=== PATIENT | male | born 1940 | race Caucasian/White ===

== ENCOUNTER → 2017-04-22 | Outpatient (CLI) | payer MEDICARE ==
[~2017-04-22] MED LIST: ACTOS15 MG PO; ALLO300T2 PO; ALLP300T PO; AML5T PO; AMLO10TA82 PO; AMOX-355 PO; AMOX-358 PO; ASP81CT PO; CLPD75T PO; CPM4T PO; CRAN250C PO; EZET1TAB43 PO; EZET1TAB44 PO; GLIM4TAB PO; INDM25C PO; INDO25CA PO; INDO50CA PO; INDOMETHACIN 75 MG PO; INSU100V8; ISM60TCR PO; ISOSORBIDE; LABE300T PO; LSNP20T PO; METF1000 PO; MTF500T PO; MTF500TCR PO; NTR.4SL SL; OMEP20TA2 PO; OMG1KC PO; ONDA4TAB11 PO; PNT40TEC; PNT40TEC PO; RNT150T PO; RSG4T; SAWP1CAP PO; SITA100T PO; SITA1TAB2 PO; VITORIN; [UNRECOGNIZED DRUG - OTHER]; [UNRECOGNIZED DRUG - OTHER]
--- NOTE | 2017-04-22 16:42 | Diagnostic Imaging Report ---
EXAMINATION: Bilateral lower extremity duplex venous ultrasound. TECHNIQUE: DVT protocol. Multiple sonographic images with color Doppler and waveform interrogation were performed of the lower extremity veins, bilaterally, with compression and augmentation maneuvers. INDICATION: Bilateral leg pain. FINDINGS: The lower extremity veins from the common femoral veins to below the knee veins were examined with normal color-flow, compressibility and normal waveform demonstrated. The great saphenous vein bilaterally is patent. IMPRESSION: No evidence of DVT in either lower extremity. Dictated by: Dictated on workstation # [id number]
== END ==
LOC: RAD 15:45
PROVIDERS: ATTEND Family Medicine
DX: M79.661 Pain in right lower leg (principal); M79.662 Pain in left lower leg
CPT/HCPCS: 93970

== ENCOUNTER → 2017-06-24 | Outpatient (CLI) | payer MEDICARE ==
[~2017-06-24] MED LIST changes: +IOHEXOL 350 MG/ML 150 ML (OMNIPAQUE 350) VIAL IV ONE; +NS 100 ML (IVPB) BAG IV ONE
[2017-06-24 10:29] LABS: BLOOD UREA NITROGEN 21 MG/DL (7-18); BUN/CREATININE RATIO 18; CREATININE SERUM 1.14 MG/DL (0.60-1.30); GFR ESTIMATED > 60
--- NOTE | 2017-06-24 11:56 | Diagnostic Imaging Report ---
PROCEDURE: CT angiography of the chest with contrast. TECHNIQUE: Multiple contiguous axial images were obtained through the chest after uneventful bolus administration of intravenous contrast. Reconstructed CTA MIP acquisitions were also performed. INDICATION: Shortness of breath. FINDINGS: There is moderate opacification of the pulmonary arteries. There is breathing motion artifact also involving the lower sections in the lungs. The central pulmonary arteries demonstrate no filling defects to suggest pulmonary embolism. The segmental and subsegmental branches are generally not well evaluated on this exam due to the artifacts explained above. The thoracic aorta is normal in caliber. Post CABG changes are seen. The heart size is normal. No pericardial or pleural effusion. There is no mediastinal mass. No mediastinal or hilar lymphadenopathy is seen. No axillary lymphadenopathy is seen. The lungs demonstrate subsegmental scarring in the superior and basilar segments of the left lower lobe with no significant consolidation, mass or suspicious nodule seen otherwise. These findings are stable from 2011. Sections in the upper abdomen demonstrate diffuse hepatic steatosis and renal cysts seen in the upper pole of the left kidney. The osseous structures demonstrate degenerative change in the thoracic spine and sternotomy changes with nonunion in the upper aspect of the sternum and suggestion of bony bridging and healing of the lower sternum. Sternotomy wires are again seen. IMPRESSION: No central pulmonary embolism. Due to the degree of opacification of the pulmonary arteries and breathing motion artifact, the segmental and subsegmental branches are not well evaluated. Dictated by: Dictated on workstation # [id number]
--- NOTE | 2017-06-25 13:49 | Diagnostic Imaging Report ---
EXAMINATION: Bilateral lower extremity duplex venous ultrasound. TECHNIQUE: DVT protocol. Multiple sonographic images with color Doppler and waveform interrogation were performed of the lower extremity veins, bilaterally, with compression and augmentation maneuvers. INDICATION: Bilateral leg swelling. FINDINGS: The lower extremity veins from the common femoral veins to below the knee veins were examined with normal color-flow, compressibility and normal waveform demonstrated. The great saphenous vein bilaterally is patent. IMPRESSION: No evidence of DVT in either lower extremity. Dictated by: Dictated on workstation # [id number]
== END ==
LOC: RAD 09:57
PROVIDERS: ATTEND Nurse Practitioner Family
DX: M79.89 Other specified soft tissue disorders (principal); J44.9 Chronic obstructive pulmonary disease, unspecified
CPT/HCPCS: 36415; 71275; 82565; 84520; 93970

== ENCOUNTER 2018-04-22 08:02 | Inpatient (IN) | payer MEDICARE ==
[2018-04-22] VITALS (18 sets, daily range): BP systolic 91–171; BP diastolic 80–108
[~2018-04-22] VITALS: Ht 180.3 cm; Wt 107.1 kg
[~2018-04-22 08:02] MED LIST changes: -IOHEXOL 350 MG/ML 150 ML (OMNIPAQUE 350) VIAL IV ONE; -NS 100 ML (IVPB) BAG IV ONE
[2018-04-22] MEDS ORDERED: DEXTROSE 50% 50 ML (IMS) SYR ONE ×2 (08:07→08:59)
--- OUTSIDE RECORDS SUMMARY | 2018-04-22 08:10 | XMS REPORT | Continuity of Care Document ---
Author Author [facility] Organization [facility] Address Unknown Phone Unavailable Allergies Active Description Code Type Severity Reaction Onset Reported/Identified Relationship to Patient Clinical Status Yes carvedilol [id number] Drug Allergy Unknown N/A 02/23/2018 Medications There is no data. 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 07/21/2012 Ot V76.51 SCREEN MAL NEOP-COLON 01/01/2013 PAUL PHAN DO Ot 250.00 DIAB STEVEN WO COMPL, TYPE II OR UNSPEC TY 01/01/2013 PAUL PHAN DO Ot 257.2 TESTICULAR HYPOFUNC NEC 01/01/2013 PAUL PHAN DO Ot 268.9 VITAMIN D DEFICIENCY NOS 01/01/2013 PAUL PHAN DO Ot 272.4 HYPERLIPIDEMIA NEC/NOS 01/01/2013 PAUL PHAN DO Ot 274.9 GOUT NOS 01/01/2013 PAUL PHAN DO Ot 401.9 HYPERTENSION NOS 01/01/2013 PAUL PHAN DO Ot 413.9 ANGINA PECTORIS NEC/NOS 01/01/2013 PAUL PHAN DO Ot 414.00 CORON ATHEROSCLER NOS TYPE VESSEL, NATIV 01/01/2013 PAUL PHAN DO Ot 414.8 CHR ISCHEMIC HRT DIS NEC 01/01/2013 PAUL PHAN DO Ot 433.10 CAROTID ARTERY OCCLUSION W O CEREBRAL IN 01/01/2013 PAUL PHAN DO Ot 530.81 ESOPHAGEAL REFLUX 01/01/2013 PAUL PHAN DO Ot 715.90 OSTEOARTHROS NOS-UNSPEC 01/01/2013 PAUL PHAN DO Ot 729.5 PAIN IN LIMB 01/01/2013 PAUL PHAN DO Ot 786.59 CHEST PAIN NEC 01/01/2013 PAUL PHAN DO, Ot V45.81 AORTOCORONARY BYPASS 01/01/2013 PAUL PHAN DO, Ot V58.67 LONG-TERM (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 OF INSULIN 08/17/2013 HIEU HARKINS DO Ot 715.36 LOC OSTEOARTH NOS-L/LEG 08/17/2013 HIEU HARKINS DO Ot V57.1 PHYSICAL THERAPY NEC 09/20/2013 MILLIE HU, DHRUV Morel Ot 787.01 NAUSEA WITH VOMITING 09/20/2013 MILLIE HU, DHRUV Morel Ot 787.91 DIARRHEA 11/22/2013 PAUL PHAN DO Ot 250.00 DIAB STEVEN WO COMPL, TYPE II OR UNSPEC TY 11/22/2013 PAUL PHAN DO Ot 257.2 TESTICULAR HYPOFUNC NEC 11/22/2013 PAUL PHAN DO Ot 268.9 VITAMIN D DEFICIENCY NOS 11/22/2013 PAUL PHAN DO Ot 272.4 HYPERLIPIDEMIA NEC/NOS 11/22/2013 PAUL PHAN DO Ot 274.9 GOUT NOS 11/22/2013 PAUL PHAN DO Ot 401.9 HYPERTENSION NOS 11/22/2013 PAUL PHAN DO Ot 413.9 ANGINA PECTORIS NEC/NOS 11/22/2013 PAUL PHAN DO Ot 414.00 CORON ATHEROSCLER NOS TYPE VESSEL, NATIV 11/22/2013 PAUL PHAN DO Ot 433.10 CAROTID ARTERY OCCLUSION W O CEREBRAL IN 11/22/2013 PAUL PHAN DO Ot 536.8 STOMACH FUNCTION DIS NEC 11/22/2013 PAUL PHAN DO Ot 715.36 LOC OSTEOARTH NOS-L/LEG 11/22/2013 PAUL PHAN DO Ot 799.02 HYPOXEMIA 11/22/2013 PAUL PHAN DO Ot V45.81 AORTOCORONARY BYPASS 11/22/2013 PAUL PHAN DO Ot V45.82 PERCUTANEOUS TRANSLUM CORON ANGIOPLASTY 11/22/2013 PAUL PHAN DO Ot V58.67 LONG-TERM (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 OF INSULIN 06/13/2014 RODRIGEZ MD, DARIEN Mayes Ot 413.9 06/13/2014 RODRIGEZ MD, DARIEN Mayes Ot V57.89 06/15/2014 DARIEN RODRIGEZ MD Ot 413.9 ANGINA PECTORIS NEC/NOS 06/15/2014 RODRIGEZ MD, DARIEN Mayes Ot V57.89 REHABILITATION PROC NEC 07/25/2014 DORI AGRAWAL TRANSPORTATION ASSISTANT Ot 882.0 OPEN WOUND OF HAND 07/25/2014 DORI AGRAWAL TRANSPORTATION ASSISTANT Ot E000.8 OTHER EXTERNAL CAUSE STATUS 07/25/2014 DORI AGRAWAL TRANSPORTATION ASSISTANT Ot E906.3 ANIMAL BITE NEC 07/25/2014 DORI AGRAWAL TRANSPORTATION ASSISTANT Ot V01.5 RABIES CONTACT 07/25/2014 DORI AGRAWAL TRANSPORTATION ASSISTANT Ot V04.5 VACCIN FOR RABIES 08/12/2014 MARCO CANDELARIO DO Ot 433.30 12/03/2014 MARCO CANDELARIO DO Ot 433.30 05/08/2015 MARCO CANDELARIO DO Ot I73.9 05/12/2015 Ot 428.0 05/12/2015 Ot 440.0 05/12/2015 Ot 443.9 05/12/2015 Ot 440.0 05/12/2015 Ot 414.00 05/12/2015 Ot 530.89 05/12/2015 Ot 793.1 05/12/2015 Ot 729.5 05/12/2015 Ot 782.3 05/12/2015 Ot 564.00 05/12/2015 Ot V72.84 05/12/2015 PAUL PHAN DO Ot 327.23 05/12/2015 PAUL PHAN DO Ot 327.51 05/12/2015 EMILIE DACOSTAPAUL Fabrizio Ot 414.00 05/12/2015 EMILIE DACOSTAPAUL Fabrizio Ot 794.30 05/12/2015 JANEL HU, LUCILLE Dinh Ot 724.02 05/12/2015 ARELYNDER DO, MARCO S Ot 433.30 05/12/2015 ORENDER DO, MARCO S Ot I73.9 05/29/2015 ORENDER DO, MARCO S Ot I73.9 05/29/2015 ORENDER DO, MARCO S Ot I70.203 05/29/2015 ORENDER DO, MARCO S Ot M79.609 06/06/2015 ORENDER DO, MARCO S Ot I73.9 07/27/2015 Ot 428.0 07/27/2015 Ot 440.0 07/27/2015 Ot 443.9 07/27/2015 Ot 440.0 07/27/2015 Ot 414.00 07/27/2015 Ot 530.89 07/27/2015 Ot 793.1 07/27/2015 Ot 729.5 07/27/2015 Ot 782.3 07/27/2015 Ot 564.00 07/27/2015 Ot V72.84 07/27/2015 EMILIE DACOSTA PAUL Fabrizio Ot 327.23 07/27/2015 EMILIE DACOSTA PAUL Fabrizio Ot 327.51 07/27/2015 EMILIE DACOSTAPAUL Fabrizio Ot 414.00 07/27/2015 EMILIE DACOSTA PAUL Fabrizio Ot 794.30 07/27/2015 LUCILLE ISLAS MD Ot 724.02 07/27/2015 ARELYNDER DO, MARCO S Ot 433.30 07/27/2015 ARELYNDER DO, MARCO S Ot I73.9 07/27/2015 ORENDER DO, MARCO S Ot I70.213 08/31/2015 Ot 428.0 08/31/2015 Ot 440.0 08/31/2015 Ot 443.9 08/31/2015 Ot 440.0 08/31/2015 Ot 414.00 08/31/2015 Ot 530.89 08/31/2015 Ot 793.1 08/31/2015 Ot 729.5 08/31/2015 Ot 782.3 08/31/2015 Ot 564.00 08/31/2015 Ot V72.84 08/31/2015 PHAN DOPAUL Ot 327.23 08/31/2015 PHAN DO, PAUL Dinh Ot 327.51 08/31/2015 PHAN DO, PAUL Dinh Ot 414.00 08/31/2015 PHAN DO, PAUL Dinh Ot 794.30 08/31/2015 LUCILLE ISLAS MD Ot 724.02 08/31/2015 ORENDER DO, MARCO S Ot 433.30 08/31/2015 ORENDER DO, MARCO S Ot I73.9 08/31/2015 ORENDER DO, MARCO S Ot I70.213 08/31/2015 ORENDER DO, MARCO S Ot M25.561 08/31/2015 ORENDER DO, MARCO S Ot M25.562 09/01/2015 ORENDER DO, MARCO S Ot M25.561 09/01/2015 ORENDER DO, MARCO S Ot M25.562 09/04/2015 ORENDER DO, MARCO S Ot M25.561 PAIN IN RIGHT KNEE 09/04/2015 ORENDER DO, MARCO S Ot M25.562 PAIN IN LEFT KNEE 09/20/2015 EARNEST LO TRANSPORTATION ASSISTANT Ot J44.9 10/02/2015 EARNEST LO TRANSPORTATION ASSISTANT Ot J44.9 10/25/2015 ORENDER DO, MARCO S Ot I70.213 ATHSCL [place] ARTERIES OF EXTRM W INTRMT 12/29/2015 ARAM VASQUEZ MD Ot Z47.1 AFTERCARE FOLLOWING JOINT REPLACEMENT IRENE 12/29/2015 ARAM VASQUEZ MD Ot Z96.651 PRESENCE OF RIGHT ARTIFICIAL KNEE JOINT 01/11/2016 ARAM VASQUEZ MD Ot Z47.1 AFTERCARE FOLLOWING JOINT REPLACEMENT IRENE 01/11/2016 ARAM VASQUEZ MD Ot Z96.651 PRESENCE OF RIGHT ARTIFICIAL KNEE JOINT 01/23/2016 ARAM VASQUEZ MD Ot Z47.1 AFTERCARE FOLLOWING JOINT REPLACEMENT IRENE 01/23/2016 ARAM VASQUEZ MD Ot Z96.651 PRESENCE OF RIGHT ARTIFICIAL KNEE JOINT 02/11/2016 BRANDEN MEDINA Ot S81.852A OPEN BITE, LEFT LOWER LEG, INITIAL ENCOU 02/11/2016 RON TORRESBRANDEN Ot W54.0XXA BITTEN BY DOG, INITIAL ENCOUNTER 02/11/2016 RON MELISSABRANDEN Ot Y99.8 OTHER EXTERNAL CAUSE STATUS 02/11/2016 RON TORRESBRANDEN Ot Z23 ENCOUNTER FOR IMMUNIZATION 02/13/2016 RON TORRESBRANDEN Ot S81.852A OPEN BITE, LEFT LOWER LEG, INITIAL ENCOU 02/13/2016 RON MELISSABRANDEN Ot W54.0XXA BITTEN BY DOG, INITIAL ENCOUNTER 02/13/2016 RON MELISSABRANDEN Ot Y99.8 OTHER EXTERNAL CAUSE STATUS 02/13/2016 RON MELISSABRANDEN Ot Z23 ENCOUNTER FOR IMMUNIZATION 04/22/2017 MARCO CANDELARIO DO S Ot R22.42 LOCALIZED SWELLING, MASS AND LUMP, LEFT 04/22/2017 Ot 729.5 PAIN IN LIMB 04/22/2017 Ot 782.3 EDEMA 04/22/2017 Ot 564.00 UNSPEC CONSTIPATION 04/22/2017 Ot V72.84 EXAM PRE- OPERATIVE NOS 04/22/2017 PAUL PHAN DO Ot 327.23 OBSTRUCTIVE SLEEP APNEA (ADULT) (PEDIATR 04/22/2017 PAUL PHAN DO Ot 327.51 PERIODIC LIMB MOVEMENT DISORDER 04/22/2017 PAUL PHAN DO Ot 414.00 CORON ATHEROSCLER NOS TYPE VESSEL, NATIV 04/22/2017 PAUL PHAN DO Ot 794.30 ABN CARDIOVASC STUDY NOS 04/22/2017 LUCILLE ISLAS MD Ot 724.02 SPINAL STENOSIS, LUMBAR REG, W/OUT NEURO 04/22/2017 MARCO CANDELARIO DO S Ot 433.30 MULT BILTRAL ARTERY OCCLUSION WO CEREBRA 04/22/2017 MARCO CANDELARIO DO S Ot I73.9 PERIPHERAL VASCULAR DISEASE, UNSPECIFIED 04/22/2017 MARCO CANDELARIO DO S Ot I70.213 ATHSCL [place] ARTERIES OF EXTRM W INTRMT 04/22/2017 EARNEST LO APRN Ot J44.9 CHRONIC OBSTRUCTIVE PULMONARY DISEASE, U 04/22/2017 MARCO CANDELARIO DO S Ot R22.42 LOCALIZED SWELLING, MASS AND LUMP, LEFT 05/14/2017 ORENDER DO, MARCO S Ot M79.661 PAIN IN RIGHT LOWER LEG 05/14/2017 GUILLE CANDELARIO DOLINE S Ot M79.662 PAIN IN LEFT LOWER LEG 05/28/2017 GUILLE CANDELARIO DOLINE S Ot M79.661 PAIN IN RIGHT LOWER LEG 05/28/2017 GUILLE CANDELARIO DOLINE S Ot M79.662 PAIN IN LEFT LOWER LEG 06/24/2017 IVAN AMIN APRN Ot M79.89 OTHER SPECIFIED SOFT TISSUE DISORDERS 06/24/2017 IVAN AMIN APRN Ot M79.89 OTHER SPECIFIED SOFT TISSUE DISORDERS 06/24/2017 Ot 729.5 PAIN IN LIMB 06/24/2017 Ot 782.3 EDEMA 06/24/2017 Ot 564.00 UNSPEC CONSTIPATION 06/24/2017 Ot V72.84 EXAM PRE- OPERATIVE NOS 06/24/2017 PAUL PHAN DO Ot 327.23 OBSTRUCTIVE SLEEP APNEA (ADULT) (PEDIATR 06/24/2017 PAUL PHAN DO Ot 327.51 PERIODIC LIMB MOVEMENT DISORDER 06/24/2017 PAUL PHAN DO Ot 414.00 CORON ATHEROSCLER NOS TYPE VESSEL, NATIV 06/24/2017 PAUL PHAN DO Ot 794.30 ABN CARDIOVASC STUDY NOS 06/24/2017 JANEL HU, LUCILLE Dinh Ot 724.02 SPINAL STENOSIS, LUMBAR REG, W/OUT NEURO 06/24/2017 GUILLE CANDELARIO DOLINE S Ot 433.30 MULT BILTRAL ARTERY OCCLUSION WO CEREBRA 06/24/2017 GUILLE CANDELARIO DOLINE S Ot I73.9 PERIPHERAL VASCULAR DISEASE, UNSPECIFIED 06/24/2017 GUILEL CANDELARIO DOLINE S Ot I70.213 ATHSCL [place] ARTERIES OF EXTRM W INTRMT 06/24/2017 EARNEST LO APRN Ot J44.9 CHRONIC OBSTRUCTIVE PULMONARY DISEASE, U 06/24/2017 GUILLE CANDELARIO DOLINE S Ot M79.661 PAIN IN RIGHT LOWER LEG 06/24/2017 GUILLE CANDELARIO DOLINE S Ot M79.662 PAIN IN LEFT LOWER LEG 06/24/2017 IVAN AMIN APRN Ot M79.89 OTHER SPECIFIED SOFT TISSUE DISORDERS 06/25/2017 BRENNAN, IVAN E TRANSPORTATION ASSISTANT Ot J44.9 CHRONIC OBSTRUCTIVE PULMONARY DISEASE, U 06/25/2017 IVAN AMIN E TRANSPORTATION ASSISTANT Ot M79.89 OTHER SPECIFIED SOFT TISSUE DISORDERS 07/24/2017 IVAN AMIN TRANSPORTATION ASSISTANT Ot J44.9 CHRONIC OBSTRUCTIVE PULMONARY DISEASE, U 07/24/2017 IVAN AMIN E TRANSPORTATION ASSISTANT Ot M79.89 OTHER SPECIFIED SOFT TISSUE DISORDERS 07/30/2017 IVAN AMIN TRANSPORTATION ASSISTANT Ot J44.9 CHRONIC OBSTRUCTIVE PULMONARY DISEASE, U 07/30/2017 IVAN AMIN E TRANSPORTATION ASSISTANT Ot M79.89 OTHER SPECIFIED SOFT TISSUE DISORDERS 02/24/2018 NINAJAYESH Fowler DO Ot E11.9 TYPE 2 DIABETES MELLITUS WITHOUT COMPLIC 02/24/2018 JAYESH WOOD DO Ot I10 ESSENTIAL (PRIMARY) HYPERTENSION 02/24/2018 JAYESH WOOD DO Ot I25.10 ATHSCL HEART DISEASE OF [place] CORONARY 02/24/2018 JAYESH WOOD DO Ot J44.9 CHRONIC OBSTRUCTIVE PULMONARY DISEASE, U 02/24/2018 JAYESH WOOD DO Ot K21.9 GASTRO-ESOPHAGEAL REFLUX DISEASE WITHOUT 02/24/2018 JAYESH WOOD DO Ot M25.512 PAIN IN LEFT SHOULDER 02/24/2018 JAYESH WOOD DO Ot Z79.82 MOLDED PARTS INSPECTOR (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 OF ASPIRIN 02/24/2018 JAYESH WOOD DO Ot Z79.84 MOLDED PARTS INSPECTOR (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 OF ORAL HYPOGLYC 02/24/2018 JAYESH WOOD DO Ot Z85.51 PERSONAL HISTORY OF MALIGNANT NEOPLASM O 02/24/2018 JAYESH WOOD DO Ot Z85.828 PERSONAL HISTORY OF OTHER MALIGNANT NEOP 02/24/2018 JAYESH WOOD DO Ot Z87.891 PERSONAL HISTORY OF NICOTINE DEPENDENCE 02/24/2018 JAYESH WOOD DO Ot Z88.8 ALLERGY STATUS TO OTH DRUG/MEDS/BIOL SUB 02/24/2018 JAYESH WOOD DO Ot Z95.1 PRESENCE OF AORTOCORONARY BYPASS GRAFT 02/25/2018 JAYESH WOOD DO Ot E11.9 TYPE 2 DIABETES MELLITUS WITHOUT COMPLIC 02/25/2018 TATO WOOD DOA Vaishali Ot I10 ESSENTIAL (PRIMARY) HYPERTENSION 02/25/2018 JAYESH WOOD DO Ot I25.10 ATHSCL HEART DISEASE OF [place] CORONARY 02/25/2018 JAYESH WOOD DO Ot J44.9 CHRONIC OBSTRUCTIVE PULMONARY DISEASE, U 02/25/2018 JAYESH WOOD DO Ot K21.9 GASTRO-ESOPHAGEAL REFLUX DISEASE WITHOUT 02/25/2018 JAYESH WOOD DO Ot M25.512 PAIN IN LEFT SHOULDER 02/25/2018 NINA DACOSTA JAYESH Vaishali Ot Z79.82 DETENTION (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 OF ASPIRIN 02/25/2018 NINA DACOSTA JAYESH K Ot Z79.84 DETENTION (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 OF ORAL HYPOGLYC 02/25/2018 NINA DACOSTA JAYESH K Ot Z85.51 PERSONAL HISTORY OF MALIGNANT NEOPLASM O 02/25/2018 NINA DACOSTA JAYESH K Ot Z85.828 PERSONAL HISTORY OF OTHER MALIGNANT NEOP 02/25/2018 NINA DACOSTA JAYESH K Ot Z87.891 PERSONAL HISTORY OF NICOTINE DEPENDENCE 02/25/2018 NINA DACOSTA JAYESH Vaishali Ot Z88.8 ALLERGY STATUS TO OTH DRUG/MEDS/BIOL SUB 02/25/2018 NINA DACOSTA JAYESH Vaishali Ot Z95.1 PRESENCE OF AORTOCORONARY BYPASS GRAFT 03/21/2018 NINA DACOSTA JAYESH Vaishali Ot E11.9 TYPE 2 DIABETES MELLITUS WITHOUT COMPLIC 03/21/2018 NINA DACOSTA JAYESH Vaishali Ot I10 ESSENTIAL (PRIMARY) HYPERTENSION 03/21/2018 NINA DACOSTA JAYESH Tom Ot I25.10 ATHSCL HEART DISEASE OF [place] CORONARY 03/21/2018 JAYESH WOOD DO Ot J44.9 CHRONIC OBSTRUCTIVE PULMONARY DISEASE, U 03/21/2018 JAYESH WOOD DO Ot K21.9 GASTRO-ESOPHAGEAL REFLUX DISEASE WITHOUT 03/21/2018 NINA DACOSTA JAYESH oTm Ot M25.512 PAIN IN LEFT SHOULDER 03/21/2018 NINA DACOSTA JAYESH Vaishali Ot Z79.82 DETENTION (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 OF ASPIRIN 03/21/2018 NINA DACOSTAJAYESH Ot Z79.84 MOLDED PARTS INSPECTOR (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 OF ORAL HYPOGLYC 03/21/2018 NINA DACOSTA JAYESH K Ot Z85.51 PERSONAL HISTORY OF MALIGNANT NEOPLASM O 03/21/2018 NINA TATOA K Ot Z85.828 PERSONAL HISTORY OF OTHER MALIGNANT NEOP 03/21/2018 NINA , JAYESH Tom Ot Z87.891 PERSONAL HISTORY OF NICOTINE DEPENDENCE 03/21/2018 JAYESH WOOD DO Ot Z88.8 ALLERGY STATUS TO OTH DRUG/MEDS/BIOL SUB 03/21/2018 JAYESH WOOD DO Ot Z95.1 PRESENCE OF AORTOCORONARY BYPASS GRAFT Procedures There is no data. Results There is no data. Encounters ACCT No. Visit Date/Time Discharge Status Pt. Type Provider Facility Loc./Unit Complaint [id number] 02/23/2018 23:17:00 02/24/2018 02:38:00 DIS Emergency JAYESH WOOD DO [facility] ER CP [id number] 07/02/2017 14:15:00 07/02/2017 23:59:59 CLS Preadmit IVAN AMIN TRANSPORTATION ASSISTANT [facility] RT J44.9 COPD [id number] 06/24/2017 09:57:00 06/24/2017 23:59:59 CLS Outpatient IVAN AMIN TRANSPORTATION ASSISTANT [facility] RAD J44.9 COPD [id number] 06/24/2017 09:39:00 06/24/2017 23:59:59 CLS Preadmit IVAN AMIN TRANSPORTATION ASSISTANT [facility] RAD M79.89 LEG SWELLING [id number] 04/22/2017 15:45:00 04/22/2017 23:59:59 CLS Outpatient MARCO CANDELARIO DO S [facility] RAD R UPPER THIGH PAIN , L LOWER LEG REDNESS [id number] 02/11/2016 16:55:00 02/11/2016 18:26:00 DIS Emergency BRANDEN MEDINA [facility] ER DOG BITE [id number] 01/15/2016 10:19:00 01/23/2016 15:58:00 DIS Outpatient ARAM VASQUEZ MD [facility] REHAB S/P R TKR [id number] 08/08/2015 08:52:00 09/04/2015 09:38:00 DIS Outpatient MARCO CANDELARIO DO [facility] REHAB BILATERAL KNEE PAIN; INSTABILITY IN R KNEE [id number] 08/31/2015 12:03:00 08/31/2015 23:59:59 CLS Outpatient EARNEST LO TRANSPORTATION ASSISTANT [facility] RAD COUGH,WHEEZING,COPD [id number] 05/12/2015 11:58:00 05/12/2015 23:59:59 CLS Outpatient MARCO CANDELARIO DO S [facility] RAD LEG PAIN WITH DECREASED JOON [id number] 05/04/2015 15:11:00 05/04/2015 23:59:59 CLS Outpatient MARCO CANDELARIO DO S [facility] RAD CLAUDICATION [id number] 08/11/2014 09:59:00 08/11/2014 23:59:59 CLS Outpatient MARCO CANDELARIO DO S [facility] RAD CAROTID ARTERY STENOSIS [id number] 07/25/2014 17:02:00 07/25/2014 18:25:00 DIS Emergency DORI AGRAWAL TRANSPORTATION ASSISTANT [facility] ER ANIMAL BITE RT INDEX FINGER [id number] 06/15/2014 08:32:00 06/15/2014 12:06:00 DIS Outpatient RODRIGEZ MD, DARIEN Mayes [facility] CR STABLE ANGINA [id number] 03/18/2014 09:37:00 03/18/2014 23:59:59 CLS Outpatient LUCILLE ISLAS MD [facility] RAD LUMBAR STENOSIS [id number] 11/21/2013 07:48:00 11/22/2013 12:15:00 DIS Inpatient PAUL PHAN DO [facility] ICU CHEST PAIN [id number] 11/15/2013 06:29:00 11/15/2013 23:59:59 CLS Outpatient PAUL PHAN DO [facility] CARD CAD [id number] 09/20/2013 14:47:00 09/20/2013 17:58:00 DIS Emergency DHRUV PINTO MD [facility] ER VOMITING [id number] 08/11/2013 09:00:00 08/17/2013 14:05:00 DIS Outpatient HIEU HARKINS DO [facility] REHAB DJD R KNEE [id number] 03/11/2013 20:00:00 03/11/2013 23:59:59 CLS Outpatient PAUL PHAN DO [facility] SLEEP TORRIE [id number] 12/31/2012 13:17:00 01/01/2013 12:05:00 DIS Inpatient PAUL PHAN DO [facility] CSD CHEST PAIN [id number] 05/12/2015 11:56:00 Document Registration [id number] 07/21/2012 06:49:00 Document Registration [id number] 07/16/2012 07:20:00 Document Registration [id number] 06/22/2012 16:51:00 Document Registration [id number] 03/11/2012 20:10:00 Document Registration [id number] 02/26/2012 11:53:00 Document Registration [id number] 01/18/2011 08:01:00 Document Registration [id number] 12/31/2010 09:35:00 Document Registration [id number] 12/31/2010 08:53:00 Document Registration [id number] 12/05/2010 08:08:00 Document Registration [id number] 11/21/2010 11:23:00 Document Registration [id number] 10/26/2010 10:55:00 Document Registration [id number] 04/11/2017 12:25:00 04/11/2017 23:59:59 CLS Outpatient PAUL PHAN DO [facility] [id number] 04/06/2018 11:16:43 04/06/2018 23:59:59 CLS Outpatient [id number] 08/13/2014 17:51:14 ACT Document Registration
[2018-04-22] MEDS ORDERED: NS IV 1000 ML 1,000 ML ONE ×2 (08:17→08:29)
[2018-04-22] MEDS ORDERED: NS IV 1000 ML 1,000 ML IV SCH (08:20)
[2018-04-22] MEDS ORDERED: ASPIRIN 81 MG CHEW (CHILDREN'S ASA) ONE (08:25)
[2018-04-22] MEDS ORDERED: HEParin (CATH LAB) 2,000 ML IV ONE (08:29)
[2018-04-22] MEDS ORDERED: HEParin 1000 UNIT/ML (10ML VIAL) FOR BOLUS ONE (08:29)
[2018-04-22] MEDS ORDERED: fentaNYL INJECTION 100 MCG/2 ML AMP ONE (08:29)
[2018-04-22] MEDS ORDERED: NITRO DRIP 25000 MCG/D5W 250 ML IV ONE (08:29)
[2018-04-22] MEDS ORDERED: LIDOCAINE 1% INJ 20 ML 20 ML VIAL ONE (08:29)
[2018-04-22] MEDS ORDERED: MIDAZOLAM 5 MG/5 ML (VERSED) VIAL ONE (08:29)
--- NOTE | 2018-04-22 08:29 | ED General ---
General Stated Complaint: SWEATING;WEAKNESS Source of Information: Patient, Family (son), Spouse Exam Limitations: No Limitations History of Present Illness Date Seen by Provider: Apr 22, 2018 Time Seen by Provider: 08:06 Initial Comments Patient presents to the ER by private conveyance with his and son and chief complaint of weakness sweating and all this came on about 30 minutes ago. He says he had just taken his tradjenta, 38 units and a Martinez bar as he typically does. He also uses glimepiride. He says he usually takes his insulin calls her to noon but today he woke up on time and took it this morning which is unusual for him. He checked his blood sugar is 105 prior to taking the insulin. In the ER it was 43. He is denying any chest pain shortness of breath cough fevers chills runny nose earaches nausea vomiting diarrhea constipation. History of four-vessel CABG in 2001 and 3 stents since then followed by Dr. Ruiz in [place], [place]. Allergies and Home Medications Allergies Coded Allergies: carvedilol (Verified Allergy, Unknown, 02/23/18) Home Medications Amlodipine Besylate 10 Mg Tablet, 10 MG PO HS, (Reported) Amoxicillin/Clavulanate K 1 Each Tablet, 1 TAB PO BID Prescribed by: DORI AGRAWAL on 07/25/141747 Amoxicillin/Potassium Clav 1 Each Tablet, 1 EACH PO BID Prescribed by: BRANDEN VELASQUEZ on 02/11/168 Aspirin 81 Mg Tablet, 81 MG PO HS, (Reported) Clopidogrel 75 Mg Tablet, 75 MG PO DAILY, (Reported) Ezetimibe/Simvastatin 1 Each Tablet, 1 TAB PO QOD @ HS, (Reported) Ezetimibe/Simvastatin 1 Each Tablet, 1 TAB PO QOD @ HS, (Reported) Glimepiride 4 Mg Tablet, 4 MG PO BID, (Reported) Indomethacin 50 Mg Capsule, 50 MG PO HS, (Reported) TAKES 75MG TAB IN THE MORNING AND 50MG CAP IN THE EVENING Isosorbide Mononitrate 60 Mg Tab.sr.24h, 60 MG PO BID, (Reported) Lisinopril 20 Mg Tablet, 20 MG PO BID, (Reported) Metformin Hcl 500 Mg Tablet, 500 MG PO BID, (Reported) Nitroglycerin 0.4 Mg Tab, 0 SL PRN, (Reported) 1 TAB EVERY 5 MINUTES X 3 DOSES NEEDED FOR CHEST PAIN [place] 3 Polyunsat Fatty Acids 1,000 Mg Cap, 1,000 MG PO DAILY, (Reported) Omeprazole 20 Mg Tablet.dr, 20 MG PO DAILY, (Reported) Pantoprazole Sodium 40 Mg Tablet.dr, 40 MG PO DAILY@0700 Prescribed by: PAUL PHAN on 01/01/13 1109 Ranitidine Hcl 150 Mg Tablet, 150 MG PO HS, (Reported) TAKES OMEPRAZOLE IN THE MORNING AND RANITIDINE IN THE EVENING Sawpalmtofrtxt/Zinc Picolinate 1 Each Capsule, 1 CAP PO DAILY, (Reported) Patient Home Medication List Home Medication List Reviewed: Yes Review of Systems Review of Systems Constitutional: No chills; diaphoresis; No fever; malaise, weakness EENTM: No ear discharge, No hearing loss, No ear pain Respiratory: No cough, No dyspnea on exertion Cardiovascular: No chest pain, No edema; Hx of Intervention; No palpitations Gastrointestinal: No abdominal pain, No constipation, No diarrhea Genitourinary: No decreased output, No discharge Musculoskeletal: No back pain, No joint pain Past Ovxmmbe-Tqffuw-Tjdnxd Hx Patient Social History Alcohol Use: Denies Use Recreational Drug Use: No Smoking Status: Former Smoker Type Used: Cigarettes Former Smoker, Quit: Jul 07, 1972 Recent Hopitalizations: No Immunizations Up To Date Tetanus Booster (TDap): Unknown PED Vaccines UTD: No Date of Pneumonia Vaccine: May 07, 2011 Date of Influenza Vaccine: May 07, 2013 Seasonal Allergies Seasonal Allergies: No Past Medical History Surgeries: Yes (SURGERY FOR BLADDER CANCER; CARDIAC CATHS-STENTS X 2 AND CABG) Appendectomy, Bladder Surgery, Cardiac, CABG, Coronary Stent, Gallbladder Respiratory: Yes (O2 AT HS) Sleep Apnea, COPD Currently Using CPAP: No Currently Using BIPAP: No Cardiac: Yes Coronary Artery Disease, Heart Attack, High Cholesterol, Hypertension Neurological: No Reproductive Disorders: No Genitourinary: Yes (BLADDER CANCER) Benign Prostatic Hyperpl Gastrointestinal: Yes (GASTRITIS) Gastroesophageal Reflux, Ulcer Musculoskeletal: Yes (TORN ROTATOR CUFF--NO SURGERY) Arthritis, Gout Endocrine: Yes Diabetes, Insulin dep Cancer: Yes Bladder, Skin Did You Recieve Any Treatments: Yes What Type of Treatment Did You: Surgical Intervention Psychosocial: No Integumentary: Yes (skin cancers) Pruritis Blood Disorders: No Adverse Reaction/Blood Tranf: No Family Medical History Cancer Cataract Chest pain Family history: Cardiovascular disease Family history: Hypertension Visual impairment No Family History of: Abdominal aortic aneurysm Brad's disease Alcoholism Aphasia Cancer of colon Congenital heart disease Congestive heart failure Cystic fibrosis Dementia Dysphagia Family history: Allergy Family history: Alzheimer's disease Family history: Arthritis Family history: Asthma Family history: Breast disease Family history: Coronary thrombosis Family history: Diabetes mellitus Family history: Gastrointestinal disease Family history: Glaucoma Family history: Osteoporosis Family history: Thyroid disorder Headache Hearing loss Heart disease Hereditary disease History of - anemia History of - disorder History of - respiratory disease History of drug abuse Human immunodeficiency virus (HIV) seropositivity Hypercholesterolemia Infertile Kidney disease Malignant neoplasm of lung Myocardial infarction Parkinson's disease Prostate cancer Psychotic disorder Seizure disorder Stroke Tuberculosis No Pertinent Family Hx Physical Exam Vital Signs Capillary Refill : Height, Weight, BMI Height: 5'11.00" Weight: 230lbs. 0.0oz. 104.819977or; 34.55 BMI Method:Stated General Appearance: Anxious, Mild Distress Eyes: Bilateral Eye Normal Inspection, Bilateral Eye PERRL, Bilateral Eye EOMI HEENT: PERRL/EOMI, TMs Normal, Normal ENT Inspection, Pharynx Normal, Moist Mucous Membranes Neck: Full Range of Motion, Normal Inspection, Non Tender, Supple Respiratory: Chest Non Tender, Lungs Clear, Normal Breath Sounds, No Accessory Muscle Use, No Respiratory Distress Cardiovascular: Regular Rate, Rhythm, No Edema, Normal Peripheral Pulses Gastrointestinal: Normal Bowel Sounds, Non Tender, Soft Progress/Results/Core Measures Suspected Sepsis SIRS Temperature: Pulse: Respiratory Rate: Blood Pressure / Mean: Results/Orders Lab Results Laboratory Tests Test 04/22/18 08:09 Range/Units Glucometer 43 *L 70-110 MG/DL My Orders Orders - ZAKIYA HORTON D50w (Emergency) Syringe (Dextrose 50% 5 (04/22/18 08:07) Cbc With Automated Diff (04/22/18 08:16) Comprehensive Metabolic Panel (04/22/18 08:16) Troponin I (04/22/18 08:16) Ua Culture If Indicated (04/22/18 08:16) Chest 1 View, Ap/Pa Only (04/22/18 08:16) Ekg Tracing (04/22/18 08:16) Accucheck Stat ONCE (04/22/18 08:16) D50w (Emergency) Syringe (Dextrose 50% 5 (04/22/18 08:30) Saline Lock/Iv-Start (04/22/18 08:20) Ns Iv 1000 Ml (Sodium Chloride 0.9%) (04/22/18 08:20) Ns Iv 1000 Ml (Sodium Chloride 0.9%) (04/22/18 08:17) Aspirin Chewable Tablet (Baby Aspirin Ch (04/22/18 08:25) Magnesium (04/22/18 08:31) Cardiac Profile 1 (04/22/18 08:31) Myoglobin Serum (04/22/18 08:31) Protime With Inr (04/22/18:) Partial Thromboplastin Time (04/22/18:31) O2 (04/22/18:31) Monitor-Rhythm Ecg Trace Only (04/22/18:31) Lipid Panel (04/23/18 06:00) Aspirin Chewable Tablet (Baby Aspirin Ch (04/22/18 08:45) Saline Lock/Iv-Start (04/22/18 08:31) Ticagrelor Tablet (Brilinta Tablet) (04/22/18 08:31) Heparin Injection (Heparin Injection) (04/22/18 08:45) Lidocaine 1% Inj 20 Ml (Xylocaine 1% Inj (04/22/18 08:29) Fentanyl Injection (Sublimaze Injection (04/22/18 08:29) Midazolam Injection (Versed Injection) (04/22/18 08:29) Heparin (Bolus Per Protocol) (Heparin (B (04/22/18 08:29) Ns Iv 1000 Ml (Sodium Chloride 0.9%) (04/22/18 08:29) Heparin ([facility]) (Heparin ([facility])) (04/22/18 08:29) Nitro Drip 87704 Mcg/D5w (Nitroglycerin (04/22/18 08:29) Saline Lock/Iv-Start (04/22/18 08:42) D5 Ns 1000 Ml Iv Solution (Dextrose 5%/0 (04/22/18 08:42) Vital Signs/I&O Capillary Refill : Progress Note : Time: 08:48 Progress Note Initial suspicion was atypical coronary versus blood sugar. Her blood sugar is obtained showing 43 on arrival so we initiated an IV gave half an amp of D50 and held off giving anything by mouth because of the suspicion of coronary sources. EKG did confirm our suspicion there was a inferior WA. Aspirin, Brilinta and heparin were ordered and given on the way to the catheter lab. Patient's blood pressure is low so liter of fluids was ordered as well as some D5 normal saline ordered 100 cc an hour to maintain blood sugars while he goes to [facility]. ECG Initial ECG Impression Date: Apr 22, 2018 Initial ECG Impression Time: 08:23 Initial ECG Rate: 122 Initial ECG Rhythm: A Fib/Flutter Initial ECG Intervals: QT (513) Initial ECG Impression: Atrial Fibrillation Initial ECG Comparisson: Changed Comment Suspect inferior STEMI with new onset atrial fibrillation. There is ST depression in lateral leads V2 V3 V4 and V5 with some elevation of the ST segment in lead 3, aVR and depression in leads 1 and aVL. Consults Consults : Consulting Physician: Pushpa CHAVARRIA MD Consults Notes Discussed the case and findings suspicious for inferior WA and orders for Brilinta, heparin were given and he will activate the catheter lab. Departure Communication (Admissions) Time/Spoke to Admitting Phy: 08:53 megan took pt to [facility] laboratory diagnostician, Impression Primary Impression: Myocardial infarction acute Qualified Codes: I21.19 - ST elevation (STEMI) myocardial infarction involving other coronary artery of inferior wall Additional Impressions: Atrial fibrillation Qualified Codes: I48.91 - Unspecified atrial fibrillation Hypoglycemia due to type 2 diabetes mellitus Disposition: 01 HOME, SELF-CARE Condition: Stable Admissions Decision to Admit Reason: Admit from ER (General) Decision to Admit/Date: Apr 22, 2018 Time/Decision to Admit Time: 08:53 Departure-Patient Inst. Referrals: PAUL PHAN DO (PCP/Family) Primary Care Physician Copy Copies To 1: PAUL PHAN TITUS J Apr 22, 2018 08:29
[2018-04-22] MEDS ORDERED: DEXTROSE 50% 50 ML (IMS) SYR IV ONE (08:30)
[2018-04-22] MEDS ORDERED: TICAGRELOR 90 MG TABLET (BRILINTA) PO ONE ×2 (08:31→08:43)
[2018-04-22] MEDS ORDERED: D5 NS 1000 ML IV SOLUTION 1,000 ML IV ONE (08:42)
[2018-04-22] MEDS ORDERED: ASPIRIN 81 MG CHEW (CHILDREN'S ASA) PO ONE (08:45)
--- NOTE | 2018-04-22 08:47 | History & Physicial-Cardiolgy ---
HPI-Cardiology Cardiology Consultation: Date of Consultation 04/22/18 Date of Admission Attending Physician Pushpa Ramirez MD Admitting Physician Yuan Andrew DO Consulting Physician Pushpa RAMIREZ MD HPI: Time Seen by a Provider: 08:47 Chief Complaint: Sweating, nausea, chest tightness This is a 77-year-old gentleman who has history of CABG in 2001, PCI with stents in 2002. He follows with Dr. Salinas and cardiology at [facility] in [place]. He does not have previous history of atrial fibrillation. He presented with complains of nausea, sweating, chest tightness. No significant shortness of breath. EKG showed atrial fibrillation with rapid ventricular rate , inferior ST elevation as well as posterior ST elevation. He was emergently taken to the [facility]. Review of Systems-Cardiology Review of Systems Constitutional: As described under HPI; No As described under HPI, No no symptoms reported, No chills, No fever, No lightheadedness; other (sweating) Eyes: No As described under HPI, No no symptoms reported, No blindness, No blurred vision, No contact lenses, No drainage, No decreased acuity, No foreign body sensation, No pain, No vision change Ears/Nose/Throat: No As described under HPI, No no symptoms reported, No chronic hearing loss, No ear discharge, No ear pain, No nasal drainage, No ulcerations Respiratory: No no symptoms reported; As described under HPI; No As described under HPI, No cough, No orthopnea, No shortness of breath, No SOB with excertion Cardiovascular: No no symptoms reported; As described under HPI; No As described under HPI; chest pain; No edema, No irregular heart rate, No lightheadedness, No palpitations Gastrointestinal: No no symptoms reported, No As described under HPI, No abdomen distended, No abdominal pain, No blood streaked bowels, No constipation , No diarrhea, No nausea, No vomiting; nausea/vomiting/diarrhea; No stool coloration changes Genitourinary: No As described under HPI, No burning, No dysuria, No discharge , No frequency, No flank pain, No hematuria, No urgency Skin: No rash, No skin related problems, No ulcerations Psychiatric/Neurological: No anxiety, No depression, No seizure, No focal weakness, No syncope Hematologic: No bleeding abnormalities NXH-Ewuhwe-Syyztn Hx Patient Social History Type Used: Cigarettes Recent Foreign Travel: No Recent Infectious Disease Expo: No Hospitalization with Isolation: Denies Immunizations Up To Date Tetanus Booster (TDap): Unknown Date of Pneumonia Vaccine: May 07, 2011 Date of Influenza Vaccine: May 07, 2013 Past Medical History PMH As described under Assessment. Family Medical History Family History: Cancer Cataract Chest pain Family history: Cardiovascular disease Family history: Hypertension Visual impairment No Family History of: Abdominal aortic aneurysm Brad's disease Alcoholism Aphasia Cancer of colon Congenital heart disease Congestive heart failure Cystic fibrosis Dementia Dysphagia Family history: Allergy Family history: Alzheimer's disease Family history: Arthritis Family history: Asthma Family history: Breast disease Family history: Coronary thrombosis Family history: Diabetes mellitus Family history: Gastrointestinal disease Family history: Glaucoma Family history: Osteoporosis Family history: Thyroid disorder Headache Hearing loss Heart disease Hereditary disease History of - anemia History of - disorder History of - respiratory disease History of drug abuse Human immunodeficiency virus (HIV) seropositivity Hypercholesterolemia Infertile Kidney disease Malignant neoplasm of lung Myocardial infarction Parkinson's disease Prostate cancer Psychotic disorder Seizure disorder Stroke Tuberculosis Allergies and Home Medications Allergies Coded Allergies: carvedilol (Verified Allergy, Unknown, 04/22/18) Home Medications Amlodipine Besylate 10 Mg Tablet, 10 MG PO HS, (Reported) Ascorbate Calcium 500 Mg Tablet, 500 MG PO DAILY, (Reported) Aspirin 81 Mg Tablet.dr, 81 MG PO DAILY, (Reported) Calcium Carb/Mag Ox/Zinc Sulf 1 Each Tablet, 1 TAB PO DAILY, (Reported) Chlordiazepoxide HCl 10 Mg Capsule, 10 MG PO BID PRN for ANXIETY, (Reported) Clopidogrel Bisulfate 75 Mg Tablet, 75 MG PO DAILY, (Reported) Gabapentin 300 Mg Capsule, 300 MG PO HS, (Reported) Ginkgo Biloba Extract 120 Mg Capsule, 120 MG PO DAILY, (Reported) Glimepiride 4 Mg Tablet, 4 MG PO HS, (Reported) Hydrocodone/Acetaminophen 1 Each Tablet, 1 TAB PO Q6H PRN for PAIN-MODERATE, ( Reported) Indomethacin 50 Mg Capsule, 50 MG PO BID, (Reported) Insulin Glargine,Hum.rec.anlog 300 Unit/1 Ml Insuln.pen, 38 UNIT SQ DAILY, ( Reported) Isosorbide Mononitrate 60 Mg Tab, 60 MG PO DAILY, (Reported) Levothyroxine Sodium 50 Mcg Tablet, 50 MCG PO DAILY, (Reported) Lisinopril 20 Mg Tablet, 20 MG PO BID, (Reported) Metformin HCl 500 Mg Tablet, 500 MG PO BID, (Reported) Nitroglycerin 0.4 Mg Tab.subl, 0.4 MG SL UD PRN for CHEST PAIN, (Reported) [place] 3 Polyunsat Fatty Acids 1,000 Mg Cap, 1,000 MG PO DAILY, (Reported) Omeprazole 20 Mg Capsule.dr, 20 MG PO DAILY, (Reported) Potassium Gluconate 99 Mg Tablet, 99 MG PO DAILY, (Reported) Ranitidine HCl 150 Mg Tablet, 150 MG PO HS, (Reported) Simvastatin 20 Mg Tablet, 20 MG PO HS, (Reported) Turmeric Root Extract 538 Mg Capsule, 538 MG PO DAILY, (Reported) [Super Beta Prostate] , 1 TAB PO DAILY, (Reported) Patient Home Medication List Home Medication List Reviewed: Yes Physical Exam-Cardiology Physical Exam Vital Signs/I&O 04/22/18 04/22/18 04/22/18 04/22/18 08:06 08:42 09:09 10:25 Temp 97.9 93.9 Pulse 142 148 118 Resp 22 20 16 B/P (MAP) 92/65 (74) 90/50 (63) 97/80 (86) Pulse Ox 98 98 98 97 O2 Delivery Nasal Cannula Nasal Cannula Nasal Cannula Nasal Cannula O2 Flow Rate 2.00 97.00 2.00 3.00 04/22/18 04/22/18 04/22/18 04/22/18 10:25 10:30 10:30 10:45 Pulse 112 112 98 Resp 16 18 B/P (MAP) 97/80 (86) 97/80 (86) Pulse Ox 97 95 97 O2 Delivery Nasal Cannula Nasal Cannula Nasal Cannula O2 Flow Rate 3.00 3.00 3.00 04/22/18 04/22/18 04/22/18 04/22/18 11:00 11:15 11:30 11:45 Pulse 98 118 105 114 Resp 18 25 16 9 B/P (MAP) 91/83 (86) 151/83 (105) 135/108 (117) Pulse Ox 97 94 98 97 O2 Delivery Nasal Cannula Nasal Cannula Nasal Cannula Nasal Cannula O2 Flow Rate 3.00 3.00 3.00 1.00 04/22/18 04/22/18 04/22/18 04/22/18 12:00 12:00 12:01 13:00 Temp 95.3 Pulse 110 84 Resp 20 B/P (MAP) 134/98 (110) Pulse Ox 98 O2 Delivery Nasal Cannula Nasal Cannula O2 Flow Rate 1.00 3.00 04/22/18 04/22/18 04/22/18 13:00 14:00 15:00 Pulse 116 71 65 Resp 12 24 42 B/P (MAP) 119/103 (108) 115/94 (101) 125/91 (102) Pulse Ox 97 97 O2 Delivery Nasal Cannula Nasal Cannula Nasal Cannula O2 Flow Rate 1.00 1.00 1.00 Capillary Refill : Less Than 3 Seconds Constitutional: No appears stated age; AAO x 3, apparent distress; No PERRL, No well-developed, No well-nourished, No other HEENT: No PERRL, No normal ENT inspection, No TMs normal, No pharynx normal, No scleral icterus (R), No scleral icterus (L), No pale conjunctivae (R), No pale conjunctivae (L), No photophobia, No TM abnormal (R), No TM abnormal (L), No pharyngeal erythema, No tonsillar exudate, No other, No discharge, No EOMI, No hearing is well preserved, No hard of hearing, No oral hygience is good, No ulceration, No xanthelasmas are seen Neck: No non-tender, No full range of motion, No supple, No normal inspection, No carotid bruit, No limited range of motion, No lymphadenopathy (R), No lymphadenopathy (L), No tender lateral, No tender midline, No thyromegaly, No other, No carotid pulses are 2 + bilaterally, No with good upstrokes Respiratory: No accessory muscle use, No respiratory distress, No chest tender , No chest expansion is symmetric; chest is bilaterally symmetric; No lungs clear to percussion; lungs clear to auscultation; No crackles, No rhonchi, No rales, No stridor, No wheezing, No pleural rub, No other Cardiovascular: No regular rate-rhythm; irregularly irregular; No extra beats, No parasternal heave is noted, No JVD, No edema, No bradycardia; tachycardia; No point of maximal impulse, No cardiac thrills are palpable; S1 and S2; No gallop/S3, No gallop/S4, No diastolic murmur, No systolic murmur, No friction rub, No click, No other Gastrointestinal: No tender, No soft, No round, No distended, No pulsatile mass , No organomegaly, No guarding, No rebound, No tenderness, No hernia, No mass, No audible bowel sounds, No abnormal bowel sounds, No abdominal bruits, No spleenomegaly, No other Rectal: deferred Extremities: No normal range of motion, No non-tender, No normal inspection, No pedal edema, No calf tenderness, No normal capillary refill, No pelvis stable , No calf tenderness, No inflammation, No pedal edema, No slow capillary refill , No swelling, No other, No abrasion, No clubbing, No cyanosis, No ecchymosis, No laceration, No no lower extremity edema bilateral, No significant edema, No tenderness, No wound Neurologic/Psychiatric: no motor/sensory deficits, alert, normal mood/affect, oriented x 3 Skin: No normal color, No warm/dry, No cyanosis, No cool, No diaphoresis, No damp, No ecchymosis, No jaundice, No mottled, No pallor, No rash, No tattoos/ piercings, No ulcerations, No rash on exposed areas, No ulcerations on exposed areas, No other Lymphatic: No no adenopathy, No axilla node tender (R), No axilla node tender ( L), No inguinal node tender (R), No inguinal node tender (L), No other Data Review Labs Laboratory Tests 04/22/18 08:09: Glucometer 43*L 04/22/18 08:41: White Blood Count 11.9H, Red Blood Count 4.88, Hemoglobin 14.0, Hematocrit 40, Mean Corpuscular Volume 82, Mean Corpuscular Hemoglobin 29, Mean Corpuscular Hemoglobin Concent 35, Red Cell Distribution Width 15.5H, Platelet Count 204, Mean Platelet Volume 11.0H, Neutrophils (%) (Auto) 71, Lymphocytes (%) (Auto) 14 , Monocytes (%) (Auto) 10, Eosinophils (%) (Auto) 4, Basophils (%) (Auto) 0, Neutrophils # (Auto) 8.5H, Lymphocytes # (Auto) 1.7, Monocytes # (Auto) 1.2H, Eosinophils # (Auto) 0.5H, Basophils # (Auto) 0.0, Prothrombin Time 13.6, INR Comment 1.0, Activated Partial Thromboplast Time 29, Sodium Level 139, Potassium Level 3.0L, Chloride Level 104, Carbon Dioxide Level 20L, Anion Gap 15H, Blood Urea Nitrogen 19H, Creatinine 1.17, Estimat Glomerular Filtration Rate > 60, BUN/Creatinine Ratio 16, Glucose Level 105, Calcium Level 9.3, Corrected Calcium 8.9, Magnesium Level 2.0, Total Bilirubin 0.5, Aspartate Amino Transf (AST/SGOT) 26, Alanine Aminotransferase (ALT/SGPT) 27, Alkaline Phosphatase 50, Myoglobin 205.8H, Troponin I < 0.30, Total Protein 7.2, Albumin 4.5 ECG Impression ECG Initial ECG Impression: Atrial Fibrillation w/RVR, Acute ME A/P-Cardiology Assessment/Admission Diagnosis Atrial fibrillation with rapid ventricular rate, Acute inferior posterior STEMI, Cardiogenic shock requiring inotropes, Diabetes, Hypoglycemia, Hypokalemia Admission Status: Inpatient Order (span 2 midnights) Reason for Inpatient Admission: Acute STEMI, new onset atrial fibrillation Plan Acute inferior posterior STEMI, emergent coronary angiography and possible PCI is recommended. Bolus aspirin, Brilinta, 5000 units of intravenous heparin. Atrial fibrillation with rapid ventricular rate: Give IV heparin. Will require Eliquis later. Hyperglycemia: D50 bolus. Will defer management of diabetes to internal medicine. I have requested a consultation from Dr. Jennings. Hypokalemia: Aggressive potassium supplementation. Will defer to Dr. Jennings. Critically ill patient. Pushpa RAMIREZ MD Apr 22, 2018 08:47
[2018-04-22 08:48] LABS: BASOPHILS % (AUTO) 0 % (0-10); EOSINOPHILS # (AUTO) 0.5 10^3/uL (0.0-0.3); EOSINOPHILS % (AUTO) 4 % (0-10); HEMATOCRIT 40 % (40-54); LYMPHOCYTES # (AUTO) 1.7 X 10^3 (1.0-4.0); LYMPHOCYTES % (AUTO) 14 % (12-44); MEAN CORPUSCULAR HEMOGLOBIN 29 PG (25-34); MEAN CORPUSCULAR HGB CONC 35 G/DL (32-36); MEAN CORPUSCULAR VOLUME 82 FL (80-99); MONOCYTES # (AUTO) 1.2 X 10^3 (0.0-1.0); MONOCYTES % (AUTO) 10 % (0-12); NEUTROPHILS # (AUTO) 8.5 X 10^3 (1.8-7.8); NEUTROPHILS % (AUTO) 71 % (42-75); PLATELET COUNT 204 10^3/uL (130-400); RED BLOOD COUNT 4.88 10^6/uL (4.35-5.85); RED CELL DISTRIBUTION WIDTH 15.5 % (10.0-14.5); WHITE BLOOD COUNT 11.9 10^3/uL (4.3-11.0)
--- OUTSIDE RECORDS SUMMARY | 2018-04-22 08:58 | XMS REPORT | Continuity of Care Document ---
Author Author [facility] Organization [facility] Address Unknown Phone Unavailable Allergies Active Description Code Type Severity Reaction Onset Reported/Identified Relationship to Patient Clinical Status Yes carvedilol [id number] Drug Allergy Unknown N/A 02/23/2018 Medications There [...] V57.89 REHABILITATION PROC NEC 07/25/2014 DORI AGRAWAL PLANTING MACHINE OPERATOR Ot 882.0 OPEN WOUND OF HAND 07/25/2014 DORI AGRAWAL PLANTING MACHINE OPERATOR Ot E000.8 OTHER EXTERNAL CAUSE STATUS 07/25/2014 DORI AGRAWAL PLANTING MACHINE OPERATOR Ot E906.3 ANIMAL BITE NEC 07/25/2014 DORI AGRAWAL PLANTING MACHINE OPERATOR Ot V01.5 RABIES CONTACT 07/25/2014 DORI AGRAWAL PLANTING MACHINE OPERATOR Ot V04.5 VACCIN FOR RABIES 08/12/2014 MARCO [...] PAIN IN LEFT KNEE 09/20/2015 EARNEST LO PLANTING MACHINE OPERATOR Ot J44.9 10/02/2015 EARNEST LO PLANTING MACHINE OPERATOR Ot J44.9 10/25/2015 ORENDER DO, MARCO S Ot I70.213 ATHSCL [place] ARTERIES OF EXTRM W INTRMT 12/29/2015 ARAM [...] Ot V72.84 EXAM PRE- OPERATIVE NOS 04/22/2017 PALU PHAN DO Ot 327.23 OBSTRUCTIVE SLEEP APNEA [...] MARCO CANDELARIO DO S Ot I70.213 ATHSCL [place] ARTERIES OF EXTRM W INTRMT 04/22/2017 EARNEST [...] Ot I73.9 PERIPHERAL VASCULAR DISEASE, UNSPECIFIED 06/24/2017 GUILLE CANDELARIO DOLINE S Ot I70.213 ATHSCL [place] ARTERIES OF EXTRM W INTRMT 06/24/2017 EARNEST LO APRN Ot J44.9 CHRONIC OBSTRUCTIVE PULMONARY DISEASE, U 06/24/2017 GUILLE CANDELARIO DOLINE S Ot M79.661 PAIN IN RIGHT LOWER LEG 06/24/2017 GUILLE CANDELARIO DOLINE S Ot M79.662 PAIN IN LEFT LOWER LEG 06/24/2017 IVAN AMIN APRN Ot M79.89 OTHER SPECIFIED SOFT TISSUE DISORDERS 06/25/2017 BRENNAN, IVAN E PLANTING MACHINE OPERATOR Ot J44.9 CHRONIC OBSTRUCTIVE PULMONARY DISEASE, U 06/25/2017 IVAN AMIN E PLANTING MACHINE OPERATOR Ot M79.89 OTHER SPECIFIED SOFT TISSUE DISORDERS 07/24/2017 IVAN AMIN PLANTING MACHINE OPERATOR Ot J44.9 CHRONIC OBSTRUCTIVE PULMONARY DISEASE, U 07/24/2017 IVAN AMIN E PLANTING MACHINE OPERATOR Ot M79.89 OTHER SPECIFIED SOFT TISSUE DISORDERS 07/30/2017 IVAN AMIN PLANTING MACHINE OPERATOR Ot J44.9 CHRONIC OBSTRUCTIVE PULMONARY DISEASE, U 07/30/2017 IVAN AMIN E PLANTING MACHINE OPERATOR Ot M79.89 OTHER SPECIFIED SOFT TISSUE DISORDERS 02/24/2018 NINAJAYESH Fowler DO Ot E11.9 TYPE 2 DIABETES MELLITUS WITHOUT COMPLIC 02/24/2018 JAYESH WOOD DO Ot I10 ESSENTIAL (PRIMARY) HYPERTENSION 02/24/2018 JAYESH WOOD DO Ot I25.10 ATHSCL HEART DISEASE OF [place] CORONARY 02/24/2018 JAYESH WOOD DO Ot J44.9 CHRONIC OBSTRUCTIVE PULMONARY DISEASE, U 02/24/2018 JAYESH WOOD DO Ot K21.9 GASTRO-ESOPHAGEAL REFLUX DISEASE WITHOUT 02/24/2018 JAYESH WOOD DO Ot M25.512 PAIN IN LEFT SHOULDER 02/24/2018 JAYESH WOOD DO Ot Z79.82 SVP OF DIGITAL (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 OF ASPIRIN 02/24/2018 JAYESH WOOD DO Ot Z79.84 SVP OF DIGITAL (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 OF ORAL HYPOGLYC 02/24/2018 JAYESH [...] DO Ot I25.10 ATHSCL HEART DISEASE OF [place] CORONARY 02/25/2018 JAYESH WOOD DO Ot J44.9 CHRONIC OBSTRUCTIVE PULMONARY DISEASE, U 02/25/2018 JAYESH WOOD DO Ot K21.9 GASTRO-ESOPHAGEAL REFLUX DISEASE WITHOUT 02/25/2018 JAYESH WOOD DO Ot M25.512 PAIN IN LEFT SHOULDER 02/25/2018 NINA DACOSTA JAYESH Vaishali Ot Z79.82 MCC (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 OF ASPIRIN 02/25/2018 NINA DACOSTA JAYESH K Ot Z79.84 MCC (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 OF ORAL HYPOGLYC 02/25/2018 NINA [...] Tom Ot I25.10 ATHSCL HEART DISEASE OF [place] CORONARY 03/21/2018 JAYESH WOOD DO Ot J44.9 CHRONIC OBSTRUCTIVE PULMONARY DISEASE, U 03/21/2018 JAYESH WOOD DO Ot K21.9 GASTRO-ESOPHAGEAL REFLUX DISEASE WITHOUT 03/21/2018 NINA DACOSTA JAYESH Tom Ot M25.512 PAIN IN LEFT SHOULDER 03/21/2018 NINA DACOSTA JAYESH Vaishali Ot Z79.82 MCC (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 OF ASPIRIN 03/21/2018 NINA DACOSTAJAYESH Ot Z79.84 SVP OF DIGITAL (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 OF ORAL HYPOGLYC 03/21/2018 NINA [...] Status Pt. Type Provider Facility Loc./Unit Complaint [id number] 02/23/2018 23:17:00 02/24/2018 02:38:00 DIS Emergency JAYESH WOOD DO [facility] ER CP [id number] 07/02/2017 14:15:00 07/02/2017 23:59:59 CLS Preadmit IVAN AMIN PLANTING MACHINE OPERATOR [facility] RT J44.9 COPD [id number] 06/24/2017 09:57:00 06/24/2017 23:59:59 CLS Outpatient IVAN AMIN PLANTING MACHINE OPERATOR [facility] RAD J44.9 COPD [id number] 06/24/2017 09:39:00 06/24/2017 23:59:59 CLS Preadmit IVAN AMIN PLANTING MACHINE OPERATOR [facility] RAD M79.89 LEG SWELLING [id number] 04/22/2017 15:45:00 04/22/2017 23:59:59 CLS Outpatient MARCO CANDELARIO DO S [facility] RAD R UPPER THIGH PAIN , L LOWER LEG REDNESS [id number] 02/11/2016 16:55:00 02/11/2016 18:26:00 DIS Emergency BRANDEN MEDINA [facility] ER DOG BITE [id number] 01/15/2016 10:19:00 01/23/2016 15:58:00 DIS Outpatient ARAM VASQUEZ MD [facility] REHAB S/P R TKR [id number] 08/08/2015 08:52:00 09/04/2015 09:38:00 DIS Outpatient MARCO CANDELARIO DO [facility] REHAB BILATERAL KNEE PAIN; INSTABILITY IN R KNEE [id number] 08/31/2015 12:03:00 08/31/2015 23:59:59 CLS Outpatient EARNEST LO PLANTING MACHINE OPERATOR [facility] RAD COUGH,WHEEZING,COPD [id number] 05/12/2015 11:58:00 05/12/2015 23:59:59 CLS Outpatient MARCO CANDELARIO DO S [facility] RAD LEG PAIN WITH DECREASED JOON [id number] 05/04/2015 15:11:00 05/04/2015 23:59:59 CLS Outpatient MARCO CANDELARIO DO S [facility] RAD CLAUDICATION [id number] 08/11/2014 09:59:00 08/11/2014 23:59:59 CLS Outpatient MARCO ACNDELARIO DO S [facility] RAD CAROTID ARTERY STENOSIS [id number] 07/25/2014 17:02:00 07/25/2014 18:25:00 DIS Emergency DORI AGRAWAL PLANTING MACHINE OPERATOR [facility] ER ANIMAL BITE RT INDEX FINGER [id number] 06/15/2014 08:32:00 06/15/2014 12:06:00 DIS Outpatient RODRIGEZ MD, DARIEN Mayes [facility] CR STABLE ANGINA [id number] 03/18/2014 09:37:00 03/18/2014 23:59:59 CLS Outpatient LUCLILE ISLAS MD [facility] RAD LUMBAR STENOSIS [id number] 11/21/2013 07:48:00 11/22/2013 12:15:00 DIS Inpatient PAUL PHAN DO [facility] ICU CHEST PAIN [id number] 11/15/2013 06:29:00 11/15/2013 23:59:59 CLS Outpatient PAUL PHAN DO [facility] CARD CAD [id number] 09/20/2013 14:47:00 09/20/2013 17:58:00 DIS Emergency DHRUV PINTO MD [facility] ER VOMITING [id number] 08/11/2013 09:00:00 08/17/2013 14:05:00 DIS Outpatient HIEU HARKINS DO [facility] REHAB DJD R KNEE [id number] 03/11/2013 20:00:00 03/11/2013 23:59:59 CLS Outpatient PAUL PHAN DO [facility] SLEEP TORRIE [id number] 12/31/2012 13:17:00 01/01/2013 12:05:00 DIS Inpatient PAUL PHAN DO [facility] CSD CHEST PAIN [id number] 05/12/2015 11:56:00 Document Registration [id number] 07/21/2012 06:49:00 Document Registration [id number] 07/16/2012 07:20:00 Document Registration [id number] 06/22/2012 16:51:00 Document Registration [id number] 03/11/2012 20:10:00 Document Registration [id number] 02/26/2012 11:53:00 Document Registration [id number] 01/18/2011 08:01:00 Document Registration [id number] 12/31/2010 09:35:00 Document Registration [id number] 12/31/2010 08:53:00 Document Registration [id number] 12/05/2010 08:08:00 Document Registration [id number] 11/21/2010 11:23:00 Document Registration [id number] 10/26/2010 10:55:00 Document Registration [id number] 04/11/2017 12:25:00 04/11/2017 23:59:59 CLS Outpatient PAUL PHAN DO [facility] [id number] 04/06/2018 11:16:43 04/06/2018 23:59:59 CLS Outpatient [id number] 08/13/2014 17:51:14 ACT Document Registration
[2018-04-22 08:59] LABS: PROTHROMBIN TIME PATIENT 13.6 SEC (12.2-14.7)
[2018-04-22] MEDS ORDERED: PHENYLEPHRINE INJ 10 MG/ML (NEO-SYNEPHRINE 1%) ONE (09:09)
[2018-04-22 09:10] LABS: ALANINE AMINOTRANSFERASE 27 U/L (0-55); ALBUMIN 4.5 GM/DL (3.2-4.5); ALKALINE PHOSPHATASE 50 U/L (40-136); BILIRUBIN,TOTAL 0.5 MG/DL (0.1-1.0); BUN/CREATININE RATIO 16; CALCIUM 9.3 MG/DL (8.5-10.1); CARBON DIOXIDE 20 MMOL/L (21-32); CHLORIDE 104 MMOL/L (98-107); CREATININE SERUM 1.17 MG/DL (0.60-1.30); GFR ESTIMATED > 60; GLUCOSE 105 MG/DL (70-105); SODIUM 139 MMOL/L (135-145); TOTAL PROTEIN 7.2 GM/DL (6.4-8.2)
[2018-04-22 09:17] LABS: MYOGLOBIN SERUM 205.8 NG/ML (10.0-92.0)
[2018-04-22] MEDS ORDERED: POTASSIUM CL 10MEQ/50ML IVPB 50 ML IV ONE (09:17)
[2018-04-22] MEDS ORDERED: PHENYLEPHRINE INJ 10 MG/ML (NEO-SYNEPHRINE 1%) IV ONE (09:45)
[2018-04-22] MEDS ORDERED: PHENYLEPHRINE 10 MG/NS 250 ML IV ONE ×2 (10:00)
[2018-04-22] MEDS ORDERED: KCL 20 MEQ TAB (K-DUR) PO NR (11:15)
--- NOTE | 2018-04-22 11:36 | Coronary Angiography Report ---
Coronary Angiography Report DATE OF PROCEDURE: 04/22/18 INDICATION: Acute Inferior-posterior STEMI, Cardiogenic shock. PREOPERATIVE DIAGNOSIS: Acute Inferior-posterior STEMI, Cardiogenic shock. POSTOPERATIVE DIAGNOSIS: Patent 4 grafts with no acute occlusion identified, Cardiogenic shock on inotropes, AF with RVR. HISTORY: His is a 77-year-old gentleman with previous history of CABG and PCI. He presented with nausea, sweating and chest tightness. He was found to be significantly hypoglycemic. EKG showed inferior, posterior ST elevation with atrial fibrillation with rapid ventricular rate. Therefore, the patient was scheduled for emergent coronary angiography. PROCEDURES PERFORMED: 1.Coronary angiography. 2.Left heart catheterization. 3. Aortic arch angiography. 4. Vein graft angiography. 5. RUVALCABA injection. COMPLICATIONS: None. SPECIMENS: None. ESTIMATED BLOOD LOSS: 10 mL ANESTHESIA: Conscious sedation ANTICOAGULATION: IV heparin CONTRAST: 156 ml. FLUOROSCOPY: FLOUROSCOPY DOSE: [id number] mgy. PROCEDURE DETAILS: The patient is a 77 male and was brought to the laboratory associate after informed consent was taken. All the risks and complications were explained in detail; this included the risk of bleeding, vascular damage, stroke , NC and even . The patient was draped and prepped in the usual sterile fashion. Access was gained in the right renal artery with a 6 Uzbek sheath. Right coronary angiography was performed with a JR4 catheter. SVG to the RPDA and to the first diagonal were engaged with a JR4 catheter. RUVALCABA injection was performed with a JR4 catheter. SVG to the OM 2 artery was done with a LCB catheter, aortic arch angiogram and left heart catheterization was performed with a pigtail catheter, left main was engaged with the JL4 catheter. FINDINGS: 1.Left main: Occluded at the ostium. 2.LAD: Severely calcified. D1 is supplied by SVG and mid/distal is supplied by RUVALCABA graft. Mild to moderate diffuse disease in the distal LAD. 3.Left circumflex artery: Severely calcified. OM is supplied by a patent SVG. 4.RCA: Severe diffuse disease. RPDA is supplied by a SVG. 5.Left heart catheterization: Aortic pressure 56/38 mmHg. IV fluid bolus was given and then neosynpherine infusion was started. Aortic pressure improved to 91/61 mmHg. LV pressure 73/6 mmHg. LVEDP 11 mmHg. LVEF 40 percent with inferior hypokinesis. No gradient across the aortic valve. 7. Aortic arch angiogram: No evidence of dissection or aneurysm. Patent proximal segment of the great arteries including brachycephalic artery, common carotid artery, left subclavian artery. Faint filling of the SVG to RPDA and SVG to D1. SVG to OM was not visualized. 8. SVG to RPDA: Mild diffuse disease with no significant stenosis. Mild diffuse disease in the RPDA after the distal anastomotic site. 9. SVG to D1: Patent graft with no significant disease in the D1 artery. It fills the LAD which is occluded both in the proximal and mid section. 10. SVG to OM: Patent graft with no significant distal disease in the OM artery. No significant backfilling of the AV groove artery is noted. 11. RUVALCABA to the mid LAD: Patent with no significant anastomotic disease. Mild to moderate diffuse disease in the distal LAD is noted. 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 Patent RUVALCABA to the LAD, patent saphenous vein grafts to OM, D1, RPDA. Atrial fibrillation with rapid ventricular rate., Cardiogenic shock with systolic blood pressure of 60 mmHg requiring IV fluids and Inotropes - improved systolic BP at the end of the procedure, therefore, IABP not placed. No acute occlusion noted. ST elevation could be secondary to small vessel disease which could not be evaluated with angiography. Was discussed at length with the patient and family. Patient will be admitted to the ICU. Medicine consultation for severe hypoglycemia. Potassium supplementation for severe hypokalemia. Will require Plavix, Eliquis long-term. Liliane Ramirez MD, FACP, FACC, [facility] Interventional Cardiology Pushpa RAMIREZ MD Apr 22, 2018 11:36 am
--- NOTE | 2018-04-22 11:43 | Consultation-Hospitalist ---
KEKE CISSE DO 04/22/18 1143: HPI History of Present Illness: HPI/Chief Complaint CC: STEMI HPI: This is a 77yoWM clinic patient of Dr Andrew and has seen Dr Bettencourt for second opinion for his leg pain recently who presented to the ER with chest pain and arrived in the ER and noted STEMI and was taken to catheterization laboratory technician and underwent intervention with good results. Pt has been having some chest pain on/ off and has a h/o CABG and has seen Dr Chand in the past but cannot drive all the way to the [place] so he has not been seen for a few months for the on/off chest pain. Source: patient, family ( Gretchen) Date Seen 04/22/18 Attending Physician Pushpa Ramirez MD PCP Yuan nAdrew DO Referring Physician Pushpa RAMIREZ MD Date of Admission Home Medications & Allergies Home Medications Reviewed patient Home Medication Reconciliation performed by pharmacy medication reconciliations cardiac catheterization technician and/or nursing. Patients Allergies have been reviewed. Allergies Allergies Coded Allergies carvedilol (Verified Allergy, Unknown, 04/22/18) Past Kkuclnr-Dxjffm-Qbuclp Hx Past Med/Social Hx: Reviewed Nursing Past Med/Soc Hx, Reviewed and Corrections made Patient Social History Marrital Status: Employed/Student: retired Alcohol Use: Occasionally Uses Number of Drinks Today: 0 Recreational Drug Use: No Smoking Status: Former Smoker Former Smoker, Quit: Jul 07, 1972 Type Used: Cigarettes Physical Abuse Screen: No Sexual Abuse: No Recent Foreign Travel: No Contact w/other who traveled: No Recent Hopitalizations: No Recent Infectious Disease Expo: No Immunizations Up To Date Tetanus Booster (TDap): Unknown Pediatric: No Date of Pneumonia Vaccine: May 07, 2011 Date of Influenza Vaccine: Apr 21, 2018 Seasonal Allergies Seasonal Allergies: No Past Medical History Surgeries: Appendectomy, Bladder Surgery, Cardiac, CABG, Coronary Stent, Gallbladder Currently Using CPAP: No Currently Using BIPAP: No Cardiac: Coronary Artery Disease, Heart Attack, High Cholesterol, Hypertension Reproductive: No Genitourinary: Benign Prostatic Hyperpl Gastrointestinal: Gastroesophageal Reflux, Ulcer Musculoskeletal: Arthritis, Gout Endocrine: Diabetes, Insulin dep Are Your Blood Sugars Over 250: No Cancer: Bladder, Skin Did You Recieve Any Treatments: Yes What Type of Treatment Did You: Chemotherapy, Surgical Intervention Skin/Integumentary: Pruritis History of Blood Disorders: No Adverse Reaction to Blood Ordoñez: No Family History Completed stroke 19 FATHER Diabetes mellitus 19 MOTHER SON No Pertinent Family Hx Review of Systems Constitutional: see HPI, diaphoresis EENTM: no symptoms reported Respiratory: dyspnea on exertion Cardiovascular: chest pain, edema, palpitations Gastrointestinal: no symptoms reported Genitourinary: no symptoms reported Musculoskeletal: no symptoms reported Skin: no symptoms reported Psychiatric/Neurological: No Symptoms Reported All Other Systems Reviewed Negative Unless Noted: Yes Physical Exam Physical Exam Vital Signs Vital Signs - First Documented 04/22/18 08:06 Temp 97.9 Pulse 142 Resp 22 B/P (MAP) 92/65 (74) Pulse Ox 98 O2 Delivery Nasal Cannula O2 Flow Rate 2.00 Capillary Refill : Less Than 3 Seconds Height, Weight, BMI Height: 5'11.00" Weight: 244lbs. 8.0oz. 110.158945po; 34.1 BMI Method:Stated General Appearance: No Apparent Distress, WD/WN, Chronically ill, Obese Eyes: Bilateral Eye Normal Inspection, Bilateral Eye PERRL HEENT: PERRL/EOMI, Normal ENT Inspection, Pharynx Normal Neck: Full Range of Motion, Normal Inspection, Non Tender, Supple, Carotid Bruit Respiratory: Chest Non Tender, Lungs Clear, Normal Breath Sounds, No Accessory Muscle Use, No Respiratory Distress Cardiovascular: Regular Rate, Rhythm, No Edema, No Gallop, No JVD, No Murmur, Normal Peripheral Pulses Gastrointestinal: Normal Bowel Sounds, No Organomegaly, No Pulsatile Mass, Non Tender, Soft Back: Normal Inspection, No CVA Tenderness, No Vertebral Tenderness Extremity: Normal Capillary Refill, Normal Inspection, Normal Range of Motion, Non Tender, No Calf Tenderness, No Pedal Edema Neurologic/Psychiatric: Alert, Oriented x3, No Motor/Sensory Deficits, Normal Mood/Affect Skin: Normal Color, Warm/Dry Lymphatic: No Adenopathy Results Results/Procedures Labs Laboratory Tests 04/22/18 08:41 Patient resulted labs reviewed. Assessment/Plan Assessment and Plan Assess & Plan/Chief Complaint Assessment: Acute STEMI s/p intervention AF w/RVR Known CAD w/CABG hx DM HTN HLP Chronic leg pain Obesity Hypoglycemia Hypokalemia Plan: Potassium replacement Home meds Antiplatelet meds Will follow with you Diagnosis/Problems Diagnosis/Problems (1) NSTEMI (non-ST elevated myocardial infarction) Status: Acute Assessment & Plan: NSTEMI by EKG Troponin in ED negative Myoglobin pos PCI by Dr. 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 insulin use: with retirement use Diabetes mellitus complication status: with circulatory complication Diabetes mellitus complication detail: with other circulatory complications Qualified Codes: E11.59 - Type 2 diabetes mellitus with other circulatory complications; Z79.4 - emt intermediate (current) use of insulin (5) Urinary retention Status: Acute Assessment & Plan: Likely BPH Rx Tamsulosin PRN (6) Hx of CABG (7) CAD (coronary artery disease) (8) Obesity Status: Chronic Qualifiers: Obesity type: due to excess calories Obesity classification: adult class 1 (BMI 30 - 34.9) Serious obesity comorbidity presence: with serious comorbidity Body mass index: BMI 34.0-34.9 Qualified Codes: E66.09 - Other obesity due to excess calories; Z68.34 - Body mass index (bmi) 34.0-34.9, adult (9) Hypoxia Status: Chronic Assessment & Plan: Uses O2 at night (10) Hypoglycemia due to type 2 diabetes mellitus Status: Acute Clinical Quality Measures DVT/VTE Risk/Contraindication: Risk Factor Score Per Nursin RFS Level Per Nursing on Admit: 4+=Very High JACQUE QUIROZ MEDICAL STUDENT 04/22/18 1707: HPI History of Present Illness: HPI/Chief Complaint CC: Diaphoresis PCP: Kamran Sheng is a 77 yo WM with a hx DM, CAD, stenting x2, and CABGx4 who presented to the ED after awaking with notable diaphoresis and L arm pain which began just after taking his morning Trajenta. He did not experience any pains in his chest. At the urging of his he sought ED evaluation. In ED, he was found to EKG changes suggestive of inferior wall STEMI. Was subsequently transported to the catheterization laboratory technician for PCI. IM consulted for management of DM and hypokalemia. Dual antiplatelet therapy. Per records denied having a hx of Afib. Prior stents were placed by Dr. Ramires [facility] in [place]. Before that, catheterized by Dr. Schmidt in 2010. Prior CABG performed 13 years ago. Source: patient, family ( Gretchen) Past Bokfjhv-Bsabnm-Qgjyba Hx Patient Social History Alcohol Use: Occasionally Uses Recreational Drug Use: No Type Used: Cigarettes Physical Abuse Screen: No Sexual Abuse: No Recent Foreign Travel: No Contact w/other who traveled: No Recent Hopitalizations: No Recent Infectious Disease Expo: No Immunizations Up To Date Pediatric: No Seasonal Allergies Seasonal Allergies: No Past Medical History Surgeries: Appendectomy, Bladder Surgery, Cardiac, CABG, Coronary Stent, Gallbladder Currently Using CPAP: No Currently Using BIPAP: No Cardiac: Coronary Artery Disease, Heart Attack, High Cholesterol, Hypertension Reproductive: No Genitourinary: Benign Prostatic Hyperpl Gastrointestinal: Gastroesophageal Reflux Musculoskeletal: Arthritis, Gout Endocrine: Diabetes, Insulin dep Are Your Blood Sugars Over 250: No Cancer: Bladder, Skin Did You Recieve Any Treatments: Yes What Type of Treatment Did You: Chemotherapy, Surgical Intervention History of Blood Disorders: No Adverse Reaction to Blood Ordoñez: No Family History Reviewed Nursing Family Hx Completed stroke 19 FATHER Diabetes mellitus 19 MOTHER SON Review of Systems Constitutional: diaphoresis; No fever, No weakness Respiratory: No cough, No short of breath, No wheezing Cardiovascular: No chest pain, No edema, No palpitations Gastrointestinal: No abdominal pain, No constipation, No diarrhea All Other Systems Reviewed Negative Unless Noted: Yes Physical Exam Physical Exam General Appearance: No Apparent Distress, WD/WN Neck: Full Range of Motion, Normal Inspection, Non Tender, Supple, Carotid Bruit Respiratory: Chest Non Tender, Lungs Clear, Normal Breath Sounds, No Accessory Muscle Use, No Respiratory Distress Cardiovascular: No Edema, No Gallop, No Murmur, Normal Peripheral Pulses, Extra Beats Gastrointestinal: Normal Bowel Sounds, No Organomegaly, No Pulsatile Mass, Non Tender, Soft Extremity: Normal Capillary Refill, Normal Inspection, Normal Range of Motion, No Calf Tenderness Neurologic/Psychiatric: Alert, Oriented x3 Skin: Normal Color, Warm/Dry Diagnosis/Problems Diagnosis/Problems (1) NSTEMI (non-ST elevated myocardial infarction) Status: Acute Assessment & Plan: NSTEMI by EKG Troponin in ED negative Myoglobin pos PCI by Dr. 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
[2018-04-22] MEDS ORDERED: PATIENT MAY USE OWN MEDS, ALL PO SCH (11:45)
[2018-04-22] MEDS: NS IV 1000 ML 1,000 ML IV SCH ×2 (12:33→22:29)
[2018-04-22] MEDS: APIXABAN 5 MG (ELIQUIS) TABLET PO SCH ×2 (12:33→21:48)
[2018-04-22] MEDS ORDERED: meTOprolol TARTRATE 25 MG (LOPRESSOR) TABLET PO NR (12:45)
[2018-04-22] MEDS ORDERED: AMIODARONE FOR BOLUS 150 MG in D5W 100 ML IVPB 100 ML IV NR (13:30)
[2018-04-22] MEDS ORDERED: AMIODARONE INJECTION 450 MG in D5W IV SOLUTION (EXCEL) 250 ML IV SCH (13:30)
[2018-04-22] MEDS ORDERED: RANI150T11 PO (15:07)
[2018-04-22] MEDS ORDERED: POTA99TA21 PO (15:07)
[2018-04-22] MEDS ORDERED: INSU300I SQ (15:07)
[2018-04-22] MEDS ORDERED: GLIM4TAB PO (15:07)
[2018-04-22] MEDS ORDERED: GABA-490 PO (15:07)
[2018-04-22] MEDS ORDERED: AMLO10TA6 PO (15:07)
[2018-04-22] MEDS ORDERED: OMEP20CA12 PO (15:07)
[2018-04-22] MEDS ORDERED: TURM538C PO (15:07)
[2018-04-22] MEDS ORDERED: SIMV40TA4 PO (15:07)
[2018-04-22] MEDS ORDERED: LISI-552 PO (15:07)
[2018-04-22] MEDS ORDERED: ASPI-983 PO (15:07)
[2018-04-22] MEDS ORDERED: OMG1KC PO (15:07)
[2018-04-22] MEDS ORDERED: ASCO-262 PO (15:07)
[2018-04-22] MEDS ORDERED: METF-397 PO (15:07)
[2018-04-22] MEDS ORDERED: INDO75CA3 PO (15:07)
[2018-04-22] MEDS ORDERED: SUPER BETA PROSTATE PO (15:07)
[2018-04-22] MEDS ORDERED: CALC-927 PO (15:07)
[2018-04-22] MEDS ORDERED: GINK120C PO (15:07)
[2018-04-22] MEDS ORDERED: CLOP75TA28 PO (15:07)
[2018-04-22] MEDS ORDERED: NITR0.4T42 SL (15:29)
[2018-04-22] MEDS ORDERED: INDO50CA11 PO (15:58)
[2018-04-22] MEDS ORDERED: SIMV20TA3 PO (15:58)
[2018-04-22] MEDS ORDERED: GABA-488 PO (15:58)
[2018-04-22] MEDS ORDERED: CHLO10CA6 PO (15:58)
[2018-04-22] MEDS ORDERED: ISM60TCR PO (15:58)
[2018-04-22] MEDS ORDERED: HYDR-3820 PO (15:58)
[2018-04-22] MEDS ORDERED: LEVO50TA6 PO (15:58)
[2018-04-22] MEDS: inSUlin ASPART (NovoLOG) 1 UNIT/0.01 ML (CHARGE PER UNIT) SC SCH ×2 (16:23→21:49)
[2018-04-22] MEDS ORDERED: CHLORDIAZEPOXIDE HCL 10 MG PO PRN (21:15)
[2018-04-22] MEDS ORDERED: NITROGLYCERIN 0.4 MG SL TABS BTL 25'S SL PRN (21:15)
[2018-04-22] MEDS ORDERED: lisINopril 20 MG (PRINIVIL) TABLET PO ONE (21:15)
[2018-04-22] MEDS ORDERED: lisINopril 20 MG (PRINIVIL) TABLET ONE (21:40)
[2018-04-22] MEDS ORDERED: HYDROcodone/APAP 10 MG/325 MG (LORTAB) TAB PO ONE (21:41)
[2018-04-22] MEDS: HYDROcodone/APAP 10 MG/325 MG (LORTAB) TAB PO PRN (21:49)
[2018-04-22 22:00] LABS: ALANINE AMINOTRANSFERASE 27 U/L (0-55); ALBUMIN 3.9 GM/DL (3.2-4.5); ALKALINE PHOSPHATASE 44 U/L (40-136); BILIRUBIN,TOTAL 0.4 MG/DL (0.1-1.0); BUN/CREATININE RATIO 16; CALCIUM 8.4 MG/DL (8.5-10.1); CARBON DIOXIDE 19 MMOL/L (21-32); CHLORIDE 107 MMOL/L (98-107); CREATININE SERUM 1.01 MG/DL (0.60-1.30); GFR ESTIMATED > 60; GLUCOSE 206 MG/DL (70-105); SODIUM 136 MMOL/L (135-145); TOTAL PROTEIN 6.1 GM/DL (6.4-8.2)
[2018-04-23] VITALS (9 sets, daily range): BP systolic 109–160; BP diastolic 53–96
[2018-04-23 03:11] LABS: HEMOGLOBIN 13.3 G/DL (13.3-17.7); MEAN PLATELET VOLUME 11.1 FL (7.4-10.4); RED BLOOD COUNT 4.79 10^6/uL (4.35-5.85); RED CELL DISTRIBUTION WIDTH 16.3 % (10.0-14.5); WHITE BLOOD COUNT 7.2 10^3/uL (4.3-11.0)
[2018-04-23 03:30] LABS: BUN/CREATININE RATIO 14; CALCIUM 8.7 MG/DL (8.5-10.1); CARBON DIOXIDE 18 MMOL/L (21-32); CHLORIDE 108 MMOL/L (98-107); CHOLESTEROL 141 MG/DL (< 200); CREATININE SERUM 1.01 MG/DL (0.60-1.30); GFR ESTIMATED > 60; GLUCOSE 204 MG/DL (70-105); HDL CHOLESTEROL 50 MG/DL (40-60); MAGNESIUM 1.9 MG/DL (1.8-2.4); SODIUM 138 MMOL/L (135-145); TRIGLYCERIDES 112 MG/DL (<150); VLDL CHOLESTEROL 22 MG/DL (5-40)
[2018-04-23] MEDS ORDERED: MAGNESIUM 1 GM/100 ML IVPB 100 ML IV SCH (06:00)
[2018-04-23] MEDS ORDERED: KCL 20 MEQ TAB (K-DUR) PO SCH (06:00)
[2018-04-23] MEDS ORDERED: POTASSIUM CL 10MEQ/50ML IVPB 50 ML IV SCH (06:00)
[2018-04-23] MEDS: inSUlin ASPART (NovoLOG) 1 UNIT/0.01 ML (CHARGE PER UNIT) SC SCH ×4 (06:35→20:43)
[2018-04-23] MEDS: NS IV 1000 ML 1,000 ML IV SCH (07:46)
[2018-04-23] MEDS: PANTOPRAZOLE 20 MG TABLET (PROTONIX) PO SCH (07:46)
[2018-04-23] MEDS: OMEGA 3 (FISH OIL) 1000 MG CAP PO SCH (08:40)
[2018-04-23] MEDS: LEVOTHYROXINE 50 MCG (LEVOTHROID) TAB PO SCH (08:40)
[2018-04-23] MEDS: lisINopril 20 MG (PRINIVIL) TABLET PO SCH ×2 (08:41→20:21)
[2018-04-23] MEDS: CLOPIDOGREL 75 MG (PLAVIX) TABLET PO SCH (08:41)
[2018-04-23] MEDS: ISOSORBIDE MONONITRATE 60 MG (IMDUR) TAB PO SCH (08:41)
[2018-04-23] MEDS: ASPIRIN E.C. 81 MG (ECOTRIN) TAB PO SCH (08:41)
[2018-04-23] MEDS: APIXABAN 5 MG (ELIQUIS) TABLET PO SCH ×2 (08:42→20:21)
[2018-04-23] MEDS ORDERED: OMEPRAZOLE 20 MG (PriLOSEC) CAP NON-FORMULARY PO SCH (09:00)
[2018-04-23] MEDS ORDERED: CLOPIDOGREL 75 MG (PLAVIX) TABLET PO SCH (09:00)
[2018-04-23] MEDS ORDERED: INSULIN GLARGINE HUM REC ANLOG 38 UNIT SQ SCH (09:00)
[2018-04-23] MEDS ORDERED: lisINopril 20 MG (PRINIVIL) TABLET PO SCH (09:00)
[2018-04-23] MEDS ORDERED: [UNRECOGNIZED DRUG - OTHER] SQ SCH (09:00)
[2018-04-23] MEDS: NON-FORMULARY MEDICATION 1 EA EA (Potassium Gluconate (Potassium) 99 MG) PO SCH (09:24)
--- OUTSIDE RECORDS SUMMARY | 2018-04-23 09:40 | XMS REPORT | Continuity of Care Document ---
Author Author [facility] Organization [facility] Address Unknown Phone Unavailable Allergies Active Description Code Type Severity Reaction Onset Reported/Identified Relationship to Patient Clinical Status Yes carvedilol [id number] Drug Allergy Unknown N/A 02/23/2018 Medications There [...] DO Ot 272.4 HYPERLIPIDEMIA NEC/NOS 11/22/2013 PAUL PHNA DO Ot 274.9 GOUT NOS 11/22/2013 PAUL [...] V57.89 REHABILITATION PROC NEC 07/25/2014 [employer]ORI [employer] Ot 882.0 OPEN WOUND OF HAND 07/25/2014 [employer] Ot E000.8 OTHER EXTERNAL CAUSE STATUS 07/25/2014 [employer] Ot E906.3 ANIMAL BITE NEC 07/25/2014 [employer] Ot V01.5 RABIES CONTACT 07/25/2014 [employer] Ot V04.5 VACCIN FOR RABIES 08/12/2014 MARCO [...] PAIN IN LEFT KNEE 09/20/2015 [employer]ARNEST [employer] Ot J44.9 10/02/2015 [employer] Ot J44.9 10/25/2015 ORENDER DO, MARCO S Ot I70.213 ATHSCL [place] ARTERIES OF EXTRM W INTRMT 12/29/2015 ARAM [...] MARCO CANDELARIO DO S Ot I70.213 ATHSCL [place] ARTERIES OF EXTRM W INTRMT 04/22/2017 EARNEST [...] GUILLE CANDELARIO DOLINE S Ot I70.213 ATHSCL [place] ARTERIES OF EXTRM W INTRMT 06/24/2017 EARNEST LO APRN Ot J44.9 CHRONIC OBSTRUCTIVE PULMONARY DISEASE, U 06/24/2017 GUILLE CANDELARIO DOLINE S Ot M79.661 PAIN IN RIGHT LOWER LEG 06/24/2017 GUILLE CANDELARIO DOLINE S Ot M79.662 PAIN IN LEFT LOWER LEG 06/24/2017 IVAN AMIN APRN Ot M79.89 OTHER SPECIFIED SOFT TISSUE DISORDERS 06/25/2017 BRENNAN, IVAN E [employer] Ot J44.9 CHRONIC OBSTRUCTIVE PULMONARY DISEASE, U 06/25/2017 IVAN AMIN E [employer] Ot M79.89 OTHER SPECIFIED SOFT TISSUE DISORDERS 07/24/2017 IVAN [employer] Ot J44.9 CHRONIC OBSTRUCTIVE PULMONARY DISEASE, U 07/24/2017 IVAN AMIN E [employer] Ot M79.89 OTHER SPECIFIED SOFT TISSUE DISORDERS 07/30/2017 IVAN [employer] Ot J44.9 CHRONIC OBSTRUCTIVE PULMONARY DISEASE, U 07/30/2017 IVAN AMIN E [employer] Ot M79.89 OTHER SPECIFIED SOFT TISSUE DISORDERS 02/24/2018 NINAJAYESH Fowler DO Ot E11.9 TYPE 2 DIABETES MELLITUS WITHOUT COMPLIC 02/24/2018 JAYESH WOOD DO Ot I10 ESSENTIAL (PRIMARY) HYPERTENSION 02/24/2018 JAYESH WOOD DO Ot I25.10 ATHSCL HEART DISEASE OF [place] CORONARY 02/24/2018 JAYESH WOOD DO Ot J44.9 CHRONIC OBSTRUCTIVE PULMONARY DISEASE, U 02/24/2018 JAYESH WOOD DO Ot K21.9 GASTRO-ESOPHAGEAL REFLUX DISEASE WITHOUT 02/24/2018 JAYESH WOOD DO Ot M25.512 PAIN IN LEFT SHOULDER 02/24/2018 JAYESH WOOD DO Ot Z79.82 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 (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 OF ASPIRIN 02/24/2018 JAYESH WOOD DO Ot Z79.84 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 MANAGER (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 OF ORAL HYPOGLYC 02/24/2018 JAYESH [...] DO Ot I25.10 ATHSCL HEART DISEASE OF [place] CORONARY 02/25/2018 JAYESH WOOD DO Ot J44.9 CHRONIC OBSTRUCTIVE PULMONARY DISEASE, U 02/25/2018 JAYESH WOOD DO Ot K21.9 GASTRO-ESOPHAGEAL REFLUX DISEASE WITHOUT 02/25/2018 JAYESH WOOD DO Ot M25.512 PAIN IN LEFT SHOULDER 02/25/2018 NINA DACOSTA JAYESH Vaishali Ot Z79.82 ASSISTED (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 OF ASPIRIN 02/25/2018 NINA DACOSTA JAYESH K Ot Z79.84 ASSISTED (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 OF ORAL HYPOGLYC 02/25/2018 NINA [...] Tom Ot I25.10 ATHSCL HEART DISEASE OF [place] CORONARY 03/21/2018 JAYESH WOOD DO Ot J44.9 CHRONIC OBSTRUCTIVE PULMONARY DISEASE, U 03/21/2018 JAYESH WOOD DO Ot K21.9 GASTRO-ESOPHAGEAL REFLUX DISEASE WITHOUT 03/21/2018 NINA DACOSTA JAYESH Tom Ot M25.512 PAIN IN LEFT SHOULDER 03/21/2018 NINA DACOSTA JAYESH Vaishali Ot Z79.82 ASSISTED (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 OF ASPIRIN 03/21/2018 NINA DACOSTAJAYESH Ot Z79.84 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 MANAGER (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 OF ORAL HYPOGLYC 03/21/2018 NINA [...] Status Pt. Type Provider Facility Loc./Unit Complaint [id number] 02/23/2018 23:17:00 02/24/2018 02:38:00 DIS Emergency JAYESH WOOD DO [facility] ER CP [id number] 07/02/2017 14:15:00 07/02/2017 23:59:59 CLS Preadmit IVAN AMIN [employer] [facility] RT J44.9 COPD [id number] 06/24/2017 09:57:00 06/24/2017 23:59:59 CLS Outpatient IVAN AMIN [employer] [facility] RAD J44.9 COPD [id number] 06/24/2017 09:39:00 06/24/2017 23:59:59 CLS Preadmit IVAN AMIN [employer] [facility] RAD M79.89 LEG SWELLING [id number] 04/22/2017 15:45:00 04/22/2017 23:59:59 CLS Outpatient MARCO CANDELARIO DO S [facility] RAD R UPPER THIGH PAIN , L LOWER LEG REDNESS [id number] 02/11/2016 16:55:00 02/11/2016 18:26:00 DIS Emergency BRANDEN MEDINA [facility] ER DOG BITE [id number] 01/15/2016 10:19:00 01/23/2016 15:58:00 DIS Outpatient ARAM VASQUEZ MD [facility] REHAB S/P R TKR [id number] 08/08/2015 08:52:00 09/04/2015 09:38:00 DIS Outpatient MARCO CANDELARIO DO [facility] REHAB BILATERAL KNEE PAIN; INSTABILITY IN R KNEE [id number] 08/31/2015 12:03:00 08/31/2015 23:59:59 CLS Outpatient [employer]NEST [employer] [facility] RAD COUGH,WHEEZING,COPD [id number] 05/12/2015 11:58:00 05/12/2015 23:59:59 CLS Outpatient MARCO CANDELARIO DO S [facility] RAD LEG PAIN WITH DECREASED JOON [id number] 05/04/2015 15:11:00 05/04/2015 23:59:59 CLS Outpatient MARCO CANDELARIO DO S [facility] RAD CLAUDICATION [id number] 08/11/2014 09:59:00 08/11/2014 23:59:59 CLS Outpatient MARCO CANDELARIO DO S [facility] RAD CAROTID ARTERY STENOSIS [id number] 07/25/2014 17:02:00 07/25/2014 18:25:00 DIS Emergency DORI [employer] [facility] ER ANIMAL BITE RT INDEX FINGER [id number] 06/15/2014 08:32:00 06/15/2014 12:06:00 DIS Outpatient RODRIGEZ MD, DARIEN Mayes [facility] CR STABLE ANGINA [id number] 03/18/2014 09:37:00 03/18/2014 23:59:59 CLS Outpatient LUCILLE ISLAS MD [facility] RAD LUMBAR STENOSIS [id number] 11/21/2013 07:48:00 11/22/2013 12:15:00 DIS Inpatient PAUL PHAN DO [facility] ICU CHEST PAIN [id number] 11/15/2013 06:29:00 11/15/2013 23:59:59 CLS Outpatient PAUL PHAN DO [facility] CARD CAD [id number] 09/20/2013 14:47:00 09/20/2013 17:58:00 DIS Emergency DHRUV PINTO MD [facility] ER VOMITING [id number] 08/11/2013 09:00:00 08/17/2013 14:05:00 DIS Outpatient HIEU HARKINS DO [facility] REHAB DJD R KNEE [id number] 03/11/2013 20:00:00 03/11/2013 23:59:59 CLS Outpatient PAUL PHAN DO [facility] SLEEP TORRIE [id number] 12/31/2012 13:17:00 01/01/2013 12:05:00 DIS Inpatient PAUL PHAN DO [facility] CSD CHEST PAIN [id number] 05/12/2015 11:56:00 Document Registration [id number] 07/21/2012 06:49:00 Document Registration [id number] 07/16/2012 07:20:00 Document Registration [id number] 06/22/2012 16:51:00 Document Registration [id number] 03/11/2012 20:10:00 Document Registration [id number] 02/26/2012 11:53:00 Document Registration [id number] 01/18/2011 08:01:00 Document Registration [id number] 12/31/2010 09:35:00 Document Registration [id number] 12/31/2010 08:53:00 Document Registration [id number] 12/05/2010 08:08:00 Document Registration [id number] 11/21/2010 11:23:00 Document Registration [id number] 10/26/2010 10:55:00 Document Registration [id number] 04/11/2017 12:25:00 04/11/2017 23:59:59 CLS Outpatient PAUL PHAN DO [facility] [id number] 04/06/2018 11:16:43 04/06/2018 23:59:59 CLS Outpatient [id number] 08/13/2014 17:51:14 ACT Document Registration
--- NOTE | 2018-04-23 11:28 | Progress Note-Hospitalist ---
Subjective HPI/CC On Admission Date Seen by Provider: Apr 23, 2018 Time Seen by Provider: 10:00 CC: STEMI HPI: This is a 77yoWM clinic patient of Dr Andrew and has seen Dr Bettencuort for second opinion for his leg pain recently who presented to the ER with chest pain and arrived in the ER and noted STEMI and was taken to labor relations or personnel negotiator and underwent intervention with good results. Pt has been having some chest pain on/ off and has a h/o CABG and has seen Dr Chand in the past but cannot drive all the way to the [employer] so he has not been seen for a few months for the on/off chest pain. Subjective/Events-last exam Hypokalemia resolved Hypoglycemia resolved Patient takes his diabetic medication exactly how he once it and doesn't want me to change anything Overall feeling well Atrial fibrillation controlled Review of Systems General: Fatigue Objective Exam Vital Signs Vital Signs Date Time Temp Pulse Resp B/P (MAP) Pulse Ox O2 Delivery O2 Flow Rate FiO2 04/23/18 08:53 98.6 04/23/18 08:00 Room Air 04/23/18 07:00 64 04/23/18 06:00 15 160/96 (117) 96 1.00 Capillary Refill : Less Than 3 Seconds General Appearance: No Apparent Distress, WD/WN, Chronically ill, Obese Respiratory: Chest Non Tender, Lungs Clear, Normal Breath Sounds, No Accessory Muscle Use, No Respiratory Distress Cardiovascular: No Edema, No Gallop, No JVD, No Murmur, Normal Peripheral Pulses, Irregularly Irregular Neurologic/Psychiatric: Alert, Oriented x3, No Motor/Sensory Deficits, Normal Mood/Affect Results/Procedures Lab Laboratory Tests 04/22/18 21:33 04/23/18 02:57 Patient resulted labs reviewed. Assessment/Plan Assessment and Plan Assess & Plan/Chief Complaint Assessment: Acute STEMI s/p intervention AF w/RVR Known CAD w/CABG hx DM HTN HLP Chronic leg pain Obesity Hypoglycemia Hypokalemia Plan: Potassium replacement was successful Home meds Antiplatelet meds Will follow with you Diagnosis/Problems Diagnosis/Problems (1) NSTEMI (non-ST elevated myocardial infarction) Status: Acute Assessment & Plan: NSTEMI by EKG Troponin in ED negative Myoglobin pos PCI by Dr. Ramirez Dual-antiplatelet therapy (2) Atrial fibrillation Status: Acute Assessment & Plan: Supposedly new onset A-fib Anticoagulation Qualifiers: Atrial fibrillation type: unspecified Qualified Codes: I48.91 - Unspecified atrial fibrillation (3) Hypokalemia Status: Resolved Assessment & Plan: Fluids Potassium supplementation (4) Diabetes mellitus, type 2 Status: Chronic Assessment & Plan: Sliding scale insulin therapy Qualifiers: Diabetes mellitus halfway insulin use: with intermediate manager use Diabetes mellitus complication status: with circulatory complication Diabetes mellitus complication detail: with other circulatory complications Qualified Codes: E11.59 - Type 2 diabetes mellitus with other circulatory complications; Z79.4 - exterminator (current) use of insulin (5) Urinary retention Status: Acute Assessment & Plan: Likely BPH Rx Tamsulosin PRN (6) Hx of CABG (7) CAD (coronary artery disease) (8) Obesity Status: Chronic Qualifiers: Obesity type: due to excess calories Obesity classification: adult class 1 (BMI 30 - 34.9) Serious obesity comorbidity presence: with serious comorbidity Body mass index: BMI 34.0-34.9 Qualified Codes: E66.09 - Other obesity due to excess calories; Z68.34 - Body mass index (bmi) 34.0-34.9, adult (9) Hypoxia Status: Chronic Assessment & Plan: Uses O2 at night (10) Hypoglycemia due to type 2 diabetes mellitus Status: Acute Clinical Quality Measures DVT/VTE Risk/Contraindication: Risk Factor Score Per Nursin RFS Level Per Nursing on Admit: 4+=Very High KKEE CISSE DO Apr 23, 2018 11:28
[2018-04-23] MEDS: HYDROcodone/APAP 10 MG/325 MG (LORTAB) TAB PO PRN (14:09)
--- NOTE | 2018-04-23 15:38 | Cardiology Progress Note ---
Cardiology SOAP Progress Note Subjective: No cardiac symptoms. Objective: I&O/Vital Signs 04/23/18 04/23/18 04/23/18 04/23/18 04:00 04:00 05:00 06:00 Pulse 70 62 71 Resp 10 14 15 B/P (MAP) 140/81 (100) 120/53 (75) 160/96 (117) Pulse Ox 94 95 96 O2 Delivery Room Air Nasal Cannula Nasal Cannula Nasal Cannula O2 Flow Rate 1.00 1.00 1.00 04/23/18 04/23/18 04/23/18 04/23/18 07:00 08:00 08:53 12:45 Temp 98.6 98.6 Pulse 64 67 Resp 18 B/P (MAP) 122/74 (90) Pulse Ox 96 O2 Delivery Room Air Room Air 04/23/18 13:00 Pulse 64 04/23/18 00:00 Intake Total 2100 ml Output Total 1350 ml Balance 750 ml Weight (Pounds): 243 Weight (Ounces): 2.0 Weight (Calculated Kilograms): [id number] Constitutional: No appears stated age; AAO x 3, apparent distress; No PERRL, No well-developed, No well-nourished, No other Respiratory: No accessory muscle use, No respiratory distress, No chest tender , No chest expansion is symmetric; chest is bilaterally symmetric; No lungs clear to percussion; lungs clear to auscultation; No crackles, No rhonchi, No rales, No stridor, No wheezing, No pleural rub, No other Cardiovascular: regular rate-rhythm; No irregularly irregular, No extra beats, No parasternal heave is noted, No JVD, No edema, No bradycardia; tachycardia; No point of maximal impulse, No cardiac thrills are palpable; S1 and S2; No gallop/S3, No gallop/S4, No diastolic murmur, No systolic murmur, No friction rub, No click, No other Gastrointestional: No tender, No soft, No round, No distended, No pulsatile mass, No organomegaly, No guarding, No rebound, No tenderness, No hernia, No mass, No audible bowel sounds, No abnormal bowel sounds, No abdominal bruits, No spleenomegaly, No other Extremities: No normal range of motion, No non-tender, No normal inspection, No pedal edema, No calf tenderness, No normal capillary refill, No pelvis stable , No calf tenderness, No inflammation, No pedal edema, No slow capillary refill , No swelling, No other, No abrasion, No clubbing, No cyanosis, No ecchymosis, No laceration, No no lower extremity edema bilateral, No significant edema, No tenderness, No wound Neurologic/Psychiatric: no motor/sensory deficits, alert, normal mood/affect, oriented x 3 Skin: No normal color, No warm/dry, No cyanosis, No cool, No diaphoresis, No damp, No ecchymosis, No jaundice, No mottled, No pallor, No rash, No tattoos/ piercings, No ulcerations, No rash on exposed areas, No ulcerations on exposed areas, No other Results/Procedures: Labs Laboratory Tests 04/22/18 16:16: Glucometer 213H 04/22/18 21:33: Sodium Level 136, Potassium Level 4.0, Chloride Level 107, Carbon Dioxide Level 19L, Anion Gap 10, Blood Urea Nitrogen 16, Creatinine 1.01, Estimat Glomerular Filtration Rate > 60, BUN/Creatinine Ratio 16, Glucose Level 206H, Calcium Level 8.4L, Corrected Calcium 8.5, Total Bilirubin 0.4, Aspartate Amino Transf ( AST/SGOT) 64H, Alanine Aminotransferase (ALT/SGPT) 27, Alkaline Phosphatase 44, Troponin I 9.07*H, B-Type Natriuretic Peptide 188.6H, Total Protein 6.1L, Albumin 3.9 04/22/18 21:39: Glucometer 183H 04/23/18 01:46: Glucometer 49*L 04/23/18 02:07: Glucometer 76 04/23/18 02:29: Glucometer 132H 04/23/18 02:57: White Blood Count 7.2, Red Blood Count 4.79, Hemoglobin 13.3, Hematocrit 40, Mean Corpuscular Volume 83, Mean Corpuscular Hemoglobin 28, Mean Corpuscular Hemoglobin Concent 34, Red Cell Distribution Width 16.3H, Platelet Count 198, Mean Platelet Volume 11.1H, Sodium Level 138, Potassium Level 4.0, Chloride Level 108H, Carbon Dioxide Level 18L, Anion Gap 12, Blood Urea Nitrogen 14, Creatinine 1.01, Estimat Glomerular Filtration Rate > 60, BUN/Creatinine Ratio 14, Glucose Level 204H, Calcium Level 8.7, Magnesium Level 1.9, Troponin I 8.11* H, Triglycerides Level 112, Cholesterol Level 141, LDL Cholesterol Direct 73, VLDL Cholesterol 22, HDL Cholesterol 50 04/23/18 06:23: Glucometer 144H 04/23/18 11:09: Glucometer 242H Microbiology 04/22/18 MRSA Screen - Final, Complete MRSA not isolated A/P: Assessment/Dx: Atrial fibrillation with rapid ventricular rate, converted to sinus rhythm. Acute inferior posterior STEMI, Cardiogenic shock requiring inotropes, resolved Diabetes, Hypoglycemia, Hypokalemia Plan: Acute inferior posterior STEMI, emergent coronary angiography , severe stebbins disease. Patent grafts. No PCI done. Atrial fibrillation with rapid ventricular rate: Converted to sinus rhythm. On Eliquis. Hyperglycemia: D50 bolus. Will defer management of diabetes to internal medicine. I have requested a consultation from Dr. Jennings. Hypokalemia: Aggressive potassium supplementation. Will defer to Dr. Jennings. Likely home tomorrow. Thank you for your consultation. Please call me if you have any questions. Liliane Ramirez MD, FACP, FACC, FSCAI, FHRS, CCDS Interventional Cardiology Cardiac Electrophysiology Vascular Medicine and Endovascular Interventions Pushpa RAMIREZ MD Apr 23, 2018 3:38 pm
[2018-04-23] MEDS ORDERED: NON-FORMULARY MEDICATION 1 EA EA (Amlodipine Besylate 10 MG) PO SCH (21:00)
[2018-04-23] MEDS ORDERED: amLODIPine 10 MG (NORVASC) TAB PO SCH (21:00)
[2018-04-23] MEDS ORDERED: inSUlin DETERMIR 1 UNIT/0.01 ML (LEVEMIR) CHARGE PER UNIT SQ SCH (21:00)
[2018-04-23] MEDS ORDERED: FAMOTIDINE 20 MG (PEPCID) TABLET PO SCH (21:00)
[2018-04-23] MEDS ORDERED: NON-FORMULARY MEDICATION 1 EA EA (Ranitidine HCl 150 MG) PO SCH (21:00)
[2018-04-23] MEDS ORDERED: GABAPENTIN 300 MG (NEURONTIN) CAP PO SCH (21:00)
[2018-04-23] MEDS ORDERED: SIMvastatin 20 MG (ZOCOR) TAB PO SCH (21:00)
[2018-04-24 00:11] VITALS: BP 125/71
[2018-04-24 04:03] VITALS: BP 121/70
[2018-04-24] MEDS: PANTOPRAZOLE 20 MG TABLET (PROTONIX) PO SCH (06:26)
[2018-04-24] MEDS: inSUlin ASPART (NovoLOG) 1 UNIT/0.01 ML (CHARGE PER UNIT) SC SCH ×2 (07:00→12:32)
[2018-04-24 08:00] VITALS: BP 141/85
[2018-04-24] MEDS: CLOPIDOGREL 75 MG (PLAVIX) TABLET PO SCH (09:09)
[2018-04-24] MEDS: lisINopril 20 MG (PRINIVIL) TABLET PO SCH (09:09)
[2018-04-24] MEDS: OMEGA 3 (FISH OIL) 1000 MG CAP PO SCH (09:09)
[2018-04-24] MEDS: ISOSORBIDE MONONITRATE 60 MG (IMDUR) TAB PO SCH (09:09)
[2018-04-24] MEDS: LEVOTHYROXINE 50 MCG (LEVOTHROID) TAB PO SCH (09:09)
[2018-04-24] MEDS: APIXABAN 5 MG (ELIQUIS) TABLET PO SCH (09:09)
[2018-04-24] MEDS: ASPIRIN E.C. 81 MG (ECOTRIN) TAB PO SCH (09:09)
[2018-04-24] MEDS: NON-FORMULARY MEDICATION 1 EA EA (Potassium Gluconate (Potassium) 99 MG) PO SCH (09:11)
[2018-04-24 12:00] VITALS: BP 128/75
--- NOTE | 2018-04-24 14:00 | Cardiology Discharge Summary ---
Diagnosis/Chief Complaint Date of Admission Apr 23, 2018 at 7:37 am Date of Discharge 04/24/2018 Admission Diagnosis Acute inferior/posterior MD, cardiogenic shock, atrial fibrillation with rapid ventricular rate Final/Discharge Diagnosis Paroxysmal atrial fibrillation, acute MD, CAD. Chief Complaint/HPI Chief Complaint/HPI This is a 77-year-old gentleman who has history of CABG in 2001, PCI with stents in 2002. He follows with Dr. Salinas and cardiology at [facility] in [place]. He does not have previous history of atrial fibrillation. He presented with complains of nausea, sweating, chest tightness. No significant shortness of breath. EKG showed atrial fibrillation with rapid ventricular rate , inferior ST elevation as well as posterior ST elevation. He was emergently taken to the [facility]. Discharge Summary Procedures Coronary angiography showed severe three-vessel elim ira disease. RUVALCABA graft to LAD was patent. Saphenous vein grafts to the OM, diagonal, RPDA were patent. No PCI performed. Continue aggressive medical therapy. Atrial fibrillation with rapid ventricular rate, Patient was significantly hypotensive during the procedure with systolic blood pressure of 60 mmHg. Zen-Synephrine was started. Discharge Physical Examination Normal cardiovascular and respiratory examination. Hospital Course No further chest pain. Stable. Episodes of hypoglycemia were noted. Internal medicine consultation. Pending Labs Discussion & Recommendations Discussion Aspirin will be discontinued. Patient will continue long-term Plavix and Eliquis. Continue rest of the CAD medications. Discharge instructions were discussed at length with the patient and family. Discharge took over 30 minutes to complete. Follow up appt.: Dr. Ramirez in one to 2 weeks. Dicharge Diet: Cardiac Diet Activity as Tolerated: Yes Home Medications Reviewed patient Home Medication Reconciliation performed by pharmacy medication reconciliations fuel technician and/or nursing. Patients Allergies have been reviewed. Discharge Home Medications: Reviewed and agree with Discharge Medication list on patient's Discharge Instruction sheet Condition at discharge Stable. Instructions to patient/family Discharge instructions discussed at length with the patient and family. Clinical Quality Measures DVT/VTE Risk/Contraindication: Risk Factor Score Per Nursin RFS Level Per Nursing on Admit: 4+=Very High Pushpa RAMIREZ MD Apr 24, 2018 14:00
[2018-04-24] MEDS ORDERED: APIX5TAB PO (14:51)
--- NOTE | 2018-04-24 14:52 | Discharge Inst-Post CATH ---
Discharge Inst-CATH Post Cardiac Cath D/C Inst Follow Up/Plan Dr Ramirez in two to three weeks. CARDIAC CATH DISCHARGE INSTRUCTIONS *Hold Metformin for 48 hours post heart cath. ACTIVITY * Go Home directly and rest. * Limit activity of the leg (or wrist if it was used) for 7 days including aerobics, swimming, jogging, bicycling, etc. * Restrict stair-climbing for 7 days if possible, if not, climb up with your non -cath leg, then bring together on the same step. * Avoid lifting, pushing, pulling or excessive movement of the affected extremity for 7 days. * Customary sexual activity may be resumed after 2 days-use caution not to use a position that strains or causes pain to the affected extremity. * No driving for 24 hours. * NO SMOKING. * Avoid straining for bowel movements for 7 days. * Gentle walking on level ground is allowed. * Returning to work will depend on the type of procedure and the results. Your doctor will discuss this with you. CALL YOUR DOCTOR FOR ANY OF THE FOLLOWING: *If bleeding from the puncture site occurs- Apply gentle pressure to site with clean cloth and call your doctor or EMS. * If a knot or lump forms under the skin, increases in size, or causes pain. * If bruising appears to be worsening or moving further down your leg instead of disappearing. * Temperature above 101 F. CARE OF YOUR GROIN INCISION; * Bruising or purple discoloration of the skin near the puncture site is common. * You may shower only, no bathtub bathing for 5 days. Be careful to avoid slipping as your leg may feel stiff. * If a closure device was used on your femoral artery, please see the attached guide regarding care of the device and your leg. * Leave the dressing on, until removed by office staff. CARE OF YOUR WRIST INCISION; * Bruising or purple discoloration of the skin near the puncture site is common. * You may shower. * DO NOT submerge wrist. * Leave dressing on, until removed by office staff.. Pushpa RAMIREZ MD Apr 24, 2018 2:52 pm
[2018-04-24 15:51] VITALS: BP 128/75
== END 2018-04-24 15:40 | disposition home or self-care (01) | DRG 280 ==
LOC: EDUNIT# 08:02 → ER 08:03 → CATH 08:42 → ICU 10:24 → CATH 04-23 07:37 → 4TH 04-23 10:40
PROVIDERS: ADMIT Internal Medicine Interventional Cardiology; ATTEND Internal Medicine Interventional Cardiology
PROC: 4A023N7 Measurement of Cardiac Sampling and Pressure, Left Heart, Percutaneous Approach (ICD-10-PCS; principal; 2018-04-22)
PROC: B2111ZZ Fluoroscopy of Multiple Coronary Arteries using Low Osmolar Contrast (ICD-10-PCS; 2018-04-22)
PROC: B2151ZZ Fluoroscopy of Left Heart using Low Osmolar Contrast (ICD-10-PCS; 2018-04-22)
PROC: B2131ZZ Fluoroscopy of Multiple Coronary Artery Bypass Grafts using Low Osmolar Contrast (ICD-10-PCS; 2018-04-22)
PROC: B3101ZZ Fluoroscopy of Thoracic Aorta using Low Osmolar Contrast (ICD-10-PCS; 2018-04-22)
DX: I21.19 ST elevation (STEMI) myocardial infarction involving other coronary artery of inferior wall (principal); R57.0 Cardiogenic shock; I25.10 Atherosclerotic heart disease of native coronary artery without angina pectoris; I48.91 Unspecified atrial fibrillation; E11.649 Type 2 diabetes mellitus with hypoglycemia without coma; E87.6 Hypokalemia; G47.30 Sleep apnea, unspecified; J44.9 Chronic obstructive pulmonary disease, unspecified; I25.2 Old myocardial infarction; E78.00 Pure hypercholesterolemia, unspecified; I10 Essential (primary) hypertension; N40.0 Benign prostatic hyperplasia without lower urinary tract symptoms; K29.70 Gastritis, unspecified, without bleeding; K21.9 Gastro-esophageal reflux disease without esophagitis; Z95.1 Presence of aortocoronary bypass graft; Z95.5 Presence of coronary angioplasty implant and graft; Z87.891 Personal history of nicotine dependence; Z99.81 Dependence on supplemental oxygen; Z79.4 Long term (current) use of insulin; Z87.11 Personal history of peptic ulcer disease; Z85.51 Personal history of malignant neoplasm of bladder; Z85.828 Personal history of other malignant neoplasm of skin
CPT/HCPCS: 36221; 36415; 80048; 80053; 80061; 82962; 83735; 83874; 83880; 84484; 85025; 85027; 85610; 85730; 87081; 90471; 93005; 93041; 93459; 93567; 96374

== ENCOUNTER → 2018-06-25 | Outpatient (CLI) | payer MEDICARE ==
[~2018-06-25] MED LIST changes: +AMLO10TA6 PO; +APIX5TAB PO; +ASCO-262 PO; +ASPI-983 PO; +CALC-927 PO; +CHLO10CA6 PO; +CLOP75TA28 PO; +GABA-488 PO; +GABA-490 PO; +GINK120C PO; +HYDR-3820 PO; +INDO50CA11 PO; +INDO75CA3 PO; +INSU300I SQ; +LEVO50TA6 PO; +LISI-552 PO; +METF-397 PO; +NITR0.4T42 SL; +OMEP20CA12 PO; +POTA99TA21 PO; +RANI150T11 PO; +SIMV20TA3 PO; +SIMV40TA4 PO; +SUPER BETA PROSTATE PO; +TURM538C PO
== END ==
LOC: RAD 10:05
PROVIDERS: ATTEND Internal Medicine
DX: S46.002A Unspecified injury of muscle(s) and tendon(s) of the rotator cuff of left shoulder, initial encounter (principal); Z53.8 Procedure and treatment not carried out for other reasons

== ENCOUNTER → 2018-07-24 | Outpatient (CLI) | payer MEDICARE | LOC: RAD 11:56 | PROVIDERS: ATTEND Internal Medicine Nephrology | DX: I35.0 Nonrheumatic aortic (valve) stenosis (principal); I25.10 Atherosclerotic heart disease of native coronary artery without angina pectoris; E11.9 Type 2 diabetes mellitus without complications; I51.7 Cardiomegaly; I42.9 Cardiomyopathy, unspecified | CPT/HCPCS: 93306 ==

== ENCOUNTER 2018-08-19 09:24 | Outpatient (RCR) | payer MEDICARE ==
[~2018-08-19 09:24] MED LIST changes: -AMLO10TA6 PO; +AMLO10TA7 PO
== END 2018-08-23 | disposition home or self-care (01) ==
LOC: CR 09:24
PROVIDERS: ATTEND Internal Medicine Interventional Cardiology
DX: I25.2 Old myocardial infarction (principal)
CPT/HCPCS: 93798

== ENCOUNTER 2018-08-24 09:00 | Outpatient (RCR) | payer MEDICARE | END 2018-11-22 | disposition home or self-care (01) | LOC: CR 09:00 | PROVIDERS: ATTEND Internal Medicine Interventional Cardiology | DX: Z09 Encounter for follow-up examination after completed treatment for conditions other than malignant neoplasm (principal); I25.2 Old myocardial infarction | CPT/HCPCS: 93798 ==

== ENCOUNTER → 2018-11-25 | Outpatient (CLI) | payer MEDICARE ==
--- NOTE | 2018-11-25 13:07 | Diagnostic Imaging Report ---
INDICATION: Severe neck pain. TIME OF EXAM: 12:36 p.m. Curvature and alignment is normal. There is multilevel degenerative disc disease, most marked at the C5-C6, C6-C7 and C7-T1 levels, with disc space narrowing and marginal spurring. No fractures are seen. Prevertebral tissues are normal. Odontoid appears intact. IMPRESSION: Cervical spondylosis. No acute bony abnormalities detected. Dictated by: Dictated on workstation # [id number]
== END ==
LOC: RAD 12:14
PROVIDERS: ATTEND Family Medicine
DX: M47.812 Spondylosis without myelopathy or radiculopathy, cervical region (principal)
CPT/HCPCS: 72040

== ENCOUNTER 2018-12-23 09:39 | Emergency (ER) | payer MEDICARE ==
[~2018-12-23] VITALS: Ht 177.8 cm; Wt 106.6 kg
[~2018-12-23 09:39] MED LIST changes: +DEXTROSE 50% 50 ML (IMS) SYR ONE
--- NOTE | 2018-12-23 09:55 | NUR ---
peanut butter, danny crackers, and apple juice given to patient.
--- NOTE | 2018-12-23 10:20 | NUR ---
Tomato soup given to patient at this time.
[2018-12-23 10:54] VITALS: BP 106/61
[2018-12-23] MEDS ORDERED: DEXTROSE 50% 50 ML (IMS) SYR IV ONE (13:45)
--- OUTSIDE RECORDS SUMMARY | 2018-12-23 21:19 | XMS REPORT | Continuity of Care Document ---
Author Organization Unknown Address Unknown Allergies Active Description Code Type Severity Reaction Onset Reported/Identified Relationship to Patient Clinical Status Yes carvedilol [id number] Drug Allergy Unknown N/A 04/22/2018 Medications There is no data. Problems Date [...] W/O URI 07/21/2012 Ot V76.51 SCREEN MAL NEOP- COLON 01/01/2013 PAUL PHAN DO Ot 250.00 DIAB STEVEN WO COMPL, TYPE II OR UNSPEC TY 01/01/2013 PAUL PHAN DO Ot 257.2 TESTICULAR HYPOFUNC NEC 01/01/2013 PAUL PHAN DO Ot 268.9 VITAMIN D DEFICIENCY NOS 01/01/2013 PAUL PHAN DO Ot 272.4 HYPERLIPIDEMIA NEC/NOS 01/01/2013 PAUL PHAN DO Ot 274.9 GOUT NOS 01/01/2013 PAUL PHAN DO Ot 401.9 HYPERTENSION NOS 01/01/2013 PHAN DO, PAUL J Ot 413.9 ANGINA PECTORIS NEC/NOS 01/01/2013 PAUL PHAN DO Ot 414.00 CORON ATHEROSCLER NOS TYPE VESSEL, NATIV 01/01/2013 PAUL PHAN DO Ot 414.8 CHR ISCHEMIC HRT DIS NEC 01/01/2013 PAUL PHAN DO Ot 433.10 CAROTID ARTERY OCCLUSION W O CEREBRAL IN 01/01/2013 PAUL PHAN DO Ot 530.81 ESOPHAGEAL REFLUX 01/01/2013 PUAL PHAN DO Ot 715.90 OSTEOARTHROS NOS-UNSPEC 01/01/2013 PAUL PHAN DO Ot 729.5 PAIN IN LIMB 01/01/2013 PAUL PHAN DO Ot 786.59 CHEST PAIN NEC 01/01/2013 PAUL PHAN DO, Ot V45.81 AORTOCORONARY BYPASS 01/01/2013 PAUL PHAN DO, Ot V58.67 LONG-TERM (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 OF INSULIN 08/17/2013 HIEU HARKINS DO Ot 715.36 LOC OSTEOARTH NOS-L/LEG 08/17/2013 HIEU HARKINS DO, Ot V57.1 PHYSICAL THERAPY NEC 09/20/2013 MILLIE [...] V58.67 LONG-TERM (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 OF INSULIN 06/13/2014 DARIEN RODRIGEZ MD Ot 413.9 06/13/2014 DARIEN RODRIGEZ MD Ot V57.89 06/15/2014 DARIEN RODRIGEZ MD Ot 413.9 ANGINA PECTORIS NEC/NOS 06/15/2014 DARIEN RODRIGEZ MD Ot V57.89 REHABILITATION PROC NEC 07/25/2014 DORI AGRAWAL MATERIAL HAULER Ot 882.0 OPEN WOUND OF HAND 07/25/2014 DORI AGRAWAL MATERIAL HAULER Ot E000.8 OTHER EXTERNAL CAUSE STATUS 07/25/2014 DORI AGRAWAL MATERIAL HAULER Ot E906.3 ANIMAL BITE NEC 07/25/2014 DORI AGRAWAL MATERIAL HAULER Ot V01.5 RABIES CONTACT 07/25/2014 DORI AGRAWAL MATERIAL HAULER Ot V04.5 VACCIN FOR RABIES 08/12/2014 MARCO [...] 05/12/2015 PAUL PHAN DO Ot 327.51 05/12/2015 PAUL PHAN DO Ot 414.00 05/12/2015 EMILIE DACOSTAPAUL Fabrizio Ot 794.30 05/12/2015 JANEL HU, LUCILLE Dinh Ot 724.02 05/12/2015 ARELYNDER DO, MARCO S Ot 433.30 05/12/2015 ORENDER DO, MARCO S Ot I73.9 05/29/2015 ORENDER DO, MARCO S Ot I73.9 05/29/2015 ORENDER DO, MARCO S Ot I70.203 05/29/2015 ARELYNDER DO, MARCO S Ot M79.609 06/06/2015 ARELYNDER DO, MARCO S Ot I73.9 07/27/2015 Ot 428.0 07/27/2015 Ot 440.0 07/27/2015 Ot 443.9 07/27/2015 Ot 440.0 07/27/2015 Ot 414.00 07/27/2015 Ot 530.89 07/27/2015 Ot 793.1 07/27/2015 Ot 729.5 07/27/2015 Ot 782.3 07/27/2015 Ot 564.00 07/27/2015 Ot V72.84 07/27/2015 EMILIE DACOSTA PAUL Fabrizio Ot 327.23 07/27/2015 EMILIE DACOSTA PAUL Fabrizio Ot 327.51 07/27/2015 EMILIE DACOSTA PAUL Fabrizio Ot 414.00 07/27/2015 EMILIE DACOSTA PAUL Fabrizio Ot 794.30 07/27/2015 JANEL HU, LUCILLE Dinh Ot 724.02 07/27/2015 REEDER DO, MARCO S Ot 433.30 07/27/2015 ARELYNDER DO, MARCO S Ot I73.9 07/27/2015 ARELYNDER DO, MARCO S Ot I70.213 08/31/2015 Ot 428.0 08/31/2015 Ot 440.0 08/31/2015 Ot 443.9 08/31/2015 Ot 440.0 08/31/2015 Ot 414.00 08/31/2015 Ot 530.89 08/31/2015 Ot 793.1 08/31/2015 Ot 729.5 08/31/2015 Ot 782.3 08/31/2015 Ot 564.00 08/31/2015 Ot V72.84 08/31/2015 PHAN DO, PAUL Dinh Ot 327.23 08/31/2015 PHAN DO, PAUL Dinh [...] Ot M25.561 [facility] RIGHT KNEE [facility] Ot M25.562 PAIN IN LEFT KNEE 09/20/2015 EARNEST LO MATERIAL HAULER Ot J44.9 10/02/2015 EARNEST LO MATERIAL HAULER Ot J44.9 10/25/[facility] MARCO S Ot I70.213 ATHSCL [place] ARTERIES OF EXTRM W INTRMT 12/29/2015 ARAM [...] BITE, LEFT LOWER LEG, INITIAL ENCOU 02/11/2016 BRANDEN MEDINA Ot W54.0XXA BITTEN BY DOG, INITIAL ENCOUNTER 02/11/2016 RON TORRESBRANDEN Ot Y99.8 OTHER EXTERNAL CAUSE STATUS 02/11/2016 RON TORRES BRANDEN Howard Ot Z23 ENCOUNTER FOR IMMUNIZATION 02/13/2016 RON MELISSABRANDEN Ot S81.852A OPEN BITE, LEFT LOWER LEG, INITIAL ENCOU 02/13/2016 RON TORRESBRANDEN Ot W54.0XXA BITTEN BY DOG, INITIAL ENCOUNTER 02/13/2016 RON TORRESBRANDEN Ot Y99.8 OTHER EXTERNAL CAUSE STATUS 02/13/2016 RON TORRESBRANDEN Ot Z23 ENCOUNTER FOR IMMUNIZATION 04/22/2017 MARCO CANDELARIO DO S Ot R22.42 LOCALIZED SWELLING, MASS AND LUMP, LEFT 04/22/2017 Ot 729.5 PAIN IN LIMB 04/22/2017 Ot 782.3 EDEMA 04/22/2017 Ot 564.00 UNSPEC CONSTIPATION 04/22/2017 Ot V72.84 EXAM PRE-OPERATIVE NOS 04/22/2017 PAUL PHAN DO Ot 327.23 OBSTRUCTIVE SLEEP APNEA (ADULT) (PEDIATR 04/22/2017 PAUL PHAN DO Ot 327.51 PERIODIC LIMB MOVEMENT DISORDER 04/22/2017 PAUL PHAN DO Ot 414.00 CORON ATHEROSCLER NOS TYPE VESSEL, NATIV 04/22/2017 PAUL PHAN DO Ot 794.30 ABN CARDIOVASC STUDY NOS 04/22/2017 JANEL HU, LUCILLE Dinh Ot 724.02 SPINAL STENOSIS, LUMBAR REG, W/OUT NEURO 04/22/2017 MARCO CANDELARIO DO Ot 433.30 MULT BILTRAL ARTERY OCCLUSION WO CEREBRA 04/22/2017 MARCO CANDELARIO DO S Ot I73.9 PERIPHERAL VASCULAR DISEASE, UNSPECIFIED 04/22/2017 MARCO CANDELARIO DO S Ot I70.213 ATHSCL [place] ARTERIES OF EXTRM W INTRMT 04/22/2017 EARNEST LO APRN Ot J44.9 CHRONIC OBSTRUCTIVE PULMONARY DISEASE, U 04/22/2017 GUILLE CANDELARIO DOLINE S Ot R22.42 LOCALIZED SWELLING, MASS AND LUMP, LEFT 05/14/2017 MARCO CANDELARIO DO S Ot M79.661 PAIN IN RIGHT LOWER [...] 564.00 UNSPEC CONSTIPATION 06/24/2017 Ot V72.84 EXAM PRE-OPERATIVE NOS 06/24/2017 PAUL PHAN DO Ot 327.23 [...] GUILLE CANDELARIO DOLINE S Ot I70.213 ATHSCL [place] ARTERIES OF EXTRM W INTRMT 06/24/2017 EARNEST LO APRN Ot J44.9 CHRONIC OBSTRUCTIVE PULMONARY DISEASE, U 06/24/2017 GUILLE CANDELARIO DOLINE S Ot M79.661 PAIN IN RIGHT LOWER LEG 06/24/2017 GUILLE CANDELARIO DOLINE S Ot M79.662 PAIN IN LEFT LOWER LEG 06/24/2017 IVAN AMIN APRN Ot M79.89 OTHER SPECIFIED SOFT TISSUE DISORDERS 06/25/2017 IVAN AMIN APRN Ot J44.9 CHRONIC OBSTRUCTIVE PULMONARY DISEASE, U 06/25/2017 IVAN AMIN E MATERIAL HAULER Ot M79.89 OTHER SPECIFIED SOFT TISSUE DISORDERS 07/24/2017 IVAN AMIN E MATERIAL HAULER Ot J44.9 CHRONIC OBSTRUCTIVE PULMONARY DISEASE, U 07/24/2017 IVAN AMIN E MATERIAL HAULER Ot M79.89 OTHER SPECIFIED SOFT TISSUE DISORDERS 07/30/2017 IVAN AMIN E MATERIAL HAULER Ot J44.9 CHRONIC OBSTRUCTIVE PULMONARY DISEASE, U 07/30/2017 IVAN AMIN E MATERIAL HAULER Ot M79.89 OTHER SPECIFIED SOFT TISSUE DISORDERS 02/24/2018 JAYESH WOOD DO Ot E11.9 TYPE 2 DIABETES MELLITUS WITHOUT COMPLIC 02/24/2018 TATO WOOD DOA Vaishali Ot I10 ESSENTIAL (PRIMARY) HYPERTENSION 02/24/2018 JAYESH WOOD DO Ot I25.10 ATHSCL HEART DISEASE OF [place] CORONARY 02/24/2018 JAYESH WOOD DO Ot J44.9 CHRONIC OBSTRUCTIVE PULMONARY DISEASE, U 02/24/2018 JAYESH WOOD DO Ot K21.9 GASTRO-ESOPHAGEAL REFLUX DISEASE WITHOUT 02/24/2018 JAYESH WOOD DO Ot M25.512 PAIN IN LEFT SHOULDER 02/24/2018 JAYESH WOOD DO Ot Z79.82 FDC (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 OF ASPIRIN 02/24/2018 JAYESH WOOD DO Ot Z79.84 FDC (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 OF ORAL HYPOGLYC 02/24/2018 JAYESH [...] DO Ot I25.10 ATHSCL HEART DISEASE OF [place] CORONARY 02/25/2018 JAYESH WOOD DO K Ot J44.9 CHRONIC OBSTRUCTIVE PULMONARY DISEASE, U 02/25/2018 JAYESH WOOD DO Ot K21.9 GASTRO-ESOPHAGEAL REFLUX DISEASE WITHOUT 02/25/2018 NINA JAYESH Tom Ot M25.512 PAIN IN LEFT SHOULDER 02/25/2018 NINA DACOSTA JAYESH Vaishali Ot Z79.82 FDC (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 OF ASPIRIN 02/25/2018 NINA JAYESH Ot Z79.84 FDC (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 OF ORAL HYPOGLYC 02/25/2018 NINA JAYESH Vaishali Ot Z85.51 PERSONAL HISTORY OF MALIGNANT NEOPLASM O 02/25/2018 NINA JAYESH Vaishali Ot Z85.828 PERSONAL HISTORY OF OTHER MALIGNANT NEOP 02/25/2018 JAYESH WOOD DO Ot Z87.891 PERSONAL HISTORY OF NICOTINE DEPENDENCE 02/25/2018 TATO WOOD DOA Vaishali Ot Z88.8 ALLERGY STATUS TO OTH DRUG/MEDS/BIOL SUB 02/25/2018 NINA JAYESH Vaishali Ot Z95.1 PRESENCE OF AORTOCORONARY BYPASS GRAFT 03/21/2018 NINA JAYESH Vaishali Ot E11.9 TYPE 2 DIABETES MELLITUS WITHOUT COMPLIC 03/21/2018 TATO WOOD DOA Vaishali Ot I10 ESSENTIAL (PRIMARY) HYPERTENSION 03/21/2018 TATO WOOD DOA Vaishali Ot I25.10 ATHSCL HEART DISEASE OF [place] CORONARY 03/21/2018 NINA JAYESH Vaishali Ot J44.9 CHRONIC OBSTRUCTIVE PULMONARY DISEASE, U 03/21/2018 NINA JAYESH Vaishali Ot K21.9 GASTRO-ESOPHAGEAL REFLUX DISEASE WITHOUT 03/21/2018 TTAO WOOD DOA Vaishali Ot M25.512 PAIN IN LEFT SHOULDER 03/21/2018 TATO WOOD DOA Vaishali Ot Z79.82 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 SOLUTION 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 (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 OF 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 03/21/2018 JYAESH WOOD DO Ot Z79.84 FDC (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 OF ORAL HYPOGLYC 03/21/2018 TATO WOOD DOA Vaishali Ot Z85.51 PERSONAL HISTORY OF MALIGNANT NEOPLASM O 03/21/2018 NINA JAYESH Vaishali Ot Z85.828 PERSONAL HISTORY OF OTHER MALIGNANT NEOP 03/21/2018 JAYESH WOOD DO Ot Z87.891 PERSONAL HISTORY OF NICOTINE DEPENDENCE 03/21/2018 JAYESH WOOD DO Vaishali Ot Z88.8 ALLERGY STATUS TO [facility] DRUG/MEDS/BIOL SUB 03/21/2018 JAYESH WOOD DO Ot Z95.1 PRESENCE OF AORTOCORONARY BYPASS GRAFT 04/24/2018 Pushpa CHAVARRIA MD Ot E11.649 TYPE 2 DIABETES MELLITUS WITH HYPOGLYCEM 04/24/2018 Pushpa CHAVARRIA MD Ot E78.00 PURE HYPERCHOLESTEROLEMIA, UNSPECIFIED 04/24/2018 Pushpa CHAVARRIA MD Ot E87.6 HYPOKALEMIA 04/24/2018 Pushpa CHAVARRIA MD Ot G47.30 SLEEP APNEA, UNSPECIFIED 04/24/2018 Pushpa CHAVARRIA MD Ot I10 ESSENTIAL (PRIMARY) HYPERTENSION 04/24/2018 Pushpa CHAVARRIA MD, Ot 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 04/24/2018 Pushpa CHAVARRIA MD Ot I25.10 ATHSCL HEART DISEASE OF [place] CORONARY 04/24/2018 Pushpa CHAVARRIA MD Ot I25.2 OLD MYOCARDIAL INFARCTION 04/24/2018 Pushpa CHAVARRIA MD Ot I48.91 UNSPECIFIED ATRIAL FIBRILLATION 04/24/2018 Pushpa CHAVARRIA MD Ot J44.9 CHRONIC OBSTRUCTIVE PULMONARY DISEASE, U 04/24/2018 Pushpa CHAVARRIA MD Ot K21.9 GASTRO-ESOPHAGEAL REFLUX DISEASE WITHOUT 04/24/2018 Pushpa CHAVARRIA MD Ot K29.70 GASTRITIS, UNSPECIFIED, WITHOUT BLEEDING 04/24/2018 Pushpa CHAVARRIA MD Ot N40.0 BENIGN PROSTATIC HYPERPLASIA WITHOUT LOW 04/24/2018 Pushpa CHAVARRIA MD Ot R57.0 CARDIOGENIC SHOCK 04/24/2018 Pushpa CHAVARRIA MD Ot Z79.4 AMMONIA SOLUTION PREPARER (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 OF INSULIN 04/24/2018 Pushpa CHAVARRIA MD, Ot Z85.51 PERSONAL HISTORY OF MALIGNANT NEOPLASM O 04/24/2018 Pushpa CHAVARRIA MD, Ot Z85.828 PERSONAL HISTORY OF OTHER MALIGNANT NEOP 04/24/2018 Pushpa CHAVARRIA MD, Ot Z87.11 PERSONAL HISTORY OF PEPTIC ULCER DISEASE 04/24/2018 Pushpa CHAVARRIA MD Ot Z87.891 PERSONAL HISTORY OF NICOTINE DEPENDENCE 04/24/2018 DEON HU, Pushpa MAKI Ot Z95.1 PRESENCE OF AORTOCORONARY BYPASS GRAFT 04/24/2018 Pushpa CHAVARRIA MD Ot Z95.5 PRESENCE OF CORONARY ANGIOPLASTY IMPLANT 04/24/2018 Pushpa CHAVARRIA MD Ot Z99.81 DEPENDENCE ON SUPPLEMENTAL OXYGEN 07/03/2018 DEON HU, Pushpa MAKI Ot I25.2 OLD MYOCARDIAL INFARCTION 07/10/2018 Pushpa CHAVARRIA MD, Ot 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 MYOCARDIAL INFARCTION 07/27/2018 MANUEL CHAVARRIA MD Ot E11.9 TYPE 2 DIABETES MELLITUS WITHOUT COMPLIC 07/27/2018 MANUEL CHAVARRIA MD Ot I25.10 ATHSCL HEART DISEASE OF [place] CORONARY 07/27/2018 MANUEL CHAVARRIA MD R Ot I35.0 NONRHEUMATIC AORTIC (VALVE) STENOSIS 07/27/2018 MANUEL CHAVARRIA MD Ot I42.9 CARDIOMYOPATHY, UNSPECIFIED 07/27/2018 MANUEL CHAVARRIA MD Ot I51.7 CARDIOMEGALY 08/17/2018 MANUEL CHAVARRIA MD Ot E11.9 TYPE 2 DIABETES MELLITUS WITHOUT COMPLIC 08/17/2018 MANUEL CHAVARRIA MD Ot I25.10 ATHSCL HEART DISEASE OF [place] CORONARY 08/17/2018 MANUEL CHAVARRIA MD Ot I35.0 NONRHEUMATIC AORTIC (VALVE) STENOSIS 08/17/2018 MANUEL CHAVARRIA MD Ot I42.9 CARDIOMYOPATHY, UNSPECIFIED 08/17/2018 MANUEL CHAVARRIA MD R Ot I51.7 CARDIOMEGALY 08/19/2018 MANUEL CHAVARRIA MD Ot E11.9 TYPE 2 DIABETES MELLITUS WITHOUT COMPLIC 08/19/2018 MANUEL CHAVARRIA MD Ot I25.10 ATHSCL HEART DISEASE OF [place] CORONARY 08/19/2018 MANUEL CHAVARRIA MD Ot I35.0 NONRHEUMATIC AORTIC (VALVE) STENOSIS 08/19/2018 MANUEL CHAVARRIA MD Ot I42.9 CARDIOMYOPATHY, UNSPECIFIED 08/19/2018 DEON HU, MANUEL R Ot I51.7 CARDIOMEGALY 08/23/2018 DEON HU, Pushpa MAKI Ot 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 MYOCARDIAL INFARCTION 08/24/2018 DEON HU, Pushpa MAKI Ot I25.2 OLD MYOCARDIAL INFARCTION 09/09/2018 DEON HU, Pushpa MAKI Ot I25.2 OLD MYOCARDIAL INFARCTION 09/25/2018 DEON HU, Pushpa MAKI Ot 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 OLD MYOCARDIAL INFARCTION 09/25/2018 DEON HU, Pushpa MAKI Ot Z09 ENCNTR FOR F/U EXAM AFT TRTMT FOR COND O 11/22/2018 DEON HU, Psuhpa MAKI Ot I25.2 OLD MYOCARDIAL INFARCTION 11/22/2018 DEON HU, Pushpa MAKI Ot Z09 ENCNTR FOR F/U EXAM AFT TRTMT FOR COND O 11/25/2018 DEON HU, Pushpa MAKI Ot 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 MYOCARDIAL INFARCTION 11/25/2018 DEON HU, Pushpa MAKI Ot Z09 ENCNTR FOR F/U EXAM AFT TRTMT FOR COND O 12/15/2018 MARCO CANDELARIO DO S Ot M47.812 SPONDYLOSIS W/O MYELOPATHY OR RADICULOPA Procedures Code Description Performed By Performed On [id number] MEASURE OF CARDIAC SAMPL PRESSURE, L H 04/22/2018 [id number] FLUOROSCOPY OF MULT COR ART USING L OSM 04/22/2018 [id number] FLUOROSCOPY OF MULT COR A GRAFT USING L 04/22/2018 [id number] FLUOROSCOPY OF LEFT HEART USING LOW OSMO 04/22/2018 [id number] FLUOROSCOPY OF THORACIC AORTA USING LOW 04/22/2018 Results Test Result Range Capillary blood glucose measurement by glucometer (mass/volume) - 04/22/18 08:09 Capillary blood glucose measurement by glucometer (mass/volume) 43 mg/dL 70-110 Complete blood count (CBC) with automated white blood cell (WBC) differential - 04/22/18 08:41 Blood leukocytes automated count (number/volume) 11.9 10*3/uL 4.3-11.0 Blood erythrocytes automated count (number/volume) 4.88 10*6/uL 4.35-5.85 Venous blood hemoglobin measurement (mass/volume) 14.0 g/dL 13.3-17.7 Blood hematocrit (volume fraction) 40 % 40-54 Automated erythrocyte mean corpuscular volume 82 [foz_us] 80-99 Automated erythrocyte mean corpuscular hemoglobin (mass per erythrocyte) 29 pg 25-34 Automated erythrocyte mean corpuscular hemoglobin concentration measurement (mass/volume) 35 g/dL 32-36 Automated erythrocyte distribution width ratio 15.5 % 10.0- 14.5 Automated blood platelet count (count/volume) 204 10*3/uL 130-400 Automated blood platelet mean volume measurement 11.0 [foz_us] 7.4-10.4 Automated blood neutrophils/100 leukocytes 71 % 42-75 Automated blood lymphocytes/100 leukocytes 14 % 12-44 Blood monocytes/100 leukocytes 10 % 0-12 Automated blood eosinophils/100 leukocytes 4 % 0-10 Automated blood basophils/100 leukocytes 0 % 0-10 Blood neutrophils automated count (number/volume) 8.5 10*3 1.8-7.8 Blood lymphocytes automated count (number/volume) 1.7 10*3 1.0-4.0 Blood monocytes automated count (number/volume) 1.2 10*3 0.0- 1.0 Automated eosinophil count 0.5 10*3/uL 0.0-0.3 Automated blood basophil count (count/volume) 0.0 10*3/uL 0.0-0.1 Magnesium - 04/22/18 08:41 Magnesium 2.0 mg/dL 1.8-2.4 PT panel in platelet poor plasma by coagulation assay - 04/22/18 08:41 Prothrombin time (PT) in platelet poor plasma by coagulation assay 13.6 s 12.2-14.7 INR in platelet poor plasma or blood by coagulation assay 1.0 0.8-1.4 Activated partial thromboplastin time (aPTT) in platelet poor plasma bycoagulation assay - 04/22/18 08:41 Activated partial thromboplastin time (aPTT) in platelet poor plasma bycoagulation assay 29 s 24-35 Comprehensive metabolic panel - 04/22/18 08:41 Serum or plasma sodium measurement (moles/volume) 139 mmol/L 135-145 Serum or plasma potassium measurement (moles/volume) 3.0 mmol/L 3.6-5.0 Serum or plasma chloride measurement (moles/volume) 104 mmol/L 98-107 Carbon dioxide 20 mmol/L 21-32 Serum or plasma anion gap determination (moles/volume) 15 mmol/L 5-14 Serum or plasma urea nitrogen measurement (mass/volume) 19 mg/dL 7-18 Serum or plasma creatinine measurement (mass/volume) 1.17 mg/dL 0.60-1.30 Serum or plasma urea nitrogen/creatinine mass ratio 16 NRG Serum or plasma creatinine measurement with calculation of estimated glomerular filtration rate > NRG Serum or plasma glucose measurement (mass/volume) 105 mg/dL 70-105 Serum or plasma calcium measurement (mass/volume) 9.3 mg/dL 8.5-10.1 Serum or plasma total bilirubin measurement (mass/volume) 0.5 mg/dL 0.1-1.0 Serum or plasma alkaline phosphatase measurement (enzymatic activity/volume) 50 U/L 40-136 Serum or plasma aspartate aminotransferase measurement (enzymatic activity/volume) 26 U/L 5-34 Serum or plasma alanine aminotransferase measurement (enzymatic activity/volume) 27 U/L 0-55 Serum or plasma protein measurement (mass/volume) 7.2 g/dL 6.4-8.2 Serum or plasma albumin measurement (mass/volume) 4.5 g/dL 3.2-4.5 CALCIUM CORRECTED 8.9 mg/dL 8.5-10.1 Myoglobin, serum - 04/22/18 08:41 Myoglobin, serum 205.8 ng/mL 10.0-92.0 Serum or plasma troponin i.cardiac measurement (mass/volume) - 04/22/18 08:41 Serum or plasma troponin i.cardiac measurement (mass/volume) < ng/mL <0.30 Methicillin resistant Staphylococcus aureus (MRSA) screening culture - 04/22/18 10:50 Methicillin resistant Staphylococcus aureus (MRSA) screening culture NEG NRG Capillary blood glucose measurement by glucometer (mass/volume) - 04/22/18 16:16 Capillary blood glucose measurement by glucometer (mass/volume) 213 mg/dL 70-110 Comprehensive metabolic panel - 04/22/18 21:33 Serum or plasma sodium measurement (moles/volume) 136 mmol/L 135-145 Serum or plasma potassium measurement (moles/volume) 4.0 mmol/L 3.6-5.0 Serum or plasma chloride measurement (moles/volume) 107 mmol/L 98-107 Carbon dioxide 19 mmol/L 21-32 Serum or plasma anion gap determination (moles/volume) 10 mmol/L 5-14 Serum or plasma urea nitrogen measurement (mass/volume) 16 mg/dL 7-18 Serum or plasma creatinine measurement (mass/volume) 1.01 mg/dL 0.60-1.30 Serum or plasma urea nitrogen/creatinine mass ratio 16 NRG Serum or plasma creatinine measurement with calculation of estimated glomerular filtration rate > NRG Serum or plasma glucose measurement (mass/volume) 206 mg/dL 70-105 Serum or plasma calcium measurement (mass/volume) 8.4 mg/dL 8.5-10.1 Serum or plasma total bilirubin measurement (mass/volume) 0.4 mg/dL 0.1-1.0 Serum or plasma alkaline phosphatase measurement (enzymatic activity/volume) 44 U/L 40-136 Serum or plasma aspartate aminotransferase measurement (enzymatic activity/volume) 64 U/L 5-34 Serum or plasma alanine aminotransferase measurement (enzymatic activity/volume) 27 U/L 0-55 Serum or plasma protein measurement (mass/volume) 6.1 g/dL 6.4-8.2 Serum or plasma albumin measurement (mass/volume) 3.9 g/dL 3.2-4.5 CALCIUM CORRECTED 8.5 mg/dL 8.5-10.1 Serum or plasma lithium measurement (moles/volume) - 04/22/18 21:33 BNP level 188.6 pg/mL <100.0 Serum or plasma troponin i.cardiac measurement (mass/volume) - 04/22/18 21:33 Serum or plasma troponin i.cardiac measurement (mass/volume) 9.07 ng/mL <0.30 Capillary blood glucose measurement by glucometer (mass/volume) - 04/22/18 21:39 Capillary blood glucose measurement by glucometer (mass/volume) 183 mg/dL 70-110 Capillary blood glucose measurement by glucometer (mass/volume) - 04/23/18 01:46 Capillary blood glucose measurement by glucometer (mass/volume) 49 mg/dL 70-110 Capillary blood glucose measurement by glucometer (mass/volume) - 04/23/18 02:07 Capillary blood glucose measurement by glucometer (mass/volume) 76 mg/dL 70-110 Capillary blood glucose measurement by glucometer (mass/volume) - 04/23/18 02:29 Capillary blood glucose measurement by glucometer (mass/volume) 132 mg/dL 70-110 Automated blood complete blood count (hemogram) panel - 04/23/18 02:57 Blood leukocytes automated count (number/volume) 7.2 10*3/uL 4.3-11.0 Blood erythrocytes automated count (number/volume) 4.79 10*6/uL 4.35-5.85 Venous blood hemoglobin measurement (mass/volume) 13.3 g/dL 13.3-17.7 Blood hematocrit (volume fraction) 40 % 40-54 Automated erythrocyte mean corpuscular volume 83 [foz_us] 80-99 Automated erythrocyte mean corpuscular hemoglobin (mass per erythrocyte) 28 pg 25-34 Automated erythrocyte mean corpuscular hemoglobin concentration measurement (mass/volume) 34 g/dL 32-36 Automated erythrocyte distribution width ratio 16.3 % 10.0- 14.5 Automated blood platelet count (count/volume) 198 10*3/uL 130-400 Automated blood platelet mean volume measurement 11.1 [foz_us] 7.4-10.4 Whole blood basic metabolic panel - 04/23/18 02:57 Serum or plasma sodium measurement (moles/volume) 138 mmol/L 135-145 Serum or plasma potassium measurement (moles/volume) 4.0 mmol/L 3.6-5.0 Serum or plasma chloride measurement (moles/volume) 108 mmol/L 98-107 Carbon dioxide 18 mmol/L 21-32 Serum or plasma anion gap determination (moles/volume) 12 mmol/L 5-14 Serum or plasma urea nitrogen measurement (mass/volume) 14 mg/dL 7-18 Serum or plasma creatinine measurement (mass/volume) 1.01 mg/dL 0.60-1.30 Serum or plasma urea nitrogen/creatinine mass ratio 14 NRG Serum or plasma creatinine measurement with calculation of estimated glomerular filtration rate > NRG Serum or plasma glucose measurement (mass/volume) 204 mg/dL 70-105 Serum or plasma calcium measurement (mass/volume) 8.7 mg/dL 8.5-10.1 Magnesium - 04/23/18 02:57 Magnesium 1.9 mg/dL 1.8-2.4 Lipid 1996 panel - 04/23/18 02:57 Serum or plasma triglyceride measurement (mass/volume) 112 mg/dL <150 Serum or plasma cholesterol measurement (mass/volume) 141 mg/dL < 200 Serum or plasma cholesterol in HDL measurement (mass/volume) 50 mg/dL 40-60 Cholesterol in LDL [mass/volume] in serum or plasma by direct assay 73 mg/dL 1-129 Serum or plasma cholesterol in VLDL measurement (mass/volume) 22 mg/dL 5-40 Serum or plasma troponin i.cardiac measurement (mass/volume) - 04/23/18 02:57 Serum or plasma troponin i.cardiac measurement (mass/volume) 8.11 ng/mL <0.30 Capillary blood glucose measurement by glucometer (mass/volume) - 04/23/18 06:23 Capillary blood glucose measurement by glucometer (mass/volume) 144 mg/dL 70-110 Capillary blood glucose measurement by glucometer (mass/volume) - 04/23/18 11:09 Capillary blood glucose measurement by glucometer (mass/volume) 242 mg/dL 70-110 Capillary blood glucose measurement by glucometer (mass/volume) - 04/23/18 16:17 Capillary blood glucose measurement by glucometer (mass/volume) 95 mg/dL 70-110 Capillary blood glucose measurement by glucometer (mass/volume) - 04/23/18 20:37 Capillary blood glucose measurement by glucometer (mass/volume) 131 mg/dL 70-110 Capillary blood glucose measurement by glucometer (mass/volume) - 04/24/18 05:07 Capillary blood glucose measurement by glucometer (mass/volume) 104 mg/dL 70-110 Capillary blood glucose measurement by glucometer (mass/volume) - 04/24/18 10:51 Capillary blood glucose measurement by glucometer (mass/volume) 237 mg/dL 70-110 Encounters ACCT No. Visit Date/Time Discharge Status Pt. Type Provider Facility Loc./Unit Complaint [id number] 11/18/2018 09:25:20 11/18/2018 23:59:59 CLS Outpatient [id number] 11/25/2018 12:14:00 11/25/2018 23:59:59 CLS Outpatient MARCO CANDELARIO DO [facility] RAD CERVICALGIA [id number] 11/23/2018 09:00:00 11/23/2018 23:59:59 CLS Preadmit Pushpa CHAVARRIA MD [facility] CR AMI [id number] 08/24/2018 09:00:00 11/22/2018 00:01:00 DIS Outpatient Pushpa CHAVARRIA MD [facility] CR AMI [id number] 08/19/2018 09:24:00 08/23/2018 00:01:00 DIS Outpatient Pushpa CHAVARRIA MD [facility] CR AMI [id number] 07/24/2018 11:56:00 07/24/2018 23:59:59 CLS Outpatient MANUEL CHAVARRIA MD [facility] RAD CARDIOMYOPATHY, CAD [id number] 06/25/2018 10:05:00 06/25/2018 23:59:59 CLS Outpatient PAUL PHAN DO [facility] RAD ROTATOR CUFF INJURY LT SHOULDER [id number] 06/16/2018 13:24:00 06/16/2018 23:59:59 CLS Preadmit Pushpa CHAVARRIA MD [facility] RAD CAD,DM [id number] 06/16/2018 11:22:00 06/16/2018 23:59:59 CLS Preadmit Pushpa CHAVARRIA MD [facility] RAD CAD,CAROTID STENOSIS [id number] 04/23/2018 07:37:00 04/24/2018 15:40:00 DIS Inpatient Pushpa CHAVARRIA MD [facility] 4TH CHEST PAIN,[place] [id number] 02/23/2018 23:17:00 02/24/2018 02:38:00 DIS Emergency NINA JAYESH DACOSTA Vaishali [facility] ER CP [id number] 07/02/2017 14:15:00 07/02/2017 23:59:59 CLS Preadmit IVAN AMIN APRN [facility] RT J44.9 COPD [id number] 06/24/2017 09:57:00 06/24/2017 23:59:59 CLS Outpatient IVAN AMIN MATERIAL HAULER [facility] RAD J44.9 COPD [id number] 06/24/2017 09:39:00 06/24/2017 23:59:59 CLS Preadmit IVAN AMIN MATERIAL HAULER [facility] RAD M79.89 LEG SWELLING [id number] 04/22/2017 15:45:00 04/22/2017 23:59:59 CLS Outpatient MARCO CANDELARIO DO S [facility] RAD R UPPER THIGH PAIN, L LOWER LEG REDNESS [id number] 02/11/2016 16:55:00 02/11/2016 18:26:00 DIS Emergency BRANDEN MEDINA [facility] ER DOG BITE [id number] 01/15/2016 10:19:00 01/23/2016 15:58:00 DIS Outpatient ARAM VASQUEZ MD [facility] REHAB S/P R TKR [id number] 08/08/2015 08:52:00 09/04/2015 09:38:00 DIS Outpatient MARCO CANDELARIO DO S [facility] REHAB BILATERAL KNEE PAIN; INSTABILITY IN R KNEE [id number] 08/31/2015 12:03:00 08/31/2015 23:59:59 CLS Outpatient TERESITA EARNEST 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 [facility] RAD COUGH,WHEEZING,COPD [id number] 05/12/2015 11:58:00 05/12/2015 23:59:59 CLS Outpatient GUILLE CANDELARIO DOLINE S [facility] RAD LEG PAIN WITH DECREASED JOON [id number] 05/04/2015 15:11:00 05/04/2015 23:59:59 CLS Outpatient KODAK DACOSTA MARCO S [facility] RAD CLAUDICATION [id number] 08/11/2014 09:59:00 08/11/2014 23:59:59 CLS Outpatient OC CANDELARIO DOQUELINE S [facility] RAD CAROTID ARTERY STENOSIS [id number] 07/25/2014 17:02:00 07/25/2014 18:25:00 DIS Emergency DORI AGRAWAL MATERIAL HAULER [facility] ER ANIMAL BITE RT INDEX FINGER [id number] 06/15/2014 08:32:00 06/15/2014 12:06:00 DIS Outpatient ELIA MD, DARIEN Mayes [facility] CR STABLE ANGINA [id number] 03/18/2014 09:37:00 03/18/2014 23:59:59 CLS Outpatient LUCILLE ISLAS MD [facility] RAD LUMBAR STENOSIS [id number] 11/21/2013 07:48:00 11/22/2013 12:15:00 DIS Inpatient PAUL PHAN DO [facility] ICU CHEST PAIN [id number] 11/15/2013 06:29:00 11/15/2013 23:59:59 CLS Outpatient PAUL PHAN DO [facility] CARD CAD [id number] 09/20/2013 14:47:00 09/20/2013 17:58:00 DIS Emergency DHRUV PINTO MD [facility] ER VOMITING [id number] 08/11/2013 09:00:00 08/17/2013 14:05:00 DIS Outpatient HIEU HARKINS DO [facility] REHAB DJD R KNEE [id number] 03/11/2013 20:00:00 03/11/2013 23:59:59 CLS Outpatient PAUL PHAN DO [facility] SLEEP TORRIE [id number] 12/31/2012 13:17:00 01/01/2013 12:05:00 DIS Inpatient PAUL PHAN DO [facility] CSD CHEST PAIN [id number] 05/12/2015 11:56:00 Document Registration [id number] 07/21/2012 06:49:00 Document Registration [id number] 07/16/2012 07:20:00 Document Registration [id number] 06/22/2012 16:51:00 Document Registration [id number] 03/11/2012 20:10:00 Document Registration [id number] 02/26/2012 11:53:00 Document Registration [id number] 01/18/2011 08:01:00 Document Registration [id number] 12/31/2010 09:35:00 Document Registration [id number] 12/31/2010 08:53:00 Document Registration [id number] 12/05/2010 08:08:00 Document Registration [id number] 11/21/2010 11:23:00 Document Registration [id number] 10/26/2010 10:55:00 Document Registration
== END 2018-12-23 10:54 | disposition home or self-care (01) ==
LOC: EDUNIT# 09:39 → ER FS 09:40
DX: E16.2 Hypoglycemia, unspecified (principal)
CPT/HCPCS: 96374

== ENCOUNTER → 2019-01-11 | Outpatient (CLI) | payer MEDICARE ==
[~2019-01-11] MED LIST changes: -DEXTROSE 50% 50 ML (IMS) SYR ONE
--- NOTE | 2019-01-11 19:00 | Diagnostic Imaging Report ---
EXAMINATION: Left hip, 2 views. COMPARISON: None. HISTORY: 78-year-old male, fall one week ago. Persistent left-sided hip pain. FINDINGS: The left hip is not dislocated. There is no identified acute fracture. There is mild joint space loss of the left hip with minimal osteophyte formation. IMPRESSION: 1. No identified acute bony abnormality of the left hip. 2. Mild degenerative changes of the left hip. Dictated by: Dictated on workstation # [id number]
== END ==
LOC: RAD 14:35
PROVIDERS: ATTEND Internal Medicine
DX: S70.02XA Contusion of left hip, initial encounter (principal); M16.12 Unilateral primary osteoarthritis, left hip
CPT/HCPCS: 73502

== ENCOUNTER → 2019-03-19 | Outpatient (CLI) | payer MEDICARE ==
[~2019-03-19] MED LIST changes: -OMEP20CA12 PO; +OMEP20CA13 PO
--- NOTE | 2019-03-19 14:47 | Diagnostic Imaging Report ---
CLINICAL INDICATION: Patient with dizziness and giddiness. COMPARISON: Ultrasound of the carotid arteries dated 08/11/2014. EXAM: Real-time carotid Doppler duplex imaging is performed bilaterally. Peak systolic velocity, ICA/CCA peak systolic ratio, spectral analysis, and vascular morphology are studied. FINDINGS: ARTERY VELOCITY Right Left CCA 0.80 m/s 0.88 m/s ICA 0.76 m/s 0.68 m/s ECA 1.52 m/s 0.92 m/s ICA/CCA 0.96 0.77 VERT.ART Antegrade Antegrade There is bilateral carotid artery atherosclerotic disease with the bilateral ICA bulbs affected the most. There is elevated velocity within the right ECA of 1.52 m/s, but there is no significant grayscale stenosis seen. Previously right ECA was 1.89 m/s. IMPRESSION: 1: Possible 50-69% stenosis of the right ECA, which was noted on the prior study. 2: Otherwise, there is no grayscale or Doppler evidence of significant vascular stenosis. Dictated by: Dictated on workstation # [id number]
== END ==
LOC: RAD 12:06
PROVIDERS: ATTEND Internal Medicine
DX: R42 Dizziness and giddiness (principal)
CPT/HCPCS: 93880

== ENCOUNTER → 2019-05-11 | Outpatient (CLI) | payer MEDICARE ==
--- NOTE | 2019-05-11 14:55 | Diagnostic Imaging Report ---
INDICATION: Pneumonia. FINDINGS: There is cardiomegaly. There has been previous median sternotomy and coronary bypass graft. There is some left basilar atelectasis and/or pneumonitis. There is no pleural effusion or pneumothorax. Mediastinum is unremarkable. IMPRESSION: Left basilar atelectasis and/or pneumonitis. Cardiomegaly. Dictated by: Dictated on workstation # [id number]
== END ==
LOC: RAD 13:52
PROVIDERS: ATTEND Internal Medicine
DX: J18.9 Pneumonia, unspecified organism (principal)
CPT/HCPCS: 71046

== ENCOUNTER → 2019-08-04 | Outpatient (CLI) | payer MEDICARE ==
[~2019-08-04] MED LIST changes: +GLIM4TAB3 PO; -INDO50CA11 PO; +INDO50CA82 PO; +OMEP-280 PO; -OMEP20CA13 PO; +RT-ALBUTEROL SULF 2.5 MG/3 ML PRE-MIX VIAL INH ONE; +SIMV20TA26 PO; -SIMV20TA3 PO; +SIMV40TA25 PO; -SIMV40TA4 PO
[2019-08-04 08:12] LABS: CREATININE SERUM 1.33 MG/DL (0.60-1.30)
--- NOTE | 2019-08-04 09:22 | Diagnostic Imaging Report ---
PROCEDURE: CT chest with contrast only. TECHNIQUE: Multiple contiguous axial images were obtained through the chest after administration of intravenous contrast. Auto Exposure Controls were utilized during the CT exam to meet ALARA standards for radiation dose reduction. INDICATION: Disorders of the lung, pneumonia, cough COMPARISON: 02/24/2018 and 06/24/2017 FINDINGS: Postsurgical changes of a prior CABG. No significant adenopathy within the chest. The heart is mildly enlarged. No pericardial effusion. No aneurysmal dilatation of the thoracic aorta. No pleural effusion. No pneumothorax. Scarring within the posterior aspect of the left lung is again identified and unchanged. A 0.9 cm right lower lobe pulmonary nodule inferiorly is again identified and unchanged from prior imaging. No new pulmonary nodules. The trachea is patent. Diffusely decreased density of the liver. Tiny nonobstructing right renal calculus. Left renal cyst. Additional tiny renal hypodensities are present which is too small to completely characterize. The visualized upper abdomen is otherwise unremarkable. Scattered osseous degenerative changes without acute osseous abnormality. Narrowing of the origin of the celiac artery. IMPRESSION: No acute abnormality within the chest. Persistent left basilar scarring with stable benign right lower lobe pulmonary nodule. Fatty infiltration of the liver. 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 Additional findings as above. Dictated by: Dictated on workstation # [id number]
== END ==
LOC: RT 07:35
PROVIDERS: ATTEND Nurse Practitioner Family
DX: J18.8 Other pneumonia, unspecified organism (principal); J98.4 Other disorders of lung; J30.9 Allergic rhinitis, unspecified; G47.33 Obstructive sleep apnea (adult) (pediatric); R91.1 Solitary pulmonary nodule; K76.0 Fatty (change of) liver, not elsewhere classified; I77.4 Celiac artery compression syndrome; I51.7 Cardiomegaly; N28.1 Cyst of kidney, acquired; M19.90 Unspecified osteoarthritis, unspecified site; Z95.1 Presence of aortocoronary bypass graft
CPT/HCPCS: 36415; 71260; 82565; 84520; 94060; 94726; 94729

== ENCOUNTER 2019-08-21 19:28 | Outpatient (CLI) | payer MEDICARE ==
[~2019-08-21 19:28] MED LIST changes: -RT-ALBUTEROL SULF 2.5 MG/3 ML PRE-MIX VIAL INH ONE
== END 2019-08-22 04:45 | disposition home or self-care (01) ==
LOC: SLEEP 19:28
PROVIDERS: ATTEND Nurse Practitioner Family
DX: G47.33 Obstructive sleep apnea (adult) (pediatric) (principal); G47.36 Sleep related hypoventilation in conditions classified elsewhere; G47.50 Parasomnia, unspecified; G47.10 Hypersomnia, unspecified

== ENCOUNTER → 2019-09-08 | Outpatient (CLI) | payer MEDICARE ==
[~2019-09-08] MED LIST changes: +ACHYD1T PO; -GLIM4TAB3 PO; +GLIM4TAB5 PO; -HYDR-3820 PO; -OMEP-280 PO; +OMEP20CA18 PO
--- NOTE | 2019-09-08 16:14 | Diagnostic Imaging Report ---
INDICATION: Dyspnea, COPD. TECHNIQUE: Two-view chest, 4:10 p.m. CORRELATION STUDY: 05/11/2019. FINDINGS: Post-sternotomy and coronary artery bypass changes. Unchanged cardiac enlargement and prominent mediastinum. Vasculature is overall unchanged. Likely areas of fibrosis about the left mid and lower lung farah. Superimposed infiltrate is considered less likely. Right lung is generally stable and unremarkable. Visualized osseous structures are unremarkable. IMPRESSION: 1. Likely fibrotic-type changes about the left mid and lower lung farah. No definitive consolidating infiltrate to suggest pneumonia. 2. Unchanged severity cardiac enlargement and prominent mediastinum with post-sternotomy changes. Dictated by: Dictated on workstation # [id number]
== END ==
LOC: RAD 15:53
PROVIDERS: ATTEND Internal Medicine
DX: I51.7 Cardiomegaly (principal); J44.9 Chronic obstructive pulmonary disease, unspecified; I25.10 Atherosclerotic heart disease of native coronary artery without angina pectoris; I25.2 Old myocardial infarction
CPT/HCPCS: 71046

== ENCOUNTER → 2019-12-08 | Outpatient (CLI) | payer MEDICARE ==
--- NOTE | 2019-12-08 13:48 | Diagnostic Imaging Report ---
PROCEDURE: CT abdomen and pelvis without contrast. TECHNIQUE: Multiple contiguous axial images were obtained through the abdomen and pelvis without the use of intravenous contrast. Auto Exposure Controls were utilized during the CT exam to meet ALARA standards for radiation dose reduction. INDICATION: Bladder cancer. FINDINGS: Imaging through the lung bases does show some scarring or subsegmental atelectasis in the left lower lobe. No discrete liver mass is detected. Gallbladder appears to be surgically absent. No biliary ductal dilatation is seen. Pancreas and spleen are unremarkable. No adrenal mass is detected. The right kidney is unremarkable. Left kidney does contain a 3.9 cm low-density lesion in the upper pole medially. This low density may represent a cyst. No definite calculi or hydronephrosis is identified. Aorta is calcified but nonaneurysmal. The small and large bowel loops are normal in caliber. There is no obstruction. There is diverticulosis of the sigmoid and descending colon but no evidence of acute diverticulitis. There is no free fluid or fluid collection identified. No central retroperitoneal or mesenteric lymphadenopathy is seen. The bladder is decompressed. Prostate is normal in size and contains calcifications. No definite pelvic lymphadenopathy is identified. Bony structures are nonacute. IMPRESSION: 1. Uncomplicated diverticulosis. 2. No evidence of abdominal or pelvic lymphadenopathy or metastatic disease. No acute feature is detected. Dictated by: Dictated on workstation # [id number]
== END ==
LOC: RAD 11:51
PROVIDERS: ATTEND Family Medicine
DX: C67.9 Malignant neoplasm of bladder, unspecified (principal); K57.30 Diverticulosis of large intestine without perforation or abscess without bleeding; R19.8 Other specified symptoms and signs involving the digestive system and abdomen
CPT/HCPCS: 74176

== ENCOUNTER → 2019-12-13 | Outpatient (CLI) | payer MEDICARE ==
--- NOTE | 2019-12-13 12:44 | Diagnostic Imaging Report ---
PROCEDURE: US Renal Bilateral. TECHNIQUE: Multiple real-time grayscale images were obtained over the kidneys in various projections bilaterally. INDICATION: Left renal cyst noted on recent CT. Correlation is made with CT study from 12/08/2019. Right kidney measures 10.5 x 5.8 x 6.8 cm and left kidney measures 10.4 x 4.9 x 5.9 cm. Cortical thickness and echogenicity is unremarkable. There is a cyst in the left kidney measuring approximately 2.5 x 3.6 x 3.4 cm. No internal vascularity is seen, this likely accounts for the CT abnormality. There are no calculi or hydronephrosis. IMPRESSION: Left renal cysts. No other significant abnormality is seen. Dictated by: Dictated on workstation # [id number]
== END ==
LOC: RAD 11:33
PROVIDERS: ATTEND Family Medicine
DX: N28.1 Cyst of kidney, acquired (principal)
CPT/HCPCS: 76770

== ENCOUNTER 2020-02-02 21:13 | Emergency (ER) | payer MEDICARE ==
[~2020-02-02] VITALS: Ht 170 cm; Wt 115.0 kg
--- OUTSIDE RECORDS SUMMARY | 2020-02-02 21:29 | XMS REPORT | CCD ---
Author Author Sheng Bettencourt D.O. Organization [facility] Address [address] [place] [address] Phone Care Team Providers Care Fishing Guide Name Role Phone PP Unavailable CCM Unavailable Summary Purpose Interface Exchange Insurance Providers Payer name Policy type / Coverage type Covered democrat ID Effective Begin Date Effective End Date WPS MEDICARE PART B [place] Medicare Part B [id number] 2018 Unknown [facility] Medicare Part B [id number] 2018 Un known Family history Mother Diagnosis Age At Onset Diabetes mellitus Type 2 Unknown Hypercholesterolemia Unknown Father Diagnosis Age At Onset No Family Disease Entered N/A Social History Social History Element Codes Description Effective Dates Marital status Unknown 03/11/2013 Number of children Unknown 4 03/11/2013 Employment Unknown Retired 03/11/[address]: 7877989 Former smoker 03/11/[address]: 874838 Currently drinks alc ohol Socially 03/11/2013 Has the patient ever used illegal drugs? Unknown Has nev er used illegal drugs 03/11/2013 Allergies, Adverse Reactions, Alerts Substance Reaction Codes Entered Date Inactivated Date Status * NO KNOWN FOOD ALLERGIES Unknown 03/11/2013 No Inactiv e Date Active _ Unknown 01/12/2020 No Inactive Date Active * NO KNOWN ENVIRONMENTAL ALLERGIES Unknown 03/11/2013 N o Inactive Date Active Problems Condition Codes Effective Dates Condition Status Allergic rhinitis ICD-9: 477.9 ICD-10: J30.9 05/13/2019 Active Diabetes mellitus type 1, controlled, insulin dependen t ICD-9: 250.01 ICD-10: E10.9 01/12/2020 Active Encounter for general adult medical examination withou t abnormal findings ICD-9: V70.0 ICD-10: Z00.00 08/04/2014 Active Esophageal reflux ICD-9: 530.81 ICD-10: K21.9 12/07/2019 Active Obstructive sleep apnea (adult) (pediatric) ICD-9: 327 .23 ICD-10: G47.33 10/12/2019 Active Renal cyst, left ICD-9: 753.10 ICD-10: N28.1 12/08/2019 Active History of bladder cancer ICD-9: V10.51 ICD-10: Z85.51 12/07/2019 Active DM w/o complication type II, uncontrolled ICD-9: 250.0 2 ICD-10: E11.65 08/04/2014 Active Other dyspnea and respiratory abnormality ICD-9: 786.0 9 ICD-10: R06.09 10/12/2019 Active Edema ICD-9: 782.3 ICD-10: R60.9 10/20/2019 Active Hypotension ICD-9: 458.9 ICD-10: I95.9 10/12/2019 Active Chronic kidney disease, stage 1 ICD-9: 585.1 ICD-10: N18.1 04/21/2018 Active Essential (primary) hypertension ICD-9: 401.9 ICD-10: I10 08/04/2014 Active Hyperlipidemia, unspecified ICD-9: 272.4 ICD-10: E78.5 08/04/2014 Active Paroxysmal atrial fibrillation ICD-9: 427.31 ICD-10: I48.0 07/22/2018 Active Upper respiratory infection ICD-9: 465.9 ICD-10: J06.9 06/02/2019 Active Sinusitis ICD-9: 473.9 ICD-10: J32.9 05/13/2019 Active Pneumonia ICD-9: 486 ICD-10: J18.9 04/26/2019 Active Acute sinusitis, unspecified ICD-9: 461.9 ICD-10: J01.90 11/19/2018 Active Cervicalgia ICD-9: 723.1 ICD-10: M54.2 11/19/2018 Active Myalgia, unspecified site ICD-9: 729.1 ICD-10: M79.10 11/19/2018 Active 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, UNCONTROLLED ICD-9: 250.03 ICD-10: E10.9 01/16/2015 Active Low back pain ICD-9: 724.2 ICD-10: M54.5 07/22/2018 Active Benign prostatic hyperplasia with lower urinary tract symptoms ICD-9: 600.21 ICD-10: N40.1 04/21/2018 Active FLU VACCINE ICD-9: V04.81 ICD-10: Z23 04/22/2017 Active Type 2 diabetes mellitus with diabetic neuropathy, uns pecified ICD-9: 250.60 ICD-10: E11.40 07/25/2015 Active Mixed hyperlipidemia ICD-9: 272.2 ICD-10: E78.2 01/06/2018 Active Other fatigue ICD-9: 780.79 ICD-10: R53.83 09/16/2016 Active Actinic keratosis ICD-9: 702.0 ICD-10: L57.0 10/22/2017 Active Localized swelling, mass and lump, left lower limb ICD -9: 782.2 ICD-10: R22.42 04/22/2017 Active OSTEOARTHRISIS MULTI SITES ICD-9: 715.98 ICD-10: M19.90 04/22/2017 Active Pain in left leg ICD-9: 729.5 ICD-10: M79.605 04/22/2017 Active Pain in right thigh ICD-9: 729.5 ICD-10: M79.651 04/22/2017 Active Anemia, unspecified ICD-9: 285.9 ICD-10: D64.9 09/16/2016 Active Angina pectoris, unspecified ICD-9: 413.9 ICD-10: I20.9 10/10/2016 Active Chronic obstructive pulmonary disease, unspecified ICD -9: 496 ICD-10: J44.9 08/30/2015 Active Cough ICD-9: 786.2 ICD-10: R05 08/30/2015 Active Wheezing ICD-9: 786.07 ICD-10: R06.2 08/30/2015 Active Acute bronchitis, unspecified ICD-9: 466.0 ICD-10: J20.9 08/28/2015 Active Other instability, right knee ICD-9: 718.86 ICD-10: M25.361 07/23/2015 Active Unspecified osteoarthritis, unspecified site ICD-9: 71 6.90 ICD-10: M19.90 07/23/2015 Active Pain in leg, unspecified ICD-9: 729.5 ICD-10: M79.606 05/08/2015 Active RENAL INSUFFICIENCY - ACUTE ICD-9: 593.9 01/18/2015 Acti ve ANEMIA NOS ICD-9: 285.9 01/16/2015 Active MALAISE AND FATIGUE ICD-9: 780.79 04/28/2013 Active Skin lesion ICD-9: 709.9 09/29/2014 Active CAD ICD-9: 414.00 08/04/2014 Active 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I, UNCONTROLLED ICD-9: 250.02 2014 Active HYPERLIPIDEMIA NEC/NOS ICD-9: 272.4 08/04/2014 Active HYPERTENSION ICD-9: 401.9 08/04/2014 Active Medical non-compliance ICD-9: V15.81 08/04/2014 Active ROUTINE MEDICAL EXAM ICD-9: V70.0 08/04/2014 Active GASTROENTERITIS ICD-9: 558.9 02/18/2014 Active GERD ICD-9: 530.81 02/18/2014 Active FLU VACCINE ICD-9: V04.81 07/22/2013 Active 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 ICD-9: 250.01 03/12/2013 Activ e Hypertension Unknown 03/11/2013 Active Neuropathy ICD-9: 355.9 03/11/2013 Active RESTLESS LEGS SYNDROME ICD-9: 333.94 03/11/2013 Active Medications Medication Codes Instructions Start Date Stop Date Status Fill Instructions Flomax 0.4 mg capsule RxNorm: 949364 TAKE TWO CAPSULES BY MOUTH EVERY EVENING 01/21/2020 07/18/2020 Active Flonase Allergy Relief 50 mcg/actuation nasal spray,suspensi on RxNorm: 3431355 2 [place] Nasal QPM 01/12/2020 05/11/2020 Active omeprazole 20 mg capsule,delayed release RxNorm: 185716 1 Capsule(s) Oral two times a day 01/12/2020 07/10/2020 Active simvastatin 20 mg tablet RxNorm: 729875 1 Tablet(s) Oral QD 020 04/02/2020 Active Needs updated fasting labs b efore 90 day refill Flomax 0.4 mg capsule RxNorm: 281295 TAKE TWO CAPSULES BY MOUTH EVERY EVENING 11/11/2019 01/20/2020 Inactive glimepiride 2 mg tablet RxNorm: 464818 1 Tablet(s) Oral QD 10/27/19 20 No Stop Date Active gabapentin 400 mg capsule RxNorm: 232888 1 Capsule(s) Oral QPM 10/0604/24/2020 Active potassium chloride ER 20 mEq tablet,extended release RxNorm: 282908 1 Tablet(s) Oral QD to take with lasix 10/20/2019 10/26/2019 Inactive furosemide 40 mg tablet RxNorm: 705634 1 Tablet(s) Oral QAM for swelling 10/20/2019 10/26/2019 Inactive albuterol sulfate HFA 90 mcg/actuation aerosol inhaler RxNor m: 8609936 1-2 Puff(s) Inhalation as needed 10/12/2019 No Stop Date Active Zyrtec 10 mg tablet RxNorm: 5958265 1 Tablet(s) Oral QAM 10/12/2019 No Stop Date Active aspirin 81 mg tablet,delayed release RxNorm: 486659 1 Tablet(s) Oral QD 10/12/2019 No Stop Date Active Symbicort 160 mcg-4.5 mcg/actuation HFA aerosol inhaler RxNo rm: 4730577 2 Puff(s) Inhalation QD 10/12/2019 No Stop Date Active lisinopril 20 mg tablet RxNorm: 687693 1 Tablet(s) Oral QD 10/12/19 20 01/10/2020 Inactive simvastatin 20 mg tablet RxNorm: 639192 1 Tablet(s) Ora l QD Needs updated fasting labs 09/20/2019 01/02/2020 Inactive Needs updated fa sting labs before 90 day refill Flomax 0.4 mg capsule RxNorm: 387557 TAKE TWO CAPSULES BY MOUTH EVERY EVENING 08/03/2019 11/10/2019 Inactive gabapentin 400 mg capsule RxNorm: 845208 TAKE ONE CAPSU LE BY MOUTH EVERY EVENING 08/02/2019 10/26/2019 Inactive simvastatin 20 mg tablet RxNorm: 899484 1 Tablet(s) Ora l QD Needs updated fasting labs 07/21/2019 08/19/2019 Inactive Needs updated fa sting labs before 90 day refill simvastatin 20 mg tablet RxNorm: 793150 1 Tablet(s) Ora l QD Needs updated fasting labs 06/23/2019 07/20/2019 Inactive Needs updated fa sting labs before 90 day refill Flomax 0.4 mg capsule RxNorm: 124347 1 Capsule(s) Oral QD 05/13/2019 10/19/2019 Inactive Flomax 0.4 mg capsule RxNorm: 245904 TAKE TWO CAPSULES BY MOUTH EVERY EVENING 03/19/2019 05/12/2019 Inactive Augmentin 500 mg-125 mg tablet RxNorm: 748310 1 Tablet(s) PO BID 03/03/2019 Inactive baclofen 10 mg tablet RxNorm: 572141 TAKE ONE TABLET BY MOUTH EVERY NIGHT AT BEDTIME FOR PAIN OR SPASMS 01/14/2019 05/12/2019 Inactive Flomax 0.4 mg capsule RxNorm: 753450 TAKE TWO CAPSULES BY MOUTH EVERY EVENING 01/12/2019 03/18/2019 Inactive gabapentin 400 mg capsule RxNorm: 346907 1 Capsule(s) PO QPM 201806/27/2019 Inactive baclofen 10 mg tablet RxNorm: 616281 1 Tablet(s) PO QHS for my n/spasm 12/15/2018 01/13/2019 Inactive simvastatin 20 mg tablet RxNorm: 156689 TAKE ONE TABLET BY MOUT H DAILY 12/11/2018 06/22/2019 Inactive OneTouch Ultra Blue Test Strip RxNorm: Use 1 rigoberto t strip three times daily to check blood sugar (Dx:E11.65) 12/07/2018 No Stop Date Active gabapentin 400 mg capsule RxNorm: 425919 TAKE ONE CAPSU LE BY MOUTH EVERY EVENING 12/04/2018 12/29/2018 Inactive baclofen 10 mg tablet RxNorm: 485735 1 Tablet(s) PO QHS for my n/spasm 11/19/2018 12/15/2018 Inactive Flomax 0.4 mg capsule RxNorm: 983728 2 Capsule(s) PO QPM 09/15/2018 0 12/13/2018 Inactive WOULD LIKE 90DS!!! gabapentin 400 mg capsule RxNorm: 543446 TAKE ONE CAPSU LE BY MOUTH EVERY EVENING 07/21/2018 10/18/2018 Inactive simvastatin 20 mg tablet RxNorm: 255627 1 Tablet(s) PO QD 06/15/2018 12/10/2018 Inactive Flomax 0.4 mg capsule RxNorm: 127837 TAKE TWO CAPSULES BY MOUTH EVERY EVENING 06/02/2018 09/15/2018 Inactive WOULD LIKE 90DS!!! Flomax 0.4 mg capsule RxNorm: 634729 2 Capsule(s) PO QPM 04/21/2018 1 07/20/2017 Inactive simvastatin 20 mg tablet RxNorm: 165844 1 Tablet(s) PO QD Take 1 tablet by mouth daily. Patient due for labwork before further refill. 04/06/20182017 Inactive simvastatin 20 mg tablet RxNorm: 527119 Tablet(s) TAKE ONE TABLET BY MOUTH DAILY 03/25/2018 06/15/2018 Inactive simvastatin 20 mg tablet RxNorm: 040622 Tablet(s) TAKE ONE TABLET BY MOUTH DAILY due for appt 12/29/2017 03/25/2018 Inactive simvastatin 20 mg tablet RxNorm: 600974 TAKE ONE TABLET BY MOUT H DAILY 09/03/2017 12/29/2017 Inactive simvastatin 20 mg tablet RxNorm: 627246 1 Tablet(s) PO QD 10/22/2016 11/18/2018 Inactive isosorbide mononitrate ER 60 mg tablet,extended release 24 h r RxNorm: 268813 1 Tablet(s) PO QD 10/22/2016 04/21/2017 Inactive isosorbide mononitrate ER 60 mg tablet,extended release 24 h r RxNorm: 766189 1 Tablet(s) PO QD 10/10/2016 10/21/2016 Inactive simvastatin 20 mg tablet RxNorm: 495300 1 Tablet(s) PO QD 10/10/2016 10/21/2016 Inactive gabapentin 400 mg capsule RxNorm: 386045 1 Capsule(s) PO QPM 201609/20/2016 Inactive Toujeo SoloStar 300 unit/mL (1.5 mL) subcutaneous insulin pe n RxNorm: 6153342 35 Unit(s) SQ QAM 07/23/2016 07/22/2016 Inactive Toujeo SoloStar 300 unit/mL (1.5 mL) subcutaneous insulin pe n RxNorm: 6664099 40 Unit(s) SQ QAM 09/01/2015 No Stop Date Active Symbicort 160 mcg-4.5 mcg/actuation HFA aerosol inhaler RxNo rm: 9787819 2 Puff(s) INH BID 08/31/2015 09/09/2015 Inactive prednisone 20 mg tablet RxNorm: 358445 1 Tablet(s) PO BID 08/29/2015 09/02/2015 Inactive albuterol sulfate 2.5 mg/3 mL (0.083 %) solution for n ebulization RxNorm: 233057 1 Unit(s) INH Q4H as needed 08/29/2015 10/09/2016 Inactive levothyroxine 75 mcg tablet RxNorm: 671387 1 Tablet(s) PO QD 201507/27/2015 Inactive levothyroxine 75 mcg tablet RxNorm: 707556 1 Tablet(s) PO QD 201511/18/2018 Inactive levothyroxine 75 mcg tablet RxNorm: 888765 1 Tablet(s) PO QD 201507/27/2015 Inactive lisinopril 20 mg-hydrochlorothiazide 25 mg tablet RxNorm: 19 7887 TAKE ONE TABLET BY MOUTH EVERY MORNING. REPLACES PLAIN LISINOPRIL 03/06/2015 04/21/2017 Inactive lisinopril 20 mg-hydrochlorothiazide 25 mg tablet RxNorm: 19 7887 TAKE ONE TABLET BY MOUTH EVERY MORNING. REPLACES PLAIN LISINOPRIL 09/08/2014 03/05/2015 Inactive allopurinol 100 mg tablet RxNorm: 828262 1 Tablet(s) PO BID 015 10/09/2016 Inactive [SAVINGS FOR NON-COVERED YULIA -- BIN:[id number], PCN: [id number], Group: [id number], ID# [id number], Questions: . THIS IS NOT INSURANCE.] levothyroxine 50 mcg tablet RxNorm: 576356 1 Tablet(s) PO QD 201407/26/2015 Inactive [AttnRPh: Saving apply/adjud icate RxGRP:SG20 RxBIN:[id number] RxPCN: ID#:[id number]] Zegerid 40 mg-1.1 gram capsule RxNorm: 558447 1 Capsule(s) PO QD 03/03/2014 Inactive [AttnRPh: Saving apply/adjud icate RxGRP:SG20 RxBIN:[id number] RxPCN: ID#:[id number]] ondansetron 8 mg disintegrating tablet RxNorm: 776752 1 Tablet(s) PO Q8H as needed for nausea 02/18/2014 08/03/2014 Inactive lisinopril 20 mg-hydrochlorothiazide 25 mg tablet RxNorm: 19 7887 1 Tablet(s) PO QAM replaces plain lisinopril 08/23/2013 02/18/2014 Inactive lisinopril 20 mg-hydrochlorothiazide 25 mg tablet RxNorm: 82 3971 1 Tablet(s) PO QAM replaces plain lisinopril 08/05/2013 08/22/2013 Inactive lisinopril 20 mg-hydrochlorothiazide 25 mg tablet RxNorm: 82 3971 1 Tablet(s) PO QAM replaces plain lisinopril 07/29/2013 08/04/2013 Inactive lisinopril 20 mg-hydrochlorothiazide 25 mg tablet RxNorm: 82 3971 1 Tablet(s) PO QAM replaces plain lisinopril 07/26/2013 07/28/2013 Inactive gabapentin 400 mg capsule RxNorm: 962618 1 Capsule(s) PO QPM 201207/28/2013 Inactive gabapentin 400 mg capsule RxNorm: 136116 1 Capsule(s) PO QPM 201206/26/2013 Inactive lisinopril 20 mg-hydrochlorothiazide 25 mg tablet RxNorm: 82 3971 1 Tablet(s) PO QAM replaces plain lisinopril 04/28/2013 07/29/2013 Inactive gabapentin 400 mg capsule RxNorm: 782517 1 Capsule(s) PO QPM 201204/27/2013 Inactive gabapentin 400 mg capsule RxNorm: 192952 1 Capsule(s) PO QPM 201203/10/2013 Inactive gabapentin 400 mg capsule RxNorm: 563847 1 Capsule(s) PO QPM 201203/14/2013 Inactive Lantus Solostar 100 unit/mL (3 mL) Sub-Q Insulin Pen RxNorm: 059299 20 Unit(s) SQ QPM 03/11/2013 03/15/2013 Inactive Toujeo SoloStar 300 unit/mL (1.5 mL) subcutaneous insulin pe n RxNorm: 2503646 35 Unit(s) SQ QAM No Start Date Active isosorbide mononitrate ER 60 mg tablet,extended release 24 h r RxNorm: 417594 1 Tablet(s) PO QD No Start Date Active Eliquis 5 mg tablet RxNorm: 1080134 1 Tablet(s) PO BID No Start Date Active metformin 500 mg tablet RxNorm: 456524 1 Tablet(s) PO BID No Start Da te Active levothyroxine 50 mcg tablet RxNorm: 431023 1 Tablet(s) PO QD No Start Date Active Norvasc 10 mg tablet RxNorm: 899522 1 Tablet(s) PO QHS No Start Date Active Toujeo SoloStar 300 unit/mL (1.5 mL) subcutaneous insulin pe n RxNorm: 2731202 30 Unit(s) SQ QAM No Start Date Active glimepiride 4 mg tablet RxNorm: 488507 1 Tablet(s) PO QHS No Start Date 07/26/2015 Inactive omeprazole 20 mg capsule,delayed release RxNorm: 033229 1 Capsu le(s) PO QD No Start Date 01/11/2020 Inactive allopurinol 100 mg tablet RxNorm: 199339 1 Tablet(s) PO BID No Star t Date 08/10/2014 Inactive Lantus Solostar 100 unit/mL (3 mL) subcutaneous insulin pen RxNorm: 723515 30 Unit(s) SQ QD No Start Date 08/03/2014 Inactive Levemir FlexTouch 100 unit/mL (3 mL) subcutaneous insulin pe n RxNorm: 494396 25 Unit(s) SQ QAM No Start Date 07/23/2015 Inactive Lantus 100 unit/mL Sub-Q RxNorm: 652991 30 Unit(s) SQ QHS No Start Date 05/25/2013 Inactive Lantus Solostar 100 unit/mL (3 mL) Sub-Q Insulin Pen RxNorm: 862630 20 Unit(s) SQ QPM No Start Date 03/10/2013 Inactive OneTouch Ultra Blue Test Strip RxNorm: Use 1 rigoberto t strip three times daily to check blood sugar (Dx:E11.65) No Start Date 12/06/2018 Inactive Levemir FlexTouch 100 unit/mL (3 mL) subcutaneous insulin pe n RxNorm: 993620 30- 35 Unit(s) SQ QAM No Start Date 07/23/2015 Inactive Levemir Flexpen 100 unit/mL (3 mL) solution subcutaneo us insulin pen RxNorm: 247344 20-25 Unit(s) SQ QD No Start Date 07/28/2013 Inactive lisinopril 20 mg tablet RxNorm: 528023 1 Tablet(s) PO QD No Start D ate 10/11/2019 Inactive indomethacin ER 75 mg capsule,extended release RxNorm: 06390 2 1 Capsule(s) PO QAM No Start Date 04/27/2013 Inactive indomethacin ER 75 mg capsule,extended release RxNorm: 48703 2 1 Capsule(s) PO QD No Start Date 01/16/2015 Inactive Chlortab-4 oral RxNorm: 396717 oral No Start Date 10/11/2019 Inac tive Vitamin D3 5,000 unit tablet RxNorm: 947276 1 Tablet(s) PO QD No St art Date 08/03/2014 Inactive Levemir Flexpen 100 unit/mL (3 mL) solution subcutaneo us insulin Pen RxNorm: 860400 20 Unit(s) SQ QHS No Start Date 03/10/2013 Inactive Vytorin 10 mg-40 mg tablet RxNorm: 8144260 1/2 Tablet(s) PO QD No S tart Date 04/20/2018 Inactive oxymetazoline-menthol 0.05 % nasal spray RxNorm: 4400030 [place] N COTY No Start Date 10/11/2019 Inactive Patient states he ta kes every 10 hours Toujeo SoloStar 300 unit/mL (1.5 mL) subcutaneous insulin pe n RxNorm: 2251662 35 Unit(s) SQ QAM No Start Date 07/22/2016 Inactive Lantus Solostar 100 unit/mL (3 mL) subcutaneous insulin pen RxNorm: 609689 20 Unit(s) SQ QD No Start Date 08/03/2014 Inactive aspirin 81 mg tablet RxNorm: 616845 1 Tablet(s) PO QD No Start Date 0 08/03/2014 Inactive metformin 500 mg tablet RxNorm: 719159 1 Tablet(s) PO BID No Start Date 07/28/2013 Inactive glimepiride 4 mg tablet RxNorm: 217409 1 Tablet(s) PO BID No Start Date 01/16/2015 Inactive glimepiride 4 mg tablet RxNorm: 314932 1 Tablet(s) PO QD No Start D ate 08/03/2014 Inactive levothyroxine 25 mcg tablet RxNorm: 162931 1 Tablet(s) PO QD No Sta rt Date 08/10/2014 Inactive doxycycline oral RxNorm: 75273 oral No Start Date 05/12/2019 Inac tive aspirin 81 mg tablet RxNorm: 428996 1 Tablet(s) PO QD No Start Date 0 07/21/2018 Inactive isosorbide mononitrate ER 60 mg tablet,extended release 24 h r RxNorm: 536454 1 Tablet(s) PO BID No Start Date 01/16/2015 Inactive metformin 500 mg tablet RxNorm: 335632 1 Tablet(s) PO BID No Start Date 04/27/2013 Inactive Plavix 75 mg tablet RxNorm: 074761 1 Tablet(s) PO QD No Start Date Inactive glimepiride 4 mg tablet RxNorm: 693735 1 Tablet(s) PO QPM No Start Date 02/21/2019 Inactive Vytorin 10-40 10 mg-40 mg tablet RxNorm: 8213633 1 Tablet(s) PO QHS No Start Date 08/03/2014 Inactive indomethacin 50 mg capsule RxNorm: 201613 1 Capsule(s) PO QHS No St art Date 01/16/2015 Inactive glimepiride 4 mg tablet RxNorm: 124588 1 Tablet(s) PO BID No Start Date 07/28/2013 Inactive Levemir FlexTouch 100 unit/mL (3 mL) subcutaneous insulin pe n RxNorm: 071228 20 Unit(s) SQ QD No Start Date 04/30/2015 Inactive lisinopril 20 mg tablet RxNorm: 065106 1 Tablet(s) PO BID No Start Date 04/27/2013 Inactive Lantus Solostar SubQ RxNorm: Subcutaneous No Start Date 03/15/2013 I nactive Zantac 150 mg tablet RxNorm: 005060 1 Tablet(s) PO QHS No Start Date 10/11/2019 Inactive allopurinol 300 mg tablet RxNorm: 585687 1 Tablet(s) PO QD No Start Date 08/03/2014 Inactive Fish Oil 1,000 mg capsule RxNorm: 1 Capsule(s) PO QD No Start Date 02/21/2019 Inactive indomethacin 50 mg capsule RxNorm: 320074 1 Capsule(s) PO BID No St art Date 04/20/2018 Inactive levothyroxine 50 mcg tablet RxNorm: 621967 1 Tablet(s) PO QD No Sta rt Date 08/10/2014 Inactive glimepiride 4 mg tablet RxNorm: 154771 1 Tablet(s) PO BID No Start Date 03/15/2013 Inactive indomethacin 50 mg capsule RxNorm: 073793 1 Capsule(s) PO QHS No St art Date 04/27/2013 Inactive Medication Administered No Medication Administered data Immunizations Vaccine Codes Date Status Influenza CVX: 135 04/21/2018 Complete Influenza CVX: 135 04/22/2017 Complete Results Observation Observation Code Item Item Code Result Date S ervice Location [facility] 15117 Cholesterol 209 mg/dL 09/17/2016 Unkno wn [facility] 07559 Triglyceride 111 mg/dL 09/17/2016 Unkn own [facility] 13688 HDL CHOLESTEROL 50 mg/dL 09/17/2016 U nknown [facility] 63958 Chol/HDL Ratio 4.18 ratio 09/17/2016 U nknown [facility] 32865 NON-HDL Chol 159 mg/dL 09/17/2016 Unkn own [facility] 52852 LDL Cholesterol 137 mg/dL 09/17/2016 U nknown MEAN GLUC 3622150 Calc Mean Gluc 151 mg/dL 09/17/2016 Unkn own COMPREHENSIVE METABOLIC 92396 AST 23 U/L 2016 Unknown COMPREHENSIVE METABOLIC 81611 ALT 19 U/L 2016 Unknown [facility] MET[facility]OL[facility] 86648 BUN 15 mg/dL 2016 Unknown COMPREHENSIVE METABOLIC 87473 ALBUMIN 4.3 g/dL 2016 Unknown COMPREHENSIVE METABOLIC 80784 CHLORIDE 103 mmol/L 09/17 Unknown COMPREHENSIVE METABOLIC 70595 Bili Total 0.6 mg/dL 09/17 Unknown COMPREHENSIVE METABOLIC 28416 ALK PHOS 60 U/L 2016 Unknown COMPREHENSIVE METABOLIC 44450 SODIUM 140 mmol/L 09/17 Unknown COMPREHENSIVE METABOLIC 45325 CREATININE 1.03 mg/dL 09/04 Unknown COMPREHENSIVE METABOLIC 72580 CALCIUM 9.5 mg/dL 2016 Unknown COMPREHENSIVE METABOLIC 39682 POTASSIUM 3.9 mmol/L 09/17 Unknown COMPREHENSIVE METABOLIC 97327 Total Protein 6.9 g/dL Unknown COMPREHENSIVE METABOLIC 82115 Glucose 94 mg/dL 2016 Unknown COMPREHENSIVE METABOLIC 50497 Bicarbonate 28 mmol/L 09/04 Unknown COMPREHENSIVE METABOLIC 27958 AGAP 9 mmol/L 2016 Unknown GFR CALC 9194749 GFR Afr Amr >60 mL/min 09/17/2016 Unknow n GFR CALC 8653695 GFR Non Afr Amr >60 mL/min 09/17/2016 Un known THYROID STIMULATING HORMONE 93747 TSH 4.260 uIU/mL 09/17/2016 Unknown GLYCOSYLATED HEMOGLOBIN TEST 68283 Hgb A1c 74305-4 6.9 % 0 09/17/2016 Unknown FREE T4 51023 T4 Free 1.02 ng/dL 09/17/2016 Unknown COMPLETE BLOOD COUNT 2349602 WBC 8.6 10e9/L 07/26/19 16 Unknown COMPLETE BLOOD COUNT [id number] RBC 4.86 10e12/L 2015 Unknown COMPLETE BLOOD COUNT [id number] HGB 14.6 g/dL 6 Unknown COMPLETE BLOOD COUNT 0563236 HCT DET 43.1 % 6 Unknown COMPLETE BLOOD COUNT 8660669 MCV 88.7 fL 6 Unknown COMPLETE BLOOD COUNT 0080807 MCH 30.0 pg 6 Unknown COMPLETE BLOOD COUNT 5512907 MCHC 33.9 g/dL 6 Unknown COMPLETE BLOOD COUNT 4517745 PLT 267 10e9/L 07/26/19 16 Unknown COMPLETE BLOOD COUNT [id number] MPV 11.5 fL 6 Unknown COMPLETE BLOOD COUNT 2461048 SAM % 64.8 % 6 Unknown COMPLETE BLOOD COUNT 2906632 LY % 16.8 % 6 Unknown COMPLETE BLOOD COUNT 7532354 MON % 12.5 % 6 Unknown COMPLETE BLOOD COUNT [id number] EOS % 5.6 % 6 Unknown COMPLETE BLOOD COUNT 6062569 BASO % 0.3 % 6 Unknown COMPLETE BLOOD COUNT 2215083 RDW 13.4 % 6 Unknown COMPLETE BLOOD COUNT 7758284 ABS SAM 5.57 10e9/L 016 Unknown COMPLETE BLOOD COUNT 2469152 ABS LYMPH 1.44 10e9/L 016 Unknown COMPLETE BLOOD COUNT [id number] ABS MONO 1.08 10e9/L 016 Unknown COMPLETE BLOOD COUNT [id number] ABS EOS 0.48 10e9/L 016 Unknown COMPLETE BLOOD COUNT [id number] ABS BASO 0.03 10e9/L 016 Unknown COMPLETE BLOOD COUNT [id number] RDW-SD 42.9 fL 6 Unknown PSA EQUIMOLAR MATT 60962 PSA EQ 0.78 NG/ML 6 Unknown THYROID STIMULATING HORMONE 94649 TSH 5.292 uIU/ML 07/26/2015 Unknown GLYCOSYLATED HEMOGLOBIN TEST 40713 A1C [place] 52139-7 7.0 % 0 07/26/2015 Unknown GFR CALC 1632152 GFR AA >60 ML/MIN 07/26/2015 Unknown GFR CALC 2567707 GFR NON-AA >60 ML/MIN 07/26/2015 Unknown [facility] 47289 HDL TEST 64 MG/DL 07/26/2015 Unknown [facility] 33961 TRIG 58 MG/DL 07/26/2015 Unknown [facility] 66329 TEST LDL 49 MG/DL 07/26/2015 Unknown [facility] 35386 CHOL 125 MG/DL 07/26/2015 Unknown [facility] 03551 RCHOL/HDL 1.95 RATIO 07/26/2015 Unknow n [facility] 46465 NON-HDL CH 61 MG/DL 07/26/2015 Unknow n COMPREHENSIVE METABOLIC 07888 AST 25 U/L 2015 Unknown COMPREHENSIVE METABOLIC 15152 ALT 23 IU/L 2015 Unknown COMPREHENSIVE METABOLIC 29242 BUN 18 MG/DL 2015 Unknown COMPREHENSIVE METABOLIC 12350 ALBUMIN 4.6 GM/DL 2015 Unknown COMPREHENSIVE METABOLIC 45451 CHLORIDE 100 MMOL/L 07/26 Unknown COMPREHENSIVE METABOLIC 38667 BILI TOT 0.5 MG/DL 2015 Unknown COMPREHENSIVE METABOLIC 18109 ALK PHOS 49 U/L 2015 Unknown COMPREHENSIVE METABOLIC 56546 SODIUM 137 MMOL/L 07/26 Unknown COMPREHENSIVE METABOLIC 81679 CREATININE 1.06 MG/DL 07/08 Unknown COMPREHENSIVE METABOLIC 11681 CALCIUM 9.5 MG/DL 2015 Unknown COMPREHENSIVE METABOLIC 10583 POTASSIUM 4.5 MMOL/L 07/26 Unknown COMPREHENSIVE METABOLIC 74265 PROT TOT 6.5 GM/DL 2015 Unknown COMPREHENSIVE METABOLIC 41885 Glucose 109 MG/DL 2015 Unknown COMPREHENSIVE METABOLIC 96673 BICARB 29 MMOL/L 2015 Unknown COMPREHENSIVE METABOLIC 24429 ANION GAP 8 MEQ/L 2015 Unknown FREE T4 [id number] FREE T4 1.11 NG/DL 07/26/2015 Unknown CULTURE & SENSITIVITY 34234 PROTEIN UR NEG 015 Unknown CULTURE & SENSITIVITY 51256 HEMGLBN UR TR 015 Unknown CULTURE & SENSITIVITY 97371 GLUCOSE UR NEG 015 Unknown CULTURE & SENSITIVITY 57165 KETONES UR NEG 015 Unknown CULTURE & SENSITIVITY 93047 PH U 6.5 01/25/20 15 Unknown CULTURE & SENSITIVITY 69210 SP GR U 1.013 01/25/20 15 Unknown CULTURE & SENSITIVITY 43106 BILRUBN UR NEG 015 Unknown CULTURE & SENSITIVITY 77146 LEUKO UR NEG 01/25/20 15 Unknown CULTURE & SENSITIVITY 07056 NITRITE UR NEG 015 Unknown MICR CUL? [id number] SP TO JOHANA? NO 01/24/2015 Unknown MICR CUL? [id number] APPEAR UR NORMAL 01/24/2015 Unknown MICR CUL? [id number] RBC/uL 2.2 01/24/2015 Unknown MICR CUL? [id number] WBC/uL 2.8 01/24/2015 Unknown MICR CUL? [id number] SQ EPI/uL 1.0 01/24/2015 Unknown MICR CUL? [id number] HYALCST/uL 0.25 01/24/2015 Unknown MICR CUL? [id number] WBC /HPF 1 01/24/2015 Unknown MICR CUL? [id number] RBC /HPF 0 01/24/2015 Unknown GLYCOSYLATED HEMOGLOBIN TEST 69047 A1C HPLC 04510-0 6.6 % 0 01/17/2015 Unknown COMPLETE BLOOD COUNT [id number] WBC 10.1 10e9/L 015 Unknown COMPLETE BLOOD COUNT [id number] RBC 4.60 10e12/L 2014 Unknown COMPLETE BLOOD COUNT [id number] HGB 14.0 g/dL 5 Unknown COMPLETE BLOOD COUNT [id number] HCT DET 39.9 % 5 Unknown COMPLETE BLOOD COUNT [id number] MCV 86.7 fL 5 Unknown COMPLETE BLOOD COUNT [id number] MCH 30.4 pg 5 Unknown COMPLETE BLOOD COUNT [id number] MCHC 35.1 g/dL 5 Unknown COMPLETE BLOOD COUNT [id number] PLT 252 10e9/L 01/18/20 15 Unknown COMPLETE BLOOD COUNT [id number] MPV 11.4 fL 5 Unknown COMPLETE BLOOD COUNT [id number] SAM % 72.9 % 5 Unknown COMPLETE BLOOD COUNT [id number] LY % 13.6 % 5 Unknown COMPLETE BLOOD COUNT [id number] MON % 10.2 % 5 Unknown COMPLETE BLOOD COUNT [id number] EOS % 3.1 % 5 Unknown COMPLETE BLOOD COUNT [id number] BASO % 0.2 % 5 Unknown COMPLETE BLOOD COUNT [id number] RDW 13.6 % 5 Unknown COMPLETE BLOOD COUNT [id number] ABS SAM 7.36 10e9/L 015 Unknown COMPLETE BLOOD COUNT [id number] ABS LYMPH 1.37 10e9/L 015 Unknown COMPLETE BLOOD COUNT [id number] ABS MONO 1.03 10e9/L 015 Unknown COMPLETE BLOOD COUNT [id number] ABS EOS 0.31 10e9/L 015 Unknown COMPLETE BLOOD COUNT [id number] ABS BASO 0.02 10e9/L 015 Unknown COMPLETE BLOOD COUNT [id number] RDW-SD 42.4 fL 5 Unknown GFR CALC 5253788 GFR AA 51.0L ML/MIN 01/17/2015 Unknow n GFR CALC 0002004 GFR NON-AA 42.0L ML/MIN 01/17/2015 Unkno wn FREE T4 86203 FREE T4 1.30 NG/DL 01/17/2015 Unknown THYROID STIMULATING HORMONE 19481 TSH 4.029 uIU/ML 01/17/2015 Unknown COMPREHENSIVE METABOLIC 73307 AST 28 U/L 2014 Unknown COMPREHENSIVE METABOLIC 81840 ALT 25 IU/L 2014 Unknown COMPREHENSIVE METABOLIC 48903 BUN 21 MG/DL 2014 Unknown COMPREHENSIVE METABOLIC 35195 ALBUMIN 4.7 GM/DL 2014 Unknown COMPREHENSIVE METABOLIC 21448 CHLORIDE 102 MMOL/L 01/17 Unknown COMPREHENSIVE METABOLIC 09552 BILI TOT 0.6 MG/DL 2014 Unknown COMPREHENSIVE METABOLIC 61333 ALK PHOS 44 U/L 2014 Unknown COMPREHENSIVE METABOLIC 58752 SODIUM 137 MMOL/L 01/17 Unknown COMPREHENSIVE METABOLIC 64143 CREATININE 1.62 MG/DL 01/04 Unknown COMPREHENSIVE METABOLIC 00018 CALCIUM 9.7 MG/DL 2014 Unknown COMPREHENSIVE METABOLIC 71488 POTASSIUM 4.5 MMOL/L 01/17 Unknown COMPREHENSIVE METABOLIC 77958 PROT TOT 6.5 GM/DL 2014 Unknown COMPREHENSIVE METABOLIC 18862 Glucose 136 MG/DL 2014 Unknown COMPREHENSIVE METABOLIC 91638 BICARB 24 MMOL/L 2014 Unknown COMPREHENSIVE METABOLIC 37890 ANION GAP 11 MEQ/L 2014 Unknown VITAMIN B 12 17418 VIT B 12 482 PG/ML 01/17/2015 Unknow n URIC ACID 20022 URIC ACID 8.5 MG/DL 08/09/2014 Unknown COMPREHENSIVE METABOLIC 94462 AST 27 U/L 2014 Unknown COMPREHENSIVE METABOLIC 69634 ALT 26 IU/L 2014 Unknown COMPREHENSIVE METABOLIC 78960 BUN 17 MG/DL 2014 Unknown COMPREHENSIVE METABOLIC 01652 ALBUMIN 5.0 GM/DL 2014 Unknown COMPREHENSIVE METABOLIC 09995 CHLORIDE 101 MMOL/L 08/09 Unknown COMPREHENSIVE METABOLIC 12398 BILI TOT 0.7 MG/DL 2014 Unknown COMPREHENSIVE METABOLIC 95872 ALK PHOS 53 U/L 2014 Unknown COMPREHENSIVE METABOLIC 48643 SODIUM 136 MMOL/L 08/09 Unknown COMPREHENSIVE METABOLIC 64904 CREATININE 1.14 MG/DL 09/2014 Unknown COMPREHENSIVE METABOLIC 62171 CALCIUM 9.8 MG/DL 2014 Unknown COMPREHENSIVE METABOLIC 24982 POTASSIUM 4.1 MMOL/L 08/09 Unknown COMPREHENSIVE METABOLIC 43242 PROT TOT 7.5 GM/DL 2014 Unknown COMPREHENSIVE METABOLIC 25392 Glucose 110 MG/DL 2014 Unknown COMPREHENSIVE METABOLIC 72270 BICARB 30 MMOL/L 2014 Unknown COMPREHENSIVE METABOLIC 92123 ANION GAP 5 MEQ/L 2014 Unknown GFR CALC 1506974 GFR AA >60 ML/MIN 08/09/2014 Unknown GFR CALC 6748669 GFR NON-AA >60 ML/MIN 08/09/2014 Unknown FREE T4 31320 FREE T4 1.14 NG/DL 08/09/2014 Unknown GLYCOSYLATED HEMOGLOBIN TEST 36782 A1C HPLC 14532-2 6.8 % 0 08/09/2014 Unknown COMPLETE BLOOD COUNT 4887506 WBC 5.9 10e9/L 08/09/19 15 Unknown COMPLETE BLOOD COUNT 2261024 RBC 5.04 10e12/L 2014 Unknown COMPLETE BLOOD COUNT [id number] HGB 15.2 g/dL 5 Unknown COMPLETE BLOOD COUNT 2468007 HCT DET 44.3 % 5 Unknown COMPLETE BLOOD COUNT [id number] MCV 87.9 fL 5 Unknown COMPLETE BLOOD COUNT 6960406 MCH 30.2 pg 5 Unknown COMPLETE BLOOD COUNT 8648862 MCHC 34.3 g/dL 5 Unknown COMPLETE BLOOD COUNT 9376857 PLT 262 10e9/L 08/09/19 15 Unknown COMPLETE BLOOD COUNT 3323497 MPV 10.9 fL 5 Unknown COMPLETE BLOOD COUNT [id number] SAM % 58.7 % 5 Unknown COMPLETE BLOOD COUNT 9404611 LY % 21.5 % 5 Unknown COMPLETE BLOOD COUNT [id number] MON % 14.0 % 5 Unknown COMPLETE BLOOD COUNT [id number] EOS % 5.3 % 5 Unknown COMPLETE BLOOD COUNT [id number] BASO % 0.5 % 5 Unknown COMPLETE BLOOD COUNT [id number] RDW 13.1 % 5 Unknown COMPLETE BLOOD COUNT [id number] ABS SAM 3.46 10e9/L 015 Unknown COMPLETE BLOOD COUNT [id number] ABS LYMPH 1.27 10e9/L 015 Unknown COMPLETE BLOOD COUNT [id number] ABS MONO 0.83 10e9/L 015 Unknown COMPLETE BLOOD COUNT [id number] ABS EOS 0.31 10e9/L 015 Unknown COMPLETE BLOOD COUNT [id number] ABS BASO 0.03 10e9/L 015 Unknown COMPLETE BLOOD COUNT [id number] RDW-SD 41.2 fL 5 Unknown THYROID STIMULATING HORMONE 55502 TSH 5.395 uIU/ML 08/09/2014 Unknown LIPID GROUP 50671 HDL TEST 52 MG/DL 08/09/2014 Unknown LIPID GROUP 24870 TRIG 113 MG/DL 08/09/2014 Unknown LIPID GROUP 85868 TEST LDL 158 MG/DL 08/09/2014 Unknown LIPID GROUP 10944 CHOL 233 MG/DL 08/09/2014 Unknown LIPID GROUP 93021 RCHOL/HDL 4.48 RATIO 08/09/2014 Unknow n LIPID GROUP 65584 NON-HDL CH 181 MG/DL 08/09/2014 Unknow n COMPLETE BLOOD COUNT [id number] WBC 6.8 10e9/L 09/09/19 14 Unknown COMPLETE BLOOD COUNT [id number] RBC 5.18 10e12/L 2013 Unknown COMPLETE BLOOD COUNT 3820433 HGB 15.2 g/dL 4 Unknown COMPLETE BLOOD COUNT [id number] HCT DET 44.7 % 4 Unknown COMPLETE BLOOD COUNT 1841834 MCV 86.3 fL 4 Unknown COMPLETE BLOOD COUNT [id number] MCH 29.3 pg 4 Unknown COMPLETE BLOOD COUNT 6943031 MCHC 34.0 g/dL 4 Unknown COMPLETE BLOOD COUNT [id number] PLT 236 10e9/L 09/09/19 14 Unknown COMPLETE BLOOD COUNT 7825622 MPV 11.0 fL 4 Unknown COMPLETE BLOOD COUNT 9755577 SAM % 58.2 % 4 Unknown COMPLETE BLOOD COUNT 8790175 LY % 21.9 % 4 Unknown COMPLETE BLOOD COUNT [id number] MON % 12.5 % 4 Unknown COMPLETE BLOOD COUNT [id number] EOS % 7.3 % 4 Unknown COMPLETE BLOOD COUNT [id number] BASO % 0.1 % 4 Unknown COMPLETE BLOOD COUNT 1890416 RDW 13.6 % 4 Unknown COMPLETE BLOOD COUNT [id number] ABS SAM 3.96 10e9/L 014 Unknown COMPLETE BLOOD COUNT [id number] ABS LYMPH 1.49 10e9/L 014 Unknown COMPLETE BLOOD COUNT [id number] ABS MONO 0.85 10e9/L 014 Unknown COMPLETE BLOOD COUNT [id number] ABS EOS 0.50 10e9/L 014 Unknown COMPLETE BLOOD COUNT [id number] ABS BASO 0.01 10e9/L 014 Unknown COMPLETE BLOOD COUNT [id number] RDW-SD 42.3 fL 4 Unknown COMPREHENSIVE METABOLIC 78288 AST 27 U/L 2013 Unknown COMPREHENSIVE METABOLIC 17412 ALT 30 IU/L 2013 Unknown COMPREHENSIVE METABOLIC 92428 BUN 16 MG/DL 2013 Unknown COMPREHENSIVE METABOLIC 79417 ALBUMIN 4.9 GM/DL 2013 Unknown COMPREHENSIVE METABOLIC 46331 CHLORIDE 99 MMOL/L 2013 Unknown COMPREHENSIVE METABOLIC 61177 BILI TOT 0.7 MG/DL 2013 Unknown COMPREHENSIVE METABOLIC 65899 ALK PHOS 53 U/L 2013 Unknown COMPREHENSIVE METABOLIC 54671 SODIUM 137 MMOL/L 09/08 Unknown COMPREHENSIVE METABOLIC 89477 CREATININE 1.01 MG/DL 11/2013 Unknown COMPREHENSIVE METABOLIC 86862 CALCIUM 10.0 MG/DL 09/08 Unknown COMPREHENSIVE METABOLIC 52105 POTASSIUM 4.4 MMOL/L 09/08 Unknown COMPREHENSIVE METABOLIC 37269 PROT TOT 7.1 GM/DL 2013 Unknown COMPREHENSIVE METABOLIC 12998 Glucose 148 MG/DL 2013 Unknown COMPREHENSIVE METABOLIC 94542 BICARB 30 MMOL/L 2013 Unknown COMPREHENSIVE METABOLIC 61505 ANION GAP 8 MEQ/L 2013 Unknown GFR CALC 3782307 GFR AA >60 ML/MIN 09/08/2013 Unknown GFR CALC 9551029 GFR NON-AA >60 ML/MIN 09/08/2013 Unknown FREE T4 03086 FREE T4 1.08 NG/DL 09/08/2013 Unknown GLYCOSYLATED HEMOGLOBIN TEST 67438 A1C HPLC 26965-6 7.3 % 0 09/08/2013 Unknown THYROID STIMULATING HORMONE 18351 TSH 5.454 uIU/ML 09/08/2013 Unknown LIPID GROUP 74157 HDL TEST 59 MG/DL 09/08/2013 Unknown LIPID GROUP 03685 TRIG 92 MG/DL 09/08/2013 Unknown LIPID GROUP 49975 TEST LDL 83 MG/DL 09/08/2013 Unknown LIPID GROUP 82201 CHOL 160 MG/DL 09/08/2013 Unknown LIPID GROUP 88017 RCHOL/HDL 2.71 RATIO 09/08/2013 Unknow n VITAMIN B 12 FOLIC ACID 64393|70293 VIT B 12 467 PG/ML 12/2012 Unknown VITAMIN B 12 FOLIC ACID 28432|26505 FOLIC ACID 12.2 NG/ML Unknown VITAMIN B 12 FOLIC ACID 74382|48459 VIT B 12 467 PG/ML 12/2012 Unknown THYROID STIMULATING HORMONE 48609 TSH 4.557 uIU/ML 03/12/2013 Unknown HEMOGLOBIN A1C (GLYCOSYLATED) 0883901 A1C HPLC 84007-9 7.6 % 03/12/2013 Unknown VITAMIN D TOTAL (25 HYDROXY) 35402 VIT D TOTL 17 NG/ML 03/12/2013 Unknown FREE T4 39560 FREE T4 1.07 NG/DL 03/12/2013 Unknown URIC ACID 92476 URIC ACID 5.2 MG/DL 03/12/2013 Unknown Procedures Procedure Codes Date PPPS, subseq visit CPT-4: G0439 01/12/2020 THER/PROPH/DIAG INJ SC/IM CPT-4: 98476 05/13/2019 TRIAMCINOLONE ACET INJ NOS CPT-4: J3301 05/13/2019 DEXAMETHASONE SODIUM PHOS CPT-4: J1100 05/13/2019 THER/PROPH/DIAG INJ SC/IM CPT-4: 21685 02/22/2019 TRIAMCINOLONE ACET INJ NOS CPT-4: J3301 02/22/2019 FLU VACC PRSV FREE INC ANTIG 65 AND OLDER CPT-4: 31945 04/21/2018 ADMIN INFLUENZA VIRUS VAC CPT-4: G0008 04/21/2018 PRESCRIP TRANSMIT VIA ERX SY CPT-4: G8553 04/21/2018 DESTRUCT PREMALG LESION (Cryosurgery) CPT-4: 96900 FLU VACC PRSV FREE INC ANTIG 65 AND OLDER CPT-4: 62537 04/22/2017 ADMIN INFLUENZA VIRUS VAC CPT-4: G0008 04/22/2017 PRESCRIP TRANSMIT VIA ERX SY CPT-4: G8553 10/10/2016 PRESCRIP TRANSMIT VIA ERX SY CPT-4: G8553 08/29/2015 ROUTINE VENIPUNCTURE CPT-4: 35472 07/26/2015 ASSAY OF FREE THYROXINE CPT-4: 53322 07/26/2015 ASSAY THYROID STIM HORMONE CPT-4: 26579 07/26/2015 COMPREHEN METABOLIC PANEL CPT-4: 06709 07/26/2015 COMPLETE CBC W/AUTO DIFF WBC CPT-4: 23784 07/26/2015 LIPID PANEL CPT-4: 61431 07/26/2015 ASSAY OF PSA TOTAL CPT-4: 92747 07/26/2015 A1C HPLC CPT-4: 94799 07/26/2015 ROUTINE VENIPUNCTURE CPT-4: 59003 01/17/2015 ASSAY OF FREE THYROXINE CPT-4: 13537 01/17/2015 ASSAY THYROID STIM HORMONE CPT-4: 54901 01/17/2015 COMPREHEN METABOLIC PANEL CPT-4: 98691 01/17/2015 COMPLETE CBC W/AUTO DIFF WBC CPT-4: 13054 01/17/2015 A1C HPLC CPT-4: 72343 01/17/2015 VITAMIN B-12 CPT-4: 36616 01/17/2015 PPPS, subseq visit CPT-4: G0439 08/04/2014 PRESCRIP TRANSMIT VIA ERX SY CPT-4: G8553 02/18/2014 FLUZONE, 5ML (Medicare) CPT-4: Q2038 07/22/2013 ADMIN INFLUENZA VIRUS VAC CPT-4: G0008 07/22/2013 PRESCRIP TRANSMIT VIA ERX SY CPT-4: G8553 04/28/2013 ROUTINE VENIPUNCTURE CPT-4: 53247 03/12/2013 VITAMIN D TOTAL (25 HYDROXY) CPT-4: 50023 03/12/2013 VITAMIN B 12 FOLIC ACID CPT-4: 29860|15177 03/12/2013 A1C GLYCOSYLATED HEMOGLOBIN TEST CPT-4: 59509 013 ASSAY OF BLOOD/URIC ACID CPT-4: 20663 03/12/2013 ASSAY OF FREE THYROXINE CPT-4: 53281 03/12/2013 ASSAY THYROID STIM HORMONE CPT-4: 66075 03/12/2013 CUR TOBACCO NON-USER CPT-4: G8457 03/11/2013 PRESCRIP TRANSMIT VIA ERX SY CPT-4: G8553 03/11/2013 Vital Signs Date Vital 01/12/2020 Blood Pressure 1: 126/84 Code: 8480-6 BMI: 37.5 Code: 81606-6 Heart Rate 1: 80 bpm Height: 5'9" Respiratory Rate: 20 bpm SpO2: 96% Tempera ture: 36.8 (C) / 98.3 (F) Weight: 254 lbs 12/07/2019 Blood Pressure 1: 142/78 Code: 8480-6 Heart Rate 1: 84 bpm Respiratory Rate: 20 bpm SpO2: 96% Temperature: 36.3 (C) / 97.3 (F) We ight: 253 lbs 10/27/2019 Blood Pressure 1: 136/82 Code: 8480-6 Heart Rate 1: 84 bpm Respiratory Rate: 20 bpm SpO2: 96% Temperature: 36.8 (C) / 98.2 (F) We ight: 255 lbs 10/20/2019 Blood Pressure 1: 142/80 Code: 8480-6 Heart Rate 1: 92 bpm Respiratory Rate: 20 bpm SpO2: 96% Temperature: 36.8 (C) / 98.2 (F) We ight: 254 lbs 10/12/2019 Blood Pressure 1: 90/60 Code : 8480-6 06/02/2019 Blood Pressure 1: 125/80 Code: 8480-6 Heart Rate 1: 75 bpm Respiratory Rate: 20 bpm SpO2: 96% 05/13/2019 Blood Pressure 1: 110/70 Code: 8480-6 Heart Rate 1: 94 bpm SpO2: 98% Temperature: 36.6 (C) / 97.9 (F) Weight: 232 lbs 04/26/2019 Blood Pressure 1: 110/80 Code: 8480-6 Heart Rate 1: 87 bpm SpO2: 97% Temperature: 36.4 (C) / 97.6 (F) Weight: 236 lbs 02/22/2019 Blood Pressure 1: 132/80 Code: 8480-6 Heart Rate 1: 84 bpm SpO2: 97% Temperature: 35.9 (C) / 96.6 (F) Weight: 236 lbs 11/25/2018 Blood Pressure 1: 126/70 Code: 8480-6 Heart Rate 1: 68 bpm Respiratory Rate: 18 bpm SpO2: 96% Temperature: 36.6 (C) / 97.8 (F) 11/19/2018 Blood Pressure 1: 106/62 Code: 8480-6 Heart Rate 1: 92 bpm Respiratory Rate: 20 bpm SpO2: 96% Temperature: 36.8 (C) / 98.2 (F) We ight: 235 lbs 07/22/2018 Blood Pressure 1: 156/70 Code: 8480-6 BMI: 35.0 Code: 77612-4 Heart Rate 1: 68 bpm Height: 5'10" Respiratory Rate: 20 bpm SpO2: 95% Tempera ture: 36.5 (C) / 97.7 (F) Weight: 244 lbs 04/21/2018 Blood Pressure 1: 124/80 Code: 8480-6 BMI: 34.4 Code: 34404-4 Heart Rate 1: 80 bpm Height: 5'10" Respiratory Rate: 20 bpm SpO2: 96% Tempera ture: 37.0 (C) / 98.6 (F) Weight: 240 lbs 01/06/2018 Blood Pressure 1: 138/82 Code: 8480-6 BMI: 33.9 Code: 57771-7 Heart Rate 1: 96 bpm Height: 5'10" Respiratory Rate: 24 bpm SpO2: 98% Tempera ture: 35.9 (C) / 96.6 (F) Weight: 236 lbs 10/22/2017 Blood Pressure 1: 144/70 Code: 8480-6 BMI: 34.7 Code: 74081-8 Heart Rate 1: 72 bpm Height: 5'10" Respiratory Rate: 20 bpm SpO2: 96% Tempera ture: 36.9 (C) / 98.4 (F) Weight: 242 lbs 04/22/2017 Blood Pressure 1: 146/82 Code: 8480-6 BMI: 32.9 Code: 13301-5 Heart Rate 1: 104 bpm Height: 5'10" Respiratory Rate: 20 bpm SpO2: 95% Tempera ture: 36.9 (C) / 98.5 (F) Weight: 229 lbs 10/10/2016 Blood Pressure 1: 124/64 Code: 8480-6 BMI: 32.9 Code: 15157-0 Heart Rate 1: 64 bpm Height: 5'10" Respiratory Rate: 20 bpm SpO2: 96% Tempera ture: 36.8 (C) / 98.3 (F) Weight: 229 lbs 08/31/2015 Blood Pressure 1: 144/74 Code: 8480-6 Heart Rate 1: 92 bpm Respiratory Rate: 24 bpm SpO2: 95% Temperature: 36.6 (C) / 97.8 (F) We ight: 238 lbs 08/29/2015 Blood Pressure 1: 168/92 Code: 8480-6 Heart Rate 1: 86 bpm Height: Respiratory Rate: 22 bpm SpO2: 97% Temperature: 36.2 (C) / 97.1 (F) We ight: 07/24/2015 Blood Pressure 1: 124/78 Code: 8480-6 Heart Rate 1: 88 bpm Respiratory Rate: 20 bpm Temperature: 36.2 (C) / 97.1 (F) Weight: 236 lbs 05/01/2015 Blood Pressure 1: 146/90 Code: 8480-6 BMI: 34.1 Code: 02521-5 Heart Rate 1: 80 bpm Height: 5'10" Respiratory Rate: 20 bpm Temperature: 36 .8 (C) / 98.2 (F) Weight: 238 lbs 01/17/2015 Blood Pressure 1: 116/60 Code: 8480-6 BMI: 32.7 Code: 15170-8 Heart Rate 1: 84 bpm Height: 5'10" Respiratory Rate: 20 bpm Temperature: 36 .7 (C) / 98.0 (F) Weight: 228 lbs 09/29/2014 Blood Pressure 1: 136/78 Code: 8480-6 BMI: 33.9 Code: 62359-2 Heart Rate 1: 80 bpm Height: 5'10" Respiratory Rate: 20 bpm Temperature: 36 .6 (C) / 97.9 (F) Weight: 236 lbs 08/04/2014 Blood Pressure 1: 132/70 Code: 8480-6 BMI: 32.9 Code: 84214-2 Heart Rate 1: 72 bpm Height: 5'10" Respiratory Rate: 20 bpm Temperature: 36 .7 (C) / 98.0 (F) Weight: 229 lbs 02/18/2014 Blood Pressure 1: 124/82 Code: 8480-6 Heart Rate 1: 82 bpm Respiratory Rate: 18 bpm Temperature: 36.4 (C) / 97.5 (F) Weight: 232 lbs 07/29/2013 Blood Pressure 1: 146/80 Code: 8480-6 BMI: 34.1 Code: 20979-4 Heart Rate 1: 64 bpm Height: 5'10" Respiratory Rate: 20 bpm Temperature: 36 .9 (C) / 98.5 (F) Weight: 238 lbs 05/26/2013 Blood Pressure 1: 142/90 Code: 8480-6 BMI: 34.0 Code: 27235-5 Heart Rate 1: 84 bpm Height: 5'10" Respiratory Rate: 20 bpm Temperature: 36 .7 (C) / 98.0 (F) Weight: 237 lbs 04/28/2013 Blood Pressure 1: 118/78 Code: 8480-6 BMI: 32.9 Code: 25088-8 Heart Rate 1: 74 bpm Height: 5'10" Respiratory Rate: 20 bpm Temperature: 36 .1 (C) / 97.0 (F) Weight: 229 lbs 03/11/2013 Blood Pressure 1: 146/80 Code: 8480-6 BMI: 31.5 Code: 71214-9 Heart Rate 1: 80 bpm Height: 6' Respiratory Rate: 20 bpm Temperature: 36 .8 (C) / 98.2 (F) Weight: 232 lbs Functional Status No Functional Status data Reason For Visit Reason For Visit Effective Dates Notes well man exam (65+ years) 01/12/2020 skin lesion 12/07/2019 Patient would like t o review medications because he wonders if there is something that makes him intolerant to heat follow up 10/27/2019 diabetes mellitus 10/20/2019 follow up 10/12/2019 cough 06/02/2019 sinus congestion 05/13/2019 follow up 04/26/2019 from urgent care sinus congestion 02/22/2019 follow up 11/25/2018 neck pain 11/19/2018 Patient recently gerardo ated by urgent care with zpack and levaquin follow up 07/22/2018 follow up 04/21/2018 follow up 01/06/2018 Patient states has b een more fatigued and breaks out in a sweat with the heat. He used to be able to work in it throughout the day, but now it is impossible to stay out longer than 30 minutes. skin lesion 10/22/2017 follow up 04/22/2017 follow up 10/10/2016 Patient not consiste ntly taking medications and when he does it isn't always same medication. He alternates from Simvastatin, Zetia and Vytorin cough 08/31/2015 Patient still taking prednisone and breathing treatments. Finished azithromycin a few days ago and has take some leftover cephalexin cough 08/29/2015 lab draw 07/26/2015 follow up 07/24/2015 pain, limb 05/01/2015 diabetes mellitus 01/17/2015 skin lesion 09/29/2014 diabetes mellitus 08/04/2014 Off vytorin for last 2-3 months nausea 02/18/2014 follow up 07/29/2013 injection(s) 07/22/2013 Flu Shot follow up 05/26/2013 1mo fwup follow up 04/28/2013 lab draw 03/12/2013 ~generic 03/11/2013 Establishing care Encounters Encounter Performer Location Codes Date ([id number]) OFFICE/OUTPATIENT VISIT EST Diagnosis: Esophageal reflux[ICD10: K21.9] Diagnosis: History of bladder cancer[ICD10: Z85.51] Xiomara NICHOLS CPT-4: 85416 12/07/2019 ([id number]) OFFICE/OUTPATIENT VISIT EST Diagnosis: DM w/o complication type II, uncontrolled[ICD10: E11.65] Diagnosis: Other dyspnea and respiratory abnormality[ICD10: R06.09] Xiomara BETTENCOURT DO [facility] CPT-4: 52155 10/27/2019 ([id number]) OFFICE/OUTPATIENT VISIT EST Diagnosis: Chronic obstructive pulmonary disease, unspecified[ICD10: J44.9] Diagnosis: DM w/o complication type II, uncontrolled[ICD10: E11.65] Diagnosis: Edema[ICD10: R60.9] Xiomara BETTENCOURT DO [facility] CPT-4: 06376 10/20/2019 ([id number]) OFFICE/OUTPATIENT VISIT EST Diagnosis: Other dyspnea and respiratory abnormality[ICD10: R06.09] Diagnosis: Obstructive sleep apnea[ICD10: G47.33] Diagnosis: Hypotension[ICD10: I95.9] Xiomara Bettencourt [facility] CPT -4: 73572 10/12/2019 ([id number]) OFFICE/OUTPATIENT VISIT EST Diagnosis: Upper respiratory infection[ICD10: J06.9] Pennie BETTENCOURT DO [facility] CPT-4: 79463 06/02/2019 ([id number]) OFFICE/OUTPATIENT VISIT EST Diagnosis: Sinusitis[ICD10: J32.9] Diagnosis: Allergic rhinitis[ICD10: J30.9] Pennie BETTENCOURT DO [facility] CPT-4: 31076 05/13/2019 ([id number]) OFFICE/OUTPATIENT VISIT EST Diagnosis: Pneumonia[ICD10: J18.9] Pennie ROSENBAUM [facility] CPT-4: 01261 04/26/2019 ([id number]) OFFICE/OUTPATIENT VISIT EST Diagnosis: Acute sinusitis, unspecified[ICD10: J01.90] Pennie BETTENCOURT DO [facility] CPT-4: 92152 02/22/2019 ([id number]) OFFICE/OUTPATIENT VISIT EST Diagnosis: Cervicalgia[ICD10: M54.2] Xiomara MAGALLON [facility] CPT-4: 40062 11/25/2018 ([id number]) OFFICE/OUTPATIENT VISIT EST Diagnosis: Acute sinusitis, unspecified[ICD10: J01.90] Diagnosis: Myalgia, unspecified site[ICD10: M79.10] Diagnosis: Cervicalgia[ICD10: M54.2] [facility]: 48241 11/19/2018 ([id number]) OFFICE/OUTPATIENT VISIT EST Diagnosis: Low back pain[ICD10: M54.5] Diagnosis: Essential (primary) hypertension[ICD10: I10] Diagnosis: 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, 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] Diagnosis: Paroxysmal atrial fibrillation[ICD10: I48.0] [facility] 00206 07/22/2018 ([id number]) OFFICE/OUTPATIENT VISIT EST Diagnosis: Type 2 diabetes mellitus with diabetic neuropathy, unspecified[ICD10: E11.40] Diagnosis: Hyperlipidemia, unspecified[ICD10: E78.5] Diagnosis: Essential (primary) hypertension[ICD10: I10] Diagnosis: Chronic kidney disease, stage 1[ICD10: N18.1] Diagnosis: Benign prostatic hyperplasia with lower urinary tract symptoms[ICD10: N40.1] Diagnosis: FLU VACCINE[ICD10: Z23] Xiomara Gan [facility] [employer] [facility] CPT-4: 23027 04/21/2018 OFFICE/OUTPATIENT VISIT EST Diagnosis: Type 2 diabetes mellitus with hyperglycemia[ICD10: E11.65] Diagnosis: Essential (primary) hypertension[ICD10: I10] Diagnosis: Mixed hyperlipidemia[ICD10: E78.2] Diagnosis: Other fatigue[ICD10: R53.83] Pennie MCBRIDE [employer] [facility] CPT-4: 15231 01/06/2018 ([id number]) OFFICE/OUTPATIENT VISIT EST Diagnosis: Type 2 diabetes mellitus with diabetic neuropathy, unspecified[ICD10: E11.40] Diagnosis: Essential (primary) hypertension[ICD10: I10] Diagnosis: Pain in right thigh[ICD10: M79.651] Diagnosis: Pain in left leg[ICD10: M79.605] Diagnosis: Localized swelling, mass and lump, left lower limb[ICD10: R22.42] Diagnosis: OSTEOARTHRISIS MULTI SITES[ICD10: M19.90] Diagnosis: FLU VACCINE[ICD10: Z23] Xiomara [facility]BRIDE [facility] CPT-4: 06073 04/22/2017 ([id number]) OFFICE/OUTPATIENT VISIT EST Diagnosis: Essential (primary) hypertension[ICD10: I10] Diagnosis: Type 2 diabetes mellitus with hyperglycemia[ICD10: E11.65] Diagnosis: Angina pectoris, unspecified[ICD10: I20.9] [facility] 44942 10/10/2016 ([id number]) OFFICE/OUTPATIENT VISIT EST Diagnosis: Cough[ICD10: R05] Diagnosis: Wheezing[ICD10: R06.2] Diagnosis: Chronic obstructive pulmonary disease, unspecified[ICD10: J44.9] [facility] 86216 08/31/2015 OFFICE/OUTPATIENT VISIT EST Diagnosis: Acute bronchitis, unspecified[ICD10: J20.9] Diagnosis: Wheezing[ICD10: R06.2] Kelsie [facility] CPT-4: 96103 08/29/2015 ([id number]) OFFICE/OUTPATIENT VISIT EST Diagnosis: Type 2 diabetes mellitus with diabetic neuropathy, unspecified[ICD10: E11.40] Diagnosis: Hyperlipidemia, unspecified[ICD10: E78.5] Diagnosis: Essential (primary) hypertension[ICD10: I10] Diagnosis: Encounter for general adult medical examination without abnormal findings[ICD10: Z00.00] [facility] 63115 07/26/2015 OFFICE/OUTPATIENT VISIT EST Diagnosis: Type 2 diabetes mellitus with hyperglycemia[ICD10: E11.65] Diagnosis: Unspecified osteoarthritis, unspecified site[ICD10: M19.90] Diagnosis: Other instability, right knee[ICD10: M25.361] Kelsie [facility]RT [facility] CPT-4: 11419 07/24/2015 ([id number]) OFFICE/OUTPATIENT VISIT EST Diagnosis: Pain in leg, unspecified[ICD10: M79.606] Diagnosis: Type 2 diabetes mellitus with diabetic neuropathy, unspecified[ICD10: E11.40] Xiomara [facility] CPT-4: 64145 05/01/2015 ([id number]) OFFICE/OUTPATIENT VISIT EST Diagnosis: MALAISE AND FATIGUE[ICD9: 780.79] Diagnosis: 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, 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] Diagnosis: CAD[ICD9: 414.00] Diagnosis: ANEMIA NOS[ICD9: 285.9] Xiomara MCBRIDE ER [facility] CPT-4: 81016 01/17/2015 ([id number]) OFFICE/OUTPATIENT VISIT EST Diagnosis: Skin lesion[ICD9: 709.9] Xiomara HAND [facility] CPT-4: 10385 09/29/2014 OFFICE/OUTPATIENT VISIT EST Diagnosis: GASTROENTERITIS[ICD9: 558.9] Diagnosis: GERD[ICD9: 530.81] Kelsie VanMessi XIOMARA [facility] CPT-4: 05441 02/18/2014 ([id number]) OFFICE/OUTPATIENT VISIT EST Diagnosis: 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I, UNCONTROLLED[ICD9: 250.02] Xiomara [facility]IDEER [facility] CPT-4: 84798 07/29/2013 ([id number]) OFFICE/OUTPATIENT VISIT EST Diagnosis: FLU VACCINE[ICD9: V04.81] Xiomara MCGEE NDER [facility] CPT-4: 83257 07/22/2013 ([id number]) OFFICE/OUTPATIENT VISIT EST Diagnosis: 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I, UNCONTROLLED[ICD9: 250.02] Diagnosis: HYPERTENSION[ICD9: 401.9] Xiomara MCGEE NDER [facility] CPT-4: 76963 05/26/2013 ([id number]) OFFICE/OUTPATIENT VISIT EST Diagnosis: MONONEURITIS[ICD9: 355.9] Diagnosis: RESTLESS LEGS SYNDROME[ICD9: 333.94] Diagnosis: HYPERTENSION[ICD9: 401.9] Diagnosis: CAD[ICD9: 414.00] Diagnosis: Weakness[ICD9: 780.79] Xiomara Dolan [facility] CPT-4: 12396 04/28/2013 (40070) OFFICE/OUTPATIENT VISIT EST Diagnosis: 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[ICD9: 250.01] Diagnosis: MONONEURITIS[ICD9: 355.9] Diagnosis: HYPERLIPIDEMIA NEC/NOS[ICD9: 272.4] Diagnosis: CAD[ICD9: 414.00] Xiomara LARA DelphineEdvin KODAK DACOSTA [employer]! CPT-4: 51470 03/12/2013 OFFICE/OUTPATIENT VISIT NEW Diagnosis: CAD[ICD9: 414.00] Diagnosis: HYPERLIPIDEMIA NEC/NOS[ICD9: 272.4] Diagnosis: HYPERTENSION[ICD9: 401.9] Diagnosis: Neuropathy[ICD9: 355.9] Diagnosis: RESTLESS LEGS SYNDROME[ICD9: 333.94] Xiomara Gan ARELYSHERITA [employer] CPT-4: 57072 03/11/2013 Plan of Care Planned Activity Notes Codes Status Date Visit Diagnosis Plan: Encounter for [facility] adult medical examination without abnormal findings Discussion: Mediterranean diet Combinati on of cardio and weight bearing exercise Lab discussed ICD-9 : V70.0 ICD-10 : Z00.00 01/12/2020 Visit Diagnosis Plan: Esophageal reflux Discussion: DC Zantac Increase omeprazole to 20mg po BID ICD-9 : 530.81 ICD-10 : K21.9 01/12/2020 Visit Diagnosis Plan: Diabetes mellitus type 1, contro lled, insulin dependent Discussion: Lab discussed Accuchecks daily Continue current meds Check CMP and HbA1C in 3mos then fwup Recommend Diabetic Shoes Discussion: Lab discussed Accuchecks daily Continue current meds Check CMP and HbA1C in 3mos then fwup ICD-9 : 250.01 ICD-10 : E10.9 01/12/2020 Visit Diagnosis Plan: Allergic rhinitis Discussion: Ad d flonase q PM routinely Told to start humidifying oxygen for nasal congestion ICD-9 : 477.9 ICD-10 : J30.9 01/12/2020 Visit Diagnosis Plan: Obstructive sleep apnea (adult) (pediatric) Discussion: Not able to tolerate CPAP ICD-9 : 327.23 ICD-10 : G47.33 01/12/2020 Appointment: Xiomara Bettencourt [facility]Ptel[facility] [phone] [facility] [facility] Visit 01/12/2020 Care Plan: US EXAM ABDO BACK WALL COMP renal US L OINC : 10880-7 Pending 12/08/2019 Visit Diagnosis Plan: History of bladder cancer Discus jaswinder: Check CT abdomen/pelvis ICD-9 : V10.51 ICD-10 : Z85.51 12/07/2019 Visit Diagnosis Plan: Esophageal reflux Discussion: Ta kesha omeprazole daily Will try pancreatic enzymes ICD-9 : 530.81 ICD-10 : K21.9 12/07/2019 Appointment: Xiomara Bettencourt WPtel: [address] [place], [place] [id number] ACUTE ILLNESS 12/07/2019 Care Plan: CT PELVIS W/O DYE LOINC : 361 08-9 Pending 12/07/2019 Care Plan: CT ABDOMEN W/O DYE LOINC : 36 103-0 Pending 12/07/2019 Visit Diagnosis Plan: DM w/o complication type II, unc ontrolled Discussion: Keep low dose glimepride at 2mg daily Accuchecks at least BID ICD-9 : 250.02 ICD-10 : E11.65 10/27/2019 Visit Diagnosis Plan: Other dyspnea and respiratory ab normality Discussion: DC lasix and potassium Will start pulmonary rehab once COVID-19 is resolved ICD-9 : 786.09 ICD-10 : R06.09 10/27/2019 Appointment: Xiomara Bettencourt WPtel: [address] [place], [place] [id number] [place] FOLLOW UP 10/27/2019 Patient Education: gabapentin- [employer] Coupon [phone] [email or web address]/samplemd/resources/getResource/61/[email or web address] Completed 10/27/2019 Visit Diagnosis Plan: DM w/o complication type II, unc ontrolled Discussion: Can add back glimepride 2mg po q AM Accuchecks at least BID BS readings in 1 week ICD-9 : 250.02 ICD-10 : E11.65 10/20/2019 Visit Diagnosis Plan: Edema Discussion: Lasix and pota ssium for next week and fwup 1 week to assess dyspnea/edema/weight, etc. ICD-9 : 782.3 ICD-10 : R60.9 10/20/2019 Visit Diagnosis Plan: Chronic obstructive pulmonary di sease, unspecified Discussion: Will obtain most recent CT scan and PFT results Would be a good candidate for pulmonary rehab but will have to wait until after COVID-19 has diet down to start Continue Symbicort at BID dosing with proair prn Increase activity and stamina ICD-9 : 496 ICD-10 : J44.9 10/20/2019 Appointment: Xiomara Bettencourt WPtel: [address] [place], [place] [id number] [place] FOLLOW UP 10/20/2019 Patient Education: furosemide- [employer] Coupon [phone] https://www.Sidestage/Seeqpod/resources/getResource/61/[email or web address]-[email or web address] Completed 10/20/2019 Visit Diagnosis Plan: Hypotension Discussion: Saw Dr. Erickson today and he lowered lisinopril dose--discussed that the lower BP could be causing fatigue and shortness of air ICD-9 : 458.9 ICD-10 : I95.9 10/12/2019 Visit Diagnosis Plan: Other dyspnea and respiratory ab normality Discussion: Increase symbicort 160/4.5 to 2 p BID Use albuterol 2p q4hrs prn as rescue inhaler Will notify us if not helping or worsening ICD-9 : 786.09 ICD-10 : R06.09 10/12/2019 Visit Diagnosis Plan: Obstructive sleep apnea Discussi on: Not able to tolerate CPAP ICD-9 : 327.23 ICD-10 : G47.33 10/12/2019 Appointment: Xiomara Bettencourt WPtel: [address] [place], [place] [id number] [place] TELEMEDICINE 10/12/2019 Appointment: Xiomara Bettencourttel: [address] [place], [place] [phone] [place] RESCHEDULED 09/23/2019 Care Plan: COMPREHEN METABOLIC [place] : 62152-6 Pending 09/20/2019 Care Plan: LIPID PANEL LOINC : 45614-5 Pending 09/20/2019 Care Plan: A1C HPLC LOINC : 67779-4 Pending 09/20/2019 Care Plan: COMPLETE CBC W/AUTO DIFF WBC LOINC : 66901-2 Pending 09/20/2019 Visit Diagnosis Plan: Upper respiratory infection Disc ussion: discussed that most likely viral. push fluids and rest through the week. patient has left over levaquin at home (5 days worth). instructed patient to start taking if he gets worse later this week and to call us next week if no improvement. ICD-9 : 465.9 ICD-10 : J06.9 06/02/2019 Appointment: Pennie Pizarro [address] [place], [place] [address] ACUTE ILLNESS 06/02/2019 Visit Diagnosis Plan: Allergic rhinitis Discussion: re cently on antibiotics so discussed with patient that symptoms most likely r/t viral illness vs allergies. kenalog/dexa 40/2 given in office. instructed to use flonase daily and to reduce the amount of times he uses the rescue nasal spray. instructed to use only once in the middle of the night to avoid dependence of medication. ICD-9 : 477.9 ICD-10 : J30.9 05/13/2019 Appointment: Pennie Pizarro [address] [place], [place] [phone] ACUTE ILLNESS 05/13/2019 Appointment: Xiomara Bettencourt WPtel: [phone] [facility] US CANCELED 04/27/2019 Visit Diagnosis Plan: Pneumonia Discussion: will obtai n records from urgent care. instructed to finish out doxy. no rhonchi or crackles auscultated. symbicort sample given to patient with instructions to use bid. call office later this week with new or worsening symptoms. ICD-9 : 486 ICD-10 : J18.9 04/26/2019 Appointment: Pennie Pizarro [address] [place], [place] [address] FOLLOW UP 04/26/2019 Visit Diagnosis Plan: Acute sinusitis, unspecified Dis cussion: 40 mg kenalog given in office. educated patient that injection may increase blood sugar so to call office with any concerns. augmentin bid for 10 days. instructed to call office after antibiotics complete and if no improvement, will need ct of sinuses. ok to continue with flonase. call with any worsening symptoms too. ICD-9 : 461.9 ICD-10 : J01.90 02/22/2019 Appointment: Pennie Pizarro [address] ACUTE ILLNESS 02/22/2019 Patient Education: prednisone- OptimizeRX Coupon [phone] https://www.Sidestage/samplemd/resources/getResource/61/[email or web address] Completed 02/22/2019 Visit Diagnosis Plan: Cervicalgia Discussion: Check Ce rvical Spine X-ray Will likely need PT ICD-9 : 723.1 ICD-10 : M54.2 11/25/2018 Appointment: Xiomara Bettencourt WPtel: [facility] [address] ACUTE ILLNESS 11/25/2018 Visit Plan: Saline nasal flushes prn. Ty lenol/Motrin prn headache. Notify if persists/symptoms worsening. 11/19/2018 Visit NOS Plan: Plan Notes: Saline nasal flu shes prn. Tyle... 11/19/2018 Visit Diagnosis Plan: Cervicalgia Discussion: May be d ue to levaquin or from strain of neck from coughing ICD-9 : 723.1 ICD-10 : M54.2 11/19/2018 Visit Diagnosis Plan: Acute sinusitis, unspecified Dis cussion: Improved ICD-9 : 461.9 ICD-10 : J01.90 11/19/2018 Visit Diagnosis Plan: Myalgia, unspecified site Discus jaswinder: May be due to levaquin Hold simvastatin Add Vitamin D3 2000u daily Baclofen 10mg po q HS Follow Up: 1 weeks ICD-9 : 729.1 ICD-10 : M79.10 11/19/2018 Appointment: Xiomara Bettencourt WPtel: [phone] ACUTE ILLNESS 11/19/2018 Patient Education: baclofen- [employer] Coupon [phone] [email or web address]://www.Sidestage/samplemd/resources/getResource/61/[email or web address]-[email or web address] Completed 11/19/2018 Visit Diagnosis Plan: Essential (primary) hypertension Discussion: Stable ICD-9 : 401.9 ICD-10 : I10 07/22/2018 Visit Diagnosis Plan: Paroxysmal atrial fibrillation D iscussion: In NSR today Discussed risk of bleeding with both plavix and eliquis Sees cardiology in 3 mos ICD-9 : 427.31 ICD-10 : I48.0 07/22/2018 Visit Diagnosis Plan: Low back pain Discussion: Topica l muscle rub Tylenol prn No NSAIDs ICD-9 : 724.2 ICD-10 : M54.5 07/22/2018 Visit Diagnosis Plan: 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, UNCO NTROLLED Discussion: Check lab and fwup in 3mos ICD-9 : 250.03 ICD-10 : E10.9 07/22/2018 Appointment: Xiomara Bettencourt WPtel: [phone] [facility] US FOLLOW UP 07/22/2018 Visit Diagnosis Plan: Benign prostatic h yperplasia with lower urinary tract symptoms Discussion: Trial of flomax Call in 1 mo [facility] on how doing Follow Up: 4 months ICD-9 : 600.21 ICD-10 : N40.1 04/21/2018 Visit Diagnosis Plan: Hyperlipidemia, unspecified Disc ussion: Stable Lab discussed ICD-9 : 272.4 ICD-10 : E78.5 04/21/2018 Visit Diagnosis Plan: Essential (primary) hypertension Discussion: Stable ICD-9 : 401.9 ICD-10 : I10 04/21/2018 Visit Diagnosis Plan: Type 2 diabetes me llitus with diabetic neuropathy, unspecified Discussion: Stable Lab discussed Accuche cks daily Flu shot given Discussion: Stable Lab discussed Accuchecks daily ICD-9 : 250.60 ICD-10 : E11.40 04/21/2018 Visit Diagnosis Plan: Chronic kidney disease, stage 1 Discussion: DC NSAIDs May use tylenol ICD-9 : 585.1 ICD-10 : N18.1 04/21/2018 Appointment: Xiomara Bettencourt WPtel: [phone] [facility] US FOLLOW UP 04/21/2018 Patient Education: Patient Medication Summary Completed 04/21/2018 Visit Diagnosis Plan: Essential (primary) hypertension Discussion: stable, continue current medications. ICD-9 : 401.9 ICD-10 : I10 01/06/2018 Visit Diagnosis Plan: Mixed hyperlipidemia Discussion: will review recent blood work and order additional if needed. ICD-9 : 272.2 ICD-10 : E78.2 01/06/2018 Visit Diagnosis Plan: Other fatigue Discussion: discus sed with patient that symptoms could be r/t diabetes and glucose not well controlled, will order/review blood work. instructed to increase water intake to cover dehydration. ICD-9 : 780.79 ICD-10 : R53.83 01/06/2018 Visit Diagnosis Plan: Type 2 diabetes mellitus with hy perglycemia Discussion: will call [facility] for recent labs. instructed patient that we will call him later today if additional labs are needed. instructed patient to continue working on diet and exercise. will adjust medications as needed based on recent labs. Follow Up: 3 months Discussion: will call [facility] for recent labs. instructed patient that we will call him later today if additional labs are needed. instructed patient to continue working on diet and exercise. will adjust medications as needed based on recent labs. ICD-9 : 250.02 ICD-10 : E11.65 01/06/2018 Appointment: Pennie Pizarro [address] [place] [address] MEDICATION REVIEW 01/06/2018 Patient Education: Patient Medication Summary Completed 01/06/2018 Appointment: Xiomara Bettencourt WPtel: [address] [place], [place] [phone] [place] NO SHOW 01/05/2018 Appointment: Xiomara Bettencourt WPtel: [address] [place], [place] [id number] US CANCELED 12/31/2017 Visit Diagnosis Plan: Actinic keratosis Discussion: Cr yotherapy as above but will see derm if lesions do not resolve ICD-9 : 702.0 ICD-10 : L57.0 10/22/2017 Appointment: Xiomara Bettencourt WPtel: [address] [place], [place] [phone] ACUTE ILLNESS 10/22/2017 Patient Education: Patient Medication Summary Completed 10/22/2017 Visit Diagnosis Plan: Pain in left leg Discussion: Angie ck stat venous doppler due to redness and warmth and recent left TKR--if negative needs to observe left leg for worsening redness and notify surgeon immediately of change ICD-9 : 729.5 ICD-10 : M79.605 04/22/2017 Visit Diagnosis Plan: Type 2 diabetes me llitus with diabetic neuropathy, unspecified Discussion: Lab discussed Continue curre nt meds Asked to bring in updated med list Accuchecks daily Flu shot given ICD-9 : 250.60 ICD-10 : E11.40 04/22/2017 Visit Diagnosis Plan: Pain in right thigh Discussion: Check stat venous doppler due to recent surgery ICD-9 : 729.5 ICD-10 : M79.651 04/22/2017 Visit Diagnosis Plan: Essential (primary) hypertension Discussion: Slightly elevated today but is anxious about episode had last night ICD-9 : 401.9 ICD-10 : I10 04/22/2017 Visit Diagnosis Plan: OSTEOARTHRISIS MULTI SITES Discu ssion: Once again discussed that taking indomethacin with plavix and aspirin is not recommended and makes him high risk for bleeding ICD-9 : 715.98 ICD-10 : M19.90 04/22/2017 Appointment: Xiomara Bettencourt [facility]Ptel: [phone] [facility] FOLLOW UP 04/22/2017 Patient Education: Patient Medication Summary Completed 04/22/2017 Patient Education: Patient Medication Summary Completed 04/16/2017 Care Plan: COMPREHEN METABOLIC [place]GEI NC : 93974-8 Pending 04/16/2017 Care Plan: LIPID PANEL LOINC : 42389-8 Pending 04/16/2017 Care Plan: CBC Pending 04/16/2017 Care Plan: A1C HPLC LOINC : 20897-5 Pending 04/16/2017 Referral: Inocenc[facility] Goodson [facility]el[facility] Confirmed 10/14/2016 Visit Diagnosis Plan: Angina pectoris, unspecified Dis cussion: Continue imdur and see cardiology To ER if chest pain returns ICD-9 : 413.9 ICD-10 : I20.9 10/10/2016 Visit Diagnosis Plan: Type 2 diabetes mellitus with hy perglycemia Discussion: Continue toujeo Accuchecks BID Follow Up: 4 months ICD-9 : 250.02 ICD-10 : E11.65 10/10/2016 Appointment: Xiomara Bettencourt WPtel: [address] [place], [place] [phone] FOLLOW UP 10/10/2016 Patient Education: Patient Medication Summary Completed 10/10/2016 Patient Education: Patient Medication Summary Completed 09/16/2016 Care Plan: COMPREHEN METABOLIC PANEL SERGEI NC : 26518-1 Pending 09/16/2016 Care Plan: ASSAY THYROID STIM HORMONE Pen ding 09/16/2016 Care Plan: ASSAY OF FREE THYROXINE Pendin g 09/16/2016 Care Plan: LIPID PANEL LOINC : 74598-8 Pending 09/16/2016 Care Plan: CBC Pending 09/16/2016 Care Plan: A1C HPLC LOINC : 94836-2 Pending 09/16/2016 Visit Plan: CXR now to further evaluate symptoms Suspect viral since he has been on 2 rounds of antibiotics If chronic lung disease evident, will consider keeping on symbicort longterm Sample inhaler given today with instructions on use Continue oral prednisone, would like to avoid injection if possible considering his DM status and he is stable right now Continue albuterol PRN Will call with CXR results 08/31/2015 Appointment: Shannan Grimes [address] [place] [address] 08/31 confirmed- SP ACUTE ILLNESS 08/31/2015 Patient Education: Patient Medication Summary Completed 08/31/2015 Visit Plan: Albuterol INH via SVN every 4 hours Prednisone 20 mg PO BID Notify for worsening symptoms 08/29/2015 Appointment: Kelsie Grubbs WPtel: [address] [place], [place] [phone] ACUTE ILLNESS 08/29/2015 Patient Education: Patient Medication Summary Completed 08/29/2015 Appointment: Xiomara Bettencourt WPtel: [address] [place], [place] [phone] [place] LAB 07/26/2015 Patient Education: Patient Medication Summary Completed 07/26/2015 Visit Plan: Return in am for fasting lab s - CBC, CMP, TSH, Free T4, HgbA1C Change Levemir to Toujeo - Continue 35 Units q am - sample given Start physical Therapy for increased quadriceps strengthening and decreased pain in knees, bilaterally. 07/24/2015 Appointment: Kelsie Grubbs [facility]Ptel: [phone] [facility] 07/21 appt confirmed cn FOLLOW UP 07/24/19 Appointment: Kelsie Grubbs WPtel: [phone] [facility] [facility] FOLLOW UP 07/24/2015 Patient Education: Patient Medication Summary Completed 07/24/2015 Patient Education: Patient Medication Summary Completed 05/09/2015 Visit Plan: Retry gabapentin at 300mg q HS Discussed needs testing for PAD--will start with ABIs Discussed spinal stenosis and lumbar deg disc disease as contributing to lower extremity weakness Patient has been running out of insulin due to cost so restarted glimepiride--once again discussed risk of using this medicine with insulin 05/01/2015 Appointment: Xiomara Bettencourt WPtel: [address] [place], [place] [phone] 04/28 confirmed~sl ACUTE ILLNESS 05/01/2015 Patient Education: Patient Medication Summary Completed 05/01/2015 Patient Education: Patient Medication Summary Completed 01/19/2015 Care Plan: URINALYSIS AUTO W/[place] SC[place]GEI [place] : 43653-2 Pending 01/19/2015 Visit Plan: I have went through his medi cations in past and stopped meds but he adjusts his meds on his own and has restarted some Stop Amaryl Once again discussed not using indomethacin routinely due to taking plavix and aspirin daily and senior care use is dangerous Check CBC, CMP, TSH, free T4, B12 and HbA1C Patient has seen Cardiology recently but no cardiac cath done--had chemical stress test 01/17/2015 Appointment: Xiomara Bettencourt WPtel: [phone] [facility] 01/16 vm cn ACUTE ILLNESS 01/17/2015 Patient Education: Patient Medication Summary Completed 01/17/2015 Visit Plan: See Dr. Garvin for removal 09/29/2014 Appointment: Xiomara Bettencourt WPtel: [address] [place] [address] ACUTE ILLNESS 09/29/2014 Referral: Colt Garvin WPtel: [address] Referral Initiated 09/29/2014 Patient Education: Patient Medication Summary Completed 09/29/2014 Visit Plan: Check CBC, CMP, TSH, free T4 , HbA1C, Lipids Accuchecks daily alternating times Patient has been adjusting own meds and has not taken any cholesterol meds for sometime Will check into surgery on right knee at [facility] Check carotid dopplers 08/04/2014 Appointment: Xiomara Bettencourt WPtel: [address] [place] [address] Annual Well Visit 08/04/2014 Patient Education: Patient Medication Summary Completed 08/04/2014 Appointment: Kelsie Grubbs WPtel: [address] [place] [address] ACUTE ILLNESS 02/18/2014 Patient Education: Patient Medication Summary Completed 02/18/2014 Patient Education: [facility] - Saving AutoInj - 18+ - Dynamic Portal ID Completed 02/18/2014 Appointment: Xiomara Bettencourt WPtel: [address] [place], [place] [phone] 09/08/2013 Visit Plan: Check fasting lab in 1mo Con tinue Lantus and accuchecks at least BID 07/29/2013 Appointment: Xiomara Bettencourt WPtel: [address] [place] [address] FOLLOW UP 07/29/2013 Patient Education: Patient Medication Summary Completed 07/29/2013 Appointment: Xiomara Bettencourt WPtel: [address] [place], [place] [phone] [place] INJECTION 07/22/2013 Patient Education: Patient Medication Summary Completed 07/22/2013 Visit Plan: Pt has been self-adjusting m eds Stop metformin and amaryl Use Levemir 25u sc BID and call in 1wk with BS readings 05/26/2013 Appointment: Xiomara Bettencourt WPtel: [address] [place], [place] [phone] FOLLOW UP 05/26/2013 Patient Education: Patient Medication Summary Completed 05/26/2013 Visit Plan: DC Metformin Increase Lantus to 30u sc daily Change lisinopril to lisinopril HCT 20/25mg q AM Continue Gabapentin at current dose 04/28/2013 Appointment: Xiomara Bettencourt WPtel: [address] [place], [place] [phone] FOLLOW UP 04/28/2013 Patient Education: Patient Medication Summary Completed 04/28/2013 Appointment: Xiomara Bettencourt WPtel: [address] [place], [place] [phone] US LAB 03/12/2013 Patient Education: Patient Medication Summary Completed 03/12/2013 Visit Plan: Trial of neurontin 400mg q H S Obtain most recent lab results Change levemir to lantus per pt request Pt goes for sleep study tonite 03/11/2013 Appointment: Xiomara Bettencourt WPtel: [address] [place], [place] [phone] 02/01paperwork mailed 03/10 confirmed with spouse NEW PATIENT 11/2012 Patient Education: Patient Medication Summary Completed 03/11/2013 Instructions Comment . Saline nasal flushes prn. Tylenol/Motr in prn headache. Notify if persists/symptoms worsening. . CXR now to further evaluate symptoms Suspect viral since he has been on 2 rounds of antibiotics If chronic lung disease evident, will consider keeping on symbicort longterm Sample inhaler given today with instructions on use Continue oral prednisone, would like to avoid injection if possible considering his DM status and he is stable right now Continue albuterol PRN Will call with CXR results Has previously completed 10 days of Kefl ex and 5 days of Azithromycin . Albuterol INH via SVN every 4 hours Prednisone 20 mg PO BID Notify for worsening symptoms . Return in am for fasting labs - CBC, C MP, TSH, Free T4, HgbA1C Change Levemir to Toujeo - Continue 35 Units q am - sample given Start physical Therapy for increased quadriceps strengthening and decreased pain in knees, bilaterally. . Retry gabapentin at 300mg q HS Discussed needs testing for PAD--will start with ABIs Discussed spinal stenosis and lumbar deg disc disease as contributing to lower extremity weakness Patient has been running out of insulin due to cost so restarted glimepiride--once again discussed risk of using this medicine with insulin . I have went through his medications in past and stopped meds but he adjusts his meds on his own and has restarted some Stop Amaryl Once again discussed not using indomethacin routinely due to taking plavix and aspirin daily and senior care use is dangerous Check CBC, CMP, TSH, free T4, B12 and HbA1C Patient has seen Cardiology recently but no cardiac cath done--had chemical stress test . See Dr. Garvin for removal . Check CBC, CMP, TSH, free T4, HbA1C, L ipids Accuchecks daily alternating times Patient has been adjusting own meds and has not taken any cholesterol meds for sometime Will check into surgery on right knee at [facility] Check carotid dopplers . Check fasting lab in 1mo Continue Lantus and accuchecks at least BID . Pt has been self-adjusting meds Stop metformin and amaryl Use Levemir 25u sc BID and call in 1wk with BS readings . DC Metformin Increase Lantus to 30u sc daily Change lisinopril to lisinopril HCT 20/25mg q AM Continue Gabapentin at current dose . Trial of neurontin 400mg q HS Obtain most recent lab results Change levemir to lantus per pt request Pt goes for sleep study tonite Medical Equipment No Medical Equipment data Health Concerns Section Health Concerns data not found Goals Section Goals data not found Interventions Section Interventions data not found Health Status Evaluations/Outcomes Section Health Status Evaluations/Outcomes data not found Advance Directives No Advance Directive data
--- OUTSIDE RECORDS SUMMARY | 2020-02-02 21:29 | XMS REPORT | CCD ---
Author Author Sheng Bettencourt D.O. 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 Name Role Phone PP Unavailable CCM Unavailable Summary Purpose Interface Exchange Insurance Providers Payer name Policy type / Coverage type Covered libertarian ID Effective Begin Date Effective End Date WPS MEDICARE PART B [place] Medicare Part B [id number] 2018 Unknown [facility] Medicare Part B [id number] 2018 Un known Family history Mother Diagnosis Age At Onset Diabetes mellitus Type 2 Unknown Hypercholesterolemia Unknown Father Diagnosis Age At Onset No Family Disease Entered N/A Social History Social History Element Codes Description Effective Dates Marital status Unknown 03/11/2013 Number of children Unknown 4 03/11/2013 Employment Unknown Retired 03/11/[address]: 3298388 Former smoker 03/11/[address]: 606254 Currently drinks alc ohol Socially 03/11/2013 Has [...] Start Date Stop Date Status Fill Instructions OneTouch Ultra Blue Test Strip RxNorm: USE ONE STRIP TO TEST THREE TIMES A DAY 01/31/2020 No Stop Date Active Flomax 0.4 mg capsule RxNorm: 875533 TAKE TWO CAPSULES BY MOUTH EVERY EVENING 01/21/2020 07/18/2020 Active Flonase Allergy Relief 50 mcg/actuation nasal spray,suspensi on RxNorm: 9193418 2 [place] Nasal QPM 01/12/2020 05/11/2020 Active omeprazole 20 mg capsule,delayed release RxNorm: 644931 1 Capsule(s) Oral two times a day 01/12/2020 07/10/2020 Active simvastatin 20 mg tablet RxNorm: 499175 1 Tablet(s) Oral QD 020 04/02/2020 Active Needs updated fasting labs b efore 90 day refill Flomax 0.4 mg capsule RxNorm: 580431 TAKE TWO CAPSULES BY MOUTH EVERY EVENING 11/11/2019 01/20/2020 Inactive glimepiride 2 mg tablet RxNorm: 514758 1 Tablet(s) Oral QD 10/27/19 20 No Stop Date Active gabapentin 400 mg capsule RxNorm: 494253 1 Capsule(s) Oral QPM 10/0604/24/2020 Active potassium chloride ER 20 mEq tablet,extended release RxNorm: 868488 1 Tablet(s) Oral QD to take with lasix 10/20/2019 10/26/2019 Inactive furosemide 40 mg tablet RxNorm: 024419 1 Tablet(s) Oral QAM for swelling 10/20/2019 10/26/2019 Inactive albuterol sulfate HFA 90 mcg/actuation aerosol inhaler RxNor m: 9082014 1-2 Puff(s) Inhalation as needed 10/12/2019 No Stop Date Active Zyrtec 10 mg tablet RxNorm: 3908684 1 Tablet(s) Oral QAM 10/12/2019 No Stop Date Active aspirin 81 mg tablet,delayed release RxNorm: 736292 1 Tablet(s) Oral QD 10/12/2019 No Stop Date Active Symbicort 160 mcg-4.5 mcg/actuation HFA aerosol inhaler RxNo rm: 1948176 2 Puff(s) Inhalation QD 10/12/2019 No Stop Date Active lisinopril 20 mg tablet RxNorm: 389140 1 Tablet(s) Oral QD 10/12/19 20 01/10/2020 Inactive simvastatin 20 mg tablet RxNorm: 649416 1 Tablet(s) Ora l QD Needs updated fasting labs 09/20/2019 01/02/2020 Inactive Needs updated fa sting labs before 90 day refill Flomax 0.4 mg capsule RxNorm: 658712 TAKE TWO CAPSULES BY MOUTH EVERY EVENING 08/03/2019 11/10/2019 Inactive gabapentin 400 mg capsule RxNorm: 803738 TAKE ONE CAPSU LE BY MOUTH EVERY EVENING 08/02/2019 10/26/2019 Inactive simvastatin 20 mg tablet RxNorm: 167257 1 Tablet(s) Ora l QD Needs updated fasting labs 07/21/2019 08/19/2019 Inactive Needs updated fa sting labs before 90 day refill simvastatin 20 mg tablet RxNorm: 635285 1 Tablet(s) Ora l QD Needs updated fasting labs 06/23/2019 07/20/2019 Inactive Needs updated fa sting labs before 90 day refill Flomax 0.4 mg capsule RxNorm: 407236 1 Capsule(s) Oral QD 05/13/2019 10/19/2019 Inactive Flomax 0.4 mg capsule RxNorm: 665593 TAKE TWO CAPSULES BY MOUTH EVERY EVENING 03/19/2019 05/12/2019 Inactive Augmentin 500 mg-125 mg tablet RxNorm: 995510 1 Tablet(s) PO BID 03/03/2019 Inactive baclofen 10 mg tablet RxNorm: 049387 TAKE ONE TABLET BY MOUTH EVERY NIGHT AT BEDTIME FOR PAIN OR SPASMS 01/14/2019 05/12/2019 Inactive Flomax 0.4 mg capsule RxNorm: 671596 TAKE TWO CAPSULES BY MOUTH EVERY EVENING 01/12/2019 03/18/2019 Inactive gabapentin 400 mg capsule RxNorm: 755147 1 Capsule(s) PO QPM 201806/27/2019 Inactive baclofen 10 mg tablet RxNorm: 117384 1 Tablet(s) PO QHS for my n/spasm 12/15/2018 01/13/2019 Inactive simvastatin 20 mg tablet RxNorm: 584413 TAKE ONE TABLET BY MOUT H DAILY 12/11/2018 06/22/2019 Inactive OneTouch Ultra Blue Test Strip RxNorm: Use 1 rigoberto t strip three times daily to check blood sugar (Dx:E11.65) 12/07/2018 01/30/2020 Inactive gabapentin 400 mg capsule RxNorm: 884185 TAKE ONE CAPSU LE BY MOUTH EVERY EVENING 12/04/2018 12/29/2018 Inactive baclofen 10 mg tablet RxNorm: 006537 1 Tablet(s) PO QHS for my n/spasm 11/19/2018 12/15/2018 Inactive Flomax 0.4 mg capsule RxNorm: 626015 2 Capsule(s) PO QPM 09/15/2018 0 12/13/2018 Inactive WOULD LIKE 90DS!!! gabapentin 400 mg capsule RxNorm: 281619 TAKE ONE CAPSU LE BY MOUTH EVERY EVENING 07/21/2018 10/18/2018 Inactive simvastatin 20 mg tablet RxNorm: 714863 1 Tablet(s) PO QD 06/15/2018 12/10/2018 Inactive Flomax 0.4 mg capsule RxNorm: 620296 TAKE TWO CAPSULES BY MOUTH EVERY EVENING 06/02/2018 09/15/2018 Inactive WOULD LIKE 90DS!!! Flomax 0.4 mg capsule RxNorm: 800147 2 Capsule(s) PO QPM 04/21/2018 1 07/20/2017 Inactive simvastatin 20 mg tablet RxNorm: 341738 1 Tablet(s) PO QD Take 1 tablet by mouth daily. Patient due for labwork before further refill. 04/06/20182017 Inactive simvastatin 20 mg tablet RxNorm: 960635 Tablet(s) TAKE ONE TABLET BY MOUTH DAILY 03/25/2018 06/15/2018 Inactive simvastatin 20 mg tablet RxNorm: 890645 Tablet(s) TAKE ONE TABLET BY MOUTH DAILY due for appt 12/29/2017 03/25/2018 Inactive simvastatin 20 mg tablet RxNorm: 248942 TAKE ONE TABLET BY MOUT H DAILY 09/03/2017 12/29/2017 Inactive simvastatin 20 mg tablet RxNorm: 807551 1 Tablet(s) PO QD 10/22/2016 11/18/2018 Inactive isosorbide mononitrate ER 60 mg tablet,extended release 24 h r RxNorm: 951629 1 Tablet(s) PO QD 10/22/2016 04/21/2017 Inactive isosorbide mononitrate ER 60 mg tablet,extended release 24 h r RxNorm: 035598 1 Tablet(s) PO QD 10/10/2016 10/21/2016 Inactive simvastatin 20 mg tablet RxNorm: 051430 1 Tablet(s) PO QD 10/10/2016 10/21/2016 Inactive gabapentin 400 mg capsule RxNorm: 806252 1 Capsule(s) PO QPM 201609/20/2016 Inactive Toujeo SoloStar 300 unit/mL (1.5 mL) subcutaneous insulin pe n RxNorm: 1325722 35 Unit(s) SQ QAM 07/23/2016 07/22/2016 Inactive Toujeo SoloStar 300 unit/mL (1.5 mL) subcutaneous insulin pe n RxNorm: 2990063 40 Unit(s) SQ QAM 09/01/2015 No Stop Date Active Symbicort 160 mcg-4.5 mcg/actuation HFA aerosol inhaler RxNo rm: 6188838 2 Puff(s) INH BID 08/31/2015 09/09/2015 Inactive prednisone 20 mg tablet RxNorm: 239286 1 Tablet(s) PO BID 08/29/2015 09/02/2015 Inactive albuterol sulfate 2.5 mg/3 mL (0.083 %) solution for n ebulization RxNorm: 222253 1 Unit(s) INH Q4H as needed 08/29/2015 10/09/2016 Inactive levothyroxine 75 mcg tablet RxNorm: 602513 1 Tablet(s) PO QD 201507/27/2015 Inactive levothyroxine 75 mcg tablet RxNorm: 444206 1 Tablet(s) PO QD 201511/18/2018 Inactive levothyroxine 75 mcg tablet RxNorm: 728919 1 Tablet(s) PO QD 201507/27/2015 Inactive lisinopril 20 mg-hydrochlorothiazide 25 mg tablet RxNorm: 19 7887 TAKE ONE TABLET BY MOUTH EVERY MORNING. REPLACES PLAIN LISINOPRIL 03/06/2015 04/21/2017 Inactive lisinopril 20 mg-hydrochlorothiazide 25 mg tablet RxNorm: 19 7887 TAKE ONE TABLET BY MOUTH EVERY MORNING. REPLACES PLAIN LISINOPRIL 09/08/2014 03/05/2015 Inactive allopurinol 100 mg tablet RxNorm: 231621 1 Tablet(s) PO BID 015 10/09/2016 Inactive [SAVINGS FOR NON-COVERED YULIA -- BIN:[id number], PCN: [id number], Group: XXXXX, ID# [id number], Questions: . THIS IS NOT INSURANCE.] levothyroxine 50 mcg tablet RxNorm: 227022 1 Tablet(s) PO QD 201407/26/2015 Inactive [AttnRPh: Saving apply/adjud icate RxGRP:SG20 RxBIN:[id number] RxPCN: ID#:[id number]] Zegerid 40 mg-1.1 gram capsule RxNorm: 054634 1 Capsule(s) PO QD 03/03/2014 Inactive [AttnRPh: Saving apply/adjud icate RxGRP:SG20 RxBIN:[id number] RxPCN:HT ID#:[id number]] ondansetron 8 mg disintegrating tablet RxNorm: 975903 1 Tablet(s) PO Q8H as needed for [...] 07/28/2013 Inactive gabapentin 400 mg capsule RxNorm: 990855 1 Capsule(s) PO QPM 201207/28/2013 Inactive gabapentin 400 mg capsule RxNorm: 299770 1 Capsule(s) PO QPM 201206/26/2013 Inactive lisinopril 20 mg-hydrochlorothiazide 25 mg tablet RxNorm: 82 3971 1 Tablet(s) PO QAM replaces plain lisinopril 04/28/2013 07/29/2013 Inactive gabapentin 400 mg capsule RxNorm: 521795 1 Capsule(s) PO QPM 201204/27/2013 Inactive gabapentin 400 mg capsule RxNorm: 953315 1 Capsule(s) PO QPM 201203/10/2013 Inactive gabapentin 400 mg capsule RxNorm: 876651 1 Capsule(s) PO QPM 201203/14/2013 Inactive Lantus Solostar 100 unit/mL (3 mL) Sub-Q Insulin Pen RxNorm: 642598 20 Unit(s) SQ QPM 03/11/2013 03/15/2013 Inactive Toujeo SoloStar 300 unit/mL (1.5 mL) subcutaneous insulin pe n RxNorm: 6856312 35 Unit(s) SQ QAM No Start Date Active isosorbide mononitrate ER 60 mg tablet,extended release 24 h r RxNorm: 187071 1 Tablet(s) PO QD No Start Date Active Eliquis 5 mg tablet RxNorm: 0828420 1 Tablet(s) PO BID No Start Date Active metformin 500 mg tablet RxNorm: 264508 1 Tablet(s) PO BID No Start Da te Active levothyroxine 50 mcg tablet RxNorm: 433538 1 Tablet(s) PO QD No Start Date Active Norvasc 10 mg tablet RxNorm: 387476 1 Tablet(s) PO QHS No Start Date Active Toujeo SoloStar 300 unit/mL (1.5 mL) subcutaneous insulin pe n RxNorm: 6187833 30 Unit(s) SQ QAM No Start Date Active glimepiride 4 mg tablet RxNorm: 738929 1 Tablet(s) PO QHS No Start Date 07/26/2015 Inactive omeprazole 20 mg capsule,delayed release RxNorm: 013710 1 Capsu le(s) PO QD No Start Date 01/11/2020 Inactive allopurinol 100 mg tablet RxNorm: 912479 1 Tablet(s) PO BID No Star t Date 08/10/2014 Inactive Lantus Solostar 100 unit/mL (3 mL) subcutaneous insulin pen RxNorm: 813556 30 Unit(s) SQ QD No Start Date 08/03/2014 Inactive Levemir FlexTouch 100 unit/mL (3 mL) subcutaneous insulin pe n RxNorm: 528916 25 Unit(s) SQ QAM No Start Date 07/23/2015 Inactive Lantus 100 unit/mL Sub-Q RxNorm: 548578 30 Unit(s) SQ QHS No Start Date 05/25/2013 Inactive Lantus Solostar 100 unit/mL (3 mL) Sub-Q Insulin Pen RxNorm: 347715 20 Unit(s) SQ QPM No Start Date 03/10/2013 Inactive OneTouch Ultra Blue Test Strip RxNorm: Use 1 rigoberto t strip three times daily to check blood sugar (Dx:E11.65) No Start Date 12/06/2018 Inactive Levemir FlexTouch 100 unit/mL (3 mL) subcutaneous insulin pe n RxNorm: 554893 30- 35 Unit(s) SQ QAM No Start Date 07/23/2015 Inactive Levemir Flexpen 100 unit/mL (3 mL) solution subcutaneo us insulin pen RxNorm: 149632 20-25 Unit(s) SQ QD No Start Date 07/28/2013 Inactive lisinopril 20 mg tablet RxNorm: 710684 1 Tablet(s) PO QD No Start D ate 10/11/2019 Inactive indomethacin ER 75 mg capsule,extended release RxNorm: 25008 2 1 Capsule(s) PO QAM No Start Date 04/27/2013 Inactive indomethacin ER 75 mg capsule,extended release RxNorm: 33398 2 1 Capsule(s) PO QD No Start Date 01/16/2015 Inactive Chlortab-4 oral RxNorm: 026737 oral No Start Date 10/11/2019 Inac tive Vitamin D3 5,000 unit tablet RxNorm: 587229 1 Tablet(s) PO QD No St art Date 08/03/2014 Inactive Levemir Flexpen 100 unit/mL (3 mL) solution subcutaneo us insulin Pen RxNorm: 208059 20 Unit(s) SQ QHS No Start Date 03/10/2013 Inactive Vytorin 10 mg-40 mg tablet RxNorm: 4375126 1/2 Tablet(s) PO QD No S tart Date 04/20/2018 Inactive oxymetazoline-menthol 0.05 % nasal spray RxNorm: 8094929 [place] N COTY No Start Date 10/11/2019 Inactive Patient states he ta kes every 10 hours Toujeo SoloStar 300 unit/mL (1.5 mL) subcutaneous insulin pe n RxNorm: 8359428 35 Unit(s) SQ QAM No Start Date 07/22/2016 Inactive Lantus Solostar 100 unit/mL (3 mL) subcutaneous insulin pen RxNorm: 467287 20 Unit(s) SQ QD No Start Date 08/03/2014 Inactive aspirin 81 mg tablet RxNorm: 960397 1 Tablet(s) PO QD No Start Date 0 08/03/2014 Inactive metformin 500 mg tablet RxNorm: 431552 1 Tablet(s) PO BID No Start Date 07/28/2013 Inactive glimepiride 4 mg tablet RxNorm: 794249 1 Tablet(s) PO BID No Start Date 01/16/2015 Inactive glimepiride 4 mg tablet RxNorm: 622118 1 Tablet(s) PO QD No Start D ate 08/03/2014 Inactive levothyroxine 25 mcg tablet RxNorm: 883547 1 Tablet(s) PO QD No Sta rt Date 08/10/2014 Inactive doxycycline oral RxNorm: 06017 oral No Start Date 05/12/2019 Inac tive aspirin 81 mg tablet RxNorm: 612873 1 Tablet(s) PO QD No Start Date 0 07/21/2018 Inactive isosorbide mononitrate ER 60 mg tablet,extended release 24 h r RxNorm: 369501 1 Tablet(s) PO BID No Start Date 01/16/2015 Inactive metformin 500 mg tablet RxNorm: 307028 1 Tablet(s) PO BID No Start Date 04/27/2013 Inactive Plavix 75 mg tablet RxNorm: 893612 1 Tablet(s) PO QD No Start Date Inactive glimepiride 4 mg tablet RxNorm: 525208 1 Tablet(s) PO QPM No Start Date 02/21/2019 Inactive Vytorin 10-40 10 mg-40 mg tablet RxNorm: 8759444 1 Tablet(s) PO QHS No Start Date 08/03/2014 Inactive indomethacin 50 mg capsule RxNorm: 191041 1 Capsule(s) PO QHS No St art Date 01/16/2015 Inactive glimepiride 4 mg tablet RxNorm: 121550 1 Tablet(s) PO BID No Start Date 07/28/2013 Inactive Levemir FlexTouch 100 unit/mL (3 mL) subcutaneous insulin pe n RxNorm: 527430 20 Unit(s) SQ QD No Start Date 04/30/2015 Inactive lisinopril 20 mg tablet RxNorm: 976605 1 Tablet(s) PO BID No Start Date 04/27/2013 Inactive Lantus Solostar SubQ RxNorm: Subcutaneous No Start Date 03/15/2013 I nactive Zantac 150 mg tablet RxNorm: 869905 1 Tablet(s) PO QHS No Start Date 10/11/2019 Inactive allopurinol 300 mg tablet RxNorm: 905482 1 Tablet(s) PO QD No Start Date 08/03/2014 Inactive Fish Oil 1,000 mg capsule RxNorm: 1 Capsule(s) PO QD No Start Date 02/21/2019 Inactive indomethacin 50 mg capsule RxNorm: 831901 1 Capsule(s) PO BID No St art Date 04/20/2018 Inactive levothyroxine 50 mcg tablet RxNorm: 042089 1 Tablet(s) PO QD No Sta rt Date 08/10/2014 Inactive glimepiride 4 mg tablet RxNorm: 770000 1 Tablet(s) PO BID No Start Date 03/15/2013 Inactive indomethacin 50 mg capsule RxNorm: 629019 1 Capsule(s) PO QHS No St art Date 04/27/2013 Inactive Medication Administered No Medication Administered data Immunizations Vaccine Codes Date Status Influenza CVX: 135 04/21/2018 Complete Influenza CVX: 135 04/22/2017 Complete Results Observation Observation Code Item Item Code Result Date S ervice Location [facility] 42871 Cholesterol 209 mg/dL 09/17/2016 Unkno wn [facility] 36995 Triglyceride 111 mg/dL 09/17/2016 Unkn own [facility] 43322 HDL CHOLESTEROL 50 mg/dL 09/17/2016 U nknown [facility] 08160 Chol/HDL Ratio 4.18 ratio 09/17/2016 U nknown [facility] 83542 NON-HDL Chol 159 mg/dL 09/17/2016 Unkn own [facility] 52530 LDL Cholesterol 137 mg/dL 09/17/2016 U nknown MEAN GLUC 5231685 Calc Mean Gluc 151 mg/dL 09/17/2016 Unkn own COMPREHENSIVE METABOLIC 10222 AST 23 U/L 2016 Unknown COMPREHENSIVE METABOLIC 34069 ALT 19 U/L 2016 Unknown COMPREHENSIVE METABOLIC 81420 BUN 15 mg/dL 2016 Unknown COMPREHENSIVE METABOLIC 49081 ALBUMIN 4.3 g/dL 2016 Unknown COMPREHENSIVE METABOLIC 73040 CHLORIDE 103 mmol/L 09/17 Unknown COMPREHENSIVE METABOLIC 01600 Bili Total 0.6 mg/dL 09/17 Unknown COMPREHENSIVE METABOLIC 14188 ALK PHOS 60 U/L 2016 Unknown COMPREHENSIVE METABOLIC 92400 SODIUM 140 mmol/L 09/17 Unknown COMPREHENSIVE METABOLIC 53972 CREATININE 1.03 mg/dL 09/04 Unknown COMPREHENSIVE METABOLIC 61570 CALCIUM 9.5 mg/dL 2016 Unknown COMPREHENSIVE METABOLIC 45267 POTASSIUM 3.9 mmol/L 09/17 Unknown COMPREHENSIVE METABOLIC 96236 Total Protein 6.9 g/dL Unknown COMPREHENSIVE METABOLIC 06534 Glucose 94 mg/dL 2016 Unknown COMPREHENSIVE METABOLIC 64173 Bicarbonate 28 mmol/L 09/04 Unknown COMPREHENSIVE METABOLIC 54087 AGAP 9 mmol/L 2016 Unknown GFR CALC 7795069 GFR Non Afr Amr >60 mL/min 09/17/2016 Un known GFR CALC 6368346 GFR Afr Amr >60 mL/min 09/17/2016 Unknow n THYROID STIMULATING HORMONE 44914 TSH 4.260 uIU/mL 09/17/2016 Unknown GLYCOSYLATED HEMOGLOBIN TEST 53219 Hgb A1c 58426-1 6.9 % 0 09/17/2016 Unknown FREE T4 62431 T4 Free 1.02 ng/dL 09/17/2016 Unknown COMPLETE BLOOD COUNT 0001328 WBC 8.6 10e9/L 07/26/19 16 Unknown COMPLETE BLOOD COUNT 0510830 RBC 4.86 10e12/L 2015 Unknown COMPLETE BLOOD COUNT 1208020 HGB 14.6 g/dL 6 Unknown COMPLETE BLOOD COUNT 5815665 HCT DET 43.1 % 6 Unknown COMPLETE BLOOD COUNT 0324579 MCV 88.7 fL 6 Unknown COMPLETE BLOOD COUNT 5593694 MCH 30.0 pg 6 Unknown COMPLETE BLOOD COUNT 6574569 MCHC 33.9 g/dL 6 Unknown COMPLETE BLOOD COUNT 2525974 PLT 267 10e9/L 07/26/19 16 Unknown COMPLETE BLOOD COUNT 1839184 MPV 11.5 fL 6 Unknown COMPLETE BLOOD COUNT 5324082 SAM % 64.8 % 6 Unknown COMPLETE BLOOD COUNT 4093908 LY % 16.8 % 6 Unknown COMPLETE BLOOD COUNT [id number] MON % 12.5 % 6 Unknown COMPLETE BLOOD COUNT 0137996 EOS % 5.6 % 6 Unknown COMPLETE BLOOD COUNT 0126193 BASO % 0.3 % 6 Unknown COMPLETE BLOOD COUNT 5077732 RDW 13.4 % 6 Unknown COMPLETE BLOOD COUNT [id number] ABS SAM 5.57 10e9/L 016 Unknown COMPLETE BLOOD COUNT [id number] ABS LYMPH 1.44 10e9/L 016 Unknown COMPLETE BLOOD COUNT [id number] ABS MONO 1.08 10e9/L 016 Unknown COMPLETE BLOOD COUNT [id number] ABS EOS 0.48 10e9/L 016 Unknown COMPLETE BLOOD COUNT 0634001 ABS BASO 0.03 10e9/L 016 Unknown COMPLETE BLOOD COUNT [id number] RDW-SD 42.9 fL 6 Unknown PSA EQUIMOLAR MATT 35250 PSA EQ 0.78 NG/ML 6 Unknown THYROID STIMULATING HORMONE 15128 TSH 5.292 uIU/ML 07/26/2015 Unknown GLYCOSYLATED HEMOGLOBIN TEST 33057 A1C HPLC 36507-4 7.0 % 0 07/26/2015 Unknown GFR CALC 0691196 GFR AA >60 ML/MIN 07/26/2015 Unknown GFR CALC 5550600 GFR NON-AA >60 ML/MIN 07/26/2015 Unknown [facility] 42900 HDL TEST 64 MG/DL 07/26/2015 Unknown [facility] 09628 TRIG 58 MG/DL 07/26/2015 Unknown [facility] 54888 TEST LDL 49 MG/DL 07/26/2015 Unknown [facility] 09710 CHOL 125 MG/DL 07/26/2015 Unknown [facility] 63333 RCHOL/HDL 1.95 RATIO 07/26/2015 Unknow n [facility] 51131 NON-HDL CH 61 MG/DL 07/26/2015 Unknow n COMPREHENSIVE METABOLIC 40293 AST 25 U/L 2015 Unknown COMPREHENSIVE METABOLIC 99198 ALT 23 IU/L 2015 Unknown COMPREHENSIVE METABOLIC 12940 BUN 18 MG/DL 2015 Unknown COMPREHENSIVE METABOLIC 75446 ALBUMIN 4.6 GM/DL 2015 Unknown COMPREHENSIVE METABOLIC 11520 CHLORIDE 100 MMOL/L 07/26 Unknown COMPREHENSIVE METABOLIC 39738 BILI TOT 0.5 MG/DL 2015 Unknown COMPREHENSIVE METABOLIC 75766 ALK PHOS 49 U/L 2015 Unknown COMPREHENSIVE METABOLIC 36909 SODIUM 137 MMOL/L 07/26 Unknown COMPREHENSIVE METABOLIC 48531 CREATININE 1.06 MG/DL 07/08 Unknown COMPREHENSIVE METABOLIC 63562 CALCIUM 9.5 MG/DL 2015 Unknown COMPREHENSIVE METABOLIC 17362 POTASSIUM 4.5 MMOL/L 07/26 Unknown COMPREHENSIVE METABOLIC 97071 PROT TOT 6.5 GM/DL 2015 Unknown COMPREHENSIVE METABOLIC 22214 Glucose 109 MG/DL 2015 Unknown COMPREHENSIVE METABOLIC 04353 BICARB 29 MMOL/L 2015 Unknown COMPREHENSIVE METABOLIC 18721 ANION GAP 8 MEQ/L 2015 Unknown FREE T4 47552 FREE T4 1.11 NG/DL 07/26/2015 Unknown CULTURE & SENSITIVITY 00452 PROTEIN UR NEG 015 Unknown CULTURE & SENSITIVITY 44752 HEMGLBN UR TR 015 Unknown CULTURE & SENSITIVITY 24698 GLUCOSE UR NEG 015 Unknown CULTURE & SENSITIVITY 81624 KETONES UR NEG 015 Unknown CULTURE & SENSITIVITY 49575 PH U 6.5 01/25/20 15 Unknown CULTURE & SENSITIVITY 54714 SP GR U 1.013 01/25/20 15 Unknown CULTURE & SENSITIVITY 80255 BILRUBN UR NEG 015 Unknown CULTURE & SENSITIVITY 59956 LEUKO UR NEG 01/25/20 15 Unknown CULTURE & SENSITIVITY 59875 NITRITE UR NEG 015 Unknown MICR CUL? [id number] SP TO JOHANA? NO 01/24/2015 Unknown MICR CUL? 9616007 APPEAR UR NORMAL 01/24/2015 Unknown MICR CUL? 8560172 RBC/uL 2.2 01/24/2015 Unknown MICR CUL? 0799395 WBC/uL 2.8 01/24/2015 Unknown MICR CUL? 9406228 SQ EPI/uL 1.0 01/24/2015 Unknown MICR CUL? 2185391 HYALCST/uL 0.25 01/24/2015 Unknown MICR CUL? 1691006 WBC /HPF 1 01/24/2015 Unknown MICR CUL? 2621309 RBC /HPF 0 01/24/2015 Unknown GLYCOSYLATED HEMOGLOBIN TEST 64530 A1C HPLC 97369-7 6.6 % 0 01/17/2015 Unknown COMPLETE BLOOD COUNT [id number] WBC 10.1 10e9/L 015 Unknown COMPLETE BLOOD COUNT 5674502 RBC 4.60 10e12/L 2014 Unknown COMPLETE BLOOD COUNT 2528184 HGB 14.0 g/dL 5 Unknown COMPLETE BLOOD COUNT 0826234 HCT DET 39.9 % 5 Unknown COMPLETE BLOOD COUNT 6564819 MCV 86.7 fL 5 Unknown COMPLETE BLOOD COUNT 7889314 MCH 30.4 pg 5 Unknown COMPLETE BLOOD COUNT 6571521 MCHC 35.1 g/dL 5 Unknown COMPLETE BLOOD COUNT 4877277 PLT 252 10e9/L 01/18/20 15 Unknown COMPLETE BLOOD COUNT 4243564 MPV 11.4 fL 5 Unknown COMPLETE BLOOD COUNT 3909055 SAM % 72.9 % 5 Unknown COMPLETE BLOOD COUNT 2866848 LY % 13.6 % 5 Unknown COMPLETE BLOOD COUNT 4126725 MON % 10.2 % 5 Unknown COMPLETE BLOOD COUNT 4458136 EOS % 3.1 % 5 Unknown COMPLETE BLOOD COUNT 7124513 BASO % 0.2 % 5 Unknown COMPLETE BLOOD COUNT 5763775 RDW 13.6 % 5 Unknown COMPLETE BLOOD COUNT 9394469 ABS SAM 7.36 10e9/L 015 Unknown COMPLETE BLOOD COUNT 8129406 ABS LYMPH 1.37 10e9/L 015 Unknown COMPLETE BLOOD COUNT 8583948 ABS MONO 1.03 10e9/L 015 Unknown COMPLETE BLOOD COUNT 2878066 ABS EOS 0.31 10e9/L 015 Unknown COMPLETE BLOOD COUNT 2478874 ABS BASO 0.02 10e9/L 015 Unknown COMPLETE BLOOD COUNT 5654695 RDW-SD 42.4 fL 5 Unknown GFR CALC 9923056 GFR AA 51.0L ML/MIN 01/17/2015 Unknow n GFR CALC 2182586 GFR NON-AA 42.0L ML/MIN 01/17/2015 Unkno wn FREE T4 12743 FREE T4 1.30 NG/DL 01/17/2015 Unknown THYROID STIMULATING HORMONE 54018 TSH 4.029 uIU/ML 01/17/2015 Unknown COMPREHENSIVE METABOLIC 84781 AST 28 U/L 2014 Unknown COMPREHENSIVE METABOLIC 22345 ALT 25 IU/L 2014 Unknown COMPREHENSIVE METABOLIC 67590 BUN 21 MG/DL 2014 Unknown COMPREHENSIVE METABOLIC 01248 ALBUMIN 4.7 GM/DL 2014 Unknown COMPREHENSIVE METABOLIC 07526 CHLORIDE 102 MMOL/L 01/17 Unknown COMPREHENSIVE METABOLIC 68248 BILI TOT 0.6 MG/DL 2014 Unknown COMPREHENSIVE METABOLIC 10879 ALK PHOS 44 U/L 2014 Unknown COMPREHENSIVE METABOLIC 91062 SODIUM 137 MMOL/L 01/17 Unknown COMPREHENSIVE METABOLIC 46020 CREATININE 1.62 MG/DL 01/04 Unknown COMPREHENSIVE METABOLIC 77702 CALCIUM 9.7 MG/DL 2014 Unknown COMPREHENSIVE METABOLIC 70858 POTASSIUM 4.5 MMOL/L 01/17 Unknown COMPREHENSIVE METABOLIC 98315 PROT TOT 6.5 GM/DL 2014 Unknown COMPREHENSIVE METABOLIC 88857 Glucose 136 MG/DL 2014 Unknown COMPREHENSIVE METABOLIC 58404 BICARB 24 MMOL/L 2014 Unknown COMPREHENSIVE METABOLIC 79038 ANION GAP 11 MEQ/L 2014 Unknown VITAMIN B 12 47523 VIT B 12 482 PG/ML 01/17/2015 Unknow n URIC ACID 84627 URIC ACID 8.5 MG/DL 08/09/2014 Unknown COMPREHENSIVE METABOLIC 10673 AST 27 U/L 2014 Unknown COMPREHENSIVE METABOLIC 57396 ALT 26 IU/L 2014 Unknown COMPREHENSIVE METABOLIC 55129 BUN 17 MG/DL 2014 Unknown COMPREHENSIVE METABOLIC 20218 ALBUMIN 5.0 GM/DL 2014 Unknown COMPREHENSIVE METABOLIC 48583 CHLORIDE 101 MMOL/L 08/09 Unknown COMPREHENSIVE METABOLIC 11142 BILI TOT 0.7 MG/DL 2014 Unknown COMPREHENSIVE METABOLIC 62275 ALK PHOS 53 U/L 2014 Unknown COMPREHENSIVE METABOLIC 65019 SODIUM 136 MMOL/L 08/09 Unknown COMPREHENSIVE METABOLIC 95203 CREATININE 1.14 MG/DL 09/2014 Unknown COMPREHENSIVE METABOLIC 65178 CALCIUM 9.8 MG/DL 2014 Unknown COMPREHENSIVE METABOLIC 85703 POTASSIUM 4.1 MMOL/L 08/09 Unknown COMPREHENSIVE METABOLIC 78538 PROT TOT 7.5 GM/DL 2014 Unknown COMPREHENSIVE METABOLIC 25730 Glucose 110 MG/DL 2014 Unknown COMPREHENSIVE METABOLIC 24149 BICARB 30 MMOL/L 2014 Unknown COMPREHENSIVE METABOLIC 38600 ANION GAP 5 MEQ/L 2014 Unknown GFR CALC 1650126 GFR AA >60 ML/MIN 08/09/2014 Unknown GFR CALC 3880385 GFR NON-AA >60 ML/MIN 08/09/2014 Unknown FREE T4 47234 FREE T4 1.14 NG/DL 08/09/2014 Unknown GLYCOSYLATED HEMOGLOBIN TEST 56486 A1C HPLC 13797-4 6.8 % 0 08/09/2014 Unknown COMPLETE BLOOD COUNT 9636076 WBC 5.9 10e9/L 08/09/19 15 Unknown COMPLETE BLOOD COUNT 1463411 RBC 5.04 10e12/L 2014 Unknown COMPLETE BLOOD COUNT 3515725 HGB 15.2 g/dL 5 Unknown COMPLETE BLOOD COUNT 3909934 HCT DET 44.3 % 5 Unknown COMPLETE BLOOD COUNT 8311598 MCV 87.9 fL 5 Unknown COMPLETE BLOOD COUNT 6729376 MCH 30.2 pg 5 Unknown COMPLETE BLOOD COUNT 6493421 MCHC 34.3 g/dL 5 Unknown COMPLETE BLOOD COUNT 8369152 PLT 262 10e9/L 08/09/19 15 Unknown COMPLETE BLOOD COUNT 1985517 MPV 10.9 fL 5 Unknown COMPLETE BLOOD COUNT 0598662 SAM % 58.7 % 5 Unknown COMPLETE BLOOD COUNT 4157497 LY % 21.5 % 5 Unknown COMPLETE BLOOD COUNT 5794502 MON % 14.0 % 5 Unknown COMPLETE BLOOD COUNT [id number] EOS % 5.3 % 5 Unknown COMPLETE BLOOD COUNT [id number] BASO % 0.5 % 5 Unknown COMPLETE BLOOD COUNT [id number] RDW 13.1 % 5 Unknown COMPLETE BLOOD COUNT [id number] ABS SAM 3.46 10e9/L 015 Unknown COMPLETE BLOOD COUNT [id number] ABS LYMPH 1.27 10e9/L 015 Unknown COMPLETE BLOOD COUNT [id number] ABS MONO 0.83 10e9/L 015 Unknown COMPLETE BLOOD COUNT [id number] ABS EOS 0.31 10e9/L 015 Unknown COMPLETE BLOOD COUNT [id number] ABS BASO 0.03 10e9/L 015 Unknown COMPLETE BLOOD COUNT [id number] RDW-SD 41.2 fL 5 Unknown THYROID STIMULATING HORMONE 34754 TSH 5.395 uIU/ML 08/09/2014 Unknown LIPID GROUP 31601 HDL TEST 52 MG/DL 08/09/2014 Unknown LIPID GROUP 13220 TRIG 113 MG/DL 08/09/2014 Unknown LIPID GROUP 47297 TEST LDL 158 MG/DL 08/09/2014 Unknown LIPID GROUP 18789 CHOL 233 MG/DL 08/09/2014 Unknown LIPID GROUP 96729 RCHOL/HDL 4.48 RATIO 08/09/2014 Unknow n LIPID GROUP 32007 NON-HDL CH 181 MG/DL 08/09/2014 Unknow n COMPLETE BLOOD COUNT [id number] WBC 6.8 10e9/L 09/09/19 14 Unknown COMPLETE BLOOD COUNT [id number] RBC 5.18 10e12/L 2013 Unknown COMPLETE BLOOD COUNT [id number] HGB 15.2 g/dL 4 Unknown COMPLETE BLOOD COUNT [id number] HCT DET 44.7 % 4 Unknown COMPLETE BLOOD COUNT [id number] MCV 86.3 fL 4 Unknown COMPLETE BLOOD COUNT [id number] MCH 29.3 pg 4 Unknown COMPLETE BLOOD COUNT [id number] MCHC 34.0 g/dL 4 Unknown COMPLETE BLOOD COUNT [id number] PLT 236 10e9/L 09/09/19 14 Unknown COMPLETE BLOOD COUNT [id number] MPV 11.0 fL 4 Unknown COMPLETE BLOOD COUNT [id number] SAM % 58.2 % 4 Unknown COMPLETE BLOOD COUNT [id number] LY % 21.9 % 4 Unknown COMPLETE BLOOD COUNT [id number] MON % 12.5 % 4 Unknown COMPLETE BLOOD COUNT [id number] EOS % 7.3 % 4 Unknown COMPLETE BLOOD COUNT [id number] BASO % 0.1 % 4 Unknown COMPLETE BLOOD COUNT [id number] RDW 13.6 % 4 Unknown COMPLETE BLOOD COUNT [id number] ABS SAM 3.96 10e9/L 014 Unknown COMPLETE BLOOD COUNT [id number] ABS LYMPH 1.49 10e9/L 014 Unknown COMPLETE BLOOD COUNT [id number] ABS MONO 0.85 10e9/L 014 Unknown COMPLETE BLOOD COUNT [id number] ABS EOS 0.50 10e9/L 014 Unknown COMPLETE BLOOD COUNT [id number] ABS BASO 0.01 10e9/L 014 Unknown COMPLETE BLOOD COUNT [id number] RDW-SD 42.3 fL 4 Unknown COMPREHENSIVE METABOLIC 15748 AST 27 U/L 2013 Unknown COMPREHENSIVE METABOLIC 31871 ALT 30 IU/L 2013 Unknown COMPREHENSIVE METABOLIC 94782 BUN 16 MG/DL 2013 Unknown COMPREHENSIVE METABOLIC 32975 ALBUMIN 4.9 GM/DL 2013 Unknown COMPREHENSIVE METABOLIC 17979 CHLORIDE 99 MMOL/L 2013 Unknown COMPREHENSIVE METABOLIC 12531 BILI TOT 0.7 MG/DL 2013 Unknown COMPREHENSIVE METABOLIC 69992 ALK PHOS 53 U/L 2013 Unknown COMPREHENSIVE METABOLIC 45937 SODIUM 137 MMOL/L 09/08 Unknown COMPREHENSIVE METABOLIC 11041 CREATININE 1.01 MG/DL 11/2013 Unknown COMPREHENSIVE METABOLIC 83950 CALCIUM 10.0 MG/DL 09/08 Unknown COMPREHENSIVE METABOLIC 94572 POTASSIUM 4.4 MMOL/L 09/08 Unknown COMPREHENSIVE METABOLIC 09873 PROT TOT 7.1 GM/DL 2013 Unknown COMPREHENSIVE METABOLIC 89320 Glucose 148 MG/DL 2013 Unknown COMPREHENSIVE METABOLIC 44089 BICARB 30 MMOL/L 2013 Unknown COMPREHENSIVE METABOLIC 46203 ANION GAP 8 MEQ/L 2013 Unknown GFR CALC 4364462 GFR AA >60 ML/MIN 09/08/2013 Unknown GFR CALC 1249590 GFR NON-AA >60 ML/MIN 09/08/2013 Unknown FREE T4 04551 FREE T4 1.08 NG/DL 09/08/2013 Unknown GLYCOSYLATED HEMOGLOBIN TEST 72969 A1C HPLC 98027-2 7.3 % 0 09/08/2013 Unknown THYROID STIMULATING HORMONE 27102 TSH 5.454 uIU/ML 09/08/2013 Unknown LIPID GROUP 80409 HDL TEST 59 MG/DL 09/08/2013 Unknown LIPID GROUP 54514 TRIG 92 MG/DL 09/08/2013 Unknown LIPID GROUP 80669 TEST LDL 83 MG/DL 09/08/2013 Unknown LIPID GROUP 57244 CHOL 160 MG/DL 09/08/2013 Unknown LIPID GROUP 64772 RCHOL/HDL 2.71 RATIO 09/08/2013 Unknow n VITAMIN B 12 FOLIC ACID 47977|42984 VIT B 12 467 PG/ML 12/2012 Unknown VITAMIN B 12 FOLIC ACID 89478|40288 FOLIC ACID 12.2 NG/ML Unknown VITAMIN B 12 FOLIC ACID 46811|95365 VIT B 12 467 PG/ML 12/2012 Unknown THYROID STIMULATING HORMONE 84943 TSH 4.557 uIU/ML 03/12/2013 Unknown HEMOGLOBIN A1C (GLYCOSYLATED) 0733151 A1C HPLC 65445-9 7.6 % 03/12/2013 Unknown VITAMIN D TOTAL (25 HYDROXY) 19552 VIT D TOTL 17 NG/ML 03/12/2013 Unknown FREE T4 90257 FREE T4 1.07 NG/DL 03/12/2013 Unknown URIC ACID 27845 URIC ACID 5.2 MG/DL 03/12/2013 Unknown Procedures Procedure Codes Date PPPS, subseq visit CPT-4: G0439 01/12/2020 THER/PROPH/DIAG INJ SC/IM CPT-4: 50753 05/13/2019 TRIAMCINOLONE ACET INJ NOS CPT-4: J3301 05/13/2019 DEXAMETHASONE SODIUM PHOS CPT-4: J1100 05/13/2019 THER/PROPH/DIAG INJ SC/IM CPT-4: 30898 02/22/2019 TRIAMCINOLONE ACET INJ NOS CPT-4: J3301 02/22/2019 FLU VACC PRSV FREE INC ANTIG 65 AND OLDER CPT-4: 03614 04/21/2018 ADMIN INFLUENZA VIRUS VAC CPT-4: G0008 04/21/2018 PRESCRIP TRANSMIT VIA ERX SY CPT-4: G8553 04/21/2018 DESTRUCT PREMALG LESION (Cryosurgery) CPT-4: 95616 FLU VACC PRSV FREE INC ANTIG 65 AND OLDER CPT-4: 93990 04/22/2017 ADMIN INFLUENZA VIRUS VAC CPT-4: G0008 04/22/2017 PRESCRIP TRANSMIT VIA ERX SY CPT-4: G8553 10/10/2016 PRESCRIP TRANSMIT VIA ERX SY CPT-4: G8553 08/29/2015 ROUTINE VENIPUNCTURE CPT-4: 17328 07/26/2015 ASSAY OF FREE THYROXINE CPT-4: 21682 07/26/2015 ASSAY THYROID STIM HORMONE CPT-4: 80303 07/26/2015 COMPREHEN METABOLIC PANEL CPT-4: 91425 07/26/2015 COMPLETE CBC W/AUTO DIFF WBC CPT-4: 83031 07/26/2015 LIPID PANEL CPT-4: 90044 07/26/2015 ASSAY OF PSA TOTAL CPT-4: 91454 07/26/2015 A1C HPLC CPT-4: 72616 07/26/2015 ROUTINE VENIPUNCTURE CPT-4: 98339 01/17/2015 ASSAY OF FREE THYROXINE CPT-4: 39277 01/17/2015 ASSAY THYROID STIM HORMONE CPT-4: 12512 01/17/2015 COMPREHEN METABOLIC PANEL CPT-4: 27122 01/17/2015 COMPLETE CBC W/AUTO DIFF WBC CPT-4: 47965 01/17/2015 A1C HPLC CPT-4: 64908 01/17/2015 VITAMIN B-12 CPT-4: 80317 01/17/2015 PPPS, subseq visit CPT-4: G0439 08/04/2014 PRESCRIP TRANSMIT VIA ERX SY CPT-4: G8553 02/18/2014 FLUZONE, 5ML (Medicare) CPT-4: Q2038 07/22/2013 ADMIN INFLUENZA VIRUS VAC CPT-4: G0008 07/22/2013 PRESCRIP TRANSMIT VIA ERX SY CPT-4: G8553 04/28/2013 ROUTINE VENIPUNCTURE CPT-4: 70044 03/12/2013 VITAMIN D TOTAL (25 HYDROXY) CPT-4: 90581 03/12/2013 VITAMIN B 12 FOLIC ACID CPT-4: 41202|67439 03/12/2013 A1C GLYCOSYLATED HEMOGLOBIN TEST CPT-4: 33236 013 ASSAY OF BLOOD/URIC ACID CPT-4: 05094 03/12/2013 ASSAY OF FREE THYROXINE CPT-4: 84518 03/12/2013 ASSAY THYROID STIM HORMONE CPT-4: 74902 03/12/2013 CUR TOBACCO NON-USER CPT-4: G8457 03/11/2013 PRESCRIP TRANSMIT VIA ERX SY CPT-4: G8553 03/11/2013 Vital Signs Date Vital 01/12/2020 Blood Pressure 1: 126/84 Code: 8480-6 BMI: 37.5 Code: 10592-7 Heart Rate 1: 80 bpm Height: 5'9" [...] 1: 156/70 Code: 8480-6 BMI: 35.0 Code: 14362-3 Heart Rate 1: 68 bpm Height: 5'10" Respiratory Rate: 20 bpm SpO2: 95% Tempera ture: 36.5 (C) / 97.7 (F) Weight: 244 lbs 04/21/2018 Blood Pressure 1: 124/80 Code: 8480-6 BMI: 34.4 Code: 81106-1 Heart Rate 1: 80 bpm Height: 5'10" Respiratory Rate: 20 bpm SpO2: 96% Tempera ture: 37.0 (C) / 98.6 (F) Weight: 240 lbs 01/06/2018 Blood Pressure 1: 138/82 Code: 8480-6 BMI: 33.9 Code: 50507-3 Heart Rate 1: 96 bpm Height: 5'10" Respiratory Rate: 24 bpm SpO2: 98% Tempera ture: 35.9 (C) / 96.6 (F) Weight: 236 lbs 10/22/2017 Blood Pressure 1: 144/70 Code: 8480-6 BMI: 34.7 Code: 56186-0 Heart Rate 1: 72 bpm Height: 5'10" Respiratory Rate: 20 bpm SpO2: 96% Tempera ture: 36.9 (C) / 98.4 (F) Weight: 242 lbs 04/22/2017 Blood Pressure 1: 146/82 Code: 8480-6 BMI: 32.9 Code: 81786-8 Heart Rate 1: 104 bpm Height: 5'10" Respiratory Rate: 20 bpm SpO2: 95% Tempera ture: 36.9 (C) / 98.5 (F) Weight: 229 lbs 10/10/2016 Blood Pressure 1: 124/64 Code: 8480-6 BMI: 32.9 Code: 31774-1 Heart Rate 1: 64 bpm Height: 5'10" [...] 1: 146/90 Code: 8480-6 BMI: 34.1 Code: 86936-2 Heart Rate 1: 80 bpm Height: 5'10" Respiratory Rate: 20 bpm Temperature: 36 .8 (C) / 98.2 (F) Weight: 238 lbs 01/17/2015 Blood Pressure 1: 116/60 Code: 8480-6 BMI: 32.7 Code: 19113-3 Heart Rate 1: 84 bpm Height: 5'10" Respiratory Rate: 20 bpm Temperature: 36 .7 (C) / 98.0 (F) Weight: 228 lbs 09/29/2014 Blood Pressure 1: 136/78 Code: 8480-6 BMI: 33.9 Code: 39676-2 Heart Rate 1: 80 bpm Height: 5'10" Respiratory Rate: 20 bpm Temperature: 36 .6 (C) / 97.9 (F) Weight: 236 lbs 08/04/2014 Blood Pressure 1: 132/70 Code: 8480-6 BMI: 32.9 Code: 44107-1 Heart Rate 1: 72 bpm Height: 5'10" Respiratory Rate: 20 bpm Temperature: 36 .7 (C) / 98.0 (F) Weight: 229 lbs 02/18/2014 Blood Pressure 1: 124/82 Code: 8480-6 Heart Rate 1: 82 bpm Respiratory Rate: 18 bpm Temperature: 36.4 (C) / 97.5 (F) Weight: 232 lbs 07/29/2013 Blood Pressure 1: 146/80 Code: 8480-6 BMI: 34.1 Code: 85523-7 Heart Rate 1: 64 bpm Height: 5'10" Respiratory Rate: 20 bpm Temperature: 36 .9 (C) / 98.5 (F) Weight: 238 lbs 05/26/2013 Blood Pressure 1: 142/90 Code: 8480-6 BMI: 34.0 Code: 18101-9 Heart Rate 1: 84 bpm Height: 5'10" Respiratory Rate: 20 bpm Temperature: 36 .7 (C) / 98.0 (F) Weight: 237 lbs 04/28/2013 Blood Pressure 1: 118/78 Code: 8480-6 BMI: 32.9 Code: 77993-1 Heart Rate 1: 74 bpm Height: 5'10" Respiratory Rate: 20 bpm Temperature: 36 .1 (C) / 97.0 (F) Weight: 229 lbs 03/11/2013 Blood Pressure 1: 146/80 Code: 8480-6 BMI: 31.5 Code: 46155-0 Heart Rate 1: 80 bpm Height: 6' [...] recently gerardo ated by urgent care with zvarsha and levlexx follow up 07/22/2018 follow up 04/21/2018 follow [...] care Encounters Encounter Performer Location Codes Date () OFFICE/OUTPATIENT VISIT EST Diagnosis: Esophageal reflux[ICD10: K21.9] Diagnosis: History of bladder cancer[ICD10: Z85.51] Xiomara BETTENCOURT DO [facility] CPT-4: 03371 12/07/2019 ([id number]) OFFICE/OUTPATIENT VISIT EST Diagnosis: DM w/o complication type II, uncontrolled[ICD10: E11.65] Diagnosis: Other dyspnea and respiratory abnormality[ICD10: R06.09] Xiomara BETTENCOURT DO [facility] CPT-4: 54395 10/27/2019 ([id number]) OFFICE/OUTPATIENT VISIT EST Diagnosis: Chronic obstructive pulmonary disease, unspecified[ICD10: J44.9] Diagnosis: DM w/o complication type II, uncontrolled[ICD10: E11.65] Diagnosis: Edema[ICD10: R60.9] Xiomara BETTENCOURT DO [facility] CPT-4: 45162 10/20/2019 ([id number]) OFFICE/OUTPATIENT VISIT EST Diagnosis: Other dyspnea and respiratory abnormality[ICD10: R06.09] Diagnosis: Obstructive sleep apnea[ICD10: G47.33] Diagnosis: Hypotension[ICD10: I95.9] Xiomara Bettencourt [facility] CPT -4: 46719 10/12/2019 ([id number]) OFFICE/OUTPATIENT VISIT EST Diagnosis: Upper respiratory infection[ICD10: J06.9] Pennie MCGEENDER [facility] CPT-4: 65784 06/02/2019 ([id number]) OFFICE/OUTPATIENT VISIT EST Diagnosis: Sinusitis[ICD10: J32.9] Diagnosis: Allergic rhinitis[ICD10: J30.9] Pennie MCGEENDER [facility] CPT-4: 25127 05/13/2019 ([id number]) OFFICE/OUTPATIENT VISIT EST Diagnosis: Pneumonia[ICD10: J18.9] Pennie Akers. ARELYND ER [facility] CPT-4: 82964 04/26/2019 ([id number]) OFFICE/OUTPATIENT VISIT EST Diagnosis: Acute sinusitis, unspecified[ICD10: J01.90] Pennie MCGEENDER [facility] CPT-4: 19998 02/22/2019 ([id number]) OFFICE/OUTPATIENT VISIT EST Diagnosis: Cervicalgia[ICD10: M54.2] Xiomara MCGEE [facility] CPT-4: 61831 11/25/2018 ([id number]) OFFICE/OUTPATIENT VISIT EST Diagnosis: Acute sinusitis, unspecified[ICD10: J01.90] Diagnosis: Myalgia, unspecified site[ICD10: M79.10] Diagnosis: Cervicalgia[ICD10: M54.2] Xiomara [facility]ALLON [facility] CPT-4: 50085 11/19/2018 ([id number]) OFFICE/OUTPATIENT VISIT EST Diagnosis: Low back pain[ICD10: M54.5] Diagnosis: Essential (primary) hypertension[ICD10: I10] Diagnosis: 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, 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] Diagnosis: Paroxysmal atrial fibrillation[ICD10: I48.0] [facility] 789[facility] 07/22/2018 ([id number]) OFFICE/OUTPATIENT VISIT EST Diagnosis: Type 2 diabetes mellitus with diabetic neuropathy, unspecified[ICD10: E11.40] Diagnosis: Hyperlipidemia, unspecified[ICD10: E78.5] Diagnosis: Essential (primary) hypertension[ICD10: I10] Diagnosis: Chronic kidney disease, stage 1[ICD10: N18.1] Diagnosis: Benign prostatic hyperplasia with lower urinary tract symptoms[ICD10: N40.1] Diagnosis: FLU VACCINE[ICD10: Z23] Xiomara [facility] CPT-4: 92709 04/21/2018 OFFICE/OUTPATIENT VISIT EST Diagnosis: Type 2 diabetes mellitus with hyperglycemia[ICD10: E11.65] Diagnosis: Essential (primary) hypertension[ICD10: I10] Diagnosis: Mixed hyperlipidemia[ICD10: E78.2] Diagnosis: Other fatigue[ICD10: R53.83] [facility]PT[facility]: 52378 01/06/2018 ([id number]) OFFICE/OUTPATIENT VISIT EST Diagnosis: Type 2 diabetes mellitus with diabetic neuropathy, unspecified[ICD10: E11.40] Diagnosis: Essential (primary) hypertension[ICD10: I10] Diagnosis: Pain in right thigh[ICD10: M79.651] Diagnosis: Pain in left leg[ICD10: M79.605] Diagnosis: Localized swelling, mass and lump, left lower limb[ICD10: R22.42] Diagnosis: OSTEOARTHRISIS MULTI SITES[ICD10: M19.90] Diagnosis: FLU VACCINE[ICD10: Z23] Xiomara ROSENBAUM [employer] [facility] CPT-4: 90833 04/22/2017 ([id number]) OFFICE/OUTPATIENT VISIT EST Diagnosis: Essential (primary) hypertension[ICD10: I10] Diagnosis: Type 2 diabetes mellitus with hyperglycemia[ICD10: E11.65] Diagnosis: Angina pectoris, unspecified[ICD10: I20.9] Xiomara BETTENCOURT [employer] [facility] CPT-4: 80220 10/10/2016 ([id number]) OFFICE/OUTPATIENT VISIT EST Diagnosis: Cough[ICD10: R05] Diagnosis: Wheezing[ICD10: R06.2] Diagnosis: Chronic obstructive pulmonary disease, unspecified[ICD10: J44.9] Shannan MCBRIDE [employer] [facility] CPT-4: 30711 08/31/2015 OFFICE/OUTPATIENT VISIT EST Diagnosis: Acute bronchitis, unspecified[ICD10: J20.9] Diagnosis: Wheezing[ICD10: R06.2] Kelsie STOKES [employer] [facility] CPT-4: 56377 08/29/2015 ([id number]) OFFICE/OUTPATIENT VISIT EST Diagnosis: Type 2 diabetes mellitus with diabetic neuropathy, unspecified[ICD10: E11.40] Diagnosis: Hyperlipidemia, unspecified[ICD10: E78.5] Diagnosis: Essential (primary) hypertension[ICD10: I10] Diagnosis: Encounter for general adult medical examination without abnormal findings[ICD10: Z00.00] Xiomara BETTENCOURT [employer] [facility] CPT-4: 11282 07/26/2015 OFFICE/OUTPATIENT VISIT EST Diagnosis: Type 2 diabetes mellitus with hyperglycemia[ICD10: E11.65] Diagnosis: Unspecified osteoarthritis, unspecified site[ICD10: M19.90] Diagnosis: Other instability, right knee[ICD10: M25.361] Kelsie BETTENCOURT [employer] [facility] CPT-4: 58995 07/24/2015 ([id number]) OFFICE/OUTPATIENT VISIT EST Diagnosis: Pain in leg, unspecified[ICD10: M79.606] Diagnosis: Type 2 diabetes mellitus with diabetic neuropathy, unspecified[ICD10: E11.40] Xiomara BETTENCOURT [facility] CPT-4: 11254 05/01/2015 ([id number]) OFFICE/OUTPATIENT VISIT EST Diagnosis: MALAISE AND FATIGUE[ICD9: 780.79] Diagnosis: 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, 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] Diagnosis: CAD[ICD9: 414.00] Diagnosis: ANEMIA NOS[ICD9: 285.9] Xiomara [facility] CPT-4: 59071 01/17/2015 ([id number]) OFFICE/OUTPATIENT VISIT EST Diagnosis: Skin lesion[ICD9: 709.9] Xiomara [facility]NAO [facility] CPT-4: 89813 09/29/2014 OFFICE/OUTPATIENT VISIT EST Diagnosis: GASTROENTERITIS[ICD9: 558.9] Diagnosis: GERD[ICD9: 530.81] Kelsie VanChloeelaere [facility] CPT-[facility]: 04254 02/18/2014 ([id number]) OFFICE/OUTPATIENT VISIT EST Diagnosis: 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I, UNCONTROLLED[ICD9: 250.02] Xiomara BETTENCOURT [facility] CPT-4: 44153 07/29/2013 ([id number]) OFFICE/OUTPATIENT VISIT EST Diagnosis: FLU VACCINE[ICD9: V04.81] Xiomara MAGALLON [facility] CPT-4: 39403 07/22/2013 ([id number]) OFFICE/OUTPATIENT VISIT EST Diagnosis: 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I, UNCONTROLLED[ICD9: 250.02] Diagnosis: HYPERTENSION[ICD9: 401.9] Xiomara MAGALLON [facility] CPT-4: 34622 05/26/2013 ([id number]) OFFICE/OUTPATIENT VISIT EST Diagnosis: MONONEURITIS[ICD9: 355.9] Diagnosis: RESTLESS LEGS SYNDROME[ICD9: 333.94] Diagnosis: HYPERTENSION[ICD9: 401.9] Diagnosis: CAD[ICD9: 414.00] Diagnosis: Weakness[ICD9: 780.79] Xiomara Bettencourt XIOMARA Elvia STOKES [employer] CPT-4: 39482 04/28/2013 ([id number]) OFFICE/OUTPATIENT VISIT EST Diagnosis: 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[ICD9: 250.01] Diagnosis: MONONEURITIS[ICD9: 355.9] Diagnosis: HYPERLIPIDEMIA NEC/NOS[ICD9: 272.4] Diagnosis: CAD[ICD9: 414.00] Xiomara LARA Elvia BETTENCOURT [employer] CPT-4: 11734 03/12/2013 OFFICE/OUTPATIENT VISIT NEW Diagnosis: CAD[ICD9: 414.00] Diagnosis: HYPERLIPIDEMIA NEC/NOS[ICD9: 272.4] Diagnosis: HYPERTENSION[ICD9: 401.9] Diagnosis: Neuropathy[ICD9: 355.9] Diagnosis: RESTLESS LEGS SYNDROME[ICD9: 333.94] Xiomara RENAEQUE GASPER Elvia BETTENCOURT [employer] CPT-4: 07547 03/11/2013 Plan of Care Planned Activity Notes Codes Status Date Visit Diagnosis Plan: Encounter for [facility] adult medical examination without abnormal findings Discussion: Mediterranean diet Combinati on of cardio and weight bearing exercise Lab discussed ICD-9 : V70.0 ICD-10 : Z00.00 01/12/2020 Visit Diagnosis Plan: Esophageal reflux Discussion: DC Zantac Increase omeprazole to 20mg po BID ICD-9 : 530.81 ICD-10 : K21.9 01/12/2020 Visit Diagnosis Plan: Obstructive sleep apnea (adult) (pediatric) Discussion: Not able to tolerate CPAP ICD-9 : 327.23 ICD-10 : G47.33 01/12/2020 Visit Diagnosis Plan: Diabetes mellitus type 1, contro lled, insulin dependent Discussion: Lab discussed Accuchecks daily Continue current meds Check CMP and HbA1C in 3mos then fwup Recommend Diabetic Shoes Discussion: Lab discussed Accuchecks daily Continue current meds Check CMP and HbA1C in 3mos then fwup ICD-9 : 250.01 ICD-10 : E10.9 01/12/2020 Visit Diagnosis Plan: Allergic rhinitis Discussion: Ad martin toledo q PM routinely Told to start humidifying oxygen for nasal congestion ICD-9 : 477.9 ICD-10 : J30.9 01/12/2020 Appointment: Xiomara Bettencourt WPtel: [address] [place], [place] [phone] [place] Annual Well Visit 01/12/2020 Care Plan: US EXAM ABDO BACK WALL COMP renal US L OINC : 91755-0 Pending 12/08/2019 Visit Diagnosis Plan: History of bladder cancer Discus ajswinder: Check CT abdomen/pelvis ICD-9 : V10.51 ICD-10 : Z85.51 12/07/2019 Visit Diagnosis Plan: Esophageal reflux Discussion: Ranjeet rebolledo omeprazole daily Will try pancreatic enzymes ICD-9 : 530.81 ICD-10 : K21.9 12/07/2019 Appointment: Xiomara Bettencourt WPtel: [address] [place], [place] [phone] ACUTE ILLNESS 12/07/2019 Care Plan: CT PELVIS [...] : R06.09 10/27/2019 Appointment: Xiomara Bettencourt WPtel: [address] [place], [place] [phone] [place] FOLLOW UP 10/27/2019 Patient Education: [email or web address]- [employer] Coupon [phone] [email or web address] [email or web address]/[email or web address] Completed 10/27/2019 Visit Diagnosis Plan: DM w/o [...] : J44.9 10/20/2019 Appointment: Xiomara Bettencourt WPtel: [address] [place], [place] [phone] FOLLOW UP 10/20/2019 Patient Education: [email or web address]- [employer] Coupon [phone] [email or web address]/[email or web address] Completed 10/20/2019 Visit Diagnosis Plan: Obstructive sleep apnea Discussi on: Not able to tolerate CPAP ICD-9 : 327.23 ICD-10 : G47.33 10/12/2019 Visit Diagnosis Plan: Other dyspnea and respiratory ab normality Discussion: Increase symbicort 160/4.5 to 2 p BID Use albuterol 2p q4hrs prn as rescue inhaler Will notify us if not helping or worsening ICD-9 : 786.09 ICD-10 : R06.09 10/12/2019 Visit Diagnosis Plan: Hypotension Discussion: Saw Dr. Erickson today and he lowered lisinopril dose--discussed that the lower BP could be causing fatigue and shortness of air ICD-9 : 458.9 ICD-10 : I95.9 10/12/2019 Appointment: Xiomara Bettencourttel: [address] [place], [place] [phone] TELEMEDICINE 10/12/2019 Appointment: Xiomara Bettencourt WPtel: [address] [place], [place] [phone] [place] RESCHEDULED 09/23/2019 Care Plan: COMPREHEN METABOLIC PANEL SERGEI [place] : 54636-3 Pending 09/20/2019 Care Plan: LIPID PANEL LOINC : 01902-0 Pending 09/20/2019 Care Plan: A1C HPLC LOINC : 75862-3 Pending 09/20/2019 Care Plan: COMPLETE CBC W/AUTO DIFF WBC LOINC : 32796-7 Pending 09/20/2019 Visit Diagnosis Plan: Upper respiratory infection Disc ussion: discussed that most likely viral. push fluids and rest through the week. patient has left over levaquin at home (5 days worth). instructed patient to start taking if he gets worse later this week and to call us next week if no improvement. ICD-9 : 465.9 ICD-10 : J06.9 06/02/2019 Appointment: Pennie Pizarro [address] [place] [address] ACUTE ILLNESS 06/02/2019 Visit Diagnosis Plan: Allergic [...] ICD-10 : J30.9 05/13/2019 Appointment: Pennie Pizarro [address] [place] [address] ACUTE ILLNESS 05/13/2019 Appointment: Xiomara Bettencourt WPtel: [facility] US CANCELED 04/27/2019 Visit Diagnosis Plan: Pneumonia Discussion: will obtai n records from urgent care. instructed to finish out doxy. no rhonchi or crackles auscultated. symbicort sample given to patient with instructions to use bid. call office later this week with new or worsening symptoms. ICD-9 : 486 ICD-10 : J18.9 04/26/2019 Appointment: Pennie Pizarro [address] [place], [place] [phone] FOLLOW UP 04/26/2019 Visit Diagnosis Plan: Acute [...] : J01.90 02/22/2019 Appointment: Pennie Pizarro [address] ACUTE ILLNESS 02/22/2019 Patient Education: [email or web address]- [employer] Coupon [phone] [email or web address]/resources/getResource/[email or web address] Completed 02/22/2019 Visit Diagnosis Plan: Cervicalgia Discussion: Check Ce rvical Spine X-ray Will likely need PT ICD-9 : 723.1 ICD-10 : M54.2 11/25/2018 Appointment: Xiomara Bettencourt WPtel: [address] [place] [address] ACUTE ILLNESS 11/25/2018 Visit Plan: Saline nasal flushes prn. Ty lenol/Motrin prn headache. Notify if persists/symptoms worsening. 11/19/2018 Visit Diagnosis Plan: Cervicalgia Discussion: May [...] ICD-9 : 729.1 ICD-10 : M79.10 11/19/2018 Visit NOS Plan: Plan Notes: Saline nasal flu shes prn. Tyle... 11/19/2018 Appointment: Xiomara Bettencourt WPtel: [facility] [address] ACUTE ILLNESS 11/19/2018 Patient Education: [email or web address]- [employer] Coupon [phone] [email or web address]/[email or web address] Completed 11/19/2018 Visit Diagnosis Plan: Paroxysmal atrial fibrillation D [...] ICD-9 : 250.03 ICD-10 : E10.9 07/22/2018 Visit Diagnosis Plan: Essential (primary) hypertension Discussion: Stable ICD-9 : 401.9 ICD-10 : I10 07/22/2018 Appointment: [facility] Bettencourt [facility] [phone] [phone] [facility] 07/22/2018 Visit Diagnosis Plan: Chronic kidney disease, stage 1 Discussion: DC NSAIDs May use tylenol ICD-9 : 585.1 ICD-10 : N18.1 04/21/2018 Visit Diagnosis Plan: Hyperlipidemia, unspecified Disc [...] ICD-10 : E11.40 04/21/2018 Visit Diagnosis Plan: Benign prostatic h yperplasia with lower urinary tract symptoms Discussion: Trial of flomax Call in 1 mo [facility] on how doing Follow Up: 4 months ICD-9 : 600.21 ICD-10 : N40.1 04/21/2018 Appointment: Xiomara Bettencourt WPtel: [address] [place] [address] [place] FOLLOW UP 04/21/2018 Patient Education: Patient Medication Summary Completed 04/21/2018 Visit Diagnosis Plan: Essential (primary) hypertension Discussion: stable, continue current medications. ICD-9 : 401.9 ICD-10 : I10 01/06/2018 Visit Diagnosis Plan: Other fatigue Discussion: [...] ICD-9 : 250.02 ICD-10 : E11.65 01/06/2018 Visit Diagnosis Plan: Mixed hyperlipidemia Discussion: will review recent blood work and order additional if needed. ICD-9 : 272.2 ICD-10 : E78.2 01/06/2018 Appointment: Pennie Pizarro [address] [place] [address] [place] MEDICATION REVIEW 01/06/2018 Patient Education: Patient Medication Summary Completed 01/06/2018 Appointment: Xiomara Bettencourt WPtel: [address] [place], [place] [phone] [place] NO SHOW 01/05/2018 Appointment: Xiomara Bettencourt WPtel: [address] [place], [place] [phone] [place] CANCELED 12/31/2017 Visit Diagnosis Plan: Actinic keratosis Discussion: Cr yotherapy as above but will see derm if lesions do not resolve ICD-9 : 702.0 ICD-10 : L57.0 10/22/2017 Appointment: Xiomara Bettencourt [facility]Ptel: [phone] [id number] [facility] 10/22/2017 Patient Education: Patient Medication Summary Completed 10/22/2017 Visit Diagnosis Plan: Type 2 diabetes me llitus with diabetic neuropathy, unspecified Discussion: Lab discussed Continue curre nt meds Asked to bring in updated med list Accuchecks daily Flu shot given ICD-9 : 250.60 ICD-10 : E11.40 04/22/2017 Visit Diagnosis Plan: Essential (primary) hypertension Discussion: Slightly elevated today but is anxious about episode had last night ICD-9 : 401.9 ICD-10 : I10 04/22/2017 Visit Diagnosis Plan: OSTEOARTHRISIS MULTI SITES Discu ssion: Once again discussed that taking indomethacin with plavix and aspirin is not recommended and makes him high risk for bleeding ICD-9 : 715.98 ICD-10 : M19.90 04/22/2017 Visit Diagnosis Plan: Pain in right thigh Discussion: Check stat venous doppler due to recent surgery ICD-9 : 729.5 ICD-10 : M79.651 04/22/2017 Visit Diagnosis Plan: Pain in left leg Discussion: Angie ck stat venous doppler due to redness and warmth and recent left TKR--if negative needs to observe left leg for worsening redness and notify surgeon immediately of change ICD-9 : 729.5 ICD-10 : M79.605 04/22/2017 Appointment: Xiomara Bettencourt WPtel: [phone] [id number] FOLLOW UP 04/22/2017 Patient Education: Patient Medication Summary Completed 04/22/2017 Patient Education: Patient Medication Summary Completed 04/16/2017 Care Plan: COMPREHEN METABOLIC PANEL SERGEI NC : 00005-1 Pending 04/16/2017 Care Plan: LIPID PANEL LOINC : 84709-0 Pending 04/16/2017 Care Plan: CBC Pending 04/16/2017 Care Plan: A1C HPLC LOINC : 25240-6 Pending 04/16/2017 Referral: Inocencio Goodson WPtel[facility] [phone] [id number] [facility] Referral Appointment Confirmed 10/14/2016 Visit Diagnosis Plan: Type 2 diabetes mellitus with hy perglycemia Discussion: Continue toujeo Accuchecks BID Follow Up: 4 months ICD-9 : 250.02 ICD-10 : E11.65 10/10/2016 Visit Diagnosis Plan: Angina pectoris, unspecified Dis cussion: Continue imdur and see cardiology To ER if chest pain returns ICD-9 : 413.9 ICD-10 : I20.9 10/10/2016 Appointment: Xiomara Bettencourt WPtel: [address] [place], [place] [phone] FOLLOW UP 10/10/2016 Patient Education: Patient Medication Summary Completed 10/10/2016 Patient Education: Patient Medication Summary Completed 09/16/2016 Care Plan: COMPREHEN METABOLIC PANEL SERGEI NC : 31964-2 Pending 09/16/2016 Care Plan: ASSAY THYROID STIM HORMONE Pen ding 09/16/2016 Care Plan: ASSAY OF FREE THYROXINE Pendin g 09/16/2016 Care Plan: LIPID PANEL LOINC : 85818-8 Pending 09/16/2016 Care Plan: CBC Pending 09/16/2016 Care Plan: A1C HPLC LOINC : 05006-0 Pending 09/16/2016 Visit Plan: CXR now to further evaluate symptoms Suspect viral since he has been on 2 rounds of antibiotics If chronic lung disease evident, 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 given 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 with instructions on use Continue oral prednisone, would like to avoid injection if possible considering his DM status and he is stable right now Continue albuterol PRN Will call with CXR results 08/31/2015 Appointment: Shannan Grimes [address] [place], [place] [phone] 08/31 confirmed- SP ACUTE ILLNESS 08/31/2015 Patient Education: Patient Medication Summary Completed 08/31/2015 Visit Plan: Albuterol INH via SVN every 4 hours Prednisone 20 mg PO BID Notify for worsening symptoms 08/29/2015 Appointment: Kelsie Grubbs WPtel: [address] [place], [place] [phone] ACUTE ILLNESS 08/29/2015 Patient Education: Patient Medication Summary Completed 08/29/2015 Appointment: Xiomara Bettencourt WPtel: [phone] [place], [place] [id number] [place] LAB 07/26/2015 Patient Education: Patient Medication Summary Completed 07/26/2015 Visit Plan: Return in am for fasting lab s - CBC, CMP, TSH, Free T4, HgbA1C Change Levemir to Toujeo - Continue 35 Units q am - sample given Start physical Therapy for increased quadriceps strengthening and decreased pain in knees, bilaterally. 07/24/2015 Appointment: Kelsie Grubbs WPtel: [address] [place], [place] [phone] 07/21 appt confirmed cn FOLLOW UP 07/24/19 Appointment: Kelsie Grubbs WPtel: [address] [place], [place] [phone] FOLLOW UP 07/24/2015 Patient Education: Patient Medication [...] with insulin 05/01/2015 Appointment: Xiomara Bettencourt WPtel: [address] [place], [place] [phone] 04/28 confirmed~sl ACUTE ILLNESS 05/01/2015 Patient Education: Patient Medication Summary Completed 05/01/2015 Patient Education: Patient Medication Summary Completed 01/19/2015 Care Plan: URINALYSIS AUTO W/[place] SCOPE SERGEI [place] : 10829-2 Pending 01/19/2015 Visit Plan: I have went through his medi cations in past and stopped meds but he adjusts his meds on his own and has restarted some Stop Amaryl Once again discussed not using indomethacin routinely due to taking plavix and aspirin daily and fci use is dangerous Check CBC, CMP, TSH, free T4, B12 and HbA1C Patient has seen Cardiology recently but no cardiac cath done--had chemical stress test 01/17/2015 Appointment: Xiomara Bettencourt WPtel: [address] [place] [address] 01/16 [facility] ACUTE ILLNESS 01/17/2015 Patient Education: Patient Medication Summary Completed 01/17/2015 Visit Plan: See Dr. Garvin for removal 09/29/2014 Appointment: Xiomara Bettencourt WPtel: [address] [place] [address] ACUTE ILLNESS 09/29/2014 Referral: Colt Garvin WPtel: [address] [place] [address] Referral Initiated 09/29/2014 Patient Education: Patient Medication Summary Completed 09/29/2014 Visit Plan: Check CBC, CMP, TSH, free T4 , HbA1C, Lipids Accuchecks daily alternating times Patient has been adjusting own meds and has not taken any cholesterol meds for sometime Will check into surgery on right knee at [facility] [place] Check carotid dopplers 08/04/2014 Appointment: Xiomara Bettencourt WPtel: [address] [place] [address] Annual Well Visit 08/04/2014 Patient Education: Patient Medication Summary Completed 08/04/2014 Appointment: Kelsie Grubbs WPtel: [address] [place] [address] ACUTE ILLNESS 02/18/2014 Patient Education: Patient Medication Summary Completed 02/18/2014 Patient Education: [facility] - Saving AutoInj - 18+ - Dynamic Portal ID Completed 02/18/2014 Appointment: Xiomara Bettencourt WPtel: [address] [place] [address] [place] LAB 09/08/2013 Visit Plan: Check fasting lab in 1mo Con tinue Lantus and accuchecks at least BID 07/29/2013 Appointment: Xiomara Bettencourt WPtel: [address] [place] [address] FOLLOW UP 07/29/2013 Patient Education: Patient Medication Summary Completed 07/29/2013 Appointment: Xiomara Bettencourt WPtel: [address] [place], [place] [phone] [place] INJECTION 07/22/2013 Patient Education: Patient Medication Summary Completed 07/22/2013 Visit Plan: Pt has been self-adjusting m eds Stop metformin and amaryl Use Levemir 25u sc BID and call in 1wk with BS readings 05/26/2013 Appointment: Xiomara Bettencourt WPtel: [address] [place], [place] [phone] FOLLOW UP 05/26/2013 Patient Education: Patient Medication Summary Completed 05/26/2013 Visit Plan: DC Metformin Increase Lantus to 30u sc daily Change lisinopril to lisinopril HCT 20/25mg q AM Continue Gabapentin at current dose 04/28/2013 Appointment: Xiomara Bettencourt WPtel: [address] [place], [place] [phone] FOLLOW UP 04/28/2013 Patient Education: Patient Medication Summary Completed 04/28/2013 Appointment: Xiomara Bettencourt WPtel: [address] [place], [place] [phone] LAB 03/12/2013 Patient Education: Patient Medication Summary Completed 03/12/2013 Visit Plan: Trial of neurontin 400mg q H S Obtain most recent lab results Change levemir to lantus per pt request Pt goes for sleep study tonite 03/11/2013 Appointment: Xiomara Bettencourt WPtel: [address] [place], [place] [phone] 02/01paperwork mailed 03/10 confirmed with spouse NEW PATIENT 11/2012 Patient Education: Patient Medication Summary Completed 03/11/2013 Instructions Comment . Saline nasal flushes prn. Tylenol/Motr in prn headache. Notify if persists/symptoms worsening. . 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 Check fasting lab [...]
--- OUTSIDE RECORDS SUMMARY | 2020-02-02 21:30 | XMS REPORT | CCD ---
Author Author Sheng Bettencourt D.O. Organization [facility]ph[facility] Address [address] [place] [address] Phone Care Team Providers Care Associate Doctor Name Role Phone PP Unavailable CCM Unavailable Summary Purpose Interface Exchange Insurance Providers Payer name Policy type / Coverage type Covered republican ID Effective Begin Date Effective End Date WPS MEDICARE PART B [place] Medicare Part B [id number] 2018 Unknown [facility] Medicare Part B [id number] 2018 Un known Family history Mother Diagnosis Age At Onset Diabetes mellitus Type 2 Unknown Hypercholesterolemia Unknown Father Diagnosis Age At Onset No Family Disease Entered N/A Social History Social History Element Codes Description Effective Dates Marital status Unknown 03/11/2013 Number of children Unknown 4 03/11/2013 Employment Unknown Retired 03/11/[address]: 5264744 Former smoker 03/11/[address]: 086748 Currently drinks alc ohol Socially 03/11/2013 Has [...] Start Date Stop Date Status Fill Instructions Flonase Allergy Relief 50 mcg/actuation nasal spray,suspensi on RxNorm: 6159504 2 Ragland Nasal QPM 01/12/2020 05/11/2020 Active omeprazole 20 mg capsule,delayed release RxNorm: 909703 1 Capsule(s) Oral two times a day 01/12/2020 07/10/2020 Active simvastatin 20 mg tablet RxNorm: 989110 1 Tablet(s) Oral QD 020 04/02/2020 Active Needs updated fasting labs b efore 90 day refill Flomax 0.4 mg capsule RxNorm: 246688 TAKE TWO CAPSULES BY MOUTH EVERY EVENING 11/11/2019 No Stop Date Active glimepiride 2 mg tablet RxNorm: 522843 1 Tablet(s) Oral QD 10/27/19 20 No Stop Date Active gabapentin 400 mg capsule RxNorm: 674837 1 Capsule(s) Oral QPM 10/0604/24/2020 Active potassium chloride ER 20 mEq tablet,extended release RxNorm: 123947 1 Tablet(s) Oral QD to take with lasix 10/20/2019 10/26/2019 Inactive furosemide 40 mg tablet RxNorm: 085952 1 Tablet(s) Oral QAM for swelling 10/20/2019 10/26/2019 Inactive albuterol sulfate HFA 90 mcg/actuation aerosol inhaler RxNor m: 5275080 1-2 Puff(s) Inhalation as needed 10/12/2019 No Stop Date Active Zyrtec 10 mg tablet RxNorm: 9274018 1 Tablet(s) Oral QAM 10/12/2019 No Stop Date Active aspirin 81 mg tablet,delayed release RxNorm: 769930 1 Tablet(s) Oral QD 10/12/2019 No Stop Date Active Symbicort 160 mcg-4.5 mcg/actuation HFA aerosol inhaler RxNo rm: 2155026 2 Puff(s) Inhalation QD 10/12/2019 No Stop Date Active lisinopril 20 mg tablet RxNorm: 714880 1 Tablet(s) Oral QD 10/12/19 20 01/10/2020 Inactive simvastatin 20 mg tablet RxNorm: 158431 1 Tablet(s) Ora l QD Needs updated fasting labs 09/20/2019 01/02/2020 Inactive Needs updated fa sting labs before 90 day refill Flomax 0.4 mg capsule RxNorm: 317184 TAKE TWO CAPSULES BY MOUTH EVERY EVENING 08/03/2019 11/10/2019 Inactive gabapentin 400 mg capsule RxNorm: 341392 TAKE ONE CAPSU LE BY MOUTH EVERY EVENING 08/02/2019 10/26/2019 Inactive simvastatin 20 mg tablet RxNorm: 564711 1 Tablet(s) Ora l QD Needs updated fasting labs 07/21/2019 08/19/2019 Inactive Needs updated fa sting labs before 90 day refill simvastatin 20 mg tablet RxNorm: 644410 1 Tablet(s) Ora l QD Needs updated fasting labs 06/23/2019 07/20/2019 Inactive Needs updated fa sting labs before 90 day refill Flomax 0.4 mg capsule RxNorm: 387917 1 Capsule(s) Oral QD 05/13/2019 10/19/2019 Inactive Flomax 0.4 mg capsule RxNorm: 626659 TAKE TWO CAPSULES BY MOUTH EVERY EVENING 03/19/2019 05/12/2019 Inactive Augmentin 500 mg-125 mg tablet RxNorm: 786507 1 Tablet(s) PO BID 03/03/2019 Inactive baclofen 10 mg tablet RxNorm: 711740 TAKE ONE TABLET BY MOUTH EVERY NIGHT AT BEDTIME FOR PAIN OR SPASMS 01/14/2019 05/12/2019 Inactive Flomax 0.4 mg capsule RxNorm: 194688 TAKE TWO CAPSULES BY MOUTH EVERY EVENING 01/12/2019 03/18/2019 Inactive gabapentin 400 mg capsule RxNorm: 270722 1 Capsule(s) PO QPM 201806/27/2019 Inactive baclofen 10 mg tablet RxNorm: 933550 1 Tablet(s) PO QHS for my n/spasm 12/15/2018 01/13/2019 Inactive simvastatin 20 mg tablet RxNorm: 982150 TAKE ONE TABLET BY MOUT H DAILY 12/11/2018 06/22/2019 Inactive OneTouch Ultra Blue Test Strip RxNorm: Use 1 rigoberto t strip three times daily to check blood sugar (Dx:E11.65) 12/07/2018 No Stop Date Active gabapentin 400 mg capsule RxNorm: 965457 TAKE ONE CAPSU LE BY MOUTH EVERY EVENING 12/04/2018 12/29/2018 Inactive baclofen 10 mg tablet RxNorm: 523443 1 Tablet(s) PO QHS for my n/spasm 11/19/2018 12/15/2018 Inactive Flomax 0.4 mg capsule RxNorm: 469303 2 Capsule(s) PO QPM 09/15/2018 0 12/13/2018 Inactive WOULD LIKE 90DS!!! gabapentin 400 mg capsule RxNorm: 540731 TAKE ONE CAPSU LE BY MOUTH EVERY EVENING 07/21/2018 10/18/2018 Inactive simvastatin 20 mg tablet RxNorm: 659412 1 Tablet(s) PO QD 06/15/2018 12/10/2018 Inactive Flomax 0.4 mg capsule RxNorm: 736595 TAKE TWO CAPSULES BY MOUTH EVERY EVENING 06/02/2018 09/15/2018 Inactive WOULD LIKE 90DS!!! Flomax 0.4 mg capsule RxNorm: 618019 2 Capsule(s) PO QPM 04/21/2018 1 07/20/2017 Inactive simvastatin 20 mg tablet RxNorm: 294496 1 Tablet(s) PO QD Take 1 tablet by mouth daily. Patient due for labwork before further refill. 04/06/20182017 Inactive simvastatin 20 mg tablet RxNorm: 620990 Tablet(s) TAKE ONE TABLET BY MOUTH DAILY 03/25/2018 06/15/2018 Inactive simvastatin 20 mg tablet RxNorm: 631082 Tablet(s) TAKE ONE TABLET BY MOUTH DAILY due for appt 12/29/2017 03/25/2018 Inactive simvastatin 20 mg tablet RxNorm: 809211 TAKE ONE TABLET BY MOUT H DAILY 09/03/2017 12/29/2017 Inactive simvastatin 20 mg tablet RxNorm: 928440 1 Tablet(s) PO QD 10/22/2016 11/18/2018 Inactive isosorbide mononitrate ER 60 mg tablet,extended release 24 h r RxNorm: 857850 1 Tablet(s) PO QD 10/22/2016 04/21/2017 Inactive isosorbide mononitrate ER 60 mg tablet,extended release 24 h r RxNorm: 445687 1 Tablet(s) PO QD 10/10/2016 10/21/2016 Inactive simvastatin 20 mg tablet RxNorm: 924961 1 Tablet(s) PO QD 10/10/2016 10/21/2016 Inactive gabapentin 400 mg capsule RxNorm: 934636 1 Capsule(s) PO QPM 201609/20/2016 Inactive Toujeo SoloStar 300 unit/mL (1.5 mL) subcutaneous insulin pe n RxNorm: 8877562 35 Unit(s) SQ QAM 07/23/2016 07/22/2016 Inactive Toujeo SoloStar 300 unit/mL (1.5 mL) subcutaneous insulin pe n RxNorm: 6741735 40 Unit(s) SQ QAM 09/01/2015 No Stop Date Active Symbicort 160 mcg-4.5 mcg/actuation HFA aerosol inhaler RxNo rm: 6142578 2 Puff(s) INH BID 08/31/2015 09/09/2015 Inactive prednisone 20 mg tablet RxNorm: 221314 1 Tablet(s) PO BID 08/29/2015 09/02/2015 Inactive albuterol sulfate 2.5 mg/3 mL (0.083 %) solution for n ebulization RxNorm: 614326 1 Unit(s) INH Q4H as needed 08/29/2015 10/09/2016 Inactive levothyroxine 75 mcg tablet RxNorm: 212159 1 Tablet(s) PO QD 201507/27/2015 Inactive levothyroxine 75 mcg tablet RxNorm: 328072 1 Tablet(s) PO QD 201511/18/2018 Inactive levothyroxine 75 mcg tablet RxNorm: 667018 1 Tablet(s) PO QD 201507/27/2015 Inactive lisinopril 20 mg-hydrochlorothiazide 25 mg tablet RxNorm: 19 7887 TAKE ONE TABLET BY MOUTH EVERY MORNING. REPLACES PLAIN LISINOPRIL 03/06/2015 04/21/2017 Inactive lisinopril 20 mg-hydrochlorothiazide 25 mg tablet RxNorm: 19 7887 TAKE ONE TABLET BY MOUTH EVERY MORNING. REPLACES PLAIN LISINOPRIL 09/08/2014 03/05/2015 Inactive allopurinol 100 mg tablet RxNorm: 218880 1 Tablet(s) PO BID 015 10/09/2016 Inactive [SAVINGS FOR NON-COVERED [facility] -- BIN:[id number], PCN: [id number], Group: [id number], ID# [id number], Questions: . THIS IS NOT INSURANCE.] levothyroxine 50 mcg tablet RxNorm: 439081 1 Tablet(s) PO QD 201407/26/2015 Inactive [AttnRPh: Saving apply/adjud icate RxGRP:SG20 RxBIN:[id number] RxPCN: ID#:[id number]] Zegerid 40 mg-1.1 gram capsule RxNorm: 569510 1 Capsule(s) PO QD 03/03/2014 Inactive [AttnRPh: Saving apply/adjud icate RxGRP:SG20 RxBIN:[id number] RxPCN:HT ID#:[id number]] ondansetron 8 mg disintegrating tablet RxNorm: 662015 1 Tablet(s) PO Q8H as needed for [...] 07/28/2013 Inactive gabapentin 400 mg capsule RxNorm: 120627 1 Capsule(s) PO QPM 201207/28/2013 Inactive gabapentin 400 mg capsule RxNorm: 027320 1 Capsule(s) PO QPM 201206/26/2013 Inactive lisinopril 20 mg-hydrochlorothiazide 25 mg tablet RxNorm: 82 3971 1 Tablet(s) PO QAM replaces plain lisinopril 04/28/2013 07/29/2013 Inactive gabapentin 400 mg capsule RxNorm: 219749 1 Capsule(s) PO QPM 201204/27/2013 Inactive gabapentin 400 mg capsule RxNorm: 367859 1 Capsule(s) PO QPM 201203/10/2013 Inactive gabapentin 400 mg capsule RxNorm: 160034 1 Capsule(s) PO QPM 201203/14/2013 Inactive Lantus Solostar 100 unit/mL (3 mL) Sub-Q Insulin Pen RxNorm: 413717 20 Unit(s) SQ QPM 03/11/2013 03/15/2013 Inactive Toujeo SoloStar 300 unit/mL (1.5 mL) subcutaneous insulin pe n RxNorm: 8910149 35 Unit(s) SQ QAM No Start Date Active isosorbide mononitrate ER 60 mg tablet,extended release 24 h r RxNorm: 891552 1 Tablet(s) PO QD No Start Date Active Eliquis 5 mg tablet RxNorm: 7256688 1 Tablet(s) PO BID No Start Date Active metformin 500 mg tablet RxNorm: 639492 1 Tablet(s) PO BID No Start Da te Active levothyroxine 50 mcg tablet RxNorm: 707723 1 Tablet(s) PO QD No Start Date Active Norvasc 10 mg tablet RxNorm: 926611 1 Tablet(s) PO QHS No Start Date Active Toujeo SoloStar 300 unit/mL (1.5 mL) subcutaneous insulin pe n RxNorm: 7832510 30 Unit(s) SQ QAM No Start Date Active glimepiride 4 mg tablet RxNorm: 502756 1 Tablet(s) PO QHS No Start Date 07/26/2015 Inactive omeprazole 20 mg capsule,delayed release RxNorm: 398952 1 Capsu le(s) PO QD No Start Date 01/11/2020 Inactive allopurinol 100 mg tablet RxNorm: 616119 1 Tablet(s) PO BID No Star t Date 08/10/2014 Inactive Lantus Solostar 100 unit/mL (3 mL) subcutaneous insulin pen RxNorm: 023866 30 Unit(s) SQ QD No Start Date 08/03/2014 Inactive Levemir FlexTouch 100 unit/mL (3 mL) subcutaneous insulin pe n RxNorm: 039520 25 Unit(s) SQ QAM No Start Date 07/23/2015 Inactive Lantus 100 unit/mL Sub-Q RxNorm: 943684 30 Unit(s) SQ QHS No Start Date 05/25/2013 Inactive Lantus Solostar 100 unit/mL (3 mL) Sub-Q Insulin Pen RxNorm: 069530 20 Unit(s) SQ QPM No Start Date 03/10/2013 Inactive OneTouch Ultra Blue Test Strip RxNorm: Use 1 rigoberto t strip three times daily to check blood sugar (Dx:E11.65) No Start Date 12/06/2018 Inactive Levemir FlexTouch 100 unit/mL (3 mL) subcutaneous insulin pe n RxNorm: 232845 30- 35 Unit(s) SQ QAM No Start Date 07/23/2015 Inactive Levemir Flexpen 100 unit/mL (3 mL) solution subcutaneo us insulin pen RxNorm: 291162 20-25 Unit(s) SQ QD No Start Date 07/28/2013 Inactive lisinopril 20 mg tablet RxNorm: 206792 1 Tablet(s) PO QD No Start D ate 10/11/2019 Inactive indomethacin ER 75 mg capsule,extended release RxNorm: 12062 2 1 Capsule(s) PO QAM No Start Date 04/27/2013 Inactive indomethacin ER 75 mg capsule,extended release RxNorm: 92114 2 1 Capsule(s) PO QD No Start Date 01/16/2015 Inactive Chlortab-4 oral RxNorm: 363403 oral No Start Date 10/11/2019 Inac tive Vitamin D3 5,000 unit tablet RxNorm: 419035 1 Tablet(s) PO QD No St art Date 08/03/2014 Inactive Levemir Flexpen 100 unit/mL (3 mL) solution subcutaneo us insulin Pen RxNorm: 953766 20 Unit(s) SQ QHS No Start Date 03/10/2013 Inactive Vytorin 10 mg-40 mg tablet RxNorm: 6897890 1/2 Tablet(s) PO QD No S tart Date 04/20/2018 Inactive oxymetazoline-menthol 0.05 % nasal spray RxNorm: 8739686 Ragland N COTY No Start Date 10/11/2019 Inactive Patient states he ta kes every 10 hours Toujeo SoloStar 300 unit/mL (1.5 mL) subcutaneous insulin pe n RxNorm: 9418659 35 Unit(s) SQ QAM No Start Date 07/22/2016 Inactive Lantus Solostar 100 unit/mL (3 mL) subcutaneous insulin pen RxNorm: 536563 20 Unit(s) SQ QD No Start Date 08/03/2014 Inactive aspirin 81 mg tablet RxNorm: 826228 1 Tablet(s) PO QD No Start Date 0 08/03/2014 Inactive metformin 500 mg tablet RxNorm: 209375 1 Tablet(s) PO BID No Start Date 07/28/2013 Inactive glimepiride 4 mg tablet RxNorm: 050044 1 Tablet(s) PO BID No Start Date 01/16/2015 Inactive glimepiride 4 mg tablet RxNorm: 759849 1 Tablet(s) PO QD No Start D ate 08/03/2014 Inactive levothyroxine 25 mcg tablet RxNorm: 000364 1 Tablet(s) PO QD No Sta rt Date 08/10/2014 Inactive doxycycline oral RxNorm: 68471 oral No Start Date 05/12/2019 Inac tive aspirin 81 mg tablet RxNorm: 943366 1 Tablet(s) PO QD No Start Date 0 07/21/2018 Inactive isosorbide mononitrate ER 60 mg tablet,extended release 24 h r RxNorm: 551779 1 Tablet(s) PO BID No Start Date 01/16/2015 Inactive metformin 500 mg tablet RxNorm: 481358 1 Tablet(s) PO BID No Start Date 04/27/2013 Inactive Plavix 75 mg tablet RxNorm: 294345 1 Tablet(s) PO QD No Start Date Inactive glimepiride 4 mg tablet RxNorm: 935211 1 Tablet(s) PO QPM No Start Date 02/21/2019 Inactive Vytorin 10-40 10 mg-40 mg tablet RxNorm: 7976565 1 Tablet(s) PO QHS No Start Date 08/03/2014 Inactive indomethacin 50 mg capsule RxNorm: 132597 1 Capsule(s) PO QHS No St art Date 01/16/2015 Inactive glimepiride 4 mg tablet RxNorm: 875670 1 Tablet(s) PO BID No Start Date 07/28/2013 Inactive Levemir FlexTouch 100 unit/mL (3 mL) subcutaneous insulin pe n RxNorm: 508833 20 Unit(s) SQ QD No Start Date 04/30/2015 Inactive lisinopril 20 mg tablet RxNorm: 049740 1 Tablet(s) PO BID No Start Date 04/27/2013 Inactive Lantus Solostar SubQ RxNorm: Subcutaneous No Start Date 03/15/2013 I nactive Zantac 150 mg tablet RxNorm: 461212 1 Tablet(s) PO QHS No Start Date 10/11/2019 Inactive allopurinol 300 mg tablet RxNorm: 019204 1 Tablet(s) PO QD No Start Date 08/03/2014 Inactive Fish Oil 1,000 mg capsule RxNorm: 1 Capsule(s) PO QD No Start Date 02/21/2019 Inactive indomethacin 50 mg capsule RxNorm: 155381 1 Capsule(s) PO BID No St art Date 04/20/2018 Inactive levothyroxine 50 mcg tablet RxNorm: 642832 1 Tablet(s) PO QD No Sta rt Date 08/10/2014 Inactive glimepiride 4 mg tablet RxNorm: 697105 1 Tablet(s) PO BID No Start Date 03/15/2013 Inactive indomethacin 50 mg capsule RxNorm: 397711 1 Capsule(s) PO QHS No St art Date 04/27/2013 Inactive Medication Administered No Medication Administered data Immunizations Vaccine Codes Date Status Influenza CVX: 135 04/21/2018 Complete Influenza CVX: 135 04/22/2017 Complete Results Observation Observation Code Item Item Code Result Date S ervice Location [facility] 39443 Cholesterol 209 mg/dL 09/17/2016 Unkno wn [facility] 06722 Triglyceride 111 mg/dL 09/17/2016 Unkn own [facility] 37719 HDL CHOLESTEROL 50 mg/dL 09/17/2016 U nknown [facility] 22343 Chol/HDL Ratio 4.18 ratio 09/17/2016 U nknown [facility] 73043 NON-HDL Chol 159 mg/dL 09/17/2016 Unkn own [facility] 69022 LDL Cholesterol 137 mg/dL 09/17/2016 U nknown MEAN GLUC 8715132 Calc Mean Gluc 151 mg/dL 09/17/2016 Unkn own COMPREHENSIVE METABOLIC 64041 AST 23 U/L 2016 Unknown COMPREHENS[facility] METABOLIC 88914 ALT 19 U/L 2016 Unknown [facility] 22667 BUN 15 mg/dL 2016 Unknown COMPREHENS[facility] MET[facility]OLIC 68356 ALBUMIN 4.3 g/dL 2016 Unknown COMPREHENSIVE METABOLIC 31731 CHLORIDE 103 mmol/L 09/17 Unknown COMPREHENSIVE METABOLIC 90213 Bili Total 0.6 mg/dL 09/17 Unknown COMPREHENSIVE METABOLIC 07911 ALK PHOS 60 U/L 2016 Unknown COMPREHENSIVE METABOLIC 33748 SODIUM 140 mmol/L 09/17 Unknown COMPREHENSIVE METABOLIC 28729 CREATININE 1.03 mg/dL 09/04 Unknown COMPREHENSIVE METABOLIC 27448 CALCIUM 9.5 mg/dL 2016 Unknown COMPREHENSIVE METABOLIC 52178 POTASSIUM 3.9 mmol/L 09/17 Unknown COMPREHENSIVE METABOLIC 89992 Total Protein 6.9 g/dL Unknown COMPREHENSIVE METABOLIC 86870 Glucose 94 mg/dL 2016 Unknown COMPREHENSIVE METABOLIC 72330 Bicarbonate 28 mmol/L 09/04 Unknown COMPREHENSIVE METABOLIC 00778 AGAP 9 mmol/L 2016 Unknown GFR CALC 8007495 GFR Non Afr Amr >60 mL/min 09/17/2016 Un known GFR CALC 4353563 GFR Afr Amr >60 mL/min 09/17/2016 Unknow n THYROID STIMULATING HORMONE 32000 TSH 4.260 uIU/mL 09/17/2016 Unknown GLYCOSYLATED HEMOGLOBIN TEST 46698 Hgb A1c 20889-4 6.9 % 0 09/17/2016 Unknown FREE T4 97883 T4 Free 1.02 ng/dL 09/17/2016 Unknown COMPLETE BLOOD COUNT [id number] WBC 8.6 10e9/L 07/26/19 16 Unknown COMPLETE BLOOD COUNT [id number] RBC 4.86 10e12/L 2015 Unknown COMPLETE BLOOD COUNT 8530565 HGB 14.6 g/dL 6 Unknown COMPLETE BLOOD COUNT 6107509 HCT DET 43.1 % 6 Unknown COMPLETE BLOOD COUNT 8811835 MCV 88.7 fL 6 Unknown COMPLETE BLOOD COUNT 1643250 MCH 30.0 pg 6 Unknown COMPLETE BLOOD COUNT 4156074 MCHC 33.9 g/dL 6 Unknown COMPLETE BLOOD COUNT 4067383 PLT 267 10e9/L 07/26/19 16 Unknown COMPLETE BLOOD COUNT 2782128 MPV 11.5 fL 6 Unknown COMPLETE BLOOD COUNT 4073283 SAM % 64.8 % 6 Unknown COMPLETE BLOOD COUNT 4722084 LY % 16.8 % 6 Unknown COMPLETE BLOOD COUNT 2849128 MON % 12.5 % 6 Unknown COMPLETE BLOOD COUNT 4610485 EOS % 5.6 % 6 Unknown COMPLETE BLOOD COUNT 2651980 BASO % 0.3 % 6 Unknown COMPLETE BLOOD COUNT 8347581 RDW 13.4 % 6 Unknown COMPLETE BLOOD COUNT [id number] ABS SAM 5.57 10e9/L 016 Unknown COMPLETE BLOOD COUNT 9115766 ABS LYMPH 1.44 10e9/L 016 Unknown COMPLETE BLOOD COUNT [id number] ABS MONO 1.08 10e9/L 016 Unknown COMPLETE BLOOD COUNT 0779607 ABS EOS 0.48 10e9/L 016 Unknown COMPLETE BLOOD COUNT [id number] ABS BASO 0.03 10e9/L 016 Unknown COMPLETE BLOOD COUNT 9023778 RDW-SD 42.9 fL 6 Unknown PSA EQUIMOLAR MATT 64268 PSA EQ 0.78 NG/ML 6 Unknown THYROID STIMULATING HORMONE 27181 TSH 5.292 uIU/ML 07/26/2015 Unknown GLYCOSYLATED HEMOGLOBIN TEST 11805 A1C HPLC 73417-8 7.0 % 0 07/26/2015 Unknown GFR CALC 3078508 GFR AA >60 ML/MIN 07/26/2015 Unknown GFR CALC 8814225 GFR NON-AA >60 ML/MIN 07/26/2015 Unknown [facility] 82578 HDL TEST 64 MG/DL 07/26/2015 Unknown [facility] 65827 TRIG 58 MG/DL 07/26/2015 Unknown [facility] 86091 TEST LDL 49 MG/DL 07/26/2015 Unknown [facility] 64396 CHOL 125 MG/DL 07/26/2015 Unknown [facility] 79053 RCHOL/HDL 1.95 RATIO 07/26/2015 Unknow n [facility] 90876 NON-HDL CH 61 MG/DL 07/26/2015 Unknow n COMPREHENSIVE METABOLIC 38466 AST 25 U/L 2015 Unknown COMPREHENSIVE METABOLIC 62498 ALT 23 IU/L 2015 Unknown COMPREHENSIVE METABOLIC 71108 BUN 18 MG/DL 2015 Unknown COMPREHENSIVE METABOLIC 84720 ALBUMIN 4.6 GM/DL 2015 Unknown COMPREHENSIVE METABOLIC 42219 CHLORIDE 100 MMOL/L 07/26 Unknown COMPREHENSIVE METABOLIC 61465 BILI TOT 0.5 MG/DL 2015 Unknown COMPREHENSIVE METABOLIC 90917 ALK PHOS 49 U/L 2015 Unknown COMPREHENSIVE METABOLIC 99492 SODIUM 137 MMOL/L 07/26 Unknown COMPREHENSIVE METABOLIC 28139 CREATININE 1.06 MG/DL 07/08 Unknown COMPREHENSIVE METABOLIC 85124 CALCIUM 9.5 MG/DL 2015 Unknown COMPREHENSIVE METABOLIC 38272 POTASSIUM 4.5 MMOL/L 07/26 Unknown COMPREHENSIVE METABOLIC 36223 PROT TOT 6.5 GM/DL 2015 Unknown COMPREHENSIVE METABOLIC 57778 Glucose 109 MG/DL 2015 Unknown COMPREHENSIVE METABOLIC 98823 BICARB 29 MMOL/L 2015 Unknown COMPREHENSIVE METABOLIC 06571 ANION GAP 8 MEQ/L 2015 Unknown FREE T4 49456 FREE T4 1.11 NG/DL 07/26/2015 Unknown CULTURE & SENSITIVITY 30856 PROTEIN UR NEG 015 Unknown [facility] SENSITIVITY 18099 HEMGLBN UR TR 015 Unknown CULTURE & SENSITIVITY 14205 GLUCOSE UR NEG 015 Unknown [facility]URE [facility] SENSITIVITY 85796 KETONES UR NEG 015 Unknown CULTURE & SENSITIVITY 94727 PH U 6.5 01/25/20 15 Unknown CULTURE & SENSITIVITY 79057 SP GR U 1.013 01/25/20 15 Unknown CULTURE & SENSITIVITY 89151 BILRUBN UR NEG 015 Unknown CULTURE & SENSITIVITY 19764 LEUKO UR NEG 01/25/20 15 Unknown CULTURE & SENSITIVITY 48356 NITRITE UR NEG 015 Unknown MICR CUL? [id number] SP TO JOHANA? NO 01/24/2015 Unknown MICR CUL? 1105116 APPEAR UR NORMAL 01/24/2015 Unknown MICR CUL? 9779572 RBC/uL 2.2 01/24/2015 Unknown MICR CUL? 5107367 WBC/uL 2.8 01/24/2015 Unknown MICR CUL? 0536137 SQ EPI/uL 1.0 01/24/2015 Unknown MICR CUL? 0221353 HYALCST/uL 0.25 01/24/2015 Unknown MICR CUL? 9749035 WBC /HPF 1 01/24/2015 Unknown MICR CUL? 8938032 RBC /HPF 0 01/24/2015 Unknown GLYCOSYLATED HEMOGLOBIN TEST 33500 A1C HPLC 89625-5 6.6 % 0 01/17/2015 Unknown COMPLETE BLOOD COUNT 7310906 WBC 10.1 10e9/L 015 Unknown COMPLETE BLOOD COUNT 6558497 RBC 4.60 10e12/L 2014 Unknown COMPLETE BLOOD COUNT 6438268 HGB 14.0 g/dL 5 Unknown COMPLETE BLOOD COUNT 7329700 HCT DET 39.9 % 5 Unknown COMPLETE BLOOD COUNT 6648194 MCV 86.7 fL 5 Unknown COMPLETE BLOOD COUNT 9879122 MCH 30.4 pg 5 Unknown COMPLETE BLOOD COUNT 8789908 MCHC 35.1 g/dL 5 Unknown COMPLETE BLOOD COUNT 8945130 PLT 252 10e9/L 01/18/20 15 Unknown COMPLETE BLOOD COUNT 6000306 MPV 11.4 fL 5 Unknown COMPLETE BLOOD COUNT 2647348 SAM % 72.9 % 5 Unknown COMPLETE BLOOD COUNT 1620706 LY % 13.6 % 5 Unknown COMPLETE BLOOD COUNT 7506240 MON % 10.2 % 5 Unknown COMPLETE BLOOD COUNT 6858071 EOS % 3.1 % 5 Unknown COMPLETE BLOOD COUNT 0984093 BASO % 0.2 % 5 Unknown COMPLETE BLOOD COUNT 6826421 RDW 13.6 % 5 Unknown COMPLETE BLOOD COUNT 5343369 ABS SAM 7.36 10e9/L 015 Unknown COMPLETE BLOOD COUNT 1792854 ABS LYMPH 1.37 10e9/L 015 Unknown COMPLETE BLOOD COUNT 9654275 ABS MONO 1.03 10e9/L 015 Unknown COMPLETE BLOOD COUNT 1372430 ABS EOS 0.31 10e9/L 015 Unknown COMPLETE BLOOD COUNT 2218818 ABS BASO 0.02 10e9/L 015 Unknown COMPLETE BLOOD COUNT 9271049 RDW-SD 42.4 fL 5 Unknown GFR CALC 4703440 GFR AA 51.0L ML/MIN 01/17/2015 Unknow n GFR CALC 2045484 GFR NON-AA 42.0L ML/MIN 01/17/2015 Unkno wn FREE T4 33002 FREE T4 1.30 NG/DL 01/17/2015 Unknown THYROID STIMULATING HORMONE 72641 TSH 4.029 uIU/ML 01/17/2015 Unknown COMPREHENSIVE METABOLIC 89342 AST 28 U/L 2014 Unknown COMPREHENSIVE METABOLIC 14617 ALT 25 IU/L 2014 Unknown COMPREHENSIVE METABOLIC 49092 BUN 21 MG/DL 2014 Unknown COMPREHENSIVE METABOLIC 17693 ALBUMIN 4.7 GM/DL 2014 Unknown COMPREHENSIVE METABOLIC 58328 CHLORIDE 102 MMOL/L 01/17 Unknown COMPREHENSIVE METABOLIC 41306 BILI TOT 0.6 MG/DL 2014 Unknown COMPREHENSIVE METABOLIC 48810 ALK PHOS 44 U/L 2014 Unknown COMPREHENSIVE METABOLIC 48794 SODIUM 137 MMOL/L 01/17 Unknown COMPREHENSIVE METABOLIC 98812 CREATININE 1.62 MG/DL 01/04 Unknown COMPREHENSIVE METABOLIC 61037 CALCIUM 9.7 MG/DL 2014 Unknown COMPREHENSIVE METABOLIC 42600 POTASSIUM 4.5 MMOL/L 01/17 Unknown COMPREHENSIVE METABOLIC 11810 PROT TOT 6.5 GM/DL 2014 Unknown COMPREHENSIVE METABOLIC 20049 Glucose 136 MG/DL 2014 Unknown COMPREHENSIVE METABOLIC 63405 BICARB 24 MMOL/L 2014 Unknown COMPREHENSIVE METABOLIC 47170 ANION GAP 11 MEQ/L 2014 Unknown VITAMIN B 12 25616 VIT B 12 482 PG/ML 01/17/2015 Unknow n URIC ACID 13841 URIC ACID 8.5 MG/DL 08/09/2014 Unknown COMPREHENSIVE METABOLIC 01401 AST 27 U/L 2014 Unknown COMPREHENSIVE METABOLIC 87176 ALT 26 IU/L 2014 Unknown COMPREHENSIVE METABOLIC 23484 BUN 17 MG/DL 2014 Unknown COMPREHENSIVE METABOLIC 24058 ALBUMIN 5.0 GM/DL 2014 Unknown COMPREHENSIVE METABOLIC 00337 CHLORIDE 101 MMOL/L 08/09 Unknown COMPREHENSIVE METABOLIC 56401 BILI TOT 0.7 MG/DL 2014 Unknown COMPREHENSIVE METABOLIC 77392 ALK PHOS 53 U/L 2014 Unknown COMPREHENSIVE METABOLIC 27361 SODIUM 136 MMOL/L 08/09 Unknown COMPREHENSIVE METABOLIC 84676 CREATININE 1.14 MG/DL 09/2014 Unknown COMPREHENSIVE METABOLIC 92822 CALCIUM 9.8 MG/DL 2014 Unknown COMPREHENSIVE METABOLIC 08876 POTASSIUM 4.1 MMOL/L 08/09 Unknown COMPREHENSIVE METABOLIC 64184 PROT TOT 7.5 GM/DL 2014 Unknown COMPREHENSIVE METABOLIC 19666 Glucose 110 MG/DL 2014 Unknown COMPREHENSIVE METABOLIC 68963 BICARB 30 MMOL/L 2014 Unknown COMPREHENSIVE METABOLIC 42588 ANION GAP 5 MEQ/L 2014 Unknown GFR CALC 1273403 GFR AA >60 ML/MIN 08/09/2014 Unknown GFR CALC 7134826 GFR NON-AA >60 ML/MIN 08/09/2014 Unknown FREE T4 44563 FREE T4 1.14 NG/DL 08/09/2014 Unknown GLYCOSYLATED HEMOGLOBIN TEST 49110 A1C HPLC 71693-8 6.8 % 0 08/09/2014 Unknown COMPLETE BLOOD COUNT 7852284 WBC 5.9 10e9/L 08/09/19 15 Unknown COMPLETE BLOOD COUNT 2538776 RBC 5.04 10e12/L 2014 Unknown COMPLETE BLOOD COUNT 3027483 HGB 15.2 g/dL 5 Unknown COMPLETE BLOOD COUNT 3864756 HCT DET 44.3 % 5 Unknown COMPLETE BLOOD COUNT 8681524 MCV 87.9 fL 5 Unknown COMPLETE BLOOD COUNT 7555799 MCH 30.2 pg 5 Unknown COMPLETE BLOOD COUNT 2696243 MCHC 34.3 g/dL 5 Unknown COMPLETE BLOOD COUNT 0909171 PLT 262 10e9/L 08/09/19 15 Unknown COMPLETE BLOOD COUNT 2093324 MPV 10.9 fL 5 Unknown COMPLETE BLOOD COUNT 7191494 SAM % 58.7 % 5 Unknown COMPLETE BLOOD COUNT 2259219 LY % 21.5 % 5 Unknown COMPLETE BLOOD COUNT 7403985 MON % 14.0 % 5 Unknown COMPLETE BLOOD COUNT 8753729 EOS % 5.3 % 5 Unknown COMPLETE BLOOD COUNT 4891918 BASO % 0.5 % 5 Unknown COMPLETE BLOOD COUNT 0805851 RDW 13.1 % 5 Unknown COMPLETE BLOOD COUNT 4990416 ABS SAM 3.46 10e9/L 015 Unknown COMPLETE BLOOD COUNT [id number] ABS LYMPH 1.27 10e9/L 015 Unknown COMPLETE BLOOD COUNT [id number] ABS MONO 0.83 10e9/L 015 Unknown COMPLETE BLOOD COUNT [id number] ABS EOS 0.31 10e9/L 015 Unknown COMPLETE BLOOD COUNT [id number] ABS BASO 0.03 10e9/L 015 Unknown COMPLETE BLOOD COUNT [id number] RDW-SD 41.2 fL 5 Unknown THYROID STIMULATING HORMONE 40422 TSH 5.395 uIU/ML 08/09/2014 Unknown LIPID GROUP 58882 HDL TEST 52 MG/DL 08/09/2014 Unknown LIPID GROUP 83476 TRIG 113 MG/DL 08/09/2014 Unknown LIPID GROUP 59914 TEST LDL 158 MG/DL 08/09/2014 Unknown LIPID GROUP 19505 CHOL 233 MG/DL 08/09/2014 Unknown LIPID GROUP 46816 RCHOL/HDL 4.48 RATIO 08/09/2014 Unknow n LIPID GROUP 02811 NON-HDL CH 181 MG/DL 08/09/2014 Unknow n COMPLETE BLOOD COUNT [id number] WBC 6.8 10e9/L 09/09/19 14 Unknown COMPLETE BLOOD COUNT [id number] RBC 5.18 10e12/L 2013 Unknown COMPLETE BLOOD COUNT [id number] HGB 15.2 g/dL 4 Unknown COMPLETE BLOOD COUNT [id number] HCT DET 44.7 % 4 Unknown COMPLETE BLOOD COUNT [id number] MCV 86.3 fL 4 Unknown COMPLETE BLOOD COUNT [id number] MCH 29.3 pg 4 Unknown COMPLETE BLOOD COUNT [id number] MCHC 34.0 g/dL 4 Unknown COMPLETE BLOOD COUNT [id number] PLT 236 10e9/L 09/09/19 14 Unknown COMPLETE BLOOD COUNT [id number] MPV 11.0 fL 4 Unknown COMPLETE BLOOD COUNT [id number] SAM % 58.2 % 4 Unknown COMPLETE BLOOD COUNT [id number] LY % 21.9 % 4 Unknown COMPLETE BLOOD COUNT [id number] MON % 12.5 % 4 Unknown COMPLETE BLOOD COUNT [id number] EOS % 7.3 % 4 Unknown COMPLETE BLOOD COUNT [id number] BASO % 0.1 % 4 Unknown COMPLETE BLOOD COUNT [id number] RDW 13.6 % 4 Unknown COMPLETE BLOOD COUNT [id number] ABS SAM 3.96 10e9/L 014 Unknown COMPLETE BLOOD COUNT [id number] ABS LYMPH 1.49 10e9/L 014 Unknown COMPLETE BLOOD COUNT [id number] ABS MONO 0.85 10e9/L 014 Unknown COMPLETE BLOOD COUNT [id number] ABS EOS 0.50 10e9/L 014 Unknown COMPLETE BLOOD COUNT [id number] ABS BASO 0.01 10e9/L 014 Unknown COMPLETE BLOOD COUNT [id number] RDW-SD 42.3 fL 4 Unknown COMPREHENSIVE METABOLIC 22357 AST 27 U/L 2013 Unknown COMPREHENSIVE METABOLIC 53969 ALT 30 IU/L 2013 Unknown COMPREHENSIVE METABOLIC 91555 BUN 16 MG/DL 2013 Unknown COMPREHENSIVE METABOLIC 42301 ALBUMIN 4.9 GM/DL 2013 Unknown COMPREHENSIVE METABOLIC 13253 CHLORIDE 99 MMOL/L 2013 Unknown COMPREHENSIVE METABOLIC 59123 BILI TOT 0.7 MG/DL 2013 Unknown COMPREHENSIVE METABOLIC 94463 ALK PHOS 53 U/L 2013 Unknown COMPREHENSIVE METABOLIC 70648 SODIUM 137 MMOL/L 09/08 Unknown COMPREHENSIVE METABOLIC 31364 CREATININE 1.01 MG/DL 11/2013 Unknown COMPREHENSIVE METABOLIC 73929 CALCIUM 10.0 MG/DL 09/08 Unknown COMPREHENSIVE METABOLIC 08600 POTASSIUM 4.4 MMOL/L 09/08 Unknown COMPREHENSIVE METABOLIC 40209 PROT TOT 7.1 GM/DL 2013 Unknown COMPREHENSIVE METABOLIC 06652 Glucose 148 MG/DL 2013 Unknown COMPREHENSIVE METABOLIC 62086 BICARB 30 MMOL/L 2013 Unknown COMPREHENSIVE METABOLIC 31084 ANION GAP 8 MEQ/L 2013 Unknown GFR CALC 8568656 GFR AA >60 ML/MIN 09/08/2013 Unknown GFR CALC 5644544 GFR NON-AA >60 ML/MIN 09/08/2013 Unknown FREE T4 44286 FREE T4 1.08 NG/DL 09/08/2013 Unknown GLYCOSYLATED HEMOGLOBIN TEST 46786 A1C HPLC 89938-5 7.3 % 0 09/08/2013 Unknown THYROID STIMULATING HORMONE 93072 TSH 5.454 uIU/ML 09/08/2013 Unknown LIPID GROUP 99586 HDL TEST 59 MG/DL 09/08/2013 Unknown LIPID GROUP 15686 TRIG 92 MG/DL 09/08/2013 Unknown LIPID GROUP 85789 TEST LDL 83 MG/DL 09/08/2013 Unknown LIPID GROUP 90576 CHOL 160 MG/DL 09/08/2013 Unknown LIPID GROUP 80354 RCHOL/HDL 2.71 RATIO 09/08/2013 Unknow n VITAMIN B 12 FOLIC ACID 55156|43834 VIT B 12 467 PG/ML 12/2012 Unknown VITAMIN B 12 FOLIC ACID 66955|05104 FOLIC ACID 12.2 NG/ML Unknown VITAMIN B 12 FOLIC ACID 72351|54643 VIT B 12 467 PG/ML 12/2012 Unknown THYROID STIMULATING HORMONE 36969 TSH 4.557 uIU/ML 03/12/2013 Unknown HEMOGLOBIN A1C (GLYCOSYLATED) 7793239 A1C HPLC 03396-0 7.6 % 03/12/2013 Unknown VITAMIN D TOTAL (25 HYDROXY) 51342 VIT D TOTL 17 NG/ML 03/12/2013 Unknown FREE T4 01929 FREE T4 1.07 NG/DL 03/12/2013 Unknown URIC ACID 04452 URIC ACID 5.2 MG/DL 03/12/2013 Unknown Procedures Procedure Codes Date PPPS, subseq visit CPT-4: G0439 01/12/2020 THER/PROPH/DIAG INJ SC/IM CPT-4: 48739 05/13/2019 TRIAMCINOLONE ACET INJ NOS CPT-4: J3301 05/13/2019 DEXAMETHASONE SODIUM PHOS CPT-4: J1100 05/13/2019 THER/PROPH/DIAG INJ SC/IM CPT-4: 56464 02/22/2019 TRIAMCINOLONE ACET INJ NOS CPT-4: J3301 02/22/2019 FLU VACC PRSV FREE INC ANTIG 65 AND OLDER CPT-4: 52290 04/21/2018 ADMIN INFLUENZA VIRUS VAC CPT-4: G0008 04/21/2018 PRESCRIP TRANSMIT VIA ERX SY CPT-4: G8553 04/21/2018 DESTRUCT PREMALG LESION (Cryosurgery) CPT-4: 28247 FLU VACC PRSV FREE INC ANTIG 65 AND OLDER CPT-4: 00560 04/22/2017 ADMIN INFLUENZA VIRUS VAC CPT-4: G0008 04/22/2017 PRESCRIP TRANSMIT VIA ERX SY CPT-4: G8553 10/10/2016 PRESCRIP TRANSMIT VIA ERX SY CPT-4: G8553 08/29/2015 ROUTINE VENIPUNCTURE CPT-4: 93679 07/26/2015 ASSAY OF FREE THYROXINE CPT-4: 00914 07/26/2015 ASSAY THYROID STIM HORMONE CPT-4: 99222 07/26/2015 COMPREHEN METABOLIC PANEL CPT-4: 63713 07/26/2015 COMPLETE CBC W/AUTO DIFF WBC CPT-4: 90863 07/26/2015 LIPID PANEL CPT-4: 02172 07/26/2015 ASSAY OF PSA TOTAL CPT-4: 06089 07/26/2015 A1C HPLC CPT-4: 23581 07/26/2015 ROUTINE VENIPUNCTURE CPT-4: 15016 01/17/2015 ASSAY OF FREE THYROXINE CPT-4: 43191 01/17/2015 ASSAY THYROID STIM HORMONE CPT-4: 83177 01/17/2015 COMPREHEN METABOLIC PANEL CPT-4: 69943 01/17/2015 COMPLETE CBC W/AUTO DIFF WBC CPT-4: 76904 01/17/2015 A1C HPLC CPT-4: 50226 01/17/2015 VITAMIN B-12 CPT-4: 16288 01/17/2015 PPPS, subseq visit CPT-4: G0439 08/04/2014 PRESCRIP TRANSMIT VIA ERX SY CPT-4: G8553 02/18/2014 FLUZONE, 5ML (Medicare) CPT-4: Q2038 07/22/2013 ADMIN INFLUENZA VIRUS VAC CPT-4: G0008 07/22/2013 PRESCRIP TRANSMIT VIA ERX SY CPT-4: G8553 04/28/2013 ROUTINE VENIPUNCTURE CPT-4: 23113 03/12/2013 VITAMIN D TOTAL (25 HYDROXY) CPT-4: 37741 03/12/2013 VITAMIN B 12 FOLIC ACID CPT-4: 33940|40047 03/12/2013 A1C GLYCOSYLATED HEMOGLOBIN TEST CPT-4: 24043 013 ASSAY OF BLOOD/URIC ACID CPT-4: 18684 03/12/2013 ASSAY OF FREE THYROXINE CPT-4: 21763 03/12/2013 ASSAY THYROID STIM HORMONE CPT-4: 33518 03/12/2013 CUR TOBACCO NON-USER CPT-4: G8457 03/11/2013 PRESCRIP TRANSMIT VIA ERX SY CPT-4: G8553 03/11/2013 Vital Signs Date Vital 01/12/2020 Blood Pressure 1: 126/84 Code: 8480-6 BMI: 37.5 Code: 60771-3 Heart Rate 1: 80 bpm Height: 5'9" [...] 1: 156/70 Code: 8480-6 BMI: 35.0 Code: 23301-6 Heart Rate 1: 68 bpm Height: 5'10" Respiratory Rate: 20 bpm SpO2: 95% Tempera ture: 36.5 (C) / 97.7 (F) Weight: 244 lbs 04/21/2018 Blood Pressure 1: 124/80 Code: 8480-6 BMI: 34.4 Code: 73475-1 Heart Rate 1: 80 bpm Height: 5'10" Respiratory Rate: 20 bpm SpO2: 96% Tempera ture: 37.0 (C) / 98.6 (F) Weight: 240 lbs 01/06/2018 Blood Pressure 1: 138/82 Code: 8480-6 BMI: 33.9 Code: 59044-7 Heart Rate 1: 96 bpm Height: 5'10" Respiratory Rate: 24 bpm SpO2: 98% Tempera ture: 35.9 (C) / 96.6 (F) Weight: 236 lbs 10/22/2017 Blood Pressure 1: 144/70 Code: 8480-6 BMI: 34.7 Code: 90473-0 Heart Rate 1: 72 bpm Height: 5'10" Respiratory Rate: 20 bpm SpO2: 96% Tempera ture: 36.9 (C) / 98.4 (F) Weight: 242 lbs 04/22/2017 Blood Pressure 1: 146/82 Code: 8480-6 BMI: 32.9 Code: 94900-2 Heart Rate 1: 104 bpm Height: 5'10" Respiratory Rate: 20 bpm SpO2: 95% Tempera ture: 36.9 (C) / 98.5 (F) Weight: 229 lbs 10/10/2016 Blood Pressure 1: 124/64 Code: 8480-6 BMI: 32.9 Code: 50491-5 Heart Rate 1: 64 bpm Height: 5'10" [...] 1: 146/90 Code: 8480-6 BMI: 34.1 Code: 70825-6 Heart Rate 1: 80 bpm Height: 5'10" Respiratory Rate: 20 bpm Temperature: 36 .8 (C) / 98.2 (F) Weight: 238 lbs 01/17/2015 Blood Pressure 1: 116/60 Code: 8480-6 BMI: 32.7 Code: 34945-1 Heart Rate 1: 84 bpm Height: 5'10" Respiratory Rate: 20 bpm Temperature: 36 .7 (C) / 98.0 (F) Weight: 228 lbs 09/29/2014 Blood Pressure 1: 136/78 Code: 8480-6 BMI: 33.9 Code: 45404-4 Heart Rate 1: 80 bpm Height: 5'10" Respiratory Rate: 20 bpm Temperature: 36 .6 (C) / 97.9 (F) Weight: 236 lbs 08/04/2014 Blood Pressure 1: 132/70 Code: 8480-6 BMI: 32.9 Code: 62692-1 Heart Rate 1: 72 bpm Height: 5'10" Respiratory Rate: 20 bpm Temperature: 36 .7 (C) / 98.0 (F) Weight: 229 lbs 02/18/2014 Blood Pressure 1: 124/82 Code: 8480-6 Heart Rate 1: 82 bpm Respiratory Rate: 18 bpm Temperature: 36.4 (C) / 97.5 (F) Weight: 232 lbs 07/29/2013 Blood Pressure 1: 146/80 Code: 8480-6 BMI: 34.1 Code: 17658-6 Heart Rate 1: 64 bpm Height: 5'10" Respiratory Rate: 20 bpm Temperature: 36 .9 (C) / 98.5 (F) Weight: 238 lbs 05/26/2013 Blood Pressure 1: 142/90 Code: 8480-6 BMI: 34.0 Code: 88906-9 Heart Rate 1: 84 bpm Height: 5'10" Respiratory Rate: 20 bpm Temperature: 36 .7 (C) / 98.0 (F) Weight: 237 lbs 04/28/2013 Blood Pressure 1: 118/78 Code: 8480-6 BMI: 32.9 Code: 67543-1 Heart Rate 1: 74 bpm Height: 5'10" Respiratory Rate: 20 bpm Temperature: 36 .1 (C) / 97.0 (F) Weight: 229 lbs 03/11/2013 Blood Pressure 1: 146/80 Code: 8480-6 BMI: 31.5 Code: 44634-4 Heart Rate 1: 80 bpm Height: 6' [...] care Encounters Encounter Performer Location Codes Date ([id number]) OFFICE/OUTPATIENT VISIT EST Diagnosis: Esophageal reflux[ICD10: K21.9] Diagnosis: History of bladder cancer[ICD10: Z85.51] Xiomara BETTENCOURT DO [employer] CPT-4: 28540 12/07/2019 ([id number]) OFFICE/OUTPATIENT VISIT EST Diagnosis: DM w/o complication type II, uncontrolled[ICD10: E11.65] Diagnosis: Other dyspnea and respiratory abnormality[ICD10: R06.09] Xiomara BETTENCOURT DO [employer] CPT-4: 78597 10/27/2019 ([id number]) OFFICE/OUTPATIENT VISIT EST Diagnosis: Chronic obstructive pulmonary disease, unspecified[ICD10: J44.9] Diagnosis: DM w/o complication type II, uncontrolled[ICD10: E11.65] Diagnosis: Edema[ICD10: R60.9] [facility] 37329 10/20/2019 ([id number]) OFFICE/OUTPATIENT VISIT EST Diagnosis: Other dyspnea and respiratory abnormality[ICD10: R06.09] Diagnosis: Obstructive sleep apnea[ICD10: G47.33] Diagnosis: Hypotension[ICD10: I95.9] Xiomara Bettencourt [facility] CPT -4: 27082 10/12/2019 ([id number]) OFFICE/OUTPATIENT VISIT EST Diagnosis: Upper respiratory infection[ICD10: J06.9] [facility]PT[facility]: 53398 06/02/2019 ([id number]) OFFICE/OUTPATIENT VISIT EST Diagnosis: Sinusitis[ICD10: J32.9] Diagnosis: Allergic rhinitis[ICD10: J30.9] [facility]PT[facility]: 52880 05/13/2019 ([id number]) OFFICE/OUTPATIENT VISIT EST Diagnosis: Pneumonia[ICD10: J18.9] Pennie [facility] CPT-4: 04320 04/26/2019 ([id number]) OFFICE/OUTPATIENT VISIT EST Diagnosis: Acute sinusitis, unspecified[ICD10: J01.90] Pennie BETTENCOURT [facility] CPT-4: 01965 02/22/2019 ([id number]) OFFICE/OUTPATIENT VISIT EST Diagnosis: Cervicalgia[ICD10: M54.2] [facility]omara [facility] CPT-4: 36193 11/25/2018 ([id number]) OFFICE/OUTPATIENT VISIT EST Diagnosis: Acute sinusitis, unspecified[ICD10: J01.90] Diagnosis: Myalgia, unspecified site[ICD10: M79.10] Diagnosis: Cervicalgia[ICD10: M54.2] Xiomara [facility] CPT-4: 95451 11/19/2018 ([id number]) OFFICE/OUTPATIENT VISIT EST Diagnosis: Low back pain[ICD10: M54.5] Diagnosis: Essential (primary) hypertension[ICD10: I10] Diagnosis: 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, 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] Diagnosis: Paroxysmal atrial fibrillation[ICD10: I48.0] [facility]: 60194 07/22/2018 ([id number]) OFFICE/OUTPATIENT VISIT EST Diagnosis: Type 2 diabetes mellitus with diabetic neuropathy, unspecified[ICD10: E11.40] Diagnosis: Hyperlipidemia, unspecified[ICD10: E78.5] Diagnosis: Essential (primary) hypertension[ICD10: I10] Diagnosis: Chronic kidney disease, stage 1[ICD10: N18.1] Diagnosis: Benign prostatic hyperplasia with lower urinary tract symptoms[ICD10: N40.1] Diagnosis: FLU VACCINE[ICD10: Z23] Xiomara Gan [facility] CPT-4: 02239 04/21/2018 OFFICE/OUTPATIENT VISIT EST Diagnosis: Type 2 diabetes mellitus with hyperglycemia[ICD10: E11.65] Diagnosis: Essential (primary) hypertension[ICD10: I10] Diagnosis: Mixed hyperlipidemia[ICD10: E78.2] Diagnosis: Other fatigue[ICD10: R53.83] [facility] 49848 01/06/2018 ([id number]) OFFICE/OUTPATIENT VISIT EST Diagnosis: Type 2 diabetes mellitus with diabetic neuropathy, unspecified[ICD10: E11.40] Diagnosis: Essential (primary) hypertension[ICD10: I10] Diagnosis: Pain in right thigh[ICD10: M79.651] Diagnosis: Pain in left leg[ICD10: M79.605] Diagnosis: Localized swelling, mass and lump, left lower limb[ICD10: R22.42] Diagnosis: OSTEOARTHRISIS MULTI SITES[ICD10: M19.90] Diagnosis: FLU VACCINE[ICD10: Z23] Xiomara Gan [facility] CPT-4: 91908 04/22/2017 ([id number]) OFFICE/OUTPATIENT VISIT EST Diagnosis: Essential (primary) hypertension[ICD10: I10] Diagnosis: Type 2 diabetes mellitus with hyperglycemia[ICD10: E11.65] Diagnosis: Angina pectoris, unspecified[ICD10: I20.9] Xiomara LARA DelphineEdvin [employer] [facility] CPT-4: 76667 10/10/2016 ([id number]) OFFICE/OUTPATIENT VISIT EST Diagnosis: Cough[ICD10: R05] Diagnosis: Wheezing[ICD10: R06.2] Diagnosis: Chronic obstructive pulmonary disease, unspecified[ICD10: J44.9] Shannan Grimes XIOMARA DelphineEdvin [employer] [facility] CPT-4: 69488 08/31/2015 OFFICE/OUTPATIENT VISIT EST Diagnosis: Acute bronchitis, unspecified[ICD10: J20.9] Diagnosis: Wheezing[ICD10: R06.2] Kelsie DaMessi LARA DelphineEdvin ARELYSHAANShaheen Magdaleno [employer] [facility] CPT-4: 00876 08/29/2015 ([id number]) OFFICE/OUTPATIENT VISIT EST Diagnosis: Type 2 diabetes mellitus with diabetic neuropathy, unspecified[ICD10: E11.40] Diagnosis: Hyperlipidemia, unspecified[ICD10: E78.5] Diagnosis: Essential (primary) hypertension[ICD10: I10] Diagnosis: Encounter for general adult medical examination without abnormal findings[ICD10: Z00.00] Xiomara LARA DelphineEdvin [employer] [facility] CPT-4: 37204 07/26/2015 OFFICE/OUTPATIENT VISIT EST Diagnosis: Type 2 diabetes mellitus with hyperglycemia[ICD10: E11.65] Diagnosis: Unspecified osteoarthritis, unspecified site[ICD10: M19.90] Diagnosis: Other instability, right knee[ICD10: M25.361] Kelsiesa Humera LARA DelphineEdvin KODAK [employer] [facility] CPT-4: 55233 07/24/2015 ([id number]) OFFICE/OUTPATIENT VISIT EST Diagnosis: Pain in leg, unspecified[ICD10: M79.606] Diagnosis: Type 2 diabetes mellitus with diabetic neuropathy, unspecified[ICD10: E11.40] Xiomara LARA DelphineEdivn [employer] [facility] CPT-4: 90004 05/01/2015 ([id number]) OFFICE/OUTPATIENT VISIT EST Diagnosis: MALAISE AND FATIGUE[ICD9: 780.79] Diagnosis: 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, 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] Diagnosis: CAD[ICD9: 414.00] Diagnosis: ANEMIA NOS[ICD9: 285.9] Xiomara [facility] CPT-4: 28038 01/17/2015 ([id number]) OFFICE/OUTPATIENT VISIT EST Diagnosis: Skin lesion[ICD9: 709.9] Xiomara HAND [facility] CPT-4: 80564 09/29/2014 OFFICE/OUTPATIENT VISIT EST Diagnosis: GASTROENTERITIS[ICD9: 558.9] Diagnosis: GERD[ICD9: 530.81] Kelsie Humera [facility] CPT-[facility]: 52457 02/18/2014 ([id number]) OFFICE/OUTPATIENT VISIT EST Diagnosis: 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I, UNCONTROLLED[ICD9: 250.02] Xiomara BETTENCOURT [facility] CPT-4: 33494 07/29/2013 ([id number]) OFFICE/OUTPATIENT VISIT EST Diagnosis: FLU VACCINE[ICD9: V04.81] Xiomara MAGALLON [facility] CPT-4: 36550 07/22/2013 ([id number]) OFFICE/OUTPATIENT VISIT EST Diagnosis: 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I, UNCONTROLLED[ICD9: 250.02] Diagnosis: HYPERTENSION[ICD9: 401.9] Xiomara MAGALLON [facility] CPT-4: 79664 05/26/2013 ([id number]) OFFICE/OUTPATIENT VISIT EST Diagnosis: MONONEURITIS[ICD9: 355.9] Diagnosis: RESTLESS LEGS SYNDROME[ICD9: 333.94] Diagnosis: HYPERTENSION[ICD9: 401.9] Diagnosis: CAD[ICD9: 414.00] Diagnosis: Weakness[ICD9: 780.79] Xiomara [facility] CPT-4: 07373 04/28/2013 ([id number]) OFFICE/OUTPATIENT VISIT EST Diagnosis: 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[ICD9: 250.01] Diagnosis: MONONEURITIS[ICD9: 355.9] Diagnosis: HYPERLIPIDEMIA NEC/NOS[ICD9: 272.4] Diagnosis: CAD[ICD9: 414.00] Xiomara Gan [employer] CPT-4: 43274 03/12/2013 OFFICE/OUTPATIENT VISIT NEW Diagnosis: CAD[ICD9: 414.00] Diagnosis: HYPERLIPIDEMIA NEC/NOS[ICD9: 272.4] Diagnosis: HYPERTENSION[ICD9: 401.9] Diagnosis: Neuropathy[ICD9: 355.9] Diagnosis: RESTLESS LEGS SYNDROME[ICD9: 333.94] Xiomara JACKMAN [employer] CPT-4: 04734 03/11/2013 Plan of Care Planned Activity Notes Codes Status Date Visit Diagnosis Plan: Diabetes mellitus type 1, contro lled, insulin dependent Discussion: Lab discussed Accuchecks daily Continue current meds Check CMP and HbA1C in 3mos then fwup ICD-9 : 250.01 ICD-10 : E10.9 01/12/2020 Visit Diagnosis Plan: Encounter for [facility] adult medical examination without abnormal findings Discussion: Mediterranean diet Combinati on of cardio and weight bearing exercise Lab discussed ICD-9 : V70.0 ICD-10 : Z00.00 01/12/2020 Visit Diagnosis Plan: Obstructive sleep apnea (adult) (pediatric) Discussion: Not able to tolerate CPAP ICD-9 : 327.23 ICD-10 : G47.33 01/12/2020 Visit Diagnosis Plan: Allergic rhinitis Discussion: Ad d flonase q PM routinely Told to start humidifying oxygen for nasal congestion ICD-9 : 477.9 ICD-10 : J30.9 01/12/2020 Visit Diagnosis Plan: Esophageal reflux Discussion: DC Zantac Increase omeprazole to 20mg po BID ICD-9 : 530.81 ICD-10 : K21.9 01/12/2020 Care Plan: US EXAM ABDO BACK WALL COMP renal US L OINC : 58359-2 Pending 12/08/2019 Visit Diagnosis Plan: History of bladder cancer Discus jaswinder: Check CT abdomen/pelvis ICD-9 : V10.51 ICD-10 : Z85.51 12/07/2019 Visit Diagnosis Plan: Esophageal reflux Discussion: Ta kesha omeprazole daily Will try pancreatic enzymes ICD-9 : 530.81 ICD-10 : K21.9 12/07/2019 Appointment: Xiomara Bettencourt [facility] [phone] [facility] [facility] 12/07/2019 Care Plan: CT PELVIS [...] : R06.09 10/27/2019 Appointment: Xiomara Bettencourt [facility]Ptel: [facility] FO[facility] UP 10/27/2019 Patient Education: gabapentin- [employer] Coupon [phone] [email or web address] Completed 10/27/2019 Visit Diagnosis Plan: DM w/o [...] : J44.9 10/20/2019 Appointment: Xiomara Bettencourt WPtel: [address] [place], [place] [address] [place] FOLLOW UP 10/20/2019 Patient Education: furosemide- [employer] Coupon [phone] [email or web address]/resources/[email or web address] Completed 10/20/2019 Visit Diagnosis Plan: Obstructive sleep [...] 458.9 ICD-10 : I95.9 10/12/2019 Appointment: Xiomara Bettencourt WPtel: [address] [place], [place] [phone] TELEMEDICINE 10/12/2019 Appointment: Xiomara Bettencourt WPtel: [address] [place], [place] [phone] US RESCHEDULED 09/23/2019 Care Plan: COMPREHEN METABOLIC PANEL SERGEI NC : 84704-1 Pending 09/20/2019 Care Plan: LIPID PANEL LOINC : 89167-8 Pending 09/20/2019 Care Plan: A1C HPLC LOINC : 32146-0 Pending 09/20/2019 Care Plan: COMPLETE CBC W/AUTO DIFF WBC LOINC : 07859-2 Pending 09/20/2019 Visit Diagnosis Plan: Upper respiratory infection Disc ussion: discussed that most likely viral. push fluids and rest through the week. patient has left over levaquin at home (5 days worth). instructed patient to start taking if he gets worse later this week and to call us next week if no improvement. ICD-9 : 465.9 ICD-10 : J06.9 06/02/2019 Appointment: Pennie Pizarro [address] [place], [place] [phone] ACUTE ILLNESS 06/02/2019 Visit Diagnosis Plan: Allergic [...] ICD-10 : J30.9 05/13/2019 Appointment: Pennie Pizarro [address] [place], [place] [phone] ACUTE ILLNESS 05/13/2019 Appointment: Xiomara Bettencourt WPtel: [phone] [facility] CANCELED 04/27/2019 Visit Diagnosis Plan: Pneumonia Discussion: will obtai n records from urgent care. instructed to finish out doxy. no rhonchi or crackles auscultated. symbicort sample given to patient with instructions to use bid. call office later this week with new or worsening symptoms. ICD-9 : 486 ICD-10 : J18.9 04/26/2019 Appointment: Pennie Pizarro [address] [place], [place] [phone] FOLLOW UP 04/26/2019 Visit Diagnosis Plan: Acute [...] ICD-10 : J01.90 02/22/2019 Appointment: Pennie Pizarro [address] [place], [place] [phone] ACUTE ILLNESS 02/22/2019 Patient Education: prednisone- [employer] Coupon [phone] [email or web address]/[email or web address] Completed 02/22/2019 Visit Diagnosis Plan: Cervicalgia Discussion: Check Ce rvical Spine X-ray Will likely need PT ICD-9 : 723.1 ICD-10 : M54.2 11/25/2018 Appointment: Xiomara Bettencourt WPtel: [facility] ACUTE ILLNESS 11/25/2018 Visit Plan: Saline nasal [...] prn. Tyle... 11/19/2018 Appointment: Xiomara Bettencourt WPtel: [address] [place], [place] [id number] ACUTE ILLNESS 11/19/2018 Patient Education: [email or web address]- [employer] Coupon [phone] [email or web address]/[email or web address] Completed 11/19/2018 Visit Diagnosis Plan: Paroxysmal atrial [...] : I10 07/22/2018 Appointment: Xiomara Bettencourt WPtel: [facility] US FOLLOW UP 07/22/2018 Visit Diagnosis Plan: Chronic [...] Trial of flomax Call in 1 mo [facility] on how doing Follow Up: 4 months ICD-9 : 600.21 ICD-10 : N40.1 04/21/2018 Appointment: Xiomara Bettencourt [facility]Ptel[facility] [phone] [facility] [facility] FOLLOW UP 04/21/2018 Patient Education: Patient [...] ICD-10 : E78.2 01/06/2018 Appointment: Pennie Pizarro [address] [place] [address] MEDICATION REVIEW 01/06/2018 Patient Education: Patient Medication Summary Completed 01/06/2018 Appointment: Xiomara Bettencourt WPtel: [address] [place] [address] NO SHOW 01/05/2018 Appointment: Xiomara Bettencourt WPtel: [address] [place] [address] US CANCELED 12/31/2017 Visit Diagnosis Plan: Actinic keratosis Discussion: Cr yotherapy as above but will see derm if lesions do not resolve ICD-9 : 702.0 ICD-10 : L57.0 10/22/2017 Appointment: Xiomara Bettencourt WPtel: [address] [place] [address] ACUTE ILLNESS 10/22/2017 Patient Education: Patient Medication [...] : M79.605 04/22/2017 Appointment: Xiomara Bettencourt WPtel: [address] [place], [place] [phone] US FOLLOW UP 04/22/2017 Patient Education: Patient Medication Summary Completed 04/22/2017 Patient Education: Patient Medication Summary Completed 04/16/2017 Care Plan: COMPREHEN METABOLIC PANEL SERGEI NC : 59966-3 Pending 04/16/2017 Care Plan: LIPID PANEL LOINC : 95285-8 Pending 04/16/2017 Care Plan: CBC Pending 04/16/2017 Care Plan: A1C HPLC LOINC : 33369-8 Pending 04/16/2017 Ref[facility]enc[facility] [id number] [id number]ointment Confirmed 10/14/2016 Visit Diagnosis Plan: Type 2 diabetes mellitus with hy perglycemia Discussion: Continue toujeo Accuchecks BID Follow Up: 4 months ICD-9 : 250.02 ICD-10 : E11.65 10/10/2016 Visit Diagnosis Plan: Angina pectoris, unspecified Dis cussion: Continue imdur and see cardiology To ER if chest pain returns ICD-9 : 413.9 ICD-10 : I20.9 10/10/2016 Appointment: Xiomara Bettencourt WPtel: [id number] [place] FOLLOW UP 10/10/2016 Patient Education: Patient Medication Summary Completed 10/10/2016 Patient Education: Patient Medication Summary Completed 09/16/2016 Care Plan: COMPREHEN METABOLIC PANEL SERGEI NC : 36386-7 Pending 09/16/2016 Care Plan: ASSAY THYROID STIM HORMONE Pen ding 09/16/2016 Care Plan: ASSAY OF FREE THYROXINE Pendin g 09/16/2016 Care Plan: LIPID PANEL LOINC : 73674-1 Pending 09/16/2016 Care Plan: CBC Pending 09/16/2016 Care Plan: A1C HPLC LOINC : 00641-2 Pending 09/16/2016 Visit Plan: CXR now to further evaluate symptoms Suspect viral since he has been on 2 rounds of antibiotics If chronic lung disease evident, will consider keeping on symbicort custodial Sample inhaler given today with instructions on use Continue oral prednisone, would like to avoid injection if possible considering his DM status and he is stable right now Continue albuterol PRN Will call with CXR results 08/31/2015 Appointment: Shannan Grimes [address] [place] [address] 08/31 confirmed- SP ACUTE ILLNESS 08/31/2015 Patient Education: Patient Medication Summary Completed 08/31/2015 Visit Plan: Albuterol INH via SVN every 4 hours Prednisone 20 mg PO BID Notify for worsening symptoms 08/29/2015 Appointment: Kelsie Grubbs WPtel: [address] [place] [address] ACUTE ILLNESS 08/29/2015 Patient Education: Patient Medication Summary Completed 08/29/2015 Appointment: Xiomara Bettencourt WPtel: [address] [place], [place] [id number] 07/26/2015 Patient Education: Patient Medication Summary Completed 07/26/2015 Visit Plan: Return in am for fasting lab s - CBC, CMP, TSH, Free T4, HgbA1C Change Levemir to Toujeo - Continue 35 Units q am - sample given Start physical Therapy for increased quadriceps strengthening and decreased pain in knees, bilaterally. 07/24/2015 Appointment: Kelsie Grubbs WPtel: [address] [place], [place] [id number] 07/21 appt confirmed cn FOLLOW UP 07/24/19 Appointment: Kelsie Grubbs WPtel: [address] [place] [address] FOLLOW UP 07/24/2015 Patient Education: Patient Medication [...] with insulin 05/01/2015 Appointment: Xiomara Bettencourt WPtel: [address] [place] [address] 04/28 confirmed~sl ACUTE ILLNESS 05/01/2015 Patient Education: Patient Medication Summary Completed 05/01/2015 Patient Education: Patient Medication Summary Completed 01/19/2015 Care Plan: URINALYSIS [place] W/[place] : [id number] Pending 01/19/2015 Visit Plan: I have went through his medi cations in past and stopped meds but he adjusts his meds on his own and has restarted some Stop Amaryl Once again discussed not using indomethacin routinely due to taking plavix and aspirin daily and skilled nursing use is dangerous Check CBC, CMP, TSH, free T4, B12 and HbA1C Patient has seen Cardiology recently but no cardiac cath done--had chemical stress test 01/17/2015 Appointment: Xiomara Bettencourt WPtel: [address] [place], [place] [id number] 01/16 vm cn ACUTE ILLNESS 01/17/2015 Patient Education: Patient Medication Summary Completed 01/17/2015 Visit Plan: See Dr. Garvin for removal 09/29/2014 Appointment: Xiomara Bettencourt WPtel: [address] [place] [address] ACUTE ILLNESS 09/29/2014 Referral: Colt Garvin WPtel: [address] Referral Initiated 09/29/2014 Patient Education: Patient Medication Summary Completed 09/29/2014 Visit Plan: Check CBC, CMP, TSH, free T4 , HbA1C, Lipids Accuchecks daily alternating times Patient has been adjusting own meds and has not taken any cholesterol meds for sometime Will check into surgery on right knee at [facility] Check carotid dopplers 08/04/2014 Appointment: Xiomara Bettencourt WPtel: [address] [place] [address] Annual Well Visit 08/04/2014 Patient Education: Patient Medication Summary Completed 08/04/2014 Appointment: Kelsie Grubbs WPtel: [address] [place] [address] ACUTE ILLNESS 02/18/2014 Patient Education: Patient Medication Summary Completed 02/18/2014 Patient Education: [facility] - Saving AutoInj - 18+ - Dynamic Portal ID Completed 02/18/2014 Appointment: Xiomara Bettencourt WPtel: [address] [place] [address] LAB 09/08/2013 Visit Plan: Check fasting lab in 1mo Con tinue Lantus and accuchecks at least BID 07/29/2013 Appointment: Xiomara Bettencourt WPtel: [address] [place] [address] FOLLOW UP 07/29/2013 Patient Education: Patient Medication Summary Completed 07/29/2013 Appointment: Xiomara Bettencourt WPtel: [address] [place] [address] INJECTION 07/22/2013 Patient Education: Patient Medication Summary Completed 07/22/2013 Visit Plan: Pt has been self-adjusting m eds Stop metformin and amaryl Use Levemir 25u sc BID and call in 1wk with BS readings 05/26/2013 Appointment: Xiomara Bettencourt WPtel: [address] [place] [address] FOLLOW UP 05/26/2013 Patient Education: Patient Medication Summary Completed 05/26/2013 Visit Plan: DC Metformin Increase Lantus to 30u sc daily Change lisinopril to lisinopril HCT 20/25mg q AM Continue Gabapentin at current dose 04/28/2013 Appointment: Xiomara Bettencourt WPtel: [address] [place], [place] [id number] FOLLOW UP 04/28/2013 Patient Education: Patient Medication Summary Completed 04/28/2013 Appointment: Xiomara Bettencourt WPtel: [address] [place], [place] [id number] [place] LAB 03/12/2013 Patient Education: Patient Medication Summary Completed 03/12/2013 Visit Plan: Trial of neurontin 400mg q H S Obtain most recent lab results Change levemir to lantus per pt request Pt goes for sleep study tonite 03/11/2013 Appointment: Xiomara Bettencourt WPtel: [address] [facility] 02/01paperwork mailed 03/10 confirmed with spouse NEW PATIENT 11/2012 Patient Education: Patient Medication Summary Completed 03/11/2013 Instructions Comment . Saline nasal flushes prn. Tylenol/Motr in prn headache. Notify if persists/symptoms worsening. . 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 Check fasting [...]
--- OUTSIDE RECORDS SUMMARY | 2020-02-02 21:30 | XMS REPORT | CCD ---
Author Author Sheng Bettencourt D.O. Organization [facility] DelphineEdvin BETTENCOURT DO [facility] Address [address] [place] [address] Phone Care Team Providers Care Candles Pourer Name Role Phone PP Unavailable CCM Unavailable Summary Purpose Interface Exchange Insurance Providers Payer name Policy type / Coverage type Covered green party ID Effective Begin Date Effective End Date WPS MEDIC[place] PART [place] Medicare Part B [id number] 2018 Unknown [facility] [[email or web address] Medicare Part B [id number] 2018 Un known Family history Mother Diagnosis Age At Onset Diabetes mellitus Type 2 Unknown Hypercholesterolemia Unknown Father Diagnosis Age At Onset No Family Disease Entered N/A Social History Social History Element Codes Description Effective Dates Marital status Unknown 03/11/2013 Number of children Unknown 4 03/11/2013 Employment Unknown Retired 03/11/[address]: 3638921 Former smoker 03/11/[address]: 989604 Currently drinks alc ohol Socially 03/11/2013 Has [...] Relief 50 mcg/actuation nasal spray,suspensi on RxNorm: 9341523 2 [place] Nasal QPM 01/12/2020 05/11/2020 Active omeprazole 20 mg capsule,delayed release RxNorm: 243008 1 Capsule(s) Oral two times a day 01/12/2020 07/10/2020 Active simvastatin 20 mg tablet RxNorm: 975776 1 Tablet(s) Oral QD 020 04/02/2020 Active Needs updated fasting labs b efore 90 day refill Flomax 0.4 mg capsule RxNorm: 876113 TAKE TWO CAPSULES BY MOUTH EVERY EVENING 11/11/2019 No Stop Date Active glimepiride 2 mg tablet RxNorm: 289685 1 Tablet(s) Oral QD 10/27/19 20 No Stop Date Active gabapentin 400 mg capsule RxNorm: 456461 1 Capsule(s) Oral QPM 10/0604/24/2020 Active potassium chloride ER 20 mEq tablet,extended release RxNorm: 032634 1 Tablet(s) Oral QD to take with lasix 10/20/2019 10/26/2019 Inactive furosemide 40 mg tablet RxNorm: 304764 1 Tablet(s) Oral QAM for swelling 10/20/2019 10/26/2019 Inactive albuterol sulfate HFA 90 mcg/actuation aerosol inhaler RxNor m: 8106711 1-2 Puff(s) Inhalation as needed 10/12/2019 No Stop Date Active Zyrtec 10 mg tablet RxNorm: 7036899 1 Tablet(s) Oral QAM 10/12/2019 No Stop Date Active aspirin 81 mg tablet,delayed release RxNorm: 724042 1 Tablet(s) Oral QD 10/12/2019 No Stop Date Active Symbicort 160 mcg-4.5 mcg/actuation HFA aerosol inhaler RxNo rm: 0810402 2 Puff(s) Inhalation QD 10/12/2019 No Stop Date Active lisinopril 20 mg tablet RxNorm: 551718 1 Tablet(s) Oral QD 10/12/19 20 01/10/2020 Inactive simvastatin 20 mg tablet RxNorm: 186591 1 Tablet(s) Ora l QD Needs updated fasting labs 09/20/2019 01/02/2020 Inactive Needs updated fa sting labs before 90 day refill Flomax 0.4 mg capsule RxNorm: 728333 TAKE TWO CAPSULES BY MOUTH EVERY EVENING 08/03/2019 11/10/2019 Inactive gabapentin 400 mg capsule RxNorm: 865219 TAKE ONE CAPSU LE BY MOUTH EVERY EVENING 08/02/2019 10/26/2019 Inactive simvastatin 20 mg tablet RxNorm: 367170 1 Tablet(s) Ora l QD Needs updated fasting labs 07/21/2019 08/19/2019 Inactive Needs updated fa sting labs before 90 day refill simvastatin 20 mg tablet RxNorm: 875070 1 Tablet(s) Ora l QD Needs updated fasting labs 06/23/2019 07/20/2019 Inactive Needs updated fa sting labs before 90 day refill Flomax 0.4 mg capsule RxNorm: 942866 1 Capsule(s) Oral QD 05/13/2019 10/19/2019 Inactive Flomax 0.4 mg capsule RxNorm: 459200 TAKE TWO CAPSULES BY MOUTH EVERY EVENING 03/19/2019 05/12/2019 Inactive Augmentin 500 mg-125 mg tablet RxNorm: 565468 1 Tablet(s) PO BID 03/03/2019 Inactive baclofen 10 mg tablet RxNorm: 982791 TAKE ONE TABLET BY MOUTH EVERY NIGHT AT BEDTIME FOR PAIN OR SPASMS 01/14/2019 05/12/2019 Inactive Flomax 0.4 mg capsule RxNorm: 971303 TAKE TWO CAPSULES BY MOUTH EVERY EVENING 01/12/2019 03/18/2019 Inactive gabapentin 400 mg capsule RxNorm: 260412 1 Capsule(s) PO QPM 201806/27/2019 Inactive baclofen 10 mg tablet RxNorm: 420451 1 Tablet(s) PO QHS for my n/spasm 12/15/2018 01/13/2019 Inactive simvastatin 20 mg tablet RxNorm: 163592 TAKE ONE TABLET BY MOUT H DAILY 12/11/2018 06/22/2019 Inactive OneTouch Ultra Blue Test Strip RxNorm: Use 1 rigoberto t strip three times daily to check blood sugar (Dx:E11.65) 12/07/2018 No Stop Date Active gabapentin 400 mg capsule RxNorm: 197674 TAKE ONE CAPSU LE BY MOUTH EVERY EVENING 12/04/2018 12/29/2018 Inactive baclofen 10 mg tablet RxNorm: 789377 1 Tablet(s) PO QHS for my n/spasm 11/19/2018 12/15/2018 Inactive Flomax 0.4 mg capsule RxNorm: 531175 2 Capsule(s) PO QPM 09/15/2018 0 12/13/2018 Inactive WOULD LIKE 90DS!!! gabapentin 400 mg capsule RxNorm: 008870 TAKE ONE CAPSU LE BY MOUTH EVERY EVENING 07/21/2018 10/18/2018 Inactive simvastatin 20 mg tablet RxNorm: 677767 1 Tablet(s) PO QD 06/15/2018 12/10/2018 Inactive Flomax 0.4 mg capsule RxNorm: 067664 TAKE TWO CAPSULES BY MOUTH EVERY EVENING 06/02/2018 09/15/2018 Inactive WOULD LIKE 90DS!!! Flomax 0.4 mg capsule RxNorm: 515850 2 Capsule(s) PO QPM 04/21/2018 1 07/20/2017 Inactive simvastatin 20 mg tablet RxNorm: 342454 1 Tablet(s) PO QD Take 1 tablet by mouth daily. Patient due for labwork before further refill. 04/06/20182017 Inactive simvastatin 20 mg tablet RxNorm: 190879 Tablet(s) TAKE ONE TABLET BY MOUTH DAILY 03/25/2018 06/15/2018 Inactive simvastatin 20 mg tablet RxNorm: 928708 Tablet(s) TAKE ONE TABLET BY MOUTH DAILY due for appt 12/29/2017 03/25/2018 Inactive simvastatin 20 mg tablet RxNorm: 731888 TAKE ONE TABLET BY MOUT H DAILY 09/03/2017 12/29/2017 Inactive simvastatin 20 mg tablet RxNorm: 686511 1 Tablet(s) PO QD 10/22/2016 11/18/2018 Inactive isosorbide mononitrate ER 60 mg tablet,extended release 24 h r RxNorm: 454160 1 Tablet(s) PO QD 10/22/2016 04/21/2017 Inactive isosorbide mononitrate ER 60 mg tablet,extended release 24 h r RxNorm: 968570 1 Tablet(s) PO QD 10/10/2016 10/21/2016 Inactive simvastatin 20 mg tablet RxNorm: 944811 1 Tablet(s) PO QD 10/10/2016 10/21/2016 Inactive gabapentin 400 mg capsule RxNorm: 311258 1 Capsule(s) PO QPM 201609/20/2016 Inactive Toujeo SoloStar 300 unit/mL (1.5 mL) subcutaneous insulin pe n RxNorm: 9450554 35 Unit(s) SQ QAM 07/23/2016 07/22/2016 Inactive Toujeo SoloStar 300 unit/mL (1.5 mL) subcutaneous insulin pe n RxNorm: 0988368 40 Unit(s) SQ QAM 09/01/2015 No Stop Date Active Symbicort 160 mcg-4.5 mcg/actuation HFA aerosol inhaler RxNo rm: 1837319 2 Puff(s) INH BID 08/31/2015 09/09/2015 Inactive prednisone 20 mg tablet RxNorm: 302057 1 Tablet(s) PO BID 08/29/2015 09/02/2015 Inactive albuterol sulfate 2.5 mg/3 mL (0.083 %) solution for n ebulization RxNorm: 164198 1 Unit(s) INH Q4H as needed 08/29/2015 10/09/2016 Inactive levothyroxine 75 mcg tablet RxNorm: 825016 1 Tablet(s) PO QD 201507/27/2015 Inactive levothyroxine 75 mcg tablet RxNorm: 157486 1 Tablet(s) PO QD 201511/18/2018 Inactive levothyroxine 75 mcg tablet RxNorm: 041186 1 Tablet(s) PO QD 201507/27/2015 Inactive lisinopril 20 mg-hydrochlorothiazide 25 mg tablet RxNorm: 19 7887 TAKE ONE TABLET BY MOUTH EVERY MORNING. REPLACES PLAIN LISINOPRIL 03/06/2015 04/21/2017 Inactive lisinopril 20 mg-hydrochlorothiazide 25 mg tablet RxNorm: 19 7887 TAKE ONE TABLET BY MOUTH EVERY MORNING. REPLACES PLAIN LISINOPRIL 09/08/2014 03/05/2015 Inactive allopurinol 100 mg tablet RxNorm: 406850 1 Tablet(s) PO BID 015 10/09/2016 Inactive [SAVINGS FOR NON-COVERED [facility] -- BIN:[id number], PCN: [id number], Group: [id number], ID# [id number], Questions: . THIS IS NOT INSURANCE.] levothyroxine 50 mcg tablet RxNorm: 392078 1 Tablet(s) PO QD 201407/26/2015 Inactive [AttnRPh: Saving apply/adjud icate RxGRP:SG20 RxBIN:[id number] RxPCN: ID#:[id number]] Zegerid 40 mg-1.1 gram capsule RxNorm: 702773 1 Capsule(s) PO QD 03/03/2014 Inactive [AttnRPh: Saving apply/adjud icate RxGRP:SG20 RxBIN:[id number] RxPCN:HT ID#:[id number]] ondansetron 8 mg disintegrating tablet RxNorm: 511937 1 Tablet(s) PO Q8H as needed for [...] 07/28/2013 Inactive gabapentin 400 mg capsule RxNorm: 833979 1 Capsule(s) PO QPM 201207/28/2013 Inactive gabapentin 400 mg capsule RxNorm: 255041 1 Capsule(s) PO QPM 201206/26/2013 Inactive lisinopril 20 mg-hydrochlorothiazide 25 mg tablet RxNorm: 82 3971 1 Tablet(s) PO QAM replaces plain lisinopril 04/28/2013 07/29/2013 Inactive gabapentin 400 mg capsule RxNorm: 154590 1 Capsule(s) PO QPM 201204/27/2013 Inactive gabapentin 400 mg capsule RxNorm: 410564 1 Capsule(s) PO QPM 201203/10/2013 Inactive gabapentin 400 mg capsule RxNorm: 729841 1 Capsule(s) PO QPM 201203/14/2013 Inactive Lantus Solostar 100 unit/mL (3 mL) Sub-Q Insulin Pen RxNorm: 301243 20 Unit(s) SQ QPM 03/11/2013 03/15/2013 Inactive Toujeo SoloStar 300 unit/mL (1.5 mL) subcutaneous insulin pe n RxNorm: 7695534 35 Unit(s) SQ QAM No Start Date Active isosorbide mononitrate ER 60 mg tablet,extended release 24 h r RxNorm: 558155 1 Tablet(s) PO QD No Start Date Active Eliquis 5 mg tablet RxNorm: 2756787 1 Tablet(s) PO BID No Start Date Active metformin 500 mg tablet RxNorm: 678988 1 Tablet(s) PO BID No Start Da te Active levothyroxine 50 mcg tablet RxNorm: 183973 1 Tablet(s) PO QD No Start Date Active Norvasc 10 mg tablet RxNorm: 759959 1 Tablet(s) PO QHS No Start Date Active Toujeo SoloStar 300 unit/mL (1.5 mL) subcutaneous insulin pe n RxNorm: 5609790 30 Unit(s) SQ QAM No Start Date Active glimepiride 4 mg tablet RxNorm: 374164 1 Tablet(s) PO QHS No Start Date 07/26/2015 Inactive omeprazole 20 mg capsule,delayed release RxNorm: 007801 1 Capsu le(s) PO QD No Start Date 01/11/2020 Inactive allopurinol 100 mg tablet RxNorm: 224779 1 Tablet(s) PO BID No Star t Date 08/10/2014 Inactive Lantus Solostar 100 unit/mL (3 mL) subcutaneous insulin pen RxNorm: 025909 30 Unit(s) SQ QD No Start Date 08/03/2014 Inactive Levemir FlexTouch 100 unit/mL (3 mL) subcutaneous insulin pe n RxNorm: 206685 25 Unit(s) SQ QAM No Start Date 07/23/2015 Inactive Lantus 100 unit/mL Sub-Q RxNorm: 791712 30 Unit(s) SQ QHS No Start Date 05/25/2013 Inactive Lantus Solostar 100 unit/mL (3 mL) Sub-Q Insulin Pen RxNorm: 317718 20 Unit(s) SQ QPM No Start Date 03/10/2013 Inactive OneTouch Ultra Blue Test Strip RxNorm: Use 1 rigoberto t strip three times daily to check blood sugar (Dx:E11.65) No Start Date 12/06/2018 Inactive Levemir FlexTouch 100 unit/mL (3 mL) subcutaneous insulin pe n RxNorm: 349508 30- 35 Unit(s) SQ QAM No Start Date 07/23/2015 Inactive Levemir Flexpen 100 unit/mL (3 mL) solution subcutaneo us insulin pen RxNorm: 705923 20-25 Unit(s) SQ QD No Start Date 07/28/2013 Inactive lisinopril 20 mg tablet RxNorm: 611333 1 Tablet(s) PO QD No Start D ate 10/11/2019 Inactive indomethacin ER 75 mg capsule,extended release RxNorm: 80688 2 1 Capsule(s) PO QAM No Start Date 04/27/2013 Inactive indomethacin ER 75 mg capsule,extended release RxNorm: 62543 2 1 Capsule(s) PO QD No Start Date 01/16/2015 Inactive Chlortab-4 oral RxNorm: 797241 oral No Start Date 10/11/2019 Inac tive Vitamin D3 5,000 unit tablet RxNorm: 675478 1 Tablet(s) PO QD No St art Date 08/03/2014 Inactive Levemir Flexpen 100 unit/mL (3 mL) solution subcutaneo us insulin Pen RxNorm: 393884 20 Unit(s) SQ QHS No Start Date 03/10/2013 Inactive Vytorin 10 mg-40 mg tablet RxNorm: 4459973 1/2 Tablet(s) PO QD No S tart Date 04/20/2018 Inactive oxymetazoline-menthol 0.05 % nasal spray RxNorm: 0617586 [place] N COTY No Start Date 10/11/2019 Inactive Patient states he ta kes every 10 hours Toujeo SoloStar 300 unit/mL (1.5 mL) subcutaneous insulin pe n RxNorm: 5954563 35 Unit(s) SQ QAM No Start Date 07/22/2016 Inactive Lantus Solostar 100 unit/mL (3 mL) subcutaneous insulin pen RxNorm: 216138 20 Unit(s) SQ QD No Start Date 08/03/2014 Inactive aspirin 81 mg tablet RxNorm: 689466 1 Tablet(s) PO QD No Start Date 0 08/03/2014 Inactive metformin 500 mg tablet RxNorm: 415265 1 Tablet(s) PO BID No Start Date 07/28/2013 Inactive glimepiride 4 mg tablet RxNorm: 229632 1 Tablet(s) PO BID No Start Date 01/16/2015 Inactive glimepiride 4 mg tablet RxNorm: 991466 1 Tablet(s) PO QD No Start D ate 08/03/2014 Inactive levothyroxine 25 mcg tablet RxNorm: 602738 1 Tablet(s) PO QD No Sta rt Date 08/10/2014 Inactive doxycycline oral RxNorm: 97142 oral No Start Date 05/12/2019 Inac tive aspirin 81 mg tablet RxNorm: 564279 1 Tablet(s) PO QD No Start Date 0 07/21/2018 Inactive isosorbide mononitrate ER 60 mg tablet,extended release 24 h r RxNorm: 734602 1 Tablet(s) PO BID No Start Date 01/16/2015 Inactive metformin 500 mg tablet RxNorm: 874376 1 Tablet(s) PO BID No Start Date 04/27/2013 Inactive Plavix 75 mg tablet RxNorm: 416736 1 Tablet(s) PO QD No Start Date Inactive glimepiride 4 mg tablet RxNorm: 828370 1 Tablet(s) PO QPM No Start Date 02/21/2019 Inactive Vytorin 10-40 10 mg-40 mg tablet RxNorm: 1569968 1 Tablet(s) PO QHS No Start Date 08/03/2014 Inactive indomethacin 50 mg capsule RxNorm: 336705 1 Capsule(s) PO QHS No St art Date 01/16/2015 Inactive glimepiride 4 mg tablet RxNorm: 858274 1 Tablet(s) PO BID No Start Date 07/28/2013 Inactive Levemir FlexTouch 100 unit/mL (3 mL) subcutaneous insulin pe n RxNorm: 151661 20 Unit(s) SQ QD No Start Date 04/30/2015 Inactive lisinopril 20 mg tablet RxNorm: 938365 1 Tablet(s) PO BID No Start Date 04/27/2013 Inactive Lantus Solostar SubQ RxNorm: Subcutaneous No Start Date 03/15/2013 I nactive Zantac 150 mg tablet RxNorm: 121715 1 Tablet(s) PO QHS No Start Date 10/11/2019 Inactive allopurinol 300 mg tablet RxNorm: 347846 1 Tablet(s) PO QD No Start Date 08/03/2014 Inactive Fish Oil 1,000 mg capsule RxNorm: 1 Capsule(s) PO QD No Start Date 02/21/2019 Inactive indomethacin 50 mg capsule RxNorm: 925065 1 Capsule(s) PO BID No St art Date 04/20/2018 Inactive levothyroxine 50 mcg tablet RxNorm: 486367 1 Tablet(s) PO QD No Sta rt Date 08/10/2014 Inactive glimepiride 4 mg tablet RxNorm: 641353 1 Tablet(s) PO BID No Start Date 03/15/2013 Inactive indomethacin 50 mg capsule RxNorm: 233450 1 Capsule(s) PO QHS No St art Date 04/27/2013 Inactive Medication Administered No Medication Administered data Immunizations Vaccine Codes Date Status Influenza CVX: 135 04/21/2018 Complete Influenza CVX: 135 04/22/2017 Complete Results Observation Observation Code Item Item Code Result Date S ervice Location [facility] 19986 Cholesterol 209 mg/dL 09/17/2016 Unkno wn [facility] 99641 Triglyceride 111 mg/dL 09/17/2016 Unkn own [facility] 60620 HDL CHOLESTEROL 50 mg/dL 09/17/2016 U nknown [facility] 69580 Chol/HDL Ratio 4.18 ratio 09/17/2016 U nknown [facility] 33725 NON-HDL Chol 159 mg/dL 09/17/2016 Unkn own [facility] 78804 LDL Cholesterol 137 mg/dL 09/17/2016 U nknown MEAN GLUC 0103738 Calc Mean Gluc 151 mg/dL 09/17/2016 Unkn own COMPREHENSIVE METABOLIC 52883 AST 23 U/L 2016 Unknown COMPREHENSIVE METABOLIC 56065 ALT 19 U/L 2016 Unknown COMPREHENSIVE MET[facility]OLIC 26918 BUN 15 mg/dL 2016 Unknown COMPREHENSIVE METABOLIC 20000 ALBUMIN 4.3 g/dL 2016 Unknown COMPREHENSIVE METABOLIC 65781 CHLORIDE 103 mmol/L 09/17 Unknown COMPREHENSIVE METABOLIC 52818 Bili Total 0.6 mg/dL 09/17 Unknown COMPREHENSIVE METABOLIC 42982 ALK PHOS 60 U/L 2016 Unknown COMPREHENSIVE METABOLIC 77047 SODIUM 140 mmol/L 09/17 Unknown COMPREHENSIVE METABOLIC 21897 CREATININE 1.03 mg/dL 09/04 Unknown COMPREHENSIVE METABOLIC 08548 CALCIUM 9.5 mg/dL 2016 Unknown COMPREHENSIVE METABOLIC 81087 POTASSIUM 3.9 mmol/L 09/17 Unknown COMPREHENSIVE METABOLIC 09994 Total Protein 6.9 g/dL Unknown COMPREHENSIVE METABOLIC 82191 Glucose 94 mg/dL 2016 Unknown COMPREHENSIVE METABOLIC 99862 Bicarbonate 28 mmol/L 09/04 Unknown COMPREHENSIVE METABOLIC 78670 AGAP 9 mmol/L 2016 Unknown GFR CALC 9522131 GFR Non Afr Amr >60 mL/min 09/17/2016 Un known GFR CALC 9804158 GFR Afr Amr >60 mL/min 09/17/2016 Unknow n THYROID STIMULATING HORMONE 97032 TSH 4.260 uIU/mL 09/17/2016 Unknown GLYCOSYLATED HEMOGLOBIN TEST 58253 Hgb A1c 75420-6 6.9 % 0 09/17/2016 Unknown FREE T4 10307 T4 Free 1.02 ng/dL 09/17/2016 Unknown COMPLETE BLOOD COUNT 1761752 WBC 8.6 10e9/L 07/26/19 16 Unknown COMPLETE BLOOD COUNT 2403431 RBC 4.86 10e12/L 2015 Unknown COMPLETE BLOOD COUNT 4967174 HGB 14.6 g/dL 6 Unknown COMPLETE BLOOD COUNT 5313112 HCT DET 43.1 % 6 Unknown COMPLETE BLOOD COUNT 8589509 MCV 88.7 fL 6 Unknown COMPLETE BLOOD COUNT 5823017 MCH 30.0 pg 6 Unknown COMPLETE BLOOD COUNT 8762276 MCHC 33.9 g/dL 6 Unknown COMPLETE BLOOD COUNT 0834659 PLT 267 10e9/L 07/26/19 16 Unknown COMPLETE BLOOD COUNT 3835519 MPV 11.5 fL 6 Unknown COMPLETE BLOOD COUNT 1071040 SAM % 64.8 % 6 Unknown COMPLETE BLOOD COUNT 9883906 LY % 16.8 % 6 Unknown COMPLETE BLOOD COUNT 4189340 MON % 12.5 % 6 Unknown COMPLETE BLOOD COUNT 6832351 EOS % 5.6 % 6 Unknown COMPLETE BLOOD COUNT 8403927 BASO % 0.3 % 6 Unknown COMPLETE BLOOD COUNT 3501776 RDW 13.4 % 6 Unknown COMPLETE BLOOD COUNT 8340396 ABS SAM 5.57 10e9/L 016 Unknown COMPLETE BLOOD COUNT 1302418 ABS LYMPH 1.44 10e9/L 016 Unknown COMPLETE BLOOD COUNT 3947116 ABS MONO 1.08 10e9/L 016 Unknown COMPLETE BLOOD COUNT 5444612 ABS EOS 0.48 10e9/L 016 Unknown COMPLETE BLOOD COUNT 9908462 ABS BASO 0.03 10e9/L 016 Unknown COMPLETE BLOOD COUNT 6664271 RDW-SD 42.9 fL 6 Unknown PSA EQUIMOLAR MATT 23709 PSA EQ 0.78 NG/ML 6 Unknown THYROID STIMULATING HORMONE 82359 TSH 5.292 uIU/ML 07/26/2015 Unknown GLYCOSYLATED HEMOGLOBIN TEST 12255 A1C HPLC 44072-9 7.0 % 0 07/26/2015 Unknown GFR CALC 1168842 GFR AA >60 ML/MIN 07/26/2015 Unknown GFR CALC 2041902 GFR NON-AA >60 ML/MIN 07/26/2015 Unknown [facility] 80457 HDL TEST 64 MG/DL 07/26/2015 Unknown [facility] 47401 TRIG 58 MG/DL 07/26/2015 Unknown [facility] 06846 TEST LDL 49 MG/DL 07/26/2015 Unknown [facility] 95946 CHOL 125 MG/DL 07/26/2015 Unknown [facility] 37826 RCHOL/HDL 1.95 RATIO 07/26/2015 Unknow n [facility] 89662 NON-HDL CH 61 MG/DL 07/26/2015 Unknow n COMPREHENSIVE METABOLIC 99743 AST 25 U/L 2015 Unknown COMPREHENSIVE METABOLIC 66721 ALT 23 IU/L 2015 Unknown COMPREHENSIVE METABOLIC 81004 BUN 18 MG/DL 2015 Unknown COMPREHENSIVE METABOLIC 32949 ALBUMIN 4.6 GM/DL 2015 Unknown COMPREHENSIVE METABOLIC 56140 CHLORIDE 100 MMOL/L 07/26 Unknown COMPREHENSIVE METABOLIC 47701 BILI TOT 0.5 MG/DL 2015 Unknown COMPREHENSIVE METABOLIC 64358 ALK PHOS 49 U/L 2015 Unknown COMPREHENSIVE METABOLIC 79512 SODIUM 137 MMOL/L 07/26 Unknown COMPREHENSIVE METABOLIC 96732 CREATININE 1.06 MG/DL 07/08 Unknown COMPREHENSIVE METABOLIC 14983 CALCIUM 9.5 MG/DL 2015 Unknown COMPREHENSIVE METABOLIC 57642 POTASSIUM 4.5 MMOL/L 07/26 Unknown COMPREHENSIVE METABOLIC 50379 PROT TOT 6.5 GM/DL 2015 Unknown COMPREHENSIVE METABOLIC 64878 Glucose 109 MG/DL 2015 Unknown COMPREHENSIVE METABOLIC 54841 BICARB 29 MMOL/L 2015 Unknown COMPREHENSIVE METABOLIC 09560 ANION GAP 8 MEQ/L 2015 Unknown FREE T4 01566 FREE T4 1.11 NG/DL 07/26/2015 Unknown CULTURE & SENSITIVITY 50263 PROTEIN UR NEG 015 Unknown CULTURE & SENSITIVITY 16139 HEMGLBN UR TR 015 Unknown CULTURE & SENSITIVITY 10173 GLUCOSE UR NEG 015 Unknown CULTURE & SENSITIVITY 21871 KETONES UR NEG 015 Unknown CULTURE & SENSITIVITY 03411 PH U 6.5 01/25/20 15 Unknown CULTURE & SENSITIVITY 84888 SP GR U 1.013 01/25/20 15 Unknown CULTURE & SENSITIVITY 43993 BILRUBN UR NEG 015 Unknown CULTURE & SENSITIVITY 02199 LEUKO UR NEG 01/25/20 15 Unknown CULTURE & SENSITIVITY 00832 NITRITE UR NEG 015 Unknown MICR CUL? [id number] SP TO JOHANA? NO 01/24/2015 Unknown MICR CUL? [id number] APPEAR UR NORMAL 01/24/2015 Unknown MICR CUL? 0728242 RBC/uL 2.2 01/24/2015 Unknown MICR CUL? 1196295 WBC/uL 2.8 01/24/2015 Unknown MICR CUL? 4226308 SQ EPI/uL 1.0 01/24/2015 Unknown MICR CUL? 0051137 HYALCST/uL 0.25 01/24/2015 Unknown MICR CUL? 8418691 WBC /HPF 1 01/24/2015 Unknown MICR CUL? 2770266 RBC /HPF 0 01/24/2015 Unknown GLYCOSYLATED HEMOGLOBIN TEST 30242 A1C HPLC 73669-0 6.6 % 0 01/17/2015 Unknown COMPLETE BLOOD COUNT 0648543 WBC 10.1 10e9/L 015 Unknown COMPLETE BLOOD COUNT 5525298 RBC 4.60 10e12/L 2014 Unknown COMPLETE BLOOD COUNT 5979467 HGB 14.0 g/dL 5 Unknown COMPLETE BLOOD COUNT 4086583 HCT DET 39.9 % 5 Unknown COMPLETE BLOOD COUNT 5574612 MCV 86.7 fL 5 Unknown COMPLETE BLOOD COUNT 7148897 MCH 30.4 pg 5 Unknown COMPLETE BLOOD COUNT 6570452 MCHC 35.1 g/dL 5 Unknown COMPLETE BLOOD COUNT 9363117 PLT 252 10e9/L 01/18/20 15 Unknown COMPLETE BLOOD COUNT 6356776 MPV 11.4 fL 5 Unknown COMPLETE BLOOD COUNT 3054835 SAM % 72.9 % 5 Unknown COMPLETE BLOOD COUNT 3303574 LY % 13.6 % 5 Unknown COMPLETE BLOOD COUNT 9790740 MON % 10.2 % 5 Unknown COMPLETE BLOOD COUNT 2308693 EOS % 3.1 % 5 Unknown COMPLETE BLOOD COUNT 2721406 BASO % 0.2 % 5 Unknown COMPLETE BLOOD COUNT 5409284 RDW 13.6 % 5 Unknown COMPLETE BLOOD COUNT 7816063 ABS SAM 7.36 10e9/L 015 Unknown COMPLETE BLOOD COUNT 1250002 ABS LYMPH 1.37 10e9/L 015 Unknown COMPLETE BLOOD COUNT 8479624 ABS MONO 1.03 10e9/L 015 Unknown COMPLETE BLOOD COUNT 2040512 ABS EOS 0.31 10e9/L 015 Unknown COMPLETE BLOOD COUNT 1647686 ABS BASO 0.02 10e9/L 015 Unknown COMPLETE BLOOD COUNT 2537268 RDW-SD 42.4 fL 5 Unknown GFR CALC 8554599 GFR AA 51.0L ML/MIN 01/17/2015 Unknow n GFR CALC 5499496 GFR NON-AA 42.0L ML/MIN 01/17/2015 Unkno wn FREE T4 98901 FREE T4 1.30 NG/DL 01/17/2015 Unknown THYROID STIMULATING HORMONE 29704 TSH 4.029 uIU/ML 01/17/2015 Unknown COMPREHENSIVE METABOLIC 52538 AST 28 U/L 2014 Unknown COMPREHENSIVE METABOLIC 76306 ALT 25 IU/L 2014 Unknown COMPREHENSIVE METABOLIC 40090 BUN 21 MG/DL 2014 Unknown COMPREHENSIVE METABOLIC 99374 ALBUMIN 4.7 GM/DL 2014 Unknown COMPREHENSIVE METABOLIC 38070 CHLORIDE 102 MMOL/L 01/17 Unknown COMPREHENSIVE METABOLIC 62242 BILI TOT 0.6 MG/DL 2014 Unknown COMPREHENSIVE METABOLIC 02111 ALK PHOS 44 U/L 2014 Unknown COMPREHENSIVE METABOLIC 17444 SODIUM 137 MMOL/L 01/17 Unknown COMPREHENSIVE METABOLIC 99683 CREATININE 1.62 MG/DL 01/04 Unknown COMPREHENSIVE METABOLIC 08945 CALCIUM 9.7 MG/DL 2014 Unknown COMPREHENSIVE METABOLIC 66816 POTASSIUM 4.5 MMOL/L 01/17 Unknown COMPREHENSIVE METABOLIC 43062 PROT TOT 6.5 GM/DL 2014 Unknown COMPREHENSIVE METABOLIC 87204 Glucose 136 MG/DL 2014 Unknown COMPREHENSIVE METABOLIC 99992 BICARB 24 MMOL/L 2014 Unknown COMPREHENSIVE METABOLIC 34360 ANION GAP 11 MEQ/L 2014 Unknown VITAMIN B 12 32410 VIT B 12 482 PG/ML 01/17/2015 Unknow n URIC ACID 10753 URIC ACID 8.5 MG/DL 08/09/2014 Unknown COMPREHENSIVE METABOLIC 44891 AST 27 U/L 2014 Unknown COMPREHENSIVE METABOLIC 44453 ALT 26 IU/L 2014 Unknown COMPREHENSIVE METABOLIC 90261 BUN 17 MG/DL 2014 Unknown COMPREHENSIVE METABOLIC 48520 ALBUMIN 5.0 GM/DL 2014 Unknown COMPREHENSIVE METABOLIC 60335 CHLORIDE 101 MMOL/L 08/09 Unknown COMPREHENSIVE METABOLIC 05360 BILI TOT 0.7 MG/DL 2014 Unknown COMPREHENSIVE METABOLIC 08431 ALK PHOS 53 U/L 2014 Unknown COMPREHENSIVE METABOLIC 38004 SODIUM 136 MMOL/L 08/09 Unknown COMPREHENSIVE METABOLIC 91180 CREATININE 1.14 MG/DL 09/2014 Unknown COMPREHENSIVE METABOLIC 05920 CALCIUM 9.8 MG/DL 2014 Unknown COMPREHENSIVE METABOLIC 75858 POTASSIUM 4.1 MMOL/L 08/09 Unknown COMPREHENSIVE METABOLIC 90949 PROT TOT 7.5 GM/DL 2014 Unknown COMPREHENSIVE METABOLIC 90127 Glucose 110 MG/DL 2014 Unknown COMPREHENSIVE METABOLIC 69352 BICARB 30 MMOL/L 2014 Unknown COMPREHENSIVE METABOLIC 56769 ANION GAP 5 MEQ/L 2014 Unknown GFR CALC 1992979 GFR AA >60 ML/MIN 08/09/2014 Unknown GFR CALC 7219615 GFR NON-AA >60 ML/MIN 08/09/2014 Unknown FREE T4 32193 FREE T4 1.14 NG/DL 08/09/2014 Unknown GLYCOSYLATED HEMOGLOBIN TEST 94525 A1C HPLC 14831-1 6.8 % 0 08/09/2014 Unknown COMPLETE BLOOD COUNT [id number] WBC 5.9 10e9/L 08/09/19 15 Unknown COMPLETE BLOOD COUNT [id number] RBC 5.04 10e12/L 2014 Unknown COMPLETE BLOOD COUNT 3692440 HGB 15.2 g/dL 5 Unknown COMPLETE BLOOD COUNT 5363311 HCT DET 44.3 % 5 Unknown COMPLETE BLOOD COUNT 9340866 MCV 87.9 fL 5 Unknown COMPLETE BLOOD COUNT 5106601 MCH 30.2 pg 5 Unknown COMPLETE BLOOD COUNT 1973734 MCHC 34.3 g/dL 5 Unknown COMPLETE BLOOD COUNT [id number] PLT 262 10e9/L 08/09/19 15 Unknown COMPLETE BLOOD COUNT 7271172 MPV 10.9 fL 5 Unknown COMPLETE BLOOD COUNT 8984036 SAM % 58.7 % 5 Unknown COMPLETE BLOOD COUNT 5550343 LY % 21.5 % 5 Unknown COMPLETE BLOOD COUNT 1161358 MON % 14.0 % 5 Unknown COMPLETE BLOOD COUNT 6515116 EOS % 5.3 % 5 Unknown COMPLETE BLOOD COUNT [id number] BASO % 0.5 % 5 Unknown COMPLETE BLOOD COUNT [id number] RDW 13.1 % 5 Unknown COMPLETE BLOOD COUNT 5306205 ABS SAM 3.46 10e9/L 015 Unknown COMPLETE BLOOD COUNT 7921552 ABS LYMPH 1.27 10e9/L 015 Unknown COMPLETE BLOOD COUNT [id number] ABS MONO 0.83 10e9/L 015 Unknown COMPLETE BLOOD COUNT [id number] ABS EOS 0.31 10e9/L 015 Unknown COMPLETE BLOOD COUNT [id number] ABS BASO 0.03 10e9/L 015 Unknown COMPLETE BLOOD COUNT [id number] RDW-SD 41.2 fL 5 Unknown THYROID STIMULATING HORMONE 32143 TSH 5.395 uIU/ML 08/09/2014 Unknown LIPID GROUP 71496 HDL TEST 52 MG/DL 08/09/2014 Unknown LIPID GROUP 31852 TRIG 113 MG/DL 08/09/2014 Unknown LIPID GROUP 85395 TEST LDL 158 MG/DL 08/09/2014 Unknown LIPID GROUP 53166 CHOL 233 MG/DL 08/09/2014 Unknown LIPID GROUP 46327 RCHOL/HDL 4.48 RATIO 08/09/2014 Unknow n LIPID GROUP 95676 NON-HDL CH 181 MG/DL 08/09/2014 Unknow n COMPLETE BLOOD COUNT [id number] WBC 6.8 10e9/L 09/09/19 14 Unknown COMPLETE BLOOD COUNT [id number] RBC 5.18 10e12/L 2013 Unknown COMPLETE BLOOD COUNT [id number] HGB 15.2 g/dL 4 Unknown COMPLETE BLOOD COUNT [id number] HCT DET 44.7 % 4 Unknown COMPLETE BLOOD COUNT [id number] MCV 86.3 fL 4 Unknown COMPLETE BLOOD COUNT [id number] MCH 29.3 pg 4 Unknown COMPLETE BLOOD COUNT [id number] MCHC 34.0 g/dL 4 Unknown COMPLETE BLOOD COUNT [id number] PLT 236 10e9/L 09/09/19 14 Unknown COMPLETE BLOOD COUNT [id number] MPV 11.0 fL 4 Unknown COMPLETE BLOOD COUNT [id number] SAM % 58.2 % 4 Unknown COMPLETE BLOOD COUNT [id number] LY % 21.9 % 4 Unknown COMPLETE BLOOD COUNT [id number] MON % 12.5 % 4 Unknown COMPLETE BLOOD COUNT [id number] EOS % 7.3 % 4 Unknown COMPLETE BLOOD COUNT [id number] BASO % 0.1 % 4 Unknown COMPLETE BLOOD COUNT [id number] RDW 13.6 % 4 Unknown COMPLETE BLOOD COUNT [id number] ABS SAM 3.96 10e9/L 014 Unknown COMPLETE BLOOD COUNT [id number] ABS LYMPH 1.49 10e9/L 014 Unknown COMPLETE BLOOD COUNT [id number] ABS MONO 0.85 10e9/L 014 Unknown COMPLETE BLOOD COUNT [id number] ABS EOS 0.50 10e9/L 014 Unknown COMPLETE BLOOD COUNT [id number] ABS BASO 0.01 10e9/L 014 Unknown COMPLETE BLOOD COUNT [id number] RDW-SD 42.3 fL 4 Unknown COMPREHENSIVE METABOLIC 36321 AST 27 U/L 2013 Unknown COMPREHENSIVE METABOLIC 94474 ALT 30 IU/L 2013 Unknown COMPREHENSIVE METABOLIC 80913 BUN 16 MG/DL 2013 Unknown COMPREHENSIVE METABOLIC 99422 ALBUMIN 4.9 GM/DL 2013 Unknown COMPREHENSIVE METABOLIC 29149 CHLORIDE 99 MMOL/L 2013 Unknown COMPREHENSIVE METABOLIC 71943 BILI TOT 0.7 MG/DL 2013 Unknown COMPREHENSIVE METABOLIC 89206 ALK PHOS 53 U/L 2013 Unknown COMPREHENSIVE METABOLIC 27900 SODIUM 137 MMOL/L 09/08 Unknown COMPREHENSIVE METABOLIC 71926 CREATININE 1.01 MG/DL 11/2013 Unknown COMPREHENSIVE METABOLIC 22593 CALCIUM 10.0 MG/DL 09/08 Unknown COMPREHENSIVE METABOLIC 46534 POTASSIUM 4.4 MMOL/L 09/08 Unknown COMPREHENSIVE METABOLIC 02707 PROT TOT 7.1 GM/DL 2013 Unknown COMPREHENSIVE METABOLIC 27890 Glucose 148 MG/DL 2013 Unknown COMPREHENSIVE METABOLIC 97513 BICARB 30 MMOL/L 2013 Unknown COMPREHENSIVE METABOLIC 73939 ANION GAP 8 MEQ/L 2013 Unknown GFR CALC 0722752 GFR AA >60 ML/MIN 09/08/2013 Unknown GFR CALC 4482946 GFR NON-AA >60 ML/MIN 09/08/2013 Unknown FREE T4 38772 FREE T4 1.08 NG/DL 09/08/2013 Unknown GLYCOSYLATED HEMOGLOBIN TEST 83878 A1C HPLC 98906-9 7.3 % 0 09/08/2013 Unknown THYROID STIMULATING HORMONE 69242 TSH 5.454 uIU/ML 09/08/2013 Unknown LIPID GROUP 50291 HDL TEST 59 MG/DL 09/08/2013 Unknown LIPID GROUP 50616 TRIG 92 MG/DL 09/08/2013 Unknown LIPID GROUP 98328 TEST LDL 83 MG/DL 09/08/2013 Unknown LIPID GROUP 91000 CHOL 160 MG/DL 09/08/2013 Unknown LIPID GROUP 30785 RCHOL/HDL 2.71 RATIO 09/08/2013 Unknow n VITAMIN B 12 FOLIC ACID 92357|91687 VIT B 12 467 PG/ML 12/2012 Unknown VITAMIN B 12 FOLIC ACID 80395|20675 FOLIC ACID 12.2 NG/ML Unknown VITAMIN B 12 FOLIC ACID 80678|46344 VIT B 12 467 PG/ML 12/2012 Unknown THYROID STIMULATING HORMONE 23937 TSH 4.557 uIU/ML 03/12/2013 Unknown HEMOGLOBIN A1C (GLYCOSYLATED) 0992612 A1C HPLC 66667-6 7.6 % 03/12/2013 Unknown VITAMIN D TOTAL (25 HYDROXY) 23931 VIT D TOTL 17 NG/ML 03/12/2013 Unknown FREE T4 41694 FREE T4 1.07 NG/DL 03/12/2013 Unknown URIC ACID 01241 URIC ACID 5.2 MG/DL 03/12/2013 Unknown Procedures Procedure Codes Date PPPS, subseq visit CPT-4: G0439 01/12/2020 THER/PROPH/DIAG INJ SC/IM CPT-4: 19479 05/13/2019 TRIAMCINOLONE ACET INJ NOS CPT-4: J3301 05/13/2019 DEXAMETHASONE SODIUM PHOS CPT-4: J1100 05/13/2019 THER/PROPH/DIAG INJ SC/IM CPT-4: 94557 02/22/2019 TRIAMCINOLONE ACET INJ NOS CPT-4: J3301 02/22/2019 FLU VACC PRSV FREE INC ANTIG 65 AND OLDER CPT-4: 16569 04/21/2018 ADMIN INFLUENZA VIRUS VAC CPT-4: G0008 04/21/2018 PRESCRIP TRANSMIT VIA ERX SY CPT-4: G8553 04/21/2018 DESTRUCT PREMALG LESION (Cryosurgery) CPT-4: 86550 FLU VACC PRSV FREE INC ANTIG 65 AND OLDER CPT-4: 43379 04/22/2017 ADMIN INFLUENZA VIRUS VAC CPT-4: G0008 04/22/2017 PRESCRIP TRANSMIT VIA ERX SY CPT-4: G8553 10/10/2016 PRESCRIP TRANSMIT VIA ERX SY CPT-4: G8553 08/29/2015 ROUTINE VENIPUNCTURE CPT-4: 78586 07/26/2015 ASSAY OF FREE THYROXINE CPT-4: 23701 07/26/2015 ASSAY THYROID STIM HORMONE CPT-4: 90238 07/26/2015 COMPREHEN METABOLIC PANEL CPT-4: 45973 07/26/2015 COMPLETE CBC W/AUTO DIFF WBC CPT-4: 20818 07/26/2015 LIPID PANEL CPT-4: 38766 07/26/2015 ASSAY OF PSA TOTAL CPT-4: 22134 07/26/2015 A1C HPLC CPT-4: 96322 07/26/2015 ROUTINE VENIPUNCTURE CPT-4: 90807 01/17/2015 ASSAY OF FREE THYROXINE CPT-4: 15718 01/17/2015 ASSAY THYROID STIM HORMONE CPT-4: 63504 01/17/2015 COMPREHEN METABOLIC PANEL CPT-4: 21094 01/17/2015 COMPLETE CBC W/AUTO DIFF WBC CPT-4: 07925 01/17/2015 A1C HPLC CPT-4: 66595 01/17/2015 VITAMIN B-12 CPT-4: 66839 01/17/2015 PPPS, subseq visit CPT-4: G0439 08/04/2014 PRESCRIP TRANSMIT VIA ERX SY CPT-4: G8553 02/18/2014 FLUZONE, 5ML (Medicare) CPT-4: Q2038 07/22/2013 ADMIN INFLUENZA VIRUS VAC CPT-4: G0008 07/22/2013 PRESCRIP TRANSMIT VIA ERX SY CPT-4: G8553 04/28/2013 ROUTINE VENIPUNCTURE CPT-4: 90755 03/12/2013 VITAMIN D TOTAL (25 HYDROXY) CPT-4: 72764 03/12/2013 VITAMIN B 12 FOLIC ACID CPT-4: 24056|42653 03/12/2013 A1C GLYCOSYLATED HEMOGLOBIN TEST CPT-4: 27362 013 ASSAY OF BLOOD/URIC ACID CPT-4: 81246 03/12/2013 ASSAY OF FREE THYROXINE CPT-4: 06479 03/12/2013 ASSAY THYROID STIM HORMONE CPT-4: 74692 03/12/2013 CUR TOBACCO NON-USER CPT-4: G8457 03/11/2013 PRESCRIP TRANSMIT VIA ERX SY CPT-4: G8553 03/11/2013 Vital Signs Date Vital 01/12/2020 Blood Pressure 1: 126/84 Code: 8480-6 BMI: 37.5 Code: 21831-3 Heart Rate 1: 80 bpm Height: 5'9" [...] 1: 156/70 Code: 8480-6 BMI: 35.0 Code: 48982-4 Heart Rate 1: 68 bpm Height: 5'10" Respiratory Rate: 20 bpm SpO2: 95% Tempera ture: 36.5 (C) / 97.7 (F) Weight: 244 lbs 04/21/2018 Blood Pressure 1: 124/80 Code: 8480-6 BMI: 34.4 Code: 99198-4 Heart Rate 1: 80 bpm Height: 5'10" Respiratory Rate: 20 bpm SpO2: 96% Tempera ture: 37.0 (C) / 98.6 (F) Weight: 240 lbs 01/06/2018 Blood Pressure 1: 138/82 Code: 8480-6 BMI: 33.9 Code: 14560-9 Heart Rate 1: 96 bpm Height: 5'10" Respiratory Rate: 24 bpm SpO2: 98% Tempera ture: 35.9 (C) / 96.6 (F) Weight: 236 lbs 10/22/2017 Blood Pressure 1: 144/70 Code: 8480-6 BMI: 34.7 Code: 75356-2 Heart Rate 1: 72 bpm Height: 5'10" Respiratory Rate: 20 bpm SpO2: 96% Tempera ture: 36.9 (C) / 98.4 (F) Weight: 242 lbs 04/22/2017 Blood Pressure 1: 146/82 Code: 8480-6 BMI: 32.9 Code: 21491-5 Heart Rate 1: 104 bpm Height: 5'10" Respiratory Rate: 20 bpm SpO2: 95% Tempera ture: 36.9 (C) / 98.5 (F) Weight: 229 lbs 10/10/2016 Blood Pressure 1: 124/64 Code: 8480-6 BMI: 32.9 Code: 20677-0 Heart Rate 1: 64 bpm Height: 5'10" [...] 1: 146/90 Code: 8480-6 BMI: 34.1 Code: 56132-9 Heart Rate 1: 80 bpm Height: 5'10" Respiratory Rate: 20 bpm Temperature: 36 .8 (C) / 98.2 (F) Weight: 238 lbs 01/17/2015 Blood Pressure 1: 116/60 Code: 8480-6 BMI: 32.7 Code: 49093-5 Heart Rate 1: 84 bpm Height: 5'10" Respiratory Rate: 20 bpm Temperature: 36 .7 (C) / 98.0 (F) Weight: 228 lbs 09/29/2014 Blood Pressure 1: 136/78 Code: 8480-6 BMI: 33.9 Code: 40119-7 Heart Rate 1: 80 bpm Height: 5'10" Respiratory Rate: 20 bpm Temperature: 36 .6 (C) / 97.9 (F) Weight: 236 lbs 08/04/2014 Blood Pressure 1: 132/70 Code: 8480-6 BMI: 32.9 Code: 25909-1 Heart Rate 1: 72 bpm Height: 5'10" Respiratory Rate: 20 bpm Temperature: 36 .7 (C) / 98.0 (F) Weight: 229 lbs 02/18/2014 Blood Pressure 1: 124/82 Code: 8480-6 Heart Rate 1: 82 bpm Respiratory Rate: 18 bpm Temperature: 36.4 (C) / 97.5 (F) Weight: 232 lbs 07/29/2013 Blood Pressure 1: 146/80 Code: 8480-6 BMI: 34.1 Code: 84594-5 Heart Rate 1: 64 bpm Height: 5'10" Respiratory Rate: 20 bpm Temperature: 36 .9 (C) / 98.5 (F) Weight: 238 lbs 05/26/2013 Blood Pressure 1: 142/90 Code: 8480-6 BMI: 34.0 Code: 64991-9 Heart Rate 1: 84 bpm Height: 5'10" Respiratory Rate: 20 bpm Temperature: 36 .7 (C) / 98.0 (F) Weight: 237 lbs 04/28/2013 Blood Pressure 1: 118/78 Code: 8480-6 BMI: 32.9 Code: 74962-2 Heart Rate 1: 74 bpm Height: 5'10" Respiratory Rate: 20 bpm Temperature: 36 .1 (C) / 97.0 (F) Weight: 229 lbs 03/11/2013 Blood Pressure 1: 146/80 Code: 8480-6 BMI: 31.5 Code: 96166-6 Heart Rate 1: 80 bpm Height: 6' [...] care Encounters Encounter Performer Location Codes Date ([id number]) OFFICE/OUTPATIENT VISIT EST Diagnosis: Esophageal reflux[ICD10: K21.9] Diagnosis: History of bladder cancer[ICD10: Z85.51] Xiomara BETTENCOURT DO [facility] CPT-4: 31586 12/07/2019 ([id number]) OFFICE/OUTPATIENT VISIT EST Diagnosis: DM w/o complication type II, uncontrolled[ICD10: E11.65] Diagnosis: Other dyspnea and respiratory abnormality[ICD10: R06.09] Xiomara BETTENCOURT DO [facility] CPT-4: 16696 10/27/2019 ([id number]) OFFICE/OUTPATIENT VISIT EST Diagnosis: Chronic obstructive pulmonary disease, unspecified[ICD10: J44.9] Diagnosis: DM w/o complication type II, uncontrolled[ICD10: E11.65] Diagnosis: Edema[ICD10: R60.9] [facility] 36315 10/20/2019 ([id number]) OFFICE/OUTPATIENT VISIT EST Diagnosis: Other dyspnea and respiratory abnormality[ICD10: R06.09] Diagnosis: Obstructive sleep apnea[ICD10: G47.33] Diagnosis: Hypotension[ICD10: I95.9] Xiomara Bettencourt [facility] CPT -4: 77429 10/12/2019 ([id number]) OFFICE/OUTPATIENT VISIT EST Diagnosis: Upper respiratory infection[ICD10: J06.9] Pennie [facility]: 98161 06/02/2019 ([id number]) OFFICE/OUTPATIENT VISIT EST Diagnosis: Sinusitis[ICD10: J32.9] Diagnosis: Allergic rhinitis[ICD10: J30.9] [facility]: 48413 05/13/2019 ([id number]) OFFICE/OUTPATIENT VISIT EST Diagnosis: Pneumonia[ICD10: J18.9] Pennie [facility] CPT-4: 75010 04/26/2019 ([id number]) OFFICE/OUTPATIENT VISIT EST Diagnosis: Acute sinusitis, unspecified[ICD10: J01.90] Pennie [facility]ENCOURT [facility] CPT-4: 58405 02/22/2019 ([id number]) OFFICE/OUTPATIENT VISIT EST Diagnosis: Cervicalgia[ICD10: M54.2] Xiomara [facility] CPT-4: 65205 11/25/2018 ([id number]) OFFICE/OUTPATIENT VISIT EST Diagnosis: Acute sinusitis, unspecified[ICD10: J01.90] Diagnosis: Myalgia, unspecified site[ICD10: M79.10] Diagnosis: Cervicalgia[ICD10: M54.2] Xiomara [facility] CPT-4: 86923 11/19/2018 ([id number]) OFFICE/OUTPATIENT VISIT EST Diagnosis: Low back pain[ICD10: M54.5] Diagnosis: Essential (primary) hypertension[ICD10: I10] Diagnosis: 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, 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] Diagnosis: Paroxysmal atrial fibrillation[ICD10: I48.0] [facility] C[facility]: 84390 07/22/2018 ([id number]) OFFICE/OUTPATIENT VISIT EST Diagnosis: Type 2 diabetes mellitus with diabetic neuropathy, unspecified[ICD10: E11.40] Diagnosis: Hyperlipidemia, unspecified[ICD10: E78.5] Diagnosis: Essential (primary) hypertension[ICD10: I10] Diagnosis: Chronic kidney disease, stage 1[ICD10: N18.1] Diagnosis: Benign prostatic hyperplasia with lower urinary tract symptoms[ICD10: N40.1] Diagnosis: FLU VACCINE[ICD10: Z23] Xiomara Gan [facility] CPT-4: 38887 04/21/2018 OFFICE/OUTPATIENT VISIT EST Diagnosis: Type 2 diabetes mellitus with hyperglycemia[ICD10: E11.65] Diagnosis: Essential (primary) hypertension[ICD10: I10] Diagnosis: Mixed hyperlipidemia[ICD10: E78.2] Diagnosis: Other fatigue[ICD10: R53.83] [facility]: 41803 01/06/2018 ([id number]) OFFICE/OUTPATIENT VISIT EST Diagnosis: Type 2 diabetes mellitus with diabetic neuropathy, unspecified[ICD10: E11.40] Diagnosis: Essential (primary) hypertension[ICD10: I10] Diagnosis: Pain in right thigh[ICD10: M79.651] Diagnosis: Pain in left leg[ICD10: M79.605] Diagnosis: Localized swelling, mass and lump, left lower limb[ICD10: R22.42] Diagnosis: OSTEOARTHRISIS MULTI SITES[ICD10: M19.90] Diagnosis: FLU VACCINE[ICD10: Z23] Xiomara Gan [facility] CPT-4: 42062 04/22/2017 ([id number]) OFFICE/OUTPATIENT VISIT EST Diagnosis: Essential (primary) hypertension[ICD10: I10] Diagnosis: Type 2 diabetes mellitus with hyperglycemia[ICD10: E11.65] Diagnosis: Angina pectoris, unspecified[ICD10: I20.9] Xiomara LARA DelphineEdvin ARELYSHAANROBI [facility] CPT-4: 14961 10/10/2016 ([id number]) OFFICE/OUTPATIENT VISIT EST Diagnosis: Cough[ICD10: R05] Diagnosis: Wheezing[ICD10: R06.2] Diagnosis: Chronic obstructive pulmonary disease, unspecified[ICD10: J44.9] Shannan Grimes XIOMARA DelphineEdvin ARELYSHAANROBI [facility] CPT-4: 49230 08/31/2015 OFFICE/OUTPATIENT VISIT EST Diagnosis: Acute bronchitis, unspecified[ICD10: J20.9] Diagnosis: Wheezing[ICD10: R06.2] Kelsie DaMessi LARA DelphineEdvin ARELYSHAANShaheen Magdaleno [facility] CPT-4: 44495 08/29/2015 ([id number]) OFFICE/OUTPATIENT VISIT EST Diagnosis: Type 2 diabetes mellitus with diabetic neuropathy, unspecified[ICD10: E11.40] Diagnosis: Hyperlipidemia, unspecified[ICD10: E78.5] Diagnosis: Essential (primary) hypertension[ICD10: I10] Diagnosis: Encounter for general adult medical examination without abnormal findings[ICD10: Z00.00] Xiomara LARA DelphineEdvin ARELYSHAANROBI [facility] CPT-4: 80382 07/26/2015 OFFICE/OUTPATIENT VISIT EST Diagnosis: Type 2 diabetes mellitus with hyperglycemia[ICD10: E11.65] Diagnosis: Unspecified osteoarthritis, unspecified site[ICD10: M19.90] Diagnosis: Other instability, right knee[ICD10: M25.361] Kelsiesa Humera LARA DelphineEdvin KODAK [facility] CPT-4: 67293 07/24/2015 ([id number]) OFFICE/OUTPATIENT VISIT EST Diagnosis: Pain in leg, unspecified[ICD10: M79.606] Diagnosis: Type 2 diabetes mellitus with diabetic neuropathy, unspecified[ICD10: E11.40] Xiomara LARA DelphineEdvin ARELYSHAANROBI [facility] CPT-4: 00971 05/01/2015 ([id number]) OFFICE/OUTPATIENT VISIT EST Diagnosis: MALAISE AND FATIGUE[ICD9: 780.79] Diagnosis: 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, 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] Diagnosis: CAD[ICD9: 414.00] Diagnosis: ANEMIA NOS[ICD9: 285.9] Xiomara [facility] CPT-4: 43462 01/17/2015 ([id number]) OFFICE/OUTPATIENT VISIT EST Diagnosis: Skin lesion[ICD9: 709.9] Xiomara HAND [facility] CPT-4: 11320 09/29/2014 OFFICE/OUTPATIENT VISIT EST Diagnosis: GASTROENTERITIS[ICD9: 558.9] Diagnosis: GERD[ICD9: 530.81] Kelsie Humera [facility] CPT-[facility]: 36926 02/18/2014 ([id number]) OFFICE/OUTPATIENT VISIT EST Diagnosis: 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I, UNCONTROLLED[ICD9: 250.02] Xiomara BETTENCOURT [facility] CPT-4: 56600 07/29/2013 ([id number]) OFFICE/OUTPATIENT VISIT EST Diagnosis: FLU VACCINE[ICD9: V04.81] Xiomara [facility] CPT-4: 63618 07/22/2013 ([id number]) OFFICE/OUTPATIENT VISIT EST Diagnosis: 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I, UNCONTROLLED[ICD9: 250.02] Diagnosis: HYPERTENSION[ICD9: 401.9] Xiomara [facility] CPT-4: 10841 05/26/2013 ([id number]) OFFICE/OUTPATIENT VISIT EST Diagnosis: MONONEURITIS[ICD9: 355.9] Diagnosis: RESTLESS LEGS SYNDROME[ICD9: 333.94] Diagnosis: HYPERTENSION[ICD9: 401.9] Diagnosis: CAD[ICD9: 414.00] Diagnosis: Weakness[ICD9: 780.79] Xi[facility] CPT-4: 88638 04/28/2013 ([id number]) OFFICE/OUTPATIENT VISIT EST Diagnosis: 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[ICD9: 250.01] Diagnosis: MONONEURITIS[ICD9: 355.9] Diagnosis: HYPERLIPIDEMIA NEC/NOS[ICD9: 272.4] Diagnosis: CAD[ICD9: 414.00] Xiomara Gan [employer] CPT-4: 50827 03/12/2013 OFFICE/OUTPATIENT VISIT NEW Diagnosis: CAD[ICD9: 414.00] Diagnosis: HYPERLIPIDEMIA NEC/NOS[ICD9: 272.4] Diagnosis: HYPERTENSION[ICD9: 401.9] Diagnosis: Neuropathy[ICD9: 355.9] Diagnosis: RESTLESS LEGS SYNDROME[ICD9: 333.94] Xiomara JACKMAN [facility] CPT-4: 71183 03/11/2013 Plan of Care Planned Activity Notes Codes Status Date Visit Diagnosis Plan: Diabetes mellitus type 1, contro lled, insulin dependent Discussion: Lab discussed Accuchecks daily Continue current meds Check CMP and HbA1C in 3mos then fwup ICD-9 : 250.01 ICD-10 : E10.9 01/12/2020 Visit Diagnosis Plan: Encounter for [facility] adult medical examination without abnormal findings [...] WALL COMP renal US L OINC : 50802-6 Pending 12/08/2019 Visit Diagnosis Plan: History of bladder cancer Discus jaswinder: Check CT abdomen/pelvis ICD-9 : V10.51 ICD-10 : Z85.51 12/07/2019 Visit Diagnosis Plan: Esophageal reflux Discussion: Ta kesha omeprazole daily Will try pancreatic enzymes ICD-9 : 530.81 ICD-10 : K21.9 12/07/2019 Appointment: Xiomara Bettencourt [facility] [phone] [id number] [facility] 12/07/2019 Care Plan: CT PELVIS [...] : R06.09 10/27/2019 Appointment: Xiomara Bettencourt WPtel: [facility] FOLLOW UP 10/27/2019 Patient Education: gabapentin- OptimizeRX Coupon [phone] https://www.[employer]/resources/getResource/61/[email or web address] Completed 10/27/2019 Visit Diagnosis Plan: DM w/o [...] : J44.9 10/20/2019 Appointment: Xiomara Bettencourt WPtel: [address] [place], [place] [id number] [place] FOLLOW UP 10/20/2019 Patient Education: furosemide- Opt[employer] Coupon [phone] https://www.[employer]/resources/getResource/61/[email or web address]-[email or web address] Completed 10/20/2019 Visit Diagnosis Plan: Obstructive sleep [...] : I95.9 10/12/2019 Appointment: Xiomara Bettencourt WPtel: [address] [place], [place] [phone] TELEMEDICINE 10/12/2019 Appointment: Xiomara Bettencourt WPtel: [address] [place], [place] [phone] US RESCHEDULED 09/23/2019 Care Plan: COMPREHEN METABOLIC PANEL SERGEI NC : 44150-1 Pending 09/20/2019 Care Plan: LIPID PANEL LOINC : 62292-2 Pending 09/20/2019 Care Plan: A1C HPLC LOINC : 03541-9 Pending 09/20/2019 Care Plan: COMPLETE CBC W/AUTO DIFF WBC LOINC : 38186-8 Pending 09/20/2019 Visit Diagnosis Plan: Upper respiratory infection Disc ussion: discussed that most likely viral. push fluids and rest through the week. patient has left over levaquin at home (5 days worth). instructed patient to start taking if he gets worse later this week and to call us next week if no improvement. ICD-9 : 465.9 ICD-10 : J06.9 06/02/2019 Appointment: Pennie Pizarro [address] [place], [place] [phone] ACUTE ILLNESS 06/02/2019 Visit Diagnosis Plan: Allergic [...] ICD-10 : J30.9 05/13/2019 Appointment: Pennie Pizarro [address] [place], [place] [phone] ACUTE ILLNESS 05/13/2019 Appointment: Xiomara Bettencourt WPtel: [phone] [facility] CANCELED 04/27/2019 Visit Diagnosis Plan: Pneumonia Discussion: will obtai n records from urgent care. instructed to finish out doxy. no rhonchi or crackles auscultated. symbicort sample given to patient with instructions to use bid. call office later this week with new or worsening symptoms. ICD-9 : 486 ICD-10 : J18.9 04/26/2019 Appointment: Pennie Pizarro [address] [place], [place] [phone] FOLLOW UP 04/26/2019 Visit Diagnosis Plan: Acute [...] ICD-10 : J01.90 02/22/2019 Appointment: Pennie Pizarro [address] [place], [place] [phone] ACUTE ILLNESS 02/22/2019 Patient Education: prednisone- Opt[employer]RX Coupon [phone] https://www.[employer]/samplemd/resources/getResource/61/[email or web address]-[email or web address] Completed 02/22/2019 Visit Diagnosis Plan: Cervicalgia Discussion: Check Ce rvical Spine X-ray Will likely need PT ICD-9 : 723.1 ICD-10 : M54.2 11/25/2018 Appointment: Xiomara Bettencourt WPtel: [facility] ACUTE ILLNESS 11/25/2018 Visit Plan: Saline nasal [...] prn. Tyle... 11/19/2018 Appointment: Xiomara Bettencourt WPtel: [address] [place], [place] [phone] ACUTE ILLNESS 11/19/2018 Patient Education: baclofen- OptimizeRX Coupon [phone] [id number] https://www.[employer] Librarymd/resources/getResource/61/[email or web address] Completed 11/19/2018 Visit Diagnosis Plan: Paroxysmal atrial [...] : I10 07/22/2018 Appointment: Xiomara Bettencourt WPtel: [facility] US FOLLOW UP 07/22/2018 Visit Diagnosis Plan: [...] Trial of flomax Call in 1 mo [facility] on how doing Follow Up: 4 months ICD-9 : 600.21 ICD-10 : N40.1 04/21/2018 Appointment: Xiomara Bettencourt [facility]Ptel: [phone] [facility] [place] FOLLOW UP 04/21/2018 Patient Education: Patient [...] ICD-10 : E78.2 01/06/2018 Appointment: Pennie Pizarro [address] [place] [address] MEDICATION REVIEW 01/06/2018 Patient Education: Patient Medication Summary Completed 01/06/2018 Appointment: Xiomara Bettencourt WPtel: [address] [place] [address] NO SHOW 01/05/2018 Appointment: Xiomara Bettencourt WPtel: [address] [place] [address] US CANCELED 12/31/2017 Visit Diagnosis Plan: Actinic keratosis Discussion: Cr yotherapy as above but will see derm if lesions do not resolve ICD-9 : 702.0 ICD-10 : L57.0 10/22/2017 Appointment: Xiomara Bettencourt WPtel: [address] [place] [address] ACUTE ILLNESS 10/22/2017 Patient Education: Patient Medication [...] : M79.605 04/22/2017 Appointment: Xiomara Bettencourt WPtel: [address] [place], [place] [phone] US FOLLOW UP 04/22/2017 Patient Education: Patient Medication Summary Completed 04/22/2017 Patient Education: Patient Medication Summary Completed 04/16/2017 Care Plan: COMPREHEN METABOLIC PANEL SERGEI NC : 84772-9 Pending 04/16/2017 Care Plan: LIPID PANEL LOINC : 67256-9 Pending 04/16/2017 Care Plan: CBC Pending 04/16/2017 Care Plan: A1C HPLC LOINC : 62565-7 Pending 04/16/2017 Referral: Inocencio Goodson WPtel: [id number] [place] Referral Appointment Confirmed 10/14/2016 Visit Diagnosis Plan: Type 2 diabetes mellitus with hy perglycemia Discussion: Continue toujeo Accuchecks BID Follow Up: 4 months ICD-9 : 250.02 ICD-10 : E11.65 10/10/2016 Visit Diagnosis Plan: Angina pectoris, unspecified Dis cussion: Continue imdur and see cardiology To ER if chest pain returns ICD-9 : 413.9 ICD-10 : I20.9 10/10/2016 Appointment: Xiomara Bettencourt WPtel: [id number] [place] FOLLOW UP 10/10/2016 Patient Education: Patient Medication Summary Completed 10/10/2016 Patient Education: Patient Medication Summary Completed 09/16/2016 Care Plan: COMPREHEN METABOLIC PANEL [place] : 72101-4 Pending 09/16/2016 Care Plan: ASSAY THYROID STIM HORMONE Pen ding 09/16/2016 Care Plan: ASSAY OF FREE THYROXINE Pendin g 09/16/2016 Care Plan: LIPID PANEL LOINC : 52231-1 Pending 09/16/2016 Care Plan: CBC Pending 09/16/2016 Care Plan: A1C HPLC LOINC : 18702-6 Pending 09/16/2016 Visit Plan: CXR now to further evaluate symptoms Suspect viral since he has been on 2 rounds of antibiotics If chronic lung disease evident, will consider keeping on symbicort jail Sample inhaler given today with instructions on use Continue oral prednisone, would like to avoid injection if possible considering his DM status and he is stable right now Continue albuterol PRN Will call with CXR results 08/31/2015 Appointment: Shannan Grimes [address] [place] [address] 08/31 confirmed- SP ACUTE ILLNESS 08/31/2015 Patient Education: Patient Medication Summary Completed 08/31/2015 Visit Plan: Albuterol INH via SVN every 4 hours Prednisone 20 mg PO BID Notify for worsening symptoms 08/29/2015 Appointment: Kelsie Grubbs WPtel: [address] [place] [address] ACUTE ILLNESS 08/29/2015 Patient Education: Patient Medication Summary Completed 08/29/2015 Appointment: Xiomara Bettencourt WPtel: 65 [address] [place], [place] [id number] 07/26/2015 Patient Education: Patient Medication Summary Completed 07/26/2015 Visit Plan: Return in am for fasting lab s - CBC, CMP, TSH, Free T4, HgbA1C Change Levemir to Toujeo - Continue 35 Units q am - sample given Start physical Therapy for increased quadriceps strengthening and decreased pain in knees, bilaterally. 07/24/2015 Appointment: Kelsie Grubbs WPtel: [address] [place], [place] [id number] 07/21 appt confirmed cn FOLLOW UP 07/24/19 Appointment: Kelsie Grubbs WPtel: [address] [place] [address] FOLLOW UP 07/24/2015 Patient Education: Patient Medication [...] with insulin 05/01/2015 Appointment: Xiomara Bettencourt WPtel: [address] [place] [address] 04/28 confirmed~sl ACUTE ILLNESS 05/01/2015 Patient Education: Patient Medication Summary Completed 05/01/2015 Patient Education: Patient Medication Summary Completed 01/19/2015 Care Plan: URINALYSIS AUTO W/O SCOPE SERGEI [place] : 39414-5 Pending 01/19/2015 Visit Plan: I have went through his medi cations in past and stopped meds but he adjusts his meds on his own and has restarted some Stop Amaryl Once again discussed not using indomethacin routinely due to taking plavix and aspirin daily and intermediate use is dangerous Check CBC, CMP, TSH, free T4, B12 and HbA1C Patient has seen Cardiology recently but no cardiac cath done--had chemical stress test 01/17/2015 Appointment: Xiomara Bettencourt WPtel: [address] [place], [place] [id number] 01/16 vm cn ACUTE ILLNESS 01/17/2015 Patient Education: Patient Medication Summary Completed 01/17/2015 Visit Plan: See Dr. Garvin for removal 09/29/2014 Appointment: Xiomara Bettencourt WPtel: [address] [place] [address] ACUTE ILLNESS 09/29/2014 Referral: Colt Garvin WPtel: [address] Referral Initiated 09/29/2014 Patient Education: Patient Medication Summary Completed 09/29/2014 Visit Plan: Check CBC, CMP, TSH, free T4 , HbA1C, Lipids Accuchecks daily alternating times Patient has been adjusting own meds and has not taken any cholesterol meds for sometime Will check into surgery on right knee at [facility] Check carotid dopplers 08/04/2014 Appointment: Xiomara Bettencourt WPtel: [address] [place] [address] Annual Well Visit 08/04/2014 Patient Education: Patient Medication Summary Completed 08/04/2014 Appointment: Kelsie Grubbs WPtel: [address] [place] [address] ACUTE ILLNESS 02/18/2014 Patient Education: Patient Medication Summary Completed 02/18/2014 Patient Education: [facility] - Saving [employer] - 18+ - Dynamic Portal ID Completed 02/18/2014 Appointment: Xiomara Bettencourt WPtel: [address] [place] [address] LAB 09/08/2013 Visit Plan: Check fasting lab in 1mo Con tinue Lantus and accuchecks at least BID 07/29/2013 Appointment: Xiomara Bettencourt WPtel: [address] [place] [address] FOLLOW UP 07/29/2013 Patient Education: Patient Medication Summary Completed 07/29/2013 Appointment: Xiomara Bettencourt WPtel: [address] [place] [address] INJECTION 07/22/2013 Patient Education: Patient Medication Summary Completed 07/22/2013 Visit Plan: Pt has been self-adjusting m eds Stop metformin and amaryl Use Levemir 25u sc BID and call in 1wk with BS readings 05/26/2013 Appointment: Xiomara Bettencourt WPtel: [address] [place] [address] FOLLOW UP 05/26/2013 Patient Education: Patient Medication Summary Completed 05/26/2013 Visit Plan: DC Metformin Increase Lantus to 30u sc daily Change lisinopril to lisinopril HCT 20/25mg q AM Continue Gabapentin at current dose 04/28/2013 Appointment: Xiomara Bettencourt WPtel: [address] [place], [place] [id number] FOLLOW UP 04/28/2013 Patient Education: Patient Medication Summary Completed 04/28/2013 Appointment: Xiomara Bettencourt WPtel: [address] [place], [place] [id number] [place] LAB 03/12/2013 Patient Education: Patient Medication Summary Completed 03/12/2013 Visit Plan: Trial of neurontin 400mg q H S Obtain most recent lab results Change levemir to lantus per pt request Pt goes for sleep study tonite 03/11/2013 Appointment: Xiomara Bettencourt WPtel: [phone] [id number] 02/01paperwork mailed 03/10 confirmed with spouse NEW PATIENT 11/2012 Patient Education: Patient Medication Summary Completed 03/11/2013 Instructions Comment . Saline nasal flushes prn. Tylenol/Motr in prn headache. Notify if persists/symptoms worsening. . 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 Check fasting lab [...]
--- NOTE | 2020-02-02 21:31 | ED Fall/Injury ---
General Stated Complaint: FALL Source: patient, EMS Exam Limitations: no limitations History of Present Illness Date Seen by Provider: Feb 02, 2020 Time Seen by Provider: 21:29 Initial Comments To ER with reports of a fall at home going down the stairs on the floor. No loss of consciousness but he did hit his head. Complains of pain to the left shoulder a bit worse than usual, he has a torn rotator cuff this pain seems a little. He also complains of some swelling and pain to the medial aspect of the proximal right tibia. There is a hematoma here, he is on Eliquis for a-fib. Occurred: just prior to arrival Severity: moderate Context: lost balance Associated Symptoms (Fall): No Headache, No Neck Pain Allergies and Home Medications Allergies Coded Allergies: carvedilol (Verified Allergy, Unknown, 04/22/18) Home Medications Amlodipine Besylate 10 Mg Tablet, 10 MG PO HS, (Reported) Apixaban 5 Mg Tablet, 5 MG PO BID Prescribed by: Pushpa CHAVARRIA on 04/24/18 1451 Ascorbate Calcium 500 Mg Tablet, 500 MG PO DAILY, (Reported) Calcium Carb/Mag Ox/Zinc Sulf 1 Each Tablet, 1 TAB PO DAILY, (Reported) Chlordiazepoxide HCl 10 Mg Capsule, 10 MG PO BID PRN for ANXIETY, (Reported) Clopidogrel Bisulfate 75 Mg Tablet, 75 MG PO DAILY, (Reported) Gabapentin 300 Mg Capsule, 300 MG PO HS, (Reported) Ginkgo Biloba Extract 120 Mg Capsule, 120 MG PO DAILY, (Reported) Glimepiride 4 Mg Tablet, 4 MG PO HS, (Reported) Hydrocodone Bit/Acetaminophen 1 Each Tablet, 1 TAB PO Q6H PRN for PAIN-MODERATE, (Reported) Indomethacin 50 Mg Capsule, 50 MG PO BID, (Reported) Insulin Glargine,Hum.rec.anlog 300 Unit/1 Ml Insuln.pen, 38 UNIT SQ DAILY, (Reported) Isosorbide Mononitrate 60 Mg Tab, 60 MG PO DAILY, (Reported) Levothyroxine Sodium 50 Mcg Tablet, 50 MCG PO DAILY, (Reported) Lisinopril 20 Mg Tablet, 20 MG PO BID, (Reported) Metformin HCl 500 Mg Tablet, 500 MG PO BID, (Reported) Nitroglycerin 0.4 Mg Tab.subl, 0.4 MG SL UD PRN for CHEST PAIN, (Reported) [place] 3 Polyunsat Fatty Acids 1,000 Mg Cap, 1,000 MG PO DAILY, (Reported) Omeprazole 20 Mg Capsule.dr, 20 MG PO DAILY, (Reported) Potassium Gluconate 99 Mg Tablet, 99 MG PO DAILY, (Reported) Ranitidine HCl 150 Mg Tablet, 150 MG PO HS, (Reported) Simvastatin 20 Mg Tablet, 20 MG PO HS, (Reported) Turmeric Root Extract 538 Mg Capsule, 538 MG PO DAILY, (Reported) [Super Beta Prostate] , 1 TAB PO DAILY, (Reported) Patient Home Medication List Home Medication List Reviewed: Yes Review of Systems Review of Systems Constitutional: see HPI Eyes: No Symptoms Reported Ears, Nose, Mouth, Throat: no symptoms reported Respiratory: no symptoms reported Cardiovascular: no symptoms reported Genitourinary: no symptoms reported Musculoskeletal: no symptoms reported Skin: no symptoms reported Psychiatric/Neurological: No Symptoms Reported Past [id number] Hx Patient Social History Type Used: Cigarettes Former Smoker, Quit: Jul 07, 1972 2nd Hand Smoke Exposure: No Recent Hopitalizations: No Immunizations Up To Date Tetanus Booster (TDap): Unknown PED Vaccines UTD: No Date of Pneumonia Vaccine: May 07, 2011 Date of Influenza Vaccine: Apr 21, 2018 Seasonal Allergies Seasonal Allergies: No Past Medical History Surgeries: Yes (SURGERY FOR BLADDER CANCER; CARDIAC CATHS-STENTS X 2 AND CABG) Appendectomy, Bladder Surgery, Cardiac, CABG, Coronary Stent, Gallbladder Respiratory: Yes (O2 AT HS) Sleep Apnea, COPD Currently Using CPAP: No Currently Using BIPAP: No Cardiac: Yes (4 VESSEL CABG ) Coronary Artery Disease, Heart Attack, High Cholesterol, Hypertension Neurological: No Reproductive Disorders: No Genitourinary: Yes (BLADDER CANCER) Benign Prostatic Hyperpl Gastrointestinal: Yes (GASTRITIS) Gastroesophageal Reflux Musculoskeletal: Yes (TORN ROTATOR CUFF--NO SURGERY) Arthritis, Gout Endocrine: Yes Diabetes, Insulin dep HEENT: No Cancer: Yes Bladder, Skin Did You Recieve Any Treatments: Yes What Type of Treatment Did You: Chemotherapy, Surgical Intervention Psychosocial: No Integumentary: Yes (skin cancers) Pruritis Blood Disorders: No Adverse Reaction/Blood Tranf: No Family Medical History Completed stroke 19 FATHER Diabetes mellitus 19 MOTHER SON No Pertinent Family Hx Physical Exam Vital Signs Vital Signs - First Documented 02/02/20 21:35 Temp 36.9 Pulse 81 Resp 18 B/P (MAP) 161/47 (85) Pulse Ox 95 O2 Delivery Room Air Capillary Refill : Height, Weight, BMI Height: 5'10.00" Weight: 235lbs. 3.0oz. [id number]; 34.1 BMI Method:Stated General Appearance: WD/WN, no apparent distress HEENT: PERRL/EOMI, normal ENT inspection Respiratory: no respiratory distress, no accessory muscle use Gastrointestinal: normal bowel sounds, non tender, soft Extremities: other (pain left shoulder but no deformity; silver dollar sized hematoma medial and proximal right tibia elevated about 2cm but no open wound. ) Neurologic/Psychiatric: alert, normal mood/affect, oriented x 3 Skin: normal color, warm/dry [place] Coma Score Best Eye Response: (4) Open Spontaneously Best Verbal Response: (5) Oriented Best Motor Response: (6) Obeys Commands [place] Total: 15 Progress/Results/Core Measures Results/Orders My Orders Orders - DORI AGRAWAL APRN Ct Head/Cervical Spine Wo (02/02/20 21:28) Shoulder, Left, 3 Views (02/02/20 21:28) Tibia/Fibula, Right, 2 Views (02/02/20 21:28) Vital Signs/I&O 02/02/20 21:35 Temp 36.9 Pulse 81 Resp 18 B/P (MAP) 161/47 (85) Pulse Ox 95 O2 Delivery Room Air Departure Impression Primary Impression: Traumatic hematoma of right lower leg Qualified Codes: S80.11XA - Contusion of right lower leg, initial encounter Additional Impression: Shoulder sprain Qualified Codes: S43.401A - Unspecified sprain of right shoulder joint, initial encounter Disposition: 01 HOME, SELF-CARE Condition: Stable Departure-Patient Inst. Decision time for Depature: 21:51 Referrals: PAUL PHAN DO (PCP/Family) Primary Care Physician Patient Instructions: HEMATOMA, Shoulder Sprain (DC) Add. Discharge Instructions: Icepack to the hematoma on your leg. Pain medication as directed. Follow-up with your doctor next week. DORI AGRAWAL APRN Feb 02, 2020 21:31
--- OUTSIDE RECORDS SUMMARY | 2020-02-02 21:31 | XMS REPORT | CCD ---
Author Author Sheng Bettencourt D.O. 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 Name Role Phone PP Unavailable CCM Unavailable Summary Purpose Interface Exchange Insurance Providers Payer name Policy type / Coverage type Covered democrat ID Effective Begin Date Effective End Date WPS MEDICARE PART B [place] Medicare Part B [id number] 2018 Unknown [facility] [id number] 2018 Un known Family history Mother Diagnosis Age At Onset Diabetes mellitus Type 2 Unknown Hypercholesterolemia Unknown Father Diagnosis Age At Onset No Family Disease Entered N/A Social History Social History Element Codes Description Effective Dates Marital status Unknown 03/11/2013 Number of children Unknown 4 03/11/2013 Employment Unknown Retired 03/11/[address]: 7453515 Former smoker 03/11/[address]: 628186 Currently drinks alc ohol Socially 03/11/2013 Has [...] Relief 50 mcg/actuation nasal spray,suspensi on RxNorm: 3547937 2 [place] Nasal QPM 01/12/2020 05/11/2020 Active omeprazole 20 mg capsule,delayed release RxNorm: 356278 1 Capsule(s) Oral two times a day 01/12/2020 07/10/2020 Active simvastatin 20 mg tablet RxNorm: 782115 1 Tablet(s) Oral QD 020 04/02/2020 Active Needs updated fasting labs b efore 90 day refill Flomax 0.4 mg capsule RxNorm: 807045 TAKE TWO CAPSULES BY MOUTH EVERY EVENING 11/11/2019 No Stop Date Active glimepiride 2 mg tablet RxNorm: 836448 1 Tablet(s) Oral QD 10/27/19 20 No Stop Date Active gabapentin 400 mg capsule RxNorm: 006638 1 Capsule(s) Oral QPM 10/0604/24/2020 Active potassium chloride ER 20 mEq tablet,extended release RxNorm: 978841 1 Tablet(s) Oral QD to take with lasix 10/20/2019 10/26/2019 Inactive furosemide 40 mg tablet RxNorm: 929892 1 Tablet(s) Oral QAM for swelling 10/20/2019 10/26/2019 Inactive albuterol sulfate HFA 90 mcg/actuation aerosol inhaler RxNor m: 9973886 1-2 Puff(s) Inhalation as needed 10/12/2019 No Stop Date Active Zyrtec 10 mg tablet RxNorm: 0943714 1 Tablet(s) Oral QAM 10/12/2019 No Stop Date Active aspirin 81 mg tablet,delayed release RxNorm: 699817 1 Tablet(s) Oral QD 10/12/2019 No Stop Date Active Symbicort 160 mcg-4.5 mcg/actuation HFA aerosol inhaler RxNo rm: 2577773 2 Puff(s) Inhalation QD 10/12/2019 No Stop Date Active lisinopril 20 mg tablet RxNorm: 847927 1 Tablet(s) Oral QD 10/12/19 20 01/10/2020 Inactive simvastatin 20 mg tablet RxNorm: 531001 1 Tablet(s) Ora l QD Needs updated fasting labs 09/20/2019 01/02/2020 Inactive Needs updated fa sting labs before 90 day refill Flomax 0.4 mg capsule RxNorm: 100898 TAKE TWO CAPSULES BY MOUTH EVERY EVENING 08/03/2019 11/10/2019 Inactive gabapentin 400 mg capsule RxNorm: 795432 TAKE ONE CAPSU LE BY MOUTH EVERY EVENING 08/02/2019 10/26/2019 Inactive simvastatin 20 mg tablet RxNorm: 480461 1 Tablet(s) Ora l QD Needs updated fasting labs 07/21/2019 08/19/2019 Inactive Needs updated fa sting labs before 90 day refill simvastatin 20 mg tablet RxNorm: 226657 1 Tablet(s) Ora l QD Needs updated fasting labs 06/23/2019 07/20/2019 Inactive Needs updated fa sting labs before 90 day refill Flomax 0.4 mg capsule RxNorm: 899595 1 Capsule(s) Oral QD 05/13/2019 10/19/2019 Inactive Flomax 0.4 mg capsule RxNorm: 664645 TAKE TWO CAPSULES BY MOUTH EVERY EVENING 03/19/2019 05/12/2019 Inactive Augmentin 500 mg-125 mg tablet RxNorm: 429745 1 Tablet(s) PO BID 03/03/2019 Inactive baclofen 10 mg tablet RxNorm: 943074 TAKE ONE TABLET BY MOUTH EVERY NIGHT AT BEDTIME FOR PAIN OR SPASMS 01/14/2019 05/12/2019 Inactive Flomax 0.4 mg capsule RxNorm: 719487 TAKE TWO CAPSULES BY MOUTH EVERY EVENING 01/12/2019 03/18/2019 Inactive gabapentin 400 mg capsule RxNorm: 943295 1 Capsule(s) PO QPM 201806/27/2019 Inactive baclofen 10 mg tablet RxNorm: 142369 1 Tablet(s) PO QHS for my n/spasm 12/15/2018 01/13/2019 Inactive simvastatin 20 mg tablet RxNorm: 153915 TAKE ONE TABLET BY MOUT H DAILY 12/11/2018 06/22/2019 Inactive OneTouch Ultra Blue Test Strip RxNorm: Use 1 rigoberto t strip three times daily to check blood sugar (Dx:E11.65) 12/07/2018 No Stop Date Active gabapentin 400 mg capsule RxNorm: 980822 TAKE ONE CAPSU LE BY MOUTH EVERY EVENING 12/04/2018 12/29/2018 Inactive baclofen 10 mg tablet RxNorm: 374943 1 Tablet(s) PO QHS for my n/spasm 11/19/2018 12/15/2018 Inactive Flomax 0.4 mg capsule RxNorm: 146826 2 Capsule(s) PO QPM 09/15/2018 0 12/13/2018 Inactive WOULD LIKE 90DS!!! gabapentin 400 mg capsule RxNorm: 298534 TAKE ONE CAPSU LE BY MOUTH EVERY EVENING 07/21/2018 10/18/2018 Inactive simvastatin 20 mg tablet RxNorm: 329773 1 Tablet(s) PO QD 06/15/2018 12/10/2018 Inactive Flomax 0.4 mg capsule RxNorm: 913028 TAKE TWO CAPSULES BY MOUTH EVERY EVENING 06/02/2018 09/15/2018 Inactive WOULD LIKE 90DS!!! Flomax 0.4 mg capsule RxNorm: 371865 2 Capsule(s) PO QPM 04/21/2018 1 07/20/2017 Inactive simvastatin 20 mg tablet RxNorm: 168071 1 Tablet(s) PO QD Take 1 tablet by mouth daily. Patient due for labwork before further refill. 04/06/20182017 Inactive simvastatin 20 mg tablet RxNorm: 845283 Tablet(s) TAKE ONE TABLET BY MOUTH DAILY 03/25/2018 06/15/2018 Inactive simvastatin 20 mg tablet RxNorm: 580820 Tablet(s) TAKE ONE TABLET BY MOUTH DAILY due for appt 12/29/2017 03/25/2018 Inactive simvastatin 20 mg tablet RxNorm: 293022 TAKE ONE TABLET BY MOUT H DAILY 09/03/2017 12/29/2017 Inactive simvastatin 20 mg tablet RxNorm: 728476 1 Tablet(s) PO QD 10/22/2016 11/18/2018 Inactive isosorbide mononitrate ER 60 mg tablet,extended release 24 h r RxNorm: 443577 1 Tablet(s) PO QD 10/22/2016 04/21/2017 Inactive isosorbide mononitrate ER 60 mg tablet,extended release 24 h r RxNorm: 819418 1 Tablet(s) PO QD 10/10/2016 10/21/2016 Inactive simvastatin 20 mg tablet RxNorm: 531365 1 Tablet(s) PO QD 10/10/2016 10/21/2016 Inactive gabapentin 400 mg capsule RxNorm: 522213 1 Capsule(s) PO QPM 201609/20/2016 Inactive Toujeo SoloStar 300 unit/mL (1.5 mL) subcutaneous insulin pe n RxNorm: 0068471 35 Unit(s) SQ QAM 07/23/2016 07/22/2016 Inactive Toujeo SoloStar 300 unit/mL (1.5 mL) subcutaneous insulin pe n RxNorm: 0096758 40 Unit(s) SQ QAM 09/01/2015 No Stop Date Active Symbicort 160 mcg-4.5 mcg/actuation HFA aerosol inhaler RxNo rm: 4181442 2 Puff(s) INH BID 08/31/2015 09/09/2015 Inactive prednisone 20 mg tablet RxNorm: 546618 1 Tablet(s) PO BID 08/29/2015 09/02/2015 Inactive albuterol sulfate 2.5 mg/3 mL (0.083 %) solution for n ebulization RxNorm: 519485 1 Unit(s) INH Q4H as needed 08/29/2015 10/09/2016 Inactive levothyroxine 75 mcg tablet RxNorm: 484611 1 Tablet(s) PO QD 201507/27/2015 Inactive levothyroxine 75 mcg tablet RxNorm: 210249 1 Tablet(s) PO QD 201511/18/2018 Inactive levothyroxine 75 mcg tablet RxNorm: 000015 1 Tablet(s) PO QD 201507/27/2015 Inactive lisinopril 20 mg-hydrochlorothiazide 25 mg tablet RxNorm: 19 7887 TAKE ONE TABLET BY MOUTH EVERY MORNING. REPLACES PLAIN LISINOPRIL 03/06/2015 04/21/2017 Inactive lisinopril 20 mg-hydrochlorothiazide 25 mg tablet RxNorm: 19 7887 TAKE ONE TABLET BY MOUTH EVERY MORNING. REPLACES PLAIN LISINOPRIL 09/08/2014 03/05/2015 Inactive allopurinol 100 mg tablet RxNorm: 315550 1 Tablet(s) PO BID 015 10/09/2016 Inactive [SAVINGS FOR NON-COVERED [facility] -- BIN:[id number], PCN: [id number], Group: [id number], ID# [id number], Questions: . THIS IS NOT INSURANCE.] levothyroxine 50 mcg tablet RxNorm: 613941 1 Tablet(s) PO QD 201407/26/2015 Inactive [AttnRPh: Saving apply/adjud icate RxGRP:SG20 RxBIN:[id number] RxPCN: ID#:[id number]] Zegerid 40 mg-1.1 gram capsule RxNorm: 469420 1 Capsule(s) PO QD 03/03/2014 Inactive [AttnRPh: Saving apply/adjud icate RxGRP:SG20 RxBIN:[id number] RxPCN:HT ID#:[id number]] ondansetron 8 mg disintegrating tablet RxNorm: 667589 1 Tablet(s) PO Q8H as needed for [...] 07/28/2013 Inactive gabapentin 400 mg capsule RxNorm: 206777 1 Capsule(s) PO QPM 201207/28/2013 Inactive gabapentin 400 mg capsule RxNorm: 021226 1 Capsule(s) PO QPM 201206/26/2013 Inactive lisinopril 20 mg-hydrochlorothiazide 25 mg tablet RxNorm: 82 3971 1 Tablet(s) PO QAM replaces plain lisinopril 04/28/2013 07/29/2013 Inactive gabapentin 400 mg capsule RxNorm: 478670 1 Capsule(s) PO QPM 201204/27/2013 Inactive gabapentin 400 mg capsule RxNorm: 644216 1 Capsule(s) PO QPM 201203/10/2013 Inactive gabapentin 400 mg capsule RxNorm: 176102 1 Capsule(s) PO QPM 201203/14/2013 Inactive Lantus Solostar 100 unit/mL (3 mL) Sub-Q Insulin Pen RxNorm: 017696 20 Unit(s) SQ QPM 03/11/2013 03/15/2013 Inactive Toujeo SoloStar 300 unit/mL (1.5 mL) subcutaneous insulin pe n RxNorm: 1196536 35 Unit(s) SQ QAM No Start Date Active isosorbide mononitrate ER 60 mg tablet,extended release 24 h r RxNorm: 062395 1 Tablet(s) PO QD No Start Date Active Eliquis 5 mg tablet RxNorm: 6617570 1 Tablet(s) PO BID No Start Date Active metformin 500 mg tablet RxNorm: 662678 1 Tablet(s) PO BID No Start Da te Active levothyroxine 50 mcg tablet RxNorm: 401054 1 Tablet(s) PO QD No Start Date Active Norvasc 10 mg tablet RxNorm: 445090 1 Tablet(s) PO QHS No Start Date Active Toujeo SoloStar 300 unit/mL (1.5 mL) subcutaneous insulin pe n RxNorm: 1438890 30 Unit(s) SQ QAM No Start Date Active glimepiride 4 mg tablet RxNorm: 804496 1 Tablet(s) PO QHS No Start Date 07/26/2015 Inactive omeprazole 20 mg capsule,delayed release RxNorm: 534364 1 Capsu le(s) PO QD No Start Date 01/11/2020 Inactive allopurinol 100 mg tablet RxNorm: 812865 1 Tablet(s) PO BID No Star t Date 08/10/2014 Inactive Lantus Solostar 100 unit/mL (3 mL) subcutaneous insulin pen RxNorm: 663659 30 Unit(s) SQ QD No Start Date 08/03/2014 Inactive Levemir FlexTouch 100 unit/mL (3 mL) subcutaneous insulin pe n RxNorm: 617876 25 Unit(s) SQ QAM No Start Date 07/23/2015 Inactive Lantus 100 unit/mL Sub-Q RxNorm: 981281 30 Unit(s) SQ QHS No Start Date 05/25/2013 Inactive Lantus Solostar 100 unit/mL (3 mL) Sub-Q Insulin Pen RxNorm: 600224 20 Unit(s) SQ QPM No Start Date 03/10/2013 Inactive OneTouch Ultra Blue Test Strip RxNorm: Use 1 rigoberto t strip three times daily to check blood sugar (Dx:E11.65) No Start Date 12/06/2018 Inactive Levemir FlexTouch 100 unit/mL (3 mL) subcutaneous insulin pe n RxNorm: 588621 30- 35 Unit(s) SQ QAM No Start Date 07/23/2015 Inactive Levemir Flexpen 100 unit/mL (3 mL) solution subcutaneo us insulin pen RxNorm: 842775 20-25 Unit(s) SQ QD No Start Date 07/28/2013 Inactive lisinopril 20 mg tablet RxNorm: 887914 1 Tablet(s) PO QD No Start D ate 10/11/2019 Inactive indomethacin ER 75 mg capsule,extended release RxNorm: 97459 2 1 Capsule(s) PO QAM No Start Date 04/27/2013 Inactive indomethacin ER 75 mg capsule,extended release RxNorm: 12306 2 1 Capsule(s) PO QD No Start Date 01/16/2015 Inactive Chlortab-4 oral RxNorm: 098823 oral No Start Date 10/11/2019 Inac tive Vitamin D3 5,000 unit tablet RxNorm: 016022 1 Tablet(s) PO QD No St art Date 08/03/2014 Inactive Levemir Flexpen 100 unit/mL (3 mL) solution subcutaneo us insulin Pen RxNorm: 194472 20 Unit(s) SQ QHS No Start Date 03/10/2013 Inactive Vytorin 10 mg-40 mg tablet RxNorm: 8078192 1/2 Tablet(s) PO QD No S tart Date 04/20/2018 Inactive oxymetazoline-menthol 0.05 % nasal spray RxNorm: 3719778 [place] N COTY No Start Date 10/11/2019 Inactive Patient states he ta kes every 10 hours Toujeo SoloStar 300 unit/mL (1.5 mL) subcutaneous insulin pe n RxNorm: 1892238 35 Unit(s) SQ QAM No Start Date 07/22/2016 Inactive Lantus Solostar 100 unit/mL (3 mL) subcutaneous insulin pen RxNorm: 982524 20 Unit(s) SQ QD No Start Date 08/03/2014 Inactive aspirin 81 mg tablet RxNorm: 061930 1 Tablet(s) PO QD No Start Date 0 08/03/2014 Inactive metformin 500 mg tablet RxNorm: 372251 1 Tablet(s) PO BID No Start Date 07/28/2013 Inactive glimepiride 4 mg tablet RxNorm: 708455 1 Tablet(s) PO BID No Start Date 01/16/2015 Inactive glimepiride 4 mg tablet RxNorm: 477255 1 Tablet(s) PO QD No Start D ate 08/03/2014 Inactive levothyroxine 25 mcg tablet RxNorm: 279055 1 Tablet(s) PO QD No Sta rt Date 08/10/2014 Inactive doxycycline oral RxNorm: 19050 oral No Start Date 05/12/2019 Inac tive aspirin 81 mg tablet RxNorm: 226727 1 Tablet(s) PO QD No Start Date 0 07/21/2018 Inactive isosorbide mononitrate ER 60 mg tablet,extended release 24 h r RxNorm: 454438 1 Tablet(s) PO BID No Start Date 01/16/2015 Inactive metformin 500 mg tablet RxNorm: 911084 1 Tablet(s) PO BID No Start Date 04/27/2013 Inactive Plavix 75 mg tablet RxNorm: 867288 1 Tablet(s) PO QD No Start Date Inactive glimepiride 4 mg tablet RxNorm: 854050 1 Tablet(s) PO QPM No Start Date 02/21/2019 Inactive Vytorin 10-40 10 mg-40 mg tablet RxNorm: 7747225 1 Tablet(s) PO QHS No Start Date 08/03/2014 Inactive indomethacin 50 mg capsule RxNorm: 249541 1 Capsule(s) PO QHS No St art Date 01/16/2015 Inactive glimepiride 4 mg tablet RxNorm: 284267 1 Tablet(s) PO BID No Start Date 07/28/2013 Inactive Levemir FlexTouch 100 unit/mL (3 mL) subcutaneous insulin pe n RxNorm: 407950 20 Unit(s) SQ QD No Start Date 04/30/2015 Inactive lisinopril 20 mg tablet RxNorm: 305640 1 Tablet(s) PO BID No Start Date 04/27/2013 Inactive Lantus Solostar SubQ RxNorm: Subcutaneous No Start Date 03/15/2013 I nactive Zantac 150 mg tablet RxNorm: 041127 1 Tablet(s) PO QHS No Start Date 10/11/2019 Inactive allopurinol 300 mg tablet RxNorm: 013117 1 Tablet(s) PO QD No Start Date 08/03/2014 Inactive Fish Oil 1,000 mg capsule RxNorm: 1 Capsule(s) PO QD No Start Date 02/21/2019 Inactive indomethacin 50 mg capsule RxNorm: 451802 1 Capsule(s) PO BID No St art Date 04/20/2018 Inactive levothyroxine 50 mcg tablet RxNorm: 763166 1 Tablet(s) PO QD No Sta rt Date 08/10/2014 Inactive glimepiride 4 mg tablet RxNorm: 789067 1 Tablet(s) PO BID No Start Date 03/15/2013 Inactive indomethacin 50 mg capsule RxNorm: 927894 1 Capsule(s) PO QHS No St art Date 04/27/2013 Inactive Medication Administered No Medication Administered data Immunizations Vaccine Codes Date Status Influenza CVX: 135 04/21/2018 Complete Influenza CVX: 135 04/22/2017 Complete Results Observation Observation Code Item Item Code Result Date S ervice Location [facility] 29858 Cholesterol 209 mg/dL 09/17/2016 Unkno wn [facility] 38187 Triglyceride 111 mg/dL 09/17/2016 Unkn own [facility] 96941 HDL CHOLESTEROL 50 mg/dL 09/17/2016 U nknown [facility] 29167 Chol/HDL Ratio 4.18 ratio 09/17/2016 U nknown [facility] 17868 NON-HDL Chol 159 mg/dL 09/17/2016 Unkn own [facility] 48909 LDL Cholesterol 137 mg/dL 09/17/2016 U nknown MEAN GLUC 2474952 Calc Mean Gluc 151 mg/dL 09/17/2016 Unkn own COMPREHENSIVE METABOLIC 41130 AST 23 U/L 2016 Unknown COMPREHENSIVE METABOLIC 32504 ALT 19 U/L 2016 Unknown COMPREHENSIVE METABOLIC 98935 BUN 15 mg/dL 2016 Unknown COMPREHENSIVE METABOLIC 63521 ALBUMIN 4.3 g/dL 2016 Unknown COMPREHENSIVE METABOLIC 60988 CHLORIDE 103 mmol/L 09/17 Unknown COMPREHENSIVE METABOLIC 77560 Bili Total 0.6 mg/dL 09/17 Unknown COMPREHENSIVE METABOLIC 76916 ALK PHOS 60 U/L 2016 Unknown COMPREHENSIVE METABOLIC 77224 SODIUM 140 mmol/L 09/17 Unknown COMPREHENSIVE METABOLIC 17393 CREATININE 1.03 mg/dL 09/04 Unknown COMPREHENSIVE METABOLIC 75540 CALCIUM 9.5 mg/dL 2016 Unknown COMPREHENSIVE METABOLIC 34581 POTASSIUM 3.9 mmol/L 09/17 Unknown COMPREHENSIVE METABOLIC 32686 Total Protein 6.9 g/dL Unknown COMPREHENSIVE METABOLIC 77101 Glucose 94 mg/dL 2016 Unknown COMPREHENSIVE METABOLIC 75226 Bicarbonate 28 mmol/L 09/04 Unknown COMPREHENSIVE METABOLIC 36584 AGAP 9 mmol/L 2016 Unknown GFR CALC 6686335 GFR Non Afr Amr >60 mL/min 09/17/2016 Un known GFR CALC 0360913 GFR Afr Amr >60 mL/min 09/17/2016 Unknow n THYROID STIMULATING HORMONE 88758 TSH 4.260 uIU/mL 09/17/2016 Unknown GLYCOSYLATED HEMOGLOBIN TEST 19011 Hgb A1c 59222-3 6.9 % 0 09/17/2016 Unknown FREE T4 62074 T4 Free 1.02 ng/dL 09/17/2016 Unknown COMPLETE BLOOD COUNT [id number] WBC 8.6 10e9/L 07/26/19 16 Unknown COMPLETE BLOOD COUNT [id number] RBC 4.86 10e12/L 2015 Unknown COMPLETE BLOOD COUNT 7875490 HGB 14.6 g/dL 6 Unknown COMPLETE BLOOD COUNT 2801520 HCT DET 43.1 % 6 Unknown COMPLETE BLOOD COUNT 8544709 MCV 88.7 fL 6 Unknown COMPLETE BLOOD COUNT 5489951 MCH 30.0 pg 6 Unknown COMPLETE BLOOD COUNT 6631397 MCHC 33.9 g/dL 6 Unknown COMPLETE BLOOD COUNT [id number] PLT 267 10e9/L 07/26/19 16 Unknown COMPLETE BLOOD COUNT [id number] MPV 11.5 fL 6 Unknown COMPLETE BLOOD COUNT 6258593 SAM % 64.8 % 6 Unknown COMPLETE BLOOD COUNT 3679660 LY % 16.8 % 6 Unknown COMPLETE BLOOD COUNT [id number] MON % 12.5 % 6 Unknown COMPLETE BLOOD COUNT 1145635 EOS % 5.6 % 6 Unknown COMPLETE BLOOD COUNT [id number] BASO % 0.3 % 6 Unknown COMPLETE BLOOD COUNT 2650168 RDW 13.4 % 6 Unknown COMPLETE BLOOD COUNT [id number] ABS SAM 5.57 10e9/L 016 Unknown COMPLETE BLOOD COUNT 2127274 ABS LYMPH 1.44 10e9/L 016 Unknown COMPLETE BLOOD COUNT [id number] ABS MONO 1.08 10e9/L 016 Unknown COMPLETE BLOOD COUNT 1845029 ABS EOS 0.48 10e9/L 016 Unknown COMPLETE BLOOD COUNT 5365716 ABS BASO 0.03 10e9/L 016 Unknown COMPLETE BLOOD COUNT [id number] RDW-SD 42.9 fL 6 Unknown PSA EQUIMOLAR MATT 82514 PSA EQ 0.78 NG/ML 6 Unknown THYROID STIMULATING HORMONE 58027 TSH 5.292 uIU/ML 07/26/2015 Unknown GLYCOSYLATED HEMOGLOBIN TEST 58828 A1C HPLC 21753-9 7.0 % 0 07/26/2015 Unknown GFR CALC 5645116 GFR AA >60 ML/MIN 07/26/2015 Unknown GFR CALC 0815594 GFR NON-AA >60 ML/MIN 07/26/2015 Unknown [facility] 25978 HDL TEST 64 MG/DL 07/26/2015 Unknown [facility] 00689 TRIG 58 MG/DL 07/26/2015 Unknown [facility] 17633 TEST LDL 49 MG/DL 07/26/2015 Unknown [facility] 87395 CHOL 125 MG/DL 07/26/2015 Unknown [facility] 33601 RCHOL/HDL 1.95 RATIO 07/26/2015 Unknow n [facility] 28697 NON-HDL CH 61 MG/DL 07/26/2015 Unknow n COMPREHENSIVE METABOLIC 76531 AST 25 U/L 2015 Unknown COMPREHENSIVE METABOLIC 92922 ALT 23 IU/L 2015 Unknown COMPREHENSIVE METABOLIC 78617 BUN 18 MG/DL 2015 Unknown COMPREHENSIVE METABOLIC 67704 ALBUMIN 4.6 GM/DL 2015 Unknown COMPREHENSIVE METABOLIC 66030 CHLORIDE 100 MMOL/L 07/26 Unknown COMPREHENSIVE METABOLIC 68572 BILI TOT 0.5 MG/DL 2015 Unknown COMPREHENSIVE METABOLIC 73281 ALK PHOS 49 U/L 2015 Unknown COMPREHENSIVE METABOLIC 81367 SODIUM 137 MMOL/L 07/26 Unknown COMPREHENSIVE METABOLIC 45702 CREATININE 1.06 MG/DL 07/08 Unknown COMPREHENSIVE METABOLIC 47096 CALCIUM 9.5 MG/DL 2015 Unknown COMPREHENSIVE METABOLIC 98523 POTASSIUM 4.5 MMOL/L 07/26 Unknown COMPREHENSIVE METABOLIC 62676 PROT TOT 6.5 GM/DL 2015 Unknown COMPREHENSIVE METABOLIC 02039 Glucose 109 MG/DL 2015 Unknown COMPREHENSIVE METABOLIC 92173 BICARB 29 MMOL/L 2015 Unknown COMPREHENSIVE METABOLIC 51545 ANION GAP 8 MEQ/L 2015 Unknown FREE T4 01027 FREE T4 1.11 NG/DL 07/26/2015 Unknown CULTURE & SENSITIVITY 67652 PROTEIN UR NEG 015 Unknown CULTURE & SENSITIVITY 26102 HEMGLBN UR TR 015 Unknown CULTURE & SENSITIVITY 79207 GLUCOSE UR NEG 015 Unknown CULTURE & SENSITIVITY 59289 KETONES UR NEG 015 Unknown CULTURE & SENSITIVITY 94308 PH U 6.5 01/25/20 15 Unknown CULTURE & SENSITIVITY 01933 SP GR U 1.013 01/25/20 15 Unknown CULTURE & SENSITIVITY 08144 BILRUBN UR NEG 015 Unknown CULTURE & SENSITIVITY 94378 LEUKO UR NEG 01/25/20 15 Unknown CULTURE & SENSITIVITY 40934 NITRITE UR NEG 015 Unknown MICR CUL? [id number] SP TO JOHANA? NO 01/24/2015 Unknown MICR CUL? 2085821 APPEAR UR NORMAL 01/24/2015 Unknown MICR CUL? [id number] RBC/uL 2.2 01/24/2015 Unknown MICR CUL? [id number] WBC/uL 2.8 01/24/2015 Unknown MICR CUL? 6326739 SQ EPI/uL 1.0 01/24/2015 Unknown MICR CUL? 0731554 HYALCST/uL 0.25 01/24/2015 Unknown MICR CUL? 9832978 WBC /HPF 1 01/24/2015 Unknown MICR CUL? 1284112 RBC /HPF 0 01/24/2015 Unknown GLYCOSYLATED HEMOGLOBIN TEST 36783 A1C HPLC 36141-6 6.6 % 0 01/17/2015 Unknown COMPLETE BLOOD COUNT 6679822 WBC 10.1 10e9/L 015 Unknown COMPLETE BLOOD COUNT [id number] RBC 4.60 10e12/L 2014 Unknown COMPLETE BLOOD COUNT 0393739 HGB 14.0 g/dL 5 Unknown COMPLETE BLOOD COUNT 3664486 HCT DET 39.9 % 5 Unknown COMPLETE BLOOD COUNT 9220064 MCV 86.7 fL 5 Unknown COMPLETE BLOOD COUNT 8298733 MCH 30.4 pg 5 Unknown COMPLETE BLOOD COUNT 6380297 MCHC 35.1 g/dL 5 Unknown COMPLETE BLOOD COUNT 9631103 PLT 252 10e9/L 01/18/20 15 Unknown COMPLETE BLOOD COUNT 7542484 MPV 11.4 fL 5 Unknown COMPLETE BLOOD COUNT 2702997 SAM % 72.9 % 5 Unknown COMPLETE BLOOD COUNT 1747192 LY % 13.6 % 5 Unknown COMPLETE BLOOD COUNT 8346053 MON % 10.2 % 5 Unknown COMPLETE BLOOD COUNT 5184581 EOS % 3.1 % 5 Unknown COMPLETE BLOOD COUNT 0797336 BASO % 0.2 % 5 Unknown COMPLETE BLOOD COUNT 6949505 RDW 13.6 % 5 Unknown COMPLETE BLOOD COUNT 4160101 ABS SAM 7.36 10e9/L 015 Unknown COMPLETE BLOOD COUNT 9210001 ABS LYMPH 1.37 10e9/L 015 Unknown COMPLETE BLOOD COUNT 8970105 ABS MONO 1.03 10e9/L 015 Unknown COMPLETE BLOOD COUNT 9579462 ABS EOS 0.31 10e9/L 015 Unknown COMPLETE BLOOD COUNT 6778393 ABS BASO 0.02 10e9/L 015 Unknown COMPLETE BLOOD COUNT 5832941 RDW-SD 42.4 fL 5 Unknown GFR CALC 1412298 GFR AA 51.0L ML/MIN 01/17/2015 Unknow n GFR CALC 4954578 GFR NON-AA 42.0L ML/MIN 01/17/2015 Unkno wn FREE T4 90276 FREE T4 1.30 NG/DL 01/17/2015 Unknown THYROID STIMULATING HORMONE 58199 TSH 4.029 uIU/ML 01/17/2015 Unknown COMPREHENSIVE METABOLIC 59886 AST 28 U/L 2014 Unknown COMPREHENSIVE METABOLIC 81625 ALT 25 IU/L 2014 Unknown COMPREHENSIVE METABOLIC 71160 BUN 21 MG/DL 2014 Unknown COMPREHENSIVE METABOLIC 24813 ALBUMIN 4.7 GM/DL 2014 Unknown COMPREHENSIVE METABOLIC 29594 CHLORIDE 102 MMOL/L 01/17 Unknown COMPREHENSIVE METABOLIC 34839 BILI TOT 0.6 MG/DL 2014 Unknown COMPREHENSIVE METABOLIC 14665 ALK PHOS 44 U/L 2014 Unknown COMPREHENSIVE METABOLIC 19947 SODIUM 137 MMOL/L 01/17 Unknown COMPREHENSIVE METABOLIC 11565 CREATININE 1.62 MG/DL 01/04 Unknown COMPREHENSIVE METABOLIC 56063 CALCIUM 9.7 MG/DL 2014 Unknown COMPREHENSIVE METABOLIC 45665 POTASSIUM 4.5 MMOL/L 01/17 Unknown COMPREHENSIVE METABOLIC 32560 PROT TOT 6.5 GM/DL 2014 Unknown COMPREHENSIVE METABOLIC 60369 Glucose 136 MG/DL 2014 Unknown COMPREHENSIVE METABOLIC 57707 BICARB 24 MMOL/L 2014 Unknown COMPREHENSIVE METABOLIC 90669 ANION GAP 11 MEQ/L 2014 Unknown VITAMIN B 12 55200 VIT B 12 482 PG/ML 01/17/2015 Unknow n URIC ACID 78768 URIC ACID 8.5 MG/DL 08/09/2014 Unknown COMPREHENSIVE METABOLIC 43355 AST 27 U/L 2014 Unknown COMPREHENSIVE METABOLIC 42860 ALT 26 IU/L 2014 Unknown COMPREHENSIVE METABOLIC 07616 BUN 17 MG/DL 2014 Unknown COMPREHENSIVE METABOLIC 85153 ALBUMIN 5.0 GM/DL 2014 Unknown COMPREHENSIVE METABOLIC 39329 CHLORIDE 101 MMOL/L 08/09 Unknown COMPREHENSIVE METABOLIC 57223 BILI TOT 0.7 MG/DL 2014 Unknown COMPREHENSIVE METABOLIC 03991 ALK PHOS 53 U/L 2014 Unknown COMPREHENSIVE METABOLIC 37256 SODIUM 136 MMOL/L 08/09 Unknown COMPREHENSIVE METABOLIC 42583 CREATININE 1.14 MG/DL 09/2014 Unknown COMPREHENSIVE METABOLIC 44788 CALCIUM 9.8 MG/DL 2014 Unknown COMPREHENSIVE METABOLIC 38355 POTASSIUM 4.1 MMOL/L 08/09 Unknown COMPREHENSIVE METABOLIC 77959 PROT TOT 7.5 GM/DL 2014 Unknown COMPREHENSIVE METABOLIC 01861 Glucose 110 MG/DL 2014 Unknown COMPREHENSIVE METABOLIC 56160 BICARB 30 MMOL/L 2014 Unknown COMPREHENSIVE METABOLIC 25239 ANION GAP 5 MEQ/L 2014 Unknown GFR CALC 7891615 GFR AA >60 ML/MIN 08/09/2014 Unknown GFR CALC 7830747 GFR NON-AA >60 ML/MIN 08/09/2014 Unknown FREE T4 30927 FREE T4 1.14 NG/DL 08/09/2014 Unknown GLYCOSYLATED HEMOGLOBIN TEST 82453 A1C HPLC 52293-4 6.8 % 0 08/09/2014 Unknown COMPLETE BLOOD COUNT 1589245 WBC 5.9 10e9/L 08/09/19 15 Unknown COMPLETE BLOOD COUNT 0753946 RBC 5.04 10e12/L 2014 Unknown COMPLETE BLOOD COUNT 6363275 HGB 15.2 g/dL 5 Unknown COMPLETE BLOOD COUNT 5027422 HCT DET 44.3 % 5 Unknown COMPLETE BLOOD COUNT 8933529 MCV 87.9 fL 5 Unknown COMPLETE BLOOD COUNT 3059003 MCH 30.2 pg 5 Unknown COMPLETE BLOOD COUNT 1007800 MCHC 34.3 g/dL 5 Unknown COMPLETE BLOOD COUNT 7438705 PLT 262 10e9/L 08/09/19 15 Unknown COMPLETE BLOOD COUNT 9270564 MPV 10.9 fL 5 Unknown COMPLETE BLOOD COUNT 8245271 SAM % 58.7 % 5 Unknown COMPLETE BLOOD COUNT 8829750 LY % 21.5 % 5 Unknown COMPLETE BLOOD COUNT 4838188 MON % 14.0 % 5 Unknown COMPLETE BLOOD COUNT 4142002 EOS % 5.3 % 5 Unknown COMPLETE BLOOD COUNT 3911191 BASO % 0.5 % 5 Unknown COMPLETE BLOOD COUNT 7086387 RDW 13.1 % 5 Unknown COMPLETE BLOOD COUNT 0859667 ABS SAM 3.46 10e9/L 015 Unknown COMPLETE BLOOD COUNT [id number] ABS LYMPH 1.27 10e9/L 015 Unknown COMPLETE BLOOD COUNT [id number] ABS MONO 0.83 10e9/L 015 Unknown COMPLETE BLOOD COUNT [id number] ABS EOS 0.31 10e9/L 015 Unknown COMPLETE BLOOD COUNT [id number] ABS BASO 0.03 10e9/L 015 Unknown COMPLETE BLOOD COUNT [id number] RDW-SD 41.2 fL 5 Unknown THYROID STIMULATING HORMONE 38214 TSH 5.395 uIU/ML 08/09/2014 Unknown LIPID GROUP 45896 HDL TEST 52 MG/DL 08/09/2014 Unknown LIPID GROUP 96440 TRIG 113 MG/DL 08/09/2014 Unknown LIPID GROUP 01051 TEST LDL 158 MG/DL 08/09/2014 Unknown LIPID GROUP 29821 CHOL 233 MG/DL 08/09/2014 Unknown LIPID GROUP 85540 RCHOL/HDL 4.48 RATIO 08/09/2014 Unknow n LIPID GROUP 19559 NON-HDL CH 181 MG/DL 08/09/2014 Unknow n COMPLETE BLOOD COUNT [id number] WBC 6.8 10e9/L 09/09/19 14 Unknown COMPLETE BLOOD COUNT [id number] RBC 5.18 10e12/L 2013 Unknown COMPLETE BLOOD COUNT [id number] HGB 15.2 g/dL 4 Unknown COMPLETE BLOOD COUNT [id number] HCT DET 44.7 % 4 Unknown COMPLETE BLOOD COUNT [id number] MCV 86.3 fL 4 Unknown COMPLETE BLOOD COUNT [id number] MCH 29.3 pg 4 Unknown COMPLETE BLOOD COUNT [id number] MCHC 34.0 g/dL 4 Unknown COMPLETE BLOOD COUNT [id number] PLT 236 10e9/L 09/09/19 14 Unknown COMPLETE BLOOD COUNT [id number] MPV 11.0 fL 4 Unknown COMPLETE BLOOD COUNT [id number] SAM % 58.2 % 4 Unknown COMPLETE BLOOD COUNT [id number] LY % 21.9 % 4 Unknown COMPLETE BLOOD COUNT [id number] MON % 12.5 % 4 Unknown COMPLETE BLOOD COUNT [id number] EOS % 7.3 % 4 Unknown COMPLETE BLOOD COUNT [id number] BASO % 0.1 % 4 Unknown COMPLETE BLOOD COUNT [id number] RDW 13.6 % 4 Unknown COMPLETE BLOOD COUNT [id number] ABS SAM 3.96 10e9/L 014 Unknown COMPLETE BLOOD COUNT [id number] ABS LYMPH 1.49 10e9/L 014 Unknown COMPLETE BLOOD COUNT [id number] ABS MONO 0.85 10e9/L 014 Unknown COMPLETE BLOOD COUNT [id number] ABS EOS 0.50 10e9/L 014 Unknown COMPLETE BLOOD COUNT [id number] ABS BASO 0.01 10e9/L 014 Unknown COMPLETE BLOOD COUNT [id number] RDW-SD 42.3 fL 4 Unknown COMPREHENSIVE METABOLIC 48978 AST 27 U/L 2013 Unknown COMPREHENSIVE METABOLIC 95352 ALT 30 IU/L 2013 Unknown COMPREHENSIVE METABOLIC 80582 BUN 16 MG/DL 2013 Unknown COMPREHENSIVE METABOLIC 91101 ALBUMIN 4.9 GM/DL 2013 Unknown COMPREHENSIVE METABOLIC 17910 CHLORIDE 99 MMOL/L 2013 Unknown COMPREHENSIVE METABOLIC 39602 BILI TOT 0.7 MG/DL 2013 Unknown COMPREHENSIVE METABOLIC 90064 ALK PHOS 53 U/L 2013 Unknown COMPREHENSIVE METABOLIC 97736 SODIUM 137 MMOL/L 09/08 Unknown COMPREHENSIVE METABOLIC 80944 CREATININE 1.01 MG/DL 11/2013 Unknown COMPREHENSIVE METABOLIC 27109 CALCIUM 10.0 MG/DL 09/08 Unknown COMPREHENSIVE METABOLIC 47686 POTASSIUM 4.4 MMOL/L 09/08 Unknown COMPREHENSIVE METABOLIC 04297 PROT TOT 7.1 GM/DL 2013 Unknown COMPREHENSIVE METABOLIC 95137 Glucose 148 MG/DL 2013 Unknown COMPREHENSIVE METABOLIC 62376 BICARB 30 MMOL/L 2013 Unknown COMPREHENSIVE METABOLIC 68184 ANION GAP 8 MEQ/L 2013 Unknown GFR CALC 1904474 GFR AA >60 ML/MIN 09/08/2013 Unknown GFR CALC 3502775 GFR NON-AA >60 ML/MIN 09/08/2013 Unknown FREE T4 38705 FREE T4 1.08 NG/DL 09/08/2013 Unknown GLYCOSYLATED HEMOGLOBIN TEST 36733 A1C HPLC 32737-4 7.3 % 0 09/08/2013 Unknown THYROID STIMULATING HORMONE 99308 TSH 5.454 uIU/ML 09/08/2013 Unknown LIPID GROUP 96021 HDL TEST 59 MG/DL 09/08/2013 Unknown LIPID GROUP 88757 TRIG 92 MG/DL 09/08/2013 Unknown LIPID GROUP 47687 TEST LDL 83 MG/DL 09/08/2013 Unknown LIPID GROUP 72244 CHOL 160 MG/DL 09/08/2013 Unknown LIPID GROUP 16340 RCHOL/HDL 2.71 RATIO 09/08/2013 Unknow n VITAMIN B 12 FOLIC ACID 75113|68612 VIT B 12 467 PG/ML 12/2012 Unknown VITAMIN B 12 FOLIC ACID 67403|10300 FOLIC ACID 12.2 NG/ML Unknown VITAMIN B 12 FOLIC ACID 66342|71900 VIT B 12 467 PG/ML 12/2012 Unknown THYROID STIMULATING HORMONE 26676 TSH 4.557 uIU/ML 03/12/2013 Unknown HEMOGLOBIN A1C (GLYCOSYLATED) 6221228 A1C HPLC 79468-6 7.6 % 03/12/2013 Unknown VITAMIN D TOTAL (25 HYDROXY) 27615 VIT D TOTL 17 NG/ML 03/12/2013 Unknown FREE T4 56057 FREE T4 1.07 NG/DL 03/12/2013 Unknown URIC ACID 54074 URIC ACID 5.2 MG/DL 03/12/2013 Unknown Procedures Procedure Codes Date PPPS, subseq visit CPT-4: G0439 01/12/2020 THER/PROPH/DIAG INJ SC/IM CPT-4: 72863 05/13/2019 TRIAMCINOLONE ACET INJ NOS CPT-4: J3301 05/13/2019 DEXAMETHASONE SODIUM PHOS CPT-4: J1100 05/13/2019 THER/PROPH/DIAG INJ SC/IM CPT-4: 93240 02/22/2019 TRIAMCINOLONE ACET INJ NOS CPT-4: J3301 02/22/2019 FLU VACC PRSV FREE INC ANTIG 65 AND OLDER CPT-4: 87228 04/21/2018 ADMIN INFLUENZA VIRUS VAC CPT-4: G0008 04/21/2018 PRESCRIP TRANSMIT VIA ERX SY CPT-4: G8553 04/21/2018 DESTRUCT PREMALG LESION (Cryosurgery) CPT-4: 83462 FLU VACC PRSV FREE INC ANTIG 65 AND OLDER CPT-4: 93719 04/22/2017 ADMIN INFLUENZA VIRUS VAC CPT-4: G0008 04/22/2017 PRESCRIP TRANSMIT VIA ERX SY CPT-4: G8553 10/10/2016 PRESCRIP TRANSMIT VIA ERX SY CPT-4: G8553 08/29/2015 ROUTINE VENIPUNCTURE CPT-4: 27512 07/26/2015 ASSAY OF FREE THYROXINE CPT-4: 91104 07/26/2015 ASSAY THYROID STIM HORMONE CPT-4: 66915 07/26/2015 COMPREHEN METABOLIC PANEL CPT-4: 11116 07/26/2015 COMPLETE CBC W/AUTO DIFF WBC CPT-4: 01704 07/26/2015 LIPID PANEL CPT-4: 09413 07/26/2015 ASSAY OF PSA TOTAL CPT-4: 91711 07/26/2015 A1C HPLC CPT-4: 55552 07/26/2015 ROUTINE VENIPUNCTURE CPT-4: 43685 01/17/2015 ASSAY OF FREE THYROXINE CPT-4: 60859 01/17/2015 ASSAY THYROID STIM HORMONE CPT-4: 04439 01/17/2015 COMPREHEN METABOLIC PANEL CPT-4: 47040 01/17/2015 COMPLETE CBC W/AUTO DIFF WBC CPT-4: 78856 01/17/2015 A1C HPLC CPT-4: 96243 01/17/2015 VITAMIN B-12 CPT-4: 14150 01/17/2015 PPPS, subseq visit CPT-4: G0439 08/04/2014 PRESCRIP TRANSMIT VIA ERX SY CPT-4: G8553 02/18/2014 FLUZONE, 5ML (Medicare) CPT-4: Q2038 07/22/2013 ADMIN INFLUENZA VIRUS VAC CPT-4: G0008 07/22/2013 PRESCRIP TRANSMIT VIA ERX SY CPT-4: G8553 04/28/2013 ROUTINE VENIPUNCTURE CPT-4: 64754 03/12/2013 VITAMIN D TOTAL (25 HYDROXY) CPT-4: 02957 03/12/2013 VITAMIN B 12 FOLIC ACID CPT-4: 81057|91911 03/12/2013 A1C GLYCOSYLATED HEMOGLOBIN TEST CPT-4: 26372 013 ASSAY OF BLOOD/URIC ACID CPT-4: 24012 03/12/2013 ASSAY OF FREE THYROXINE CPT-4: 65913 03/12/2013 ASSAY THYROID STIM HORMONE CPT-4: 87591 03/12/2013 CUR TOBACCO NON-USER CPT-4: G8457 03/11/2013 PRESCRIP TRANSMIT VIA ERX SY CPT-4: G8553 03/11/2013 Vital Signs Date Vital 01/12/2020 Blood Pressure 1: 126/84 Code: 8480-6 BMI: 37.5 Code: 90782-2 Heart Rate 1: 80 bpm Height: 5'9" [...] 1: 156/70 Code: 8480-6 BMI: 35.0 Code: 71177-3 Heart Rate 1: 68 bpm Height: 5'10" Respiratory Rate: 20 bpm SpO2: 95% Tempera ture: 36.5 (C) / 97.7 (F) Weight: 244 lbs 04/21/2018 Blood Pressure 1: 124/80 Code: 8480-6 BMI: 34.4 Code: 59345-6 Heart Rate 1: 80 bpm Height: 5'10" Respiratory Rate: 20 bpm SpO2: 96% Tempera ture: 37.0 (C) / 98.6 (F) Weight: 240 lbs 01/06/2018 Blood Pressure 1: 138/82 Code: 8480-6 BMI: 33.9 Code: 61110-0 Heart Rate 1: 96 bpm Height: 5'10" Respiratory Rate: 24 bpm SpO2: 98% Tempera ture: 35.9 (C) / 96.6 (F) Weight: 236 lbs 10/22/2017 Blood Pressure 1: 144/70 Code: 8480-6 BMI: 34.7 Code: 22238-4 Heart Rate 1: 72 bpm Height: 5'10" Respiratory Rate: 20 bpm SpO2: 96% Tempera ture: 36.9 (C) / 98.4 (F) Weight: 242 lbs 04/22/2017 Blood Pressure 1: 146/82 Code: 8480-6 BMI: 32.9 Code: 20896-7 Heart Rate 1: 104 bpm Height: 5'10" Respiratory Rate: 20 bpm SpO2: 95% Tempera ture: 36.9 (C) / 98.5 (F) Weight: 229 lbs 10/10/2016 Blood Pressure 1: 124/64 Code: 8480-6 BMI: 32.9 Code: 66793-2 Heart Rate 1: 64 bpm Height: 5'10" [...] 1: 146/90 Code: 8480-6 BMI: 34.1 Code: 42849-2 Heart Rate 1: 80 bpm Height: 5'10" Respiratory Rate: 20 bpm Temperature: 36 .8 (C) / 98.2 (F) Weight: 238 lbs 01/17/2015 Blood Pressure 1: 116/60 Code: 8480-6 BMI: 32.7 Code: 06696-9 Heart Rate 1: 84 bpm Height: 5'10" Respiratory Rate: 20 bpm Temperature: 36 .7 (C) / 98.0 (F) Weight: 228 lbs 09/29/2014 Blood Pressure 1: 136/78 Code: 8480-6 BMI: 33.9 Code: 51064-9 Heart Rate 1: 80 bpm Height: 5'10" Respiratory Rate: 20 bpm Temperature: 36 .6 (C) / 97.9 (F) Weight: 236 lbs 08/04/2014 Blood Pressure 1: 132/70 Code: 8480-6 BMI: 32.9 Code: 87380-1 Heart Rate 1: 72 bpm Height: 5'10" Respiratory Rate: 20 bpm Temperature: 36 .7 (C) / 98.0 (F) Weight: 229 lbs 02/18/2014 Blood Pressure 1: 124/82 Code: 8480-6 Heart Rate 1: 82 bpm Respiratory Rate: 18 bpm Temperature: 36.4 (C) / 97.5 (F) Weight: 232 lbs 07/29/2013 Blood Pressure 1: 146/80 Code: 8480-6 BMI: 34.1 Code: 83377-0 Heart Rate 1: 64 bpm Height: 5'10" Respiratory Rate: 20 bpm Temperature: 36 .9 (C) / 98.5 (F) Weight: 238 lbs 05/26/2013 Blood Pressure 1: 142/90 Code: 8480-6 BMI: 34.0 Code: 10324-4 Heart Rate 1: 84 bpm Height: 5'10" Respiratory Rate: 20 bpm Temperature: 36 .7 (C) / 98.0 (F) Weight: 237 lbs 04/28/2013 Blood Pressure 1: 118/78 Code: 8480-6 BMI: 32.9 Code: 12029-8 Heart Rate 1: 74 bpm Height: 5'10" Respiratory Rate: 20 bpm Temperature: 36 .1 (C) / 97.0 (F) Weight: 229 lbs 03/11/2013 Blood Pressure 1: 146/80 Code: 8480-6 BMI: 31.5 Code: 89973-4 Heart Rate 1: 80 bpm Height: 6' [...] care Encounters Encounter Performer Location Codes Date ([id number]) OFFICE/OUTPATIENT VISIT EST Diagnosis: Esophageal reflux[ICD10: K21.9] Diagnosis: History of bladder cancer[ICD10: Z85.51] Xiomara BETTENCOURT DO [employer] CPT-4: 55256 12/07/2019 ([id number]) OFFICE/OUTPATIENT VISIT EST Diagnosis: DM w/o complication type II, uncontrolled[ICD10: E11.65] Diagnosis: Other dyspnea and respiratory abnormality[ICD10: R06.09] Xiomara BETTENCOURT DO [employer] CPT-4: 70965 10/27/2019 ([id number]) OFFICE/OUTPATIENT VISIT EST Diagnosis: Chronic obstructive pulmonary disease, unspecified[ICD10: J44.9] Diagnosis: DM w/o complication type II, uncontrolled[ICD10: E11.65] Diagnosis: Edema[ICD10: R60.9] [facility] CPT-[facility]: 38504 10/20/2019 ([id number]) OFFICE/OUTPATIENT VISIT EST Diagnosis: Other dyspnea and respiratory abnormality[ICD10: R06.09] Diagnosis: Obstructive sleep apnea[ICD10: G47.33] Diagnosis: Hypotension[ICD10: I95.9] Xiomara Bettencourt [facility] CPT -4: 54033 10/12/2019 ([id number]) OFFICE/OUTPATIENT VISIT EST Diagnosis: Upper respiratory infection[ICD10: J06.9] Pennie [facility] CPT-4: 40409 06/02/2019 ([id number]) OFFICE/OUTPATIENT VISIT EST Diagnosis: Sinusitis[ICD10: J32.9] Diagnosis: Allergic rhinitis[ICD10: J30.9] Pennie [facility] CPT-4: 46414 05/13/2019 ([id number]) OFFICE/OUTPATIENT VISIT EST Diagnosis: Pneumonia[ICD10: J18.9] Pennie [facility] CPT-4: 82760 04/26/2019 ([id number]) OFFICE/OUTPATIENT VISIT EST Diagnosis: Acute sinusitis, unspecified[ICD10: J01.90] Pennie BETTENCOURT [facility] CPT-4: 22632 02/22/2019 ([id number]) OFFICE/OUTPATIENT VISIT EST Diagnosis: Cervicalgia[ICD10: M54.2] Xiomara [facility] CPT-4: 45832 11/25/2018 ([id number]) OFFICE/OUTPATIENT VISIT EST Diagnosis: Acute sinusitis, unspecified[ICD10: J01.90] Diagnosis: Myalgia, unspecified site[ICD10: M79.10] Diagnosis: Cervicalgia[ICD10: M54.2] Xiomara [facility] CPT-4: 66885 11/19/2018 ([id number]) OFFICE/OUTPATIENT VISIT EST Diagnosis: Low back pain[ICD10: M54.5] Diagnosis: Essential (primary) hypertension[ICD10: I10] Diagnosis: 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, 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] Diagnosis: Paroxysmal atrial fibrillation[ICD10: I48.0] [facility] CPT-[facility]: 06435 07/22/2018 ([id number]) OFFICE/OUTPATIENT VISIT EST Diagnosis: Type 2 diabetes mellitus with diabetic neuropathy, unspecified[ICD10: E11.40] Diagnosis: Hyperlipidemia, unspecified[ICD10: E78.5] Diagnosis: Essential (primary) hypertension[ICD10: I10] Diagnosis: Chronic kidney disease, stage 1[ICD10: N18.1] Diagnosis: Benign prostatic hyperplasia with lower urinary tract symptoms[ICD10: N40.1] Diagnosis: FLU VACCINE[ICD10: Z23] Xiomara Gan [facility] CPT-4: 44994 04/21/2018 OFFICE/OUTPATIENT VISIT EST Diagnosis: Type 2 diabetes mellitus with hyperglycemia[ICD10: E11.65] Diagnosis: Essential (primary) hypertension[ICD10: I10] Diagnosis: Mixed hyperlipidemia[ICD10: E78.2] Diagnosis: Other fatigue[ICD10: R53.83] [facility]: 14894 01/06/2018 ([id number]) OFFICE/OUTPATIENT VISIT EST Diagnosis: Type 2 diabetes mellitus with diabetic neuropathy, unspecified[ICD10: E11.40] Diagnosis: Essential (primary) hypertension[ICD10: I10] Diagnosis: Pain in right thigh[ICD10: M79.651] Diagnosis: Pain in left leg[ICD10: M79.605] Diagnosis: Localized swelling, mass and lump, left lower limb[ICD10: R22.42] Diagnosis: OSTEOARTHRISIS MULTI SITES[ICD10: M19.90] Diagnosis: FLU VACCINE[ICD10: Z23] Xiomara Gan [facility] CPT-4: 78075 04/22/2017 ([id number]) OFFICE/OUTPATIENT VISIT EST Diagnosis: Essential (primary) hypertension[ICD10: I10] Diagnosis: Type 2 diabetes mellitus with hyperglycemia[ICD10: E11.65] Diagnosis: Angina pectoris, unspecified[ICD10: I20.9] Xiomara LARA DelphineEdvin ARELYSHAANROBI [employer] [facility] CPT-4: 05851 10/10/2016 ([id number]) OFFICE/OUTPATIENT VISIT EST Diagnosis: Cough[ICD10: R05] Diagnosis: Wheezing[ICD10: R06.2] Diagnosis: Chronic obstructive pulmonary disease, unspecified[ICD10: J44.9] Shannan Grimes XIOMARA DelphineEdvin ARELYSHAANROBI [employer] [facility] CPT-4: 18372 08/31/2015 OFFICE/OUTPATIENT VISIT EST Diagnosis: Acute bronchitis, unspecified[ICD10: J20.9] Diagnosis: Wheezing[ICD10: R06.2] Kelsie DaMessi LARA DelphineEdvin ARELYSHAANShaheen Magdaleno [employer] [facility] CPT-4: 57544 08/29/2015 ([id number]) OFFICE/OUTPATIENT VISIT EST Diagnosis: Type 2 diabetes mellitus with diabetic neuropathy, unspecified[ICD10: E11.40] Diagnosis: Hyperlipidemia, unspecified[ICD10: E78.5] Diagnosis: Essential (primary) hypertension[ICD10: I10] Diagnosis: Encounter for general adult medical examination without abnormal findings[ICD10: Z00.00] Xiomara LARA DelphineEdvin ARELYSHAANROBI [employer] [facility] CPT-4: 52101 07/26/2015 OFFICE/OUTPATIENT VISIT EST Diagnosis: Type 2 diabetes mellitus with hyperglycemia[ICD10: E11.65] Diagnosis: Unspecified osteoarthritis, unspecified site[ICD10: M19.90] Diagnosis: Other instability, right knee[ICD10: M25.361] Kelsiesa Humera LARA DelphineEdvin KODAK [employer] [facility] CPT-4: 94916 07/24/2015 ([id number]) OFFICE/OUTPATIENT VISIT EST Diagnosis: Pain in leg, unspecified[ICD10: M79.606] Diagnosis: Type 2 diabetes mellitus with diabetic neuropathy, unspecified[ICD10: E11.40] Xiomara LARA DelphineEdvin ARELYSHAANROBI [employer] [facility] CPT-4: 17550 05/01/2015 ([id number]) OFFICE/OUTPATIENT VISIT EST Diagnosis: MALAISE AND FATIGUE[ICD9: 780.79] Diagnosis: 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, 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] Diagnosis: CAD[ICD9: 414.00] Diagnosis: ANEMIA NOS[ICD9: 285.9] [facility]ara [facility] CPT-4: 87269 01/17/2015 ([id number]) OFFICE/OUTPATIENT VISIT EST Diagnosis: Skin lesion[ICD9: 709.9] Xiomara HAND [facility] CPT-4: 10870 09/29/2014 OFFICE/OUTPATIENT VISIT EST Diagnosis: GASTROENTERITIS[ICD9: 558.9] Diagnosis: GERD[ICD9: 530.81] Kelsie Humera XI[facility] CPT-4: 14228 02/18/2014 ([id number]) OFFICE/OUTPATIENT VISIT EST Diagnosis: 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I, UNCONTROLLED[ICD9: 250.02] Xiomara BETTENCOURT [facility] CPT-4: 23327 07/29/2013 ([id number]) OFFICE/OUTPATIENT VISIT EST Diagnosis: FLU VACCINE[ICD9: V04.81] Xiomara MAGALLON [facility] CPT-4: 49893 07/22/2013 ([id number]) OFFICE/OUTPATIENT VISIT EST Diagnosis: 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I, UNCONTROLLED[ICD9: 250.02] Diagnosis: HYPERTENSION[ICD9: 401.9] Xiomara MAGALLON [facility] CPT-4: 56339 05/26/2013 ([id number]) OFFICE/OUTPATIENT VISIT EST Diagnosis: MONONEURITIS[ICD9: 355.9] Diagnosis: RESTLESS LEGS SYNDROME[ICD9: 333.94] Diagnosis: HYPERTENSION[ICD9: 401.9] Diagnosis: CAD[ICD9: 414.00] Diagnosis: Weakness[ICD9: 780.79] Xiomara [facility] CPT-4: 58355 04/28/2013 ([id number]) OFFICE/OUTPATIENT VISIT EST Diagnosis: 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[ICD9: 250.01] Diagnosis: MONONEURITIS[ICD9: 355.9] Diagnosis: HYPERLIPIDEMIA NEC/NOS[ICD9: 272.4] Diagnosis: CAD[ICD9: 414.00] Xiomara Gan [employer] CPT-4: 24049 03/12/2013 OFFICE/OUTPATIENT VISIT NEW Diagnosis: CAD[ICD9: 414.00] Diagnosis: HYPERLIPIDEMIA NEC/NOS[ICD9: 272.4] Diagnosis: HYPERTENSION[ICD9: 401.9] Diagnosis: Neuropathy[ICD9: 355.9] Diagnosis: RESTLESS LEGS SYNDROME[ICD9: 333.94] Xiomara JACKMAN [employer] CPT-4: 46801 03/11/2013 Plan of Care Planned Activity Notes Codes Status Date Visit Diagnosis Plan: Diabetes mellitus type 1, contro lled, insulin dependent Discussion: Lab discussed Accuchecks daily Continue current meds Check CMP and HbA1C in 3mos then fwup ICD-9 : 250.01 ICD-10 : E10.9 01/12/2020 Visit Diagnosis Plan: Encounter for [facility] adult medical examination without abnormal findings Discussion: [...] WALL COMP renal US L OINC : 30633-7 Pending 12/08/2019 Visit Diagnosis Plan: History of bladder cancer Discus jaswinder: Check CT abdomen/pelvis ICD-9 : V10.51 ICD-10 : Z85.51 12/07/2019 Visit Diagnosis Plan: Esophageal reflux Discussion: Ta kesha omeprazole daily Will try pancreatic enzymes ICD-9 : 530.81 ICD-10 : K21.9 12/07/2019 Appointment[facility]ten[facility] [phone] [facility] [facility] 12/07/2019 Care Plan: CT [...] R06.09 10/27/2019 Appointment: Xiomara Bettencourt [facility] FO[facility] 10/27/2019 Patient Education: gabapentin- [employer] Coupon [id number] [email or web address]/resources/[email or web address] Completed 10/27/2019 Visit Diagnosis Plan: DM w/o [...] : J44.9 10/20/2019 Appointment: Xiomara Bettencourt WPtel: [address] [place], [place] [address] [place] FOLLOW UP 10/20/2019 Patient Education: furosemide- [employer] Coupon [phone] https://[email or web address]/[email or web address]/resources/getResource/61/[email or web address] Completed 10/20/2019 Visit Diagnosis Plan: Obstructive sleep [...] : I95.9 10/12/2019 Appointment: Xiomara Bettencourt WPtel: [address] [place], [place] [phone] TELEMEDICINE 10/12/2019 Appointment: Xiomara Bettencourt WPtel: [address] [place], [place] [phone] [place] RESCHEDULED 09/23/2019 Care Plan: COMPREHEN METABOLIC PANEL SERGEI NC : 17467-1 Pending 09/20/2019 Care Plan: LIPID PANEL LOINC : 43029-0 Pending 09/20/2019 Care Plan: A1C HPLC LOINC : 10983-2 Pending 09/20/2019 Care Plan: COMPLETE CBC W/AUTO DIFF WBC LOINC : 22198-5 Pending 09/20/2019 Visit Diagnosis Plan: Upper respiratory infection Disc ussion: discussed that most likely viral. push fluids and rest through the week. patient has left over levaquin at home (5 days worth). instructed patient to start taking if he gets worse later this week and to call us next week if no improvement. ICD-9 : 465.9 ICD-10 : J06.9 06/02/2019 Appointment: Pennie Pizarro [address] [place], [place] [phone] ACUTE ILLNESS 06/02/2019 Visit Diagnosis Plan: Allergic [...] ICD-10 : J30.9 05/13/2019 Appointment: Pennie Pizarro [address] [place], [place] [phone] ACUTE ILLNESS 05/13/2019 Appointment: Xiomara Bettencourt WPtel: [phone] [facility] CANCELED 04/27/2019 Visit Diagnosis Plan: Pneumonia Discussion: will obtai n records from urgent care. instructed to finish out doxy. no rhonchi or crackles auscultated. symbicort sample given to patient with instructions to use bid. call office later this week with new or worsening symptoms. ICD-9 : 486 ICD-10 : J18.9 04/26/2019 Appointment: Pennie Pizarro [address] [place], [place] [phone] FOLLOW UP 04/26/2019 Visit Diagnosis Plan: Acute [...] ICD-10 : J01.90 02/22/2019 Appointment: Pennie Pizarro [address] [place], [place] [phone] ACUTE ILLNESS 02/22/2019 Patient Education: prednisone- [employer] Coupon [phone] [email or web address]/resources/getResource/61/[email or web address] Completed 02/22/2019 Visit Diagnosis Plan: Cervicalgia Discussion: Check Ce rvical Spine X-ray Will likely need PT ICD-9 : 723.1 ICD-10 : M54.2 11/25/2018 Appointment: Xiomara Bettencourt WPtel: [facility] ACUTE ILLNESS 11/25/2018 Visit Plan: Saline nasal [...] prn. Tyle... 11/19/2018 Appointment: Xiomara Bettencourt WPtel: [address] [place], [place] [id number] ACUTE ILLNESS 11/19/2018 Patient Education: baclofen- [employer] Coupon [id number] [email or web address]/resources/getResource/61/[email or web address] Completed 11/19/2018 Visit Diagnosis Plan: Paroxysmal atrial [...] I10 07/22/2018 Appointment: Xiomara Bettencourt WPtel: [facility] US FOLLOW UP 07/22/2018 Visit Diagnosis Plan: [...] Trial of flomax Call in [address] [facility] on how doing Follow Up: 4 months ICD-9 : 600.21 ICD-10 : N40.1 04/21/2018 Appointment: Xiom[facility] Bettencourt [facility] [phone] [facility] [facility] FOLLOW UP 04/21/2018 Patient Education: [...] ICD-10 : E78.2 01/06/2018 Appointment: Pennie Pizarro [address] [place] [address] MEDICATION REVIEW 01/06/2018 Patient Education: Patient Medication Summary Completed 01/06/2018 Appointment: Xiomara Bettencourt WPtel: [address] [place] [address] NO SHOW 01/05/2018 Appointment: Xiomara Bettencourt WPtel: [address] [place] [address] [place] CANCELED 12/31/2017 Visit Diagnosis Plan: Actinic keratosis Discussion: Cr yotherapy as above but will see derm if lesions do not resolve ICD-9 : 702.0 ICD-10 : L57.0 10/22/2017 Appointment: Xiomara Bettencourt WPtel: [address] [place] [address] ACUTE ILLNESS 10/22/2017 Patient Education: Patient Medication [...] : M79.605 04/22/2017 Appointment: Xiomara Bettencourt WPtel: [address] [place], [place] [phone] [place] FOLLOW UP 04/22/2017 Patient Education: Patient Medication Summary Completed 04/22/2017 Patient Education: Patient Medication Summary Completed 04/16/2017 Care Plan: COMPREHEN METABOLIC PANEL SERGEI NC : 77611-7 Pending 04/16/2017 Care Plan: LIPID PANEL LOINC : 37998-8 Pending 04/16/2017 Care Plan: CBC Pending 04/16/2017 Care Plan: A1C HPLC LOINC : 75144-5 Pending 04/16/2017 Referral: Inocencio [facility] [address] [facility] [facility] App[facility]ment Confirmed 10/14/2016 Visit Diagnosis Plan: Type 2 diabetes mellitus with hy perglycemia Discussion: Continue toujeo Accuchecks BID Follow Up: 4 months ICD-9 : 250.02 ICD-10 : E11.65 10/10/2016 Visit Diagnosis Plan: Angina pectoris, unspecified Dis cussion: Continue imdur and see cardiology To ER if chest pain returns ICD-9 : 413.9 ICD-10 : I20.9 10/10/2016 Appointment: Xiomara Bettencourt WPtel: [facility] US FOLLOW UP 10/10/2016 Patient Education: Patient Medication Summary Completed 10/10/2016 Patient Education: Patient Medication Summary Completed 09/16/2016 Care Plan: COMPREHEN METABOLIC PANEL SREGEI NC : 61326-8 Pending 09/16/2016 Care Plan: ASSAY THYROID STIM HORMONE Pen ding 09/16/2016 Care Plan: ASSAY OF FREE THYROXINE Pendin g 09/16/2016 Care Plan: LIPID PANEL LOINC : 63850-0 Pending 09/16/2016 Care Plan: CBC Pending 09/16/2016 Care Plan: A1C HPLC LOINC : 94192-1 Pending 09/16/2016 Visit Plan: CXR now to [...] with CXR results 08/31/2015 Appointment: Shannan Grimes [address] [place] [address] 08/31 confirmed- SP ACUTE ILLNESS 08/31/2015 Patient Education: Patient Medication Summary Completed 08/31/2015 Visit Plan: Albuterol INH via SVN every 4 hours Prednisone 20 mg PO BID Notify for worsening symptoms 08/29/2015 Appointment: Kelsie Grubbs WPtel: [address] [place] [address] ACUTE ILLNESS 08/29/2015 Patient Education: Patient Medication Summary Completed 08/29/2015 Appointment: Xiomara Bettencourt WPtel: [address] [place], [place] [id number] 07/26/2015 Patient Education: Patient Medication Summary Completed 07/26/2015 Visit Plan: Return in am for fasting lab s - CBC, CMP, TSH, Free T4, HgbA1C Change Levemir to Toujeo - Continue 35 Units q am - sample given Start physical Therapy for increased quadriceps strengthening and decreased pain in knees, bilaterally. 07/24/2015 Appointment: Kelsie Grubbs WPtel: [address] [place], [place] [phone] 07/21 appt confirmed cn FOLLOW UP 07/24/19 Appointment: Kelsie Grubbs WPtel: [address] [place] [address] FOLLOW UP 07/24/2015 Patient Education: Patient Medication [...] with insulin 05/01/2015 Appointment: Xiomara Bettencourt WPtel: [address] [place] [address] 04/28 confirmed~sl ACUTE ILLNESS 05/01/2015 Patient Education: Patient Medication Summary Completed 05/01/2015 Patient Education: Patient Medication Summary Completed 01/19/2015 Care Plan: URINALYSIS AUTO W/O SCOPE SERGEI [place] : [id number] Pending 01/19/2015 Visit Plan: I have went through his medi cations in past and stopped meds but he adjusts his meds on his own and has restarted some Stop Amaryl Once again discussed not using indomethacin routinely due to taking plavix and aspirin daily and residential use is dangerous Check CBC, CMP, TSH, free T4, B12 and HbA1C Patient has seen Cardiology recently but no cardiac cath done--had chemical stress test 01/17/2015 Appointment: Xiomara Bettencourt WPtel: [address] [place], [place] [id number] 01/16 vm cn ACUTE ILLNESS 01/17/2015 Patient Education: Patient Medication Summary Completed 01/17/2015 Visit Plan: See Dr. Garvin for removal 09/29/2014 Appointment: Xiomara Bettencourt WPtel: [address] [place] [address] ACUTE ILLNESS 09/29/2014 Referral: Colt Garvin WPtel: [address] Referral Initiated 09/29/2014 Patient Education: Patient Medication Summary Completed 09/29/2014 Visit Plan: Check CBC, CMP, TSH, free T4 , HbA1C, Lipids Accuchecks daily alternating times Patient has been adjusting own meds and has not taken any cholesterol meds for sometime Will check into surgery on right knee at [facility] Check carotid dopplers 08/04/2014 Appointment: Xiomara Bettencourt WPtel: [address] [place] [address] Annual Well Visit 08/04/2014 Patient Education: Patient Medication Summary Completed 08/04/2014 Appointment: Kelsie Grubbs WPtel: [address] [place] [address] ACUTE ILLNESS 02/18/2014 Patient Education: Patient Medication Summary Completed 02/18/2014 Patient Education: [facility] - Saving AutoInj - 18+ - Dynamic Portal ID Completed 02/18/2014 Appointment: Xiomara Bettencourt WPtel: [address] [place] [address] LAB 09/08/2013 Visit Plan: Check fasting lab in 1mo Con tinue Lantus and accuchecks at least BID 07/29/2013 Appointment: Xiomara Bettencourt WPtel: [address] [place] [address] FOLLOW UP 07/29/2013 Patient Education: Patient Medication Summary Completed 07/29/2013 Appointment: Xiomara Bettencourt WPtel: [address] [place] [address] INJECTION 07/22/2013 Patient Education: Patient Medication Summary Completed 07/22/2013 Visit Plan: Pt has been self-adjusting m eds Stop metformin and amaryl Use Levemir 25u sc BID and call in 1wk with BS readings 05/26/2013 Appointment: Xiomara Bettencourt WPtel: [address] [place] [address] FOLLOW UP 05/26/2013 Patient Education: Patient Medication Summary Completed 05/26/2013 Visit Plan: DC Metformin Increase Lantus to 30u sc daily Change lisinopril to lisinopril HCT 20/25mg q AM Continue Gabapentin at current dose 04/28/2013 Appointment: Xiomara Bettencourt WPtel: [address] [place], [place] [id number] FOLLOW UP 04/28/2013 Patient Education: Patient Medication Summary Completed 04/28/2013 Appointment: Xiomara Bettencourt WPtel: [address] [place], [place] [phone] US LAB 03/12/2013 Patient Education: Patient Medication Summary Completed 03/12/2013 Visit Plan: Trial of neurontin 400mg q H S Obtain most recent lab results Change levemir to lantus per pt request Pt goes for sleep study tonite 03/11/2013 Appointment: Xiomara Bettencourt WPtel: [phone] [facility] 02/01paperwork mailed 03/10 confirmed with spouse NEW PATIENT 11/2012 Patient Education: Patient Medication Summary Completed 03/11/2013 Instructions Comment . Saline nasal flushes prn. Tylenol/Motr in prn headache. Notify if persists/symptoms worsening. . 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 Check fasting [...]
--- OUTSIDE RECORDS SUMMARY | 2020-02-02 21:32 | XMS REPORT | CCD ---
Author Author Sheng Bettencourt D.O. Organization [facility] DelphineEdvin BETTENCOURT DO [facility] Address [address] [place] [address] Phone Care Team Providers Care Surveillance Dual Rate Officer Name Role Phone PP Unavailable CCM Unavailable Summary Purpose Interface Exchange Insurance Providers Payer name Policy type / Coverage type Covered alliance party ID Effective Begin Date Effective End Date WPS MEDICARE PART B [place] Medicare Part B [id number] 2018 Unknown [facility] Medicare Part B [id number] 2018 Un known Family history Mother Diagnosis Age At Onset Diabetes mellitus Type 2 Unknown Hypercholesterolemia Unknown Father Diagnosis Age At Onset No Family Disease Entered N/A Social History Social History Element Codes Description Effective Dates Marital status Unknown 03/11/2013 Number of children Unknown 4 03/11/2013 Employment Unknown Retired 03/11/[address]: 0913749 Former smoker 03/11/[address]: 191547 Currently drinks alc ohol Socially 03/11/2013 Has [...] Relief 50 mcg/actuation nasal spray,suspensi on RxNorm: 1436008 2 [place] Nasal QPM 01/12/2020 05/11/2020 Active omeprazole 20 mg capsule,delayed release RxNorm: 954477 1 Capsule(s) Oral two times a day 01/12/2020 07/10/2020 Active simvastatin 20 mg tablet RxNorm: 289792 1 Tablet(s) Oral QD 020 04/02/2020 Active Needs updated fasting labs b efore 90 day refill Flomax 0.4 mg capsule RxNorm: 407108 TAKE TWO CAPSULES BY MOUTH EVERY EVENING 11/11/2019 No Stop Date Active glimepiride 2 mg tablet RxNorm: 336129 1 Tablet(s) Oral QD 10/27/19 20 No Stop Date Active gabapentin 400 mg capsule RxNorm: 826850 1 Capsule(s) Oral QPM 10/0604/24/2020 Active potassium chloride ER 20 mEq tablet,extended release RxNorm: 363110 1 Tablet(s) Oral QD to take with lasix 10/20/2019 10/26/2019 Inactive furosemide 40 mg tablet RxNorm: 404198 1 Tablet(s) Oral QAM for swelling 10/20/2019 10/26/2019 Inactive albuterol sulfate HFA 90 mcg/actuation aerosol inhaler RxNor m: 1019989 1-2 Puff(s) Inhalation as needed 10/12/2019 No Stop Date Active Zyrtec 10 mg tablet RxNorm: 4590664 1 Tablet(s) Oral QAM 10/12/2019 No Stop Date Active aspirin 81 mg tablet,delayed release RxNorm: 106898 1 Tablet(s) Oral QD 10/12/2019 No Stop Date Active Symbicort 160 mcg-4.5 mcg/actuation HFA aerosol inhaler RxNo rm: 6222785 2 Puff(s) Inhalation QD 10/12/2019 No Stop Date Active lisinopril 20 mg tablet RxNorm: 822511 1 Tablet(s) Oral QD 10/12/19 20 01/10/2020 Inactive simvastatin 20 mg tablet RxNorm: 770841 1 Tablet(s) Ora l QD Needs updated fasting labs 09/20/2019 01/02/2020 Inactive Needs updated fa sting labs before 90 day refill Flomax 0.4 mg capsule RxNorm: 999047 TAKE TWO CAPSULES BY MOUTH EVERY EVENING 08/03/2019 11/10/2019 Inactive gabapentin 400 mg capsule RxNorm: 057998 TAKE ONE CAPSU LE BY MOUTH EVERY EVENING 08/02/2019 10/26/2019 Inactive simvastatin 20 mg tablet RxNorm: 092842 1 Tablet(s) Ora l QD Needs updated fasting labs 07/21/2019 08/19/2019 Inactive Needs updated fa sting labs before 90 day refill simvastatin 20 mg tablet RxNorm: 589685 1 Tablet(s) Ora l QD Needs updated fasting labs 06/23/2019 07/20/2019 Inactive Needs updated fa sting labs before 90 day refill Flomax 0.4 mg capsule RxNorm: 751800 1 Capsule(s) Oral QD 05/13/2019 10/19/2019 Inactive Flomax 0.4 mg capsule RxNorm: 560234 TAKE TWO CAPSULES BY MOUTH EVERY EVENING 03/19/2019 05/12/2019 Inactive Augmentin 500 mg-125 mg tablet RxNorm: 188515 1 Tablet(s) PO BID 03/03/2019 Inactive baclofen 10 mg tablet RxNorm: 293633 TAKE ONE TABLET BY MOUTH EVERY NIGHT AT BEDTIME FOR PAIN OR SPASMS 01/14/2019 05/12/2019 Inactive Flomax 0.4 mg capsule RxNorm: 051191 TAKE TWO CAPSULES BY MOUTH EVERY EVENING 01/12/2019 03/18/2019 Inactive gabapentin 400 mg capsule RxNorm: 400887 1 Capsule(s) PO QPM 201806/27/2019 Inactive baclofen 10 mg tablet RxNorm: 153292 1 Tablet(s) PO QHS for my n/spasm 12/15/2018 01/13/2019 Inactive simvastatin 20 mg tablet RxNorm: 041652 TAKE ONE TABLET BY MOUT H DAILY 12/11/2018 06/22/2019 Inactive OneTouch Ultra Blue Test Strip RxNorm: Use 1 rigoberto t strip three times daily to check blood sugar (Dx:E11.65) 12/07/2018 No Stop Date Active gabapentin 400 mg capsule RxNorm: 415360 TAKE ONE CAPSU LE BY MOUTH EVERY EVENING 12/04/2018 12/29/2018 Inactive baclofen 10 mg tablet RxNorm: 759358 1 Tablet(s) PO QHS for my n/spasm 11/19/2018 12/15/2018 Inactive Flomax 0.4 mg capsule RxNorm: 734340 2 Capsule(s) PO QPM 09/15/2018 0 12/13/2018 Inactive WOULD LIKE 90DS!!! gabapentin 400 mg capsule RxNorm: 445321 TAKE ONE CAPSU LE BY MOUTH EVERY EVENING 07/21/2018 10/18/2018 Inactive simvastatin 20 mg tablet RxNorm: 451474 1 Tablet(s) PO QD 06/15/2018 12/10/2018 Inactive Flomax 0.4 mg capsule RxNorm: 793594 TAKE TWO CAPSULES BY MOUTH EVERY EVENING 06/02/2018 09/15/2018 Inactive WOULD LIKE 90DS!!! Flomax 0.4 mg capsule RxNorm: 861230 2 Capsule(s) PO QPM 04/21/2018 1 07/20/2017 Inactive simvastatin 20 mg tablet RxNorm: 877205 1 Tablet(s) PO QD Take 1 tablet by mouth daily. Patient due for labwork before further refill. 04/06/20182017 Inactive simvastatin 20 mg tablet RxNorm: 280732 Tablet(s) TAKE ONE TABLET BY MOUTH DAILY 03/25/2018 06/15/2018 Inactive simvastatin 20 mg tablet RxNorm: 506706 Tablet(s) TAKE ONE TABLET BY MOUTH DAILY due for appt 12/29/2017 03/25/2018 Inactive simvastatin 20 mg tablet RxNorm: 773007 TAKE ONE TABLET BY MOUT H DAILY 09/03/2017 12/29/2017 Inactive simvastatin 20 mg tablet RxNorm: 952908 1 Tablet(s) PO QD 10/22/2016 11/18/2018 Inactive isosorbide mononitrate ER 60 mg tablet,extended release 24 h r RxNorm: 270909 1 Tablet(s) PO QD 10/22/2016 04/21/2017 Inactive isosorbide mononitrate ER 60 mg tablet,extended release 24 h r RxNorm: 186700 1 Tablet(s) PO QD 10/10/2016 10/21/2016 Inactive simvastatin 20 mg tablet RxNorm: 449896 1 Tablet(s) PO QD 10/10/2016 10/21/2016 Inactive gabapentin 400 mg capsule RxNorm: 406674 1 Capsule(s) PO QPM 201609/20/2016 Inactive Toujeo SoloStar 300 unit/mL (1.5 mL) subcutaneous insulin pe n RxNorm: 6480870 35 Unit(s) SQ QAM 07/23/2016 07/22/2016 Inactive Toujeo SoloStar 300 unit/mL (1.5 mL) subcutaneous insulin pe n RxNorm: 4116643 40 Unit(s) SQ QAM 09/01/2015 No Stop Date Active Symbicort 160 mcg-4.5 mcg/actuation HFA aerosol inhaler RxNo rm: 1997824 2 Puff(s) INH BID 08/31/2015 09/09/2015 Inactive prednisone 20 mg tablet RxNorm: 925229 1 Tablet(s) PO BID 08/29/2015 09/02/2015 Inactive albuterol sulfate 2.5 mg/3 mL (0.083 %) solution for n ebulization RxNorm: 990206 1 Unit(s) INH Q4H as needed 08/29/2015 10/09/2016 Inactive levothyroxine 75 mcg tablet RxNorm: 481949 1 Tablet(s) PO QD 201507/27/2015 Inactive levothyroxine 75 mcg tablet RxNorm: 522882 1 Tablet(s) PO QD 201511/18/2018 Inactive levothyroxine 75 mcg tablet RxNorm: 775410 1 Tablet(s) PO QD 201507/27/2015 Inactive lisinopril 20 mg-hydrochlorothiazide 25 mg tablet RxNorm: 19 7887 TAKE ONE TABLET BY MOUTH EVERY MORNING. REPLACES PLAIN LISINOPRIL 03/06/2015 04/21/2017 Inactive lisinopril 20 mg-hydrochlorothiazide 25 mg tablet RxNorm: 19 7887 TAKE ONE TABLET BY MOUTH EVERY MORNING. REPLACES PLAIN LISINOPRIL 09/08/2014 03/05/2015 Inactive allopurinol 100 mg tablet RxNorm: 874342 1 Tablet(s) PO BID 015 10/09/2016 Inactive [[facility] BIN:[id number], PCN: [id number], Group: [id number], ID# [id number], Questions: . THIS IS NOT INSURANCE.] levothyroxine 50 mcg tablet RxNorm: 499229 1 Tablet(s) PO QD 201407/26/2015 Inactive [AttnRPh: Saving apply/adjud icate RxGRP:SG20 RxBIN:[id number] RxPCN: ID#:[id number]] Zegerid 40 mg-1.1 gram capsule RxNorm: 622696 1 Capsule(s) PO QD 03/03/2014 Inactive [AttnRPh: Saving apply/adjud icate RxGRP:SG20 RxBIN:[id number] RxPCN:HT ID#:[id number]] ondansetron 8 mg disintegrating tablet RxNorm: 689591 1 Tablet(s) PO Q8H as needed for [...] 07/28/2013 Inactive gabapentin 400 mg capsule RxNorm: 600445 1 Capsule(s) PO QPM 201207/28/2013 Inactive gabapentin 400 mg capsule RxNorm: 638405 1 Capsule(s) PO QPM 201206/26/2013 Inactive lisinopril 20 mg-hydrochlorothiazide 25 mg tablet RxNorm: 82 3971 1 Tablet(s) PO QAM replaces plain lisinopril 04/28/2013 07/29/2013 Inactive gabapentin 400 mg capsule RxNorm: 733433 1 Capsule(s) PO QPM 201204/27/2013 Inactive gabapentin 400 mg capsule RxNorm: 691286 1 Capsule(s) PO QPM 201203/10/2013 Inactive gabapentin 400 mg capsule RxNorm: 864320 1 Capsule(s) PO QPM 201203/14/2013 Inactive Lantus Solostar 100 unit/mL (3 mL) Sub-Q Insulin Pen RxNorm: 049727 20 Unit(s) SQ QPM 03/11/2013 03/15/2013 Inactive Toujeo SoloStar 300 unit/mL (1.5 mL) subcutaneous insulin pe n RxNorm: 7518830 35 Unit(s) SQ QAM No Start Date Active isosorbide mononitrate ER 60 mg tablet,extended release 24 h r RxNorm: 254317 1 Tablet(s) PO QD No Start Date Active Eliquis 5 mg tablet RxNorm: 5556581 1 Tablet(s) PO BID No Start Date Active metformin 500 mg tablet RxNorm: 428545 1 Tablet(s) PO BID No Start Da te Active levothyroxine 50 mcg tablet RxNorm: 137561 1 Tablet(s) PO QD No Start Date Active Norvasc 10 mg tablet RxNorm: 029915 1 Tablet(s) PO QHS No Start Date Active Toujeo SoloStar 300 unit/mL (1.5 mL) subcutaneous insulin pe n RxNorm: 2918921 30 Unit(s) SQ QAM No Start Date Active glimepiride 4 mg tablet RxNorm: 900684 1 Tablet(s) PO QHS No Start Date 07/26/2015 Inactive omeprazole 20 mg capsule,delayed release RxNorm: 397039 1 Capsu le(s) PO QD No Start Date 01/11/2020 Inactive allopurinol 100 mg tablet RxNorm: 983812 1 Tablet(s) PO BID No Star t Date 08/10/2014 Inactive Lantus Solostar 100 unit/mL (3 mL) subcutaneous insulin pen RxNorm: 531648 30 Unit(s) SQ QD No Start Date 08/03/2014 Inactive Levemir FlexTouch 100 unit/mL (3 mL) subcutaneous insulin pe n RxNorm: 660881 25 Unit(s) SQ QAM No Start Date 07/23/2015 Inactive Lantus 100 unit/mL Sub-Q RxNorm: 346915 30 Unit(s) SQ QHS No Start Date 05/25/2013 Inactive Lantus Solostar 100 unit/mL (3 mL) Sub-Q Insulin Pen RxNorm: 891568 20 Unit(s) SQ QPM No Start Date 03/10/2013 Inactive OneTouch Ultra Blue Test Strip RxNorm: Use 1 rigoberto t strip three times daily to check blood sugar (Dx:E11.65) No Start Date 12/06/2018 Inactive Levemir FlexTouch 100 unit/mL (3 mL) subcutaneous insulin pe n RxNorm: 500905 30- 35 Unit(s) SQ QAM No Start Date 07/23/2015 Inactive Levemir Flexpen 100 unit/mL (3 mL) solution subcutaneo us insulin pen RxNorm: 974688 20-25 Unit(s) SQ QD No Start Date 07/28/2013 Inactive lisinopril 20 mg tablet RxNorm: 098850 1 Tablet(s) PO QD No Start D ate 10/11/2019 Inactive indomethacin ER 75 mg capsule,extended release RxNorm: 39075 2 1 Capsule(s) PO QAM No Start Date 04/27/2013 Inactive indomethacin ER 75 mg capsule,extended release RxNorm: 53230 2 1 Capsule(s) PO QD No Start Date 01/16/2015 Inactive Chlortab-4 oral RxNorm: 012278 oral No Start Date 10/11/2019 Inac tive Vitamin D3 5,000 unit tablet RxNorm: 513516 1 Tablet(s) PO QD No St art Date 08/03/2014 Inactive Levemir Flexpen 100 unit/mL (3 mL) solution subcutaneo us insulin Pen RxNorm: 507358 20 Unit(s) SQ QHS No Start Date 03/10/2013 Inactive Vytorin 10 mg-40 mg tablet RxNorm: 0094439 1/2 Tablet(s) PO QD No S tart Date 04/20/2018 Inactive oxymetazoline-menthol 0.05 % nasal spray RxNorm: 5213883 [place] N COTY No Start Date 10/11/2019 Inactive Patient states he ta kes every 10 hours Toujeo SoloStar 300 unit/mL (1.5 mL) subcutaneous insulin pe n RxNorm: 0437573 35 Unit(s) SQ QAM No Start Date 07/22/2016 Inactive Lantus Solostar 100 unit/mL (3 mL) subcutaneous insulin pen RxNorm: 556409 20 Unit(s) SQ QD No Start Date 08/03/2014 Inactive aspirin 81 mg tablet RxNorm: 123021 1 Tablet(s) PO QD No Start Date 0 08/03/2014 Inactive metformin 500 mg tablet RxNorm: 823944 1 Tablet(s) PO BID No Start Date 07/28/2013 Inactive glimepiride 4 mg tablet RxNorm: 964112 1 Tablet(s) PO BID No Start Date 01/16/2015 Inactive glimepiride 4 mg tablet RxNorm: 203925 1 Tablet(s) PO QD No Start D ate 08/03/2014 Inactive levothyroxine 25 mcg tablet RxNorm: 807753 1 Tablet(s) PO QD No Sta rt Date 08/10/2014 Inactive doxycycline oral RxNorm: 22347 oral No Start Date 05/12/2019 Inac tive aspirin 81 mg tablet RxNorm: 845987 1 Tablet(s) PO QD No Start Date 0 07/21/2018 Inactive isosorbide mononitrate ER 60 mg tablet,extended release 24 h r RxNorm: 527827 1 Tablet(s) PO BID No Start Date 01/16/2015 Inactive metformin 500 mg tablet RxNorm: 160062 1 Tablet(s) PO BID No Start Date 04/27/2013 Inactive Plavix 75 mg tablet RxNorm: 705433 1 Tablet(s) PO QD No Start Date Inactive glimepiride 4 mg tablet RxNorm: 203239 1 Tablet(s) PO QPM No Start Date 02/21/2019 Inactive Vytorin 10-40 10 mg-40 mg tablet RxNorm: 4655592 1 Tablet(s) PO QHS No Start Date 08/03/2014 Inactive indomethacin 50 mg capsule RxNorm: 331290 1 Capsule(s) PO QHS No St art Date 01/16/2015 Inactive glimepiride 4 mg tablet RxNorm: 578524 1 Tablet(s) PO BID No Start Date 07/28/2013 Inactive Levemir FlexTouch 100 unit/mL (3 mL) subcutaneous insulin pe n RxNorm: 585688 20 Unit(s) SQ QD No Start Date 04/30/2015 Inactive lisinopril 20 mg tablet RxNorm: 293200 1 Tablet(s) PO BID No Start Date 04/27/2013 Inactive Lantus Solostar SubQ RxNorm: Subcutaneous No Start Date 03/15/2013 I nactive Zantac 150 mg tablet RxNorm: 262045 1 Tablet(s) PO QHS No Start Date 10/11/2019 Inactive allopurinol 300 mg tablet RxNorm: 451972 1 Tablet(s) PO QD No Start Date 08/03/2014 Inactive Fish Oil 1,000 mg capsule RxNorm: 1 Capsule(s) PO QD No Start Date 02/21/2019 Inactive indomethacin 50 mg capsule RxNorm: 187784 1 Capsule(s) PO BID No St art Date 04/20/2018 Inactive levothyroxine 50 mcg tablet RxNorm: 139215 1 Tablet(s) PO QD No Sta rt Date 08/10/2014 Inactive glimepiride 4 mg tablet RxNorm: 970744 1 Tablet(s) PO BID No Start Date 03/15/2013 Inactive indomethacin 50 mg capsule RxNorm: 554037 1 Capsule(s) PO QHS No St art Date 04/27/2013 Inactive Medication Administered No Medication Administered data Immunizations Vaccine Codes Date Status Influenza CVX: 135 04/21/2018 Complete Influenza CVX: 135 04/22/2017 Complete Results Observation Observation Code Item Item Code Result Date S ervice Location [facility] 34081 Cholesterol 209 mg/dL 09/17/2016 Unkno wn [facility] 10758 Triglyceride 111 mg/dL 09/17/2016 Unkn own [facility] 20510 HDL CHOLESTEROL 50 mg/dL 09/17/2016 U nknown [facility] 84789 Chol/HDL Ratio 4.18 ratio 09/17/2016 U nknown [facility] 97300 NON-HDL Chol 159 mg/dL 09/17/2016 Unkn own [facility] 14594 LDL Cholesterol 137 mg/dL 09/17/2016 U nknown MEAN GLUC 1352509 Calc Mean Gluc 151 mg/dL 09/17/2016 Unkn own COMPREHENSIVE METABOLIC 04846 AST 23 U/L 2016 Unknown COMPREHENSIVE METABOLIC 61880 ALT 19 U/L 2016 Unknown [facility]ENS[facility]OL[facility] 18393 BUN 15 mg/dL 2016 Unknown [facility]HENS[facility] MET[facility]OL[facility] 99346 ALBUMIN 4.3 g/dL 2016 Unknown COMPREHENSIVE METABOLIC 98113 CHLORIDE 103 mmol/L 09/17 Unknown COMPREHENSIVE METABOLIC 40486 Bili Total 0.6 mg/dL 09/17 Unknown COMPREHENSIVE METABOLIC 97428 ALK PHOS 60 U/L 2016 Unknown COMPREHENSIVE METABOLIC 16473 SODIUM 140 mmol/L 09/17 Unknown COMPREHENSIVE METABOLIC 48620 CREATININE 1.03 mg/dL 09/04 Unknown COMPREHENSIVE METABOLIC 22955 CALCIUM 9.5 mg/dL 2016 Unknown COMPREHENSIVE METABOLIC 42953 POTASSIUM 3.9 mmol/L 09/17 Unknown COMPREHENSIVE METABOLIC 36757 Total Protein 6.9 g/dL Unknown COMPREHENSIVE METABOLIC 56902 Glucose 94 mg/dL 2016 Unknown COMPREHENSIVE METABOLIC 73308 Bicarbonate 28 mmol/L 09/04 Unknown COMPREHENSIVE METABOLIC 89749 AGAP 9 mmol/L 2016 Unknown GFR CALC 9309444 GFR Afr Amr >60 mL/min 09/17/2016 Unknow n GFR CALC 9882722 GFR Non Afr Amr >60 mL/min 09/17/2016 Un known THYROID STIMULATING HORMONE 83742 TSH 4.260 uIU/mL 09/17/2016 Unknown GLYCOSYLATED HEMOGLOBIN TEST 59651 Hgb A1c 63611-3 6.9 % 0 09/17/2016 Unknown FREE T4 33297 T4 Free 1.02 ng/dL 09/17/2016 Unknown COMPLETE BLOOD COUNT [id number] WBC 8.6 10e9/L 07/26/19 16 Unknown COMPLETE BLOOD COUNT [id number] RBC 4.86 10e12/L 2015 Unknown COMPLETE BLOOD COUNT 0479077 HGB 14.6 g/dL 6 Unknown COMPLETE BLOOD COUNT 5387968 HCT DET 43.1 % 6 Unknown COMPLETE BLOOD COUNT [id number] MCV 88.7 fL 6 Unknown COMPLETE BLOOD COUNT [id number] MCH 30.0 pg 6 Unknown COMPLETE BLOOD COUNT 7769443 MCHC 33.9 g/dL 6 Unknown COMPLETE BLOOD COUNT [id number] PLT 267 10e9/L 07/26/19 16 Unknown COMPLETE BLOOD COUNT [id number] MPV 11.5 fL 6 Unknown COMPLETE BLOOD COUNT 0194107 SAM % 64.8 % 6 Unknown COMPLETE BLOOD COUNT 1260154 LY % 16.8 % 6 Unknown COMPLETE BLOOD COUNT [id number] MON % 12.5 % 6 Unknown COMPLETE BLOOD COUNT [id number] EOS % 5.6 % 6 Unknown COMPLETE BLOOD COUNT [id number] BASO % 0.3 % 6 Unknown COMPLETE BLOOD COUNT [id number] RDW 13.4 % 6 Unknown COMPLETE BLOOD COUNT [id number] ABS SAM 5.57 10e9/L 016 Unknown COMPLETE BLOOD COUNT [id number] ABS LYMPH 1.44 10e9/L 016 Unknown COMPLETE BLOOD COUNT [id number] ABS MONO 1.08 10e9/L 016 Unknown COMPLETE BLOOD COUNT [id number] ABS EOS 0.48 10e9/L 016 Unknown COMPLETE BLOOD COUNT [id number] ABS BASO 0.03 10e9/L 016 Unknown COMPLETE BLOOD COUNT [id number] RDW-SD 42.9 fL 6 Unknown PSA EQUIMOLAR MATT 67472 PSA EQ 0.78 NG/ML 6 Unknown THYROID STIMULATING HORMONE 94120 TSH 5.292 uIU/ML 07/26/2015 Unknown GLYCOSYLATED HEMOGLOBIN TEST 43777 A1C HPLC 36474-1 7.0 % 0 07/26/2015 Unknown GFR CALC 3776950 GFR AA >60 ML/MIN 07/26/2015 Unknown GFR CALC 0896422 GFR NON-AA >60 ML/MIN 07/26/2015 Unknown [facility] 27301 HDL TEST 64 MG/DL 07/26/2015 Unknown [facility] 65450 TRIG 58 MG/DL 07/26/2015 Unknown [facility] 25259 TEST LDL 49 MG/DL 07/26/2015 Unknown [facility] 47366 CHOL 125 MG/DL 07/26/2015 Unknown [facility] 68272 RCHOL/HDL 1.95 RATIO 07/26/2015 Unknow n [facility] 04769 NON-HDL CH 61 MG/DL 07/26/2015 Unknow n COMPREHENSIVE METABOLIC 06927 AST 25 U/L 2015 Unknown COMPREHENSIVE METABOLIC 42979 ALT 23 IU/L 2015 Unknown COMPREHENSIVE METABOLIC 08759 BUN 18 MG/DL 2015 Unknown COMPREHENSIVE METABOLIC 47003 ALBUMIN 4.6 GM/DL 2015 Unknown COMPREHENSIVE METABOLIC 16940 CHLORIDE 100 MMOL/L 07/26 Unknown COMPREHENSIVE METABOLIC 74931 BILI TOT 0.5 MG/DL 2015 Unknown COMPREHENSIVE METABOLIC 32840 ALK PHOS 49 U/L 2015 Unknown COMPREHENSIVE METABOLIC 91545 SODIUM 137 MMOL/L 07/26 Unknown COMPREHENSIVE METABOLIC 69949 CREATININE 1.06 MG/DL 07/08 Unknown COMPREHENSIVE METABOLIC 76275 CALCIUM 9.5 MG/DL 2015 Unknown COMPREHENSIVE METABOLIC 69247 POTASSIUM 4.5 MMOL/L 07/26 Unknown COMPREHENSIVE METABOLIC 61577 PROT TOT 6.5 GM/DL 2015 Unknown COMPREHENSIVE METABOLIC 18898 Glucose 109 MG/DL 2015 Unknown COMPREHENSIVE METABOLIC 41500 BICARB 29 MMOL/L 2015 Unknown COMPREHENSIVE METABOLIC 03996 ANION GAP 8 MEQ/L 2015 Unknown FREE T4 45771 FREE T4 1.11 NG/DL 07/26/2015 Unknown CULTURE & SENSITIVITY 46544 PROTEIN UR NEG 015 Unknown [facility]ULTURE & SENSITIVITY 51196 HEMGLBN UR TR 015 Unknown CULTURE & SENSITIVITY 01937 GLUCOSE UR NEG 015 Unknown CULTURE & SENSITIVITY 79340 KETONES UR NEG 015 Unknown CULTURE & SENSITIVITY 69098 PH U 6.5 01/25/20 15 Unknown CULTURE & SENSITIVITY 44261 SP GR U 1.013 01/25/20 15 Unknown CULTURE & SENSITIVITY 28699 BILRUBN UR NEG 015 Unknown CULTURE & SENSITIVITY 95896 LEUKO UR NEG 01/25/20 15 Unknown CULTURE & SENSITIVITY 96104 NITRITE UR NEG 015 Unknown MICR CUL? [id number] SP TO JOHANA? NO 01/24/2015 Unknown MICR CUL? 7921413 APPEAR UR NORMAL 01/24/2015 Unknown MICR CUL? 4114740 RBC/uL 2.2 01/24/2015 Unknown MICR CUL? 0493240 WBC/uL 2.8 01/24/2015 Unknown MICR CUL? 4659802 SQ EPI/uL 1.0 01/24/2015 Unknown MICR CUL? 1363199 HYALCST/uL 0.25 01/24/2015 Unknown MICR CUL? 2803597 WBC /HPF 1 01/24/2015 Unknown MICR CUL? 8530878 RBC /HPF 0 01/24/2015 Unknown GLYCOSYLATED HEMOGLOBIN TEST 92017 A1C HPLC 14473-3 6.6 % 0 01/17/2015 Unknown COMPLETE BLOOD COUNT [id number] WBC 10.1 10e9/L 015 Unknown COMPLETE BLOOD COUNT [id number] RBC 4.60 10e12/L 2014 Unknown COMPLETE BLOOD COUNT 1999491 HGB 14.0 g/dL 5 Unknown COMPLETE BLOOD COUNT 1816906 HCT DET 39.9 % 5 Unknown COMPLETE BLOOD COUNT 4188045 MCV 86.7 fL 5 Unknown COMPLETE BLOOD COUNT 0785478 MCH 30.4 pg 5 Unknown COMPLETE BLOOD COUNT 4582076 MCHC 35.1 g/dL 5 Unknown COMPLETE BLOOD COUNT 6376329 PLT 252 10e9/L 01/18/20 15 Unknown COMPLETE BLOOD COUNT 5702086 MPV 11.4 fL 5 Unknown COMPLETE BLOOD COUNT [id number] SAM % 72.9 % 5 Unknown COMPLETE BLOOD COUNT 9388088 LY % 13.6 % 5 Unknown COMPLETE BLOOD COUNT 4784162 MON % 10.2 % 5 Unknown COMPLETE BLOOD COUNT 1084663 EOS % 3.1 % 5 Unknown COMPLETE BLOOD COUNT [id number] BASO % 0.2 % 5 Unknown COMPLETE BLOOD COUNT 7501507 RDW 13.6 % 5 Unknown COMPLETE BLOOD COUNT 8255196 ABS SAM 7.36 10e9/L 015 Unknown COMPLETE BLOOD COUNT 9744352 ABS LYMPH 1.37 10e9/L 015 Unknown COMPLETE BLOOD COUNT 8236367 ABS MONO 1.03 10e9/L 015 Unknown COMPLETE BLOOD COUNT [id number] ABS EOS 0.31 10e9/L 015 Unknown COMPLETE BLOOD COUNT [id number] ABS BASO 0.02 10e9/L 015 Unknown COMPLETE BLOOD COUNT 1207086 RDW-SD 42.4 fL 5 Unknown GFR CALC 8515013 GFR AA 51.0L ML/MIN 01/17/2015 Unknow n GFR CALC 7630642 GFR NON-AA 42.0L ML/MIN 01/17/2015 Unkno wn FREE T4 08042 FREE T4 1.30 NG/DL 01/17/2015 Unknown THYROID STIMULATING HORMONE 89228 TSH 4.029 uIU/ML 01/17/2015 Unknown COMPREHENSIVE METABOLIC 54961 AST 28 U/L 2014 Unknown COMPREHENSIVE METABOLIC 61704 ALT 25 IU/L 2014 Unknown COMPREHENSIVE METABOLIC 19944 BUN 21 MG/DL 2014 Unknown COMPREHENSIVE METABOLIC 54857 ALBUMIN 4.7 GM/DL 2014 Unknown COMPREHENSIVE METABOLIC 48281 CHLORIDE 102 MMOL/L 01/17 Unknown COMPREHENSIVE METABOLIC 14377 BILI TOT 0.6 MG/DL 2014 Unknown COMPREHENSIVE METABOLIC 65541 ALK PHOS 44 U/L 2014 Unknown COMPREHENSIVE METABOLIC 46160 SODIUM 137 MMOL/L 01/17 Unknown COMPREHENSIVE METABOLIC 17837 CREATININE 1.62 MG/DL 01/04 Unknown COMPREHENSIVE METABOLIC 12082 CALCIUM 9.7 MG/DL 2014 Unknown COMPREHENSIVE METABOLIC 35898 POTASSIUM 4.5 MMOL/L 01/17 Unknown COMPREHENSIVE METABOLIC 86407 PROT TOT 6.5 GM/DL 2014 Unknown COMPREHENSIVE METABOLIC 41802 Glucose 136 MG/DL 2014 Unknown COMPREHENSIVE METABOLIC 78615 BICARB 24 MMOL/L 2014 Unknown COMPREHENSIVE METABOLIC 31191 ANION GAP 11 MEQ/L 2014 Unknown VITAMIN B 12 12794 VIT B 12 482 PG/ML 01/17/2015 Unknow n URIC ACID 44612 URIC ACID 8.5 MG/DL 08/09/2014 Unknown COMPREHENSIVE METABOLIC 14392 AST 27 U/L 2014 Unknown COMPREHENSIVE METABOLIC 69528 ALT 26 IU/L 2014 Unknown COMPREHENSIVE METABOLIC 16075 BUN 17 MG/DL 2014 Unknown COMPREHENSIVE METABOLIC 40898 ALBUMIN 5.0 GM/DL 2014 Unknown COMPREHENSIVE METABOLIC 01171 CHLORIDE 101 MMOL/L 08/09 Unknown COMPREHENSIVE METABOLIC 02053 BILI TOT 0.7 MG/DL 2014 Unknown COMPREHENSIVE METABOLIC 49424 ALK PHOS 53 U/L 2014 Unknown COMPREHENSIVE METABOLIC 53559 SODIUM 136 MMOL/L 08/09 Unknown COMPREHENSIVE METABOLIC 38476 CREATININE 1.14 MG/DL 09/2014 Unknown COMPREHENSIVE METABOLIC 26441 CALCIUM 9.8 MG/DL 2014 Unknown COMPREHENSIVE METABOLIC 68697 POTASSIUM 4.1 MMOL/L 08/09 Unknown COMPREHENSIVE METABOLIC 42968 PROT TOT 7.5 GM/DL 2014 Unknown COMPREHENSIVE METABOLIC 14448 Glucose 110 MG/DL 2014 Unknown COMPREHENSIVE METABOLIC 66015 BICARB 30 MMOL/L 2014 Unknown COMPREHENSIVE METABOLIC 57177 ANION GAP 5 MEQ/L 2014 Unknown GFR CALC 7857124 GFR AA >60 ML/MIN 08/09/2014 Unknown GFR CALC 1981692 GFR NON-AA >60 ML/MIN 08/09/2014 Unknown FREE T4 98815 FREE T4 1.14 NG/DL 08/09/2014 Unknown GLYCOSYLATED HEMOGLOBIN TEST 72858 A1C HPLC 81692-4 6.8 % 0 08/09/2014 Unknown COMPLETE BLOOD COUNT [id number] WBC 5.9 10e9/L 08/09/19 15 Unknown COMPLETE BLOOD COUNT 4396139 RBC 5.04 10e12/L 2014 Unknown COMPLETE BLOOD COUNT 2288554 HGB 15.2 g/dL 5 Unknown COMPLETE BLOOD COUNT 4478618 HCT DET 44.3 % 5 Unknown COMPLETE BLOOD COUNT 5797031 MCV 87.9 fL 5 Unknown COMPLETE BLOOD COUNT 9696820 MCH 30.2 pg 5 Unknown COMPLETE BLOOD COUNT 3287977 MCHC 34.3 g/dL 5 Unknown COMPLETE BLOOD COUNT 0927102 PLT 262 10e9/L 08/09/19 15 Unknown COMPLETE BLOOD COUNT 9204917 MPV 10.9 fL 5 Unknown COMPLETE BLOOD COUNT 5491571 SAM % 58.7 % 5 Unknown COMPLETE BLOOD COUNT 6590091 LY % 21.5 % 5 Unknown COMPLETE BLOOD COUNT 5431551 MON % 14.0 % 5 Unknown COMPLETE BLOOD COUNT 8550520 EOS % 5.3 % 5 Unknown COMPLETE BLOOD COUNT 8639258 BASO % 0.5 % 5 Unknown COMPLETE BLOOD COUNT 0216865 RDW 13.1 % 5 Unknown COMPLETE BLOOD COUNT 3541724 ABS SAM 3.46 10e9/L 015 Unknown COMPLETE BLOOD COUNT [id number] ABS LYMPH 1.27 10e9/L 015 Unknown COMPLETE BLOOD COUNT [id number] ABS MONO 0.83 10e9/L 015 Unknown COMPLETE BLOOD COUNT [id number] ABS EOS 0.31 10e9/L 015 Unknown COMPLETE BLOOD COUNT [id number] ABS BASO 0.03 10e9/L 015 Unknown COMPLETE BLOOD COUNT [id number] RDW-SD 41.2 fL 5 Unknown THYROID STIMULATING HORMONE 17304 TSH 5.395 uIU/ML 08/09/2014 Unknown LIPID GROUP 74535 HDL TEST 52 MG/DL 08/09/2014 Unknown LIPID GROUP 84906 TRIG 113 MG/DL 08/09/2014 Unknown LIPID GROUP 68641 TEST LDL 158 MG/DL 08/09/2014 Unknown LIPID GROUP 66882 CHOL 233 MG/DL 08/09/2014 Unknown LIPID GROUP 99916 RCHOL/HDL 4.48 RATIO 08/09/2014 Unknow n LIPID GROUP 42267 NON-HDL CH 181 MG/DL 08/09/2014 Unknow n COMPLETE BLOOD COUNT [id number] WBC 6.8 10e9/L 09/09/19 14 Unknown COMPLETE BLOOD COUNT [id number] RBC 5.18 10e12/L 2013 Unknown COMPLETE BLOOD COUNT [id number] HGB 15.2 g/dL 4 Unknown COMPLETE BLOOD COUNT [id number] HCT DET 44.7 % 4 Unknown COMPLETE BLOOD COUNT [id number] MCV 86.3 fL 4 Unknown COMPLETE BLOOD COUNT [id number] MCH 29.3 pg 4 Unknown COMPLETE BLOOD COUNT [id number] MCHC 34.0 g/dL 4 Unknown COMPLETE BLOOD COUNT [id number] PLT 236 10e9/L 09/09/19 14 Unknown COMPLETE BLOOD COUNT [id number] MPV 11.0 fL 4 Unknown COMPLETE BLOOD COUNT [id number] SAM % 58.2 % 4 Unknown COMPLETE BLOOD COUNT [id number] LY % 21.9 % 4 Unknown COMPLETE BLOOD COUNT [id number] MON % 12.5 % 4 Unknown COMPLETE BLOOD COUNT [id number] EOS % 7.3 % 4 Unknown COMPLETE BLOOD COUNT [id number] BASO % 0.1 % 4 Unknown COMPLETE BLOOD COUNT [id number] RDW 13.6 % 4 Unknown COMPLETE BLOOD COUNT [id number] ABS SAM 3.96 10e9/L 014 Unknown COMPLETE BLOOD COUNT [id number] ABS LYMPH 1.49 10e9/L 014 Unknown COMPLETE BLOOD COUNT [id number] ABS MONO 0.85 10e9/L 014 Unknown COMPLETE BLOOD COUNT [id number] ABS EOS 0.50 10e9/L 014 Unknown COMPLETE BLOOD COUNT [id number] ABS BASO 0.01 10e9/L 014 Unknown COMPLETE BLOOD COUNT [id number] RDW-SD 42.3 fL 4 Unknown COMPREHENSIVE METABOLIC 06170 AST 27 U/L 2013 Unknown COMPREHENSIVE METABOLIC 08200 ALT 30 IU/L 2013 Unknown COMPREHENSIVE METABOLIC 49775 BUN 16 MG/DL 2013 Unknown COMPREHENSIVE METABOLIC 52711 ALBUMIN 4.9 GM/DL 2013 Unknown COMPREHENSIVE METABOLIC 29839 CHLORIDE 99 MMOL/L 2013 Unknown COMPREHENSIVE METABOLIC 24727 BILI TOT 0.7 MG/DL 2013 Unknown COMPREHENSIVE METABOLIC 39323 ALK PHOS 53 U/L 2013 Unknown COMPREHENSIVE METABOLIC 69838 SODIUM 137 MMOL/L 09/08 Unknown COMPREHENSIVE METABOLIC 40395 CREATININE 1.01 MG/DL 11/2013 Unknown COMPREHENSIVE METABOLIC 98812 CALCIUM 10.0 MG/DL 09/08 Unknown COMPREHENSIVE METABOLIC 31960 POTASSIUM 4.4 MMOL/L 09/08 Unknown COMPREHENSIVE METABOLIC 43711 PROT TOT 7.1 GM/DL 2013 Unknown COMPREHENSIVE METABOLIC 85212 Glucose 148 MG/DL 2013 Unknown COMPREHENSIVE METABOLIC 87900 BICARB 30 MMOL/L 2013 Unknown COMPREHENSIVE METABOLIC 48307 ANION GAP 8 MEQ/L 2013 Unknown GFR CALC 4831315 GFR AA >60 ML/MIN 09/08/2013 Unknown GFR CALC 6505386 GFR NON-AA >60 ML/MIN 09/08/2013 Unknown FREE T4 49036 FREE T4 1.08 NG/DL 09/08/2013 Unknown GLYCOSYLATED HEMOGLOBIN TEST 27388 A1C HPLC 73788-0 7.3 % 0 09/08/2013 Unknown THYROID STIMULATING HORMONE 43039 TSH 5.454 uIU/ML 09/08/2013 Unknown LIPID GROUP 28548 HDL TEST 59 MG/DL 09/08/2013 Unknown LIPID GROUP 07305 TRIG 92 MG/DL 09/08/2013 Unknown LIPID GROUP 05486 TEST LDL 83 MG/DL 09/08/2013 Unknown LIPID GROUP 38394 CHOL 160 MG/DL 09/08/2013 Unknown LIPID GROUP 67194 RCHOL/HDL 2.71 RATIO 09/08/2013 Unknow n VITAMIN B 12 FOLIC ACID 68625|03552 VIT B 12 467 PG/ML 12/2012 Unknown VITAMIN B 12 FOLIC ACID 35594|65755 FOLIC ACID 12.2 NG/ML Unknown VITAMIN B 12 FOLIC ACID 89943|44191 VIT B 12 467 PG/ML 12/2012 Unknown THYROID STIMULATING HORMONE 00946 TSH 4.557 uIU/ML 03/12/2013 Unknown HEMOGLOBIN A1C (GLYCOSYLATED) 3491964 A1C HPLC 01630-6 7.6 % 03/12/2013 Unknown VITAMIN D TOTAL (25 HYDROXY) 12789 VIT D TOTL 17 NG/ML 03/12/2013 Unknown FREE T4 11178 FREE T4 1.07 NG/DL 03/12/2013 Unknown URIC ACID 64987 URIC ACID 5.2 MG/DL 03/12/2013 Unknown Procedures Procedure Codes Date PPPS, subseq visit CPT-4: G0439 01/12/2020 THER/PROPH/DIAG INJ SC/IM CPT-4: 21366 05/13/2019 TRIAMCINOLONE ACET INJ NOS CPT-4: J3301 05/13/2019 DEXAMETHASONE SODIUM PHOS CPT-4: J1100 05/13/2019 THER/PROPH/DIAG INJ SC/IM CPT-4: 72970 02/22/2019 TRIAMCINOLONE ACET INJ NOS CPT-4: J3301 02/22/2019 FLU VACC PRSV FREE INC ANTIG 65 AND OLDER CPT-4: 69707 04/21/2018 ADMIN INFLUENZA VIRUS VAC CPT-4: G0008 04/21/2018 PRESCRIP TRANSMIT VIA ERX SY CPT-4: G8553 04/21/2018 DESTRUCT PREMALG LESION (Cryosurgery) CPT-4: 00519 FLU VACC PRSV FREE INC ANTIG 65 AND OLDER CPT-4: 77662 04/22/2017 ADMIN INFLUENZA VIRUS VAC CPT-4: G0008 04/22/2017 PRESCRIP TRANSMIT VIA ERX SY CPT-4: G8553 10/10/2016 PRESCRIP TRANSMIT VIA ERX SY CPT-4: G8553 08/29/2015 ROUTINE VENIPUNCTURE CPT-4: 26945 07/26/2015 ASSAY OF FREE THYROXINE CPT-4: 88586 07/26/2015 ASSAY THYROID STIM HORMONE CPT-4: 49015 07/26/2015 COMPREHEN METABOLIC PANEL CPT-4: 97964 07/26/2015 COMPLETE CBC W/AUTO DIFF WBC CPT-4: 24984 07/26/2015 LIPID PANEL CPT-4: 97729 07/26/2015 ASSAY OF PSA TOTAL CPT-4: 84278 07/26/2015 A1C HPLC CPT-4: 32054 07/26/2015 ROUTINE VENIPUNCTURE CPT-4: 86111 01/17/2015 ASSAY OF FREE THYROXINE CPT-4: 80009 01/17/2015 ASSAY THYROID STIM HORMONE CPT-4: 18476 01/17/2015 COMPREHEN METABOLIC PANEL CPT-4: 56571 01/17/2015 COMPLETE CBC W/AUTO DIFF WBC CPT-4: 82955 01/17/2015 A1C HPLC CPT-4: 66974 01/17/2015 VITAMIN B-12 CPT-4: 98824 01/17/2015 PPPS, subseq visit CPT-4: G0439 08/04/2014 PRESCRIP TRANSMIT VIA ERX SY CPT-4: G8553 02/18/2014 FLUZONE, 5ML (Medicare) CPT-4: Q2038 07/22/2013 ADMIN INFLUENZA VIRUS VAC CPT-4: G0008 07/22/2013 PRESCRIP TRANSMIT VIA ERX SY CPT-4: G8553 04/28/2013 ROUTINE VENIPUNCTURE CPT-4: 77292 03/12/2013 VITAMIN D TOTAL (25 HYDROXY) CPT-4: 15341 03/12/2013 VITAMIN B 12 FOLIC ACID CPT-4: 32759|54004 03/12/2013 A1C GLYCOSYLATED HEMOGLOBIN TEST CPT-4: 74851 013 ASSAY OF BLOOD/URIC ACID CPT-4: 51647 03/12/2013 ASSAY OF FREE THYROXINE CPT-4: 72190 03/12/2013 ASSAY THYROID STIM HORMONE CPT-4: 56913 03/12/2013 CUR TOBACCO NON-USER CPT-4: G8457 03/11/2013 PRESCRIP TRANSMIT VIA ERX SY CPT-4: G8553 03/11/2013 Vital Signs Date Vital 01/12/2020 Blood Pressure 1: 126/84 Code: 8480-6 BMI: 37.5 Code: 76794-9 Heart Rate 1: 80 bpm Height: 5'9" [...] 1: 156/70 Code: 8480-6 BMI: 35.0 Code: 71490-1 Heart Rate 1: 68 bpm Height: 5'10" Respiratory Rate: 20 bpm SpO2: 95% Tempera ture: 36.5 (C) / 97.7 (F) Weight: 244 lbs 04/21/2018 Blood Pressure 1: 124/80 Code: 8480-6 BMI: 34.4 Code: 07287-1 Heart Rate 1: 80 bpm Height: 5'10" Respiratory Rate: 20 bpm SpO2: 96% Tempera ture: 37.0 (C) / 98.6 (F) Weight: 240 lbs 01/06/2018 Blood Pressure 1: 138/82 Code: 8480-6 BMI: 33.9 Code: 90257-7 Heart Rate 1: 96 bpm Height: 5'10" Respiratory Rate: 24 bpm SpO2: 98% Tempera ture: 35.9 (C) / 96.6 (F) Weight: 236 lbs 10/22/2017 Blood Pressure 1: 144/70 Code: 8480-6 BMI: 34.7 Code: 52667-3 Heart Rate 1: 72 bpm Height: 5'10" Respiratory Rate: 20 bpm SpO2: 96% Tempera ture: 36.9 (C) / 98.4 (F) Weight: 242 lbs 04/22/2017 Blood Pressure 1: 146/82 Code: 8480-6 BMI: 32.9 Code: 74556-2 Heart Rate 1: 104 bpm Height: 5'10" Respiratory Rate: 20 bpm SpO2: 95% Tempera ture: 36.9 (C) / 98.5 (F) Weight: 229 lbs 10/10/2016 Blood Pressure 1: 124/64 Code: 8480-6 BMI: 32.9 Code: 32571-8 Heart Rate 1: 64 bpm Height: 5'10" [...] 1: 146/90 Code: 8480-6 BMI: 34.1 Code: 05317-4 Heart Rate 1: 80 bpm Height: 5'10" Respiratory Rate: 20 bpm Temperature: 36 .8 (C) / 98.2 (F) Weight: 238 lbs 01/17/2015 Blood Pressure 1: 116/60 Code: 8480-6 BMI: 32.7 Code: 86531-7 Heart Rate 1: 84 bpm Height: 5'10" Respiratory Rate: 20 bpm Temperature: 36 .7 (C) / 98.0 (F) Weight: 228 lbs 09/29/2014 Blood Pressure 1: 136/78 Code: 8480-6 BMI: 33.9 Code: 92117-3 Heart Rate 1: 80 bpm Height: 5'10" Respiratory Rate: 20 bpm Temperature: 36 .6 (C) / 97.9 (F) Weight: 236 lbs 08/04/2014 Blood Pressure 1: 132/70 Code: 8480-6 BMI: 32.9 Code: 48045-8 Heart Rate 1: 72 bpm Height: 5'10" Respiratory Rate: 20 bpm Temperature: 36 .7 (C) / 98.0 (F) Weight: 229 lbs 02/18/2014 Blood Pressure 1: 124/82 Code: 8480-6 Heart Rate 1: 82 bpm Respiratory Rate: 18 bpm Temperature: 36.4 (C) / 97.5 (F) Weight: 232 lbs 07/29/2013 Blood Pressure 1: 146/80 Code: 8480-6 BMI: 34.1 Code: 67054-2 Heart Rate 1: 64 bpm Height: 5'10" Respiratory Rate: 20 bpm Temperature: 36 .9 (C) / 98.5 (F) Weight: 238 lbs 05/26/2013 Blood Pressure 1: 142/90 Code: 8480-6 BMI: 34.0 Code: 17593-5 Heart Rate 1: 84 bpm Height: 5'10" Respiratory Rate: 20 bpm Temperature: 36 .7 (C) / 98.0 (F) Weight: 237 lbs 04/28/2013 Blood Pressure 1: 118/78 Code: 8480-6 BMI: 32.9 Code: 59331-6 Heart Rate 1: 74 bpm Height: 5'10" Respiratory Rate: 20 bpm Temperature: 36 .1 (C) / 97.0 (F) Weight: 229 lbs 03/11/2013 Blood Pressure 1: 146/80 Code: 8480-6 BMI: 31.5 Code: 78499-3 Heart Rate 1: 80 bpm Height: 6' [...] care Encounters Encounter Performer Location Codes Date ([id number]) OFFICE/OUTPATIENT VISIT EST Diagnosis: Esophageal reflux[ICD10: K21.9] Diagnosis: History of bladder cancer[ICD10: Z85.51] Xiomara BETTENCOURT DO [employer] CPT-4: 85394 12/07/2019 ([id number]) OFFICE/OUTPATIENT VISIT EST Diagnosis: DM w/o complication type II, uncontrolled[ICD10: E11.65] Diagnosis: Other dyspnea and respiratory abnormality[ICD10: R06.09] Xiomara BETTENCOURT DO [employer] CPT-4: 25761 10/27/2019 ([id number]) OFFICE/OUTPATIENT VISIT EST Diagnosis: Chronic obstructive pulmonary disease, unspecified[ICD10: J44.9] Diagnosis: DM w/o complication type II, uncontrolled[ICD10: E11.65] Diagnosis: Edema[ICD10: R60.9] [facility]: 19606 10/20/2019 ([id number]) OFFICE/OUTPATIENT VISIT EST Diagnosis: Other dyspnea and respiratory abnormality[ICD10: R06.09] Diagnosis: Obstructive sleep apnea[ICD10: G47.33] Diagnosis: Hypotension[ICD10: I95.9] Xiomara Bettencourt [facility] CPT -4: 32099 10/12/2019 ([id number]) OFFICE/OUTPATIENT VISIT EST Diagnosis: Upper respiratory infection[ICD10: J06.9] [facility]: 43522 06/02/2019 ([id number]) OFFICE/OUTPATIENT VISIT EST Diagnosis: Sinusitis[ICD10: J32.9] Diagnosis: Allergic rhinitis[ICD10: J30.9] [facility]: 24679 05/13/2019 ([id number]) OFFICE/OUTPATIENT VISIT EST Diagnosis: Pneumonia[ICD10: J18.9] [facility] CPT-4: 02674 04/26/2019 ([id number]) OFFICE/OUTPATIENT VISIT EST Diagnosis: Acute sinusitis, unspecified[ICD10: J01.90] Pennie BETTENCOURT [facility] CPT-4: 25663 02/22/2019 ([id number]) OFFICE/OUTPATIENT VISIT EST Diagnosis: Cervicalgia[ICD10: M54.2] [facility] CPT-4: 22272 11/25/2018 ([id number]) OFFICE/OUTPATIENT VISIT EST Diagnosis: Acute sinusitis, unspecified[ICD10: J01.90] Diagnosis: Myalgia, unspecified site[ICD10: M79.10] Diagnosis: Cervicalgia[ICD10: M54.2] Xi[facility]ara [facility] CPT-4: 71502 11/19/2018 ([id number]) OFFICE/OUTPATIENT VISIT EST Diagnosis: Low back pain[ICD10: M54.5] Diagnosis: Essential (primary) hypertension[ICD10: I10] Diagnosis: 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, 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] Diagnosis: Paroxysmal atrial fibrillation[ICD10: I48.0] [facility]: 83118 07/22/2018 ([id number]) OFFICE/OUTPATIENT VISIT EST Diagnosis: Type 2 diabetes mellitus with diabetic neuropathy, unspecified[ICD10: E11.40] Diagnosis: Hyperlipidemia, unspecified[ICD10: E78.5] Diagnosis: Essential (primary) hypertension[ICD10: I10] Diagnosis: Chronic kidney disease, stage 1[ICD10: N18.1] Diagnosis: Benign prostatic hyperplasia with lower urinary tract symptoms[ICD10: N40.1] Diagnosis: FLU VACCINE[ICD10: Z23] Xiomara Gan [facility] CPT-4: 83698 04/21/2018 OFFICE/OUTPATIENT VISIT EST Diagnosis: Type 2 diabetes mellitus with hyperglycemia[ICD10: E11.65] Diagnosis: Essential (primary) hypertension[ICD10: I10] Diagnosis: Mixed hyperlipidemia[ICD10: E78.2] Diagnosis: Other fatigue[ICD10: R53.83] [facility] 98106 01/06/2018 ([id number]) OFFICE/OUTPATIENT VISIT EST Diagnosis: Type 2 diabetes mellitus with diabetic neuropathy, unspecified[ICD10: E11.40] Diagnosis: Essential (primary) hypertension[ICD10: I10] Diagnosis: Pain in right thigh[ICD10: M79.651] Diagnosis: Pain in left leg[ICD10: M79.605] Diagnosis: Localized swelling, mass and lump, left lower limb[ICD10: R22.42] Diagnosis: OSTEOARTHRISIS MULTI SITES[ICD10: M19.90] Diagnosis: FLU VACCINE[ICD10: Z23] Xiomara Gan [facility] CPT-4: 87183 04/22/2017 ([id number]) OFFICE/OUTPATIENT VISIT EST Diagnosis: Essential (primary) hypertension[ICD10: I10] Diagnosis: Type 2 diabetes mellitus with hyperglycemia[ICD10: E11.65] Diagnosis: Angina pectoris, unspecified[ICD10: I20.9] Xiomara LARA DelphineEdvin ARELYSHAANROBI [facility] CPT-4: 24331 10/10/2016 ([id number]) OFFICE/OUTPATIENT VISIT EST Diagnosis: Cough[ICD10: R05] Diagnosis: Wheezing[ICD10: R06.2] Diagnosis: Chronic obstructive pulmonary disease, unspecified[ICD10: J44.9] Shannan Grimes XIOMARA DelphineEdvin ARELYSHAANROBI [facility] CPT-4: 81084 08/31/2015 OFFICE/OUTPATIENT VISIT EST Diagnosis: Acute bronchitis, unspecified[ICD10: J20.9] Diagnosis: Wheezing[ICD10: R06.2] Kelsie DaMessi LARA DelphineEdvin ARELYSHAANShaheen Magdaleno [facility] CPT-4: 94938 08/29/2015 ([id number]) OFFICE/OUTPATIENT VISIT EST Diagnosis: Type 2 diabetes mellitus with diabetic neuropathy, unspecified[ICD10: E11.40] Diagnosis: Hyperlipidemia, unspecified[ICD10: E78.5] Diagnosis: Essential (primary) hypertension[ICD10: I10] Diagnosis: Encounter for general adult medical examination without abnormal findings[ICD10: Z00.00] Xiomara LARA DelphineEdvin ARELYSHAANROBI [facility] CPT-4: 36541 07/26/2015 OFFICE/OUTPATIENT VISIT EST Diagnosis: Type 2 diabetes mellitus with hyperglycemia[ICD10: E11.65] Diagnosis: Unspecified osteoarthritis, unspecified site[ICD10: M19.90] Diagnosis: Other instability, right knee[ICD10: M25.361] Kelsiesa Humera LARA DelphineEdvin KODAK [facility] CPT-4: 97630 07/24/2015 ([id number]) OFFICE/OUTPATIENT VISIT EST Diagnosis: Pain in leg, unspecified[ICD10: M79.606] Diagnosis: Type 2 diabetes mellitus with diabetic neuropathy, unspecified[ICD10: E11.40] Xiomara LARA DelphineEdvin ARELYSHAANROBI [facility] CPT-4: 74503 05/01/2015 ([id number]) OFFICE/OUTPATIENT VISIT EST Diagnosis: MALAISE AND FATIGUE[ICD9: 780.79] Diagnosis: 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, 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] Diagnosis: CAD[ICD9: 414.00] Diagnosis: ANEMIA NOS[ICD9: 285.9] [facility] CPT-4: 23237 01/17/2015 ([id number]) OFFICE/OUTPATIENT VISIT EST Diagnosis: Skin lesion[ICD9: 709.9] Xiomara HAND [facility] CPT-4: 20088 09/29/2014 OFFICE/OUTPATIENT VISIT EST Diagnosis: GASTROENTERITIS[ICD9: 558.9] Diagnosis: GERD[ICD9: 530.81] Kelsie Humera [facility] CPT-[facility]: 22691 02/18/2014 ([id number]) OFFICE/OUTPATIENT VISIT EST Diagnosis: 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I, UNCONTROLLED[ICD9: 250.02] Xiomara BETTENCOURT [facility] CPT-4: 47148 07/29/2013 ([id number]) OFFICE/OUTPATIENT VISIT EST Diagnosis: FLU VACCINE[ICD9: V04.81] Xiomara [facility] CPT-4: 54392 07/22/2013 ([id number]) OFFICE/OUTPATIENT VISIT EST Diagnosis: 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I, UNCONTROLLED[ICD9: 250.02] Diagnosis: HYPERTENSION[ICD9: 401.9] Xiomara [facility] CPT-4: 05377 05/26/2013 ([id number]) OFFICE/OUTPATIENT VISIT EST Diagnosis: MONONEURITIS[ICD9: 355.9] Diagnosis: RESTLESS LEGS SYNDROME[ICD9: 333.94] Diagnosis: HYPERTENSION[ICD9: 401.9] Diagnosis: CAD[ICD9: 414.00] Diagnosis: Weakness[ICD9: 780.79] Xiomara [facility] CPT-4: 99806 04/28/2013 ([id number]) OFFICE/OUTPATIENT VISIT EST Diagnosis: 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[ICD9: 250.01] Diagnosis: MONONEURITIS[ICD9: 355.9] Diagnosis: HYPERLIPIDEMIA NEC/NOS[ICD9: 272.4] Diagnosis: CAD[ICD9: 414.00] Xiomara Gan [employer] CPT-4: 42318 03/12/2013 OFFICE/OUTPATIENT VISIT NEW Diagnosis: CAD[ICD9: 414.00] Diagnosis: HYPERLIPIDEMIA NEC/NOS[ICD9: 272.4] Diagnosis: HYPERTENSION[ICD9: 401.9] Diagnosis: Neuropathy[ICD9: 355.9] Diagnosis: RESTLESS LEGS SYNDROME[ICD9: 333.94] Xiomara JACKMAN [facility] CPT-4: 37913 03/11/2013 Plan of Care Planned Activity Notes Codes Status Date Visit Diagnosis Plan: Diabetes mellitus type 1, contro lled, insulin dependent Discussion: Lab discussed Accuchecks daily Continue current meds Check CMP and HbA1C in 3mos then fwup ICD-9 : 250.01 ICD-10 : E10.9 01/12/2020 Visit Diagnosis Plan: Encounter for [facility] adult medical examination without abnormal findings Discussion: [...] WALL COMP renal US L OINC : 48670-3 Pending 12/08/2019 Visit Diagnosis Plan: History of bladder cancer Discus jaswinder: Check CT abdomen/pelvis ICD-9 : V10.51 ICD-10 : Z85.51 12/07/2019 Visit Diagnosis Plan: Esophageal reflux Discussion: Ta kesha omeprazole daily Will try pancreatic enzymes ICD-9 : 530.81 ICD-10 : K21.9 12/07/2019 Appointment: Xiomara Bettencourt [facility] [phone] [facility] [facility] 12/07/2019 Care Plan: CT PELVIS [...] : R06.09 10/27/2019 Appointment: Xiomara Bettencourt WPtel: [facility] FO[facility] 10/27/2019 Patient Education: gabapentin- OptimizeRX Coupon [phone] https://www.[email or web address]/[email or web address]/resources/getResource/61/[email or web address] Completed 10/27/2019 Visit Diagnosis Plan: DM w/o [...] J44.9 10/20/2019 Appointment: Xiomara Bettencourt WPtel: [address] [place], [place] [id number] [place] FOLLOW UP 10/20/2019 Patient Education: furosemide- Opt[employer] Coupon [phone] https://[email or web address]/getResource/[email or web address] Completed 10/20/2019 Visit Diagnosis Plan: Obstructive sleep [...] : I95.9 10/12/2019 Appointment: Xiomara Bettencourt WPtel: [address] [place], [place] [phone] TELEMEDICINE 10/12/2019 Appointment: Xiomara Bettencourt WPtel: [address] [place], [place] [phone] [place] RESCHEDULED 09/23/2019 Care Plan: COMPREHEN METABOLIC PANEL SERGEI NC : 63731-6 Pending 09/20/2019 Care Plan: LIPID PANEL LOINC : 36753-9 Pending 09/20/2019 Care Plan: A1C HPLC LOINC : 05059-6 Pending 09/20/2019 Care Plan: COMPLETE CBC W/AUTO DIFF WBC LOINC : 36321-1 Pending 09/20/2019 Visit Diagnosis Plan: Upper respiratory infection Disc ussion: discussed that most likely viral. push fluids and rest through the week. patient has left over levaquin at home (5 days worth). instructed patient to start taking if he gets worse later this week and to call us next week if no improvement. ICD-9 : 465.9 ICD-10 : J06.9 06/02/2019 Appointment: Pennie Pizarro [address] [place], [place] [phone] ACUTE ILLNESS 06/02/2019 Visit Diagnosis Plan: Allergic [...] ICD-10 : J30.9 05/13/2019 Appointment: Pennie Pizarro [address] [place], [place] [phone] ACUTE ILLNESS 05/13/2019 Appointment: Xiomara Bettencourt WPtel: [...] ICD-10 : J18.9 04/26/2019 Appointment: Pennie Pizarro [address] [place], [place] [phone] FOLLOW UP 04/26/2019 Visit Diagnosis Plan: Acute [...] ICD-10 : J01.90 02/22/2019 Appointment: Pennie Pizarro [address] [place], [place] [phone] ACUTE ILLNESS 02/22/2019 Patient Education: prednisone- Opt[employer] Coupon [phone] https://[email or web address]/resources/getResource/[email or web address] Completed 02/22/2019 Visit Diagnosis Plan: Cervicalgia Discussion: Check Ce rvical Spine X-ray Will likely need PT ICD-9 : 723.1 ICD-10 : M54.2 11/25/2018 Appointment: Xiomara Bettencourt WPtel: [facility] ACUTE ILLNESS 11/25/2018 Visit [...] Tyle... 11/19/2018 Appointment: Xiomara Bettencourt WPtel: [address] [place] [id number] ACUTE ILLNESS 11/19/2018 Patient Education: baclofen- OptimizeRX Coupon [phone] [email or web address]/resources/getResource/61/[email or web address] Completed 11/19/2018 Visit Diagnosis Plan: Paroxysmal atrial [...] : I10 07/22/2018 Appointment: Xiomara Bettencourt WPtel: [facility] US FOLLOW UP 07/22/2018 [...] Trial of flomax Call in 1 mo [facility] on how doing Follow Up: 4 months ICD-9 : 600.21 ICD-10 : N40.1 04/21/2018 Appointment: Xiomara Bettencourt [facility] [phone] [facility] [place] FOLLOW UP 04/21/2018 Patient Education: Patient [...] ICD-10 : E78.2 01/06/2018 Appointment: Pennie Pizarro [address] [place] [address] MEDICATION REVIEW 01/06/2018 Patient Education: Patient Medication Summary Completed 01/06/2018 Appointment: Xiomara Bettencourt WPtel: [address] [place] [address] NO SHOW 01/05/2018 Appointment: Xiomara Bettencourt WPtel: [address] [place] [address] [place] CANCELED 12/31/2017 Visit Diagnosis Plan: Actinic keratosis Discussion: Cr yotherapy as above but will see derm if lesions do not resolve ICD-9 : 702.0 ICD-10 : L57.0 10/22/2017 Appointment: Xiomara Bettencourt WPtel: [address] [place] [address] ACUTE ILLNESS 10/22/2017 Patient Education: Patient Medication [...] : M79.605 04/22/2017 Appointment: Xiomara Bettencourt WPtel: [address] [place], [place] [phone] [place] FOLLOW UP 04/22/2017 Patient Education: Patient Medication Summary Completed 04/22/2017 Patient Education: Patient Medication Summary Completed 04/16/2017 Care Plan: COMPREHEN METABOLIC PANEL SERGEI NC : 75162-1 Pending 04/16/2017 Care Plan: LIPID PANEL LOINC : 60882-5 Pending 04/16/2017 Care Plan: CBC Pending 04/16/2017 Care Plan: A1C HPLC LOINC : 59638-7 Pending 04/16/2017 Ref[facility]: [facility]ocenc[facility] Good[facility] [phone] [facility] [facility] App[facility]ment Confirmed 10/14/2016 Visit Diagnosis Plan: Type 2 diabetes mellitus with hy perglycemia Discussion: Continue toujeo Accuchecks BID Follow Up: 4 months ICD-9 : 250.02 ICD-10 : E11.65 10/10/2016 Visit Diagnosis Plan: Angina pectoris, unspecified Dis cussion: Continue imdur and see cardiology To ER if chest pain returns ICD-9 : 413.9 ICD-10 : I20.9 10/10/2016 Appointment: Xiomara Bettencourt WPtel: [facility] US FOLLOW UP 10/10/2016 Patient Education: Patient Medication Summary Completed 10/10/2016 Patient Education: Patient Medication Summary Completed 09/16/2016 Care Plan: COMPREHEN METABOLIC PANEL SERGEI NC : 32758-2 Pending 09/16/2016 Care Plan: ASSAY THYROID STIM HORMONE Pen ding 09/16/2016 Care Plan: ASSAY OF FREE THYROXINE Pendin g 09/16/2016 Care Plan: LIPID PANEL LOINC : 16537-0 Pending 09/16/2016 Care Plan: CBC Pending 09/16/2016 Care Plan: A1C HPLC LOINC : 61154-2 Pending 09/16/2016 Visit Plan: CXR now to further evaluate symptoms Suspect viral since he has been on 2 rounds of antibiotics If chronic lung disease evident, will consider keeping on symbicort mcfp Sample inhaler given today with instructions on use Continue oral prednisone, would like to avoid injection if possible considering his DM status and he is stable right now Continue albuterol PRN Will call with CXR results 08/31/2015 Appointment: Shannan Grimes [address] [place] [address] 08/31 confirmed- SP ACUTE ILLNESS 08/31/2015 Patient Education: Patient Medication Summary Completed 08/31/2015 Visit Plan: Albuterol INH via SVN every 4 hours Prednisone 20 mg PO BID Notify for worsening symptoms 08/29/2015 Appointment: Kelsie Grubbs WPtel: [address] [place] [address] ACUTE ILLNESS 08/29/2015 Patient Education: Patient Medication Summary Completed 08/29/2015 Appointment: Xiomara Bettencourt WPtel: [address] [place], [place] [address] 07/26/2015 Patient Education: Patient Medication Summary Completed 07/26/2015 Visit Plan: Return in am for fasting lab s - CBC, CMP, TSH, Free T4, HgbA1C Change Levemir to Toujeo - Continue 35 Units q am - sample given Start physical Therapy for increased quadriceps strengthening and decreased pain in knees, bilaterally. 07/24/2015 Appointment: Kelsie Grubbs WPtel: [address] [place], [place] [id number] 07/21 appt confirmed cn FOLLOW UP 07/24/19 Appointment: Kelsie Grubbs WPtel: [address] [place] [address] FOLLOW UP 07/24/2015 Patient Education: Patient Medication [...] with insulin 05/01/2015 Appointment: Xiomara Bettencourt WPtel: [address] [place] [address] 04/28 confirmed~sl ACUTE ILLNESS 05/01/2015 Patient Education: Patient Medication Summary Completed 05/01/2015 Patient Education: Patient Medication Summary Completed 01/19/2015 Care Plan: URINALYSIS AUTO W/O SCOPE SERGEI [place] : 35675-2 Pending 01/19/2015 Visit Plan: I have went through his medi cations in past and stopped meds but he adjusts his meds on his own and has restarted some Stop Amaryl Once again discussed not using indomethacin routinely due to taking plavix and aspirin daily and fpc use is dangerous Check CBC, CMP, TSH, free T4, B12 and HbA1C Patient has seen Cardiology recently but no cardiac cath done--had chemical stress test 01/17/2015 Appointment: Xiomara Bettencourt WPtel: [address] [place], [place] [id number] 01/16 vm cn ACUTE ILLNESS 01/17/2015 Patient Education: Patient Medication Summary Completed 01/17/2015 Visit Plan: See Dr. Garvin for removal 09/29/2014 Appointment: Xiomara Bettencourt WPtel: [address] [place] [address] ACUTE ILLNESS 09/29/2014 Referral: Colt Garvin WPtel: [address] Referral Initiated 09/29/2014 Patient Education: Patient Medication Summary Completed 09/29/2014 Visit Plan: Check CBC, CMP, TSH, free T4 , HbA1C, Lipids Accuchecks daily alternating times Patient has been adjusting own meds and has not taken any cholesterol meds for sometime Will check into surgery on right knee at [facility] Check carotid dopplers 08/04/2014 Appointment: Xiomara Bettencourt WPtel: [address] [place] [address] Annual Well Visit 08/04/2014 Patient Education: Patient Medication Summary Completed 08/04/2014 Appointment: Kelsie Grubbs WPtel: [address] [place] [address] ACUTE ILLNESS 02/18/2014 Patient Education: Patient Medication Summary Completed 02/18/2014 Patient Education: [facility] - Saving AutoInj - 18+ - Dynamic Portal ID Completed 02/18/2014 Appointment: Xiomara Bettencourt WPtel: [address] [place] [address] LAB 09/08/2013 Visit Plan: Check fasting lab in 1mo Con tinue Lantus and accuchecks at least BID 07/29/2013 Appointment: Xiomara Bettencourt WPtel: [address] [place] [address] FOLLOW UP 07/29/2013 Patient Education: Patient Medication Summary Completed 07/29/2013 Appointment: Xiomara Bettencourt WPtel: [address] [place] [address] INJECTION 07/22/2013 Patient Education: Patient Medication Summary Completed 07/22/2013 Visit Plan: Pt has been self-adjusting m eds Stop metformin and amaryl Use Levemir 25u sc BID and call in 1wk with BS readings 05/26/2013 Appointment: Xiomara Bettencourt WPtel: [address] [place] [address] FOLLOW UP 05/26/2013 Patient Education: Patient Medication Summary Completed 05/26/2013 Visit Plan: DC Metformin Increase Lantus to 30u sc daily Change lisinopril to lisinopril HCT 20/25mg q AM Continue Gabapentin at current dose 04/28/2013 Appointment: Xiomara Bettencourt WPtel: [address] [place], [place] [id number] FOLLOW UP 04/28/2013 Patient Education: Patient Medication Summary Completed 04/28/2013 Appointment: Xiomara Bettencourt WPtel: [address] [place], [place] [phone] [place] LAB 03/12/2013 Patient Education: Patient Medication [...] disease evident, 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 Check fasting [...]
--- OUTSIDE RECORDS SUMMARY | 2020-02-02 21:32 | XMS REPORT | CCD ---
Author Author Sheng Bettencourt D.O. Organization [facility] DelphineEdvin BETTENCOURT DO [facility] Address [address] [place] [address] Phone Care Team Providers Care Ocular Care Technologist Name Role Phone PP Unavailable CCM Unavailable Summary Purpose Interface Exchange Insurance Providers Payer name Policy type / Coverage type Covered constitution party ID Effective Begin Date Effective End Date WPS MEDICARE PART B [place] Medicare Part B [id number] 2018 Unknown [facility] Medicare Part B [id number] 2018 Un known Family history Mother Diagnosis Age At Onset Diabetes mellitus Type 2 Unknown Hypercholesterolemia Unknown Father Diagnosis Age At Onset No Family Disease Entered N/A Social History Social History Element Codes Description Effective Dates Marital status Unknown 03/11/2013 Number of children Unknown 4 03/11/2013 Employment Unknown Retired 03/11/[address]: 7540957 Former smoker 03/11/[address]: 965647 Currently drinks alc ohol Socially 03/11/2013 Has the patient ever used illegal drugs? Unknown Has nev er used illegal drugs 03/11/2013 Allergies, Adverse Reactions, Alerts Substance Reaction Codes Entered Date Inactivated Date Status * NO KNOWN FOOD ALLERGIES Unknown 03/11/2013 No Inactiv e Date Active * NO KNOWN ENVIRONMENTAL ALLERGIES Unknown 03/11/2013 N o Inactive Date Active _ Unknown 03/11/2013 No Inactive Date Active Problems Condition Codes Effective Dates Condition Status Renal cyst, left ICD-9: 753.10 ICD-10: N28.1 12/08/2019 Active Esophageal reflux ICD-9: 530.81 ICD-10: K21.9 12/07/2019 Active History of bladder cancer ICD-9: V10.51 ICD-10: Z85.51 12/07/2019 Active DM w/o complication type II, uncontrolled ICD-9: 250.0 2 ICD-10: E11.65 08/04/2014 Active Other dyspnea and respiratory abnormality ICD-9: 786.0 9 ICD-10: R06.09 10/12/2019 Active Edema ICD-9: 782.3 ICD-10: R60.9 10/20/2019 Active Hypotension ICD-9: 458.9 ICD-10: I95.9 10/12/2019 Active Obstructive sleep apnea ICD-9: 327.23 ICD-10: G47.33 10/12/2019 Active Chronic kidney disease, stage 1 ICD-9: 585.1 ICD-10: N18.1 04/21/2018 Active Essential (primary) hypertension ICD-9: 401.9 ICD-10: I10 08/04/2014 Active Hyperlipidemia, unspecified ICD-9: 272.4 ICD-10: E78.5 08/04/2014 Active Paroxysmal atrial fibrillation ICD-9: 427.31 ICD-10: I48.0 07/22/2018 Active Upper respiratory infection ICD-9: 465.9 ICD-10: J06.9 06/02/2019 Active Allergic rhinitis ICD-9: 477.9 ICD-10: J30.9 05/13/2019 Active Sinusitis ICD-9: 473.9 ICD-10: J32.9 05/13/2019 [...] unspecified ICD-9: 466.0 ICD-10: J20.9 08/28/2015 Active Encounter for general adult medical examination withou t abnormal findings ICD-9: V70.0 ICD-10: Z00.00 08/04/2014 Active Other instability, right knee ICD-9: 718.86 [...] Start Date Stop Date Status Fill Instructions simvastatin 20 mg tablet RxNorm: 497965 1 Tablet(s) Oral QD 020 04/02/2020 Active Needs updated fasting labs b efore 90 day refill Flomax 0.4 mg capsule RxNorm: 906930 TAKE TWO CAPSULES BY MOUTH EVERY EVENING 11/11/2019 No Stop Date Active glimepiride 2 mg tablet RxNorm: 023749 1 Tablet(s) Oral QD 10/27/19 20 No Stop Date Active gabapentin 400 mg capsule RxNorm: 086405 1 Capsule(s) Oral QPM 10/0604/24/2020 Active potassium chloride ER 20 mEq tablet,extended release RxNorm: 850546 1 Tablet(s) Oral QD to take with lasix 10/20/2019 10/26/2019 Inactive furosemide 40 mg tablet RxNorm: 978860 1 Tablet(s) Oral QAM for swelling 10/20/2019 10/26/2019 Inactive albuterol sulfate HFA 90 mcg/actuation aerosol inhaler RxNor m: 8188573 1-2 Puff(s) Inhalation as needed 10/12/2019 No Stop Date Active Zyrtec 10 mg tablet RxNorm: 2280548 1 Tablet(s) Oral QAM 10/12/2019 No Stop Date Active aspirin 81 mg tablet,delayed release RxNorm: 369455 1 Tablet(s) Oral QD 10/12/2019 No Stop Date Active Symbicort 160 mcg-4.5 mcg/actuation HFA aerosol inhaler RxNo rm: 2944421 2 Puff(s) Inhalation QD 10/12/2019 No Stop Date Active lisinopril 20 mg tablet RxNorm: 692866 1 Tablet(s) Oral QD 10/12/1901/10/2020 Active simvastatin 20 mg tablet RxNorm: 423804 1 Tablet(s) Ora l QD Needs updated fasting labs 09/20/2019 01/02/2020 Inactive Needs updated fa sting labs before 90 day refill Flomax 0.4 mg capsule RxNorm: 181803 TAKE TWO CAPSULES BY MOUTH EVERY EVENING 08/03/2019 11/10/2019 Inactive gabapentin 400 mg capsule RxNorm: 456017 TAKE ONE CAPSU LE BY MOUTH EVERY EVENING 08/02/2019 10/26/2019 Inactive simvastatin 20 mg tablet RxNorm: 095102 1 Tablet(s) Ora l QD Needs updated fasting labs 07/21/2019 08/19/2019 Inactive Needs updated fa sting labs before 90 day refill simvastatin 20 mg tablet RxNorm: 214503 1 Tablet(s) Ora l QD Needs updated fasting labs 06/23/2019 07/20/2019 Inactive Needs updated fa sting labs before 90 day refill Flomax 0.4 mg capsule RxNorm: 444796 1 Capsule(s) Oral QD 05/13/2019 10/19/2019 Inactive Flomax 0.4 mg capsule RxNorm: 246491 TAKE TWO CAPSULES BY MOUTH EVERY EVENING 03/19/2019 05/12/2019 Inactive Augmentin 500 mg-125 mg tablet RxNorm: 944774 1 Tablet(s) PO BID 03/03/2019 Inactive baclofen 10 mg tablet RxNorm: 254689 TAKE ONE TABLET BY MOUTH EVERY NIGHT AT BEDTIME FOR PAIN OR SPASMS 01/14/2019 05/12/2019 Inactive Flomax 0.4 mg capsule RxNorm: 629023 TAKE TWO CAPSULES BY MOUTH EVERY EVENING 01/12/2019 03/18/2019 Inactive gabapentin 400 mg capsule RxNorm: 689172 1 Capsule(s) PO QPM 201806/27/2019 Inactive baclofen 10 mg tablet RxNorm: 644492 1 Tablet(s) PO QHS for my n/spasm 12/15/2018 01/13/2019 Inactive simvastatin 20 mg tablet RxNorm: 907914 TAKE ONE TABLET BY MOUT H DAILY 12/11/2018 06/22/2019 Inactive OneTouch Ultra Blue Test Strip RxNorm: Use 1 rigoberto t strip three times daily to check blood sugar (Dx:E11.65) 12/07/2018 No Stop Date Active gabapentin 400 mg capsule RxNorm: 956692 TAKE ONE CAPSU LE BY MOUTH EVERY EVENING 12/04/2018 12/29/2018 Inactive baclofen 10 mg tablet RxNorm: 897396 1 Tablet(s) PO QHS for my n/spasm 11/19/2018 12/15/2018 Inactive Flomax 0.4 mg capsule RxNorm: 020147 2 Capsule(s) PO QPM 09/15/2018 0 12/13/2018 Inactive WOULD LIKE 90DS!!! gabapentin 400 mg capsule RxNorm: 064303 TAKE ONE CAPSU LE BY MOUTH EVERY EVENING 07/21/2018 10/18/2018 Inactive simvastatin 20 mg tablet RxNorm: 031732 1 Tablet(s) PO QD 06/15/2018 12/10/2018 Inactive Flomax 0.4 mg capsule RxNorm: 992625 TAKE TWO CAPSULES BY MOUTH EVERY EVENING 06/02/2018 09/15/2018 Inactive WOULD LIKE 90DS!!! Flomax 0.4 mg capsule RxNorm: 412229 2 Capsule(s) PO QPM 04/21/2018 1 07/20/2017 Inactive simvastatin 20 mg tablet RxNorm: 641813 1 Tablet(s) PO QD Take 1 tablet by mouth daily. Patient due for labwork before further refill. 04/06/20182017 Inactive simvastatin 20 mg tablet RxNorm: 531968 Tablet(s) TAKE ONE TABLET BY MOUTH DAILY 03/25/2018 06/15/2018 Inactive simvastatin 20 mg tablet RxNorm: 573669 Tablet(s) TAKE ONE TABLET BY MOUTH DAILY due for appt 12/29/2017 03/25/2018 Inactive simvastatin 20 mg tablet RxNorm: 304034 TAKE ONE TABLET BY MOUT H DAILY 09/03/2017 12/29/2017 Inactive simvastatin 20 mg tablet RxNorm: 537863 1 Tablet(s) PO QD 10/22/2016 11/18/2018 Inactive isosorbide mononitrate ER 60 mg tablet,extended release 24 h r RxNorm: 581342 1 Tablet(s) PO QD 10/22/2016 04/21/2017 Inactive isosorbide mononitrate ER 60 mg tablet,extended release 24 h r RxNorm: 497038 1 Tablet(s) PO QD 10/10/2016 10/21/2016 Inactive simvastatin 20 mg tablet RxNorm: 087567 1 Tablet(s) PO QD 10/10/2016 10/21/2016 Inactive gabapentin 400 mg capsule RxNorm: 848680 1 Capsule(s) PO QPM 201609/20/2016 Inactive Toujeo SoloStar 300 unit/mL (1.5 mL) subcutaneous insulin pe n RxNorm: 6921661 35 Unit(s) SQ QAM 07/23/2016 07/22/2016 Inactive Toujeo SoloStar 300 unit/mL (1.5 mL) subcutaneous insulin pe n RxNorm: 2582465 40 Unit(s) SQ QAM 09/01/2015 No Stop Date Active Symbicort 160 mcg-4.5 mcg/actuation HFA aerosol inhaler RxNo rm: 1182050 2 Puff(s) INH BID 08/31/2015 09/09/2015 Inactive prednisone 20 mg tablet RxNorm: 013797 1 Tablet(s) PO BID 08/29/2015 09/02/2015 Inactive albuterol sulfate 2.5 mg/3 mL (0.083 %) solution for n ebulization RxNorm: 400192 1 Unit(s) INH Q4H as needed 08/29/2015 10/09/2016 Inactive levothyroxine 75 mcg tablet RxNorm: 785920 1 Tablet(s) PO QD 201507/27/2015 Inactive levothyroxine 75 mcg tablet RxNorm: 356531 1 Tablet(s) PO QD 201511/18/2018 Inactive levothyroxine 75 mcg tablet RxNorm: 656550 1 Tablet(s) PO QD 201507/27/2015 Inactive lisinopril 20 mg-hydrochlorothiazide 25 mg tablet RxNorm: 19 7887 TAKE ONE TABLET BY MOUTH EVERY MORNING. REPLACES PLAIN LISINOPRIL 03/06/2015 04/21/2017 Inactive lisinopril 20 mg-hydrochlorothiazide 25 mg tablet RxNorm: 19 7887 TAKE ONE TABLET BY MOUTH EVERY MORNING. REPLACES PLAIN LISINOPRIL 09/08/2014 03/05/2015 Inactive allopurinol 100 mg tablet RxNorm: 841840 1 Tablet(s) PO BID 015 10/09/2016 Inactive [SAVINGS FOR NON-COVERED YULIA GS -- BIN:[id number], PCN: [id number], Group: [id number], ID# [id number], Questions: . THIS IS NOT INSURANCE.] levothyroxine 50 mcg tablet RxNorm: 999163 1 Tablet(s) PO QD 201407/26/2015 Inactive [AttnRPh: Saving apply/adjud icate RxGRP:SG20 RxBIN:[id number] RxPCN: ID#:[id number]] Zegerid 40 mg-1.1 gram capsule RxNorm: 453750 1 Capsule(s) PO QD 03/03/2014 Inactive [AttnRPh: Saving apply/adjud icate RxGRP:SG20 RxBIN:[id number] RxPCN: ID#:[id number]] ondansetron 8 mg disintegrating tablet RxNorm: 120430 1 Tablet(s) PO Q8H as needed for [...] 07/28/2013 Inactive gabapentin 400 mg capsule RxNorm: 684352 1 Capsule(s) PO QPM 201207/28/2013 Inactive gabapentin 400 mg capsule RxNorm: 976994 1 Capsule(s) PO QPM 201206/26/2013 Inactive lisinopril 20 mg-hydrochlorothiazide 25 mg tablet RxNorm: 82 3971 1 Tablet(s) PO QAM replaces plain lisinopril 04/28/2013 07/29/2013 Inactive gabapentin 400 mg capsule RxNorm: 357734 1 Capsule(s) PO QPM 201204/27/2013 Inactive gabapentin 400 mg capsule RxNorm: 548635 1 Capsule(s) PO QPM 201203/10/2013 Inactive gabapentin 400 mg capsule RxNorm: 744371 1 Capsule(s) PO QPM 201203/14/2013 Inactive Lantus Solostar 100 unit/mL (3 mL) Sub-Q Insulin Pen RxNorm: 445503 20 Unit(s) SQ QPM 03/11/2013 03/15/2013 Inactive Toujeo SoloStar 300 unit/mL (1.5 mL) subcutaneous insulin pe n RxNorm: 7097953 35 Unit(s) SQ QAM No Start Date Active omeprazole 20 mg capsule,delayed release RxNorm: 820345 1 Capsu le(s) PO QD No Start Date Active isosorbide mononitrate ER 60 mg tablet,extended release 24 h r RxNorm: 576157 1 Tablet(s) PO QD No Start Date Active Eliquis 5 mg tablet RxNorm: 6960116 1 Tablet(s) PO BID No Start Date Active metformin 500 mg tablet RxNorm: 388465 1 Tablet(s) PO BID No Start Da te Active levothyroxine 50 mcg tablet RxNorm: 339880 1 Tablet(s) PO QD No Start Date Active Norvasc 10 mg tablet RxNorm: 494873 1 Tablet(s) PO QHS No Start Date Active Toujeo SoloStar 300 unit/mL (1.5 mL) subcutaneous insulin pe n RxNorm: 2680899 30 Unit(s) SQ QAM No Start Date Active glimepiride 4 mg tablet RxNorm: 426191 1 Tablet(s) PO QHS No Start Date 07/26/2015 Inactive allopurinol 100 mg tablet RxNorm: 837824 1 Tablet(s) PO BID No Star t Date 08/10/2014 Inactive Lantus Solostar 100 unit/mL (3 mL) subcutaneous insulin pen RxNorm: 976476 30 Unit(s) SQ QD No Start Date 08/03/2014 Inactive Levemir FlexTouch 100 unit/mL (3 mL) subcutaneous insulin pe n RxNorm: 198909 25 Unit(s) SQ QAM No Start Date 07/23/2015 Inactive Lantus 100 unit/mL Sub-Q RxNorm: 490344 30 Unit(s) SQ QHS No Start Date 05/25/2013 Inactive Lantus Solostar 100 unit/mL (3 mL) Sub-Q Insulin Pen RxNorm: 848586 20 Unit(s) SQ QPM No Start Date 03/10/2013 Inactive OneTouch Ultra Blue Test Strip RxNorm: Use 1 rigoberto t strip three times daily to check blood sugar (Dx:E11.65) No Start Date 12/06/2018 Inactive Levemir FlexTouch 100 unit/mL (3 mL) subcutaneous insulin pe n RxNorm: 231813 30- 35 Unit(s) SQ QAM No Start Date 07/23/2015 Inactive Levemir Flexpen 100 unit/mL (3 mL) solution subcutaneo us insulin pen RxNorm: 207366 20-25 Unit(s) SQ QD No Start Date 07/28/2013 Inactive lisinopril 20 mg tablet RxNorm: 811041 1 Tablet(s) PO QD No Start D ate 10/11/2019 Inactive indomethacin ER 75 mg capsule,extended release RxNorm: 51276 2 1 Capsule(s) PO QAM No Start Date 04/27/2013 Inactive indomethacin ER 75 mg capsule,extended release RxNorm: 79919 2 1 Capsule(s) PO QD No Start Date 01/16/2015 Inactive Chlortab-4 oral RxNorm: 269986 oral No Start Date 10/11/2019 Inac tive Vitamin D3 5,000 unit tablet RxNorm: 961481 1 Tablet(s) PO QD No St art Date 08/03/2014 Inactive Levemir Flexpen 100 unit/mL (3 mL) solution subcutaneo us insulin Pen RxNorm: 566163 20 Unit(s) SQ QHS No Start Date 03/10/2013 Inactive Vytorin 10 mg-40 mg tablet RxNorm: 3894414 1/2 Tablet(s) PO QD No S tart Date 04/20/2018 Inactive oxymetazoline-menthol 0.05 % nasal spray RxNorm: 3263093 [place] COTY No Start Date 10/11/2019 Inactive Patient states he ta kes every 10 hours Toujeo SoloStar 300 unit/mL (1.5 mL) subcutaneous insulin pe n RxNorm: 1097652 35 Unit(s) SQ QAM No Start Date 07/22/2016 Inactive Lantus Solostar 100 unit/mL (3 mL) subcutaneous insulin pen RxNorm: 075691 20 Unit(s) SQ QD No Start Date 08/03/2014 Inactive aspirin 81 mg tablet RxNorm: 795108 1 Tablet(s) PO QD No Start Date 0 08/03/2014 Inactive metformin 500 mg tablet RxNorm: 579885 1 Tablet(s) PO BID No Start Date 07/28/2013 Inactive glimepiride 4 mg tablet RxNorm: 914959 1 Tablet(s) PO BID No Start Date 01/16/2015 Inactive glimepiride 4 mg tablet RxNorm: 746033 1 Tablet(s) PO QD No Start D ate 08/03/2014 Inactive levothyroxine 25 mcg tablet RxNorm: 860840 1 Tablet(s) PO QD No Sta rt Date 08/10/2014 Inactive doxycycline oral RxNorm: 71360 oral No Start Date 05/12/2019 Inac tive aspirin 81 mg tablet RxNorm: 845103 1 Tablet(s) PO QD No Start Date 0 07/21/2018 Inactive isosorbide mononitrate ER 60 mg tablet,extended release 24 h r RxNorm: 903443 1 Tablet(s) PO BID No Start Date 01/16/2015 Inactive metformin 500 mg tablet RxNorm: 091899 1 Tablet(s) PO BID No Start Date 04/27/2013 Inactive Plavix 75 mg tablet RxNorm: 766176 1 Tablet(s) PO QD No Start Date Inactive glimepiride 4 mg tablet RxNorm: 151879 1 Tablet(s) PO QPM No Start Date 02/21/2019 Inactive Vytorin 10-40 10 mg-40 mg tablet RxNorm: 8707773 1 Tablet(s) PO QHS No Start Date 08/03/2014 Inactive indomethacin 50 mg capsule RxNorm: 768810 1 Capsule(s) PO QHS No St art Date 01/16/2015 Inactive glimepiride 4 mg tablet RxNorm: 225008 1 Tablet(s) PO BID No Start Date 07/28/2013 Inactive Levemir FlexTouch 100 unit/mL (3 mL) subcutaneous insulin pe n RxNorm: 067713 20 Unit(s) SQ QD No Start Date 04/30/2015 Inactive lisinopril 20 mg tablet RxNorm: 403922 1 Tablet(s) PO BID No Start Date 04/27/2013 Inactive Lantus Solostar SubQ RxNorm: Subcutaneous No Start Date 03/15/2013 I nactive Zantac 150 mg tablet RxNorm: 712999 1 Tablet(s) PO QHS No Start Date 10/11/2019 Inactive allopurinol 300 mg tablet RxNorm: 344331 1 Tablet(s) PO QD No Start Date 08/03/2014 Inactive Fish Oil 1,000 mg capsule RxNorm: 1 Capsule(s) PO QD No Start Date 02/21/2019 Inactive indomethacin 50 mg capsule RxNorm: 370165 1 Capsule(s) PO BID No St art Date 04/20/2018 Inactive levothyroxine 50 mcg tablet RxNorm: 649043 1 Tablet(s) PO QD No Sta rt Date 08/10/2014 Inactive glimepiride 4 mg tablet RxNorm: 606736 1 Tablet(s) PO BID No Start Date 03/15/2013 Inactive indomethacin 50 mg capsule RxNorm: 19770714 1 Capsule(s) PO QHS No St art Date 04/27/2013 Inactive Medication Administered No Medication Administered data Immunizations Vaccine Codes Date Status Influenza CVX: 135 04/21/2018 Complete Influenza CVX: 135 04/22/2017 Complete Results Observation Observation Code Item Item Code Result Date S ervice Location [facility] 08145 Cholesterol 209 mg/dL 09/17/2016 Unkno wn [facility] 75133 Triglyceride 111 mg/dL 09/17/2016 Unkn own [facility] 18075 HDL CHOLESTEROL 50 mg/dL 09/17/2016 U nknown [facility] 93302 Chol/HDL Ratio 4.18 ratio 09/17/2016 U nknown [facility] 46306 NON-HDL Chol 159 mg/dL 09/17/2016 Unkn own [facility] 09072 LDL Cholesterol 137 mg/dL 09/17/2016 U nknown MEAN GLUC 4648858 Calc Mean Gluc 151 mg/dL 09/17/2016 Unkn own COMPREHENSIVE METABOLIC 26905 AST 23 U/L 2016 Unknown COMPREHENSIVE METABOLIC 70124 ALT 19 U/L 2016 Unknown [facility] MET[facility]OL[facility] 64745 BUN 15 mg/dL 2016 Unknown [facility]PREHENS[facility] MET[facility]OL[facility] 31251 ALBUMIN 4.3 g/dL 2016 Unknown COMPREHENSIVE METABOLIC 78166 CHLORIDE 103 mmol/L 09/17 Unknown COMPREHENSIVE MET[facility]OLIC 75067 Bili Total 0.6 mg/dL 09/17 Unknown COMPREHENSIVE METABOLIC 27480 ALK PHOS 60 U/L 2016 Unknown COMPREHENSIVE METABOLIC 62746 SODIUM 140 mmol/L 09/17 Unknown COMPREHENSIVE METABOLIC 27374 CREATININE 1.03 mg/dL 09/04 Unknown COMPREHENSIVE METABOLIC 83275 CALCIUM 9.5 mg/dL 2016 Unknown COMPREHENSIVE METABOLIC 36677 POTASSIUM 3.9 mmol/L 09/17 Unknown COMPREHENSIVE METABOLIC 93112 Total Protein 6.9 g/dL Unknown COMPREHENSIVE METABOLIC 43022 Glucose 94 mg/dL 2016 Unknown COMPREHENSIVE METABOLIC 14780 Bicarbonate 28 mmol/L 09/04 Unknown COMPREHENSIVE METABOLIC 08379 AGAP 9 mmol/L 2016 Unknown GFR CALC 4847800 GFR Non Afr Amr >60 mL/min 09/17/2016 Un known GFR CALC 9256977 GFR Afr Amr >60 mL/min 09/17/2016 Unknow n THYROID STIMULATING HORMONE 78030 TSH 4.260 uIU/mL 09/17/2016 Unknown GLYCOSYLATED HEMOGLOBIN TEST 10419 Hgb A1c 23694-2 6.9 % 0 09/17/2016 Unknown FREE T4 45101 T4 Free 1.02 ng/dL 09/17/2016 Unknown COMPLETE BLOOD COUNT [id number] WBC 8.6 10e9/L 07/26/19 16 Unknown COMPLETE BLOOD COUNT [id number] RBC 4.86 10e12/L 2015 Unknown COMPLETE BLOOD COUNT 7151343 HGB 14.6 g/dL 6 Unknown COMPLETE BLOOD COUNT 1106591 HCT DET 43.1 % 6 Unknown COMPLETE BLOOD COUNT 8760858 MCV 88.7 fL 6 Unknown COMPLETE BLOOD COUNT 5291123 MCH 30.0 pg 6 Unknown COMPLETE BLOOD COUNT 5551698 MCHC 33.9 g/dL 6 Unknown COMPLETE BLOOD COUNT 8718101 PLT 267 10e9/L 07/26/19 16 Unknown COMPLETE BLOOD COUNT 6407547 MPV 11.5 fL 6 Unknown COMPLETE BLOOD COUNT 8283853 SAM % 64.8 % 6 Unknown COMPLETE BLOOD COUNT 6306003 LY % 16.8 % 6 Unknown COMPLETE BLOOD COUNT 1289298 MON % 12.5 % 6 Unknown COMPLETE BLOOD COUNT 1271582 EOS % 5.6 % 6 Unknown COMPLETE BLOOD COUNT [id number] BASO % 0.3 % 6 Unknown COMPLETE BLOOD COUNT 1718558 RDW 13.4 % 6 Unknown COMPLETE BLOOD COUNT [id number] ABS SAM 5.57 10e9/L 016 Unknown COMPLETE BLOOD COUNT 4205350 ABS LYMPH 1.44 10e9/L 016 Unknown COMPLETE BLOOD COUNT [id number] ABS MONO 1.08 10e9/L 016 Unknown COMPLETE BLOOD COUNT [id number] ABS EOS 0.48 10e9/L 016 Unknown COMPLETE BLOOD COUNT 3139009 ABS BASO 0.03 10e9/L 016 Unknown COMPLETE BLOOD COUNT 8881000 RDW-SD 42.9 fL 6 Unknown PSA EQUIMOLAR MATT 24507 PSA EQ 0.78 NG/ML 6 Unknown THYROID STIMULATING HORMONE 98731 TSH 5.292 uIU/ML 07/26/2015 Unknown GLYCOSYLATED HEMOGLOBIN TEST 21728 A1C HPLC 71415-4 7.0 % 0 07/26/2015 Unknown GFR CALC 2396051 GFR AA >60 ML/MIN 07/26/2015 Unknown GFR CALC 2045944 GFR NON-AA >60 ML/MIN 07/26/2015 Unknown [facility] 43500 HDL TEST 64 MG/DL 07/26/2015 Unknown [facility] 99287 TRIG 58 MG/DL 07/26/2015 Unknown [facility] 20012 TEST LDL 49 MG/DL 07/26/2015 Unknown [facility] 46262 CHOL 125 MG/DL 07/26/2015 Unknown [facility] 30588 RCHOL/HDL 1.95 RATIO 07/26/2015 Unknow n [facility] 90978 NON-HDL CH 61 MG/DL 07/26/2015 Unknow n COMPREHENSIVE METABOLIC 38054 AST 25 U/L 2015 Unknown COMPREHENSIVE METABOLIC 09233 ALT 23 IU/L 2015 Unknown COMPREHENSIVE METABOLIC 93301 BUN 18 MG/DL 2015 Unknown COMPREHENSIVE METABOLIC 40188 ALBUMIN 4.6 GM/DL 2015 Unknown COMPREHENSIVE METABOLIC 05152 CHLORIDE 100 MMOL/L 07/26 Unknown COMPREHENSIVE METABOLIC 21053 BILI TOT 0.5 MG/DL 2015 Unknown COMPREHENSIVE METABOLIC 28039 ALK PHOS 49 U/L 2015 Unknown COMPREHENSIVE METABOLIC 99377 SODIUM 137 MMOL/L 07/26 Unknown COMPREHENSIVE METABOLIC 52346 CREATININE 1.06 MG/DL 07/08 Unknown COMPREHENSIVE METABOLIC 72228 CALCIUM 9.5 MG/DL 2015 Unknown COMPREHENSIVE METABOLIC 33020 POTASSIUM 4.5 MMOL/L 07/26 Unknown COMPREHENSIVE METABOLIC 01184 PROT TOT 6.5 GM/DL 2015 Unknown COMPREHENSIVE METABOLIC 16459 Glucose 109 MG/DL 2015 Unknown COMPREHENSIVE METABOLIC 93771 BICARB 29 MMOL/L 2015 Unknown COMPREHENSIVE METABOLIC 92463 ANION GAP 8 MEQ/L 2015 Unknown FREE T4 15466 FREE T4 1.11 NG/DL 07/26/2015 Unknown CULTURE & SENSITIVITY 13025 PROTEIN UR NEG 015 Unknown [facility] SENSITIVITY 66417 HEMGLBN UR TR 015 Unknown CULTURE & SENSITIVITY 54052 GLUCOSE UR NEG 015 Unknown [facility] & SENSITIVITY 53421 KETONES UR NEG 015 Unknown CULTURE & SENSITIVITY 89236 PH U 6.5 01/25/20 15 Unknown CULTURE & SENSITIVITY 24755 SP GR U 1.013 01/25/20 15 Unknown CULTURE & SENSITIVITY 27974 BILRUBN UR NEG 015 Unknown CULTURE & SENSITIVITY 49739 LEUKO UR NEG 01/25/20 15 Unknown CULTURE & SENSITIVITY 07376 NITRITE UR NEG 07/21/2 015 Unknown MICR CUL? [id number] SP TO JOHANA? NO 01/24/2015 Unknown MICR CUL? 6067909 APPEAR UR NORMAL 01/24/2015 Unknown MICR CUL? 7359962 RBC/uL 2.2 01/24/2015 Unknown MICR CUL? 0235037 WBC/uL 2.8 01/24/2015 Unknown MICR CUL? 4416684 SQ EPI/uL 1.0 01/24/2015 Unknown MICR CUL? [id number] HYALCST/uL 0.25 01/24/2015 Unknown MICR CUL? 7573244 WBC /HPF 1 01/24/2015 Unknown MICR CUL? 0713519 RBC /HPF 0 01/24/2015 Unknown GLYCOSYLATED HEMOGLOBIN TEST 60297 A1C HPLC 19529-2 6.6 % 0 01/17/2015 Unknown COMPLETE BLOOD COUNT 5823452 WBC 10.1 10e9/L 015 Unknown COMPLETE BLOOD COUNT 7685885 RBC 4.60 10e12/L 2014 Unknown COMPLETE BLOOD COUNT 4266009 HGB 14.0 g/dL 5 Unknown COMPLETE BLOOD COUNT 0717646 HCT DET 39.9 % 5 Unknown COMPLETE BLOOD COUNT 0440859 MCV 86.7 fL 5 Unknown COMPLETE BLOOD COUNT 1975247 MCH 30.4 pg 5 Unknown COMPLETE BLOOD COUNT 0950163 MCHC 35.1 g/dL 5 Unknown COMPLETE BLOOD COUNT 6837369 PLT 252 10e9/L 01/18/20 15 Unknown COMPLETE BLOOD COUNT 4169683 MPV 11.4 fL 5 Unknown COMPLETE BLOOD COUNT 2093105 SAM % 72.9 % 5 Unknown COMPLETE BLOOD COUNT 7656701 LY % 13.6 % 5 Unknown COMPLETE BLOOD COUNT 5097989 MON % 10.2 % 5 Unknown COMPLETE BLOOD COUNT 4132352 EOS % 3.1 % 5 Unknown COMPLETE BLOOD COUNT 1290905 BASO % 0.2 % 5 Unknown COMPLETE BLOOD COUNT 6582905 RDW 13.6 % 5 Unknown COMPLETE BLOOD COUNT 9615884 ABS SAM 7.36 10e9/L 015 Unknown COMPLETE BLOOD COUNT 0421351 ABS LYMPH 1.37 10e9/L 015 Unknown COMPLETE BLOOD COUNT 3980973 ABS MONO 1.03 10e9/L 015 Unknown COMPLETE BLOOD COUNT 0519180 ABS EOS 0.31 10e9/L 015 Unknown COMPLETE BLOOD COUNT 7109193 ABS BASO 0.02 10e9/L 015 Unknown COMPLETE BLOOD COUNT 3080757 RDW-SD 42.4 fL 5 Unknown GFR CALC 3809631 GFR AA 51.0L ML/MIN 01/17/2015 Unknow n GFR CALC 2892406 GFR NON-AA 42.0L ML/MIN 01/17/2015 Unkno wn FREE T4 09775 FREE T4 1.30 NG/DL 01/17/2015 Unknown THYROID STIMULATING HORMONE 25083 TSH 4.029 uIU/ML 01/17/2015 Unknown COMPREHENSIVE METABOLIC 78553 AST 28 U/L 2014 Unknown COMPREHENSIVE METABOLIC 23797 ALT 25 IU/L 2014 Unknown COMPREHENSIVE METABOLIC 93388 BUN 21 MG/DL 2014 Unknown COMPREHENSIVE METABOLIC 30503 ALBUMIN 4.7 GM/DL 2014 Unknown COMPREHENSIVE METABOLIC 69946 CHLORIDE 102 MMOL/L 01/17 Unknown COMPREHENSIVE METABOLIC 45068 BILI TOT 0.6 MG/DL 2014 Unknown COMPREHENSIVE METABOLIC 94697 ALK PHOS 44 U/L 2014 Unknown COMPREHENSIVE METABOLIC 50372 SODIUM 137 MMOL/L 01/17 Unknown COMPREHENSIVE METABOLIC 81229 CREATININE 1.62 MG/DL 01/04 Unknown COMPREHENSIVE METABOLIC 51915 CALCIUM 9.7 MG/DL 2014 Unknown COMPREHENSIVE METABOLIC 47309 POTASSIUM 4.5 MMOL/L 01/17 Unknown COMPREHENSIVE METABOLIC 75674 PROT TOT 6.5 GM/DL 2014 Unknown COMPREHENSIVE METABOLIC 37251 Glucose 136 MG/DL 2014 Unknown COMPREHENSIVE METABOLIC 80812 BICARB 24 MMOL/L 2014 Unknown COMPREHENSIVE METABOLIC 30564 ANION GAP 11 MEQ/L 2014 Unknown VITAMIN B 12 51025 VIT B 12 482 PG/ML 01/17/2015 Unknow n URIC ACID 76846 URIC ACID 8.5 MG/DL 08/09/2014 Unknown COMPREHENSIVE METABOLIC 73205 AST 27 U/L 2014 Unknown COMPREHENSIVE METABOLIC 26543 ALT 26 IU/L 2014 Unknown COMPREHENSIVE METABOLIC 40710 BUN 17 MG/DL 2014 Unknown COMPREHENSIVE METABOLIC 24797 ALBUMIN 5.0 GM/DL 2014 Unknown COMPREHENSIVE METABOLIC 77386 CHLORIDE 101 MMOL/L 08/09 Unknown COMPREHENSIVE METABOLIC 23137 BILI TOT 0.7 MG/DL 2014 Unknown COMPREHENSIVE METABOLIC 95628 ALK PHOS 53 U/L 2014 Unknown COMPREHENSIVE METABOLIC 84399 SODIUM 136 MMOL/L 08/09 Unknown COMPREHENSIVE METABOLIC 36690 CREATININE 1.14 MG/DL 09/2014 Unknown COMPREHENSIVE METABOLIC 75510 CALCIUM 9.8 MG/DL 2014 Unknown COMPREHENSIVE METABOLIC 06043 POTASSIUM 4.1 MMOL/L 08/09 Unknown COMPREHENSIVE METABOLIC 20762 PROT TOT 7.5 GM/DL 2014 Unknown COMPREHENSIVE METABOLIC 03940 Glucose 110 MG/DL 2014 Unknown COMPREHENSIVE METABOLIC 93934 BICARB 30 MMOL/L 2014 Unknown COMPREHENSIVE METABOLIC 23547 ANION GAP 5 MEQ/L 2014 Unknown GFR CALC 7553535 GFR AA >60 ML/MIN 08/09/2014 Unknown GFR CALC 6688453 GFR NON-AA >60 ML/MIN 08/09/2014 Unknown FREE T4 83332 FREE T4 1.14 NG/DL 08/09/2014 Unknown GLYCOSYLATED HEMOGLOBIN TEST 80117 A1C HPLC 51464-0 6.8 % 0 08/09/2014 Unknown COMPLETE BLOOD COUNT [id number] WBC 5.9 10e9/L 08/09/19 15 Unknown COMPLETE BLOOD COUNT [id number] RBC 5.04 10e12/L 2014 Unknown COMPLETE BLOOD COUNT [id number] HGB 15.2 g/dL 5 Unknown COMPLETE BLOOD COUNT [id number] HCT DET 44.3 % 5 Unknown COMPLETE BLOOD COUNT [id number] MCV 87.9 fL 5 Unknown COMPLETE BLOOD COUNT [id number] MCH 30.2 pg 5 Unknown COMPLETE BLOOD COUNT 5283721 MCHC 34.3 g/dL 5 Unknown COMPLETE BLOOD COUNT [id number] PLT 262 10e9/L 08/09/19 15 Unknown COMPLETE BLOOD COUNT [id number] MPV 10.9 fL 5 Unknown COMPLETE BLOOD COUNT [id number] SAM % 58.7 % 5 Unknown COMPLETE BLOOD COUNT [id number] LY % 21.5 % 5 Unknown COMPLETE BLOOD COUNT [id number] MON % 14.0 % 5 Unknown COMPLETE BLOOD COUNT [id number] EOS % 5.3 % 5 Unknown COMPLETE BLOOD COUNT [id number] BASO % 0.5 % 5 Unknown COMPLETE BLOOD COUNT [id number] RDW 13.1 % 5 Unknown COMPLETE BLOOD COUNT [id number] ABS SAM 3.46 10e9/L 015 Unknown COMPLETE BLOOD COUNT [id number] ABS LYMPH 1.27 10e9/L 015 Unknown COMPLETE BLOOD COUNT [id number] ABS MONO 0.83 10e9/L 015 Unknown COMPLETE BLOOD COUNT [id number] ABS EOS 0.31 10e9/L 015 Unknown COMPLETE BLOOD COUNT [id number] ABS BASO 0.03 10e9/L 015 Unknown COMPLETE BLOOD COUNT [id number] RDW-SD 41.2 fL 5 Unknown THYROID STIMULATING HORMONE 56108 TSH 5.395 uIU/ML 08/09/2014 Unknown LIPID GROUP 83547 HDL TEST 52 MG/DL 08/09/2014 Unknown LIPID GROUP 51403 TRIG 113 MG/DL 08/09/2014 Unknown LIPID GROUP 88537 TEST LDL 158 MG/DL 08/09/2014 Unknown LIPID GROUP 52612 CHOL 233 MG/DL 08/09/2014 Unknown LIPID GROUP 05672 RCHOL/HDL 4.48 RATIO 08/09/2014 Unknow n LIPID GROUP 15808 NON-HDL CH 181 MG/DL 08/09/2014 Unknow n COMPLETE BLOOD COUNT 7407459 WBC 6.8 10e9/L 09/09/19 14 Unknown COMPLETE BLOOD COUNT 9277398 RBC 5.18 10e12/L 2013 Unknown COMPLETE BLOOD COUNT 7583400 HGB 15.2 g/dL 4 Unknown COMPLETE BLOOD COUNT 0906003 HCT DET 44.7 % 4 Unknown COMPLETE BLOOD COUNT [id number] MCV 86.3 fL 4 Unknown COMPLETE BLOOD COUNT 0463004 MCH 29.3 pg 4 Unknown COMPLETE BLOOD COUNT 6267086 MCHC 34.0 g/dL 4 Unknown COMPLETE BLOOD COUNT 7153194 PLT 236 10e9/L 09/09/19 14 Unknown COMPLETE BLOOD COUNT 6724016 MPV 11.0 fL 4 Unknown COMPLETE BLOOD COUNT [id number] SAM % 58.2 % 4 Unknown COMPLETE BLOOD COUNT 0877343 LY % 21.9 % 4 Unknown COMPLETE BLOOD COUNT [id number] MON % 12.5 % 4 Unknown COMPLETE BLOOD COUNT [id number] EOS % 7.3 % 4 Unknown COMPLETE BLOOD COUNT [id number] BASO % 0.1 % 4 Unknown COMPLETE BLOOD COUNT [id number] RDW 13.6 % 4 Unknown COMPLETE BLOOD COUNT [id number] ABS SAM 3.96 10e9/L 014 Unknown COMPLETE BLOOD COUNT [id number] ABS LYMPH 1.49 10e9/L 014 Unknown COMPLETE BLOOD COUNT [id number] ABS MONO 0.85 10e9/L 014 Unknown COMPLETE BLOOD COUNT [id number] ABS EOS 0.50 10e9/L 014 Unknown COMPLETE BLOOD COUNT [id number] ABS BASO 0.01 10e9/L 014 Unknown COMPLETE BLOOD COUNT [id number] RDW-SD 42.3 fL 4 Unknown COMPREHENSIVE METABOLIC 44080 AST 27 U/L 2013 Unknown COMPREHENSIVE METABOLIC 81299 ALT 30 IU/L 2013 Unknown COMPREHENSIVE METABOLIC 41778 BUN 16 MG/DL 2013 Unknown COMPREHENSIVE METABOLIC 29467 ALBUMIN 4.9 GM/DL 2013 Unknown COMPREHENSIVE METABOLIC 40407 CHLORIDE 99 MMOL/L 2013 Unknown COMPREHENSIVE METABOLIC 28828 BILI TOT 0.7 MG/DL 2013 Unknown COMPREHENSIVE METABOLIC 50011 ALK PHOS 53 U/L 2013 Unknown COMPREHENSIVE METABOLIC 12883 SODIUM 137 MMOL/L 09/08 Unknown COMPREHENSIVE METABOLIC 81665 CREATININE 1.01 MG/DL 11/2013 Unknown COMPREHENSIVE METABOLIC 76869 CALCIUM 10.0 MG/DL 09/08 Unknown COMPREHENSIVE METABOLIC 60250 POTASSIUM 4.4 MMOL/L 09/08 Unknown COMPREHENSIVE METABOLIC 13518 PROT TOT 7.1 GM/DL 2013 Unknown COMPREHENSIVE METABOLIC 26242 Glucose 148 MG/DL 2013 Unknown COMPREHENSIVE METABOLIC 51582 BICARB 30 MMOL/L 2013 Unknown COMPREHENSIVE METABOLIC 69283 ANION GAP 8 MEQ/L 2013 Unknown GFR CALC 9214949 GFR AA >60 ML/MIN 09/08/2013 Unknown GFR CALC 8695130 GFR NON-AA >60 ML/MIN 09/08/2013 Unknown FREE T4 49191 FREE T4 1.08 NG/DL 09/08/2013 Unknown GLYCOSYLATED HEMOGLOBIN TEST 83794 A1C HPLC 63922-8 7.3 % 0 09/08/2013 Unknown THYROID STIMULATING HORMONE 96142 TSH 5.454 uIU/ML 09/08/2013 Unknown LIPID GROUP 44542 HDL TEST 59 MG/DL 09/08/2013 Unknown LIPID GROUP 77331 TRIG 92 MG/DL 09/08/2013 Unknown LIPID GROUP 92242 TEST LDL 83 MG/DL 09/08/2013 Unknown LIPID GROUP 28496 CHOL 160 MG/DL 09/08/2013 Unknown LIPID GROUP 60082 RCHOL/HDL 2.71 RATIO 09/08/2013 Unknow n VITAMIN B 12 FOLIC ACID 65398|01200 VIT B 12 467 PG/ML 12/2012 Unknown VITAMIN B 12 FOLIC ACID 50132|41851 FOLIC ACID 12.2 NG/ML Unknown VITAMIN B 12 FOLIC ACID 70603|48640 VIT B 12 467 PG/ML 12/2012 Unknown THYROID STIMULATING HORMONE 65795 TSH 4.557 uIU/ML 03/12/2013 Unknown HEMOGLOBIN A1C (GLYCOSYLATED) 5898414 A1C HPLC 69089-9 7.6 % 03/12/2013 Unknown VITAMIN D TOTAL (25 HYDROXY) 63896 VIT D TOTL 17 NG/ML 03/12/2013 Unknown FREE T4 02902 FREE T4 1.07 NG/DL 03/12/2013 Unknown URIC ACID 60967 URIC ACID 5.2 MG/DL 03/12/2013 Unknown Procedures Procedure Codes Date THER/PROPH/DIAG INJ SC/IM CPT-4: 64149 05/13/2019 TRIAMCINOLONE ACET INJ NOS CPT-4: J3301 05/13/2019 DEXAMETHASONE SODIUM PHOS CPT-4: J1100 05/13/2019 THER/PROPH/DIAG INJ SC/IM CPT-4: 79446 02/22/2019 TRIAMCINOLONE ACET INJ NOS CPT-4: J3301 02/22/2019 FLU VACC PRSV FREE INC ANTIG 65 AND OLDER CPT-4: 94016 04/21/2018 ADMIN INFLUENZA VIRUS VAC CPT-4: G0008 04/21/2018 PRESCRIP TRANSMIT VIA ERX SY CPT-4: G8553 04/21/2018 DESTRUCT PREMALG LESION (Cryosurgery) CPT-4: 83925 FLU VACC PRSV FREE INC ANTIG 65 AND OLDER CPT-4: 42877 04/22/2017 ADMIN INFLUENZA VIRUS VAC CPT-4: G0008 04/22/2017 PRESCRIP TRANSMIT VIA ERX SY CPT-4: G8553 10/10/2016 PRESCRIP TRANSMIT VIA ERX SY CPT-4: G8553 08/29/2015 ROUTINE VENIPUNCTURE CPT-4: 56483 07/26/2015 ASSAY OF FREE THYROXINE CPT-4: 69236 07/26/2015 ASSAY THYROID STIM HORMONE CPT-4: 92101 07/26/2015 COMPREHEN METABOLIC PANEL CPT-4: 74514 07/26/2015 COMPLETE CBC W/AUTO DIFF WBC CPT-4: 68039 07/26/2015 LIPID PANEL CPT-4: 02291 07/26/2015 ASSAY OF PSA TOTAL CPT-4: 99972 07/26/2015 A1C HPLC CPT-4: 26402 07/26/2015 ROUTINE VENIPUNCTURE CPT-4: 15523 01/17/2015 ASSAY OF FREE THYROXINE CPT-4: 15128 01/17/2015 ASSAY THYROID STIM HORMONE CPT-4: 56645 01/17/2015 COMPREHEN METABOLIC PANEL CPT-4: 33117 01/17/2015 COMPLETE CBC W/AUTO DIFF WBC CPT-4: 83261 01/17/2015 A1C HPLC CPT-4: 41952 01/17/2015 VITAMIN B-12 CPT-4: 91948 01/17/2015 PPPS, subseq visit CPT-4: G0439 08/04/2014 PRESCRIP TRANSMIT VIA ERX SY CPT-4: G8553 02/18/2014 FLUZONE, 5ML (Medicare) CPT-4: Q2038 07/22/2013 ADMIN INFLUENZA VIRUS VAC CPT-4: G0008 07/22/2013 PRESCRIP TRANSMIT VIA ERX SY CPT-4: G8553 04/28/2013 ROUTINE VENIPUNCTURE CPT-4: 01237 03/12/2013 VITAMIN D TOTAL (25 HYDROXY) CPT-4: 66512 03/12/2013 VITAMIN B 12 FOLIC ACID CPT-4: 95952|47236 03/12/2013 A1C GLYCOSYLATED HEMOGLOBIN TEST CPT-4: 90232 013 ASSAY OF BLOOD/URIC ACID CPT-4: 29109 03/12/2013 ASSAY OF FREE THYROXINE CPT-4: 05655 03/12/2013 ASSAY THYROID STIM HORMONE CPT-4: 05001 03/12/2013 CUR TOBACCO NON-USER CPT-4: G8457 03/11/2013 PRESCRIP TRANSMIT VIA ERX SY CPT-4: G8553 03/11/2013 Vital Signs Date Vital 12/07/2019 Blood Pressure 1: 142/78 Code: 8480-6 [...] 1: 156/70 Code: 8480-6 BMI: 35.0 Code: 30504-4 Heart Rate 1: 68 bpm Height: 5'10" Respiratory Rate: 20 bpm SpO2: 95% Tempera ture: 36.5 (C) / 97.7 (F) Weight: 244 lbs 04/21/2018 Blood Pressure 1: 124/80 Code: 8480-6 BMI: 34.4 Code: 23532-3 Heart Rate 1: 80 bpm Height: 5'10" Respiratory Rate: 20 bpm SpO2: 96% Tempera ture: 37.0 (C) / 98.6 (F) Weight: 240 lbs 01/06/2018 Blood Pressure 1: 138/82 Code: 8480-6 BMI: 33.9 Code: 74987-7 Heart Rate 1: 96 bpm Height: 5'10" Respiratory Rate: 24 bpm SpO2: 98% Tempera ture: 35.9 (C) / 96.6 (F) Weight: 236 lbs 10/22/2017 Blood Pressure 1: 144/70 Code: 8480-6 BMI: 34.7 Code: 56562-7 Heart Rate 1: 72 bpm Height: 5'10" Respiratory Rate: 20 bpm SpO2: 96% Tempera ture: 36.9 (C) / 98.4 (F) Weight: 242 lbs 04/22/2017 Blood Pressure 1: 146/82 Code: 8480-6 BMI: 32.9 Code: 98056-9 Heart Rate 1: 104 bpm Height: 5'10" Respiratory Rate: 20 bpm SpO2: 95% Tempera ture: 36.9 (C) / 98.5 (F) Weight: 229 lbs 10/10/2016 Blood Pressure 1: 124/64 Code: 8480-6 BMI: 32.9 Code: 78123-5 Heart Rate 1: 64 bpm Height: 5'10" [...] 1: 146/90 Code: 8480-6 BMI: 34.1 Code: 59554-3 Heart Rate 1: 80 bpm Height: 5'10" Respiratory Rate: 20 bpm Temperature: 36 .8 (C) / 98.2 (F) Weight: 238 lbs 01/17/2015 Blood Pressure 1: 116/60 Code: 8480-6 BMI: 32.7 Code: 34927-9 Heart Rate 1: 84 bpm Height: 5'10" Respiratory Rate: 20 bpm Temperature: 36 .7 (C) / 98.0 (F) Weight: 228 lbs 09/29/2014 Blood Pressure 1: 136/78 Code: 8480-6 BMI: 33.9 Code: 39860-6 Heart Rate 1: 80 bpm Height: 5'10" Respiratory Rate: 20 bpm Temperature: 36 .6 (C) / 97.9 (F) Weight: 236 lbs 08/04/2014 Blood Pressure 1: 132/70 Code: 8480-6 BMI: 32.9 Code: 82110-1 Heart Rate 1: 72 bpm Height: 5'10" Respiratory Rate: 20 bpm Temperature: 36 .7 (C) / 98.0 (F) Weight: 229 lbs 02/18/2014 Blood Pressure 1: 124/82 Code: 8480-6 Heart Rate 1: 82 bpm Respiratory Rate: 18 bpm Temperature: 36.4 (C) / 97.5 (F) Weight: 232 lbs 07/29/2013 Blood Pressure 1: 146/80 Code: 8480-6 BMI: 34.1 Code: 72687-6 Heart Rate 1: 64 bpm Height: 5'10" Respiratory Rate: 20 bpm Temperature: 36 .9 (C) / 98.5 (F) Weight: 238 lbs 05/26/2013 Blood Pressure 1: 142/90 Code: 8480-6 BMI: 34.0 Code: 89946-9 Heart Rate 1: 84 bpm Height: 5'10" Respiratory Rate: 20 bpm Temperature: 36 .7 (C) / 98.0 (F) Weight: 237 lbs 04/28/2013 Blood Pressure 1: 118/78 Code: 8480-6 BMI: 32.9 Code: 63565-6 Heart Rate 1: 74 bpm Height: 5'10" Respiratory Rate: 20 bpm Temperature: 36 .1 (C) / 97.0 (F) Weight: 229 lbs 03/11/2013 Blood Pressure 1: 146/80 Code: 8480-6 BMI: 31.5 Code: 19084-5 Heart Rate 1: 80 bpm Height: 6' Respiratory Rate: 20 bpm Temperature: 36 .8 (C) / 98.2 (F) Weight: 232 lbs Functional Status No Functional Status data Reason For Visit Reason For Visit Effective Dates Notes skin lesion 12/07/2019 Patient would like t o review medications because he wonders if there is something that makes him intolerant to heat follow up 10/27/2019 diabetes mellitus 10/20/2019 follow up 10/12/2019 cough 06/02/2019 sinus congestion 05/13/2019 follow up 04/26/2019 from urgent care sinus congestion 02/22/2019 follow up 11/25/2018 neck pain 11/19/2018 Patient recently gerardo ated by urgent care with jarrod follow up 07/22/2018 follow up 04/21/2018 follow [...] care Encounters Encounter Performer Location Codes Date ([id number]) OFFICE/OUTPATIENT VISIT EST Diagnosis: Esophageal reflux[ICD10: K21.9] Diagnosis: History of bladder cancer[ICD10: Z85.51] Xiomara LARA Delph[employer]vin [employer] CPT-4: 01890 12/07/2019 ([id number]) OFFICE/OUTPATIENT VISIT EST Diagnosis: DM w/o complication type II, uncontrolled[ICD10: E11.65] Diagnosis: Other dyspnea and respiratory abnormality[ICD10: R06.09] Xiomara Renonelson RENAEXIOMARA [employer] CPT-4: 72916 10/27/2019 ([id number]) OFFICE/OUTPATIENT VISIT EST Diagnosis: Chronic obstructive pulmonary disease, unspecified[ICD10: J44.9] Diagnosis: DM w/o complication type II, uncontrolled[ICD10: E11.65] Diagnosis: Edema[ICD10: R60.9] Xiomara RENAEQUELINE [employer] CPT-4: 76235 10/20/2019 ([id number]) OFFICE/OUTPATIENT VISIT EST Diagnosis: Other dyspnea and respiratory abnormality[ICD10: R06.09] Diagnosis: Obstructive sleep apnea[ICD10: G47.33] Diagnosis: Hypotension[ICD10: I95.9] Xiomara Bettencourt [facility] CPT -4: 15824 10/12/2019 ([id number]) OFFICE/OUTPATIENT VISIT EST Diagnosis: Upper respiratory infection[ICD10: J06.9] Pennie BRADLEY [employer] CPT-4: 47681 06/02/2019 ([id number]) OFFICE/OUTPATIENT VISIT EST Diagnosis: Sinusitis[ICD10: J32.9] Diagnosis: Allergic rhinitis[ICD10: J30.9] Pennie BETTENCOURT DO [facility] CPT-4: 62578 05/13/2019 ([id number]) OFFICE/OUTPATIENT VISIT EST Diagnosis: Pneumonia[ICD10: J18.9] Pennie ROSENBAUM DO [facility] CPT-4: 00124 04/26/2019 ([id number]) OFFICE/OUTPATIENT VISIT EST Diagnosis: Acute sinusitis, unspecified[ICD10: J01.90] Pennie BETTENCOURT DO [facility] CPT-4: 70364 02/22/2019 ([id number]) OFFICE/OUTPATIENT VISIT EST Diagnosis: Cervicalgia[ICD10: M54.2] Xiomara [facility]ON [facility] CPT-4: 15705 11/25/2018 ([id number]) OFFICE/OUTPATIENT VISIT EST Diagnosis: Acute sinusitis, unspecified[ICD10: J01.90] Diagnosis: Myalgia, unspecified site[ICD10: M79.10] Diagnosis: Cervicalgia[ICD10: M54.2] Xiomara [facility] CPT-4: 57205 11/19/2018 ([id number]) OFFICE/OUTPATIENT VISIT EST Diagnosis: Low back pain[ICD10: M54.5] Diagnosis: Essential (primary) hypertension[ICD10: I10] Diagnosis: 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, 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] Diagnosis: Paroxysmal atrial fibrillation[ICD10: I48.0] Xiomara BETTENCOURT DO [facility] CPT-4: 91505 07/22/2018 ([id number]) OFFICE/OUTPATIENT VISIT EST Diagnosis: Type 2 diabetes mellitus with diabetic neuropathy, unspecified[ICD10: E11.40] Diagnosis: Hyperlipidemia, unspecified[ICD10: E78.5] Diagnosis: Essential (primary) hypertension[ICD10: I10] Diagnosis: Chronic kidney disease, stage 1[ICD10: N18.1] Diagnosis: Benign prostatic hyperplasia with lower urinary tract symptoms[ICD10: N40.1] Diagnosis: FLU VACCINE[ICD10: Z23] Xiomara Bettencourt XIOMARA Elvia [facility]BRIDE [facility] CPT-4: 84914 04/21/2018 OFFICE/OUTPATIENT VISIT EST Diagnosis: Type 2 diabetes mellitus with hyperglycemia[ICD10: E11.65] Diagnosis: Essential (primary) hypertension[ICD10: I10] Diagnosis: Mixed hyperlipidemia[ICD10: E78.2] Diagnosis: Other fatigue[ICD10: R53.83] Pennie HANLINE [facility]vin [facility] CPT-[facility]: 54548 01/06/2018 ([id number]) OFFICE/OUTPATIENT VISIT EST Diagnosis: Type 2 diabetes mellitus with diabetic neuropathy, unspecified[ICD10: E11.40] Diagnosis: Essential (primary) hypertension[ICD10: I10] Diagnosis: Pain in right thigh[ICD10: M79.651] Diagnosis: Pain in left leg[ICD10: M79.605] Diagnosis: Localized swelling, mass and lump, left lower limb[ICD10: R22.42] Diagnosis: OSTEOARTHRISIS MULTI SITES[ICD10: M19.90] Diagnosis: FLU VACCINE[ICD10: Z23] Xiomara Renoshaankendrick XIOMARA DelphineEdvin REED [facility] CPT-4: 50525 04/22/2017 ([id number]) OFFICE/OUTPATIENT VISIT EST Diagnosis: Essential (primary) hypertension[ICD10: I10] Diagnosis: Type 2 diabetes mellitus with hyperglycemia[ICD10: E11.65] Diagnosis: Angina pectoris, unspecified[ICD10: I20.9] Xiomara Renonelson LARA Delph[facility]Edvin [facility] CPT-4: 03056 10/10/2016 ([id number]) OFFICE/OUTPATIENT VISIT EST Diagnosis: Cough[ICD10: R05] Diagnosis: Wheezing[ICD10: R06.2] Diagnosis: Chronic obstructive pulmonary disease, unspecified[ICD10: J44.9] Shannan [facility] CPT-4: 76492 08/31/2015 OFFICE/OUTPATIENT VISIT EST Diagnosis: Acute bronchitis, unspecified[ICD10: J20.9] Diagnosis: Wheezing[ICD10: R06.2] Kelsie LARA [facility]Edvin [facility] Bancha [facility] CPT-4: 21858 08/29/2015 ([id number]) OFFICE/OUTPATIENT VISIT EST Diagnosis: Type 2 diabetes mellitus with diabetic neuropathy, unspecified[ICD10: E11.40] Diagnosis: Hyperlipidemia, unspecified[ICD10: E78.5] Diagnosis: Essential (primary) hypertension[ICD10: I10] Diagnosis: Encounter for general adult medical examination without abnormal findings[ICD10: Z00.00] Xiomara BETTENCOURT DO [facility] CPT-4: 01713 07/26/2015 OFFICE/OUTPATIENT VISIT EST Diagnosis: Type 2 diabetes mellitus with hyperglycemia[ICD10: E11.65] Diagnosis: Unspecified osteoarthritis, unspecified site[ICD10: M19.90] Diagnosis: Other instability, right knee[ICD10: M25.361] Kelsie BETTENCOURT DO [facility] CPT-4: 58711 07/24/2015 ([id number]) OFFICE/OUTPATIENT VISIT EST Diagnosis: Pain in leg, unspecified[ICD10: M79.606] Diagnosis: Type 2 diabetes mellitus with diabetic neuropathy, unspecified[ICD10: E11.40] Xiomara BETTENCOURT [facility] CPT-4: 21267 05/01/2015 ([id number]) OFFICE/OUTPATIENT VISIT EST Diagnosis: MALAISE AND FATIGUE[ICD9: 780.79] Diagnosis: 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, 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] Diagnosis: CAD[ICD9: 414.00] Diagnosis: ANEMIA NOS[ICD9: 285.9] Xiomara MCBRIDE [facility] CPT-4: 89496 01/17/2015 ([id number]) OFFICE/OUTPATIENT VISIT EST Diagnosis: Skin lesion[ICD9: 709.9] Xiomara [facility]NAO [facility] CPT-4: 77917 09/29/2014 OFFICE/OUTPATIENT VISIT EST Diagnosis: GASTROENTERITIS[ICD9: 558.9] Diagnosis: GERD[ICD9: 530.81] Kelsie BETTENCOURT DO [facility] CPT-4: 59828 02/18/2014 ([id number]) OFFICE/OUTPATIENT VISIT EST Diagnosis: 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I, UNCONTROLLED[ICD9: 250.02] Xiomara BETTENCOURT [facility] CPT-4: 07330 07/29/2013 ([id number]) OFFICE/OUTPATIENT VISIT EST Diagnosis: FLU VACCINE[ICD9: V04.81] Xiomara [facility]ALLON [facility] CPT-4: 18736 07/22/2013 ([id number]) OFFICE/OUTPATIENT VISIT EST Diagnosis: 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I, UNCONTROLLED[ICD9: 250.02] Diagnosis: HYPERTENSION[ICD9: 401.9] Xiomara [facility]ALLON [facility] CPT-4: 88672 05/26/2013 ([id number]) OFFICE/OUTPATIENT VISIT EST Diagnosis: MONONEURITIS[ICD9: 355.9] Diagnosis: RESTLESS LEGS SYNDROME[ICD9: 333.94] Diagnosis: HYPERTENSION[ICD9: 401.9] Diagnosis: CAD[ICD9: 414.00] Diagnosis: Weakness[ICD9: 780.79] Xiomara Dolan [facility] CPT-4: 27204 04/28/2013 ([id number]) OFFICE/OUTPATIENT VISIT EST Diagnosis: 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[ICD9: 250.01] Diagnosis: MONONEURITIS[ICD9: 355.9] Diagnosis: HYPERLIPIDEMIA NEC/NOS[ICD9: 272.4] Diagnosis: CAD[ICD9: 414.00] Xiomara BETTENCOURT [facility] CPT-4: 59796 03/12/2013 OFFICE/OUTPATIENT VISIT NEW Diagnosis: CAD[ICD9: 414.00] Diagnosis: HYPERLIPIDEMIA NEC/NOS[ICD9: 272.4] Diagnosis: HYPERTENSION[ICD9: 401.9] Diagnosis: Neuropathy[ICD9: 355.9] Diagnosis: RESTLESS LEGS SYNDROME[ICD9: 333.94] Xiomara BETTENCOURT [facility] CPT-4: 42866 03/11/2013 Plan of Care Planned Activity Notes Codes Status Date Care Plan: US EXAM ABDO BACK WALL COMP renal US L OINC : 81683-2 Pending 12/08/2019 Visit Diagnosis Plan: History of bladder cancer Discus jaswinder: Check CT abdomen/pelvis ICD-9 : V10.51 ICD-10 : Z85.51 12/07/2019 Visit Diagnosis Plan: Esophageal reflux Discussion: Ta kesha omeprazole daily Will try pancreatic enzymes ICD-9 : 530.81 ICD-10 : K21.9 12/07/2019 Appointment: Xiomara Bettencourt WPtel: [address] [place], [place] [id number] ACUTE ILLNESS 12/07/2019 Care Plan: CT PELVIS [...] : R06.09 10/27/2019 Appointment: Xiomara Bettencourt [facility]el[facility] [facility] 10/27/2019 Patient Education: gabapentin- [employer] Coupon [phone] [email or web address]/[email or web address] Completed 10/27/2019 Visit Diagnosis Plan: DM w/o [...] : J44.9 10/20/2019 Appointment: Xiomara Bettencourt WPtel: [address] [place], [place] [id number] FOLLOW UP 10/20/2019 Patient Education: furosemide- [employer] Coupon [phone] [email or web address]/resources/getResource/[email or web address] Completed 10/20/2019 Visit Diagnosis Plan: Obstructive sleep [...] : I95.9 10/12/2019 Appointment: Xiomara Bettencourt WPtel: [address] [place], [place] [id number] TELEMEDICINE 10/12/2019 Appointment: Xiomara Bettencourt WPtel: [address] [place], [place] [id number] US RESCHEDULED 09/23/2019 Care Plan: COMPREHEN METABOLIC PANEL SERGEI NC : 01882-9 Pending 09/20/2019 Care Plan: LIPID PANEL LOINC : 43647-8 Pending 09/20/2019 Care Plan: A1C HPLC LOINC : 86494-8 Pending 09/20/2019 Care Plan: COMPLETE CBC W/AUTO DIFF WBC LOINC : 56008-7 Pending 09/20/2019 Visit Diagnosis Plan: Upper respiratory infection Disc ussion: discussed that most likely viral. push fluids and rest through the week. patient has left over levaquin at home (5 days worth). instructed patient to start taking if he gets worse later this week and to call us next week if no improvement. ICD-9 : 465.9 ICD-10 : J06.9 06/02/2019 Appointment: Pennie Pizarro [address] [place] [address] ACUTE ILLNESS 06/02/2019 Visit Diagnosis Plan: Allergic [...] ICD-10 : J30.9 05/13/2019 Appointment: Pennie Pizarro [address] [place] [address] ACUTE ILLNESS 05/13/2019 Appointment: Xiomara Bettencourt WPtel: [phone] [phone] CANCELED 04/27/2019 Visit Diagnosis Plan: Pneumonia Discussion: will obtai n records from urgent care. instructed to finish out doxy. no rhonchi or crackles auscultated. symbicort sample given to patient with instructions to use bid. call office later this week with new or worsening symptoms. ICD-9 : 486 ICD-10 : J18.9 04/26/2019 Appointment: Pennie Pizarro [address] [place], [place] [id number] FOLLOW UP 04/26/2019 Visit Diagnosis Plan: Acute [...] ICD-10 : J01.90 02/22/2019 Appointment: Pennie Pizarro [address] [place] [address] ACUTE ILLNESS 02/22/2019 Patient Education: prednisone- [employer] Coupon [phone] [email or web address] Completed 02/22/2019 Visit Diagnosis Plan: Cervicalgia Discussion: Check Ce rvical Spine X-ray Will likely need PT ICD-9 : 723.1 ICD-10 : M54.2 11/25/2018 Appointment: Xiomara Bettencourt [facility] [phone] [facility] [facility] 11/25/2018 Visit Plan: Saline nasal flushes prn. Ty lenol/Motrin prn headache. Notify if persists/symptoms worsening. 11/19/2018 Visit Diagnosis Plan: Cervicalgia Discussion: May be d ue to levaquin or from strain of neck from coughing ICD-9 : 723.1 ICD-10 : M54.2 11/19/2018 Visit Diagnosis Plan: Myalgia, unspecified site Discus jaswinder: May be due to levaquin Hold simvastatin Add Vitamin D3 2000u daily Baclofen 10mg po q HS Follow Up: 1 weeks ICD-9 : 729.1 ICD-10 : M79.10 11/19/2018 Visit Diagnosis Plan: Acute sinusitis, unspecified Dis cussion: Improved ICD-9 : 461.9 ICD-10 : J01.90 11/19/2018 Visit NOS Plan: Plan Notes: Saline nasal flu shes prn. Tyle... 11/19/2018 App[facility]ment: [facility] Bet[facility] [phone] [id number] [facility] 11/19/2018 Patient Education: baclofen- [employer] Coupon [id number] [email or web address] Completed 11/19/2018 Visit Diagnosis Plan: Paroxysmal atrial [...] I10 07/22/2018 Appointment: [facility] Bet[facility]court [facility] [phone] [id number] [place] FOLLOW UP 07/22/2018 Visit Diagnosis Plan: [...] Trial of flomax Call in 1 mo [facility] on how doing Follow Up: 4 months ICD-9 : 600.21 ICD-10 : N40.1 04/21/2018 Appointment: [facility] Bettencourt [facility] [phone] [id number] [place] FOLLOW UP 04/21/2018 Patient Education: [...] ICD-10 : E78.2 01/06/2018 Appointment: Pennie Pizarro [address] [place] [address] MEDICATION REVIEW 01/06/2018 Patient Education: Patient Medication Summary Completed 01/06/2018 Appointment: Xiomara Bettencourt WPtel: [address] [place] [address] NO SHOW 01/05/2018 Appointment: Xiomara Bettencourt WPtel: [address] [place] [address] US CANCELED 12/31/2017 Visit Diagnosis Plan: Actinic keratosis Discussion: Cr yotherapy as above but will see derm if lesions do not resolve ICD-9 : 702.0 ICD-10 : L57.0 10/22/2017 Appointment: Xiomara Bettencourt WPtel: [address] [place] [address] ACUTE ILLNESS 10/22/2017 Patient Education: Patient Medication [...] M79.605 04/22/2017 Appointment: [facility] Bettencourt [facility] [phone] [facility] [place] FOLLOW UP 04/22/2017 Patient Education: Patient Medication Summary Completed 04/22/2017 Patient Education: Patient Medication Summary Completed 04/16/2017 Care Plan: COMPREHEN METABOLIC PANEL SERGEI NC : 86248-4 Pending 04/16/2017 Care Plan: LIPID PANEL LOINC : 04759-1 Pending 04/16/2017 Care Plan: CBC Pending 04/16/2017 Care Plan: A1C HPLC LOINC : 19581-8 Pending 04/16/2017 Referral: Inocencio Goodson WPtel: [phone] [facility] [id number] [place] Referral Appointment Confirmed 10/14/2016 Visit Diagnosis Plan: Type 2 diabetes mellitus with hy perglycemia Discussion: Continue toujeo Accuchecks BID Follow Up: 4 months ICD-9 : 250.02 ICD-10 : E11.65 10/10/2016 Visit Diagnosis Plan: Angina pectoris, unspecified Dis cussion: Continue imdur and see cardiology To ER if chest pain returns ICD-9 : 413.9 ICD-10 : I20.9 10/10/2016 Appointment: Xiomara Bettencourt WPtel: [address] [place], [place] [phone] FOLLOW UP 10/10/2016 Patient Education: Patient Medication Summary Completed 10/10/2016 Patient Education: Patient Medication Summary Completed 09/16/2016 Care Plan: COMPREHEN METABOLIC PANEL SERGEI NC : 81038-5 Pending 09/16/2016 Care Plan: ASSAY THYROID STIM HORMONE Pen ding 09/16/2016 Care Plan: ASSAY OF FREE THYROXINE Pendin g 09/16/2016 Care Plan: LIPID PANEL LOINC : 36785-7 Pending 09/16/2016 Care Plan: CBC Pending 09/16/2016 Care Plan: A1C HPLC LOINC : 81871-3 Pending 09/16/2016 Visit Plan: CXR now to further evaluate symptoms Suspect viral since he has been on 2 rounds of antibiotics If chronic lung disease evident, will consider keeping on symbicort [employer] Sample inhaler given today with instructions on use Continue oral prednisone, would like to avoid injection if possible considering his DM status and he is stable right now Continue albuterol PRN Will call with CXR results 08/31/2015 Appointment: Shannan Grimes [address] [place] [address] 08/31 confirmed- SP ACUTE ILLNESS 08/31/2015 Patient Education: Patient Medication Summary Completed 08/31/2015 Visit Plan: Albuterol INH via SVN every 4 hours Prednisone 20 mg PO BID Notify for worsening symptoms 08/29/2015 Appointment: Kelsie Grubbs WPtel: [address] [place], [place] [phone] ACUTE ILLNESS 08/29/2015 Patient Education: Patient Medication Summary Completed 08/29/2015 Appointment: Xiomara Bettencourt WPtel: [facility] LAB 07/26/2015 Patient Education: Patient Medication Summary Completed 07/26/2015 Visit Plan: Return in am for fasting lab s - CBC, CMP, TSH, Free T4, HgbA1C Change Levemir to Toujeo - Continue 35 Units q am - sample given Start physical Therapy for increased quadriceps strengthening and decreased pain in knees, bilaterally. 07/24/2015 Appointment: Anderson Grubbssa Barrow WPtel: [address] [place], [place] [id number] 07/21 appt confirmed cn FOLLOW UP 07/24/19 [facility]ment[phone] [facility] [facility] FO[facility] 07/24/2015 Patient Education: Patient [...] with insulin 05/01/2015 Appointment: Xiomara Bettencourt WPtel: [address] [place], [place] [phone] 04/28 confirmed~sl ACUTE ILLNESS 05/01/2015 Patient Education: Patient Medication Summary Completed 05/01/2015 Patient Education: Patient Medication Summary Completed 01/19/2015 Care Plan: URINALYSIS AUTO W/O SCOPE SERGEI NC : 84926-3 Pending 01/19/2015 Visit Plan: I have went through his medi cations in past and stopped meds but he adjusts his meds on his own and has restarted some Stop Amaryl Once again discussed not using indomethacin routinely due to taking plavix and aspirin daily and chcf use is dangerous Check CBC, CMP, TSH, free T4, B12 and HbA1C Patient has seen Cardiology recently but no cardiac cath done--had chemical stress test 01/17/2015 Appointment: Xiomara Bettencourt WPtel: [address] [place], [place] [id number] 01/16 vm cn ACUTE ILLNESS 01/17/2015 Patient Education: Patient Medication Summary Completed 01/17/2015 Visit Plan: See Dr. Garvin for removal 09/29/2014 Appointment: Xiomara Bettencourt WPtel: [address] [place], [place] [phone] ACUTE ILLNESS 09/29/2014 Referral: Colt Garvin WPtel: [address] Referral Initiated 09/29/2014 Patient Education: Patient Medication Summary Completed 09/29/2014 Visit Plan: Check CBC, CMP, TSH, free T4 , HbA1C, Lipids Accuchecks daily alternating times Patient has been adjusting own meds and has not taken any cholesterol meds for sometime Will check into surgery on right knee at [facility] Check carotid dopplers 08/04/2014 Appointment: Xiomara Bettencourt WPtel: [address] [place], [place] [phone] Annual Well Visit 08/04/2014 Patient Education: Patient Medication Summary Completed 08/04/2014 Appointment: Kelsie Grubbs WPtel: [address] [place] [address] ACUTE ILLNESS 02/18/2014 Patient Education: Patient Medication Summary Completed 02/18/2014 Patient Education: [facility] [place] - Saving AutoInj - 18+ - Dynamic Portal ID Completed 02/18/2014 Appointment: Xiomara Bettencourt WPtel: [address] [place], [place] [phone] [place] LAB 09/08/2013 Visit Plan: Check fasting lab in 1mo Con tinue Lantus and accuchecks at least BID 07/29/2013 Appointment: Xiomara Bettencourt WPtel: [address] [place], [place] [phone] FOLLOW UP 07/29/2013 Patient Education: Patient Medication Summary Completed 07/29/2013 Appointment: Xiomara Bettencourt WPtel: [address] [place], [place] [phone] [place] INJECTION 07/22/2013 Patient Education: Patient Medication Summary Completed 07/22/2013 Visit Plan: Pt has been self-adjusting m eds Stop metformin and amaryl Use Levemir 25u sc BID and call in 1wk with BS readings 05/26/2013 Appointment: Xiomara Bettencourt WPtel: [address] [place], [place] [phone] FOLLOW UP 05/26/2013 Patient Education: Patient Medication Summary Completed 05/26/2013 Visit Plan: DC Metformin Increase Lantus to 30u sc daily Change lisinopril to lisinopril HCT 20/25mg q AM Continue Gabapentin at current dose 04/28/2013 App[facility]ment[facility] Bet[facility]court [facility] [phone] [facility] [facility] 04/28/2013 Patient Education: Patient Medication Summary Completed 04/28/2013 Appointment: Xiomara Bettencourt WPtel: [phone] [facility] LAB 03/12/2013 Patient Education: Patient Medication Summary Completed 03/12/2013 Visit Plan: Trial of neurontin 400mg q H S Obtain most recent lab results Change levemir to lantus per pt request Pt goes for sleep study tonite 03/11/2013 Appointment: Xiomara Bettencourt WPtel: [phone] [facility] 02/01paperwork mailed 03/10 confirmed with spouse NEW PATIENT 11/2012 Patient Education: Patient Medication Summary Completed 03/11/2013 Instructions Comment . Saline nasal flushes prn. Tylenol/Motr in prn headache. Notify if persists/symptoms worsening. . CXR now to further evaluate symptoms Suspect viral since he has been on 2 rounds of antibiotics If chronic lung disease evident, will consider keeping on symbicort [employer] Sample inhaler given today with instructions on [...] to taking plavix and aspirin daily and chcf use is dangerous Check CBC, CMP, TSH, [...] check into surgery on right knee at [facility] Check carotid dopplers . Check fasting [...]
--- OUTSIDE RECORDS SUMMARY | 2020-02-02 21:33 | XMS REPORT | CCD ---
Author Author Sheng Bettencourt D.O. Organization [facility] Address [address] [place] [address] Phone Care Team Providers Care [employer] Name Role Phone PP Unavailable CCM Unavailable Summary Purpose Interface Exchange Insurance Providers Payer name Policy type / Coverage type Covered alliance party ID Effective Begin Date Effective End Date WPS MEDICARE PART B [place] Medicare Part B [id number] 2018 Unknown [facility] Medicare Part B [id number] 2018 Un known Family history Mother Diagnosis Age At Onset Diabetes mellitus Type 2 Unknown Hypercholesterolemia Unknown Father Diagnosis Age At Onset No Family Disease Entered N/A Social History Social History Element Codes Description Effective Dates Marital status Unknown 03/11/2013 Number of children Unknown 4 03/11/2013 Employment Unknown Retired 03/11/[address]: 9713428 Former smoker 03/11/[address]: 274551 Currently drinks alc ohol Socially 03/11/2013 Has [...] Fill Instructions Flomax 0.4 mg capsule RxNorm: 819142 TAKE TWO CAPSULES BY MOUTH EVERY EVENING 11/11/2019 No Stop Date Active glimepiride 2 mg tablet RxNorm: 608814 1 Tablet(s) Oral QD 10/27/19 20 No Stop Date Active gabapentin 400 mg capsule RxNorm: 912542 1 Capsule(s) Oral QPM 10/0604/24/2020 Active potassium chloride ER 20 mEq tablet,extended release RxNorm: 171537 1 Tablet(s) Oral QD to take with lasix 10/20/2019 10/26/2019 Inactive furosemide 40 mg tablet RxNorm: 401082 1 Tablet(s) Oral QAM for swelling 10/20/2019 10/26/2019 Inactive albuterol sulfate HFA 90 mcg/actuation aerosol inhaler RxNor m: 7356984 1-2 Puff(s) Inhalation as needed 10/12/2019 No Stop Date Active Zyrtec 10 mg tablet RxNorm: 1881585 1 Tablet(s) Oral QAM 10/12/2019 No Stop Date Active aspirin 81 mg tablet,delayed release RxNorm: 109191 1 Tablet(s) Oral QD 10/12/2019 No Stop Date Active Symbicort 160 mcg-4.5 mcg/actuation HFA aerosol inhaler RxNo rm: 6176713 2 Puff(s) Inhalation QD 10/12/2019 No Stop Date Active lisinopril 20 mg tablet RxNorm: 828739 1 Tablet(s) Oral QD 10/12/19 20 01/10/2020 Active simvastatin 20 mg tablet RxNorm: 703564 1 Tablet(s) Ora l QD Needs updated fasting labs 09/20/2019 12/19/2019 Active Needs updated fa sting labs before 90 day refill Flomax 0.4 mg capsule RxNorm: 069350 TAKE TWO CAPSULES BY MOUTH EVERY EVENING 08/03/2019 11/10/2019 Inactive gabapentin 400 mg capsule RxNorm: 414044 TAKE ONE CAPSU LE BY MOUTH EVERY EVENING 08/02/2019 10/26/2019 Inactive simvastatin 20 mg tablet RxNorm: 604485 1 Tablet(s) Ora l QD Needs updated fasting labs 07/21/2019 08/19/2019 Inactive Needs updated fa sting labs before 90 day refill simvastatin 20 mg tablet RxNorm: 579867 1 Tablet(s) Ora l QD Needs updated fasting labs 06/23/2019 07/20/2019 Inactive Needs updated fa sting labs before 90 day refill Flomax 0.4 mg capsule RxNorm: 116263 1 Capsule(s) Oral QD 05/13/2019 10/19/2019 Inactive Flomax 0.4 mg capsule RxNorm: 000221 TAKE TWO CAPSULES BY MOUTH EVERY EVENING 03/19/2019 05/12/2019 Inactive Augmentin 500 mg-125 mg tablet RxNorm: 973695 1 Tablet(s) PO BID 03/03/2019 Inactive baclofen 10 mg tablet RxNorm: 620990 TAKE ONE TABLET BY MOUTH EVERY NIGHT AT BEDTIME FOR PAIN OR SPASMS 01/14/2019 05/12/2019 Inactive Flomax 0.4 mg capsule RxNorm: 865612 TAKE TWO CAPSULES BY MOUTH EVERY EVENING 01/12/2019 03/18/2019 Inactive gabapentin 400 mg capsule RxNorm: 474276 1 Capsule(s) PO QPM 201806/27/2019 Inactive baclofen 10 mg tablet RxNorm: 769000 1 Tablet(s) PO QHS for my n/spasm 12/15/2018 01/13/2019 Inactive simvastatin 20 mg tablet RxNorm: 909284 TAKE ONE TABLET BY MOUT H DAILY 12/11/2018 06/22/2019 Inactive OneTouch Ultra Blue Test Strip RxNorm: Use 1 rigoberto t strip three times daily to check blood sugar (Dx:E11.65) 12/07/2018 No Stop Date Active gabapentin 400 mg capsule RxNorm: 279298 TAKE ONE CAPSU LE BY MOUTH EVERY EVENING 12/04/2018 12/29/2018 Inactive baclofen 10 mg tablet RxNorm: 121461 1 Tablet(s) PO QHS for my n/spasm 11/19/2018 12/15/2018 Inactive Flomax 0.4 mg capsule RxNorm: 275886 2 Capsule(s) PO QPM 09/15/2018 0 12/13/2018 Inactive WOULD LIKE 90DS!!! gabapentin 400 mg capsule RxNorm: 291954 TAKE ONE CAPSU LE BY MOUTH EVERY EVENING 07/21/2018 10/18/2018 Inactive simvastatin 20 mg tablet RxNorm: 292425 1 Tablet(s) PO QD 06/15/2018 12/10/2018 Inactive Flomax 0.4 mg capsule RxNorm: 063867 TAKE TWO CAPSULES BY MOUTH EVERY EVENING 06/02/2018 09/15/2018 Inactive WOULD LIKE 90DS!!! Flomax 0.4 mg capsule RxNorm: 178289 2 Capsule(s) PO QPM 04/21/2018 1 07/20/2017 Inactive simvastatin 20 mg tablet RxNorm: 347536 1 Tablet(s) PO QD Take 1 tablet by mouth daily. Patient due for labwork before further refill. 04/06/20182017 Inactive simvastatin 20 mg tablet RxNorm: 498361 Tablet(s) TAKE ONE TABLET BY MOUTH DAILY 03/25/2018 06/15/2018 Inactive simvastatin 20 mg tablet RxNorm: 648917 Tablet(s) TAKE ONE TABLET BY MOUTH DAILY due for appt 12/29/2017 03/25/2018 Inactive simvastatin 20 mg tablet RxNorm: 477135 TAKE ONE TABLET BY MOUT H DAILY 09/03/2017 12/29/2017 Inactive simvastatin 20 mg tablet RxNorm: 577034 1 Tablet(s) PO QD 10/22/2016 11/18/2018 Inactive isosorbide mononitrate ER 60 mg tablet,extended release 24 h r RxNorm: 055335 1 Tablet(s) PO QD 10/22/2016 04/21/2017 Inactive isosorbide mononitrate ER 60 mg tablet,extended release 24 h r RxNorm: 083947 1 Tablet(s) PO QD 10/10/2016 10/21/2016 Inactive simvastatin 20 mg tablet RxNorm: 937850 1 Tablet(s) PO QD 10/10/2016 10/21/2016 Inactive gabapentin 400 mg capsule RxNorm: 379716 1 Capsule(s) PO QPM 201609/20/2016 Inactive Toujeo SoloStar 300 unit/mL (1.5 mL) subcutaneous insulin pe n RxNorm: 7795662 35 Unit(s) SQ QAM 07/23/2016 07/22/2016 Inactive Toujeo SoloStar 300 unit/mL (1.5 mL) subcutaneous insulin pe n RxNorm: 7681303 40 Unit(s) SQ QAM 09/01/2015 No Stop Date Active Symbicort 160 mcg-4.5 mcg/actuation HFA aerosol inhaler RxNo rm: 1319875 2 Puff(s) INH BID 08/31/2015 09/09/2015 Inactive prednisone 20 mg tablet RxNorm: 762963 1 Tablet(s) PO BID 08/29/2015 09/02/2015 Inactive albuterol sulfate 2.5 mg/3 mL (0.083 %) solution for n ebulization RxNorm: 293855 1 Unit(s) INH Q4H as needed 08/29/2015 10/09/2016 Inactive levothyroxine 75 mcg tablet RxNorm: 433191 1 Tablet(s) PO QD 201507/27/2015 Inactive levothyroxine 75 mcg tablet RxNorm: 483807 1 Tablet(s) PO QD 201511/18/2018 Inactive levothyroxine 75 mcg tablet RxNorm: 099099 1 Tablet(s) PO QD 201507/27/2015 Inactive lisinopril 20 mg-hydrochlorothiazide 25 mg tablet RxNorm: 19 7887 TAKE ONE TABLET BY MOUTH EVERY MORNING. REPLACES PLAIN LISINOPRIL 03/06/2015 04/21/2017 Inactive lisinopril 20 mg-hydrochlorothiazide 25 mg tablet RxNorm: 19 7887 TAKE ONE TABLET BY MOUTH EVERY MORNING. REPLACES PLAIN LISINOPRIL 09/08/2014 03/05/2015 Inactive allopurinol 100 mg tablet RxNorm: 147193 1 Tablet(s) PO BID 015 10/09/2016 Inactive [SAVINGS FOR NON-COVERED YULIA GS -- BIN:[id number], PCN: [id number], Group: [id number], ID# [id number], Questions: . THIS IS NOT INSURANCE.] levothyroxine 50 mcg tablet RxNorm: 968762 1 Tablet(s) PO QD 201407/26/2015 Inactive [AttnRPh: Saving apply/adjud icate RxGRP:SG20 RxBIN:[id number] RxPCN: ID#:[id number]] Zegerid 40 mg-1.1 gram capsule RxNorm: 114916 1 Capsule(s) PO QD 03/03/2014 Inactive [AttnRPh: Saving apply/adjud icate RxGRP:SG20 RxBIN:[id number] RxPCN: ID#:[id number]] ondansetron 8 mg disintegrating tablet RxNorm: 464011 1 Tablet(s) PO Q8H as needed for [...] 07/28/2013 Inactive gabapentin 400 mg capsule RxNorm: 222473 1 Capsule(s) PO QPM 201207/28/2013 Inactive gabapentin 400 mg capsule RxNorm: 232090 1 Capsule(s) PO QPM 201206/26/2013 Inactive lisinopril 20 mg-hydrochlorothiazide 25 mg tablet RxNorm: 82 3971 1 Tablet(s) PO QAM replaces plain lisinopril 04/28/2013 07/29/2013 Inactive gabapentin 400 mg capsule RxNorm: 282909 1 Capsule(s) PO QPM 201204/27/2013 Inactive gabapentin 400 mg capsule RxNorm: 742520 1 Capsule(s) PO QPM 201203/10/2013 Inactive gabapentin 400 mg capsule RxNorm: 340663 1 Capsule(s) PO QPM 201203/14/2013 Inactive Lantus Solostar 100 unit/mL (3 mL) Sub-Q Insulin Pen RxNorm: 161005 20 Unit(s) SQ QPM 03/11/2013 03/15/2013 Inactive Toujeo SoloStar 300 unit/mL (1.5 mL) subcutaneous insulin pe n RxNorm: 3452125 35 Unit(s) SQ QAM No Start Date Active omeprazole 20 mg capsule,delayed release RxNorm: 018942 1 Capsu le(s) PO QD No Start Date Active isosorbide mononitrate ER 60 mg tablet,extended release 24 h r RxNorm: 882361 1 Tablet(s) PO QD No Start Date Active Eliquis 5 mg tablet RxNorm: 8980545 1 Tablet(s) PO BID No Start Date Active metformin 500 mg tablet RxNorm: 064828 1 Tablet(s) PO BID No Start Da te Active levothyroxine 50 mcg tablet RxNorm: 726482 1 Tablet(s) PO QD No Start Date Active Norvasc 10 mg tablet RxNorm: 817772 1 Tablet(s) PO QHS No Start Date Active Toujeo SoloStar 300 unit/mL (1.5 mL) subcutaneous insulin pe n RxNorm: 6729162 30 Unit(s) SQ QAM No Start Date Active glimepiride 4 mg tablet RxNorm: 797988 1 Tablet(s) PO QHS No Start Date 07/26/2015 Inactive allopurinol 100 mg tablet RxNorm: 428340 1 Tablet(s) PO BID No Star t Date 08/10/2014 Inactive Lantus Solostar 100 unit/mL (3 mL) subcutaneous insulin pen RxNorm: 398087 30 Unit(s) SQ QD No Start Date 08/03/2014 Inactive Levemir FlexTouch 100 unit/mL (3 mL) subcutaneous insulin pe n RxNorm: 353212 25 Unit(s) SQ QAM No Start Date 07/23/2015 Inactive Lantus 100 unit/mL Sub-Q RxNorm: 070136 30 Unit(s) SQ QHS No Start Date 05/25/2013 Inactive Lantus Solostar 100 unit/mL (3 mL) Sub-Q Insulin Pen RxNorm: 472651 20 Unit(s) SQ QPM No Start Date 03/10/2013 Inactive OneTouch Ultra Blue Test Strip RxNorm: Use 1 rigoberto t strip three times daily to check blood sugar (Dx:E11.65) No Start Date 12/06/2018 Inactive Levemir FlexTouch 100 unit/mL (3 mL) subcutaneous insulin pe n RxNorm: 536032 30- 35 Unit(s) SQ QAM No Start Date 07/23/2015 Inactive Levemir Flexpen 100 unit/mL (3 mL) solution subcutaneo us insulin pen RxNorm: 955642 20-25 Unit(s) SQ QD No Start Date 07/28/2013 Inactive lisinopril 20 mg tablet RxNorm: 231247 1 Tablet(s) PO QD No Start D ate 10/11/2019 Inactive indomethacin ER 75 mg capsule,extended release RxNorm: 73108 2 1 Capsule(s) PO QAM No Start Date 04/27/2013 Inactive indomethacin ER 75 mg capsule,extended release RxNorm: 59006 2 1 Capsule(s) PO QD No Start Date 01/16/2015 Inactive Chlortab-4 oral RxNorm: 838276 oral No Start Date 10/11/2019 Inac tive Vitamin D3 5,000 unit tablet RxNorm: 241798 1 Tablet(s) PO QD No St art Date 08/03/2014 Inactive Levemir Flexpen 100 unit/mL (3 mL) solution subcutaneo us insulin Pen RxNorm: 305323 20 Unit(s) SQ QHS No Start Date 03/10/2013 Inactive Vytorin 10 mg-40 mg tablet RxNorm: 6292843 1/2 Tablet(s) PO QD No S tart Date 04/20/2018 Inactive oxymetazoline-menthol 0.05 % nasal spray RxNorm: 9710840 [place] COTY No Start Date 10/11/2019 Inactive Patient states he ta kes every 10 hours Toujeo SoloStar 300 unit/mL (1.5 mL) subcutaneous insulin pe n RxNorm: 8386181 35 Unit(s) SQ QAM No Start Date 07/22/2016 Inactive Lantus Solostar 100 unit/mL (3 mL) subcutaneous insulin pen RxNorm: 208470 20 Unit(s) SQ QD No Start Date 08/03/2014 Inactive aspirin 81 mg tablet RxNorm: 492032 1 Tablet(s) PO QD No Start Date 0 08/03/2014 Inactive metformin 500 mg tablet RxNorm: 107796 1 Tablet(s) PO BID No Start Date 07/28/2013 Inactive glimepiride 4 mg tablet RxNorm: 585449 1 Tablet(s) PO BID No Start Date 01/16/2015 Inactive glimepiride 4 mg tablet RxNorm: 126166 1 Tablet(s) PO QD No Start D ate 08/03/2014 Inactive levothyroxine 25 mcg tablet RxNorm: 676085 1 Tablet(s) PO QD No Sta rt Date 08/10/2014 Inactive doxycycline oral RxNorm: 82952 oral No Start Date 05/12/2019 Inac tive aspirin 81 mg tablet RxNorm: 754800 1 Tablet(s) PO QD No Start Date 0 07/21/2018 Inactive isosorbide mononitrate ER 60 mg tablet,extended release 24 h r RxNorm: 184768 1 Tablet(s) PO BID No Start Date 01/16/2015 Inactive metformin 500 mg tablet RxNorm: 406900 1 Tablet(s) PO BID No Start Date 04/27/2013 Inactive Plavix 75 mg tablet RxNorm: 784199 1 Tablet(s) PO QD No Start Date Inactive glimepiride 4 mg tablet RxNorm: 642957 1 Tablet(s) PO QPM No Start Date 02/21/2019 Inactive Vytorin 10-40 10 mg-40 mg tablet RxNorm: 1667768 1 Tablet(s) PO QHS No Start Date 08/03/2014 Inactive indomethacin 50 mg capsule RxNorm: 272109 1 Capsule(s) PO QHS No St art Date 01/16/2015 Inactive glimepiride 4 mg tablet RxNorm: 037683 1 Tablet(s) PO BID No Start Date 07/28/2013 Inactive Levemir FlexTouch 100 unit/mL (3 mL) subcutaneous insulin pe n RxNorm: 610490 20 Unit(s) SQ QD No Start Date 04/30/2015 Inactive lisinopril 20 mg tablet RxNorm: 822574 1 Tablet(s) PO BID No Start Date 04/27/2013 Inactive Lantus Solostar SubQ RxNorm: Subcutaneous No Start Date 03/15/2013 I nactive Zantac 150 mg tablet RxNorm: 061912 1 Tablet(s) PO QHS No Start Date 10/11/2019 Inactive allopurinol 300 mg tablet RxNorm: 750304 1 Tablet(s) PO QD No Start Date 08/03/2014 Inactive Fish Oil 1,000 mg capsule RxNorm: 1 Capsule(s) PO QD No Start Date 02/21/2019 Inactive indomethacin 50 mg capsule RxNorm: 217820 1 Capsule(s) PO BID No St art Date 04/20/2018 Inactive levothyroxine 50 mcg tablet RxNorm: 547462 1 Tablet(s) PO QD No Sta rt Date 08/10/2014 Inactive glimepiride 4 mg tablet RxNorm: 413510 1 Tablet(s) PO BID No Start Date 03/15/2013 Inactive indomethacin 50 mg capsule RxNorm: 615951 1 Capsule(s) PO QHS No St art Date 04/27/2013 Inactive Medication Administered No Medication Administered data Immunizations Vaccine Codes Date Status Influenza CVX: 135 04/21/2018 Complete Influenza CVX: 135 04/22/2017 Complete Results Observation Observation Code Item Item Code Result Date S ervice Location [facility] 47256 Cholesterol 209 mg/dL 09/17/2016 Unkno wn [facility] 49217 Triglyceride 111 mg/dL 09/17/2016 Unkn own [facility] 94766 HDL CHOLESTEROL 50 mg/dL 09/17/2016 U nknown [facility] 84626 Chol/HDL Ratio 4.18 ratio 09/17/2016 U nknown [facility] 13732 NON-HDL Chol 159 mg/dL 09/17/2016 Unkn own [facility] 65174 LDL Cholesterol 137 mg/dL 09/17/2016 U nknown MEAN GLUC 2864884 Calc Mean Gluc 151 mg/dL 09/17/2016 Unkn own COMPREHENSIVE METABOLIC 25343 AST 23 U/L 2016 Unknown COMPREHENSIVE METABOLIC 34389 ALT 19 U/L 2016 Unknown COMPREHENSIVE METABOLIC 00632 BUN 15 mg/dL 2016 Unknown COMPREHENSIVE METABOLIC 91043 ALBUMIN 4.3 g/dL 2016 Unknown COMPREHENSIVE METABOLIC 34317 CHLORIDE 103 mmol/L 09/17 Unknown COMPREHENSIVE MET[facility]OLIC 88109 Bili Total 0.6 mg/dL 09/17 Unknown COMPREHENSIVE METABOLIC 85722 ALK PHOS 60 U/L 2016 Unknown COMPREHENSIVE METABOLIC 15563 SODIUM 140 mmol/L 09/17 Unknown COMPREHENSIVE METABOLIC 19726 CREATININE 1.03 mg/dL 09/04 Unknown COMPREHENSIVE METABOLIC 60324 CALCIUM 9.5 mg/dL 2016 Unknown COMPREHENSIVE METABOLIC 48378 POTASSIUM 3.9 mmol/L 09/17 Unknown COMPREHENSIVE METABOLIC 62689 Total Protein 6.9 g/dL Unknown COMPREHENSIVE METABOLIC 31782 Glucose 94 mg/dL 2016 Unknown COMPREHENSIVE METABOLIC 51686 Bicarbonate 28 mmol/L 09/04 Unknown COMPREHENSIVE METABOLIC 46981 AGAP 9 mmol/L 2016 Unknown GFR CALC 2301600 GFR Non Afr Amr >60 mL/min 09/17/2016 Un known GFR CALC 5159648 GFR Afr Amr >60 mL/min 09/17/2016 Unknow n THYROID STIMULATING HORMONE 94258 TSH 4.260 uIU/mL 09/17/2016 Unknown GLYCOSYLATED HEMOGLOBIN TEST 32560 Hgb A1c 78200-3 6.9 % 0 09/17/2016 Unknown FREE T4 77093 T4 Free 1.02 ng/dL 09/17/2016 Unknown COMPLETE BLOOD COUNT [id number] WBC 8.6 10e9/L 07/26/19 16 Unknown COMPLETE BLOOD COUNT [id number] RBC 4.86 10e12/L 2015 Unknown COMPLETE BLOOD COUNT 9756590 HGB 14.6 g/dL 6 Unknown COMPLETE BLOOD COUNT 7703520 HCT DET 43.1 % 6 Unknown COMPLETE BLOOD COUNT 0580537 MCV 88.7 fL 6 Unknown COMPLETE BLOOD COUNT 1663445 MCH 30.0 pg 6 Unknown COMPLETE BLOOD COUNT [id number] MCHC 33.9 g/dL 6 Unknown COMPLETE BLOOD COUNT 9939137 PLT 267 10e9/L 07/26/19 16 Unknown COMPLETE BLOOD COUNT 7406021 MPV 11.5 fL 6 Unknown COMPLETE BLOOD COUNT 0846027 SAM % 64.8 % 6 Unknown COMPLETE BLOOD COUNT 2440890 LY % 16.8 % 6 Unknown COMPLETE BLOOD COUNT 0648773 MON % 12.5 % 6 Unknown COMPLETE BLOOD COUNT 6960349 EOS % 5.6 % 6 Unknown COMPLETE BLOOD COUNT [id number] BASO % 0.3 % 6 Unknown COMPLETE BLOOD COUNT 3532667 RDW 13.4 % 6 Unknown COMPLETE BLOOD COUNT [id number] ABS SAM 5.57 10e9/L 016 Unknown COMPLETE BLOOD COUNT [id number] ABS LYMPH 1.44 10e9/L 016 Unknown COMPLETE BLOOD COUNT [id number] ABS MONO 1.08 10e9/L 016 Unknown COMPLETE BLOOD COUNT [id number] ABS EOS 0.48 10e9/L 016 Unknown COMPLETE BLOOD COUNT [id number] ABS BASO 0.03 10e9/L 016 Unknown COMPLETE BLOOD COUNT [id number] RDW-SD 42.9 fL 6 Unknown PSA EQUIMOLAR MATT 72765 PSA EQ 0.78 NG/ML 6 Unknown THYROID STIMULATING HORMONE 35530 TSH 5.292 uIU/ML 07/26/2015 Unknown GLYCOSYLATED HEMOGLOBIN TEST 76937 A1C HPLC 57311-2 7.0 % 0 07/26/2015 Unknown GFR CALC 7245927 GFR AA >60 ML/MIN 07/26/2015 Unknown GFR CALC 3497878 GFR NON-AA >60 ML/MIN 07/26/2015 Unknown [facility] 60777 HDL TEST 64 MG/DL 07/26/2015 Unknown [facility] 30642 TRIG 58 MG/DL 07/26/2015 Unknown [facility] 12307 TEST LDL 49 MG/DL 07/26/2015 Unknown [facility] 35108 CHOL 125 MG/DL 07/26/2015 Unknown [facility] 15961 RCHOL/HDL 1.95 RATIO 07/26/2015 Unknow n [facility] 28601 NON-HDL CH 61 MG/DL 07/26/2015 Unknow n COMPREHENSIVE METABOLIC 94006 AST 25 U/L 2015 Unknown COMPREHENSIVE METABOLIC 16666 ALT 23 IU/L 2015 Unknown COMPREHENSIVE METABOLIC 52854 BUN 18 MG/DL 2015 Unknown COMPREHENSIVE METABOLIC 68834 ALBUMIN 4.6 GM/DL 2015 Unknown COMPREHENSIVE METABOLIC 72560 CHLORIDE 100 MMOL/L 07/26 Unknown COMPREHENSIVE METABOLIC 71786 BILI TOT 0.5 MG/DL 2015 Unknown COMPREHENSIVE METABOLIC 19782 ALK PHOS 49 U/L 2015 Unknown COMPREHENSIVE METABOLIC 93552 SODIUM 137 MMOL/L 07/26 Unknown COMPREHENSIVE METABOLIC 05015 CREATININE 1.06 MG/DL 07/08 Unknown COMPREHENSIVE METABOLIC 95403 CALCIUM 9.5 MG/DL 2015 Unknown COMPREHENSIVE METABOLIC 72311 POTASSIUM 4.5 MMOL/L 07/26 Unknown COMPREHENSIVE METABOLIC 35267 PROT TOT 6.5 GM/DL 2015 Unknown COMPREHENSIVE METABOLIC 21320 Glucose 109 MG/DL 2015 Unknown COMPREHENSIVE METABOLIC 68456 BICARB 29 MMOL/L 2015 Unknown COMPREHENSIVE METABOLIC 24403 ANION GAP 8 MEQ/L 2015 Unknown FREE T4 47560 FREE T4 1.11 NG/DL 07/26/2015 Unknown CULTURE & SENSITIVITY 28838 PROTEIN UR NEG 015 Unknown [facility] SENSITIVITY 21719 HEMGLBN UR TR 015 Unknown [facility]ULTURE & SENSITIVITY 75190 GLUCOSE UR NEG 015 Unknown [facility]URE & SENSITIVITY 46012 KETONES UR NEG 015 Unknown CULTURE & SENSITIVITY 11460 PH U 6.5 01/25/20 15 Unknown CULTURE & SENSITIVITY 35576 SP GR U 1.013 01/25/20 15 Unknown CULTURE & SENSITIVITY 64791 BILRUBN UR NEG 015 Unknown CULTURE & SENSITIVITY 89035 LEUKO UR NEG 01/25/20 15 Unknown CULTURE & SENSITIVITY 27348 NITRITE UR NEG 015 Unknown MICR CUL? [id number] SP TO JOHANA? NO 01/24/2015 Unknown MICR CUL? [id number] APPEAR UR NORMAL 01/24/2015 Unknown MICR CUL? 3420564 RBC/uL 2.2 01/24/2015 Unknown MICR CUL? 0124309 WBC/uL 2.8 01/24/2015 Unknown MICR CUL? 1208377 SQ EPI/uL 1.0 01/24/2015 Unknown MICR CUL? 6152918 HYALCST/uL 0.25 01/24/2015 Unknown MICR CUL? 0422347 WBC /HPF 1 01/24/2015 Unknown MICR CUL? 5670949 RBC /HPF 0 01/24/2015 Unknown GLYCOSYLATED HEMOGLOBIN TEST 59611 A1C [facility] 22913-2 6.6 % 0 01/17/2015 Unknown COMPLETE BLOOD COUNT 4603101 WBC 10.1 10e9/L 015 Unknown COMPLETE BLOOD COUNT 2445038 RBC 4.60 10e12/L 2014 Unknown COMPLETE BLOOD COUNT 8699129 HGB 14.0 g/dL 5 Unknown COMPLETE BLOOD COUNT 5797700 HCT DET 39.9 % 5 Unknown COMPLETE BLOOD COUNT 8582478 MCV 86.7 fL 5 Unknown COMPLETE BLOOD COUNT 6894185 MCH 30.4 pg 5 Unknown COMPLETE BLOOD COUNT 8860180 MCHC 35.1 g/dL 5 Unknown COMPLETE BLOOD COUNT 0505669 PLT 252 10e9/L 01/18/20 15 Unknown COMPLETE BLOOD COUNT 7398095 MPV 11.4 fL 5 Unknown COMPLETE BLOOD COUNT 0641263 SAM % 72.9 % 5 Unknown COMPLETE BLOOD COUNT 0240385 LY % 13.6 % 5 Unknown COMPLETE BLOOD COUNT 8167125 MON % 10.2 % 5 Unknown COMPLETE BLOOD COUNT 9565969 EOS % 3.1 % 5 Unknown COMPLETE BLOOD COUNT 4401803 BASO % 0.2 % 5 Unknown COMPLETE BLOOD COUNT 2817323 RDW 13.6 % 5 Unknown COMPLETE BLOOD COUNT 6995216 ABS SAM 7.36 10e9/L 015 Unknown COMPLETE BLOOD COUNT 6912144 ABS LYMPH 1.37 10e9/L 015 Unknown COMPLETE BLOOD COUNT 4695540 ABS MONO 1.03 10e9/L 015 Unknown COMPLETE BLOOD COUNT 6087693 ABS EOS 0.31 10e9/L 015 Unknown COMPLETE BLOOD COUNT 6896079 ABS BASO 0.02 10e9/L 015 Unknown COMPLETE BLOOD COUNT 3478515 RDW-SD 42.4 fL 01/17/201 5 Unknown GFR CALC 6247747 GFR AA 51.0L ML/MIN 01/17/2015 Unknow n GFR CALC 7259098 GFR NON-AA 42.0L ML/MIN 01/17/2015 Unkno wn FREE T4 15198 FREE T4 1.30 NG/DL 01/17/2015 Unknown THYROID STIMULATING HORMONE 49686 TSH 4.029 uIU/ML 01/17/2015 Unknown COMPREHENSIVE METABOLIC 16120 AST 28 U/L 2014 Unknown COMPREHENSIVE METABOLIC 42204 ALT 25 IU/L 2014 Unknown COMPREHENSIVE METABOLIC 43519 BUN 21 MG/DL 2014 Unknown COMPREHENSIVE METABOLIC 54397 ALBUMIN 4.7 GM/DL 2014 Unknown COMPREHENSIVE METABOLIC 57805 CHLORIDE 102 MMOL/L 01/17 Unknown COMPREHENSIVE METABOLIC 45940 BILI TOT 0.6 MG/DL 2014 Unknown COMPREHENSIVE METABOLIC 01560 ALK PHOS 44 U/L 2014 Unknown COMPREHENSIVE METABOLIC 98344 SODIUM 137 MMOL/L 01/17 Unknown COMPREHENSIVE METABOLIC 83165 CREATININE 1.62 MG/DL 01/04 Unknown COMPREHENSIVE METABOLIC 89219 CALCIUM 9.7 MG/DL 2014 Unknown COMPREHENSIVE METABOLIC 97120 POTASSIUM 4.5 MMOL/L 01/17 Unknown COMPREHENSIVE METABOLIC 42894 PROT TOT 6.5 GM/DL 2014 Unknown COMPREHENSIVE METABOLIC 95620 Glucose 136 MG/DL 2014 Unknown COMPREHENSIVE METABOLIC 08829 BICARB 24 MMOL/L 2014 Unknown COMPREHENSIVE METABOLIC 67881 ANION GAP 11 MEQ/L 2014 Unknown VITAMIN B 12 29355 VIT B 12 482 PG/ML 01/17/2015 Unknow n URIC ACID 58114 URIC ACID 8.5 MG/DL 08/09/2014 Unknown COMPREHENSIVE METABOLIC 87645 AST 27 U/L 2014 Unknown COMPREHENSIVE METABOLIC 04322 ALT 26 IU/L 2014 Unknown COMPREHENSIVE METABOLIC 16695 BUN 17 MG/DL 2014 Unknown COMPREHENSIVE METABOLIC 80073 ALBUMIN 5.0 GM/DL 2014 Unknown COMPREHENSIVE METABOLIC 43810 CHLORIDE 101 MMOL/L 08/09 Unknown COMPREHENSIVE METABOLIC 48915 BILI TOT 0.7 MG/DL 2014 Unknown COMPREHENSIVE METABOLIC 73170 ALK PHOS 53 U/L 2014 Unknown COMPREHENSIVE METABOLIC 32045 SODIUM 136 MMOL/L 08/09 Unknown COMPREHENSIVE METABOLIC 40525 CREATININE 1.14 MG/DL 09/2014 Unknown COMPREHENSIVE METABOLIC 48674 CALCIUM 9.8 MG/DL 2014 Unknown COMPREHENSIVE METABOLIC 89789 POTASSIUM 4.1 MMOL/L 08/09 Unknown COMPREHENSIVE METABOLIC 95682 PROT TOT 7.5 GM/DL 2014 Unknown COMPREHENSIVE METABOLIC 16997 Glucose 110 MG/DL 2014 Unknown COMPREHENSIVE METABOLIC 43393 BICARB 30 MMOL/L 2014 Unknown COMPREHENSIVE METABOLIC 84495 ANION GAP 5 MEQ/L 2014 Unknown GFR CALC 6438837 GFR AA >60 ML/MIN 08/09/2014 Unknown GFR CALC 6542711 GFR NON-AA >60 ML/MIN 08/09/2014 Unknown FREE T4 72876 FREE T4 1.14 NG/DL 08/09/2014 Unknown GLYCOSYLATED HEMOGLOBIN TEST 28959 A1C HPLC 29788-1 6.8 % 0 08/09/2014 Unknown COMPLETE BLOOD COUNT [id number] WBC 5.9 10e9/L 08/09/19 15 Unknown COMPLETE BLOOD COUNT [id number] RBC 5.04 10e12/L 2014 Unknown COMPLETE BLOOD COUNT [id number] HGB 15.2 g/dL 5 Unknown COMPLETE BLOOD COUNT [id number] HCT DET 44.3 % 5 Unknown COMPLETE BLOOD COUNT [id number] MCV 87.9 fL 5 Unknown COMPLETE BLOOD COUNT [id number] MCH 30.2 pg 5 Unknown COMPLETE BLOOD COUNT [id number] MCHC 34.3 g/dL 5 Unknown COMPLETE BLOOD COUNT [id number] PLT 262 10e9/L 08/09/19 15 Unknown COMPLETE BLOOD COUNT [id number] MPV 10.9 fL 5 Unknown COMPLETE BLOOD COUNT [id number] SAM % 58.7 % 5 Unknown COMPLETE BLOOD COUNT [id number] LY % 21.5 % 5 Unknown COMPLETE BLOOD COUNT [id number] MON % 14.0 % 5 Unknown COMPLETE BLOOD COUNT [id number] EOS % 5.3 % 5 Unknown COMPLETE BLOOD COUNT [id number] BASO % 0.5 % 5 Unknown COMPLETE BLOOD COUNT [id number] RDW 13.1 % 5 Unknown COMPLETE BLOOD COUNT [id number] ABS SAM 3.46 10e9/L 015 Unknown COMPLETE BLOOD COUNT [id number] ABS LYMPH 1.27 10e9/L 015 Unknown COMPLETE BLOOD COUNT [id number] ABS MONO 0.83 10e9/L 015 Unknown COMPLETE BLOOD COUNT [id number] ABS EOS 0.31 10e9/L 015 Unknown COMPLETE BLOOD COUNT [id number] ABS BASO 0.03 10e9/L 015 Unknown COMPLETE BLOOD COUNT [id number] RDW-SD 41.2 fL 5 Unknown THYROID STIMULATING HORMONE 86989 TSH 5.395 uIU/ML 08/09/2014 Unknown LIPID GROUP [id number] HDL TEST 52 MG/DL 08/09/2014 Unknown LIPID GROUP 16170 TRIG 113 MG/DL 08/09/2014 Unknown LIPID GROUP 01433 TEST LDL 158 MG/DL 08/09/2014 Unknown LIPID GROUP 16601 CHOL 233 MG/DL 08/09/2014 Unknown LIPID GROUP 93670 RCHOL/HDL 4.48 RATIO 08/09/2014 Unknow n LIPID GROUP 89160 NON-HDL CH 181 MG/DL 08/09/2014 Unknow n COMPLETE BLOOD COUNT [id number] WBC 6.8 10e9/L 09/09/19 14 Unknown COMPLETE BLOOD COUNT [id number] RBC 5.18 10e12/L 2013 Unknown COMPLETE BLOOD COUNT [id number] HGB 15.2 g/dL 4 Unknown COMPLETE BLOOD COUNT [id number] HCT DET 44.7 % 4 Unknown COMPLETE BLOOD COUNT [id number] MCV 86.3 fL 4 Unknown COMPLETE BLOOD COUNT [id number] MCH 29.3 pg 4 Unknown COMPLETE BLOOD COUNT [id number] MCHC 34.0 g/dL 4 Unknown COMPLETE BLOOD COUNT [id number] PLT 236 10e9/L 09/09/19 14 Unknown COMPLETE BLOOD COUNT [id number] MPV 11.0 fL 4 Unknown COMPLETE BLOOD COUNT [id number] SAM % 58.2 % 4 Unknown COMPLETE BLOOD COUNT [id number] LY % 21.9 % 4 Unknown COMPLETE BLOOD COUNT [id number] MON % 12.5 % 4 Unknown COMPLETE BLOOD COUNT [id number] EOS % 7.3 % 4 Unknown COMPLETE BLOOD COUNT [id number] BASO % 0.1 % 4 Unknown COMPLETE BLOOD COUNT [id number] RDW 13.6 % 4 Unknown COMPLETE BLOOD COUNT [id number] ABS SAM 3.96 10e9/L 014 Unknown COMPLETE BLOOD COUNT [id number] ABS LYMPH 1.49 10e9/L 014 Unknown COMPLETE BLOOD COUNT [id number] ABS MONO 0.85 10e9/L 014 Unknown COMPLETE BLOOD COUNT [id number] ABS EOS 0.50 10e9/L 014 Unknown COMPLETE BLOOD COUNT [id number] ABS BASO 0.01 10e9/L 014 Unknown COMPLETE BLOOD COUNT [id number] RDW-SD 42.3 fL 4 Unknown COMPREHENSIVE METABOLIC 42144 AST 27 U/L 2013 Unknown COMPREHENSIVE METABOLIC 42703 ALT 30 IU/L 2013 Unknown COMPREHENSIVE METABOLIC 58795 BUN 16 MG/DL 2013 Unknown COMPREHENSIVE METABOLIC 30943 ALBUMIN 4.9 GM/DL 2013 Unknown COMPREHENSIVE METABOLIC 05837 CHLORIDE 99 MMOL/L 2013 Unknown COMPREHENSIVE METABOLIC 33587 BILI TOT 0.7 MG/DL 2013 Unknown COMPREHENSIVE METABOLIC 06660 ALK PHOS 53 U/L 2013 Unknown COMPREHENSIVE METABOLIC 63406 SODIUM 137 MMOL/L 09/08 Unknown COMPREHENSIVE METABOLIC 85601 CREATININE 1.01 MG/DL 11/2013 Unknown COMPREHENSIVE METABOLIC 85132 CALCIUM 10.0 MG/DL 09/08 Unknown COMPREHENSIVE METABOLIC 04172 POTASSIUM 4.4 MMOL/L 09/08 Unknown COMPREHENSIVE METABOLIC 10742 PROT TOT 7.1 GM/DL 2013 Unknown COMPREHENSIVE METABOLIC 19624 Glucose 148 MG/DL 2013 Unknown COMPREHENSIVE METABOLIC 44301 BICARB 30 MMOL/L 2013 Unknown COMPREHENSIVE METABOLIC 51343 ANION GAP 8 MEQ/L 2013 Unknown GFR CALC 8438381 GFR AA >60 ML/MIN 09/08/2013 Unknown GFR CALC 9744753 GFR NON-AA >60 ML/MIN 09/08/2013 Unknown FREE T4 20165 FREE T4 1.08 NG/DL 09/08/2013 Unknown GLYCOSYLATED HEMOGLOBIN TEST 38157 A1C HPLC 57402-4 7.3 % 0 09/08/2013 Unknown THYROID STIMULATING HORMONE 54706 TSH 5.454 uIU/ML 09/08/2013 Unknown LIPID GROUP 95143 HDL TEST 59 MG/DL 09/08/2013 Unknown LIPID GROUP 18144 TRIG 92 MG/DL 09/08/2013 Unknown LIPID GROUP 04604 TEST LDL 83 MG/DL 09/08/2013 Unknown LIPID GROUP 81753 CHOL 160 MG/DL 09/08/2013 Unknown LIPID GROUP 93846 RCHOL/HDL 2.71 RATIO 09/08/2013 Unknow n VITAMIN B 12 FOLIC ACID 33018|14618 VIT B 12 467 PG/ML 12/2012 Unknown VITAMIN B 12 FOLIC ACID 30807|71926 FOLIC ACID 12.2 NG/ML Unknown VITAMIN B 12 FOLIC ACID 90307|83723 VIT B 12 467 PG/ML 12/2012 Unknown THYROID STIMULATING HORMONE 35543 TSH 4.557 uIU/ML 03/12/2013 Unknown HEMOGLOBIN A1C (GLYCOSYLATED) 2904372 A1C HPLC 05628-3 7.6 % 03/12/2013 Unknown VITAMIN D TOTAL (25 HYDROXY) 58649 VIT D TOTL 17 NG/ML 03/12/2013 Unknown FREE T4 58759 FREE T4 1.07 NG/DL 03/12/2013 Unknown URIC ACID 74992 URIC ACID 5.2 MG/DL 03/12/2013 Unknown Procedures Procedure Codes Date THER/PROPH/DIAG INJ SC/IM CPT-4: 55198 05/13/2019 TRIAMCINOLONE ACET INJ NOS CPT-4: J3301 05/13/2019 DEXAMETHASONE SODIUM PHOS CPT-4: J1100 05/13/2019 THER/PROPH/DIAG INJ SC/IM CPT-4: 33262 02/22/2019 TRIAMCINOLONE ACET INJ NOS CPT-4: J3301 02/22/2019 FLU VACC PRSV FREE INC ANTIG 65 AND OLDER CPT-4: 63332 04/21/2018 ADMIN INFLUENZA VIRUS VAC CPT-4: G0008 04/21/2018 PRESCRIP TRANSMIT VIA ERX SY CPT-4: G8553 04/21/2018 DESTRUCT PREMALG LESION (Cryosurgery) CPT-4: 84964 FLU VACC PRSV FREE INC ANTIG 65 AND OLDER CPT-4: 17939 04/22/2017 ADMIN INFLUENZA VIRUS VAC CPT-4: G0008 04/22/2017 PRESCRIP TRANSMIT VIA ERX SY CPT-4: G8553 10/10/2016 PRESCRIP TRANSMIT VIA ERX SY CPT-4: G8553 08/29/2015 ROUTINE VENIPUNCTURE CPT-4: 39002 07/26/2015 ASSAY OF FREE THYROXINE CPT-4: 89207 07/26/2015 ASSAY THYROID STIM HORMONE CPT-4: 19410 07/26/2015 COMPREHEN METABOLIC PANEL CPT-4: 65867 07/26/2015 COMPLETE CBC W/AUTO DIFF WBC CPT-4: 17583 07/26/2015 LIPID PANEL CPT-4: 88071 07/26/2015 ASSAY OF PSA TOTAL CPT-4: 52260 07/26/2015 A1C HPLC CPT-4: 54569 07/26/2015 ROUTINE VENIPUNCTURE CPT-4: 31253 01/17/2015 ASSAY OF FREE THYROXINE CPT-4: 64731 01/17/2015 ASSAY THYROID STIM HORMONE CPT-4: 42399 01/17/2015 COMPREHEN METABOLIC PANEL CPT-4: 39089 01/17/2015 COMPLETE CBC W/AUTO DIFF WBC CPT-4: 31587 01/17/2015 A1C HPLC CPT-4: 70018 01/17/2015 VITAMIN B-12 CPT-4: 10088 01/17/2015 PPPS, subseq visit CPT-4: G0439 08/04/2014 PRESCRIP TRANSMIT VIA ERX SY CPT-4: G8553 02/18/2014 FLUZONE, 5ML (Medicare) CPT-4: Q2038 07/22/2013 ADMIN INFLUENZA VIRUS VAC CPT-4: G0008 07/22/2013 PRESCRIP TRANSMIT VIA ERX SY CPT-4: G8553 04/28/2013 ROUTINE VENIPUNCTURE CPT-4: 09830 03/12/2013 VITAMIN D TOTAL (25 HYDROXY) CPT-4: 90827 03/12/2013 VITAMIN B 12 FOLIC ACID CPT-4: 17454|46555 03/12/2013 A1C GLYCOSYLATED HEMOGLOBIN TEST CPT-4: 89915 013 ASSAY OF BLOOD/URIC ACID CPT-4: 07782 03/12/2013 ASSAY OF FREE THYROXINE CPT-4: 30832 03/12/2013 ASSAY THYROID STIM HORMONE CPT-4: 98459 03/12/2013 CUR TOBACCO NON-USER CPT-4: G8457 03/11/2013 [...] 1: 156/70 Code: 8480-6 BMI: 35.0 Code: 16161-4 Heart Rate 1: 68 bpm Height: 5'10" Respiratory Rate: 20 bpm SpO2: 95% Tempera ture: 36.5 (C) / 97.7 (F) Weight: 244 lbs 04/21/2018 Blood Pressure 1: 124/80 Code: 8480-6 BMI: 34.4 Code: 31620-8 Heart Rate 1: 80 bpm Height: 5'10" Respiratory Rate: 20 bpm SpO2: 96% Tempera ture: 37.0 (C) / 98.6 (F) Weight: 240 lbs 01/06/2018 Blood Pressure 1: 138/82 Code: 8480-6 BMI: 33.9 Code: 95954-5 Heart Rate 1: 96 bpm Height: 5'10" Respiratory Rate: 24 bpm SpO2: 98% Tempera ture: 35.9 (C) / 96.6 (F) Weight: 236 lbs 10/22/2017 Blood Pressure 1: 144/70 Code: 8480-6 BMI: 34.7 Code: 34224-5 Heart Rate 1: 72 bpm Height: 5'10" Respiratory Rate: 20 bpm SpO2: 96% Tempera ture: 36.9 (C) / 98.4 (F) Weight: 242 lbs 04/22/2017 Blood Pressure 1: 146/82 Code: 8480-6 BMI: 32.9 Code: 40711-9 Heart Rate 1: 104 bpm Height: 5'10" Respiratory Rate: 20 bpm SpO2: 95% Tempera ture: 36.9 (C) / 98.5 (F) Weight: 229 lbs 10/10/2016 Blood Pressure 1: 124/64 Code: 8480-6 BMI: 32.9 Code: 27403-2 Heart Rate 1: 64 bpm Height: 5'10" [...] 1: 146/90 Code: 8480-6 BMI: 34.1 Code: 19056-7 Heart Rate 1: 80 bpm Height: 5'10" Respiratory Rate: 20 bpm Temperature: 36 .8 (C) / 98.2 (F) Weight: 238 lbs 01/17/2015 Blood Pressure 1: 116/60 Code: 8480-6 BMI: 32.7 Code: 47413-3 Heart Rate 1: 84 bpm Height: 5'10" Respiratory Rate: 20 bpm Temperature: 36 .7 (C) / 98.0 (F) Weight: 228 lbs 09/29/2014 Blood Pressure 1: 136/78 Code: 8480-6 BMI: 33.9 Code: 37334-6 Heart Rate 1: 80 bpm Height: 5'10" Respiratory Rate: 20 bpm Temperature: 36 .6 (C) / 97.9 (F) Weight: 236 lbs 08/04/2014 Blood Pressure 1: 132/70 Code: 8480-6 BMI: 32.9 Code: 87327-5 Heart Rate 1: 72 bpm Height: 5'10" Respiratory Rate: 20 bpm Temperature: 36 .7 (C) / 98.0 (F) Weight: 229 lbs 02/18/2014 Blood Pressure 1: 124/82 Code: 8480-6 Heart Rate 1: 82 bpm Respiratory Rate: 18 bpm Temperature: 36.4 (C) / 97.5 (F) Weight: 232 lbs 07/29/2013 Blood Pressure 1: 146/80 Code: 8480-6 BMI: 34.1 Code: 22655-1 Heart Rate 1: 64 bpm Height: 5'10" Respiratory Rate: 20 bpm Temperature: 36 .9 (C) / 98.5 (F) Weight: 238 lbs 05/26/2013 Blood Pressure 1: 142/90 Code: 8480-6 BMI: 34.0 Code: 66473-9 Heart Rate 1: 84 bpm Height: 5'10" Respiratory Rate: 20 bpm Temperature: 36 .7 (C) / 98.0 (F) Weight: 237 lbs 04/28/2013 Blood Pressure 1: 118/78 Code: 8480-6 BMI: 32.9 Code: 47191-5 Heart Rate 1: 74 bpm Height: 5'10" Respiratory Rate: 20 bpm Temperature: 36 .1 (C) / 97.0 (F) Weight: 229 lbs 03/11/2013 Blood Pressure 1: 146/80 Code: 8480-6 BMI: 31.5 Code: 02926-6 Heart Rate 1: 80 bpm Height: 6' [...] recently gerardo ated by urgent care with jama and abisai follow up 07/22/2018 follow up 04/21/2018 follow [...] care Encounters Encounter Performer Location Codes Date ([id number]) OFFICE/OUTPATIENT VISIT EST Diagnosis: Esophageal reflux[ICD10: K21.9] Diagnosis: History of bladder cancer[ICD10: Z85.51] Xiomara BETTENCOURT [employer] CPT-4: 14994 12/07/2019 ([id number]) OFFICE/OUTPATIENT VISIT EST Diagnosis: DM w/o complication type II, uncontrolled[ICD10: E11.65] Diagnosis: Other dyspnea and respiratory abnormality[ICD10: R06.09] Xiomara BETTENCOURT [employer] [facility] CPT-4: 37438 10/27/2019 ([id number]) OFFICE/OUTPATIENT VISIT EST Diagnosis: Chronic obstructive pulmonary disease, unspecified[ICD10: J44.9] Diagnosis: DM w/o complication type II, uncontrolled[ICD10: E11.65] Diagnosis: Edema[ICD10: R60.9] Xiomara BETTENCOURT [employer] [facility] CPT-4: 84788 10/20/2019 ([id number]) OFFICE/OUTPATIENT VISIT EST Diagnosis: Other dyspnea and respiratory abnormality[ICD10: R06.09] Diagnosis: Obstructive sleep apnea[ICD10: G47.33] Diagnosis: Hypotension[ICD10: I95.9] Xiomara Bettencourt [facility] CPT -4: 40439 10/12/2019 ([id number]) OFFICE/OUTPATIENT VISIT EST Diagnosis: Upper respiratory infection[ICD10: J06.9] Pennie BRADLEY [employer] Systems[employer] MCGEERobert Applebaum MDROBI [employer] [facility] CPT-4: 90157 06/02/2019 ([id number]) OFFICE/OUTPATIENT VISIT EST Diagnosis: Sinusitis[ICD10: J32.9] Diagnosis: Allergic rhinitis[ICD10: J30.9] Pennie BETTENCOURT [facility] CPT-4: 06925 05/13/2019 ([id number]) OFFICE/OUTPATIENT VISIT EST Diagnosis: Pneumonia[ICD10: J18.9] Pennie ROSENBAUM [facility] CPT-4: 96202 04/26/2019 ([id number]) OFFICE/OUTPATIENT VISIT EST Diagnosis: Acute sinusitis, unspecified[ICD10: J01.90] Pennie BETTENCOURT [facility] CPT-4: 89120 02/22/2019 ([id number]) OFFICE/OUTPATIENT VISIT EST Diagnosis: Cervicalgia[ICD10: M54.2] Xiomara MAGALLON [facility] CPT-4: 25071 11/25/2018 ([id number]) OFFICE/OUTPATIENT VISIT EST Diagnosis: Acute sinusitis, unspecified[ICD10: J01.90] Diagnosis: Myalgia, unspecified site[ICD10: M79.10] Diagnosis: Cervicalgia[ICD10: M54.2] [facility]: 37925 11/19/2018 ([id number]) OFFICE/OUTPATIENT VISIT EST Diagnosis: Low back pain[ICD10: M54.5] Diagnosis: Essential (primary) hypertension[ICD10: I10] Diagnosis: 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, 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] Diagnosis: Paroxysmal atrial fibrillation[ICD10: I48.0] Xiomara BETTENCOURT [facility] CPT-4: 37929 07/22/2018 ([id number]) OFFICE/OUTPATIENT VISIT EST Diagnosis: Type 2 diabetes mellitus with diabetic neuropathy, unspecified[ICD10: E11.40] Diagnosis: Hyperlipidemia, unspecified[ICD10: E78.5] Diagnosis: Essential (primary) hypertension[ICD10: I10] Diagnosis: Chronic kidney disease, stage 1[ICD10: N18.1] Diagnosis: Benign prostatic hyperplasia with lower urinary tract symptoms[ICD10: N40.1] Diagnosis: FLU VACCINE[ICD10: Z23] Xiomara MCBRIDE [facility] CPT-4: 81440 04/21/2018 OFFICE/OUTPATIENT VISIT EST Diagnosis: Type 2 diabetes mellitus with hyperglycemia[ICD10: E11.65] Diagnosis: Essential (primary) hypertension[ICD10: I10] Diagnosis: Mixed hyperlipidemia[ICD10: E78.2] Diagnosis: Other fatigue[ICD10: R53.83] Pennie Pizarro XIOMARA DelphineEdvin [employer] CPT-4: 52067 01/06/2018 ([id number]) OFFICE/OUTPATIENT VISIT EST Diagnosis: Type 2 diabetes mellitus with diabetic neuropathy, unspecified[ICD10: E11.40] Diagnosis: Essential (primary) hypertension[ICD10: I10] Diagnosis: Pain in right thigh[ICD10: M79.651] Diagnosis: Pain in left leg[ICD10: M79.605] Diagnosis: Localized swelling, mass and lump, left lower limb[ICD10: R22.42] Diagnosis: OSTEOARTHRISIS MULTI SITES[ICD10: M19.90] Diagnosis: FLU VACCINE[ICD10: Z23] Xiomara LARA DelphineEdvin ARELYSHAAN [employer] [facility] CPT-4: 42847 04/22/2017 ([id number]) OFFICE/OUTPATIENT VISIT EST Diagnosis: Essential (primary) hypertension[ICD10: I10] Diagnosis: Type 2 diabetes mellitus with hyperglycemia[ICD10: E11.65] Diagnosis: Angina pectoris, unspecified[ICD10: I20.9] Xiomara LARA DelphineEdvin [employer] CPT-4: 55624 10/10/2016 ([id number]) OFFICE/OUTPATIENT VISIT EST Diagnosis: Cough[ICD10: R05] Diagnosis: Wheezing[ICD10: R06.2] Diagnosis: Chronic obstructive pulmonary disease, unspecified[ICD10: J44.9] Shannan Gan REED [employer] [facility] CPT-4: 92583 08/31/2015 OFFICE/OUTPATIENT VISIT EST Diagnosis: Acute bronchitis, unspecified[ICD10: J20.9] Diagnosis: Wheezing[ICD10: R06.2] Kelsie LARA DelphineEdvin ARELYSTEPHANIE [employer] [facility] CPT-4: 06786 08/29/2015 ([id number]) OFFICE/OUTPATIENT VISIT EST Diagnosis: Type 2 diabetes mellitus with diabetic neuropathy, unspecified[ICD10: E11.40] Diagnosis: Hyperlipidemia, unspecified[ICD10: E78.5] Diagnosis: Essential (primary) hypertension[ICD10: I10] Diagnosis: Encounter for general adult medical examination without abnormal findings[ICD10: Z00.00] Xiomara BETTENCOURT DO [facility] CPT-4: 48527 07/26/2015 OFFICE/OUTPATIENT VISIT EST Diagnosis: Type 2 diabetes mellitus with hyperglycemia[ICD10: E11.65] Diagnosis: Unspecified osteoarthritis, unspecified site[ICD10: M19.90] Diagnosis: Other instability, right knee[ICD10: M25.361] Kelsie BETTENCOURT DO [facility] CPT-4: 21693 07/24/2015 ([id number]) OFFICE/OUTPATIENT VISIT EST Diagnosis: Pain in leg, unspecified[ICD10: M79.606] Diagnosis: Type 2 diabetes mellitus with diabetic neuropathy, unspecified[ICD10: E11.40] Xiomara BETTENCOURT [facility] CPT-4: 83484 05/01/2015 ([id number]) OFFICE/OUTPATIENT VISIT EST Diagnosis: MALAISE AND FATIGUE[ICD9: 780.79] Diagnosis: 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, 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] Diagnosis: CAD[ICD9: 414.00] Diagnosis: ANEMIA NOS[ICD9: 285.9] Xiomara ROSENBAUM [facility] CPT-4: 14273 01/17/2015 ([id number]) OFFICE/OUTPATIENT VISIT EST Diagnosis: Skin lesion[ICD9: 709.9] Xiomara GENAO [facility] CPT-4: 22828 09/29/2014 OFFICE/OUTPATIENT VISIT EST Diagnosis: GASTROENTERITIS[ICD9: 558.9] Diagnosis: GERD[ICD9: 530.81] Kelsie BETTENCOURT DO [facility] CPT-4: 08075 02/18/2014 ([id number]) OFFICE/OUTPATIENT VISIT EST Diagnosis: 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I, UNCONTROLLED[ICD9: 250.02] Xiomara BETTENCOURT DO [facility] CPT-4: 44838 07/29/2013 ([id number]) OFFICE/OUTPATIENT VISIT EST Diagnosis: FLU VACCINE[ICD9: V04.81] Xiomara MAGALLON [facility] CPT-4: 01506 07/22/2013 ([id number]) OFFICE/OUTPATIENT VISIT EST Diagnosis: 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I, UNCONTROLLED[ICD9: 250.02] Diagnosis: HYPERTENSION[ICD9: 401.9] Xiomara MAGALLON [facility] CPT-4: 71163 05/26/2013 ([id number]) OFFICE/OUTPATIENT VISIT EST Diagnosis: MONONEURITIS[ICD9: 355.9] Diagnosis: RESTLESS LEGS SYNDROME[ICD9: 333.94] Diagnosis: HYPERTENSION[ICD9: 401.9] Diagnosis: CAD[ICD9: 414.00] Diagnosis: Weakness[ICD9: 780.79] Xiomara [facility] CPT-4: 59590 04/28/2013 ([id number]) OFFICE/OUTPATIENT VISIT EST Diagnosis: 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[ICD9: 250.01] Diagnosis: MONONEURITIS[ICD9: 355.9] Diagnosis: HYPERLIPIDEMIA NEC/NOS[ICD9: 272.4] Diagnosis: CAD[ICD9: 414.00] [facility]omara [facility]Edvin [facility] CPT-[facility]: 94784 03/12/2013 OFFICE/OUTPATIENT VISIT NEW Diagnosis: CAD[ICD9: 414.00] Diagnosis: HYPERLIPIDEMIA NEC/NOS[ICD9: 272.4] Diagnosis: HYPERTENSION[ICD9: 401.9] Diagnosis: Neuropathy[ICD9: 355.9] Diagnosis: RESTLESS LEGS SYNDROME[ICD9: 333.94] [facility]: 06181 03/11/2013 Plan of Care Planned Activity Notes Codes Status Date Care Plan: US EXAM ABDO BACK WALL COMP renal US L OINC : 90674-1 Pending 12/08/2019 Visit Diagnosis Plan: History of bladder cancer Discus jaswinder: Check CT abdomen/pelvis ICD-9 : V10.51 ICD-10 : Z85.51 12/07/2019 Visit Diagnosis Plan: Esophageal reflux Discussion: Ta kesha omeprazole daily Will try pancreatic enzymes ICD-9 : 530.81 ICD-10 : K21.9 12/07/2019 Appointment: Xiomara Bettencourt [facility]el[facility] [facility] 12/07/2019 Care Plan: CT [...] : R06.09 10/27/2019 Appointment: Xiomara Bettencourt WPtel: [facility] FOLLOW UP 10/27/2019 Patient Education: gabapentin- [employer] Coupon [phone] https://www.Reactful.[employer]/samplemd/resources/getResource/61/[email or web address] Completed 10/27/2019 Visit Diagnosis Plan: DM w/o [...] : J44.9 10/20/2019 Appointment: Xiomara Bettencourt WPtel: [address] [place], [place] [phone] [place] FOLLOW UP 10/20/2019 Patient Education: furosemide- [employer] Coupon [phone] https://www.CREAT/Reactful/resources/getResource/61/[email or web address]-p7 Completed 10/20/2019 Visit Diagnosis Plan: Obstructive sleep [...] : I95.9 10/12/2019 Appointment: Xiomara Bettencourt WPtel: [address] [place], [place] [phone] 10/12/2019 Appointment: Xiomara Bettencourt WPtel: [address] [place], [place] [phone] [place] RESCHEDULED 09/23/2019 Care Plan: COMPREHEN METABOLIC PANEL SERGEI NC : 23367-6 Pending 09/20/2019 Care Plan: LIPID PANEL LOINC : 19392-0 Pending 09/20/2019 Care Plan: A1C HPLC LOINC : 91690-6 Pending 09/20/2019 Care Plan: COMPLETE CBC W/AUTO DIFF WBC LOINC : 66627-3 Pending 09/20/2019 Visit Diagnosis Plan: Upper respiratory infection Disc ussion: discussed that most likely viral. push fluids and rest through the week. patient has left over levaquin at home (5 days worth). instructed patient to start taking if he gets worse later this week and to call us next week if no improvement. ICD-9 : 465.9 ICD-10 : J06.9 06/02/2019 Appointment: Pennie Pizarro [address] [place], [place] [phone] ACUTE ILLNESS 06/02/2019 Visit Diagnosis Plan: Allergic [...] ICD-10 : J30.9 05/13/2019 Appointment: Pennie Pizarro [address] [place] [address] ACUTE ILLNESS 05/13/2019 Appointment: Xiomara Bettencourt WPtel: [address] [facility] CANCELED 04/27/2019 Visit Diagnosis Plan: Pneumonia Discussion: will obtai n records from urgent care. instructed to finish out doxy. no rhonchi or crackles auscultated. symbicort sample given to patient with instructions to use bid. call office later this week with new or worsening symptoms. ICD-9 : 486 ICD-10 : J18.9 04/26/2019 Appointment: Pennie Pizarro [address] [place], [place] [phone] FOLLOW UP 04/26/2019 Visit Diagnosis Plan: Acute [...] : 461.9 ICD-10 : J01.90 02/22/2019 Appointment: Pnenie Pizarro [address] [place], [place] [phone] ACUTE ILLNESS 02/22/2019 Patient Education: prednisone- [employer] Coupon [phone] https://www.CREAT/samplemd/resources/getResource/61/[email or web address]-[email or web address] Completed 02/22/2019 Visit Diagnosis Plan: Cervicalgia Discussion: Check Ce rvical Spine X-ray Will likely need PT ICD-9 : 723.1 ICD-10 : M54.2 11/25/2018 Appointment: Xiomara Bettencourt WPtel: [phone] [facility] ACUTE ILLNESS 11/25/2018 Visit Plan: Saline [...] prn. Tyle... 11/19/2018 Appointment: Xiomara Bettencourt WPtel: [facility] [place] [phone] ACUTE ILLNESS 11/19/2018 Patient Education: baclofen- [employer] Coupon [phone] https://www.Reactful.[employer]/samplemd/resources/getResource/61/[email or web address]-[email or web address] Completed 11/19/2018 Visit Diagnosis Plan: Paroxysmal atrial [...] : I10 07/22/2018 Appointment: Xiomara Bettencourt WPtel: [facility] [place] FOLLOW UP 07/22/2018 Visit Diagnosis [...] Trial of flomax Call in 1 mo [facility] on how doing Follow Up: 4 months ICD-9 : 600.21 ICD-10 : N40.1 04/21/2018 Appointment: Xiomara Bettencourt WPtel: [facility] FOLLOW UP 04/21/2018 Patient Education: Patient Medication [...] ICD-10 : E78.2 01/06/2018 Appointment: Pennie Pizarro [address] [place] [address] MEDICATION REVIEW 01/06/2018 Patient Education: Patient Medication Summary Completed 01/06/2018 Appointment: Xiomara Bettencourt WPtel: [address] [place] [address] NO SHOW 01/05/2018 Appointment: Xiomara Bettencourt WPtel: [address] [place] [address] [place] CANCELED 12/31/2017 Visit Diagnosis Plan: Actinic keratosis Discussion: Cr yotherapy as above but will see derm if lesions do not resolve ICD-9 : 702.0 ICD-10 : L57.0 10/22/2017 Appointment: Xiomara Bettencourt WPtel: [address] [place] [address] ACUTE ILLNESS 10/22/2017 Patient Education: Patient Medication [...] : M79.605 04/22/2017 Appointment: Xiomara Bettencourt WPtel: [address] [place], [place] [address] [place] FOLLOW UP 04/22/2017 Patient Education: Patient Medication Summary Completed 04/22/2017 Patient Education: Patient Medication Summary Completed 04/16/2017 Care Plan: COMPREHEN METABOLIC PANEL SERGEI NC : 44441-5 Pending 04/16/2017 Care Plan: LIPID PANEL LOINC : 06690-9 Pending 04/16/2017 Care Plan: CBC Pending 04/16/2017 Care Plan: A1C HPLC LOINC : 63264-4 Pending 04/16/2017 Referral: Inocencio Good[facility] [facility] [facility] Appointment Confirmed 10/14/2016 Visit Diagnosis Plan: Type 2 diabetes mellitus with hy perglycemia Discussion: Continue toujeo Accuchecks BID Follow Up: 4 months ICD-9 : 250.02 ICD-10 : E11.65 10/10/2016 Visit Diagnosis Plan: Angina pectoris, unspecified Dis cussion: Continue imdur and see cardiology To ER if chest pain returns ICD-9 : 413.9 ICD-10 : I20.9 10/10/2016 Appointment: Xiomara Bettencourt WPtel: [address] [place], [place] [phone] [place] FOLLOW UP 10/10/2016 Patient Education: Patient Medication Summary Completed 10/10/2016 Patient Education: Patient Medication Summary Completed 09/16/2016 Care Plan: COMPREHEN METABOLIC PANEL SERGEI NC : 00342-7 Pending 09/16/2016 Care Plan: ASSAY THYROID STIM HORMONE Pen ding 09/16/2016 Care Plan: ASSAY OF FREE THYROXINE Pendin g 09/16/2016 Care Plan: LIPID PANEL LOINC : 22454-6 Pending 09/16/2016 Care Plan: CBC Pending 09/16/2016 Care Plan: A1C HPLC LOINC : 65046-8 Pending 09/16/2016 Visit Plan: CXR now to further evaluate symptoms Suspect viral since he has been on 2 rounds of antibiotics If chronic lung disease evident, 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 given today with instructions on use Continue oral prednisone, would like to avoid injection if possible considering his DM status and he is stable right now Continue albuterol PRN Will call with CXR results 08/31/2015 Appointment: Shannan Grimes [address] [place] [address] 08/31 confirmed- SP ACUTE ILLNESS 08/31/2015 Patient Education: Patient Medication Summary Completed 08/31/2015 Visit Plan: Albuterol INH via SVN every 4 hours Prednisone 20 mg PO BID Notify for worsening symptoms 08/29/2015 Appointment: Kelsie Grubbs WPtel: [address] [place] [address] ACUTE ILLNESS 08/29/2015 Patient Education: Patient Medication Summary Completed 08/29/2015 Appointment: Xiomara Bettencourt WPtel: [address] [place] [address] LAB 07/26/2015 Patient Education: Patient Medication Summary Completed 07/26/2015 Visit Plan: Return in am for fasting lab s - CBC, CMP, TSH, Free T4, HgbA1C Change Levemir to Toujeo - Continue 35 Units q am - sample given Start physical Therapy for increased quadriceps strengthening and decreased pain in knees, bilaterally. 07/24/2015 Appointment: Kelsie Grubbs WPtel: [address] [place] [address] 01/15 appt confirmed cn FOLLOW UP 07/24/19 16 Appointment: HumeraKelsie Pushpa WPtel: [address] [place] [address] FOLLOW UP 07/24/2015 Patient Education: Patient Medication [...] with insulin 05/01/2015 Appointment: Xiomara Bettencourt WPtel: [address] [place] [address] 04/28 confirmed~sl ACUTE ILLNESS 05/01/2015 Patient Education: Patient Medication Summary Completed 05/01/2015 Patient Education: Patient Medication Summary Completed 01/19/2015 Care Plan: URINALYSIS AUTO W/O SCOPE SERGEI [place] : 27599-0 Pending 01/19/2015 Visit Plan: I have went through his medi cations in past and stopped meds but he adjusts his meds on his own and has restarted some Stop Amaryl Once again discussed not using indomethacin routinely due to taking plavix and aspirin daily and half-way use is dangerous Check CBC, CMP, TSH, free T4, B12 and HbA1C Patient has seen Cardiology recently but no cardiac cath done--had chemical stress test 01/17/2015 Appointment: Xiomara Bettencourt WPtel: [address] [place], [place] [id number] 01/16 vm cn ACUTE ILLNESS 01/17/2015 Patient Education: Patient Medication Summary Completed 01/17/2015 Visit Plan: See Dr. Garvin for removal 09/29/2014 Appointment: Xiomara Bettencourt WPtel: [address] [place] [address] ACUTE ILLNESS 09/29/2014 Referral: Colt Garvin WPtel: [address] Referral Initiated 09/29/2014 Patient Education: Patient Medication Summary Completed 09/29/2014 Visit Plan: Check CBC, CMP, TSH, free T4 , HbA1C, Lipids Accuchecks daily alternating times Patient has been adjusting own meds and has not taken any cholesterol meds for sometime Will check into surgery on right knee at [facility] Check carotid dopplers 08/04/2014 Appointment: Xiomara Bettencourt WPtel: [address] [place] [address] Annual Well Visit 08/04/2014 Patient Education: Patient Medication Summary Completed 08/04/2014 Appointment: Kelsie Grubbs WPtel: [address] [place] [address] ACUTE ILLNESS 02/18/2014 Patient Education: Patient Medication Summary Completed 02/18/2014 Patient Education: [facility] - Saving [employer] - 18+ - Dynamic Portal ID Completed 02/18/2014 Appointment: Xiomara Bettencourt WPtel: [address] [place] [address] LAB 09/08/2013 Visit Plan: Check fasting lab in 1mo Con tinue Lantus and accuchecks at least BID 07/29/2013 Appointment: Xiomara Bettencourt WPtel: [address] [place] [address] FOLLOW UP 07/29/2013 Patient Education: Patient Medication Summary Completed 07/29/2013 Appointment: Xiomara Bettencourt WPtel: [address] [place] [address] INJECTION 07/22/2013 Patient Education: Patient Medication Summary Completed 07/22/2013 Visit Plan: Pt has been self-adjusting m eds Stop metformin and amaryl Use Levemir 25u sc BID and call in 1wk with BS readings 05/26/2013 Appointment: Xiomara Bettencourt WPtel: [address] [place] [address] FOLLOW UP 05/26/2013 Patient Education: Patient Medication Summary Completed 05/26/2013 Visit Plan: DC Metformin Increase Lantus to 30u sc daily Change lisinopril to lisinopril HCT 20/25mg q AM Continue Gabapentin at current dose 04/28/2013 Appointment: Xiomara Bettencourt WPtel: [address] [place], [place] [id number] FOLLOW UP 04/28/2013 Patient Education: Patient Medication Summary Completed 04/28/2013 Appointment: Xiomara Bettencourt WPtel: [address] [place], [place] [phone] US LAB 03/12/2013 Patient Education: Patient Medication Summary Completed 03/12/2013 Visit Plan: Trial of neurontin 400mg q H S Obtain most recent lab results Change levemir to lantus per pt request Pt goes for sleep study tonite 03/11/2013 Appointment: Xiomara Bettencourt WPtel: [phone] [facility] 02/01paperwork mailed 03/10 confirmed with spouse NEW PATIENT 11/2012 Patient Education: Patient Medication Summary Completed 03/11/2013 Instructions Comment . Saline nasal flushes prn. Tylenol/Motr in prn headache. Notify if persists/symptoms worsening. . 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 Check fasting lab [...]
--- OUTSIDE RECORDS SUMMARY | 2020-02-02 21:34 | XMS REPORT | CCD ---
Author Author Sheng Bettencourt D.O. Organization [facility]phineEd[facility] Address [address] [place] [address] Phone Care Team Providers Care Corrective Therapist Name Role Phone PP Unavailable CCM Unavailable Summary Purpose Interface Exchange Insurance Providers Payer name Policy type / Coverage type Covered alliance party ID Effective Begin Date Effective End Date WPS MEDICARE PART B [place] Medicare Part B [id number] 2018 Unknown [facility] Medicare Part B [id number] 2018 Un known Family history Mother Diagnosis Age At Onset Diabetes mellitus Type 2 Unknown Hypercholesterolemia Unknown Father Diagnosis Age At Onset No Family Disease Entered N/A Social History Social History Element Codes Description Effective Dates Marital status Unknown 03/11/2013 Number of children Unknown 4 03/11/2013 Employment Unknown Retired 03/11/[address]: 7799278 Former smoker 03/11/[address]: 607961 Currently drinks alc ohol Socially 03/11/2013 Has [...] Problems Condition Codes Effective Dates Condition Status Esophageal reflux ICD-9: 530.81 ICD-10: K21.9 12/07/2019 [...] Fill Instructions Flomax 0.4 mg capsule RxNorm: 695404 TAKE TWO CAPSULES BY MOUTH EVERY EVENING 11/11/2019 No Stop Date Active glimepiride 2 mg tablet RxNorm: 135016 1 Tablet(s) Oral QD 10/27/19 20 No Stop Date Active gabapentin 400 mg capsule RxNorm: 772294 1 Capsule(s) Oral QPM 10/0604/24/2020 Active potassium chloride ER 20 mEq tablet,extended release RxNorm: 817268 1 Tablet(s) Oral QD to take with lasix 10/20/2019 10/26/2019 Inactive furosemide 40 mg tablet RxNorm: 183385 1 Tablet(s) Oral QAM for swelling 10/20/2019 10/26/2019 Inactive albuterol sulfate HFA 90 mcg/actuation aerosol inhaler RxNor m: 2860448 1-2 Puff(s) Inhalation as needed 10/12/2019 No Stop Date Active Zyrtec 10 mg tablet RxNorm: 6470582 1 Tablet(s) Oral QAM 10/12/2019 No Stop Date Active aspirin 81 mg tablet,delayed release RxNorm: 338683 1 Tablet(s) Oral QD 10/12/2019 No Stop Date Active Symbicort 160 mcg-4.5 mcg/actuation HFA aerosol inhaler RxNo rm: 2845457 2 Puff(s) Inhalation QD 10/12/2019 No Stop Date Active lisinopril 20 mg tablet RxNorm: 268367 1 Tablet(s) Oral QD 10/12/1901/10/2020 Active simvastatin 20 mg tablet RxNorm: 981996 1 Tablet(s) Ora l QD Needs updated fasting labs 09/20/2019 12/19/2019 Active Needs updated fa sting labs before 90 day refill Flomax 0.4 mg capsule RxNorm: 808385 TAKE TWO CAPSULES BY MOUTH EVERY EVENING 08/03/2019 11/10/2019 Inactive gabapentin 400 mg capsule RxNorm: 720880 TAKE ONE CAPSU LE BY MOUTH EVERY EVENING 08/02/2019 10/26/2019 Inactive simvastatin 20 mg tablet RxNorm: 225271 1 Tablet(s) Ora l QD Needs updated fasting labs 07/21/2019 08/19/2019 Inactive Needs updated fa sting labs before 90 day refill simvastatin 20 mg tablet RxNorm: 986866 1 Tablet(s) Ora l QD Needs updated fasting labs 06/23/2019 07/20/2019 Inactive Needs updated fa sting labs before 90 day refill Flomax 0.4 mg capsule RxNorm: 896329 1 Capsule(s) Oral QD 05/13/2019 10/19/2019 Inactive Flomax 0.4 mg capsule RxNorm: 921014 TAKE TWO CAPSULES BY MOUTH EVERY EVENING 03/19/2019 05/12/2019 Inactive Augmentin 500 mg-125 mg tablet RxNorm: 605769 1 Tablet(s) PO BID 03/03/2019 Inactive baclofen 10 mg tablet RxNorm: 365455 TAKE ONE TABLET BY MOUTH EVERY NIGHT AT BEDTIME FOR PAIN OR SPASMS 01/14/2019 05/12/2019 Inactive Flomax 0.4 mg capsule RxNorm: 057232 TAKE TWO CAPSULES BY MOUTH EVERY EVENING 01/12/2019 03/18/2019 Inactive gabapentin 400 mg capsule RxNorm: 722099 1 Capsule(s) PO QPM 201806/27/2019 Inactive baclofen 10 mg tablet RxNorm: 152806 1 Tablet(s) PO QHS for my n/spasm 12/15/2018 01/13/2019 Inactive simvastatin 20 mg tablet RxNorm: 828037 TAKE ONE TABLET BY MOUT H DAILY 12/11/2018 06/22/2019 Inactive OneTouch Ultra Blue Test Strip RxNorm: Use 1 rigoberto t strip three times daily to check blood sugar (Dx:E11.65) 12/07/2018 No Stop Date Active gabapentin 400 mg capsule RxNorm: 958801 TAKE ONE CAPSU LE BY MOUTH EVERY EVENING 12/04/2018 12/29/2018 Inactive baclofen 10 mg tablet RxNorm: 452054 1 Tablet(s) PO QHS for my n/spasm 11/19/2018 12/15/2018 Inactive Flomax 0.4 mg capsule RxNorm: 349772 2 Capsule(s) PO QPM 09/15/2018 0 12/13/2018 Inactive WOULD LIKE 90DS!!! gabapentin 400 mg capsule RxNorm: 418984 TAKE ONE CAPSU LE BY MOUTH EVERY EVENING 07/21/2018 10/18/2018 Inactive simvastatin 20 mg tablet RxNorm: 888601 1 Tablet(s) PO QD 06/15/2018 12/10/2018 Inactive Flomax 0.4 mg capsule RxNorm: 481299 TAKE TWO CAPSULES BY MOUTH EVERY EVENING 06/02/2018 09/15/2018 Inactive WOULD LIKE 90DS!!! Flomax 0.4 mg capsule RxNorm: 512437 2 Capsule(s) PO QPM 04/21/2018 1 07/20/2017 Inactive simvastatin 20 mg tablet RxNorm: 284660 1 Tablet(s) PO QD Take 1 tablet by mouth daily. Patient due for labwork before further refill. 04/06/20182017 Inactive simvastatin 20 mg tablet RxNorm: 153846 Tablet(s) TAKE ONE TABLET BY MOUTH DAILY 03/25/2018 06/15/2018 Inactive simvastatin 20 mg tablet RxNorm: 773788 Tablet(s) TAKE ONE TABLET BY MOUTH DAILY due for appt 12/29/2017 03/25/2018 Inactive simvastatin 20 mg tablet RxNorm: 806039 TAKE ONE TABLET BY MOUT H DAILY 09/03/2017 12/29/2017 Inactive simvastatin 20 mg tablet RxNorm: 931120 1 Tablet(s) PO QD 10/22/2016 11/18/2018 Inactive isosorbide mononitrate ER 60 mg tablet,extended release 24 h r RxNorm: 465433 1 Tablet(s) PO QD 10/22/2016 04/21/2017 Inactive isosorbide mononitrate ER 60 mg tablet,extended release 24 h r RxNorm: 307039 1 Tablet(s) PO QD 10/10/2016 10/21/2016 Inactive simvastatin 20 mg tablet RxNorm: 703625 1 Tablet(s) PO QD 10/10/2016 10/21/2016 Inactive gabapentin 400 mg capsule RxNorm: 305932 1 Capsule(s) PO QPM 201609/20/2016 Inactive Toujeo SoloStar 300 unit/mL (1.5 mL) subcutaneous insulin pe n RxNorm: 8879641 35 Unit(s) SQ QAM 07/23/2016 07/22/2016 Inactive Toujeo SoloStar 300 unit/mL (1.5 mL) subcutaneous insulin pe n RxNorm: 7732061 40 Unit(s) SQ QAM 09/01/2015 No Stop Date Active Symbicort 160 mcg-4.5 mcg/actuation HFA aerosol inhaler RxNo rm: 4357057 2 Puff(s) INH BID 08/31/2015 09/09/2015 Inactive prednisone 20 mg tablet RxNorm: 351595 1 Tablet(s) PO BID 08/29/2015 09/02/2015 Inactive albuterol sulfate 2.5 mg/3 mL (0.083 %) solution for n ebulization RxNorm: 665062 1 Unit(s) INH Q4H as needed 08/29/2015 10/09/2016 Inactive levothyroxine 75 mcg tablet RxNorm: 186270 1 Tablet(s) PO QD 201507/27/2015 Inactive levothyroxine 75 mcg tablet RxNorm: 936816 1 Tablet(s) PO QD 201511/18/2018 Inactive levothyroxine 75 mcg tablet RxNorm: 382202 1 Tablet(s) PO QD 201507/27/2015 Inactive lisinopril 20 mg-hydrochlorothiazide 25 mg tablet RxNorm: 19 7887 TAKE ONE TABLET BY MOUTH EVERY MORNING. REPLACES PLAIN LISINOPRIL 03/06/2015 04/21/2017 Inactive lisinopril 20 mg-hydrochlorothiazide 25 mg tablet RxNorm: 19 7887 TAKE ONE TABLET BY MOUTH EVERY MORNING. REPLACES PLAIN LISINOPRIL 09/08/2014 03/05/2015 Inactive allopurinol 100 mg tablet RxNorm: 256022 1 Tablet(s) PO BID 015 10/09/2016 Inactive [SAVINGS FOR NON-COVERED YULIA GS -- BIN:[id number], PCN: [id number], Group: [id number], ID# [id number], Questions: . THIS IS NOT INSURANCE.] levothyroxine 50 mcg tablet RxNorm: 480023 1 Tablet(s) PO QD 201407/26/2015 Inactive [AttnRPh: Saving apply/adjud icate RxGRP:SG20 RxBIN:[id number] RxPCN:HT ID#:[id number]] Zegerid 40 mg-1.1 gram capsule RxNorm: 222440 1 Capsule(s) PO QD 03/03/2014 Inactive [AttnRPh: Saving apply/adjud icate RxGRP:SG20 RxBIN:[id number] RxPCN:HT ID#:[id number]] ondansetron 8 mg disintegrating tablet RxNorm: 586953 1 Tablet(s) PO Q8H as needed for [...] 07/28/2013 Inactive gabapentin 400 mg capsule RxNorm: 659777 1 Capsule(s) PO QPM 201207/28/2013 Inactive gabapentin 400 mg capsule RxNorm: 986292 1 Capsule(s) PO QPM 201206/26/2013 Inactive lisinopril 20 mg-hydrochlorothiazide 25 mg tablet RxNorm: 82 3971 1 Tablet(s) PO QAM replaces plain lisinopril 04/28/2013 07/29/2013 Inactive gabapentin 400 mg capsule RxNorm: 858373 1 Capsule(s) PO QPM 201204/27/2013 Inactive gabapentin 400 mg capsule RxNorm: 987601 1 Capsule(s) PO QPM 201203/10/2013 Inactive gabapentin 400 mg capsule RxNorm: 320617 1 Capsule(s) PO QPM 201203/14/2013 Inactive Lantus Solostar 100 unit/mL (3 mL) Sub-Q Insulin Pen RxNorm: 373356 20 Unit(s) SQ QPM 03/11/2013 03/15/2013 Inactive Toujeo SoloStar 300 unit/mL (1.5 mL) subcutaneous insulin pe n RxNorm: 9785180 35 Unit(s) SQ QAM No Start Date Active omeprazole 20 mg capsule,delayed release RxNorm: 778222 1 Capsu le(s) PO QD No Start Date Active isosorbide mononitrate ER 60 mg tablet,extended release 24 h r RxNorm: 295394 1 Tablet(s) PO QD No Start Date Active Eliquis 5 mg tablet RxNorm: 4166927 1 Tablet(s) PO BID No Start Date Active metformin 500 mg tablet RxNorm: 111789 1 Tablet(s) PO BID No Start Da te Active levothyroxine 50 mcg tablet RxNorm: 646301 1 Tablet(s) PO QD No Start Date Active Norvasc 10 mg tablet RxNorm: 817664 1 Tablet(s) PO QHS No Start Date Active Toujeo SoloStar 300 unit/mL (1.5 mL) subcutaneous insulin pe n RxNorm: 8099885 30 Unit(s) SQ QAM No Start Date Active glimepiride 4 mg tablet RxNorm: 194754 1 Tablet(s) PO QHS No Start Date 07/26/2015 Inactive allopurinol 100 mg tablet RxNorm: 782545 1 Tablet(s) PO BID No Star t Date 08/10/2014 Inactive Lantus Solostar 100 unit/mL (3 mL) subcutaneous insulin pen RxNorm: 899643 30 Unit(s) SQ QD No Start Date 08/03/2014 Inactive Levemir FlexTouch 100 unit/mL (3 mL) subcutaneous insulin pe n RxNorm: 487486 25 Unit(s) SQ QAM No Start Date 07/23/2015 Inactive Lantus 100 unit/mL Sub-Q RxNorm: 366047 30 Unit(s) SQ QHS No Start Date 05/25/2013 Inactive Lantus Solostar 100 unit/mL (3 mL) Sub-Q Insulin Pen RxNorm: 530076 20 Unit(s) SQ QPM No Start Date 03/10/2013 Inactive OneTouch Ultra Blue Test Strip RxNorm: Use 1 rigoberto t strip three times daily to check blood sugar (Dx:E11.65) No Start Date 12/06/2018 Inactive Levemir FlexTouch 100 unit/mL (3 mL) subcutaneous insulin pe n RxNorm: 258322 30- 35 Unit(s) SQ QAM No Start Date 07/23/2015 Inactive Levemir Flexpen 100 unit/mL (3 mL) solution subcutaneo us insulin pen RxNorm: 547704 20-25 Unit(s) SQ QD No Start Date 07/28/2013 Inactive lisinopril 20 mg tablet RxNorm: 414524 1 Tablet(s) PO QD No Start D ate 10/11/2019 Inactive indomethacin ER 75 mg capsule,extended release RxNorm: 70172 2 1 Capsule(s) PO QAM No Start Date 04/27/2013 Inactive indomethacin ER 75 mg capsule,extended release RxNorm: 35863 2 1 Capsule(s) PO QD No Start Date 01/16/2015 Inactive Chlortab-4 oral RxNorm: 978859 oral No Start Date 10/11/2019 Inac tive Vitamin D3 5,000 unit tablet RxNorm: 994267 1 Tablet(s) PO QD No St art Date 08/03/2014 Inactive Levemir Flexpen 100 unit/mL (3 mL) solution subcutaneo us insulin Pen RxNorm: 571007 20 Unit(s) SQ QHS No Start Date 03/10/2013 Inactive Vytorin 10 mg-40 mg tablet RxNorm: 8983825 1/2 Tablet(s) PO QD No S tart Date 04/20/2018 Inactive oxymetazoline-menthol 0.05 % nasal spray RxNorm: 3484276 [place] COTY No Start Date 10/11/2019 Inactive Patient states he ta kes every 10 hours Tamia SoloStar 300 unit/mL (1.5 mL) subcutaneous insulin pe n RxNorm: 7250671 35 Unit(s) SQ QAM No Start Date 07/22/2016 Inactive Lantus Solostar 100 unit/mL (3 mL) subcutaneous insulin pen RxNorm: 366034 20 Unit(s) SQ QD No Start Date 08/03/2014 Inactive aspirin 81 mg tablet RxNorm: 401351 1 Tablet(s) PO QD No Start Date 0 08/03/2014 Inactive metformin 500 mg tablet RxNorm: 484763 1 Tablet(s) PO BID No Start Date 07/28/2013 Inactive glimepiride 4 mg tablet RxNorm: 590714 1 Tablet(s) PO BID No Start Date 01/16/2015 Inactive glimepiride 4 mg tablet RxNorm: 668923 1 Tablet(s) PO QD No Start D ate 08/03/2014 Inactive levothyroxine 25 mcg tablet RxNorm: 277194 1 Tablet(s) PO QD No Sta rt Date 08/10/2014 Inactive doxycycline oral RxNorm: 70842 oral No Start Date 05/12/2019 Inac tive aspirin 81 mg tablet RxNorm: 033232 1 Tablet(s) PO QD No Start Date 0 07/21/2018 Inactive isosorbide mononitrate ER 60 mg tablet,extended release 24 h r RxNorm: 008200 1 Tablet(s) PO BID No Start Date 01/16/2015 Inactive metformin 500 mg tablet RxNorm: 098990 1 Tablet(s) PO BID No Start Date 04/27/2013 Inactive Plavix 75 mg tablet RxNorm: 836831 1 Tablet(s) PO QD No Start Date Inactive glimepiride 4 mg tablet RxNorm: 818690 1 Tablet(s) PO QPM No Start Date 02/21/2019 Inactive Vytorin 10-40 10 mg-40 mg tablet RxNorm: 2425984 1 Tablet(s) PO QHS No Start Date 08/03/2014 Inactive indomethacin 50 mg capsule RxNorm: 507827 1 Capsule(s) PO QHS No St art Date 01/16/2015 Inactive glimepiride 4 mg tablet RxNorm: 245516 1 Tablet(s) PO BID No Start Date 07/28/2013 Inactive Levemir FlexTouch 100 unit/mL (3 mL) subcutaneous insulin pe n RxNorm: 668145 20 Unit(s) SQ QD No Start Date 04/30/2015 Inactive lisinopril 20 mg tablet RxNorm: 925138 1 Tablet(s) PO BID No Start Date 04/27/2013 Inactive Lantus Solostar SubQ RxNorm: Subcutaneous No Start Date 03/15/2013 I nactive Zantac 150 mg tablet RxNorm: 849622 1 Tablet(s) PO QHS No Start Date 10/11/2019 Inactive allopurinol 300 mg tablet RxNorm: 674018 1 Tablet(s) PO QD No Start Date 08/03/2014 Inactive Fish Oil 1,000 mg capsule RxNorm: 1 Capsule(s) PO QD No Start Date 02/21/2019 Inactive indomethacin 50 mg capsule RxNorm: 121122 1 Capsule(s) PO BID No St art Date 04/20/2018 Inactive levothyroxine 50 mcg tablet RxNorm: 963078 1 Tablet(s) PO QD No rt Date 08/10/2014 Inactive glimepiride 4 mg tablet RxNorm: 526430 1 Tablet(s) PO BID No Start Date 03/15/2013 Inactive indomethacin 50 mg capsule RxNorm: 727079 1 Capsule(s) PO QHS No art Date 04/27/2013 Inactive Medication Administered No Medication Administered data Immunizations Vaccine Codes Date Status Influenza CVX: 135 04/21/2018 Complete Influenza CVX: 135 04/22/2017 Complete Results Observation Observation Code Item Item Code Result Date S ervice Location [facility] 33112 Cholesterol 209 mg/dL 09/17/2016 Unkno wn [facility] 44395 Triglyceride 111 mg/dL 09/17/2016 Unkn own [facility] 17567 HDL CHOLESTEROL 50 mg/dL 09/17/2016 U nknown [facility] 63306 Chol/HDL Ratio 4.18 ratio 09/17/2016 U nknown [facility] 10178 NON-HDL Chol 159 mg/dL 09/17/2016 Unkn own [facility] 06033 LDL Cholesterol 137 mg/dL 09/17/2016 U nknown MEAN GLUC 0452126 Calc Mean Gluc 151 mg/dL 09/17/2016 Unkn own COMPREHENSIVE METABOLIC 13234 AST 23 U/L 2016 Unknown COMPREHENSIVE METABOLIC 05997 ALT 19 U/L 2016 Unknown COMPREHENS[facility] MET[facility]OLIC 06046 BUN 15 mg/dL 2016 Unknown [facility]ENS[facility] 24101 ALBUMIN 4.3 g/dL 2016 Unknown COMPREHENSIVE METABOLIC 78356 CHLORIDE 103 mmol/L 09/17 Unknown COMPREHENSIVE METABOLIC 03171 Bili Total 0.6 mg/dL 09/17 Unknown COMPREHENSIVE METABOLIC 50110 ALK PHOS 60 U/L 2016 Unknown COMPREHENSIVE METABOLIC 01235 SODIUM 140 mmol/L 09/17 Unknown COMPREHENSIVE METABOLIC 23867 CREATININE 1.03 mg/dL 09/04 Unknown COMPREHENSIVE METABOLIC 07957 CALCIUM 9.5 mg/dL 2016 Unknown COMPREHENSIVE METABOLIC 78355 POTASSIUM 3.9 mmol/L 09/17 Unknown COMPREHENSIVE METABOLIC 63631 Total Protein 6.9 g/dL Unknown COMPREHENSIVE METABOLIC 22945 Glucose 94 mg/dL 2016 Unknown COMPREHENSIVE METABOLIC 63462 Bicarbonate 28 mmol/L 09/04 Unknown COMPREHENSIVE METABOLIC 59599 AGAP 9 mmol/L 2016 Unknown GFR CALC 6478329 GFR Non Afr Amr >60 mL/min 09/17/2016 Un known GFR CALC 2930350 GFR Afr Amr >60 mL/min 09/17/2016 Unknow n THYROID STIMULATING HORMONE 29326 TSH 4.260 uIU/mL 09/17/2016 Unknown GLYCOSYLATED HEMOGLOBIN TEST 83041 Hgb A1c 06687-1 6.9 % 0 09/17/2016 Unknown FREE T4 80283 T4 Free 1.02 ng/dL 09/17/2016 Unknown COMPLETE BLOOD COUNT [id number] WBC 8.6 10e9/L 07/26/19 16 Unknown COMPLETE BLOOD COUNT [id number] RBC 4.86 10e12/L 2015 Unknown COMPLETE BLOOD COUNT 0944969 HGB 14.6 g/dL 6 Unknown COMPLETE BLOOD COUNT 2833919 HCT DET 43.1 % 6 Unknown COMPLETE BLOOD COUNT [id number] MCV 88.7 fL 6 Unknown COMPLETE BLOOD COUNT 8742235 MCH 30.0 pg 6 Unknown COMPLETE BLOOD COUNT 3363023 MCHC 33.9 g/dL 6 Unknown COMPLETE BLOOD COUNT [id number] PLT 267 10e9/L 07/26/19 16 Unknown COMPLETE BLOOD COUNT 0023084 MPV 11.5 fL 6 Unknown COMPLETE BLOOD COUNT 1874756 SAM % 64.8 % 6 Unknown COMPLETE BLOOD COUNT 2287534 LY % 16.8 % 6 Unknown COMPLETE BLOOD COUNT 4275828 MON % 12.5 % 6 Unknown COMPLETE BLOOD COUNT [id number] EOS % 5.6 % 6 Unknown COMPLETE BLOOD COUNT [id number] BASO % 0.3 % 6 Unknown COMPLETE BLOOD COUNT 1583133 RDW 13.4 % 6 Unknown COMPLETE BLOOD COUNT [id number] ABS SAM 5.57 10e9/L 016 Unknown COMPLETE BLOOD COUNT [id number] ABS LYMPH 1.44 10e9/L 016 Unknown COMPLETE BLOOD COUNT [id number] ABS MONO 1.08 10e9/L 016 Unknown COMPLETE BLOOD COUNT [id number] ABS EOS 0.48 10e9/L 016 Unknown COMPLETE BLOOD COUNT [id number] ABS BASO 0.03 10e9/L 016 Unknown COMPLETE BLOOD COUNT 1945917 RDW-SD 42.9 fL 6 Unknown PSA EQUIMOLAR MATT 16067 PSA EQ 0.78 NG/ML 6 Unknown THYROID STIMULATING HORMONE 52936 TSH 5.292 uIU/ML 07/26/2015 Unknown GLYCOSYLATED HEMOGLOBIN TEST 31571 A1C HPLC 87759-3 7.0 % 0 07/26/2015 Unknown GFR CALC 5748975 GFR AA >60 ML/MIN 07/26/2015 Unknown GFR CALC 2330493 GFR NON-AA >60 ML/MIN 07/26/2015 Unknown [facility] 07440 HDL TEST 64 MG/DL 07/26/2015 Unknown [facility] 99687 TRIG 58 MG/DL 07/26/2015 Unknown [facility] 78475 TEST LDL 49 MG/DL 07/26/2015 Unknown [facility] 64794 CHOL 125 MG/DL 07/26/2015 Unknown [facility] 87142 RCHOL/HDL 1.95 RATIO 07/26/2015 Unknow n [facility] 48463 NON-HDL CH 61 MG/DL 07/26/2015 Unknow n COMPREHENSIVE METABOLIC 21152 AST 25 U/L 2015 Unknown COMPREHENSIVE METABOLIC 86227 ALT 23 IU/L 2015 Unknown COMPREHENSIVE METABOLIC 05966 BUN 18 MG/DL 2015 Unknown COMPREHENSIVE METABOLIC 18391 ALBUMIN 4.6 GM/DL 2015 Unknown COMPREHENSIVE METABOLIC 71887 CHLORIDE 100 MMOL/L 07/26 Unknown COMPREHENSIVE METABOLIC 06115 BILI TOT 0.5 MG/DL 2015 Unknown COMPREHENSIVE METABOLIC 29156 ALK PHOS 49 U/L 2015 Unknown COMPREHENSIVE METABOLIC 86794 SODIUM 137 MMOL/L 07/26 Unknown COMPREHENSIVE METABOLIC 23307 CREATININE 1.06 MG/DL 07/08 Unknown COMPREHENSIVE METABOLIC 14035 CALCIUM 9.5 MG/DL 2015 Unknown COMPREHENSIVE METABOLIC 21339 POTASSIUM 4.5 MMOL/L 07/26 Unknown COMPREHENSIVE METABOLIC 22848 PROT TOT 6.5 GM/DL 2015 Unknown COMPREHENSIVE METABOLIC 47650 Glucose 109 MG/DL 2015 Unknown COMPREHENSIVE METABOLIC 10371 BICARB 29 MMOL/L 2015 Unknown COMPREHENSIVE METABOLIC 71957 ANION GAP 8 MEQ/L 2015 Unknown FREE T4 55044 FREE T4 1.11 NG/DL 07/26/2015 Unknown CULTURE & SENSITIVITY 72094 PROTEIN UR NEG 015 Unknown [facility] SENSITIVITY 59356 HEMGLBN UR TR 015 Unknown [facility] & SENSITIVITY 15494 GLUCOSE UR NEG 015 Unknown [facility]URE & SENSITIVITY 26856 KETONES UR NEG 015 Unknown CULTURE & SENSITIVITY 38349 PH U 6.5 01/25/20 15 Unknown CULTURE & SENSITIVITY 70224 SP GR U 1.013 01/25/20 15 Unknown CULTURE & SENSITIVITY 40802 BILRUBN UR NEG 015 Unknown CULTURE & SENSITIVITY 72820 LEUKO UR NEG 01/25/20 15 Unknown CULTURE & SENSITIVITY 56951 NITRITE UR NEG 015 Unknown MICR CUL? [id number] SP TO JOHANA? NO 01/24/2015 Unknown MICR CUL? [id number] APPEAR UR NORMAL 01/24/2015 Unknown MICR CUL? [id number] RBC/uL 2.2 01/24/2015 Unknown MICR CUL? 2241408 WBC/uL 2.8 01/24/2015 Unknown MICR CUL? 9517423 SQ EPI/uL 1.0 01/24/2015 Unknown MICR CUL? 2235006 HYALCST/uL 0.25 01/24/2015 Unknown MICR CUL? 1411967 WBC /HPF 1 01/24/2015 Unknown MICR CUL? 3048547 RBC /HPF 0 01/24/2015 Unknown GLYCOSYLATED HEMOGLOBIN TEST 86105 A1C HPLC 36507-1 6.6 % 0 01/17/2015 Unknown COMPLETE BLOOD COUNT 2295172 WBC 10.1 10e9/L 015 Unknown COMPLETE BLOOD COUNT [id number] RBC 4.60 10e12/L 2014 Unknown COMPLETE BLOOD COUNT 5491980 HGB 14.0 g/dL 5 Unknown COMPLETE BLOOD COUNT [id number] HCT DET 39.9 % 5 Unknown COMPLETE BLOOD COUNT 4205610 MCV 86.7 fL 5 Unknown COMPLETE BLOOD COUNT [id number] MCH 30.4 pg 5 Unknown COMPLETE BLOOD COUNT 0047366 MCHC 35.1 g/dL 5 Unknown COMPLETE BLOOD COUNT 6435750 PLT 252 10e9/L 01/18/20 15 Unknown COMPLETE BLOOD COUNT [id number] MPV 11.4 fL 5 Unknown COMPLETE BLOOD COUNT 0799084 SAM % 72.9 % 5 Unknown COMPLETE BLOOD COUNT [id number] LY % 13.6 % 5 Unknown COMPLETE BLOOD COUNT [id number] MON % 10.2 % 5 Unknown COMPLETE BLOOD COUNT 1232496 EOS % 3.1 % 5 Unknown COMPLETE BLOOD COUNT 2003427 BASO % 0.2 % 5 Unknown COMPLETE BLOOD COUNT 2633319 RDW 13.6 % 5 Unknown COMPLETE BLOOD COUNT [id number] ABS SAM 7.36 10e9/L 015 Unknown COMPLETE BLOOD COUNT 8554537 ABS LYMPH 1.37 10e9/L 015 Unknown COMPLETE BLOOD COUNT [id number] ABS MONO 1.03 10e9/L 015 Unknown COMPLETE BLOOD COUNT 0664556 ABS EOS 0.31 10e9/L 015 Unknown COMPLETE BLOOD COUNT 9803124 ABS BASO 0.02 10e9/L 015 Unknown COMPLETE BLOOD COUNT [id number] RDW-SD 42.4 fL 01/17/201 5 Unknown GFR CALC 9299890 GFR AA 51.0L ML/MIN 01/17/2015 Unknow n GFR CALC 2351562 GFR NON-AA 42.0L ML/MIN 01/17/2015 Unkno wn FREE T4 56538 FREE T4 1.30 NG/DL 01/17/2015 Unknown THYROID STIMULATING HORMONE 66386 TSH 4.029 uIU/ML 01/17/2015 Unknown COMPREHENSIVE METABOLIC 16637 AST 28 U/L 2014 Unknown COMPREHENSIVE METABOLIC 82657 ALT 25 IU/L 2014 Unknown COMPREHENSIVE METABOLIC 06306 BUN 21 MG/DL 2014 Unknown COMPREHENSIVE METABOLIC 83990 ALBUMIN 4.7 GM/DL 2014 Unknown COMPREHENSIVE METABOLIC 57396 CHLORIDE 102 MMOL/L 01/17 Unknown COMPREHENSIVE METABOLIC 06345 BILI TOT 0.6 MG/DL 2014 Unknown COMPREHENSIVE METABOLIC 04664 ALK PHOS 44 U/L 2014 Unknown COMPREHENSIVE METABOLIC 07295 SODIUM 137 MMOL/L 01/17 Unknown COMPREHENSIVE METABOLIC 93019 CREATININE 1.62 MG/DL 01/04 Unknown COMPREHENSIVE METABOLIC 60651 CALCIUM 9.7 MG/DL 2014 Unknown COMPREHENSIVE METABOLIC 80140 POTASSIUM 4.5 MMOL/L 01/17 Unknown COMPREHENSIVE METABOLIC 15637 PROT TOT 6.5 GM/DL 2014 Unknown COMPREHENSIVE METABOLIC 55733 Glucose 136 MG/DL 2014 Unknown COMPREHENSIVE METABOLIC 35416 BICARB 24 MMOL/L 2014 Unknown COMPREHENSIVE METABOLIC 05470 ANION GAP 11 MEQ/L 2014 Unknown VITAMIN B 12 52638 VIT B 12 482 PG/ML 01/17/2015 Unknow n URIC ACID 21950 URIC ACID 8.5 MG/DL 08/09/2014 Unknown COMPREHENSIVE METABOLIC 53522 AST 27 U/L 2014 Unknown COMPREHENSIVE METABOLIC 11250 ALT 26 IU/L 2014 Unknown COMPREHENSIVE METABOLIC 17126 BUN 17 MG/DL 2014 Unknown COMPREHENSIVE METABOLIC 18454 ALBUMIN 5.0 GM/DL 2014 Unknown COMPREHENSIVE METABOLIC 03844 CHLORIDE 101 MMOL/L 08/09 Unknown COMPREHENSIVE METABOLIC 50487 BILI TOT 0.7 MG/DL 2014 Unknown COMPREHENSIVE METABOLIC 84833 ALK PHOS 53 U/L 2014 Unknown COMPREHENSIVE METABOLIC 72448 SODIUM 136 MMOL/L 08/09 Unknown COMPREHENSIVE METABOLIC 35815 CREATININE 1.14 MG/DL 09/2014 Unknown COMPREHENSIVE METABOLIC 61012 CALCIUM 9.8 MG/DL 2014 Unknown COMPREHENSIVE METABOLIC 27652 POTASSIUM 4.1 MMOL/L 08/09 Unknown COMPREHENSIVE METABOLIC 87720 PROT TOT 7.5 GM/DL 2014 Unknown COMPREHENSIVE METABOLIC 74584 Glucose 110 MG/DL 2014 Unknown COMPREHENSIVE METABOLIC 50646 BICARB 30 MMOL/L 2014 Unknown COMPREHENSIVE METABOLIC 41000 ANION GAP 5 MEQ/L 2014 Unknown GFR CALC 4511141 GFR AA >60 ML/MIN 08/09/2014 Unknown GFR CALC 5802525 GFR NON-AA >60 ML/MIN 08/09/2014 Unknown FREE T4 93805 FREE T4 1.14 NG/DL 08/09/2014 Unknown GLYCOSYLATED HEMOGLOBIN TEST 55171 A1C HPLC 88937-2 6.8 % 0 08/09/2014 Unknown COMPLETE BLOOD COUNT [id number] WBC 5.9 10e9/L 08/09/19 15 Unknown COMPLETE BLOOD COUNT [id number] RBC 5.04 10e12/L 2014 Unknown COMPLETE BLOOD COUNT [id number] HGB 15.2 g/dL 5 Unknown COMPLETE BLOOD COUNT [id number] HCT DET 44.3 % 5 Unknown COMPLETE BLOOD COUNT [id number] MCV 87.9 fL 5 Unknown COMPLETE BLOOD COUNT [id number] MCH 30.2 pg 5 Unknown COMPLETE BLOOD COUNT [id number] MCHC 34.3 g/dL 5 Unknown COMPLETE BLOOD COUNT [id number] PLT 262 10e9/L 08/09/19 15 Unknown COMPLETE BLOOD COUNT [id number] MPV 10.9 fL 5 Unknown COMPLETE BLOOD COUNT [id number] SAM % 58.7 % 5 Unknown COMPLETE BLOOD COUNT [id number] LY % 21.5 % 5 Unknown COMPLETE BLOOD COUNT [id number] MON % 14.0 % 5 Unknown COMPLETE BLOOD COUNT [id number] EOS % 5.3 % 5 Unknown COMPLETE BLOOD COUNT [id number] BASO % 0.5 % 5 Unknown COMPLETE BLOOD COUNT [id number] RDW 13.1 % 5 Unknown COMPLETE BLOOD COUNT [id number] ABS SAM 3.46 10e9/L 015 Unknown COMPLETE BLOOD COUNT [id number] ABS LYMPH 1.27 10e9/L 015 Unknown COMPLETE BLOOD COUNT [id number] ABS MONO 0.83 10e9/L 015 Unknown COMPLETE BLOOD COUNT [id number] ABS EOS 0.31 10e9/L 015 Unknown COMPLETE BLOOD COUNT [id number] ABS BASO 0.03 10e9/L 015 Unknown COMPLETE BLOOD COUNT [id number] RDW-SD 41.2 fL 5 Unknown THYROID STIMULATING HORMONE 69298 TSH 5.395 uIU/ML 08/09/2014 Unknown LIPID GROUP 94618 HDL TEST 52 MG/DL 08/09/2014 Unknown LIPID GROUP 46913 TRIG 113 MG/DL 08/09/2014 Unknown LIPID GROUP 04914 TEST LDL 158 MG/DL 08/09/2014 Unknown LIPID GROUP 35011 CHOL 233 MG/DL 08/09/2014 Unknown LIPID GROUP 55458 RCHOL/HDL 4.48 RATIO 08/09/2014 Unknow n LIPID GROUP 29731 NON-HDL CH 181 MG/DL 08/09/2014 Unknow n COMPLETE BLOOD COUNT [id number] WBC 6.8 10e9/L 09/09/19 14 Unknown COMPLETE BLOOD COUNT [id number] RBC 5.18 10e12/L 2013 Unknown COMPLETE BLOOD COUNT [id number] HGB 15.2 g/dL 4 Unknown COMPLETE BLOOD COUNT [id number] HCT DET 44.7 % 4 Unknown COMPLETE BLOOD COUNT [id number] MCV 86.3 fL 4 Unknown COMPLETE BLOOD COUNT [id number] MCH 29.3 pg 4 Unknown COMPLETE BLOOD COUNT 1332224 MCHC 34.0 g/dL 4 Unknown COMPLETE BLOOD COUNT [id number] PLT 236 10e9/L 09/09/19 14 Unknown COMPLETE BLOOD COUNT [id number] MPV 11.0 fL 4 Unknown COMPLETE BLOOD COUNT [id number] SAM % 58.2 % 4 Unknown COMPLETE BLOOD COUNT [id number] LY % 21.9 % 4 Unknown COMPLETE BLOOD COUNT [id number] MON % 12.5 % 4 Unknown COMPLETE BLOOD COUNT [id number] EOS % 7.3 % 4 Unknown COMPLETE BLOOD COUNT [id number] BASO % 0.1 % 4 Unknown COMPLETE BLOOD COUNT [id number] RDW 13.6 % 4 Unknown COMPLETE BLOOD COUNT [id number] ABS SAM 3.96 10e9/L 014 Unknown COMPLETE BLOOD COUNT [id number] ABS LYMPH 1.49 10e9/L 014 Unknown COMPLETE BLOOD COUNT [id number] ABS MONO 0.85 10e9/L 014 Unknown COMPLETE BLOOD COUNT [id number] ABS EOS 0.50 10e9/L 014 Unknown COMPLETE BLOOD COUNT [id number] ABS BASO 0.01 10e9/L 014 Unknown COMPLETE BLOOD COUNT 9345143 RDW-SD 42.3 fL 4 Unknown COMPREHENSIVE METABOLIC 09226 AST 27 U/L 2013 Unknown COMPREHENSIVE METABOLIC 39853 ALT 30 IU/L 2013 Unknown COMPREHENSIVE METABOLIC 99856 BUN 16 MG/DL 2013 Unknown COMPREHENSIVE METABOLIC 16929 ALBUMIN 4.9 GM/DL 2013 Unknown COMPREHENSIVE METABOLIC 26041 CHLORIDE 99 MMOL/L 2013 Unknown COMPREHENSIVE METABOLIC 54721 BILI TOT 0.7 MG/DL 2013 Unknown COMPREHENSIVE METABOLIC 00888 ALK PHOS 53 U/L 2013 Unknown COMPREHENSIVE METABOLIC 19591 SODIUM 137 MMOL/L 09/08 Unknown COMPREHENSIVE METABOLIC 58685 CREATININE 1.01 MG/DL 11/2013 Unknown COMPREHENSIVE METABOLIC 94229 CALCIUM 10.0 MG/DL 09/08 Unknown COMPREHENSIVE METABOLIC 43776 POTASSIUM 4.4 MMOL/L 09/08 Unknown COMPREHENSIVE METABOLIC 92280 PROT TOT 7.1 GM/DL 2013 Unknown COMPREHENSIVE METABOLIC 13095 Glucose 148 MG/DL 2013 Unknown COMPREHENSIVE METABOLIC 34721 BICARB 30 MMOL/L 2013 Unknown COMPREHENSIVE METABOLIC 16258 ANION GAP 8 MEQ/L 2013 Unknown GFR CALC 7671976 GFR AA >60 ML/MIN 09/08/2013 Unknown GFR CALC 4573389 GFR NON-AA >60 ML/MIN 09/08/2013 Unknown FREE T4 08142 FREE T4 1.08 NG/DL 09/08/2013 Unknown GLYCOSYLATED HEMOGLOBIN TEST 57049 A1C HPLC 43497-0 7.3 % 0 09/08/2013 Unknown THYROID STIMULATING HORMONE 49871 TSH 5.454 uIU/ML 09/08/2013 Unknown LIPID GROUP 83778 HDL TEST 59 MG/DL 09/08/2013 Unknown LIPID GROUP 22564 TRIG 92 MG/DL 09/08/2013 Unknown LIPID GROUP 62315 TEST LDL 83 MG/DL 09/08/2013 Unknown LIPID GROUP 19335 CHOL 160 MG/DL 09/08/2013 Unknown LIPID GROUP 86189 RCHOL/HDL 2.71 RATIO 09/08/2013 Unknow n VITAMIN B 12 FOLIC ACID 82205|57434 VIT B 12 467 PG/ML 12/2012 Unknown VITAMIN B 12 FOLIC ACID 70901|79914 FOLIC ACID 12.2 NG/ML Unknown VITAMIN B 12 FOLIC ACID 31646|94027 VIT B 12 467 PG/ML 12/2012 Unknown THYROID STIMULATING HORMONE 48515 TSH 4.557 uIU/ML 03/12/2013 Unknown HEMOGLOBIN A1C (GLYCOSYLATED) 6626037 A1C HPLC 49256-9 7.6 % 03/12/2013 Unknown VITAMIN D TOTAL (25 HYDROXY) 68846 VIT D TOTL 17 NG/ML 03/12/2013 Unknown FREE T4 07157 FREE T4 1.07 NG/DL 03/12/2013 Unknown URIC ACID 96767 URIC ACID 5.2 MG/DL 03/12/2013 Unknown Procedures Procedure Codes Date THER/PROPH/DIAG INJ SC/IM CPT-4: 47603 05/13/2019 TRIAMCINOLONE ACET INJ NOS CPT-4: J3301 05/13/2019 DEXAMETHASONE SODIUM PHOS CPT-4: J1100 05/13/2019 THER/PROPH/DIAG INJ SC/IM CPT-4: 66585 02/22/2019 TRIAMCINOLONE ACET INJ NOS CPT-4: J3301 02/22/2019 FLU VACC PRSV FREE INC ANTIG 65 AND OLDER CPT-4: 77353 04/21/2018 ADMIN INFLUENZA VIRUS VAC CPT-4: G0008 04/21/2018 PRESCRIP TRANSMIT VIA ERX SY CPT-4: G8553 04/21/2018 DESTRUCT PREMALG LESION (Cryosurgery) CPT-4: 89585 FLU VACC PRSV FREE INC ANTIG 65 AND OLDER CPT-4: 49691 04/22/2017 ADMIN INFLUENZA VIRUS VAC CPT-4: G0008 04/22/2017 PRESCRIP TRANSMIT VIA ERX SY CPT-4: G8553 10/10/2016 PRESCRIP TRANSMIT VIA ERX SY CPT-4: G8553 08/29/2015 ROUTINE VENIPUNCTURE CPT-4: 06372 07/26/2015 ASSAY OF FREE THYROXINE CPT-4: 89929 07/26/2015 ASSAY THYROID STIM HORMONE CPT-4: 95479 07/26/2015 COMPREHEN METABOLIC PANEL CPT-4: 89897 07/26/2015 COMPLETE CBC W/AUTO DIFF WBC CPT-4: 57044 07/26/2015 LIPID PANEL CPT-4: 68193 07/26/2015 ASSAY OF PSA TOTAL CPT-4: 12102 07/26/2015 A1C HPLC CPT-4: 42073 07/26/2015 ROUTINE VENIPUNCTURE CPT-4: 58585 01/17/2015 ASSAY OF FREE THYROXINE CPT-4: 91495 01/17/2015 ASSAY THYROID STIM HORMONE CPT-4: 03751 01/17/2015 COMPREHEN METABOLIC PANEL CPT-4: 91582 01/17/2015 COMPLETE CBC W/AUTO DIFF WBC CPT-4: 62500 01/17/2015 A1C HPLC CPT-4: 70357 01/17/2015 VITAMIN B-12 CPT-4: 76473 01/17/2015 PPPS, subseq visit CPT-4: G0439 08/04/2014 PRESCRIP TRANSMIT VIA ERX SY CPT-4: G8553 02/18/2014 FLUZONE, 5ML (Medicare) CPT-4: Q2038 07/22/2013 ADMIN INFLUENZA VIRUS VAC CPT-4: G0008 07/22/2013 PRESCRIP TRANSMIT VIA ERX SY CPT-4: G8553 04/28/2013 ROUTINE VENIPUNCTURE CPT-4: 62978 03/12/2013 VITAMIN D TOTAL (25 HYDROXY) CPT-4: 78032 03/12/2013 VITAMIN B 12 FOLIC ACID CPT-4: 26784|19252 03/12/2013 A1C GLYCOSYLATED HEMOGLOBIN TEST CPT-4: 48516 013 ASSAY OF BLOOD/URIC ACID CPT-4: 61742 03/12/2013 ASSAY OF FREE THYROXINE CPT-4: 67626 03/12/2013 ASSAY THYROID STIM HORMONE CPT-4: 89485 03/12/2013 CUR TOBACCO NON-USER CPT-4: G8457 03/11/2013 [...] 1: 156/70 Code: 8480-6 BMI: 35.0 Code: 73128-2 Heart Rate 1: 68 bpm Height: 5'10" Respiratory Rate: 20 bpm SpO2: 95% Tempera ture: 36.5 (C) / 97.7 (F) Weight: 244 lbs 04/21/2018 Blood Pressure 1: 124/80 Code: 8480-6 BMI: 34.4 Code: 02607-3 Heart Rate 1: 80 bpm Height: 5'10" Respiratory Rate: 20 bpm SpO2: 96% Tempera ture: 37.0 (C) / 98.6 (F) Weight: 240 lbs 01/06/2018 Blood Pressure 1: 138/82 Code: 8480-6 BMI: 33.9 Code: 67099-8 Heart Rate 1: 96 bpm Height: 5'10" Respiratory Rate: 24 bpm SpO2: 98% Tempera ture: 35.9 (C) / 96.6 (F) Weight: 236 lbs 10/22/2017 Blood Pressure 1: 144/70 Code: 8480-6 BMI: 34.7 Code: 20355-3 Heart Rate 1: 72 bpm Height: 5'10" Respiratory Rate: 20 bpm SpO2: 96% Tempera ture: 36.9 (C) / 98.4 (F) Weight: 242 lbs 04/22/2017 Blood Pressure 1: 146/82 Code: 8480-6 BMI: 32.9 Code: 42998-0 Heart Rate 1: 104 bpm Height: 5'10" Respiratory Rate: 20 bpm SpO2: 95% Tempera ture: 36.9 (C) / 98.5 (F) Weight: 229 lbs 10/10/2016 Blood Pressure 1: 124/64 Code: 8480-6 BMI: 32.9 Code: 69946-3 Heart Rate 1: 64 bpm Height: 5'10" [...] 1: 146/90 Code: 8480-6 BMI: 34.1 Code: 36931-7 Heart Rate 1: 80 bpm Height: 5'10" Respiratory Rate: 20 bpm Temperature: 36 .8 (C) / 98.2 (F) Weight: 238 lbs 01/17/2015 Blood Pressure 1: 116/60 Code: 8480-6 BMI: 32.7 Code: 68857-5 Heart Rate 1: 84 bpm Height: 5'10" Respiratory Rate: 20 bpm Temperature: 36 .7 (C) / 98.0 (F) Weight: 228 lbs 09/29/2014 Blood Pressure 1: 136/78 Code: 8480-6 BMI: 33.9 Code: 95073-5 Heart Rate 1: 80 bpm Height: 5'10" Respiratory Rate: 20 bpm Temperature: 36 .6 (C) / 97.9 (F) Weight: 236 lbs 08/04/2014 Blood Pressure 1: 132/70 Code: 8480-6 BMI: 32.9 Code: 00895-7 Heart Rate 1: 72 bpm Height: 5'10" Respiratory Rate: 20 bpm Temperature: 36 .7 (C) / 98.0 (F) Weight: 229 lbs 02/18/2014 Blood Pressure 1: 124/82 Code: 8480-6 Heart Rate 1: 82 bpm Respiratory Rate: 18 bpm Temperature: 36.4 (C) / 97.5 (F) Weight: 232 lbs 07/29/2013 Blood Pressure 1: 146/80 Code: 8480-6 BMI: 34.1 Code: 36226-5 Heart Rate 1: 64 bpm Height: 5'10" Respiratory Rate: 20 bpm Temperature: 36 .9 (C) / 98.5 (F) Weight: 238 lbs 05/26/2013 Blood Pressure 1: 142/90 Code: 8480-6 BMI: 34.0 Code: 86523-7 Heart Rate 1: 84 bpm Height: 5'10" Respiratory Rate: 20 bpm Temperature: 36 .7 (C) / 98.0 (F) Weight: 237 lbs 04/28/2013 Blood Pressure 1: 118/78 Code: 8480-6 BMI: 32.9 Code: 85503-0 Heart Rate 1: 74 bpm Height: 5'10" Respiratory Rate: 20 bpm Temperature: 36 .1 (C) / 97.0 (F) Weight: 229 lbs 03/11/2013 Blood Pressure 1: 146/80 Code: 8480-6 BMI: 31.5 Code: 01661-9 Heart Rate 1: 80 bpm Height: 6' [...] care Encounters Encounter Performer Location Codes Date ([id number]) OFFICE/OUTPATIENT VISIT EST Diagnosis: Esophageal reflux[ICD10: K21.9] Diagnosis: History of bladder cancer[ICD10: Z85.51] Xiomara BETTENCOURT [employer] [facility] CPT-4: 06254 12/07/2019 ([id number]) OFFICE/OUTPATIENT VISIT EST Diagnosis: DM w/o complication type II, uncontrolled[ICD10: E11.65] Diagnosis: Other dyspnea and respiratory abnormality[ICD10: R06.09] Xiomara BETTENCOURT [employer] [facility] CPT-4: 42655 10/27/2019 ([id number]) OFFICE/OUTPATIENT VISIT EST Diagnosis: Chronic obstructive pulmonary disease, unspecified[ICD10: J44.9] Diagnosis: DM w/o complication type II, uncontrolled[ICD10: E11.65] Diagnosis: Edema[ICD10: R60.9] Xiomara BETTENCOURT [employer] CPT-4: 41374 10/20/2019 ([id number]) OFFICE/OUTPATIENT VISIT EST Diagnosis: Other dyspnea and respiratory abnormality[ICD10: R06.09] Diagnosis: Obstructive sleep apnea[ICD10: G47.33] Diagnosis: Hypotension[ICD10: I95.9] Xiomaradaniel Bettencourt [facility] CPT -4: 45433 10/12/2019 ([id number]) OFFICE/OUTPATIENT VISIT EST Diagnosis: Upper respiratory infection[ICD10: J06.9] Penniefede BRADLEY Elvia [employer] CPT-4: 84740 06/02/2019 ([id number]) OFFICE/OUTPATIENT VISIT EST Diagnosis: Sinusitis[ICD10: J32.9] Diagnosis: Allergic rhinitis[ICD10: J30.9] Pennie RENAEQUELINE Elvia [employer] CPT-4: 88621 05/13/2019 ([id number]) OFFICE/OUTPATIENT VISIT EST Diagnosis: Pneumonia[ICD10: J18.9] Pennie ROSENBAUM [facility] CPT-4: 57953 04/26/2019 ([id number]) OFFICE/OUTPATIENT VISIT EST Diagnosis: Acute sinusitis, unspecified[ICD10: J01.90] Pennie BETTENCOURT [facility] CPT-4: 51328 02/22/2019 ([id number]) OFFICE/OUTPATIENT VISIT EST Diagnosis: Cervicalgia[ICD10: M54.2] Xiomara MAGALLON [facility] CPT-4: 23542 11/25/2018 ([id number]) OFFICE/OUTPATIENT VISIT EST Diagnosis: Acute sinusitis, unspecified[ICD10: J01.90] Diagnosis: Myalgia, unspecified site[ICD10: M79.10] Diagnosis: Cervicalgia[ICD10: M54.2] [facility]: 32603 11/19/2018 ([id number]) OFFICE/OUTPATIENT VISIT EST Diagnosis: Low back pain[ICD10: M54.5] Diagnosis: Essential (primary) hypertension[ICD10: I10] Diagnosis: 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, 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] Diagnosis: Paroxysmal atrial fibrillation[ICD10: I48.0] Xiomara BETTENCOURT [facility] CPT-4: 22588 07/22/2018 ([id number]) OFFICE/OUTPATIENT VISIT EST Diagnosis: Type 2 diabetes mellitus with diabetic neuropathy, unspecified[ICD10: E11.40] Diagnosis: Hyperlipidemia, unspecified[ICD10: E78.5] Diagnosis: Essential (primary) hypertension[ICD10: I10] Diagnosis: Chronic kidney disease, stage 1[ICD10: N18.1] Diagnosis: Benign prostatic hyperplasia with lower urinary tract symptoms[ICD10: N40.1] Diagnosis: FLU VACCINE[ICD10: Z23] Xiomara ROSENBAUM [facility] CPT-4: 36885 04/21/2018 OFFICE/OUTPATIENT VISIT EST Diagnosis: Type 2 diabetes mellitus with hyperglycemia[ICD10: E11.65] Diagnosis: Essential (primary) hypertension[ICD10: I10] Diagnosis: Mixed hyperlipidemia[ICD10: E78.2] Diagnosis: Other fatigue[ICD10: R53.83] Pennie Pizarro XIOMARA DelphineEdvin REED [employer] [address] [facility] CPT-4: 40927 01/06/2018 ([id number]) OFFICE/OUTPATIENT VISIT EST Diagnosis: Type 2 diabetes mellitus with diabetic neuropathy, unspecified[ICD10: E11.40] Diagnosis: Essential (primary) hypertension[ICD10: I10] Diagnosis: Pain in right thigh[ICD10: M79.651] Diagnosis: Pain in left leg[ICD10: M79.605] Diagnosis: Localized swelling, mass and lump, left lower limb[ICD10: R22.42] Diagnosis: OSTEOARTHRISIS MULTI SITES[ICD10: M19.90] Diagnosis: FLU VACCINE[ICD10: Z23] Xiomara LARA DelphineEdvin REED [place] [address] [facility] CPT-4: 93190 04/22/2017 ([id number]) OFFICE/OUTPATIENT VISIT EST Diagnosis: Essential (primary) hypertension[ICD10: I10] Diagnosis: Type 2 diabetes mellitus with hyperglycemia[ICD10: E11.65] Diagnosis: Angina pectoris, unspecified[ICD10: I20.9] Xiomara Renonelson LARA DelphineEdvin REED [place] [address] [facility] CPT-4: 27936 10/10/2016 ([id number]) OFFICE/OUTPATIENT VISIT EST Diagnosis: Cough[ICD10: R05] Diagnosis: Wheezing[ICD10: R06.2] Diagnosis: Chronic obstructive pulmonary disease, unspecified[ICD10: J44.9] Shannan Gan REED [place] [address] [facility] CPT-4: 48455 08/31/2015 OFFICE/OUTPATIENT VISIT EST Diagnosis: Acute bronchitis, unspecified[ICD10: J20.9] Diagnosis: Wheezing[ICD10: R06.2] Kelsie LARA [facility] [place] CPT-4: 43392 08/29/2015 ([id number]) OFFICE/OUTPATIENT VISIT EST Diagnosis: Type 2 diabetes mellitus with diabetic neuropathy, unspecified[ICD10: E11.40] Diagnosis: Hyperlipidemia, unspecified[ICD10: E78.5] Diagnosis: Essential (primary) hypertension[ICD10: I10] Diagnosis: Encounter for general adult medical examination without abnormal findings[ICD10: Z00.00] Xiomara BETTENCOURT [facility] CPT-4: 98675 07/26/2015 OFFICE/OUTPATIENT VISIT EST Diagnosis: Type 2 diabetes mellitus with hyperglycemia[ICD10: E11.65] Diagnosis: Unspecified osteoarthritis, unspecified site[ICD10: M19.90] Diagnosis: Other instability, right knee[ICD10: M25.361] Kelsie BETTENCOURT DO [facility] CPT-4: 46166 07/24/2015 ([id number]) OFFICE/OUTPATIENT VISIT EST Diagnosis: Pain in leg, unspecified[ICD10: M79.606] Diagnosis: Type 2 diabetes mellitus with diabetic neuropathy, unspecified[ICD10: E11.40] Xiomara AkersEdvin KODAK [facility] CPT-4: 90230 05/01/2015 ([id number]) OFFICE/OUTPATIENT VISIT EST Diagnosis: MALAISE AND FATIGUE[ICD9: 780.79] Diagnosis: 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, 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] Diagnosis: CAD[ICD9: 414.00] Diagnosis: ANEMIA NOS[ICD9: 285.9] Xiomara ROSENBAUM [facility] CPT-4: 33097 01/17/2015 ([id number]) OFFICE/OUTPATIENT VISIT EST Diagnosis: Skin lesion[ICD9: 709.9] Xiomara HANLINE Elvia GENAO [facility] CPT-4: 95680 09/29/2014 OFFICE/OUTPATIENT VISIT EST Diagnosis: GASTROENTERITIS[ICD9: 558.9] Diagnosis: GERD[ICD9: 530.81] Kelsie BETTENCOURT [facility] CPT-4: 35570 02/18/2014 ([id number]) OFFICE/OUTPATIENT VISIT EST Diagnosis: 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I, UNCONTROLLED[ICD9: 250.02] Xiomara HANLINE DelphineEdvin KODAK [facility] CPT-4: 35640 07/29/2013 ([id number]) OFFICE/OUTPATIENT VISIT EST Diagnosis: FLU VACCINE[ICD9: V04.81] Xiomara Renovondaer XIOMARADANIEL MAGALLON [facility] CPT-4: 73810 07/22/2013 ([id number]) OFFICE/OUTPATIENT VISIT EST Diagnosis: 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I, UNCONTROLLED[ICD9: 250.02] Diagnosis: HYPERTENSION[ICD9: 401.9] Xiomara MAGALLON [facility] CPT-4: 26014 05/26/2013 ([id number]) OFFICE/OUTPATIENT VISIT EST Diagnosis: MONONEURITIS[ICD9: 355.9] Diagnosis: RESTLESS LEGS SYNDROME[ICD9: 333.94] Diagnosis: HYPERTENSION[ICD9: 401.9] Diagnosis: CAD[ICD9: 414.00] Diagnosis: Weakness[ICD9: 780.79] [facility] CPT-4: 17466 04/28/2013 ([id number]) OFFICE/OUTPATIENT VISIT EST Diagnosis: 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[ICD9: 250.01] Diagnosis: MONONEURITIS[ICD9: 355.9] Diagnosis: HYPERLIPIDEMIA NEC/NOS[ICD9: 272.4] Diagnosis: CAD[ICD9: 414.00] [facility] CPT-4: 67371 03/12/2013 OFFICE/OUTPATIENT VISIT NEW Diagnosis: CAD[ICD9: 414.00] Diagnosis: HYPERLIPIDEMIA NEC/NOS[ICD9: 272.4] Diagnosis: HYPERTENSION[ICD9: 401.9] Diagnosis: Neuropathy[ICD9: 355.9] Diagnosis: RESTLESS LEGS SYNDROME[ICD9: 333.94] [facility]ara [facility] CPT-4: 20555 03/11/2013 Plan of Care Planned Activity Notes Codes Status Date Visit Diagnosis Plan: History of bladder cancer Discus jaswinder: Check CT abdomen/pelvis ICD-9 : V10.51 ICD-10 : Z85.51 12/07/2019 Visit Diagnosis Plan: Esophageal reflux Discussion: Ta kesha omeprazole daily Will try pancreatic enzymes ICD-9 : 530.81 ICD-10 : K21.9 12/07/2019 Care Plan: CT PELVIS W/O DYE [...] : R06.09 10/27/2019 Appointment: Xiomara Bettencourt [facility]el[facility] [facility] 10/27/2019 Patient Education: gabapentin- [employer] Coupon [phone] [email or web address]-[email or web address]/resources/getResource/[email or web address] Completed 10/27/2019 Visit Diagnosis Plan: DM w/o [...] : J44.9 10/20/2019 Appointment: Xiomara Bettencourt WPtel: [facility] [facility] 10/20/2019 Patient Education: furosemide- [employer] Coupon [phone] https://[email or web address]-[email or web address]/resources/getResource/[email or web address] Completed 10/20/2019 Visit Diagnosis Plan: Obstructive sleep [...] : I95.9 10/12/2019 Appointment: Xiomara Bettencourt WPtel: [address] [place] [address] TELEMEDICINE 10/12/2019 Appointment: Xiomara Bettencourt WPtel: [address] [place] [address] RESCHEDULED 09/23/2019 Care Plan: COMPREHEN METABOLIC PANEL SERGEI NC : 77494-4 Pending 09/20/2019 Care Plan: LIPID PANEL LOINC : 11395-9 Pending 09/20/2019 Care Plan: A1C HPLC LOINC : 50219-7 Pending 09/20/2019 Care Plan: COMPLETE CBC W/AUTO DIFF WBC LOINC : 25484-4 Pending 09/20/2019 Visit Diagnosis Plan: Upper respiratory infection Disc ussion: discussed that most likely viral. push fluids and rest through the week. patient has left over levaquin at home (5 days worth). instructed patient to start taking if he gets worse later this week and to call us next week if no improvement. ICD-9 : 465.9 ICD-10 : J06.9 06/02/2019 Appointment: Pennie Pizarro [address] [place] [address] ACUTE ILLNESS 06/02/2019 Visit Diagnosis Plan: Allergic [...] ICD-10 : J30.9 05/13/2019 Appointment: Pennie Pizarro [address] [place] [address] ACUTE ILLNESS 05/13/2019 Appointment: Xiomara Bettencourt WPtel: [phone] CANCELED 04/27/2019 Visit Diagnosis Plan: Pneumonia Discussion: will obtai n records from urgent care. instructed to finish out doxy. no rhonchi or crackles auscultated. symbicort sample given to patient with instructions to use bid. call office later this week with new or worsening symptoms. ICD-9 : 486 ICD-10 : J18.9 04/26/2019 Appointment: Pennie Pizarro [address] [place] [address] FOLLOW UP 04/26/2019 Visit Diagnosis Plan: Acute [...] ICD-10 : J01.90 02/22/2019 Appointment: Pennie Pizarro [address] [place] [address] ACUTE ILLNESS 02/22/2019 Patient Education: prednisone- [employer] Coupon [phone] [email or web address]/samplemd/resources/getResource/[email or web address] Completed 02/22/2019 Visit Diagnosis Plan: Cervicalgia Discussion: Check Ce rvical Spine X-ray Will likely need PT ICD-9 : 723.1 ICD-10 : M54.2 11/25/2018 Appointment: Xiomara Bettencourt WPtel: [phone] [id number] ACUTE ILLNESS 11/25/2018 Visit Plan: Saline nasal [...] flu shes prn. Tyle... 11/19/2018 Appointment: Xiomara Bettencourttel: [phone] [facility] [facility] 11/19/2018 Patient Education: baclofen- [employer] Coupon [phone] [email or web address]://www.[email or web address]/samplemd/resources/getResource/61/[email or web address] Completed 11/19/2018 Visit Diagnosis Plan: Paroxysmal atrial fibrillation D iscussion: In NSR today Discussed risk of bleeding with both plavix and eliquis Sees cardiology in 3 mos ICD-9 : 427.31 ICD-10 : I48.0 07/22/2018 Visit Diagnosis Plan: 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, UNCO NTROLLED Discussion: Check lab and fwup in 3mos ICD-9 : 250.03 ICD-10 : E10.9 07/22/2018 Visit Diagnosis Plan: Low back pain Discussion: Topica l muscle rub Tylenol prn No NSAIDs ICD-9 : 724.2 ICD-10 : M54.5 07/22/2018 Visit Diagnosis Plan: Essential (primary) hypertension Discussion: Stable ICD-9 : 401.9 ICD-10 : I10 07/22/2018 Appointment: Xiomara Bettencourt WPtel: [phone] [facility] [facility] FOLLOW [facility] 07/22/2018 Visit Diagnosis [...] Trial of flomax Call in 1 mo [facility] on how doing Follow Up: 4 months ICD-9 : 600.21 ICD-10 : N40.1 04/21/2018 Appointment: Xiomara Bettencourt WPtel: [facility] FOLLOW UP 04/21/2018 Patient Education: Patient [...] ICD-10 : E78.2 01/06/2018 Appointment: Pennie Pizarro [address] [place] [address] MEDICATION REVIEW 01/06/2018 Patient Education: Patient Medication Summary Completed 01/06/2018 Appointment: Xiomara Bettencourt WPtel: [address] [place] [address] [place] NO SHOW 01/05/2018 Appointment: Xiomara Bettencourt WPtel: [address] [place] [address] [place] CANCELED 12/31/2017 Visit Diagnosis Plan: Actinic keratosis Discussion: Cr yotherapy as above but will see derm if lesions do not resolve ICD-9 : 702.0 ICD-10 : L57.0 10/22/2017 Appointment: Xiomara Bettencourt WPtel: [address] [place] [address] ACUTE ILLNESS 10/22/2017 Patient Education: Patient Medication [...] : M79.605 04/22/2017 Appointment: Xiomara Bettencourt WPtel: [facility] [facility] FOLLOW UP 04/22/2017 Patient Education: Patient Medication Summary Completed 04/22/2017 Patient Education: Patient Medication Summary Completed 04/16/2017 Care Plan: COMPREHEN METABOLIC PANEL SERGEI NC : 21284-9 Pending 04/16/2017 Care Plan: LIPID PANEL LOINC : 62243-6 Pending 04/16/2017 Care Plan: CBC Pending 04/16/2017 Care Plan: A1C HPLC LOINC : 09102-4 Pending 04/16/2017 Referral: Inocencio Goodson WPtel: [address] [place] [address] [id number] [place] Referral Appointment Confirmed 10/14/2016 Visit Diagnosis Plan: Type 2 diabetes mellitus with hy perglycemia Discussion: Continue toujeo Accuchecks BID Follow Up: 4 months ICD-9 : 250.02 ICD-10 : E11.65 10/10/2016 Visit Diagnosis Plan: Angina pectoris, unspecified Dis cussion: Continue imdur and see cardiology To ER if chest pain returns ICD-9 : 413.9 ICD-10 : I20.9 10/10/2016 Appointment: Xiomara Bettencourt WPtel: [phone] [facility] [facility] FOLLOW UP 10/10/2016 Patient Education: Patient Medication Summary Completed 10/10/2016 Patient Education: Patient Medication Summary Completed 09/16/2016 Care Plan: COMPREHEN METABOLIC PANEL SERGEI NC : 75152-7 Pending 09/16/2016 Care Plan: ASSAY THYROID STIM HORMONE Pen ding 09/16/2016 Care Plan: ASSAY OF FREE THYROXINE Pendin g 09/16/2016 Care Plan: LIPID PANEL LOINC : 31230-8 Pending 09/16/2016 Care Plan: CBC Pending 09/16/2016 Care Plan: A1C HPLC LOINC : 98673-2 Pending 09/16/2016 Visit Plan: CXR now to further evaluate symptoms Suspect viral since he has been on 2 rounds of antibiotics If chronic lung disease evident, will consider keeping on symbicort fdc Sample inhaler given today with instructions on use Continue oral prednisone, would like to avoid injection if possible considering his DM status and he is stable right now Continue albuterol PRN Will call with CXR results 08/31/2015 Appointment: Shannan Grimes [address] [place] [address] 08/31 confirmed- SP ACUTE ILLNESS 08/31/2015 Patient Education: Patient Medication Summary Completed 08/31/2015 Visit Plan: Albuterol INH via SVN every 4 hours Prednisone 20 mg PO BID Notify for worsening symptoms 08/29/2015 Appointment: Kelsie Grubbs WPtel: [address] [place] [address] ACUTE ILLNESS 08/29/2015 Patient Education: Patient Medication Summary Completed 08/29/2015 Appointment: Xiomara Bettencourt WPtel: [address] [place], [place] [phone] US LAB 07/26/2015 Patient Education: Patient Medication Summary Completed 07/26/2015 Visit Plan: Return in am for fasting lab s - CBC, CMP, TSH, Free T4, HgbA1C Change Levemir to Toujeo - Continue 35 Units q am - sample given Start physical Therapy for increased quadriceps strengthening and decreased pain in knees, bilaterally. 07/24/2015 Appointment: Kelsie Grubsb WPtel: [address] [place], [place] [phone] 07/21 appt confirmed cn FOLLOW UP 07/24/19 16 Appointment: Kelsie Grubbs WPtel: [address] [place], [place] [phone] [place] FOLLOW UP 07/24/2015 Patient Education: Patient [...] with insulin 05/01/2015 Appointment: Xiomara Bettencourt WPtel: [address] [place] [address] 04/28 confirmed~ ACUTE ILLNESS 05/01/2015 Patient Education: Patient Medication Summary Completed 05/01/2015 Patient Education: Patient Medication Summary Completed 01/19/2015 Care Plan: URINALYSIS [place]O W/[place] : [id number] Pending 01/19/2015 Visit Plan: I have went [...] stress test 01/17/2015 Appointment: Xiomara Bettencourt WPtel: [address] [place] [address] 01/16 vm ACUTE ILLNESS 01/17/2015 Patient Education: Patient Medication Summary Completed 01/17/2015 Visit Plan: See Dr. Garvin for removal 09/29/2014 Appointment: Xiomara Bettencourt WPtel: [address] [place] [address] ACUTE ILLNESS 09/29/2014 Referral: Colt Garvin WPtel: [address] Referral Initiated 09/29/2014 Patient Education: Patient Medication Summary Completed 09/29/2014 Visit Plan: Check CBC, CMP, TSH, free T4 , HbA1C, Lipids Accuchecks daily alternating times Patient has been adjusting own meds and has not taken any cholesterol meds for sometime Will check into surgery on right knee at [facility] Check carotid dopplers 08/04/2014 Appointment: Xiomara Bettencourt WPtel: [address] [place] [address] Annual Well Visit 08/04/2014 Patient Education: Patient Medication Summary Completed 08/04/2014 Appointment: Kelsie Grubbs WPtel: [address] [place] [address] ACUTE ILLNESS 02/18/2014 Patient Education: Patient Medication Summary Completed 02/18/2014 Patient Education: [facility] - Saving AutoInj - 18+ - Dynamic Portal ID Completed 02/18/2014 Appointment: Xiomara Bettencourt WPtel: [address] [place], [place] [phone] 09/08/2013 Visit Plan: Check fasting lab in 1mo Con tinue Lantus and accuchecks at least BID 07/29/2013 Appointment: Xiomara Bettencourt WPtel: [address] [place] [address] FOLLOW UP 07/29/2013 Patient Education: Patient Medication Summary Completed 07/29/2013 Appointment: Xiomara Bettencourt WPtel: [address] [place], [place] [phone] INJECTION 07/22/2013 Patient Education: Patient Medication Summary Completed 07/22/2013 Visit Plan: Pt has been self-adjusting m eds Stop metformin and amaryl Use Levemir 25u sc BID and call in 1wk with BS readings 05/26/2013 Appointment: Xiomara Bettencourt WPtel: [address] [place], [place] [phone] FOLLOW UP 05/26/2013 Patient Education: Patient Medication Summary Completed 05/26/2013 Visit Plan: DC Metformin Increase Lantus to 30u sc daily Change lisinopril to lisinopril HCT 20/25mg q AM Continue Gabapentin at current dose 04/28/2013 Appointment: Xiomara Bettencourt WPtel: [address] [place], [place] [phone] FOLLOW UP 04/28/2013 Patient Education: Patient Medication Summary Completed 04/28/2013 [facility]ment[facility]court [facility] [phone] [id number] [facility] 03/12/2013 Patient Education: Patient Medication Summary Completed 03/12/2013 Visit Plan: Trial of neurontin 400mg q H S Obtain most recent lab results Change levemir to lantus per pt request Pt goes for sleep study tonite 03/11/2013 Appointment: Xiomara Bettencourt [facility]el[facility] [phone] [id number] 02/01paperwork mailed 03/10 confirmed with spouse NEW PATIENT 11/2012 Patient Education: Patient Medication Summary Completed 03/11/2013 Instructions Comment . Saline nasal flushes prn. Tylenol/Motr in prn headache. Notify if persists/symptoms worsening. . CXR now to further evaluate symptoms Suspect viral since he has been on 2 rounds of antibiotics If chronic lung disease evident, will consider keeping on symbicort fdc Sample inhaler given today with instructions on [...] check into surgery on right knee at [facility] Check carotid dopplers . Check [...]
--- OUTSIDE RECORDS SUMMARY | 2020-02-02 21:34 | XMS REPORT | CCD ---
Author Author Sheng Bettencourt D.O. Organization [facility] DelphineEdvin BETTENCOURT DO [facility] Address [address] [place] [address] Phone Care Team Providers Care Compo Caster Name Role Phone PP Unavailable CCM Unavailable Summary Purpose Interface Exchange Insurance Providers Payer name Policy type / Coverage type Covered green party ID Effective Begin Date Effective End Date WPS MEDICARE PART B [place] Medicare Part B [id number] 2018 Unknown [facility] Medicare Part B [id number] 2018 Un known Family history Mother Diagnosis Age At Onset Diabetes mellitus Type 2 Unknown Hypercholesterolemia Unknown Father Diagnosis Age At Onset No Family Disease Entered N/A Social History Social History Element Codes Description Effective Dates Marital status Unknown 03/11/2013 Number of children Unknown 4 03/11/2013 Employment Unknown Retired 03/11/[address]: 2996240 Former smoker 03/11/[address]: 230922 Currently drinks alc ohol Socially 03/11/2013 Has [...] Fill Instructions Flomax 0.4 mg capsule RxNorm: 313657 TAKE TWO CAPSULES BY MOUTH EVERY EVENING 11/11/2019 No Stop Date Active glimepiride 2 mg tablet RxNorm: 031252 1 Tablet(s) Oral QD 10/27/19 20 No Stop Date Active gabapentin 400 mg capsule RxNorm: 553638 1 Capsule(s) Oral QPM 10/0604/24/2020 Active potassium chloride ER 20 mEq tablet,extended release RxNorm: 610271 1 Tablet(s) Oral QD to take with lasix 10/20/2019 10/26/2019 Inactive furosemide 40 mg tablet RxNorm: 455212 1 Tablet(s) Oral QAM for swelling 10/20/2019 10/26/2019 Inactive albuterol sulfate HFA 90 mcg/actuation aerosol inhaler RxNor m: 4444212 1-2 Puff(s) Inhalation as needed 10/12/2019 No Stop Date Active Zyrtec 10 mg tablet RxNorm: 8776143 1 Tablet(s) Oral QAM 10/12/2019 No Stop Date Active aspirin 81 mg tablet,delayed release RxNorm: 494512 1 Tablet(s) Oral QD 10/12/2019 No Stop Date Active Symbicort 160 mcg-4.5 mcg/actuation HFA aerosol inhaler RxNo rm: 4216352 2 Puff(s) Inhalation QD 10/12/2019 No Stop Date Active lisinopril 20 mg tablet RxNorm: 629927 1 Tablet(s) Oral QD 10/12/1901/10/2020 Active simvastatin 20 mg tablet RxNorm: 362362 1 Tablet(s) Ora l QD Needs updated fasting labs 09/20/2019 12/19/2019 Active Needs updated fa sting labs before 90 day refill Flomax 0.4 mg capsule RxNorm: 518117 TAKE TWO CAPSULES BY MOUTH EVERY EVENING 08/03/2019 11/10/2019 Inactive gabapentin 400 mg capsule RxNorm: 930107 TAKE ONE CAPSU LE BY MOUTH EVERY EVENING 08/02/2019 10/26/2019 Inactive simvastatin 20 mg tablet RxNorm: 717994 1 Tablet(s) Ora l QD Needs updated fasting labs 07/21/2019 08/19/2019 Inactive Needs updated fa sting labs before 90 day refill simvastatin 20 mg tablet RxNorm: 126090 1 Tablet(s) Ora l QD Needs updated fasting labs 06/23/2019 07/20/2019 Inactive Needs updated fa sting labs before 90 day refill Flomax 0.4 mg capsule RxNorm: 416163 1 Capsule(s) Oral QD 05/13/2019 10/19/2019 Inactive Flomax 0.4 mg capsule RxNorm: 395739 TAKE TWO CAPSULES BY MOUTH EVERY EVENING 03/19/2019 05/12/2019 Inactive Augmentin 500 mg-125 mg tablet RxNorm: 400126 1 Tablet(s) PO BID 03/03/2019 Inactive baclofen 10 mg tablet RxNorm: 279967 TAKE ONE TABLET BY MOUTH EVERY NIGHT AT BEDTIME FOR PAIN OR SPASMS 01/14/2019 05/12/2019 Inactive Flomax 0.4 mg capsule RxNorm: 516880 TAKE TWO CAPSULES BY MOUTH EVERY EVENING 01/12/2019 03/18/2019 Inactive gabapentin 400 mg capsule RxNorm: 642872 1 Capsule(s) PO QPM 201806/27/2019 Inactive baclofen 10 mg tablet RxNorm: 143159 1 Tablet(s) PO QHS for my n/spasm 12/15/2018 01/13/2019 Inactive simvastatin 20 mg tablet RxNorm: 951933 TAKE ONE TABLET BY MOUT H DAILY 12/11/2018 06/22/2019 Inactive OneTouch Ultra Blue Test Strip RxNorm: Use 1 rigoberto t strip three times daily to check blood sugar (Dx:E11.65) 12/07/2018 No Stop Date Active gabapentin 400 mg capsule RxNorm: 301001 TAKE ONE CAPSU LE BY MOUTH EVERY EVENING 12/04/2018 12/29/2018 Inactive baclofen 10 mg tablet RxNorm: 670114 1 Tablet(s) PO QHS for my n/spasm 11/19/2018 12/15/2018 Inactive Flomax 0.4 mg capsule RxNorm: 101234 2 Capsule(s) PO QPM 09/15/2018 0 12/13/2018 Inactive WOULD LIKE 90DS!!! gabapentin 400 mg capsule RxNorm: 245777 TAKE ONE CAPSU LE BY MOUTH EVERY EVENING 07/21/2018 10/18/2018 Inactive simvastatin 20 mg tablet RxNorm: 676518 1 Tablet(s) PO QD 06/15/2018 12/10/2018 Inactive Flomax 0.4 mg capsule RxNorm: 308671 TAKE TWO CAPSULES BY MOUTH EVERY EVENING 06/02/2018 09/15/2018 Inactive WOULD LIKE 90DS!!! Flomax 0.4 mg capsule RxNorm: 776166 2 Capsule(s) PO QPM 04/21/2018 1 07/20/2017 Inactive simvastatin 20 mg tablet RxNorm: 096266 1 Tablet(s) PO QD Take 1 tablet by mouth daily. Patient due for labwork before further refill. 04/06/20182017 Inactive simvastatin 20 mg tablet RxNorm: 690568 Tablet(s) TAKE ONE TABLET BY MOUTH DAILY 03/25/2018 06/15/2018 Inactive simvastatin 20 mg tablet RxNorm: 213546 Tablet(s) TAKE ONE TABLET BY MOUTH DAILY due for appt 12/29/2017 03/25/2018 Inactive simvastatin 20 mg tablet RxNorm: 075570 TAKE ONE TABLET BY MOUT H DAILY 09/03/2017 12/29/2017 Inactive simvastatin 20 mg tablet RxNorm: 577382 1 Tablet(s) PO QD 10/22/2016 11/18/2018 Inactive isosorbide mononitrate ER 60 mg tablet,extended release 24 h r RxNorm: 429562 1 Tablet(s) PO QD 10/22/2016 04/21/2017 Inactive isosorbide mononitrate ER 60 mg tablet,extended release 24 h r RxNorm: 858836 1 Tablet(s) PO QD 10/10/2016 10/21/2016 Inactive simvastatin 20 mg tablet RxNorm: 376435 1 Tablet(s) PO QD 10/10/2016 10/21/2016 Inactive gabapentin 400 mg capsule RxNorm: 373294 1 Capsule(s) PO QPM 201609/20/2016 Inactive Toujeo SoloStar 300 unit/mL (1.5 mL) subcutaneous insulin pe n RxNorm: 1279115 35 Unit(s) SQ QAM 07/23/2016 07/22/2016 Inactive Toujeo SoloStar 300 unit/mL (1.5 mL) subcutaneous insulin pe n RxNorm: 2356395 40 Unit(s) SQ QAM 09/01/2015 No Stop Date Active Symbicort 160 mcg-4.5 mcg/actuation HFA aerosol inhaler RxNo rm: 8922531 2 Puff(s) INH BID 08/31/2015 09/09/2015 Inactive prednisone 20 mg tablet RxNorm: 088120 1 Tablet(s) PO BID 08/29/2015 09/02/2015 Inactive albuterol sulfate 2.5 mg/3 mL (0.083 %) solution for n ebulization RxNorm: 435497 1 Unit(s) INH Q4H as needed 08/29/2015 10/09/2016 Inactive levothyroxine 75 mcg tablet RxNorm: 373496 1 Tablet(s) PO QD 201507/27/2015 Inactive levothyroxine 75 mcg tablet RxNorm: 894778 1 Tablet(s) PO QD 201511/18/2018 Inactive levothyroxine 75 mcg tablet RxNorm: 168815 1 Tablet(s) PO QD 201507/27/2015 Inactive lisinopril 20 mg-hydrochlorothiazide 25 mg tablet RxNorm: 19 7887 TAKE ONE TABLET BY MOUTH EVERY MORNING. REPLACES PLAIN LISINOPRIL 03/06/2015 04/21/2017 Inactive lisinopril 20 mg-hydrochlorothiazide 25 mg tablet RxNorm: 19 7887 TAKE ONE TABLET BY MOUTH EVERY MORNING. REPLACES PLAIN LISINOPRIL 09/08/2014 03/05/2015 Inactive allopurinol 100 mg tablet RxNorm: 597416 1 Tablet(s) PO BID 015 10/09/2016 Inactive [SAVINGS FOR NON-COVERED YULIA GS -- BIN:[id number], PCN: [id number], Group: [id number], ID# [id number], Questions: . THIS IS NOT INSURANCE.] levothyroxine 50 mcg tablet RxNorm: 141791 1 Tablet(s) PO QD 201407/26/2015 Inactive [AttnRPh: Saving apply/adjud icate RxGRP:SG20 RxBIN:[id number] RxPCN:HT ID#:[id number]] Zegerid 40 mg-1.1 gram capsule RxNorm: 375155 1 Capsule(s) PO QD 03/03/2014 Inactive [AttnRPh: Saving apply/adjud icate RxGRP:SG20 RxBIN:[id number] RxPCN:HT ID#:[id number]] ondansetron 8 mg disintegrating tablet RxNorm: 639116 1 Tablet(s) PO Q8H as needed for [...] 07/28/2013 Inactive gabapentin 400 mg capsule RxNorm: 969128 1 Capsule(s) PO QPM 201207/28/2013 Inactive gabapentin 400 mg capsule RxNorm: 394321 1 Capsule(s) PO QPM 201206/26/2013 Inactive lisinopril 20 mg-hydrochlorothiazide 25 mg tablet RxNorm: 82 3971 1 Tablet(s) PO QAM replaces plain lisinopril 04/28/2013 07/29/2013 Inactive gabapentin 400 mg capsule RxNorm: 611363 1 Capsule(s) PO QPM 201204/27/2013 Inactive gabapentin 400 mg capsule RxNorm: 855498 1 Capsule(s) PO QPM 201203/10/2013 Inactive gabapentin 400 mg capsule RxNorm: 100030 1 Capsule(s) PO QPM 201203/14/2013 Inactive Lantus Solostar 100 unit/mL (3 mL) Sub-Q Insulin Pen RxNorm: 631578 20 Unit(s) SQ QPM 03/11/2013 03/15/2013 Inactive Toujeo SoloStar 300 unit/mL (1.5 mL) subcutaneous insulin pe n RxNorm: 4598872 35 Unit(s) SQ QAM No Start Date Active omeprazole 20 mg capsule,delayed release RxNorm: 626046 1 Capsu le(s) PO QD No Start Date Active isosorbide mononitrate ER 60 mg tablet,extended release 24 h r RxNorm: 501068 1 Tablet(s) PO QD No Start Date Active Eliquis 5 mg tablet RxNorm: 5531517 1 Tablet(s) PO BID No Start Date Active metformin 500 mg tablet RxNorm: 563645 1 Tablet(s) PO BID No Start Da te Active levothyroxine 50 mcg tablet RxNorm: 871366 1 Tablet(s) PO QD No Start Date Active Norvasc 10 mg tablet RxNorm: 514021 1 Tablet(s) PO QHS No Start Date Active Toujeo SoloStar 300 unit/mL (1.5 mL) subcutaneous insulin pe n RxNorm: 8518764 30 Unit(s) SQ QAM No Start Date Active glimepiride 4 mg tablet RxNorm: 972029 1 Tablet(s) PO QHS No Start Date 07/26/2015 Inactive allopurinol 100 mg tablet RxNorm: 471591 1 Tablet(s) PO BID No Star t Date 08/10/2014 Inactive Lantus Solostar 100 unit/mL (3 mL) subcutaneous insulin pen RxNorm: 042542 30 Unit(s) SQ QD No Start Date 08/03/2014 Inactive Levemir FlexTouch 100 unit/mL (3 mL) subcutaneous insulin pe n RxNorm: 631297 25 Unit(s) SQ QAM No Start Date 07/23/2015 Inactive Lantus 100 unit/mL Sub-Q RxNorm: 713113 30 Unit(s) SQ QHS No Start Date 05/25/2013 Inactive Lantus Solostar 100 unit/mL (3 mL) Sub-Q Insulin Pen RxNorm: 673763 20 Unit(s) SQ QPM No Start Date 03/10/2013 Inactive OneTouch Ultra Blue Test Strip RxNorm: Use 1 rigoberto t strip three times daily to check blood sugar (Dx:E11.65) No Start Date 12/06/2018 Inactive Levemir FlexTouch 100 unit/mL (3 mL) subcutaneous insulin pe n RxNorm: 639071 30- 35 Unit(s) SQ QAM No Start Date 07/23/2015 Inactive Levemir Flexpen 100 unit/mL (3 mL) solution subcutaneo us insulin pen RxNorm: 503393 20-25 Unit(s) SQ QD No Start Date 07/28/2013 Inactive lisinopril 20 mg tablet RxNorm: 589580 1 Tablet(s) PO QD No Start D ate 10/11/2019 Inactive indomethacin ER 75 mg capsule,extended release RxNorm: 62815 2 1 Capsule(s) PO QAM No Start Date 04/27/2013 Inactive indomethacin ER 75 mg capsule,extended release RxNorm: 00202 2 1 Capsule(s) PO QD No Start Date 01/16/2015 Inactive Chlortab-4 oral RxNorm: 409532 oral No Start Date 10/11/2019 Inac tive Vitamin D3 5,000 unit tablet RxNorm: 883410 1 Tablet(s) PO QD No St art Date 08/03/2014 Inactive Levemir Flexpen 100 unit/mL (3 mL) solution subcutaneo us insulin Pen RxNorm: 081966 20 Unit(s) SQ QHS No Start Date 03/10/2013 Inactive Vytorin 10 mg-40 mg tablet RxNorm: 7851361 1/2 Tablet(s) PO QD No S tart Date 04/20/2018 Inactive oxymetazoline-menthol 0.05 % nasal spray RxNorm: 1244337 [place] COTY No Start Date 10/11/2019 Inactive Patient states he ta kes every 10 hours Tamia SoloStar 300 unit/mL (1.5 mL) subcutaneous insulin pe n RxNorm: 6411088 35 Unit(s) SQ QAM No Start Date 07/22/2016 Inactive Lantus Solostar 100 unit/mL (3 mL) subcutaneous insulin pen RxNorm: 822233 20 Unit(s) SQ QD No Start Date 08/03/2014 Inactive aspirin 81 mg tablet RxNorm: 867389 1 Tablet(s) PO QD No Start Date 0 08/03/2014 Inactive metformin 500 mg tablet RxNorm: 091412 1 Tablet(s) PO BID No Start Date 07/28/2013 Inactive glimepiride 4 mg tablet RxNorm: 429190 1 Tablet(s) PO BID No Start Date 01/16/2015 Inactive glimepiride 4 mg tablet RxNorm: 467344 1 Tablet(s) PO QD No Start D ate 08/03/2014 Inactive levothyroxine 25 mcg tablet RxNorm: 187980 1 Tablet(s) PO QD No Sta rt Date 08/10/2014 Inactive doxycycline oral RxNorm: 81229 oral No Start Date 05/12/2019 Inac tive aspirin 81 mg tablet RxNorm: 790412 1 Tablet(s) PO QD No Start Date 0 07/21/2018 Inactive isosorbide mononitrate ER 60 mg tablet,extended release 24 h r RxNorm: 762383 1 Tablet(s) PO BID No Start Date 01/16/2015 Inactive metformin 500 mg tablet RxNorm: 746467 1 Tablet(s) PO BID No Start Date 04/27/2013 Inactive Plavix 75 mg tablet RxNorm: 929720 1 Tablet(s) PO QD No Start Date Inactive glimepiride 4 mg tablet RxNorm: 915831 1 Tablet(s) PO QPM No Start Date 02/21/2019 Inactive Vytorin 10-40 10 mg-40 mg tablet RxNorm: 3916733 1 Tablet(s) PO QHS No Start Date 08/03/2014 Inactive indomethacin 50 mg capsule RxNorm: 155945 1 Capsule(s) PO QHS No St art Date 01/16/2015 Inactive glimepiride 4 mg tablet RxNorm: 504208 1 Tablet(s) PO BID No Start Date 07/28/2013 Inactive Levemir FlexTouch 100 unit/mL (3 mL) subcutaneous insulin pe n RxNorm: 595055 20 Unit(s) SQ QD No Start Date 04/30/2015 Inactive lisinopril 20 mg tablet RxNorm: 404046 1 Tablet(s) PO BID No Start Date 04/27/2013 Inactive Lantus Solostar SubQ RxNorm: Subcutaneous No Start Date 03/15/2013 I nactive Zantac 150 mg tablet RxNorm: 480995 1 Tablet(s) PO QHS No Start Date 10/11/2019 Inactive allopurinol 300 mg tablet RxNorm: 654370 1 Tablet(s) PO QD No Start Date 08/03/2014 Inactive Fish Oil 1,000 mg capsule RxNorm: 1 Capsule(s) PO QD No Start Date 02/21/2019 Inactive indomethacin 50 mg capsule RxNorm: 105994 1 Capsule(s) PO BID No St art Date 04/20/2018 Inactive levothyroxine 50 mcg tablet RxNorm: 761332 1 Tablet(s) PO QD No rt Date 08/10/2014 Inactive glimepiride 4 mg tablet RxNorm: 839629 1 Tablet(s) PO BID No Start Date 03/15/2013 Inactive indomethacin 50 mg capsule RxNorm: 193713 1 Capsule(s) PO QHS No art Date 04/27/2013 Inactive Medication Administered No Medication Administered data Immunizations Vaccine Codes Date Status Influenza CVX: 135 04/21/2018 Complete Influenza CVX: 135 04/22/2017 Complete Results Observation Observation Code Item Item Code Result Date S ervice Location [facility] 93610 Cholesterol 209 mg/dL 09/17/2016 Unkno wn [facility] 47528 Triglyceride 111 mg/dL 09/17/2016 Unkn own [facility] 51036 HDL CHOLESTEROL 50 mg/dL 09/17/2016 U nknown [facility] 71136 Chol/HDL Ratio 4.18 ratio 09/17/2016 U nknown [facility] 62482 NON-HDL Chol 159 mg/dL 09/17/2016 Unkn own [facility] 37823 LDL Cholesterol 137 mg/dL 09/17/2016 U nknown MEAN GLUC 1839103 Calc Mean Gluc 151 mg/dL 09/17/2016 Unkn own COMPREHENSIVE METABOLIC 65144 AST 23 U/L 2016 Unknown COMPREHENSIVE METABOLIC 57574 ALT 19 U/L 2016 Unknown [facility] 97762 BUN 15 mg/dL 2016 Unknown COMPREHENSIVE METABOLIC 95482 ALBUMIN 4.3 g/dL 2016 Unknown COMPREHENSIVE METABOLIC 73068 CHLORIDE 103 mmol/L 09/17 Unknown COMPREHENSIVE METABOLIC 31019 Bili Total 0.6 mg/dL 09/17 Unknown COMPREHENSIVE METABOLIC 47178 ALK PHOS 60 U/L 2016 Unknown COMPREHENSIVE METABOLIC 68473 SODIUM 140 mmol/L 09/17 Unknown COMPREHENSIVE METABOLIC 00918 CREATININE 1.03 mg/dL 09/04 Unknown COMPREHENSIVE METABOLIC 54077 CALCIUM 9.5 mg/dL 2016 Unknown COMPREHENSIVE METABOLIC 78484 POTASSIUM 3.9 mmol/L 09/17 Unknown COMPREHENSIVE METABOLIC 51685 Total Protein 6.9 g/dL Unknown COMPREHENSIVE METABOLIC 96075 Glucose 94 mg/dL 2016 Unknown COMPREHENSIVE METABOLIC 21816 Bicarbonate 28 mmol/L 09/04 Unknown COMPREHENSIVE METABOLIC 61434 AGAP 9 mmol/L 2016 Unknown GFR CALC 5079459 GFR Non Afr Amr >60 mL/min 09/17/2016 Un known GFR CALC 8949511 GFR Afr Amr >60 mL/min 09/17/2016 Unknow n THYROID STIMULATING HORMONE 45985 TSH 4.260 uIU/mL 09/17/2016 Unknown GLYCOSYLATED HEMOGLOBIN TEST 60755 Hgb A1c 07281-2 6.9 % 0 09/17/2016 Unknown FREE T4 89692 T4 Free 1.02 ng/dL 09/17/2016 Unknown COMPLETE BLOOD COUNT 4049821 WBC 8.6 10e9/L 07/26/19 16 Unknown COMPLETE BLOOD COUNT [id number] RBC 4.86 10e12/L 2015 Unknown COMPLETE BLOOD COUNT 0377207 HGB 14.6 g/dL 6 Unknown COMPLETE BLOOD COUNT 5363367 HCT DET 43.1 % 6 Unknown COMPLETE BLOOD COUNT [id number] MCV 88.7 fL 6 Unknown COMPLETE BLOOD COUNT 6937641 MCH 30.0 pg 6 Unknown COMPLETE BLOOD COUNT 3728452 MCHC 33.9 g/dL 6 Unknown COMPLETE BLOOD COUNT [id number] PLT 267 10e9/L 07/26/19 16 Unknown COMPLETE BLOOD COUNT 8214787 MPV 11.5 fL 6 Unknown COMPLETE BLOOD COUNT 6143618 SAM % 64.8 % 6 Unknown COMPLETE BLOOD COUNT 2526088 LY % 16.8 % 6 Unknown COMPLETE BLOOD COUNT 6064435 MON % 12.5 % 6 Unknown COMPLETE BLOOD COUNT 5455589 EOS % 5.6 % 6 Unknown COMPLETE BLOOD COUNT 3946170 BASO % 0.3 % 6 Unknown COMPLETE BLOOD COUNT 9706452 RDW 13.4 % 6 Unknown COMPLETE BLOOD COUNT [id number] ABS SAM 5.57 10e9/L 016 Unknown COMPLETE BLOOD COUNT [id number] ABS LYMPH 1.44 10e9/L 016 Unknown COMPLETE BLOOD COUNT [id number] ABS MONO 1.08 10e9/L 016 Unknown COMPLETE BLOOD COUNT [id number] ABS EOS 0.48 10e9/L 016 Unknown COMPLETE BLOOD COUNT [id number] ABS BASO 0.03 10e9/L 016 Unknown COMPLETE BLOOD COUNT [id number] RDW-SD 42.9 fL 6 Unknown PSA EQUIMOLAR MATT 04992 PSA EQ 0.78 NG/ML 6 Unknown THYROID STIMULATING HORMONE 51834 TSH 5.292 uIU/ML 07/26/2015 Unknown GLYCOSYLATED HEMOGLOBIN TEST 01472 A1C HPLC 06412-0 7.0 % 0 07/26/2015 Unknown GFR CALC 2293230 GFR AA >60 ML/MIN 07/26/2015 Unknown GFR CALC 6805109 GFR NON-AA >60 ML/MIN 07/26/2015 Unknown [facility] 72413 HDL TEST 64 MG/DL 07/26/2015 Unknown [facility] 93870 TRIG 58 MG/DL 07/26/2015 Unknown [facility] 79685 TEST LDL 49 MG/DL 07/26/2015 Unknown [facility] 66090 CHOL 125 MG/DL 07/26/2015 Unknown [facility] 03692 RCHOL/HDL 1.95 RATIO 07/26/2015 Unknow n [facility] 72527 NON-HDL CH 61 MG/DL 07/26/2015 Unknow n COMPREHENSIVE METABOLIC 68233 AST 25 U/L 2015 Unknown COMPREHENSIVE METABOLIC 02826 ALT 23 IU/L 2015 Unknown COMPREHENSIVE METABOLIC 00230 BUN 18 MG/DL 2015 Unknown COMPREHENSIVE METABOLIC 08650 ALBUMIN 4.6 GM/DL 2015 Unknown COMPREHENSIVE METABOLIC 02728 CHLORIDE 100 MMOL/L 07/26 Unknown COMPREHENSIVE METABOLIC 32895 BILI TOT 0.5 MG/DL 2015 Unknown COMPREHENSIVE METABOLIC 87495 ALK PHOS 49 U/L 2015 Unknown COMPREHENSIVE METABOLIC 67055 SODIUM 137 MMOL/L 07/26 Unknown COMPREHENSIVE METABOLIC 92974 CREATININE 1.06 MG/DL 07/08 Unknown COMPREHENSIVE METABOLIC 21570 CALCIUM 9.5 MG/DL 2015 Unknown COMPREHENSIVE METABOLIC 34545 POTASSIUM 4.5 MMOL/L 07/26 Unknown COMPREHENSIVE METABOLIC 73295 PROT TOT 6.5 GM/DL 2015 Unknown COMPREHENSIVE METABOLIC 87056 Glucose 109 MG/DL 2015 Unknown COMPREHENSIVE METABOLIC 88085 BICARB 29 MMOL/L 2015 Unknown COMPREHENSIVE METABOLIC 98893 ANION GAP 8 MEQ/L 2015 Unknown FREE T4 63616 FREE T4 1.11 NG/DL 07/26/2015 Unknown CULTURE & SENSITIVITY 34198 PROTEIN UR NEG 015 Unknown [facility] SENSITIVITY 33695 HEMGLBN UR TR 015 Unknown [facility]URE [facility] SENSITIVITY 78032 GLUCOSE UR NEG 015 Unknown [facility] SENSITIVITY 91462 KETONES UR NEG 015 Unknown CULTURE & SENSITIVITY 69659 PH U 6.5 01/25/20 15 Unknown CULTURE & SENSITIVITY 12024 SP GR U 1.013 01/25/20 15 Unknown CULTURE & SENSITIVITY 13803 BILRUBN UR NEG 015 Unknown CULTURE & SENSITIVITY 00293 LEUKO UR NEG 01/25/20 15 Unknown CULTURE & SENSITIVITY 46910 NITRITE UR NEG 015 Unknown MICR CUL? [id number] SP TO JOHANA? NO 01/24/2015 Unknown MICR CUL? 8482046 APPEAR UR NORMAL 01/24/2015 Unknown MICR CUL? 0366015 RBC/uL 2.2 01/24/2015 Unknown MICR CUL? 1091894 WBC/uL 2.8 01/24/2015 Unknown MICR CUL? 1717155 SQ EPI/uL 1.0 01/24/2015 Unknown MICR CUL? 6805088 HYALCST/uL 0.25 01/24/2015 Unknown MICR CUL? 9691594 WBC /HPF 1 01/24/2015 Unknown MICR CUL? 2707026 RBC /HPF 0 01/24/2015 Unknown GLYCOSYLATED HEMOGLOBIN TEST 27128 A1C HPLC 34204-7 6.6 % 0 01/17/2015 Unknown COMPLETE BLOOD COUNT [id number] WBC 10.1 10e9/L 015 Unknown COMPLETE BLOOD COUNT 0944375 RBC 4.60 10e12/L 2014 Unknown COMPLETE BLOOD COUNT 6844683 HGB 14.0 g/dL 5 Unknown COMPLETE BLOOD COUNT 6002645 HCT DET 39.9 % 5 Unknown COMPLETE BLOOD COUNT 4800640 MCV 86.7 fL 5 Unknown COMPLETE BLOOD COUNT 7808000 MCH 30.4 pg 5 Unknown COMPLETE BLOOD COUNT 1878644 MCHC 35.1 g/dL 5 Unknown COMPLETE BLOOD COUNT 0755200 PLT 252 10e9/L 01/18/20 15 Unknown COMPLETE BLOOD COUNT [id number] MPV 11.4 fL 5 Unknown COMPLETE BLOOD COUNT 6670251 SAM % 72.9 % 5 Unknown COMPLETE BLOOD COUNT 8421834 LY % 13.6 % 5 Unknown COMPLETE BLOOD COUNT 5295873 MON % 10.2 % 5 Unknown COMPLETE BLOOD COUNT 1978839 EOS % 3.1 % 5 Unknown COMPLETE BLOOD COUNT 8777137 BASO % 0.2 % 5 Unknown COMPLETE BLOOD COUNT 0634052 RDW 13.6 % 5 Unknown COMPLETE BLOOD COUNT [id number] ABS SAM 7.36 10e9/L 015 Unknown COMPLETE BLOOD COUNT 1818534 ABS LYMPH 1.37 10e9/L 015 Unknown COMPLETE BLOOD COUNT 5969648 ABS MONO 1.03 10e9/L 015 Unknown COMPLETE BLOOD COUNT 2417400 ABS EOS 0.31 10e9/L 015 Unknown COMPLETE BLOOD COUNT [id number] ABS BASO 0.02 10e9/L 015 Unknown COMPLETE BLOOD COUNT 4585631 RDW-SD 42.4 fL 01/17/201 5 Unknown GFR CALC 2884913 GFR AA 51.0L ML/MIN 01/17/2015 Unknow n GFR CALC 1136639 GFR NON-AA 42.0L ML/MIN 01/17/2015 Unkno wn FREE T4 10601 FREE T4 1.30 NG/DL 01/17/2015 Unknown THYROID STIMULATING HORMONE 18785 TSH 4.029 uIU/ML 01/17/2015 Unknown COMPREHENSIVE METABOLIC 86642 AST 28 U/L 2014 Unknown COMPREHENSIVE METABOLIC 70418 ALT 25 IU/L 2014 Unknown COMPREHENSIVE METABOLIC 22803 BUN 21 MG/DL 2014 Unknown COMPREHENSIVE METABOLIC 09136 ALBUMIN 4.7 GM/DL 2014 Unknown COMPREHENSIVE METABOLIC 76379 CHLORIDE 102 MMOL/L 01/17 Unknown COMPREHENSIVE METABOLIC 93550 BILI TOT 0.6 MG/DL 2014 Unknown COMPREHENSIVE METABOLIC 84089 ALK PHOS 44 U/L 2014 Unknown COMPREHENSIVE METABOLIC 59809 SODIUM 137 MMOL/L 01/17 Unknown COMPREHENSIVE METABOLIC 12157 CREATININE 1.62 MG/DL 01/04 Unknown COMPREHENSIVE METABOLIC 19072 CALCIUM 9.7 MG/DL 2014 Unknown COMPREHENSIVE METABOLIC 88873 POTASSIUM 4.5 MMOL/L 01/17 Unknown COMPREHENSIVE METABOLIC 26127 PROT TOT 6.5 GM/DL 2014 Unknown COMPREHENSIVE METABOLIC 43095 Glucose 136 MG/DL 2014 Unknown COMPREHENSIVE METABOLIC 72900 BICARB 24 MMOL/L 2014 Unknown COMPREHENSIVE METABOLIC 22782 ANION GAP 11 MEQ/L 2014 Unknown VITAMIN B 12 58193 VIT B 12 482 PG/ML 01/17/2015 Unknow n URIC ACID 85577 URIC ACID 8.5 MG/DL 08/09/2014 Unknown COMPREHENSIVE METABOLIC 16562 AST 27 U/L 2014 Unknown COMPREHENSIVE METABOLIC 04748 ALT 26 IU/L 2014 Unknown COMPREHENSIVE METABOLIC 16203 BUN 17 MG/DL 2014 Unknown COMPREHENSIVE METABOLIC 08125 ALBUMIN 5.0 GM/DL 2014 Unknown COMPREHENSIVE METABOLIC 40011 CHLORIDE 101 MMOL/L 08/09 Unknown COMPREHENSIVE METABOLIC 91212 BILI TOT 0.7 MG/DL 2014 Unknown COMPREHENSIVE METABOLIC 22006 ALK PHOS 53 U/L 2014 Unknown COMPREHENSIVE METABOLIC 74642 SODIUM 136 MMOL/L 08/09 Unknown COMPREHENSIVE METABOLIC 35314 CREATININE 1.14 MG/DL 09/2014 Unknown COMPREHENSIVE METABOLIC 09526 CALCIUM 9.8 MG/DL 2014 Unknown COMPREHENSIVE METABOLIC 76909 POTASSIUM 4.1 MMOL/L 08/09 Unknown COMPREHENSIVE METABOLIC 51054 PROT TOT 7.5 GM/DL 2014 Unknown COMPREHENSIVE METABOLIC 38548 Glucose 110 MG/DL 2014 Unknown COMPREHENSIVE METABOLIC 36981 BICARB 30 MMOL/L 2014 Unknown COMPREHENSIVE METABOLIC 27497 ANION GAP 5 MEQ/L 2014 Unknown GFR CALC 1439617 GFR AA >60 ML/MIN 08/09/2014 Unknown GFR CALC 2584903 GFR NON-AA >60 ML/MIN 08/09/2014 Unknown FREE T4 07322 FREE T4 1.14 NG/DL 08/09/2014 Unknown GLYCOSYLATED HEMOGLOBIN TEST 89469 A1C HPLC 43047-5 6.8 % 0 08/09/2014 Unknown COMPLETE BLOOD COUNT [id number] WBC 5.9 10e9/L 08/09/19 15 Unknown COMPLETE BLOOD COUNT [id number] RBC 5.04 10e12/L 2014 Unknown COMPLETE BLOOD COUNT 6600303 HGB 15.2 g/dL 5 Unknown COMPLETE BLOOD COUNT [id number] HCT DET 44.3 % 5 Unknown COMPLETE BLOOD COUNT [id number] MCV 87.9 fL 5 Unknown COMPLETE BLOOD COUNT [id number] MCH 30.2 pg 5 Unknown COMPLETE BLOOD COUNT [id number] MCHC 34.3 g/dL 5 Unknown COMPLETE BLOOD COUNT [id number] PLT 262 10e9/L 08/09/19 15 Unknown COMPLETE BLOOD COUNT [id number] MPV 10.9 fL 5 Unknown COMPLETE BLOOD COUNT [id number] SAM % 58.7 % 5 Unknown COMPLETE BLOOD COUNT [id number] LY % 21.5 % 5 Unknown COMPLETE BLOOD COUNT [id number] MON % 14.0 % 5 Unknown COMPLETE BLOOD COUNT [id number] EOS % 5.3 % 5 Unknown COMPLETE BLOOD COUNT [id number] BASO % 0.5 % 5 Unknown COMPLETE BLOOD COUNT [id number] RDW 13.1 % 5 Unknown COMPLETE BLOOD COUNT [id number] ABS SAM 3.46 10e9/L 015 Unknown COMPLETE BLOOD COUNT [id number] ABS LYMPH 1.27 10e9/L 015 Unknown COMPLETE BLOOD COUNT [id number] ABS MONO 0.83 10e9/L 015 Unknown COMPLETE BLOOD COUNT [id number] ABS EOS 0.31 10e9/L 015 Unknown COMPLETE BLOOD COUNT [id number] ABS BASO 0.03 10e9/L 015 Unknown COMPLETE BLOOD COUNT [id number] RDW-SD 41.2 fL 5 Unknown THYROID STIMULATING HORMONE 62431 TSH 5.395 uIU/ML 08/09/2014 Unknown LIPID GROUP 85052 HDL TEST 52 MG/DL 08/09/2014 Unknown [facility] 30199 TRIG 113 MG/DL 08/09/2014 Unknown [facility] GROUP 48701 TEST LDL 158 MG/DL 08/09/2014 Unknown [facility] 13037 CHOL 233 MG/DL 08/09/2014 Unknown [facility] GROUP 12313 RCHOL/HDL 4.48 RATIO 08/09/2014 Unknow n LIP[facility] GROUP 13512 NON-HDL CH 181 MG/DL 08/09/2014 Unknow n COMPLETE BLOOD COUNT [id number] WBC 6.8 10e9/L 09/09/19 14 Unknown COMPLETE BLOOD COUNT [id number] RBC 5.18 10e12/L 2013 Unknown COMPLETE BLOOD COUNT [id number] HGB 15.2 g/dL 4 Unknown COMPLETE BLOOD COUNT [id number] HCT DET 44.7 % 4 Unknown COMPLETE BLOOD COUNT [id number] MCV 86.3 fL 4 Unknown COMPLETE BLOOD COUNT [id number] MCH 29.3 pg 4 Unknown COMPLETE BLOOD COUNT [id number] MCHC 34.0 g/dL 4 Unknown COMPLETE BLOOD COUNT [id number] PLT 236 10e9/L 09/09/19 14 Unknown COMPLETE BLOOD COUNT [id number] MPV 11.0 fL 4 Unknown COMPLETE BLOOD COUNT [id number] SAM % 58.2 % 4 Unknown COMPLETE BLOOD COUNT [id number] LY % 21.9 % 4 Unknown COMPLETE BLOOD COUNT [id number] MON % 12.5 % 4 Unknown COMPLETE BLOOD COUNT [id number] EOS % 7.3 % 4 Unknown COMPLETE BLOOD COUNT [id number] BASO % 0.1 % 4 Unknown COMPLETE BLOOD COUNT [id number] RDW 13.6 % 4 Unknown COMPLETE BLOOD COUNT [id number] ABS SAM 3.96 10e9/L 014 Unknown COMPLETE BLOOD COUNT [id number] ABS LYMPH 1.49 10e9/L 014 Unknown COMPLETE BLOOD COUNT [id number] ABS MONO 0.85 10e9/L 014 Unknown COMPLETE BLOOD COUNT [id number] ABS EOS 0.50 10e9/L 014 Unknown COMPLETE BLOOD COUNT [id number] ABS BASO 0.01 10e9/L 014 Unknown COMPLETE BLOOD COUNT [id number] RDW-SD 42.3 fL 4 Unknown COMPREHENSIVE METABOLIC 86189 AST 27 U/L 2013 Unknown COMPREHENSIVE METABOLIC 02708 ALT 30 IU/L 2013 Unknown COMPREHENSIVE METABOLIC 84818 BUN 16 MG/DL 2013 Unknown COMPREHENSIVE METABOLIC 49268 ALBUMIN 4.9 GM/DL 2013 Unknown COMPREHENSIVE METABOLIC 37231 CHLORIDE 99 MMOL/L 2013 Unknown COMPREHENSIVE METABOLIC 26042 BILI TOT 0.7 MG/DL 2013 Unknown COMPREHENSIVE METABOLIC 88206 ALK PHOS 53 U/L 2013 Unknown COMPREHENSIVE METABOLIC 01988 SODIUM 137 MMOL/L 09/08 Unknown COMPREHENSIVE METABOLIC 00389 CREATININE 1.01 MG/DL 11/2013 Unknown COMPREHENSIVE METABOLIC 06328 CALCIUM 10.0 MG/DL 09/08 Unknown COMPREHENSIVE METABOLIC 05152 POTASSIUM 4.4 MMOL/L 09/08 Unknown COMPREHENSIVE METABOLIC 78958 PROT TOT 7.1 GM/DL 2013 Unknown COMPREHENSIVE METABOLIC 71845 Glucose 148 MG/DL 2013 Unknown COMPREHENSIVE METABOLIC 63229 BICARB 30 MMOL/L 2013 Unknown COMPREHENSIVE METABOLIC 65119 ANION GAP 8 MEQ/L 2013 Unknown GFR CALC 4427238 GFR AA >60 ML/MIN 09/08/2013 Unknown GFR CALC 6153407 GFR NON-AA >60 ML/MIN 09/08/2013 Unknown FREE T4 15194 FREE T4 1.08 NG/DL 09/08/2013 Unknown GLYCOSYLATED HEMOGLOBIN TEST 54276 A1C HPLC 37910-3 7.3 % 0 09/08/2013 Unknown THYROID STIMULATING HORMONE 77332 TSH 5.454 uIU/ML 09/08/2013 Unknown LIP[facility] GROUP 22223 HDL TEST 59 MG/DL 09/08/2013 Unknown L[facility] GROUP 50613 TRIG 92 MG/DL 09/08/2013 Unknown LIPID GROUP 86059 TEST LDL 83 MG/DL 09/08/2013 Unknown LIPID GROUP 01942 CHOL 160 MG/DL 09/08/2013 Unknown LIPID GROUP 00664 RCHOL/HDL 2.71 RATIO 09/08/2013 Unknow n VITAMIN B 12 FOLIC ACID 74404|86309 VIT B 12 467 PG/ML 12/2012 Unknown VITAMIN B 12 FOLIC ACID 91333|21594 FOLIC ACID 12.2 NG/ML Unknown VITAMIN B 12 FOLIC ACID 17295|86469 VIT B 12 467 PG/ML 12/2012 Unknown THYROID STIMULATING HORMONE 92494 TSH 4.557 uIU/ML 03/12/2013 Unknown HEMOGLOBIN A1C (GLYCOSYLATED) 6828461 A1C HPLC 15322-9 7.6 % 03/12/2013 Unknown VITAMIN D TOTAL (25 HYDROXY) 73043 VIT D TOTL 17 NG/ML 03/12/2013 Unknown FREE T4 12710 FREE T4 1.07 NG/DL 03/12/2013 Unknown URIC ACID 61917 URIC ACID 5.2 MG/DL 03/12/2013 Unknown Procedures Procedure Codes Date THER/PROPH/DIAG INJ SC/IM CPT-4: 62986 05/13/2019 TRIAMCINOLONE ACET INJ NOS CPT-4: J3301 05/13/2019 DEXAMETHASONE SODIUM PHOS CPT-4: J1100 05/13/2019 THER/PROPH/DIAG INJ SC/IM CPT-4: 52116 02/22/2019 TRIAMCINOLONE ACET INJ NOS CPT-4: J3301 02/22/2019 FLU VACC PRSV FREE INC ANTIG 65 AND OLDER CPT-4: 44956 04/21/2018 ADMIN INFLUENZA VIRUS VAC CPT-4: G0008 04/21/2018 PRESCRIP TRANSMIT VIA ERX SY CPT-4: G8553 04/21/2018 DESTRUCT PREMALG LESION (Cryosurgery) CPT-4: 20707 FLU VACC PRSV FREE INC ANTIG 65 AND OLDER CPT-4: 55708 04/22/2017 ADMIN INFLUENZA VIRUS VAC CPT-4: G0008 04/22/2017 PRESCRIP TRANSMIT VIA ERX SY CPT-4: G8553 10/10/2016 PRESCRIP TRANSMIT VIA ERX SY CPT-4: G8553 08/29/2015 ROUTINE VENIPUNCTURE CPT-4: 18449 07/26/2015 ASSAY OF FREE THYROXINE CPT-4: 54001 07/26/2015 ASSAY THYROID STIM HORMONE CPT-4: 86029 07/26/2015 COMPREHEN METABOLIC PANEL CPT-4: 49015 07/26/2015 COMPLETE CBC W/AUTO DIFF WBC CPT-4: 36441 07/26/2015 LIPID PANEL CPT-4: 49441 07/26/2015 ASSAY OF PSA TOTAL CPT-4: 12083 07/26/2015 A1C HPLC CPT-4: 63715 07/26/2015 ROUTINE VENIPUNCTURE CPT-4: 28041 01/17/2015 ASSAY OF FREE THYROXINE CPT-4: 04944 01/17/2015 ASSAY THYROID STIM HORMONE CPT-4: 38830 01/17/2015 COMPREHEN METABOLIC PANEL CPT-4: 21586 01/17/2015 COMPLETE CBC W/AUTO DIFF WBC CPT-4: 00528 01/17/2015 A1C HPLC CPT-4: 07294 01/17/2015 VITAMIN B-12 CPT-4: 98857 01/17/2015 PPPS, subseq visit CPT-4: G0439 08/04/2014 PRESCRIP TRANSMIT VIA ERX SY CPT-4: G8553 02/18/2014 FLUZONE, 5ML (Medicare) CPT-4: Q2038 07/22/2013 ADMIN INFLUENZA VIRUS VAC CPT-4: G0008 07/22/2013 PRESCRIP TRANSMIT VIA ERX SY CPT-4: G8553 04/28/2013 ROUTINE VENIPUNCTURE CPT-4: 90588 03/12/2013 VITAMIN D TOTAL (25 HYDROXY) CPT-4: 05928 03/12/2013 VITAMIN B 12 FOLIC ACID CPT-4: 09129|68152 03/12/2013 A1C GLYCOSYLATED HEMOGLOBIN TEST CPT-4: 15864 013 ASSAY OF BLOOD/URIC ACID CPT-4: 77940 03/12/2013 ASSAY OF FREE THYROXINE CPT-4: 57344 03/12/2013 ASSAY THYROID STIM HORMONE CPT-4: 99775 03/12/2013 CUR TOBACCO NON-USER CPT-4: G8457 03/11/2013 [...] 1: 156/70 Code: 8480-6 BMI: 35.0 Code: 43097-4 Heart Rate 1: 68 bpm Height: 5'10" Respiratory Rate: 20 bpm SpO2: 95% Tempera ture: 36.5 (C) / 97.7 (F) Weight: 244 lbs 04/21/2018 Blood Pressure 1: 124/80 Code: 8480-6 BMI: 34.4 Code: 13377-8 Heart Rate 1: 80 bpm Height: 5'10" Respiratory Rate: 20 bpm SpO2: 96% Tempera ture: 37.0 (C) / 98.6 (F) Weight: 240 lbs 01/06/2018 Blood Pressure 1: 138/82 Code: 8480-6 BMI: 33.9 Code: 45588-2 Heart Rate 1: 96 bpm Height: 5'10" Respiratory Rate: 24 bpm SpO2: 98% Tempera ture: 35.9 (C) / 96.6 (F) Weight: 236 lbs 10/22/2017 Blood Pressure 1: 144/70 Code: 8480-6 BMI: 34.7 Code: 63199-0 Heart Rate 1: 72 bpm Height: 5'10" Respiratory Rate: 20 bpm SpO2: 96% Tempera ture: 36.9 (C) / 98.4 (F) Weight: 242 lbs 04/22/2017 Blood Pressure 1: 146/82 Code: 8480-6 BMI: 32.9 Code: 17213-0 Heart Rate 1: 104 bpm Height: 5'10" Respiratory Rate: 20 bpm SpO2: 95% Tempera ture: 36.9 (C) / 98.5 (F) Weight: 229 lbs 10/10/2016 Blood Pressure 1: 124/64 Code: 8480-6 BMI: 32.9 Code: 72009-7 Heart Rate 1: 64 bpm Height: 5'10" [...] 1: 146/90 Code: 8480-6 BMI: 34.1 Code: 61443-0 Heart Rate 1: 80 bpm Height: 5'10" Respiratory Rate: 20 bpm Temperature: 36 .8 (C) / 98.2 (F) Weight: 238 lbs 01/17/2015 Blood Pressure 1: 116/60 Code: 8480-6 BMI: 32.7 Code: 30150-7 Heart Rate 1: 84 bpm Height: 5'10" Respiratory Rate: 20 bpm Temperature: 36 .7 (C) / 98.0 (F) Weight: 228 lbs 09/29/2014 Blood Pressure 1: 136/78 Code: 8480-6 BMI: 33.9 Code: 62123-7 Heart Rate 1: 80 bpm Height: 5'10" Respiratory Rate: 20 bpm Temperature: 36 .6 (C) / 97.9 (F) Weight: 236 lbs 08/04/2014 Blood Pressure 1: 132/70 Code: 8480-6 BMI: 32.9 Code: 52707-9 Heart Rate 1: 72 bpm Height: 5'10" Respiratory Rate: 20 bpm Temperature: 36 .7 (C) / 98.0 (F) Weight: 229 lbs 02/18/2014 Blood Pressure 1: 124/82 Code: 8480-6 Heart Rate 1: 82 bpm Respiratory Rate: 18 bpm Temperature: 36.4 (C) / 97.5 (F) Weight: 232 lbs 07/29/2013 Blood Pressure 1: 146/80 Code: 8480-6 BMI: 34.1 Code: 70449-7 Heart Rate 1: 64 bpm Height: 5'10" Respiratory Rate: 20 bpm Temperature: 36 .9 (C) / 98.5 (F) Weight: 238 lbs 05/26/2013 Blood Pressure 1: 142/90 Code: 8480-6 BMI: 34.0 Code: 88469-9 Heart Rate 1: 84 bpm Height: 5'10" Respiratory Rate: 20 bpm Temperature: 36 .7 (C) / 98.0 (F) Weight: 237 lbs 04/28/2013 Blood Pressure 1: 118/78 Code: 8480-6 BMI: 32.9 Code: 27060-6 Heart Rate 1: 74 bpm Height: 5'10" Respiratory Rate: 20 bpm Temperature: 36 .1 (C) / 97.0 (F) Weight: 229 lbs 03/11/2013 Blood Pressure 1: 146/80 Code: 8480-6 BMI: 31.5 Code: 59739-9 Heart Rate 1: 80 bpm Height: 6' [...] care Encounters Encounter Performer Location Codes Date ([id number]) OFFICE/OUTPATIENT VISIT EST Diagnosis: Esophageal reflux[ICD10: K21.9] Diagnosis: History of bladder cancer[ICD10: Z85.51] Xiomara BETTENCOURT [employer] CPT-4: 81345 12/07/2019 ([id number]) OFFICE/OUTPATIENT VISIT EST Diagnosis: DM w/o complication type II, uncontrolled[ICD10: E11.65] Diagnosis: Other dyspnea and respiratory abnormality[ICD10: R06.09] Xiomara BETTENCOURT [employer] CPT-4: 72741 10/27/2019 ([id number]) OFFICE/OUTPATIENT VISIT EST Diagnosis: Chronic obstructive pulmonary disease, unspecified[ICD10: J44.9] Diagnosis: DM w/o complication type II, uncontrolled[ICD10: E11.65] Diagnosis: Edema[ICD10: R60.9] Xiomara BETTENCOURT [employer] CPT-4: 53506 10/20/2019 ([id number]) OFFICE/OUTPATIENT VISIT EST Diagnosis: Other dyspnea and respiratory abnormality[ICD10: R06.09] Diagnosis: Obstructive sleep apnea[ICD10: G47.33] Diagnosis: Hypotension[ICD10: I95.9] Xiomaradaniel Bettencourt [facility] CPT -4: 46842 10/12/2019 ([id number]) OFFICE/OUTPATIENT VISIT EST Diagnosis: Upper respiratory infection[ICD10: J06.9] Epnniefede BRADLEY Elvia [employer] CPT-4: 72255 06/02/2019 ([id number]) OFFICE/OUTPATIENT VISIT EST Diagnosis: Sinusitis[ICD10: J32.9] Diagnosis: Allergic rhinitis[ICD10: J30.9] Pennie RENAEQUELINE Elvia [facility] [employer] CPT-4: 37577 05/13/2019 ([id number]) OFFICE/OUTPATIENT VISIT EST Diagnosis: Pneumonia[ICD10: J18.9] Pennie [facility] CPT-4: 03334 04/26/2019 ([id number]) OFFICE/OUTPATIENT VISIT EST Diagnosis: Acute sinusitis, unspecified[ICD10: J01.90] Pennie [facility] CPT-4: 65497 02/22/2019 ([id number]) OFFICE/OUTPATIENT VISIT EST Diagnosis: Cervicalgia[ICD10: M54.2] Xiomara [facility] CPT-4: 80019 11/25/2018 ([id number]) OFFICE/OUTPATIENT VISIT EST Diagnosis: Acute sinusitis, unspecified[ICD10: J01.90] Diagnosis: Myalgia, unspecified site[ICD10: M79.10] Diagnosis: Cervicalgia[ICD10: M54.2] [facility]: 18086 11/19/2018 ([id number]) OFFICE/OUTPATIENT VISIT EST Diagnosis: Low back pain[ICD10: M54.5] Diagnosis: Essential (primary) hypertension[ICD10: I10] Diagnosis: 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, 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] Diagnosis: Paroxysmal atrial fibrillation[ICD10: I48.0] Xiomara [facility] CPT-4: 80636 07/22/2018 ([id number]) OFFICE/OUTPATIENT VISIT EST Diagnosis: Type 2 diabetes mellitus with diabetic neuropathy, unspecified[ICD10: E11.40] Diagnosis: Hyperlipidemia, unspecified[ICD10: E78.5] Diagnosis: Essential (primary) hypertension[ICD10: I10] Diagnosis: Chronic kidney disease, stage 1[ICD10: N18.1] Diagnosis: Benign prostatic hyperplasia with lower urinary tract symptoms[ICD10: N40.1] Diagnosis: FLU VACCINE[ICD10: Z23] Xiomara [facility] CPT-4: 90925 04/21/2018 OFFICE/OUTPATIENT VISIT EST Diagnosis: Type 2 diabetes mellitus with hyperglycemia[ICD10: E11.65] Diagnosis: Essential (primary) hypertension[ICD10: I10] Diagnosis: Mixed hyperlipidemia[ICD10: E78.2] Diagnosis: Other fatigue[ICD10: R53.83] Pennie Pizarro XIOMARA DelphineEdvin [employer] [facility] CPT-4: 51795 01/06/2018 ([id number]) OFFICE/OUTPATIENT VISIT EST Diagnosis: Type 2 diabetes mellitus with diabetic neuropathy, unspecified[ICD10: E11.40] Diagnosis: Essential (primary) hypertension[ICD10: I10] Diagnosis: Pain in right thigh[ICD10: M79.651] Diagnosis: Pain in left leg[ICD10: M79.605] Diagnosis: Localized swelling, mass and lump, left lower limb[ICD10: R22.42] Diagnosis: OSTEOARTHRISIS MULTI SITES[ICD10: M19.90] Diagnosis: FLU VACCINE[ICD10: Z23] Xiomara LARA DelphineEdvin [employer] [facility] CPT-4: 09625 04/22/2017 ([id number]) OFFICE/OUTPATIENT VISIT EST Diagnosis: Essential (primary) hypertension[ICD10: I10] Diagnosis: Type 2 diabetes mellitus with hyperglycemia[ICD10: E11.65] Diagnosis: Angina pectoris, unspecified[ICD10: I20.9] Xiomara Renonelson LARA DelphineEdvin [employer] [facility] CPT-4: 15444 10/10/2016 ([id number]) OFFICE/OUTPATIENT VISIT EST Diagnosis: Cough[ICD10: R05] Diagnosis: Wheezing[ICD10: R06.2] Diagnosis: Chronic obstructive pulmonary disease, unspecified[ICD10: J44.9] Shannan Gan [employer] [facility] CPT-4: 75811 08/31/2015 OFFICE/OUTPATIENT VISIT EST Diagnosis: Acute bronchitis, unspecified[ICD10: J20.9] Diagnosis: Wheezing[ICD10: R06.2] Kelsie LARA DelphineEdvin [facility] [employer] [facility] CPT-4: 84725 08/29/2015 ([id number]) OFFICE/OUTPATIENT VISIT EST Diagnosis: Type 2 diabetes mellitus with diabetic neuropathy, unspecified[ICD10: E11.40] Diagnosis: Hyperlipidemia, unspecified[ICD10: E78.5] Diagnosis: Essential (primary) hypertension[ICD10: I10] Diagnosis: Encounter for general adult medical examination without abnormal findings[ICD10: Z00.00] Xiomara [facility] CPT-4: 06117 07/26/2015 OFFICE/OUTPATIENT VISIT EST Diagnosis: Type 2 diabetes mellitus with hyperglycemia[ICD10: E11.65] Diagnosis: Unspecified osteoarthritis, unspecified site[ICD10: M19.90] Diagnosis: Other instability, right knee[ICD10: M25.361] Kelsie BETTENCOURT DO [facility] CPT-4: 82953 07/24/2015 ([id number]) OFFICE/OUTPATIENT VISIT EST Diagnosis: Pain in leg, unspecified[ICD10: M79.606] Diagnosis: Type 2 diabetes mellitus with diabetic neuropathy, unspecified[ICD10: E11.40] Xiomara AkersEdvin [facility] CPT-4: 05314 05/01/2015 ([id number]) OFFICE/OUTPATIENT VISIT EST Diagnosis: MALAISE AND FATIGUE[ICD9: 780.79] Diagnosis: 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, 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] Diagnosis: CAD[ICD9: 414.00] Diagnosis: ANEMIA NOS[ICD9: 285.9] Xiomara [facility] CPT-4: 46724 01/17/2015 ([id number]) OFFICE/OUTPATIENT VISIT EST Diagnosis: Skin lesion[ICD9: 709.9] Xiomara HANLINE Elvia [facility] CPT-4: 99235 09/29/2014 OFFICE/OUTPATIENT VISIT EST Diagnosis: GASTROENTERITIS[ICD9: 558.9] Diagnosis: GERD[ICD9: 530.81] Kelsie [facility] CPT-4: 28999 02/18/2014 ([id number]) OFFICE/OUTPATIENT VISIT EST Diagnosis: 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I, UNCONTROLLED[ICD9: 250.02] Xiomara HANLINE DelphineEdvin [facility] CPT-4: 46472 07/29/2013 ([id number]) OFFICE/OUTPATIENT VISIT EST Diagnosis: FLU VACCINE[ICD9: V04.81] Xiomara Renovondaer XIOMARADANIEL [facility] CPT-4: 85443 07/22/2013 ([id number]) OFFICE/OUTPATIENT VISIT EST Diagnosis: 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I, UNCONTROLLED[ICD9: 250.02] Diagnosis: HYPERTENSION[ICD9: 401.9] Xiomara [facility] CPT-4: 54906 05/26/2013 ([id number]) OFFICE/OUTPATIENT VISIT EST Diagnosis: MONONEURITIS[ICD9: 355.9] Diagnosis: RESTLESS LEGS SYNDROME[ICD9: 333.94] Diagnosis: HYPERTENSION[ICD9: 401.9] Diagnosis: CAD[ICD9: 414.00] Diagnosis: Weakness[ICD9: 780.79] Xi[facility] CPT-4: 85215 04/28/2013 ([id number]) OFFICE/OUTPATIENT VISIT EST Diagnosis: 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[ICD9: 250.01] Diagnosis: MONONEURITIS[ICD9: 355.9] Diagnosis: HYPERLIPIDEMIA NEC/NOS[ICD9: 272.4] Diagnosis: CAD[ICD9: 414.00] [facility] CPT-[facility]: 36722 03/12/2013 OFFICE/OUTPATIENT VISIT NEW Diagnosis: CAD[ICD9: 414.00] Diagnosis: HYPERLIPIDEMIA NEC/NOS[ICD9: 272.4] Diagnosis: HYPERTENSION[ICD9: 401.9] Diagnosis: Neuropathy[ICD9: 355.9] Diagnosis: RESTLESS LEGS SYNDROME[ICD9: 333.94] Ximoara [facility] CPT-4: 47566 03/11/2013 Plan of Care Planned Activity Notes [...] R06.09 10/27/2019 Appointment: Xiomara Bettencourt [facility]Ptel[facility] [facility] 10/27/2019 Patient Education: gabapentin- OptimizeRX Coupon [phone] [email or web address]/[email or web address] Completed 10/27/2019 Visit Diagnosis Plan: DM w/o [...] : J44.9 10/20/2019 Appointment: Xiomara Bettencourt WPtel[facility] [facility] 10/20/2019 Patient Education: furosemide- OptimizeRX Coupon [phone] https://[email or web address]/resources/[email or web address] Completed 10/20/2019 Visit Diagnosis Plan: Obstructive sleep [...] : I95.9 10/12/2019 Appointment: Xiomara Bettencourt WPtel: [address] [place] [address] TELEMEDICINE 10/12/2019 Appointment: Xiomara Bettencourt WPtel: [address] [place] [address] RESCHEDULED 09/23/2019 Care Plan: COMPREHEN METABOLIC PANEL SERGEI NC : 08189-5 Pending 09/20/2019 Care Plan: LIPID PANEL LOINC : 83458-0 Pending 09/20/2019 Care Plan: A1C HPLC LOINC : 03727-2 Pending 09/20/2019 Care Plan: COMPLETE CBC W/AUTO DIFF WBC LOINC : 86070-0 Pending 09/20/2019 Visit Diagnosis Plan: Upper respiratory infection Disc ussion: discussed that most likely viral. push fluids and rest through the week. patient has left over levaquin at home (5 days worth). instructed patient to start taking if he gets worse later this week and to call us next week if no improvement. ICD-9 : 465.9 ICD-10 : J06.9 06/02/2019 Appointment: Pennie Pizarro [address] [place] [address] ACUTE ILLNESS 06/02/2019 Visit Diagnosis Plan: Allergic [...] ICD-10 : J30.9 05/13/2019 Appointment: Pennie Pizarro [address] [place] [address] ACUTE ILLNESS 05/13/2019 Appointment: Xiomara Bettencourt WPtel: [phone] CANCELED 04/27/2019 Visit Diagnosis Plan: Pneumonia Discussion: will obtai n records from urgent care. instructed to finish out doxy. no rhonchi or crackles auscultated. symbicort sample given to patient with instructions to use bid. call office later this week with new or worsening symptoms. ICD-9 : 486 ICD-10 : J18.9 04/26/2019 Appointment: Pennie Pizarro [address] [place] [address] FOLLOW UP 04/26/2019 Visit Diagnosis Plan: Acute [...] ICD-10 : J01.90 02/22/2019 Appointment: Pennie Pizarro [address] [place] [address] ACUTE ILLNESS 02/22/2019 Patient Education: prednisone- OptimizeRX Coupon [id number] [phone] [email or web address]/[email or web address] Completed 02/22/2019 Visit Diagnosis Plan: Cervicalgia Discussion: Check Ce rvical Spine X-ray Will likely need PT ICD-9 : 723.1 ICD-10 : M54.2 11/25/2018 Appointment: Xiomara Bettencourt WPtel: [phone] [phone] ACUTE ILLNESS 11/25/2018 Visit Plan: Saline nasal [...] prn. Tyle... 11/19/2018 Appointment: Xiomara Bettencourttel: [phone] [facility] [facility] 11/19/2018 Patient Education: baclofen- OptimizeRX Coupon [phone] https://[email or web address]/[email or web address]/getResource/[email or web address] Completed 11/19/2018 Visit Diagnosis Plan: Paroxysmal atrial [...] I10 07/22/2018 Appointment: Xiomara Bettencourt WPtel: [phone] [facility] [facility] FO[facility] 07/22/2018 Visit Diagnosis [...] Trial of flomax Call in 1 mo [facility] on how doing Follow Up: 4 months ICD-9 : 600.21 ICD-10 : N40.1 04/21/2018 Appointment: Xiomara Bettencourt WPtel: [facility] FOLLOW UP 04/21/2018 Patient Education: Patient [...] ICD-10 : E78.2 01/06/2018 Appointment: Pennie Pizarro [address] [place] [address] MEDICATION REVIEW 01/06/2018 Patient Education: Patient Medication Summary Completed 01/06/2018 Appointment: Xiomara Bettencourt WPtel: [address] [place] [address] US NO SHOW 01/05/2018 Appointment: Xiomara Bettencourt WPtel: [address] [place] [address] US CANCELED 12/31/2017 Visit Diagnosis Plan: Actinic keratosis Discussion: Cr yotherapy as above but will see derm if lesions do not resolve ICD-9 : 702.0 ICD-10 : L57.0 10/22/2017 Appointment: Xiomara Bettencourt WPtel: [address] [place] [address] ACUTE ILLNESS 10/22/2017 Patient Education: Patient Medication [...] : M79.605 04/22/2017 Appointment: Xiomara Bettencourt WPtel: [facility] [facility] 04/22/2017 Patient Education: Patient Medication Summary Completed 04/22/2017 Patient Education: Patient Medication Summary Completed 04/16/2017 Care Plan: COMPREHEN METABOLIC PANEL SERGEI NC : 61214-9 Pending 04/16/2017 Care Plan: LIPID PANEL LOINC : 36607-0 Pending 04/16/2017 Care Plan: CBC Pending 04/16/2017 Care Plan: A1C HPLC LOINC : 85325-8 Pending 04/16/2017 Referral: Inocencio Goodson WPtel: [address] [place] [address] [id number] [place] Referral Appointment Confirmed 10/14/2016 Visit Diagnosis Plan: Type 2 diabetes mellitus with hy perglycemia Discussion: Continue toujeo Accuchecks BID Follow Up: 4 months ICD-9 : 250.02 ICD-10 : E11.65 10/10/2016 Visit Diagnosis Plan: Angina pectoris, unspecified Dis cussion: Continue imdur and see cardiology To ER if chest pain returns ICD-9 : 413.9 ICD-10 : I20.9 10/10/2016 Appointment: Xiomara Bettencourt WPtel: [phone] [facility] [facility] FOLLOW [facility] 10/10/2016 Patient Education: Patient Medication Summary Completed 10/10/2016 Patient Education: Patient Medication Summary Completed 09/16/2016 Care Plan: COMPREHEN METABOLIC PANEL SERGEI NC : 59937-4 Pending 09/16/2016 Care Plan: ASSAY THYROID STIM HORMONE Pen ding 09/16/2016 Care Plan: ASSAY OF FREE THYROXINE Pendin g 09/16/2016 Care Plan: LIPID PANEL LOINC : 31230-3 Pending 09/16/2016 Care Plan: CBC Pending 09/16/2016 Care Plan: A1C HPLC LOINC : 01614-0 Pending 09/16/2016 Visit Plan: CXR now to further evaluate symptoms Suspect viral since he has been on 2 rounds of antibiotics If chronic lung disease evident, will consider keeping on symbicort fci Sample inhaler given today with instructions on use Continue oral prednisone, would like to avoid injection if possible considering his DM status and he is stable right now Continue albuterol PRN Will call with CXR results 08/31/2015 Appointment: Shannan Grimes [address] [place] [address] 08/31 confirmed- SP ACUTE ILLNESS 08/31/2015 Patient Education: Patient Medication Summary Completed 08/31/2015 Visit Plan: Albuterol INH via SVN every 4 hours Prednisone 20 mg PO BID Notify for worsening symptoms 08/29/2015 Appointment: Kelsie Grubbs WPtel: [address] [place] [address] ACUTE ILLNESS 08/29/2015 Patient Education: Patient Medication Summary Completed 08/29/2015 Appointment: Xiomara Bettencourt WPtel: [address] [place], [place] [phone] US LAB 07/26/2015 Patient Education: Patient Medication Summary Completed 07/26/2015 Visit Plan: Return in am for fasting lab s - CBC, CMP, TSH, Free T4, HgbA1C Change Levemir to Toujeo - Continue 35 Units q am - sample given Start physical Therapy for increased quadriceps strengthening and decreased pain in knees, bilaterally. 07/24/2015 Appointment: Kelsie Grubbs WPtel: [address] [place], [place] [phone] 07/21 appt confirmed cn FOLLOW UP 07/24/19 16 Appointment: Kelsie Grubbs WPtel: [address] [place], [place] [phone] US FOLLOW UP 07/24/2015 Patient Education: Patient [...] with insulin 05/01/2015 Appointment: Xiomara Bettencourt WPtel: [address] [place] [address] 04/28 confirmed~ ACUTE ILLNESS 05/01/2015 Patient Education: Patient Medication Summary Completed 05/01/2015 Patient Education: Patient Medication Summary Completed 01/19/2015 Care Plan: URINALYSIS [place]O W/[place] : [id number] Pending 01/19/2015 Visit Plan: I have went [...] test 01/17/2015 Appointment: Xiomara Bettencourt WPtel: [address] [place] [address] 01/16 vm ACUTE ILLNESS 01/17/2015 Patient Education: Patient Medication Summary Completed 01/17/2015 Visit Plan: See Dr. Garvin for removal 09/29/2014 Appointment: Xiomara Bettencourt WPtel: [address] [place] [address] ACUTE ILLNESS 09/29/2014 Referral: Colt Garvin WPtel: [address] Referral Initiated 09/29/2014 Patient Education: Patient Medication Summary Completed 09/29/2014 Visit Plan: Check CBC, CMP, TSH, free T4 , HbA1C, Lipids Accuchecks daily alternating times Patient has been adjusting own meds and has not taken any cholesterol meds for sometime Will check into surgery on right knee at [facility] Check carotid dopplers 08/04/2014 Appointment: Xiomara Bettencourt WPtel: [address] [place] [address] Annual Well Visit 08/04/2014 Patient Education: Patient Medication Summary Completed 08/04/2014 Appointment: Kelsie Grubbs WPtel: [address] [place] [address] ACUTE ILLNESS 02/18/2014 Patient Education: Patient Medication Summary Completed 02/18/2014 Patient Education: [facility] - Saving AutoInj - 18+ - Dynamic Portal ID Completed 02/18/2014 Appointment: Xiomara Bettencourt WPtel: [address] [place], [place] [id number] LAB 09/08/2013 Visit Plan: Check fasting lab in 1mo Con tinue Lantus and accuchecks at least BID 07/29/2013 Appointment: Xiomara Bettencourt WPtel: [address] [place] [address] FOLLOW UP 07/29/2013 Patient Education: Patient Medication Summary Completed 07/29/2013 Appointment: Xiomara Bettencourt WPtel: [address] [place], [place] [id number] INJECTION 07/22/2013 Patient Education: Patient Medication Summary Completed 07/22/2013 Visit Plan: Pt has been self-adjusting m eds Stop metformin and amaryl Use Levemir 25u sc BID and call in 1wk with BS readings 05/26/2013 Appointment: Xiomara Bettencourt WPtel: [address] [place], [place] [phone] FOLLOW UP 05/26/2013 Patient Education: Patient Medication Summary Completed 05/26/2013 Visit Plan: DC Metformin Increase Lantus to 30u sc daily Change lisinopril to lisinopril HCT 20/25mg q AM Continue Gabapentin at current dose 04/28/2013 Appointment: Xiomara Bettencourt WPtel: [address] [place], [place] [phone] FOLLOW UP 04/28/2013 Patient Education: Patient Medication Summary Completed 04/28/2013 [facility]ment[facility] [phone] [id number] [facility] 03/12/2013 Patient Education: Patient Medication Summary Completed 03/12/2013 Visit Plan: Trial of neurontin 400mg q H S Obtain most recent lab results Change levemir to lantus per pt request Pt goes for sleep study tonite 03/11/2013 Appointment: [facility] Bettencourt [facility] [phone] [id number] 02/01paperwork mailed 03/10 confirmed with spouse NEW PATIENT 11/2012 Patient Education: Patient Medication Summary Completed 03/11/2013 Instructions Comment . Saline nasal flushes prn. Tylenol/Motr in prn headache. Notify if persists/symptoms worsening. . CXR now to further evaluate symptoms Suspect viral since he has been on 2 rounds of antibiotics If chronic lung disease evident, will consider keeping on symbicort fci Sample inhaler given today with instructions on [...] check into surgery on right knee at [facility] Check carotid dopplers . Check fasting lab [...]
--- OUTSIDE RECORDS SUMMARY | 2020-02-02 21:35 | XMS REPORT | CCD ---
Author Author Sheng Bettencourt D.O. Organization [facility] Address [address] [place] [address] Phone Care Team Providers Care Floor Layer Helper Name Role Phone PP Unavailable CCM Unavailable Summary Purpose Interface Exchange Insurance Providers Payer name Policy type / Coverage type Covered alliance party ID Effective Begin Date Effective End Date WPS MEDICARE PART B [place] Medicare Part B [id number] 2018 Unknown [facility] Medicare Part B [id number] 2018 Un known Family history Mother Diagnosis Age At Onset Diabetes mellitus Type 2 Unknown Hypercholesterolemia Unknown Father Diagnosis Age At Onset No Family Disease Entered N/A Social History Social History Element Codes Description Effective Dates Marital status Unknown 03/11/2013 Number of children Unknown 4 03/11/2013 Employment Unknown Retired 03/11/[address]: 0775658 Former smoker 03/11/[address]: 637072 Currently drinks alc ohol Socially 03/11/2013 Has [...] Fill Instructions Flomax 0.4 mg capsule RxNorm: 908240 TAKE TWO CAPSULES BY MOUTH EVERY EVENING 11/11/2019 No Stop Date Active glimepiride 2 mg tablet RxNorm: 581911 1 Tablet(s) Oral QD 10/27/19 20 No Stop Date Active gabapentin 400 mg capsule RxNorm: 861144 1 Capsule(s) Oral QPM 10/0604/24/2020 Active potassium chloride ER 20 mEq tablet,extended release RxNorm: 787749 1 Tablet(s) Oral QD to take with lasix 10/20/2019 10/26/2019 Inactive furosemide 40 mg tablet RxNorm: 494619 1 Tablet(s) Oral QAM for swelling 10/20/2019 10/26/2019 Inactive albuterol sulfate HFA 90 mcg/actuation aerosol inhaler RxNor m: 2476125 1-2 Puff(s) Inhalation as needed 10/12/2019 No Stop Date Active Zyrtec 10 mg tablet RxNorm: 8684398 1 Tablet(s) Oral QAM 10/12/2019 No Stop Date Active aspirin 81 mg tablet,delayed release RxNorm: 575534 1 Tablet(s) Oral QD 10/12/2019 No Stop Date Active Symbicort 160 mcg-4.5 mcg/actuation HFA aerosol inhaler RxNo rm: 1511739 2 Puff(s) Inhalation QD 10/12/2019 No Stop Date Active lisinopril 20 mg tablet RxNorm: 743908 1 Tablet(s) Oral QD 10/12/1901/10/2020 Active simvastatin 20 mg tablet RxNorm: 402573 1 Tablet(s) Ora l QD Needs updated fasting labs 09/20/2019 12/19/2019 Active Needs updated fa sting labs before 90 day refill Flomax 0.4 mg capsule RxNorm: 142438 TAKE TWO CAPSULES BY MOUTH EVERY EVENING 08/03/2019 11/10/2019 Inactive gabapentin 400 mg capsule RxNorm: 579255 TAKE ONE CAPSU LE BY MOUTH EVERY EVENING 08/02/2019 10/26/2019 Inactive simvastatin 20 mg tablet RxNorm: 875251 1 Tablet(s) Ora l QD Needs updated fasting labs 07/21/2019 08/19/2019 Inactive Needs updated fa sting labs before 90 day refill simvastatin 20 mg tablet RxNorm: 070028 1 Tablet(s) Ora l QD Needs updated fasting labs 06/23/2019 07/20/2019 Inactive Needs updated fa sting labs before 90 day refill Flomax 0.4 mg capsule RxNorm: 883730 1 Capsule(s) Oral QD 05/13/2019 10/19/2019 Inactive Flomax 0.4 mg capsule RxNorm: 990644 TAKE TWO CAPSULES BY MOUTH EVERY EVENING 03/19/2019 05/12/2019 Inactive Augmentin 500 mg-125 mg tablet RxNorm: 483793 1 Tablet(s) PO BID 03/03/2019 Inactive baclofen 10 mg tablet RxNorm: 594713 TAKE ONE TABLET BY MOUTH EVERY NIGHT AT BEDTIME FOR PAIN OR SPASMS 01/14/2019 05/12/2019 Inactive Flomax 0.4 mg capsule RxNorm: 835164 TAKE TWO CAPSULES BY MOUTH EVERY EVENING 01/12/2019 03/18/2019 Inactive gabapentin 400 mg capsule RxNorm: 092362 1 Capsule(s) PO QPM 201806/27/2019 Inactive baclofen 10 mg tablet RxNorm: 961806 1 Tablet(s) PO QHS for my n/spasm 12/15/2018 01/13/2019 Inactive simvastatin 20 mg tablet RxNorm: 808866 TAKE ONE TABLET BY MOUT H DAILY 12/11/2018 06/22/2019 Inactive OneTouch Ultra Blue Test Strip RxNorm: Use 1 rigoberto t strip three times daily to check blood sugar (Dx:E11.65) 12/07/2018 No Stop Date Active gabapentin 400 mg capsule RxNorm: 352778 TAKE ONE CAPSU LE BY MOUTH EVERY EVENING 12/04/2018 12/29/2018 Inactive baclofen 10 mg tablet RxNorm: 759201 1 Tablet(s) PO QHS for my n/spasm 11/19/2018 12/15/2018 Inactive Flomax 0.4 mg capsule RxNorm: 288715 2 Capsule(s) PO QPM 09/15/2018 0 12/13/2018 Inactive WOULD LIKE 90DS!!! gabapentin 400 mg capsule RxNorm: 078179 TAKE ONE CAPSU LE BY MOUTH EVERY EVENING 07/21/2018 10/18/2018 Inactive simvastatin 20 mg tablet RxNorm: 264670 1 Tablet(s) PO QD 06/15/2018 12/10/2018 Inactive Flomax 0.4 mg capsule RxNorm: 466264 TAKE TWO CAPSULES BY MOUTH EVERY EVENING 06/02/2018 09/15/2018 Inactive WOULD LIKE 90DS!!! Flomax 0.4 mg capsule RxNorm: 068106 2 Capsule(s) PO QPM 04/21/2018 1 07/20/2017 Inactive simvastatin 20 mg tablet RxNorm: 927014 1 Tablet(s) PO QD Take 1 tablet by mouth daily. Patient due for labwork before further refill. 04/06/20182017 Inactive simvastatin 20 mg tablet RxNorm: 267744 Tablet(s) TAKE ONE TABLET BY MOUTH DAILY 03/25/2018 06/15/2018 Inactive simvastatin 20 mg tablet RxNorm: 537180 Tablet(s) TAKE ONE TABLET BY MOUTH DAILY due for appt 12/29/2017 03/25/2018 Inactive simvastatin 20 mg tablet RxNorm: 542550 TAKE ONE TABLET BY MOUT H DAILY 09/03/2017 12/29/2017 Inactive simvastatin 20 mg tablet RxNorm: 398781 1 Tablet(s) PO QD 10/22/2016 11/18/2018 Inactive isosorbide mononitrate ER 60 mg tablet,extended release 24 h r RxNorm: 873419 1 Tablet(s) PO QD 10/22/2016 04/21/2017 Inactive isosorbide mononitrate ER 60 mg tablet,extended release 24 h r RxNorm: 431341 1 Tablet(s) PO QD 10/10/2016 10/21/2016 Inactive simvastatin 20 mg tablet RxNorm: 378790 1 Tablet(s) PO QD 10/10/2016 10/21/2016 Inactive gabapentin 400 mg capsule RxNorm: 374138 1 Capsule(s) PO QPM 201609/20/2016 Inactive Toujeo SoloStar 300 unit/mL (1.5 mL) subcutaneous insulin pe n RxNorm: 0268738 35 Unit(s) SQ QAM 07/23/2016 07/22/2016 Inactive Toujeo SoloStar 300 unit/mL (1.5 mL) subcutaneous insulin pe n RxNorm: 7502014 40 Unit(s) SQ QAM 09/01/2015 No Stop Date Active Symbicort 160 mcg-4.5 mcg/actuation HFA aerosol inhaler RxNo rm: 4425958 2 Puff(s) INH BID 08/31/2015 09/09/2015 Inactive prednisone 20 mg tablet RxNorm: 743249 1 Tablet(s) PO BID 08/29/2015 09/02/2015 Inactive albuterol sulfate 2.5 mg/3 mL (0.083 %) solution for n ebulization RxNorm: 714657 1 Unit(s) INH Q4H as needed 08/29/2015 10/09/2016 Inactive levothyroxine 75 mcg tablet RxNorm: 419953 1 Tablet(s) PO QD 201507/27/2015 Inactive levothyroxine 75 mcg tablet RxNorm: 434002 1 Tablet(s) PO QD 201511/18/2018 Inactive levothyroxine 75 mcg tablet RxNorm: 933485 1 Tablet(s) PO QD 201507/27/2015 Inactive lisinopril 20 mg-hydrochlorothiazide 25 mg tablet RxNorm: 19 7887 TAKE ONE TABLET BY MOUTH EVERY MORNING. REPLACES PLAIN LISINOPRIL 03/06/2015 04/21/2017 Inactive lisinopril 20 mg-hydrochlorothiazide 25 mg tablet RxNorm: 19 7887 TAKE ONE TABLET BY MOUTH EVERY MORNING. REPLACES PLAIN LISINOPRIL 09/08/2014 03/05/2015 Inactive allopurinol 100 mg tablet RxNorm: 713644 1 Tablet(s) PO BID 015 10/09/2016 Inactive [SAVINGS FOR NON-COVERED YULIA GS -- BIN:[id number], PCN: [id number], Group: [id number], ID# [id number], Questions: . THIS IS NOT INSURANCE.] levothyroxine 50 mcg tablet RxNorm: 419521 1 Tablet(s) PO QD 201407/26/2015 Inactive [AttnRPh: Saving apply/adjud icate RxGRP:SG20 RxBIN:[id number] RxPCN:HT ID#:[id number]] Zegerid 40 mg-1.1 gram capsule RxNorm: 839681 1 Capsule(s) PO QD 03/03/2014 Inactive [AttnRPh: Saving apply/adjud icate RxGRP:SG20 RxBIN:[id number] RxPCN:HT ID#:[id number]] ondansetron 8 mg disintegrating tablet RxNorm: 231555 1 Tablet(s) PO Q8H as needed for [...] 07/28/2013 Inactive gabapentin 400 mg capsule RxNorm: 481051 1 Capsule(s) PO QPM 201207/28/2013 Inactive gabapentin 400 mg capsule RxNorm: 093886 1 Capsule(s) PO QPM 201206/26/2013 Inactive lisinopril 20 mg-hydrochlorothiazide 25 mg tablet RxNorm: 82 3971 1 Tablet(s) PO QAM replaces plain lisinopril 04/28/2013 07/29/2013 Inactive gabapentin 400 mg capsule RxNorm: 832075 1 Capsule(s) PO QPM 201204/27/2013 Inactive gabapentin 400 mg capsule RxNorm: 374071 1 Capsule(s) PO QPM 201203/10/2013 Inactive gabapentin 400 mg capsule RxNorm: 443193 1 Capsule(s) PO QPM 201203/14/2013 Inactive Lantus Solostar 100 unit/mL (3 mL) Sub-Q Insulin Pen RxNorm: 607702 20 Unit(s) SQ QPM 03/11/2013 03/15/2013 Inactive Toujeo SoloStar 300 unit/mL (1.5 mL) subcutaneous insulin pe n RxNorm: 7603482 35 Unit(s) SQ QAM No Start Date Active omeprazole 20 mg capsule,delayed release RxNorm: 082072 1 Capsu le(s) PO QD No Start Date Active isosorbide mononitrate ER 60 mg tablet,extended release 24 h r RxNorm: 460365 1 Tablet(s) PO QD No Start Date Active Eliquis 5 mg tablet RxNorm: 6212627 1 Tablet(s) PO BID No Start Date Active metformin 500 mg tablet RxNorm: 893598 1 Tablet(s) PO BID No Start Da te Active levothyroxine 50 mcg tablet RxNorm: 196653 1 Tablet(s) PO QD No Start Date Active Norvasc 10 mg tablet RxNorm: 143170 1 Tablet(s) PO QHS No Start Date Active Toujeo SoloStar 300 unit/mL (1.5 mL) subcutaneous insulin pe n RxNorm: 2413906 30 Unit(s) SQ QAM No Start Date Active glimepiride 4 mg tablet RxNorm: 851205 1 Tablet(s) PO QHS No Start Date 07/26/2015 Inactive allopurinol 100 mg tablet RxNorm: 607877 1 Tablet(s) PO BID No Star t Date 08/10/2014 Inactive Lantus Solostar 100 unit/mL (3 mL) subcutaneous insulin pen RxNorm: 503818 30 Unit(s) SQ QD No Start Date 08/03/2014 Inactive Levemir FlexTouch 100 unit/mL (3 mL) subcutaneous insulin pe n RxNorm: 836512 25 Unit(s) SQ QAM No Start Date 07/23/2015 Inactive Lantus 100 unit/mL Sub-Q RxNorm: 635859 30 Unit(s) SQ QHS No Start Date 05/25/2013 Inactive Lantus Solostar 100 unit/mL (3 mL) Sub-Q Insulin Pen RxNorm: 907572 20 Unit(s) SQ QPM No Start Date 03/10/2013 Inactive OneTouch Ultra Blue Test Strip RxNorm: Use 1 rigoberto t strip three times daily to check blood sugar (Dx:E11.65) No Start Date 12/06/2018 Inactive Levemir FlexTouch 100 unit/mL (3 mL) subcutaneous insulin pe n RxNorm: 135813 30- 35 Unit(s) SQ QAM No Start Date 07/23/2015 Inactive Levemir Flexpen 100 unit/mL (3 mL) solution subcutaneo us insulin pen RxNorm: 785029 20-25 Unit(s) SQ QD No Start Date 07/28/2013 Inactive lisinopril 20 mg tablet RxNorm: 096233 1 Tablet(s) PO QD No Start D ate 10/11/2019 Inactive indomethacin ER 75 mg capsule,extended release RxNorm: 27254 2 1 Capsule(s) PO QAM No Start Date 04/27/2013 Inactive indomethacin ER 75 mg capsule,extended release RxNorm: 69151 2 1 Capsule(s) PO QD No Start Date 01/16/2015 Inactive Chlortab-4 oral RxNorm: 175259 oral No Start Date 10/11/2019 Inac tive Vitamin D3 5,000 unit tablet RxNorm: 000532 1 Tablet(s) PO QD No St art Date 08/03/2014 Inactive Levemir Flexpen 100 unit/mL (3 mL) solution subcutaneo us insulin Pen RxNorm: 121376 20 Unit(s) SQ QHS No Start Date 03/10/2013 Inactive Vytorin 10 mg-40 mg tablet RxNorm: 6480999 1/2 Tablet(s) PO QD No S tart Date 04/20/2018 Inactive oxymetazoline-menthol 0.05 % nasal spray RxNorm: 2158447 [place] COTY No Start Date 10/11/2019 Inactive Patient states he ta kes every 10 hours Tamia SoloStar 300 unit/mL (1.5 mL) subcutaneous insulin pe n RxNorm: 6102596 35 Unit(s) SQ QAM No Start Date 07/22/2016 Inactive Lantus Solostar 100 unit/mL (3 mL) subcutaneous insulin pen RxNorm: 190184 20 Unit(s) SQ QD No Start Date 08/03/2014 Inactive aspirin 81 mg tablet RxNorm: 092354 1 Tablet(s) PO QD No Start Date 0 08/03/2014 Inactive metformin 500 mg tablet RxNorm: 532227 1 Tablet(s) PO BID No Start Date 07/28/2013 Inactive glimepiride 4 mg tablet RxNorm: 803841 1 Tablet(s) PO BID No Start Date 01/16/2015 Inactive glimepiride 4 mg tablet RxNorm: 038499 1 Tablet(s) PO QD No Start D ate 08/03/2014 Inactive levothyroxine 25 mcg tablet RxNorm: 775336 1 Tablet(s) PO QD No Sta rt Date 08/10/2014 Inactive doxycycline oral RxNorm: 47857 oral No Start Date 05/12/2019 Inac tive aspirin 81 mg tablet RxNorm: 465574 1 Tablet(s) PO QD No Start Date 0 07/21/2018 Inactive isosorbide mononitrate ER 60 mg tablet,extended release 24 h r RxNorm: 838825 1 Tablet(s) PO BID No Start Date 01/16/2015 Inactive metformin 500 mg tablet RxNorm: 486762 1 Tablet(s) PO BID No Start Date 04/27/2013 Inactive Plavix 75 mg tablet RxNorm: 300175 1 Tablet(s) PO QD No Start Date Inactive glimepiride 4 mg tablet RxNorm: 911182 1 Tablet(s) PO QPM No Start Date 02/21/2019 Inactive Vytorin 10-40 10 mg-40 mg tablet RxNorm: 7801101 1 Tablet(s) PO QHS No Start Date 08/03/2014 Inactive indomethacin 50 mg capsule RxNorm: 622204 1 Capsule(s) PO QHS No St art Date 01/16/2015 Inactive glimepiride 4 mg tablet RxNorm: 568596 1 Tablet(s) PO BID No Start Date 07/28/2013 Inactive Levemir FlexTouch 100 unit/mL (3 mL) subcutaneous insulin pe n RxNorm: 995892 20 Unit(s) SQ QD No Start Date 04/30/2015 Inactive lisinopril 20 mg tablet RxNorm: 113806 1 Tablet(s) PO BID No Start Date 04/27/2013 Inactive Lantus Solostar SubQ RxNorm: Subcutaneous No Start Date 03/15/2013 I nactive Zantac 150 mg tablet RxNorm: 964055 1 Tablet(s) PO QHS No Start Date 10/11/2019 Inactive allopurinol 300 mg tablet RxNorm: 863575 1 Tablet(s) PO QD No Start Date 08/03/2014 Inactive Fish Oil 1,000 mg capsule RxNorm: 1 Capsule(s) PO QD No Start Date 02/21/2019 Inactive indomethacin 50 mg capsule RxNorm: 781554 1 Capsule(s) PO BID No St art Date 04/20/2018 Inactive levothyroxine 50 mcg tablet RxNorm: 358420 1 Tablet(s) PO QD No rt Date 08/10/2014 Inactive glimepiride 4 mg tablet RxNorm: 905984 1 Tablet(s) PO BID No Start Date 03/15/2013 Inactive indomethacin 50 mg capsule RxNorm: 684740 1 Capsule(s) PO QHS No art Date 04/27/2013 Inactive Medication Administered No Medication Administered data Immunizations Vaccine Codes Date Status Influenza CVX: 135 04/21/2018 Complete Influenza CVX: 135 04/22/2017 Complete Results Observation Observation Code Item Item Code Result Date S ervice Location [facility] 41536 Cholesterol 209 mg/dL 09/17/2016 Unkno wn [facility] 03826 Triglyceride 111 mg/dL 09/17/2016 Unkn own [facility] 48503 HDL CHOLESTEROL 50 mg/dL 09/17/2016 U nknown [facility] 62440 Chol/HDL Ratio 4.18 ratio 09/17/2016 U nknown [facility] 62207 NON-HDL Chol 159 mg/dL 09/17/2016 Unkn own [facility] 84839 LDL Cholesterol 137 mg/dL 09/17/2016 U nknown MEAN GLUC 3807612 Calc Mean Gluc 151 mg/dL 09/17/2016 Unkn own COMPREHENSIVE METABOLIC 80601 AST 23 U/L 2016 Unknown COMPREHENSIVE METABOLIC 65056 ALT 19 U/L 2016 Unknown [facility] 73922 BUN 15 mg/dL 2016 Unknown COMPREHENSIVE METABOLIC 08676 ALBUMIN 4.3 g/dL 2016 Unknown COMPREHENSIVE METABOLIC 46797 CHLORIDE 103 mmol/L 09/17 Unknown COMPREHENSIVE METABOLIC 54000 Bili Total 0.6 mg/dL 09/17 Unknown COMPREHENSIVE METABOLIC 20985 ALK PHOS 60 U/L 2016 Unknown COMPREHENSIVE METABOLIC 25408 SODIUM 140 mmol/L 09/17 Unknown COMPREHENSIVE METABOLIC 87442 CREATININE 1.03 mg/dL 09/04 Unknown COMPREHENSIVE METABOLIC 61778 CALCIUM 9.5 mg/dL 2016 Unknown COMPREHENSIVE METABOLIC 49849 POTASSIUM 3.9 mmol/L 09/17 Unknown COMPREHENSIVE METABOLIC 50263 Total Protein 6.9 g/dL Unknown COMPREHENSIVE METABOLIC 57569 Glucose 94 mg/dL 2016 Unknown COMPREHENSIVE METABOLIC 96634 Bicarbonate 28 mmol/L 09/04 Unknown COMPREHENSIVE METABOLIC 35670 AGAP 9 mmol/L 2016 Unknown GFR CALC 6287060 GFR Non Afr Amr >60 mL/min 09/17/2016 Un known GFR CALC 8712765 GFR Afr Amr >60 mL/min 09/17/2016 Unknow n THYROID STIMULATING HORMONE 10182 TSH 4.260 uIU/mL 09/17/2016 Unknown GLYCOSYLATED HEMOGLOBIN TEST 59816 Hgb A1c 50468-8 6.9 % 0 09/17/2016 Unknown FREE T4 24950 T4 Free 1.02 ng/dL 09/17/2016 Unknown COMPLETE BLOOD COUNT 8651438 WBC 8.6 10e9/L 07/26/19 16 Unknown COMPLETE BLOOD COUNT [id number] RBC 4.86 10e12/L 2015 Unknown COMPLETE BLOOD COUNT [id number] HGB 14.6 g/dL 6 Unknown COMPLETE BLOOD COUNT 4951473 HCT DET 43.1 % 6 Unknown COMPLETE BLOOD COUNT [id number] MCV 88.7 fL 6 Unknown COMPLETE BLOOD COUNT [id number] MCH 30.0 pg 6 Unknown COMPLETE BLOOD COUNT 8958301 MCHC 33.9 g/dL 6 Unknown COMPLETE BLOOD COUNT [id number] PLT 267 10e9/L 07/26/19 16 Unknown COMPLETE BLOOD COUNT 0478458 MPV 11.5 fL 6 Unknown COMPLETE BLOOD COUNT 8037921 SAM % 64.8 % 6 Unknown COMPLETE BLOOD COUNT 2089209 LY % 16.8 % 6 Unknown COMPLETE BLOOD COUNT [id number] MON % 12.5 % 6 Unknown COMPLETE BLOOD COUNT 6497183 EOS % 5.6 % 6 Unknown COMPLETE BLOOD COUNT 9188103 BASO % 0.3 % 6 Unknown COMPLETE BLOOD COUNT 1957036 RDW 13.4 % 6 Unknown COMPLETE BLOOD COUNT [id number] ABS SAM 5.57 10e9/L 016 Unknown COMPLETE BLOOD COUNT [id number] ABS LYMPH 1.44 10e9/L 016 Unknown COMPLETE BLOOD COUNT [id number] ABS MONO 1.08 10e9/L 016 Unknown COMPLETE BLOOD COUNT [id number] ABS EOS 0.48 10e9/L 016 Unknown COMPLETE BLOOD COUNT [id number] ABS BASO 0.03 10e9/L 016 Unknown COMPLETE BLOOD COUNT 9857212 RDW-SD 42.9 fL 6 Unknown PSA EQUIMOLAR MATT 25314 PSA EQ 0.78 NG/ML 6 Unknown THYROID STIMULATING HORMONE 19043 TSH 5.292 uIU/ML 07/26/2015 Unknown GLYCOSYLATED HEMOGLOBIN TEST 45121 A1C HPLC 19021-8 7.0 % 0 07/26/2015 Unknown GFR CALC 4106054 GFR AA >60 ML/MIN 07/26/2015 Unknown GFR CALC 3018357 GFR NON-AA >60 ML/MIN 07/26/2015 Unknown [facility] 17632 HDL TEST 64 MG/DL 07/26/2015 Unknown [facility] 82703 TRIG 58 MG/DL 07/26/2015 Unknown [facility] 62713 TEST LDL 49 MG/DL 07/26/2015 Unknown [facility] 47203 CHOL 125 MG/DL 07/26/2015 Unknown [facility] 89517 RCHOL/HDL 1.95 RATIO 07/26/2015 Unknow n [facility] 22193 NON-HDL CH 61 MG/DL 07/26/2015 Unknow n COMPREHENSIVE METABOLIC 72640 AST 25 U/L 2015 Unknown COMPREHENSIVE METABOLIC 06584 ALT 23 IU/L 2015 Unknown COMPREHENSIVE METABOLIC 79441 BUN 18 MG/DL 2015 Unknown COMPREHENSIVE METABOLIC 49864 ALBUMIN 4.6 GM/DL 2015 Unknown COMPREHENSIVE METABOLIC 68441 CHLORIDE 100 MMOL/L 07/26 Unknown COMPREHENSIVE METABOLIC 81817 BILI TOT 0.5 MG/DL 2015 Unknown COMPREHENSIVE METABOLIC 48314 ALK PHOS 49 U/L 2015 Unknown COMPREHENSIVE METABOLIC 72014 SODIUM 137 MMOL/L 07/26 Unknown COMPREHENSIVE METABOLIC 76586 CREATININE 1.06 MG/DL 07/08 Unknown COMPREHENSIVE METABOLIC 62431 CALCIUM 9.5 MG/DL 2015 Unknown COMPREHENSIVE METABOLIC 40620 POTASSIUM 4.5 MMOL/L 07/26 Unknown COMPREHENSIVE METABOLIC 87759 PROT TOT 6.5 GM/DL 2015 Unknown COMPREHENSIVE METABOLIC 88177 Glucose 109 MG/DL 2015 Unknown COMPREHENSIVE METABOLIC 02866 BICARB 29 MMOL/L 2015 Unknown COMPREHENSIVE METABOLIC 03230 ANION GAP 8 MEQ/L 2015 Unknown FREE T4 13664 FREE T4 1.11 NG/DL 07/26/2015 Unknown CULTURE & SENSITIVITY 51154 PROTEIN UR NEG 015 Unknown [facility] SENSITIVITY 22476 HEMGLBN UR TR 015 Unknown CULTURE & SENSITIVITY 67645 GLUCOSE UR NEG 015 Unknown CULTURE & SENSITIVITY 94304 KETONES UR NEG 015 Unknown CULTURE & SENSITIVITY 78992 PH U 6.5 01/25/20 15 Unknown CULTURE & SENSITIVITY 44715 SP GR U 1.013 01/25/20 15 Unknown CULTURE & SENSITIVITY 94674 BILRUBN UR NEG 015 Unknown CULTURE & SENSITIVITY 60589 LEUKO UR NEG 01/25/20 15 Unknown CULTURE & SENSITIVITY 01983 NITRITE UR NEG 015 Unknown MICR CUL? [id number] SP TO JOHANA? NO 01/24/2015 Unknown MICR CUL? [id number] APPEAR UR NORMAL 01/24/2015 Unknown MICR CUL? [id number] RBC/uL 2.2 01/24/2015 Unknown MICR CUL? [id number] WBC/uL 2.8 01/24/2015 Unknown MICR CUL? 9330248 SQ EPI/uL 1.0 01/24/2015 Unknown MICR CUL? 5235887 HYALCST/uL 0.25 01/24/2015 Unknown MICR CUL? 7697423 WBC /HPF 1 01/24/2015 Unknown MICR CUL? 0896265 RBC /HPF 0 01/24/2015 Unknown GLYCOSYLATED HEMOGLOBIN TEST 56420 A1C HPLC 62020-0 6.6 % 0 01/17/2015 Unknown COMPLETE BLOOD COUNT 2386706 WBC 10.1 10e9/L 015 Unknown COMPLETE BLOOD COUNT [id number] RBC 4.60 10e12/L 2014 Unknown COMPLETE BLOOD COUNT 5592776 HGB 14.0 g/dL 5 Unknown COMPLETE BLOOD COUNT 2504802 HCT DET 39.9 % 5 Unknown COMPLETE BLOOD COUNT [id number] MCV 86.7 fL 5 Unknown COMPLETE BLOOD COUNT 3747445 MCH 30.4 pg 5 Unknown COMPLETE BLOOD COUNT 2996227 MCHC 35.1 g/dL 5 Unknown COMPLETE BLOOD COUNT [id number] PLT 252 10e9/L 01/18/20 15 Unknown COMPLETE BLOOD COUNT 3345233 MPV 11.4 fL 5 Unknown COMPLETE BLOOD COUNT 3796797 SAM % 72.9 % 5 Unknown COMPLETE BLOOD COUNT 5363986 LY % 13.6 % 5 Unknown COMPLETE BLOOD COUNT 1466424 MON % 10.2 % 5 Unknown COMPLETE BLOOD COUNT 6311829 EOS % 3.1 % 5 Unknown COMPLETE BLOOD COUNT 9866398 BASO % 0.2 % 5 Unknown COMPLETE BLOOD COUNT 7433928 RDW 13.6 % 5 Unknown COMPLETE BLOOD COUNT 9266753 ABS SAM 7.36 10e9/L 015 Unknown COMPLETE BLOOD COUNT 1995106 ABS LYMPH 1.37 10e9/L 015 Unknown COMPLETE BLOOD COUNT 5149821 ABS MONO 1.03 10e9/L 015 Unknown COMPLETE BLOOD COUNT [id number] ABS EOS 0.31 10e9/L 015 Unknown COMPLETE BLOOD COUNT [id number] ABS BASO 0.02 10e9/L 015 Unknown COMPLETE BLOOD COUNT 7608331 RDW-SD 42.4 fL 01/17/201 5 Unknown GFR CALC 5772368 GFR AA 51.0L ML/MIN 01/17/2015 Unknow n GFR CALC 6358677 GFR NON-AA 42.0L ML/MIN 01/17/2015 Unkno wn FREE T4 96433 FREE T4 1.30 NG/DL 01/17/2015 Unknown THYROID STIMULATING HORMONE 18306 TSH 4.029 uIU/ML 01/17/2015 Unknown COMPREHENSIVE METABOLIC 92501 AST 28 U/L 2014 Unknown COMPREHENSIVE METABOLIC 28738 ALT 25 IU/L 2014 Unknown COMPREHENSIVE METABOLIC 87719 BUN 21 MG/DL 2014 Unknown COMPREHENSIVE METABOLIC 32007 ALBUMIN 4.7 GM/DL 2014 Unknown COMPREHENSIVE METABOLIC 57148 CHLORIDE 102 MMOL/L 01/17 Unknown COMPREHENSIVE METABOLIC 54117 BILI TOT 0.6 MG/DL 2014 Unknown COMPREHENSIVE METABOLIC 84944 ALK PHOS 44 U/L 2014 Unknown COMPREHENSIVE METABOLIC 69483 SODIUM 137 MMOL/L 01/17 Unknown COMPREHENSIVE METABOLIC 92225 CREATININE 1.62 MG/DL 01/04 Unknown COMPREHENSIVE METABOLIC 98040 CALCIUM 9.7 MG/DL 2014 Unknown COMPREHENSIVE METABOLIC 16294 POTASSIUM 4.5 MMOL/L 01/17 Unknown COMPREHENSIVE METABOLIC 87638 PROT TOT 6.5 GM/DL 2014 Unknown COMPREHENSIVE METABOLIC 17574 Glucose 136 MG/DL 2014 Unknown COMPREHENSIVE METABOLIC 89727 BICARB 24 MMOL/L 2014 Unknown COMPREHENSIVE METABOLIC 80673 ANION GAP 11 MEQ/L 2014 Unknown VITAMIN B 12 23586 VIT B 12 482 PG/ML 01/17/2015 Unknow n URIC ACID 83530 URIC ACID 8.5 MG/DL 08/09/2014 Unknown COMPREHENSIVE METABOLIC 66362 AST 27 U/L 2014 Unknown COMPREHENSIVE METABOLIC 98250 ALT 26 IU/L 2014 Unknown COMPREHENSIVE METABOLIC 37309 BUN 17 MG/DL 2014 Unknown COMPREHENSIVE METABOLIC 06417 ALBUMIN 5.0 GM/DL 2014 Unknown COMPREHENSIVE METABOLIC 82335 CHLORIDE 101 MMOL/L 08/09 Unknown COMPREHENSIVE METABOLIC 81330 BILI TOT 0.7 MG/DL 2014 Unknown COMPREHENSIVE METABOLIC 65875 ALK PHOS 53 U/L 2014 Unknown COMPREHENSIVE METABOLIC 01827 SODIUM 136 MMOL/L 08/09 Unknown COMPREHENSIVE METABOLIC 28707 CREATININE 1.14 MG/DL 09/2014 Unknown COMPREHENSIVE METABOLIC 00695 CALCIUM 9.8 MG/DL 2014 Unknown COMPREHENSIVE METABOLIC 54111 POTASSIUM 4.1 MMOL/L 08/09 Unknown COMPREHENSIVE METABOLIC 08518 PROT TOT 7.5 GM/DL 2014 Unknown COMPREHENSIVE METABOLIC 44701 Glucose 110 MG/DL 2014 Unknown COMPREHENSIVE METABOLIC 29303 BICARB 30 MMOL/L 2014 Unknown COMPREHENSIVE METABOLIC 37673 ANION GAP 5 MEQ/L 2014 Unknown GFR CALC 6559575 GFR AA >60 ML/MIN 08/09/2014 Unknown GFR CALC 5621951 GFR NON-AA >60 ML/MIN 08/09/2014 Unknown FREE T4 59743 FREE T4 1.14 NG/DL 08/09/2014 Unknown GLYCOSYLATED HEMOGLOBIN TEST 56687 A1C HPLC 20822-1 6.8 % 0 08/09/2014 Unknown COMPLETE BLOOD COUNT [id number] WBC 5.9 10e9/L 08/09/19 15 Unknown COMPLETE BLOOD COUNT [id number] RBC 5.04 10e12/L 2014 Unknown COMPLETE BLOOD COUNT 2373057 HGB 15.2 g/dL 5 Unknown COMPLETE BLOOD COUNT [id number] HCT DET 44.3 % 5 Unknown COMPLETE BLOOD COUNT [id number] MCV 87.9 fL 5 Unknown COMPLETE BLOOD COUNT [id number] MCH 30.2 pg 5 Unknown COMPLETE BLOOD COUNT [id number] MCHC 34.3 g/dL 5 Unknown COMPLETE BLOOD COUNT [id number] PLT 262 10e9/L 08/09/19 15 Unknown COMPLETE BLOOD COUNT [id number] MPV 10.9 fL 5 Unknown COMPLETE BLOOD COUNT [id number] SAM % 58.7 % 5 Unknown COMPLETE BLOOD COUNT [id number] LY % 21.5 % 5 Unknown COMPLETE BLOOD COUNT [id number] MON % 14.0 % 5 Unknown COMPLETE BLOOD COUNT [id number] EOS % 5.3 % 5 Unknown COMPLETE BLOOD COUNT [id number] BASO % 0.5 % 5 Unknown COMPLETE BLOOD COUNT [id number] RDW 13.1 % 5 Unknown COMPLETE BLOOD COUNT [id number] ABS SAM 3.46 10e9/L 015 Unknown COMPLETE BLOOD COUNT [id number] ABS LYMPH 1.27 10e9/L 015 Unknown COMPLETE BLOOD COUNT [id number] ABS MONO 0.83 10e9/L 015 Unknown COMPLETE BLOOD COUNT [id number] ABS EOS 0.31 10e9/L 015 Unknown COMPLETE BLOOD COUNT [id number] ABS BASO 0.03 10e9/L 015 Unknown COMPLETE BLOOD COUNT [id number] RDW-SD 41.2 fL 5 Unknown THYROID STIMULATING HORMONE 99825 TSH 5.395 uIU/ML 08/09/2014 Unknown LIPID GROUP [id number] HDL TEST 52 MG/DL 08/09/2014 Unknown LIPID GROUP [id number] TRIG 113 MG/DL 08/09/2014 Unknown LIPID GROUP 65574 TEST LDL 158 MG/DL 08/09/2014 Unknown [facility] GROUP 58260 CHOL 233 MG/DL 08/09/2014 Unknown LIPID GROUP 51266 RCHOL/HDL 4.48 RATIO 08/09/2014 Unknow n LIPID GROUP 10405 NON-HDL CH 181 MG/DL 08/09/2014 Unknow n COMPLETE BLOOD COUNT [id number] WBC 6.8 10e9/L 09/09/19 14 Unknown COMPLETE BLOOD COUNT [id number] RBC 5.18 10e12/L 2013 Unknown COMPLETE BLOOD COUNT 2430106 HGB 15.2 g/dL 4 Unknown COMPLETE BLOOD COUNT [id number] HCT DET 44.7 % 4 Unknown COMPLETE BLOOD COUNT [id number] MCV 86.3 fL 4 Unknown COMPLETE BLOOD COUNT [id number] MCH 29.3 pg 4 Unknown COMPLETE BLOOD COUNT [id number] MCHC 34.0 g/dL 4 Unknown COMPLETE BLOOD COUNT [id number] PLT 236 10e9/L 09/09/19 14 Unknown COMPLETE BLOOD COUNT [id number] MPV 11.0 fL 4 Unknown COMPLETE BLOOD COUNT [id number] SAM % 58.2 % 4 Unknown COMPLETE BLOOD COUNT [id number] LY % 21.9 % 4 Unknown COMPLETE BLOOD COUNT 4266394 MON % 12.5 % 4 Unknown COMPLETE BLOOD COUNT [id number] EOS % 7.3 % 4 Unknown COMPLETE BLOOD COUNT [id number] BASO % 0.1 % 4 Unknown COMPLETE BLOOD COUNT 1040749 RDW 13.6 % 4 Unknown COMPLETE BLOOD COUNT [id number] ABS SAM 3.96 10e9/L 014 Unknown COMPLETE BLOOD COUNT [id number] ABS LYMPH 1.49 10e9/L 014 Unknown COMPLETE BLOOD COUNT [id number] ABS MONO 0.85 10e9/L 014 Unknown COMPLETE BLOOD COUNT 1113751 ABS EOS 0.50 10e9/L 014 Unknown COMPLETE BLOOD COUNT [id number] ABS BASO 0.01 10e9/L 014 Unknown COMPLETE BLOOD COUNT [id number] RDW-SD 42.3 fL 4 Unknown COMPREHENSIVE METABOLIC 99620 AST 27 U/L 2013 Unknown COMPREHENSIVE METABOLIC 31746 ALT 30 IU/L 2013 Unknown COMPREHENSIVE METABOLIC 42281 BUN 16 MG/DL 2013 Unknown COMPREHENSIVE METABOLIC 97844 ALBUMIN 4.9 GM/DL 2013 Unknown COMPREHENSIVE METABOLIC 72262 CHLORIDE 99 MMOL/L 2013 Unknown COMPREHENSIVE METABOLIC 79206 BILI TOT 0.7 MG/DL 2013 Unknown COMPREHENSIVE METABOLIC 03906 ALK PHOS 53 U/L 2013 Unknown COMPREHENSIVE METABOLIC 45074 SODIUM 137 MMOL/L 09/08 Unknown COMPREHENSIVE METABOLIC 68935 CREATININE 1.01 MG/DL 11/2013 Unknown COMPREHENSIVE METABOLIC 96779 CALCIUM 10.0 MG/DL 09/08 Unknown COMPREHENSIVE METABOLIC 00633 POTASSIUM 4.4 MMOL/L 09/08 Unknown COMPREHENSIVE METABOLIC 49950 PROT TOT 7.1 GM/DL 2013 Unknown COMPREHENSIVE METABOLIC 53867 Glucose 148 MG/DL 2013 Unknown COMPREHENSIVE METABOLIC 54674 BICARB 30 MMOL/L 2013 Unknown COMPREHENSIVE METABOLIC 22970 ANION GAP 8 MEQ/L 2013 Unknown GFR CALC 6993433 GFR AA >60 ML/MIN 09/08/2013 Unknown GFR CALC 2416041 GFR NON-AA >60 ML/MIN 09/08/2013 Unknown FREE T4 11844 FREE T4 1.08 NG/DL 09/08/2013 Unknown GLYCOSYLATED HEMOGLOBIN TEST 34985 A1C HPLC 28031-9 7.3 % 0 09/08/2013 Unknown THYROID STIMULATING HORMONE 54575 TSH 5.454 uIU/ML 09/08/2013 Unknown LIPID GROUP 26782 HDL TEST 59 MG/DL 09/08/2013 Unknown LIPID GROUP 56321 TRIG 92 MG/DL 09/08/2013 Unknown LIPID GROUP 58718 TEST LDL 83 MG/DL 09/08/2013 Unknown LIPID GROUP 80236 CHOL 160 MG/DL 09/08/2013 Unknown LIPID GROUP 04050 RCHOL/HDL 2.71 RATIO 09/08/2013 Unknow n VITAMIN B 12 FOLIC ACID 05488|04595 VIT B 12 467 PG/ML 12/2012 Unknown VITAMIN B 12 FOLIC ACID 57473|25071 FOLIC ACID 12.2 NG/ML Unknown VITAMIN B 12 FOLIC ACID 86693|20624 VIT B 12 467 PG/ML 12/2012 Unknown THYROID STIMULATING HORMONE 86258 TSH 4.557 uIU/ML 03/12/2013 Unknown HEMOGLOBIN A1C (GLYCOSYLATED) 4978585 A1C HPLC 80764-8 7.6 % 03/12/2013 Unknown VITAMIN D TOTAL (25 HYDROXY) 39256 VIT D TOTL 17 NG/ML 03/12/2013 Unknown FREE T4 05914 FREE T4 1.07 NG/DL 03/12/2013 Unknown URIC ACID 66551 URIC ACID 5.2 MG/DL 03/12/2013 Unknown Procedures Procedure Codes Date THER/PROPH/DIAG INJ SC/IM CPT-4: 86978 05/13/2019 TRIAMCINOLONE ACET INJ NOS CPT-4: J3301 05/13/2019 DEXAMETHASONE SODIUM PHOS CPT-4: J1100 05/13/2019 THER/PROPH/DIAG INJ SC/IM CPT-4: 89883 02/22/2019 TRIAMCINOLONE ACET INJ NOS CPT-4: J3301 02/22/2019 FLU VACC PRSV FREE INC ANTIG 65 AND OLDER CPT-4: 38383 04/21/2018 ADMIN INFLUENZA VIRUS VAC CPT-4: G0008 04/21/2018 PRESCRIP TRANSMIT VIA ERX SY CPT-4: G8553 04/21/2018 DESTRUCT PREMALG LESION (Cryosurgery) CPT-4: 84109 FLU VACC PRSV FREE INC ANTIG 65 AND OLDER CPT-4: 59813 04/22/2017 ADMIN INFLUENZA VIRUS VAC CPT-4: G0008 04/22/2017 PRESCRIP TRANSMIT VIA ERX SY CPT-4: G8553 10/10/2016 PRESCRIP TRANSMIT VIA ERX SY CPT-4: G8553 08/29/2015 ROUTINE VENIPUNCTURE CPT-4: 99631 07/26/2015 ASSAY OF FREE THYROXINE CPT-4: 32758 07/26/2015 ASSAY THYROID STIM HORMONE CPT-4: 63223 07/26/2015 COMPREHEN METABOLIC PANEL CPT-4: 46710 07/26/2015 COMPLETE CBC W/AUTO DIFF WBC CPT-4: 68236 07/26/2015 LIPID PANEL CPT-4: 91470 07/26/2015 ASSAY OF PSA TOTAL CPT-4: 10770 07/26/2015 A1C HPLC CPT-4: 69806 07/26/2015 ROUTINE VENIPUNCTURE CPT-4: 58602 01/17/2015 ASSAY OF FREE THYROXINE CPT-4: 24034 01/17/2015 ASSAY THYROID STIM HORMONE CPT-4: 06186 01/17/2015 COMPREHEN METABOLIC PANEL CPT-4: 14268 01/17/2015 COMPLETE CBC W/AUTO DIFF WBC CPT-4: 48147 01/17/2015 A1C HPLC CPT-4: 03430 01/17/2015 VITAMIN B-12 CPT-4: 25304 01/17/2015 PPPS, subseq visit CPT-4: G0439 08/04/2014 PRESCRIP TRANSMIT VIA ERX SY CPT-4: G8553 02/18/2014 FLUZONE, 5ML (Medicare) CPT-4: Q2038 07/22/2013 ADMIN INFLUENZA VIRUS VAC CPT-4: G0008 07/22/2013 PRESCRIP TRANSMIT VIA ERX SY CPT-4: G8553 04/28/2013 ROUTINE VENIPUNCTURE CPT-4: 73895 03/12/2013 VITAMIN D TOTAL (25 HYDROXY) CPT-4: 14792 03/12/2013 VITAMIN B 12 FOLIC ACID CPT-4: 47403|48910 03/12/2013 A1C GLYCOSYLATED HEMOGLOBIN TEST CPT-4: 17186 013 ASSAY OF BLOOD/URIC ACID CPT-4: 40507 03/12/2013 ASSAY OF FREE THYROXINE CPT-4: 25175 03/12/2013 ASSAY THYROID STIM HORMONE CPT-4: 19815 03/12/2013 CUR TOBACCO NON-USER CPT-4: G8457 03/11/2013 [...] 1: 156/70 Code: 8480-6 BMI: 35.0 Code: 49804-0 Heart Rate 1: 68 bpm Height: 5'10" Respiratory Rate: 20 bpm SpO2: 95% Tempera ture: 36.5 (C) / 97.7 (F) Weight: 244 lbs 04/21/2018 Blood Pressure 1: 124/80 Code: 8480-6 BMI: 34.4 Code: 47654-4 Heart Rate 1: 80 bpm Height: 5'10" Respiratory Rate: 20 bpm SpO2: 96% Tempera ture: 37.0 (C) / 98.6 (F) Weight: 240 lbs 01/06/2018 Blood Pressure 1: 138/82 Code: 8480-6 BMI: 33.9 Code: 24663-8 Heart Rate 1: 96 bpm Height: 5'10" Respiratory Rate: 24 bpm SpO2: 98% Tempera ture: 35.9 (C) / 96.6 (F) Weight: 236 lbs 10/22/2017 Blood Pressure 1: 144/70 Code: 8480-6 BMI: 34.7 Code: 29168-0 Heart Rate 1: 72 bpm Height: 5'10" Respiratory Rate: 20 bpm SpO2: 96% Tempera ture: 36.9 (C) / 98.4 (F) Weight: 242 lbs 04/22/2017 Blood Pressure 1: 146/82 Code: 8480-6 BMI: 32.9 Code: 53799-1 Heart Rate 1: 104 bpm Height: 5'10" Respiratory Rate: 20 bpm SpO2: 95% Tempera ture: 36.9 (C) / 98.5 (F) Weight: 229 lbs 10/10/2016 Blood Pressure 1: 124/64 Code: 8480-6 BMI: 32.9 Code: 00202-1 Heart Rate 1: 64 bpm Height: 5'10" [...] 1: 146/90 Code: 8480-6 BMI: 34.1 Code: 22687-7 Heart Rate 1: 80 bpm Height: 5'10" Respiratory Rate: 20 bpm Temperature: 36 .8 (C) / 98.2 (F) Weight: 238 lbs 01/17/2015 Blood Pressure 1: 116/60 Code: 8480-6 BMI: 32.7 Code: 67139-1 Heart Rate 1: 84 bpm Height: 5'10" Respiratory Rate: 20 bpm Temperature: 36 .7 (C) / 98.0 (F) Weight: 228 lbs 09/29/2014 Blood Pressure 1: 136/78 Code: 8480-6 BMI: 33.9 Code: 22927-9 Heart Rate 1: 80 bpm Height: 5'10" Respiratory Rate: 20 bpm Temperature: 36 .6 (C) / 97.9 (F) Weight: 236 lbs 08/04/2014 Blood Pressure 1: 132/70 Code: 8480-6 BMI: 32.9 Code: 61481-8 Heart Rate 1: 72 bpm Height: 5'10" Respiratory Rate: 20 bpm Temperature: 36 .7 (C) / 98.0 (F) Weight: 229 lbs 02/18/2014 Blood Pressure 1: 124/82 Code: 8480-6 Heart Rate 1: 82 bpm Respiratory Rate: 18 bpm Temperature: 36.4 (C) / 97.5 (F) Weight: 232 lbs 07/29/2013 Blood Pressure 1: 146/80 Code: 8480-6 BMI: 34.1 Code: 29986-3 Heart Rate 1: 64 bpm Height: 5'10" Respiratory Rate: 20 bpm Temperature: 36 .9 (C) / 98.5 (F) Weight: 238 lbs 05/26/2013 Blood Pressure 1: 142/90 Code: 8480-6 BMI: 34.0 Code: 67369-5 Heart Rate 1: 84 bpm Height: 5'10" Respiratory Rate: 20 bpm Temperature: 36 .7 (C) / 98.0 (F) Weight: 237 lbs 04/28/2013 Blood Pressure 1: 118/78 Code: 8480-6 BMI: 32.9 Code: 59487-5 Heart Rate 1: 74 bpm Height: 5'10" Respiratory Rate: 20 bpm Temperature: 36 .1 (C) / 97.0 (F) Weight: 229 lbs 03/11/2013 Blood Pressure 1: 146/80 Code: 8480-6 BMI: 31.5 Code: 09581-5 Heart Rate 1: 80 bpm Height: 6' [...] care Encounters Encounter Performer Location Codes Date ([id number]) OFFICE/OUTPATIENT VISIT EST Diagnosis: Esophageal reflux[ICD10: K21.9] Diagnosis: History of bladder cancer[ICD10: Z85.51] Xiomara BETTENCOURT [place] CPT-4: 16332 12/07/2019 ([id number]) OFFICE/OUTPATIENT VISIT EST Diagnosis: DM w/o complication type II, uncontrolled[ICD10: E11.65] Diagnosis: Other dyspnea and respiratory abnormality[ICD10: R06.09] Xiomara BETTENCOURT [place] CPT-4: 38020 10/27/2019 ([id number]) OFFICE/OUTPATIENT VISIT EST Diagnosis: Chronic obstructive pulmonary disease, unspecified[ICD10: J44.9] Diagnosis: DM w/o complication type II, uncontrolled[ICD10: E11.65] Diagnosis: Edema[ICD10: R60.9] Xiomara BETTENCOURT [place] CPT-4: 87814 10/20/2019 ([id number]) OFFICE/OUTPATIENT VISIT EST Diagnosis: Other dyspnea and respiratory abnormality[ICD10: R06.09] Diagnosis: Obstructive sleep apnea[ICD10: G47.33] Diagnosis: Hypotension[ICD10: I95.9] Xiomaradaniel Bettencourt [facility] CPT -4: 47411 10/12/2019 ([id number]) OFFICE/OUTPATIENT VISIT EST Diagnosis: Upper respiratory infection[ICD10: J06.9] Penniefede BRADLEY Elvia [employer] CPT-4: 91096 06/02/2019 ([id number]) OFFICE/OUTPATIENT VISIT EST Diagnosis: Sinusitis[ICD10: J32.9] Diagnosis: Allergic rhinitis[ICD10: J30.9] Pennie RENAEQUELINE Elvia BETTENCOURT [place] CPT-4: 16674 05/13/2019 ([id number]) OFFICE/OUTPATIENT VISIT EST Diagnosis: Pneumonia[ICD10: J18.9] Pennie ROSENBAUM [facility] CPT-4: 37695 04/26/2019 ([id number]) OFFICE/OUTPATIENT VISIT EST Diagnosis: Acute sinusitis, unspecified[ICD10: J01.90] Pennie BETTENCOURT [facility] CPT-4: 94270 02/22/2019 ([id number]) OFFICE/OUTPATIENT VISIT EST Diagnosis: Cervicalgia[ICD10: M54.2] Xiomara MAGALLON [facility] CPT-4: 24078 11/25/2018 ([id number]) OFFICE/OUTPATIENT VISIT EST Diagnosis: Acute sinusitis, unspecified[ICD10: J01.90] Diagnosis: Myalgia, unspecified site[ICD10: M79.10] Diagnosis: Cervicalgia[ICD10: M54.2] [facility] 66049 11/19/2018 ([id number]) OFFICE/OUTPATIENT VISIT EST Diagnosis: Low back pain[ICD10: M54.5] Diagnosis: Essential (primary) hypertension[ICD10: I10] Diagnosis: 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, 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] Diagnosis: Paroxysmal atrial fibrillation[ICD10: I48.0] Xiomara BETTENCOURT [facility] CPT-4: 46937 07/22/2018 ([id number]) OFFICE/OUTPATIENT VISIT EST Diagnosis: Type 2 diabetes mellitus with diabetic neuropathy, unspecified[ICD10: E11.40] Diagnosis: Hyperlipidemia, unspecified[ICD10: E78.5] Diagnosis: Essential (primary) hypertension[ICD10: I10] Diagnosis: Chronic kidney disease, stage 1[ICD10: N18.1] Diagnosis: Benign prostatic hyperplasia with lower urinary tract symptoms[ICD10: N40.1] Diagnosis: FLU VACCINE[ICD10: Z23] Xiomara [facility] CPT-4: 78590 04/21/2018 OFFICE/OUTPATIENT VISIT EST Diagnosis: Type 2 diabetes mellitus with hyperglycemia[ICD10: E11.65] Diagnosis: Essential (primary) hypertension[ICD10: I10] Diagnosis: Mixed hyperlipidemia[ICD10: E78.2] Diagnosis: Other fatigue[ICD10: R53.83] Pennie Pizarro XIOMARA DelphineEdvin REED [employer] [facility] [employer] [facility] CPT-4: 95634 01/06/2018 ([id number]) OFFICE/OUTPATIENT VISIT EST Diagnosis: Type 2 diabetes mellitus with diabetic neuropathy, unspecified[ICD10: E11.40] Diagnosis: Essential (primary) hypertension[ICD10: I10] Diagnosis: Pain in right thigh[ICD10: M79.651] Diagnosis: Pain in left leg[ICD10: M79.605] Diagnosis: Localized swelling, mass and lump, left lower limb[ICD10: R22.42] Diagnosis: OSTEOARTHRISIS MULTI SITES[ICD10: M19.90] Diagnosis: FLU VACCINE[ICD10: Z23] Xiomara LARA DelphineEdvin REED [facility] CPT-4: 13209 04/22/2017 ([id number]) OFFICE/OUTPATIENT VISIT EST Diagnosis: Essential (primary) hypertension[ICD10: I10] Diagnosis: Type 2 diabetes mellitus with hyperglycemia[ICD10: E11.65] Diagnosis: Angina pectoris, unspecified[ICD10: I20.9] Xiomara Renonelson LARA DelphineEdvin [facility] [facility] CPT-4: 78669 10/10/2016 ([id number]) OFFICE/OUTPATIENT VISIT EST Diagnosis: Cough[ICD10: R05] Diagnosis: Wheezing[ICD10: R06.2] Diagnosis: Chronic obstructive pulmonary disease, unspecified[ICD10: J44.9] Shannan Gan [facility] [facility] CPT-4: 15338 08/31/2015 OFFICE/OUTPATIENT VISIT EST Diagnosis: Acute bronchitis, unspecified[ICD10: J20.9] Diagnosis: Wheezing[ICD10: R06.2] Kelsie [facility] CPT-4: 65902 08/29/2015 ([id number]) OFFICE/OUTPATIENT VISIT EST Diagnosis: Type 2 diabetes mellitus with diabetic neuropathy, unspecified[ICD10: E11.40] Diagnosis: Hyperlipidemia, unspecified[ICD10: E78.5] Diagnosis: Essential (primary) hypertension[ICD10: I10] Diagnosis: Encounter for general adult medical examination without abnormal findings[ICD10: Z00.00] Xiomara BETTENCOURT [facility] CPT-4: 54169 07/26/2015 OFFICE/OUTPATIENT VISIT EST Diagnosis: Type 2 diabetes mellitus with hyperglycemia[ICD10: E11.65] Diagnosis: Unspecified osteoarthritis, unspecified site[ICD10: M19.90] Diagnosis: Other instability, right knee[ICD10: M25.361] Kelsie BETTENCOURT DO [facility] CPT-4: 26318 07/24/2015 ([id number]) OFFICE/OUTPATIENT VISIT EST Diagnosis: Pain in leg, unspecified[ICD10: M79.606] Diagnosis: Type 2 diabetes mellitus with diabetic neuropathy, unspecified[ICD10: E11.40] Xiomara AkersEdvin KODAK [facility] CPT-4: 62094 05/01/2015 ([id number]) OFFICE/OUTPATIENT VISIT EST Diagnosis: MALAISE AND FATIGUE[ICD9: 780.79] Diagnosis: 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, 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] Diagnosis: CAD[ICD9: 414.00] Diagnosis: ANEMIA NOS[ICD9: 285.9] Xiomara ROSENBAUM [facility] CPT-4: 04607 01/17/2015 ([id number]) OFFICE/OUTPATIENT VISIT EST Diagnosis: Skin lesion[ICD9: 709.9] Xiomara HANLINE Elvia GENAO [facility] CPT-4: 33746 09/29/2014 OFFICE/OUTPATIENT VISIT EST Diagnosis: GASTROENTERITIS[ICD9: 558.9] Diagnosis: GERD[ICD9: 530.81] Kelsie BETTENCOURT [facility] CPT-4: 59530 02/18/2014 ([id number]) OFFICE/OUTPATIENT VISIT EST Diagnosis: 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I, UNCONTROLLED[ICD9: 250.02] Xiomara HANLINE DelphineEdvin KODAK [facility] CPT-4: 23437 07/29/2013 ([id number]) OFFICE/OUTPATIENT VISIT EST Diagnosis: FLU VACCINE[ICD9: V04.81] Xiomara Renovondaer XIOMARADANIEL MAGALLON [facility] CPT-4: 99132 07/22/2013 ([id number]) OFFICE/OUTPATIENT VISIT EST Diagnosis: 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I, UNCONTROLLED[ICD9: 250.02] Diagnosis: HYPERTENSION[ICD9: 401.9] Xiomara MAGALLON [facility] CPT-4: 09699 05/26/2013 ([id number]) OFFICE/OUTPATIENT VISIT EST Diagnosis: MONONEURITIS[ICD9: 355.9] Diagnosis: RESTLESS LEGS SYNDROME[ICD9: 333.94] Diagnosis: HYPERTENSION[ICD9: 401.9] Diagnosis: CAD[ICD9: 414.00] Diagnosis: Weakness[ICD9: 780.79] Xiomara [facility] CPT-4: 09435 04/28/2013 ([id number]) OFFICE/OUTPATIENT VISIT EST Diagnosis: 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[ICD9: 250.01] Diagnosis: MONONEURITIS[ICD9: 355.9] Diagnosis: HYPERLIPIDEMIA NEC/NOS[ICD9: 272.4] Diagnosis: CAD[ICD9: 414.00] [facility]: 38306 03/12/2013 OFFICE/OUTPATIENT VISIT NEW Diagnosis: CAD[ICD9: 414.00] Diagnosis: HYPERLIPIDEMIA NEC/NOS[ICD9: 272.4] Diagnosis: HYPERTENSION[ICD9: 401.9] Diagnosis: Neuropathy[ICD9: 355.9] Diagnosis: RESTLESS LEGS SYNDROME[ICD9: 333.94] [facility] C[facility]: 89172 03/11/2013 Plan of Care Planned Activity Notes [...] : R06.09 10/27/2019 Appointment: Xiomara Bettencourt [facility]el[facility] [facility] 10/27/2019 Patient Education: gabapentin- OptimizeRX Coupon [phone] [email or web address]/getResource/[email or web address] Completed 10/27/2019 Visit Diagnosis Plan: DM w/o [...] : J44.9 10/20/2019 Appointment: Xiomara Bettencourt WPtel[facility] [facility] 10/20/2019 Patient Education: furosemide- OptimizeRX Coupon [phone] [email or web address]/getResource/[email or web address] Completed 10/20/2019 Visit Diagnosis Plan: Obstructive sleep [...] I95.9 10/12/2019 Appointment: Xiomara Bettencourt WPtel: [address] [place] [address] TELEMEDICINE 10/12/2019 Appointment: Xiomara Bettencourt WPtel: [address] [place] [address] RESCHEDULED 09/23/2019 Care Plan: COMPREHEN METABOLIC PANEL SERGEI NC : 16415-5 Pending 09/20/2019 Care Plan: LIPID PANEL LOINC : 02040-9 Pending 09/20/2019 Care Plan: A1C HPLC LOINC : 11462-1 Pending 09/20/2019 Care Plan: COMPLETE CBC W/AUTO DIFF WBC LOINC : 30693-7 Pending 09/20/2019 Visit Diagnosis Plan: Upper respiratory infection Disc ussion: discussed that most likely viral. push fluids and rest through the week. patient has left over levaquin at home (5 days worth). instructed patient to start taking if he gets worse later this week and to call us next week if no improvement. ICD-9 : 465.9 ICD-10 : J06.9 06/02/2019 Appointment: Pennie Pizarro [address] [place] [address] ACUTE ILLNESS 06/02/2019 Visit Diagnosis Plan: Allergic [...] ICD-10 : J30.9 05/13/2019 Appointment: Pennie Pizarro [address] [place] [address] ACUTE ILLNESS 05/13/2019 Appointment: Xiomara Bettencourt WPtel: [phone] CANCELED 04/27/2019 Visit Diagnosis Plan: Pneumonia Discussion: will obtai n records from urgent care. instructed to finish out doxy. no rhonchi or crackles auscultated. symbicort sample given to patient with instructions to use bid. call office later this week with new or worsening symptoms. ICD-9 : 486 ICD-10 : J18.9 04/26/2019 Appointment: Pennie Pizarro [address] [place] [address] FOLLOW UP 04/26/2019 Visit Diagnosis Plan: Acute [...] ICD-10 : J01.90 02/22/2019 Appointment: Pennie Pizarro [address] [place] [address] ACUTE ILLNESS 02/22/2019 Patient Education: prednisone- OptimizeRX Coupon [phone] [email or web address]/[email or web address] Completed 02/22/2019 Visit Diagnosis Plan: Cervicalgia Discussion: Check Ce rvical Spine X-ray Will likely need PT ICD-9 : 723.1 ICD-10 : M54.2 11/25/2018 Appointment: Xiomara Bettencourt WPtel: [phone] [place] [phone] ACUTE ILLNESS 11/25/2018 Visit Plan: Saline nasal [...] prn. Tyle... 11/19/2018 Appointment: Xiomara Bettencourttel: [phone] [facility] [facility] 11/19/2018 Patient Education: baclofen- OptimizeRX Coupon [phone] [email or web address]://[email or web address]!/[email or web address]/resources/getResource/61/[email or web address] Completed 11/19/2018 Visit Diagnosis Plan: Paroxysmal atrial [...] I10 07/22/2018 Appointment: Xiomara Bettencourt WPtel[facility] [phone] [facility] [facility] 07/22/2018 Visit Diagnosis [...] Trial of flomax Call in [facility] mo [facility] on how doing Follow Up: 4 months ICD-9 : 600.21 ICD-10 : N40.1 04/21/2018 Appointment: Xiomara Bettencourt WPtel: [facility] FO[facility] 04/21/2018 Patient Education: Patient [...] ICD-10 : E78.2 01/06/2018 Appointment: Pennie Pizarro [address] [place] [address] MEDICATION REVIEW 01/06/2018 Patient Education: Patient Medication Summary Completed 01/06/2018 Appointment: Xiomara Bettencourt WPtel: [address] [place] [address] [place] NO SHOW 01/05/2018 Appointment: Xiomara Bettencourt WPtel: [address] [place] [address] [place] CANCELED 12/31/2017 Visit Diagnosis Plan: Actinic keratosis Discussion: Cr yotherapy as above but will see derm if lesions do not resolve ICD-9 : 702.0 ICD-10 : L57.0 10/22/2017 Appointment: Xiomara Bettencourt WPtel: [address] [place] [address] ACUTE ILLNESS 10/22/2017 Patient Education: Patient Medication [...] : M79.605 04/22/2017 Appointment: Xiomara Bettencourt WPtel: [facility] [facility] 04/22/2017 Patient Education: Patient Medication Summary Completed 04/22/2017 Patient Education: Patient Medication Summary Completed 04/16/2017 Care Plan: COMPREHEN METABOLIC PANEL SERGEI NC : 35647-7 Pending 04/16/2017 Care Plan: LIPID PANEL LOINC : 05581-8 Pending 04/16/2017 Care Plan: CBC Pending 04/16/2017 Care Plan: A1C HPLC LOINC : 58651-9 Pending 04/16/2017 Referral: Inocencio Goodson WPtel: [address] [place] [address] [id number] [place] Referral Appointment Confirmed 10/14/2016 Visit Diagnosis Plan: Type 2 diabetes mellitus with hy perglycemia Discussion: Continue toujeo Accuchecks BID Follow Up: 4 months ICD-9 : 250.02 ICD-10 : E11.65 10/10/2016 Visit Diagnosis Plan: Angina pectoris, unspecified Dis cussion: Continue imdur and see cardiology To ER if chest pain returns ICD-9 : 413.9 ICD-10 : I20.9 10/10/2016 Appointment: Xiomara Bettencourt WPtel[facility] [phone] [facility] [facility] 10/10/2016 Patient Education: Patient Medication Summary Completed 10/10/2016 Patient Education: Patient Medication Summary Completed 09/16/2016 Care Plan: COMPREHEN METABOLIC PANEL SERGEI NC : 83179-4 Pending 09/16/2016 Care Plan: ASSAY THYROID STIM HORMONE Pen ding 09/16/2016 Care Plan: ASSAY OF FREE THYROXINE Pendin g 09/16/2016 Care Plan: LIPID PANEL LOINC : 01516-5 Pending 09/16/2016 Care Plan: CBC Pending 09/16/2016 Care Plan: A1C HPLC LOINC : 55428-5 Pending 09/16/2016 Visit Plan: CXR now to further evaluate symptoms Suspect viral since he has been on 2 rounds of antibiotics If chronic lung disease evident, will consider keeping on symbicort snf Sample inhaler given today with instructions on use Continue oral prednisone, would like to avoid injection if possible considering his DM status and he is stable right now Continue albuterol PRN Will call with CXR results 08/31/2015 Appointment: Shannan Grimes [address] [place] [address] 08/31 confirmed- SP ACUTE ILLNESS 08/31/2015 Patient Education: Patient Medication Summary Completed 08/31/2015 Visit Plan: Albuterol INH via SVN every 4 hours Prednisone 20 mg PO BID Notify for worsening symptoms 08/29/2015 Appointment: Kelsie Grubbs WPtel: [address] [place] [address] ACUTE ILLNESS 08/29/2015 Patient Education: Patient Medication Summary Completed 08/29/2015 Appointment: Xiomara Bettencourt WPtel: [address] [place], [place] [phone] [place] LAB 07/26/2015 Patient Education: Patient Medication Summary Completed 07/26/2015 Visit Plan: Return in am for fasting lab s - CBC, CMP, TSH, Free T4, HgbA1C Change Levemir to Toujeo - Continue 35 Units q am - sample given Start physical Therapy for increased quadriceps strengthening and decreased pain in knees, bilaterally. 07/24/2015 Appointment: Kelsie Grubbs WPtel: [address] [place], [place] [phone] 07/21 appt confirmed cn FOLLOW UP 07/24/19 16 Appointment: Kelsie Grubbs WPtel: [address] [place], [place] [phone] US FOLLOW UP 07/24/2015 Patient Education: Patient [...] insulin 05/01/2015 Appointment: Xiomara Bettencourt WPtel: [address] [place] [address] 04/28 confirmed~ ACUTE ILLNESS 05/01/2015 Patient Education: Patient Medication Summary Completed 05/01/2015 Patient Education: Patient Medication Summary Completed 01/19/2015 Care Plan: URINALYSIS AUTO W/[place] : 82243-5 Pending 01/19/2015 Visit Plan: I have went through his medi cations in past and stopped meds but he adjusts his meds on his own and has restarted some Stop Amaryl Once again discussed not using indomethacin routinely due to taking plavix and aspirin daily and penitentiary use is dangerous Check CBC, CMP, TSH, free T4, B12 and HbA1C Patient has seen Cardiology recently but no cardiac cath done--had chemical stress test 01/17/2015 Appointment: Xiomara Bettencourt WPtel: [address] [place] [address] 01/16 vm ACUTE ILLNESS 01/17/2015 Patient Education: Patient Medication Summary Completed 01/17/2015 Visit Plan: See Dr. Garvin for removal 09/29/2014 Appointment: Xiomara Bettencourt WPtel: [address] [place] [address] ACUTE ILLNESS 09/29/2014 Referral: Colt Garvin WPtel: [id number] Referral Initiated 09/29/2014 Patient Education: Patient Medication Summary Completed 09/29/2014 Visit Plan: Check CBC, CMP, TSH, free T4 , HbA1C, Lipids Accuchecks daily alternating times Patient has been adjusting own meds and has not taken any cholesterol meds for sometime Will check into surgery on right knee at [facility] Check carotid dopplers 08/04/2014 Appointment: Xiomara Bettencourt WPtel: [address] [place] [address] Annual Well Visit 08/04/2014 Patient Education: Patient Medication Summary Completed 08/04/2014 Appointment: Kelsie Grubbs WPtel: [address] [place] [address] ACUTE ILLNESS 02/18/2014 Patient Education: Patient Medication Summary Completed 02/18/2014 Patient Education: [facility] - Saving [employer] - 18+ - Dynamic Portal ID Completed 02/18/2014 Appointment: Xiomara Bettencourt WPtel: [address] [place], [place] [phone] LAB 09/08/2013 Visit Plan: Check fasting lab in 1mo Con tinue Lantus and accuchecks at least BID 07/29/2013 Appointment: Xiomara Bettencourt WPtel: [address] [place] [address] FOLLOW UP 07/29/2013 Patient Education: Patient Medication Summary Completed 07/29/2013 Appointment: Xiomara Bettencourt WPtel: [address] [place], [place] [phone] INJECTION 07/22/2013 Patient Education: Patient Medication Summary Completed 07/22/2013 Visit Plan: Pt has been self-adjusting m eds Stop metformin and amaryl Use Levemir 25u sc BID and call in 1wk with BS readings 05/26/2013 Appointment: Xiomara Bettencourt WPtel: [address] [place], [place] [phone] FOLLOW UP 05/26/2013 Patient Education: Patient Medication Summary Completed 05/26/2013 Visit Plan: DC Metformin Increase Lantus to 30u sc daily Change lisinopril to lisinopril HCT 20/25mg q AM Continue Gabapentin at current dose 04/28/2013 Appointment: Xiomara Bettencourt WPtel: [address] [place], [place] [phone] FOLLOW UP 04/28/2013 Patient Education: Patient Medication Summary Completed 04/28/2013 [facility]ment[facility] [phone] [id number] [facility] 03/12/2013 Patient Education: Patient Medication Summary Completed 03/12/2013 Visit Plan: Trial of neurontin 400mg q H S Obtain most recent lab results Change levemir to lantus per pt request Pt goes for sleep study tonite 03/11/2013 Appointment: [facility] Bet[facility]court [facility] [phone] [id number] 02/01paperwork mailed 03/10 confirmed with spouse NEW PATIENT 11/2012 Patient Education: Patient Medication Summary Completed 03/11/2013 Instructions Comment . Saline nasal flushes prn. Tylenol/Motr in prn headache. Notify if persists/symptoms worsening. . CXR now to further evaluate symptoms Suspect viral since he has been on 2 rounds of antibiotics If chronic lung disease evident, will consider keeping on symbicort snf Sample inhaler given today with instructions on [...] to taking plavix and aspirin daily and penitentiary use is dangerous Check CBC, CMP, TSH, [...] check into surgery on right knee at [facility] Check carotid dopplers . Check fasting [...]
--- OUTSIDE RECORDS SUMMARY | 2020-02-02 21:35 | XMS REPORT | CCD ---
Author Author Sheng Bettencourt D.O. Organization [facility] Address [address] [place] [address] Phone Care Team Providers Care Emergency Response Officer Name Role Phone PP Unavailable CCM Unavailable Summary Purpose Interface Exchange Insurance Providers Payer name Policy type / Coverage type Covered constitution party ID Effective Begin Date Effective End Date WPS MEDICARE PART B [place] Medicare Part B [id number] 2018 Unknown [facility] Medicare Part B [id number] 2018 Un known Family history Mother Diagnosis Age At Onset Diabetes mellitus Type 2 Unknown Hypercholesterolemia Unknown Father Diagnosis Age At Onset No Family Disease Entered N/A Social History Social History Element Codes Description Effective Dates Marital status Unknown 03/11/2013 Number of children Unknown 4 03/11/2013 Employment Unknown Retired 03/11/[address]: 3172065 Former smoker 03/11/[address]: 209304 Currently drinks alc ohol Socially 03/11/2013 Has [...] Fill Instructions Flomax 0.4 mg capsule RxNorm: 428975 TAKE TWO CAPSULES BY MOUTH EVERY EVENING 11/11/2019 No Stop Date Active glimepiride 2 mg tablet RxNorm: 822621 1 Tablet(s) Oral QD 10/27/19 20 No Stop Date Active gabapentin 400 mg capsule RxNorm: 200745 1 Capsule(s) Oral QPM 10/0604/24/2020 Active potassium chloride ER 20 mEq tablet,extended release RxNorm: 131060 1 Tablet(s) Oral QD to take with lasix 10/20/2019 10/26/2019 Inactive furosemide 40 mg tablet RxNorm: 821238 1 Tablet(s) Oral QAM for swelling 10/20/2019 10/26/2019 Inactive albuterol sulfate HFA 90 mcg/actuation aerosol inhaler RxNor m: 4710390 1-2 Puff(s) Inhalation as needed 10/12/2019 No Stop Date Active Zyrtec 10 mg tablet RxNorm: 4446776 1 Tablet(s) Oral QAM 10/12/2019 No Stop Date Active aspirin 81 mg tablet,delayed release RxNorm: 733505 1 Tablet(s) Oral QD 10/12/2019 No Stop Date Active Symbicort 160 mcg-4.5 mcg/actuation HFA aerosol inhaler RxNo rm: 9642796 2 Puff(s) Inhalation QD 10/12/2019 No Stop Date Active lisinopril 20 mg tablet RxNorm: 376428 1 Tablet(s) Oral QD 10/12/1901/10/2020 Active simvastatin 20 mg tablet RxNorm: 235217 1 Tablet(s) Ora l QD Needs updated fasting labs 09/20/2019 12/19/2019 Active Needs updated fa sting labs before 90 day refill Flomax 0.4 mg capsule RxNorm: 943537 TAKE TWO CAPSULES BY MOUTH EVERY EVENING 08/03/2019 11/10/2019 Inactive gabapentin 400 mg capsule RxNorm: 333153 TAKE ONE CAPSU LE BY MOUTH EVERY EVENING 08/02/2019 10/26/2019 Inactive simvastatin 20 mg tablet RxNorm: 139929 1 Tablet(s) Ora l QD Needs updated fasting labs 07/21/2019 08/19/2019 Inactive Needs updated fa sting labs before 90 day refill simvastatin 20 mg tablet RxNorm: 766610 1 Tablet(s) Ora l QD Needs updated fasting labs 06/23/2019 07/20/2019 Inactive Needs updated fa sting labs before 90 day refill Flomax 0.4 mg capsule RxNorm: 433494 1 Capsule(s) Oral QD 05/13/2019 10/19/2019 Inactive Flomax 0.4 mg capsule RxNorm: 082298 TAKE TWO CAPSULES BY MOUTH EVERY EVENING 03/19/2019 05/12/2019 Inactive Augmentin 500 mg-125 mg tablet RxNorm: 857369 1 Tablet(s) PO BID 03/03/2019 Inactive baclofen 10 mg tablet RxNorm: 496808 TAKE ONE TABLET BY MOUTH EVERY NIGHT AT BEDTIME FOR PAIN OR SPASMS 01/14/2019 05/12/2019 Inactive Flomax 0.4 mg capsule RxNorm: 949864 TAKE TWO CAPSULES BY MOUTH EVERY EVENING 01/12/2019 03/18/2019 Inactive gabapentin 400 mg capsule RxNorm: 230415 1 Capsule(s) PO QPM 201806/27/2019 Inactive baclofen 10 mg tablet RxNorm: 617340 1 Tablet(s) PO QHS for my n/spasm 12/15/2018 01/13/2019 Inactive simvastatin 20 mg tablet RxNorm: 531301 TAKE ONE TABLET BY MOUT H DAILY 12/11/2018 06/22/2019 Inactive OneTouch Ultra Blue Test Strip RxNorm: Use 1 rigoberto t strip three times daily to check blood sugar (Dx:E11.65) 12/07/2018 No Stop Date Active gabapentin 400 mg capsule RxNorm: 704838 TAKE ONE CAPSU LE BY MOUTH EVERY EVENING 12/04/2018 12/29/2018 Inactive baclofen 10 mg tablet RxNorm: 509915 1 Tablet(s) PO QHS for my n/spasm 11/19/2018 12/15/2018 Inactive Flomax 0.4 mg capsule RxNorm: 353443 2 Capsule(s) PO QPM 09/15/2018 0 12/13/2018 Inactive WOULD LIKE 90DS!!! gabapentin 400 mg capsule RxNorm: 310107 TAKE ONE CAPSU LE BY MOUTH EVERY EVENING 07/21/2018 10/18/2018 Inactive simvastatin 20 mg tablet RxNorm: 097052 1 Tablet(s) PO QD 06/15/2018 12/10/2018 Inactive Flomax 0.4 mg capsule RxNorm: 473201 TAKE TWO CAPSULES BY MOUTH EVERY EVENING 06/02/2018 09/15/2018 Inactive WOULD LIKE 90DS!!! Flomax 0.4 mg capsule RxNorm: 601964 2 Capsule(s) PO QPM 04/21/2018 1 07/20/2017 Inactive simvastatin 20 mg tablet RxNorm: 873689 1 Tablet(s) PO QD Take 1 tablet by mouth daily. Patient due for labwork before further refill. 04/06/20182017 Inactive simvastatin 20 mg tablet RxNorm: 272704 Tablet(s) TAKE ONE TABLET BY MOUTH DAILY 03/25/2018 06/15/2018 Inactive simvastatin 20 mg tablet RxNorm: 948304 Tablet(s) TAKE ONE TABLET BY MOUTH DAILY due for appt 12/29/2017 03/25/2018 Inactive simvastatin 20 mg tablet RxNorm: 282750 TAKE ONE TABLET BY MOUT H DAILY 09/03/2017 12/29/2017 Inactive simvastatin 20 mg tablet RxNorm: 344661 1 Tablet(s) PO QD 10/22/2016 11/18/2018 Inactive isosorbide mononitrate ER 60 mg tablet,extended release 24 h r RxNorm: 357341 1 Tablet(s) PO QD 10/22/2016 04/21/2017 Inactive isosorbide mononitrate ER 60 mg tablet,extended release 24 h r RxNorm: 166970 1 Tablet(s) PO QD 10/10/2016 10/21/2016 Inactive simvastatin 20 mg tablet RxNorm: 881689 1 Tablet(s) PO QD 10/10/2016 10/21/2016 Inactive gabapentin 400 mg capsule RxNorm: 018061 1 Capsule(s) PO QPM 201609/20/2016 Inactive Toujeo SoloStar 300 unit/mL (1.5 mL) subcutaneous insulin pe n RxNorm: 7093175 35 Unit(s) SQ QAM 07/23/2016 07/22/2016 Inactive Toujeo SoloStar 300 unit/mL (1.5 mL) subcutaneous insulin pe n RxNorm: 2569216 40 Unit(s) SQ QAM 09/01/2015 No Stop Date Active Symbicort 160 mcg-4.5 mcg/actuation HFA aerosol inhaler RxNo rm: 7294482 2 Puff(s) INH BID 08/31/2015 09/09/2015 Inactive prednisone 20 mg tablet RxNorm: 723213 1 Tablet(s) PO BID 08/29/2015 09/02/2015 Inactive albuterol sulfate 2.5 mg/3 mL (0.083 %) solution for n ebulization RxNorm: 162305 1 Unit(s) INH Q4H as needed 08/29/2015 10/09/2016 Inactive levothyroxine 75 mcg tablet RxNorm: 280596 1 Tablet(s) PO QD 201507/27/2015 Inactive levothyroxine 75 mcg tablet RxNorm: 911850 1 Tablet(s) PO QD 201511/18/2018 Inactive levothyroxine 75 mcg tablet RxNorm: 587554 1 Tablet(s) PO QD 201507/27/2015 Inactive lisinopril 20 mg-hydrochlorothiazide 25 mg tablet RxNorm: 19 7887 TAKE ONE TABLET BY MOUTH EVERY MORNING. REPLACES PLAIN LISINOPRIL 03/06/2015 04/21/2017 Inactive lisinopril 20 mg-hydrochlorothiazide 25 mg tablet RxNorm: 19 7887 TAKE ONE TABLET BY MOUTH EVERY MORNING. REPLACES PLAIN LISINOPRIL 09/08/2014 03/05/2015 Inactive allopurinol 100 mg tablet RxNorm: 573416 1 Tablet(s) PO BID 015 10/09/2016 Inactive [SAVINGS FOR NON-COVERED YULIA GS -- BIN:[id number], PCN: [id number], Group: [id number], ID# [id number], Questions: . THIS IS NOT INSURANCE.] levothyroxine 50 mcg tablet RxNorm: 383837 1 Tablet(s) PO QD 201407/26/2015 Inactive [AttnRPh: Saving apply/adjud icate RxGRP:SG20 RxBIN:[id number] RxPCN:HT ID#:[id number]] Zegerid 40 mg-1.1 gram capsule RxNorm: 851162 1 Capsule(s) PO QD 03/03/2014 Inactive [AttnRPh: Saving apply/adjud icate RxGRP:SG20 RxBIN:[id number] RxPCN:HT ID#:[id number]] ondansetron 8 mg disintegrating tablet RxNorm: 229013 1 Tablet(s) PO Q8H as needed for [...] 07/28/2013 Inactive gabapentin 400 mg capsule RxNorm: 514206 1 Capsule(s) PO QPM 201207/28/2013 Inactive gabapentin 400 mg capsule RxNorm: 124896 1 Capsule(s) PO QPM 201206/26/2013 Inactive lisinopril 20 mg-hydrochlorothiazide 25 mg tablet RxNorm: 82 3971 1 Tablet(s) PO QAM replaces plain lisinopril 04/28/2013 07/29/2013 Inactive gabapentin 400 mg capsule RxNorm: 326395 1 Capsule(s) PO QPM 201204/27/2013 Inactive gabapentin 400 mg capsule RxNorm: 431325 1 Capsule(s) PO QPM 201203/10/2013 Inactive gabapentin 400 mg capsule RxNorm: 100629 1 Capsule(s) PO QPM 201203/14/2013 Inactive Lantus Solostar 100 unit/mL (3 mL) Sub-Q Insulin Pen RxNorm: 890806 20 Unit(s) SQ QPM 03/11/2013 03/15/2013 Inactive Toujeo SoloStar 300 unit/mL (1.5 mL) subcutaneous insulin pe n RxNorm: 1734241 35 Unit(s) SQ QAM No Start Date Active omeprazole 20 mg capsule,delayed release RxNorm: 435215 1 Capsu le(s) PO QD No Start Date Active isosorbide mononitrate ER 60 mg tablet,extended release 24 h r RxNorm: 480878 1 Tablet(s) PO QD No Start Date Active Eliquis 5 mg tablet RxNorm: 5098632 1 Tablet(s) PO BID No Start Date Active metformin 500 mg tablet RxNorm: 028093 1 Tablet(s) PO BID No Start Da te Active levothyroxine 50 mcg tablet RxNorm: 381421 1 Tablet(s) PO QD No Start Date Active Norvasc 10 mg tablet RxNorm: 603349 1 Tablet(s) PO QHS No Start Date Active Toujeo SoloStar 300 unit/mL (1.5 mL) subcutaneous insulin pe n RxNorm: 9302512 30 Unit(s) SQ QAM No Start Date Active glimepiride 4 mg tablet RxNorm: 454995 1 Tablet(s) PO QHS No Start Date 07/26/2015 Inactive allopurinol 100 mg tablet RxNorm: 340372 1 Tablet(s) PO BID No Star t Date 08/10/2014 Inactive Lantus Solostar 100 unit/mL (3 mL) subcutaneous insulin pen RxNorm: 716529 30 Unit(s) SQ QD No Start Date 08/03/2014 Inactive Levemir FlexTouch 100 unit/mL (3 mL) subcutaneous insulin pe n RxNorm: 530334 25 Unit(s) SQ QAM No Start Date 07/23/2015 Inactive Lantus 100 unit/mL Sub-Q RxNorm: 452720 30 Unit(s) SQ QHS No Start Date 05/25/2013 Inactive Lantus Solostar 100 unit/mL (3 mL) Sub-Q Insulin Pen RxNorm: 507540 20 Unit(s) SQ QPM No Start Date 03/10/2013 Inactive OneTouch Ultra Blue Test Strip RxNorm: Use 1 rigoberto t strip three times daily to check blood sugar (Dx:E11.65) No Start Date 12/06/2018 Inactive Levemir FlexTouch 100 unit/mL (3 mL) subcutaneous insulin pe n RxNorm: 042801 30- 35 Unit(s) SQ QAM No Start Date 07/23/2015 Inactive Levemir Flexpen 100 unit/mL (3 mL) solution subcutaneo us insulin pen RxNorm: 606542 20-25 Unit(s) SQ QD No Start Date 07/28/2013 Inactive lisinopril 20 mg tablet RxNorm: 808580 1 Tablet(s) PO QD No Start D ate 10/11/2019 Inactive indomethacin ER 75 mg capsule,extended release RxNorm: 21360 2 1 Capsule(s) PO QAM No Start Date 04/27/2013 Inactive indomethacin ER 75 mg capsule,extended release RxNorm: 39798 2 1 Capsule(s) PO QD No Start Date 01/16/2015 Inactive Chlortab-4 oral RxNorm: 989609 oral No Start Date 10/11/2019 Inac tive Vitamin D3 5,000 unit tablet RxNorm: 794217 1 Tablet(s) PO QD No St art Date 08/03/2014 Inactive Levemir Flexpen 100 unit/mL (3 mL) solution subcutaneo us insulin Pen RxNorm: 797096 20 Unit(s) SQ QHS No Start Date 03/10/2013 Inactive Vytorin 10 mg-40 mg tablet RxNorm: 9727788 1/2 Tablet(s) PO QD No S tart Date 04/20/2018 Inactive oxymetazoline-menthol 0.05 % nasal spray RxNorm: 3729240 [place] COTY No Start Date 10/11/2019 Inactive Patient states he ta kes every 10 hours Tamia SoloStar 300 unit/mL (1.5 mL) subcutaneous insulin pe n RxNorm: 3250382 35 Unit(s) SQ QAM No Start Date 07/22/2016 Inactive Lantus Solostar 100 unit/mL (3 mL) subcutaneous insulin pen RxNorm: 576553 20 Unit(s) SQ QD No Start Date 08/03/2014 Inactive aspirin 81 mg tablet RxNorm: 581895 1 Tablet(s) PO QD No Start Date 0 08/03/2014 Inactive metformin 500 mg tablet RxNorm: 781827 1 Tablet(s) PO BID No Start Date 07/28/2013 Inactive glimepiride 4 mg tablet RxNorm: 685447 1 Tablet(s) PO BID No Start Date 01/16/2015 Inactive glimepiride 4 mg tablet RxNorm: 613597 1 Tablet(s) PO QD No Start D ate 08/03/2014 Inactive levothyroxine 25 mcg tablet RxNorm: 743035 1 Tablet(s) PO QD No Sta rt Date 08/10/2014 Inactive doxycycline oral RxNorm: 67141 oral No Start Date 05/12/2019 Inac tive aspirin 81 mg tablet RxNorm: 597031 1 Tablet(s) PO QD No Start Date 0 07/21/2018 Inactive isosorbide mononitrate ER 60 mg tablet,extended release 24 h r RxNorm: 646867 1 Tablet(s) PO BID No Start Date 01/16/2015 Inactive metformin 500 mg tablet RxNorm: 104983 1 Tablet(s) PO BID No Start Date 04/27/2013 Inactive Plavix 75 mg tablet RxNorm: 468539 1 Tablet(s) PO QD No Start Date Inactive glimepiride 4 mg tablet RxNorm: 999824 1 Tablet(s) PO QPM No Start Date 02/21/2019 Inactive Vytorin 10-40 10 mg-40 mg tablet RxNorm: 2435431 1 Tablet(s) PO QHS No Start Date 08/03/2014 Inactive indomethacin 50 mg capsule RxNorm: 087392 1 Capsule(s) PO QHS No St art Date 01/16/2015 Inactive glimepiride 4 mg tablet RxNorm: 072099 1 Tablet(s) PO BID No Start Date 07/28/2013 Inactive Levemir FlexTouch 100 unit/mL (3 mL) subcutaneous insulin pe n RxNorm: 721566 20 Unit(s) SQ QD No Start Date 04/30/2015 Inactive lisinopril 20 mg tablet RxNorm: 239650 1 Tablet(s) PO BID No Start Date 04/27/2013 Inactive Lantus Solostar SubQ RxNorm: Subcutaneous No Start Date 03/15/2013 I nactive Zantac 150 mg tablet RxNorm: 532170 1 Tablet(s) PO QHS No Start Date 10/11/2019 Inactive allopurinol 300 mg tablet RxNorm: 210043 1 Tablet(s) PO QD No Start Date 08/03/2014 Inactive Fish Oil 1,000 mg capsule RxNorm: 1 Capsule(s) PO QD No Start Date 02/21/2019 Inactive indomethacin 50 mg capsule RxNorm: 619882 1 Capsule(s) PO BID No St art Date 04/20/2018 Inactive levothyroxine 50 mcg tablet RxNorm: 369228 1 Tablet(s) PO QD No rt Date 08/10/2014 Inactive glimepiride 4 mg tablet RxNorm: 651800 1 Tablet(s) PO BID No Start Date 03/15/2013 Inactive indomethacin 50 mg capsule RxNorm: 218720 1 Capsule(s) PO QHS No art Date 04/27/2013 Inactive Medication Administered No Medication Administered data Immunizations Vaccine Codes Date Status Influenza CVX: 135 04/21/2018 Complete Influenza CVX: 135 04/22/2017 Complete Results Observation Observation Code Item Item Code Result Date S ervice Location [facility] 92648 Cholesterol 209 mg/dL 09/17/2016 Unkno wn [facility] 20186 Triglyceride 111 mg/dL 09/17/2016 Unkn own [facility] 47577 HDL CHOLESTEROL 50 mg/dL 09/17/2016 U nknown [facility] 14989 Chol/HDL Ratio 4.18 ratio 09/17/2016 U nknown [facility] 90207 NON-HDL Chol 159 mg/dL 09/17/2016 Unkn own [facility] 41872 LDL Cholesterol 137 mg/dL 09/17/2016 U nknown MEAN GLUC 5987704 Calc Mean Gluc 151 mg/dL 09/17/2016 Unkn own COMPREHENSIVE METABOLIC 86844 AST 23 U/L 2016 Unknown COMPREHENSIVE METABOLIC 75954 ALT 19 U/L 2016 Unknown [facility] 32535 BUN 15 mg/dL 2016 Unknown COMPREHENSIVE METABOLIC 06885 ALBUMIN 4.3 g/dL 2016 Unknown COMPREHENSIVE METABOLIC 99887 CHLORIDE 103 mmol/L 09/17 Unknown COMPREHENSIVE METABOLIC 08420 Bili Total 0.6 mg/dL 09/17 Unknown COMPREHENSIVE METABOLIC 56357 ALK PHOS 60 U/L 2016 Unknown COMPREHENSIVE METABOLIC 87740 SODIUM 140 mmol/L 09/17 Unknown COMPREHENSIVE METABOLIC 31552 CREATININE 1.03 mg/dL 09/04 Unknown COMPREHENSIVE METABOLIC 52163 CALCIUM 9.5 mg/dL 2016 Unknown COMPREHENSIVE METABOLIC 52147 POTASSIUM 3.9 mmol/L 09/17 Unknown COMPREHENSIVE METABOLIC 45513 Total Protein 6.9 g/dL Unknown COMPREHENSIVE METABOLIC 72832 Glucose 94 mg/dL 2016 Unknown COMPREHENSIVE METABOLIC 34935 Bicarbonate 28 mmol/L 09/04 Unknown COMPREHENSIVE METABOLIC 63167 AGAP 9 mmol/L 2016 Unknown GFR CALC 0060522 GFR Afr Amr >60 mL/min 09/17/2016 Unknow n GFR CALC 5819686 GFR Non Afr Amr >60 mL/min 09/17/2016 Un known THYROID STIMULATING HORMONE 69989 TSH 4.260 uIU/mL 09/17/2016 Unknown GLYCOSYLATED HEMOGLOBIN TEST 18019 Hgb A1c 29304-8 6.9 % 0 09/17/2016 Unknown FREE T4 57173 T4 Free 1.02 ng/dL 09/17/2016 Unknown COMPLETE BLOOD COUNT 1643498 WBC 8.6 10e9/L 07/26/19 16 Unknown COMPLETE BLOOD COUNT [id number] RBC 4.86 10e12/L 2015 Unknown COMPLETE BLOOD COUNT 0111984 HGB 14.6 g/dL 6 Unknown COMPLETE BLOOD COUNT 3765575 HCT DET 43.1 % 6 Unknown COMPLETE BLOOD COUNT 4347440 MCV 88.7 fL 6 Unknown COMPLETE BLOOD COUNT 7778972 MCH 30.0 pg 6 Unknown COMPLETE BLOOD COUNT 4279595 MCHC 33.9 g/dL 6 Unknown COMPLETE BLOOD COUNT 1382566 PLT 267 10e9/L 07/26/19 16 Unknown COMPLETE BLOOD COUNT 4736190 MPV 11.5 fL 6 Unknown COMPLETE BLOOD COUNT 7597875 SAM % 64.8 % 6 Unknown COMPLETE BLOOD COUNT 5638830 LY % 16.8 % 6 Unknown COMPLETE BLOOD COUNT [id number] MON % 12.5 % 6 Unknown COMPLETE BLOOD COUNT 9504947 EOS % 5.6 % 6 Unknown COMPLETE BLOOD COUNT [id number] BASO % 0.3 % 6 Unknown COMPLETE BLOOD COUNT 1320999 RDW 13.4 % 6 Unknown COMPLETE BLOOD COUNT [id number] ABS SAM 5.57 10e9/L 016 Unknown COMPLETE BLOOD COUNT [id number] ABS LYMPH 1.44 10e9/L 016 Unknown COMPLETE BLOOD COUNT [id number] ABS MONO 1.08 10e9/L 016 Unknown COMPLETE BLOOD COUNT [id number] ABS EOS 0.48 10e9/L 016 Unknown COMPLETE BLOOD COUNT [id number] ABS BASO 0.03 10e9/L 016 Unknown COMPLETE BLOOD COUNT 2454168 RDW-SD 42.9 fL 6 Unknown PSA EQUIMOLAR MATT 26779 PSA EQ 0.78 NG/ML 6 Unknown THYROID STIMULATING HORMONE 80918 TSH 5.292 uIU/ML 07/26/2015 Unknown GLYCOSYLATED HEMOGLOBIN TEST 04139 A1C HPLC 56205-2 7.0 % 0 07/26/2015 Unknown GFR CALC 4656005 GFR AA >60 ML/MIN 07/26/2015 Unknown GFR CALC 2531521 GFR NON-AA >60 ML/MIN 07/26/2015 Unknown [facility] 37459 HDL TEST 64 MG/DL 07/26/2015 Unknown [facility] 96083 TRIG 58 MG/DL 07/26/2015 Unknown [facility] 38169 TEST LDL 49 MG/DL 07/26/2015 Unknown [facility] 14686 CHOL 125 MG/DL 07/26/2015 Unknown [facility] 56493 RCHOL/HDL 1.95 RATIO 07/26/2015 Unknow n [facility] 83296 NON-HDL CH 61 MG/DL 07/26/2015 Unknow n COMPREHENSIVE METABOLIC 53111 AST 25 U/L 2015 Unknown COMPREHENSIVE METABOLIC 12831 ALT 23 IU/L 2015 Unknown COMPREHENSIVE METABOLIC 54965 BUN 18 MG/DL 2015 Unknown COMPREHENSIVE METABOLIC 49121 ALBUMIN 4.6 GM/DL 2015 Unknown COMPREHENSIVE METABOLIC 83195 CHLORIDE 100 MMOL/L 07/26 Unknown COMPREHENSIVE METABOLIC 51100 BILI TOT 0.5 MG/DL 2015 Unknown COMPREHENSIVE METABOLIC 17797 ALK PHOS 49 U/L 2015 Unknown COMPREHENSIVE METABOLIC 79330 SODIUM 137 MMOL/L 07/26 Unknown COMPREHENSIVE METABOLIC 78398 CREATININE 1.06 MG/DL 07/08 Unknown COMPREHENSIVE METABOLIC 91199 CALCIUM 9.5 MG/DL 2015 Unknown COMPREHENSIVE METABOLIC 85208 POTASSIUM 4.5 MMOL/L 07/26 Unknown COMPREHENSIVE METABOLIC 16329 PROT TOT 6.5 GM/DL 2015 Unknown COMPREHENSIVE METABOLIC 49451 Glucose 109 MG/DL 2015 Unknown COMPREHENSIVE METABOLIC 89983 BICARB 29 MMOL/L 2015 Unknown COMPREHENSIVE METABOLIC 55218 ANION GAP 8 MEQ/L 2015 Unknown FREE T4 50693 FREE T4 1.11 NG/DL 07/26/2015 Unknown CULTURE & SENSITIVITY 88146 PROTEIN UR NEG 015 Unknown [facility] SENSITIVITY 66669 HEMGLBN UR TR 015 Unknown [facility]ULTURE & SENSITIVITY 92499 GLUCOSE UR NEG 015 Unknown [facility]URE & SENSITIVITY 57135 KETONES UR NEG 015 Unknown CULTURE & SENSITIVITY 54861 PH U 6.5 01/25/20 15 Unknown CULTURE & SENSITIVITY 47169 SP GR U 1.013 01/25/20 15 Unknown CULTURE & SENSITIVITY 97340 BILRUBN UR NEG 015 Unknown CULTURE & SENSITIVITY 52554 LEUKO UR NEG 01/25/20 15 Unknown CULTURE & SENSITIVITY 16732 NITRITE UR NEG 015 Unknown MICR CUL? [id number] SP TO JOHANA? NO 01/24/2015 Unknown MICR CUL? [id number] APPEAR UR NORMAL 01/24/2015 Unknown MICR CUL? [id number] RBC/uL 2.2 01/24/2015 Unknown MICR CUL? 0386642 WBC/uL 2.8 01/24/2015 Unknown MICR CUL? 9267235 SQ EPI/uL 1.0 01/24/2015 Unknown MICR CUL? 5155822 HYALCST/uL 0.25 01/24/2015 Unknown MICR CUL? 4248042 WBC /HPF 1 01/24/2015 Unknown MICR CUL? [id number] RBC /HPF 0 01/24/2015 Unknown GLYCOSYLATED HEMOGLOBIN TEST 84808 A1C HPLC 43374-8 6.6 % 0 01/17/2015 Unknown COMPLETE BLOOD COUNT 7732604 WBC 10.1 10e9/L 015 Unknown COMPLETE BLOOD COUNT [id number] RBC 4.60 10e12/L 2014 Unknown COMPLETE BLOOD COUNT 3500929 HGB 14.0 g/dL 5 Unknown COMPLETE BLOOD COUNT 7097262 HCT DET 39.9 % 5 Unknown COMPLETE BLOOD COUNT 1747369 MCV 86.7 fL 5 Unknown COMPLETE BLOOD COUNT 0564767 MCH 30.4 pg 5 Unknown COMPLETE BLOOD COUNT 1742410 MCHC 35.1 g/dL 5 Unknown COMPLETE BLOOD COUNT 3403723 PLT 252 10e9/L 01/18/20 15 Unknown COMPLETE BLOOD COUNT 1031854 MPV 11.4 fL 5 Unknown COMPLETE BLOOD COUNT 2466986 SAM % 72.9 % 5 Unknown COMPLETE BLOOD COUNT 7503491 LY % 13.6 % 5 Unknown COMPLETE BLOOD COUNT 1750953 MON % 10.2 % 5 Unknown COMPLETE BLOOD COUNT 2773041 EOS % 3.1 % 5 Unknown COMPLETE BLOOD COUNT 7556582 BASO % 0.2 % 5 Unknown COMPLETE BLOOD COUNT 3367595 RDW 13.6 % 5 Unknown COMPLETE BLOOD COUNT 4508812 ABS SAM 7.36 10e9/L 015 Unknown COMPLETE BLOOD COUNT [id number] ABS LYMPH 1.37 10e9/L 015 Unknown COMPLETE BLOOD COUNT [id number] ABS MONO 1.03 10e9/L 015 Unknown COMPLETE BLOOD COUNT 1796569 ABS EOS 0.31 10e9/L 015 Unknown COMPLETE BLOOD COUNT 5969734 ABS BASO 0.02 10e9/L 015 Unknown COMPLETE BLOOD COUNT 4665876 RDW-SD 42.4 fL 01/17/201 5 Unknown GFR CALC 8933055 GFR AA 51.0L ML/MIN 01/17/2015 Unknow n GFR CALC 3622060 GFR NON-AA 42.0L ML/MIN 01/17/2015 Unkno wn FREE T4 96956 FREE T4 1.30 NG/DL 01/17/2015 Unknown THYROID STIMULATING HORMONE 59266 TSH 4.029 uIU/ML 01/17/2015 Unknown COMPREHENSIVE METABOLIC 87581 AST 28 U/L 2014 Unknown COMPREHENSIVE METABOLIC 44250 ALT 25 IU/L 2014 Unknown COMPREHENSIVE METABOLIC 53330 BUN 21 MG/DL 2014 Unknown COMPREHENSIVE METABOLIC 98297 ALBUMIN 4.7 GM/DL 2014 Unknown COMPREHENSIVE METABOLIC 52029 CHLORIDE 102 MMOL/L 01/17 Unknown COMPREHENSIVE METABOLIC 95449 BILI TOT 0.6 MG/DL 2014 Unknown COMPREHENSIVE METABOLIC 18084 ALK PHOS 44 U/L 2014 Unknown COMPREHENSIVE METABOLIC 15151 SODIUM 137 MMOL/L 01/17 Unknown COMPREHENSIVE METABOLIC 40527 CREATININE 1.62 MG/DL 01/04 Unknown COMPREHENSIVE METABOLIC 01125 CALCIUM 9.7 MG/DL 2014 Unknown COMPREHENSIVE METABOLIC 59931 POTASSIUM 4.5 MMOL/L 01/17 Unknown COMPREHENSIVE METABOLIC 84638 PROT TOT 6.5 GM/DL 2014 Unknown COMPREHENSIVE METABOLIC 75033 Glucose 136 MG/DL 2014 Unknown COMPREHENSIVE METABOLIC 85582 BICARB 24 MMOL/L 2014 Unknown COMPREHENSIVE METABOLIC 47875 ANION GAP 11 MEQ/L 2014 Unknown VITAMIN B 12 37999 VIT B 12 482 PG/ML 01/17/2015 Unknow n URIC ACID 46992 URIC ACID 8.5 MG/DL 08/09/2014 Unknown COMPREHENSIVE METABOLIC 67937 AST 27 U/L 2014 Unknown COMPREHENSIVE METABOLIC 35374 ALT 26 IU/L 2014 Unknown COMPREHENSIVE METABOLIC 35581 BUN 17 MG/DL 2014 Unknown COMPREHENSIVE METABOLIC 97358 ALBUMIN 5.0 GM/DL 2014 Unknown COMPREHENSIVE METABOLIC 41077 CHLORIDE 101 MMOL/L 08/09 Unknown COMPREHENSIVE METABOLIC 83478 BILI TOT 0.7 MG/DL 2014 Unknown COMPREHENSIVE METABOLIC 36325 ALK PHOS 53 U/L 2014 Unknown COMPREHENSIVE METABOLIC 82441 SODIUM 136 MMOL/L 08/09 Unknown COMPREHENSIVE METABOLIC 70942 CREATININE 1.14 MG/DL 09/2014 Unknown COMPREHENSIVE METABOLIC 96812 CALCIUM 9.8 MG/DL 2014 Unknown COMPREHENSIVE METABOLIC 94773 POTASSIUM 4.1 MMOL/L 08/09 Unknown COMPREHENSIVE METABOLIC 99558 PROT TOT 7.5 GM/DL 2014 Unknown COMPREHENSIVE METABOLIC 79023 Glucose 110 MG/DL 2014 Unknown COMPREHENSIVE METABOLIC 58303 BICARB 30 MMOL/L 2014 Unknown COMPREHENSIVE METABOLIC 14890 ANION GAP 5 MEQ/L 2014 Unknown GFR CALC 2751619 GFR AA >60 ML/MIN 08/09/2014 Unknown GFR CALC 9225646 GFR NON-AA >60 ML/MIN 08/09/2014 Unknown FREE T4 52618 FREE T4 1.14 NG/DL 08/09/2014 Unknown GLYCOSYLATED HEMOGLOBIN TEST 48261 A1C HPLC 51094-7 6.8 % 0 08/09/2014 Unknown COMPLETE BLOOD COUNT 5546100 WBC 5.9 10e9/L 08/09/19 15 Unknown COMPLETE BLOOD COUNT 8430222 RBC 5.04 10e12/L 2014 Unknown COMPLETE BLOOD COUNT 0717051 HGB 15.2 g/dL 5 Unknown COMPLETE BLOOD COUNT [id number] HCT DET 44.3 % 5 Unknown COMPLETE BLOOD COUNT [id number] MCV 87.9 fL 5 Unknown COMPLETE BLOOD COUNT [id number] MCH 30.2 pg 5 Unknown COMPLETE BLOOD COUNT [id number] MCHC 34.3 g/dL 5 Unknown COMPLETE BLOOD COUNT [id number] PLT 262 10e9/L 08/09/19 15 Unknown COMPLETE BLOOD COUNT [id number] MPV 10.9 fL 5 Unknown COMPLETE BLOOD COUNT [id number] SAM % 58.7 % 5 Unknown COMPLETE BLOOD COUNT [id number] LY % 21.5 % 5 Unknown COMPLETE BLOOD COUNT [id number] MON % 14.0 % 5 Unknown COMPLETE BLOOD COUNT [id number] EOS % 5.3 % 5 Unknown COMPLETE BLOOD COUNT [id number] BASO % 0.5 % 5 Unknown COMPLETE BLOOD COUNT [id number] RDW 13.1 % 5 Unknown COMPLETE BLOOD COUNT [id number] ABS SAM 3.46 10e9/L 015 Unknown COMPLETE BLOOD COUNT [id number] ABS LYMPH 1.27 10e9/L 015 Unknown COMPLETE BLOOD COUNT [id number] ABS MONO 0.83 10e9/L 015 Unknown COMPLETE BLOOD COUNT [id number] ABS EOS 0.31 10e9/L 015 Unknown COMPLETE BLOOD COUNT [id number] ABS BASO 0.03 10e9/L 015 Unknown COMPLETE BLOOD COUNT [id number] RDW-SD 41.2 fL 5 Unknown THYROID STIMULATING HORMONE 78458 TSH 5.395 uIU/ML 08/09/2014 Unknown LIPID GROUP [id number] HDL TEST 52 MG/DL 08/09/2014 Unknown LIPID GROUP [id number] TRIG 113 MG/DL 08/09/2014 Unknown LIP[facility] GROUP 84484 TEST LDL 158 MG/DL 08/09/2014 Unknown L[facility] GROUP 36824 CHOL 233 MG/DL 08/09/2014 Unknown LIP[facility] GROUP 15794 RCHOL/HDL 4.48 RATIO 08/09/2014 Unknow n LIPID GROUP 59588 NON-HDL CH 181 MG/DL 08/09/2014 Unknow n COMPLETE BLOOD COUNT [id number] WBC 6.8 10e9/L 09/09/19 14 Unknown COMPLETE BLOOD COUNT [id number] RBC 5.18 10e12/L 2013 Unknown COMPLETE BLOOD COUNT [id number] HGB 15.2 g/dL 4 Unknown COMPLETE BLOOD COUNT [id number] HCT DET 44.7 % 4 Unknown COMPLETE BLOOD COUNT [id number] MCV 86.3 fL 4 Unknown COMPLETE BLOOD COUNT [id number] MCH 29.3 pg 4 Unknown COMPLETE BLOOD COUNT [id number] MCHC 34.0 g/dL 4 Unknown COMPLETE BLOOD COUNT [id number] PLT 236 10e9/L 09/09/19 14 Unknown COMPLETE BLOOD COUNT [id number] MPV 11.0 fL 4 Unknown COMPLETE BLOOD COUNT [id number] SAM % 58.2 % 4 Unknown COMPLETE BLOOD COUNT [id number] LY % 21.9 % 4 Unknown COMPLETE BLOOD COUNT [id number] MON % 12.5 % 4 Unknown COMPLETE BLOOD COUNT [id number] EOS % 7.3 % 4 Unknown COMPLETE BLOOD COUNT [id number] BASO % 0.1 % 4 Unknown COMPLETE BLOOD COUNT [id number] RDW 13.6 % 4 Unknown COMPLETE BLOOD COUNT [id number] ABS SAM 3.96 10e9/L 014 Unknown COMPLETE BLOOD COUNT [id number] ABS LYMPH 1.49 10e9/L 014 Unknown COMPLETE BLOOD COUNT [id number] ABS MONO 0.85 10e9/L 014 Unknown COMPLETE BLOOD COUNT [id number] ABS EOS 0.50 10e9/L 014 Unknown COMPLETE BLOOD COUNT [id number] ABS BASO 0.01 10e9/L 014 Unknown COMPLETE BLOOD COUNT [id number] RDW-SD 42.3 fL 4 Unknown COMPREHENSIVE METABOLIC 27487 AST 27 U/L 2013 Unknown COMPREHENSIVE METABOLIC 59608 ALT 30 IU/L 2013 Unknown COMPREHENSIVE METABOLIC 34353 BUN 16 MG/DL 2013 Unknown COMPREHENSIVE METABOLIC 31291 ALBUMIN 4.9 GM/DL 2013 Unknown COMPREHENSIVE METABOLIC 35760 CHLORIDE 99 MMOL/L 2013 Unknown COMPREHENSIVE METABOLIC 57884 BILI TOT 0.7 MG/DL 2013 Unknown COMPREHENSIVE METABOLIC 92707 ALK PHOS 53 U/L 2013 Unknown COMPREHENSIVE METABOLIC 65356 SODIUM 137 MMOL/L 09/08 Unknown COMPREHENSIVE METABOLIC 44749 CREATININE 1.01 MG/DL 11/2013 Unknown COMPREHENSIVE METABOLIC 13124 CALCIUM 10.0 MG/DL 09/08 Unknown COMPREHENSIVE METABOLIC 14723 POTASSIUM 4.4 MMOL/L 09/08 Unknown COMPREHENSIVE METABOLIC 75424 PROT TOT 7.1 GM/DL 2013 Unknown COMPREHENSIVE METABOLIC 48445 Glucose 148 MG/DL 2013 Unknown COMPREHENSIVE METABOLIC 98527 BICARB 30 MMOL/L 2013 Unknown COMPREHENSIVE METABOLIC 01705 ANION GAP 8 MEQ/L 2013 Unknown GFR CALC 7029460 GFR AA >60 ML/MIN 09/08/2013 Unknown GFR CALC 1173740 GFR NON-AA >60 ML/MIN 09/08/2013 Unknown FREE T4 01478 FREE T4 1.08 NG/DL 09/08/2013 Unknown GLYCOSYLATED HEMOGLOBIN TEST 72976 A1C HPLC 17233-1 7.3 % 0 09/08/2013 Unknown THYROID STIMULATING HORMONE 29098 TSH 5.454 uIU/ML 09/08/2013 Unknown LIPID GROUP 77064 HDL TEST 59 MG/DL 09/08/2013 Unknown LIPID GROUP 71755 TRIG 92 MG/DL 09/08/2013 Unknown LIPID GROUP 29379 TEST LDL 83 MG/DL 09/08/2013 Unknown LIPID GROUP 94657 CHOL 160 MG/DL 09/08/2013 Unknown LIPID GROUP 87512 RCHOL/HDL 2.71 RATIO 09/08/2013 Unknow n VITAMIN B 12 FOLIC ACID 77629|43308 VIT B 12 467 PG/ML 12/2012 Unknown VITAMIN B 12 FOLIC ACID 34474|56018 FOLIC ACID 12.2 NG/ML Unknown VITAMIN B 12 FOLIC ACID 32115|19224 VIT B 12 467 PG/ML 12/2012 Unknown THYROID STIMULATING HORMONE 08072 TSH 4.557 uIU/ML 03/12/2013 Unknown HEMOGLOBIN A1C (GLYCOSYLATED) 6178880 A1C HPLC 54637-3 7.6 % 03/12/2013 Unknown VITAMIN D TOTAL (25 HYDROXY) 84718 VIT D TOTL 17 NG/ML 03/12/2013 Unknown FREE T4 94644 FREE T4 1.07 NG/DL 03/12/2013 Unknown URIC ACID 90740 URIC ACID 5.2 MG/DL 03/12/2013 Unknown Procedures Procedure Codes Date THER/PROPH/DIAG INJ SC/IM CPT-4: 86395 05/13/2019 TRIAMCINOLONE ACET INJ NOS CPT-4: J3301 05/13/2019 DEXAMETHASONE SODIUM PHOS CPT-4: J1100 05/13/2019 THER/PROPH/DIAG INJ SC/IM CPT-4: 22209 02/22/2019 TRIAMCINOLONE ACET INJ NOS CPT-4: J3301 02/22/2019 FLU VACC PRSV FREE INC ANTIG 65 AND OLDER CPT-4: 42699 04/21/2018 ADMIN INFLUENZA VIRUS VAC CPT-4: G0008 04/21/2018 PRESCRIP TRANSMIT VIA ERX SY CPT-4: G8553 04/21/2018 DESTRUCT PREMALG LESION (Cryosurgery) CPT-4: 69640 FLU VACC PRSV FREE INC ANTIG 65 AND OLDER CPT-4: 55679 04/22/2017 ADMIN INFLUENZA VIRUS VAC CPT-4: G0008 04/22/2017 PRESCRIP TRANSMIT VIA ERX SY CPT-4: G8553 10/10/2016 PRESCRIP TRANSMIT VIA ERX SY CPT-4: G8553 08/29/2015 ROUTINE VENIPUNCTURE CPT-4: 87796 07/26/2015 ASSAY OF FREE THYROXINE CPT-4: 10518 07/26/2015 ASSAY THYROID STIM HORMONE CPT-4: 64743 07/26/2015 COMPREHEN METABOLIC PANEL CPT-4: 44858 07/26/2015 COMPLETE CBC W/AUTO DIFF WBC CPT-4: 03647 07/26/2015 LIPID PANEL CPT-4: 59693 07/26/2015 ASSAY OF PSA TOTAL CPT-4: 79126 07/26/2015 A1C HPLC CPT-4: 61288 07/26/2015 ROUTINE VENIPUNCTURE CPT-4: 92354 01/17/2015 ASSAY OF FREE THYROXINE CPT-4: 60746 01/17/2015 ASSAY THYROID STIM HORMONE CPT-4: 28115 01/17/2015 COMPREHEN METABOLIC PANEL CPT-4: 28786 01/17/2015 COMPLETE CBC W/AUTO DIFF WBC CPT-4: 44648 01/17/2015 A1C HPLC CPT-4: 77388 01/17/2015 VITAMIN B-12 CPT-4: 59887 01/17/2015 PPPS, subseq visit CPT-4: G0439 08/04/2014 PRESCRIP TRANSMIT VIA ERX SY CPT-4: G8553 02/18/2014 FLUZONE, 5ML (Medicare) CPT-4: Q2038 07/22/2013 ADMIN INFLUENZA VIRUS VAC CPT-4: G0008 07/22/2013 PRESCRIP TRANSMIT VIA ERX SY CPT-4: G8553 04/28/2013 ROUTINE VENIPUNCTURE CPT-4: 53927 03/12/2013 VITAMIN D TOTAL (25 HYDROXY) CPT-4: 60959 03/12/2013 VITAMIN B 12 FOLIC ACID CPT-4: 36109|47891 03/12/2013 A1C GLYCOSYLATED HEMOGLOBIN TEST CPT-4: 14390 013 ASSAY OF BLOOD/URIC ACID CPT-4: 71512 03/12/2013 ASSAY OF FREE THYROXINE CPT-4: 50086 03/12/2013 ASSAY THYROID STIM HORMONE CPT-4: 92021 03/12/2013 CUR TOBACCO NON-USER CPT-4: G8457 03/11/2013 [...] 1: 156/70 Code: 8480-6 BMI: 35.0 Code: 21460-2 Heart Rate 1: 68 bpm Height: 5'10" Respiratory Rate: 20 bpm SpO2: 95% Tempera ture: 36.5 (C) / 97.7 (F) Weight: 244 lbs 04/21/2018 Blood Pressure 1: 124/80 Code: 8480-6 BMI: 34.4 Code: 55500-1 Heart Rate 1: 80 bpm Height: 5'10" Respiratory Rate: 20 bpm SpO2: 96% Tempera ture: 37.0 (C) / 98.6 (F) Weight: 240 lbs 01/06/2018 Blood Pressure 1: 138/82 Code: 8480-6 BMI: 33.9 Code: 49395-8 Heart Rate 1: 96 bpm Height: 5'10" Respiratory Rate: 24 bpm SpO2: 98% Tempera ture: 35.9 (C) / 96.6 (F) Weight: 236 lbs 10/22/2017 Blood Pressure 1: 144/70 Code: 8480-6 BMI: 34.7 Code: 77972-3 Heart Rate 1: 72 bpm Height: 5'10" Respiratory Rate: 20 bpm SpO2: 96% Tempera ture: 36.9 (C) / 98.4 (F) Weight: 242 lbs 04/22/2017 Blood Pressure 1: 146/82 Code: 8480-6 BMI: 32.9 Code: 86636-0 Heart Rate 1: 104 bpm Height: 5'10" Respiratory Rate: 20 bpm SpO2: 95% Tempera ture: 36.9 (C) / 98.5 (F) Weight: 229 lbs 10/10/2016 Blood Pressure 1: 124/64 Code: 8480-6 BMI: 32.9 Code: 30730-3 Heart Rate 1: 64 bpm Height: 5'10" [...] 1: 146/90 Code: 8480-6 BMI: 34.1 Code: 83567-4 Heart Rate 1: 80 bpm Height: 5'10" Respiratory Rate: 20 bpm Temperature: 36 .8 (C) / 98.2 (F) Weight: 238 lbs 01/17/2015 Blood Pressure 1: 116/60 Code: 8480-6 BMI: 32.7 Code: 93289-4 Heart Rate 1: 84 bpm Height: 5'10" Respiratory Rate: 20 bpm Temperature: 36 .7 (C) / 98.0 (F) Weight: 228 lbs 09/29/2014 Blood Pressure 1: 136/78 Code: 8480-6 BMI: 33.9 Code: 91105-7 Heart Rate 1: 80 bpm Height: 5'10" Respiratory Rate: 20 bpm Temperature: 36 .6 (C) / 97.9 (F) Weight: 236 lbs 08/04/2014 Blood Pressure 1: 132/70 Code: 8480-6 BMI: 32.9 Code: 29627-7 Heart Rate 1: 72 bpm Height: 5'10" Respiratory Rate: 20 bpm Temperature: 36 .7 (C) / 98.0 (F) Weight: 229 lbs 02/18/2014 Blood Pressure 1: 124/82 Code: 8480-6 Heart Rate 1: 82 bpm Respiratory Rate: 18 bpm Temperature: 36.4 (C) / 97.5 (F) Weight: 232 lbs 07/29/2013 Blood Pressure 1: 146/80 Code: 8480-6 BMI: 34.1 Code: 40236-8 Heart Rate 1: 64 bpm Height: 5'10" Respiratory Rate: 20 bpm Temperature: 36 .9 (C) / 98.5 (F) Weight: 238 lbs 05/26/2013 Blood Pressure 1: 142/90 Code: 8480-6 BMI: 34.0 Code: 54440-8 Heart Rate 1: 84 bpm Height: 5'10" Respiratory Rate: 20 bpm Temperature: 36 .7 (C) / 98.0 (F) Weight: 237 lbs 04/28/2013 Blood Pressure 1: 118/78 Code: 8480-6 BMI: 32.9 Code: 43658-2 Heart Rate 1: 74 bpm Height: 5'10" Respiratory Rate: 20 bpm Temperature: 36 .1 (C) / 97.0 (F) Weight: 229 lbs 03/11/2013 Blood Pressure 1: 146/80 Code: 8480-6 BMI: 31.5 Code: 00111-4 Heart Rate 1: 80 bpm Height: 6' [...] care Encounters Encounter Performer Location Codes Date ([id number]) OFFICE/OUTPATIENT VISIT EST Diagnosis: Esophageal reflux[ICD10: K21.9] Diagnosis: History of bladder cancer[ICD10: Z85.51] Xiomara BETTENCOURT [employer] CPT-4: 68630 12/07/2019 ([id number]) OFFICE/OUTPATIENT VISIT EST Diagnosis: DM w/o complication type II, uncontrolled[ICD10: E11.65] Diagnosis: Other dyspnea and respiratory abnormality[ICD10: R06.09] Xiomara BETTENCOURT [employer] CPT-4: 99363 10/27/2019 ([id number]) OFFICE/OUTPATIENT VISIT EST Diagnosis: Chronic obstructive pulmonary disease, unspecified[ICD10: J44.9] Diagnosis: DM w/o complication type II, uncontrolled[ICD10: E11.65] Diagnosis: Edema[ICD10: R60.9] Xiomara BETTENCOURT [employer] CPT-4: 31886 10/20/2019 ([id number]) OFFICE/OUTPATIENT VISIT EST Diagnosis: Other dyspnea and respiratory abnormality[ICD10: R06.09] Diagnosis: Obstructive sleep apnea[ICD10: G47.33] Diagnosis: Hypotension[ICD10: I95.9] Xiomaradaniel Bettencourt [facility] CPT -4: 24081 10/12/2019 ([id number]) OFFICE/OUTPATIENT VISIT EST Diagnosis: Upper respiratory infection[ICD10: J06.9] Penniefede BRADLEY Elvia [employer] CPT-4: 68970 06/02/2019 ([id number]) OFFICE/OUTPATIENT VISIT EST Diagnosis: Sinusitis[ICD10: J32.9] Diagnosis: Allergic rhinitis[ICD10: J30.9] Pennie RENAEQUELINE Elvia [facility]OURT [employer] CPT-4: 57692 05/13/2019 ([id number]) OFFICE/OUTPATIENT VISIT EST Diagnosis: Pneumonia[ICD10: J18.9] Pennie ROSENBAUM [facility] CPT-4: 44376 04/26/2019 ([id number]) OFFICE/OUTPATIENT VISIT EST Diagnosis: Acute sinusitis, unspecified[ICD10: J01.90] Pennie BETTENCOURT [facility] CPT-4: 38631 02/22/2019 ([id number]) OFFICE/OUTPATIENT VISIT EST Diagnosis: Cervicalgia[ICD10: M54.2] Xiomara MAGALLON [facility] CPT-4: 78744 11/25/2018 ([id number]) OFFICE/OUTPATIENT VISIT EST Diagnosis: Acute sinusitis, unspecified[ICD10: J01.90] Diagnosis: Myalgia, unspecified site[ICD10: M79.10] Diagnosis: Cervicalgia[ICD10: M54.2] [facility]: 73097 11/19/2018 ([id number]) OFFICE/OUTPATIENT VISIT EST Diagnosis: Low back pain[ICD10: M54.5] Diagnosis: Essential (primary) hypertension[ICD10: I10] Diagnosis: 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, 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] Diagnosis: Paroxysmal atrial fibrillation[ICD10: I48.0] Xiomara BETTENCOURT [facility] CPT-4: 46443 07/22/2018 ([id number]) OFFICE/OUTPATIENT VISIT EST Diagnosis: Type 2 diabetes mellitus with diabetic neuropathy, unspecified[ICD10: E11.40] Diagnosis: Hyperlipidemia, unspecified[ICD10: E78.5] Diagnosis: Essential (primary) hypertension[ICD10: I10] Diagnosis: Chronic kidney disease, stage 1[ICD10: N18.1] Diagnosis: Benign prostatic hyperplasia with lower urinary tract symptoms[ICD10: N40.1] Diagnosis: FLU VACCINE[ICD10: Z23] Xiomara ROSENBAUM [facility] CPT-4: 99628 04/21/2018 OFFICE/OUTPATIENT VISIT EST Diagnosis: Type 2 diabetes mellitus with hyperglycemia[ICD10: E11.65] Diagnosis: Essential (primary) hypertension[ICD10: I10] Diagnosis: Mixed hyperlipidemia[ICD10: E78.2] Diagnosis: Other fatigue[ICD10: R53.83] Pennie Pizarro XIOMARA DelphineEdvin REED [employer] [facility] CPT-4: 12123 01/06/2018 ([id number]) OFFICE/OUTPATIENT VISIT EST Diagnosis: Type 2 diabetes mellitus with diabetic neuropathy, unspecified[ICD10: E11.40] Diagnosis: Essential (primary) hypertension[ICD10: I10] Diagnosis: Pain in right thigh[ICD10: M79.651] Diagnosis: Pain in left leg[ICD10: M79.605] Diagnosis: Localized swelling, mass and lump, left lower limb[ICD10: R22.42] Diagnosis: OSTEOARTHRISIS MULTI SITES[ICD10: M19.90] Diagnosis: FLU VACCINE[ICD10: Z23] Xiomara LARA DelphineEdvin REED [employer] [facility] CPT-4: 93269 04/22/2017 ([id number]) OFFICE/OUTPATIENT VISIT EST Diagnosis: Essential (primary) hypertension[ICD10: I10] Diagnosis: Type 2 diabetes mellitus with hyperglycemia[ICD10: E11.65] Diagnosis: Angina pectoris, unspecified[ICD10: I20.9] Xiomara Renonelson LARA DelphineEdvin REED [employer] [facility] CPT-4: 14613 10/10/2016 ([id number]) OFFICE/OUTPATIENT VISIT EST Diagnosis: Cough[ICD10: R05] Diagnosis: Wheezing[ICD10: R06.2] Diagnosis: Chronic obstructive pulmonary disease, unspecified[ICD10: J44.9] Shannan Gan REED [employer] [facility] CPT-4: 62933 08/31/2015 OFFICE/OUTPATIENT VISIT EST Diagnosis: Acute bronchitis, unspecified[ICD10: J20.9] Diagnosis: Wheezing[ICD10: R06.2] Kelsie LARA [facility]Edvin [facility] [employer] [facility] CPT-4: 93094 08/29/2015 ([id number]) OFFICE/OUTPATIENT VISIT EST Diagnosis: Type 2 diabetes mellitus with diabetic neuropathy, unspecified[ICD10: E11.40] Diagnosis: Hyperlipidemia, unspecified[ICD10: E78.5] Diagnosis: Essential (primary) hypertension[ICD10: I10] Diagnosis: Encounter for general adult medical examination without abnormal findings[ICD10: Z00.00] Xiomara BETTENCOURT [facility] CPT-4: 70690 07/26/2015 OFFICE/OUTPATIENT VISIT EST Diagnosis: Type 2 diabetes mellitus with hyperglycemia[ICD10: E11.65] Diagnosis: Unspecified osteoarthritis, unspecified site[ICD10: M19.90] Diagnosis: Other instability, right knee[ICD10: M25.361] Kelsie BETTENCOURT DO [facility] CPT-4: 44084 07/24/2015 ([id number]) OFFICE/OUTPATIENT VISIT EST Diagnosis: Pain in leg, unspecified[ICD10: M79.606] Diagnosis: Type 2 diabetes mellitus with diabetic neuropathy, unspecified[ICD10: E11.40] Xiomara AkersEdvin KODAK [facility] CPT-4: 34574 05/01/2015 ([id number]) OFFICE/OUTPATIENT VISIT EST Diagnosis: MALAISE AND FATIGUE[ICD9: 780.79] Diagnosis: 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, 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] Diagnosis: CAD[ICD9: 414.00] Diagnosis: ANEMIA NOS[ICD9: 285.9] Xiomara ROSENBAUM [facility] CPT-4: 32685 01/17/2015 ([id number]) OFFICE/OUTPATIENT VISIT EST Diagnosis: Skin lesion[ICD9: 709.9] Xiomara HANLINE Elvia GENAO [facility] CPT-4: 57845 09/29/2014 OFFICE/OUTPATIENT VISIT EST Diagnosis: GASTROENTERITIS[ICD9: 558.9] Diagnosis: GERD[ICD9: 530.81] Kelsie BETTENCOURT [facility] CPT-4: 11381 02/18/2014 ([id number]) OFFICE/OUTPATIENT VISIT EST Diagnosis: 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I, UNCONTROLLED[ICD9: 250.02] Xiomara HANLINE DelphineEdvin KODAK [facility] CPT-4: 00251 07/29/2013 ([id number]) OFFICE/OUTPATIENT VISIT EST Diagnosis: FLU VACCINE[ICD9: V04.81] Xiomara Renovondaer XIOMARADANIEL MAGALLON [facility] CPT-4: 33112 07/22/2013 ([id number]) OFFICE/OUTPATIENT VISIT EST Diagnosis: 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I, UNCONTROLLED[ICD9: 250.02] Diagnosis: HYPERTENSION[ICD9: 401.9] Xiomara MAGALLON [facility] CPT-4: 52495 05/26/2013 ([id number]) OFFICE/OUTPATIENT VISIT EST Diagnosis: MONONEURITIS[ICD9: 355.9] Diagnosis: RESTLESS LEGS SYNDROME[ICD9: 333.94] Diagnosis: HYPERTENSION[ICD9: 401.9] Diagnosis: CAD[ICD9: 414.00] Diagnosis: Weakness[ICD9: 780.79] Xiomara [facility] CPT-4: 33604 04/28/2013 ([id number]) OFFICE/OUTPATIENT VISIT EST Diagnosis: 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[ICD9: 250.01] Diagnosis: MONONEURITIS[ICD9: 355.9] Diagnosis: HYPERLIPIDEMIA NEC/NOS[ICD9: 272.4] Diagnosis: CAD[ICD9: 414.00] [facility] C[facility]: 11700 03/12/2013 OFFICE/OUTPATIENT VISIT NEW Diagnosis: CAD[ICD9: 414.00] Diagnosis: HYPERLIPIDEMIA NEC/NOS[ICD9: 272.4] Diagnosis: HYPERTENSION[ICD9: 401.9] Diagnosis: Neuropathy[ICD9: 355.9] Diagnosis: RESTLESS LEGS SYNDROME[ICD9: 333.94] [facility] CPT-[facility]: 99927 03/11/2013 Plan of Care Planned Activity Notes [...] : R06.09 10/27/2019 Appointment: Xiomara Bettencourt [facility] [facility] 10/27/2019 Patient Education: gabapentin- [employer] Coupon [phone] [email or web address]/resources/getResource/[email or web address] Completed 10/27/2019 Visit Diagnosis Plan: DM w/o [...] : J44.9 10/20/2019 Appointment: Xiomara Bettencourt [facility]Ptel[facility] [facility] 10/20/2019 Patient Education: furosemide- [employer] Coup[employer] [phone] https://[email or web address]/resources/getResource/61/[email or web address] Completed 10/20/2019 Visit Diagnosis Plan: Obstructive sleep [...] : I95.9 10/12/2019 Appointment: Xiomara Bettencourt WPtel: [address] [place] [address] TELEMEDICINE 10/12/2019 Appointment: Xiomara eBttencourt WPtel: [address] [place] [address] RESCHEDULED 09/23/2019 Care Plan: COMPREHEN METABOLIC PANEL SERGEI NC : 41404-0 Pending 09/20/2019 Care Plan: LIPID PANEL LOINC : 67432-6 Pending 09/20/2019 Care Plan: A1C HPLC LOINC : 77241-3 Pending 09/20/2019 Care Plan: COMPLETE CBC W/AUTO DIFF WBC LOINC : 68749-2 Pending 09/20/2019 Visit Diagnosis Plan: Upper respiratory infection Disc ussion: discussed that most likely viral. push fluids and rest through the week. patient has left over levaquin at home (5 days worth). instructed patient to start taking if he gets worse later this week and to call us next week if no improvement. ICD-9 : 465.9 ICD-10 : J06.9 06/02/2019 Appointment: Pennie Pizarro [address] [place] [address] ACUTE ILLNESS 06/02/2019 Visit Diagnosis Plan: Allergic [...] ICD-10 : J30.9 05/13/2019 Appointment: Pennie Pizarro [address] [place] [address] ACUTE ILLNESS 05/13/2019 Appointment: Xiomara Bettencourt WPtel: [phone] CANCELED 04/27/2019 Visit Diagnosis Plan: Pneumonia Discussion: will obtai n records from urgent care. instructed to finish out doxy. no rhonchi or crackles auscultated. symbicort sample given to patient with instructions to use bid. call office later this week with new or worsening symptoms. ICD-9 : 486 ICD-10 : J18.9 04/26/2019 Appointment: Pennie Pizarro [address] [place] [address] FOLLOW UP 04/26/2019 Visit Diagnosis Plan: Acute [...] ICD-10 : J01.90 02/22/2019 Appointment: Pennie Pizarro [address] [place] [address] ACUTE ILLNESS 02/22/2019 Patient Education: prednisone- [employer] Coupon [phone] [email or web address]/[email or web address]/[email or web address] Completed 02/22/2019 Visit Diagnosis Plan: Cervicalgia Discussion: Check Ce rvical Spine X-ray Will likely need PT ICD-9 : 723.1 ICD-10 : M54.2 11/25/2018 Appointment: Xiomara Bettencourt WPtel: [phone] [phone] ACUTE ILLNESS 11/25/2018 Visit Plan: Saline nasal [...] prn. Tyle... 11/19/2018 Appointment: Xiomara Bet[facility]courttel: [phone] [facility] [facility] 11/19/2018 Patient Education: baclofen- [employer] Coupon [phone] https://[email or web address]/resources/getResource/[email or web address] Completed 11/19/2018 Visit Diagnosis Plan: Paroxysmal atrial [...] I10 07/22/2018 Appointment: Xiomara Bettencourt [facility]Ptel[facility] [phone] [facility] [facility] FOLLOW [facility] 07/22/2018 Visit Diagnosis [...] Trial of flomax Call in 1 mo [facility] on how doing Follow Up: 4 months ICD-9 : 600.21 ICD-10 : N40.1 04/21/2018 Appointment: Xiomara Bettencourt WPtel[facility] FO[facility] UP 04/21/2018 Patient Education: Patient [...] ICD-10 : E78.2 01/06/2018 Appointment: Pennie Pizarro [address] [place] [address] MEDICATION REVIEW 01/06/2018 Patient Education: Patient Medication Summary Completed 01/06/2018 Appointment: Xiomara Bettencourt WPtel: [address] [place] [address] US NO SHOW 01/05/2018 Appointment: Xiomara Bettencourt WPtel: [address] [place] [address] US CANCELED 12/31/2017 Visit Diagnosis Plan: Actinic keratosis Discussion: Cr yotherapy as above but will see derm if lesions do not resolve ICD-9 : 702.0 ICD-10 : L57.0 10/22/2017 Appointment: Xiomara eBttencourt WPtel: [address] [place] [address] ACUTE ILLNESS 10/22/2017 Patient Education: Patient Medication [...] : M79.605 04/22/2017 Appointment: Xiomara Bettencourt WPtel[facility] [facility] 04/22/2017 Patient Education: Patient Medication Summary Completed 04/22/2017 Patient Education: Patient Medication Summary Completed 04/16/2017 Care Plan: COMPREHEN METABOLIC PANEL SERGEI NC : 72295-1 Pending 04/16/2017 Care Plan: LIPID PANEL LOINC : 55668-2 Pending 04/16/2017 Care Plan: CBC Pending 04/16/2017 Care Plan: A1C HPLC LOINC : 55544-7 Pending 04/16/2017 Referral: Inocencio Goodson WPtel: [address] [place] [address] [id number] [place] Referral Appointment Confirmed 10/14/2016 Visit Diagnosis Plan: Type 2 diabetes mellitus with hy perglycemia Discussion: Continue toujeo Accuchecks BID Follow Up: 4 months ICD-9 : 250.02 ICD-10 : E11.65 10/10/2016 Visit Diagnosis Plan: Angina pectoris, unspecified Dis cussion: Continue imdur and see cardiology To ER if chest pain returns ICD-9 : 413.9 ICD-10 : I20.9 10/10/2016 Appointment: Xiomara Bettencourt [facility]Ptel[facility] [phone] [facility] [facility] 10/10/2016 Patient Education: Patient Medication Summary Completed 10/10/2016 Patient Education: Patient Medication Summary Completed 09/16/2016 Care Plan: COMPREHEN METABOLIC PANEL SERGEI NC : 43717-8 Pending 09/16/2016 Care Plan: ASSAY THYROID STIM HORMONE Pen ding 09/16/2016 Care Plan: ASSAY OF FREE THYROXINE Pendin g 09/16/2016 Care Plan: LIPID PANEL LOINC : 29701-0 Pending 09/16/2016 Care Plan: CBC Pending 09/16/2016 Care Plan: A1C HPLC LOINC : 79024-0 Pending 09/16/2016 Visit Plan: CXR now to [...] with CXR results 08/31/2015 Appointment: Shannan Grimes [address] [place] [address] 08/31 confirmed- SP ACUTE ILLNESS 08/31/2015 Patient Education: Patient Medication Summary Completed 08/31/2015 Visit Plan: Albuterol INH via SVN every 4 hours Prednisone 20 mg PO BID Notify for worsening symptoms 08/29/2015 Appointment: Kelsie Grubbs WPtel: [address] [place] [address] ACUTE ILLNESS 08/29/2015 Patient Education: Patient Medication Summary Completed 08/29/2015 Appointment: Xiomara Bettencourt WPtel: [address] [place], [place] [phone] US LAB 07/26/2015 Patient Education: Patient Medication Summary Completed 07/26/2015 Visit Plan: Return in am for fasting lab s - CBC, CMP, TSH, Free T4, HgbA1C Change Levemir to Toujeo - Continue 35 Units q am - sample given Start physical Therapy for increased quadriceps strengthening and decreased pain in knees, bilaterally. 07/24/2015 Appointment: Kelsie Grubbs WPtel: [address] [place], [place] [phone] 07/21 appt confirmed cn FOLLOW UP 07/24/19 16 Appointment: Kelsie Grubbs WPtel: [address] [place], [place] [phone] US FOLLOW UP 07/24/2015 Patient Education: Patient [...] with insulin 05/01/2015 Appointment: Xiomara Bettencourt WPtel: [address] [place] [address] 04/28 confirmed~ ACUTE ILLNESS 05/01/2015 Patient Education: Patient Medication Summary Completed 05/01/2015 Patient Education: Patient Medication Summary Completed 01/19/2015 Care Plan: URINALYSIS AUTO W/O SCOPE SERGEI [place] : [id number] Pending 01/19/2015 Visit Plan: I have went through his medi cations in past and stopped meds but he adjusts his meds on his own and has restarted some Stop Amaryl Once again discussed not using indomethacin routinely due to taking plavix and aspirin daily and care home use is dangerous Check CBC, CMP, TSH, free T4, B12 and HbA1C Patient has seen Cardiology recently but no cardiac cath done--had chemical stress test 01/17/2015 Appointment: Xiomara Bettencourt WPtel: [address] [place] [address] 01/16 vm ACUTE ILLNESS 01/17/2015 Patient Education: Patient Medication Summary Completed 01/17/2015 Visit Plan: See Dr. Garvin for removal 09/29/2014 Appointment: Xiomara Bettencourt WPtel: [address] [place] [address] ACUTE ILLNESS 09/29/2014 Referral: Colt Garvin WPtel: [address] Referral Initiated 09/29/2014 Patient Education: Patient Medication Summary Completed 09/29/2014 Visit Plan: Check CBC, CMP, TSH, free T4 , HbA1C, Lipids Accuchecks daily alternating times Patient has been adjusting own meds and has not taken any cholesterol meds for sometime Will check into surgery on right knee at [facility] Check carotid dopplers 08/04/2014 Appointment: Xiomara Bettencourt WPtel: [address] [place] [address] Annual Well Visit 08/04/2014 Patient Education: Patient Medication Summary Completed 08/04/2014 Appointment: Kelsie Grubbs WPtel: [address] [place] [address] ACUTE ILLNESS 02/18/2014 Patient Education: Patient Medication Summary Completed 02/18/2014 Patient Education: [facility] - Saving AutoInj - 18+ - Dynamic Portal ID Completed 02/18/2014 Appointment: Xiomara Bettencourt WPtel: [address] [place], [place] [id number] LAB 09/08/2013 Visit Plan: Check fasting lab in 1mo Con tinue Lantus and accuchecks at least BID 07/29/2013 Appointment: Xiomara Bettencourt WPtel: [address] [place] [address] FOLLOW UP 07/29/2013 Patient Education: Patient Medication Summary Completed 07/29/2013 Appointment: Xiomara Bettencourt WPtel: [address] [place], [place] [id number] INJECTION 07/22/2013 Patient Education: Patient Medication Summary Completed 07/22/2013 Visit Plan: Pt has been self-adjusting m eds Stop metformin and amaryl Use Levemir 25u sc BID and call in 1wk with BS readings 05/26/2013 Appointment: Xiomara Bettencourt WPtel: [address] [place], [place] [id number] FOLLOW UP 05/26/2013 Patient Education: Patient Medication Summary Completed 05/26/2013 Visit Plan: DC Metformin Increase Lantus to 30u sc daily Change lisinopril to lisinopril HCT 20/25mg q AM Continue Gabapentin at current dose 04/28/2013 Appointment: Xiomara Bettencourt WPtel: [address] [place], [place] [id number] FOLLOW UP 04/28/2013 Patient Education: Patient Medication Summary Completed 04/28/2013 [facility]ment[facility] [phone] [id number] [facility] 03/12/2013 Patient Education: Patient Medication Summary Completed 03/12/2013 Visit Plan: Trial of neurontin 400mg q H S Obtain most recent lab results Change levemir to lantus per pt request Pt goes for sleep study tonite 03/11/2013 Appointment: [facility] Bettencourt [facility] [phone] [id number] 02/01paperwork mailed 03/10 confirmed with spouse [...] to taking plavix and aspirin daily and care home use is dangerous Check CBC, CMP, TSH, [...] check into surgery on right knee at [facility] Check carotid dopplers . Check [...]
--- OUTSIDE RECORDS SUMMARY | 2020-02-02 21:36 | XMS REPORT | CCD ---
Author Author Sheng Bettencourt D.O. Organization [facility] DelphineEdvin BETTENCOURT DO [facility] Address [address] [place] [address] Phone Care Team Providers Care Supervisor Metalizing Name Role Phone PP Unavailable CCM Unavailable Summary Purpose Interface Exchange Insurance Providers Payer name Policy type / Coverage type Covered democrat ID Effective Begin Date Effective End Date WPS MEDICARE PART B [place] Medicare Part B [id number] 2018 Unknown [facility] Medicare Part B [id number] 2018 Un known Family history Mother Diagnosis Age At Onset Diabetes mellitus Type 2 Unknown Hypercholesterolemia Unknown Father Diagnosis Age At Onset No Family Disease Entered N/A Social History Social History Element Codes Description Effective Dates Marital status Unknown 03/11/2013 Number of children Unknown 4 03/11/2013 Employment Unknown Retired 03/11/[address]: 4414028 Former smoker 03/11/[address]: 765834 Currently drinks alc ohol Socially 03/11/2013 Has [...] Problems Condition Codes Effective Dates Condition Status DM w/o complication type II, uncontrolled ICD-9: [...] Fill Instructions Flomax 0.4 mg capsule RxNorm: 286293 TAKE TWO CAPSULES BY MOUTH EVERY EVENING 11/11/2019 No Stop Date Active glimepiride 2 mg tablet RxNorm: 801518 1 Tablet(s) Oral QD 10/27/19 No Stop Date Active gabapentin 400 mg capsule RxNorm: 350481 1 Capsule(s) Oral QPM 10/0604/24/2020 Active potassium chloride ER 20 mEq tablet,extended release RxNorm: 312170 1 Tablet(s) Oral QD to take with lasix 10/20/2019 10/26/2019 Inactive furosemide 40 mg tablet RxNorm: 491417 1 Tablet(s) Oral QAM for swelling 10/20/2019 10/26/2019 Inactive albuterol sulfate HFA 90 mcg/actuation aerosol inhaler RxNor m: 8445069 1-2 Puff(s) Inhalation as needed 10/12/2019 No Stop Date Active Zyrtec 10 mg tablet RxNorm: 3178402 1 Tablet(s) Oral QAM 10/12/2019 No Stop Date Active aspirin 81 mg tablet,delayed release RxNorm: 878577 1 Tablet(s) Oral QD 10/12/2019 No Stop Date Active Symbicort 160 mcg-4.5 mcg/actuation HFA aerosol inhaler RxNo rm: 4911890 2 Puff(s) Inhalation QD 10/12/2019 No Stop Date Active lisinopril 20 mg tablet RxNorm: 046992 1 Tablet(s) Oral QD 10/12/19 20 01/10/2020 Active simvastatin 20 mg tablet RxNorm: 045292 1 Tablet(s) Ora l QD Needs updated fasting labs 09/20/2019 12/19/2019 Active Needs updated fa sting labs before 90 day refill Flomax 0.4 mg capsule RxNorm: 320441 TAKE TWO CAPSULES BY MOUTH EVERY EVENING 08/03/2019 11/10/2019 Inactive gabapentin 400 mg capsule RxNorm: 759399 TAKE ONE CAPSU LE BY MOUTH EVERY EVENING 08/02/2019 10/26/2019 Inactive simvastatin 20 mg tablet RxNorm: 502707 1 Tablet(s) Ora l QD Needs updated fasting labs 07/21/2019 08/19/2019 Inactive Needs updated fa sting labs before 90 day refill simvastatin 20 mg tablet RxNorm: 300325 1 Tablet(s) Ora l QD Needs updated fasting labs 06/23/2019 07/20/2019 Inactive Needs updated fa sting labs before 90 day refill Flomax 0.4 mg capsule RxNorm: 137747 1 Capsule(s) Oral QD 05/13/2019 10/19/2019 Inactive Flomax 0.4 mg capsule RxNorm: 480743 TAKE TWO CAPSULES BY MOUTH EVERY EVENING 03/19/2019 05/12/2019 Inactive Augmentin 500 mg-125 mg tablet RxNorm: 660616 1 Tablet(s) PO BID 03/03/2019 Inactive baclofen 10 mg tablet RxNorm: 187308 TAKE ONE TABLET BY MOUTH EVERY NIGHT AT BEDTIME FOR PAIN OR SPASMS 01/14/2019 05/12/2019 Inactive Flomax 0.4 mg capsule RxNorm: 165876 TAKE TWO CAPSULES BY MOUTH EVERY EVENING 01/12/2019 03/18/2019 Inactive gabapentin 400 mg capsule RxNorm: 541273 1 Capsule(s) PO QPM 201806/27/2019 Inactive baclofen 10 mg tablet RxNorm: 061479 1 Tablet(s) PO QHS for my n/spasm 12/15/2018 01/13/2019 Inactive simvastatin 20 mg tablet RxNorm: 609590 TAKE ONE TABLET BY MOUT H DAILY 12/11/2018 06/22/2019 Inactive OneTouch Ultra Blue Test Strip RxNorm: Use 1 rigoberto t strip three times daily to check blood sugar (Dx:E11.65) 12/07/2018 No Stop Date Active gabapentin 400 mg capsule RxNorm: 047535 TAKE ONE CAPSU LE BY MOUTH EVERY EVENING 12/04/2018 12/29/2018 Inactive baclofen 10 mg tablet RxNorm: 019222 1 Tablet(s) PO QHS for my n/spasm 11/19/2018 12/15/2018 Inactive Flomax 0.4 mg capsule RxNorm: 687372 2 Capsule(s) PO QPM 09/15/2018 0 12/13/2018 Inactive WOULD LIKE 90DS!!! gabapentin 400 mg capsule RxNorm: 820434 TAKE ONE CAPSU LE BY MOUTH EVERY EVENING 07/21/2018 10/18/2018 Inactive simvastatin 20 mg tablet RxNorm: 579942 1 Tablet(s) PO QD 06/15/2018 12/10/2018 Inactive Flomax 0.4 mg capsule RxNorm: 713564 TAKE TWO CAPSULES BY MOUTH EVERY EVENING 06/02/2018 09/15/2018 Inactive WOULD LIKE 90DS!!! Flomax 0.4 mg capsule RxNorm: 016869 2 Capsule(s) PO QPM 04/21/2018 1 07/20/2017 Inactive simvastatin 20 mg tablet RxNorm: 255546 1 Tablet(s) PO QD Take 1 tablet by mouth daily. Patient due for labwork before further refill. 04/06/20182017 Inactive simvastatin 20 mg tablet RxNorm: 829286 Tablet(s) TAKE ONE TABLET BY MOUTH DAILY 03/25/2018 06/15/2018 Inactive simvastatin 20 mg tablet RxNorm: 858596 Tablet(s) TAKE ONE TABLET BY MOUTH DAILY due for appt 12/29/2017 03/25/2018 Inactive simvastatin 20 mg tablet RxNorm: 814537 TAKE ONE TABLET BY MOUT H DAILY 09/03/2017 12/29/2017 Inactive simvastatin 20 mg tablet RxNorm: 000953 1 Tablet(s) PO QD 10/22/2016 11/18/2018 Inactive isosorbide mononitrate ER 60 mg tablet,extended release 24 h r RxNorm: 693512 1 Tablet(s) PO QD 10/22/2016 04/21/2017 Inactive isosorbide mononitrate ER 60 mg tablet,extended release 24 h r RxNorm: 280311 1 Tablet(s) PO QD 10/10/2016 10/21/2016 Inactive simvastatin 20 mg tablet RxNorm: 493129 1 Tablet(s) PO QD 10/10/2016 10/21/2016 Inactive gabapentin 400 mg capsule RxNorm: 200931 1 Capsule(s) PO QPM 201609/20/2016 Inactive Toujeo SoloStar 300 unit/mL (1.5 mL) subcutaneous insulin pe n RxNorm: 2507409 35 Unit(s) SQ QAM 07/23/2016 07/22/2016 Inactive Toujeo SoloStar 300 unit/mL (1.5 mL) subcutaneous insulin pe n RxNorm: 7175043 40 Unit(s) SQ QAM 09/01/2015 No Stop Date Active Symbicort 160 mcg-4.5 mcg/actuation HFA aerosol inhaler RxNo rm: 8091917 2 Puff(s) INH BID 08/31/2015 09/09/2015 Inactive prednisone 20 mg tablet RxNorm: 414240 1 Tablet(s) PO BID 08/29/2015 09/02/2015 Inactive albuterol sulfate 2.5 mg/3 mL (0.083 %) solution for n ebulization RxNorm: 174165 1 Unit(s) INH Q4H as needed 08/29/2015 10/09/2016 Inactive levothyroxine 75 mcg tablet RxNorm: 930325 1 Tablet(s) PO QD 201507/27/2015 Inactive levothyroxine 75 mcg tablet RxNorm: 830522 1 Tablet(s) PO QD 201511/18/2018 Inactive levothyroxine 75 mcg tablet RxNorm: 656813 1 Tablet(s) PO QD 201507/27/2015 Inactive lisinopril 20 mg-hydrochlorothiazide 25 mg tablet RxNorm: 19 7887 TAKE ONE TABLET BY MOUTH EVERY MORNING. REPLACES PLAIN LISINOPRIL 03/06/2015 04/21/2017 Inactive lisinopril 20 mg-hydrochlorothiazide 25 mg tablet RxNorm: 19 7887 TAKE ONE TABLET BY MOUTH EVERY MORNING. REPLACES PLAIN LISINOPRIL 09/08/2014 03/05/2015 Inactive allopurinol 100 mg tablet RxNorm: 918377 1 Tablet(s) PO BID 015 10/09/2016 Inactive [SAVINGS FOR NON-COVERED YULIA GS -- BIN:[id number], PCN: [id number], Group: [id number], ID# [id number], Questions: . THIS IS NOT INSURANCE.] levothyroxine 50 mcg tablet RxNorm: 910683 1 Tablet(s) PO QD 201407/26/2015 Inactive [AttnRPh: Saving apply/adjud icate RxGRP:SG20 RxBIN:[id number] RxPCN: ID#:[id number]] Zegerid 40 mg-1.1 gram capsule RxNorm: 949578 1 Capsule(s) PO QD 03/03/2014 Inactive [AttnRPh: Saving apply/adjud icate RxGRP:SG20 RxBIN:[id number] RxPCN: ID#:[id number]] ondansetron 8 mg disintegrating tablet RxNorm: 031253 1 Tablet(s) PO Q8H as needed for [...] 07/28/2013 Inactive gabapentin 400 mg capsule RxNorm: 700213 1 Capsule(s) PO QPM 201207/28/2013 Inactive gabapentin 400 mg capsule RxNorm: 674886 1 Capsule(s) PO QPM 201206/26/2013 Inactive lisinopril 20 mg-hydrochlorothiazide 25 mg tablet RxNorm: 82 3971 1 Tablet(s) PO QAM replaces plain lisinopril 04/28/2013 07/29/2013 Inactive gabapentin 400 mg capsule RxNorm: 635854 1 Capsule(s) PO QPM 201204/27/2013 Inactive gabapentin 400 mg capsule RxNorm: 507298 1 Capsule(s) PO QPM 201203/10/2013 Inactive gabapentin 400 mg capsule RxNorm: 210614 1 Capsule(s) PO QPM 201203/14/2013 Inactive Lantus Solostar 100 unit/mL (3 mL) Sub-Q Insulin Pen RxNorm: 175634 20 Unit(s) SQ QPM 03/11/2013 03/15/2013 Inactive Toujeo SoloStar 300 unit/mL (1.5 mL) subcutaneous insulin pe n RxNorm: 5335272 35 Unit(s) SQ QAM No Start Date Active omeprazole 20 mg capsule,delayed release RxNorm: 524578 1 Capsu le(s) PO QD No Start Date Active isosorbide mononitrate ER 60 mg tablet,extended release 24 h r RxNorm: 608044 1 Tablet(s) PO QD No Start Date Active Eliquis 5 mg tablet RxNorm: 1895608 1 Tablet(s) PO BID No Start Date Active metformin 500 mg tablet RxNorm: 404727 1 Tablet(s) PO BID No Start Da te Active levothyroxine 50 mcg tablet RxNorm: 121594 1 Tablet(s) PO QD No Start Date Active Norvasc 10 mg tablet RxNorm: 865370 1 Tablet(s) PO QHS No Start Date Active Toujeo SoloStar 300 unit/mL (1.5 mL) subcutaneous insulin pe n RxNorm: 8359744 30 Unit(s) SQ QAM No Start Date Active glimepiride 4 mg tablet RxNorm: 041884 1 Tablet(s) PO QHS No Start Date 07/26/2015 Inactive allopurinol 100 mg tablet RxNorm: 358720 1 Tablet(s) PO BID No Star t Date 08/10/2014 Inactive Lantus Solostar 100 unit/mL (3 mL) subcutaneous insulin pen RxNorm: 942632 30 Unit(s) SQ QD No Start Date 08/03/2014 Inactive Levemir FlexTouch 100 unit/mL (3 mL) subcutaneous insulin pe n RxNorm: 319473 25 Unit(s) SQ QAM No Start Date 07/23/2015 Inactive Lantus 100 unit/mL Sub-Q RxNorm: 449649 30 Unit(s) SQ QHS No Start Date 05/25/2013 Inactive Lantus Solostar 100 unit/mL (3 mL) Sub-Q Insulin Pen RxNorm: 828158 20 Unit(s) SQ QPM No Start Date 03/10/2013 Inactive OneTouch Ultra Blue Test Strip RxNorm: Use 1 rigoberto t strip three times daily to check blood sugar (Dx:E11.65) No Start Date 12/06/2018 Inactive Levemir FlexTouch 100 unit/mL (3 mL) subcutaneous insulin pe n RxNorm: 430899 30- 35 Unit(s) SQ QAM No Start Date 07/23/2015 Inactive Levemir Flexpen 100 unit/mL (3 mL) solution subcutaneo us insulin pen RxNorm: 972238 20-25 Unit(s) SQ QD No Start Date 07/28/2013 Inactive lisinopril 20 mg tablet RxNorm: 742108 1 Tablet(s) PO QD No Start D ate 10/11/2019 Inactive indomethacin ER 75 mg capsule,extended release RxNorm: 11561 2 1 Capsule(s) PO QAM No Start Date 04/27/2013 Inactive indomethacin ER 75 mg capsule,extended release RxNorm: 61675 2 1 Capsule(s) PO QD No Start Date 01/16/2015 Inactive Chlortab-4 oral RxNorm: 453966 oral No Start Date 10/11/2019 Inac tive Vitamin D3 5,000 unit tablet RxNorm: 174528 1 Tablet(s) PO QD No St art Date 08/03/2014 Inactive Levemir Flexpen 100 unit/mL (3 mL) solution subcutaneo us insulin Pen RxNorm: 859724 20 Unit(s) SQ QHS No Start Date 03/10/2013 Inactive Vytorin 10 mg-40 mg tablet RxNorm: 9555636 1/2 Tablet(s) PO QD No S tart Date 04/20/2018 Inactive oxymetazoline-menthol 0.05 % nasal spray RxNorm: 0636567 [place] COTY No Start Date 10/11/2019 Inactive Patient states he ta kes every 10 hours Tamia StubbsoStar 300 unit/mL (1.5 mL) subcutaneous insulin pe n RxNorm: 3178556 35 Unit(s) SQ QAM No Start Date 07/22/2016 Inactive Lantus Solostar 100 unit/mL (3 mL) subcutaneous insulin pen RxNorm: 175687 20 Unit(s) SQ QD No Start Date 08/03/2014 Inactive aspirin 81 mg tablet RxNorm: 455349 1 Tablet(s) PO QD No Start Date 0 08/03/2014 Inactive metformin 500 mg tablet RxNorm: 112700 1 Tablet(s) PO BID No Start Date 07/28/2013 Inactive glimepiride 4 mg tablet RxNorm: 392312 1 Tablet(s) PO BID No Start Date 01/16/2015 Inactive glimepiride 4 mg tablet RxNorm: 473521 1 Tablet(s) PO QD No Start D ate 08/03/2014 Inactive levothyroxine 25 mcg tablet RxNorm: 511950 1 Tablet(s) PO QD No Sta rt Date 08/10/2014 Inactive doxycycline oral RxNorm: 59235 oral No Start Date 05/12/2019 Inac tive aspirin 81 mg tablet RxNorm: 999330 1 Tablet(s) PO QD No Start Date 0 07/21/2018 Inactive isosorbide mononitrate ER 60 mg tablet,extended release 24 h r RxNorm: 026587 1 Tablet(s) PO BID No Start Date 01/16/2015 Inactive metformin 500 mg tablet RxNorm: 430794 1 Tablet(s) PO BID No Start Date 04/27/2013 Inactive Plavix 75 mg tablet RxNorm: 152254 1 Tablet(s) PO QD No Start Date Inactive glimepiride 4 mg tablet RxNorm: 877135 1 Tablet(s) PO QPM No Start Date 02/21/2019 Inactive Vytorin 10-40 10 mg-40 mg tablet RxNorm: 7084575 1 Tablet(s) PO QHS No Start Date 08/03/2014 Inactive indomethacin 50 mg capsule RxNorm: 610562 1 Capsule(s) PO QHS No St art Date 01/16/2015 Inactive glimepiride 4 mg tablet RxNorm: 227700 1 Tablet(s) PO BID No Start Date 07/28/2013 Inactive Levemir FlexTouch 100 unit/mL (3 mL) subcutaneous insulin pe n RxNorm: 308508 20 Unit(s) SQ QD No Start Date 04/30/2015 Inactive lisinopril 20 mg tablet RxNorm: 237403 1 Tablet(s) PO BID No Start Date 04/27/2013 Inactive Lantus Solostar SubQ RxNorm: Subcutaneous No Start Date 03/15/2013 I nactive Zantac 150 mg tablet RxNorm: 465978 1 Tablet(s) PO QHS No Start Date 10/11/2019 Inactive allopurinol 300 mg tablet RxNorm: 778398 1 Tablet(s) PO QD No Start Date 08/03/2014 Inactive Fish Oil 1,000 mg capsule RxNorm: 1 Capsule(s) PO QD No Start Date 02/21/2019 Inactive indomethacin 50 mg capsule RxNorm: 023830 1 Capsule(s) PO BID No St art Date 04/20/2018 Inactive levothyroxine 50 mcg tablet RxNorm: 353925 1 Tablet(s) PO QD No Sta rt Date 08/10/2014 Inactive glimepiride 4 mg tablet RxNorm: 238468 1 Tablet(s) PO BID No Start Date 03/15/2013 Inactive indomethacin 50 mg capsule RxNorm: 387169 1 Capsule(s) PO QHS No St art Date 04/27/2013 Inactive Medication Administered No Medication Administered data Immunizations Vaccine Codes Date Status Influenza CVX: 135 04/21/2018 Complete Influenza CVX: 135 04/22/2017 Complete Results Observation Observation Code Item Item Code Result Date S ervice Location [facility] 59954 Cholesterol 209 mg/dL 09/17/2016 Unkno wn [facility] 00049 Triglyceride 111 mg/dL 09/17/2016 Unkn own [facility] 84403 HDL CHOLESTEROL 50 mg/dL 09/17/2016 U nknown [facility] 11840 Chol/HDL Ratio 4.18 ratio 09/17/2016 U nknown [facility] 04368 NON-HDL Chol 159 mg/dL 09/17/2016 Unkn own [facility] 14589 LDL Cholesterol 137 mg/dL 09/17/2016 U nknown MEAN GLUC 9651957 Calc Mean Gluc 151 mg/dL 09/17/2016 Unkn own COMPREHENSIVE METABOLIC 63941 AST 23 U/L 2016 Unknown COMPREHENSIVE METABOLIC 62337 ALT 19 U/L 2016 Unknown COMPREHENSIVE MET[facility]OLIC 16803 BUN 15 mg/dL 2016 Unknown COMPREHENSIVE METABOLIC 21903 ALBUMIN 4.3 g/dL 2016 Unknown COMPREHENSIVE METABOLIC 05815 CHLORIDE 103 mmol/L 09/17 Unknown COMPREHENSIVE METABOLIC 27344 Bili Total 0.6 mg/dL 09/17 Unknown COMPREHENSIVE METABOLIC 18642 ALK PHOS 60 U/L 2016 Unknown COMPREHENSIVE METABOLIC 12158 SODIUM 140 mmol/L 09/17 Unknown COMPREHENSIVE METABOLIC 42172 CREATININE 1.03 mg/dL 09/04 Unknown COMPREHENSIVE METABOLIC 09132 CALCIUM 9.5 mg/dL 2016 Unknown COMPREHENSIVE METABOLIC 90243 POTASSIUM 3.9 mmol/L 09/17 Unknown COMPREHENSIVE METABOLIC 55613 Total Protein 6.9 g/dL Unknown COMPREHENSIVE METABOLIC 95390 Glucose 94 mg/dL 2016 Unknown COMPREHENSIVE METABOLIC 81261 Bicarbonate 28 mmol/L 09/04 Unknown COMPREHENSIVE METABOLIC 04437 AGAP 9 mmol/L 2016 Unknown GFR CALC 7629952 GFR Non Afr Amr >60 mL/min 09/17/2016 Un known GFR CALC 2613862 GFR Afr Amr >60 mL/min 09/17/2016 Unknow n THYROID STIMULATING HORMONE 38717 TSH 4.260 uIU/mL 09/17/2016 Unknown GLYCOSYLATED HEMOGLOBIN TEST 45966 Hgb A1c 08888-7 6.9 % 0 09/17/2016 Unknown FREE T4 20662 T4 Free 1.02 ng/dL 09/17/2016 Unknown COMPLETE BLOOD COUNT [id number] WBC 8.6 10e9/L 07/26/19 16 Unknown COMPLETE BLOOD COUNT [id number] RBC 4.86 10e12/L 2015 Unknown COMPLETE BLOOD COUNT 2134186 HGB 14.6 g/dL 6 Unknown COMPLETE BLOOD COUNT 1834284 HCT DET 43.1 % 6 Unknown COMPLETE BLOOD COUNT 3789215 MCV 88.7 fL 6 Unknown COMPLETE BLOOD COUNT [id number] MCH 30.0 pg 6 Unknown COMPLETE BLOOD COUNT [id number] MCHC 33.9 g/dL 6 Unknown COMPLETE BLOOD COUNT [id number] PLT 267 10e9/L 07/26/19 16 Unknown COMPLETE BLOOD COUNT [id number] MPV 11.5 fL 6 Unknown COMPLETE BLOOD COUNT [id number] SAM % 64.8 % 6 Unknown COMPLETE BLOOD COUNT 3305992 LY % 16.8 % 6 Unknown COMPLETE BLOOD COUNT [id number] MON % 12.5 % 6 Unknown COMPLETE BLOOD COUNT [id number] EOS % 5.6 % 6 Unknown COMPLETE BLOOD COUNT [id number] BASO % 0.3 % 6 Unknown COMPLETE BLOOD COUNT 4156359 RDW 13.4 % 6 Unknown COMPLETE BLOOD COUNT [id number] ABS SAM 5.57 10e9/L 016 Unknown COMPLETE BLOOD COUNT [id number] ABS LYMPH 1.44 10e9/L 016 Unknown COMPLETE BLOOD COUNT [id number] ABS MONO 1.08 10e9/L 016 Unknown COMPLETE BLOOD COUNT [id number] ABS EOS 0.48 10e9/L 016 Unknown COMPLETE BLOOD COUNT [id number] ABS BASO 0.03 10e9/L 016 Unknown COMPLETE BLOOD COUNT [id number] RDW-SD 42.9 fL 6 Unknown PSA EQUIMOLAR MATT 84132 PSA EQ 0.78 NG/ML 6 Unknown THYROID STIMULATING HORMONE 13320 TSH 5.292 uIU/ML 07/26/2015 Unknown GLYCOSYLATED HEMOGLOBIN TEST 02695 A1C HPLC 53872-6 7.0 % 0 07/26/2015 Unknown GFR CALC 4022853 GFR AA >60 ML/MIN 07/26/2015 Unknown GFR CALC 8952339 GFR NON-AA >60 ML/MIN 07/26/2015 Unknown [facility] 25896 HDL TEST 64 MG/DL 07/26/2015 Unknown [facility] 15946 TRIG 58 MG/DL 07/26/2015 Unknown [facility] 35231 TEST LDL 49 MG/DL 07/26/2015 Unknown [facility] 87667 CHOL 125 MG/DL 07/26/2015 Unknown [facility] 21375 RCHOL/HDL 1.95 RATIO 07/26/2015 Unknow n [facility] 33469 NON-HDL CH 61 MG/DL 07/26/2015 Unknow n COMPREHENSIVE METABOLIC 46842 AST 25 U/L 2015 Unknown COMPREHENSIVE METABOLIC 43384 ALT 23 IU/L 2015 Unknown COMPREHENSIVE METABOLIC 61099 BUN 18 MG/DL 2015 Unknown COMPREHENSIVE METABOLIC 57605 ALBUMIN 4.6 GM/DL 2015 Unknown COMPREHENSIVE METABOLIC 44558 CHLORIDE 100 MMOL/L 07/26 Unknown COMPREHENSIVE METABOLIC 20937 BILI TOT 0.5 MG/DL 2015 Unknown COMPREHENSIVE METABOLIC 48500 ALK PHOS 49 U/L 2015 Unknown COMPREHENSIVE METABOLIC 77636 SODIUM 137 MMOL/L 07/26 Unknown COMPREHENSIVE METABOLIC 59081 CREATININE 1.06 MG/DL 07/08 Unknown COMPREHENSIVE METABOLIC 65762 CALCIUM 9.5 MG/DL 2015 Unknown COMPREHENSIVE METABOLIC 54211 POTASSIUM 4.5 MMOL/L 07/26 Unknown COMPREHENSIVE METABOLIC 45172 PROT TOT 6.5 GM/DL 2015 Unknown COMPREHENSIVE METABOLIC 39311 Glucose 109 MG/DL 2015 Unknown COMPREHENSIVE METABOLIC 59629 BICARB 29 MMOL/L 2015 Unknown COMPREHENSIVE METABOLIC 07350 ANION GAP 8 MEQ/L 2015 Unknown FREE T4 53409 FREE T4 1.11 NG/DL 07/26/2015 Unknown CULTURE & SENSITIVITY 61951 PROTEIN UR NEG 015 Unknown [facility]ULTURE & SENSITIVITY 22515 HEMGLBN UR TR 015 Unknown CULTURE & SENSITIVITY 63146 GLUCOSE UR NEG 015 Unknown CULTURE & SENSITIVITY 71610 KETONES UR NEG 015 Unknown CULTURE & SENSITIVITY 38206 PH U 6.5 01/25/20 15 Unknown CULTURE & SENSITIVITY 74291 SP GR U 1.013 01/25/20 15 Unknown CULTURE & SENSITIVITY 79498 BILRUBN UR NEG 015 Unknown CULTURE & SENSITIVITY 67377 LEUKO UR NEG 01/25/20 15 Unknown CULTURE & SENSITIVITY 77581 NITRITE UR NEG 015 Unknown MICR CUL? [id number] SP TO JOHANA? NO 01/24/2015 Unknown MICR CUL? 9877999 APPEAR UR NORMAL 01/24/2015 Unknown MICR CUL? [id number] RBC/uL 2.2 01/24/2015 Unknown MICR CUL? [id number] WBC/uL 2.8 01/24/2015 Unknown MICR CUL? 1961849 SQ EPI/uL 1.0 01/24/2015 Unknown MICR CUL? 5113402 HYALCST/uL 0.25 01/24/2015 Unknown MICR CUL? 5360049 WBC /HPF 1 01/24/2015 Unknown MICR CUL? [id number] RBC /HPF 0 01/24/2015 Unknown GLYCOSYLATED HEMOGLOBIN TEST 13565 A1C HPLC 91518-5 6.6 % 0 01/17/2015 Unknown COMPLETE BLOOD COUNT [id number] WBC 10.1 10e9/L 015 Unknown COMPLETE BLOOD COUNT [id number] RBC 4.60 10e12/L 2014 Unknown COMPLETE BLOOD COUNT 3362113 HGB 14.0 g/dL 5 Unknown COMPLETE BLOOD COUNT 6446218 HCT DET 39.9 % 5 Unknown COMPLETE BLOOD COUNT 1032335 MCV 86.7 fL 5 Unknown COMPLETE BLOOD COUNT [id number] MCH 30.4 pg 5 Unknown COMPLETE BLOOD COUNT 8944083 MCHC 35.1 g/dL 5 Unknown COMPLETE BLOOD COUNT 7043501 PLT 252 10e9/L 01/18/20 15 Unknown COMPLETE BLOOD COUNT 1731889 MPV 11.4 fL 5 Unknown COMPLETE BLOOD COUNT [id number] SAM % 72.9 % 5 Unknown COMPLETE BLOOD COUNT 5313554 LY % 13.6 % 5 Unknown COMPLETE BLOOD COUNT [id number] MON % 10.2 % 5 Unknown COMPLETE BLOOD COUNT 5919113 EOS % 3.1 % 5 Unknown COMPLETE BLOOD COUNT [id number] BASO % 0.2 % 5 Unknown COMPLETE BLOOD COUNT 4705831 RDW 13.6 % 5 Unknown COMPLETE BLOOD COUNT [id number] ABS SAM 7.36 10e9/L 015 Unknown COMPLETE BLOOD COUNT [id number] ABS LYMPH 1.37 10e9/L 015 Unknown COMPLETE BLOOD COUNT [id number] ABS MONO 1.03 10e9/L 015 Unknown COMPLETE BLOOD COUNT [id number] ABS EOS 0.31 10e9/L 015 Unknown COMPLETE BLOOD COUNT [id number] ABS BASO 0.02 10e9/L 015 Unknown COMPLETE BLOOD COUNT [id number] RDW-SD 42.4 fL 5 Unknown GFR CALC 1576785 GFR AA 51.0L ML/MIN 01/17/2015 Unknow n GFR CALC 2601968 GFR NON-AA 42.0L ML/MIN 01/17/2015 Unkno wn FREE T4 12937 FREE T4 1.30 NG/DL 01/17/2015 Unknown THYROID STIMULATING HORMONE 30832 TSH 4.029 uIU/ML 01/17/2015 Unknown COMPREHENSIVE METABOLIC 16725 AST 28 U/L 2014 Unknown COMPREHENSIVE METABOLIC 61240 ALT 25 IU/L 2014 Unknown COMPREHENSIVE METABOLIC 02447 BUN 21 MG/DL 2014 Unknown COMPREHENSIVE METABOLIC 72056 ALBUMIN 4.7 GM/DL 2014 Unknown COMPREHENSIVE METABOLIC 53783 CHLORIDE 102 MMOL/L 01/17 Unknown COMPREHENSIVE METABOLIC 94396 BILI TOT 0.6 MG/DL 2014 Unknown COMPREHENSIVE METABOLIC 32803 ALK PHOS 44 U/L 2014 Unknown COMPREHENSIVE METABOLIC 34733 SODIUM 137 MMOL/L 01/17 Unknown COMPREHENSIVE METABOLIC 31965 CREATININE 1.62 MG/DL 01/04 Unknown COMPREHENSIVE METABOLIC 50260 CALCIUM 9.7 MG/DL 2014 Unknown COMPREHENSIVE METABOLIC 79704 POTASSIUM 4.5 MMOL/L 01/17 Unknown COMPREHENSIVE METABOLIC 51881 PROT TOT 6.5 GM/DL 2014 Unknown COMPREHENSIVE METABOLIC 92500 Glucose 136 MG/DL 2014 Unknown COMPREHENSIVE METABOLIC 74830 BICARB 24 MMOL/L 2014 Unknown COMPREHENSIVE METABOLIC 81912 ANION GAP 11 MEQ/L 2014 Unknown VITAMIN B 12 42956 VIT B 12 482 PG/ML 01/17/2015 Unknow n URIC ACID 70821 URIC ACID 8.5 MG/DL 08/09/2014 Unknown COMPREHENSIVE METABOLIC 03586 AST 27 U/L 2014 Unknown COMPREHENSIVE METABOLIC 92006 ALT 26 IU/L 2014 Unknown COMPREHENSIVE METABOLIC 95083 BUN 17 MG/DL 2014 Unknown COMPREHENSIVE METABOLIC 40302 ALBUMIN 5.0 GM/DL 2014 Unknown COMPREHENSIVE METABOLIC 58415 CHLORIDE 101 MMOL/L 08/09 Unknown COMPREHENSIVE METABOLIC 07595 BILI TOT 0.7 MG/DL 2014 Unknown COMPREHENSIVE METABOLIC 67682 ALK PHOS 53 U/L 2014 Unknown COMPREHENSIVE METABOLIC 85449 SODIUM 136 MMOL/L 08/09 Unknown COMPREHENSIVE METABOLIC 08575 CREATININE 1.14 MG/DL 09/2014 Unknown COMPREHENSIVE METABOLIC 18893 CALCIUM 9.8 MG/DL 2014 Unknown COMPREHENSIVE METABOLIC 63369 POTASSIUM 4.1 MMOL/L 08/09 Unknown COMPREHENSIVE METABOLIC 29156 PROT TOT 7.5 GM/DL 2014 Unknown COMPREHENSIVE METABOLIC 89787 Glucose 110 MG/DL 2014 Unknown COMPREHENSIVE METABOLIC 85746 BICARB 30 MMOL/L 2014 Unknown COMPREHENSIVE METABOLIC 60901 ANION GAP 5 MEQ/L 2014 Unknown GFR CALC 2691388 GFR AA >60 ML/MIN 08/09/2014 Unknown GFR CALC 5982206 GFR NON-AA >60 ML/MIN 08/09/2014 Unknown FREE T4 57940 FREE T4 1.14 NG/DL 08/09/2014 Unknown GLYCOSYLATED HEMOGLOBIN TEST 36607 A1C HPLC 17429-5 6.8 % 0 08/09/2014 Unknown COMPLETE BLOOD COUNT [id number] WBC 5.9 10e9/L 08/09/19 15 Unknown COMPLETE BLOOD COUNT [id number] RBC 5.04 10e12/L 2014 Unknown COMPLETE BLOOD COUNT [id number] HGB 15.2 g/dL 5 Unknown COMPLETE BLOOD COUNT [id number] HCT DET 44.3 % 5 Unknown COMPLETE BLOOD COUNT [id number] MCV 87.9 fL 5 Unknown COMPLETE BLOOD COUNT [id number] MCH 30.2 pg 5 Unknown COMPLETE BLOOD COUNT [id number] MCHC 34.3 g/dL 5 Unknown COMPLETE BLOOD COUNT [id number] PLT 262 10e9/L 08/09/19 15 Unknown COMPLETE BLOOD COUNT [id number] MPV 10.9 fL 5 Unknown COMPLETE BLOOD COUNT [id number] SAM % 58.7 % 5 Unknown COMPLETE BLOOD COUNT [id number] LY % 21.5 % 5 Unknown COMPLETE BLOOD COUNT [id number] MON % 14.0 % 5 Unknown COMPLETE BLOOD COUNT [id number] EOS % 5.3 % 5 Unknown COMPLETE BLOOD COUNT [id number] BASO % 0.5 % 5 Unknown COMPLETE BLOOD COUNT [id number] RDW 13.1 % 5 Unknown COMPLETE BLOOD COUNT [id number] ABS SAM 3.46 10e9/L 015 Unknown COMPLETE BLOOD COUNT [id number] ABS LYMPH 1.27 10e9/L 015 Unknown COMPLETE BLOOD COUNT [id number] ABS MONO 0.83 10e9/L 015 Unknown COMPLETE BLOOD COUNT [id number] ABS EOS 0.31 10e9/L 015 Unknown COMPLETE BLOOD COUNT [id number] ABS BASO 0.03 10e9/L 015 Unknown COMPLETE BLOOD COUNT [id number] RDW-SD 41.2 fL 5 Unknown THYROID STIMULATING HORMONE 18315 TSH 5.395 uIU/ML 08/09/2014 Unknown LIPID GROUP 86919 HDL TEST 52 MG/DL 08/09/2014 Unknown LIPID GROUP 29226 TRIG 113 MG/DL 08/09/2014 Unknown LIPID GROUP 23292 TEST LDL 158 MG/DL 08/09/2014 Unknown LIPID GROUP 33692 CHOL 233 MG/DL 08/09/2014 Unknown LIPID GROUP 03251 RCHOL/HDL 4.48 RATIO 08/09/2014 Unknow n LIPID GROUP 43021 NON-HDL CH 181 MG/DL 08/09/2014 Unknow n COMPLETE BLOOD COUNT [id number] WBC 6.8 10e9/L 09/09/19 14 Unknown COMPLETE BLOOD COUNT [id number] RBC 5.18 10e12/L 2013 Unknown COMPLETE BLOOD COUNT [id number] HGB 15.2 g/dL 4 Unknown COMPLETE BLOOD COUNT [id number] HCT DET 44.7 % 4 Unknown COMPLETE BLOOD COUNT [id number] MCV 86.3 fL 4 Unknown COMPLETE BLOOD COUNT [id number] MCH 29.3 pg 4 Unknown COMPLETE BLOOD COUNT [id number] MCHC 34.0 g/dL 4 Unknown COMPLETE BLOOD COUNT [id number] PLT 236 10e9/L 09/09/19 14 Unknown COMPLETE BLOOD COUNT [id number] MPV 11.0 fL 4 Unknown COMPLETE BLOOD COUNT [id number] SAM % 58.2 % 4 Unknown COMPLETE BLOOD COUNT [id number] LY % 21.9 % 4 Unknown COMPLETE BLOOD COUNT [id number] MON % 12.5 % 4 Unknown COMPLETE BLOOD COUNT [id number] EOS % 7.3 % 4 Unknown COMPLETE BLOOD COUNT [id number] BASO % 0.1 % 4 Unknown COMPLETE BLOOD COUNT [id number] RDW 13.6 % 4 Unknown COMPLETE BLOOD COUNT [id number] ABS SAM 3.96 10e9/L 014 Unknown COMPLETE BLOOD COUNT [id number] ABS LYMPH 1.49 10e9/L 014 Unknown COMPLETE BLOOD COUNT [id number] ABS MONO 0.85 10e9/L 014 Unknown COMPLETE BLOOD COUNT [id number] ABS EOS 0.50 10e9/L 014 Unknown COMPLETE BLOOD COUNT [id number] ABS BASO 0.01 10e9/L 014 Unknown COMPLETE BLOOD COUNT [id number] RDW-SD 42.3 fL 4 Unknown COMPREHENSIVE METABOLIC 16441 AST 27 U/L 2013 Unknown COMPREHENSIVE METABOLIC 78164 ALT 30 IU/L 2013 Unknown COMPREHENSIVE METABOLIC 60408 BUN 16 MG/DL 2013 Unknown COMPREHENSIVE METABOLIC 41130 ALBUMIN 4.9 GM/DL 2013 Unknown COMPREHENSIVE METABOLIC 98462 CHLORIDE 99 MMOL/L 2013 Unknown COMPREHENSIVE METABOLIC 87885 BILI TOT 0.7 MG/DL 2013 Unknown COMPREHENSIVE METABOLIC 93715 ALK PHOS 53 U/L 2013 Unknown COMPREHENSIVE METABOLIC 96093 SODIUM 137 MMOL/L 09/08 Unknown COMPREHENSIVE METABOLIC 83689 CREATININE 1.01 MG/DL 11/2013 Unknown COMPREHENSIVE METABOLIC 95943 CALCIUM 10.0 MG/DL 09/08 Unknown COMPREHENSIVE METABOLIC 50864 POTASSIUM 4.4 MMOL/L 09/08 Unknown COMPREHENSIVE METABOLIC 29225 PROT TOT 7.1 GM/DL 2013 Unknown COMPREHENSIVE METABOLIC 55061 Glucose 148 MG/DL 2013 Unknown COMPREHENSIVE METABOLIC 71576 BICARB 30 MMOL/L 2013 Unknown COMPREHENSIVE METABOLIC 45723 ANION GAP 8 MEQ/L 2013 Unknown GFR CALC 0071729 GFR AA >60 ML/MIN 09/08/2013 Unknown GFR CALC 6957345 GFR NON-AA >60 ML/MIN 09/08/2013 Unknown FREE T4 44596 FREE T4 1.08 NG/DL 09/08/2013 Unknown GLYCOSYLATED HEMOGLOBIN TEST 97088 A1C HPLC 15119-5 7.3 % 0 09/08/2013 Unknown THYROID STIMULATING HORMONE 49674 TSH 5.454 uIU/ML 09/08/2013 Unknown LIPID GROUP 99693 HDL TEST 59 MG/DL 09/08/2013 Unknown LIPID GROUP 57163 TRIG 92 MG/DL 09/08/2013 Unknown LIPID GROUP 59662 TEST LDL 83 MG/DL 09/08/2013 Unknown LIPID GROUP 74636 CHOL 160 MG/DL 09/08/2013 Unknown LIPID GROUP 42245 RCHOL/HDL 2.71 RATIO 09/08/2013 Unknow n VITAMIN B 12 FOLIC ACID 75491|30134 VIT B 12 467 PG/ML 12/2012 Unknown VITAMIN B 12 FOLIC ACID 90617|96653 FOLIC ACID 12.2 NG/ML Unknown VITAMIN B 12 FOLIC ACID 89277|48041 VIT B 12 467 PG/ML 12/2012 Unknown THYROID STIMULATING HORMONE 33630 TSH 4.557 uIU/ML 03/12/2013 Unknown HEMOGLOBIN A1C (GLYCOSYLATED) 0507361 A1C HPLC 14523-4 7.6 % 03/12/2013 Unknown VITAMIN D TOTAL (25 HYDROXY) 49359 VIT D TOTL 17 NG/ML 03/12/2013 Unknown FREE T4 48052 FREE T4 1.07 NG/DL 03/12/2013 Unknown URIC ACID 50213 URIC ACID 5.2 MG/DL 03/12/2013 Unknown Procedures Procedure Codes Date THER/PROPH/DIAG INJ SC/IM CPT-4: 14651 05/13/2019 TRIAMCINOLONE ACET INJ NOS CPT-4: J3301 05/13/2019 DEXAMETHASONE SODIUM PHOS CPT-4: J1100 05/13/2019 THER/PROPH/DIAG INJ SC/IM CPT-4: 06521 02/22/2019 TRIAMCINOLONE ACET INJ NOS CPT-4: J3301 02/22/2019 FLU VACC PRSV FREE INC ANTIG 65 AND OLDER CPT-4: 75269 04/21/2018 ADMIN INFLUENZA VIRUS VAC CPT-4: G0008 04/21/2018 PRESCRIP TRANSMIT VIA ERX SY CPT-4: G8553 04/21/2018 DESTRUCT PREMALG LESION (Cryosurgery) CPT-4: 64189 FLU VACC PRSV FREE INC ANTIG 65 AND OLDER CPT-4: 49318 04/22/2017 ADMIN INFLUENZA VIRUS VAC CPT-4: G0008 04/22/2017 PRESCRIP TRANSMIT VIA ERX SY CPT-4: G8553 10/10/2016 PRESCRIP TRANSMIT VIA ERX SY CPT-4: G8553 08/29/2015 ROUTINE VENIPUNCTURE CPT-4: 86615 07/26/2015 ASSAY OF FREE THYROXINE CPT-4: 67933 07/26/2015 ASSAY THYROID STIM HORMONE CPT-4: 45383 07/26/2015 COMPREHEN METABOLIC PANEL CPT-4: 77004 07/26/2015 COMPLETE CBC W/AUTO DIFF WBC CPT-4: 32160 07/26/2015 LIPID PANEL CPT-4: 31618 07/26/2015 ASSAY OF PSA TOTAL CPT-4: 14248 07/26/2015 A1C HPLC CPT-4: 65847 07/26/2015 ROUTINE VENIPUNCTURE CPT-4: 36876 01/17/2015 ASSAY OF FREE THYROXINE CPT-4: 63192 01/17/2015 ASSAY THYROID STIM HORMONE CPT-4: 56344 01/17/2015 COMPREHEN METABOLIC PANEL CPT-4: 75602 01/17/2015 COMPLETE CBC W/AUTO DIFF WBC CPT-4: 18118 01/17/2015 A1C HPLC CPT-4: 31011 01/17/2015 VITAMIN B-12 CPT-4: 81054 01/17/2015 PPPS, subseq visit CPT-4: G0439 08/04/2014 PRESCRIP TRANSMIT VIA ERX SY CPT-4: G8553 02/18/2014 FLUZONE, 5ML (Medicare) CPT-4: Q2038 07/22/2013 ADMIN INFLUENZA VIRUS VAC CPT-4: G0008 07/22/2013 PRESCRIP TRANSMIT VIA ERX SY CPT-4: G8553 04/28/2013 ROUTINE VENIPUNCTURE CPT-4: 96387 03/12/2013 VITAMIN D TOTAL (25 HYDROXY) CPT-4: 72596 03/12/2013 VITAMIN B 12 FOLIC ACID CPT-4: 31511|80618 03/12/2013 A1C GLYCOSYLATED HEMOGLOBIN TEST CPT-4: 08431 013 ASSAY OF BLOOD/URIC ACID CPT-4: 67386 03/12/2013 ASSAY OF FREE THYROXINE CPT-4: 02017 03/12/2013 ASSAY THYROID STIM HORMONE CPT-4: 21083 03/12/2013 CUR TOBACCO NON-USER CPT-4: G8457 03/11/2013 PRESCRIP TRANSMIT VIA ERX SY CPT-4: G8553 03/11/2013 Vital Signs Date Vital 10/27/2019 Blood Pressure 1: 136/82 Code: 8480-6 [...] 1: 156/70 Code: 8480-6 BMI: 35.0 Code: 50718-2 Heart Rate 1: 68 bpm Height: 5'10" Respiratory Rate: 20 bpm SpO2: 95% Tempera ture: 36.5 (C) / 97.7 (F) Weight: 244 lbs 04/21/2018 Blood Pressure 1: 124/80 Code: 8480-6 BMI: 34.4 Code: 73538-2 Heart Rate 1: 80 bpm Height: 5'10" Respiratory Rate: 20 bpm SpO2: 96% Tempera ture: 37.0 (C) / 98.6 (F) Weight: 240 lbs 01/06/2018 Blood Pressure 1: 138/82 Code: 8480-6 BMI: 33.9 Code: 42686-3 Heart Rate 1: 96 bpm Height: 5'10" Respiratory Rate: 24 bpm SpO2: 98% Tempera ture: 35.9 (C) / 96.6 (F) Weight: 236 lbs 10/22/2017 Blood Pressure 1: 144/70 Code: 8480-6 BMI: 34.7 Code: 99756-1 Heart Rate 1: 72 bpm Height: 5'10" Respiratory Rate: 20 bpm SpO2: 96% Tempera ture: 36.9 (C) / 98.4 (F) Weight: 242 lbs 04/22/2017 Blood Pressure 1: 146/82 Code: 8480-6 BMI: 32.9 Code: 56994-6 Heart Rate 1: 104 bpm Height: 5'10" Respiratory Rate: 20 bpm SpO2: 95% Tempera ture: 36.9 (C) / 98.5 (F) Weight: 229 lbs 10/10/2016 Blood Pressure 1: 124/64 Code: 8480-6 BMI: 32.9 Code: 60273-9 Heart Rate 1: 64 bpm Height: 5'10" [...] 1: 146/90 Code: 8480-6 BMI: 34.1 Code: 30931-2 Heart Rate 1: 80 bpm Height: 5'10" Respiratory Rate: 20 bpm Temperature: 36 .8 (C) / 98.2 (F) Weight: 238 lbs 01/17/2015 Blood Pressure 1: 116/60 Code: 8480-6 BMI: 32.7 Code: 07577-9 Heart Rate 1: 84 bpm Height: 5'10" Respiratory Rate: 20 bpm Temperature: 36 .7 (C) / 98.0 (F) Weight: 228 lbs 09/29/2014 Blood Pressure 1: 136/78 Code: 8480-6 BMI: 33.9 Code: 52363-1 Heart Rate 1: 80 bpm Height: 5'10" Respiratory Rate: 20 bpm Temperature: 36 .6 (C) / 97.9 (F) Weight: 236 lbs 08/04/2014 Blood Pressure 1: 132/70 Code: 8480-6 BMI: 32.9 Code: 18825-3 Heart Rate 1: 72 bpm Height: 5'10" Respiratory Rate: 20 bpm Temperature: 36 .7 (C) / 98.0 (F) Weight: 229 lbs 02/18/2014 Blood Pressure 1: 124/82 Code: 8480-6 Heart Rate 1: 82 bpm Respiratory Rate: 18 bpm Temperature: 36.4 (C) / 97.5 (F) Weight: 232 lbs 07/29/2013 Blood Pressure 1: 146/80 Code: 8480-6 BMI: 34.1 Code: 01959-4 Heart Rate 1: 64 bpm Height: 5'10" Respiratory Rate: 20 bpm Temperature: 36 .9 (C) / 98.5 (F) Weight: 238 lbs 05/26/2013 Blood Pressure 1: 142/90 Code: 8480-6 BMI: 34.0 Code: 61941-7 Heart Rate 1: 84 bpm Height: 5'10" Respiratory Rate: 20 bpm Temperature: 36 .7 (C) / 98.0 (F) Weight: 237 lbs 04/28/2013 Blood Pressure 1: 118/78 Code: 8480-6 BMI: 32.9 Code: 23336-3 Heart Rate 1: 74 bpm Height: 5'10" Respiratory Rate: 20 bpm Temperature: 36 .1 (C) / 97.0 (F) Weight: 229 lbs 03/11/2013 Blood Pressure 1: 146/80 Code: 8480-6 BMI: 31.5 Code: 84965-5 Heart Rate 1: 80 bpm Height: 6' Respiratory Rate: 20 bpm Temperature: 36 .8 (C) / 98.2 (F) Weight: 232 lbs Functional Status No Functional Status data Reason For Visit Reason For Visit Effective Dates Notes follow up 10/27/2019 diabetes mellitus 10/20/2019 follow [...] care Encounters Encounter Performer Location Codes Date ([id number]) OFFICE/OUTPATIENT VISIT EST Diagnosis: DM w/o complication type II, uncontrolled[ICD10: E11.65] Diagnosis: Other dyspnea and respiratory abnormality[ICD10: R06.09] Xiomara BETTENCOURT [facility] CPT-4: 47240 10/27/2019 ([id number]) OFFICE/OUTPATIENT VISIT EST Diagnosis: Chronic obstructive pulmonary disease, unspecified[ICD10: J44.9] Diagnosis: DM w/o complication type II, uncontrolled[ICD10: E11.65] Diagnosis: Edema[ICD10: R60.9] Xiomara BETTENCOURT [facility] CPT-4: 27457 10/20/2019 ([id number]) OFFICE/OUTPATIENT VISIT EST Diagnosis: Other dyspnea and respiratory abnormality[ICD10: R06.09] Diagnosis: Obstructive sleep apnea[ICD10: G47.33] Diagnosis: Hypotension[ICD10: I95.9] Xiomara Bettencourt [facility] CPT -4: 56941 10/12/2019 ([id number]) OFFICE/OUTPATIENT VISIT EST Diagnosis: Upper respiratory infection[ICD10: J06.9] Pennie BETTENCOURT [facility] CPT-4: 24262 06/02/2019 ([id number]) OFFICE/OUTPATIENT VISIT EST Diagnosis: Sinusitis[ICD10: J32.9] Diagnosis: Allergic rhinitis[ICD10: J30.9] [facility]: 37228 05/13/2019 ([id number]) OFFICE/OUTPATIENT VISIT EST Diagnosis: Pneumonia[ICD10: J18.9] Pennie [facility] CPT-4: 77467 04/26/2019 ([id number]) OFFICE/OUTPATIENT VISIT EST Diagnosis: Acute sinusitis, unspecified[ICD10: J01.90] Pennie BETTENCOURT DO [facility] CPT-4: 93034 02/22/2019 ([id number]) OFFICE/OUTPATIENT VISIT EST Diagnosis: Cervicalgia[ICD10: M54.2] [facility] 38601 11/25/2018 ([id number]) OFFICE/OUTPATIENT VISIT EST Diagnosis: Acute sinusitis, unspecified[ICD10: J01.90] Diagnosis: Myalgia, unspecified site[ICD10: M79.10] Diagnosis: Cervicalgia[ICD10: M54.2] Xiomara BOJORQUEZ [facility] CPT-4: 64309 11/19/2018 ([id number]) OFFICE/OUTPATIENT VISIT EST Diagnosis: Low back pain[ICD10: M54.5] Diagnosis: Essential (primary) hypertension[ICD10: I10] Diagnosis: 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, 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] Diagnosis: Paroxysmal atrial fibrillation[ICD10: I48.0] [facility] 45261 07/22/2018 ([id number]) OFFICE/OUTPATIENT VISIT EST Diagnosis: Type 2 diabetes mellitus with diabetic neuropathy, unspecified[ICD10: E11.40] Diagnosis: Hyperlipidemia, unspecified[ICD10: E78.5] Diagnosis: Essential (primary) hypertension[ICD10: I10] Diagnosis: Chronic kidney disease, stage 1[ICD10: N18.1] Diagnosis: Benign prostatic hyperplasia with lower urinary tract symptoms[ICD10: N40.1] Diagnosis: FLU VACCINE[ICD10: Z23] [facility]: 85426 04/21/2018 OFFICE/OUTPATIENT VISIT EST Diagnosis: Type 2 diabetes mellitus with hyperglycemia[ICD10: E11.65] Diagnosis: Essential (primary) hypertension[ICD10: I10] Diagnosis: Mixed hyperlipidemia[ICD10: E78.2] Diagnosis: Other fatigue[ICD10: R53.83] [facility]: 23360 01/06/2018 ([id number]) OFFICE/OUTPATIENT VISIT EST Diagnosis: Type 2 diabetes mellitus with diabetic neuropathy, unspecified[ICD10: E11.40] Diagnosis: Essential (primary) hypertension[ICD10: I10] Diagnosis: Pain in right thigh[ICD10: M79.651] Diagnosis: Pain in left leg[ICD10: M79.605] Diagnosis: Localized swelling, mass and lump, left lower limb[ICD10: R22.42] Diagnosis: OSTEOARTHRISIS MULTI SITES[ICD10: M19.90] Diagnosis: FLU VACCINE[ICD10: Z23] Xiomara Gan [facility] CPT-4: 24050 04/22/2017 ([id number]) OFFICE/OUTPATIENT VISIT EST Diagnosis: Essential (primary) hypertension[ICD10: I10] Diagnosis: Type 2 diabetes mellitus with hyperglycemia[ICD10: E11.65] Diagnosis: Angina pectoris, unspecified[ICD10: I20.9] Xiomara Rut HANLINE Elvia BETTENCOURT [place] [facility] CPT-4: 05684 10/10/2016 ([id number]) OFFICE/OUTPATIENT VISIT EST Diagnosis: Cough[ICD10: R05] Diagnosis: Wheezing[ICD10: R06.2] Diagnosis: Chronic obstructive pulmonary disease, unspecified[ICD10: J44.9] Shannan Grimes XIOMARA DelphineEdvin RUT [place] [facility] CPT-4: 70027 08/31/2015 OFFICE/OUTPATIENT VISIT EST Diagnosis: Acute bronchitis, unspecified[ICD10: J20.9] Diagnosis: Wheezing[ICD10: R06.2] Kelsie RobersonChloekarena HANLINE Elvia STOKES [place] [facility] CPT-4: 95190 08/29/2015 ([id number]) OFFICE/OUTPATIENT VISIT EST Diagnosis: Type 2 diabetes mellitus with diabetic neuropathy, unspecified[ICD10: E11.40] Diagnosis: Hyperlipidemia, unspecified[ICD10: E78.5] Diagnosis: Essential (primary) hypertension[ICD10: I10] Diagnosis: Encounter for general adult medical examination without abnormal findings[ICD10: Z00.00] Xiomara Mcbridekendrick HANXIOMARA DelphineEdvin REED [place] [facility] CPT-4: 37487 07/26/2015 OFFICE/OUTPATIENT VISIT EST Diagnosis: Type 2 diabetes mellitus with hyperglycemia[ICD10: E11.65] Diagnosis: Unspecified osteoarthritis, unspecified site[ICD10: M19.90] Diagnosis: Other instability, right knee[ICD10: M25.361] Kelsie DaChloekarena HANLINE Elvia BETTENCOURT [place] [facility] CPT-4: 39852 07/24/2015 ([id number]) OFFICE/OUTPATIENT VISIT EST Diagnosis: Pain in leg, unspecified[ICD10: M79.606] Diagnosis: Type 2 diabetes mellitus with diabetic neuropathy, unspecified[ICD10: E11.40] Xiomara RENAEQUELINE Elvia MCBRIDE [place] [facility] CPT-4: 65150 05/01/2015 ([id number]) OFFICE/OUTPATIENT VISIT EST Diagnosis: MALAISE AND FATIGUE[ICD9: 780.79] Diagnosis: 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, 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] Diagnosis: CAD[ICD9: 414.00] Diagnosis: ANEMIA NOS[ICD9: 285.9] [facility] CPT-4: 36443 01/17/2015 ([id number]) OFFICE/OUTPATIENT VISIT EST Diagnosis: Skin lesion[ICD9: 709.9] Xiomara HAND [facility] CPT-4: 86303 09/29/2014 OFFICE/OUTPATIENT VISIT EST Diagnosis: GASTROENTERITIS[ICD9: 558.9] Diagnosis: GERD[ICD9: 530.81] Kelsie Grubbs XIOMARA AkersEdvin [facility]: 67119 02/18/2014 ([id number]) OFFICE/OUTPATIENT VISIT EST Diagnosis: 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I, UNCONTROLLED[ICD9: 250.02] Xiomara HANLINE DelphineEdvin [facility] CPT-4: 92885 07/29/2013 ([id number]) OFFICE/OUTPATIENT VISIT EST Diagnosis: FLU VACCINE[ICD9: V04.81] Xiomara MAGALLON [facility] CPT-4: 10137 07/22/2013 ([id number]) OFFICE/OUTPATIENT VISIT EST Diagnosis: 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I, UNCONTROLLED[ICD9: 250.02] Diagnosis: HYPERTENSION[ICD9: 401.9] Xiomara BROWNR [facility] CPT-4: 85248 05/26/2013 ([id number]) OFFICE/OUTPATIENT VISIT EST Diagnosis: MONONEURITIS[ICD9: 355.9] Diagnosis: RESTLESS LEGS SYNDROME[ICD9: 333.94] Diagnosis: HYPERTENSION[ICD9: 401.9] Diagnosis: CAD[ICD9: 414.00] Diagnosis: Weakness[ICD9: 780.79] Xiomara Bojorquezvondakendrick HANXIOMARA DelphineEdvin DIVYA [facility] CPT-4: 87391 04/28/2013 ([id number]) OFFICE/OUTPATIENT VISIT EST Diagnosis: 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[ICD9: 250.01] Diagnosis: MONONEURITIS[ICD9: 355.9] Diagnosis: HYPERLIPIDEMIA NEC/NOS[ICD9: 272.4] Diagnosis: CAD[ICD9: 414.00] Xiomara LARA Elvia BETTENCOURT [employer] CPT-4: 77889 03/12/2013 OFFICE/OUTPATIENT VISIT NEW Diagnosis: CAD[ICD9: 414.00] Diagnosis: HYPERLIPIDEMIA NEC/NOS[ICD9: 272.4] Diagnosis: HYPERTENSION[ICD9: 401.9] Diagnosis: Neuropathy[ICD9: 355.9] Diagnosis: RESTLESS LEGS SYNDROME[ICD9: 333.94] Xiomara JACKMAN Elvia [employer]SHERITA [employer] CPT-4: 69121 03/11/2013 Plan of Care Planned Activity Notes Codes Status Date Visit Diagnosis Plan: DM w/o complication type II, unc ontrolled Discussion: Keep low dose glimepride at 2mg daily Accuchecks at least BID ICD-9 : 250.02 ICD-10 : E11.65 10/27/2019 Visit Diagnosis Plan: Other dyspnea and respiratory ab normality Discussion: DC lasix and potassium Will start pulmonary rehab once COVID-19 is resolved ICD-9 : 786.09 ICD-10 : R06.09 10/27/2019 Appointment: Xiomara Bettencourt WPtel[facility] [phone] [facility] FOLLOW UP 10/27/2019 Patient Education: gabapentin- [employer] Coupon [phone] https://www.[employer]/resources/getResource/61/[email or web address] Completed 10/27/2019 Visit Diagnosis Plan: DM w/o [...] : J44.9 10/20/2019 Appointment: Xiomara Bettencourt WPtel: [address] [place], [place] [phone] [place] FOLLOW UP 10/20/2019 Patient Education: furosemide- [employer] Coupon [phone] https://www.[employer]/samplemd/resources/getResource/61/[email or web address]-c8 Completed 10/20/2019 Visit Diagnosis Plan: Hypotension Discussion: [...] : G47.33 10/12/2019 Appointment: Xiomara Bettencourt WPtel: [address] [place], [place] [phone] [place] TELEMEDICINE 10/12/2019 Appointment: Xiomara Bettencourt WPtel: [address] [place], [place] [phone] [place] RESCHEDULED 09/23/2019 Care Plan: COMPREHEN METABOLIC PANEL SERGEI NC : 66596-8 Pending 09/20/2019 Care Plan: LIPID PANEL LOINC : 09191-5 Pending 09/20/2019 Care Plan: A1C HPLC LOINC : 79198-9 Pending 09/20/2019 Care Plan: COMPLETE CBC W/AUTO DIFF WBC LOINC : 36880-5 Pending 09/20/2019 Visit Diagnosis Plan: Upper respiratory infection Disc ussion: discussed that most likely viral. push fluids and rest through the week. patient has left over levaquin at home (5 days worth). instructed patient to start taking if he gets worse later this week and to call us next week if no improvement. ICD-9 : 465.9 ICD-10 : J06.9 06/02/2019 Appointment: Pennie Pizarro [address] [place] [address] ACUTE ILLNESS 06/02/2019 Visit Diagnosis Plan: Allergic [...] ICD-10 : J30.9 05/13/2019 Appointment: Pennie Pizarro [address] [place], [place] [phone] ACUTE ILLNESS 05/13/2019 Appointment: Xiomara Bettencourt WPtel: [phone] [facility] [place] CANCELED 04/27/2019 Visit Diagnosis Plan: Pneumonia Discussion: will obtai n records from urgent care. instructed to finish out doxy. no rhonchi or crackles auscultated. symbicort sample given to patient with instructions to use bid. call office later this week with new or worsening symptoms. ICD-9 : 486 ICD-10 : J18.9 04/26/2019 Appointment: Pennie Pizarro [address] [place], [place] [phone] [place] FOLLOW UP 04/26/2019 Visit Diagnosis Plan: Acute [...] ICD-10 : J01.90 02/22/2019 Appointment: Pennie Pizarro [address] [place], [place] [address] 02/22/2019 Patient Education: prednisone- [employer] Coupon [phone] https://www.[employer]/samplemd/resources/getResource/61/[email or web address] Completed 02/22/2019 Visit Diagnosis Plan: Cervicalgia Discussion: Check Ce rvical Spine X-ray Will likely need PT ICD-9 : 723.1 ICD-10 : M54.2 11/25/2018 Appointment: Xiomara Bettencourt WPtel: [phone] ACUTE ILLNESS 11/25/2018 Visit Plan: Saline [...] M79.10 11/19/2018 Appointment: Xiomara Bettencourt WPtel: [phone] ACUTE ILLNESS 11/19/2018 Patient Education: baclofen- [employer] Coupon [phone] https://www.[employer]/samplemd/resources/getResource/61/[email or web address] Completed 11/19/2018 Visit Diagnosis Plan: Essential (primary) [...] E10.9 07/22/2018 Appointment: Xiomara Bettencourt WPtel: [phone] [facility] [place] FOLLOW UP 07/22/2018 Visit Diagnosis Plan: Benign prostatic h yperplasia with lower urinary tract symptoms Discussion: Trial of flomax Call in 1 mo [facility] on how doing Follow Up: 4 [...] N18.1 04/21/2018 Appointment: Xiomara Bettencourt WPtel[facility] [phone] [facility] [place] FOLLOW UP 04/21/2018 Patient Education: Patient [...] ICD-10 : E11.65 01/06/2018 Appointment: Pennie Pizarro [address] [place] [address] MEDICATION REVIEW 01/06/2018 Patient Education: Patient Medication Summary Completed 01/06/2018 Appointment: Xiomara Bettencourt WPtel: [address] [place] [address] [place] NO SHOW 01/05/2018 Appointment: Xiomara Bettencourt WPtel: [address] [place] [address] [place] CANCELED 12/31/2017 Visit Diagnosis Plan: Actinic keratosis Discussion: Cr yotherapy as above but will see derm if lesions do not resolve ICD-9 : 702.0 ICD-10 : L57.0 10/22/2017 Appointment: Xiomara Bettencourt WPtel: [address] [place] [address] ACUTE ILLNESS 10/22/2017 Patient Education: Patient Medication [...] M19.90 04/22/2017 Appointment: Xiomara Bettencourt WPtel: [phone] [facility] FOLLOW UP 04/22/2017 Patient Education: Patient Medication Summary Completed 04/22/2017 Patient Education: Patient Medication Summary Completed 04/16/2017 Care Plan: COMPREHEN METABOLIC PANEL SERGEI NC : 98147-4 Pending 04/16/2017 Care Plan: LIPID PANEL LOINC : 37813-8 Pending 04/16/2017 Care Plan: CBC Pending 04/16/2017 Care Plan: A1C HPLC LOINC : 87169-0 Pending 04/16/2017 Referral: Inocencio Goodson WPtel: [facility] [place] Referral Appointment Confirmed 10/14/2016 Visit Diagnosis Plan: Angina pectoris, unspecified Dis cussion: Continue imdur and see cardiology To ER if chest pain returns ICD-9 : 413.9 ICD-10 : I20.9 10/10/2016 Visit Diagnosis Plan: Type 2 diabetes mellitus with hy perglycemia Discussion: Continue toujeo Accuchecks BID Follow Up: 4 months ICD-9 : 250.02 ICD-10 : E11.65 10/10/2016 Appointment: Xiomara Bettencourt WPtel: [address] [place], [place] [phone] FOLLOW UP 10/10/2016 Patient Education: Patient Medication Summary Completed 10/10/2016 Patient Education: Patient Medication Summary Completed 09/16/2016 Care Plan: COMPREHEN METABOLIC PANEL SERGEI NC : 60333-6 Pending 09/16/2016 Care Plan: ASSAY THYROID STIM HORMONE Pen ding 09/16/2016 Care Plan: ASSAY OF FREE THYROXINE Pendin g 09/16/2016 Care Plan: LIPID PANEL LOINC : 74241-2 Pending 09/16/2016 Care Plan: CBC Pending 09/16/2016 Care Plan: A1C HPLC LOINC : 52669-1 Pending 09/16/2016 Visit Plan: CXR now to further evaluate symptoms Suspect viral since he has been on 2 rounds of antibiotics If chronic lung disease evident, will consider keeping on symbicort watermaster Sample inhaler given today with instructions on use Continue oral prednisone, would like to avoid injection if possible considering his DM status and he is stable right now Continue albuterol PRN Will call with CXR results 08/31/2015 Appointment: Shannan Grimes [address] [place] [address] 08/31 confirmed- SP ACUTE ILLNESS 08/31/2015 Patient Education: Patient Medication Summary Completed 08/31/2015 Visit Plan: Albuterol INH via SVN every 4 hours Prednisone 20 mg PO BID Notify for worsening symptoms 08/29/2015 Appointment: Kelsie Grubbs WPtel: [address] [place], [place] [phone] ACUTE ILLNESS 08/29/2015 Patient Education: Patient Medication Summary Completed 08/29/2015 Appointment: Xiomara Bettencourt WPtel: [address] [place], [place] [phone] US LAB 07/26/2015 Patient Education: Patient Medication Summary Completed 07/26/2015 Visit Plan: Return in am for fasting lab s - CBC, CMP, TSH, Free T4, HgbA1C Change Levemir to Toujeo - Continue 35 Units q am - sample given Start physical Therapy for increased quadriceps strengthening and decreased pain in knees, bilaterally. 07/24/2015 Appointment: Kelsie Grubbs WPtel: [phone] [id number] 07/21 appt confirmed cn FOLLOW UP 07/24/19 Appointment: Kelsie Grubbs WPtel: [address] [place], [place] [phone] US FOLLOW UP 07/24/2015 Patient Education: Patient [...] with insulin 05/01/2015 Appointment: Xiomara Bettencourt WPtel: [address] [place], [place] [phone] 04/28 confirmed~sl ACUTE ILLNESS 05/01/2015 Patient Education: Patient Medication Summary Completed 05/01/2015 Patient Education: Patient Medication Summary Completed 01/19/2015 Care Plan: URINALYSIS AUTO W/[place] : [id number] Pending 01/19/2015 Visit Plan: I have went through his medi cations in past and stopped meds but he adjusts his meds on his own and has restarted some Stop Amaryl Once again discussed not using indomethacin routinely due to taking plavix and aspirin daily and custodial use is dangerous Check CBC, CMP, TSH, free T4, B12 and HbA1C Patient has seen Cardiology recently but no cardiac cath done--had chemical stress test 01/17/2015 Appointment: Xiomara Bettencourt WPtel: [facility] 01/16 vm cn ACUTE ILLNESS 01/17/2015 Patient Education: Patient Medication Summary Completed 01/17/2015 Visit Plan: See Dr. Garvin for removal 09/29/2014 Appointment: Xiomara Bettencourt WPtel: [address] [place] [address] ACUTE ILLNESS 09/29/2014 Referral: Colt Garvin WPtel: [address] Referral Initiated 09/29/2014 Patient Education: Patient Medication Summary Completed 09/29/2014 Visit Plan: Check CBC, CMP, TSH, free T4 , HbA1C, Lipids Accuchecks daily alternating times Patient has been adjusting own meds and has not taken any cholesterol meds for sometime Will check into surgery on right knee at [facility] Check carotid dopplers 08/04/2014 Appointment: Xiomara Bettencourt WPtel: [address] [place] [address] Annual Well Visit 08/04/2014 Patient Education: Patient Medication Summary Completed 08/04/2014 Appointment: Kelsie Grubbs WPtel: [address] [place] [address] ACUTE ILLNESS 02/18/2014 Patient Education: Patient Medication Summary Completed 02/18/2014 Patient Education: [facility] - [employer] - 18+ - Dynamic Portal ID Completed 02/18/2014 Appointment: Xiomara Bettencourt WPtel: [address] [place] [address] LAB 09/08/2013 Visit Plan: Check fasting lab in 1mo Con tinue Lantus and accuchecks at least BID 07/29/2013 Appointment: Xiomara Bettencourt WPtel: [address] [place] [address] FOLLOW UP 07/29/2013 Patient Education: Patient Medication Summary Completed 07/29/2013 Appointment: Xiomara Bettencourt WPtel: [address] [place], [place] [phone] [place] INJECTION 07/22/2013 Patient Education: Patient Medication Summary Completed 07/22/2013 Visit Plan: Pt has been self-adjusting m eds Stop metformin and amaryl Use Levemir 25u sc BID and call in 1wk with BS readings 05/26/2013 Appointment: Xiomara Bettencourt WPtel: [address] [place], [place] [phone] FOLLOW UP 05/26/2013 Patient Education: Patient Medication Summary Completed 05/26/2013 Visit Plan: DC Metformin Increase Lantus to 30u sc daily Change lisinopril to lisinopril HCT 20/25mg q AM Continue Gabapentin at current dose 04/28/2013 Appointment: Xiomara Bettencourt WPtel: [address] [place], [place] [phone] FOLLOW UP 04/28/2013 Patient Education: Patient Medication Summary Completed 04/28/2013 Appointment: Xiomara Bettencourt WPtel: [address] [place], [place] [phone] LAB 03/12/2013 Patient Education: Patient Medication Summary Completed 03/12/2013 Visit Plan: Trial of neurontin 400mg q H S Obtain most recent lab results Change levemir to lantus per pt request Pt goes for sleep study tonite 03/11/2013 Appointment: Xiomara Bettencourt WPtel: [address] [place], [place] [phone] 02/01paperwork mailed 03/10 confirmed with spouse NEW PATIENT 11/2012 Patient Education: Patient Medication Summary Completed 03/11/2013 Instructions Comment . Saline nasal flushes prn. Tylenol/Motr in prn headache. Notify if persists/symptoms worsening. . CXR now to further evaluate symptoms Suspect viral since he has been on 2 rounds of antibiotics If chronic lung disease evident, will consider keeping on symbicort chcf Sample inhaler given today with instructions on [...] to taking plavix and aspirin daily and custodial use is dangerous Check CBC, CMP, TSH, [...] check into surgery on right knee at [facility] Check carotid dopplers . Check fasting [...]
--- OUTSIDE RECORDS SUMMARY | 2020-02-02 21:37 | XMS REPORT | CCD ---
Author Author Sheng Bettencourt D.O. 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 Name Role Phone PP Unavailable CCM Unavailable Summary Purpose Interface Exchange Insurance Providers Payer name Policy type / Coverage type Covered democrat ID Effective Begin Date Effective End Date WPS MEDICARE PART B [place] Medicare Part B [id number] 2018 Unknown [facility] Medicare Part B [id number] 2018 Un known Family history Mother Diagnosis Age At Onset Diabetes mellitus Type 2 Unknown Hypercholesterolemia Unknown Father Diagnosis Age At Onset No Family Disease Entered N/A Social History Social History Element Codes Description Effective Dates Marital status Unknown 03/11/2013 Number of children Unknown 4 03/11/2013 Employment Unknown Retired 03/11/[address]: 5106496 Former smoker 03/11/[address]: 235587 Currently drinks alc ohol Socially 03/11/2013 Has [...] Start Date Stop Date Status Fill Instructions glimepiride 2 mg tablet RxNorm: 393582 1 Tablet(s) Oral QD 10/27/19 No Stop Date Active gabapentin 400 mg capsule RxNorm: 508219 1 Capsule(s) Oral QPM 10/0604/24/2020 Active potassium chloride ER 20 mEq tablet,extended release RxNorm: 486935 1 Tablet(s) Oral QD to take with lasix 10/20/2019 10/26/2019 Inactive furosemide 40 mg tablet RxNorm: 079783 1 Tablet(s) Oral QAM for swelling 10/20/2019 10/26/2019 Inactive albuterol sulfate HFA 90 mcg/actuation aerosol inhaler RxNor m: 0067302 1-2 Puff(s) Inhalation as needed 10/12/2019 No Stop Date Active Zyrtec 10 mg tablet RxNorm: 6218135 1 Tablet(s) Oral QAM 10/12/2019 No Stop Date Active aspirin 81 mg tablet,delayed release RxNorm: 113931 1 Tablet(s) Oral QD 10/12/2019 No Stop Date Active Symbicort 160 mcg-4.5 mcg/actuation HFA aerosol inhaler RxNo rm: 8976120 2 Puff(s) Inhalation QD 10/12/2019 No Stop Date Active lisinopril 20 mg tablet RxNorm: 832993 1 Tablet(s) Oral QD 10/12/19 20 01/10/2020 Active simvastatin 20 mg tablet RxNorm: 527109 1 Tablet(s) Ora l QD Needs updated fasting labs 09/20/2019 12/19/2019 Active Needs updated fa sting labs before 90 day refill Flomax 0.4 mg capsule RxNorm: 761494 TAKE TWO CAPSULES BY MOUTH EVERY EVENING 08/03/2019 No Stop Date Active gabapentin 400 mg capsule RxNorm: 496203 TAKE ONE CAPSU LE BY MOUTH EVERY EVENING 08/02/2019 10/26/2019 Inactive simvastatin 20 mg tablet RxNorm: 100780 1 Tablet(s) Ora l QD Needs updated fasting labs 07/21/2019 08/19/2019 Inactive Needs updated fa sting labs before 90 day refill simvastatin 20 mg tablet RxNorm: 246912 1 Tablet(s) Ora l QD Needs updated fasting labs 06/23/2019 07/20/2019 Inactive Needs updated fa sting labs before 90 day refill Flomax 0.4 mg capsule RxNorm: 036963 1 Capsule(s) Oral QD 05/13/2019 10/19/2019 Inactive Flomax 0.4 mg capsule RxNorm: 638955 TAKE TWO CAPSULES BY MOUTH EVERY EVENING 03/19/2019 05/12/2019 Inactive Augmentin 500 mg-125 mg tablet RxNorm: 567613 1 Tablet(s) PO BID 03/03/2019 Inactive baclofen 10 mg tablet RxNorm: 408470 TAKE ONE TABLET BY MOUTH EVERY NIGHT AT BEDTIME FOR PAIN OR SPASMS 01/14/2019 05/12/2019 Inactive Flomax 0.4 mg capsule RxNorm: 203926 TAKE TWO CAPSULES BY MOUTH EVERY EVENING 01/12/2019 03/18/2019 Inactive gabapentin 400 mg capsule RxNorm: 094795 1 Capsule(s) PO QPM 201806/27/2019 Inactive baclofen 10 mg tablet RxNorm: 416750 1 Tablet(s) PO QHS for my n/spasm 12/15/2018 01/13/2019 Inactive simvastatin 20 mg tablet RxNorm: 795865 TAKE ONE TABLET BY MOUT H DAILY 12/11/2018 06/22/2019 Inactive OneTouch Ultra Blue Test Strip RxNorm: Use 1 rigoberto t strip three times daily to check blood sugar (Dx:E11.65) 12/07/2018 No Stop Date Active gabapentin 400 mg capsule RxNorm: 012790 TAKE ONE CAPSU LE BY MOUTH EVERY EVENING 12/04/2018 12/29/2018 Inactive baclofen 10 mg tablet RxNorm: 042931 1 Tablet(s) PO QHS for my n/spasm 11/19/2018 12/15/2018 Inactive Flomax 0.4 mg capsule RxNorm: 264466 2 Capsule(s) PO QPM 09/15/2018 0 12/13/2018 Inactive WOULD LIKE 90DS!!! gabapentin 400 mg capsule RxNorm: 241389 TAKE ONE CAPSU LE BY MOUTH EVERY EVENING 07/21/2018 10/18/2018 Inactive simvastatin 20 mg tablet RxNorm: 399570 1 Tablet(s) PO QD 06/15/2018 12/10/2018 Inactive Flomax 0.4 mg capsule RxNorm: 078762 TAKE TWO CAPSULES BY MOUTH EVERY EVENING 06/02/2018 09/15/2018 Inactive WOULD LIKE 90DS!!! Flomax 0.4 mg capsule RxNorm: 772003 2 Capsule(s) PO QPM 04/21/2018 1 07/20/2017 Inactive simvastatin 20 mg tablet RxNorm: 273464 1 Tablet(s) PO QD Take 1 tablet by mouth daily. Patient due for labwork before further refill. 04/06/20182017 Inactive simvastatin 20 mg tablet RxNorm: 765348 Tablet(s) TAKE ONE TABLET BY MOUTH DAILY 03/25/2018 06/15/2018 Inactive simvastatin 20 mg tablet RxNorm: 947461 Tablet(s) TAKE ONE TABLET BY MOUTH DAILY due for appt 12/29/2017 03/25/2018 Inactive simvastatin 20 mg tablet RxNorm: 628579 TAKE ONE TABLET BY MOUT H DAILY 09/03/2017 12/29/2017 Inactive simvastatin 20 mg tablet RxNorm: 330940 1 Tablet(s) PO QD 10/22/2016 11/18/2018 Inactive isosorbide mononitrate ER 60 mg tablet,extended release 24 h r RxNorm: 916144 1 Tablet(s) PO QD 10/22/2016 04/21/2017 Inactive isosorbide mononitrate ER 60 mg tablet,extended release 24 h r RxNorm: 880613 1 Tablet(s) PO QD 10/10/2016 10/21/2016 Inactive simvastatin 20 mg tablet RxNorm: 794333 1 Tablet(s) PO QD 10/10/2016 10/21/2016 Inactive gabapentin 400 mg capsule RxNorm: 267307 1 Capsule(s) PO QPM 201609/20/2016 Inactive Toujeo SoloStar 300 unit/mL (1.5 mL) subcutaneous insulin pe n RxNorm: 2438185 35 Unit(s) SQ QAM 07/23/2016 07/22/2016 Inactive Toujeo SoloStar 300 unit/mL (1.5 mL) subcutaneous insulin pe n RxNorm: 3636577 40 Unit(s) SQ QAM 09/01/2015 No Stop Date Active Symbicort 160 mcg-4.5 mcg/actuation HFA aerosol inhaler RxNo rm: 0926550 2 Puff(s) INH BID 08/31/2015 09/09/2015 Inactive prednisone 20 mg tablet RxNorm: 658094 1 Tablet(s) PO BID 08/29/2015 09/02/2015 Inactive albuterol sulfate 2.5 mg/3 mL (0.083 %) solution for n ebulization RxNorm: 766296 1 Unit(s) INH Q4H as needed 08/29/2015 10/09/2016 Inactive levothyroxine 75 mcg tablet RxNorm: 357267 1 Tablet(s) PO QD 201507/27/2015 Inactive levothyroxine 75 mcg tablet RxNorm: 257129 1 Tablet(s) PO QD 201511/18/2018 Inactive levothyroxine 75 mcg tablet RxNorm: 298230 1 Tablet(s) PO QD 201507/27/2015 Inactive lisinopril 20 mg-hydrochlorothiazide 25 mg tablet RxNorm: 19 7887 TAKE ONE TABLET BY MOUTH EVERY MORNING. REPLACES PLAIN LISINOPRIL 03/06/2015 04/21/2017 Inactive lisinopril 20 mg-hydrochlorothiazide 25 mg tablet RxNorm: 19 7887 TAKE ONE TABLET BY MOUTH EVERY MORNING. REPLACES PLAIN LISINOPRIL 09/08/2014 03/05/2015 Inactive allopurinol 100 mg tablet RxNorm: 274111 1 Tablet(s) PO BID 015 10/09/2016 Inactive [SAVINGS FOR NON-COVERED YULIA GS -- BIN:[id number], PCN: [id number], Group: [id number], ID# [id number], Questions: . THIS IS NOT INSURANCE.] levothyroxine 50 mcg tablet RxNorm: 985497 1 Tablet(s) PO QD 201407/26/2015 Inactive [AttnRPh: Saving apply/adjud icate RxGRP:SG20 RxBIN:[id number] RxPCN:HT ID#:[id number]] Zegerid 40 mg-1.1 gram capsule RxNorm: 356910 1 Capsule(s) PO QD 03/03/2014 Inactive [AttnRPh: Saving apply/adjud icate RxGRP:SG20 RxBIN:[id number] RxPCN:HT ID#:[id number]] ondansetron 8 mg disintegrating tablet RxNorm: 152232 1 Tablet(s) PO Q8H as needed for [...] 07/28/2013 Inactive gabapentin 400 mg capsule RxNorm: 995759 1 Capsule(s) PO QPM 201207/28/2013 Inactive gabapentin 400 mg capsule RxNorm: 584198 1 Capsule(s) PO QPM 201206/26/2013 Inactive lisinopril 20 mg-hydrochlorothiazide 25 mg tablet RxNorm: 82 3971 1 Tablet(s) PO QAM replaces plain lisinopril 04/28/2013 07/29/2013 Inactive gabapentin 400 mg capsule RxNorm: 662313 1 Capsule(s) PO QPM 201204/27/2013 Inactive gabapentin 400 mg capsule RxNorm: 180196 1 Capsule(s) PO QPM 201203/10/2013 Inactive gabapentin 400 mg capsule RxNorm: 618429 1 Capsule(s) PO QPM 201203/14/2013 Inactive Lantus Solostar 100 unit/mL (3 mL) Sub-Q Insulin Pen RxNorm: 498419 20 Unit(s) SQ QPM 03/11/2013 03/15/2013 Inactive Toujeo SoloStar 300 unit/mL (1.5 mL) subcutaneous insulin pe n RxNorm: 0123628 35 Unit(s) SQ QAM No Start Date Active omeprazole 20 mg capsule,delayed release RxNorm: 722454 1 Capsu le(s) PO QD No Start Date Active isosorbide mononitrate ER 60 mg tablet,extended release 24 h r RxNorm: 523376 1 Tablet(s) PO QD No Start Date Active Eliquis 5 mg tablet RxNorm: 6387573 1 Tablet(s) PO BID No Start Date Active metformin 500 mg tablet RxNorm: 448599 1 Tablet(s) PO BID No Start Da te Active levothyroxine 50 mcg tablet RxNorm: 382238 1 Tablet(s) PO QD No Start Date Active Norvasc 10 mg tablet RxNorm: 836916 1 Tablet(s) PO QHS No Start Date Active Toujeo SoloStar 300 unit/mL (1.5 mL) subcutaneous insulin pe n RxNorm: 6336065 30 Unit(s) SQ QAM No Start Date Active glimepiride 4 mg tablet RxNorm: 461469 1 Tablet(s) PO QHS No Start Date 07/26/2015 Inactive allopurinol 100 mg tablet RxNorm: 874951 1 Tablet(s) PO BID No Star t Date 08/10/2014 Inactive Lantus Solostar 100 unit/mL (3 mL) subcutaneous insulin pen RxNorm: 102381 30 Unit(s) SQ QD No Start Date 08/03/2014 Inactive Levemir FlexTouch 100 unit/mL (3 mL) subcutaneous insulin pe n RxNorm: 988138 25 Unit(s) SQ QAM No Start Date 07/23/2015 Inactive Lantus 100 unit/mL Sub-Q RxNorm: 883878 30 Unit(s) SQ QHS No Start Date 05/25/2013 Inactive Lantus Solostar 100 unit/mL (3 mL) Sub-Q Insulin Pen RxNorm: 297399 20 Unit(s) SQ QPM No Start Date 03/10/2013 Inactive OneTouch Ultra Blue Test Strip RxNorm: Use 1 rigoberto t strip three times daily to check blood sugar (Dx:E11.65) No Start Date 12/06/2018 Inactive Levemir FlexTouch 100 unit/mL (3 mL) subcutaneous insulin pe n RxNorm: 974125 30- 35 Unit(s) SQ QAM No Start Date 07/23/2015 Inactive Levemir Flexpen 100 unit/mL (3 mL) solution subcutaneo us insulin pen RxNorm: 222975 20-25 Unit(s) SQ QD No Start Date 07/28/2013 Inactive lisinopril 20 mg tablet RxNorm: 135468 1 Tablet(s) PO QD No Start D ate 10/11/2019 Inactive indomethacin ER 75 mg capsule,extended release RxNorm: 50258 2 1 Capsule(s) PO QAM No Start Date 04/27/2013 Inactive indomethacin ER 75 mg capsule,extended release RxNorm: 65545 2 1 Capsule(s) PO QD No Start Date 01/16/2015 Inactive Chlortab-4 oral RxNorm: 687224 oral No Start Date 10/11/2019 Inac tive Vitamin D3 5,000 unit tablet RxNorm: 792290 1 Tablet(s) PO QD No St art Date 08/03/2014 Inactive Levemir Flexpen 100 unit/mL (3 mL) solution subcutaneo us insulin Pen RxNorm: 438891 20 Unit(s) SQ QHS No Start Date 03/10/2013 Inactive Vytorin 10 mg-40 mg tablet RxNorm: 6330709 1/2 Tablet(s) PO QD No S tart Date 04/20/2018 Inactive oxymetazoline-menthol 0.05 % nasal spray RxNorm: 7726191 [place] COTY No Start Date 10/11/2019 Inactive Patient states he ta kes every 10 hours Toujeo SoloStar 300 unit/mL (1.5 mL) subcutaneous insulin pe n RxNorm: 5239252 35 Unit(s) SQ QAM No Start Date 07/22/2016 Inactive Lantus Solostar 100 unit/mL (3 mL) subcutaneous insulin pen RxNorm: 888593 20 Unit(s) SQ QD No Start Date 08/03/2014 Inactive aspirin 81 mg tablet RxNorm: 661534 1 Tablet(s) PO QD No Start Date 0 08/03/2014 Inactive metformin 500 mg tablet RxNorm: 655737 1 Tablet(s) PO BID No Start Date 07/28/2013 Inactive glimepiride 4 mg tablet RxNorm: 280712 1 Tablet(s) PO BID No Start Date 01/16/2015 Inactive glimepiride 4 mg tablet RxNorm: 466830 1 Tablet(s) PO QD No Start D ate 08/03/2014 Inactive levothyroxine 25 mcg tablet RxNorm: 210141 1 Tablet(s) PO QD No Sta rt Date 08/10/2014 Inactive doxycycline oral RxNorm: 03709 oral No Start Date 05/12/2019 Inac tive aspirin 81 mg tablet RxNorm: 640533 1 Tablet(s) PO QD No Start Date 0 07/21/2018 Inactive isosorbide mononitrate ER 60 mg tablet,extended release 24 h r RxNorm: 360021 1 Tablet(s) PO BID No Start Date 01/16/2015 Inactive metformin 500 mg tablet RxNorm: 737291 1 Tablet(s) PO BID No Start Date 04/27/2013 Inactive Plavix 75 mg tablet RxNorm: 298222 1 Tablet(s) PO QD No Start Date Inactive glimepiride 4 mg tablet RxNorm: 963534 1 Tablet(s) PO QPM No Start Date 02/21/2019 Inactive Vytorin 10-40 10 mg-40 mg tablet RxNorm: 1147978 1 Tablet(s) PO QHS No Start Date 08/03/2014 Inactive indomethacin 50 mg capsule RxNorm: 700710 1 Capsule(s) PO QHS No St art Date 01/16/2015 Inactive glimepiride 4 mg tablet RxNorm: 128447 1 Tablet(s) PO BID No Start Date 07/28/2013 Inactive Levemir FlexTouch 100 unit/mL (3 mL) subcutaneous insulin pe n RxNorm: 225448 20 Unit(s) SQ QD No Start Date 04/30/2015 Inactive lisinopril 20 mg tablet RxNorm: 265100 1 Tablet(s) PO BID No Start Date 04/27/2013 Inactive Venita Hopkinsar SubQ RxNorm: Subcutaneous No Start Date 03/15/2013 I nactive Zantac 150 mg tablet RxNorm: 687893 1 Tablet(s) PO QHS No Start Date 10/11/2019 Inactive allopurinol 300 mg tablet RxNorm: 298666 1 Tablet(s) PO QD No Start Date 08/03/2014 Inactive Fish Oil 1,000 mg capsule RxNorm: 1 Capsule(s) PO QD No Start Date 02/21/2019 Inactive indomethacin 50 mg capsule RxNorm: 617565 1 Capsule(s) PO BID No St art Date 04/20/2018 Inactive levothyroxine 50 mcg tablet RxNorm: 125479 1 Tablet(s) PO QD No Sta rt Date 08/10/2014 Inactive glimepiride 4 mg tablet RxNorm: 947883 1 Tablet(s) PO BID No Start Date 03/15/2013 Inactive indomethacin 50 mg capsule RxNorm: 399304 1 Capsule(s) PO QHS No St art Date 04/27/2013 Inactive Medication Administered No Medication Administered data Immunizations Vaccine Codes Date Status Influenza CVX: 135 04/21/2018 Complete Influenza CVX: 135 04/22/2017 Complete Results Observation Observation Code Item Item Code Result Date S ervice Location [facility] 58008 Cholesterol 209 mg/dL 09/17/2016 Unkno wn [facility] 04525 Triglyceride 111 mg/dL 09/17/2016 Unkn own [facility] 74205 HDL CHOLESTEROL 50 mg/dL 09/17/2016 U nknown [facility] 02481 Chol/HDL Ratio 4.18 ratio 09/17/2016 U nknown [facility] 79497 NON-HDL Chol 159 mg/dL 09/17/2016 Unkn own [facility] 04667 LDL Cholesterol 137 mg/dL 09/17/2016 U nknown MEAN GLUC 8953372 Calc Mean Gluc 151 mg/dL 09/17/2016 Unkn own COMPREHENSIVE METABOLIC 62642 AST 23 U/L 2016 Unknown COMPREHENSIVE METABOLIC 53136 ALT 19 U/L 2016 Unknown [facility]PREHENS[facility] MET[facility]OLIC 24378 BUN 15 mg/dL 2016 Unknown COMPREHENSIVE METABOLIC 56188 ALBUMIN 4.3 g/dL 2016 Unknown COMPREHENSIVE METABOLIC 74263 CHLORIDE 103 mmol/L 09/17 Unknown COMPREHENSIVE METABOLIC 12963 Bili Total 0.6 mg/dL 09/17 Unknown COMPREHENSIVE METABOLIC 62502 ALK PHOS 60 U/L 2016 Unknown COMPREHENSIVE METABOLIC 56664 SODIUM 140 mmol/L 09/17 Unknown COMPREHENSIVE METABOLIC 86611 CREATININE 1.03 mg/dL 09/04 Unknown COMPREHENSIVE METABOLIC 53429 CALCIUM 9.5 mg/dL 2016 Unknown COMPREHENSIVE METABOLIC 54297 POTASSIUM 3.9 mmol/L 09/17 Unknown COMPREHENSIVE METABOLIC 01777 Total Protein 6.9 g/dL Unknown COMPREHENSIVE METABOLIC 68406 Glucose 94 mg/dL 2016 Unknown COMPREHENSIVE METABOLIC 27611 Bicarbonate 28 mmol/L 09/04 Unknown COMPREHENSIVE METABOLIC 29966 AGAP 9 mmol/L 2016 Unknown GFR CALC 1179900 GFR Non Afr Amr >60 mL/min 09/17/2016 Un known GFR CALC 0025039 GFR Afr Amr >60 mL/min 09/17/2016 Unknow n THYROID STIMULATING HORMONE 81253 TSH 4.260 uIU/mL 09/17/2016 Unknown GLYCOSYLATED HEMOGLOBIN TEST 51713 Hgb A1c 09391-9 6.9 % 0 09/17/2016 Unknown FREE T4 80085 T4 Free 1.02 ng/dL 09/17/2016 Unknown COMPLETE BLOOD COUNT [id number] WBC 8.6 10e9/L 07/26/19 16 Unknown COMPLETE BLOOD COUNT [id number] RBC 4.86 10e12/L 2015 Unknown COMPLETE BLOOD COUNT 8344824 HGB 14.6 g/dL 6 Unknown COMPLETE BLOOD COUNT 2304943 HCT DET 43.1 % 6 Unknown COMPLETE BLOOD COUNT 8004216 MCV 88.7 fL 6 Unknown COMPLETE BLOOD COUNT 8151779 MCH 30.0 pg 6 Unknown COMPLETE BLOOD COUNT 0674176 MCHC 33.9 g/dL 6 Unknown COMPLETE BLOOD COUNT 3077824 PLT 267 10e9/L 07/26/19 16 Unknown COMPLETE BLOOD COUNT [id number] MPV 11.5 fL 6 Unknown COMPLETE BLOOD COUNT 2765935 SAM % 64.8 % 6 Unknown COMPLETE BLOOD COUNT 2161238 LY % 16.8 % 6 Unknown COMPLETE BLOOD COUNT [id number] MON % 12.5 % 6 Unknown COMPLETE BLOOD COUNT 8102379 EOS % 5.6 % 6 Unknown COMPLETE BLOOD COUNT 3454928 BASO % 0.3 % 6 Unknown COMPLETE BLOOD COUNT [id number] RDW 13.4 % 6 Unknown COMPLETE BLOOD COUNT [id number] ABS SAM 5.57 10e9/L 016 Unknown COMPLETE BLOOD COUNT [id number] ABS LYMPH 1.44 10e9/L 016 Unknown COMPLETE BLOOD COUNT [id number] ABS MONO 1.08 10e9/L 016 Unknown COMPLETE BLOOD COUNT [id number] ABS EOS 0.48 10e9/L 016 Unknown COMPLETE BLOOD COUNT [id number] ABS BASO 0.03 10e9/L 016 Unknown COMPLETE BLOOD COUNT [id number] RDW-SD 42.9 fL 6 Unknown PSA EQUIMOLAR MATT 64139 PSA EQ 0.78 NG/ML 6 Unknown THYROID STIMULATING HORMONE 48308 TSH 5.292 uIU/ML 07/26/2015 Unknown GLYCOSYLATED HEMOGLOBIN TEST 84938 A1C HPLC 14083-7 7.0 % 0 07/26/2015 Unknown GFR CALC 6555420 GFR AA >60 ML/MIN 07/26/2015 Unknown GFR CALC 8900060 GFR NON-AA >60 ML/MIN 07/26/2015 Unknown [facility] 45385 HDL TEST 64 MG/DL 07/26/2015 Unknown [facility] 31593 TRIG 58 MG/DL 07/26/2015 Unknown [facility] 64850 TEST LDL 49 MG/DL 07/26/2015 Unknown [facility] 32631 CHOL 125 MG/DL 07/26/2015 Unknown [facility] 26584 RCHOL/HDL 1.95 RATIO 07/26/2015 Unknow n [facility] GROUP 45574 NON-HDL CH 61 MG/DL 07/26/2015 Unknow n COMPREHENSIVE METABOLIC 27307 AST 25 U/L 2015 Unknown COMPREHENSIVE METABOLIC 59980 ALT 23 IU/L 2015 Unknown COMPREHENSIVE METABOLIC 63311 BUN 18 MG/DL 2015 Unknown COMPREHENSIVE METABOLIC 70322 ALBUMIN 4.6 GM/DL 2015 Unknown COMPREHENSIVE METABOLIC 91281 CHLORIDE 100 MMOL/L 07/26 Unknown COMPREHENSIVE METABOLIC 47945 BILI TOT 0.5 MG/DL 2015 Unknown COMPREHENSIVE METABOLIC 52911 ALK PHOS 49 U/L 2015 Unknown COMPREHENSIVE METABOLIC 75137 SODIUM 137 MMOL/L 07/26 Unknown COMPREHENSIVE METABOLIC 42085 CREATININE 1.06 MG/DL 07/08 Unknown COMPREHENSIVE METABOLIC 45316 CALCIUM 9.5 MG/DL 2015 Unknown COMPREHENSIVE METABOLIC 33517 POTASSIUM 4.5 MMOL/L 07/26 Unknown COMPREHENSIVE METABOLIC 66862 PROT TOT 6.5 GM/DL 2015 Unknown COMPREHENSIVE METABOLIC 26426 Glucose 109 MG/DL 2015 Unknown COMPREHENSIVE METABOLIC 10270 BICARB 29 MMOL/L 2015 Unknown COMPREHENSIVE METABOLIC 57382 ANION GAP 8 MEQ/L 2015 Unknown FREE T4 50181 FREE T4 1.11 NG/DL 07/26/2015 Unknown CULTURE & SENSITIVITY 90242 PROTEIN UR NEG 015 Unknown [facility]ULTURE & SENSITIVITY 16512 HEMGLBN UR TR 015 Unknown CULTURE & SENSITIVITY 60388 GLUCOSE UR NEG 015 Unknown CULTURE & SENSITIVITY 26038 KETONES UR NEG 015 Unknown CULTURE & SENSITIVITY 28052 PH U 6.5 01/25/20 15 Unknown CULTURE & SENSITIVITY 07943 SP GR U 1.013 01/25/20 15 Unknown CULTURE & SENSITIVITY 06264 BILRUBN UR NEG 015 Unknown CULTURE & SENSITIVITY 85605 LEUKO UR NEG 01/25/20 15 Unknown CULTURE & SENSITIVITY 13736 NITRITE UR NEG 015 Unknown MICR CUL? [id number] SP TO JOHANA? NO 01/24/2015 Unknown MICR CUL? 5143214 APPEAR UR NORMAL 01/24/2015 Unknown MICR CUL? 8565079 RBC/uL 2.2 01/24/2015 Unknown MICR CUL? 3818774 WBC/uL 2.8 01/24/2015 Unknown MICR CUL? 8492588 SQ EPI/uL 1.0 01/24/2015 Unknown MICR CUL? 0132399 HYALCST/uL 0.25 01/24/2015 Unknown MICR CUL? 5607205 WBC /HPF 1 01/24/2015 Unknown MICR CUL? 1233604 RBC /HPF 0 01/24/2015 Unknown GLYCOSYLATED HEMOGLOBIN TEST 65823 A1C HPLC 35191-3 6.6 % 0 01/17/2015 Unknown COMPLETE BLOOD COUNT [id number] WBC 10.1 10e9/L 015 Unknown COMPLETE BLOOD COUNT [id number] RBC 4.60 10e12/L 2014 Unknown COMPLETE BLOOD COUNT 1194928 HGB 14.0 g/dL 5 Unknown COMPLETE BLOOD COUNT 0678397 HCT DET 39.9 % 5 Unknown COMPLETE BLOOD COUNT 2167831 MCV 86.7 fL 5 Unknown COMPLETE BLOOD COUNT 0924727 MCH 30.4 pg 5 Unknown COMPLETE BLOOD COUNT 4109672 MCHC 35.1 g/dL 5 Unknown COMPLETE BLOOD COUNT 9311082 PLT 252 10e9/L 01/18/20 15 Unknown COMPLETE BLOOD COUNT 7819689 MPV 11.4 fL 5 Unknown COMPLETE BLOOD COUNT 6211046 SAM % 72.9 % 5 Unknown COMPLETE BLOOD COUNT 7358740 LY % 13.6 % 5 Unknown COMPLETE BLOOD COUNT 7403355 MON % 10.2 % 5 Unknown COMPLETE BLOOD COUNT 2989935 EOS % 3.1 % 5 Unknown COMPLETE BLOOD COUNT 3435550 BASO % 0.2 % 5 Unknown COMPLETE BLOOD COUNT 8231270 RDW 13.6 % 5 Unknown COMPLETE BLOOD COUNT 3217162 ABS SAM 7.36 10e9/L 015 Unknown COMPLETE BLOOD COUNT [id number] ABS LYMPH 1.37 10e9/L 015 Unknown COMPLETE BLOOD COUNT [id number] ABS MONO 1.03 10e9/L 015 Unknown COMPLETE BLOOD COUNT [id number] ABS EOS 0.31 10e9/L 015 Unknown COMPLETE BLOOD COUNT [id number] ABS BASO 0.02 10e9/L 015 Unknown COMPLETE BLOOD COUNT 9460974 RDW-SD 42.4 fL 5 Unknown GFR CALC 3952158 GFR AA 51.0L ML/MIN 01/17/2015 Unknow n GFR CALC 8405018 GFR NON-AA 42.0L ML/MIN 01/17/2015 Unkno wn FREE T4 50469 FREE T4 1.30 NG/DL 01/17/2015 Unknown THYROID STIMULATING HORMONE 06927 TSH 4.029 uIU/ML 01/17/2015 Unknown COMPREHENSIVE METABOLIC 76937 AST 28 U/L 2014 Unknown COMPREHENSIVE METABOLIC 28833 ALT 25 IU/L 2014 Unknown COMPREHENSIVE METABOLIC 02853 BUN 21 MG/DL 2014 Unknown COMPREHENSIVE METABOLIC 99244 ALBUMIN 4.7 GM/DL 2014 Unknown COMPREHENSIVE METABOLIC 24298 CHLORIDE 102 MMOL/L 01/17 Unknown COMPREHENSIVE METABOLIC 16585 BILI TOT 0.6 MG/DL 2014 Unknown COMPREHENSIVE METABOLIC 73556 ALK PHOS 44 U/L 2014 Unknown COMPREHENSIVE METABOLIC 09536 SODIUM 137 MMOL/L 01/17 Unknown COMPREHENSIVE METABOLIC 72856 CREATININE 1.62 MG/DL 01/04 Unknown COMPREHENSIVE METABOLIC 15304 CALCIUM 9.7 MG/DL 2014 Unknown COMPREHENSIVE METABOLIC 08207 POTASSIUM 4.5 MMOL/L 01/17 Unknown COMPREHENSIVE METABOLIC 51908 PROT TOT 6.5 GM/DL 2014 Unknown COMPREHENSIVE METABOLIC 71192 Glucose 136 MG/DL 2014 Unknown COMPREHENSIVE METABOLIC 98365 BICARB 24 MMOL/L 2014 Unknown COMPREHENSIVE METABOLIC 81436 ANION GAP 11 MEQ/L 2014 Unknown VITAMIN B 12 47962 VIT B 12 482 PG/ML 01/17/2015 Unknow n URIC ACID 03526 URIC ACID 8.5 MG/DL 08/09/2014 Unknown COMPREHENSIVE METABOLIC 17716 AST 27 U/L 2014 Unknown COMPREHENSIVE METABOLIC 12068 ALT 26 IU/L 2014 Unknown COMPREHENSIVE METABOLIC 75018 BUN 17 MG/DL 2014 Unknown COMPREHENSIVE METABOLIC 63920 ALBUMIN 5.0 GM/DL 2014 Unknown COMPREHENSIVE METABOLIC 45730 CHLORIDE 101 MMOL/L 08/09 Unknown COMPREHENSIVE METABOLIC 64011 BILI TOT 0.7 MG/DL 2014 Unknown COMPREHENSIVE METABOLIC 59292 ALK PHOS 53 U/L 2014 Unknown COMPREHENSIVE METABOLIC 09272 SODIUM 136 MMOL/L 08/09 Unknown COMPREHENSIVE METABOLIC 54212 CREATININE 1.14 MG/DL 09/2014 Unknown COMPREHENSIVE METABOLIC 39303 CALCIUM 9.8 MG/DL 2014 Unknown COMPREHENSIVE METABOLIC 91746 POTASSIUM 4.1 MMOL/L 08/09 Unknown COMPREHENSIVE METABOLIC 46205 PROT TOT 7.5 GM/DL 2014 Unknown COMPREHENSIVE METABOLIC 93015 Glucose 110 MG/DL 2014 Unknown COMPREHENSIVE METABOLIC 38303 BICARB 30 MMOL/L 2014 Unknown COMPREHENSIVE METABOLIC 86382 ANION GAP 5 MEQ/L 2014 Unknown GFR CALC 4769516 GFR AA >60 ML/MIN 08/09/2014 Unknown GFR CALC 3371054 GFR NON-AA >60 ML/MIN 08/09/2014 Unknown FREE T4 35218 FREE T4 1.14 NG/DL 08/09/2014 Unknown GLYCOSYLATED HEMOGLOBIN TEST 75561 A1C HPLC 88881-0 6.8 % 0 08/09/2014 Unknown COMPLETE BLOOD COUNT [id number] WBC 5.9 10e9/L 08/09/19 15 Unknown COMPLETE BLOOD COUNT [id number] RBC 5.04 10e12/L 2014 Unknown COMPLETE BLOOD COUNT 6148175 HGB 15.2 g/dL 5 Unknown COMPLETE BLOOD COUNT 7766554 HCT DET 44.3 % 5 Unknown COMPLETE BLOOD COUNT 9939354 MCV 87.9 fL 5 Unknown COMPLETE BLOOD COUNT [id number] MCH 30.2 pg 5 Unknown COMPLETE BLOOD COUNT [id number] MCHC 34.3 g/dL 5 Unknown COMPLETE BLOOD COUNT [id number] PLT 262 10e9/L 08/09/19 15 Unknown COMPLETE BLOOD COUNT [id number] MPV 10.9 fL 5 Unknown COMPLETE BLOOD COUNT [id number] SAM % 58.7 % 5 Unknown COMPLETE BLOOD COUNT [id number] LY % 21.5 % 5 Unknown COMPLETE BLOOD COUNT [id number] MON % 14.0 % 5 Unknown COMPLETE BLOOD COUNT [id number] EOS % 5.3 % 5 Unknown COMPLETE BLOOD COUNT [id number] BASO % 0.5 % 5 Unknown COMPLETE BLOOD COUNT [id number] RDW 13.1 % 5 Unknown COMPLETE BLOOD COUNT [id number] ABS SAM 3.46 10e9/L 015 Unknown COMPLETE BLOOD COUNT [id number] ABS LYMPH 1.27 10e9/L 015 Unknown COMPLETE BLOOD COUNT [id number] ABS MONO 0.83 10e9/L 015 Unknown COMPLETE BLOOD COUNT [id number] ABS EOS 0.31 10e9/L 015 Unknown COMPLETE BLOOD COUNT [id number] ABS BASO 0.03 10e9/L 015 Unknown COMPLETE BLOOD COUNT [id number] RDW-SD 41.2 fL 5 Unknown THYROID STIMULATING HORMONE [id number] TSH 5.395 uIU/ML 08/09/2014 Unknown LIPID GROUP [id number] HDL TEST 52 MG/DL 08/09/2014 Unknown LIPID GROUP [id number] TRIG 113 MG/DL 08/09/2014 Unknown LIPID GROUP [id number] TEST LDL 158 MG/DL 08/09/2014 Unknown LIPID GROUP 72511 CHOL 233 MG/DL 08/09/2014 Unknown LIPID GROUP 96132 RCHOL/HDL 4.48 RATIO 08/09/2014 Unknow n LIPID GROUP 69587 NON-HDL CH 181 MG/DL 08/09/2014 Unknow n COMPLETE BLOOD COUNT [id number] WBC 6.8 10e9/L 09/09/19 14 Unknown COMPLETE BLOOD COUNT [id number] RBC 5.18 10e12/L 2013 Unknown COMPLETE BLOOD COUNT [id number] HGB 15.2 g/dL 4 Unknown COMPLETE BLOOD COUNT [id number] HCT DET 44.7 % 4 Unknown COMPLETE BLOOD COUNT [id number] MCV 86.3 fL 4 Unknown COMPLETE BLOOD COUNT [id number] MCH 29.3 pg 4 Unknown COMPLETE BLOOD COUNT [id number] MCHC 34.0 g/dL 4 Unknown COMPLETE BLOOD COUNT [id number] PLT 236 10e9/L 09/09/19 14 Unknown COMPLETE BLOOD COUNT [id number] MPV 11.0 fL 4 Unknown COMPLETE BLOOD COUNT [id number] SAM % 58.2 % 4 Unknown COMPLETE BLOOD COUNT [id number] LY % 21.9 % 4 Unknown COMPLETE BLOOD COUNT [id number] MON % 12.5 % 4 Unknown COMPLETE BLOOD COUNT [id number] EOS % 7.3 % 4 Unknown COMPLETE BLOOD COUNT [id number] BASO % 0.1 % 4 Unknown COMPLETE BLOOD COUNT 3881900 RDW 13.6 % 4 Unknown COMPLETE BLOOD COUNT [id number] ABS SAM 3.96 10e9/L 014 Unknown COMPLETE BLOOD COUNT [id number] ABS LYMPH 1.49 10e9/L 014 Unknown COMPLETE BLOOD COUNT [id number] ABS MONO 0.85 10e9/L 014 Unknown COMPLETE BLOOD COUNT [id number] ABS EOS 0.50 10e9/L 014 Unknown COMPLETE BLOOD COUNT [id number] ABS BASO 0.01 10e9/L 014 Unknown COMPLETE BLOOD COUNT [id number] RDW-SD 42.3 fL 4 Unknown COMPREHENSIVE METABOLIC 07040 AST 27 U/L 2013 Unknown COMPREHENSIVE METABOLIC 10223 ALT 30 IU/L 2013 Unknown COMPREHENSIVE METABOLIC 82309 BUN 16 MG/DL 2013 Unknown COMPREHENSIVE METABOLIC 55382 ALBUMIN 4.9 GM/DL 2013 Unknown COMPREHENSIVE METABOLIC 70299 CHLORIDE 99 MMOL/L 2013 Unknown COMPREHENSIVE METABOLIC 97092 BILI TOT 0.7 MG/DL 2013 Unknown COMPREHENSIVE METABOLIC 35361 ALK PHOS 53 U/L 2013 Unknown COMPREHENSIVE METABOLIC 33174 SODIUM 137 MMOL/L 09/08 Unknown COMPREHENSIVE METABOLIC 57141 CREATININE 1.01 MG/DL 11/2013 Unknown COMPREHENSIVE METABOLIC 26767 CALCIUM 10.0 MG/DL 09/08 Unknown COMPREHENSIVE METABOLIC 85101 POTASSIUM 4.4 MMOL/L 09/08 Unknown COMPREHENSIVE METABOLIC 09247 PROT TOT 7.1 GM/DL 2013 Unknown COMPREHENSIVE METABOLIC 24474 Glucose 148 MG/DL 2013 Unknown COMPREHENSIVE METABOLIC 53804 BICARB 30 MMOL/L 2013 Unknown COMPREHENSIVE METABOLIC 97020 ANION GAP 8 MEQ/L 2013 Unknown GFR CALC 8363645 GFR AA >60 ML/MIN 09/08/2013 Unknown GFR CALC 3301908 GFR NON-AA >60 ML/MIN 09/08/2013 Unknown FREE T4 89056 FREE T4 1.08 NG/DL 09/08/2013 Unknown GLYCOSYLATED HEMOGLOBIN TEST 91681 A1C HPLC 03672-6 7.3 % 0 09/08/2013 Unknown THYROID STIMULATING HORMONE 17473 TSH 5.454 uIU/ML 09/08/2013 Unknown LIPID GROUP 71033 HDL TEST 59 MG/DL 09/08/2013 Unknown LIPID GROUP 88639 TRIG 92 MG/DL 09/08/2013 Unknown LIPID GROUP 81065 TEST LDL 83 MG/DL 09/08/2013 Unknown LIPID GROUP 27852 CHOL 160 MG/DL 09/08/2013 Unknown LIPID GROUP 89660 RCHOL/HDL 2.71 RATIO 09/08/2013 Unknow n VITAMIN B 12 FOLIC ACID 75251|45732 VIT B 12 467 PG/ML 12/2012 Unknown VITAMIN B 12 FOLIC ACID 07182|43141 FOLIC ACID 12.2 NG/ML Unknown VITAMIN B 12 FOLIC ACID 62223|83718 VIT B 12 467 PG/ML 12/2012 Unknown THYROID STIMULATING HORMONE 17115 TSH 4.557 uIU/ML 03/12/2013 Unknown HEMOGLOBIN A1C (GLYCOSYLATED) 3129910 A1C HPLC 31270-9 7.6 % 03/12/2013 Unknown VITAMIN D TOTAL (25 HYDROXY) 42643 VIT D TOTL 17 NG/ML 03/12/2013 Unknown FREE T4 33319 FREE T4 1.07 NG/DL 03/12/2013 Unknown URIC ACID 96965 URIC ACID 5.2 MG/DL 03/12/2013 Unknown Procedures Procedure Codes Date THER/PROPH/DIAG INJ SC/IM CPT-4: 77520 05/13/2019 TRIAMCINOLONE ACET INJ NOS CPT-4: J3301 05/13/2019 DEXAMETHASONE SODIUM PHOS CPT-4: J1100 05/13/2019 THER/PROPH/DIAG INJ SC/IM CPT-4: 21477 02/22/2019 TRIAMCINOLONE ACET INJ NOS CPT-4: J3301 02/22/2019 FLU VACC PRSV FREE INC ANTIG 65 AND OLDER CPT-4: 24271 04/21/2018 ADMIN INFLUENZA VIRUS VAC CPT-4: G0008 04/21/2018 PRESCRIP TRANSMIT VIA ERX SY CPT-4: G8553 04/21/2018 DESTRUCT PREMALG LESION (Cryosurgery) CPT-4: 11647 FLU VACC PRSV FREE INC ANTIG 65 AND OLDER CPT-4: 99316 04/22/2017 ADMIN INFLUENZA VIRUS VAC CPT-4: G0008 04/22/2017 PRESCRIP TRANSMIT VIA ERX SY CPT-4: G8553 10/10/2016 PRESCRIP TRANSMIT VIA ERX SY CPT-4: G8553 08/29/2015 ROUTINE VENIPUNCTURE CPT-4: 54558 07/26/2015 ASSAY OF FREE THYROXINE CPT-4: 59639 07/26/2015 ASSAY THYROID STIM HORMONE CPT-4: 32705 07/26/2015 COMPREHEN METABOLIC PANEL CPT-4: 82592 07/26/2015 COMPLETE CBC W/AUTO DIFF WBC CPT-4: 07882 07/26/2015 LIPID PANEL CPT-4: 57999 07/26/2015 ASSAY OF PSA TOTAL CPT-4: 86169 07/26/2015 A1C HPLC CPT-4: 13610 07/26/2015 ROUTINE VENIPUNCTURE CPT-4: 57788 01/17/2015 ASSAY OF FREE THYROXINE CPT-4: 81571 01/17/2015 ASSAY THYROID STIM HORMONE CPT-4: 01317 01/17/2015 COMPREHEN METABOLIC PANEL CPT-4: 95318 01/17/2015 COMPLETE CBC W/AUTO DIFF WBC CPT-4: 63720 01/17/2015 A1C HPLC CPT-4: 61388 01/17/2015 VITAMIN B-12 CPT-4: 92512 01/17/2015 PPPS, subseq visit CPT-4: G0439 08/04/2014 PRESCRIP TRANSMIT VIA ERX SY CPT-4: G8553 02/18/2014 FLUZONE, 5ML (Medicare) CPT-4: Q2038 07/22/2013 ADMIN INFLUENZA VIRUS VAC CPT-4: G0008 07/22/2013 PRESCRIP TRANSMIT VIA ERX SY CPT-4: G8553 04/28/2013 ROUTINE VENIPUNCTURE CPT-4: 16939 03/12/2013 VITAMIN D TOTAL (25 HYDROXY) CPT-4: 64879 03/12/2013 VITAMIN B 12 FOLIC ACID CPT-4: 22406|35072 03/12/2013 A1C GLYCOSYLATED HEMOGLOBIN TEST CPT-4: 54599 013 ASSAY OF BLOOD/URIC ACID CPT-4: 20113 03/12/2013 ASSAY OF FREE THYROXINE CPT-4: 32802 03/12/2013 ASSAY THYROID STIM HORMONE CPT-4: 36052 03/12/2013 CUR TOBACCO NON-USER CPT-4: G8457 03/11/2013 [...] 1: 156/70 Code: 8480-6 BMI: 35.0 Code: 68821-1 Heart Rate 1: 68 bpm Height: 5'10" Respiratory Rate: 20 bpm SpO2: 95% Tempera ture: 36.5 (C) / 97.7 (F) Weight: 244 lbs 04/21/2018 Blood Pressure 1: 124/80 Code: 8480-6 BMI: 34.4 Code: 88438-5 Heart Rate 1: 80 bpm Height: 5'10" Respiratory Rate: 20 bpm SpO2: 96% Tempera ture: 37.0 (C) / 98.6 (F) Weight: 240 lbs 01/06/2018 Blood Pressure 1: 138/82 Code: 8480-6 BMI: 33.9 Code: 52704-7 Heart Rate 1: 96 bpm Height: 5'10" Respiratory Rate: 24 bpm SpO2: 98% Tempera ture: 35.9 (C) / 96.6 (F) Weight: 236 lbs 10/22/2017 Blood Pressure 1: 144/70 Code: 8480-6 BMI: 34.7 Code: 81924-5 Heart Rate 1: 72 bpm Height: 5'10" Respiratory Rate: 20 bpm SpO2: 96% Tempera ture: 36.9 (C) / 98.4 (F) Weight: 242 lbs 04/22/2017 Blood Pressure 1: 146/82 Code: 8480-6 BMI: 32.9 Code: 59222-4 Heart Rate 1: 104 bpm Height: 5'10" Respiratory Rate: 20 bpm SpO2: 95% Tempera ture: 36.9 (C) / 98.5 (F) Weight: 229 lbs 10/10/2016 Blood Pressure 1: 124/64 Code: 8480-6 BMI: 32.9 Code: 23030-5 Heart Rate 1: 64 bpm Height: 5'10" [...] 1: 146/90 Code: 8480-6 BMI: 34.1 Code: 24445-6 Heart Rate 1: 80 bpm Height: 5'10" Respiratory Rate: 20 bpm Temperature: 36 .8 (C) / 98.2 (F) Weight: 238 lbs 01/17/2015 Blood Pressure 1: 116/60 Code: 8480-6 BMI: 32.7 Code: 59942-9 Heart Rate 1: 84 bpm Height: 5'10" Respiratory Rate: 20 bpm Temperature: 36 .7 (C) / 98.0 (F) Weight: 228 lbs 09/29/2014 Blood Pressure 1: 136/78 Code: 8480-6 BMI: 33.9 Code: 72911-2 Heart Rate 1: 80 bpm Height: 5'10" Respiratory Rate: 20 bpm Temperature: 36 .6 (C) / 97.9 (F) Weight: 236 lbs 08/04/2014 Blood Pressure 1: 132/70 Code: 8480-6 BMI: 32.9 Code: 62250-1 Heart Rate 1: 72 bpm Height: 5'10" Respiratory Rate: 20 bpm Temperature: 36 .7 (C) / 98.0 (F) Weight: 229 lbs 02/18/2014 Blood Pressure 1: 124/82 Code: 8480-6 Heart Rate 1: 82 bpm Respiratory Rate: 18 bpm Temperature: 36.4 (C) / 97.5 (F) Weight: 232 lbs 07/29/2013 Blood Pressure 1: 146/80 Code: 8480-6 BMI: 34.1 Code: 87762-5 Heart Rate 1: 64 bpm Height: 5'10" Respiratory Rate: 20 bpm Temperature: 36 .9 (C) / 98.5 (F) Weight: 238 lbs 05/26/2013 Blood Pressure 1: 142/90 Code: 8480-6 BMI: 34.0 Code: 63790-2 Heart Rate 1: 84 bpm Height: 5'10" Respiratory Rate: 20 bpm Temperature: 36 .7 (C) / 98.0 (F) Weight: 237 lbs 04/28/2013 Blood Pressure 1: 118/78 Code: 8480-6 BMI: 32.9 Code: 13341-1 Heart Rate 1: 74 bpm Height: 5'10" Respiratory Rate: 20 bpm Temperature: 36 .1 (C) / 97.0 (F) Weight: 229 lbs 03/11/2013 Blood Pressure 1: 146/80 Code: 8480-6 BMI: 31.5 Code: 98791-4 Heart Rate 1: 80 bpm Height: 6' [...] Codes Date () OFFICE/OUTPATIENT VISIT EST Diagnosis: DM w/o complication type II, uncontrolled[ICD10: E11.65] Diagnosis: Other dyspnea and respiratory abnormality[ICD10: R06.09] Xiomara BETTENCOURT DO [facility] CPT-4: 68525 10/27/2019 ([id number]) OFFICE/OUTPATIENT VISIT EST Diagnosis: Chronic obstructive pulmonary disease, unspecified[ICD10: J44.9] Diagnosis: DM w/o complication type II, uncontrolled[ICD10: E11.65] Diagnosis: Edema[ICD10: R60.9] Xiomara BETTENCOURT [facility] CPT-4: 12113 10/20/2019 ([id number]) OFFICE/OUTPATIENT VISIT EST Diagnosis: Other dyspnea and respiratory abnormality[ICD10: R06.09] Diagnosis: Obstructive sleep apnea[ICD10: G47.33] Diagnosis: Hypotension[ICD10: I95.9] Xiomara Bettencourt [facility] CPT -4: 60595 10/12/2019 ([id number]) OFFICE/OUTPATIENT VISIT EST Diagnosis: Upper respiratory infection[ICD10: J06.9] Pennie BETTENCOURT [facility] CPT-4: 44747 06/02/2019 ([id number]) OFFICE/OUTPATIENT VISIT EST Diagnosis: Sinusitis[ICD10: J32.9] Diagnosis: Allergic rhinitis[ICD10: J30.9] Pennie BETTENCOURT [facility] CPT-4: 62884 05/13/2019 ([id number]) OFFICE/OUTPATIENT VISIT EST Diagnosis: Pneumonia[ICD10: J18.9] Pennie MCBRIDE [facility] CPT-4: 84362 04/26/2019 ([id number]) OFFICE/OUTPATIENT VISIT EST Diagnosis: Acute sinusitis, unspecified[ICD10: J01.90] Pennie BETTENCOURT [facility] CPT-4: 36972 02/22/2019 ([id number]) OFFICE/OUTPATIENT VISIT EST Diagnosis: Cervicalgia[ICD10: M54.2] Xiomara MCGEE [facility] CPT-4: 28453 11/25/2018 ([id number]) OFFICE/OUTPATIENT VISIT EST Diagnosis: Acute sinusitis, unspecified[ICD10: J01.90] Diagnosis: Myalgia, unspecified site[ICD10: M79.10] Diagnosis: Cervicalgia[ICD10: M54.2] Xiomara MCGEE [facility] CPT-4: 24410 11/19/2018 ([id number]) OFFICE/OUTPATIENT VISIT EST Diagnosis: Low back pain[ICD10: M54.5] Diagnosis: Essential (primary) hypertension[ICD10: I10] Diagnosis: 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, 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] Diagnosis: Paroxysmal atrial fibrillation[ICD10: I48.0] [facility]: 02762 07/22/2018 ([id number]) OFFICE/OUTPATIENT VISIT EST Diagnosis: Type 2 diabetes mellitus with diabetic neuropathy, unspecified[ICD10: E11.40] Diagnosis: Hyperlipidemia, unspecified[ICD10: E78.5] Diagnosis: Essential (primary) hypertension[ICD10: I10] Diagnosis: Chronic kidney disease, stage 1[ICD10: N18.1] Diagnosis: Benign prostatic hyperplasia with lower urinary tract symptoms[ICD10: N40.1] Diagnosis: FLU VACCINE[ICD10: Z23] Xiomara LARA [employer] [facility] [employer] [facility] CPT-4: 54835 04/21/2018 OFFICE/OUTPATIENT VISIT EST Diagnosis: Type 2 diabetes mellitus with hyperglycemia[ICD10: E11.65] Diagnosis: Essential (primary) hypertension[ICD10: I10] Diagnosis: Mixed hyperlipidemia[ICD10: E78.2] Diagnosis: Other fatigue[ICD10: R53.83] Pennie MCBRIDE [employer] [facility] CPT-4: 62171 01/06/2018 ([id number]) OFFICE/OUTPATIENT VISIT EST Diagnosis: Type 2 diabetes mellitus with diabetic neuropathy, unspecified[ICD10: E11.40] Diagnosis: Essential (primary) hypertension[ICD10: I10] Diagnosis: Pain in right thigh[ICD10: M79.651] Diagnosis: Pain in left leg[ICD10: M79.605] Diagnosis: Localized swelling, mass and lump, left lower limb[ICD10: R22.42] Diagnosis: OSTEOARTHRISIS MULTI SITES[ICD10: M19.90] Diagnosis: FLU VACCINE[ICD10: Z23] Xiomara Gan [facility] [employer] [facility] CPT-4: 89620 04/22/2017 ([id number]) OFFICE/OUTPATIENT VISIT EST Diagnosis: Essential (primary) hypertension[ICD10: I10] Diagnosis: Type 2 diabetes mellitus with hyperglycemia[ICD10: E11.65] Diagnosis: Angina pectoris, unspecified[ICD10: I20.9] Xiomara BETTENCOURT [employer] [facility] CPT-4: 24442 10/10/2016 ([id number]) OFFICE/OUTPATIENT VISIT EST Diagnosis: Cough[ICD10: R05] Diagnosis: Wheezing[ICD10: R06.2] Diagnosis: Chronic obstructive pulmonary disease, unspecified[ICD10: J44.9] Shannan BETTENCOURT [employer] [facility] CPT-4: 33846 08/31/2015 OFFICE/OUTPATIENT VISIT EST Diagnosis: Acute bronchitis, unspecified[ICD10: J20.9] Diagnosis: Wheezing[ICD10: R06.2] Kelsie Dolan [employer] CPT-4: 07191 08/29/2015 ([id number]) OFFICE/OUTPATIENT VISIT EST Diagnosis: Type 2 diabetes mellitus with diabetic neuropathy, unspecified[ICD10: E11.40] Diagnosis: Hyperlipidemia, unspecified[ICD10: E78.5] Diagnosis: Essential (primary) hypertension[ICD10: I10] Diagnosis: Encounter for general adult medical examination without abnormal findings[ICD10: Z00.00] Xiomara BETTENCOURT [employer] [facility] CPT-4: 39138 07/26/2015 OFFICE/OUTPATIENT VISIT EST Diagnosis: Type 2 diabetes mellitus with hyperglycemia[ICD10: E11.65] Diagnosis: Unspecified osteoarthritis, unspecified site[ICD10: M19.90] Diagnosis: Other instability, right knee[ICD10: M25.361] Kelsie BETTENCOURT [employer] CPT-4: 45975 07/24/2015 ([id number]) OFFICE/OUTPATIENT VISIT EST Diagnosis: Pain in leg, unspecified[ICD10: M79.606] Diagnosis: Type 2 diabetes mellitus with diabetic neuropathy, unspecified[ICD10: E11.40] Xiomara BETTENCOURT [employer] CPT-4: 97622 05/01/2015 ([id number]) OFFICE/OUTPATIENT VISIT EST Diagnosis: MALAISE AND FATIGUE[ICD9: 780.79] Diagnosis: 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, 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] Diagnosis: CAD[ICD9: 414.00] Diagnosis: ANEMIA NOS[ICD9: 285.9] Xiomara MCBRIDE ER [facility] CPT-4: 23150 01/17/2015 ([id number]) OFFICE/OUTPATIENT VISIT EST Diagnosis: Skin lesion[ICD9: 709.9] Xiomara HAND [facility] CPT-4: 84490 09/29/2014 OFFICE/OUTPATIENT VISIT EST Diagnosis: GASTROENTERITIS[ICD9: 558.9] Diagnosis: GERD[ICD9: 530.81] Kelsie VanPrabhakarre [facility] C[facility]: 58804 02/18/2014 ([id number]) OFFICE/OUTPATIENT VISIT EST Diagnosis: 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I, UNCONTROLLED[ICD9: 250.02] [facility] CPT-[facility]: 72106 07/29/2013 ([id number]) OFFICE/OUTPATIENT VISIT EST Diagnosis: FLU VACCINE[ICD9: V04.81] Xiomara MAGALLON [facility] CPT-4: 69440 07/22/2013 ([id number]) OFFICE/OUTPATIENT VISIT EST Diagnosis: 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I, UNCONTROLLED[ICD9: 250.02] Diagnosis: HYPERTENSION[ICD9: 401.9] Xiomara MAGALLON [facility] CPT-4: 21467 05/26/2013 ([id number]) OFFICE/OUTPATIENT VISIT EST Diagnosis: MONONEURITIS[ICD9: 355.9] Diagnosis: RESTLESS LEGS SYNDROME[ICD9: 333.94] Diagnosis: HYPERTENSION[ICD9: 401.9] Diagnosis: CAD[ICD9: 414.00] Diagnosis: Weakness[ICD9: 780.79] Xiomara [facility] CPT-4: 36471 04/28/2013 ([id number]) OFFICE/OUTPATIENT VISIT EST Diagnosis: 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[ICD9: 250.01] Diagnosis: MONONEURITIS[ICD9: 355.9] Diagnosis: HYPERLIPIDEMIA NEC/NOS[ICD9: 272.4] Diagnosis: CAD[ICD9: 414.00] Xiomara BETTENCOURT [employer] CPT-4: 05544 03/12/2013 OFFICE/OUTPATIENT VISIT NEW Diagnosis: CAD[ICD9: 414.00] Diagnosis: HYPERLIPIDEMIA NEC/NOS[ICD9: 272.4] Diagnosis: HYPERTENSION[ICD9: 401.9] Diagnosis: Neuropathy[ICD9: 355.9] Diagnosis: RESTLESS LEGS SYNDROME[ICD9: 333.94] Xiomara Gan [employer] CPT-4: 95102 03/11/2013 Plan of Care Planned Activity Notes [...] ICD-9 : 786.09 ICD-10 : R06.09 10/27/2019 Patient Education: gabapentin- OptimizeRX Coupon [phone] [email or web address]/[email or web address] Completed 10/27/2019 Visit Diagnosis Plan: DM w/o [...] : J44.9 10/20/2019 Appointment: Xiomara Bettencourt WPtel: [address] [place], [place] [phone] [place] FOLLOW UP 10/20/2019 Patient Education: furosemide- Opt[employer] Coupon [phone] [email or web address]/[email or web address] Completed 10/20/2019 Visit Diagnosis Plan: Hypotension Discussion: [...] : G47.33 10/12/2019 Appointment: Xiomara Bettencourt WPtel: [address] [place] [address] TELEMEDICINE 10/12/2019 Appointment: Xiomara Bettencourt WPtel: [address] [place] [address] US RESCHEDULED 09/23/2019 Care Plan: COMPREHEN METABOLIC PANEL SERGEI NC : 84181-9 Pending 09/20/2019 Care Plan: LIPID PANEL LOINC : 89052-0 Pending 09/20/2019 Care Plan: A1C HPLC LOINC : 25014-5 Pending 09/20/2019 Care Plan: COMPLETE CBC W/AUTO DIFF WBC LOINC : 57063-7 Pending 09/20/2019 Visit Diagnosis Plan: Upper respiratory infection Disc ussion: discussed that most likely viral. push fluids and rest through the week. patient has left over levaquin at home (5 days worth). instructed patient to start taking if he gets worse later this week and to call us next week if no improvement. ICD-9 : 465.9 ICD-10 : J06.9 06/02/2019 Appointment: Pennie Pizarro [address] [place], [place] [phone] ACUTE ILLNESS 06/02/2019 Visit Diagnosis Plan: Allergic [...] : J30.9 05/13/2019 Appointment: Pennie Pizarro [address] [place], [place] [phone] ACUTE ILLNESS 05/13/2019 Appointment: Xiomara Bettencourt WPtel: [phone] [facility] CANCELED 04/27/2019 Visit Diagnosis Plan: Pneumonia Discussion: will obtai n records from urgent care. instructed to finish out doxy. no rhonchi or crackles auscultated. symbicort sample given to patient with instructions to use bid. call office later this week with new or worsening symptoms. ICD-9 : 486 ICD-10 : J18.9 04/26/2019 Appointment: Pennie Pizarro [address] [place], [place] [phone] FOLLOW UP 04/26/2019 Visit Diagnosis Plan: Acute [...] ICD-10 : J01.90 02/22/2019 Appointment: Pennie Pizarro [address] [place], [place] [phone] ACUTE ILLNESS 02/22/2019 Patient Education: prednisone- Opt[employer]RX Coupon [phone] [email or web address]/[email or web address] Completed 02/22/2019 Visit Diagnosis Plan: Cervicalgia Discussion: Check Ce rvical Spine X-ray Will likely need PT ICD-9 : 723.1 ICD-10 : M54.2 11/25/2018 Appointment: Xiomara Bettencourt WPtel: [phone] [facility] ACUTE ILLNESS 11/25/2018 Visit Plan: Saline [...] : M79.10 11/19/2018 Appointment: Xiomara Bettencourt [facility]Ptel[facility] [facility] 11/19/2018 Patient Education: baclofen- Opt[employer] Coupon [phone] [id number] [email or web address]://www.[email or web address]/[email or web address]/resources/getResource/61/[email or web address] Completed 11/19/2018 Visit Diagnosis Plan: Essential (primary) [...] : E10.9 07/22/2018 Appointment: Xiomara Bettencourt WPtel: [facility] [place] [phone] [place] FOLLOW UP 07/22/2018 Visit Diagnosis Plan: Benign prostatic h yperplasia with lower urinary tract symptoms Discussion: Trial of flomax Call in 1 mo [facility] on how doing Follow Up: 4 months [...] : N18.1 04/21/2018 Appointment: Xiomara Bettencourt WPtel: [facility] US FOLLOW UP 04/21/2018 Patient Education: Patient [...] Follow Up: 3 months Discussion: will call [facility] for recent labs. instructed patient that we will call him later today if additional labs are needed. instructed patient to continue working on diet and exercise. will adjust medications as needed based on recent labs. ICD-9 : 250.02 ICD-10 : E11.65 01/06/2018 Appointment: Pennie Pizarro [address] [place] [address] MEDICATION REVIEW 01/06/2018 Patient Education: Patient Medication Summary Completed 01/06/2018 Appointment: Xiomara Bettencourt WPtel: [address] [place] [address] NO SHOW 01/05/2018 Appointment: Xiomara Bettencourt WPtel: [address] [place] [address] US CANCELED 12/31/2017 Visit Diagnosis Plan: Actinic keratosis Discussion: Cr yotherapy as above but will see derm if lesions do not resolve ICD-9 : 702.0 ICD-10 : L57.0 10/22/2017 Appointment: Xiomara Bettencourt WPtel: [address] [place] [address] ACUTE ILLNESS 10/22/2017 Patient Education: Patient Medication [...] : M19.90 04/22/2017 Appointment: Xiomara Bettencourt WPtel: [address] [place], [place] [address] [place] FOLLOW UP 04/22/2017 Patient Education: Patient Medication Summary Completed 04/22/2017 Patient Education: Patient Medication Summary Completed 04/16/2017 Care Plan: COMPREHEN METABOLIC PANEL SERGEI NC : 63375-5 Pending 04/16/2017 Care Plan: LIPID PANEL LOINC : 11848-3 Pending 04/16/2017 Care Plan: CBC Pending 04/16/2017 Care Plan: A1C HPLC LOINC : 12457-5 Pending 04/16/2017 Ref[facility] Inocencio [facility] [facility] [facility] Referral Appointment Confirmed 10/14/2016 Visit Diagnosis Plan: Angina pectoris, unspecified Dis cussion: Continue imdur and see cardiology To ER if chest pain returns ICD-9 : 413.9 ICD-10 : I20.9 10/10/2016 Visit Diagnosis Plan: Type 2 diabetes mellitus with hy perglycemia Discussion: Continue toujeo Accuchecks BID Follow Up: 4 months ICD-9 : 250.02 ICD-10 : E11.65 10/10/2016 Appointment: Xiomara Bettencourt WPtel: [facility] [facility] FOLLOW [facility] 10/10/2016 Patient Education: Patient Medication Summary Completed 10/10/2016 Patient Education: Patient Medication Summary Completed 09/16/2016 Care Plan: COMPREHEN METABOLIC PANEL SERGEI NC : 96358-4 Pending 09/16/2016 Care Plan: ASSAY THYROID STIM HORMONE Pen ding 09/16/2016 Care Plan: ASSAY OF FREE THYROXINE Pendin g 09/16/2016 Care Plan: LIPID PANEL LOINC : 60848-3 Pending 09/16/2016 Care Plan: CBC Pending 09/16/2016 Care Plan: A1C HPLC LOINC : 07142-7 Pending 09/16/2016 Visit Plan: CXR now to further evaluate symptoms Suspect viral since he has been on 2 rounds of antibiotics If chronic lung disease evident, 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 Sample inhaler given today with instructions on use Continue oral prednisone, would like to avoid injection if possible considering his DM status and he is stable right now Continue albuterol PRN Will call with CXR results 08/31/2015 Appointment: Shannan Grimes [address] [place] [address] 08/31 confirmed- SP ACUTE ILLNESS 08/31/2015 Patient Education: Patient Medication Summary Completed 08/31/2015 Visit Plan: Albuterol INH via SVN every 4 hours Prednisone 20 mg PO BID Notify for worsening symptoms 08/29/2015 Appointment: Kelsie Grubbs WPtel: [address] [place], [place] [phone] [place] AC[facility] ILL[facility] 08/29/2015 Patient Education: Patient Medication Summary Completed 08/29/2015 Appointment: Xiomara Bettencourt WPtel: [address] [place], [place] [phone] LAB 07/26/2015 Patient Education: Patient Medication Summary Completed 07/26/2015 Visit Plan: Return in am for fasting lab s - CBC, CMP, TSH, Free T4, HgbA1C Change Levemir to Toujeo - Continue 35 Units q am - sample given Start physical Therapy for increased quadriceps strengthening and decreased pain in knees, bilaterally. 07/24/2015 Appointment: Kelsie Grubbs WPtel: [address] [place] [address] 07/21 appt confirmed cn FOLLOW UP 07/24/19 16 Appointment: Humera Kelsie M WPtel: [address] [place] [address] [place] FOLLOW UP 07/24/2015 Patient Education: Patient [...] with insulin 05/01/2015 Appointment: Xiomara Bettencourt WPtel: [address] [place] [address] 04/28 confirmed~sl ACUTE ILLNESS 05/01/2015 Patient Education: Patient Medication Summary Completed 05/01/2015 Patient Education: Patient Medication Summary Completed 01/19/2015 Care Plan: URINALYSIS AUTO W/[place] : [id number] Pending 01/19/2015 Visit Plan: I have went [...] stress test 01/17/2015 Appointment: Xiomara Bettencourt WPtel: [address] [place] [address] 01/16 vm cn ACUTE ILLNESS 01/17/2015 Patient Education: Patient Medication Summary Completed 01/17/2015 Visit Plan: See Dr. Garvin for removal 09/29/2014 Appointment: Xiomara Bettencourt WPtel: [address] [place] [address] ACUTE ILLNESS 09/29/2014 Referral: Colt Garvin WPtel: [address] [place] [address] Referral Initiated 09/29/2014 Patient Education: Patient Medication Summary Completed 09/29/2014 Visit Plan: Check CBC, CMP, TSH, free T4 , HbA1C, Lipids Accuchecks daily alternating times Patient has been adjusting own meds and has not taken any cholesterol meds for sometime Will check into surgery on right knee at [facility] Check carotid dopplers 08/04/2014 Appointment: Xiomara Bettencourt WPtel: [address] [place] [address] Annual Well Visit 08/04/2014 Patient Education: Patient Medication Summary Completed 08/04/2014 Appointment: Kelsie Grubbs WPtel: [address] [place] [address] ACUTE ILLNESS 02/18/2014 Patient Education: Patient Medication Summary Completed 02/18/2014 Patient Education: [facility] - Saving AutoInj - 18+ - Dynamic Portal ID Completed 02/18/2014 Appointment: Xiomara Bettencourt WPtel: [address] [place] [address] LAB 09/08/2013 Visit Plan: Check fasting lab in 1mo Con tinue Lantus and accuchecks at least BID 07/29/2013 Appointment: Xiomara Bettencourt WPtel: [address] [place] [address] FOLLOW UP 07/29/2013 Patient Education: Patient Medication Summary Completed 07/29/2013 Appointment: Xiomara Bettencourt WPtel: [address] [place] [address] US INJECTION 07/22/2013 Patient Education: Patient Medication Summary Completed 07/22/2013 Visit Plan: Pt has been self-adjusting m eds Stop metformin and amaryl Use Levemir 25u sc BID and call in 1wk with BS readings 05/26/2013 Appointment: Xiomara Bettencourt WPtel: [address] [place] [address] [place] FOLLOW UP 05/26/2013 Patient Education: Patient Medication Summary Completed 05/26/2013 Visit Plan: DC Metformin Increase Lantus to 30u sc daily Change lisinopril to lisinopril HCT 20/25mg q AM Continue Gabapentin at current dose 04/28/2013 Appointment: Xiomara Bettecnourt WPtel: [address] [place], [place] [id number] FOLLOW UP 04/28/2013 Patient Education: Patient Medication Summary Completed 04/28/2013 Appointment: Xiomara Bettencourt WPtel: [address] [place], [place] [id number] [place] LAB 03/12/2013 Patient Education: Patient Medication Summary Completed 03/12/2013 Visit Plan: Trial of neurontin 400mg q H S Obtain most recent lab results Change levemir to lantus per pt request Pt goes for sleep study tonite 03/11/2013 Appointment: Xiomara Bettencourt WPtel: [facility] 02/01paperwork mailed 03/10 confirmed with spouse NEW PATIENT 11/2012 Patient Education: Patient Medication Summary Completed 03/11/2013 Instructions Comment . Saline nasal flushes prn. Tylenol/Motr in prn headache. Notify if persists/symptoms worsening. . 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 Check [...]
--- OUTSIDE RECORDS SUMMARY | 2020-02-02 21:37 | XMS REPORT | CCD ---
Author Author Sheng Bettencourt D.O. Organization [facility]ph[facility] Address [address] [place] [address] Phone Care Team Providers Care Assistant Professor Of Surgery Name Role Phone PP Unavailable CCM Unavailable Summary Purpose Interface Exchange Insurance Providers Payer name Policy type / Coverage type Covered constitution party ID Effective Begin Date Effective End Date WPS MEDICARE PART B [place] Medicare Part B [id number] 2018 Unknown [facility] Medicare Part B [id number] 2018 Un known Family history Mother Diagnosis Age At Onset Diabetes mellitus Type 2 Unknown Hypercholesterolemia Unknown Father Diagnosis Age At Onset No Family Disease Entered N/A Social History Social History Element Codes Description Effective Dates Marital status Unknown 03/11/2013 Number of children Unknown 4 03/11/2013 Employment Unknown Retired 03/11/[address]: 0068676 Former smoker 03/11/[address]: 753475 Currently drinks alc ohol Socially 03/11/2013 Has [...] Fill Instructions glimepiride 2 mg tablet RxNorm: 289598 1 Tablet(s) Oral QD 10/27/19 No Stop Date Active gabapentin 400 mg capsule RxNorm: 622121 1 Capsule(s) Oral QPM 10/0604/24/2020 Active potassium chloride ER 20 mEq tablet,extended release RxNorm: 525874 1 Tablet(s) Oral QD to take with lasix 10/20/2019 10/26/2019 Inactive furosemide 40 mg tablet RxNorm: 980323 1 Tablet(s) Oral QAM for swelling 10/20/2019 10/26/2019 Inactive albuterol sulfate HFA 90 mcg/actuation aerosol inhaler RxNor m: 1953341 1-2 Puff(s) Inhalation as needed 10/12/2019 No Stop Date Active Zyrtec 10 mg tablet RxNorm: 0817825 1 Tablet(s) Oral QAM 10/12/2019 No Stop Date Active aspirin 81 mg tablet,delayed release RxNorm: 817935 1 Tablet(s) Oral QD 10/12/2019 No Stop Date Active Symbicort 160 mcg-4.5 mcg/actuation HFA aerosol inhaler RxNo rm: 8413519 2 Puff(s) Inhalation QD 10/12/2019 No Stop Date Active lisinopril 20 mg tablet RxNorm: 842353 1 Tablet(s) Oral QD 10/12/19 20 01/10/2020 Active simvastatin 20 mg tablet RxNorm: 543898 1 Tablet(s) Ora l QD Needs updated fasting labs 09/20/2019 12/19/2019 Active Needs updated fa sting labs before 90 day refill Flomax 0.4 mg capsule RxNorm: 592393 TAKE TWO CAPSULES BY MOUTH EVERY EVENING 08/03/2019 No Stop Date Active gabapentin 400 mg capsule RxNorm: 308732 TAKE ONE CAPSU LE BY MOUTH EVERY EVENING 08/02/2019 10/26/2019 Inactive simvastatin 20 mg tablet RxNorm: 463100 1 Tablet(s) Ora l QD Needs updated fasting labs 07/21/2019 08/19/2019 Inactive Needs updated fa sting labs before 90 day refill simvastatin 20 mg tablet RxNorm: 249471 1 Tablet(s) Ora l QD Needs updated fasting labs 06/23/2019 07/20/2019 Inactive Needs updated fa sting labs before 90 day refill Flomax 0.4 mg capsule RxNorm: 358735 1 Capsule(s) Oral QD 05/13/2019 10/19/2019 Inactive Flomax 0.4 mg capsule RxNorm: 152069 TAKE TWO CAPSULES BY MOUTH EVERY EVENING 03/19/2019 05/12/2019 Inactive Augmentin 500 mg-125 mg tablet RxNorm: 076452 1 Tablet(s) PO BID 03/03/2019 Inactive baclofen 10 mg tablet RxNorm: 929365 TAKE ONE TABLET BY MOUTH EVERY NIGHT AT BEDTIME FOR PAIN OR SPASMS 01/14/2019 05/12/2019 Inactive Flomax 0.4 mg capsule RxNorm: 418832 TAKE TWO CAPSULES BY MOUTH EVERY EVENING 01/12/2019 03/18/2019 Inactive gabapentin 400 mg capsule RxNorm: 887384 1 Capsule(s) PO QPM 201806/27/2019 Inactive baclofen 10 mg tablet RxNorm: 552922 1 Tablet(s) PO QHS for my n/spasm 12/15/2018 01/13/2019 Inactive simvastatin 20 mg tablet RxNorm: 424478 TAKE ONE TABLET BY MOUT H DAILY 12/11/2018 06/22/2019 Inactive OneTouch Ultra Blue Test Strip RxNorm: Use 1 rigoberto t strip three times daily to check blood sugar (Dx:E11.65) 12/07/2018 No Stop Date Active gabapentin 400 mg capsule RxNorm: 259109 TAKE ONE CAPSU LE BY MOUTH EVERY EVENING 12/04/2018 12/29/2018 Inactive baclofen 10 mg tablet RxNorm: 084960 1 Tablet(s) PO QHS for my n/spasm 11/19/2018 12/15/2018 Inactive Flomax 0.4 mg capsule RxNorm: 854122 2 Capsule(s) PO QPM 09/15/2018 0 12/13/2018 Inactive WOULD LIKE 90DS!!! gabapentin 400 mg capsule RxNorm: 066151 TAKE ONE CAPSU LE BY MOUTH EVERY EVENING 07/21/2018 10/18/2018 Inactive simvastatin 20 mg tablet RxNorm: 552075 1 Tablet(s) PO QD 06/15/2018 12/10/2018 Inactive Flomax 0.4 mg capsule RxNorm: 812151 TAKE TWO CAPSULES BY MOUTH EVERY EVENING 06/02/2018 09/15/2018 Inactive WOULD LIKE 90DS!!! Flomax 0.4 mg capsule RxNorm: 300075 2 Capsule(s) PO QPM 04/21/2018 1 07/20/2017 Inactive simvastatin 20 mg tablet RxNorm: 602623 1 Tablet(s) PO QD Take 1 tablet by mouth daily. Patient due for labwork before further refill. 04/06/20182017 Inactive simvastatin 20 mg tablet RxNorm: 475992 Tablet(s) TAKE ONE TABLET BY MOUTH DAILY 03/25/2018 06/15/2018 Inactive simvastatin 20 mg tablet RxNorm: 195306 Tablet(s) TAKE ONE TABLET BY MOUTH DAILY due for appt 12/29/2017 03/25/2018 Inactive simvastatin 20 mg tablet RxNorm: 243037 TAKE ONE TABLET BY MOUT H DAILY 09/03/2017 12/29/2017 Inactive simvastatin 20 mg tablet RxNorm: 186435 1 Tablet(s) PO QD 10/22/2016 11/18/2018 Inactive isosorbide mononitrate ER 60 mg tablet,extended release 24 h r RxNorm: 386334 1 Tablet(s) PO QD 10/22/2016 04/21/2017 Inactive isosorbide mononitrate ER 60 mg tablet,extended release 24 h r RxNorm: 395451 1 Tablet(s) PO QD 10/10/2016 10/21/2016 Inactive simvastatin 20 mg tablet RxNorm: 963700 1 Tablet(s) PO QD 10/10/2016 10/21/2016 Inactive gabapentin 400 mg capsule RxNorm: 463885 1 Capsule(s) PO QPM 201609/20/2016 Inactive Toujeo SoloStar 300 unit/mL (1.5 mL) subcutaneous insulin pe n RxNorm: 9947940 35 Unit(s) SQ QAM 07/23/2016 07/22/2016 Inactive Toujeo SoloStar 300 unit/mL (1.5 mL) subcutaneous insulin pe n RxNorm: 8435372 40 Unit(s) SQ QAM 09/01/2015 No Stop Date Active Symbicort 160 mcg-4.5 mcg/actuation HFA aerosol inhaler RxNo rm: 0108991 2 Puff(s) INH BID 08/31/2015 09/09/2015 Inactive prednisone 20 mg tablet RxNorm: 545021 1 Tablet(s) PO BID 08/29/2015 09/02/2015 Inactive albuterol sulfate 2.5 mg/3 mL (0.083 %) solution for n ebulization RxNorm: 777297 1 Unit(s) INH Q4H as needed 08/29/2015 10/09/2016 Inactive levothyroxine 75 mcg tablet RxNorm: 338635 1 Tablet(s) PO QD 201507/27/2015 Inactive levothyroxine 75 mcg tablet RxNorm: 894846 1 Tablet(s) PO QD 201511/18/2018 Inactive levothyroxine 75 mcg tablet RxNorm: 540746 1 Tablet(s) PO QD 201507/27/2015 Inactive lisinopril 20 mg-hydrochlorothiazide 25 mg tablet RxNorm: 19 7887 TAKE ONE TABLET BY MOUTH EVERY MORNING. REPLACES PLAIN LISINOPRIL 03/06/2015 04/21/2017 Inactive lisinopril 20 mg-hydrochlorothiazide 25 mg tablet RxNorm: 19 7887 TAKE ONE TABLET BY MOUTH EVERY MORNING. REPLACES PLAIN LISINOPRIL 09/08/2014 03/05/2015 Inactive allopurinol 100 mg tablet RxNorm: 663707 1 Tablet(s) PO BID 015 10/09/2016 Inactive [SAVINGS FOR NON-COVERED YULIA GS -- BIN:[id number], PCN: [id number], Group: [id number], ID# [id number], Questions: . THIS IS NOT INSURANCE.] levothyroxine 50 mcg tablet RxNorm: 237814 1 Tablet(s) PO QD 201407/26/2015 Inactive [AttnRPh: Saving apply/adjud icate RxGRP:SG20 RxBIN:[id number] RxPCN:HT ID#:[id number]] Zegerid 40 mg-1.1 gram capsule RxNorm: 049685 1 Capsule(s) PO QD 03/03/2014 Inactive [AttnRPh: Saving apply/adjud icate RxGRP:SG20 RxBIN:[id number] RxPCN:HT ID#:[id number]] ondansetron 8 mg disintegrating tablet RxNorm: 772924 1 Tablet(s) PO Q8H as needed for [...] 07/28/2013 Inactive gabapentin 400 mg capsule RxNorm: 619980 1 Capsule(s) PO QPM 201207/28/2013 Inactive gabapentin 400 mg capsule RxNorm: 724027 1 Capsule(s) PO QPM 201206/26/2013 Inactive lisinopril 20 mg-hydrochlorothiazide 25 mg tablet RxNorm: 82 3971 1 Tablet(s) PO QAM replaces plain lisinopril 04/28/2013 07/29/2013 Inactive gabapentin 400 mg capsule RxNorm: 405742 1 Capsule(s) PO QPM 201204/27/2013 Inactive gabapentin 400 mg capsule RxNorm: 358241 1 Capsule(s) PO QPM 201203/10/2013 Inactive gabapentin 400 mg capsule RxNorm: 049714 1 Capsule(s) PO QPM 201203/14/2013 Inactive Lantus Solostar 100 unit/mL (3 mL) Sub-Q Insulin Pen RxNorm: 851045 20 Unit(s) SQ QPM 03/11/2013 03/15/2013 Inactive Toujeo SoloStar 300 unit/mL (1.5 mL) subcutaneous insulin pe n RxNorm: 7582050 35 Unit(s) SQ QAM No Start Date Active omeprazole 20 mg capsule,delayed release RxNorm: 637801 1 Capsu le(s) PO QD No Start Date Active isosorbide mononitrate ER 60 mg tablet,extended release 24 h r RxNorm: 790987 1 Tablet(s) PO QD No Start Date Active Eliquis 5 mg tablet RxNorm: 4586970 1 Tablet(s) PO BID No Start Date Active metformin 500 mg tablet RxNorm: 088945 1 Tablet(s) PO BID No Start Da te Active levothyroxine 50 mcg tablet RxNorm: 852011 1 Tablet(s) PO QD No Start Date Active Norvasc 10 mg tablet RxNorm: 965864 1 Tablet(s) PO QHS No Start Date Active Toujeo SoloStar 300 unit/mL (1.5 mL) subcutaneous insulin pe n RxNorm: 5786700 30 Unit(s) SQ QAM No Start Date Active glimepiride 4 mg tablet RxNorm: 863028 1 Tablet(s) PO QHS No Start Date 07/26/2015 Inactive allopurinol 100 mg tablet RxNorm: 785455 1 Tablet(s) PO BID No Star t Date 08/10/2014 Inactive Lantus Solostar 100 unit/mL (3 mL) subcutaneous insulin pen RxNorm: 563250 30 Unit(s) SQ QD No Start Date 08/03/2014 Inactive Levemir FlexTouch 100 unit/mL (3 mL) subcutaneous insulin pe n RxNorm: 579392 25 Unit(s) SQ QAM No Start Date 07/23/2015 Inactive Lantus 100 unit/mL Sub-Q RxNorm: 109038 30 Unit(s) SQ QHS No Start Date 05/25/2013 Inactive Lantus Solostar 100 unit/mL (3 mL) Sub-Q Insulin Pen RxNorm: 238125 20 Unit(s) SQ QPM No Start Date 03/10/2013 Inactive OneTouch Ultra Blue Test Strip RxNorm: Use 1 rigoberto t strip three times daily to check blood sugar (Dx:E11.65) No Start Date 12/06/2018 Inactive Levemir FlexTouch 100 unit/mL (3 mL) subcutaneous insulin pe n RxNorm: 526040 30- 35 Unit(s) SQ QAM No Start Date 07/23/2015 Inactive Levemir Flexpen 100 unit/mL (3 mL) solution subcutaneo us insulin pen RxNorm: 725899 20-25 Unit(s) SQ QD No Start Date 07/28/2013 Inactive lisinopril 20 mg tablet RxNorm: 346341 1 Tablet(s) PO QD No Start D ate 10/11/2019 Inactive indomethacin ER 75 mg capsule,extended release RxNorm: 92196 2 1 Capsule(s) PO QAM No Start Date 04/27/2013 Inactive indomethacin ER 75 mg capsule,extended release RxNorm: 90520 2 1 Capsule(s) PO QD No Start Date 01/16/2015 Inactive Chlortab-4 oral RxNorm: 035061 oral No Start Date 10/11/2019 Inac tive Vitamin D3 5,000 unit tablet RxNorm: 277457 1 Tablet(s) PO QD No St art Date 08/03/2014 Inactive Levemir Flexpen 100 unit/mL (3 mL) solution subcutaneo us insulin Pen RxNorm: 062835 20 Unit(s) SQ QHS No Start Date 03/10/2013 Inactive Vytorin 10 mg-40 mg tablet RxNorm: 2240321 1/2 Tablet(s) PO QD No S tart Date 04/20/2018 Inactive oxymetazoline-menthol 0.05 % nasal spray RxNorm: 9789170 [place] COTY No Start Date 10/11/2019 Inactive Patient states he ta kes every 10 hours Toujeo SoloStar 300 unit/mL (1.5 mL) subcutaneous insulin pe n RxNorm: 9532051 35 Unit(s) SQ QAM No Start Date 07/22/2016 Inactive Lantus Solostar 100 unit/mL (3 mL) subcutaneous insulin pen RxNorm: 028468 20 Unit(s) SQ QD No Start Date 08/03/2014 Inactive aspirin 81 mg tablet RxNorm: 660936 1 Tablet(s) PO QD No Start Date 0 08/03/2014 Inactive metformin 500 mg tablet RxNorm: 926258 1 Tablet(s) PO BID No Start Date 07/28/2013 Inactive glimepiride 4 mg tablet RxNorm: 687842 1 Tablet(s) PO BID No Start Date 01/16/2015 Inactive glimepiride 4 mg tablet RxNorm: 324732 1 Tablet(s) PO QD No Start D ate 08/03/2014 Inactive levothyroxine 25 mcg tablet RxNorm: 942402 1 Tablet(s) PO QD No Sta rt Date 08/10/2014 Inactive doxycycline oral RxNorm: 03209 oral No Start Date 05/12/2019 Inac tive aspirin 81 mg tablet RxNorm: 651724 1 Tablet(s) PO QD No Start Date 0 07/21/2018 Inactive isosorbide mononitrate ER 60 mg tablet,extended release 24 h r RxNorm: 200978 1 Tablet(s) PO BID No Start Date 01/16/2015 Inactive metformin 500 mg tablet RxNorm: 067946 1 Tablet(s) PO BID No Start Date 04/27/2013 Inactive Plavix 75 mg tablet RxNorm: 110554 1 Tablet(s) PO QD No Start Date Inactive glimepiride 4 mg tablet RxNorm: 738169 1 Tablet(s) PO QPM No Start Date 02/21/2019 Inactive Vytorin 10-40 10 mg-40 mg tablet RxNorm: 9932776 1 Tablet(s) PO QHS No Start Date 08/03/2014 Inactive indomethacin 50 mg capsule RxNorm: 860703 1 Capsule(s) PO QHS No St art Date 01/16/2015 Inactive glimepiride 4 mg tablet RxNorm: 244031 1 Tablet(s) PO BID No Start Date 07/28/2013 Inactive Levemir FlexTouch 100 unit/mL (3 mL) subcutaneous insulin pe n RxNorm: 892990 20 Unit(s) SQ QD No Start Date 04/30/2015 Inactive lisinopril 20 mg tablet RxNorm: 785170 1 Tablet(s) PO BID No Start Date 04/27/2013 Inactive Venita Hopkinsar SubQ RxNorm: Subcutaneous No Start Date 03/15/2013 I nactive Zantac 150 mg tablet RxNorm: 911622 1 Tablet(s) PO QHS No Start Date 10/11/2019 Inactive allopurinol 300 mg tablet RxNorm: 568482 1 Tablet(s) PO QD No Start Date 08/03/2014 Inactive Fish Oil 1,000 mg capsule RxNorm: 1 Capsule(s) PO QD No Start Date 02/21/2019 Inactive indomethacin 50 mg capsule RxNorm: 616916 1 Capsule(s) PO BID No St art Date 04/20/2018 Inactive levothyroxine 50 mcg tablet RxNorm: 656073 1 Tablet(s) PO QD No Sta rt Date 08/10/2014 Inactive glimepiride 4 mg tablet RxNorm: 839848 1 Tablet(s) PO BID No Start Date 03/15/2013 Inactive indomethacin 50 mg capsule RxNorm: 547145 1 Capsule(s) PO QHS No St art Date 04/27/2013 Inactive Medication Administered No Medication Administered data Immunizations Vaccine Codes Date Status Influenza CVX: 135 04/21/2018 Complete Influenza CVX: 135 04/22/2017 Complete Results Observation Observation Code Item Item Code Result Date S ervice Location [facility] 12617 Cholesterol 209 mg/dL 09/17/2016 Unkno wn [facility] 31716 Triglyceride 111 mg/dL 09/17/2016 Unkn own [facility] 33161 HDL CHOLESTEROL 50 mg/dL 09/17/2016 U nknown [facility] 03512 Chol/HDL Ratio 4.18 ratio 09/17/2016 U nknown [facility] 98997 NON-HDL Chol 159 mg/dL 09/17/2016 Unkn own [facility] 99821 LDL Cholesterol 137 mg/dL 09/17/2016 U nknown MEAN GLUC 8210937 Calc Mean Gluc 151 mg/dL 09/17/2016 Unkn own COMPREHENSIVE METABOLIC 08331 AST 23 U/L 2016 Unknown COMPREHENSIVE METABOLIC 56350 ALT 19 U/L 2016 Unknown [facility] 83542 BUN 15 mg/dL 2016 Unknown COMPREHENSIVE METABOLIC 78026 ALBUMIN 4.3 g/dL 2016 Unknown COMPREHENSIVE METABOLIC 28804 CHLORIDE 103 mmol/L 09/17 Unknown COMPREHENSIVE METABOLIC 87392 Bili Total 0.6 mg/dL 09/17 Unknown COMPREHENSIVE METABOLIC 58067 ALK PHOS 60 U/L 2016 Unknown COMPREHENSIVE METABOLIC 65489 SODIUM 140 mmol/L 09/17 Unknown COMPREHENSIVE METABOLIC 32306 CREATININE 1.03 mg/dL 09/04 Unknown COMPREHENSIVE METABOLIC 34467 CALCIUM 9.5 mg/dL 2016 Unknown COMPREHENSIVE METABOLIC 20433 POTASSIUM 3.9 mmol/L 09/17 Unknown COMPREHENSIVE METABOLIC 50224 Total Protein 6.9 g/dL Unknown COMPREHENSIVE METABOLIC 45509 Glucose 94 mg/dL 2016 Unknown COMPREHENSIVE METABOLIC 07343 Bicarbonate 28 mmol/L 09/04 Unknown COMPREHENSIVE METABOLIC 00130 AGAP 9 mmol/L 2016 Unknown GFR CALC 3604565 GFR Non Afr Amr >60 mL/min 09/17/2016 Un known GFR CALC 8851545 GFR Afr Amr >60 mL/min 09/17/2016 Unknow n THYROID STIMULATING HORMONE 40126 TSH 4.260 uIU/mL 09/17/2016 Unknown GLYCOSYLATED HEMOGLOBIN TEST 53359 Hgb A1c 94715-0 6.9 % 0 09/17/2016 Unknown FREE T4 67237 T4 Free 1.02 ng/dL 09/17/2016 Unknown COMPLETE BLOOD COUNT 7843914 WBC 8.6 10e9/L 07/26/19 16 Unknown COMPLETE BLOOD COUNT [id number] RBC 4.86 10e12/L 2015 Unknown COMPLETE BLOOD COUNT [id number] HGB 14.6 g/dL 6 Unknown COMPLETE BLOOD COUNT 1310008 HCT DET 43.1 % 6 Unknown COMPLETE BLOOD COUNT 4180903 MCV 88.7 fL 6 Unknown COMPLETE BLOOD COUNT 9355228 MCH 30.0 pg 6 Unknown COMPLETE BLOOD COUNT 5893281 MCHC 33.9 g/dL 6 Unknown COMPLETE BLOOD COUNT 0805318 PLT 267 10e9/L 07/26/19 16 Unknown COMPLETE BLOOD COUNT 9156230 MPV 11.5 fL 6 Unknown COMPLETE BLOOD COUNT 9953988 SAM % 64.8 % 6 Unknown COMPLETE BLOOD COUNT 3411006 LY % 16.8 % 6 Unknown COMPLETE BLOOD COUNT 5560201 MON % 12.5 % 6 Unknown COMPLETE BLOOD COUNT [id number] EOS % 5.6 % 6 Unknown COMPLETE BLOOD COUNT 3060678 BASO % 0.3 % 6 Unknown COMPLETE BLOOD COUNT 4462534 RDW 13.4 % 6 Unknown COMPLETE BLOOD COUNT [id number] ABS SAM 5.57 10e9/L 016 Unknown COMPLETE BLOOD COUNT 3844006 ABS LYMPH 1.44 10e9/L 016 Unknown COMPLETE BLOOD COUNT [id number] ABS MONO 1.08 10e9/L 016 Unknown COMPLETE BLOOD COUNT 6000192 ABS EOS 0.48 10e9/L 016 Unknown COMPLETE BLOOD COUNT [id number] ABS BASO 0.03 10e9/L 016 Unknown COMPLETE BLOOD COUNT 8465152 RDW-SD 42.9 fL 6 Unknown PSA EQUIMOLAR MATT 48014 PSA EQ 0.78 NG/ML 6 Unknown THYROID STIMULATING HORMONE 42861 TSH 5.292 uIU/ML 07/26/2015 Unknown GLYCOSYLATED HEMOGLOBIN TEST 78045 A1C HPLC 97054-0 7.0 % 0 07/26/2015 Unknown GFR CALC 8597725 GFR AA >60 ML/MIN 07/26/2015 Unknown GFR CALC 8250763 GFR NON-AA >60 ML/MIN 07/26/2015 Unknown [facility] 55418 HDL TEST 64 MG/DL 07/26/2015 Unknown [facility] 78492 TRIG 58 MG/DL 07/26/2015 Unknown [facility] 31712 TEST LDL 49 MG/DL 07/26/2015 Unknown [facility] 44001 CHOL 125 MG/DL 07/26/2015 Unknown [facility] 55413 RCHOL/HDL 1.95 RATIO 07/26/2015 Unknow n [facility] 53494 NON-HDL CH 61 MG/DL 07/26/2015 Unknow n COMPREHENSIVE METABOLIC 88308 AST 25 U/L 2015 Unknown COMPREHENSIVE METABOLIC 72311 ALT 23 IU/L 2015 Unknown COMPREHENSIVE METABOLIC 47672 BUN 18 MG/DL 2015 Unknown COMPREHENSIVE METABOLIC 35456 ALBUMIN 4.6 GM/DL 2015 Unknown COMPREHENSIVE METABOLIC 01430 CHLORIDE 100 MMOL/L 07/26 Unknown COMPREHENSIVE METABOLIC 64202 BILI TOT 0.5 MG/DL 2015 Unknown COMPREHENSIVE METABOLIC 54899 ALK PHOS 49 U/L 2015 Unknown COMPREHENSIVE METABOLIC 47901 SODIUM 137 MMOL/L 07/26 Unknown COMPREHENSIVE METABOLIC 39754 CREATININE 1.06 MG/DL 07/08 Unknown COMPREHENSIVE METABOLIC 87012 CALCIUM 9.5 MG/DL 2015 Unknown COMPREHENSIVE METABOLIC 11843 POTASSIUM 4.5 MMOL/L 07/26 Unknown COMPREHENSIVE METABOLIC 03651 PROT TOT 6.5 GM/DL 2015 Unknown COMPREHENSIVE METABOLIC 74481 Glucose 109 MG/DL 2015 Unknown COMPREHENSIVE METABOLIC 65272 BICARB 29 MMOL/L 2015 Unknown COMPREHENSIVE METABOLIC 20806 ANION GAP 8 MEQ/L 2015 Unknown FREE T4 85602 FREE T4 1.11 NG/DL 07/26/2015 Unknown CULTURE & SENSITIVITY 06817 PROTEIN UR NEG 015 Unknown CULTURE & SENSITIVITY 06385 HEMGLBN UR TR 015 Unknown CULTURE & SENSITIVITY 13554 GLUCOSE UR NEG 015 Unknown CULTURE & SENSITIVITY 17932 KETONES UR NEG 015 Unknown CULTURE & SENSITIVITY 39812 PH U 6.5 01/25/20 15 Unknown CULTURE & SENSITIVITY 37749 SP GR U 1.013 01/25/20 15 Unknown CULTURE & SENSITIVITY 31125 BILRUBN UR NEG 015 Unknown CULTURE & SENSITIVITY 36039 LEUKO UR NEG 01/25/20 15 Unknown CULTURE & SENSITIVITY 44603 NITRITE UR NEG 015 Unknown MICR CUL? [id number] SP TO JOHANA? NO 01/24/2015 Unknown MICR CUL? 1660363 APPEAR UR NORMAL 01/24/2015 Unknown MICR CUL? 3746527 RBC/uL 2.2 01/24/2015 Unknown MICR CUL? 3842075 WBC/uL 2.8 01/24/2015 Unknown MICR CUL? 1460358 SQ EPI/uL 1.0 01/24/2015 Unknown MICR CUL? 8291669 HYALCST/uL 0.25 01/24/2015 Unknown MICR CUL? 4144044 WBC /HPF 1 01/24/2015 Unknown MICR CUL? 4894898 RBC /HPF 0 01/24/2015 Unknown GLYCOSYLATED HEMOGLOBIN TEST 36222 A1C HPLC 77298-7 6.6 % 0 01/17/2015 Unknown COMPLETE BLOOD COUNT 2409843 WBC 10.1 10e9/L 015 Unknown COMPLETE BLOOD COUNT [id number] RBC 4.60 10e12/L 2014 Unknown COMPLETE BLOOD COUNT 2569776 HGB 14.0 g/dL 5 Unknown COMPLETE BLOOD COUNT 1798627 HCT DET 39.9 % 5 Unknown COMPLETE BLOOD COUNT 8151320 MCV 86.7 fL 5 Unknown COMPLETE BLOOD COUNT 4584213 MCH 30.4 pg 5 Unknown COMPLETE BLOOD COUNT 2671892 MCHC 35.1 g/dL 5 Unknown COMPLETE BLOOD COUNT 6783644 PLT 252 10e9/L 01/18/20 15 Unknown COMPLETE BLOOD COUNT [id number] MPV 11.4 fL 5 Unknown COMPLETE BLOOD COUNT 2503399 SAM % 72.9 % 5 Unknown COMPLETE BLOOD COUNT 3976747 LY % 13.6 % 5 Unknown COMPLETE BLOOD COUNT 8480803 MON % 10.2 % 5 Unknown COMPLETE BLOOD COUNT 6025726 EOS % 3.1 % 5 Unknown COMPLETE BLOOD COUNT 6783924 BASO % 0.2 % 5 Unknown COMPLETE BLOOD COUNT 3790126 RDW 13.6 % 5 Unknown COMPLETE BLOOD COUNT 5507177 ABS SAM 7.36 10e9/L 015 Unknown COMPLETE BLOOD COUNT 9209511 ABS LYMPH 1.37 10e9/L 015 Unknown COMPLETE BLOOD COUNT 3329240 ABS MONO 1.03 10e9/L 015 Unknown COMPLETE BLOOD COUNT 3751816 ABS EOS 0.31 10e9/L 015 Unknown COMPLETE BLOOD COUNT 7293373 ABS BASO 0.02 10e9/L 015 Unknown COMPLETE BLOOD COUNT 4280125 RDW-SD 42.4 fL 5 Unknown GFR CALC 1751911 GFR AA 51.0L ML/MIN 01/17/2015 Unknow n GFR CALC 3140188 GFR NON-AA 42.0L ML/MIN 01/17/2015 Unkno wn FREE T4 62195 FREE T4 1.30 NG/DL 01/17/2015 Unknown THYROID STIMULATING HORMONE 59751 TSH 4.029 uIU/ML 01/17/2015 Unknown COMPREHENSIVE METABOLIC 01896 AST 28 U/L 2014 Unknown COMPREHENSIVE METABOLIC 05007 ALT 25 IU/L 2014 Unknown COMPREHENSIVE METABOLIC 94305 BUN 21 MG/DL 2014 Unknown COMPREHENSIVE METABOLIC 95415 ALBUMIN 4.7 GM/DL 2014 Unknown COMPREHENSIVE METABOLIC 36554 CHLORIDE 102 MMOL/L 01/17 Unknown COMPREHENSIVE METABOLIC 91001 BILI TOT 0.6 MG/DL 2014 Unknown COMPREHENSIVE METABOLIC 89052 ALK PHOS 44 U/L 2014 Unknown COMPREHENSIVE METABOLIC 48654 SODIUM 137 MMOL/L 01/17 Unknown COMPREHENSIVE METABOLIC 03277 CREATININE 1.62 MG/DL 01/04 Unknown COMPREHENSIVE METABOLIC 43955 CALCIUM 9.7 MG/DL 2014 Unknown COMPREHENSIVE METABOLIC 44730 POTASSIUM 4.5 MMOL/L 01/17 Unknown COMPREHENSIVE METABOLIC 75986 PROT TOT 6.5 GM/DL 2014 Unknown COMPREHENSIVE METABOLIC 19706 Glucose 136 MG/DL 2014 Unknown COMPREHENSIVE METABOLIC 28964 BICARB 24 MMOL/L 2014 Unknown COMPREHENSIVE METABOLIC 63603 ANION GAP 11 MEQ/L 2014 Unknown VITAMIN B 12 65813 VIT B 12 482 PG/ML 01/17/2015 Unknow n URIC ACID 75030 URIC ACID 8.5 MG/DL 08/09/2014 Unknown COMPREHENSIVE METABOLIC 85834 AST 27 U/L 2014 Unknown COMPREHENSIVE METABOLIC 49821 ALT 26 IU/L 2014 Unknown COMPREHENSIVE METABOLIC 42537 BUN 17 MG/DL 2014 Unknown COMPREHENSIVE METABOLIC 73595 ALBUMIN 5.0 GM/DL 2014 Unknown COMPREHENSIVE METABOLIC 27350 CHLORIDE 101 MMOL/L 08/09 Unknown COMPREHENSIVE METABOLIC 93578 BILI TOT 0.7 MG/DL 2014 Unknown COMPREHENSIVE METABOLIC 30114 ALK PHOS 53 U/L 2014 Unknown COMPREHENSIVE METABOLIC 09482 SODIUM 136 MMOL/L 08/09 Unknown COMPREHENSIVE METABOLIC 74331 CREATININE 1.14 MG/DL 09/2014 Unknown COMPREHENSIVE METABOLIC 69355 CALCIUM 9.8 MG/DL 2014 Unknown COMPREHENSIVE METABOLIC 86758 POTASSIUM 4.1 MMOL/L 08/09 Unknown COMPREHENSIVE METABOLIC 31170 PROT TOT 7.5 GM/DL 2014 Unknown COMPREHENSIVE METABOLIC 52230 Glucose 110 MG/DL 2014 Unknown COMPREHENSIVE METABOLIC 77154 BICARB 30 MMOL/L 2014 Unknown COMPREHENSIVE METABOLIC 76898 ANION GAP 5 MEQ/L 2014 Unknown GFR CALC 6143399 GFR AA >60 ML/MIN 08/09/2014 Unknown GFR CALC 0343323 GFR NON-AA >60 ML/MIN 08/09/2014 Unknown FREE T4 46199 FREE T4 1.14 NG/DL 08/09/2014 Unknown GLYCOSYLATED HEMOGLOBIN TEST 51055 A1C HPLC 16068-5 6.8 % 0 08/09/2014 Unknown COMPLETE BLOOD COUNT [id number] WBC 5.9 10e9/L 08/09/19 15 Unknown COMPLETE BLOOD COUNT 3285395 RBC 5.04 10e12/L 2014 Unknown COMPLETE BLOOD COUNT 9366323 HGB 15.2 g/dL 5 Unknown COMPLETE BLOOD COUNT 6378681 HCT DET 44.3 % 5 Unknown COMPLETE BLOOD COUNT 4808159 MCV 87.9 fL 5 Unknown COMPLETE BLOOD COUNT [id number] MCH 30.2 pg 5 Unknown COMPLETE BLOOD COUNT [id number] MCHC 34.3 g/dL 5 Unknown COMPLETE BLOOD COUNT [id number] PLT 262 10e9/L 08/09/19 15 Unknown COMPLETE BLOOD COUNT [id number] MPV 10.9 fL 5 Unknown COMPLETE BLOOD COUNT [id number] SAM % 58.7 % 5 Unknown COMPLETE BLOOD COUNT [id number] LY % 21.5 % 5 Unknown COMPLETE BLOOD COUNT [id number] MON % 14.0 % 5 Unknown COMPLETE BLOOD COUNT [id number] EOS % 5.3 % 5 Unknown COMPLETE BLOOD COUNT [id number] BASO % 0.5 % 5 Unknown COMPLETE BLOOD COUNT [id number] RDW 13.1 % 5 Unknown COMPLETE BLOOD COUNT [id number] ABS SAM 3.46 10e9/L 015 Unknown COMPLETE BLOOD COUNT [id number] ABS LYMPH 1.27 10e9/L 015 Unknown COMPLETE BLOOD COUNT [id number] ABS MONO 0.83 10e9/L 015 Unknown COMPLETE BLOOD COUNT [id number] ABS EOS 0.31 10e9/L 015 Unknown COMPLETE BLOOD COUNT [id number] ABS BASO 0.03 10e9/L 015 Unknown COMPLETE BLOOD COUNT [id number] RDW-SD 41.2 fL 5 Unknown THYROID STIMULATING HORMONE 16420 TSH 5.395 uIU/ML 08/09/2014 Unknown LIPID GROUP [id number] HDL TEST 52 MG/DL 08/09/2014 Unknown LIPID GROUP [id number] TRIG 113 MG/DL 08/09/2014 Unknown LIPID GROUP [id number] TEST LDL 158 MG/DL 08/09/2014 Unknown LIPID GROUP 18870 CHOL 233 MG/DL 08/09/2014 Unknown L[facility] GROUP 94745 RCHOL/HDL 4.48 RATIO 08/09/2014 Unknow n LIPID GROUP 08861 NON-HDL CH 181 MG/DL 08/09/2014 Unknow n COMPLETE BLOOD COUNT [id number] WBC 6.8 10e9/L 09/09/19 14 Unknown COMPLETE BLOOD COUNT [id number] RBC 5.18 10e12/L 2013 Unknown COMPLETE BLOOD COUNT [id number] HGB 15.2 g/dL 4 Unknown COMPLETE BLOOD COUNT [id number] HCT DET 44.7 % 4 Unknown COMPLETE BLOOD COUNT [id number] MCV 86.3 fL 4 Unknown COMPLETE BLOOD COUNT [id number] MCH 29.3 pg 4 Unknown COMPLETE BLOOD COUNT [id number] MCHC 34.0 g/dL 4 Unknown COMPLETE BLOOD COUNT [id number] PLT 236 10e9/L 09/09/19 14 Unknown COMPLETE BLOOD COUNT [id number] MPV 11.0 fL 4 Unknown COMPLETE BLOOD COUNT [id number] SAM % 58.2 % 4 Unknown COMPLETE BLOOD COUNT [id number] LY % 21.9 % 4 Unknown COMPLETE BLOOD COUNT [id number] MON % 12.5 % 4 Unknown COMPLETE BLOOD COUNT [id number] EOS % 7.3 % 4 Unknown COMPLETE BLOOD COUNT [id number] BASO % 0.1 % 4 Unknown COMPLETE BLOOD COUNT [id number] RDW 13.6 % 4 Unknown COMPLETE BLOOD COUNT [id number] ABS SAM 3.96 10e9/L 014 Unknown COMPLETE BLOOD COUNT [id number] ABS LYMPH 1.49 10e9/L 014 Unknown COMPLETE BLOOD COUNT [id number] ABS MONO 0.85 10e9/L 014 Unknown COMPLETE BLOOD COUNT [id number] ABS EOS 0.50 10e9/L 014 Unknown COMPLETE BLOOD COUNT [id number] ABS BASO 0.01 10e9/L 014 Unknown COMPLETE BLOOD COUNT [id number] RDW-SD 42.3 fL 4 Unknown COMPREHENSIVE METABOLIC 46819 AST 27 U/L 2013 Unknown COMPREHENSIVE METABOLIC 72403 ALT 30 IU/L 2013 Unknown COMPREHENSIVE METABOLIC 37463 BUN 16 MG/DL 2013 Unknown COMPREHENSIVE METABOLIC 15776 ALBUMIN 4.9 GM/DL 2013 Unknown COMPREHENSIVE METABOLIC 36282 CHLORIDE 99 MMOL/L 2013 Unknown COMPREHENSIVE METABOLIC 17181 BILI TOT 0.7 MG/DL 2013 Unknown COMPREHENSIVE METABOLIC 24066 ALK PHOS 53 U/L 2013 Unknown COMPREHENSIVE METABOLIC 44343 SODIUM 137 MMOL/L 09/08 Unknown COMPREHENSIVE METABOLIC 14719 CREATININE 1.01 MG/DL 11/2013 Unknown COMPREHENSIVE METABOLIC 60567 CALCIUM 10.0 MG/DL 09/08 Unknown COMPREHENSIVE METABOLIC 67897 POTASSIUM 4.4 MMOL/L 09/08 Unknown COMPREHENSIVE METABOLIC 49909 PROT TOT 7.1 GM/DL 2013 Unknown COMPREHENSIVE METABOLIC 49168 Glucose 148 MG/DL 2013 Unknown COMPREHENSIVE METABOLIC 49080 BICARB 30 MMOL/L 2013 Unknown COMPREHENSIVE METABOLIC 42647 ANION GAP 8 MEQ/L 2013 Unknown GFR CALC 8528343 GFR AA >60 ML/MIN 09/08/2013 Unknown GFR CALC 4558555 GFR NON-AA >60 ML/MIN 09/08/2013 Unknown FREE T4 64313 FREE T4 1.08 NG/DL 09/08/2013 Unknown GLYCOSYLATED HEMOGLOBIN TEST 67832 A1C HPLC 38627-7 7.3 % 0 09/08/2013 Unknown THYROID STIMULATING HORMONE 05968 TSH 5.454 uIU/ML 09/08/2013 Unknown LIPID GROUP 38515 HDL TEST 59 MG/DL 09/08/2013 Unknown LIPID GROUP 65221 TRIG 92 MG/DL 09/08/2013 Unknown LIPID GROUP 96715 TEST LDL 83 MG/DL 09/08/2013 Unknown LIPID GROUP 74157 CHOL 160 MG/DL 09/08/2013 Unknown LIPID GROUP 70554 RCHOL/HDL 2.71 RATIO 09/08/2013 Unknow n VITAMIN B 12 FOLIC ACID 77759|39005 VIT B 12 467 PG/ML 12/2012 Unknown VITAMIN B 12 FOLIC ACID 59742|79208 FOLIC ACID 12.2 NG/ML Unknown VITAMIN B 12 FOLIC ACID 25820|45618 VIT B 12 467 PG/ML 12/2012 Unknown THYROID STIMULATING HORMONE 90644 TSH 4.557 uIU/ML 03/12/2013 Unknown HEMOGLOBIN A1C (GLYCOSYLATED) 2435275 A1C HPLC 90522-9 7.6 % 03/12/2013 Unknown VITAMIN D TOTAL (25 HYDROXY) 09205 VIT D TOTL 17 NG/ML 03/12/2013 Unknown FREE T4 53665 FREE T4 1.07 NG/DL 03/12/2013 Unknown URIC ACID 00206 URIC ACID 5.2 MG/DL 03/12/2013 Unknown Procedures Procedure Codes Date THER/PROPH/DIAG INJ SC/IM CPT-4: 99497 05/13/2019 TRIAMCINOLONE ACET INJ NOS CPT-4: J3301 05/13/2019 DEXAMETHASONE SODIUM PHOS CPT-4: J1100 05/13/2019 THER/PROPH/DIAG INJ SC/IM CPT-4: 33000 02/22/2019 TRIAMCINOLONE ACET INJ NOS CPT-4: J3301 02/22/2019 FLU VACC PRSV FREE INC ANTIG 65 AND OLDER CPT-4: 99536 04/21/2018 ADMIN INFLUENZA VIRUS VAC CPT-4: G0008 04/21/2018 PRESCRIP TRANSMIT VIA ERX SY CPT-4: G8553 04/21/2018 DESTRUCT PREMALG LESION (Cryosurgery) CPT-4: 53085 FLU VACC PRSV FREE INC ANTIG 65 AND OLDER CPT-4: 75164 04/22/2017 ADMIN INFLUENZA VIRUS VAC CPT-4: G0008 04/22/2017 PRESCRIP TRANSMIT VIA ERX SY CPT-4: G8553 10/10/2016 PRESCRIP TRANSMIT VIA ERX SY CPT-4: G8553 08/29/2015 ROUTINE VENIPUNCTURE CPT-4: 85608 07/26/2015 ASSAY OF FREE THYROXINE CPT-4: 09940 07/26/2015 ASSAY THYROID STIM HORMONE CPT-4: 46474 07/26/2015 COMPREHEN METABOLIC PANEL CPT-4: 61995 07/26/2015 COMPLETE CBC W/AUTO DIFF WBC CPT-4: 46683 07/26/2015 LIPID PANEL CPT-4: 53747 07/26/2015 ASSAY OF PSA TOTAL CPT-4: 05234 07/26/2015 A1C HPLC CPT-4: 57630 07/26/2015 ROUTINE VENIPUNCTURE CPT-4: 41351 01/17/2015 ASSAY OF FREE THYROXINE CPT-4: 52340 01/17/2015 ASSAY THYROID STIM HORMONE CPT-4: 90070 01/17/2015 COMPREHEN METABOLIC PANEL CPT-4: 15379 01/17/2015 COMPLETE CBC W/AUTO DIFF WBC CPT-4: 53918 01/17/2015 A1C HPLC CPT-4: 66308 01/17/2015 VITAMIN B-12 CPT-4: 32225 01/17/2015 PPPS, subseq visit CPT-4: G0439 08/04/2014 PRESCRIP TRANSMIT VIA ERX SY CPT-4: G8553 02/18/2014 FLUZONE, 5ML (Medicare) CPT-4: Q2038 07/22/2013 ADMIN INFLUENZA VIRUS VAC CPT-4: G0008 07/22/2013 PRESCRIP TRANSMIT VIA ERX SY CPT-4: G8553 04/28/2013 ROUTINE VENIPUNCTURE CPT-4: 61651 03/12/2013 VITAMIN D TOTAL (25 HYDROXY) CPT-4: 42238 03/12/2013 VITAMIN B 12 FOLIC ACID CPT-4: 62694|44617 03/12/2013 A1C GLYCOSYLATED HEMOGLOBIN TEST CPT-4: 96269 013 ASSAY OF BLOOD/URIC ACID CPT-4: 69758 03/12/2013 ASSAY OF FREE THYROXINE CPT-4: 33139 03/12/2013 ASSAY THYROID STIM HORMONE CPT-4: 86353 03/12/2013 CUR TOBACCO NON-USER CPT-4: G8457 03/11/2013 [...] 1: 156/70 Code: 8480-6 BMI: 35.0 Code: 13704-5 Heart Rate 1: 68 bpm Height: 5'10" Respiratory Rate: 20 bpm SpO2: 95% Tempera ture: 36.5 (C) / 97.7 (F) Weight: 244 lbs 04/21/2018 Blood Pressure 1: 124/80 Code: 8480-6 BMI: 34.4 Code: 46654-7 Heart Rate 1: 80 bpm Height: 5'10" Respiratory Rate: 20 bpm SpO2: 96% Tempera ture: 37.0 (C) / 98.6 (F) Weight: 240 lbs 01/06/2018 Blood Pressure 1: 138/82 Code: 8480-6 BMI: 33.9 Code: 56110-9 Heart Rate 1: 96 bpm Height: 5'10" Respiratory Rate: 24 bpm SpO2: 98% Tempera ture: 35.9 (C) / 96.6 (F) Weight: 236 lbs 10/22/2017 Blood Pressure 1: 144/70 Code: 8480-6 BMI: 34.7 Code: 60699-3 Heart Rate 1: 72 bpm Height: 5'10" Respiratory Rate: 20 bpm SpO2: 96% Tempera ture: 36.9 (C) / 98.4 (F) Weight: 242 lbs 04/22/2017 Blood Pressure 1: 146/82 Code: 8480-6 BMI: 32.9 Code: 82456-9 Heart Rate 1: 104 bpm Height: 5'10" Respiratory Rate: 20 bpm SpO2: 95% Tempera ture: 36.9 (C) / 98.5 (F) Weight: 229 lbs 10/10/2016 Blood Pressure 1: 124/64 Code: 8480-6 BMI: 32.9 Code: 71501-1 Heart Rate 1: 64 bpm Height: 5'10" [...] 1: 146/90 Code: 8480-6 BMI: 34.1 Code: 10719-8 Heart Rate 1: 80 bpm Height: 5'10" Respiratory Rate: 20 bpm Temperature: 36 .8 (C) / 98.2 (F) Weight: 238 lbs 01/17/2015 Blood Pressure 1: 116/60 Code: 8480-6 BMI: 32.7 Code: 05866-4 Heart Rate 1: 84 bpm Height: 5'10" Respiratory Rate: 20 bpm Temperature: 36 .7 (C) / 98.0 (F) Weight: 228 lbs 09/29/2014 Blood Pressure 1: 136/78 Code: 8480-6 BMI: 33.9 Code: 76913-8 Heart Rate 1: 80 bpm Height: 5'10" Respiratory Rate: 20 bpm Temperature: 36 .6 (C) / 97.9 (F) Weight: 236 lbs 08/04/2014 Blood Pressure 1: 132/70 Code: 8480-6 BMI: 32.9 Code: 21812-3 Heart Rate 1: 72 bpm Height: 5'10" Respiratory Rate: 20 bpm Temperature: 36 .7 (C) / 98.0 (F) Weight: 229 lbs 02/18/2014 Blood Pressure 1: 124/82 Code: 8480-6 Heart Rate 1: 82 bpm Respiratory Rate: 18 bpm Temperature: 36.4 (C) / 97.5 (F) Weight: 232 lbs 07/29/2013 Blood Pressure 1: 146/80 Code: 8480-6 BMI: 34.1 Code: 99896-4 Heart Rate 1: 64 bpm Height: 5'10" Respiratory Rate: 20 bpm Temperature: 36 .9 (C) / 98.5 (F) Weight: 238 lbs 05/26/2013 Blood Pressure 1: 142/90 Code: 8480-6 BMI: 34.0 Code: 10544-4 Heart Rate 1: 84 bpm Height: 5'10" Respiratory Rate: 20 bpm Temperature: 36 .7 (C) / 98.0 (F) Weight: 237 lbs 04/28/2013 Blood Pressure 1: 118/78 Code: 8480-6 BMI: 32.9 Code: 79789-2 Heart Rate 1: 74 bpm Height: 5'10" Respiratory Rate: 20 bpm Temperature: 36 .1 (C) / 97.0 (F) Weight: 229 lbs 03/11/2013 Blood Pressure 1: 146/80 Code: 8480-6 BMI: 31.5 Code: 98909-1 Heart Rate 1: 80 bpm Height: 6' [...] and respiratory abnormality[ICD10: R06.09] Xiomara BETTENCOURT DO [facility] CPT-4: 59641 10/27/2019 ([id number]) OFFICE/OUTPATIENT VISIT EST Diagnosis: Chronic obstructive pulmonary disease, unspecified[ICD10: J44.9] Diagnosis: DM w/o complication type II, uncontrolled[ICD10: E11.65] Diagnosis: Edema[ICD10: R60.9] Xiomara BETTENCOURT [facility] CPT-4: 91937 10/20/2019 ([id number]) OFFICE/OUTPATIENT VISIT EST Diagnosis: Other dyspnea and respiratory abnormality[ICD10: R06.09] Diagnosis: Obstructive sleep apnea[ICD10: G47.33] Diagnosis: Hypotension[ICD10: I95.9] Xiomara Bettencourt [facility] CPT -4: 07620 10/12/2019 ([id number]) OFFICE/OUTPATIENT VISIT EST Diagnosis: Upper respiratory infection[ICD10: J06.9] Pennie BETTENCOURT [facility] CPT-4: 53607 06/02/2019 ([id number]) OFFICE/OUTPATIENT VISIT EST Diagnosis: Sinusitis[ICD10: J32.9] Diagnosis: Allergic rhinitis[ICD10: J30.9] Pennie BETTENCOURT [facility] CPT-4: 91026 05/13/2019 ([id number]) OFFICE/OUTPATIENT VISIT EST Diagnosis: Pneumonia[ICD10: J18.9] Pennie [facility] CPT-4: 17274 04/26/2019 ([id number]) OFFICE/OUTPATIENT VISIT EST Diagnosis: Acute sinusitis, unspecified[ICD10: J01.90] Pennie BETTENCOURT [facility] CPT-4: 31895 02/22/2019 ([id number]) OFFICE/OUTPATIENT VISIT EST Diagnosis: Cervicalgia[ICD10: M54.2] Xiomara MCGEE [facility] CPT-4: 54842 11/25/2018 ([id number]) OFFICE/OUTPATIENT VISIT EST Diagnosis: Acute sinusitis, unspecified[ICD10: J01.90] Diagnosis: Myalgia, unspecified site[ICD10: M79.10] Diagnosis: Cervicalgia[ICD10: M54.2] [facility] C[facility]: 16280 11/19/2018 ([id number]) OFFICE/OUTPATIENT VISIT EST Diagnosis: Low back pain[ICD10: M54.5] Diagnosis: Essential (primary) hypertension[ICD10: I10] Diagnosis: 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, 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] Diagnosis: Paroxysmal atrial fibrillation[ICD10: I48.0] [facility]: 04989 07/22/2018 ([id number]) OFFICE/OUTPATIENT VISIT EST Diagnosis: Type 2 diabetes mellitus with diabetic neuropathy, unspecified[ICD10: E11.40] Diagnosis: Hyperlipidemia, unspecified[ICD10: E78.5] Diagnosis: Essential (primary) hypertension[ICD10: I10] Diagnosis: Chronic kidney disease, stage 1[ICD10: N18.1] Diagnosis: Benign prostatic hyperplasia with lower urinary tract symptoms[ICD10: N40.1] Diagnosis: FLU VACCINE[ICD10: Z23] Xiomara LARA [employer] AgentEdvin [facility] [employer] [facility] CPT-4: 63773 04/21/2018 OFFICE/OUTPATIENT VISIT EST Diagnosis: Type 2 diabetes mellitus with hyperglycemia[ICD10: E11.65] Diagnosis: Essential (primary) hypertension[ICD10: I10] Diagnosis: Mixed hyperlipidemia[ICD10: E78.2] Diagnosis: Other fatigue[ICD10: R53.83] Pennie MCBRIDE [employer] [facility] CPT-4: 03017 01/06/2018 ([id number]) OFFICE/OUTPATIENT VISIT EST Diagnosis: Type 2 diabetes mellitus with diabetic neuropathy, unspecified[ICD10: E11.40] Diagnosis: Essential (primary) hypertension[ICD10: I10] Diagnosis: Pain in right thigh[ICD10: M79.651] Diagnosis: Pain in left leg[ICD10: M79.605] Diagnosis: Localized swelling, mass and lump, left lower limb[ICD10: R22.42] Diagnosis: OSTEOARTHRISIS MULTI SITES[ICD10: M19.90] Diagnosis: FLU VACCINE[ICD10: Z23] Xiomara Gan [facility] [employer] [facility] CPT-4: 73845 04/22/2017 ([id number]) OFFICE/OUTPATIENT VISIT EST Diagnosis: Essential (primary) hypertension[ICD10: I10] Diagnosis: Type 2 diabetes mellitus with hyperglycemia[ICD10: E11.65] Diagnosis: Angina pectoris, unspecified[ICD10: I20.9] Xiomara BETTENCOURT [employer] [facility] CPT-4: 77485 10/10/2016 ([id number]) OFFICE/OUTPATIENT VISIT EST Diagnosis: Cough[ICD10: R05] Diagnosis: Wheezing[ICD10: R06.2] Diagnosis: Chronic obstructive pulmonary disease, unspecified[ICD10: J44.9] Shannan BETTENCOURT [employer] [facility] CPT-4: 66414 08/31/2015 OFFICE/OUTPATIENT VISIT EST Diagnosis: Acute bronchitis, unspecified[ICD10: J20.9] Diagnosis: Wheezing[ICD10: R06.2] Kelsie Dolan [facility] CPT-4: 92512 08/29/2015 ([id number]) OFFICE/OUTPATIENT VISIT EST Diagnosis: Type 2 diabetes mellitus with diabetic neuropathy, unspecified[ICD10: E11.40] Diagnosis: Hyperlipidemia, unspecified[ICD10: E78.5] Diagnosis: Essential (primary) hypertension[ICD10: I10] Diagnosis: Encounter for general adult medical examination without abnormal findings[ICD10: Z00.00] Xiomara BETTENCOURT [facility] [facility] CPT-4: 57535 07/26/2015 OFFICE/OUTPATIENT VISIT EST Diagnosis: Type 2 diabetes mellitus with hyperglycemia[ICD10: E11.65] Diagnosis: Unspecified osteoarthritis, unspecified site[ICD10: M19.90] Diagnosis: Other instability, right knee[ICD10: M25.361] Kelsie BETTENCOURT [facility] CPT-4: 89627 07/24/2015 ([id number]) OFFICE/OUTPATIENT VISIT EST Diagnosis: Pain in leg, unspecified[ICD10: M79.606] Diagnosis: Type 2 diabetes mellitus with diabetic neuropathy, unspecified[ICD10: E11.40] Xiomara BETTENCOURT [facility] CPT-4: 84386 05/01/2015 ([id number]) OFFICE/OUTPATIENT VISIT EST Diagnosis: MALAISE AND FATIGUE[ICD9: 780.79] Diagnosis: 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, 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] Diagnosis: CAD[ICD9: 414.00] Diagnosis: ANEMIA NOS[ICD9: 285.9] Xiomara [facility] CPT-4: 83590 01/17/2015 ([id number]) OFFICE/OUTPATIENT VISIT EST Diagnosis: Skin lesion[ICD9: 709.9] Xiomara HAND [facility] CPT-4: 09314 09/29/2014 OFFICE/OUTPATIENT VISIT EST Diagnosis: GASTROENTERITIS[ICD9: 558.9] Diagnosis: GERD[ICD9: 530.81] Kelsie VanPrabhakarre [facility] CPT-[facility]: 38138 02/18/2014 ([id number]) OFFICE/OUTPATIENT VISIT EST Diagnosis: 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I, UNCONTROLLED[ICD9: 250.02] [facility] CPT-4: 36593 07/29/2013 ([id number]) OFFICE/OUTPATIENT VISIT EST Diagnosis: FLU VACCINE[ICD9: V04.81] Xiomara MAGALLON [facility] CPT-4: 60492 07/22/2013 ([id number]) OFFICE/OUTPATIENT VISIT EST Diagnosis: 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I, UNCONTROLLED[ICD9: 250.02] Diagnosis: HYPERTENSION[ICD9: 401.9] Xiomara [facility]ALLON [facility] CPT-4: 72947 05/26/2013 ([id number]) OFFICE/OUTPATIENT VISIT EST Diagnosis: MONONEURITIS[ICD9: 355.9] Diagnosis: RESTLESS LEGS SYNDROME[ICD9: 333.94] Diagnosis: HYPERTENSION[ICD9: 401.9] Diagnosis: CAD[ICD9: 414.00] Diagnosis: Weakness[ICD9: 780.79] Xiomara [facility] CPT-4: 11990 04/28/2013 ([id number]) OFFICE/OUTPATIENT VISIT EST Diagnosis: 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[ICD9: 250.01] Diagnosis: MONONEURITIS[ICD9: 355.9] Diagnosis: HYPERLIPIDEMIA NEC/NOS[ICD9: 272.4] Diagnosis: CAD[ICD9: 414.00] Xiomara BETTENCOURT [facility] CPT-4: 50805 03/12/2013 OFFICE/OUTPATIENT VISIT NEW Diagnosis: CAD[ICD9: 414.00] Diagnosis: HYPERLIPIDEMIA NEC/NOS[ICD9: 272.4] Diagnosis: HYPERTENSION[ICD9: 401.9] Diagnosis: Neuropathy[ICD9: 355.9] Diagnosis: RESTLESS LEGS SYNDROME[ICD9: 333.94] Xiomara Gan [employer] CPT-4: 55781 03/11/2013 Plan of Care Planned Activity Notes [...] R06.09 10/27/2019 Patient Education: gabapentin- [employer] Coupon [phone] [email or web address]/[email or web address] Completed 10/27/2019 Visit Diagnosis Plan: DM w/o [...] : J44.9 10/20/2019 Appointment: Xiomara Bettencourt WPtel: [address] [place], [place] [phone] [place] FOLLOW UP 10/20/2019 Patient Education: furosemide- [employer] Coupon [phone] [email or web address]://[email or web address][email or web address]/resources/getResource/[email or web address] Completed 10/20/2019 Visit Diagnosis Plan: Hypotension Discussion: [...] : G47.33 10/12/2019 Appointment: Xiomara Bettencourt WPtel: [address] [place] [address] TELEMEDICINE 10/12/2019 Appointment: Xiomara Bettencourt WPtel: [address] [place] [address] [place] RESCHEDULED 09/23/2019 Care Plan: COMPREHEN METABOLIC PANEL SERGEI NC : 93803-0 Pending 09/20/2019 Care Plan: LIPID PANEL LOINC : 60289-3 Pending 09/20/2019 Care Plan: A1C HPLC LOINC : 26496-2 Pending 09/20/2019 Care Plan: COMPLETE CBC W/AUTO DIFF WBC LOINC : 67362-4 Pending 09/20/2019 Visit Diagnosis Plan: Upper respiratory [...] : J06.9 06/02/2019 Appointment: Pennie Pizarro [address] [place], [place] [phone] ACUTE ILLNESS 06/02/2019 Visit Diagnosis Plan: Allergic [...] : J30.9 05/13/2019 Appointment: Pennie Pizarro [address] [place], [place] [phone] ACUTE ILLNESS 05/13/2019 Appointment: Xiomara Bettencourt WPtel: [phone] [facility] CANCELED 04/27/2019 Visit Diagnosis Plan: Pneumonia Discussion: will obtai n records from urgent care. instructed to finish out doxy. no rhonchi or crackles auscultated. symbicort sample given to patient with instructions to use bid. call office later this week with new or worsening symptoms. ICD-9 : 486 ICD-10 : J18.9 04/26/2019 Appointment: Pennie Pizarro [address] [place], [place] [phone] FOLLOW UP 04/26/2019 Visit Diagnosis Plan: Acute [...] : J01.90 02/22/2019 Appointment: Pennie Pizarro [address] [place], [place] [phone] ACUTE ILLNESS 02/22/2019 Patient Education: prednisone- Opt[employer]RX Coupon [phone] https://[email or web address].[email or web address]/[email or web address]/resources/getResource/[email or web address] Completed 02/22/2019 Visit Diagnosis Plan: Cervicalgia Discussion: Check Ce rvical Spine X-ray Will likely need PT ICD-9 : 723.1 ICD-10 : M54.2 11/25/2018 Appointment: Xiomara Bettencourt WPtel: [phone] [facility] ACUTE ILLNESS 11/25/2018 Visit Plan: Saline [...] : M79.10 11/19/2018 Appointment: Xiomara Bettencourt WPtel[facility] [facility] 11/19/2018 Patient Education: baclofen- Opt[employer] Coupon [phone] [email or web address]://[email or web address]/[email or web address]/resources/getResource/[email or web address] Completed 11/19/2018 Visit Diagnosis Plan: Essential (primary) [...] : E10.9 07/22/2018 Appointment: Xiomara Bettencourt WPtel: [facility] [place] [phone] [place] FOLLOW UP 07/22/2018 Visit Diagnosis Plan: Benign prostatic h yperplasia with lower urinary tract symptoms Discussion: Trial of flomax Call in [address] [facility] on how doing Follow Up: 4 [...] : N18.1 04/21/2018 Appointment: Xiomara Bettencourt WPtel: [facility] [place] FOLLOW UP 04/21/2018 Patient Education: Patient [...] Follow Up: 3 months Discussion: will call [facility] lab for recent labs. instructed patient that we will call him later today if additional labs are needed. instructed patient to continue working on diet and exercise. will adjust medications as needed based on recent labs. ICD-9 : 250.02 ICD-10 : E11.65 01/06/2018 Appointment: Pennie Pizarro [address] [place] [address] MEDICATION REVIEW 01/06/2018 Patient Education: Patient Medication Summary Completed 01/06/2018 Appointment: Xiomara Bettencourt WPtel: [address] [place] [address] NO SHOW 01/05/2018 Appointment: Xiomara Bettencourt WPtel: [address] [place] [address] [place] CANCELED 12/31/2017 Visit Diagnosis Plan: Actinic keratosis Discussion: Cr yotherapy as above but will see derm if lesions do not resolve ICD-9 : 702.0 ICD-10 : L57.0 10/22/2017 Appointment: Xiomara Bettencourt WPtel: [address] [place] [address] ACUTE ILLNESS 10/22/2017 Patient Education: Patient Medication [...] : M19.90 04/22/2017 Appointment: Xiomara Bettencourt WPtel: [address] [place], [place] [address] [place] FOLLOW UP 04/22/2017 Patient Education: Patient Medication Summary Completed 04/22/2017 Patient Education: Patient Medication Summary Completed 04/16/2017 Care Plan: COMPREHEN METABOLIC PANEL SERGEI NC : 69260-8 Pending 04/16/2017 Care Plan: LIPID PANEL LOINC : 31510-5 Pending 04/16/2017 Care Plan: CBC Pending 04/16/2017 Care Plan: A1C HPLC LOINC : 93434-5 Pending 04/16/2017 Ref[facility]enc[facility] [phone] [facility] [facility]ment Confirmed 10/14/2016 Visit Diagnosis Plan: Angina pectoris, unspecified Dis cussion: Continue imdur and see cardiology To ER if chest pain returns ICD-9 : 413.9 ICD-10 : I20.9 10/10/2016 Visit Diagnosis Plan: Type 2 diabetes mellitus with hy perglycemia Discussion: Continue toujeo Accuchecks BID Follow Up: 4 months ICD-9 : 250.02 ICD-10 : E11.65 10/10/2016 Appointment: Xiomara Bettencourt WPtel: [facility] [place] FOLLOW [facility] 10/10/2016 Patient Education: Patient Medication Summary Completed 10/10/2016 Patient Education: Patient Medication Summary Completed 09/16/2016 Care Plan: COMPREHEN METABOLIC PANEL SERGEI NC : 32042-7 Pending 09/16/2016 Care Plan: ASSAY THYROID STIM HORMONE Pen ding 09/16/2016 Care Plan: ASSAY OF FREE THYROXINE Pendin g 09/16/2016 Care Plan: LIPID PANEL LOINC : 79509-4 Pending 09/16/2016 Care Plan: CBC Pending 09/16/2016 Care Plan: A1C HPLC LOINC : 73918-5 Pending 09/16/2016 Visit Plan: CXR now to further evaluate symptoms Suspect viral since he has been on 2 rounds of antibiotics If chronic lung disease evident, will consider keeping on symbicort [employer] Sample inhaler given today with instructions on use Continue oral prednisone, would like to avoid injection if possible considering his DM status and he is stable right now Continue albuterol PRN Will call with CXR results 08/31/2015 Appointment: Shannan Grimes [address] [place] [address] 08/31 confirmed- SP ACUTE ILLNESS 08/31/2015 Patient Education: Patient Medication Summary Completed 08/31/2015 Visit Plan: Albuterol INH via SVN every 4 hours Prednisone 20 mg PO BID Notify for worsening symptoms 08/29/2015 Appointment: Kelsie Grubbs WPtel: [address] [place], [place] [phone] ACUTE ILLNESS 08/29/2015 Patient Education: Patient Medication Summary Completed 08/29/2015 Appointment: Xiomara Bettencourt WPtel: [address] [place], [place] [phone] LAB 07/26/2015 Patient Education: Patient Medication Summary Completed 07/26/2015 Visit Plan: Return in am for fasting lab s - CBC, CMP, TSH, Free T4, HgbA1C Change Levemir to Toujeo - Continue 35 Units q am - sample given Start physical Therapy for increased quadriceps strengthening and decreased pain in knees, bilaterally. 07/24/2015 Appointment: Kelsie Grubbs WPtel: [address] [place] [address] 07/21 appt confirmed cn FOLLOW UP 07/24/19 16 Appointment: Humera Kelsie M WPtel: [address] [place] [address] [place] FOLLOW UP 07/24/2015 Patient Education: Patient [...] with insulin 05/01/2015 Appointment: Xiomara Bettencourt WPtel: [address] [place] [address] 04/28 confirmed~sl ACUTE ILLNESS 05/01/2015 Patient Education: Patient Medication Summary Completed 05/01/2015 Patient Education: Patient Medication Summary Completed 01/19/2015 Care Plan: URINALYSIS AUTO W/O SCOPE SERGEI NC : 60492-4 Pending 01/19/2015 Visit Plan: I have went through his medi cations in past and stopped meds but he adjusts his meds on his own and has restarted some Stop Amaryl Once again discussed not using indomethacin routinely due to taking plavix and aspirin daily and nursing home use is dangerous Check CBC, CMP, TSH, free T4, B12 and HbA1C Patient has seen Cardiology recently but no cardiac cath done--had chemical stress test 01/17/2015 Appointment: Xiomara Bettencourt WPtel: [address] [place] [address] 01/16 vm cn ACUTE ILLNESS 01/17/2015 Patient Education: Patient Medication Summary Completed 01/17/2015 Visit Plan: See Dr. Garvin for removal 09/29/2014 Appointment: Xiomara Bettencourt WPtel: [address] [place] [address] ACUTE ILLNESS 09/29/2014 Referral: Colt Garvin WPtel: [address] [place] [address] Referral Initiated 09/29/2014 Patient Education: Patient Medication Summary Completed 09/29/2014 Visit Plan: Check CBC, CMP, TSH, free T4 , HbA1C, Lipids Accuchecks daily alternating times Patient has been adjusting own meds and has not taken any cholesterol meds for sometime Will check into surgery on right knee at [facility] Check carotid dopplers 08/04/2014 Appointment: Xiomara [facility] WPtel: [address] [place] [address] Annual Well Visit 08/04/2014 Patient Education: Patient Medication Summary Completed 08/04/2014 Appointment: Kelsie Grubbs WPtel: [address] [place] [address] ACUTE ILLNESS 02/18/2014 Patient Education: Patient Medication Summary Completed 02/18/2014 Patient Education: [facility] - Saving AutoInj - 18+ - Dynamic Portal ID Completed 02/18/2014 Appointment: Xiomara Bettencourt WPtel: [address] [place] [address] LAB 09/08/2013 Visit Plan: Check fasting lab in 1mo Con tinue Lantus and accuchecks at least BID 07/29/2013 Appointment: Xiomara Bettencourt WPtel: [address] [place] [address] FOLLOW UP 07/29/2013 Patient Education: Patient Medication Summary Completed 07/29/2013 Appointment: Xiomara Bettencourt WPtel: [address] [place] [address] US INJECTION 07/22/2013 Patient Education: Patient Medication Summary Completed 07/22/2013 Visit Plan: Pt has been self-adjusting m eds Stop metformin and amaryl Use Levemir 25u sc BID and call in 1wk with BS readings 05/26/2013 Appointment: Xiomara Bettencourt WPtel: [address] [place] [address] US FOLLOW UP 05/26/2013 Patient Education: Patient Medication Summary Completed 05/26/2013 Visit Plan: DC Metformin Increase Lantus to 30u sc daily Change lisinopril to lisinopril HCT 20/25mg q AM Continue Gabapentin at current dose 04/28/2013 Appointment: Xiomara Bettencourt WPtel: [address] [place], [place] [id number] FOLLOW UP 04/28/2013 Patient Education: Patient Medication Summary Completed 04/28/2013 Appointment: Xiomara Bettencourt WPtel: [address] [place], [place] [id number] [place] LAB 03/12/2013 Patient Education: Patient Medication Summary Completed 03/12/2013 Visit Plan: Trial of neurontin 400mg q H S Obtain most recent lab results Change levemir to lantus per pt request Pt goes for sleep study tonite 03/11/2013 Appointment: Xiomara Bet[facility]court WPtel: [facility] 02/01paperwork mailed 03/10 confirmed with spouse NEW PATIENT 11/2012 Patient Education: Patient Medication Summary Completed 03/11/2013 Instructions Comment . Saline nasal flushes prn. Tylenol/Motr in prn headache. Notify if persists/symptoms worsening. . CXR now to further evaluate symptoms Suspect viral since he has been on 2 rounds of antibiotics If chronic lung disease evident, will consider keeping on [employer] intermediary Sample inhaler given today with instructions on [...] to taking plavix and aspirin daily and nursing home use is dangerous Check CBC, CMP, [...] surgery on right knee at [facility] Check carotid dopplers . Check fasting [...]
--- OUTSIDE RECORDS SUMMARY | 2020-02-02 21:38 | XMS REPORT | CCD ---
Author Author Sheng Bettencourt D.O. Organization [facility] Address [address] [place] [address] Phone Care Team Providers Care Financial Manager Name Role Phone PP Unavailable CCM Unavailable Summary Purpose Interface Exchange Insurance Providers Payer name Policy type / Coverage type Covered democrat ID Effective Begin Date Effective End Date WPS MEDICARE PART B [place] Medicare Part B [id number] 2018 Unknown [facility] Medicare Part B [id number] 2018 Un known Family history Mother Diagnosis Age At Onset Diabetes mellitus Type 2 Unknown Hypercholesterolemia Unknown Father Diagnosis Age At Onset No Family Disease Entered N/A Social History Social History Element Codes Description Effective Dates Marital status Unknown 03/11/2013 Number of children Unknown 4 03/11/2013 Employment Unknown Retired 03/11/[address]: 2317736 Former smoker 03/11/[address]: 085523 Currently drinks alc ohol Socially 03/11/2013 Has [...] Fill Instructions glimepiride 2 mg tablet RxNorm: 785177 1 Tablet(s) Oral QD 10/27/19 No Stop Date Active gabapentin 400 mg capsule RxNorm: 942339 1 Capsule(s) Oral QPM 10/0604/24/2020 Active potassium chloride ER 20 mEq tablet,extended release RxNorm: 433530 1 Tablet(s) Oral QD to take with lasix 10/20/2019 10/26/2019 Inactive furosemide 40 mg tablet RxNorm: 913227 1 Tablet(s) Oral QAM for swelling 10/20/2019 10/26/2019 Inactive albuterol sulfate HFA 90 mcg/actuation aerosol inhaler RxNor m: 8804547 1-2 Puff(s) Inhalation as needed 10/12/2019 No Stop Date Active Zyrtec 10 mg tablet RxNorm: 5696078 1 Tablet(s) Oral QAM 10/12/2019 No Stop Date Active aspirin 81 mg tablet,delayed release RxNorm: 690355 1 Tablet(s) Oral QD 10/12/2019 No Stop Date Active Symbicort 160 mcg-4.5 mcg/actuation HFA aerosol inhaler RxNo rm: 3190355 2 Puff(s) Inhalation QD 10/12/2019 No Stop Date Active lisinopril 20 mg tablet RxNorm: 831527 1 Tablet(s) Oral QD 10/12/19 20 01/10/2020 Active simvastatin 20 mg tablet RxNorm: 449936 1 Tablet(s) Ora l QD Needs updated fasting labs 09/20/2019 12/19/2019 Active Needs updated fa sting labs before 90 day refill Flomax 0.4 mg capsule RxNorm: 648180 TAKE TWO CAPSULES BY MOUTH EVERY EVENING 08/03/2019 No Stop Date Active gabapentin 400 mg capsule RxNorm: 668892 TAKE ONE CAPSU LE BY MOUTH EVERY EVENING 08/02/2019 10/26/2019 Inactive simvastatin 20 mg tablet RxNorm: 669355 1 Tablet(s) Ora l QD Needs updated fasting labs 07/21/2019 08/19/2019 Inactive Needs updated fa sting labs before 90 day refill simvastatin 20 mg tablet RxNorm: 449352 1 Tablet(s) Ora l QD Needs updated fasting labs 06/23/2019 07/20/2019 Inactive Needs updated fa sting labs before 90 day refill Flomax 0.4 mg capsule RxNorm: 299692 1 Capsule(s) Oral QD 05/13/2019 10/19/2019 Inactive Flomax 0.4 mg capsule RxNorm: 675992 TAKE TWO CAPSULES BY MOUTH EVERY EVENING 03/19/2019 05/12/2019 Inactive Augmentin 500 mg-125 mg tablet RxNorm: 038632 1 Tablet(s) PO BID 03/03/2019 Inactive baclofen 10 mg tablet RxNorm: 984284 TAKE ONE TABLET BY MOUTH EVERY NIGHT AT BEDTIME FOR PAIN OR SPASMS 01/14/2019 05/12/2019 Inactive Flomax 0.4 mg capsule RxNorm: 624949 TAKE TWO CAPSULES BY MOUTH EVERY EVENING 01/12/2019 03/18/2019 Inactive gabapentin 400 mg capsule RxNorm: 799118 1 Capsule(s) PO QPM 201806/27/2019 Inactive baclofen 10 mg tablet RxNorm: 387967 1 Tablet(s) PO QHS for my n/spasm 12/15/2018 01/13/2019 Inactive simvastatin 20 mg tablet RxNorm: 522636 TAKE ONE TABLET BY MOUT H DAILY 12/11/2018 06/22/2019 Inactive OneTouch Ultra Blue Test Strip RxNorm: Use 1 rigoberto t strip three times daily to check blood sugar (Dx:E11.65) 12/07/2018 No Stop Date Active gabapentin 400 mg capsule RxNorm: 082273 TAKE ONE CAPSU LE BY MOUTH EVERY EVENING 12/04/2018 12/29/2018 Inactive baclofen 10 mg tablet RxNorm: 805732 1 Tablet(s) PO QHS for my n/spasm 11/19/2018 12/15/2018 Inactive Flomax 0.4 mg capsule RxNorm: 773151 2 Capsule(s) PO QPM 09/15/2018 0 12/13/2018 Inactive WOULD LIKE 90DS!!! gabapentin 400 mg capsule RxNorm: 292592 TAKE ONE CAPSU LE BY MOUTH EVERY EVENING 07/21/2018 10/18/2018 Inactive simvastatin 20 mg tablet RxNorm: 657119 1 Tablet(s) PO QD 06/15/2018 12/10/2018 Inactive Flomax 0.4 mg capsule RxNorm: 577483 TAKE TWO CAPSULES BY MOUTH EVERY EVENING 06/02/2018 09/15/2018 Inactive WOULD LIKE 90DS!!! Flomax 0.4 mg capsule RxNorm: 299057 2 Capsule(s) PO QPM 04/21/2018 1 07/20/2017 Inactive simvastatin 20 mg tablet RxNorm: 563372 1 Tablet(s) PO QD Take 1 tablet by mouth daily. Patient due for labwork before further refill. 04/06/20182017 Inactive simvastatin 20 mg tablet RxNorm: 486450 Tablet(s) TAKE ONE TABLET BY MOUTH DAILY 03/25/2018 06/15/2018 Inactive simvastatin 20 mg tablet RxNorm: 128549 Tablet(s) TAKE ONE TABLET BY MOUTH DAILY due for appt 12/29/2017 03/25/2018 Inactive simvastatin 20 mg tablet RxNorm: 767898 TAKE ONE TABLET BY MOUT H DAILY 09/03/2017 12/29/2017 Inactive simvastatin 20 mg tablet RxNorm: 907601 1 Tablet(s) PO QD 10/22/2016 11/18/2018 Inactive isosorbide mononitrate ER 60 mg tablet,extended release 24 h r RxNorm: 001471 1 Tablet(s) PO QD 10/22/2016 04/21/2017 Inactive isosorbide mononitrate ER 60 mg tablet,extended release 24 h r RxNorm: 155568 1 Tablet(s) PO QD 10/10/2016 10/21/2016 Inactive simvastatin 20 mg tablet RxNorm: 156918 1 Tablet(s) PO QD 10/10/2016 10/21/2016 Inactive gabapentin 400 mg capsule RxNorm: 867569 1 Capsule(s) PO QPM 201609/20/2016 Inactive Toujeo SoloStar 300 unit/mL (1.5 mL) subcutaneous insulin pe n RxNorm: 1722982 35 Unit(s) SQ QAM 07/23/2016 07/22/2016 Inactive Toujeo SoloStar 300 unit/mL (1.5 mL) subcutaneous insulin pe n RxNorm: 4901708 40 Unit(s) SQ QAM 09/01/2015 No Stop Date Active Symbicort 160 mcg-4.5 mcg/actuation HFA aerosol inhaler RxNo rm: 5409404 2 Puff(s) INH BID 08/31/2015 09/09/2015 Inactive prednisone 20 mg tablet RxNorm: 955677 1 Tablet(s) PO BID 08/29/2015 09/02/2015 Inactive albuterol sulfate 2.5 mg/3 mL (0.083 %) solution for n ebulization RxNorm: 731283 1 Unit(s) INH Q4H as needed 08/29/2015 10/09/2016 Inactive levothyroxine 75 mcg tablet RxNorm: 387802 1 Tablet(s) PO QD 201507/27/2015 Inactive levothyroxine 75 mcg tablet RxNorm: 142674 1 Tablet(s) PO QD 201511/18/2018 Inactive levothyroxine 75 mcg tablet RxNorm: 664325 1 Tablet(s) PO QD 201507/27/2015 Inactive lisinopril 20 mg-hydrochlorothiazide 25 mg tablet RxNorm: 19 7887 TAKE ONE TABLET BY MOUTH EVERY MORNING. REPLACES PLAIN LISINOPRIL 03/06/2015 04/21/2017 Inactive lisinopril 20 mg-hydrochlorothiazide 25 mg tablet RxNorm: 19 7887 TAKE ONE TABLET BY MOUTH EVERY MORNING. REPLACES PLAIN LISINOPRIL 09/08/2014 03/05/2015 Inactive allopurinol 100 mg tablet RxNorm: 195883 1 Tablet(s) PO BID 015 10/09/2016 Inactive [SAVINGS FOR NON-COVERED YULIA GS -- BIN:[id number], PCN: [id number], Group: [id number], ID# [id number], Questions: . THIS IS NOT INSURANCE.] levothyroxine 50 mcg tablet RxNorm: 220383 1 Tablet(s) PO QD 201407/26/2015 Inactive [AttnRPh: Saving apply/adjud icate RxGRP:SG20 RxBIN:[id number] RxPCN:HT ID#:[id number]] Zegerid 40 mg-1.1 gram capsule RxNorm: 006305 1 Capsule(s) PO QD 03/03/2014 Inactive [AttnRPh: Saving apply/adjud icate RxGRP:SG20 RxBIN:[id number] RxPCN:HT ID#:[id number]] ondansetron 8 mg disintegrating tablet RxNorm: 403349 1 Tablet(s) PO Q8H as needed for [...] 07/28/2013 Inactive gabapentin 400 mg capsule RxNorm: 080013 1 Capsule(s) PO QPM 201207/28/2013 Inactive gabapentin 400 mg capsule RxNorm: 279186 1 Capsule(s) PO QPM 201206/26/2013 Inactive lisinopril 20 mg-hydrochlorothiazide 25 mg tablet RxNorm: 82 3971 1 Tablet(s) PO QAM replaces plain lisinopril 04/28/2013 07/29/2013 Inactive gabapentin 400 mg capsule RxNorm: 198162 1 Capsule(s) PO QPM 201204/27/2013 Inactive gabapentin 400 mg capsule RxNorm: 852309 1 Capsule(s) PO QPM 201203/10/2013 Inactive gabapentin 400 mg capsule RxNorm: 427141 1 Capsule(s) PO QPM 201203/14/2013 Inactive Lantus Solostar 100 unit/mL (3 mL) Sub-Q Insulin Pen RxNorm: 824661 20 Unit(s) SQ QPM 03/11/2013 03/15/2013 Inactive Toujeo SoloStar 300 unit/mL (1.5 mL) subcutaneous insulin pe n RxNorm: 4029029 35 Unit(s) SQ QAM No Start Date Active omeprazole 20 mg capsule,delayed release RxNorm: 349117 1 Capsu le(s) PO QD No Start Date Active isosorbide mononitrate ER 60 mg tablet,extended release 24 h r RxNorm: 123267 1 Tablet(s) PO QD No Start Date Active Eliquis 5 mg tablet RxNorm: 6155383 1 Tablet(s) PO BID No Start Date Active metformin 500 mg tablet RxNorm: 282231 1 Tablet(s) PO BID No Start Da te Active levothyroxine 50 mcg tablet RxNorm: 392106 1 Tablet(s) PO QD No Start Date Active Norvasc 10 mg tablet RxNorm: 826058 1 Tablet(s) PO QHS No Start Date Active Toujeo SoloStar 300 unit/mL (1.5 mL) subcutaneous insulin pe n RxNorm: 1387984 30 Unit(s) SQ QAM No Start Date Active glimepiride 4 mg tablet RxNorm: 164229 1 Tablet(s) PO QHS No Start Date 07/26/2015 Inactive allopurinol 100 mg tablet RxNorm: 285429 1 Tablet(s) PO BID No Star t Date 08/10/2014 Inactive Lantus Solostar 100 unit/mL (3 mL) subcutaneous insulin pen RxNorm: 727745 30 Unit(s) SQ QD No Start Date 08/03/2014 Inactive Levemir FlexTouch 100 unit/mL (3 mL) subcutaneous insulin pe n RxNorm: 932364 25 Unit(s) SQ QAM No Start Date 07/23/2015 Inactive Lantus 100 unit/mL Sub-Q RxNorm: 859237 30 Unit(s) SQ QHS No Start Date 05/25/2013 Inactive Lantus Solostar 100 unit/mL (3 mL) Sub-Q Insulin Pen RxNorm: 097758 20 Unit(s) SQ QPM No Start Date 03/10/2013 Inactive OneTouch Ultra Blue Test Strip RxNorm: Use 1 rigoberto t strip three times daily to check blood sugar (Dx:E11.65) No Start Date 12/06/2018 Inactive Levemir FlexTouch 100 unit/mL (3 mL) subcutaneous insulin pe n RxNorm: 769902 30- 35 Unit(s) SQ QAM No Start Date 07/23/2015 Inactive Levemir Flexpen 100 unit/mL (3 mL) solution subcutaneo us insulin pen RxNorm: 198021 20-25 Unit(s) SQ QD No Start Date 07/28/2013 Inactive lisinopril 20 mg tablet RxNorm: 953755 1 Tablet(s) PO QD No Start D ate 10/11/2019 Inactive indomethacin ER 75 mg capsule,extended release RxNorm: 37608 2 1 Capsule(s) PO QAM No Start Date 04/27/2013 Inactive indomethacin ER 75 mg capsule,extended release RxNorm: 82010 2 1 Capsule(s) PO QD No Start Date 01/16/2015 Inactive Chlortab-4 oral RxNorm: 050650 oral No Start Date 10/11/2019 Inac tive Vitamin D3 5,000 unit tablet RxNorm: 981516 1 Tablet(s) PO QD No St art Date 08/03/2014 Inactive Levemir Flexpen 100 unit/mL (3 mL) solution subcutaneo us insulin Pen RxNorm: 393334 20 Unit(s) SQ QHS No Start Date 03/10/2013 Inactive Vytorin 10 mg-40 mg tablet RxNorm: 2665648 1/2 Tablet(s) PO QD No S tart Date 04/20/2018 Inactive oxymetazoline-menthol 0.05 % nasal spray RxNorm: 8068878 [place] N COTY No Start Date 10/11/2019 Inactive Patient states he ta kes every 10 hours Toujeo SoloStar 300 unit/mL (1.5 mL) subcutaneous insulin pe n RxNorm: 3440260 35 Unit(s) SQ QAM No Start Date 07/22/2016 Inactive Lantus Solostar 100 unit/mL (3 mL) subcutaneous insulin pen RxNorm: 229074 20 Unit(s) SQ QD No Start Date 08/03/2014 Inactive aspirin 81 mg tablet RxNorm: 067774 1 Tablet(s) PO QD No Start Date 0 08/03/2014 Inactive metformin 500 mg tablet RxNorm: 565685 1 Tablet(s) PO BID No Start Date 07/28/2013 Inactive glimepiride 4 mg tablet RxNorm: 890963 1 Tablet(s) PO BID No Start Date 01/16/2015 Inactive glimepiride 4 mg tablet RxNorm: 920200 1 Tablet(s) PO QD No Start D ate 08/03/2014 Inactive levothyroxine 25 mcg tablet RxNorm: 712970 1 Tablet(s) PO QD No Sta rt Date 08/10/2014 Inactive doxycycline oral RxNorm: 10898 oral No Start Date 05/12/2019 Inac tive aspirin 81 mg tablet RxNorm: 058824 1 Tablet(s) PO QD No Start Date 0 07/21/2018 Inactive isosorbide mononitrate ER 60 mg tablet,extended release 24 h r RxNorm: 715342 1 Tablet(s) PO BID No Start Date 01/16/2015 Inactive metformin 500 mg tablet RxNorm: 596023 1 Tablet(s) PO BID No Start Date 04/27/2013 Inactive Plavix 75 mg tablet RxNorm: 836162 1 Tablet(s) PO QD No Start Date Inactive glimepiride 4 mg tablet RxNorm: 504860 1 Tablet(s) PO QPM No Start Date 02/21/2019 Inactive Vytorin 10-40 10 mg-40 mg tablet RxNorm: 8394361 1 Tablet(s) PO QHS No Start Date 08/03/2014 Inactive indomethacin 50 mg capsule RxNorm: 956837 1 Capsule(s) PO QHS No St art Date 01/16/2015 Inactive glimepiride 4 mg tablet RxNorm: 324762 1 Tablet(s) PO BID No Start Date 07/28/2013 Inactive Levemir FlexTouch 100 unit/mL (3 mL) subcutaneous insulin pe n RxNorm: 096909 20 Unit(s) SQ QD No Start Date 04/30/2015 Inactive lisinopril 20 mg tablet RxNorm: 088520 1 Tablet(s) PO BID No Start Date 04/27/2013 Inactive Venita Hopkinsar SubQ RxNorm: Subcutaneous No Start Date 03/15/2013 I nactive Zantac 150 mg tablet RxNorm: 603277 1 Tablet(s) PO QHS No Start Date 10/11/2019 Inactive allopurinol 300 mg tablet RxNorm: 444644 1 Tablet(s) PO QD No Start Date 08/03/2014 Inactive Fish Oil 1,000 mg capsule RxNorm: 1 Capsule(s) PO QD No Start Date 02/21/2019 Inactive indomethacin 50 mg capsule RxNorm: 317943 1 Capsule(s) PO BID No St art Date 04/20/2018 Inactive levothyroxine 50 mcg tablet RxNorm: 338136 1 Tablet(s) PO QD No Sta rt Date 08/10/2014 Inactive glimepiride 4 mg tablet RxNorm: 308825 1 Tablet(s) PO BID No Start Date 03/15/2013 Inactive indomethacin 50 mg capsule RxNorm: 584032 1 Capsule(s) PO QHS No St art Date 04/27/2013 Inactive Medication Administered No Medication Administered data Immunizations Vaccine Codes Date Status Influenza CVX: 135 04/21/2018 Complete Influenza CVX: 135 04/22/2017 Complete Results Observation Observation Code Item Item Code Result Date S ervice Location [facility] 02042 Cholesterol 209 mg/dL 09/17/2016 Unkno wn [facility] 50234 Triglyceride 111 mg/dL 09/17/2016 Unkn own [facility] 45149 HDL CHOLESTEROL 50 mg/dL 09/17/2016 U nknown [facility] 46617 Chol/HDL Ratio 4.18 ratio 09/17/2016 U nknown [facility] 77282 NON-HDL Chol 159 mg/dL 09/17/2016 Unkn own [facility] 62367 LDL Cholesterol 137 mg/dL 09/17/2016 U nknown MEAN GLUC 1800164 Calc Mean Gluc 151 mg/dL 09/17/2016 Unkn own COMPREHENSIVE METABOLIC 75701 AST 23 U/L 2016 Unknown COMPREHENSIVE METABOLIC 98852 ALT 19 U/L 2016 Unknown COMPREHENSIVE METABOLIC 28075 BUN 15 mg/dL 2016 Unknown COMPREHENSIVE METABOLIC 63885 ALBUMIN 4.3 g/dL 2016 Unknown COMPREHENSIVE METABOLIC 44509 CHLORIDE 103 mmol/L 09/17 Unknown COMPREHENSIVE METABOLIC 08568 Bili Total 0.6 mg/dL 09/17 Unknown COMPREHENSIVE METABOLIC 09441 ALK PHOS 60 U/L 2016 Unknown COMPREHENSIVE METABOLIC 99436 SODIUM 140 mmol/L 09/17 Unknown COMPREHENSIVE METABOLIC 98732 CREATININE 1.03 mg/dL 09/04 Unknown COMPREHENSIVE METABOLIC 11356 CALCIUM 9.5 mg/dL 2016 Unknown COMPREHENSIVE METABOLIC 34782 POTASSIUM 3.9 mmol/L 09/17 Unknown COMPREHENSIVE METABOLIC 34751 Total Protein 6.9 g/dL Unknown COMPREHENSIVE METABOLIC 16724 Glucose 94 mg/dL 2016 Unknown COMPREHENSIVE METABOLIC 84388 Bicarbonate 28 mmol/L 09/04 Unknown COMPREHENSIVE METABOLIC 50274 AGAP 9 mmol/L 2016 Unknown GFR CALC 2246478 GFR Non Afr Amr >60 mL/min 09/17/2016 Un known GFR CALC 8020270 GFR Afr Amr >60 mL/min 09/17/2016 Unknow n THYROID STIMULATING HORMONE 83682 TSH 4.260 uIU/mL 09/17/2016 Unknown GLYCOSYLATED HEMOGLOBIN TEST 79837 Hgb A1c 30197-9 6.9 % 0 09/17/2016 Unknown FREE T4 71323 T4 Free 1.02 ng/dL 09/17/2016 Unknown COMPLETE BLOOD COUNT [id number] WBC 8.6 10e9/L 07/26/19 16 Unknown COMPLETE BLOOD COUNT [id number] RBC 4.86 10e12/L 2015 Unknown COMPLETE BLOOD COUNT 6344250 HGB 14.6 g/dL 6 Unknown COMPLETE BLOOD COUNT 9736804 HCT DET 43.1 % 6 Unknown COMPLETE BLOOD COUNT 9332995 MCV 88.7 fL 6 Unknown COMPLETE BLOOD COUNT 5846063 MCH 30.0 pg 6 Unknown COMPLETE BLOOD COUNT 8416991 MCHC 33.9 g/dL 6 Unknown COMPLETE BLOOD COUNT 0049917 PLT 267 10e9/L 07/26/19 16 Unknown COMPLETE BLOOD COUNT 7140773 MPV 11.5 fL 6 Unknown COMPLETE BLOOD COUNT [id number] SAM % 64.8 % 6 Unknown COMPLETE BLOOD COUNT 8938714 LY % 16.8 % 6 Unknown COMPLETE BLOOD COUNT 8036297 MON % 12.5 % 6 Unknown COMPLETE BLOOD COUNT 5557385 EOS % 5.6 % 6 Unknown COMPLETE BLOOD COUNT 3858002 BASO % 0.3 % 6 Unknown COMPLETE BLOOD COUNT 9373406 RDW 13.4 % 6 Unknown COMPLETE BLOOD COUNT 6383984 ABS SAM 5.57 10e9/L 016 Unknown COMPLETE BLOOD COUNT [id number] ABS LYMPH 1.44 10e9/L 016 Unknown COMPLETE BLOOD COUNT 0346653 ABS MONO 1.08 10e9/L 016 Unknown COMPLETE BLOOD COUNT [id number] ABS EOS 0.48 10e9/L 016 Unknown COMPLETE BLOOD COUNT 1439141 ABS BASO 0.03 10e9/L 016 Unknown COMPLETE BLOOD COUNT 8931870 RDW-SD 42.9 fL 6 Unknown PSA EQUIMOLAR MATT 54034 PSA EQ 0.78 NG/ML 6 Unknown THYROID STIMULATING HORMONE 26273 TSH 5.292 uIU/ML 07/26/2015 Unknown GLYCOSYLATED HEMOGLOBIN TEST 65848 A1C HPLC 95501-4 7.0 % 0 07/26/2015 Unknown GFR CALC 3260904 GFR AA >60 ML/MIN 07/26/2015 Unknown GFR CALC 9864592 GFR NON-AA >60 ML/MIN 07/26/2015 Unknown [facility] 07187 HDL TEST 64 MG/DL 07/26/2015 Unknown [facility] 93890 TRIG 58 MG/DL 07/26/2015 Unknown [facility] 75327 TEST LDL 49 MG/DL 07/26/2015 Unknown [facility] 43706 CHOL 125 MG/DL 07/26/2015 Unknown [facility] 37686 RCHOL/HDL 1.95 RATIO 07/26/2015 Unknow n [facility] GROUP 44989 NON-HDL CH 61 MG/DL 07/26/2015 Unknow n COMPREHENSIVE METABOLIC 26429 AST 25 U/L 2015 Unknown COMPREHENSIVE METABOLIC 69706 ALT 23 IU/L 2015 Unknown COMPREHENSIVE METABOLIC 72544 BUN 18 MG/DL 2015 Unknown COMPREHENSIVE METABOLIC 20679 ALBUMIN 4.6 GM/DL 2015 Unknown COMPREHENSIVE METABOLIC 75512 CHLORIDE 100 MMOL/L 07/26 Unknown COMPREHENSIVE METABOLIC 97404 BILI TOT 0.5 MG/DL 2015 Unknown COMPREHENSIVE METABOLIC 06378 ALK PHOS 49 U/L 2015 Unknown COMPREHENSIVE METABOLIC 71210 SODIUM 137 MMOL/L 07/26 Unknown COMPREHENSIVE METABOLIC 43819 CREATININE 1.06 MG/DL 07/08 Unknown COMPREHENSIVE METABOLIC 27745 CALCIUM 9.5 MG/DL 2015 Unknown COMPREHENSIVE METABOLIC 64669 POTASSIUM 4.5 MMOL/L 07/26 Unknown COMPREHENSIVE METABOLIC 86215 PROT TOT 6.5 GM/DL 2015 Unknown COMPREHENSIVE METABOLIC 92248 Glucose 109 MG/DL 2015 Unknown COMPREHENSIVE METABOLIC 74809 BICARB 29 MMOL/L 2015 Unknown COMPREHENSIVE METABOLIC 03377 ANION GAP 8 MEQ/L 2015 Unknown FREE T4 15194 FREE T4 1.11 NG/DL 07/26/2015 Unknown CULTURE & SENSITIVITY 93714 PROTEIN UR NEG 015 Unknown CULTURE & SENSITIVITY 06162 HEMGLBN UR TR 015 Unknown CULTURE & SENSITIVITY 42155 GLUCOSE UR NEG 015 Unknown CULTURE & SENSITIVITY 98676 KETONES UR NEG 015 Unknown CULTURE & SENSITIVITY 86126 PH U 6.5 01/25/20 15 Unknown CULTURE & SENSITIVITY 21343 SP GR U 1.013 01/25/20 15 Unknown CULTURE & SENSITIVITY 51699 BILRUBN UR NEG 015 Unknown CULTURE & SENSITIVITY 58236 LEUKO UR NEG 01/25/20 15 Unknown CULTURE & SENSITIVITY 34118 NITRITE UR NEG 015 Unknown MICR CUL? [id number] SP TO JOHANA? NO 01/24/2015 Unknown MICR CUL? 0083129 APPEAR UR NORMAL 01/24/2015 Unknown MICR CUL? 2888820 RBC/uL 2.2 01/24/2015 Unknown MICR CUL? 8485078 WBC/uL 2.8 01/24/2015 Unknown MICR CUL? 6817221 SQ EPI/uL 1.0 01/24/2015 Unknown MICR CUL? 3405493 HYALCST/uL 0.25 01/24/2015 Unknown MICR CUL? 0243616 WBC /HPF 1 01/24/2015 Unknown MICR CUL? 0224348 RBC /HPF 0 01/24/2015 Unknown GLYCOSYLATED HEMOGLOBIN TEST 65600 A1C HPLC 53345-5 6.6 % 0 01/17/2015 Unknown COMPLETE BLOOD COUNT 1309972 WBC 10.1 10e9/L 015 Unknown COMPLETE BLOOD COUNT [id number] RBC 4.60 10e12/L 2014 Unknown COMPLETE BLOOD COUNT 5290602 HGB 14.0 g/dL 5 Unknown COMPLETE BLOOD COUNT 0415828 HCT DET 39.9 % 5 Unknown COMPLETE BLOOD COUNT 0290078 MCV 86.7 fL 5 Unknown COMPLETE BLOOD COUNT 0779827 MCH 30.4 pg 5 Unknown COMPLETE BLOOD COUNT 1346709 MCHC 35.1 g/dL 5 Unknown COMPLETE BLOOD COUNT 8209465 PLT 252 10e9/L 01/18/20 15 Unknown COMPLETE BLOOD COUNT 8085125 MPV 11.4 fL 5 Unknown COMPLETE BLOOD COUNT 6869158 SAM % 72.9 % 5 Unknown COMPLETE BLOOD COUNT 2300679 LY % 13.6 % 5 Unknown COMPLETE BLOOD COUNT 2187680 MON % 10.2 % 5 Unknown COMPLETE BLOOD COUNT 1802272 EOS % 3.1 % 5 Unknown COMPLETE BLOOD COUNT 6013889 BASO % 0.2 % 5 Unknown COMPLETE BLOOD COUNT 0496640 RDW 13.6 % 5 Unknown COMPLETE BLOOD COUNT [id number] ABS SAM 7.36 10e9/L 015 Unknown COMPLETE BLOOD COUNT 2196789 ABS LYMPH 1.37 10e9/L 015 Unknown COMPLETE BLOOD COUNT [id number] ABS MONO 1.03 10e9/L 015 Unknown COMPLETE BLOOD COUNT 1529853 ABS EOS 0.31 10e9/L 015 Unknown COMPLETE BLOOD COUNT 6847016 ABS BASO 0.02 10e9/L 015 Unknown COMPLETE BLOOD COUNT 1473099 RDW-SD 42.4 fL 5 Unknown GFR CALC 2585195 GFR AA 51.0L ML/MIN 01/17/2015 Unknow n GFR CALC 4216969 GFR NON-AA 42.0L ML/MIN 01/17/2015 Unkno wn FREE T4 71580 FREE T4 1.30 NG/DL 01/17/2015 Unknown THYROID STIMULATING HORMONE 09267 TSH 4.029 uIU/ML 01/17/2015 Unknown COMPREHENSIVE METABOLIC 55620 AST 28 U/L 2014 Unknown COMPREHENSIVE METABOLIC 73720 ALT 25 IU/L 2014 Unknown COMPREHENSIVE METABOLIC 81604 BUN 21 MG/DL 2014 Unknown COMPREHENSIVE METABOLIC 26608 ALBUMIN 4.7 GM/DL 2014 Unknown COMPREHENSIVE METABOLIC 71268 CHLORIDE 102 MMOL/L 01/17 Unknown COMPREHENSIVE METABOLIC 78716 BILI TOT 0.6 MG/DL 2014 Unknown COMPREHENSIVE METABOLIC 82456 ALK PHOS 44 U/L 2014 Unknown COMPREHENSIVE METABOLIC 92447 SODIUM 137 MMOL/L 01/17 Unknown COMPREHENSIVE METABOLIC 79452 CREATININE 1.62 MG/DL 01/04 Unknown COMPREHENSIVE METABOLIC 27716 CALCIUM 9.7 MG/DL 2014 Unknown COMPREHENSIVE METABOLIC 28410 POTASSIUM 4.5 MMOL/L 01/17 Unknown COMPREHENSIVE METABOLIC 43744 PROT TOT 6.5 GM/DL 2014 Unknown COMPREHENSIVE METABOLIC 39511 Glucose 136 MG/DL 2014 Unknown COMPREHENSIVE METABOLIC 17599 BICARB 24 MMOL/L 2014 Unknown COMPREHENSIVE METABOLIC 53415 ANION GAP 11 MEQ/L 2014 Unknown VITAMIN B 12 18580 VIT B 12 482 PG/ML 01/17/2015 Unknow n URIC ACID 72595 URIC ACID 8.5 MG/DL 08/09/2014 Unknown COMPREHENSIVE METABOLIC 48277 AST 27 U/L 2014 Unknown COMPREHENSIVE METABOLIC 52822 ALT 26 IU/L 2014 Unknown COMPREHENSIVE METABOLIC 86752 BUN 17 MG/DL 2014 Unknown COMPREHENSIVE METABOLIC 23411 ALBUMIN 5.0 GM/DL 2014 Unknown COMPREHENSIVE METABOLIC 94714 CHLORIDE 101 MMOL/L 08/09 Unknown COMPREHENSIVE METABOLIC 05431 BILI TOT 0.7 MG/DL 2014 Unknown COMPREHENSIVE METABOLIC 53597 ALK PHOS 53 U/L 2014 Unknown COMPREHENSIVE METABOLIC 47224 SODIUM 136 MMOL/L 08/09 Unknown COMPREHENSIVE METABOLIC 76313 CREATININE 1.14 MG/DL 09/2014 Unknown COMPREHENSIVE METABOLIC 74166 CALCIUM 9.8 MG/DL 2014 Unknown COMPREHENSIVE METABOLIC 90356 POTASSIUM 4.1 MMOL/L 08/09 Unknown COMPREHENSIVE METABOLIC 53539 PROT TOT 7.5 GM/DL 2014 Unknown COMPREHENSIVE METABOLIC 75403 Glucose 110 MG/DL 2014 Unknown COMPREHENSIVE METABOLIC 85685 BICARB 30 MMOL/L 2014 Unknown COMPREHENSIVE METABOLIC 83733 ANION GAP 5 MEQ/L 2014 Unknown GFR CALC 3278282 GFR AA >60 ML/MIN 08/09/2014 Unknown GFR CALC 7841976 GFR NON-AA >60 ML/MIN 08/09/2014 Unknown FREE T4 34072 FREE T4 1.14 NG/DL 08/09/2014 Unknown GLYCOSYLATED HEMOGLOBIN TEST 43699 A1C HPLC 06623-5 6.8 % 0 08/09/2014 Unknown COMPLETE BLOOD COUNT [id number] WBC 5.9 10e9/L 08/09/19 15 Unknown COMPLETE BLOOD COUNT [id number] RBC 5.04 10e12/L 2014 Unknown COMPLETE BLOOD COUNT 7390675 HGB 15.2 g/dL 5 Unknown COMPLETE BLOOD COUNT 1944575 HCT DET 44.3 % 5 Unknown COMPLETE BLOOD COUNT 5748791 MCV 87.9 fL 5 Unknown COMPLETE BLOOD COUNT [id number] MCH 30.2 pg 5 Unknown COMPLETE BLOOD COUNT [id number] MCHC 34.3 g/dL 5 Unknown COMPLETE BLOOD COUNT [id number] PLT 262 10e9/L 08/09/19 15 Unknown COMPLETE BLOOD COUNT [id number] MPV 10.9 fL 5 Unknown COMPLETE BLOOD COUNT [id number] SAM % 58.7 % 5 Unknown COMPLETE BLOOD COUNT [id number] LY % 21.5 % 5 Unknown COMPLETE BLOOD COUNT [id number] MON % 14.0 % 5 Unknown COMPLETE BLOOD COUNT [id number] EOS % 5.3 % 5 Unknown COMPLETE BLOOD COUNT [id number] BASO % 0.5 % 5 Unknown COMPLETE BLOOD COUNT [id number] RDW 13.1 % 5 Unknown COMPLETE BLOOD COUNT [id number] ABS SAM 3.46 10e9/L 015 Unknown COMPLETE BLOOD COUNT [id number] ABS LYMPH 1.27 10e9/L 015 Unknown COMPLETE BLOOD COUNT [id number] ABS MONO 0.83 10e9/L 015 Unknown COMPLETE BLOOD COUNT [id number] ABS EOS 0.31 10e9/L 015 Unknown COMPLETE BLOOD COUNT [id number] ABS BASO 0.03 10e9/L 015 Unknown COMPLETE BLOOD COUNT [id number] RDW-SD 41.2 fL 5 Unknown THYROID STIMULATING HORMONE [id number] TSH 5.395 uIU/ML 08/09/2014 Unknown LIPID GROUP [id number] HDL TEST 52 MG/DL 08/09/2014 Unknown LIPID GROUP [id number] TRIG 113 MG/DL 08/09/2014 Unknown LIPID GROUP [id number] TEST LDL 158 MG/DL 08/09/2014 Unknown LIPID GROUP [id number] CHOL 233 MG/DL 08/09/2014 Unknown LIPID GROUP 43790 RCHOL/HDL 4.48 RATIO 08/09/2014 Unknow n LIPID GROUP 04350 NON-HDL CH 181 MG/DL 08/09/2014 Unknow n COMPLETE BLOOD COUNT [id number] WBC 6.8 10e9/L 09/09/19 14 Unknown COMPLETE BLOOD COUNT [id number] RBC 5.18 10e12/L 2013 Unknown COMPLETE BLOOD COUNT [id number] HGB 15.2 g/dL 4 Unknown COMPLETE BLOOD COUNT [id number] HCT DET 44.7 % 4 Unknown COMPLETE BLOOD COUNT [id number] MCV 86.3 fL 4 Unknown COMPLETE BLOOD COUNT [id number] MCH 29.3 pg 4 Unknown COMPLETE BLOOD COUNT [id number] MCHC 34.0 g/dL 4 Unknown COMPLETE BLOOD COUNT [id number] PLT 236 10e9/L 09/09/19 14 Unknown COMPLETE BLOOD COUNT [id number] MPV 11.0 fL 4 Unknown COMPLETE BLOOD COUNT [id number] SAM % 58.2 % 4 Unknown COMPLETE BLOOD COUNT [id number] LY % 21.9 % 4 Unknown COMPLETE BLOOD COUNT [id number] MON % 12.5 % 4 Unknown COMPLETE BLOOD COUNT [id number] EOS % 7.3 % 4 Unknown COMPLETE BLOOD COUNT [id number] BASO % 0.1 % 4 Unknown COMPLETE BLOOD COUNT [id number] RDW 13.6 % 4 Unknown COMPLETE BLOOD COUNT [id number] ABS SAM 3.96 10e9/L 014 Unknown COMPLETE BLOOD COUNT [id number] ABS LYMPH 1.49 10e9/L 014 Unknown COMPLETE BLOOD COUNT [id number] ABS MONO 0.85 10e9/L 014 Unknown COMPLETE BLOOD COUNT [id number] ABS EOS 0.50 10e9/L 014 Unknown COMPLETE BLOOD COUNT [id number] ABS BASO 0.01 10e9/L 014 Unknown COMPLETE BLOOD COUNT [id number] RDW-SD 42.3 fL 4 Unknown COMPREHENSIVE METABOLIC 23728 AST 27 U/L 2013 Unknown COMPREHENSIVE METABOLIC 95059 ALT 30 IU/L 2013 Unknown COMPREHENSIVE METABOLIC 10116 BUN 16 MG/DL 2013 Unknown COMPREHENSIVE METABOLIC 64317 ALBUMIN 4.9 GM/DL 2013 Unknown COMPREHENSIVE METABOLIC 72790 CHLORIDE 99 MMOL/L 2013 Unknown COMPREHENSIVE METABOLIC 17439 BILI TOT 0.7 MG/DL 2013 Unknown COMPREHENSIVE METABOLIC 93288 ALK PHOS 53 U/L 2013 Unknown COMPREHENSIVE METABOLIC 14401 SODIUM 137 MMOL/L 09/08 Unknown COMPREHENSIVE METABOLIC 64921 CREATININE 1.01 MG/DL 11/2013 Unknown COMPREHENSIVE METABOLIC 51765 CALCIUM 10.0 MG/DL 09/08 Unknown COMPREHENSIVE METABOLIC 15961 POTASSIUM 4.4 MMOL/L 09/08 Unknown COMPREHENSIVE METABOLIC 80149 PROT TOT 7.1 GM/DL 2013 Unknown COMPREHENSIVE METABOLIC 39858 Glucose 148 MG/DL 2013 Unknown COMPREHENSIVE METABOLIC 81388 BICARB 30 MMOL/L 2013 Unknown COMPREHENSIVE METABOLIC 53231 ANION GAP 8 MEQ/L 2013 Unknown GFR CALC 6849187 GFR AA >60 ML/MIN 09/08/2013 Unknown GFR CALC 1113241 GFR NON-AA >60 ML/MIN 09/08/2013 Unknown FREE T4 48939 FREE T4 1.08 NG/DL 09/08/2013 Unknown GLYCOSYLATED HEMOGLOBIN TEST 44568 A1C HPLC 34225-2 7.3 % 0 09/08/2013 Unknown THYROID STIMULATING HORMONE 85911 TSH 5.454 uIU/ML 09/08/2013 Unknown LIPID GROUP 08773 HDL TEST 59 MG/DL 09/08/2013 Unknown LIPID GROUP 83786 TRIG 92 MG/DL 09/08/2013 Unknown LIPID GROUP 38280 TEST LDL 83 MG/DL 09/08/2013 Unknown LIPID GROUP 98832 CHOL 160 MG/DL 09/08/2013 Unknown LIPID GROUP 25904 RCHOL/HDL 2.71 RATIO 09/08/2013 Unknow n VITAMIN B 12 FOLIC ACID 93135|10024 VIT B 12 467 PG/ML 12/2012 Unknown VITAMIN B 12 FOLIC ACID 12811|95836 FOLIC ACID 12.2 NG/ML Unknown VITAMIN B 12 FOLIC ACID 38312|06736 VIT B 12 467 PG/ML 12/2012 Unknown THYROID STIMULATING HORMONE 62794 TSH 4.557 uIU/ML 03/12/2013 Unknown HEMOGLOBIN A1C (GLYCOSYLATED) 4344133 A1C HPLC 70614-9 7.6 % 03/12/2013 Unknown VITAMIN D TOTAL (25 HYDROXY) 09613 VIT D TOTL 17 NG/ML 03/12/2013 Unknown FREE T4 45344 FREE T4 1.07 NG/DL 03/12/2013 Unknown URIC ACID 90867 URIC ACID 5.2 MG/DL 03/12/2013 Unknown Procedures Procedure Codes Date THER/PROPH/DIAG INJ SC/IM CPT-4: 64016 05/13/2019 TRIAMCINOLONE ACET INJ NOS CPT-4: J3301 05/13/2019 DEXAMETHASONE SODIUM PHOS CPT-4: J1100 05/13/2019 THER/PROPH/DIAG INJ SC/IM CPT-4: 18340 02/22/2019 TRIAMCINOLONE ACET INJ NOS CPT-4: J3301 02/22/2019 FLU VACC PRSV FREE INC ANTIG 65 AND OLDER CPT-4: 17449 04/21/2018 ADMIN INFLUENZA VIRUS VAC CPT-4: G0008 04/21/2018 PRESCRIP TRANSMIT VIA ERX SY CPT-4: G8553 04/21/2018 DESTRUCT PREMALG LESION (Cryosurgery) CPT-4: 32069 FLU VACC PRSV FREE INC ANTIG 65 AND OLDER CPT-4: 01656 04/22/2017 ADMIN INFLUENZA VIRUS VAC CPT-4: G0008 04/22/2017 PRESCRIP TRANSMIT VIA ERX SY CPT-4: G8553 10/10/2016 PRESCRIP TRANSMIT VIA ERX SY CPT-4: G8553 08/29/2015 ROUTINE VENIPUNCTURE CPT-4: 18286 07/26/2015 ASSAY OF FREE THYROXINE CPT-4: 99330 07/26/2015 ASSAY THYROID STIM HORMONE CPT-4: 26134 07/26/2015 COMPREHEN METABOLIC PANEL CPT-4: 74470 07/26/2015 COMPLETE CBC W/AUTO DIFF WBC CPT-4: 00131 07/26/2015 LIPID PANEL CPT-4: 04468 07/26/2015 ASSAY OF PSA TOTAL CPT-4: 02238 07/26/2015 A1C HPLC CPT-4: 47252 07/26/2015 ROUTINE VENIPUNCTURE CPT-4: 83796 01/17/2015 ASSAY OF FREE THYROXINE CPT-4: 85527 01/17/2015 ASSAY THYROID STIM HORMONE CPT-4: 92824 01/17/2015 COMPREHEN METABOLIC PANEL CPT-4: 39346 01/17/2015 COMPLETE CBC W/AUTO DIFF WBC CPT-4: 69739 01/17/2015 A1C HPLC CPT-4: 75803 01/17/2015 VITAMIN B-12 CPT-4: 26446 01/17/2015 PPPS, subseq visit CPT-4: G0439 08/04/2014 PRESCRIP TRANSMIT VIA ERX SY CPT-4: G8553 02/18/2014 FLUZONE, 5ML (Medicare) CPT-4: Q2038 07/22/2013 ADMIN INFLUENZA VIRUS VAC CPT-4: G0008 07/22/2013 PRESCRIP TRANSMIT VIA ERX SY CPT-4: G8553 04/28/2013 ROUTINE VENIPUNCTURE CPT-4: 81946 03/12/2013 VITAMIN D TOTAL (25 HYDROXY) CPT-4: 49269 03/12/2013 VITAMIN B 12 FOLIC ACID CPT-4: 76513|94893 03/12/2013 A1C GLYCOSYLATED HEMOGLOBIN TEST CPT-4: 90039 013 ASSAY OF BLOOD/URIC ACID CPT-4: 28726 03/12/2013 ASSAY OF FREE THYROXINE CPT-4: 19817 03/12/2013 ASSAY THYROID STIM HORMONE CPT-4: 30273 03/12/2013 CUR TOBACCO NON-USER CPT-4: G8457 03/11/2013 [...] 1: 156/70 Code: 8480-6 BMI: 35.0 Code: 34663-5 Heart Rate 1: 68 bpm Height: 5'10" Respiratory Rate: 20 bpm SpO2: 95% Tempera ture: 36.5 (C) / 97.7 (F) Weight: 244 lbs 04/21/2018 Blood Pressure 1: 124/80 Code: 8480-6 BMI: 34.4 Code: 62020-5 Heart Rate 1: 80 bpm Height: 5'10" Respiratory Rate: 20 bpm SpO2: 96% Tempera ture: 37.0 (C) / 98.6 (F) Weight: 240 lbs 01/06/2018 Blood Pressure 1: 138/82 Code: 8480-6 BMI: 33.9 Code: 52071-1 Heart Rate 1: 96 bpm Height: 5'10" Respiratory Rate: 24 bpm SpO2: 98% Tempera ture: 35.9 (C) / 96.6 (F) Weight: 236 lbs 10/22/2017 Blood Pressure 1: 144/70 Code: 8480-6 BMI: 34.7 Code: 94398-8 Heart Rate 1: 72 bpm Height: 5'10" Respiratory Rate: 20 bpm SpO2: 96% Tempera ture: 36.9 (C) / 98.4 (F) Weight: 242 lbs 04/22/2017 Blood Pressure 1: 146/82 Code: 8480-6 BMI: 32.9 Code: 01823-6 Heart Rate 1: 104 bpm Height: 5'10" Respiratory Rate: 20 bpm SpO2: 95% Tempera ture: 36.9 (C) / 98.5 (F) Weight: 229 lbs 10/10/2016 Blood Pressure 1: 124/64 Code: 8480-6 BMI: 32.9 Code: 88997-5 Heart Rate 1: 64 bpm Height: 5'10" [...] 1: 146/90 Code: 8480-6 BMI: 34.1 Code: 73232-5 Heart Rate 1: 80 bpm Height: 5'10" Respiratory Rate: 20 bpm Temperature: 36 .8 (C) / 98.2 (F) Weight: 238 lbs 01/17/2015 Blood Pressure 1: 116/60 Code: 8480-6 BMI: 32.7 Code: 95711-1 Heart Rate 1: 84 bpm Height: 5'10" Respiratory Rate: 20 bpm Temperature: 36 .7 (C) / 98.0 (F) Weight: 228 lbs 09/29/2014 Blood Pressure 1: 136/78 Code: 8480-6 BMI: 33.9 Code: 86257-7 Heart Rate 1: 80 bpm Height: 5'10" Respiratory Rate: 20 bpm Temperature: 36 .6 (C) / 97.9 (F) Weight: 236 lbs 08/04/2014 Blood Pressure 1: 132/70 Code: 8480-6 BMI: 32.9 Code: 24172-1 Heart Rate 1: 72 bpm Height: 5'10" Respiratory Rate: 20 bpm Temperature: 36 .7 (C) / 98.0 (F) Weight: 229 lbs 02/18/2014 Blood Pressure 1: 124/82 Code: 8480-6 Heart Rate 1: 82 bpm Respiratory Rate: 18 bpm Temperature: 36.4 (C) / 97.5 (F) Weight: 232 lbs 07/29/2013 Blood Pressure 1: 146/80 Code: 8480-6 BMI: 34.1 Code: 94654-8 Heart Rate 1: 64 bpm Height: 5'10" Respiratory Rate: 20 bpm Temperature: 36 .9 (C) / 98.5 (F) Weight: 238 lbs 05/26/2013 Blood Pressure 1: 142/90 Code: 8480-6 BMI: 34.0 Code: 84317-5 Heart Rate 1: 84 bpm Height: 5'10" Respiratory Rate: 20 bpm Temperature: 36 .7 (C) / 98.0 (F) Weight: 237 lbs 04/28/2013 Blood Pressure 1: 118/78 Code: 8480-6 BMI: 32.9 Code: 86874-1 Heart Rate 1: 74 bpm Height: 5'10" Respiratory Rate: 20 bpm Temperature: 36 .1 (C) / 97.0 (F) Weight: 229 lbs 03/11/2013 Blood Pressure 1: 146/80 Code: 8480-6 BMI: 31.5 Code: 76134-4 Heart Rate 1: 80 bpm Height: 6' [...] and respiratory abnormality[ICD10: R06.09] Xiomara BETTENCOURT DO [facility] CPT-4: 81174 10/27/2019 ([id number]) OFFICE/OUTPATIENT VISIT EST Diagnosis: Chronic obstructive pulmonary disease, unspecified[ICD10: J44.9] Diagnosis: DM w/o complication type II, uncontrolled[ICD10: E11.65] Diagnosis: Edema[ICD10: R60.9] Xiomara BETTENCOURT [facility] CPT-4: 57352 10/20/2019 ([id number]) OFFICE/OUTPATIENT VISIT EST Diagnosis: Other dyspnea and respiratory abnormality[ICD10: R06.09] Diagnosis: Obstructive sleep apnea[ICD10: G47.33] Diagnosis: Hypotension[ICD10: I95.9] Xiomara Bettencourt [facility] CPT -4: 63027 10/12/2019 ([id number]) OFFICE/OUTPATIENT VISIT EST Diagnosis: Upper respiratory infection[ICD10: J06.9] Pennie BETTENCOURT [facility] CPT-4: 49217 06/02/2019 ([id number]) OFFICE/OUTPATIENT VISIT EST Diagnosis: Sinusitis[ICD10: J32.9] Diagnosis: Allergic rhinitis[ICD10: J30.9] Pennie BETTENCOURT [facility] CPT-4: 68266 05/13/2019 ([id number]) OFFICE/OUTPATIENT VISIT EST Diagnosis: Pneumonia[ICD10: J18.9] Pennie MCBRIDE [facility] CPT-4: 95724 04/26/2019 ([id number]) OFFICE/OUTPATIENT VISIT EST Diagnosis: Acute sinusitis, unspecified[ICD10: J01.90] Pennie BETTENCOURT [facility] CPT-4: 43095 02/22/2019 ([id number]) OFFICE/OUTPATIENT VISIT EST Diagnosis: Cervicalgia[ICD10: M54.2] Xiomara MCGEE [facility] CPT-4: 15631 11/25/2018 ([id number]) OFFICE/OUTPATIENT VISIT EST Diagnosis: Acute sinusitis, unspecified[ICD10: J01.90] Diagnosis: Myalgia, unspecified site[ICD10: M79.10] Diagnosis: Cervicalgia[ICD10: M54.2] [facility]ara [facility] CPT-4: 64760 11/19/2018 ([id number]) OFFICE/OUTPATIENT VISIT EST Diagnosis: Low back pain[ICD10: M54.5] Diagnosis: Essential (primary) hypertension[ICD10: I10] Diagnosis: 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, 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] Diagnosis: Paroxysmal atrial fibrillation[ICD10: I48.0] [facility] CPT-4: 06900 07/22/2018 ([id number]) OFFICE/OUTPATIENT VISIT EST Diagnosis: Type 2 diabetes mellitus with diabetic neuropathy, unspecified[ICD10: E11.40] Diagnosis: Hyperlipidemia, unspecified[ICD10: E78.5] Diagnosis: Essential (primary) hypertension[ICD10: I10] Diagnosis: Chronic kidney disease, stage 1[ICD10: N18.1] Diagnosis: Benign prostatic hyperplasia with lower urinary tract symptoms[ICD10: N40.1] Diagnosis: FLU VACCINE[ICD10: Z23] Xiomara LARA [employer] [facility] [employer] [facility] CPT-4: 46678 04/21/2018 OFFICE/OUTPATIENT VISIT EST Diagnosis: Type 2 diabetes mellitus with hyperglycemia[ICD10: E11.65] Diagnosis: Essential (primary) hypertension[ICD10: I10] Diagnosis: Mixed hyperlipidemia[ICD10: E78.2] Diagnosis: Other fatigue[ICD10: R53.83] Pennie MCBRIDE [employer] [facility] CPT-4: 34182 01/06/2018 ([id number]) OFFICE/OUTPATIENT VISIT EST Diagnosis: Type 2 diabetes mellitus with diabetic neuropathy, unspecified[ICD10: E11.40] Diagnosis: Essential (primary) hypertension[ICD10: I10] Diagnosis: Pain in right thigh[ICD10: M79.651] Diagnosis: Pain in left leg[ICD10: M79.605] Diagnosis: Localized swelling, mass and lump, left lower limb[ICD10: R22.42] Diagnosis: OSTEOARTHRISIS MULTI SITES[ICD10: M19.90] Diagnosis: FLU VACCINE[ICD10: Z23] Xiomara Gan [facility] [employer] [facility] CPT-4: 19502 04/22/2017 ([id number]) OFFICE/OUTPATIENT VISIT EST Diagnosis: Essential (primary) hypertension[ICD10: I10] Diagnosis: Type 2 diabetes mellitus with hyperglycemia[ICD10: E11.65] Diagnosis: Angina pectoris, unspecified[ICD10: I20.9] Xiomara BETTENCOURT [employer] [facility] CPT-4: 31367 10/10/2016 ([id number]) OFFICE/OUTPATIENT VISIT EST Diagnosis: Cough[ICD10: R05] Diagnosis: Wheezing[ICD10: R06.2] Diagnosis: Chronic obstructive pulmonary disease, unspecified[ICD10: J44.9] Shannan BETTENCOURT [employer] [facility] CPT-4: 84488 08/31/2015 OFFICE/OUTPATIENT VISIT EST Diagnosis: Acute bronchitis, unspecified[ICD10: J20.9] Diagnosis: Wheezing[ICD10: R06.2] Kelsie Dolan [employer] CPT-4: 18576 08/29/2015 ([id number]) OFFICE/OUTPATIENT VISIT EST Diagnosis: Type 2 diabetes mellitus with diabetic neuropathy, unspecified[ICD10: E11.40] Diagnosis: Hyperlipidemia, unspecified[ICD10: E78.5] Diagnosis: Essential (primary) hypertension[ICD10: I10] Diagnosis: Encounter for general adult medical examination without abnormal findings[ICD10: Z00.00] Xiomara BETTENCOURT [employer] [facility] CPT-4: 95178 07/26/2015 OFFICE/OUTPATIENT VISIT EST Diagnosis: Type 2 diabetes mellitus with hyperglycemia[ICD10: E11.65] Diagnosis: Unspecified osteoarthritis, unspecified site[ICD10: M19.90] Diagnosis: Other instability, right knee[ICD10: M25.361] Kelsie BETTENCOURT [employer] CPT-4: 31631 07/24/2015 ([id number]) OFFICE/OUTPATIENT VISIT EST Diagnosis: Pain in leg, unspecified[ICD10: M79.606] Diagnosis: Type 2 diabetes mellitus with diabetic neuropathy, unspecified[ICD10: E11.40] Xiomara BETTENCOURT [employer] CPT-4: 81288 05/01/2015 ([id number]) OFFICE/OUTPATIENT VISIT EST Diagnosis: MALAISE AND FATIGUE[ICD9: 780.79] Diagnosis: 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, 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] Diagnosis: CAD[ICD9: 414.00] Diagnosis: ANEMIA NOS[ICD9: 285.9] Xiomara MCBRIDE ER [facility] CPT-4: 86910 01/17/2015 ([id number]) OFFICE/OUTPATIENT VISIT EST Diagnosis: Skin lesion[ICD9: 709.9] Xiomara HADN [facility] CPT-4: 09826 09/29/2014 OFFICE/OUTPATIENT VISIT EST Diagnosis: GASTROENTERITIS[ICD9: 558.9] Diagnosis: GERD[ICD9: 530.81] Kelsie VanPrabhakarre XI[facility]ARA [facility] CPT-4: 57323 02/18/2014 ([id number]) OFFICE/OUTPATIENT VISIT EST Diagnosis: 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I, UNCONTROLLED[ICD9: 250.02] Xiomara [facility] CPT-4: 98331 07/29/2013 ([id number]) OFFICE/OUTPATIENT VISIT EST Diagnosis: FLU VACCINE[ICD9: V04.81] Xiomara MAGALLON [facility] CPT-4: 62196 07/22/2013 ([id number]) OFFICE/OUTPATIENT VISIT EST Diagnosis: 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I, UNCONTROLLED[ICD9: 250.02] Diagnosis: HYPERTENSION[ICD9: 401.9] Xiomara MAGALLON [facility] CPT-4: 52229 05/26/2013 ([id number]) OFFICE/OUTPATIENT VISIT EST Diagnosis: MONONEURITIS[ICD9: 355.9] Diagnosis: RESTLESS LEGS SYNDROME[ICD9: 333.94] Diagnosis: HYPERTENSION[ICD9: 401.9] Diagnosis: CAD[ICD9: 414.00] Diagnosis: Weakness[ICD9: 780.79] Xiomara [facility] CPT-4: 81994 04/28/2013 ([id number]) OFFICE/OUTPATIENT VISIT EST Diagnosis: 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[ICD9: 250.01] Diagnosis: MONONEURITIS[ICD9: 355.9] Diagnosis: HYPERLIPIDEMIA NEC/NOS[ICD9: 272.4] Diagnosis: CAD[ICD9: 414.00] Xiomara BETTENCOURT [employer] CPT-4: 21631 03/12/2013 OFFICE/OUTPATIENT VISIT NEW Diagnosis: CAD[ICD9: 414.00] Diagnosis: HYPERLIPIDEMIA NEC/NOS[ICD9: 272.4] Diagnosis: HYPERTENSION[ICD9: 401.9] Diagnosis: Neuropathy[ICD9: 355.9] Diagnosis: RESTLESS LEGS SYNDROME[ICD9: 333.94] Xiomara Gan [employer] CPT-4: 18625 03/11/2013 Plan of Care Planned Activity Notes [...] R06.09 10/27/2019 Patient Education: gabapentin- [employer] Coupon [phone] [email or web address]/[email or web address] Completed 10/27/2019 Visit Diagnosis Plan: DM w/o [...] : J44.9 10/20/2019 Appointment: Xiomara Bettencourt WPtel: [address] [place], [place] [phone] [place] FOLLOW UP 10/20/2019 Patient Education: furosemide- [employer] Coupon [phone] https://[email or web address]/resources/getResource/61/[email or web address] Completed 10/20/2019 Visit Diagnosis Plan: Hypotension Discussion: [...] : G47.33 10/12/2019 Appointment: Xiomara Bettencourt WPtel: [address] [place] [address] TELEMEDICINE 10/12/2019 Appointment: Xiomara Bettencourt WPtel: [address] [place] [address] [place] RESCHEDULED 09/23/2019 Care Plan: COMPREHEN METABOLIC PANEL SERGEI NC : 72262-6 Pending 09/20/2019 Care Plan: LIPID PANEL LOINC : 56670-7 Pending 09/20/2019 Care Plan: A1C HPLC LOINC : 85517-8 Pending 09/20/2019 Care Plan: COMPLETE CBC W/AUTO DIFF WBC LOINC : 02932-9 Pending 09/20/2019 Visit Diagnosis Plan: Upper respiratory infection Disc ussion: discussed that most likely viral. push fluids and rest through the week. patient has left over levaquin at home (5 days worth). instructed patient to start taking if he gets worse later this week and to call us next week if no improvement. ICD-9 : 465.9 ICD-10 : J06.9 06/02/2019 Appointment: Pennie Pizarro [address] [place], [place] [phone] ACUTE ILLNESS 06/02/2019 Visit Diagnosis Plan: Allergic [...] ICD-10 : J30.9 05/13/2019 Appointment: Pennie Pizarro [address] [place], [place] [id number] ACUTE ILLNESS 05/13/2019 Appointment: Xiomara Bettencourt WPtel: [phone] [facility] CANCELED 04/27/2019 Visit Diagnosis Plan: Pneumonia Discussion: will obtai n records from urgent care. instructed to finish out doxy. no rhonchi or crackles auscultated. symbicort sample given to patient with instructions to use bid. call office later this week with new or worsening symptoms. ICD-9 : 486 ICD-10 : J18.9 04/26/2019 Appointment: Pennie Pizarro [address] [place], [place] [phone] FOLLOW UP 04/26/2019 Visit Diagnosis Plan: Acute [...] ICD-10 : J01.90 02/22/2019 Appointment: Pennie Pizarro [address] [place], [place] [phone] ACUTE ILLNESS 02/22/2019 Patient Education: prednisone- [employer] Coupon [phone] https://[email or web address]/samplemd/resources/getResource/61/[email or web address] Completed 02/22/2019 Visit Diagnosis Plan: Cervicalgia Discussion: Check Ce rvical Spine X-ray Will likely need PT ICD-9 : 723.1 ICD-10 : M54.2 11/25/2018 Appointment: Xiomara Bettencourt WPtel: [phone] [facility] ACUTE ILLNESS 11/25/2018 Visit Plan: Saline [...] : M79.10 11/19/2018 Appointment: Xiomara Bettencourt [facility]Ptel[facility] [facility] 11/19/2018 Patient Education: baclofen- [employer] Coupon [phone] [id number] [email or web address]://[email or web address]/samplemd/resources/getResource/61/[email or web address] Completed 11/19/2018 Visit Diagnosis Plan: Essential (primary) [...] : E10.9 07/22/2018 Appointment: Xiomara Bettencourt WPtel: [facility] [place] [phone] [place] FOLLOW UP 07/22/2018 Visit Diagnosis Plan: [...] : N18.1 04/21/2018 Appointment: Xiomara Bettencourt WPtel: [facility] US FOLLOW UP 04/21/2018 Patient Education: [...] Follow Up: 3 months Discussion: will call [facility] [facility] lab for recent labs. instructed patient that we will call him later today if additional labs are needed. instructed patient to continue working on diet and exercise. will adjust medications as needed based on recent labs. ICD-9 : 250.02 ICD-10 : E11.65 01/06/2018 Appointment: Pennie Pizarro [address] [place] [address] MEDICATION REVIEW 01/06/2018 Patient Education: Patient Medication Summary Completed 01/06/2018 Appointment: Xiomara Bettencourt WPtel: [address] [place] [address] NO SHOW 01/05/2018 Appointment: Xiomara Bettencourt WPtel: [address] [place] [address] [place] CANCELED 12/31/2017 Visit Diagnosis Plan: Actinic keratosis Discussion: Cr yotherapy as above but will see derm if lesions do not resolve ICD-9 : 702.0 ICD-10 : L57.0 10/22/2017 Appointment: Xiomara Bettencourt WPtel: [address] [place] [address] ACUTE ILLNESS 10/22/2017 Patient Education: Patient Medication [...] : M19.90 04/22/2017 Appointment: Xiomara Bettencourt WPtel: [address] [place], [place] [address] [place] FOLLOW UP 04/22/2017 Patient Education: Patient Medication Summary Completed 04/22/2017 Patient Education: Patient Medication Summary Completed 04/16/2017 Care Plan: COMPREHEN METABOLIC PANEL SERGEI NC : 18292-2 Pending 04/16/2017 Care Plan: LIPID PANEL LOINC : 35209-5 Pending 04/16/2017 Care Plan: CBC Pending 04/16/2017 Care Plan: A1C HPLC LOINC : 41014-5 Pending 04/16/2017 [facility] Inocenc[facility] [facility] [facility]ment Confirmed 10/14/2016 Visit Diagnosis Plan: Angina pectoris, unspecified Dis cussion: Continue imdur and see cardiology To ER if chest pain returns ICD-9 : 413.9 ICD-10 : I20.9 10/10/2016 Visit Diagnosis Plan: Type 2 diabetes mellitus with hy perglycemia Discussion: Continue toujeo Accuchecks BID Follow Up: 4 months ICD-9 : 250.02 ICD-10 : E11.65 10/10/2016 Appointment: Xiomara Bettencourt WPtel: [facility] [facility] 10/10/2016 Patient Education: Patient Medication Summary Completed 10/10/2016 Patient Education: Patient Medication Summary Completed 09/16/2016 Care Plan: COMPREHEN METABOLIC PANEL SERGEI NC : 05528-6 Pending 09/16/2016 Care Plan: ASSAY THYROID STIM HORMONE Pen ding 09/16/2016 Care Plan: ASSAY OF FREE THYROXINE Pendin g 09/16/2016 Care Plan: LIPID PANEL LOINC : 66756-3 Pending 09/16/2016 Care Plan: CBC Pending 09/16/2016 Care Plan: A1C HPLC LOINC : 27837-3 Pending 09/16/2016 Visit Plan: CXR now to further evaluate symptoms Suspect viral since he has been on 2 rounds of antibiotics If chronic lung disease evident, will consider keeping on symbicort rn long term care Sample inhaler given today with instructions on use Continue oral prednisone, would like to avoid injection if possible considering his DM status and he is stable right now Continue albuterol PRN Will call with CXR results 08/31/2015 Appointment: Shannan Grimes [address] [place] [address] 08/31 confirmed- SP ACUTE ILLNESS 08/31/2015 Patient Education: Patient Medication Summary Completed 08/31/2015 Visit Plan: Albuterol INH via SVN every 4 hours Prednisone 20 mg PO BID Notify for worsening symptoms 08/29/2015 Appointment: Kelsie Grubbs WPtel: [address] [place], [place] [phone] ACUTE ILLNESS 08/29/2015 Patient Education: Patient Medication Summary Completed 08/29/2015 Appointment: Xiomara Bettencourt WPtel: [address] [place], [place] [phone] LAB 07/26/2015 Patient Education: Patient Medication Summary Completed 07/26/2015 Visit Plan: Return in am for fasting lab s - CBC, CMP, TSH, Free T4, HgbA1C Change Levemir to Toujeo - Continue 35 Units q am - sample given Start physical Therapy for increased quadriceps strengthening and decreased pain in knees, bilaterally. 07/24/2015 Appointment: Kelsie Grubbs WPtel: [address] [place] [address] 07/21 appt confirmed cn FOLLOW UP 07/24/19 16 Appointment: Humera Kelsie M WPtel: [address] [place] [address] [place] FOLLOW UP 07/24/2015 Patient Education: Patient [...] with insulin 05/01/2015 Appointment: Xiomara Bettencourt WPtel: [address] [place] [address] 04/28 confirmed~sl ACUTE ILLNESS 05/01/2015 Patient Education: Patient Medication Summary Completed 05/01/2015 Patient Education: Patient Medication Summary Completed 01/19/2015 Care Plan: URINALYSIS AUTO W/[place] : [id number] Pending 01/19/2015 Visit Plan: I have went [...] stress test 01/17/2015 Appointment: Xiomara Bettencourt WPtel: [address] [place] [address] 01/16 vm cn ACUTE ILLNESS 01/17/2015 Patient Education: Patient Medication Summary Completed 01/17/2015 Visit Plan: See Dr. Garvin for removal 09/29/2014 Appointment: Xiomara Bettencourt WPtel: [address] [place] [address] ACUTE ILLNESS 09/29/2014 Referral: Colt Garvin WPtel: [address] [place] [address] Referral Initiated 09/29/2014 Patient Education: Patient Medication Summary Completed 09/29/2014 Visit Plan: Check CBC, CMP, TSH, free T4 , HbA1C, Lipids Accuchecks daily alternating times Patient has been adjusting own meds and has not taken any cholesterol meds for sometime Will check into surgery on right knee at [facility] Check carotid dopplers 08/04/2014 Appointment: Xiomara Bettencourt WPtel: [address] [place] [address] Annual Well Visit 08/04/2014 Patient Education: Patient Medication Summary Completed 08/04/2014 Appointment: Kelsie Grubbs WPtel: [address] [place] [address] ACUTE ILLNESS 02/18/2014 Patient Education: Patient Medication Summary Completed 02/18/2014 Patient Education: [facility] [place] Saving AutoInj - 18+ - Dynamic Portal ID Completed 02/18/2014 Appointment: Xiomara Bettencourt WPtel: [address] [place] [address] LAB 09/08/2013 Visit Plan: Check fasting lab in 1mo Con tinue Lantus and accuchecks at least BID 07/29/2013 Appointment: Xiomara Bettencourt WPtel: [address] [place] [address] FOLLOW UP 07/29/2013 Patient Education: Patient Medication Summary Completed 07/29/2013 Appointment: Xiomara Bettencourt WPtel: [address] [place] [address] US INJECTION 07/22/2013 Patient Education: Patient Medication Summary Completed 07/22/2013 Visit Plan: Pt has been self-adjusting m eds Stop metformin and amaryl Use Levemir 25u sc BID and call in 1wk with BS readings 05/26/2013 Appointment: Xiomara Bettencourt WPtel: [address] [place] [address] US FOLLOW UP 05/26/2013 Patient Education: Patient Medication Summary Completed 05/26/2013 Visit Plan: DC Metformin Increase Lantus to 30u sc daily Change lisinopril to lisinopril HCT 20/25mg q AM Continue Gabapentin at current dose 04/28/2013 Appointment: Xiomara Bettencourt WPtel: [address] [place], [place] [id number] FOLLOW UP 04/28/2013 Patient Education: Patient Medication Summary Completed 04/28/2013 Appointment: Xiomara Bettencourt WPtel: [address] [place], [place] [id number] [place] LAB 03/12/2013 Patient Education: Patient Medication Summary Completed 03/12/2013 Visit Plan: Trial of neurontin 400mg q H S Obtain most recent lab results Change levemir to lantus per pt request Pt goes for sleep study tonite 03/11/2013 Appointment: Xiomara Bettencourt WPtel: [facility] 02/01paperwork mailed 03/10 confirmed with spouse NEW PATIENT 11/2012 Patient Education: Patient Medication Summary Completed 03/11/2013 Instructions Comment . Saline nasal flushes prn. Tylenol/Motr in prn headache. Notify if persists/symptoms worsening. . CXR now to further evaluate symptoms Suspect viral since he has been on 2 rounds of antibiotics If chronic lung disease evident, will consider keeping on symbicort rn long term care Sample inhaler given today with instructions on [...] check into surgery on right knee at [facility] Check carotid dopplers . Check fasting [...]
--- OUTSIDE RECORDS SUMMARY | 2020-02-02 21:39 | XMS REPORT | CCD ---
Author Author Sheng Bettencourt D.O. Organization [facility] Address [address] [place] [address] Phone Care Team Providers Care Vice President Tax Name Role Phone PP Unavailable CCM Unavailable Summary Purpose Interface Exchange Insurance Providers Payer name Policy type / Coverage type Covered constitution party ID Effective Begin Date Effective End Date WPS MEDICARE PART B [place] Medicare Part B [id number] 2018 Unknown [facility] Medicare Part B [id number] 2018 Un known Family history Mother Diagnosis Age At Onset Diabetes mellitus Type 2 Unknown Hypercholesterolemia Unknown Father Diagnosis Age At Onset No Family Disease Entered N/A Social History Social History Element Codes Description Effective Dates Marital status Unknown 03/11/2013 Number of children Unknown 4 03/11/2013 Employment Unknown Retired 03/11/[address]: 7006016 Former smoker 03/11/[address]: 337923 Currently drinks alc ohol Socially 03/11/2013 Has [...] ICD-9: 250.0 2 ICD-10: E11.65 08/04/2014 Active Edema ICD-9: 782.3 ICD-10: R60.9 10/20/2019 Active Hypotension ICD-9: 458.9 ICD-10: I95.9 10/12/2019 Active Obstructive sleep apnea ICD-9: 327.23 ICD-10: G47.33 10/12/2019 Active Other dyspnea and respiratory abnormality ICD-9: 786.0 9 ICD-10: R06.09 10/12/2019 Active Chronic kidney disease, stage 1 [...] Start Date Stop Date Status Fill Instructions potassium chloride ER 20 mEq tablet,extended release RxNorm: 832487 1 Tablet(s) Oral QD to take with lasix 10/20/2019 11/19/2019 Active furosemide 40 mg tablet RxNorm: 826483 1 Tablet(s) Oral QAM for swelling 10/20/2019 11/19/2019 Active albuterol sulfate HFA 90 mcg/actuation aerosol inhaler RxNor m: 3927609 1-2 Puff(s) Inhalation as needed 10/12/2019 No Stop Date Active Zyrtec 10 mg tablet RxNorm: 5564034 1 Tablet(s) Oral QAM 10/12/2019 No Stop Date Active aspirin 81 mg tablet,delayed release RxNorm: 316214 1 Tablet(s) Oral QD 10/12/2019 No Stop Date Active Symbicort 160 mcg-4.5 mcg/actuation HFA aerosol inhaler RxNo rm: 4016123 2 Puff(s) Inhalation QD 10/12/2019 No Stop Date Active lisinopril 20 mg tablet RxNorm: 623718 1 Tablet(s) Oral QD 10/12/19 20 01/10/2020 Active simvastatin 20 mg tablet RxNorm: 873829 1 Tablet(s) Ora l QD Needs updated fasting labs 09/20/2019 12/19/2019 Active Needs updated fa sting labs before 90 day refill Flomax 0.4 mg capsule RxNorm: 980165 TAKE TWO CAPSULES BY MOUTH EVERY EVENING 08/03/2019 No Stop Date Active gabapentin 400 mg capsule RxNorm: 650317 TAKE ONE CAPSU LE BY MOUTH EVERY EVENING 08/02/2019 No Stop Date Active simvastatin 20 mg tablet RxNorm: 643045 1 Tablet(s) Ora l QD Needs updated fasting labs 07/21/2019 08/19/2019 Inactive Needs updated fa sting labs before 90 day refill simvastatin 20 mg tablet RxNorm: 931919 1 Tablet(s) Ora l QD Needs updated fasting labs 06/23/2019 07/20/2019 Inactive Needs updated fa sting labs before 90 day refill Flomax 0.4 mg capsule RxNorm: 296377 1 Capsule(s) Oral QD 05/13/2019 10/19/2019 Inactive Flomax 0.4 mg capsule RxNorm: 290545 TAKE TWO CAPSULES BY MOUTH EVERY EVENING 03/19/2019 05/12/2019 Inactive Augmentin 500 mg-125 mg tablet RxNorm: 273328 1 Tablet(s) PO BID 03/03/2019 Inactive baclofen 10 mg tablet RxNorm: 695618 TAKE ONE TABLET BY MOUTH EVERY NIGHT AT BEDTIME FOR PAIN OR SPASMS 01/14/2019 05/12/2019 Inactive Flomax 0.4 mg capsule RxNorm: 232455 TAKE TWO CAPSULES BY MOUTH EVERY EVENING 01/12/2019 03/18/2019 Inactive gabapentin 400 mg capsule RxNorm: 352939 1 Capsule(s) PO QPM 201806/27/2019 Inactive baclofen 10 mg tablet RxNorm: 717278 1 Tablet(s) PO QHS for my n/spasm 12/15/2018 01/13/2019 Inactive simvastatin 20 mg tablet RxNorm: 796859 TAKE ONE TABLET BY MOUT H DAILY 12/11/2018 06/22/2019 Inactive OneTouch Ultra Blue Test Strip RxNorm: Use 1 rigoberto t strip three times daily to check blood sugar (Dx:E11.65) 12/07/2018 No Stop Date Active gabapentin 400 mg capsule RxNorm: 585369 TAKE ONE CAPSU LE BY MOUTH EVERY EVENING 12/04/2018 12/29/2018 Inactive baclofen 10 mg tablet RxNorm: 809763 1 Tablet(s) PO QHS for my n/spasm 11/19/2018 12/15/2018 Inactive Flomax 0.4 mg capsule RxNorm: 559410 2 Capsule(s) PO QPM 09/15/2018 0 12/13/2018 Inactive WOULD LIKE 90DS!!! gabapentin 400 mg capsule RxNorm: 171277 TAKE ONE CAPSU LE BY MOUTH EVERY EVENING 07/21/2018 10/18/2018 Inactive simvastatin 20 mg tablet RxNorm: 761723 1 Tablet(s) PO QD 06/15/2018 12/10/2018 Inactive Flomax 0.4 mg capsule RxNorm: 603066 TAKE TWO CAPSULES BY MOUTH EVERY EVENING 06/02/2018 09/15/2018 Inactive WOULD LIKE 90DS!!! Flomax 0.4 mg capsule RxNorm: 353104 2 Capsule(s) PO QPM 04/21/2018 1 07/20/2017 Inactive simvastatin 20 mg tablet RxNorm: 641339 1 Tablet(s) PO QD Take 1 tablet by mouth daily. Patient due for labwork before further refill. 04/06/20182017 Inactive simvastatin 20 mg tablet RxNorm: 235297 Tablet(s) TAKE ONE TABLET BY MOUTH DAILY 03/25/2018 06/15/2018 Inactive simvastatin 20 mg tablet RxNorm: 915441 Tablet(s) TAKE ONE TABLET BY MOUTH DAILY due for appt 12/29/2017 03/25/2018 Inactive simvastatin 20 mg tablet RxNorm: 812610 TAKE ONE TABLET BY MOUT H DAILY 09/03/2017 12/29/2017 Inactive simvastatin 20 mg tablet RxNorm: 927925 1 Tablet(s) PO QD 10/22/2016 11/18/2018 Inactive isosorbide mononitrate ER 60 mg tablet,extended release 24 h r RxNorm: 161049 1 Tablet(s) PO QD 10/22/2016 04/21/2017 Inactive isosorbide mononitrate ER 60 mg tablet,extended release 24 h r RxNorm: 391087 1 Tablet(s) PO QD 10/10/2016 10/21/2016 Inactive simvastatin 20 mg tablet RxNorm: 704200 1 Tablet(s) PO QD 10/10/2016 10/21/2016 Inactive gabapentin 400 mg capsule RxNorm: 641713 1 Capsule(s) PO QPM 201609/20/2016 Inactive Toujeo SoloStar 300 unit/mL (1.5 mL) subcutaneous insulin pe n RxNorm: 6726418 35 Unit(s) SQ QAM 07/23/2016 07/22/2016 Inactive Toujeo SoloStar 300 unit/mL (1.5 mL) subcutaneous insulin pe n RxNorm: 6710877 40 Unit(s) SQ QAM 09/01/2015 No Stop Date Active Symbicort 160 mcg-4.5 mcg/actuation HFA aerosol inhaler RxNo rm: 4859477 2 Puff(s) INH BID 08/31/2015 09/09/2015 Inactive prednisone 20 mg tablet RxNorm: 841516 1 Tablet(s) PO BID 08/29/2015 09/02/2015 Inactive albuterol sulfate 2.5 mg/3 mL (0.083 %) solution for n ebulization RxNorm: 319512 1 Unit(s) INH Q4H as needed 08/29/2015 10/09/2016 Inactive levothyroxine 75 mcg tablet RxNorm: 055227 1 Tablet(s) PO QD 201507/27/2015 Inactive levothyroxine 75 mcg tablet RxNorm: 790780 1 Tablet(s) PO QD 201511/18/2018 Inactive levothyroxine 75 mcg tablet RxNorm: 496477 1 Tablet(s) PO QD 201507/27/2015 Inactive lisinopril 20 mg-hydrochlorothiazide 25 mg tablet RxNorm: 19 7887 TAKE ONE TABLET BY MOUTH EVERY MORNING. REPLACES PLAIN LISINOPRIL 03/06/2015 04/21/2017 Inactive lisinopril 20 mg-hydrochlorothiazide 25 mg tablet RxNorm: 19 7887 TAKE ONE TABLET BY MOUTH EVERY MORNING. REPLACES PLAIN LISINOPRIL 09/08/2014 03/05/2015 Inactive allopurinol 100 mg tablet RxNorm: 512259 1 Tablet(s) PO BID 015 10/09/2016 Inactive [SAVINGS FOR NON-COVERED YULIA GS -- BIN:[id number], PCN: [id number], Group: [id number], ID# [id number], Questions: . THIS IS NOT INSURANCE.] levothyroxine 50 mcg tablet RxNorm: 615827 1 Tablet(s) PO QD 201407/26/2015 Inactive [AttnRPh: Saving apply/adjud icate RxGRP:SG20 RxBIN:[id number] RxPCN: ID#:[id number]] Zegerid 40 mg-1.1 gram capsule RxNorm: 964863 1 Capsule(s) PO QD 03/03/2014 Inactive [AttnRPh: Saving apply/adjud icate RxGRP:SG20 RxBIN:[id number] RxPCN:HT ID#:[id number]] ondansetron 8 mg disintegrating tablet RxNorm: 810655 1 Tablet(s) PO Q8H as needed for [...] 07/28/2013 Inactive gabapentin 400 mg capsule RxNorm: 949705 1 Capsule(s) PO QPM 201207/28/2013 Inactive gabapentin 400 mg capsule RxNorm: 670422 1 Capsule(s) PO QPM 201206/26/2013 Inactive lisinopril 20 mg-hydrochlorothiazide 25 mg tablet RxNorm: 82 3971 1 Tablet(s) PO QAM replaces plain lisinopril 04/28/2013 07/29/2013 Inactive gabapentin 400 mg capsule RxNorm: 664440 1 Capsule(s) PO QPM 201204/27/2013 Inactive gabapentin 400 mg capsule RxNorm: 541003 1 Capsule(s) PO QPM 201203/10/2013 Inactive gabapentin 400 mg capsule RxNorm: 497415 1 Capsule(s) PO QPM 201203/14/2013 Inactive Lantus Solostar 100 unit/mL (3 mL) Sub-Q Insulin Pen RxNorm: 991852 20 Unit(s) SQ QPM 03/11/2013 03/15/2013 Inactive Toujeo SoloStar 300 unit/mL (1.5 mL) subcutaneous insulin pe n RxNorm: 8693947 35 Unit(s) SQ QAM No Start Date Active omeprazole 20 mg capsule,delayed release RxNorm: 344384 1 Capsu le(s) PO QD No Start Date Active isosorbide mononitrate ER 60 mg tablet,extended release 24 h r RxNorm: 922094 1 Tablet(s) PO QD No Start Date Active Eliquis 5 mg tablet RxNorm: 5258165 1 Tablet(s) PO BID No Start Date Active metformin 500 mg tablet RxNorm: 815003 1 Tablet(s) PO BID No Start Da te Active levothyroxine 50 mcg tablet RxNorm: 194939 1 Tablet(s) PO QD No Start Date Active Norvasc 10 mg tablet RxNorm: 382231 1 Tablet(s) PO QHS No Start Date Active Toujeo SoloStar 300 unit/mL (1.5 mL) subcutaneous insulin pe n RxNorm: 1498736 30 Unit(s) SQ QAM No Start Date Active glimepiride 4 mg tablet RxNorm: 674711 1 Tablet(s) PO QHS No Start Date 07/26/2015 Inactive allopurinol 100 mg tablet RxNorm: 561221 1 Tablet(s) PO BID No Star t Date 08/10/2014 Inactive Lantus Solostar 100 unit/mL (3 mL) subcutaneous insulin pen RxNorm: 663159 30 Unit(s) SQ QD No Start Date 08/03/2014 Inactive Levemir FlexTouch 100 unit/mL (3 mL) subcutaneous insulin pe n RxNorm: 844878 25 Unit(s) SQ QAM No Start Date 07/23/2015 Inactive Lantus 100 unit/mL Sub-Q RxNorm: 685667 30 Unit(s) SQ QHS No Start Date 05/25/2013 Inactive Lantus Solostar 100 unit/mL (3 mL) Sub-Q Insulin Pen RxNorm: 590554 20 Unit(s) SQ QPM No Start Date 03/10/2013 Inactive OneTouch Ultra Blue Test Strip RxNorm: Use 1 rigoberto t strip three times daily to check blood sugar (Dx:E11.65) No Start Date 12/06/2018 Inactive Levemir FlexTouch 100 unit/mL (3 mL) subcutaneous insulin pe n RxNorm: 773616 30- 35 Unit(s) SQ QAM No Start Date 07/23/2015 Inactive Levemir Flexpen 100 unit/mL (3 mL) solution subcutaneo us insulin pen RxNorm: 382966 20-25 Unit(s) SQ QD No Start Date 07/28/2013 Inactive lisinopril 20 mg tablet RxNorm: 484342 1 Tablet(s) PO QD No Start D ate 10/11/2019 Inactive indomethacin ER 75 mg capsule,extended release RxNorm: 43948 2 1 Capsule(s) PO QAM No Start Date 04/27/2013 Inactive indomethacin ER 75 mg capsule,extended release RxNorm: 61774 2 1 Capsule(s) PO QD No Start Date 01/16/2015 Inactive Chlortab-4 oral RxNorm: 344227 oral No Start Date 10/11/2019 Inac tive Vitamin D3 5,000 unit tablet RxNorm: 404478 1 Tablet(s) PO QD No St art Date 08/03/2014 Inactive Levemir Flexpen 100 unit/mL (3 mL) solution subcutaneo us insulin Pen RxNorm: 906787 20 Unit(s) SQ QHS No Start Date 03/10/2013 Inactive Vytorin 10 mg-40 mg tablet RxNorm: 5941558 1/2 Tablet(s) PO QD No S tart Date 04/20/2018 Inactive oxymetazoline-menthol 0.05 % nasal spray RxNorm: 4504022 [place] COTY No Start Date 10/11/2019 Inactive Patient states he ta kes every 10 hours Toujeo SoloStar 300 unit/mL (1.5 mL) subcutaneous insulin pe n RxNorm: 2589942 35 Unit(s) SQ QAM No Start Date 07/22/2016 Inactive Lantus Solostar 100 unit/mL (3 mL) subcutaneous insulin pen RxNorm: 309406 20 Unit(s) SQ QD No Start Date 08/03/2014 Inactive aspirin 81 mg tablet RxNorm: 797269 1 Tablet(s) PO QD No Start Date 0 08/03/2014 Inactive metformin 500 mg tablet RxNorm: 230062 1 Tablet(s) PO BID No Start Date 07/28/2013 Inactive glimepiride 4 mg tablet RxNorm: 981302 1 Tablet(s) PO BID No Start Date 01/16/2015 Inactive glimepiride 4 mg tablet RxNorm: 000434 1 Tablet(s) PO QD No Start D ate 08/03/2014 Inactive levothyroxine 25 mcg tablet RxNorm: 011060 1 Tablet(s) PO QD No Sta rt Date 08/10/2014 Inactive doxycycline oral RxNorm: 55374 oral No Start Date 05/12/2019 Inac tive aspirin 81 mg tablet RxNorm: 853692 1 Tablet(s) PO QD No Start Date 0 07/21/2018 Inactive isosorbide mononitrate ER 60 mg tablet,extended release 24 h r RxNorm: 284380 1 Tablet(s) PO BID No Start Date 01/16/2015 Inactive metformin 500 mg tablet RxNorm: 407781 1 Tablet(s) PO BID No Start Date 04/27/2013 Inactive Plavix 75 mg tablet RxNorm: 242023 1 Tablet(s) PO QD No Start Date Inactive glimepiride 4 mg tablet RxNorm: 921242 1 Tablet(s) PO QPM No Start Date 02/21/2019 Inactive Vytorin 10-40 10 mg-40 mg tablet RxNorm: 9829415 1 Tablet(s) PO QHS No Start Date 08/03/2014 Inactive indomethacin 50 mg capsule RxNorm: 301668 1 Capsule(s) PO QHS No St art Date 01/16/2015 Inactive glimepiride 4 mg tablet RxNorm: 467837 1 Tablet(s) PO BID No Start Date 07/28/2013 Inactive Levemir FlexTouch 100 unit/mL (3 mL) subcutaneous insulin pe n RxNorm: 059082 20 Unit(s) SQ QD No Start Date 04/30/2015 Inactive lisinopril 20 mg tablet RxNorm: 205895 1 Tablet(s) PO BID No Start Date 04/27/2013 Inactive Lantus Solostar SubQ RxNorm: Subcutaneous No Start Date 03/15/2013 I nactive Zantac 150 mg tablet RxNorm: 004211 1 Tablet(s) PO QHS No Start Date 10/11/2019 Inactive allopurinol 300 mg tablet RxNorm: 799560 1 Tablet(s) PO QD No Start Date 08/03/2014 Inactive Fish Oil 1,000 mg capsule RxNorm: 1 Capsule(s) PO QD No Start Date 02/21/2019 Inactive indomethacin 50 mg capsule RxNorm: 999913 1 Capsule(s) PO BID No St art Date 04/20/2018 Inactive levothyroxine 50 mcg tablet RxNorm: 295295 1 Tablet(s) PO QD No Sta rt Date 08/10/2014 Inactive glimepiride 4 mg tablet RxNorm: 394193 1 Tablet(s) PO BID No Start Date 03/15/2013 Inactive indomethacin 50 mg capsule RxNorm: 869678 1 Capsule(s) PO QHS No St art Date 04/27/2013 Inactive Medication Administered No Medication Administered data Immunizations Vaccine Codes Date Status Influenza CVX: 135 04/21/2018 Complete Influenza CVX: 135 04/22/2017 Complete Results Observation Observation Code Item Item Code Result Date S ervice Location [facility] 21288 Cholesterol 209 mg/dL 09/17/2016 Unkno wn [facility] 94131 Triglyceride 111 mg/dL 09/17/2016 Unkn own [facility] 67558 HDL CHOLESTEROL 50 mg/dL 09/17/2016 U nknown [facility] 28411 Chol/HDL Ratio 4.18 ratio 09/17/2016 U nknown [facility] 47393 NON-HDL Chol 159 mg/dL 09/17/2016 Unkn own [facility] 61696 LDL Cholesterol 137 mg/dL 09/17/2016 U nknown MEAN GLUC 7697341 Calc Mean Gluc 151 mg/dL 09/17/2016 Unkn own COMPREHENSIVE METABOLIC 94303 AST 23 U/L 2016 Unknown [facility]PRE[facility] MET[facility]OL[facility] 66705 ALT 19 U/L 2016 Unknown [facility] 83568 BUN 15 mg/dL 2016 Unknown [facility] 77964 ALBUMIN 4.3 g/dL 2016 Unknown COMPREHENS[facility] MET[facility]OLIC 43083 CHLORIDE 103 mmol/L 09/17 Unknown [facility] 39065 Bili Total 0.6 mg/dL 09/17 Unknown COMPREHENSIVE METABOLIC 68896 ALK PHOS 60 U/L 2016 Unknown COMPREHENSIVE METABOLIC 03295 SODIUM 140 mmol/L 09/17 Unknown COMPREHENSIVE METABOLIC 78098 CREATININE 1.03 mg/dL 09/04 Unknown COMPREHENSIVE METABOLIC 45153 CALCIUM 9.5 mg/dL 2016 Unknown COMPREHENSIVE METABOLIC 84825 POTASSIUM 3.9 mmol/L 09/17 Unknown COMPREHENSIVE METABOLIC 62816 Total Protein 6.9 g/dL Unknown COMPREHENSIVE METABOLIC 59033 Glucose 94 mg/dL 2016 Unknown COMPREHENSIVE METABOLIC 62037 Bicarbonate 28 mmol/L 09/04 Unknown COMPREHENSIVE METABOLIC 75892 AGAP 9 mmol/L 2016 Unknown GFR CALC 2447673 GFR Non Afr Amr >60 mL/min 09/17/2016 Un known GFR CALC 4132433 GFR Afr Amr >60 mL/min 09/17/2016 Unknow n THYROID STIMULATING HORMONE 19716 TSH 4.260 uIU/mL 09/17/2016 Unknown GLYCOSYLATED HEMOGLOBIN TEST 70382 Hgb A1c 66976-2 6.9 % 0 09/17/2016 Unknown FREE T4 57234 T4 Free 1.02 ng/dL 09/17/2016 Unknown COMPLETE BLOOD COUNT [id number] WBC 8.6 10e9/L 07/26/19 16 Unknown COMPLETE BLOOD COUNT [id number] RBC 4.86 10e12/L 2015 Unknown COMPLETE BLOOD COUNT 9091005 HGB 14.6 g/dL 6 Unknown COMPLETE BLOOD COUNT 0860296 HCT DET 43.1 % 6 Unknown COMPLETE BLOOD COUNT 5009623 MCV 88.7 fL 6 Unknown COMPLETE BLOOD COUNT 1394465 MCH 30.0 pg 6 Unknown COMPLETE BLOOD COUNT [id number] MCHC 33.9 g/dL 6 Unknown COMPLETE BLOOD COUNT [id number] PLT 267 10e9/L 07/26/19 16 Unknown COMPLETE BLOOD COUNT 8730707 MPV 11.5 fL 6 Unknown COMPLETE BLOOD COUNT 7584784 SAM % 64.8 % 6 Unknown COMPLETE BLOOD COUNT 0559895 LY % 16.8 % 6 Unknown COMPLETE BLOOD COUNT 8109755 MON % 12.5 % 6 Unknown COMPLETE BLOOD COUNT 0312849 EOS % 5.6 % 6 Unknown COMPLETE BLOOD COUNT 5182984 BASO % 0.3 % 6 Unknown COMPLETE BLOOD COUNT 4384124 RDW 13.4 % 6 Unknown COMPLETE BLOOD COUNT 1668508 ABS SAM 5.57 10e9/L 016 Unknown COMPLETE BLOOD COUNT 9676825 ABS LYMPH 1.44 10e9/L 016 Unknown COMPLETE BLOOD COUNT 1928909 ABS MONO 1.08 10e9/L 016 Unknown COMPLETE BLOOD COUNT [id number] ABS EOS 0.48 10e9/L 016 Unknown COMPLETE BLOOD COUNT [id number] ABS BASO 0.03 10e9/L 016 Unknown COMPLETE BLOOD COUNT 8558856 RDW-SD 42.9 fL 6 Unknown PSA EQUIMOLAR MATT 65062 PSA EQ 0.78 NG/ML 6 Unknown THYROID STIMULATING HORMONE 57169 TSH 5.292 uIU/ML 07/26/2015 Unknown GLYCOSYLATED HEMOGLOBIN TEST 40061 A1C HPLC 07657-7 7.0 % 0 07/26/2015 Unknown GFR CALC 2581353 GFR AA >60 ML/MIN 07/26/2015 Unknown GFR CALC 1888171 GFR NON-AA >60 ML/MIN 07/26/2015 Unknown [facility] 53873 HDL TEST 64 MG/DL 07/26/2015 Unknown [facility] 75762 TRIG 58 MG/DL 07/26/2015 Unknown [facility] GROUP 00013 TEST LDL 49 MG/DL 07/26/2015 Unknown [facility] 49872 CHOL 125 MG/DL 07/26/2015 Unknown [facility] 97202 RCHOL/HDL 1.95 RATIO 07/26/2015 Unknow n [facility] 04671 NON-HDL CH 61 MG/DL 07/26/2015 Unknow n COMPREHENSIVE METABOLIC 76942 AST 25 U/L 2015 Unknown COMPREHENSIVE METABOLIC 25680 ALT 23 IU/L 2015 Unknown COMPREHENSIVE METABOLIC 83741 BUN 18 MG/DL 2015 Unknown COMPREHENSIVE METABOLIC 32350 ALBUMIN 4.6 GM/DL 2015 Unknown COMPREHENSIVE METABOLIC 94157 CHLORIDE 100 MMOL/L 07/26 Unknown COMPREHENSIVE METABOLIC 12577 BILI TOT 0.5 MG/DL 2015 Unknown COMPREHENSIVE METABOLIC 67391 ALK PHOS 49 U/L 2015 Unknown COMPREHENSIVE METABOLIC 05020 SODIUM 137 MMOL/L 07/26 Unknown COMPREHENSIVE METABOLIC 02862 CREATININE 1.06 MG/DL 07/08 Unknown COMPREHENSIVE METABOLIC 27076 CALCIUM 9.5 MG/DL 2015 Unknown COMPREHENSIVE METABOLIC 37569 POTASSIUM 4.5 MMOL/L 07/26 Unknown COMPREHENSIVE METABOLIC 31118 PROT TOT 6.5 GM/DL 2015 Unknown COMPREHENSIVE METABOLIC 24380 Glucose 109 MG/DL 2015 Unknown COMPREHENSIVE METABOLIC 08724 BICARB 29 MMOL/L 2015 Unknown COMPREHENSIVE METABOLIC 00520 ANION GAP 8 MEQ/L 2015 Unknown FREE T4 68623 FREE T4 1.11 NG/DL 07/26/2015 Unknown CULTURE & SENSITIVITY 52051 PROTEIN UR NEG 015 Unknown [facility] SENSITIVITY 87536 HEMGLBN UR TR 015 Unknown [facility] & SENSITIVITY 66982 GLUCOSE UR NEG 015 Unknown [facility] SENSITIVITY 03318 KETONES UR NEG 015 Unknown CULTURE & SENSITIVITY 52897 PH U 6.5 01/25/20 15 Unknown CULTURE & SENSITIVITY 98046 SP GR U 1.013 01/25/20 15 Unknown CULTURE & SENSITIVITY 72835 BILRUBN UR NEG 015 Unknown CULTURE & SENSITIVITY 85621 LEUKO UR NEG 01/25/20 15 Unknown CULTURE & SENSITIVITY 89900 NITRITE UR NEG 015 Unknown MICR CUL? [id number] SP TO JOHANA? NO 01/24/2015 Unknown MICR CUL? 5148322 APPEAR UR NORMAL 01/24/2015 Unknown MICR CUL? 7306651 RBC/uL 2.2 01/24/2015 Unknown MICR CUL? 8358637 WBC/uL 2.8 01/24/2015 Unknown MICR CUL? 6614546 SQ EPI/uL 1.0 01/24/2015 Unknown MICR CUL? 3869801 HYALCST/uL 0.25 01/24/2015 Unknown MICR CUL? 9480429 WBC /HPF 1 01/24/2015 Unknown MICR CUL? 5552582 RBC /HPF 0 01/24/2015 Unknown GLYCOSYLATED HEMOGLOBIN TEST 37929 A1C HPLC 59914-7 6.6 % 0 01/17/2015 Unknown COMPLETE BLOOD COUNT 6876766 WBC 10.1 10e9/L 015 Unknown COMPLETE BLOOD COUNT 5128270 RBC 4.60 10e12/L 2014 Unknown COMPLETE BLOOD COUNT 8263890 HGB 14.0 g/dL 5 Unknown COMPLETE BLOOD COUNT 8852189 HCT DET 39.9 % 5 Unknown COMPLETE BLOOD COUNT 3393587 MCV 86.7 fL 5 Unknown COMPLETE BLOOD COUNT 6489905 MCH 30.4 pg 5 Unknown COMPLETE BLOOD COUNT 4142662 MCHC 35.1 g/dL 5 Unknown COMPLETE BLOOD COUNT 9478901 PLT 252 10e9/L 01/18/20 15 Unknown COMPLETE BLOOD COUNT 7357011 MPV 11.4 fL 5 Unknown COMPLETE BLOOD COUNT 5225829 SAM % 72.9 % 5 Unknown COMPLETE BLOOD COUNT 4927102 LY % 13.6 % 5 Unknown COMPLETE BLOOD COUNT 8935302 MON % 10.2 % 5 Unknown COMPLETE BLOOD COUNT 1492745 EOS % 3.1 % 5 Unknown COMPLETE BLOOD COUNT [id number] BASO % 0.2 % 5 Unknown COMPLETE BLOOD COUNT 9345930 RDW 13.6 % 5 Unknown COMPLETE BLOOD COUNT 7001815 ABS SAM 7.36 10e9/L 015 Unknown COMPLETE BLOOD COUNT 8676146 ABS LYMPH 1.37 10e9/L 015 Unknown COMPLETE BLOOD COUNT 3328339 ABS MONO 1.03 10e9/L 015 Unknown COMPLETE BLOOD COUNT 7959876 ABS EOS 0.31 10e9/L 015 Unknown COMPLETE BLOOD COUNT 8318192 ABS BASO 0.02 10e9/L 015 Unknown COMPLETE BLOOD COUNT 8111471 RDW-SD 42.4 fL 5 Unknown GFR CALC 7171248 GFR AA 51.0L ML/MIN 01/17/2015 Unknow n GFR CALC 4577530 GFR NON-AA 42.0L ML/MIN 01/17/2015 Unkno wn FREE T4 49119 FREE T4 1.30 NG/DL 01/17/2015 Unknown THYROID STIMULATING HORMONE 69513 TSH 4.029 uIU/ML 01/17/2015 Unknown COMPREHENSIVE METABOLIC 39208 AST 28 U/L 2014 Unknown COMPREHENSIVE METABOLIC 18706 ALT 25 IU/L 2014 Unknown COMPREHENSIVE METABOLIC 12334 BUN 21 MG/DL 2014 Unknown COMPREHENSIVE METABOLIC 97983 ALBUMIN 4.7 GM/DL 2014 Unknown COMPREHENSIVE METABOLIC 06280 CHLORIDE 102 MMOL/L 01/17 Unknown COMPREHENSIVE METABOLIC 89379 BILI TOT 0.6 MG/DL 2014 Unknown COMPREHENSIVE METABOLIC 67936 ALK PHOS 44 U/L 2014 Unknown COMPREHENSIVE METABOLIC 99318 SODIUM 137 MMOL/L 01/17 Unknown COMPREHENSIVE METABOLIC 62588 CREATININE 1.62 MG/DL 01/04 Unknown COMPREHENSIVE METABOLIC 00485 CALCIUM 9.7 MG/DL 2014 Unknown COMPREHENSIVE METABOLIC 96788 POTASSIUM 4.5 MMOL/L 01/17 Unknown COMPREHENSIVE METABOLIC 66286 PROT TOT 6.5 GM/DL 2014 Unknown COMPREHENSIVE METABOLIC 26413 Glucose 136 MG/DL 2014 Unknown COMPREHENSIVE METABOLIC 43849 BICARB 24 MMOL/L 2014 Unknown COMPREHENSIVE METABOLIC 39715 ANION GAP 11 MEQ/L 2014 Unknown VITAMIN B 12 40382 VIT B 12 482 PG/ML 01/17/2015 Unknow n URIC ACID 77333 URIC ACID 8.5 MG/DL 08/09/2014 Unknown COMPREHENSIVE METABOLIC 07253 AST 27 U/L 2014 Unknown COMPREHENSIVE METABOLIC 72423 ALT 26 IU/L 2014 Unknown COMPREHENSIVE METABOLIC 58422 BUN 17 MG/DL 2014 Unknown COMPREHENSIVE METABOLIC 92148 ALBUMIN 5.0 GM/DL 2014 Unknown COMPREHENSIVE METABOLIC 77001 CHLORIDE 101 MMOL/L 08/09 Unknown COMPREHENSIVE METABOLIC 15332 BILI TOT 0.7 MG/DL 2014 Unknown COMPREHENSIVE METABOLIC 13723 ALK PHOS 53 U/L 2014 Unknown COMPREHENSIVE METABOLIC 70591 SODIUM 136 MMOL/L 08/09 Unknown COMPREHENSIVE METABOLIC 99531 CREATININE 1.14 MG/DL 09/2014 Unknown COMPREHENSIVE METABOLIC 05324 CALCIUM 9.8 MG/DL 2014 Unknown COMPREHENSIVE METABOLIC 70854 POTASSIUM 4.1 MMOL/L 08/09 Unknown COMPREHENSIVE METABOLIC 31813 PROT TOT 7.5 GM/DL 2014 Unknown COMPREHENSIVE METABOLIC 81903 Glucose 110 MG/DL 2014 Unknown COMPREHENSIVE METABOLIC 76901 BICARB 30 MMOL/L 2014 Unknown COMPREHENSIVE METABOLIC 70893 ANION GAP 5 MEQ/L 2014 Unknown GFR CALC 7208788 GFR AA >60 ML/MIN 08/09/2014 Unknown GFR CALC 1962901 GFR NON-AA >60 ML/MIN 08/09/2014 Unknown FREE T4 41992 FREE T4 1.14 NG/DL 08/09/2014 Unknown GLYCOSYLATED HEMOGLOBIN TEST 60563 A1C HPLC 65615-9 6.8 % 0 08/09/2014 Unknown COMPLETE BLOOD COUNT 3864116 WBC 5.9 10e9/L 08/09/19 15 Unknown COMPLETE BLOOD COUNT [id number] RBC 5.04 10e12/L 2014 Unknown COMPLETE BLOOD COUNT [id number] HGB 15.2 g/dL 5 Unknown COMPLETE BLOOD COUNT [id number] HCT DET 44.3 % 5 Unknown COMPLETE BLOOD COUNT [id number] MCV 87.9 fL 5 Unknown COMPLETE BLOOD COUNT [id number] MCH 30.2 pg 5 Unknown COMPLETE BLOOD COUNT [id number] MCHC 34.3 g/dL 5 Unknown COMPLETE BLOOD COUNT [id number] PLT 262 10e9/L 08/09/19 15 Unknown COMPLETE BLOOD COUNT [id number] MPV 10.9 fL 5 Unknown COMPLETE BLOOD COUNT [id number] SAM % 58.7 % 5 Unknown COMPLETE BLOOD COUNT 4813429 LY % 21.5 % 5 Unknown COMPLETE BLOOD COUNT [id number] MON % 14.0 % 5 Unknown COMPLETE BLOOD COUNT [id number] EOS % 5.3 % 5 Unknown COMPLETE BLOOD COUNT [id number] BASO % 0.5 % 5 Unknown COMPLETE BLOOD COUNT [id number] RDW 13.1 % 5 Unknown COMPLETE BLOOD COUNT [id number] ABS SAM 3.46 10e9/L 015 Unknown COMPLETE BLOOD COUNT [id number] ABS LYMPH 1.27 10e9/L 015 Unknown COMPLETE BLOOD COUNT [id number] ABS MONO 0.83 10e9/L 015 Unknown COMPLETE BLOOD COUNT [id number] ABS EOS 0.31 10e9/L 015 Unknown COMPLETE BLOOD COUNT [id number] ABS BASO 0.03 10e9/L 015 Unknown COMPLETE BLOOD COUNT [id number] RDW-SD 41.2 fL 5 Unknown THYROID STIMULATING HORMONE 63146 TSH 5.395 uIU/ML 08/09/2014 Unknown LIPID GROUP 79270 HDL TEST 52 MG/DL 08/09/2014 Unknown [facility] GROUP 81458 TRIG 113 MG/DL 08/09/2014 Unknown L[facility] GROUP 47304 TEST LDL 158 MG/DL 08/09/2014 Unknown L[facility] GROUP 23342 CHOL 233 MG/DL 08/09/2014 Unknown LIPID GROUP 96571 RCHOL/HDL 4.48 RATIO 08/09/2014 Unknow n LIPID GROUP 97411 NON-HDL CH 181 MG/DL 08/09/2014 Unknow n COMPLETE BLOOD COUNT [id number] WBC 6.8 10e9/L 09/09/19 14 Unknown COMPLETE BLOOD COUNT [id number] RBC 5.18 10e12/L 2013 Unknown COMPLETE BLOOD COUNT [id number] HGB 15.2 g/dL 4 Unknown COMPLETE BLOOD COUNT [id number] HCT DET 44.7 % 4 Unknown COMPLETE BLOOD COUNT [id number] MCV 86.3 fL 4 Unknown COMPLETE BLOOD COUNT [id number] MCH 29.3 pg 4 Unknown COMPLETE BLOOD COUNT [id number] MCHC 34.0 g/dL 4 Unknown COMPLETE BLOOD COUNT [id number] PLT 236 10e9/L 09/09/19 14 Unknown COMPLETE BLOOD COUNT [id number] MPV 11.0 fL 4 Unknown COMPLETE BLOOD COUNT [id number] SAM % 58.2 % 4 Unknown COMPLETE BLOOD COUNT 1841933 LY % 21.9 % 4 Unknown COMPLETE BLOOD COUNT [id number] MON % 12.5 % 4 Unknown COMPLETE BLOOD COUNT [id number] EOS % 7.3 % 4 Unknown COMPLETE BLOOD COUNT [id number] BASO % 0.1 % 4 Unknown COMPLETE BLOOD COUNT [id number] RDW 13.6 % 4 Unknown COMPLETE BLOOD COUNT [id number] ABS SAM 3.96 10e9/L 014 Unknown COMPLETE BLOOD COUNT [id number] ABS LYMPH 1.49 10e9/L 014 Unknown COMPLETE BLOOD COUNT [id number] ABS MONO 0.85 10e9/L 014 Unknown COMPLETE BLOOD COUNT [id number] ABS EOS 0.50 10e9/L 014 Unknown COMPLETE BLOOD COUNT [id number] ABS BASO 0.01 10e9/L 014 Unknown COMPLETE BLOOD COUNT [id number] RDW-SD 42.3 fL 4 Unknown COMPREHENSIVE METABOLIC 06141 AST 27 U/L 2013 Unknown COMPREHENSIVE METABOLIC 34897 ALT 30 IU/L 2013 Unknown COMPREHENSIVE METABOLIC 03599 BUN 16 MG/DL 2013 Unknown COMPREHENSIVE METABOLIC 25349 ALBUMIN 4.9 GM/DL 2013 Unknown COMPREHENSIVE METABOLIC 45875 CHLORIDE 99 MMOL/L 2013 Unknown COMPREHENSIVE METABOLIC 67364 BILI TOT 0.7 MG/DL 2013 Unknown COMPREHENSIVE METABOLIC 36093 ALK PHOS 53 U/L 2013 Unknown COMPREHENSIVE METABOLIC 48915 SODIUM 137 MMOL/L 09/08 Unknown COMPREHENSIVE METABOLIC 98973 CREATININE 1.01 MG/DL 11/2013 Unknown COMPREHENSIVE METABOLIC 88843 CALCIUM 10.0 MG/DL 09/08 Unknown COMPREHENSIVE METABOLIC 31240 POTASSIUM 4.4 MMOL/L 09/08 Unknown COMPREHENSIVE METABOLIC 44175 PROT TOT 7.1 GM/DL 2013 Unknown COMPREHENSIVE METABOLIC 96152 Glucose 148 MG/DL 2013 Unknown COMPREHENSIVE METABOLIC 26637 BICARB 30 MMOL/L 2013 Unknown COMPREHENSIVE METABOLIC 97707 ANION GAP 8 MEQ/L 2013 Unknown GFR CALC 4859990 GFR AA >60 ML/MIN 09/08/2013 Unknown GFR CALC 2759667 GFR NON-AA >60 ML/MIN 09/08/2013 Unknown FREE T4 88225 FREE T4 1.08 NG/DL 09/08/2013 Unknown GLYCOSYLATED HEMOGLOBIN TEST 80774 A1C HPLC 07834-8 7.3 % 0 09/08/2013 Unknown THYROID STIMULATING HORMONE 35901 TSH 5.454 uIU/ML 09/08/2013 Unknown LIPID GROUP 31175 HDL TEST 59 MG/DL 09/08/2013 Unknown LIPID GROUP 70593 TRIG 92 MG/DL 09/08/2013 Unknown LIPID GROUP 21652 TEST LDL 83 MG/DL 09/08/2013 Unknown LIPID GROUP 46521 CHOL 160 MG/DL 09/08/2013 Unknown LIPID GROUP 15278 RCHOL/HDL 2.71 RATIO 09/08/2013 Unknow n VITAMIN B 12 FOLIC ACID 26262|61759 VIT B 12 467 PG/ML 12/2012 Unknown VITAMIN B 12 FOLIC ACID 60314|55579 FOLIC ACID 12.2 NG/ML Unknown VITAMIN B 12 FOLIC ACID 09906|56703 VIT B 12 467 PG/ML 12/2012 Unknown THYROID STIMULATING HORMONE 27187 TSH 4.557 uIU/ML 03/12/2013 Unknown HEMOGLOBIN A1C (GLYCOSYLATED) 2471662 A1C HPLC 13609-2 7.6 % 03/12/2013 Unknown VITAMIN D TOTAL (25 HYDROXY) 91541 VIT D TOTL 17 NG/ML 03/12/2013 Unknown FREE T4 02991 FREE T4 1.07 NG/DL 03/12/2013 Unknown URIC ACID 70218 URIC ACID 5.2 MG/DL 03/12/2013 Unknown Procedures Procedure Codes Date THER/PROPH/DIAG INJ SC/IM CPT-4: 03685 05/13/2019 TRIAMCINOLONE ACET INJ NOS CPT-4: J3301 05/13/2019 DEXAMETHASONE SODIUM PHOS CPT-4: J1100 05/13/2019 THER/PROPH/DIAG INJ SC/IM CPT-4: 02499 02/22/2019 TRIAMCINOLONE ACET INJ NOS CPT-4: J3301 02/22/2019 FLU VACC PRSV FREE INC ANTIG 65 AND OLDER CPT-4: 22934 04/21/2018 ADMIN INFLUENZA VIRUS VAC CPT-4: G0008 04/21/2018 PRESCRIP TRANSMIT VIA ERX SY CPT-4: G8553 04/21/2018 DESTRUCT PREMALG LESION (Cryosurgery) CPT-4: 96340 FLU VACC PRSV FREE INC ANTIG 65 AND OLDER CPT-4: 45655 04/22/2017 ADMIN INFLUENZA VIRUS VAC CPT-4: G0008 04/22/2017 PRESCRIP TRANSMIT VIA ERX SY CPT-4: G8553 10/10/2016 PRESCRIP TRANSMIT VIA ERX SY CPT-4: G8553 08/29/2015 ROUTINE VENIPUNCTURE CPT-4: 66247 07/26/2015 ASSAY OF FREE THYROXINE CPT-4: 63294 07/26/2015 ASSAY THYROID STIM HORMONE CPT-4: 78280 07/26/2015 COMPREHEN METABOLIC PANEL CPT-4: 46270 07/26/2015 COMPLETE CBC W/AUTO DIFF WBC CPT-4: 27324 07/26/2015 LIPID PANEL CPT-4: 19225 07/26/2015 ASSAY OF PSA TOTAL CPT-4: 95671 07/26/2015 A1C HPLC CPT-4: 13875 07/26/2015 ROUTINE VENIPUNCTURE CPT-4: 92108 01/17/2015 ASSAY OF FREE THYROXINE CPT-4: 24957 01/17/2015 ASSAY THYROID STIM HORMONE CPT-4: 57981 01/17/2015 COMPREHEN METABOLIC PANEL CPT-4: 98791 01/17/2015 COMPLETE CBC W/AUTO DIFF WBC CPT-4: 77615 01/17/2015 A1C HPLC CPT-4: 99527 01/17/2015 VITAMIN B-12 CPT-4: 08082 01/17/2015 PPPS, subseq visit CPT-4: G0439 08/04/2014 PRESCRIP TRANSMIT VIA ERX SY CPT-4: G8553 02/18/2014 FLUZONE, 5ML (Medicare) CPT-4: Q2038 07/22/2013 ADMIN INFLUENZA VIRUS VAC CPT-4: G0008 07/22/2013 PRESCRIP TRANSMIT VIA ERX SY CPT-4: G8553 04/28/2013 ROUTINE VENIPUNCTURE CPT-4: 80519 03/12/2013 VITAMIN D TOTAL (25 HYDROXY) CPT-4: 64069 03/12/2013 VITAMIN B 12 FOLIC ACID CPT-4: 46405|82008 03/12/2013 A1C GLYCOSYLATED HEMOGLOBIN TEST CPT-4: 57122 013 ASSAY OF BLOOD/URIC ACID CPT-4: 89966 03/12/2013 ASSAY OF FREE THYROXINE CPT-4: 14776 03/12/2013 ASSAY THYROID STIM HORMONE CPT-4: 88616 03/12/2013 CUR TOBACCO NON-USER CPT-4: G8457 03/11/2013 PRESCRIP TRANSMIT VIA ERX SY CPT-4: G8553 03/11/2013 Vital Signs Date Vital 10/20/2019 Blood Pressure 1: 142/80 Code: 8480-6 [...] 1: 156/70 Code: 8480-6 BMI: 35.0 Code: 60427-1 Heart Rate 1: 68 bpm Height: 5'10" Respiratory Rate: 20 bpm SpO2: 95% Tempera ture: 36.5 (C) / 97.7 (F) Weight: 244 lbs 04/21/2018 Blood Pressure 1: 124/80 Code: 8480-6 BMI: 34.4 Code: 51861-7 Heart Rate 1: 80 bpm Height: 5'10" Respiratory Rate: 20 bpm SpO2: 96% Tempera ture: 37.0 (C) / 98.6 (F) Weight: 240 lbs 01/06/2018 Blood Pressure 1: 138/82 Code: 8480-6 BMI: 33.9 Code: 51683-4 Heart Rate 1: 96 bpm Height: 5'10" Respiratory Rate: 24 bpm SpO2: 98% Tempera ture: 35.9 (C) / 96.6 (F) Weight: 236 lbs 10/22/2017 Blood Pressure 1: 144/70 Code: 8480-6 BMI: 34.7 Code: 68568-8 Heart Rate 1: 72 bpm Height: 5'10" Respiratory Rate: 20 bpm SpO2: 96% Tempera ture: 36.9 (C) / 98.4 (F) Weight: 242 lbs 04/22/2017 Blood Pressure 1: 146/82 Code: 8480-6 BMI: 32.9 Code: 31963-4 Heart Rate 1: 104 bpm Height: 5'10" Respiratory Rate: 20 bpm SpO2: 95% Tempera ture: 36.9 (C) / 98.5 (F) Weight: 229 lbs 10/10/2016 Blood Pressure 1: 124/64 Code: 8480-6 BMI: 32.9 Code: 19198-0 Heart Rate 1: 64 bpm Height: 5'10" [...] 1: 146/90 Code: 8480-6 BMI: 34.1 Code: 48987-8 Heart Rate 1: 80 bpm Height: 5'10" Respiratory Rate: 20 bpm Temperature: 36 .8 (C) / 98.2 (F) Weight: 238 lbs 01/17/2015 Blood Pressure 1: 116/60 Code: 8480-6 BMI: 32.7 Code: 27810-8 Heart Rate 1: 84 bpm Height: 5'10" Respiratory Rate: 20 bpm Temperature: 36 .7 (C) / 98.0 (F) Weight: 228 lbs 09/29/2014 Blood Pressure 1: 136/78 Code: 8480-6 BMI: 33.9 Code: 95882-3 Heart Rate 1: 80 bpm Height: 5'10" Respiratory Rate: 20 bpm Temperature: 36 .6 (C) / 97.9 (F) Weight: 236 lbs 08/04/2014 Blood Pressure 1: 132/70 Code: 8480-6 BMI: 32.9 Code: 37844-4 Heart Rate 1: 72 bpm Height: 5'10" Respiratory Rate: 20 bpm Temperature: 36 .7 (C) / 98.0 (F) Weight: 229 lbs 02/18/2014 Blood Pressure 1: 124/82 Code: 8480-6 Heart Rate 1: 82 bpm Respiratory Rate: 18 bpm Temperature: 36.4 (C) / 97.5 (F) Weight: 232 lbs 07/29/2013 Blood Pressure 1: 146/80 Code: 8480-6 BMI: 34.1 Code: 49129-9 Heart Rate 1: 64 bpm Height: 5'10" Respiratory Rate: 20 bpm Temperature: 36 .9 (C) / 98.5 (F) Weight: 238 lbs 05/26/2013 Blood Pressure 1: 142/90 Code: 8480-6 BMI: 34.0 Code: 96043-5 Heart Rate 1: 84 bpm Height: 5'10" Respiratory Rate: 20 bpm Temperature: 36 .7 (C) / 98.0 (F) Weight: 237 lbs 04/28/2013 Blood Pressure 1: 118/78 Code: 8480-6 BMI: 32.9 Code: 56307-0 Heart Rate 1: 74 bpm Height: 5'10" Respiratory Rate: 20 bpm Temperature: 36 .1 (C) / 97.0 (F) Weight: 229 lbs 03/11/2013 Blood Pressure 1: 146/80 Code: 8480-6 BMI: 31.5 Code: 88456-6 Heart Rate 1: 80 bpm Height: 6' Respiratory Rate: 20 bpm Temperature: 36 .8 (C) / 98.2 (F) Weight: 232 lbs Functional Status No Functional Status data Reason For Visit Reason For Visit Effective Dates Notes diabetes mellitus 10/20/2019 follow up 10/12/2019 cough [...] care Encounters Encounter Performer Location Codes Date ([id number]) OFFICE/OUTPATIENT VISIT EST Diagnosis: Chronic obstructive pulmonary disease, unspecified[ICD10: J44.9] Diagnosis: DM w/o complication type II, uncontrolled[ICD10: E11.65] Diagnosis: Edema[ICD10: R60.9] Xiomara BETTENCOURT [place] CPT-4: 01624 10/20/2019 ([id number]) OFFICE/OUTPATIENT VISIT EST Diagnosis: Other dyspnea and respiratory abnormality[ICD10: R06.09] Diagnosis: Obstructive sleep apnea[ICD10: G47.33] Diagnosis: Hypotension[ICD10: I95.9] Xiomara Bettencourt [facility] CPT -4: 69825 10/12/2019 ([id number]) OFFICE/OUTPATIENT VISIT EST Diagnosis: Upper respiratory infection[ICD10: J06.9] Pennie BETTENCOURT [place] CPT-4: 47705 06/02/2019 ([id number]) OFFICE/OUTPATIENT VISIT EST Diagnosis: Sinusitis[ICD10: J32.9] Diagnosis: Allergic rhinitis[ICD10: J30.9] Pennie BETTENCOURT DO [facility] CPT-4: 55533 05/13/2019 ([id number]) OFFICE/OUTPATIENT VISIT EST Diagnosis: Pneumonia[ICD10: J18.9] Pennie ROSENBAUM DO [facility] CPT-4: 17238 04/26/2019 ([id number]) OFFICE/OUTPATIENT VISIT EST Diagnosis: Acute sinusitis, unspecified[ICD10: J01.90] Pennie BETTENCOURT DO [facility] CPT-4: 06824 02/22/2019 ([id number]) OFFICE/OUTPATIENT VISIT EST Diagnosis: Cervicalgia[ICD10: M54.2] Xiomara MAGALLON [facility] CPT-4: 65332 11/25/2018 ([id number]) OFFICE/OUTPATIENT VISIT EST Diagnosis: Acute sinusitis, unspecified[ICD10: J01.90] Diagnosis: Myalgia, unspecified site[ICD10: M79.10] Diagnosis: Cervicalgia[ICD10: M54.2] Xiomara MAGALLON [facility] CPT-4: 15572 11/19/2018 ([id number]) OFFICE/OUTPATIENT VISIT EST Diagnosis: Low back pain[ICD10: M54.5] Diagnosis: Essential (primary) hypertension[ICD10: I10] Diagnosis: 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, 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] Diagnosis: Paroxysmal atrial fibrillation[ICD10: I48.0] Xiomara BETTENCOURT DO [facility] CPT-4: 46238 07/22/2018 ([id number]) OFFICE/OUTPATIENT VISIT EST Diagnosis: Type 2 diabetes mellitus with diabetic neuropathy, unspecified[ICD10: E11.40] Diagnosis: Hyperlipidemia, unspecified[ICD10: E78.5] Diagnosis: Essential (primary) hypertension[ICD10: I10] Diagnosis: Chronic kidney disease, stage 1[ICD10: N18.1] Diagnosis: Benign prostatic hyperplasia with lower urinary tract symptoms[ICD10: N40.1] Diagnosis: FLU VACCINE[ICD10: Z23] Xiomara Bettencourt XIOMARA Elvia ROSENBAUM [facility] CPT-4: 50084 04/21/2018 OFFICE/OUTPATIENT VISIT EST Diagnosis: Type 2 diabetes mellitus with hyperglycemia[ICD10: E11.65] Diagnosis: Essential (primary) hypertension[ICD10: I10] Diagnosis: Mixed hyperlipidemia[ICD10: E78.2] Diagnosis: Other fatigue[ICD10: R53.83] Pennie HANLINE [facility]phineEdvin [facility] CPT-4: 82158 01/06/2018 ([id number]) OFFICE/OUTPATIENT VISIT EST Diagnosis: Type 2 diabetes mellitus with diabetic neuropathy, unspecified[ICD10: E11.40] Diagnosis: Essential (primary) hypertension[ICD10: I10] Diagnosis: Pain in right thigh[ICD10: M79.651] Diagnosis: Pain in left leg[ICD10: M79.605] Diagnosis: Localized swelling, mass and lump, left lower limb[ICD10: R22.42] Diagnosis: OSTEOARTHRISIS MULTI SITES[ICD10: M19.90] Diagnosis: FLU VACCINE[ICD10: Z23] Xiomara Renonelson LARA DelphineEdvin [facility] CPT-4: 70711 04/22/2017 ([id number]) OFFICE/OUTPATIENT VISIT EST Diagnosis: Essential (primary) hypertension[ICD10: I10] Diagnosis: Type 2 diabetes mellitus with hyperglycemia[ICD10: E11.65] Diagnosis: Angina pectoris, unspecified[ICD10: I20.9] Xiomara LARA DelphineEdvin [facility] CPT-4: 11483 10/10/2016 ([id number]) OFFICE/OUTPATIENT VISIT EST Diagnosis: Cough[ICD10: R05] Diagnosis: Wheezing[ICD10: R06.2] Diagnosis: Chronic obstructive pulmonary disease, unspecified[ICD10: J44.9] Shannan Gan [facility] CPT-4: 72892 08/31/2015 OFFICE/OUTPATIENT VISIT EST Diagnosis: Acute bronchitis, unspecified[ICD10: J20.9] Diagnosis: Wheezing[ICD10: R06.2] Kelsie [facility] CPT-4: 13632 08/29/2015 ([id number]) OFFICE/OUTPATIENT VISIT EST Diagnosis: Type 2 diabetes mellitus with diabetic neuropathy, unspecified[ICD10: E11.40] Diagnosis: Hyperlipidemia, unspecified[ICD10: E78.5] Diagnosis: Essential (primary) hypertension[ICD10: I10] Diagnosis: Encounter for general adult medical examination without abnormal findings[ICD10: Z00.00] Xiomara BETTENCOURT [facility] CPT-4: 47107 07/26/2015 OFFICE/OUTPATIENT VISIT EST Diagnosis: Type 2 diabetes mellitus with hyperglycemia[ICD10: E11.65] Diagnosis: Unspecified osteoarthritis, unspecified site[ICD10: M19.90] Diagnosis: Other instability, right knee[ICD10: M25.361] Kelsie BETTENCOURT DO [facility] CPT-4: 37083 07/24/2015 ([id number]) OFFICE/OUTPATIENT VISIT EST Diagnosis: Pain in leg, unspecified[ICD10: M79.606] Diagnosis: Type 2 diabetes mellitus with diabetic neuropathy, unspecified[ICD10: E11.40] Xiomara BETTENCOURT [facility] CPT-4: 85482 05/01/2015 ([id number]) OFFICE/OUTPATIENT VISIT EST Diagnosis: MALAISE AND FATIGUE[ICD9: 780.79] Diagnosis: 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, 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] Diagnosis: CAD[ICD9: 414.00] Diagnosis: ANEMIA NOS[ICD9: 285.9] Xiomara ROSENBAUM [facility] CPT-4: 61953 01/17/2015 ([id number]) OFFICE/OUTPATIENT VISIT EST Diagnosis: Skin lesion[ICD9: 709.9] Xiomara GENAO [facility] CPT-4: 64064 09/29/2014 OFFICE/OUTPATIENT VISIT EST Diagnosis: GASTROENTERITIS[ICD9: 558.9] Diagnosis: GERD[ICD9: 530.81] Kelsie BETTENCOURT DO [facility] CPT-4: 64072 02/18/2014 ([id number]) OFFICE/OUTPATIENT VISIT EST Diagnosis: 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I, UNCONTROLLED[ICD9: 250.02] Xiomara BETTENCOURT [facility] CPT-4: 92608 07/29/2013 ([id number]) OFFICE/OUTPATIENT VISIT EST Diagnosis: FLU VACCINE[ICD9: V04.81] Xiomara MAGALLON [facility] CPT-4: 53994 07/22/2013 ([id number]) OFFICE/OUTPATIENT VISIT EST Diagnosis: 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I, UNCONTROLLED[ICD9: 250.02] Diagnosis: HYPERTENSION[ICD9: 401.9] Xiomara MAGALLON [facility] CPT-4: 91685 05/26/2013 ([id number]) OFFICE/OUTPATIENT VISIT EST Diagnosis: MONONEURITIS[ICD9: 355.9] Diagnosis: RESTLESS LEGS SYNDROME[ICD9: 333.94] Diagnosis: HYPERTENSION[ICD9: 401.9] Diagnosis: CAD[ICD9: 414.00] Diagnosis: Weakness[ICD9: 780.79] Xiomara Dolan [facility] CPT-4: 73337 04/28/2013 ([id number]) OFFICE/OUTPATIENT VISIT EST Diagnosis: 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[ICD9: 250.01] Diagnosis: MONONEURITIS[ICD9: 355.9] Diagnosis: HYPERLIPIDEMIA NEC/NOS[ICD9: 272.4] Diagnosis: CAD[ICD9: 414.00] Xiomara BETTENCOURT [facility] CPT-4: 53880 03/12/2013 OFFICE/OUTPATIENT VISIT NEW Diagnosis: CAD[ICD9: 414.00] Diagnosis: HYPERLIPIDEMIA NEC/NOS[ICD9: 272.4] Diagnosis: HYPERTENSION[ICD9: 401.9] Diagnosis: Neuropathy[ICD9: 355.9] Diagnosis: RESTLESS LEGS SYNDROME[ICD9: 333.94] Xiomara BETTENCOURT [facility] CPT-4: 42073 03/11/2013 Plan of Care Planned Activity Notes Codes Status Date Visit Diagnosis Plan: Chronic obstructive pulmonary di sease, unspecified Discussion: Will obtain most recent CT scan and PFT results Would be a good candidate for pulmonary rehab but will have to wait until after COVID-19 has diet down to start Continue Symbicort at BID dosing with proair prn Increase activity and stamina ICD-9 : 496 ICD-10 : J44.9 10/20/2019 Visit Diagnosis Plan: DM w/o complication type II, unc ontrolled Discussion: Can add back glimepride 2mg po q AM Accuchecks at least BID BS readings in 1 week ICD-9 : 250.02 ICD-10 : E11.65 10/20/2019 Visit Diagnosis Plan: Edema Discussion: Lasix and pota ssium for next week and fwup 1 week to assess dyspnea/edema/weight, etc. ICD-9 : 782.3 ICD-10 : R60.9 10/20/2019 Patient Education: furosemide- [employer] Coupon [phone] [email or web address] Completed 10/20/2019 Visit Diagnosis Plan: Obstructive sleep [...] I95.9 10/12/2019 Appointment: Xiomara Bettencourt WPtel: [address] [place], [place] [phone] TELEMEDICINE 10/12/2019 Appointment: Xiomara Bettencourt WPtel: [address] [place], [place] [phone] US RESCHEDULED 09/23/2019 Care Plan: COMPREHEN METABOLIC PANEL SERGEI NC : 49353-6 Pending 09/20/2019 Care Plan: LIPID PANEL LOINC : 74830-3 Pending 09/20/2019 Care Plan: A1C HPLC LOINC : 98413-5 Pending 09/20/2019 Care Plan: COMPLETE CBC W/AUTO DIFF WBC LOINC : 68102-0 Pending 09/20/2019 Visit Diagnosis Plan: Upper respiratory [...] : J06.9 06/02/2019 Appointment: Pennie Pizarro [address] [place], [place] [phone] ACUTE ILLNESS 06/02/2019 Visit Diagnosis Plan: Allergic [...] ICD-10 : J30.9 05/13/2019 Appointment: Pennie Pizarro [address] [place], [place] [phone] ACUTE ILLNESS 05/13/2019 Appointment: Xiomara Bettencourt WPtel: [phone] [facility] US CANCELED 04/27/2019 Visit Diagnosis Plan: Pneumonia Discussion: will obtai n records from urgent care. instructed to finish out doxy. no rhonchi or crackles auscultated. symbicort sample given to patient with instructions to use bid. call office later this week with new or worsening symptoms. ICD-9 : 486 ICD-10 : J18.9 04/26/2019 Appointment: Pennie Pizarro [address] [place], [place] [phone] US FOLLOW UP 04/26/2019 Visit Diagnosis Plan: [...] ICD-10 : J01.90 02/22/2019 Appointment: Pennie Pizarro [address] [place] [address] ACUTE ILLNESS 02/22/2019 Patient Education: prednisone- [employer] Coupon [phone] [email or web address] Completed 02/22/2019 Visit Diagnosis Plan: Cervicalgia Discussion: Check Ce rvical Spine X-ray Will likely need PT ICD-9 : 723.1 ICD-10 : M54.2 11/25/2018 Appointment: Xiomara Bettencourt WPtel: [phone] ACUTE ILLNESS 11/25/2018 Visit Plan: Saline [...] Tyle... 11/19/2018 Appointment: Xiomara Bettencourt WPtel: [phone] ACUTE ILLNESS 11/19/2018 Patient Education: baclofen- [employer] Coupon [id number] [id number] [email or web address] Completed 11/19/2018 Visit Diagnosis Plan: Paroxysmal atrial [...] I10 07/22/2018 Appointment: [facility] [phone] [facility] [facility] 07/22/2018 Visit Diagnosis Plan: Chronic kidney disease, stage 1 Discussion: DC NSAIDs May use tylenol ICD-9 : 585.1 ICD-10 : N18.1 04/21/2018 Visit Diagnosis Plan: Essential (primary) hypertension Discussion: Stable ICD-9 : 401.9 ICD-10 : I10 04/21/2018 Visit Diagnosis Plan: Type 2 diabetes me llitus with diabetic neuropathy, unspecified Discussion: Stable Lab discussed Accuche cks daily Flu shot given Discussion: Stable Lab discussed Accuchecks daily ICD-9 : 250.60 ICD-10 : E11.40 04/21/2018 Visit Diagnosis Plan: Hyperlipidemia, unspecified Disc ussion: Stable Lab discussed ICD-9 : 272.4 ICD-10 : E78.5 04/21/2018 Visit Diagnosis Plan: Benign prostatic h yperplasia with lower urinary tract symptoms Discussion: Trial of flomax Call [facility] 1 mo [facility] on how doing Follow Up: 4 months ICD-9 : 600.21 ICD-10 : N40.1 04/21/2018 Appointment: Xiom[facility] Bettencourt [facility] [phone] [facility] FO[facility] 04/21/2018 Patient Education: Patient Medication [...] ICD-10 : E78.2 01/06/2018 Appointment: Pennie Pizarro [address] [place] [address] MEDICATION REVIEW 01/06/2018 Patient Education: Patient Medication Summary Completed 01/06/2018 Appointment: Xiomara Bettencourt WPtel: [address] [place], [place] [phone] US NO SHOW 01/05/2018 Appointment: Xiomaar Bettencourt WPtel: [address] [place], [place] [phone] US CANCELED 12/31/2017 Visit Diagnosis Plan: Actinic keratosis Discussion: Cr yotherapy as above but will see derm if lesions do not resolve ICD-9 : 702.0 ICD-10 : L57.0 10/22/2017 Appointment: Xiomara Bettencourt WPtel: [address] [place], [place] [phone] ACUTE ILLNESS 10/22/2017 Patient Education: Patient Medication [...] ICD-10 : M79.651 04/22/2017 Visit Diagnosis Plan: OSTEOARTHRISIS MULTI SITES Discu ssion: Once again discussed that taking indomethacin with plavix and aspirin is not recommended and makes him high risk for bleeding ICD-9 : 715.98 ICD-10 : M19.90 04/22/2017 Visit Diagnosis Plan: Essential (primary) hypertension Discussion: Slightly elevated today but is anxious about episode had last night ICD-9 : 401.9 ICD-10 : I10 04/22/2017 Visit Diagnosis Plan: Pain in left leg Discussion: Angie ck stat venous doppler due to redness and warmth and recent left TKR--if negative needs to observe left leg for worsening redness and notify surgeon immediately of change ICD-9 : 729.5 ICD-10 : M79.605 04/22/2017 Appointment: Xiomara Bettencourt [facility] [phone] [facility] FO[facility] 04/22/2017 Patient Education: Patient Medication Summary Completed 04/22/2017 Patient Education: Patient Medication Summary Completed 04/16/2017 Care Plan: COMPREHEN METABOLIC PANEL SERGEI NC : 77514-7 Pending 04/16/2017 Care Plan: LIPID PANEL LOINC : 22531-9 Pending 04/16/2017 Care Plan: CBC Pending 04/16/2017 Care Plan: A1C HPLC LOINC : 98482-0 Pending 04/16/2017 Referral: Inocencio Goodson [facility]el[facility] Referral Appointment Confirmed 10/14/2016 Visit Diagnosis Plan: Type 2 diabetes mellitus with hy perglycemia Discussion: Continue toujeo Accuchecks BID Follow Up: 4 months ICD-9 : 250.02 ICD-10 : E11.65 10/10/2016 Visit Diagnosis Plan: Angina pectoris, unspecified Dis cussion: Continue imdur and see cardiology To ER if chest pain returns ICD-9 : 413.9 ICD-10 : I20.9 10/10/2016 Appointment: Xiomara Bettencourt WPtel: [address] [place], [place] [phone] FOLLOW UP 10/10/2016 Patient Education: Patient Medication Summary Completed 10/10/2016 Patient Education: Patient Medication Summary Completed 09/16/2016 Care Plan: COMPREHEN METABOLIC PANEL SERGEI NC : 97041-0 Pending 09/16/2016 Care Plan: ASSAY THYROID STIM HORMONE Pen ding 09/16/2016 Care Plan: ASSAY OF FREE THYROXINE Pendin g 09/16/2016 Care Plan: LIPID PANEL LOINC : 19044-5 Pending 09/16/2016 Care Plan: CBC Pending 09/16/2016 Care Plan: A1C HPLC LOINC : 85318-3 Pending 09/16/2016 Visit Plan: CXR now to further evaluate symptoms Suspect viral since he has been on 2 rounds of antibiotics If chronic lung disease evident, 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 with instructions on use Continue oral prednisone, would like to avoid injection if possible considering his DM status and he is stable right now Continue albuterol PRN Will call with CXR results 08/31/2015 Appointment: Shannan Grimes [address] [place] [address] 08/31 confirmed- SP ACUTE ILLNESS 08/31/2015 Patient Education: Patient Medication Summary Completed 08/31/2015 Visit Plan: Albuterol INH via SVN every 4 hours Prednisone 20 mg PO BID Notify for worsening symptoms 08/29/2015 Appointment: Kelsie Grubbs WPtel: [address] [place], [place] [phone] ACUTE ILLNESS 08/29/2015 Patient Education: Patient Medication Summary Completed 08/29/2015 Appointment: Xiomara Bettencourt WPtel: [address] [place], [place] [phone] US LAB 07/26/2015 Patient Education: Patient Medication Summary Completed 07/26/2015 Visit Plan: Return in am for fasting lab s - CBC, CMP, TSH, Free T4, HgbA1C Change Levemir to Toujeo - Continue 35 Units q am - sample given Start physical Therapy for increased quadriceps strengthening and decreased pain in knees, bilaterally. 07/24/2015 Appointment: Kelsie Grubbs WPtel: [phone] [id number] 07/21 appt confirmed cn FOLLOW UP 07/24/19 Appointment: Kelsie Grubbs WPtel: [phone] [facility] FOLLOW UP 07/24/2015 Patient Education: Patient Medication [...] insulin 05/01/2015 Appointment: Xiomara Bettencourt WPtel: [address] [place], [place] [phone] 04/28 confirmed~sl ACUTE ILLNESS 05/01/2015 Patient Education: Patient Medication Summary Completed 05/01/2015 Patient Education: Patient Medication Summary Completed 01/19/2015 Care Plan: URINALYSIS AUTO W/[place] : [id number] Pending 01/19/2015 Visit Plan: I have went through his medi cations in past and stopped meds but he adjusts his meds on his own and has restarted some Stop Amaryl Once again discussed not using indomethacin routinely due to taking plavix and aspirin daily and shelter use is dangerous Check CBC, CMP, TSH, free T4, B12 and HbA1C Patient has seen Cardiology recently but no cardiac cath done--had chemical stress test 01/17/2015 Appointment: Xiomara Bettencourt WPtel: [phone] [facility] [place] 01/16 vm cn ACUTE ILLNESS 01/17/2015 Patient Education: Patient Medication Summary Completed 01/17/2015 Visit Plan: See Dr. Garvin for removal 09/29/2014 Appointment: Xiomara Bettencourt WPtel: [address] [place] [address] ACUTE ILLNESS 09/29/2014 Referral: Colt Garvin WPtel: [address] [place] Referral Initiated 09/29/2014 Patient Education: Patient Medication Summary Completed 09/29/2014 Visit Plan: Check CBC, CMP, TSH, free T4 , HbA1C, Lipids Accuchecks daily alternating times Patient has been adjusting own meds and has not taken any cholesterol meds for sometime Will check into surgery on right knee at [facility] Check carotid dopplers 08/04/2014 Appointment: Xiomara Bettencourt WPtel: [address] [place] [address] Annual Well Visit 08/04/2014 Patient Education: Patient Medication Summary Completed 08/04/2014 Appointment: Kelsie Grubbs WPtel: [address] [place] [address] ACUTE ILLNESS 02/18/2014 Patient Education: Patient Medication Summary Completed 02/18/2014 Patient Education: [facility] - Saving AutoInj - 18+ - Dynamic Portal ID Completed 02/18/2014 Appointment: Xiomara Bettencourt WPtel: [address] [place], [place] [phone] 09/08/2013 Visit Plan: Check fasting lab in 1mo Con tinue Lantus and accuchecks at least BID 07/29/2013 Appointment: Xiomara Bettencourt WPtel: [address] [place], [place] [phone] FOLLOW UP 07/29/2013 Patient Education: Patient Medication Summary Completed 07/29/2013 Appointment: Xiomara Bettencourt WPtel: [address] [place], [place] [phone] [place] INJECTION 07/22/2013 Patient Education: Patient Medication Summary Completed 07/22/2013 Visit Plan: Pt has been self-adjusting m eds Stop metformin and amaryl Use Levemir 25u sc BID and call in 1wk with BS readings 05/26/2013 Appointment: Xiomara Bettencourt WPtel: [address] [place], [place] [phone] FOLLOW UP 05/26/2013 Patient Education: Patient Medication Summary Completed 05/26/2013 Visit Plan: DC Metformin Increase Lantus to 30u sc daily Change lisinopril to lisinopril HCT 20/25mg q AM Continue Gabapentin at current dose 04/28/2013 Appointment: Xiomara Bettencourt WPtel: [phone] [facility] FOLLOW UP 04/28/2013 Patient Education: Patient Medication Summary Completed 04/28/2013 Appointment: Xiomara Bettencourt WPtel: [address] [place], [place] [phone] LAB 03/12/2013 Patient Education: Patient Medication Summary Completed 03/12/2013 Visit Plan: Trial of neurontin 400mg q H S Obtain most recent lab results Change levemir to lantus per pt request Pt goes for sleep study tonite 03/11/2013 Appointment: Xiomara Bettencourt WPtel: [address] [place], [place] [phone] 02/01paperwork mailed 03/10 confirmed with spouse NEW PATIENT 11/2012 Patient Education: Patient Medication Summary Completed 03/11/2013 Instructions Comment . Saline nasal flushes prn. Tylenol/Motr in prn headache. Notify if persists/symptoms worsening. . 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 Check [...]
--- OUTSIDE RECORDS SUMMARY | 2020-02-02 21:39 | XMS REPORT | CCD ---
Author Author Sheng Bettencourt D.O. 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 Name Role Phone PP Unavailable CCM Unavailable Summary Purpose Interface Exchange Insurance Providers Payer name Policy type / Coverage type Covered green party ID Effective Begin Date Effective End Date WPS MEDICARE PART B [place] Medicare Part B [id number] 2018 Unknown [facility] Medicare Part B [id number] 2018 Un known Family history Mother Diagnosis Age At Onset Diabetes mellitus Type 2 Unknown Hypercholesterolemia Unknown Father Diagnosis Age At Onset No Family Disease Entered N/A Social History Social History Element Codes Description Effective Dates Marital status Unknown 03/11/2013 Number of children Unknown 4 03/11/2013 Employment Unknown Retired 03/11/[address]: 5220927 Former smoker 03/11/[address]: 192439 Currently drinks alc ohol Socially 03/11/2013 Has [...] Fill Instructions glimepiride 2 mg tablet RxNorm: 157771 1 Tablet(s) Oral QD 10/27/19 No Stop Date Active gabapentin 400 mg capsule RxNorm: 638683 1 Capsule(s) Oral QPM 10/0604/24/2020 Active potassium chloride ER 20 mEq tablet,extended release RxNorm: 263820 1 Tablet(s) Oral QD to take with lasix 10/20/2019 10/26/2019 Inactive furosemide 40 mg tablet RxNorm: 525219 1 Tablet(s) Oral QAM for swelling 10/20/2019 10/26/2019 Inactive albuterol sulfate HFA 90 mcg/actuation aerosol inhaler RxNor m: 3536795 1-2 Puff(s) Inhalation as needed 10/12/2019 No Stop Date Active Zyrtec 10 mg tablet RxNorm: 7846884 1 Tablet(s) Oral QAM 10/12/2019 No Stop Date Active aspirin 81 mg tablet,delayed release RxNorm: 634590 1 Tablet(s) Oral QD 10/12/2019 No Stop Date Active Symbicort 160 mcg-4.5 mcg/actuation HFA aerosol inhaler RxNo rm: 5901356 2 Puff(s) Inhalation QD 10/12/2019 No Stop Date Active lisinopril 20 mg tablet RxNorm: 541180 1 Tablet(s) Oral QD 10/12/19 20 01/10/2020 Active simvastatin 20 mg tablet RxNorm: 123467 1 Tablet(s) Ora l QD Needs updated fasting labs 09/20/2019 12/19/2019 Active Needs updated fa sting labs before 90 day refill Flomax 0.4 mg capsule RxNorm: 438098 TAKE TWO CAPSULES BY MOUTH EVERY EVENING 08/03/2019 No Stop Date Active gabapentin 400 mg capsule RxNorm: 774169 TAKE ONE CAPSU LE BY MOUTH EVERY EVENING 08/02/2019 10/26/2019 Inactive simvastatin 20 mg tablet RxNorm: 269776 1 Tablet(s) Ora l QD Needs updated fasting labs 07/21/2019 08/19/2019 Inactive Needs updated fa sting labs before 90 day refill simvastatin 20 mg tablet RxNorm: 927650 1 Tablet(s) Ora l QD Needs updated fasting labs 06/23/2019 07/20/2019 Inactive Needs updated fa sting labs before 90 day refill Flomax 0.4 mg capsule RxNorm: 196093 1 Capsule(s) Oral QD 05/13/2019 10/19/2019 Inactive Flomax 0.4 mg capsule RxNorm: 368509 TAKE TWO CAPSULES BY MOUTH EVERY EVENING 03/19/2019 05/12/2019 Inactive Augmentin 500 mg-125 mg tablet RxNorm: 577196 1 Tablet(s) PO BID 03/03/2019 Inactive baclofen 10 mg tablet RxNorm: 439794 TAKE ONE TABLET BY MOUTH EVERY NIGHT AT BEDTIME FOR PAIN OR SPASMS 01/14/2019 05/12/2019 Inactive Flomax 0.4 mg capsule RxNorm: 678801 TAKE TWO CAPSULES BY MOUTH EVERY EVENING 01/12/2019 03/18/2019 Inactive gabapentin 400 mg capsule RxNorm: 634251 1 Capsule(s) PO QPM 201806/27/2019 Inactive baclofen 10 mg tablet RxNorm: 560337 1 Tablet(s) PO QHS for my n/spasm 12/15/2018 01/13/2019 Inactive simvastatin 20 mg tablet RxNorm: 756118 TAKE ONE TABLET BY MOUT H DAILY 12/11/2018 06/22/2019 Inactive OneTouch Ultra Blue Test Strip RxNorm: Use 1 rigoberto t strip three times daily to check blood sugar (Dx:E11.65) 12/07/2018 No Stop Date Active gabapentin 400 mg capsule RxNorm: 641880 TAKE ONE CAPSU LE BY MOUTH EVERY EVENING 12/04/2018 12/29/2018 Inactive baclofen 10 mg tablet RxNorm: 163921 1 Tablet(s) PO QHS for my n/spasm 11/19/2018 12/15/2018 Inactive Flomax 0.4 mg capsule RxNorm: 251156 2 Capsule(s) PO QPM 09/15/2018 0 12/13/2018 Inactive WOULD LIKE 90DS!!! gabapentin 400 mg capsule RxNorm: 507619 TAKE ONE CAPSU LE BY MOUTH EVERY EVENING 07/21/2018 10/18/2018 Inactive simvastatin 20 mg tablet RxNorm: 701463 1 Tablet(s) PO QD 06/15/2018 12/10/2018 Inactive Flomax 0.4 mg capsule RxNorm: 363971 TAKE TWO CAPSULES BY MOUTH EVERY EVENING 06/02/2018 09/15/2018 Inactive WOULD LIKE 90DS!!! Flomax 0.4 mg capsule RxNorm: 642962 2 Capsule(s) PO QPM 04/21/2018 1 07/20/2017 Inactive simvastatin 20 mg tablet RxNorm: 840919 1 Tablet(s) PO QD Take 1 tablet by mouth daily. Patient due for labwork before further refill. 04/06/20182017 Inactive simvastatin 20 mg tablet RxNorm: 150697 Tablet(s) TAKE ONE TABLET BY MOUTH DAILY 03/25/2018 06/15/2018 Inactive simvastatin 20 mg tablet RxNorm: 855619 Tablet(s) TAKE ONE TABLET BY MOUTH DAILY due for appt 12/29/2017 03/25/2018 Inactive simvastatin 20 mg tablet RxNorm: 420867 TAKE ONE TABLET BY MOUT H DAILY 09/03/2017 12/29/2017 Inactive simvastatin 20 mg tablet RxNorm: 800174 1 Tablet(s) PO QD 10/22/2016 11/18/2018 Inactive isosorbide mononitrate ER 60 mg tablet,extended release 24 h r RxNorm: 187812 1 Tablet(s) PO QD 10/22/2016 04/21/2017 Inactive isosorbide mononitrate ER 60 mg tablet,extended release 24 h r RxNorm: 542852 1 Tablet(s) PO QD 10/10/2016 10/21/2016 Inactive simvastatin 20 mg tablet RxNorm: 894213 1 Tablet(s) PO QD 10/10/2016 10/21/2016 Inactive gabapentin 400 mg capsule RxNorm: 828862 1 Capsule(s) PO QPM 201609/20/2016 Inactive Toujeo SoloStar 300 unit/mL (1.5 mL) subcutaneous insulin pe n RxNorm: 4833666 35 Unit(s) SQ QAM 07/23/2016 07/22/2016 Inactive Toujeo SoloStar 300 unit/mL (1.5 mL) subcutaneous insulin pe n RxNorm: 8821150 40 Unit(s) SQ QAM 09/01/2015 No Stop Date Active Symbicort 160 mcg-4.5 mcg/actuation HFA aerosol inhaler RxNo rm: 7314532 2 Puff(s) INH BID 08/31/2015 09/09/2015 Inactive prednisone 20 mg tablet RxNorm: 741767 1 Tablet(s) PO BID 08/29/2015 09/02/2015 Inactive albuterol sulfate 2.5 mg/3 mL (0.083 %) solution for n ebulization RxNorm: 904519 1 Unit(s) INH Q4H as needed 08/29/2015 10/09/2016 Inactive levothyroxine 75 mcg tablet RxNorm: 137885 1 Tablet(s) PO QD 201507/27/2015 Inactive levothyroxine 75 mcg tablet RxNorm: 516606 1 Tablet(s) PO QD 201511/18/2018 Inactive levothyroxine 75 mcg tablet RxNorm: 318407 1 Tablet(s) PO QD 201507/27/2015 Inactive lisinopril 20 mg-hydrochlorothiazide 25 mg tablet RxNorm: 19 7887 TAKE ONE TABLET BY MOUTH EVERY MORNING. REPLACES PLAIN LISINOPRIL 03/06/2015 04/21/2017 Inactive lisinopril 20 mg-hydrochlorothiazide 25 mg tablet RxNorm: 19 7887 TAKE ONE TABLET BY MOUTH EVERY MORNING. REPLACES PLAIN LISINOPRIL 09/08/2014 03/05/2015 Inactive allopurinol 100 mg tablet RxNorm: 784670 1 Tablet(s) PO BID 015 10/09/2016 Inactive [SAVINGS FOR NON-COVERED YULIA GS -- BIN:[id number], PCN: [id number], Group: [id number], ID# [id number], Questions: . THIS IS NOT INSURANCE.] levothyroxine 50 mcg tablet RxNorm: 089721 1 Tablet(s) PO QD 201407/26/2015 Inactive [AttnRPh: Saving apply/adjud icate RxGRP:SG20 RxBIN:[id number] RxPCN:HT ID#:[id number]] Zegerid 40 mg-1.1 gram capsule RxNorm: 526457 1 Capsule(s) PO QD 03/03/2014 Inactive [AttnRPh: Saving apply/adjud icate RxGRP:SG20 RxBIN:[id number] RxPCN:HT ID#:[id number]] ondansetron 8 mg disintegrating tablet RxNorm: 320329 1 Tablet(s) PO Q8H as needed for [...] 07/28/2013 Inactive gabapentin 400 mg capsule RxNorm: 582416 1 Capsule(s) PO QPM 201207/28/2013 Inactive gabapentin 400 mg capsule RxNorm: 643692 1 Capsule(s) PO QPM 201206/26/2013 Inactive lisinopril 20 mg-hydrochlorothiazide 25 mg tablet RxNorm: 82 3971 1 Tablet(s) PO QAM replaces plain lisinopril 04/28/2013 07/29/2013 Inactive gabapentin 400 mg capsule RxNorm: 902073 1 Capsule(s) PO QPM 201204/27/2013 Inactive gabapentin 400 mg capsule RxNorm: 410041 1 Capsule(s) PO QPM 201203/10/2013 Inactive gabapentin 400 mg capsule RxNorm: 530970 1 Capsule(s) PO QPM 201203/14/2013 Inactive Lantus Solostar 100 unit/mL (3 mL) Sub-Q Insulin Pen RxNorm: 596769 20 Unit(s) SQ QPM 03/11/2013 03/15/2013 Inactive Toujeo SoloStar 300 unit/mL (1.5 mL) subcutaneous insulin pe n RxNorm: 5798248 35 Unit(s) SQ QAM No Start Date Active omeprazole 20 mg capsule,delayed release RxNorm: 745165 1 Capsu le(s) PO QD No Start Date Active isosorbide mononitrate ER 60 mg tablet,extended release 24 h r RxNorm: 582297 1 Tablet(s) PO QD No Start Date Active Eliquis 5 mg tablet RxNorm: 9324074 1 Tablet(s) PO BID No Start Date Active metformin 500 mg tablet RxNorm: 041242 1 Tablet(s) PO BID No Start Da te Active levothyroxine 50 mcg tablet RxNorm: 223331 1 Tablet(s) PO QD No Start Date Active Norvasc 10 mg tablet RxNorm: 605248 1 Tablet(s) PO QHS No Start Date Active Toujeo SoloStar 300 unit/mL (1.5 mL) subcutaneous insulin pe n RxNorm: 6981753 30 Unit(s) SQ QAM No Start Date Active glimepiride 4 mg tablet RxNorm: 267375 1 Tablet(s) PO QHS No Start Date 07/26/2015 Inactive allopurinol 100 mg tablet RxNorm: 019665 1 Tablet(s) PO BID No Star t Date 08/10/2014 Inactive Lantus Solostar 100 unit/mL (3 mL) subcutaneous insulin pen RxNorm: 147420 30 Unit(s) SQ QD No Start Date 08/03/2014 Inactive Levemir FlexTouch 100 unit/mL (3 mL) subcutaneous insulin pe n RxNorm: 558593 25 Unit(s) SQ QAM No Start Date 07/23/2015 Inactive Lantus 100 unit/mL Sub-Q RxNorm: 456566 30 Unit(s) SQ QHS No Start Date 05/25/2013 Inactive Lantus Solostar 100 unit/mL (3 mL) Sub-Q Insulin Pen RxNorm: 317970 20 Unit(s) SQ QPM No Start Date 03/10/2013 Inactive OneTouch Ultra Blue Test Strip RxNorm: Use 1 rigoberto t strip three times daily to check blood sugar (Dx:E11.65) No Start Date 12/06/2018 Inactive Levemir FlexTouch 100 unit/mL (3 mL) subcutaneous insulin pe n RxNorm: 626536 30- 35 Unit(s) SQ QAM No Start Date 07/23/2015 Inactive Levemir Flexpen 100 unit/mL (3 mL) solution subcutaneo us insulin pen RxNorm: 249556 20-25 Unit(s) SQ QD No Start Date 07/28/2013 Inactive lisinopril 20 mg tablet RxNorm: 342799 1 Tablet(s) PO QD No Start D ate 10/11/2019 Inactive indomethacin ER 75 mg capsule,extended release RxNorm: 06366 2 1 Capsule(s) PO QAM No Start Date 04/27/2013 Inactive indomethacin ER 75 mg capsule,extended release RxNorm: 66669 2 1 Capsule(s) PO QD No Start Date 01/16/2015 Inactive Chlortab-4 oral RxNorm: 448507 oral No Start Date 10/11/2019 Inac tive Vitamin D3 5,000 unit tablet RxNorm: 105115 1 Tablet(s) PO QD No St art Date 08/03/2014 Inactive Levemir Flexpen 100 unit/mL (3 mL) solution subcutaneo us insulin Pen RxNorm: 427455 20 Unit(s) SQ QHS No Start Date 03/10/2013 Inactive Vytorin 10 mg-40 mg tablet RxNorm: 4268598 1/2 Tablet(s) PO QD No S tart Date 04/20/2018 Inactive oxymetazoline-menthol 0.05 % nasal spray RxNorm: 1401845 [place] COTY No Start Date 10/11/2019 Inactive Patient states he ta kes every 10 hours Toujeo SoloStar 300 unit/mL (1.5 mL) subcutaneous insulin pe n RxNorm: 5070337 35 Unit(s) SQ QAM No Start Date 07/22/2016 Inactive Lantus Solostar 100 unit/mL (3 mL) subcutaneous insulin pen RxNorm: 555564 20 Unit(s) SQ QD No Start Date 08/03/2014 Inactive aspirin 81 mg tablet RxNorm: 667337 1 Tablet(s) PO QD No Start Date 0 08/03/2014 Inactive metformin 500 mg tablet RxNorm: 467327 1 Tablet(s) PO BID No Start Date 07/28/2013 Inactive glimepiride 4 mg tablet RxNorm: 250673 1 Tablet(s) PO BID No Start Date 01/16/2015 Inactive glimepiride 4 mg tablet RxNorm: 586462 1 Tablet(s) PO QD No Start D ate 08/03/2014 Inactive levothyroxine 25 mcg tablet RxNorm: 185731 1 Tablet(s) PO QD No Sta rt Date 08/10/2014 Inactive doxycycline oral RxNorm: 21169 oral No Start Date 05/12/2019 Inac tive aspirin 81 mg tablet RxNorm: 654110 1 Tablet(s) PO QD No Start Date 0 07/21/2018 Inactive isosorbide mononitrate ER 60 mg tablet,extended release 24 h r RxNorm: 849255 1 Tablet(s) PO BID No Start Date 01/16/2015 Inactive metformin 500 mg tablet RxNorm: 780952 1 Tablet(s) PO BID No Start Date 04/27/2013 Inactive Plavix 75 mg tablet RxNorm: 955970 1 Tablet(s) PO QD No Start Date Inactive glimepiride 4 mg tablet RxNorm: 610010 1 Tablet(s) PO QPM No Start Date 02/21/2019 Inactive Vytorin 10-40 10 mg-40 mg tablet RxNorm: 6397943 1 Tablet(s) PO QHS No Start Date 08/03/2014 Inactive indomethacin 50 mg capsule RxNorm: 728480 1 Capsule(s) PO QHS No St art Date 01/16/2015 Inactive glimepiride 4 mg tablet RxNorm: 465606 1 Tablet(s) PO BID No Start Date 07/28/2013 Inactive Levemir FlexTouch 100 unit/mL (3 mL) subcutaneous insulin pe n RxNorm: 238055 20 Unit(s) SQ QD No Start Date 04/30/2015 Inactive lisinopril 20 mg tablet RxNorm: 829630 1 Tablet(s) PO BID No Start Date 04/27/2013 Inactive Venita Hopkinsar SubQ RxNorm: Subcutaneous No Start Date 03/15/2013 I nactive Zantac 150 mg tablet RxNorm: 806111 1 Tablet(s) PO QHS No Start Date 10/11/2019 Inactive allopurinol 300 mg tablet RxNorm: 308544 1 Tablet(s) PO QD No Start Date 08/03/2014 Inactive Fish Oil 1,000 mg capsule RxNorm: 1 Capsule(s) PO QD No Start Date 02/21/2019 Inactive indomethacin 50 mg capsule RxNorm: 043718 1 Capsule(s) PO BID No St art Date 04/20/2018 Inactive levothyroxine 50 mcg tablet RxNorm: 616957 1 Tablet(s) PO QD No Sta rt Date 08/10/2014 Inactive glimepiride 4 mg tablet RxNorm: 542210 1 Tablet(s) PO BID No Start Date 03/15/2013 Inactive indomethacin 50 mg capsule RxNorm: 225585 1 Capsule(s) PO QHS No St art Date 04/27/2013 Inactive Medication Administered No Medication Administered data Immunizations Vaccine Codes Date Status Influenza CVX: 135 04/21/2018 Complete Influenza CVX: 135 04/22/2017 Complete Results Observation Observation Code Item Item Code Result Date S ervice Location [facility] 17467 Cholesterol 209 mg/dL 09/17/2016 Unkno wn [facility] 74495 Triglyceride 111 mg/dL 09/17/2016 Unkn own [facility] 29843 HDL CHOLESTEROL 50 mg/dL 09/17/2016 U nknown [facility] 00313 Chol/HDL Ratio 4.18 ratio 09/17/2016 U nknown [facility] 24465 NON-HDL Chol 159 mg/dL 09/17/2016 Unkn own [facility] 38923 LDL Cholesterol 137 mg/dL 09/17/2016 U nknown MEAN GLUC 1665175 Calc Mean Gluc 151 mg/dL 09/17/2016 Unkn own COMPREHENSIVE METABOLIC 64175 AST 23 U/L 2016 Unknown COMPREHENSIVE METABOLIC 89290 ALT 19 U/L 2016 Unknown COMPREHENSIVE METABOLIC 92359 BUN 15 mg/dL 2016 Unknown COMPREHENSIVE METABOLIC 00446 ALBUMIN 4.3 g/dL 2016 Unknown COMPREHENSIVE METABOLIC 87570 CHLORIDE 103 mmol/L 09/17 Unknown COMPREHENSIVE METABOLIC 96752 Bili Total 0.6 mg/dL 09/17 Unknown COMPREHENSIVE METABOLIC 95755 ALK PHOS 60 U/L 2016 Unknown COMPREHENSIVE METABOLIC 62956 SODIUM 140 mmol/L 09/17 Unknown COMPREHENSIVE METABOLIC 51432 CREATININE 1.03 mg/dL 09/04 Unknown COMPREHENSIVE METABOLIC 91288 CALCIUM 9.5 mg/dL 2016 Unknown COMPREHENSIVE METABOLIC 76722 POTASSIUM 3.9 mmol/L 09/17 Unknown COMPREHENSIVE METABOLIC 81574 Total Protein 6.9 g/dL Unknown COMPREHENSIVE METABOLIC 02909 Glucose 94 mg/dL 2016 Unknown COMPREHENSIVE METABOLIC 47823 Bicarbonate 28 mmol/L 09/04 Unknown COMPREHENSIVE METABOLIC 66196 AGAP 9 mmol/L 2016 Unknown GFR CALC 2412901 GFR Afr Amr >60 mL/min 09/17/2016 Unknow n GFR CALC 3924412 GFR Non Afr Amr >60 mL/min 09/17/2016 Un known THYROID STIMULATING HORMONE 84159 TSH 4.260 uIU/mL 09/17/2016 Unknown GLYCOSYLATED HEMOGLOBIN TEST 11480 Hgb A1c 16822-4 6.9 % 0 09/17/2016 Unknown FREE T4 90466 T4 Free 1.02 ng/dL 09/17/2016 Unknown COMPLETE BLOOD COUNT 4005248 WBC 8.6 10e9/L 07/26/19 16 Unknown COMPLETE BLOOD COUNT [id number] RBC 4.86 10e12/L 2015 Unknown COMPLETE BLOOD COUNT 9628731 HGB 14.6 g/dL 6 Unknown COMPLETE BLOOD COUNT 6320812 HCT DET 43.1 % 6 Unknown COMPLETE BLOOD COUNT 4030078 MCV 88.7 fL 6 Unknown COMPLETE BLOOD COUNT [id number] MCH 30.0 pg 6 Unknown COMPLETE BLOOD COUNT [id number] MCHC 33.9 g/dL 6 Unknown COMPLETE BLOOD COUNT [id number] PLT 267 10e9/L 07/26/19 16 Unknown COMPLETE BLOOD COUNT 5370301 MPV 11.5 fL 6 Unknown COMPLETE BLOOD COUNT [id number] SAM % 64.8 % 6 Unknown COMPLETE BLOOD COUNT 8959072 LY % 16.8 % 6 Unknown COMPLETE BLOOD COUNT [id number] MON % 12.5 % 6 Unknown COMPLETE BLOOD COUNT 6201788 EOS % 5.6 % 6 Unknown COMPLETE BLOOD COUNT [id number] BASO % 0.3 % 6 Unknown COMPLETE BLOOD COUNT 5502916 RDW 13.4 % 6 Unknown COMPLETE BLOOD COUNT [id number] ABS SAM 5.57 10e9/L 016 Unknown COMPLETE BLOOD COUNT [id number] ABS LYMPH 1.44 10e9/L 016 Unknown COMPLETE BLOOD COUNT [id number] ABS MONO 1.08 10e9/L 016 Unknown COMPLETE BLOOD COUNT [id number] ABS EOS 0.48 10e9/L 016 Unknown COMPLETE BLOOD COUNT [id number] ABS BASO 0.03 10e9/L 016 Unknown COMPLETE BLOOD COUNT 8317301 RDW-SD 42.9 fL 6 Unknown PSA EQUIMOLAR MATT 85078 PSA EQ 0.78 NG/ML 6 Unknown THYROID STIMULATING HORMONE 32160 TSH 5.292 uIU/ML 07/26/2015 Unknown GLYCOSYLATED HEMOGLOBIN TEST 56080 A1C HPLC 58038-6 7.0 % 0 07/26/2015 Unknown GFR CALC 3962369 GFR AA >60 ML/MIN 07/26/2015 Unknown GFR CALC 7012240 GFR NON-AA >60 ML/MIN 07/26/2015 Unknown [facility] 97162 HDL TEST 64 MG/DL 07/26/2015 Unknown [facility] 49925 TRIG 58 MG/DL 07/26/2015 Unknown [facility] 93405 TEST LDL 49 MG/DL 07/26/2015 Unknown [facility] 78002 CHOL 125 MG/DL 07/26/2015 Unknown [facility] 05418 RCHOL/HDL 1.95 RATIO 07/26/2015 Unknow n [facility] 11545 NON-HDL CH 61 MG/DL 07/26/2015 Unknow n COMPREHENSIVE METABOLIC 56321 AST 25 U/L 2015 Unknown COMPREHENSIVE METABOLIC 39108 ALT 23 IU/L 2015 Unknown COMPREHENSIVE METABOLIC 36197 BUN 18 MG/DL 2015 Unknown COMPREHENSIVE METABOLIC 54107 ALBUMIN 4.6 GM/DL 2015 Unknown COMPREHENSIVE METABOLIC 94283 CHLORIDE 100 MMOL/L 07/26 Unknown COMPREHENSIVE METABOLIC 23701 BILI TOT 0.5 MG/DL 2015 Unknown COMPREHENSIVE METABOLIC 09027 ALK PHOS 49 U/L 2015 Unknown COMPREHENSIVE METABOLIC 87558 SODIUM 137 MMOL/L 07/26 Unknown COMPREHENSIVE METABOLIC 17421 CREATININE 1.06 MG/DL 07/08 Unknown COMPREHENSIVE METABOLIC 21542 CALCIUM 9.5 MG/DL 2015 Unknown COMPREHENSIVE METABOLIC 29240 POTASSIUM 4.5 MMOL/L 07/26 Unknown COMPREHENSIVE METABOLIC 96736 PROT TOT 6.5 GM/DL 2015 Unknown COMPREHENSIVE METABOLIC 59379 Glucose 109 MG/DL 2015 Unknown COMPREHENSIVE METABOLIC 03531 BICARB 29 MMOL/L 2015 Unknown COMPREHENSIVE METABOLIC 33618 ANION GAP 8 MEQ/L 2015 Unknown FREE T4 70880 FREE T4 1.11 NG/DL 07/26/2015 Unknown CULTURE & SENSITIVITY 67857 PROTEIN UR NEG 015 Unknown [facility]ULTURE & SENSITIVITY 26982 HEMGLBN UR TR 015 Unknown CULTURE & SENSITIVITY 39592 GLUCOSE UR NEG 015 Unknown CULTURE & SENSITIVITY 38843 KETONES UR NEG 015 Unknown CULTURE & SENSITIVITY 96208 PH U 6.5 01/25/20 15 Unknown CULTURE & SENSITIVITY 44005 SP GR U 1.013 01/25/20 15 Unknown CULTURE & SENSITIVITY 33722 BILRUBN UR NEG 015 Unknown CULTURE & SENSITIVITY 75075 LEUKO UR NEG 01/25/20 15 Unknown CULTURE & SENSITIVITY 06865 NITRITE UR NEG 015 Unknown MICR CUL? [id number] SP TO JOHANA? NO 01/24/2015 Unknown MICR CUL? [id number] APPEAR UR NORMAL 01/24/2015 Unknown MICR CUL? 7102010 RBC/uL 2.2 01/24/2015 Unknown MICR CUL? 9332648 WBC/uL 2.8 01/24/2015 Unknown MICR CUL? 8305250 SQ EPI/uL 1.0 01/24/2015 Unknown MICR CUL? 7302992 HYALCST/uL 0.25 01/24/2015 Unknown MICR CUL? 8162095 WBC /HPF 1 01/24/2015 Unknown MICR CUL? 0035499 RBC /HPF 0 01/24/2015 Unknown GLYCOSYLATED HEMOGLOBIN TEST 22138 A1C HPLC 52889-9 6.6 % 0 01/17/2015 Unknown COMPLETE BLOOD COUNT [id number] WBC 10.1 10e9/L 015 Unknown COMPLETE BLOOD COUNT 7522702 RBC 4.60 10e12/L 2014 Unknown COMPLETE BLOOD COUNT 1094243 HGB 14.0 g/dL 5 Unknown COMPLETE BLOOD COUNT 0530857 HCT DET 39.9 % 5 Unknown COMPLETE BLOOD COUNT 9020867 MCV 86.7 fL 5 Unknown COMPLETE BLOOD COUNT 5361719 MCH 30.4 pg 5 Unknown COMPLETE BLOOD COUNT 5706618 MCHC 35.1 g/dL 5 Unknown COMPLETE BLOOD COUNT 0226227 PLT 252 10e9/L 01/18/20 15 Unknown COMPLETE BLOOD COUNT 8750307 MPV 11.4 fL 5 Unknown COMPLETE BLOOD COUNT 5856249 SAM % 72.9 % 5 Unknown COMPLETE BLOOD COUNT 7390825 LY % 13.6 % 5 Unknown COMPLETE BLOOD COUNT 4859827 MON % 10.2 % 5 Unknown COMPLETE BLOOD COUNT 5335775 EOS % 3.1 % 5 Unknown COMPLETE BLOOD COUNT 9661728 BASO % 0.2 % 5 Unknown COMPLETE BLOOD COUNT 7029423 RDW 13.6 % 5 Unknown COMPLETE BLOOD COUNT 3986911 ABS SAM 7.36 10e9/L 015 Unknown COMPLETE BLOOD COUNT 2392576 ABS LYMPH 1.37 10e9/L 015 Unknown COMPLETE BLOOD COUNT [id number] ABS MONO 1.03 10e9/L 015 Unknown COMPLETE BLOOD COUNT 1398347 ABS EOS 0.31 10e9/L 015 Unknown COMPLETE BLOOD COUNT 6755298 ABS BASO 0.02 10e9/L 015 Unknown COMPLETE BLOOD COUNT 2003399 RDW-SD 42.4 fL 5 Unknown GFR CALC 5237222 GFR AA 51.0L ML/MIN 01/17/2015 Unknow n GFR CALC 9368217 GFR NON-AA 42.0L ML/MIN 01/17/2015 Unkno wn FREE T4 43517 FREE T4 1.30 NG/DL 01/17/2015 Unknown THYROID STIMULATING HORMONE 11125 TSH 4.029 uIU/ML 01/17/2015 Unknown COMPREHENSIVE METABOLIC 42581 AST 28 U/L 2014 Unknown COMPREHENSIVE METABOLIC 15814 ALT 25 IU/L 2014 Unknown COMPREHENSIVE METABOLIC 00235 BUN 21 MG/DL 2014 Unknown COMPREHENSIVE METABOLIC 92404 ALBUMIN 4.7 GM/DL 2014 Unknown COMPREHENSIVE METABOLIC 30199 CHLORIDE 102 MMOL/L 01/17 Unknown COMPREHENSIVE METABOLIC 07623 BILI TOT 0.6 MG/DL 2014 Unknown COMPREHENSIVE METABOLIC 50794 ALK PHOS 44 U/L 2014 Unknown COMPREHENSIVE METABOLIC 05813 SODIUM 137 MMOL/L 01/17 Unknown COMPREHENSIVE METABOLIC 00645 CREATININE 1.62 MG/DL 01/04 Unknown COMPREHENSIVE METABOLIC 36792 CALCIUM 9.7 MG/DL 2014 Unknown COMPREHENSIVE METABOLIC 62576 POTASSIUM 4.5 MMOL/L 01/17 Unknown COMPREHENSIVE METABOLIC 19268 PROT TOT 6.5 GM/DL 2014 Unknown COMPREHENSIVE METABOLIC 28486 Glucose 136 MG/DL 2014 Unknown COMPREHENSIVE METABOLIC 19226 BICARB 24 MMOL/L 2014 Unknown COMPREHENSIVE METABOLIC 09116 ANION GAP 11 MEQ/L 2014 Unknown VITAMIN B 12 64853 VIT B 12 482 PG/ML 01/17/2015 Unknow n URIC ACID 76319 URIC ACID 8.5 MG/DL 08/09/2014 Unknown COMPREHENSIVE METABOLIC 07001 AST 27 U/L 2014 Unknown COMPREHENSIVE METABOLIC 17327 ALT 26 IU/L 2014 Unknown COMPREHENSIVE METABOLIC 09142 BUN 17 MG/DL 2014 Unknown COMPREHENSIVE METABOLIC 23125 ALBUMIN 5.0 GM/DL 2014 Unknown COMPREHENSIVE METABOLIC 80673 CHLORIDE 101 MMOL/L 08/09 Unknown COMPREHENSIVE METABOLIC 77328 BILI TOT 0.7 MG/DL 2014 Unknown COMPREHENSIVE METABOLIC 35199 ALK PHOS 53 U/L 2014 Unknown COMPREHENSIVE METABOLIC 32623 SODIUM 136 MMOL/L 08/09 Unknown COMPREHENSIVE METABOLIC 56183 CREATININE 1.14 MG/DL 09/2014 Unknown COMPREHENSIVE METABOLIC 35764 CALCIUM 9.8 MG/DL 2014 Unknown COMPREHENSIVE METABOLIC 30651 POTASSIUM 4.1 MMOL/L 08/09 Unknown COMPREHENSIVE METABOLIC 96090 PROT TOT 7.5 GM/DL 2014 Unknown COMPREHENSIVE METABOLIC 16643 Glucose 110 MG/DL 2014 Unknown COMPREHENSIVE METABOLIC 86344 BICARB 30 MMOL/L 2014 Unknown COMPREHENSIVE METABOLIC 34973 ANION GAP 5 MEQ/L 2014 Unknown GFR CALC 6862529 GFR AA >60 ML/MIN 08/09/2014 Unknown GFR CALC 5978835 GFR NON-AA >60 ML/MIN 08/09/2014 Unknown FREE T4 04964 FREE T4 1.14 NG/DL 08/09/2014 Unknown GLYCOSYLATED HEMOGLOBIN TEST 86349 A1C HPLC 62946-7 6.8 % 0 08/09/2014 Unknown COMPLETE BLOOD COUNT 6149268 WBC 5.9 10e9/L 08/09/19 15 Unknown COMPLETE BLOOD COUNT [id number] RBC 5.04 10e12/L 2014 Unknown COMPLETE BLOOD COUNT 9279090 HGB 15.2 g/dL 5 Unknown COMPLETE BLOOD COUNT 3660650 HCT DET 44.3 % 5 Unknown COMPLETE BLOOD COUNT 2361216 MCV 87.9 fL 5 Unknown COMPLETE BLOOD COUNT [id number] MCH 30.2 pg 5 Unknown COMPLETE BLOOD COUNT [id number] MCHC 34.3 g/dL 5 Unknown COMPLETE BLOOD COUNT [id number] PLT 262 10e9/L 08/09/19 15 Unknown COMPLETE BLOOD COUNT [id number] MPV 10.9 fL 5 Unknown COMPLETE BLOOD COUNT [id number] SAM % 58.7 % 5 Unknown COMPLETE BLOOD COUNT [id number] LY % 21.5 % 5 Unknown COMPLETE BLOOD COUNT [id number] MON % 14.0 % 5 Unknown COMPLETE BLOOD COUNT [id number] EOS % 5.3 % 5 Unknown COMPLETE BLOOD COUNT [id number] BASO % 0.5 % 5 Unknown COMPLETE BLOOD COUNT [id number] RDW 13.1 % 5 Unknown COMPLETE BLOOD COUNT [id number] ABS SAM 3.46 10e9/L 015 Unknown COMPLETE BLOOD COUNT [id number] ABS LYMPH 1.27 10e9/L 015 Unknown COMPLETE BLOOD COUNT [id number] ABS MONO 0.83 10e9/L 015 Unknown COMPLETE BLOOD COUNT [id number] ABS EOS 0.31 10e9/L 015 Unknown COMPLETE BLOOD COUNT [id number] ABS BASO 0.03 10e9/L 015 Unknown COMPLETE BLOOD COUNT [id number] RDW-SD 41.2 fL 5 Unknown THYROID STIMULATING HORMONE [id number] TSH 5.395 uIU/ML 08/09/2014 Unknown LIPID GROUP [id number] HDL TEST 52 MG/DL 08/09/2014 Unknown LIPID GROUP [id number] TRIG 113 MG/DL 08/09/2014 Unknown LIPID GROUP [id number] TEST LDL 158 MG/DL 08/09/2014 Unknown LIPID GROUP [id number] CHOL 233 MG/DL 08/09/2014 Unknown LIPID GROUP 84152 RCHOL/HDL 4.48 RATIO 08/09/2014 Unknow n LIPID GROUP 84412 NON-HDL CH 181 MG/DL 08/09/2014 Unknow n COMPLETE BLOOD COUNT [id number] WBC 6.8 10e9/L 09/09/19 14 Unknown COMPLETE BLOOD COUNT [id number] RBC 5.18 10e12/L 2013 Unknown COMPLETE BLOOD COUNT [id number] HGB 15.2 g/dL 4 Unknown COMPLETE BLOOD COUNT [id number] HCT DET 44.7 % 4 Unknown COMPLETE BLOOD COUNT [id number] MCV 86.3 fL 4 Unknown COMPLETE BLOOD COUNT [id number] MCH 29.3 pg 4 Unknown COMPLETE BLOOD COUNT [id number] MCHC 34.0 g/dL 4 Unknown COMPLETE BLOOD COUNT [id number] PLT 236 10e9/L 09/09/19 14 Unknown COMPLETE BLOOD COUNT [id number] MPV 11.0 fL 4 Unknown COMPLETE BLOOD COUNT [id number] SAM % 58.2 % 4 Unknown COMPLETE BLOOD COUNT [id number] LY % 21.9 % 4 Unknown COMPLETE BLOOD COUNT [id number] MON % 12.5 % 4 Unknown COMPLETE BLOOD COUNT [id number] EOS % 7.3 % 4 Unknown COMPLETE BLOOD COUNT [id number] BASO % 0.1 % 4 Unknown COMPLETE BLOOD COUNT [id number] RDW 13.6 % 4 Unknown COMPLETE BLOOD COUNT [id number] ABS SAM 3.96 10e9/L 014 Unknown COMPLETE BLOOD COUNT [id number] ABS LYMPH 1.49 10e9/L 014 Unknown COMPLETE BLOOD COUNT [id number] ABS MONO 0.85 10e9/L 014 Unknown COMPLETE BLOOD COUNT [id number] ABS EOS 0.50 10e9/L 014 Unknown COMPLETE BLOOD COUNT [id number] ABS BASO 0.01 10e9/L 014 Unknown COMPLETE BLOOD COUNT [id number] RDW-SD 42.3 fL 4 Unknown COMPREHENSIVE METABOLIC 38812 AST 27 U/L 2013 Unknown COMPREHENSIVE METABOLIC 51362 ALT 30 IU/L 2013 Unknown COMPREHENSIVE METABOLIC 66661 BUN 16 MG/DL 2013 Unknown COMPREHENSIVE METABOLIC 74716 ALBUMIN 4.9 GM/DL 2013 Unknown COMPREHENSIVE METABOLIC 71836 CHLORIDE 99 MMOL/L 2013 Unknown COMPREHENSIVE METABOLIC 86993 BILI TOT 0.7 MG/DL 2013 Unknown COMPREHENSIVE METABOLIC 97545 ALK PHOS 53 U/L 2013 Unknown COMPREHENSIVE METABOLIC 81145 SODIUM 137 MMOL/L 09/08 Unknown COMPREHENSIVE METABOLIC 41112 CREATININE 1.01 MG/DL 11/2013 Unknown COMPREHENSIVE METABOLIC 14770 CALCIUM 10.0 MG/DL 09/08 Unknown COMPREHENSIVE METABOLIC 97051 POTASSIUM 4.4 MMOL/L 09/08 Unknown COMPREHENSIVE METABOLIC 02106 PROT TOT 7.1 GM/DL 2013 Unknown COMPREHENSIVE METABOLIC 81960 Glucose 148 MG/DL 2013 Unknown COMPREHENSIVE METABOLIC 13297 BICARB 30 MMOL/L 2013 Unknown COMPREHENSIVE METABOLIC 70355 ANION GAP 8 MEQ/L 2013 Unknown GFR CALC [id number] GFR AA >60 ML/MIN 09/08/2013 Unknown GFR CALC 1019513 GFR NON-AA >60 ML/MIN 09/08/2013 Unknown FREE T4 89932 FREE T4 1.08 NG/DL 09/08/2013 Unknown GLYCOSYLATED HEMOGLOBIN TEST 98512 A1C HPLC 19527-2 7.3 % 0 09/08/2013 Unknown THYROID STIMULATING HORMONE 04043 TSH 5.454 uIU/ML 09/08/2013 Unknown LIPID GROUP 67647 HDL TEST 59 MG/DL 09/08/2013 Unknown LIPID GROUP 58388 TRIG 92 MG/DL 09/08/2013 Unknown LIPID GROUP 27983 TEST LDL 83 MG/DL 09/08/2013 Unknown LIPID GROUP 97726 CHOL 160 MG/DL 09/08/2013 Unknown LIPID GROUP 33069 RCHOL/HDL 2.71 RATIO 09/08/2013 Unknow n VITAMIN B 12 FOLIC ACID 91509|83955 VIT B 12 467 PG/ML 12/2012 Unknown VITAMIN B 12 FOLIC ACID 32405|25007 FOLIC ACID 12.2 NG/ML Unknown VITAMIN B 12 FOLIC ACID 20689|84610 VIT B 12 467 PG/ML 12/2012 Unknown THYROID STIMULATING HORMONE 07335 TSH 4.557 uIU/ML 03/12/2013 Unknown HEMOGLOBIN A1C (GLYCOSYLATED) 1448881 A1C HPLC 75354-0 7.6 % 03/12/2013 Unknown VITAMIN D TOTAL (25 HYDROXY) 44473 VIT D TOTL 17 NG/ML 03/12/2013 Unknown FREE T4 14807 FREE T4 1.07 NG/DL 03/12/2013 Unknown URIC ACID 08917 URIC ACID 5.2 MG/DL 03/12/2013 Unknown Procedures Procedure Codes Date THER/PROPH/DIAG INJ SC/IM CPT-4: 81183 05/13/2019 TRIAMCINOLONE ACET INJ NOS CPT-4: J3301 05/13/2019 DEXAMETHASONE SODIUM PHOS CPT-4: J1100 05/13/2019 THER/PROPH/DIAG INJ SC/IM CPT-4: 70088 02/22/2019 TRIAMCINOLONE ACET INJ NOS CPT-4: J3301 02/22/2019 FLU VACC PRSV FREE INC ANTIG 65 AND OLDER CPT-4: 30168 04/21/2018 ADMIN INFLUENZA VIRUS VAC CPT-4: G0008 04/21/2018 PRESCRIP TRANSMIT VIA ERX SY CPT-4: G8553 04/21/2018 DESTRUCT PREMALG LESION (Cryosurgery) CPT-4: 44082 FLU VACC PRSV FREE INC ANTIG 65 AND OLDER CPT-4: 08745 04/22/2017 ADMIN INFLUENZA VIRUS VAC CPT-4: G0008 04/22/2017 PRESCRIP TRANSMIT VIA ERX SY CPT-4: G8553 10/10/2016 PRESCRIP TRANSMIT VIA ERX SY CPT-4: G8553 08/29/2015 ROUTINE VENIPUNCTURE CPT-4: 61965 07/26/2015 ASSAY OF FREE THYROXINE CPT-4: 19348 07/26/2015 ASSAY THYROID STIM HORMONE CPT-4: 63098 07/26/2015 COMPREHEN METABOLIC PANEL CPT-4: 32019 07/26/2015 COMPLETE CBC W/AUTO DIFF WBC CPT-4: 87956 07/26/2015 LIPID PANEL CPT-4: 53323 07/26/2015 ASSAY OF PSA TOTAL CPT-4: 56397 07/26/2015 A1C HPLC CPT-4: 72295 07/26/2015 ROUTINE VENIPUNCTURE CPT-4: 04563 01/17/2015 ASSAY OF FREE THYROXINE CPT-4: 66171 01/17/2015 ASSAY THYROID STIM HORMONE CPT-4: 84863 01/17/2015 COMPREHEN METABOLIC PANEL CPT-4: 97469 01/17/2015 COMPLETE CBC W/AUTO DIFF WBC CPT-4: 95530 01/17/2015 A1C HPLC CPT-4: 12737 01/17/2015 VITAMIN B-12 CPT-4: 62855 01/17/2015 PPPS, subseq visit CPT-4: G0439 08/04/2014 PRESCRIP TRANSMIT VIA ERX SY CPT-4: G8553 02/18/2014 FLUZONE, 5ML (Medicare) CPT-4: Q2038 07/22/2013 ADMIN INFLUENZA VIRUS VAC CPT-4: G0008 07/22/2013 PRESCRIP TRANSMIT VIA ERX SY CPT-4: G8553 04/28/2013 ROUTINE VENIPUNCTURE CPT-4: 74243 03/12/2013 VITAMIN D TOTAL (25 HYDROXY) CPT-4: 33417 03/12/2013 VITAMIN B 12 FOLIC ACID CPT-4: 43964|74017 03/12/2013 A1C GLYCOSYLATED HEMOGLOBIN TEST CPT-4: 10885 013 ASSAY OF BLOOD/URIC ACID CPT-4: 68781 03/12/2013 ASSAY OF FREE THYROXINE CPT-4: 62034 03/12/2013 ASSAY THYROID STIM HORMONE CPT-4: 11717 03/12/2013 CUR TOBACCO NON-USER CPT-4: G8457 03/11/2013 [...] 1: 156/70 Code: 8480-6 BMI: 35.0 Code: 97198-3 Heart Rate 1: 68 bpm Height: 5'10" Respiratory Rate: 20 bpm SpO2: 95% Tempera ture: 36.5 (C) / 97.7 (F) Weight: 244 lbs 04/21/2018 Blood Pressure 1: 124/80 Code: 8480-6 BMI: 34.4 Code: 41512-3 Heart Rate 1: 80 bpm Height: 5'10" Respiratory Rate: 20 bpm SpO2: 96% Tempera ture: 37.0 (C) / 98.6 (F) Weight: 240 lbs 01/06/2018 Blood Pressure 1: 138/82 Code: 8480-6 BMI: 33.9 Code: 45178-7 Heart Rate 1: 96 bpm Height: 5'10" Respiratory Rate: 24 bpm SpO2: 98% Tempera ture: 35.9 (C) / 96.6 (F) Weight: 236 lbs 10/22/2017 Blood Pressure 1: 144/70 Code: 8480-6 BMI: 34.7 Code: 78364-6 Heart Rate 1: 72 bpm Height: 5'10" Respiratory Rate: 20 bpm SpO2: 96% Tempera ture: 36.9 (C) / 98.4 (F) Weight: 242 lbs 04/22/2017 Blood Pressure 1: 146/82 Code: 8480-6 BMI: 32.9 Code: 94060-0 Heart Rate 1: 104 bpm Height: 5'10" Respiratory Rate: 20 bpm SpO2: 95% Tempera ture: 36.9 (C) / 98.5 (F) Weight: 229 lbs 10/10/2016 Blood Pressure 1: 124/64 Code: 8480-6 BMI: 32.9 Code: 81116-3 Heart Rate 1: 64 bpm Height: 5'10" [...] 1: 146/90 Code: 8480-6 BMI: 34.1 Code: 36415-8 Heart Rate 1: 80 bpm Height: 5'10" Respiratory Rate: 20 bpm Temperature: 36 .8 (C) / 98.2 (F) Weight: 238 lbs 01/17/2015 Blood Pressure 1: 116/60 Code: 8480-6 BMI: 32.7 Code: 78729-1 Heart Rate 1: 84 bpm Height: 5'10" Respiratory Rate: 20 bpm Temperature: 36 .7 (C) / 98.0 (F) Weight: 228 lbs 09/29/2014 Blood Pressure 1: 136/78 Code: 8480-6 BMI: 33.9 Code: 52085-1 Heart Rate 1: 80 bpm Height: 5'10" Respiratory Rate: 20 bpm Temperature: 36 .6 (C) / 97.9 (F) Weight: 236 lbs 08/04/2014 Blood Pressure 1: 132/70 Code: 8480-6 BMI: 32.9 Code: 53670-9 Heart Rate 1: 72 bpm Height: 5'10" Respiratory Rate: 20 bpm Temperature: 36 .7 (C) / 98.0 (F) Weight: 229 lbs 02/18/2014 Blood Pressure 1: 124/82 Code: 8480-6 Heart Rate 1: 82 bpm Respiratory Rate: 18 bpm Temperature: 36.4 (C) / 97.5 (F) Weight: 232 lbs 07/29/2013 Blood Pressure 1: 146/80 Code: 8480-6 BMI: 34.1 Code: 34646-3 Heart Rate 1: 64 bpm Height: 5'10" Respiratory Rate: 20 bpm Temperature: 36 .9 (C) / 98.5 (F) Weight: 238 lbs 05/26/2013 Blood Pressure 1: 142/90 Code: 8480-6 BMI: 34.0 Code: 00923-7 Heart Rate 1: 84 bpm Height: 5'10" Respiratory Rate: 20 bpm Temperature: 36 .7 (C) / 98.0 (F) Weight: 237 lbs 04/28/2013 Blood Pressure 1: 118/78 Code: 8480-6 BMI: 32.9 Code: 80600-1 Heart Rate 1: 74 bpm Height: 5'10" Respiratory Rate: 20 bpm Temperature: 36 .1 (C) / 97.0 (F) Weight: 229 lbs 03/11/2013 Blood Pressure 1: 146/80 Code: 8480-6 BMI: 31.5 Code: 25985-8 Heart Rate 1: 80 bpm Height: 6' [...] and respiratory abnormality[ICD10: R06.09] Xiomara BETTENCOURT DO [facility] CPT-4: 45492 10/27/2019 ([id number]) OFFICE/OUTPATIENT VISIT EST Diagnosis: Chronic obstructive pulmonary disease, unspecified[ICD10: J44.9] Diagnosis: DM w/o complication type II, uncontrolled[ICD10: E11.65] Diagnosis: Edema[ICD10: R60.9] Xiomara BETTENCOURT [facility] CPT-4: 86001 10/20/2019 ([id number]) OFFICE/OUTPATIENT VISIT EST Diagnosis: Other dyspnea and respiratory abnormality[ICD10: R06.09] Diagnosis: Obstructive sleep apnea[ICD10: G47.33] Diagnosis: Hypotension[ICD10: I95.9] Xiomara Bettencuort [facility] CPT -4: 04935 10/12/2019 ([id number]) OFFICE/OUTPATIENT VISIT EST Diagnosis: Upper respiratory infection[ICD10: J06.9] Pennie BETTENCOURT [facility] CPT-4: 50805 06/02/2019 ([id number]) OFFICE/OUTPATIENT VISIT EST Diagnosis: Sinusitis[ICD10: J32.9] Diagnosis: Allergic rhinitis[ICD10: J30.9] Pennie BETTENCOURT [facility] CPT-4: 36681 05/13/2019 ([id number]) OFFICE/OUTPATIENT VISIT EST Diagnosis: Pneumonia[ICD10: J18.9] Pennie MCBRIDE [facility] CPT-4: 45500 04/26/2019 ([id number]) OFFICE/OUTPATIENT VISIT EST Diagnosis: Acute sinusitis, unspecified[ICD10: J01.90] Pennie BETTENCOURT [facility] CPT-4: 80199 02/22/2019 ([id number]) OFFICE/OUTPATIENT VISIT EST Diagnosis: Cervicalgia[ICD10: M54.2] Xiomara MCGEE [facility] CPT-4: 43802 11/25/2018 ([id number]) OFFICE/OUTPATIENT VISIT EST Diagnosis: Acute sinusitis, unspecified[ICD10: J01.90] Diagnosis: Myalgia, unspecified site[ICD10: M79.10] Diagnosis: Cervicalgia[ICD10: M54.2] Xiomara MCGEE [facility] CPT-4: 65697 11/19/2018 ([id number]) OFFICE/OUTPATIENT VISIT EST Diagnosis: Low back pain[ICD10: M54.5] Diagnosis: Essential (primary) hypertension[ICD10: I10] Diagnosis: 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, 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] Diagnosis: Paroxysmal atrial fibrillation[ICD10: I48.0] [facility] CPT-[facility]: 95650 07/22/2018 ([id number]) OFFICE/OUTPATIENT VISIT EST Diagnosis: Type 2 diabetes mellitus with diabetic neuropathy, unspecified[ICD10: E11.40] Diagnosis: Hyperlipidemia, unspecified[ICD10: E78.5] Diagnosis: Essential (primary) hypertension[ICD10: I10] Diagnosis: Chronic kidney disease, stage 1[ICD10: N18.1] Diagnosis: Benign prostatic hyperplasia with lower urinary tract symptoms[ICD10: N40.1] Diagnosis: FLU VACCINE[ICD10: Z23] Xiomara LARA [employer] [facility] [employer] [facility] CPT-4: 96181 04/21/2018 OFFICE/OUTPATIENT VISIT EST Diagnosis: Type 2 diabetes mellitus with hyperglycemia[ICD10: E11.65] Diagnosis: Essential (primary) hypertension[ICD10: I10] Diagnosis: Mixed hyperlipidemia[ICD10: E78.2] Diagnosis: Other fatigue[ICD10: R53.83] Pennie MCBRIDE [employer] [facility] CPT-4: 68678 01/06/2018 ([id number]) OFFICE/OUTPATIENT VISIT EST Diagnosis: Type 2 diabetes mellitus with diabetic neuropathy, unspecified[ICD10: E11.40] Diagnosis: Essential (primary) hypertension[ICD10: I10] Diagnosis: Pain in right thigh[ICD10: M79.651] Diagnosis: Pain in left leg[ICD10: M79.605] Diagnosis: Localized swelling, mass and lump, left lower limb[ICD10: R22.42] Diagnosis: OSTEOARTHRISIS MULTI SITES[ICD10: M19.90] Diagnosis: FLU VACCINE[ICD10: Z23] Xiomara Gan [facility] [employer] [facility] CPT-4: 39756 04/22/2017 ([id number]) OFFICE/OUTPATIENT VISIT EST Diagnosis: Essential (primary) hypertension[ICD10: I10] Diagnosis: Type 2 diabetes mellitus with hyperglycemia[ICD10: E11.65] Diagnosis: Angina pectoris, unspecified[ICD10: I20.9] Xiomara BETTENCOURT [employer] [facility] CPT-4: 34136 10/10/2016 ([id number]) OFFICE/OUTPATIENT VISIT EST Diagnosis: Cough[ICD10: R05] Diagnosis: Wheezing[ICD10: R06.2] Diagnosis: Chronic obstructive pulmonary disease, unspecified[ICD10: J44.9] Shannan BETTENCOURT [employer] [facility] CPT-4: 14128 08/31/2015 OFFICE/OUTPATIENT VISIT EST Diagnosis: Acute bronchitis, unspecified[ICD10: J20.9] Diagnosis: Wheezing[ICD10: R06.2] Kelsie Dolan [facility] CPT-4: 45812 08/29/2015 ([id number]) OFFICE/OUTPATIENT VISIT EST Diagnosis: Type 2 diabetes mellitus with diabetic neuropathy, unspecified[ICD10: E11.40] Diagnosis: Hyperlipidemia, unspecified[ICD10: E78.5] Diagnosis: Essential (primary) hypertension[ICD10: I10] Diagnosis: Encounter for general adult medical examination without abnormal findings[ICD10: Z00.00] Xiomara BETTENCOURT [employer] [facility] CPT-4: 76705 07/26/2015 OFFICE/OUTPATIENT VISIT EST Diagnosis: Type 2 diabetes mellitus with hyperglycemia[ICD10: E11.65] Diagnosis: Unspecified osteoarthritis, unspecified site[ICD10: M19.90] Diagnosis: Other instability, right knee[ICD10: M25.361] Kelsie BETTENCOURT [facility] CPT-4: 46655 07/24/2015 ([id number]) OFFICE/OUTPATIENT VISIT EST Diagnosis: Pain in leg, unspecified[ICD10: M79.606] Diagnosis: Type 2 diabetes mellitus with diabetic neuropathy, unspecified[ICD10: E11.40] Xiomara BTETENCOURT [facility] CPT-4: 00607 05/01/2015 ([id number]) OFFICE/OUTPATIENT VISIT EST Diagnosis: MALAISE AND FATIGUE[ICD9: 780.79] Diagnosis: 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, 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] Diagnosis: CAD[ICD9: 414.00] Diagnosis: ANEMIA NOS[ICD9: 285.9] Xiomara MCBRIDE ER [facility] CPT-4: 15459 01/17/2015 ([id number]) OFFICE/OUTPATIENT VISIT EST Diagnosis: Skin lesion[ICD9: 709.9] Xiomara HAND [facility] CPT-4: 72042 09/29/2014 OFFICE/OUTPATIENT VISIT EST Diagnosis: GASTROENTERITIS[ICD9: 558.9] Diagnosis: GERD[ICD9: 530.81] Kelsie VanPrabhakarre [facility] CPT-[facility]: 94589 02/18/2014 ([id number]) OFFICE/OUTPATIENT VISIT EST Diagnosis: 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I, UNCONTROLLED[ICD9: 250.02] [facility] CPT-[facility]: 55509 07/29/2013 ([id number]) OFFICE/OUTPATIENT VISIT EST Diagnosis: FLU VACCINE[ICD9: V04.81] Xiomara MAGALLON [facility] CPT-4: 61983 07/22/2013 ([id number]) OFFICE/OUTPATIENT VISIT EST Diagnosis: 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I, UNCONTROLLED[ICD9: 250.02] Diagnosis: HYPERTENSION[ICD9: 401.9] Xiomara MAGALLON [facility] CPT-4: 04453 05/26/2013 ([id number]) OFFICE/OUTPATIENT VISIT EST Diagnosis: MONONEURITIS[ICD9: 355.9] Diagnosis: RESTLESS LEGS SYNDROME[ICD9: 333.94] Diagnosis: HYPERTENSION[ICD9: 401.9] Diagnosis: CAD[ICD9: 414.00] Diagnosis: Weakness[ICD9: 780.79] Xiomara [facility] CPT-4: 03150 04/28/2013 ([id number]) OFFICE/OUTPATIENT VISIT EST Diagnosis: 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[ICD9: 250.01] Diagnosis: MONONEURITIS[ICD9: 355.9] Diagnosis: HYPERLIPIDEMIA NEC/NOS[ICD9: 272.4] Diagnosis: CAD[ICD9: 414.00] Xiomara BETTENCOURT [facility] CPT-4: 16260 03/12/2013 OFFICE/OUTPATIENT VISIT NEW Diagnosis: CAD[ICD9: 414.00] Diagnosis: HYPERLIPIDEMIA NEC/NOS[ICD9: 272.4] Diagnosis: HYPERTENSION[ICD9: 401.9] Diagnosis: Neuropathy[ICD9: 355.9] Diagnosis: RESTLESS LEGS SYNDROME[ICD9: 333.94] Xiomara Gan [employer] CPT-4: 54839 03/11/2013 Plan of Care Planned Activity Notes [...] R06.09 10/27/2019 Patient Education: gabapentin- [employer] Coupon [phone] https://www.[email or web address]/Really Che[employer] Geeks/resources/getResource/61/[email or web address] Completed 10/27/2019 Visit Diagnosis Plan: DM w/o [...] : J44.9 10/20/2019 Appointment: Xiomara Bettencourt WPtel: [address] [place], [place] [phone] [place] FOLLOW UP 10/20/2019 Patient Education: furosemide- [employer] Coupon [phone] https://www.HooftyMatch/[employer]/resources/getResource/61/[email or web address]-[email or web address] Completed 10/20/2019 Visit Diagnosis Plan: Hypotension Discussion: [...] G47.33 10/12/2019 Appointment: Xiomara Bettencourt WPtel: [address] [place] [address] TELEMEDICINE 10/12/2019 Appointment: Xiomara Bettencourt WPtel: [address] [place] [address] [place] RESCHEDULED 09/23/2019 Care Plan: COMPREHEN METABOLIC PANEL SERGEI NC : 76252-7 Pending 09/20/2019 Care Plan: LIPID PANEL LOINC : 11528-2 Pending 09/20/2019 Care Plan: A1C HPLC LOINC : 08738-7 Pending 09/20/2019 Care Plan: COMPLETE CBC W/AUTO DIFF WBC LOINC : 27744-4 Pending 09/20/2019 Visit Diagnosis Plan: Upper respiratory [...] : J06.9 06/02/2019 Appointment: Pennie Pizarro [address] [place], [place] [phone] ACUTE ILLNESS 06/02/2019 Visit Diagnosis Plan: Allergic [...] : J30.9 05/13/2019 Appointment: Pennie Pizarro [address] [place], [place] [phone] ACUTE ILLNESS 05/13/2019 Appointment: Xiomara Bettencourt WPtel: [phone] [facility] CANCELED 04/27/2019 Visit Diagnosis Plan: Pneumonia Discussion: will obtai n records from urgent care. instructed to finish out doxy. no rhonchi or crackles auscultated. symbicort sample given to patient with instructions to use bid. call office later this week with new or worsening symptoms. ICD-9 : 486 ICD-10 : J18.9 04/26/2019 Appointment: Pennie Pizarro [address] [place], [place] [phone] FOLLOW UP 04/26/2019 Visit Diagnosis Plan: Acute [...] 461.9 ICD-10 : J01.90 02/22/2019 Appointment: Pennie iPzarro [address] [place], [place] [phone] ACUTE ILLNESS 02/22/2019 Patient Education: prednisone- [employer] Coupon [phone] https://www.Really Che[employer] Geeks.Dotstudioz/samplemd/resources/getResource/61/[email or web address] Completed 02/22/2019 Visit Diagnosis Plan: Cervicalgia Discussion: Check Ce rvical Spine X-ray Will likely need PT ICD-9 : 723.1 ICD-10 : M54.2 11/25/2018 Appointment: Xiomara Bettencourt WPtel: [phone] [facility] ACUTE ILLNESS 11/25/2018 Visit Plan: Saline nasal [...] Xiomara Bettencourt WPtel[facility] [facility] 11/19/2018 Patient Education: baclofen- [employer] Coupon [phone] https://www.Really Che[employer] Geeks.Dotstudioz/samplemd/resources/getResource/61/[email or web address] Completed 11/19/2018 Visit Diagnosis Plan: Essential (primary) [...] Xiomara Bettencourt WPtel: [facility] [place] [phone] [place] FOLLOW UP 07/22/2018 Visit Diagnosis Plan: Benign prostatic h yperplasia with lower urinary tract symptoms Discussion: Trial of flomax Call in 1 mo [facility] on how doing Follow Up: 4 [...] Xiomara Bettencourt WPtel: [facility] US FOLLOW UP 04/21/2018 Patient Education: Patient [...] Follow Up: 3 months Discussion: will call [facility] for recent labs. instructed patient that we will call him later today if additional labs are needed. instructed patient to continue working on diet and exercise. will adjust medications as needed based on recent labs. ICD-9 : 250.02 ICD-10 : E11.65 01/06/2018 Appointment: Pennie Pizarro [address] [place] [address] MEDICATION REVIEW 01/06/2018 Patient Education: Patient Medication Summary Completed 01/06/2018 Appointment: Xiomara Bettencourt WPtel: [address] [place] [address] NO SHOW 01/05/2018 Appointment: Xiomara Bettencourt WPtel: [address] [place] [address] [place] CANCELED 12/31/2017 Visit Diagnosis Plan: Actinic keratosis Discussion: Cr yotherapy as above but will see derm if lesions do not resolve ICD-9 : 702.0 ICD-10 : L57.0 10/22/2017 Appointment: Xiomara Bettencourt WPtel: [address] [place] [address] ACUTE ILLNESS 10/22/2017 Patient Education: Patient Medication [...] : M19.90 04/22/2017 Appointment: Xiomara Bettencourt WPtel: [address] [place], [place] [address] [place] FOLLOW UP 04/22/2017 Patient Education: Patient Medication Summary Completed 04/22/2017 Patient Education: Patient Medication Summary Completed 04/16/2017 Care Plan: COMPREHEN METABOLIC PANEL SERGEI NC : 40028-2 Pending 04/16/2017 Care Plan: LIPID PANEL LOINC : 90424-2 Pending 04/16/2017 Care Plan: CBC Pending 04/16/2017 Care Plan: A1C HPLC LOINC : 83283-7 Pending 04/16/2017 Ref[facility]enc[facility] [facility] [facility] Confirmed 10/14/2016 Visit [...] Xiomara Bettencourt WPtel: [facility] [facility] 10/10/2016 Patient Education: Patient Medication Summary Completed 10/10/2016 Patient Education: Patient Medication Summary Completed 09/16/2016 Care Plan: COMPREHEN METABOLIC PANEL SERGEI NC : 71768-3 Pending 09/16/2016 Care Plan: ASSAY THYROID STIM HORMONE Pen ding 09/16/2016 Care Plan: ASSAY OF FREE THYROXINE Pendin g 09/16/2016 Care Plan: LIPID PANEL LOINC : 39132-2 Pending 09/16/2016 Care Plan: CBC Pending 09/16/2016 Care Plan: A1C HPLC LOINC : 38221-0 Pending 09/16/2016 Visit Plan: CXR now to further evaluate symptoms Suspect viral since he has been on 2 rounds of antibiotics If chronic lung disease evident, 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 given today with instructions on use Continue oral prednisone, would like to avoid injection if possible considering his DM status and he is stable right now Continue albuterol PRN Will call with CXR results 08/31/2015 Appointment: Shannan Grimes [address] [place] [address] 08/31 confirmed- SP ACUTE ILLNESS 08/31/2015 Patient Education: Patient Medication Summary Completed 08/31/2015 Visit Plan: Albuterol INH via SVN every 4 hours Prednisone 20 mg PO BID Notify for worsening symptoms 08/29/2015 Appointment: Kelsie Grubbs WPtel: [address] [place], [place] [phone] ACUTE ILLNESS 08/29/2015 Patient Education: Patient Medication Summary Completed 08/29/2015 Appointment: Xiomara Bettencourt WPtel: [address] [place], [place] [phone] LAB 07/26/2015 Patient Education: Patient Medication Summary Completed 07/26/2015 Visit Plan: Return in am for fasting lab s - CBC, CMP, TSH, Free T4, HgbA1C Change Levemir to Toujeo - Continue 35 Units q am - sample given Start physical Therapy for increased quadriceps strengthening and decreased pain in knees, bilaterally. 07/24/2015 Appointment: Kelsie Grubbs WPtel: [address] [place] [address] 07/21 appt confirmed cn FOLLOW UP 07/24/19 16 Appointment: Humera Kelsie M WPtel: [address] [place] [address] [place] FOLLOW UP 07/24/2015 Patient Education: Patient [...] insulin 05/01/2015 Appointment: Xiomara Bettencourt WPtel: [address] [place] [address] 04/28 confirmed~sl ACUTE ILLNESS 05/01/2015 Patient Education: Patient Medication Summary Completed 05/01/2015 Patient Education: Patient Medication Summary Completed 01/19/2015 Care Plan: URINALYSIS AUTO W/O SCOPE SERGEI NC : 45669-7 Pending 01/19/2015 Visit Plan: I have went through his medi cations in past and stopped meds but he adjusts his meds on his own and has restarted some Stop Amaryl Once again discussed not using indomethacin routinely due to taking plavix and aspirin daily and group home use is dangerous Check CBC, CMP, TSH, free T4, B12 and HbA1C Patient has seen Cardiology recently but no cardiac cath done--had chemical stress test 01/17/2015 Appointment: Xiomara Bettencourt WPtel: [address] [place] [address] 01/16 vm cn ACUTE ILLNESS 01/17/2015 Patient Education: Patient Medication Summary Completed 01/17/2015 Visit Plan: See Dr. Garvin for removal 09/29/2014 Appointment: Xiomara Bettencourt WPtel: [address] [place] [address] ACUTE ILLNESS 09/29/2014 Referral: oClt Garvin WPtel: [address] [place] [address] Referral Initiated 09/29/2014 Patient Education: Patient Medication Summary Completed 09/29/2014 Visit Plan: Check CBC, CMP, TSH, free T4 , HbA1C, Lipids Accuchecks daily alternating times Patient has been adjusting own meds and has not taken any cholesterol meds for sometime Will check into surgery on right knee at [facility] Check carotid dopplers 08/04/2014 Appointment: Xiomara Bettencourt WPtel: [address] [place] [address] Annual Well Visit 08/04/2014 Patient Education: Patient Medication Summary Completed 08/04/2014 Appointment: Kelsie Grubbs WPtel: [address] [place] [address] ACUTE ILLNESS 02/18/2014 Patient Education: Patient Medication Summary Completed 02/18/2014 Patient Education: [facility] [place] - [employer] - 18+ - Dynamic Portal ID Completed 02/18/2014 Appointment: Xiomara Bettencourt WPtel: [address] [place] [address] LAB 09/08/2013 Visit Plan: Check fasting lab in 1mo Con tinue Lantus and accuchecks at least BID 07/29/2013 Appointment: Xiomara Bettencourt WPtel: [address] [place] [address] FOLLOW UP 07/29/2013 Patient Education: Patient Medication Summary Completed 07/29/2013 Appointment: Xiomara Bettencourt WPtel: [address] [place] [address] US INJECTION 07/22/2013 Patient Education: Patient Medication Summary Completed 07/22/2013 Visit Plan: Pt has been self-adjusting m eds Stop metformin and amaryl Use Levemir 25u sc BID and call in 1wk with BS readings 05/26/2013 Appointment: Xiomara Bettencourt WPtel: [address] [place] [address] [place] FOLLOW UP 05/26/2013 Patient Education: Patient Medication Summary Completed 05/26/2013 Visit Plan: DC Metformin Increase Lantus to 30u sc daily Change lisinopril to lisinopril HCT 20/25mg q AM Continue Gabapentin at current dose 04/28/2013 Appointment: Xiomara Bettencourt WPtel: [address] [place], [place] [id number] FOLLOW UP 04/28/2013 Patient Education: Patient Medication Summary Completed 04/28/2013 Appointment: Xiomara Bettencourt WPtel: [address] [place], [place] [id number] [place] LAB 03/12/2013 Patient Education: Patient Medication Summary Completed 03/12/2013 Visit Plan: Trial of neurontin 400mg q H S Obtain most recent lab results Change levemir to lantus per pt request Pt goes for sleep study tonite 03/11/2013 Appointment: Xiomara Bettencourt WPtel: [id number] 02/01paperwork mailed 03/10 confirmed with spouse NEW PATIENT 11/2012 Patient Education: Patient Medication Summary Completed 03/11/2013 Instructions Comment . Saline nasal flushes prn. Tylenol/Motr in prn headache. Notify if persists/symptoms worsening. . 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 Check [...]
--- OUTSIDE RECORDS SUMMARY | 2020-02-02 21:40 | XMS REPORT | CCD ---
Author Author Sheng Bettencourt D.O. 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 Name Role Phone PP Unavailable CCM Unavailable Summary Purpose Interface Exchange Insurance Providers Payer name Policy type / Coverage type Covered green party ID Effective Begin Date Effective End Date WPS MEDICARE PART [place] Medicare Part B [id number] 2018 Unknown [facility] Medicare Part B [id number] 2018 Un known Family history Mother Diagnosis Age At Onset Diabetes mellitus Type 2 Unknown Hypercholesterolemia Unknown Father Diagnosis Age At Onset No Family Disease Entered N/A Social History Social History Element Codes Description Effective Dates Marital status Unknown 03/11/2013 Number of children Unknown 4 03/11/2013 Employment Unknown Retired 03/11/[address]: 1081519 Former smoker 03/11/[address]: 337351 Currently drinks alc ohol Socially 03/11/2013 Has [...] chloride ER 20 mEq tablet,extended release RxNorm: 757705 1 Tablet(s) Oral QD to take with lasix 10/20/2019 11/19/2019 Active furosemide 40 mg tablet RxNorm: 036552 1 Tablet(s) Oral QAM for swelling 10/20/2019 11/19/2019 Active albuterol sulfate HFA 90 mcg/actuation aerosol inhaler RxNor m: 8987965 1-2 Puff(s) Inhalation as needed 10/12/2019 No Stop Date Active Zyrtec 10 mg tablet RxNorm: 0997926 1 Tablet(s) Oral QAM 10/12/2019 No Stop Date Active aspirin 81 mg tablet,delayed release RxNorm: 187893 1 Tablet(s) Oral QD 10/12/2019 No Stop Date Active Symbicort 160 mcg-4.5 mcg/actuation HFA aerosol inhaler RxNo rm: 1740780 2 Puff(s) Inhalation QD 10/12/2019 No Stop Date Active lisinopril 20 mg tablet RxNorm: 828040 1 Tablet(s) Oral QD 10/12/19 20 01/10/2020 Active simvastatin 20 mg tablet RxNorm: 339722 1 Tablet(s) Ora l QD Needs updated fasting labs 09/20/2019 12/19/2019 Active Needs updated fa sting labs before 90 day refill Flomax 0.4 mg capsule RxNorm: 281551 TAKE TWO CAPSULES BY MOUTH EVERY EVENING 08/03/2019 No Stop Date Active gabapentin 400 mg capsule RxNorm: 509050 TAKE ONE CAPSU LE BY MOUTH EVERY EVENING 08/02/2019 No Stop Date Active simvastatin 20 mg tablet RxNorm: 366975 1 Tablet(s) Ora l QD Needs updated fasting labs 07/21/2019 08/19/2019 Inactive Needs updated fa sting labs before 90 day refill simvastatin 20 mg tablet RxNorm: 952633 1 Tablet(s) Ora l QD Needs updated fasting labs 06/23/2019 07/20/2019 Inactive Needs updated fa sting labs before 90 day refill Flomax 0.4 mg capsule RxNorm: 145519 1 Capsule(s) Oral QD 05/13/2019 10/19/2019 Inactive Flomax 0.4 mg capsule RxNorm: 018550 TAKE TWO CAPSULES BY MOUTH EVERY EVENING 03/19/2019 05/12/2019 Inactive Augmentin 500 mg-125 mg tablet RxNorm: 164975 1 Tablet(s) PO BID 03/03/2019 Inactive baclofen 10 mg tablet RxNorm: 973179 TAKE ONE TABLET BY MOUTH EVERY NIGHT AT BEDTIME FOR PAIN OR SPASMS 01/14/2019 05/12/2019 Inactive Flomax 0.4 mg capsule RxNorm: 636801 TAKE TWO CAPSULES BY MOUTH EVERY EVENING 01/12/2019 03/18/2019 Inactive gabapentin 400 mg capsule RxNorm: 409403 1 Capsule(s) PO QPM 201806/27/2019 Inactive baclofen 10 mg tablet RxNorm: 545761 1 Tablet(s) PO QHS for my n/spasm 12/15/2018 01/13/2019 Inactive simvastatin 20 mg tablet RxNorm: 758626 TAKE ONE TABLET BY MOUT H DAILY 12/11/2018 06/22/2019 Inactive OneTouch Ultra Blue Test Strip RxNorm: Use 1 rigoberto t strip three times daily to check blood sugar (Dx:E11.65) 12/07/2018 No Stop Date Active gabapentin 400 mg capsule RxNorm: 774450 TAKE ONE CAPSU LE BY MOUTH EVERY EVENING 12/04/2018 12/29/2018 Inactive baclofen 10 mg tablet RxNorm: 652312 1 Tablet(s) PO QHS for my n/spasm 11/19/2018 12/15/2018 Inactive Flomax 0.4 mg capsule RxNorm: 583765 2 Capsule(s) PO QPM 09/15/2018 0 12/13/2018 Inactive WOULD LIKE 90DS!!! gabapentin 400 mg capsule RxNorm: 566737 TAKE ONE CAPSU LE BY MOUTH EVERY EVENING 07/21/2018 10/18/2018 Inactive simvastatin 20 mg tablet RxNorm: 650554 1 Tablet(s) PO QD 06/15/2018 12/10/2018 Inactive Flomax 0.4 mg capsule RxNorm: 011007 TAKE TWO CAPSULES BY MOUTH EVERY EVENING 06/02/2018 09/15/2018 Inactive WOULD LIKE 90DS!!! Flomax 0.4 mg capsule RxNorm: 032670 2 Capsule(s) PO QPM 04/21/2018 1 07/20/2017 Inactive simvastatin 20 mg tablet RxNorm: 956939 1 Tablet(s) PO QD Take 1 tablet by mouth daily. Patient due for labwork before further refill. 04/06/20182017 Inactive simvastatin 20 mg tablet RxNorm: 922007 Tablet(s) TAKE ONE TABLET BY MOUTH DAILY 03/25/2018 06/15/2018 Inactive simvastatin 20 mg tablet RxNorm: 601042 Tablet(s) TAKE ONE TABLET BY MOUTH DAILY due for appt 12/29/2017 03/25/2018 Inactive simvastatin 20 mg tablet RxNorm: 682709 TAKE ONE TABLET BY MOUT H DAILY 09/03/2017 12/29/2017 Inactive simvastatin 20 mg tablet RxNorm: 994867 1 Tablet(s) PO QD 10/22/2016 11/18/2018 Inactive isosorbide mononitrate ER 60 mg tablet,extended release 24 h r RxNorm: 294341 1 Tablet(s) PO QD 10/22/2016 04/21/2017 Inactive isosorbide mononitrate ER 60 mg tablet,extended release 24 h r RxNorm: 672814 1 Tablet(s) PO QD 10/10/2016 10/21/2016 Inactive simvastatin 20 mg tablet RxNorm: 934199 1 Tablet(s) PO QD 10/10/2016 10/21/2016 Inactive gabapentin 400 mg capsule RxNorm: 166628 1 Capsule(s) PO QPM 201609/20/2016 Inactive Toujeo SoloStar 300 unit/mL (1.5 mL) subcutaneous insulin pe n RxNorm: 3129915 35 Unit(s) SQ QAM 07/23/2016 07/22/2016 Inactive Toujeo SoloStar 300 unit/mL (1.5 mL) subcutaneous insulin pe n RxNorm: 0653046 40 Unit(s) SQ QAM 09/01/2015 No Stop Date Active Symbicort 160 mcg-4.5 mcg/actuation HFA aerosol inhaler RxNo rm: 7966625 2 Puff(s) INH BID 08/31/2015 09/09/2015 Inactive prednisone 20 mg tablet RxNorm: 861892 1 Tablet(s) PO BID 08/29/2015 09/02/2015 Inactive albuterol sulfate 2.5 mg/3 mL (0.083 %) solution for n ebulization RxNorm: 345576 1 Unit(s) INH Q4H as needed 08/29/2015 10/09/2016 Inactive levothyroxine 75 mcg tablet RxNorm: 967621 1 Tablet(s) PO QD 201507/27/2015 Inactive levothyroxine 75 mcg tablet RxNorm: 941551 1 Tablet(s) PO QD 201511/18/2018 Inactive levothyroxine 75 mcg tablet RxNorm: 101533 1 Tablet(s) PO QD 201507/27/2015 Inactive lisinopril 20 mg-hydrochlorothiazide 25 mg tablet RxNorm: 19 7887 TAKE ONE TABLET BY MOUTH EVERY MORNING. REPLACES PLAIN LISINOPRIL 03/06/2015 04/21/2017 Inactive lisinopril 20 mg-hydrochlorothiazide 25 mg tablet RxNorm: 19 7887 TAKE ONE TABLET BY MOUTH EVERY MORNING. REPLACES PLAIN LISINOPRIL 09/08/2014 03/05/2015 Inactive allopurinol 100 mg tablet RxNorm: 751384 1 Tablet(s) PO BID 015 10/09/2016 Inactive [SAVINGS FOR NON-COVERED YULIA GS -- BIN:[id number], PCN: [id number], Group: [id number], ID# [id number], Questions: . THIS IS NOT INSURANCE.] levothyroxine 50 mcg tablet RxNorm: 247613 1 Tablet(s) PO QD 201407/26/2015 Inactive [AttnRPh: Saving apply/adjud icate RxGRP:SG20 RxBIN:[id number] RxPCN: ID#:[id number]] Zegerid 40 mg-1.1 gram capsule RxNorm: 257243 1 Capsule(s) PO QD 03/03/2014 Inactive [AttnRPh: Saving apply/adjud icate RxGRP:SG20 RxBIN:[id number] RxPCN:HT ID#:[id number]] ondansetron 8 mg disintegrating tablet RxNorm: 792780 1 Tablet(s) PO Q8H as needed for [...] 07/28/2013 Inactive gabapentin 400 mg capsule RxNorm: 875399 1 Capsule(s) PO QPM 201207/28/2013 Inactive gabapentin 400 mg capsule RxNorm: 869206 1 Capsule(s) PO QPM 201206/26/2013 Inactive lisinopril 20 mg-hydrochlorothiazide 25 mg tablet RxNorm: 82 3971 1 Tablet(s) PO QAM replaces plain lisinopril 04/28/2013 07/29/2013 Inactive gabapentin 400 mg capsule RxNorm: 058241 1 Capsule(s) PO QPM 201204/27/2013 Inactive gabapentin 400 mg capsule RxNorm: 603293 1 Capsule(s) PO QPM 201203/10/2013 Inactive gabapentin 400 mg capsule RxNorm: 539841 1 Capsule(s) PO QPM 201203/14/2013 Inactive Lantus Solostar 100 unit/mL (3 mL) Sub-Q Insulin Pen RxNorm: 669247 20 Unit(s) SQ QPM 03/11/2013 03/15/2013 Inactive Toujeo SoloStar 300 unit/mL (1.5 mL) subcutaneous insulin pe n RxNorm: 6596494 35 Unit(s) SQ QAM No Start Date Active omeprazole 20 mg capsule,delayed release RxNorm: 924324 1 Capsu le(s) PO QD No Start Date Active isosorbide mononitrate ER 60 mg tablet,extended release 24 h r RxNorm: 939507 1 Tablet(s) PO QD No Start Date Active Eliquis 5 mg tablet RxNorm: 8883165 1 Tablet(s) PO BID No Start Date Active metformin 500 mg tablet RxNorm: 543452 1 Tablet(s) PO BID No Start Da te Active levothyroxine 50 mcg tablet RxNorm: 811466 1 Tablet(s) PO QD No Start Date Active Norvasc 10 mg tablet RxNorm: 007601 1 Tablet(s) PO QHS No Start Date Active Toujeo SoloStar 300 unit/mL (1.5 mL) subcutaneous insulin pe n RxNorm: 0190032 30 Unit(s) SQ QAM No Start Date Active glimepiride 4 mg tablet RxNorm: 471087 1 Tablet(s) PO QHS No Start Date 07/26/2015 Inactive allopurinol 100 mg tablet RxNorm: 047686 1 Tablet(s) PO BID No Star t Date 08/10/2014 Inactive Lantus Solostar 100 unit/mL (3 mL) subcutaneous insulin pen RxNorm: 092516 30 Unit(s) SQ QD No Start Date 08/03/2014 Inactive Levemir FlexTouch 100 unit/mL (3 mL) subcutaneous insulin pe n RxNorm: 843031 25 Unit(s) SQ QAM No Start Date 07/23/2015 Inactive Lantus 100 unit/mL Sub-Q RxNorm: 557767 30 Unit(s) SQ QHS No Start Date 05/25/2013 Inactive Lantus Solostar 100 unit/mL (3 mL) Sub-Q Insulin Pen RxNorm: 680316 20 Unit(s) SQ QPM No Start Date 03/10/2013 Inactive OneTouch Ultra Blue Test Strip RxNorm: Use 1 rigoberto t strip three times daily to check blood sugar (Dx:E11.65) No Start Date 12/06/2018 Inactive Levemir FlexTouch 100 unit/mL (3 mL) subcutaneous insulin pe n RxNorm: 390894 30- 35 Unit(s) SQ QAM No Start Date 07/23/2015 Inactive Levemir Flexpen 100 unit/mL (3 mL) solution subcutaneo us insulin pen RxNorm: 668063 20-25 Unit(s) SQ QD No Start Date 07/28/2013 Inactive lisinopril 20 mg tablet RxNorm: 452902 1 Tablet(s) PO QD No Start D ate 10/11/2019 Inactive indomethacin ER 75 mg capsule,extended release RxNorm: 13036 2 1 Capsule(s) PO QAM No Start Date 04/27/2013 Inactive indomethacin ER 75 mg capsule,extended release RxNorm: 05272 2 1 Capsule(s) PO QD No Start Date 01/16/2015 Inactive Chlortab-4 oral RxNorm: 563122 oral No Start Date 10/11/2019 Inac tive Vitamin D3 5,000 unit tablet RxNorm: 118740 1 Tablet(s) PO QD No St art Date 08/03/2014 Inactive Levemir Flexpen 100 unit/mL (3 mL) solution subcutaneo us insulin Pen RxNorm: 177258 20 Unit(s) SQ QHS No Start Date 03/10/2013 Inactive Vytorin 10 mg-40 mg tablet RxNorm: 3927791 1/2 Tablet(s) PO QD No S tart Date 04/20/2018 Inactive oxymetazoline-menthol 0.05 % nasal spray RxNorm: 9665792 [place] COTY No Start Date 10/11/2019 Inactive Patient states he ta kes every 10 hours Toujeo SoloStar 300 unit/mL (1.5 mL) subcutaneous insulin pe n RxNorm: 0110518 35 Unit(s) SQ QAM No Start Date 07/22/2016 Inactive Lantus Solostar 100 unit/mL (3 mL) subcutaneous insulin pen RxNorm: 738436 20 Unit(s) SQ QD No Start Date 08/03/2014 Inactive aspirin 81 mg tablet RxNorm: 375156 1 Tablet(s) PO QD No Start Date 0 08/03/2014 Inactive metformin 500 mg tablet RxNorm: 787947 1 Tablet(s) PO BID No Start Date 07/28/2013 Inactive glimepiride 4 mg tablet RxNorm: 796646 1 Tablet(s) PO BID No Start Date 01/16/2015 Inactive glimepiride 4 mg tablet RxNorm: 000272 1 Tablet(s) PO QD No Start D ate 08/03/2014 Inactive levothyroxine 25 mcg tablet RxNorm: 667852 1 Tablet(s) PO QD No Sta rt Date 08/10/2014 Inactive doxycycline oral RxNorm: 02668 oral No Start Date 05/12/2019 Inac tive aspirin 81 mg tablet RxNorm: 549896 1 Tablet(s) PO QD No Start Date 0 07/21/2018 Inactive isosorbide mononitrate ER 60 mg tablet,extended release 24 h r RxNorm: 088282 1 Tablet(s) PO BID No Start Date 01/16/2015 Inactive metformin 500 mg tablet RxNorm: 705469 1 Tablet(s) PO BID No Start Date 04/27/2013 Inactive Plavix 75 mg tablet RxNorm: 409584 1 Tablet(s) PO QD No Start Date Inactive glimepiride 4 mg tablet RxNorm: 661085 1 Tablet(s) PO QPM No Start Date 02/21/2019 Inactive Vytorin 10-40 10 mg-40 mg tablet RxNorm: 9354888 1 Tablet(s) PO QHS No Start Date 08/03/2014 Inactive indomethacin 50 mg capsule RxNorm: 890556 1 Capsule(s) PO QHS No St art Date 01/16/2015 Inactive glimepiride 4 mg tablet RxNorm: 363726 1 Tablet(s) PO BID No Start Date 07/28/2013 Inactive Levemir FlexTouch 100 unit/mL (3 mL) subcutaneous insulin pe n RxNorm: 152447 20 Unit(s) SQ QD No Start Date 04/30/2015 Inactive lisinopril 20 mg tablet RxNorm: 107497 1 Tablet(s) PO BID No Start Date 04/27/2013 Inactive Lantus Solostar SubQ RxNorm: Subcutaneous No Start Date 03/15/2013 I nactive Zantac 150 mg tablet RxNorm: 505083 1 Tablet(s) PO QHS No Start Date 10/11/2019 Inactive allopurinol 300 mg tablet RxNorm: 574627 1 Tablet(s) PO QD No Start Date 08/03/2014 Inactive Fish Oil 1,000 mg capsule RxNorm: 1 Capsule(s) PO QD No Start Date 02/21/2019 Inactive indomethacin 50 mg capsule RxNorm: 669637 1 Capsule(s) PO BID No St art Date 04/20/2018 Inactive levothyroxine 50 mcg tablet RxNorm: 450083 1 Tablet(s) PO QD No Sta rt Date 08/10/2014 Inactive glimepiride 4 mg tablet RxNorm: 505499 1 Tablet(s) PO BID No Start Date 03/15/2013 Inactive indomethacin 50 mg capsule RxNorm: 095761 1 Capsule(s) PO QHS No St art Date 04/27/2013 Inactive Medication Administered No Medication Administered data Immunizations Vaccine Codes Date Status Influenza CVX: 135 04/21/2018 Complete Influenza CVX: 135 04/22/2017 Complete Results Observation Observation Code Item Item Code Result Date S ervice Location [facility] 60405 Cholesterol 209 mg/dL 09/17/2016 Unkno wn [facility] 29005 Triglyceride 111 mg/dL 09/17/2016 Unkn own [facility] 54928 HDL CHOLESTEROL 50 mg/dL 09/17/2016 U nknown [facility] 84111 Chol/HDL Ratio 4.18 ratio 09/17/2016 U nknown [facility] 56563 NON-HDL Chol 159 mg/dL 09/17/2016 Unkn own [facility] 37454 LDL Cholesterol 137 mg/dL 09/17/2016 U nknown MEAN GLUC 9392037 Calc Mean Gluc 151 mg/dL 09/17/2016 Unkn own COMPREHENSIVE METABOLIC 28421 AST 23 U/L 2016 Unknown COMPREHENSIVE METABOLIC 14317 ALT 19 U/L 2016 Unknown COMPREHENSIVE MET[facility]OLIC 67901 BUN 15 mg/dL 2016 Unknown COMPREHENSIVE METABOLIC 97596 ALBUMIN 4.3 g/dL 2016 Unknown COMPREHENSIVE METABOLIC 12766 CHLORIDE 103 mmol/L 09/17 Unknown COMPREHENSIVE METABOLIC 75648 Bili Total 0.6 mg/dL 09/17 Unknown COMPREHENSIVE METABOLIC 40546 ALK PHOS 60 U/L 2016 Unknown COMPREHENSIVE METABOLIC 60268 SODIUM 140 mmol/L 09/17 Unknown COMPREHENSIVE METABOLIC 28671 CREATININE 1.03 mg/dL 09/04 Unknown COMPREHENSIVE METABOLIC 31397 CALCIUM 9.5 mg/dL 2016 Unknown COMPREHENSIVE METABOLIC 71750 POTASSIUM 3.9 mmol/L 09/17 Unknown COMPREHENSIVE METABOLIC 55037 Total Protein 6.9 g/dL Unknown COMPREHENSIVE METABOLIC 27884 Glucose 94 mg/dL 2016 Unknown COMPREHENSIVE METABOLIC 37613 Bicarbonate 28 mmol/L 09/04 Unknown COMPREHENSIVE METABOLIC 23295 AGAP 9 mmol/L 2016 Unknown GFR CALC 0222452 GFR Non Afr Amr >60 mL/min 09/17/2016 Un known GFR CALC 1524683 GFR Afr Amr >60 mL/min 09/17/2016 Unknow n THYROID STIMULATING HORMONE 14836 TSH 4.260 uIU/mL 09/17/2016 Unknown GLYCOSYLATED HEMOGLOBIN TEST 33494 Hgb A1c 40417-4 6.9 % 0 09/17/2016 Unknown FREE T4 27011 T4 Free 1.02 ng/dL 09/17/2016 Unknown COMPLETE BLOOD COUNT [id number] WBC 8.6 10e9/L 07/26/19 16 Unknown COMPLETE BLOOD COUNT [id number] RBC 4.86 10e12/L 2015 Unknown COMPLETE BLOOD COUNT 6790568 HGB 14.6 g/dL 6 Unknown COMPLETE BLOOD COUNT 1899491 HCT DET 43.1 % 6 Unknown COMPLETE BLOOD COUNT 0944906 MCV 88.7 fL 6 Unknown COMPLETE BLOOD COUNT 4854459 MCH 30.0 pg 6 Unknown COMPLETE BLOOD COUNT [id number] MCHC 33.9 g/dL 6 Unknown COMPLETE BLOOD COUNT [id number] PLT 267 10e9/L 07/26/19 16 Unknown COMPLETE BLOOD COUNT [id number] MPV 11.5 fL 6 Unknown COMPLETE BLOOD COUNT 2851580 SAM % 64.8 % 6 Unknown COMPLETE BLOOD COUNT 4607618 LY % 16.8 % 6 Unknown COMPLETE BLOOD COUNT 2301040 MON % 12.5 % 6 Unknown COMPLETE BLOOD COUNT 7451592 EOS % 5.6 % 6 Unknown COMPLETE BLOOD COUNT [id number] BASO % 0.3 % 6 Unknown COMPLETE BLOOD COUNT 1506548 RDW 13.4 % 6 Unknown COMPLETE BLOOD COUNT [id number] ABS SAM 5.57 10e9/L 016 Unknown COMPLETE BLOOD COUNT [id number] ABS LYMPH 1.44 10e9/L 016 Unknown COMPLETE BLOOD COUNT [id number] ABS MONO 1.08 10e9/L 016 Unknown COMPLETE BLOOD COUNT [id number] ABS EOS 0.48 10e9/L 016 Unknown COMPLETE BLOOD COUNT [id number] ABS BASO 0.03 10e9/L 016 Unknown COMPLETE BLOOD COUNT 6835906 RDW-SD 42.9 fL 6 Unknown PSA EQUIMOLAR MATT 19546 PSA EQ 0.78 NG/ML 6 Unknown THYROID STIMULATING HORMONE 44353 TSH 5.292 uIU/ML 07/26/2015 Unknown GLYCOSYLATED HEMOGLOBIN TEST 31354 A1C HPLC 09756-4 7.0 % 0 07/26/2015 Unknown GFR CALC 1263661 GFR AA >60 ML/MIN 07/26/2015 Unknown GFR CALC 0380615 GFR NON-AA >60 ML/MIN 07/26/2015 Unknown [facility] 84965 HDL TEST 64 MG/DL 07/26/2015 Unknown [facility] 63088 TRIG 58 MG/DL 07/26/2015 Unknown [facility] 49130 TEST LDL 49 MG/DL 07/26/2015 Unknown [facility] 10972 CHOL 125 MG/DL 07/26/2015 Unknown [facility] 51501 RCHOL/HDL 1.95 RATIO 07/26/2015 Unknow n [facility] 24866 NON-HDL CH 61 MG/DL 07/26/2015 Unknow n COMPREHENSIVE METABOLIC 83459 AST 25 U/L 2015 Unknown COMPREHENSIVE METABOLIC 15833 ALT 23 IU/L 2015 Unknown COMPREHENSIVE METABOLIC 32608 BUN 18 MG/DL 2015 Unknown COMPREHENSIVE METABOLIC 83103 ALBUMIN 4.6 GM/DL 2015 Unknown COMPREHENSIVE METABOLIC 09526 CHLORIDE 100 MMOL/L 07/26 Unknown COMPREHENSIVE METABOLIC 37541 BILI TOT 0.5 MG/DL 2015 Unknown COMPREHENSIVE METABOLIC 24977 ALK PHOS 49 U/L 2015 Unknown COMPREHENSIVE METABOLIC 59402 SODIUM 137 MMOL/L 07/26 Unknown COMPREHENSIVE METABOLIC 95944 CREATININE 1.06 MG/DL 07/08 Unknown COMPREHENSIVE METABOLIC 75905 CALCIUM 9.5 MG/DL 2015 Unknown COMPREHENSIVE METABOLIC 41994 POTASSIUM 4.5 MMOL/L 07/26 Unknown COMPREHENSIVE METABOLIC 50413 PROT TOT 6.5 GM/DL 2015 Unknown COMPREHENSIVE METABOLIC 32183 Glucose 109 MG/DL 2015 Unknown COMPREHENSIVE METABOLIC 13725 BICARB 29 MMOL/L 2015 Unknown COMPREHENSIVE METABOLIC 34484 ANION GAP 8 MEQ/L 2015 Unknown FREE T4 34025 FREE T4 1.11 NG/DL 07/26/2015 Unknown CULTURE & SENSITIVITY 70813 PROTEIN UR NEG 015 Unknown CULTURE & SENSITIVITY 73404 HEMGLBN UR TR 015 Unknown CULTURE & SENSITIVITY 68678 GLUCOSE UR NEG 015 Unknown CULTURE & SENSITIVITY 26888 KETONES UR NEG 015 Unknown CULTURE & SENSITIVITY 86726 PH U 6.5 01/25/20 15 Unknown CULTURE & SENSITIVITY 51163 SP GR U 1.013 01/25/20 15 Unknown CULTURE & SENSITIVITY 30530 BILRUBN UR NEG 015 Unknown CULTURE & SENSITIVITY 46990 LEUKO UR NEG 01/25/20 15 Unknown CULTURE & SENSITIVITY 78034 NITRITE UR NEG 015 Unknown MICR CUL? [id number] SP TO JOHANA? NO 01/24/2015 Unknown MICR CUL? 7283056 APPEAR UR NORMAL 01/24/2015 Unknown MICR CUL? 1253568 RBC/uL 2.2 01/24/2015 Unknown MICR CUL? 5398799 WBC/uL 2.8 01/24/2015 Unknown MICR CUL? 8209431 SQ EPI/uL 1.0 01/24/2015 Unknown MICR CUL? 0094788 HYALCST/uL 0.25 01/24/2015 Unknown MICR CUL? 6647176 WBC /HPF 1 01/24/2015 Unknown MICR CUL? 3165115 RBC /HPF 0 01/24/2015 Unknown GLYCOSYLATED HEMOGLOBIN TEST 38669 A1C HPLC 87639-4 6.6 % 0 01/17/2015 Unknown COMPLETE BLOOD COUNT [id number] WBC 10.1 10e9/L 015 Unknown COMPLETE BLOOD COUNT [id number] RBC 4.60 10e12/L 2014 Unknown COMPLETE BLOOD COUNT 0040337 HGB 14.0 g/dL 5 Unknown COMPLETE BLOOD COUNT 7726053 HCT DET 39.9 % 5 Unknown COMPLETE BLOOD COUNT 1731208 MCV 86.7 fL 5 Unknown COMPLETE BLOOD COUNT 7606482 MCH 30.4 pg 5 Unknown COMPLETE BLOOD COUNT 9836801 MCHC 35.1 g/dL 5 Unknown COMPLETE BLOOD COUNT 2708736 PLT 252 10e9/L 01/18/20 15 Unknown COMPLETE BLOOD COUNT 2082352 MPV 11.4 fL 5 Unknown COMPLETE BLOOD COUNT 0874536 SAM % 72.9 % 5 Unknown COMPLETE BLOOD COUNT 8775857 LY % 13.6 % 5 Unknown COMPLETE BLOOD COUNT 7711752 MON % 10.2 % 5 Unknown COMPLETE BLOOD COUNT 3651269 EOS % 3.1 % 5 Unknown COMPLETE BLOOD COUNT 7842557 BASO % 0.2 % 5 Unknown COMPLETE BLOOD COUNT 7624579 RDW 13.6 % 5 Unknown COMPLETE BLOOD COUNT 5129307 ABS SAM 7.36 10e9/L 015 Unknown COMPLETE BLOOD COUNT 3359543 ABS LYMPH 1.37 10e9/L 015 Unknown COMPLETE BLOOD COUNT 9961869 ABS MONO 1.03 10e9/L 015 Unknown COMPLETE BLOOD COUNT 5602623 ABS EOS 0.31 10e9/L 015 Unknown COMPLETE BLOOD COUNT 5809732 ABS BASO 0.02 10e9/L 015 Unknown COMPLETE BLOOD COUNT 5205569 RDW-SD 42.4 fL 5 Unknown GFR CALC 6814361 GFR AA 51.0L ML/MIN 01/17/2015 Unknow n GFR CALC 0559875 GFR NON-AA 42.0L ML/MIN 01/17/2015 Unkno wn FREE T4 33810 FREE T4 1.30 NG/DL 01/17/2015 Unknown THYROID STIMULATING HORMONE 07786 TSH 4.029 uIU/ML 01/17/2015 Unknown COMPREHENSIVE METABOLIC 74045 AST 28 U/L 2014 Unknown COMPREHENSIVE METABOLIC 63361 ALT 25 IU/L 2014 Unknown COMPREHENSIVE METABOLIC 80594 BUN 21 MG/DL 2014 Unknown COMPREHENSIVE METABOLIC 64824 ALBUMIN 4.7 GM/DL 2014 Unknown COMPREHENSIVE METABOLIC 29482 CHLORIDE 102 MMOL/L 01/17 Unknown COMPREHENSIVE METABOLIC 49954 BILI TOT 0.6 MG/DL 2014 Unknown COMPREHENSIVE METABOLIC 31393 ALK PHOS 44 U/L 2014 Unknown COMPREHENSIVE METABOLIC 29703 SODIUM 137 MMOL/L 01/17 Unknown COMPREHENSIVE METABOLIC 32114 CREATININE 1.62 MG/DL 01/04 Unknown COMPREHENSIVE METABOLIC 81637 CALCIUM 9.7 MG/DL 2014 Unknown COMPREHENSIVE METABOLIC 99810 POTASSIUM 4.5 MMOL/L 01/17 Unknown COMPREHENSIVE METABOLIC 06736 PROT TOT 6.5 GM/DL 2014 Unknown COMPREHENSIVE METABOLIC 04386 Glucose 136 MG/DL 2014 Unknown COMPREHENSIVE METABOLIC 42622 BICARB 24 MMOL/L 2014 Unknown COMPREHENSIVE METABOLIC 40348 ANION GAP 11 MEQ/L 2014 Unknown VITAMIN B 12 88503 VIT B 12 482 PG/ML 01/17/2015 Unknow n URIC ACID 62045 URIC ACID 8.5 MG/DL 08/09/2014 Unknown COMPREHENSIVE METABOLIC 74779 AST 27 U/L 2014 Unknown COMPREHENSIVE METABOLIC 74949 ALT 26 IU/L 2014 Unknown COMPREHENSIVE METABOLIC 07392 BUN 17 MG/DL 2014 Unknown COMPREHENSIVE METABOLIC 41599 ALBUMIN 5.0 GM/DL 2014 Unknown COMPREHENSIVE METABOLIC 20854 CHLORIDE 101 MMOL/L 08/09 Unknown COMPREHENSIVE METABOLIC 76425 BILI TOT 0.7 MG/DL 2014 Unknown COMPREHENSIVE METABOLIC 43999 ALK PHOS 53 U/L 2014 Unknown COMPREHENSIVE METABOLIC 28948 SODIUM 136 MMOL/L 08/09 Unknown COMPREHENSIVE METABOLIC 38154 CREATININE 1.14 MG/DL 09/2014 Unknown COMPREHENSIVE METABOLIC 52077 CALCIUM 9.8 MG/DL 2014 Unknown COMPREHENSIVE METABOLIC 10979 POTASSIUM 4.1 MMOL/L 08/09 Unknown COMPREHENSIVE METABOLIC 98806 PROT TOT 7.5 GM/DL 2014 Unknown COMPREHENSIVE METABOLIC 43393 Glucose 110 MG/DL 2014 Unknown COMPREHENSIVE METABOLIC 01153 BICARB 30 MMOL/L 2014 Unknown COMPREHENSIVE METABOLIC 72133 ANION GAP 5 MEQ/L 2014 Unknown GFR CALC 0649643 GFR AA >60 ML/MIN 08/09/2014 Unknown GFR CALC 8571582 GFR NON-AA >60 ML/MIN 08/09/2014 Unknown FREE T4 10483 FREE T4 1.14 NG/DL 08/09/2014 Unknown GLYCOSYLATED HEMOGLOBIN TEST 34311 A1C HPLC 86809-7 6.8 % 0 08/09/2014 Unknown COMPLETE BLOOD COUNT [id number] WBC 5.9 10e9/L 08/09/19 15 Unknown COMPLETE BLOOD COUNT [id number] RBC 5.04 10e12/L 2014 Unknown COMPLETE BLOOD COUNT 3102445 HGB 15.2 g/dL 5 Unknown COMPLETE BLOOD COUNT 1486056 HCT DET 44.3 % 5 Unknown COMPLETE BLOOD COUNT 5818172 MCV 87.9 fL 5 Unknown COMPLETE BLOOD COUNT 7878356 MCH 30.2 pg 5 Unknown COMPLETE BLOOD COUNT 8081281 MCHC 34.3 g/dL 5 Unknown COMPLETE BLOOD COUNT 6727870 PLT 262 10e9/L 08/09/19 15 Unknown COMPLETE BLOOD COUNT [id number] MPV 10.9 fL 5 Unknown COMPLETE BLOOD COUNT [id number] SAM % 58.7 % 5 Unknown COMPLETE BLOOD COUNT [id number] LY % 21.5 % 5 Unknown COMPLETE BLOOD COUNT [id number] MON % 14.0 % 5 Unknown COMPLETE BLOOD COUNT [id number] EOS % 5.3 % 5 Unknown COMPLETE BLOOD COUNT [id number] BASO % 0.5 % 5 Unknown COMPLETE BLOOD COUNT [id number] RDW 13.1 % 5 Unknown COMPLETE BLOOD COUNT [id number] ABS SAM 3.46 10e9/L 015 Unknown COMPLETE BLOOD COUNT [id number] ABS LYMPH 1.27 10e9/L 015 Unknown COMPLETE BLOOD COUNT [id number] ABS MONO 0.83 10e9/L 015 Unknown COMPLETE BLOOD COUNT [id number] ABS EOS 0.31 10e9/L 015 Unknown COMPLETE BLOOD COUNT [id number] ABS BASO 0.03 10e9/L 015 Unknown COMPLETE BLOOD COUNT [id number] RDW-SD 41.2 fL 5 Unknown THYROID STIMULATING HORMONE [id number] TSH 5.395 uIU/ML 08/09/2014 Unknown LIPID GROUP [id number] HDL TEST 52 MG/DL 08/09/2014 Unknown LIPID GROUP [id number] TRIG 113 MG/DL 08/09/2014 Unknown LIPID GROUP [id number] TEST LDL 158 MG/DL 08/09/2014 Unknown LIPID GROUP [id number] CHOL 233 MG/DL 08/09/2014 Unknown LIPID GROUP [id number] RCHOL/HDL 4.48 RATIO 08/09/2014 Unknow n LIPID GROUP [id number] NON-HDL CH 181 MG/DL 08/09/2014 Unknow n COMPLETE BLOOD COUNT [id number] WBC 6.8 10e9/L 09/09/19 14 Unknown COMPLETE BLOOD COUNT [id number] RBC 5.18 10e12/L 2013 Unknown COMPLETE BLOOD COUNT [id number] HGB 15.2 g/dL 4 Unknown COMPLETE BLOOD COUNT [id number] HCT DET 44.7 % 4 Unknown COMPLETE BLOOD COUNT [id number] MCV 86.3 fL 4 Unknown COMPLETE BLOOD COUNT [id number] MCH 29.3 pg 4 Unknown COMPLETE BLOOD COUNT [id number] MCHC 34.0 g/dL 4 Unknown COMPLETE BLOOD COUNT [id number] PLT 236 10e9/L 09/09/19 14 Unknown COMPLETE BLOOD COUNT [id number] MPV 11.0 fL 4 Unknown COMPLETE BLOOD COUNT [id number] SAM % 58.2 % 4 Unknown COMPLETE BLOOD COUNT [id number] LY % 21.9 % 4 Unknown COMPLETE BLOOD COUNT [id number] MON % 12.5 % 4 Unknown COMPLETE BLOOD COUNT [id number] EOS % 7.3 % 4 Unknown COMPLETE BLOOD COUNT [id number] BASO % 0.1 % 4 Unknown COMPLETE BLOOD COUNT [id number] RDW 13.6 % 4 Unknown COMPLETE BLOOD COUNT [id number] ABS SAM 3.96 10e9/L 014 Unknown COMPLETE BLOOD COUNT [id number] ABS LYMPH 1.49 10e9/L 014 Unknown COMPLETE BLOOD COUNT [id number] ABS MONO 0.85 10e9/L 014 Unknown COMPLETE BLOOD COUNT [id number] ABS EOS 0.50 10e9/L 014 Unknown COMPLETE BLOOD COUNT [id number] ABS BASO 0.01 10e9/L 014 Unknown COMPLETE BLOOD COUNT [id number] RDW-SD 42.3 fL 4 Unknown COMPREHENSIVE METABOLIC 42023 AST 27 U/L 2013 Unknown COMPREHENSIVE METABOLIC 12485 ALT 30 IU/L 2013 Unknown COMPREHENSIVE METABOLIC 23113 BUN 16 MG/DL 2013 Unknown COMPREHENSIVE METABOLIC 29602 ALBUMIN 4.9 GM/DL 2013 Unknown COMPREHENSIVE METABOLIC 15320 CHLORIDE 99 MMOL/L 2013 Unknown COMPREHENSIVE METABOLIC 63350 BILI TOT 0.7 MG/DL 2013 Unknown COMPREHENSIVE METABOLIC 10408 ALK PHOS 53 U/L 2013 Unknown COMPREHENSIVE METABOLIC 83381 SODIUM 137 MMOL/L 09/08 Unknown COMPREHENSIVE METABOLIC 74495 CREATININE 1.01 MG/DL 11/2013 Unknown COMPREHENSIVE METABOLIC 68711 CALCIUM 10.0 MG/DL 09/08 Unknown COMPREHENSIVE METABOLIC 59086 POTASSIUM 4.4 MMOL/L 09/08 Unknown COMPREHENSIVE METABOLIC 20614 PROT TOT 7.1 GM/DL 2013 Unknown COMPREHENSIVE METABOLIC 26293 Glucose 148 MG/DL 2013 Unknown COMPREHENSIVE METABOLIC 75913 BICARB 30 MMOL/L 2013 Unknown COMPREHENSIVE METABOLIC 37005 ANION GAP 8 MEQ/L 2013 Unknown GFR CALC 5167413 GFR AA >60 ML/MIN 09/08/2013 Unknown GFR CALC 0105810 GFR NON-AA >60 ML/MIN 09/08/2013 Unknown FREE T4 62632 FREE T4 1.08 NG/DL 09/08/2013 Unknown GLYCOSYLATED HEMOGLOBIN TEST 81851 A1C HPLC 57324-0 7.3 % 0 09/08/2013 Unknown THYROID STIMULATING HORMONE 87519 TSH 5.454 uIU/ML 09/08/2013 Unknown LIPID GROUP 28723 HDL TEST 59 MG/DL 09/08/2013 Unknown LIPID GROUP 13755 TRIG 92 MG/DL 09/08/2013 Unknown LIPID GROUP 47202 TEST LDL 83 MG/DL 09/08/2013 Unknown LIPID GROUP 70307 CHOL 160 MG/DL 09/08/2013 Unknown LIPID GROUP 90918 RCHOL/HDL 2.71 RATIO 09/08/2013 Unknow n VITAMIN B 12 FOLIC ACID 18142|53321 VIT B 12 467 PG/ML 12/2012 Unknown VITAMIN B 12 FOLIC ACID 22721|68896 FOLIC ACID 12.2 NG/ML Unknown VITAMIN B 12 FOLIC ACID 05701|61956 VIT B 12 467 PG/ML 12/2012 Unknown THYROID STIMULATING HORMONE 97661 TSH 4.557 uIU/ML 03/12/2013 Unknown HEMOGLOBIN A1C (GLYCOSYLATED) 7768570 A1C HPLC 21484-3 7.6 % 03/12/2013 Unknown VITAMIN D TOTAL (25 HYDROXY) 11022 VIT D TOTL 17 NG/ML 03/12/2013 Unknown FREE T4 14912 FREE T4 1.07 NG/DL 03/12/2013 Unknown URIC ACID 73130 URIC ACID 5.2 MG/DL 03/12/2013 Unknown Procedures Procedure Codes Date THER/PROPH/DIAG INJ SC/IM CPT-4: 97518 05/13/2019 TRIAMCINOLONE ACET INJ NOS CPT-4: J3301 05/13/2019 DEXAMETHASONE SODIUM PHOS CPT-4: J1100 05/13/2019 THER/PROPH/DIAG INJ SC/IM CPT-4: 52009 02/22/2019 TRIAMCINOLONE ACET INJ NOS CPT-4: J3301 02/22/2019 FLU VACC PRSV FREE INC ANTIG 65 AND OLDER CPT-4: 29123 04/21/2018 ADMIN INFLUENZA VIRUS VAC CPT-4: G0008 04/21/2018 PRESCRIP TRANSMIT VIA ERX SY CPT-4: G8553 04/21/2018 DESTRUCT PREMALG LESION (Cryosurgery) CPT-4: 45285 FLU VACC PRSV FREE INC ANTIG 65 AND OLDER CPT-4: 29459 04/22/2017 ADMIN INFLUENZA VIRUS VAC CPT-4: G0008 04/22/2017 PRESCRIP TRANSMIT VIA ERX SY CPT-4: G8553 10/10/2016 PRESCRIP TRANSMIT VIA ERX SY CPT-4: G8553 08/29/2015 ROUTINE VENIPUNCTURE CPT-4: 93306 07/26/2015 ASSAY OF FREE THYROXINE CPT-4: 26461 07/26/2015 ASSAY THYROID STIM HORMONE CPT-4: 83430 07/26/2015 COMPREHEN METABOLIC PANEL CPT-4: 02011 07/26/2015 COMPLETE CBC W/AUTO DIFF WBC CPT-4: 89928 07/26/2015 LIPID PANEL CPT-4: 74525 07/26/2015 ASSAY OF PSA TOTAL CPT-4: 99204 07/26/2015 A1C HPLC CPT-4: 35811 07/26/2015 ROUTINE VENIPUNCTURE CPT-4: 36525 01/17/2015 ASSAY OF FREE THYROXINE CPT-4: 61959 01/17/2015 ASSAY THYROID STIM HORMONE CPT-4: 70468 01/17/2015 COMPREHEN METABOLIC PANEL CPT-4: 57211 01/17/2015 COMPLETE CBC W/AUTO DIFF WBC CPT-4: 24431 01/17/2015 A1C HPLC CPT-4: 85031 01/17/2015 VITAMIN B-12 CPT-4: 81410 01/17/2015 PPPS, subseq visit CPT-4: G0439 08/04/2014 PRESCRIP TRANSMIT VIA ERX SY CPT-4: G8553 02/18/2014 FLUZONE, 5ML (Medicare) CPT-4: Q2038 07/22/2013 ADMIN INFLUENZA VIRUS VAC CPT-4: G0008 07/22/2013 PRESCRIP TRANSMIT VIA ERX SY CPT-4: G8553 04/28/2013 ROUTINE VENIPUNCTURE CPT-4: 20026 03/12/2013 VITAMIN D TOTAL (25 HYDROXY) CPT-4: 07264 03/12/2013 VITAMIN B 12 FOLIC ACID CPT-4: 03472|74221 03/12/2013 A1C GLYCOSYLATED HEMOGLOBIN TEST CPT-4: 52441 013 ASSAY OF BLOOD/URIC ACID CPT-4: 79349 03/12/2013 ASSAY OF FREE THYROXINE CPT-4: 56442 03/12/2013 ASSAY THYROID STIM HORMONE CPT-4: 01880 03/12/2013 CUR TOBACCO NON-USER CPT-4: G8457 03/11/2013 [...] 1: 156/70 Code: 8480-6 BMI: 35.0 Code: 39578-5 Heart Rate 1: 68 bpm Height: 5'10" Respiratory Rate: 20 bpm SpO2: 95% Tempera ture: 36.5 (C) / 97.7 (F) Weight: 244 lbs 04/21/2018 Blood Pressure 1: 124/80 Code: 8480-6 BMI: 34.4 Code: 65368-5 Heart Rate 1: 80 bpm Height: 5'10" Respiratory Rate: 20 bpm SpO2: 96% Tempera ture: 37.0 (C) / 98.6 (F) Weight: 240 lbs 01/06/2018 Blood Pressure 1: 138/82 Code: 8480-6 BMI: 33.9 Code: 13016-1 Heart Rate 1: 96 bpm Height: 5'10" Respiratory Rate: 24 bpm SpO2: 98% Tempera ture: 35.9 (C) / 96.6 (F) Weight: 236 lbs 10/22/2017 Blood Pressure 1: 144/70 Code: 8480-6 BMI: 34.7 Code: 77916-1 Heart Rate 1: 72 bpm Height: 5'10" Respiratory Rate: 20 bpm SpO2: 96% Tempera ture: 36.9 (C) / 98.4 (F) Weight: 242 lbs 04/22/2017 Blood Pressure 1: 146/82 Code: 8480-6 BMI: 32.9 Code: 04940-6 Heart Rate 1: 104 bpm Height: 5'10" Respiratory Rate: 20 bpm SpO2: 95% Tempera ture: 36.9 (C) / 98.5 (F) Weight: 229 lbs 10/10/2016 Blood Pressure 1: 124/64 Code: 8480-6 BMI: 32.9 Code: 83247-0 Heart Rate 1: 64 bpm Height: 5'10" [...] 1: 146/90 Code: 8480-6 BMI: 34.1 Code: 39868-2 Heart Rate 1: 80 bpm Height: 5'10" Respiratory Rate: 20 bpm Temperature: 36 .8 (C) / 98.2 (F) Weight: 238 lbs 01/17/2015 Blood Pressure 1: 116/60 Code: 8480-6 BMI: 32.7 Code: 31075-2 Heart Rate 1: 84 bpm Height: 5'10" Respiratory Rate: 20 bpm Temperature: 36 .7 (C) / 98.0 (F) Weight: 228 lbs 09/29/2014 Blood Pressure 1: 136/78 Code: 8480-6 BMI: 33.9 Code: 73527-9 Heart Rate 1: 80 bpm Height: 5'10" Respiratory Rate: 20 bpm Temperature: 36 .6 (C) / 97.9 (F) Weight: 236 lbs 08/04/2014 Blood Pressure 1: 132/70 Code: 8480-6 BMI: 32.9 Code: 79746-0 Heart Rate 1: 72 bpm Height: 5'10" Respiratory Rate: 20 bpm Temperature: 36 .7 (C) / 98.0 (F) Weight: 229 lbs 02/18/2014 Blood Pressure 1: 124/82 Code: 8480-6 Heart Rate 1: 82 bpm Respiratory Rate: 18 bpm Temperature: 36.4 (C) / 97.5 (F) Weight: 232 lbs 07/29/2013 Blood Pressure 1: 146/80 Code: 8480-6 BMI: 34.1 Code: 35304-8 Heart Rate 1: 64 bpm Height: 5'10" Respiratory Rate: 20 bpm Temperature: 36 .9 (C) / 98.5 (F) Weight: 238 lbs 05/26/2013 Blood Pressure 1: 142/90 Code: 8480-6 BMI: 34.0 Code: 59259-7 Heart Rate 1: 84 bpm Height: 5'10" Respiratory Rate: 20 bpm Temperature: 36 .7 (C) / 98.0 (F) Weight: 237 lbs 04/28/2013 Blood Pressure 1: 118/78 Code: 8480-6 BMI: 32.9 Code: 18289-5 Heart Rate 1: 74 bpm Height: 5'10" Respiratory Rate: 20 bpm Temperature: 36 .1 (C) / 97.0 (F) Weight: 229 lbs 03/11/2013 Blood Pressure 1: 146/80 Code: 8480-6 BMI: 31.5 Code: 35883-8 Heart Rate 1: 80 bpm Height: 6' [...] care Encounters Encounter Performer Location Codes Date ([id number]) OFFICE/OUTPATIENT VISIT EST Diagnosis: Chronic obstructive pulmonary disease, unspecified[ICD10: J44.9] Diagnosis: DM w/o complication type II, uncontrolled[ICD10: E11.65] Diagnosis: Edema[ICD10: R60.9] Xiomara BETTENCOURT [facility] CPT-4: 37124 10/20/2019 ([id number]) OFFICE/OUTPATIENT VISIT EST Diagnosis: Other dyspnea and respiratory abnormality[ICD10: R06.09] Diagnosis: Obstructive sleep apnea[ICD10: G47.33] Diagnosis: Hypotension[ICD10: I95.9] Xiomara Bettencourt [facility] CPT -4: 59923 10/12/2019 ([id number]) OFFICE/OUTPATIENT VISIT EST Diagnosis: Upper respiratory infection[ICD10: J06.9] Pennie BETTENCOURT [employer] CPT-4: 78083 06/02/2019 ([id number]) OFFICE/OUTPATIENT VISIT EST Diagnosis: Sinusitis[ICD10: J32.9] Diagnosis: Allergic rhinitis[ICD10: J30.9] Pennie BETTENCOURT DO [facility] CPT-4: 09261 05/13/2019 ([id number]) OFFICE/OUTPATIENT VISIT EST Diagnosis: Pneumonia[ICD10: J18.9] Pennie ROSENBAUM DO [facility] CPT-4: 79871 04/26/2019 ([id number]) OFFICE/OUTPATIENT VISIT EST Diagnosis: Acute sinusitis, unspecified[ICD10: J01.90] Pennie BETTENCOURT DO [facility] CPT-4: 42506 02/22/2019 ([id number]) OFFICE/OUTPATIENT VISIT EST Diagnosis: Cervicalgia[ICD10: M54.2] Xiomara MAGALLON [facility] CPT-4: 31646 11/25/2018 ([id number]) OFFICE/OUTPATIENT VISIT EST Diagnosis: Acute sinusitis, unspecified[ICD10: J01.90] Diagnosis: Myalgia, unspecified site[ICD10: M79.10] Diagnosis: Cervicalgia[ICD10: M54.2] Xiomara MAGALLON [facility] CPT-4: 40727 11/19/2018 ([id number]) OFFICE/OUTPATIENT VISIT EST Diagnosis: Low back pain[ICD10: M54.5] Diagnosis: Essential (primary) hypertension[ICD10: I10] Diagnosis: 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, 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] Diagnosis: Paroxysmal atrial fibrillation[ICD10: I48.0] Xiomara BETTENCOURT DO [facility] CPT-4: 52437 07/22/2018 ([id number]) OFFICE/OUTPATIENT VISIT EST Diagnosis: Type 2 diabetes mellitus with diabetic neuropathy, unspecified[ICD10: E11.40] Diagnosis: Hyperlipidemia, unspecified[ICD10: E78.5] Diagnosis: Essential (primary) hypertension[ICD10: I10] Diagnosis: Chronic kidney disease, stage 1[ICD10: N18.1] Diagnosis: Benign prostatic hyperplasia with lower urinary tract symptoms[ICD10: N40.1] Diagnosis: FLU VACCINE[ICD10: Z23] Xiomara Bettencourt XIOMARA Elvia ROSENBAUM [facility] CPT-4: 00834 04/21/2018 OFFICE/OUTPATIENT VISIT EST Diagnosis: Type 2 diabetes mellitus with hyperglycemia[ICD10: E11.65] Diagnosis: Essential (primary) hypertension[ICD10: I10] Diagnosis: Mixed hyperlipidemia[ICD10: E78.2] Diagnosis: Other fatigue[ICD10: R53.83] Pennie HANLINE [facility] CPT-[facility]: 88659 01/06/2018 ([id number]) OFFICE/OUTPATIENT VISIT EST Diagnosis: Type 2 diabetes mellitus with diabetic neuropathy, unspecified[ICD10: E11.40] Diagnosis: Essential (primary) hypertension[ICD10: I10] Diagnosis: Pain in right thigh[ICD10: M79.651] Diagnosis: Pain in left leg[ICD10: M79.605] Diagnosis: Localized swelling, mass and lump, left lower limb[ICD10: R22.42] Diagnosis: OSTEOARTHRISIS MULTI SITES[ICD10: M19.90] Diagnosis: FLU VACCINE[ICD10: Z23] Xiomara Renonelson LARA DelphineEdvin [facility] CPT-4: 20394 04/22/2017 ([id number]) OFFICE/OUTPATIENT VISIT EST Diagnosis: Essential (primary) hypertension[ICD10: I10] Diagnosis: Type 2 diabetes mellitus with hyperglycemia[ICD10: E11.65] Diagnosis: Angina pectoris, unspecified[ICD10: I20.9] Xiomara LARA DelphineEdvin [facility] CPT-4: 69019 10/10/2016 ([id number]) OFFICE/OUTPATIENT VISIT EST Diagnosis: Cough[ICD10: R05] Diagnosis: Wheezing[ICD10: R06.2] Diagnosis: Chronic obstructive pulmonary disease, unspecified[ICD10: J44.9] Shannan Gan [facility] CPT-4: 28116 08/31/2015 OFFICE/OUTPATIENT VISIT EST Diagnosis: Acute bronchitis, unspecified[ICD10: J20.9] Diagnosis: Wheezing[ICD10: R06.2] Kelsie [facility] CPT-4: 37751 08/29/2015 ([id number]) OFFICE/OUTPATIENT VISIT EST Diagnosis: Type 2 diabetes mellitus with diabetic neuropathy, unspecified[ICD10: E11.40] Diagnosis: Hyperlipidemia, unspecified[ICD10: E78.5] Diagnosis: Essential (primary) hypertension[ICD10: I10] Diagnosis: Encounter for general adult medical examination without abnormal findings[ICD10: Z00.00] Xiomara BETTENCOURT [facility] CPT-4: 79196 07/26/2015 OFFICE/OUTPATIENT VISIT EST Diagnosis: Type 2 diabetes mellitus with hyperglycemia[ICD10: E11.65] Diagnosis: Unspecified osteoarthritis, unspecified site[ICD10: M19.90] Diagnosis: Other instability, right knee[ICD10: M25.361] Kelsie BETTENCOURT DO [facility] CPT-4: 38747 07/24/2015 ([id number]) OFFICE/OUTPATIENT VISIT EST Diagnosis: Pain in leg, unspecified[ICD10: M79.606] Diagnosis: Type 2 diabetes mellitus with diabetic neuropathy, unspecified[ICD10: E11.40] Xiomara BETTENCOURT [facility] CPT-4: 43676 05/01/2015 ([id number]) OFFICE/OUTPATIENT VISIT EST Diagnosis: MALAISE AND FATIGUE[ICD9: 780.79] Diagnosis: 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, 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] Diagnosis: CAD[ICD9: 414.00] Diagnosis: ANEMIA NOS[ICD9: 285.9] Xiomara ROSENBAUM [facility] CPT-4: 50500 01/17/2015 ([id number]) OFFICE/OUTPATIENT VISIT EST Diagnosis: Skin lesion[ICD9: 709.9] Xiomara GENAO [facility] CPT-4: 97348 09/29/2014 OFFICE/OUTPATIENT VISIT EST Diagnosis: GASTROENTERITIS[ICD9: 558.9] Diagnosis: GERD[ICD9: 530.81] Kelsie BETTENCOURT DO [facility] CPT-4: 58555 02/18/2014 ([id number]) OFFICE/OUTPATIENT VISIT EST Diagnosis: 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I, UNCONTROLLED[ICD9: 250.02] Xiomara BETTENCOURT [facility] CPT-4: 06515 07/29/2013 ([id number]) OFFICE/OUTPATIENT VISIT EST Diagnosis: FLU VACCINE[ICD9: V04.81] Xiomara MAGALLON [facility] CPT-4: 04398 07/22/2013 ([id number]) OFFICE/OUTPATIENT VISIT EST Diagnosis: 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I, UNCONTROLLED[ICD9: 250.02] Diagnosis: HYPERTENSION[ICD9: 401.9] Xiomara MAGALLON [facility] CPT-4: 95808 05/26/2013 ([id number]) OFFICE/OUTPATIENT VISIT EST Diagnosis: MONONEURITIS[ICD9: 355.9] Diagnosis: RESTLESS LEGS SYNDROME[ICD9: 333.94] Diagnosis: HYPERTENSION[ICD9: 401.9] Diagnosis: CAD[ICD9: 414.00] Diagnosis: Weakness[ICD9: 780.79] Xiomara Dolan [facility] CPT-4: 55504 04/28/2013 ([id number]) OFFICE/OUTPATIENT VISIT EST Diagnosis: 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[ICD9: 250.01] Diagnosis: MONONEURITIS[ICD9: 355.9] Diagnosis: HYPERLIPIDEMIA NEC/NOS[ICD9: 272.4] Diagnosis: CAD[ICD9: 414.00] Xiomara BETTENCOURT [facility] CPT-4: 62044 03/12/2013 OFFICE/OUTPATIENT VISIT NEW Diagnosis: CAD[ICD9: 414.00] Diagnosis: HYPERLIPIDEMIA NEC/NOS[ICD9: 272.4] Diagnosis: HYPERTENSION[ICD9: 401.9] Diagnosis: Neuropathy[ICD9: 355.9] Diagnosis: RESTLESS LEGS SYNDROME[ICD9: 333.94] Xiomara BETTENCOURT [facility] CPT-4: 49249 03/11/2013 Plan of Care Planned Activity Notes [...] R60.9 10/20/2019 Patient Education: furosemide- [employer] Coupon [id number] https://www.[email or web address]/The Kernel/resources/getResource/61/[email or web address] Completed 10/20/2019 Visit Diagnosis Plan: Obstructive sleep [...] : I95.9 10/12/2019 Appointment: Xiomara Bettencourt WPtel: [address] [place], [place] [phone] TELEMEDICINE 10/12/2019 Appointment: Xiomara Bettencourt WPtel: [address] [place], [place] [phone] [place] RESCHEDULED 09/23/2019 Care Plan: COMPREHEN METABOLIC PANEL SERGEI NC : 20210-2 Pending 09/20/2019 Care Plan: LIPID PANEL LOINC : 84486-8 Pending 09/20/2019 Care Plan: A1C HPLC LOINC : 74625-3 Pending 09/20/2019 Care Plan: COMPLETE CBC W/AUTO DIFF WBC LOINC : 84129-1 Pending 09/20/2019 Visit Diagnosis Plan: Upper respiratory infection Disc ussion: discussed that most likely viral. push fluids and rest through the week. patient has left over levaquin at home (5 days worth). instructed patient to start taking if he gets worse later this week and to call us next week if no improvement. ICD-9 : 465.9 ICD-10 : J06.9 06/02/2019 Appointment: Pennie Pizarro [address] [place], [place] [phone] ACUTE ILLNESS 06/02/2019 Visit Diagnosis Plan: Allergic [...] ICD-10 : J30.9 05/13/2019 Appointment: Pennie Pizarro [address] [place], [place] [phone] ACUTE ILLNESS 05/13/2019 Appointment: Xiomara Bettencourt WPtel: [phone] [facility] US CANCELED 04/27/2019 Visit Diagnosis Plan: Pneumonia Discussion: will obtai n records from urgent care. instructed to finish out doxy. no rhonchi or crackles auscultated. symbicort sample given to patient with instructions to use bid. call office later this week with new or worsening symptoms. ICD-9 : 486 ICD-10 : J18.9 04/26/2019 Appointment: Pennie Pizarro [address] [place], [place] [phone] [place] FOLLOW UP 04/26/2019 Visit Diagnosis Plan: [...] ICD-10 : J01.90 02/22/2019 Appointment: Pennie Pizarro [address] [place] [address] ACUTE ILLNESS 02/22/2019 Patient Education: prednisone- [employer] Coupon [id number] https://www.FreeAgent/samplemd/resources/getResource/[email or web address] Completed 02/22/2019 Visit Diagnosis Plan: Cervicalgia Discussion: Check Ce rvical Spine X-ray Will likely need PT ICD-9 : 723.1 ICD-10 : M54.2 11/25/2018 Appointment: Xiomara Bettencourt WPtel: [phone] ACUTE ILLNESS 11/25/2018 Visit Plan: Saline [...] Tyle... 11/19/2018 Appointment: Xiomara Bettencourt WPtel: [phone] ACUTE ILLNESS 11/19/2018 Patient Education: baclofen- [employer] Coupon [id number] https://www.FreeAgent/samplemd/resources/getResource/61/[email or web address]-[email or web address] Completed 11/19/2018 Visit Diagnosis Plan: Paroxysmal atrial [...] I10 07/22/2018 Appointment: Xi[facility] Bettencourt [phone] [facility] [facility] 07/22/2018 Visit Diagnosis Plan: [...] Trial of flomax Call in 1 mo [facility] on how doing Follow Up: 4 months ICD-9 : 600.21 ICD-10 : N40.1 04/21/2018 Appointment: Xiomara Bettencourt [facility]el[facility] [phone] [facility] FOLLOW [facility] 04/21/2018 Patient Education: Patient Medication [...] ICD-10 : E78.2 01/06/2018 Appointment: Pennie Pizarro [address] [place] [address] MEDICATION REVIEW 01/06/2018 Patient Education: Patient Medication Summary Completed 01/06/2018 Appointment: Xiomara Bettencourt WPtel: [address] [place], [place] [phone] [place] NO SHOW 01/05/2018 Appointment: Xiomara Bettencourt WPtel: [address] [place], [place] [phone] [place] CANCELED 12/31/2017 Visit Diagnosis Plan: Actinic keratosis Discussion: Cr yotherapy as above but will see derm if lesions do not resolve ICD-9 : 702.0 ICD-10 : L57.0 10/22/2017 Appointment: Xiomara Bettencourt WPtel: [address] [place], [place] [phone] ACUTE ILLNESS 10/22/2017 Patient Education: Patient Medication [...] M79.605 04/22/2017 Appointment: Xiomara Bettencourt [facility]el: [phone] [facility] FOLLOW [facility] 04/22/2017 Patient Education: Patient Medication Summary Completed 04/22/2017 Patient Education: Patient Medication Summary Completed 04/16/2017 Care Plan: COMPREHEN METABOLIC PANEL SERGEI NC : 57691-1 Pending 04/16/2017 Care Plan: LIPID PANEL LOINC : 20434-5 Pending 04/16/2017 Care Plan: CBC Pending 04/16/2017 Care Plan: A1C HPLC LOINC : 87024-7 Pending 04/16/2017 Referral: Inocencio Goodson WPtel: [id number] [place] Referral Appointment Confirmed 10/14/2016 Visit Diagnosis Plan: Type 2 diabetes mellitus with hy perglycemia Discussion: Continue toujeo Accuchecks BID Follow Up: 4 months ICD-9 : 250.02 ICD-10 : E11.65 10/10/2016 Visit Diagnosis Plan: Angina pectoris, unspecified Dis cussion: Continue imdur and see cardiology To ER if chest pain returns ICD-9 : 413.9 ICD-10 : I20.9 10/10/2016 Appointment: Xiomara Bettencourt WPtel: [address] [place], [place] [phone] FOLLOW UP 10/10/2016 Patient Education: Patient Medication Summary Completed 10/10/2016 Patient Education: Patient Medication Summary Completed 09/16/2016 Care Plan: COMPREHEN METABOLIC PANEL SERGEI NC : 09024-3 Pending 09/16/2016 Care Plan: ASSAY THYROID STIM HORMONE Pen ding 09/16/2016 Care Plan: ASSAY OF FREE THYROXINE Pendin g 09/16/2016 Care Plan: LIPID PANEL LOINC : 35297-7 Pending 09/16/2016 Care Plan: CBC Pending 09/16/2016 Care Plan: A1C HPLC LOINC : 29756-4 Pending 09/16/2016 Visit Plan: CXR now to further evaluate symptoms Suspect viral since he has been on 2 rounds of antibiotics If chronic lung disease evident, 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 with instructions on use Continue oral prednisone, would like to avoid injection if possible considering his DM status and he is stable right now Continue albuterol PRN Will call with CXR results 08/31/2015 Appointment: Shannan Grimes [address] [place] [address] 08/31 confirmed- SP ACUTE ILLNESS 08/31/2015 Patient Education: Patient Medication Summary Completed 08/31/2015 Visit Plan: Albuterol INH via SVN every 4 hours Prednisone 20 mg PO BID Notify for worsening symptoms 08/29/2015 Appointment: Kelsie Grubbs WPtel: [address] [place], [place] [phone] ACUTE ILLNESS 08/29/2015 Patient Education: Patient Medication Summary Completed 08/29/2015 Appointment: Xiomara Bettencourt WPtel: [address] [place], [place] [phone] [place] LAB 07/26/2015 Patient Education: Patient Medication Summary Completed 07/26/2015 Visit Plan: Return in am for fasting lab s - CBC, CMP, TSH, Free T4, HgbA1C Change Levemir to Toujeo - Continue 35 Units q am - sample given Start physical Therapy for increased quadriceps strengthening and decreased pain in knees, bilaterally. 07/24/2015 Appointment: Kelsie Grubbs WPtel: [phone] [facility] 07/21 appt confirmed cn FOLLOW UP 07/24/19 Appointment: Kelsie Grubbs WPtel: [phone] [facility] FOLLOW UP 07/24/2015 Patient Education: Patient Medication [...] with insulin 05/01/2015 Appointment: Xiomara Bettencourt WPtel: [address] [place], [place] [phone] 04/28 confirmed~sl ACUTE ILLNESS 05/01/2015 Patient Education: Patient Medication Summary Completed 05/01/2015 Patient Education: Patient Medication Summary Completed 01/19/2015 Care Plan: URINALYSIS AUTO W/O SCOPE SERGEI NC : 15074-2 Pending 01/19/2015 Visit Plan: I have went [...] test 01/17/2015 Appointment: Xiomara Bettencourt WPtel: [phone] [facility] [place] 01/16 vm cn ACUTE ILLNESS 01/17/2015 Patient Education: Patient Medication Summary Completed 01/17/2015 Visit Plan: See Dr. Garvin for removal 09/29/2014 Appointment: Xiomara Bettencourt WPtel: [address] [place] [address] ACUTE ILLNESS 09/29/2014 Referral: Colt Garvin WPtel: [address] [place] Referral Initiated 09/29/2014 Patient Education: Patient Medication Summary Completed 09/29/2014 Visit Plan: Check CBC, CMP, TSH, free T4 , HbA1C, Lipids Accuchecks daily alternating times Patient has been adjusting own meds and has not taken any cholesterol meds for sometime Will check into surgery on right knee at [facility] Check carotid dopplers 08/04/2014 Appointment: Xiomara Bettencourt WPtel: [address] [place] [address] Annual Well Visit 08/04/2014 Patient Education: Patient Medication Summary Completed 08/04/2014 Appointment: Kelsie Grubbs WPtel: [address] [place] [address] ACUTE ILLNESS 02/18/2014 Patient Education: Patient Medication Summary Completed 02/18/2014 Patient Education: [facility] - Saving [employer] - 18+ - Dynamic Portal ID Completed 02/18/2014 Appointment: Xiomara Bettencourt WPtel: [address] [place], [place] [phone] 09/08/2013 Visit Plan: Check fasting lab in 1mo Con tinue Lantus and accuchecks at least BID 07/29/2013 Appointment: Xiomara Bettencourt WPtel: [address] [place], [place] [phone] FOLLOW UP 07/29/2013 Patient Education: Patient Medication Summary Completed 07/29/2013 Appointment: Xiomara Bettencourt WPtel: [address] [place], [place] [phone] [place] INJECTION 07/22/2013 Patient Education: Patient Medication Summary Completed 07/22/2013 Visit Plan: Pt has been self-adjusting m eds Stop metformin and amaryl Use Levemir 25u sc BID and call in 1wk with BS readings 05/26/2013 Appointment: Xiomara Bettencourt WPtel: [address] [place], [place] [phone] FOLLOW UP 05/26/2013 Patient Education: Patient Medication Summary Completed 05/26/2013 Visit Plan: DC Metformin Increase Lantus to 30u sc daily Change lisinopril to lisinopril HCT 20/25mg q AM Continue Gabapentin at current dose 04/28/2013 Appointment: Xiomara Bettencourt WPtel: [phone] [id number] FOLLOW UP 04/28/2013 Patient Education: Patient Medication Summary Completed 04/28/2013 Appointment: Xiomara Bettencourt WPtel: [address] [place], [place] [phone] LAB 03/12/2013 Patient Education: Patient Medication Summary Completed 03/12/2013 Visit Plan: Trial of neurontin 400mg q H S Obtain most recent lab results Change levemir to lantus per pt request Pt goes for sleep study tonite 03/11/2013 Appointment: Xiomara Bettencourt WPtel: [address] [place], [place] [phone] 02/01paperwork mailed 03/10 confirmed with spouse NEW PATIENT 11/2012 Patient Education: Patient Medication Summary Completed 03/11/2013 Instructions Comment . Saline nasal flushes prn. Tylenol/Motr in prn headache. Notify if persists/symptoms worsening. . 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 Check [...]
--- OUTSIDE RECORDS SUMMARY | 2020-02-02 21:40 | XMS REPORT | CCD ---
Author Author Sheng Bettencourt D.O. Organization [facility] DelphineEdvin BETTENCOURT DO [facility] Address [address] [place] [address] Phone Care Team Providers Care Poll Clerk Name Role Phone PP Unavailable CCM Unavailable Summary Purpose Interface Exchange Insurance Providers Payer name Policy type / Coverage type Covered republican ID Effective Begin Date Effective End Date WPS MEDICARE PART B [place] Medicare Part B [id number] 2018 Unknown [facility] Medicare Part B [id number] 2018 Un known Family history Mother Diagnosis Age At Onset Diabetes mellitus Type 2 Unknown Hypercholesterolemia Unknown Father Diagnosis Age At Onset No Family Disease Entered N/A Social History Social History Element Codes Description Effective Dates Marital status Unknown 03/11/2013 Number of children Unknown 4 03/11/2013 Employment Unknown Retired 03/11/[address]: 9856541 Former smoker 03/11/[address]: 376217 Currently drinks alc ohol Socially 03/11/2013 Has [...] chloride ER 20 mEq tablet,extended release RxNorm: 160800 1 Tablet(s) Oral QD to take with lasix 10/20/2019 11/19/2019 Active furosemide 40 mg tablet RxNorm: 894172 1 Tablet(s) Oral QAM for swelling 10/20/2019 11/19/2019 Active albuterol sulfate HFA 90 mcg/actuation aerosol inhaler RxNor m: 6930223 1-2 Puff(s) Inhalation as needed 10/12/2019 No Stop Date Active Zyrtec 10 mg tablet RxNorm: 2534327 1 Tablet(s) Oral QAM 10/12/2019 No Stop Date Active aspirin 81 mg tablet,delayed release RxNorm: 167505 1 Tablet(s) Oral QD 10/12/2019 No Stop Date Active Symbicort 160 mcg-4.5 mcg/actuation HFA aerosol inhaler RxNo rm: 3621452 2 Puff(s) Inhalation QD 10/12/2019 No Stop Date Active lisinopril 20 mg tablet RxNorm: 026156 1 Tablet(s) Oral QD 10/12/19 20 01/10/2020 Active simvastatin 20 mg tablet RxNorm: 033893 1 Tablet(s) Ora l QD Needs updated fasting labs 09/20/2019 12/19/2019 Active Needs updated fa sting labs before 90 day refill Flomax 0.4 mg capsule RxNorm: 673290 TAKE TWO CAPSULES BY MOUTH EVERY EVENING 08/03/2019 No Stop Date Active gabapentin 400 mg capsule RxNorm: 454177 TAKE ONE CAPSU LE BY MOUTH EVERY EVENING 08/02/2019 No Stop Date Active simvastatin 20 mg tablet RxNorm: 471658 1 Tablet(s) Ora l QD Needs updated fasting labs 07/21/2019 08/19/2019 Inactive Needs updated fa sting labs before 90 day refill simvastatin 20 mg tablet RxNorm: 347745 1 Tablet(s) Ora l QD Needs updated fasting labs 06/23/2019 07/20/2019 Inactive Needs updated fa sting labs before 90 day refill Flomax 0.4 mg capsule RxNorm: 471907 1 Capsule(s) Oral QD 05/13/2019 10/19/2019 Inactive Flomax 0.4 mg capsule RxNorm: 796311 TAKE TWO CAPSULES BY MOUTH EVERY EVENING 03/19/2019 05/12/2019 Inactive Augmentin 500 mg-125 mg tablet RxNorm: 790047 1 Tablet(s) PO BID 03/03/2019 Inactive baclofen 10 mg tablet RxNorm: 650583 TAKE ONE TABLET BY MOUTH EVERY NIGHT AT BEDTIME FOR PAIN OR SPASMS 01/14/2019 05/12/2019 Inactive Flomax 0.4 mg capsule RxNorm: 880835 TAKE TWO CAPSULES BY MOUTH EVERY EVENING 01/12/2019 03/18/2019 Inactive gabapentin 400 mg capsule RxNorm: 258291 1 Capsule(s) PO QPM 201806/27/2019 Inactive baclofen 10 mg tablet RxNorm: 038427 1 Tablet(s) PO QHS for my n/spasm 12/15/2018 01/13/2019 Inactive simvastatin 20 mg tablet RxNorm: 831894 TAKE ONE TABLET BY MOUT H DAILY 12/11/2018 06/22/2019 Inactive OneTouch Ultra Blue Test Strip RxNorm: Use 1 rigoberto t strip three times daily to check blood sugar (Dx:E11.65) 12/07/2018 No Stop Date Active gabapentin 400 mg capsule RxNorm: 479511 TAKE ONE CAPSU LE BY MOUTH EVERY EVENING 12/04/2018 12/29/2018 Inactive baclofen 10 mg tablet RxNorm: 160977 1 Tablet(s) PO QHS for my n/spasm 11/19/2018 12/15/2018 Inactive Flomax 0.4 mg capsule RxNorm: 221500 2 Capsule(s) PO QPM 09/15/2018 0 12/13/2018 Inactive WOULD LIKE 90DS!!! gabapentin 400 mg capsule RxNorm: 771590 TAKE ONE CAPSU LE BY MOUTH EVERY EVENING 07/21/2018 10/18/2018 Inactive simvastatin 20 mg tablet RxNorm: 683439 1 Tablet(s) PO QD 06/15/2018 12/10/2018 Inactive Flomax 0.4 mg capsule RxNorm: 499223 TAKE TWO CAPSULES BY MOUTH EVERY EVENING 06/02/2018 09/15/2018 Inactive WOULD LIKE 90DS!!! Flomax 0.4 mg capsule RxNorm: 329981 2 Capsule(s) PO QPM 04/21/2018 1 07/20/2017 Inactive simvastatin 20 mg tablet RxNorm: 197214 1 Tablet(s) PO QD Take 1 tablet by mouth daily. Patient due for labwork before further refill. 04/06/20182017 Inactive simvastatin 20 mg tablet RxNorm: 295533 Tablet(s) TAKE ONE TABLET BY MOUTH DAILY 03/25/2018 06/15/2018 Inactive simvastatin 20 mg tablet RxNorm: 660553 Tablet(s) TAKE ONE TABLET BY MOUTH DAILY due for appt 12/29/2017 03/25/2018 Inactive simvastatin 20 mg tablet RxNorm: 872029 TAKE ONE TABLET BY MOUT H DAILY 09/03/2017 12/29/2017 Inactive simvastatin 20 mg tablet RxNorm: 778501 1 Tablet(s) PO QD 10/22/2016 11/18/2018 Inactive isosorbide mononitrate ER 60 mg tablet,extended release 24 h r RxNorm: 052920 1 Tablet(s) PO QD 10/22/2016 04/21/2017 Inactive isosorbide mononitrate ER 60 mg tablet,extended release 24 h r RxNorm: 573455 1 Tablet(s) PO QD 10/10/2016 10/21/2016 Inactive simvastatin 20 mg tablet RxNorm: 564042 1 Tablet(s) PO QD 10/10/2016 10/21/2016 Inactive gabapentin 400 mg capsule RxNorm: 205432 1 Capsule(s) PO QPM 201609/20/2016 Inactive Toujeo SoloStar 300 unit/mL (1.5 mL) subcutaneous insulin pe n RxNorm: 3240204 35 Unit(s) SQ QAM 07/23/2016 07/22/2016 Inactive Toujeo SoloStar 300 unit/mL (1.5 mL) subcutaneous insulin pe n RxNorm: 4636346 40 Unit(s) SQ QAM 09/01/2015 No Stop Date Active Symbicort 160 mcg-4.5 mcg/actuation HFA aerosol inhaler RxNo rm: 4690783 2 Puff(s) INH BID 08/31/2015 09/09/2015 Inactive prednisone 20 mg tablet RxNorm: 005720 1 Tablet(s) PO BID 08/29/2015 09/02/2015 Inactive albuterol sulfate 2.5 mg/3 mL (0.083 %) solution for n ebulization RxNorm: 954888 1 Unit(s) INH Q4H as needed 08/29/2015 10/09/2016 Inactive levothyroxine 75 mcg tablet RxNorm: 947585 1 Tablet(s) PO QD 201507/27/2015 Inactive levothyroxine 75 mcg tablet RxNorm: 730819 1 Tablet(s) PO QD 201511/18/2018 Inactive levothyroxine 75 mcg tablet RxNorm: 822973 1 Tablet(s) PO QD 201507/27/2015 Inactive lisinopril 20 mg-hydrochlorothiazide 25 mg tablet RxNorm: 19 7887 TAKE ONE TABLET BY MOUTH EVERY MORNING. REPLACES PLAIN LISINOPRIL 03/06/2015 04/21/2017 Inactive lisinopril 20 mg-hydrochlorothiazide 25 mg tablet RxNorm: 19 7887 TAKE ONE TABLET BY MOUTH EVERY MORNING. REPLACES PLAIN LISINOPRIL 09/08/2014 03/05/2015 Inactive allopurinol 100 mg tablet RxNorm: 857403 1 Tablet(s) PO BID 015 10/09/2016 Inactive [SAVINGS FOR NON-COVERED YULIA GS -- BIN:[id number], PCN: [id number], Group: [id number], ID# [id number], Questions: . THIS IS NOT INSURANCE.] levothyroxine 50 mcg tablet RxNorm: 283643 1 Tablet(s) PO QD 201407/26/2015 Inactive [AttnRPh: Saving apply/adjud icate RxGRP:SG20 RxBIN:[id number] RxPCN: ID#:[id number]] Zegerid 40 mg-1.1 gram capsule RxNorm: 772238 1 Capsule(s) PO QD 03/03/2014 Inactive [AttnRPh: Saving apply/adjud icate RxGRP:SG20 RxBIN:[id number] RxPCN:HT ID#:[id number]] ondansetron 8 mg disintegrating tablet RxNorm: 719061 1 Tablet(s) PO Q8H as needed for [...] 07/28/2013 Inactive gabapentin 400 mg capsule RxNorm: 833064 1 Capsule(s) PO QPM 201207/28/2013 Inactive gabapentin 400 mg capsule RxNorm: 869229 1 Capsule(s) PO QPM 201206/26/2013 Inactive lisinopril 20 mg-hydrochlorothiazide 25 mg tablet RxNorm: 82 3971 1 Tablet(s) PO QAM replaces plain lisinopril 04/28/2013 07/29/2013 Inactive gabapentin 400 mg capsule RxNorm: 607894 1 Capsule(s) PO QPM 201204/27/2013 Inactive gabapentin 400 mg capsule RxNorm: 418780 1 Capsule(s) PO QPM 201203/10/2013 Inactive gabapentin 400 mg capsule RxNorm: 435380 1 Capsule(s) PO QPM 201203/14/2013 Inactive Lantus Solostar 100 unit/mL (3 mL) Sub-Q Insulin Pen RxNorm: 182207 20 Unit(s) SQ QPM 03/11/2013 03/15/2013 Inactive Toujeo SoloStar 300 unit/mL (1.5 mL) subcutaneous insulin pe n RxNorm: 6001486 35 Unit(s) SQ QAM No Start Date Active omeprazole 20 mg capsule,delayed release RxNorm: 207723 1 Capsu le(s) PO QD No Start Date Active isosorbide mononitrate ER 60 mg tablet,extended release 24 h r RxNorm: 458989 1 Tablet(s) PO QD No Start Date Active Eliquis 5 mg tablet RxNorm: 3583235 1 Tablet(s) PO BID No Start Date Active metformin 500 mg tablet RxNorm: 586968 1 Tablet(s) PO BID No Start Da te Active levothyroxine 50 mcg tablet RxNorm: 317285 1 Tablet(s) PO QD No Start Date Active Norvasc 10 mg tablet RxNorm: 736253 1 Tablet(s) PO QHS No Start Date Active Toujeo SoloStar 300 unit/mL (1.5 mL) subcutaneous insulin pe n RxNorm: 9456553 30 Unit(s) SQ QAM No Start Date Active glimepiride 4 mg tablet RxNorm: 483687 1 Tablet(s) PO QHS No Start Date 07/26/2015 Inactive allopurinol 100 mg tablet RxNorm: 911928 1 Tablet(s) PO BID No Star t Date 08/10/2014 Inactive Lantus Solostar 100 unit/mL (3 mL) subcutaneous insulin pen RxNorm: 145707 30 Unit(s) SQ QD No Start Date 08/03/2014 Inactive Levemir FlexTouch 100 unit/mL (3 mL) subcutaneous insulin pe n RxNorm: 611581 25 Unit(s) SQ QAM No Start Date 07/23/2015 Inactive Lantus 100 unit/mL Sub-Q RxNorm: 513594 30 Unit(s) SQ QHS No Start Date 05/25/2013 Inactive Lantus Solostar 100 unit/mL (3 mL) Sub-Q Insulin Pen RxNorm: 086293 20 Unit(s) SQ QPM No Start Date 03/10/2013 Inactive OneTouch Ultra Blue Test Strip RxNorm: Use 1 rigoberto t strip three times daily to check blood sugar (Dx:E11.65) No Start Date 12/06/2018 Inactive Levemir FlexTouch 100 unit/mL (3 mL) subcutaneous insulin pe n RxNorm: 514675 30- 35 Unit(s) SQ QAM No Start Date 07/23/2015 Inactive Levemir Flexpen 100 unit/mL (3 mL) solution subcutaneo us insulin pen RxNorm: 615626 20-25 Unit(s) SQ QD No Start Date 07/28/2013 Inactive lisinopril 20 mg tablet RxNorm: 211544 1 Tablet(s) PO QD No Start D ate 10/11/2019 Inactive indomethacin ER 75 mg capsule,extended release RxNorm: 35924 2 1 Capsule(s) PO QAM No Start Date 04/27/2013 Inactive indomethacin ER 75 mg capsule,extended release RxNorm: 74980 2 1 Capsule(s) PO QD No Start Date 01/16/2015 Inactive Chlortab-4 oral RxNorm: 056835 oral No Start Date 10/11/2019 Inac tive Vitamin D3 5,000 unit tablet RxNorm: 938572 1 Tablet(s) PO QD No St art Date 08/03/2014 Inactive Levemir Flexpen 100 unit/mL (3 mL) solution subcutaneo us insulin Pen RxNorm: 267608 20 Unit(s) SQ QHS No Start Date 03/10/2013 Inactive Vytorin 10 mg-40 mg tablet RxNorm: 2550954 1/2 Tablet(s) PO QD No S tart Date 04/20/2018 Inactive oxymetazoline-menthol 0.05 % nasal spray RxNorm: 2635172 [place] COTY No Start Date 10/11/2019 Inactive Patient states he ta kes every 10 hours Toujeo SoloStar 300 unit/mL (1.5 mL) subcutaneous insulin pe n RxNorm: 6928438 35 Unit(s) SQ QAM No Start Date 07/22/2016 Inactive Lantus Solostar 100 unit/mL (3 mL) subcutaneous insulin pen RxNorm: 216007 20 Unit(s) SQ QD No Start Date 08/03/2014 Inactive aspirin 81 mg tablet RxNorm: 285765 1 Tablet(s) PO QD No Start Date 0 08/03/2014 Inactive metformin 500 mg tablet RxNorm: 361128 1 Tablet(s) PO BID No Start Date 07/28/2013 Inactive glimepiride 4 mg tablet RxNorm: 545951 1 Tablet(s) PO BID No Start Date 01/16/2015 Inactive glimepiride 4 mg tablet RxNorm: 176660 1 Tablet(s) PO QD No Start D ate 08/03/2014 Inactive levothyroxine 25 mcg tablet RxNorm: 922890 1 Tablet(s) PO QD No Sta rt Date 08/10/2014 Inactive doxycycline oral RxNorm: 80697 oral No Start Date 05/12/2019 Inac tive aspirin 81 mg tablet RxNorm: 296245 1 Tablet(s) PO QD No Start Date 0 07/21/2018 Inactive isosorbide mononitrate ER 60 mg tablet,extended release 24 h r RxNorm: 803392 1 Tablet(s) PO BID No Start Date 01/16/2015 Inactive metformin 500 mg tablet RxNorm: 908291 1 Tablet(s) PO BID No Start Date 04/27/2013 Inactive Plavix 75 mg tablet RxNorm: 998463 1 Tablet(s) PO QD No Start Date Inactive glimepiride 4 mg tablet RxNorm: 860284 1 Tablet(s) PO QPM No Start Date 02/21/2019 Inactive Vytorin 10-40 10 mg-40 mg tablet RxNorm: 7127828 1 Tablet(s) PO QHS No Start Date 08/03/2014 Inactive indomethacin 50 mg capsule RxNorm: 098846 1 Capsule(s) PO QHS No St art Date 01/16/2015 Inactive glimepiride 4 mg tablet RxNorm: 705236 1 Tablet(s) PO BID No Start Date 07/28/2013 Inactive Levemir FlexTouch 100 unit/mL (3 mL) subcutaneous insulin pe n RxNorm: 076994 20 Unit(s) SQ QD No Start Date 04/30/2015 Inactive lisinopril 20 mg tablet RxNorm: 699561 1 Tablet(s) PO BID No Start Date 04/27/2013 Inactive Lantus Solostar SubQ RxNorm: Subcutaneous No Start Date 03/15/2013 I nactive Zantac 150 mg tablet RxNorm: 999716 1 Tablet(s) PO QHS No Start Date 10/11/2019 Inactive allopurinol 300 mg tablet RxNorm: 053518 1 Tablet(s) PO QD No Start Date 08/03/2014 Inactive Fish Oil 1,000 mg capsule RxNorm: 1 Capsule(s) PO QD No Start Date 02/21/2019 Inactive indomethacin 50 mg capsule RxNorm: 493919 1 Capsule(s) PO BID No St art Date 04/20/2018 Inactive levothyroxine 50 mcg tablet RxNorm: 066122 1 Tablet(s) PO QD No Sta rt Date 08/10/2014 Inactive glimepiride 4 mg tablet RxNorm: 502050 1 Tablet(s) PO BID No Start Date 03/15/2013 Inactive indomethacin 50 mg capsule RxNorm: 645397 1 Capsule(s) PO QHS No St art Date 04/27/2013 Inactive Medication Administered No Medication Administered data Immunizations Vaccine Codes Date Status Influenza CVX: 135 04/21/2018 Complete Influenza CVX: 135 04/22/2017 Complete Results Observation Observation Code Item Item Code Result Date S ervice Location [facility] 06106 Cholesterol 209 mg/dL 09/17/2016 Unkno wn [facility] 12576 Triglyceride 111 mg/dL 09/17/2016 Unkn own [facility] 59537 HDL CHOLESTEROL 50 mg/dL 09/17/2016 U nknown [facility] 67689 Chol/HDL Ratio 4.18 ratio 09/17/2016 U nknown [facility] 32475 NON-HDL Chol 159 mg/dL 09/17/2016 Unkn own [facility] 67141 LDL Cholesterol 137 mg/dL 09/17/2016 U nknown MEAN GLUC 4507563 Calc Mean Gluc 151 mg/dL 09/17/2016 Unkn own COMPREHENSIVE METABOLIC 48767 AST 23 U/L 2016 Unknown COMPREHENSIVE METABOLIC 37434 ALT 19 U/L 2016 Unknown [facility] 09510 BUN 15 mg/dL 2016 Unknown COMPREHENS[facility] MET[facility]OL[facility] 74113 ALBUMIN 4.3 g/dL 2016 Unknown COMPREHENSIVE METABOLIC 48693 CHLORIDE 103 mmol/L 09/17 Unknown COMPREHENSIVE METABOLIC 69443 Bili Total 0.6 mg/dL 09/17 Unknown COMPREHENSIVE METABOLIC 19486 ALK PHOS 60 U/L 2016 Unknown COMPREHENSIVE METABOLIC 89361 SODIUM 140 mmol/L 09/17 Unknown COMPREHENSIVE METABOLIC 04426 CREATININE 1.03 mg/dL 09/04 Unknown COMPREHENSIVE METABOLIC 78338 CALCIUM 9.5 mg/dL 2016 Unknown COMPREHENSIVE METABOLIC 49676 POTASSIUM 3.9 mmol/L 09/17 Unknown COMPREHENSIVE METABOLIC 84754 Total Protein 6.9 g/dL Unknown COMPREHENSIVE METABOLIC 73616 Glucose 94 mg/dL 2016 Unknown COMPREHENSIVE METABOLIC 77162 Bicarbonate 28 mmol/L 09/04 Unknown COMPREHENSIVE METABOLIC 68696 AGAP 9 mmol/L 2016 Unknown GFR CALC 4623716 GFR Non Afr Amr >60 mL/min 09/17/2016 Un known GFR CALC 0590966 GFR Afr Amr >60 mL/min 09/17/2016 Unknow n THYROID STIMULATING HORMONE 16560 TSH 4.260 uIU/mL 09/17/2016 Unknown GLYCOSYLATED HEMOGLOBIN TEST 17690 Hgb A1c 21840-7 6.9 % 0 09/17/2016 Unknown FREE T4 95273 T4 Free 1.02 ng/dL 09/17/2016 Unknown COMPLETE BLOOD COUNT 9203475 WBC 8.6 10e9/L 07/26/19 16 Unknown COMPLETE BLOOD COUNT [id number] RBC 4.86 10e12/L 2015 Unknown COMPLETE BLOOD COUNT 2545004 HGB 14.6 g/dL 6 Unknown COMPLETE BLOOD COUNT 9829949 HCT DET 43.1 % 6 Unknown COMPLETE BLOOD COUNT 9367580 MCV 88.7 fL 6 Unknown COMPLETE BLOOD COUNT 8503701 MCH 30.0 pg 6 Unknown COMPLETE BLOOD COUNT 4005941 MCHC 33.9 g/dL 6 Unknown COMPLETE BLOOD COUNT [id number] PLT 267 10e9/L 07/26/19 16 Unknown COMPLETE BLOOD COUNT 1081414 MPV 11.5 fL 6 Unknown COMPLETE BLOOD COUNT 1292802 SAM % 64.8 % 6 Unknown COMPLETE BLOOD COUNT 0972148 LY % 16.8 % 6 Unknown COMPLETE BLOOD COUNT 6094921 MON % 12.5 % 6 Unknown COMPLETE BLOOD COUNT [id number] EOS % 5.6 % 6 Unknown COMPLETE BLOOD COUNT [id number] BASO % 0.3 % 6 Unknown COMPLETE BLOOD COUNT 4324535 RDW 13.4 % 6 Unknown COMPLETE BLOOD COUNT [id number] ABS SAM 5.57 10e9/L 016 Unknown COMPLETE BLOOD COUNT [id number] ABS LYMPH 1.44 10e9/L 016 Unknown COMPLETE BLOOD COUNT [id number] ABS MONO 1.08 10e9/L 016 Unknown COMPLETE BLOOD COUNT [id number] ABS EOS 0.48 10e9/L 016 Unknown COMPLETE BLOOD COUNT [id number] ABS BASO 0.03 10e9/L 016 Unknown COMPLETE BLOOD COUNT 1484184 RDW-SD 42.9 fL 6 Unknown PSA EQUIMOLAR MATT 90816 PSA EQ 0.78 NG/ML 6 Unknown THYROID STIMULATING HORMONE 13340 TSH 5.292 uIU/ML 07/26/2015 Unknown GLYCOSYLATED HEMOGLOBIN TEST 64065 A1C HPLC 71730-7 7.0 % 0 07/26/2015 Unknown GFR CALC 1240878 GFR AA >60 ML/MIN 07/26/2015 Unknown GFR CALC 8748589 GFR NON-AA >60 ML/MIN 07/26/2015 Unknown [facility] 60451 HDL TEST 64 MG/DL 07/26/2015 Unknown [facility] 72181 TRIG 58 MG/DL 07/26/2015 Unknown [facility] 57041 TEST LDL 49 MG/DL 07/26/2015 Unknown [facility] 61341 CHOL 125 MG/DL 07/26/2015 Unknown [facility] 63871 RCHOL/HDL 1.95 RATIO 07/26/2015 Unknow n [facility] 82296 NON-HDL CH 61 MG/DL 07/26/2015 Unknow n COMPREHENSIVE METABOLIC 84761 AST 25 U/L 2015 Unknown COMPREHENSIVE METABOLIC 39245 ALT 23 IU/L 2015 Unknown COMPREHENSIVE METABOLIC 76830 BUN 18 MG/DL 2015 Unknown COMPREHENSIVE METABOLIC 50916 ALBUMIN 4.6 GM/DL 2015 Unknown COMPREHENSIVE METABOLIC 44299 CHLORIDE 100 MMOL/L 07/26 Unknown COMPREHENSIVE METABOLIC 23531 BILI TOT 0.5 MG/DL 2015 Unknown COMPREHENSIVE METABOLIC 27674 ALK PHOS 49 U/L 2015 Unknown COMPREHENSIVE METABOLIC 22974 SODIUM 137 MMOL/L 07/26 Unknown COMPREHENSIVE METABOLIC 27343 CREATININE 1.06 MG/DL 07/08 Unknown COMPREHENSIVE METABOLIC 86521 CALCIUM 9.5 MG/DL 2015 Unknown COMPREHENSIVE METABOLIC 18056 POTASSIUM 4.5 MMOL/L 07/26 Unknown COMPREHENSIVE METABOLIC 83348 PROT TOT 6.5 GM/DL 2015 Unknown COMPREHENSIVE METABOLIC 71551 Glucose 109 MG/DL 2015 Unknown COMPREHENSIVE METABOLIC 38801 BICARB 29 MMOL/L 2015 Unknown COMPREHENSIVE METABOLIC 52517 ANION GAP 8 MEQ/L 2015 Unknown FREE T4 20821 FREE T4 1.11 NG/DL 07/26/2015 Unknown CULTURE & SENSITIVITY 64193 PROTEIN UR NEG 015 Unknown [facility]ULT[facility] & SENSITIVITY 03518 HEMGLBN UR TR 015 Unknown CULTURE & SENSITIVITY 62198 GLUCOSE UR NEG 015 Unknown [facility] SENSITIVITY 97771 KETONES UR NEG 015 Unknown CULTURE & SENSITIVITY 01739 PH U 6.5 01/25/20 15 Unknown CULTURE & SENSITIVITY 25335 SP GR U 1.013 01/25/20 15 Unknown CULTURE & SENSITIVITY 21229 BILRUBN UR NEG 015 Unknown CULTURE & SENSITIVITY 96964 LEUKO UR NEG 01/25/20 15 Unknown CULTURE & SENSITIVITY 18477 NITRITE UR NEG 015 Unknown MICR CUL? [id number] SP TO JOHANA? NO 01/24/2015 Unknown MICR CUL? 9063635 APPEAR UR NORMAL 01/24/2015 Unknown MICR CUL? 2960340 RBC/uL 2.2 01/24/2015 Unknown MICR CUL? 2508767 WBC/uL 2.8 01/24/2015 Unknown MICR CUL? 1394248 SQ EPI/uL 1.0 01/24/2015 Unknown MICR CUL? 9196065 HYALCST/uL 0.25 01/24/2015 Unknown MICR CUL? 8951414 WBC /HPF 1 01/24/2015 Unknown MICR CUL? 6423582 RBC /HPF 0 01/24/2015 Unknown GLYCOSYLATED HEMOGLOBIN TEST 43582 A1C HPLC 83702-1 6.6 % 0 01/17/2015 Unknown COMPLETE BLOOD COUNT 3492663 WBC 10.1 10e9/L 015 Unknown COMPLETE BLOOD COUNT [id number] RBC 4.60 10e12/L 2014 Unknown COMPLETE BLOOD COUNT 6255145 HGB 14.0 g/dL 5 Unknown COMPLETE BLOOD COUNT 3004347 HCT DET 39.9 % 5 Unknown COMPLETE BLOOD COUNT 9559524 MCV 86.7 fL 5 Unknown COMPLETE BLOOD COUNT 6822143 MCH 30.4 pg 5 Unknown COMPLETE BLOOD COUNT 7295980 MCHC 35.1 g/dL 5 Unknown COMPLETE BLOOD COUNT 3475369 PLT 252 10e9/L 01/18/20 15 Unknown COMPLETE BLOOD COUNT 2630484 MPV 11.4 fL 5 Unknown COMPLETE BLOOD COUNT 6294517 SAM % 72.9 % 5 Unknown COMPLETE BLOOD COUNT 2341780 LY % 13.6 % 5 Unknown COMPLETE BLOOD COUNT 0409392 MON % 10.2 % 5 Unknown COMPLETE BLOOD COUNT [id number] EOS % 3.1 % 5 Unknown COMPLETE BLOOD COUNT 0261171 BASO % 0.2 % 5 Unknown COMPLETE BLOOD COUNT 1392648 RDW 13.6 % 5 Unknown COMPLETE BLOOD COUNT 4174454 ABS SAM 7.36 10e9/L 015 Unknown COMPLETE BLOOD COUNT 4156857 ABS LYMPH 1.37 10e9/L 015 Unknown COMPLETE BLOOD COUNT [id number] ABS MONO 1.03 10e9/L 015 Unknown COMPLETE BLOOD COUNT 6568972 ABS EOS 0.31 10e9/L 015 Unknown COMPLETE BLOOD COUNT 5812812 ABS BASO 0.02 10e9/L 015 Unknown COMPLETE BLOOD COUNT 9055558 RDW-SD 42.4 fL 5 Unknown GFR CALC 5928103 GFR AA 51.0L ML/MIN 01/17/2015 Unknow n GFR CALC 8338226 GFR NON-AA 42.0L ML/MIN 01/17/2015 Unkno wn FREE T4 02804 FREE T4 1.30 NG/DL 01/17/2015 Unknown THYROID STIMULATING HORMONE 75262 TSH 4.029 uIU/ML 01/17/2015 Unknown COMPREHENSIVE METABOLIC 10351 AST 28 U/L 2014 Unknown COMPREHENSIVE METABOLIC 10556 ALT 25 IU/L 2014 Unknown COMPREHENSIVE METABOLIC 03530 BUN 21 MG/DL 2014 Unknown COMPREHENSIVE METABOLIC 32987 ALBUMIN 4.7 GM/DL 2014 Unknown COMPREHENSIVE METABOLIC 50767 CHLORIDE 102 MMOL/L 01/17 Unknown COMPREHENSIVE METABOLIC 51468 BILI TOT 0.6 MG/DL 2014 Unknown COMPREHENSIVE METABOLIC 99995 ALK PHOS 44 U/L 2014 Unknown COMPREHENSIVE METABOLIC 45240 SODIUM 137 MMOL/L 01/17 Unknown COMPREHENSIVE METABOLIC 30796 CREATININE 1.62 MG/DL 01/04 Unknown COMPREHENSIVE METABOLIC 52736 CALCIUM 9.7 MG/DL 2014 Unknown COMPREHENSIVE METABOLIC 06800 POTASSIUM 4.5 MMOL/L 01/17 Unknown COMPREHENSIVE METABOLIC 55157 PROT TOT 6.5 GM/DL 2014 Unknown COMPREHENSIVE METABOLIC 50645 Glucose 136 MG/DL 2014 Unknown COMPREHENSIVE METABOLIC 92899 BICARB 24 MMOL/L 2014 Unknown COMPREHENSIVE METABOLIC 92296 ANION GAP 11 MEQ/L 2014 Unknown VITAMIN B 12 83190 VIT B 12 482 PG/ML 01/17/2015 Unknow n URIC ACID 80588 URIC ACID 8.5 MG/DL 08/09/2014 Unknown COMPREHENSIVE METABOLIC 50957 AST 27 U/L 2014 Unknown COMPREHENSIVE METABOLIC 42440 ALT 26 IU/L 2014 Unknown COMPREHENSIVE METABOLIC 80936 BUN 17 MG/DL 2014 Unknown COMPREHENSIVE METABOLIC 70921 ALBUMIN 5.0 GM/DL 2014 Unknown COMPREHENSIVE METABOLIC 55665 CHLORIDE 101 MMOL/L 08/09 Unknown COMPREHENSIVE METABOLIC 33133 BILI TOT 0.7 MG/DL 2014 Unknown COMPREHENSIVE METABOLIC 57602 ALK PHOS 53 U/L 2014 Unknown COMPREHENSIVE METABOLIC 51323 SODIUM 136 MMOL/L 08/09 Unknown COMPREHENSIVE METABOLIC 41790 CREATININE 1.14 MG/DL 09/2014 Unknown COMPREHENSIVE METABOLIC 73274 CALCIUM 9.8 MG/DL 2014 Unknown COMPREHENSIVE METABOLIC 07054 POTASSIUM 4.1 MMOL/L 08/09 Unknown COMPREHENSIVE METABOLIC 74755 PROT TOT 7.5 GM/DL 2014 Unknown COMPREHENSIVE METABOLIC 02217 Glucose 110 MG/DL 2014 Unknown COMPREHENSIVE METABOLIC 92407 BICARB 30 MMOL/L 2014 Unknown COMPREHENSIVE METABOLIC 64535 ANION GAP 5 MEQ/L 2014 Unknown GFR CALC 4862398 GFR AA >60 ML/MIN 08/09/2014 Unknown GFR CALC 0184781 GFR NON-AA >60 ML/MIN 08/09/2014 Unknown FREE T4 02013 FREE T4 1.14 NG/DL 08/09/2014 Unknown GLYCOSYLATED HEMOGLOBIN TEST 45930 A1C HPLC 26183-2 6.8 % 0 08/09/2014 Unknown COMPLETE BLOOD COUNT 4832617 WBC 5.9 10e9/L 08/09/19 15 Unknown COMPLETE BLOOD COUNT 4492965 RBC 5.04 10e12/L 2014 Unknown COMPLETE BLOOD COUNT 6548673 HGB 15.2 g/dL 5 Unknown COMPLETE BLOOD COUNT 5825199 HCT DET 44.3 % 5 Unknown COMPLETE BLOOD COUNT 0778496 MCV 87.9 fL 5 Unknown COMPLETE BLOOD COUNT 5280710 MCH 30.2 pg 5 Unknown COMPLETE BLOOD COUNT 0685815 MCHC 34.3 g/dL 5 Unknown COMPLETE BLOOD COUNT 5702228 PLT 262 10e9/L 08/09/19 15 Unknown COMPLETE BLOOD COUNT 0044691 MPV 10.9 fL 5 Unknown COMPLETE BLOOD COUNT [id number] SAM % 58.7 % 5 Unknown COMPLETE BLOOD COUNT [id number] LY % 21.5 % 5 Unknown COMPLETE BLOOD COUNT [id number] MON % 14.0 % 5 Unknown COMPLETE BLOOD COUNT [id number] EOS % 5.3 % 5 Unknown COMPLETE BLOOD COUNT [id number] BASO % 0.5 % 5 Unknown COMPLETE BLOOD COUNT [id number] RDW 13.1 % 5 Unknown COMPLETE BLOOD COUNT [id number] ABS SAM 3.46 10e9/L 015 Unknown COMPLETE BLOOD COUNT [id number] ABS LYMPH 1.27 10e9/L 015 Unknown COMPLETE BLOOD COUNT [id number] ABS MONO 0.83 10e9/L 015 Unknown COMPLETE BLOOD COUNT [id number] ABS EOS 0.31 10e9/L 015 Unknown COMPLETE BLOOD COUNT [id number] ABS BASO 0.03 10e9/L 015 Unknown COMPLETE BLOOD COUNT [id number] RDW-SD 41.2 fL 5 Unknown THYROID STIMULATING HORMONE [id number] TSH 5.395 uIU/ML 08/09/2014 Unknown LIPID GROUP [id number] HDL TEST 52 MG/DL 08/09/2014 Unknown LIPID GROUP [id number] TRIG 113 MG/DL 08/09/2014 Unknown LIPID GROUP [id number] TEST LDL 158 MG/DL 08/09/2014 Unknown LIPID GROUP 16469 CHOL 233 MG/DL 08/09/2014 Unknown LIPID GROUP 10120 RCHOL/HDL 4.48 RATIO 08/09/2014 Unknow n LIPID GROUP 85501 NON-HDL CH 181 MG/DL 08/09/2014 Unknow n COMPLETE BLOOD COUNT [id number] WBC 6.8 10e9/L 09/09/19 14 Unknown COMPLETE BLOOD COUNT [id number] RBC 5.18 10e12/L 2013 Unknown COMPLETE BLOOD COUNT [id number] HGB 15.2 g/dL 4 Unknown COMPLETE BLOOD COUNT [id number] HCT DET 44.7 % 4 Unknown COMPLETE BLOOD COUNT [id number] MCV 86.3 fL 4 Unknown COMPLETE BLOOD COUNT [id number] MCH 29.3 pg 4 Unknown COMPLETE BLOOD COUNT [id number] MCHC 34.0 g/dL 4 Unknown COMPLETE BLOOD COUNT [id number] PLT 236 10e9/L 09/09/19 14 Unknown COMPLETE BLOOD COUNT [id number] MPV 11.0 fL 4 Unknown COMPLETE BLOOD COUNT [id number] SAM % 58.2 % 4 Unknown COMPLETE BLOOD COUNT [id number] LY % 21.9 % 4 Unknown COMPLETE BLOOD COUNT [id number] MON % 12.5 % 4 Unknown COMPLETE BLOOD COUNT [id number] EOS % 7.3 % 4 Unknown COMPLETE BLOOD COUNT [id number] BASO % 0.1 % 4 Unknown COMPLETE BLOOD COUNT [id number] RDW 13.6 % 4 Unknown COMPLETE BLOOD COUNT [id number] ABS SAM 3.96 10e9/L 014 Unknown COMPLETE BLOOD COUNT [id number] ABS LYMPH 1.49 10e9/L 014 Unknown COMPLETE BLOOD COUNT [id number] ABS MONO 0.85 10e9/L 014 Unknown COMPLETE BLOOD COUNT [id number] ABS EOS 0.50 10e9/L 014 Unknown COMPLETE BLOOD COUNT [id number] ABS BASO 0.01 10e9/L 014 Unknown COMPLETE BLOOD COUNT [id number] RDW-SD 42.3 fL 4 Unknown COMPREHENSIVE METABOLIC 59075 AST 27 U/L 2013 Unknown COMPREHENSIVE METABOLIC 51628 ALT 30 IU/L 2013 Unknown COMPREHENSIVE METABOLIC 47448 BUN 16 MG/DL 2013 Unknown COMPREHENSIVE METABOLIC 11725 ALBUMIN 4.9 GM/DL 2013 Unknown COMPREHENSIVE METABOLIC 64072 CHLORIDE 99 MMOL/L 2013 Unknown COMPREHENSIVE METABOLIC 76244 BILI TOT 0.7 MG/DL 2013 Unknown COMPREHENSIVE METABOLIC 34572 ALK PHOS 53 U/L 2013 Unknown COMPREHENSIVE METABOLIC 66395 SODIUM 137 MMOL/L 09/08 Unknown COMPREHENSIVE METABOLIC 49863 CREATININE 1.01 MG/DL 11/2013 Unknown COMPREHENSIVE METABOLIC 96274 CALCIUM 10.0 MG/DL 09/08 Unknown COMPREHENSIVE METABOLIC 55179 POTASSIUM 4.4 MMOL/L 09/08 Unknown COMPREHENSIVE METABOLIC 59079 PROT TOT 7.1 GM/DL 2013 Unknown COMPREHENSIVE METABOLIC 66168 Glucose 148 MG/DL 2013 Unknown COMPREHENSIVE METABOLIC 09182 BICARB 30 MMOL/L 2013 Unknown COMPREHENSIVE METABOLIC 62765 ANION GAP 8 MEQ/L 2013 Unknown GFR CALC 1755423 GFR AA >60 ML/MIN 09/08/2013 Unknown GFR CALC 2548057 GFR NON-AA >60 ML/MIN 09/08/2013 Unknown FREE T4 25089 FREE T4 1.08 NG/DL 09/08/2013 Unknown GLYCOSYLATED HEMOGLOBIN TEST 43321 A1C HPLC 53809-6 7.3 % 0 09/08/2013 Unknown THYROID STIMULATING HORMONE 83506 TSH 5.454 uIU/ML 09/08/2013 Unknown LIPID GROUP 47767 HDL TEST 59 MG/DL 09/08/2013 Unknown LIPID GROUP 22847 TRIG 92 MG/DL 09/08/2013 Unknown LIPID GROUP 18496 TEST LDL 83 MG/DL 09/08/2013 Unknown LIPID GROUP 03231 CHOL 160 MG/DL 09/08/2013 Unknown LIPID GROUP 66135 RCHOL/HDL 2.71 RATIO 09/08/2013 Unknow n VITAMIN B 12 FOLIC ACID 56076|64400 VIT B 12 467 PG/ML 12/2012 Unknown VITAMIN B 12 FOLIC ACID 09886|80672 FOLIC ACID 12.2 NG/ML Unknown VITAMIN B 12 FOLIC ACID 29002|21560 VIT B 12 467 PG/ML 12/2012 Unknown THYROID STIMULATING HORMONE 65941 TSH 4.557 uIU/ML 03/12/2013 Unknown HEMOGLOBIN A1C (GLYCOSYLATED) 8788744 A1C HPLC 74717-9 7.6 % 03/12/2013 Unknown VITAMIN D TOTAL (25 HYDROXY) 07222 VIT D TOTL 17 NG/ML 03/12/2013 Unknown FREE T4 85080 FREE T4 1.07 NG/DL 03/12/2013 Unknown URIC ACID 34694 URIC ACID 5.2 MG/DL 03/12/2013 Unknown Procedures Procedure Codes Date THER/PROPH/DIAG INJ SC/IM CPT-4: 56227 05/13/2019 TRIAMCINOLONE ACET INJ NOS CPT-4: J3301 05/13/2019 DEXAMETHASONE SODIUM PHOS CPT-4: J1100 05/13/2019 THER/PROPH/DIAG INJ SC/IM CPT-4: 66840 02/22/2019 TRIAMCINOLONE ACET INJ NOS CPT-4: J3301 02/22/2019 FLU VACC PRSV FREE INC ANTIG 65 AND OLDER CPT-4: 61986 04/21/2018 ADMIN INFLUENZA VIRUS VAC CPT-4: G0008 04/21/2018 PRESCRIP TRANSMIT VIA ERX SY CPT-4: G8553 04/21/2018 DESTRUCT PREMALG LESION (Cryosurgery) CPT-4: 38377 FLU VACC PRSV FREE INC ANTIG 65 AND OLDER CPT-4: 20007 04/22/2017 ADMIN INFLUENZA VIRUS VAC CPT-4: G0008 04/22/2017 PRESCRIP TRANSMIT VIA ERX SY CPT-4: G8553 10/10/2016 PRESCRIP TRANSMIT VIA ERX SY CPT-4: G8553 08/29/2015 ROUTINE VENIPUNCTURE CPT-4: 05800 07/26/2015 ASSAY OF FREE THYROXINE CPT-4: 74373 07/26/2015 ASSAY THYROID STIM HORMONE CPT-4: 62430 07/26/2015 COMPREHEN METABOLIC PANEL CPT-4: 32925 07/26/2015 COMPLETE CBC W/AUTO DIFF WBC CPT-4: 28118 07/26/2015 LIPID PANEL CPT-4: 18698 07/26/2015 ASSAY OF PSA TOTAL CPT-4: 92177 07/26/2015 A1C HPLC CPT-4: 50100 07/26/2015 ROUTINE VENIPUNCTURE CPT-4: 15650 01/17/2015 ASSAY OF FREE THYROXINE CPT-4: 49497 01/17/2015 ASSAY THYROID STIM HORMONE CPT-4: 63695 01/17/2015 COMPREHEN METABOLIC PANEL CPT-4: 52089 01/17/2015 COMPLETE CBC W/AUTO DIFF WBC CPT-4: 08137 01/17/2015 A1C HPLC CPT-4: 74035 01/17/2015 VITAMIN B-12 CPT-4: 31393 01/17/2015 PPPS, subseq visit CPT-4: G0439 08/04/2014 PRESCRIP TRANSMIT VIA ERX SY CPT-4: G8553 02/18/2014 FLUZONE, 5ML (Medicare) CPT-4: Q2038 07/22/2013 ADMIN INFLUENZA VIRUS VAC CPT-4: G0008 07/22/2013 PRESCRIP TRANSMIT VIA ERX SY CPT-4: G8553 04/28/2013 ROUTINE VENIPUNCTURE CPT-4: 70159 03/12/2013 VITAMIN D TOTAL (25 HYDROXY) CPT-4: 66890 03/12/2013 VITAMIN B 12 FOLIC ACID CPT-4: 97619|57117 03/12/2013 A1C GLYCOSYLATED HEMOGLOBIN TEST CPT-4: 33085 013 ASSAY OF BLOOD/URIC ACID CPT-4: 59579 03/12/2013 ASSAY OF FREE THYROXINE CPT-4: 94167 03/12/2013 ASSAY THYROID STIM HORMONE CPT-4: 01041 03/12/2013 CUR TOBACCO NON-USER CPT-4: G8457 03/11/2013 [...] 1: 156/70 Code: 8480-6 BMI: 35.0 Code: 50322-8 Heart Rate 1: 68 bpm Height: 5'10" Respiratory Rate: 20 bpm SpO2: 95% Tempera ture: 36.5 (C) / 97.7 (F) Weight: 244 lbs 04/21/2018 Blood Pressure 1: 124/80 Code: 8480-6 BMI: 34.4 Code: 70622-8 Heart Rate 1: 80 bpm Height: 5'10" Respiratory Rate: 20 bpm SpO2: 96% Tempera ture: 37.0 (C) / 98.6 (F) Weight: 240 lbs 01/06/2018 Blood Pressure 1: 138/82 Code: 8480-6 BMI: 33.9 Code: 01109-6 Heart Rate 1: 96 bpm Height: 5'10" Respiratory Rate: 24 bpm SpO2: 98% Tempera ture: 35.9 (C) / 96.6 (F) Weight: 236 lbs 10/22/2017 Blood Pressure 1: 144/70 Code: 8480-6 BMI: 34.7 Code: 16710-9 Heart Rate 1: 72 bpm Height: 5'10" Respiratory Rate: 20 bpm SpO2: 96% Tempera ture: 36.9 (C) / 98.4 (F) Weight: 242 lbs 04/22/2017 Blood Pressure 1: 146/82 Code: 8480-6 BMI: 32.9 Code: 26963-0 Heart Rate 1: 104 bpm Height: 5'10" Respiratory Rate: 20 bpm SpO2: 95% Tempera ture: 36.9 (C) / 98.5 (F) Weight: 229 lbs 10/10/2016 Blood Pressure 1: 124/64 Code: 8480-6 BMI: 32.9 Code: 54749-6 Heart Rate 1: 64 bpm Height: 5'10" [...] 1: 146/90 Code: 8480-6 BMI: 34.1 Code: 51389-2 Heart Rate 1: 80 bpm Height: 5'10" Respiratory Rate: 20 bpm Temperature: 36 .8 (C) / 98.2 (F) Weight: 238 lbs 01/17/2015 Blood Pressure 1: 116/60 Code: 8480-6 BMI: 32.7 Code: 64794-6 Heart Rate 1: 84 bpm Height: 5'10" Respiratory Rate: 20 bpm Temperature: 36 .7 (C) / 98.0 (F) Weight: 228 lbs 09/29/2014 Blood Pressure 1: 136/78 Code: 8480-6 BMI: 33.9 Code: 11582-4 Heart Rate 1: 80 bpm Height: 5'10" Respiratory Rate: 20 bpm Temperature: 36 .6 (C) / 97.9 (F) Weight: 236 lbs 08/04/2014 Blood Pressure 1: 132/70 Code: 8480-6 BMI: 32.9 Code: 16402-6 Heart Rate 1: 72 bpm Height: 5'10" Respiratory Rate: 20 bpm Temperature: 36 .7 (C) / 98.0 (F) Weight: 229 lbs 02/18/2014 Blood Pressure 1: 124/82 Code: 8480-6 Heart Rate 1: 82 bpm Respiratory Rate: 18 bpm Temperature: 36.4 (C) / 97.5 (F) Weight: 232 lbs 07/29/2013 Blood Pressure 1: 146/80 Code: 8480-6 BMI: 34.1 Code: 86706-5 Heart Rate 1: 64 bpm Height: 5'10" Respiratory Rate: 20 bpm Temperature: 36 .9 (C) / 98.5 (F) Weight: 238 lbs 05/26/2013 Blood Pressure 1: 142/90 Code: 8480-6 BMI: 34.0 Code: 44443-9 Heart Rate 1: 84 bpm Height: 5'10" Respiratory Rate: 20 bpm Temperature: 36 .7 (C) / 98.0 (F) Weight: 237 lbs 04/28/2013 Blood Pressure 1: 118/78 Code: 8480-6 BMI: 32.9 Code: 48706-9 Heart Rate 1: 74 bpm Height: 5'10" Respiratory Rate: 20 bpm Temperature: 36 .1 (C) / 97.0 (F) Weight: 229 lbs 03/11/2013 Blood Pressure 1: 146/80 Code: 8480-6 BMI: 31.5 Code: 57990-6 Heart Rate 1: 80 bpm Height: 6' [...] care Encounters Encounter Performer Location Codes Date ([id number]) OFFICE/OUTPATIENT VISIT EST Diagnosis: Chronic obstructive pulmonary disease, unspecified[ICD10: J44.9] Diagnosis: DM w/o complication type II, uncontrolled[ICD10: E11.65] Diagnosis: Edema[ICD10: R60.9] Xiomara BETTENCOURT [facility] CPT-4: 64852 10/20/2019 ([id number]) OFFICE/OUTPATIENT VISIT EST Diagnosis: Other dyspnea and respiratory abnormality[ICD10: R06.09] Diagnosis: Obstructive sleep apnea[ICD10: G47.33] Diagnosis: Hypotension[ICD10: I95.9] Xiomara Bettencourt [facility] CPT -4: 87630 10/12/2019 ([id number]) OFFICE/OUTPATIENT VISIT EST Diagnosis: Upper respiratory infection[ICD10: J06.9] Pennie BETTENCOURT [facility] CPT-4: 48279 06/02/2019 ([id number]) OFFICE/OUTPATIENT VISIT EST Diagnosis: Sinusitis[ICD10: J32.9] Diagnosis: Allergic rhinitis[ICD10: J30.9] Pennie BETTENCOURT DO [facility] CPT-4: 65639 05/13/2019 ([id number]) OFFICE/OUTPATIENT VISIT EST Diagnosis: Pneumonia[ICD10: J18.9] Pennie ROSENBAUM DO [facility] CPT-4: 00466 04/26/2019 ([id number]) OFFICE/OUTPATIENT VISIT EST Diagnosis: Acute sinusitis, unspecified[ICD10: J01.90] Pennie BETTENCOURT DO [facility] CPT-4: 94296 02/22/2019 ([id number]) OFFICE/OUTPATIENT VISIT EST Diagnosis: Cervicalgia[ICD10: M54.2] Xiomara MAGALLON [facility] CPT-4: 44448 11/25/2018 ([id number]) OFFICE/OUTPATIENT VISIT EST Diagnosis: Acute sinusitis, unspecified[ICD10: J01.90] Diagnosis: Myalgia, unspecified site[ICD10: M79.10] Diagnosis: Cervicalgia[ICD10: M54.2] Xiomara MAGALLON [facility] CPT-4: 99642 11/19/2018 ([id number]) OFFICE/OUTPATIENT VISIT EST Diagnosis: Low back pain[ICD10: M54.5] Diagnosis: Essential (primary) hypertension[ICD10: I10] Diagnosis: 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, 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] Diagnosis: Paroxysmal atrial fibrillation[ICD10: I48.0] Xiomara BETTENCOURT DO [facility] CPT-4: 87362 07/22/2018 ([id number]) OFFICE/OUTPATIENT VISIT EST Diagnosis: Type 2 diabetes mellitus with diabetic neuropathy, unspecified[ICD10: E11.40] Diagnosis: Hyperlipidemia, unspecified[ICD10: E78.5] Diagnosis: Essential (primary) hypertension[ICD10: I10] Diagnosis: Chronic kidney disease, stage 1[ICD10: N18.1] Diagnosis: Benign prostatic hyperplasia with lower urinary tract symptoms[ICD10: N40.1] Diagnosis: FLU VACCINE[ICD10: Z23] Xiomara Bettencourt XIOMARA Elvia ROSENBAUM [facility] CPT-4: 69926 04/21/2018 OFFICE/OUTPATIENT VISIT EST Diagnosis: Type 2 diabetes mellitus with hyperglycemia[ICD10: E11.65] Diagnosis: Essential (primary) hypertension[ICD10: I10] Diagnosis: Mixed hyperlipidemia[ICD10: E78.2] Diagnosis: Other fatigue[ICD10: R53.83] Pennie HANLINE [facility]phineEdvin [facility] CPT-4: 18208 01/06/2018 ([id number]) OFFICE/OUTPATIENT VISIT EST Diagnosis: Type 2 diabetes mellitus with diabetic neuropathy, unspecified[ICD10: E11.40] Diagnosis: Essential (primary) hypertension[ICD10: I10] Diagnosis: Pain in right thigh[ICD10: M79.651] Diagnosis: Pain in left leg[ICD10: M79.605] Diagnosis: Localized swelling, mass and lump, left lower limb[ICD10: R22.42] Diagnosis: OSTEOARTHRISIS MULTI SITES[ICD10: M19.90] Diagnosis: FLU VACCINE[ICD10: Z23] Xiomara Renonelson LARA DelphineEdvin [facility] CPT-4: 60220 04/22/2017 ([id number]) OFFICE/OUTPATIENT VISIT EST Diagnosis: Essential (primary) hypertension[ICD10: I10] Diagnosis: Type 2 diabetes mellitus with hyperglycemia[ICD10: E11.65] Diagnosis: Angina pectoris, unspecified[ICD10: I20.9] Xiomara LARA DelphineEdvin [facility] CPT-4: 05539 10/10/2016 ([id number]) OFFICE/OUTPATIENT VISIT EST Diagnosis: Cough[ICD10: R05] Diagnosis: Wheezing[ICD10: R06.2] Diagnosis: Chronic obstructive pulmonary disease, unspecified[ICD10: J44.9] Shannan Gan [facility] CPT-4: 84872 08/31/2015 OFFICE/OUTPATIENT VISIT EST Diagnosis: Acute bronchitis, unspecified[ICD10: J20.9] Diagnosis: Wheezing[ICD10: R06.2] Kelsie Gan [facility] CPT-4: 34590 08/29/2015 ([id number]) OFFICE/OUTPATIENT VISIT EST Diagnosis: Type 2 diabetes mellitus with diabetic neuropathy, unspecified[ICD10: E11.40] Diagnosis: Hyperlipidemia, unspecified[ICD10: E78.5] Diagnosis: Essential (primary) hypertension[ICD10: I10] Diagnosis: Encounter for general adult medical examination without abnormal findings[ICD10: Z00.00] Xiomara BETTENCOURT [facility] CPT-4: 58040 07/26/2015 OFFICE/OUTPATIENT VISIT EST Diagnosis: Type 2 diabetes mellitus with hyperglycemia[ICD10: E11.65] Diagnosis: Unspecified osteoarthritis, unspecified site[ICD10: M19.90] Diagnosis: Other instability, right knee[ICD10: M25.361] Kelsie BETTENCOURT DO [facility] CPT-4: 78320 07/24/2015 ([id number]) OFFICE/OUTPATIENT VISIT EST Diagnosis: Pain in leg, unspecified[ICD10: M79.606] Diagnosis: Type 2 diabetes mellitus with diabetic neuropathy, unspecified[ICD10: E11.40] Xiomara BETTENCOURT [facility] CPT-4: 43908 05/01/2015 ([id number]) OFFICE/OUTPATIENT VISIT EST Diagnosis: MALAISE AND FATIGUE[ICD9: 780.79] Diagnosis: 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, 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] Diagnosis: CAD[ICD9: 414.00] Diagnosis: ANEMIA NOS[ICD9: 285.9] Xiomara ROSENBAUM [facility] CPT-4: 64896 01/17/2015 ([id number]) OFFICE/OUTPATIENT VISIT EST Diagnosis: Skin lesion[ICD9: 709.9] Xiomara GENAO [facility] CPT-4: 47683 09/29/2014 OFFICE/OUTPATIENT VISIT EST Diagnosis: GASTROENTERITIS[ICD9: 558.9] Diagnosis: GERD[ICD9: 530.81] Kelsie BETTENCOURT DO [facility] CPT-4: 98295 02/18/2014 ([id number]) OFFICE/OUTPATIENT VISIT EST Diagnosis: 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I, UNCONTROLLED[ICD9: 250.02] Xiomara BETTENCOURT [facility] CPT-4: 63548 07/29/2013 ([id number]) OFFICE/OUTPATIENT VISIT EST Diagnosis: FLU VACCINE[ICD9: V04.81] Xiomara MAGALLON [facility] CPT-4: 99196 07/22/2013 ([id number]) OFFICE/OUTPATIENT VISIT EST Diagnosis: 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I, UNCONTROLLED[ICD9: 250.02] Diagnosis: HYPERTENSION[ICD9: 401.9] Xiomara MAGALLON [facility] CPT-4: 05045 05/26/2013 ([id number]) OFFICE/OUTPATIENT VISIT EST Diagnosis: MONONEURITIS[ICD9: 355.9] Diagnosis: RESTLESS LEGS SYNDROME[ICD9: 333.94] Diagnosis: HYPERTENSION[ICD9: 401.9] Diagnosis: CAD[ICD9: 414.00] Diagnosis: Weakness[ICD9: 780.79] Xiomara Dolan [facility] CPT-4: 32940 04/28/2013 ([id number]) OFFICE/OUTPATIENT VISIT EST Diagnosis: 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[ICD9: 250.01] Diagnosis: MONONEURITIS[ICD9: 355.9] Diagnosis: HYPERLIPIDEMIA NEC/NOS[ICD9: 272.4] Diagnosis: CAD[ICD9: 414.00] Xiomara BETTENCOURT [facility] CPT-4: 65635 03/12/2013 OFFICE/OUTPATIENT VISIT NEW Diagnosis: CAD[ICD9: 414.00] Diagnosis: HYPERLIPIDEMIA NEC/NOS[ICD9: 272.4] Diagnosis: HYPERTENSION[ICD9: 401.9] Diagnosis: Neuropathy[ICD9: 355.9] Diagnosis: RESTLESS LEGS SYNDROME[ICD9: 333.94] Xiomara BETTENCOURT [facility] CPT-4: 51697 03/11/2013 Plan of Care Planned Activity Notes [...] R60.9 10/20/2019 Patient Education: furosemide- OptimizeRX Coupon [id number] [email or web address] Completed 10/20/2019 Visit Diagnosis Plan: Obstructive sleep [...] : I95.9 10/12/2019 Appointment: Xiomara Bettencourt WPtel: [address] [place], [place] [phone] TELEMEDICINE 10/12/2019 Appointment: Xiomara Bettencourt WPtel: [address] [place], [place] [phone] [place] RESCHEDULED 09/23/2019 Care Plan: COMPREHEN METABOLIC PANEL SERGEI NC : 82064-1 Pending 09/20/2019 Care Plan: LIPID PANEL LOINC : 16195-3 Pending 09/20/2019 Care Plan: A1C HPLC LOINC : 11755-4 Pending 09/20/2019 Care Plan: COMPLETE CBC W/AUTO DIFF WBC LOINC : 10339-3 Pending 09/20/2019 Visit Diagnosis Plan: Upper respiratory infection Disc ussion: discussed that most likely viral. push fluids and rest through the week. patient has left over levaquin at home (5 days worth). instructed patient to start taking if he gets worse later this week and to call us next week if no improvement. ICD-9 : 465.9 ICD-10 : J06.9 06/02/2019 Appointment: Pennie Pizarro [address] [place], [place] [phone] ACUTE ILLNESS 06/02/2019 Visit Diagnosis Plan: Allergic [...] ICD-10 : J30.9 05/13/2019 Appointment: Pennie Pizarro [address] [place], [place] [phone] ACUTE ILLNESS 05/13/2019 Appointment: Xiomara Bettencourt WPtel: [phone] [facility] US CANCELED 04/27/2019 Visit Diagnosis Plan: Pneumonia Discussion: will obtai n records from urgent care. instructed to finish out doxy. no rhonchi or crackles auscultated. symbicort sample given to patient with instructions to use bid. call office later this week with new or worsening symptoms. ICD-9 : 486 ICD-10 : J18.9 04/26/2019 Appointment: Pennie Pizarro [address] [place], [place] [phone] [place] FOLLOW UP 04/26/2019 Visit Diagnosis Plan: [...] ICD-10 : J01.90 02/22/2019 Appointment: Pennie Pizarro [address] [place] [address] ACUTE ILLNESS 02/22/2019 Patient Education: prednisone- [employer] Coupon [phone] [email or web address] Completed 02/22/2019 Visit Diagnosis Plan: Cervicalgia Discussion: Check Ce rvical Spine X-ray Will likely need PT ICD-9 : 723.1 ICD-10 : M54.2 11/25/2018 Appointment: Xiomara Bettencourt WPtel: [phone] ACUTE ILLNESS 11/25/2018 Visit Plan: Saline [...] M79.10 11/19/2018 Appointment: Xiomara Bettencourt WPtel: [phone] ACUTE ILLNESS 11/19/2018 Patient Education: baclofen- [employer] Coupon [id number] [email or web address]/[email or web address] Completed 11/19/2018 Visit Diagnosis Plan: Essential (primary) [...] E10.9 07/22/2018 Appointment: [facility] Bettencourt [facility]el[facility] [phone] [facility] [facility] 07/22/2018 Visit Diagnosis Plan: Benign prostatic h yperplasia with lower urinary tract symptoms Discussion: Trial of flomax Call in 1 mo [facility] on how doing Follow Up: 4 [...] N18.1 04/21/2018 Appointment: Xiomara Bettencourt [facility]Ptel[facility] [phone] [facility] [facility] FOLLOW [facility] 04/21/2018 Patient Education: [...] ICD-10 : E11.65 01/06/2018 Appointment: Pennie Pizarro [address] [place] [address] MEDICATION REVIEW 01/06/2018 Patient Education: Patient Medication Summary Completed 01/06/2018 Appointment: Xiomara Bettencourt WPtel: [address] [place], [place] [phone] [place] NO SHOW 01/05/2018 Appointment: Xiomara Bettencourt WPtel: [address] [place], [place] [phone] [place] CANCELED 12/31/2017 Visit Diagnosis Plan: Actinic keratosis Discussion: Cr yotherapy as above but will see derm if lesions do not resolve ICD-9 : 702.0 ICD-10 : L57.0 10/22/2017 Appointment: Xiomara Bettencourt WPtel: [address] [place], [place] [phone] ACUTE ILLNESS 10/22/2017 Patient Education: Patient Medication [...] M19.90 04/22/2017 Appointment: Xiomara Bettencourt WPtel[facility] [phone] [facility] FOLLOW UP 04/22/2017 Patient Education: Patient Medication Summary Completed 04/22/2017 Patient Education: Patient Medication Summary Completed 04/16/2017 Care Plan: COMPREHEN METABOLIC PANEL SERGEI NC : 07844-1 Pending 04/16/2017 Care Plan: LIPID PANEL LOINC : 20187-2 Pending 04/16/2017 Care Plan: CBC Pending 04/16/2017 Care Plan: A1C HPLC LOINC : 19799-0 Pending 04/16/2017 Ref[phone] [facility] Confirmed 10/14/2016 Visit Diagnosis Plan: Angina pectoris, unspecified Dis cussion: Continue imdur and see cardiology To ER if chest pain returns ICD-9 : 413.9 ICD-10 : I20.9 10/10/2016 Visit Diagnosis Plan: Type 2 diabetes mellitus with hy perglycemia Discussion: Continue toujeo Accuchecks BID Follow Up: 4 months ICD-9 : 250.02 ICD-10 : E11.65 10/10/2016 Appointment: Xiomara Bettencourt WPtel: [address] [place], [place] [phone] [place] FOLLOW UP 10/10/2016 Patient Education: Patient Medication Summary Completed 10/10/2016 Patient Education: Patient Medication Summary Completed 09/16/2016 Care Plan: COMPREHEN METABOLIC PANEL SERGEI NC : 08286-6 Pending 09/16/2016 Care Plan: ASSAY THYROID STIM HORMONE Pen ding 09/16/2016 Care Plan: ASSAY OF FREE THYROXINE Pendin g 09/16/2016 Care Plan: LIPID PANEL LOINC : 65598-9 Pending 09/16/2016 Care Plan: CBC Pending 09/16/2016 Care Plan: A1C HPLC LOINC : 01989-4 Pending 09/16/2016 Visit Plan: CXR now to further evaluate symptoms Suspect viral since he has been on 2 rounds of antibiotics If chronic lung disease evident, will consider keeping on symbicort intermediate card tender Sample inhaler given today with instructions on use Continue oral prednisone, would like to avoid injection if possible considering his DM status and he is stable right now Continue albuterol PRN Will call with CXR results 08/31/2015 Appointment: Shannan Grimes [address] [place] [address] 08/31 confirmed- SP ACUTE ILLNESS 08/31/2015 Patient Education: Patient Medication Summary Completed 08/31/2015 Visit Plan: Albuterol INH via SVN every 4 hours Prednisone 20 mg PO BID Notify for worsening symptoms 08/29/2015 Appointment: Kelsie Grubbs WPtel: [address] [place], [place] [phone] ACUTE ILLNESS 08/29/2015 Patient Education: Patient Medication Summary Completed 08/29/2015 Appointment: Xiomara Bettencourt WPtel: [address] [place], [place] [phone] [place] LAB 07/26/2015 Patient Education: Patient Medication Summary Completed 07/26/2015 Visit Plan: Return in am for fasting lab s - CBC, CMP, TSH, Free T4, HgbA1C Change Levemir to Toujeo - Continue 35 Units q am - sample given Start physical Therapy for increased quadriceps strengthening and decreased pain in knees, bilaterally. 07/24/2015 Appointment: Kelsie Grubbs WPtel: [phone] [facility] 07/21 appt confirmed cn FOLLOW UP 07/24/19 Appointment: Kelsie Grubbs WPtel: [phone] [facility] FOLLOW UP 07/24/2015 Patient Education: Patient [...] with insulin 05/01/2015 Appointment: Xiomara Bettencourt WPtel: [address] [place], [place] [phone] 04/28 confirmed~sl ACUTE ILLNESS 05/01/2015 Patient Education: Patient Medication Summary Completed 05/01/2015 Patient Education: Patient Medication Summary Completed 01/19/2015 Care Plan: URINALYSIS AUTO W/O SCOPE SERGEI NC : 91736-7 Pending 01/19/2015 Visit Plan: I have went [...] test 01/17/2015 Appointment: Xiomara Bettencourt WPtel: [phone] [facility] US 01/16 vm cn ACUTE ILLNESS 01/17/2015 Patient Education: Patient Medication Summary Completed 01/17/2015 Visit Plan: See Dr. Garvin for removal 09/29/2014 Appointment: Xiomara Bettencourt WPtel: [address] [place] [address] ACUTE ILLNESS 09/29/2014 Referral: Colt Garvin WPtel: [address] [place] Referral Initiated 09/29/2014 Patient Education: Patient Medication Summary Completed 09/29/2014 Visit Plan: Check CBC, CMP, TSH, free T4 , HbA1C, Lipids Accuchecks daily alternating times Patient has been adjusting own meds and has not taken any cholesterol meds for sometime Will check into surgery on right knee at [facility] Check carotid dopplers 08/04/2014 Appointment: Xiomara Bettencourt WPtel: [address] [place] [address] Annual Well Visit 08/04/2014 Patient Education: Patient Medication Summary Completed 08/04/2014 Appointment: Kelsie Grubbs WPtel: [address] [place] [address] ACUTE ILLNESS 02/18/2014 Patient Education: Patient Medication Summary Completed 02/18/2014 Patient Education: [facility] - Saving AutoInj - 18+ - Dynamic Portal ID Completed 02/18/2014 Appointment: Xiomara Bettencourt WPtel: [address] [place], [place] [phone] 09/08/2013 Visit Plan: Check fasting lab in 1mo Con tinue Lantus and accuchecks at least BID 07/29/2013 Appointment: Xiomara Bettencourt WPtel: [address] [place], [place] [phone] FOLLOW UP 07/29/2013 Patient Education: Patient Medication Summary Completed 07/29/2013 Appointment: Xiomara Bettencourt WPtel: [address] [place], [place] [phone] [place] INJECTION 07/22/2013 Patient Education: Patient Medication Summary Completed 07/22/2013 Visit Plan: Pt has been self-adjusting m eds Stop metformin and amaryl Use Levemir 25u sc BID and call in 1wk with BS readings 05/26/2013 Appointment: Xiomara Bettencourt WPtel: [address] [place], [place] [phone] FOLLOW UP 05/26/2013 Patient Education: Patient Medication Summary Completed 05/26/2013 Visit Plan: DC Metformin Increase Lantus to 30u sc daily Change lisinopril to lisinopril HCT 20/25mg q AM Continue Gabapentin at current dose 04/28/2013 Appointment: Xiomara Bettencourt WPtel: [phone] [id number] FOLLOW UP 04/28/2013 Patient Education: Patient Medication Summary Completed 04/28/2013 Appointment: Xiomara Bettencourt WPtel: [address] [place], [place] [phone] LAB 03/12/2013 Patient Education: Patient Medication Summary Completed 03/12/2013 Visit Plan: Trial of neurontin 400mg q H S Obtain most recent lab results Change levemir to lantus per pt request Pt goes for sleep study tonite 03/11/2013 Appointment: Xiomara Bettencourt WPtel: [address] [place], [place] [phone] 02/01paperwork mailed 03/10 confirmed with spouse NEW PATIENT 11/2012 Patient Education: Patient Medication Summary Completed 03/11/2013 Instructions Comment . Saline nasal flushes prn. Tylenol/Motr in prn headache. Notify if persists/symptoms worsening. . 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 Check carotid dopplers . Check fasting [...]
--- OUTSIDE RECORDS SUMMARY | 2020-02-02 21:41 | XMS REPORT | CCD ---
Author Author Sheng Bettencourt D.O. Organization [facility] Address [address] [place] [address] Phone Care Team Providers Care Performance Reporter Name Role Phone PP Unavailable CCM Unavailable Summary Purpose Interface Exchange Insurance Providers Payer name Policy type / Coverage type Covered constitution party ID Effective Begin Date Effective End Date WPS MEDICARE PART B [place] Medicare Part B [id number] 2018 Unknown [facility] Medicare Part B [id number] 2018 Un known Family history Mother Diagnosis Age At Onset Diabetes mellitus Type 2 Unknown Hypercholesterolemia Unknown Father Diagnosis Age At Onset No Family Disease Entered N/A Social History Social History Element Codes Description Effective Dates Marital status Unknown 03/11/2013 Number of children Unknown 4 03/11/2013 Employment Unknown Retired 03/11/[address]: 1366978 Former smoker 03/11/[address]: 684948 Currently drinks alc ohol Socially 03/11/2013 Has [...] chloride ER 20 mEq tablet,extended release RxNorm: 537297 1 Tablet(s) Oral QD to take with lasix 10/20/2019 11/19/2019 Active furosemide 40 mg tablet RxNorm: 649743 1 Tablet(s) Oral QAM for swelling 10/20/2019 11/19/2019 Active albuterol sulfate HFA 90 mcg/actuation aerosol inhaler RxNor m: 7060878 1-2 Puff(s) Inhalation as needed 10/12/2019 No Stop Date Active Zyrtec 10 mg tablet RxNorm: 6751550 1 Tablet(s) Oral QAM 10/12/2019 No Stop Date Active aspirin 81 mg tablet,delayed release RxNorm: 588802 1 Tablet(s) Oral QD 10/12/2019 No Stop Date Active Symbicort 160 mcg-4.5 mcg/actuation HFA aerosol inhaler RxNo rm: 0128983 2 Puff(s) Inhalation QD 10/12/2019 No Stop Date Active lisinopril 20 mg tablet RxNorm: 553548 1 Tablet(s) Oral QD 10/12/19 20 01/10/2020 Active simvastatin 20 mg tablet RxNorm: 135893 1 Tablet(s) Ora l QD Needs updated fasting labs 09/20/2019 12/19/2019 Active Needs updated fa sting labs before 90 day refill Flomax 0.4 mg capsule RxNorm: 976399 TAKE TWO CAPSULES BY MOUTH EVERY EVENING 08/03/2019 No Stop Date Active gabapentin 400 mg capsule RxNorm: 547814 TAKE ONE CAPSU LE BY MOUTH EVERY EVENING 08/02/2019 No Stop Date Active simvastatin 20 mg tablet RxNorm: 515777 1 Tablet(s) Ora l QD Needs updated fasting labs 07/21/2019 08/19/2019 Inactive Needs updated fa sting labs before 90 day refill simvastatin 20 mg tablet RxNorm: 343377 1 Tablet(s) Ora l QD Needs updated fasting labs 06/23/2019 07/20/2019 Inactive Needs updated fa sting labs before 90 day refill Flomax 0.4 mg capsule RxNorm: 154573 1 Capsule(s) Oral QD 05/13/2019 10/19/2019 Inactive Flomax 0.4 mg capsule RxNorm: 189400 TAKE TWO CAPSULES BY MOUTH EVERY EVENING 03/19/2019 05/12/2019 Inactive Augmentin 500 mg-125 mg tablet RxNorm: 234343 1 Tablet(s) PO BID 03/03/2019 Inactive baclofen 10 mg tablet RxNorm: 040980 TAKE ONE TABLET BY MOUTH EVERY NIGHT AT BEDTIME FOR PAIN OR SPASMS 01/14/2019 05/12/2019 Inactive Flomax 0.4 mg capsule RxNorm: 162135 TAKE TWO CAPSULES BY MOUTH EVERY EVENING 01/12/2019 03/18/2019 Inactive gabapentin 400 mg capsule RxNorm: 230800 1 Capsule(s) PO QPM 201806/27/2019 Inactive baclofen 10 mg tablet RxNorm: 773314 1 Tablet(s) PO QHS for my n/spasm 12/15/2018 01/13/2019 Inactive simvastatin 20 mg tablet RxNorm: 021599 TAKE ONE TABLET BY MOUT H DAILY 12/11/2018 06/22/2019 Inactive OneTouch Ultra Blue Test Strip RxNorm: Use 1 rigoberto t strip three times daily to check blood sugar (Dx:E11.65) 12/07/2018 No Stop Date Active gabapentin 400 mg capsule RxNorm: 505271 TAKE ONE CAPSU LE BY MOUTH EVERY EVENING 12/04/2018 12/29/2018 Inactive baclofen 10 mg tablet RxNorm: 146641 1 Tablet(s) PO QHS for my n/spasm 11/19/2018 12/15/2018 Inactive Flomax 0.4 mg capsule RxNorm: 461694 2 Capsule(s) PO QPM 09/15/2018 0 12/13/2018 Inactive WOULD LIKE 90DS!!! gabapentin 400 mg capsule RxNorm: 326530 TAKE ONE CAPSU LE BY MOUTH EVERY EVENING 07/21/2018 10/18/2018 Inactive simvastatin 20 mg tablet RxNorm: 493902 1 Tablet(s) PO QD 06/15/2018 12/10/2018 Inactive Flomax 0.4 mg capsule RxNorm: 219774 TAKE TWO CAPSULES BY MOUTH EVERY EVENING 06/02/2018 09/15/2018 Inactive WOULD LIKE 90DS!!! Flomax 0.4 mg capsule RxNorm: 555536 2 Capsule(s) PO QPM 04/21/2018 1 07/20/2017 Inactive simvastatin 20 mg tablet RxNorm: 533862 1 Tablet(s) PO QD Take 1 tablet by mouth daily. Patient due for labwork before further refill. 04/06/20182017 Inactive simvastatin 20 mg tablet RxNorm: 251727 Tablet(s) TAKE ONE TABLET BY MOUTH DAILY 03/25/2018 06/15/2018 Inactive simvastatin 20 mg tablet RxNorm: 679240 Tablet(s) TAKE ONE TABLET BY MOUTH DAILY due for appt 12/29/2017 03/25/2018 Inactive simvastatin 20 mg tablet RxNorm: 757782 TAKE ONE TABLET BY MOUT H DAILY 09/03/2017 12/29/2017 Inactive simvastatin 20 mg tablet RxNorm: 295585 1 Tablet(s) PO QD 10/22/2016 11/18/2018 Inactive isosorbide mononitrate ER 60 mg tablet,extended release 24 h r RxNorm: 719074 1 Tablet(s) PO QD 10/22/2016 04/21/2017 Inactive isosorbide mononitrate ER 60 mg tablet,extended release 24 h r RxNorm: 832268 1 Tablet(s) PO QD 10/10/2016 10/21/2016 Inactive simvastatin 20 mg tablet RxNorm: 392929 1 Tablet(s) PO QD 10/10/2016 10/21/2016 Inactive gabapentin 400 mg capsule RxNorm: 632322 1 Capsule(s) PO QPM 201609/20/2016 Inactive Toujeo SoloStar 300 unit/mL (1.5 mL) subcutaneous insulin pe n RxNorm: 3063030 35 Unit(s) SQ QAM 07/23/2016 07/22/2016 Inactive Toujeo SoloStar 300 unit/mL (1.5 mL) subcutaneous insulin pe n RxNorm: 6636097 40 Unit(s) SQ QAM 09/01/2015 No Stop Date Active Symbicort 160 mcg-4.5 mcg/actuation HFA aerosol inhaler RxNo rm: 5772147 2 Puff(s) INH BID 08/31/2015 09/09/2015 Inactive prednisone 20 mg tablet RxNorm: 191014 1 Tablet(s) PO BID 08/29/2015 09/02/2015 Inactive albuterol sulfate 2.5 mg/3 mL (0.083 %) solution for n ebulization RxNorm: 458505 1 Unit(s) INH Q4H as needed 08/29/2015 10/09/2016 Inactive levothyroxine 75 mcg tablet RxNorm: 176173 1 Tablet(s) PO QD 201507/27/2015 Inactive levothyroxine 75 mcg tablet RxNorm: 899565 1 Tablet(s) PO QD 201511/18/2018 Inactive levothyroxine 75 mcg tablet RxNorm: 282595 1 Tablet(s) PO QD 201507/27/2015 Inactive lisinopril 20 mg-hydrochlorothiazide 25 mg tablet RxNorm: 19 7887 TAKE ONE TABLET BY MOUTH EVERY MORNING. REPLACES PLAIN LISINOPRIL 03/06/2015 04/21/2017 Inactive lisinopril 20 mg-hydrochlorothiazide 25 mg tablet RxNorm: 19 7887 TAKE ONE TABLET BY MOUTH EVERY MORNING. REPLACES PLAIN LISINOPRIL 09/08/2014 03/05/2015 Inactive allopurinol 100 mg tablet RxNorm: 759824 1 Tablet(s) PO BID 015 10/09/2016 Inactive [SAVINGS FOR NON-COVERED YULIA GS -- BIN:[id number], PCN: [id number], Group: [id number], ID# [id number], Questions: . THIS IS NOT INSURANCE.] levothyroxine 50 mcg tablet RxNorm: 860875 1 Tablet(s) PO QD 201407/26/2015 Inactive [AttnRPh: Saving apply/adjud icate RxGRP:SG20 RxBIN:[id number] RxPCN: ID#:[id number]] Zegerid 40 mg-1.1 gram capsule RxNorm: 934915 1 Capsule(s) PO QD 03/03/2014 Inactive [AttnRPh: Saving apply/adjud icate RxGRP:SG20 RxBIN:[id number] RxPCN:HT ID#:[id number]] ondansetron 8 mg disintegrating tablet RxNorm: 077836 1 Tablet(s) PO Q8H as needed for [...] 07/28/2013 Inactive gabapentin 400 mg capsule RxNorm: 011568 1 Capsule(s) PO QPM 201207/28/2013 Inactive gabapentin 400 mg capsule RxNorm: 981643 1 Capsule(s) PO QPM 201206/26/2013 Inactive lisinopril 20 mg-hydrochlorothiazide 25 mg tablet RxNorm: 82 3971 1 Tablet(s) PO QAM replaces plain lisinopril 04/28/2013 07/29/2013 Inactive gabapentin 400 mg capsule RxNorm: 247098 1 Capsule(s) PO QPM 201204/27/2013 Inactive gabapentin 400 mg capsule RxNorm: 364910 1 Capsule(s) PO QPM 201203/10/2013 Inactive gabapentin 400 mg capsule RxNorm: 454144 1 Capsule(s) PO QPM 201203/14/2013 Inactive Lantus Solostar 100 unit/mL (3 mL) Sub-Q Insulin Pen RxNorm: 032849 20 Unit(s) SQ QPM 03/11/2013 03/15/2013 Inactive Toujeo SoloStar 300 unit/mL (1.5 mL) subcutaneous insulin pe n RxNorm: 7653539 35 Unit(s) SQ QAM No Start Date Active omeprazole 20 mg capsule,delayed release RxNorm: 921060 1 Capsu le(s) PO QD No Start Date Active isosorbide mononitrate ER 60 mg tablet,extended release 24 h r RxNorm: 415657 1 Tablet(s) PO QD No Start Date Active Eliquis 5 mg tablet RxNorm: 0186154 1 Tablet(s) PO BID No Start Date Active metformin 500 mg tablet RxNorm: 041540 1 Tablet(s) PO BID No Start Da te Active levothyroxine 50 mcg tablet RxNorm: 004545 1 Tablet(s) PO QD No Start Date Active Norvasc 10 mg tablet RxNorm: 170579 1 Tablet(s) PO QHS No Start Date Active Toujeo SoloStar 300 unit/mL (1.5 mL) subcutaneous insulin pe n RxNorm: 2925964 30 Unit(s) SQ QAM No Start Date Active glimepiride 4 mg tablet RxNorm: 024397 1 Tablet(s) PO QHS No Start Date 07/26/2015 Inactive allopurinol 100 mg tablet RxNorm: 267938 1 Tablet(s) PO BID No Star t Date 08/10/2014 Inactive Lantus Solostar 100 unit/mL (3 mL) subcutaneous insulin pen RxNorm: 638558 30 Unit(s) SQ QD No Start Date 08/03/2014 Inactive Levemir FlexTouch 100 unit/mL (3 mL) subcutaneous insulin pe n RxNorm: 164607 25 Unit(s) SQ QAM No Start Date 07/23/2015 Inactive Lantus 100 unit/mL Sub-Q RxNorm: 167871 30 Unit(s) SQ QHS No Start Date 05/25/2013 Inactive Lantus Solostar 100 unit/mL (3 mL) Sub-Q Insulin Pen RxNorm: 060837 20 Unit(s) SQ QPM No Start Date 03/10/2013 Inactive OneTouch Ultra Blue Test Strip RxNorm: Use 1 rigoberto t strip three times daily to check blood sugar (Dx:E11.65) No Start Date 12/06/2018 Inactive Levemir FlexTouch 100 unit/mL (3 mL) subcutaneous insulin pe n RxNorm: 169197 30- 35 Unit(s) SQ QAM No Start Date 07/23/2015 Inactive Levemir Flexpen 100 unit/mL (3 mL) solution subcutaneo us insulin pen RxNorm: 694317 20-25 Unit(s) SQ QD No Start Date 07/28/2013 Inactive lisinopril 20 mg tablet RxNorm: 550718 1 Tablet(s) PO QD No Start D ate 10/11/2019 Inactive indomethacin ER 75 mg capsule,extended release RxNorm: 38580 2 1 Capsule(s) PO QAM No Start Date 04/27/2013 Inactive indomethacin ER 75 mg capsule,extended release RxNorm: 55377 2 1 Capsule(s) PO QD No Start Date 01/16/2015 Inactive Chlortab-4 oral RxNorm: 763323 oral No Start Date 10/11/2019 Inac tive Vitamin D3 5,000 unit tablet RxNorm: 323082 1 Tablet(s) PO QD No St art Date 08/03/2014 Inactive Levemir Flexpen 100 unit/mL (3 mL) solution subcutaneo us insulin Pen RxNorm: 012900 20 Unit(s) SQ QHS No Start Date 03/10/2013 Inactive Vytorin 10 mg-40 mg tablet RxNorm: 9767626 1/2 Tablet(s) PO QD No S tart Date 04/20/2018 Inactive oxymetazoline-menthol 0.05 % nasal spray RxNorm: 5601452 [place] N COTY No Start Date 10/11/2019 Inactive Patient states he ta kes every 10 hours Toujeo SoloStar 300 unit/mL (1.5 mL) subcutaneous insulin pe n RxNorm: 2791429 35 Unit(s) SQ QAM No Start Date 07/22/2016 Inactive Lantus Solostar 100 unit/mL (3 mL) subcutaneous insulin pen RxNorm: 870378 20 Unit(s) SQ QD No Start Date 08/03/2014 Inactive aspirin 81 mg tablet RxNorm: 308997 1 Tablet(s) PO QD No Start Date 0 08/03/2014 Inactive metformin 500 mg tablet RxNorm: 996953 1 Tablet(s) PO BID No Start Date 07/28/2013 Inactive glimepiride 4 mg tablet RxNorm: 200287 1 Tablet(s) PO BID No Start Date 01/16/2015 Inactive glimepiride 4 mg tablet RxNorm: 213775 1 Tablet(s) PO QD No Start D ate 08/03/2014 Inactive levothyroxine 25 mcg tablet RxNorm: 178135 1 Tablet(s) PO QD No Sta rt Date 08/10/2014 Inactive doxycycline oral RxNorm: 30570 oral No Start Date 05/12/2019 Inac tive aspirin 81 mg tablet RxNorm: 734378 1 Tablet(s) PO QD No Start Date 0 07/21/2018 Inactive isosorbide mononitrate ER 60 mg tablet,extended release 24 h r RxNorm: 478726 1 Tablet(s) PO BID No Start Date 01/16/2015 Inactive metformin 500 mg tablet RxNorm: 016065 1 Tablet(s) PO BID No Start Date 04/27/2013 Inactive Plavix 75 mg tablet RxNorm: 583444 1 Tablet(s) PO QD No Start Date Inactive glimepiride 4 mg tablet RxNorm: 217563 1 Tablet(s) PO QPM No Start Date 02/21/2019 Inactive Vytorin 10-40 10 mg-40 mg tablet RxNorm: 3793414 1 Tablet(s) PO QHS No Start Date 08/03/2014 Inactive indomethacin 50 mg capsule RxNorm: 700771 1 Capsule(s) PO QHS No St art Date 01/16/2015 Inactive glimepiride 4 mg tablet RxNorm: 772870 1 Tablet(s) PO BID No Start Date 07/28/2013 Inactive Levemir FlexTouch 100 unit/mL (3 mL) subcutaneous insulin pe n RxNorm: 162918 20 Unit(s) SQ QD No Start Date 04/30/2015 Inactive lisinopril 20 mg tablet RxNorm: 942214 1 Tablet(s) PO BID No Start Date 04/27/2013 Inactive Lantus Solostar SubQ RxNorm: Subcutaneous No Start Date 03/15/2013 I nactive Zantac 150 mg tablet RxNorm: 078696 1 Tablet(s) PO QHS No Start Date 10/11/2019 Inactive allopurinol 300 mg tablet RxNorm: 517003 1 Tablet(s) PO QD No Start Date 08/03/2014 Inactive Fish Oil 1,000 mg capsule RxNorm: 1 Capsule(s) PO QD No Start Date 02/21/2019 Inactive indomethacin 50 mg capsule RxNorm: 107039 1 Capsule(s) PO BID No St art Date 04/20/2018 Inactive levothyroxine 50 mcg tablet RxNorm: 221056 1 Tablet(s) PO QD No Sta rt Date 08/10/2014 Inactive glimepiride 4 mg tablet RxNorm: 689772 1 Tablet(s) PO BID No Start Date 03/15/2013 Inactive indomethacin 50 mg capsule RxNorm: 289812 1 Capsule(s) PO QHS No St art Date 04/27/2013 Inactive Medication Administered No Medication Administered data Immunizations Vaccine Codes Date Status Influenza CVX: 135 04/21/2018 Complete Influenza CVX: 135 04/22/2017 Complete Results Observation Observation Code Item Item Code Result Date S ervice Location [facility] 80154 Cholesterol 209 mg/dL 09/17/2016 Unkno wn [facility] 74631 Triglyceride 111 mg/dL 09/17/2016 Unkn own [facility] 26231 HDL CHOLESTEROL 50 mg/dL 09/17/2016 U nknown [facility] 20465 Chol/HDL Ratio 4.18 ratio 09/17/2016 U nknown [facility] 89327 NON-HDL Chol 159 mg/dL 09/17/2016 Unkn own [facility] 81026 LDL Cholesterol 137 mg/dL 09/17/2016 U nknown MEAN GLUC 4101767 Calc Mean Gluc 151 mg/dL 09/17/2016 Unkn own COMPREHENSIVE METABOLIC 02768 AST 23 U/L 2016 Unknown COMPREHENSIVE METABOLIC 99142 ALT 19 U/L 2016 Unknown COMPREHENSIVE METABOLIC 09841 BUN 15 mg/dL 2016 Unknown COMPREHENSIVE METABOLIC 63107 ALBUMIN 4.3 g/dL 2016 Unknown COMPREHENSIVE METABOLIC 10703 CHLORIDE 103 mmol/L 09/17 Unknown COMPREHENSIVE METABOLIC 19444 Bili Total 0.6 mg/dL 09/17 Unknown COMPREHENSIVE METABOLIC 63051 ALK PHOS 60 U/L 2016 Unknown COMPREHENSIVE METABOLIC 96036 SODIUM 140 mmol/L 09/17 Unknown COMPREHENSIVE METABOLIC 90144 CREATININE 1.03 mg/dL 09/04 Unknown COMPREHENSIVE METABOLIC 57139 CALCIUM 9.5 mg/dL 2016 Unknown COMPREHENSIVE METABOLIC 40081 POTASSIUM 3.9 mmol/L 09/17 Unknown COMPREHENSIVE METABOLIC 89580 Total Protein 6.9 g/dL Unknown COMPREHENSIVE METABOLIC 54622 Glucose 94 mg/dL 2016 Unknown COMPREHENSIVE METABOLIC 81764 Bicarbonate 28 mmol/L 09/04 Unknown COMPREHENSIVE METABOLIC 08214 AGAP 9 mmol/L 2016 Unknown GFR CALC 2177711 GFR Non Afr Amr >60 mL/min 09/17/2016 Un known GFR CALC 5585618 GFR Afr Amr >60 mL/min 09/17/2016 Unknow n THYROID STIMULATING HORMONE 04696 TSH 4.260 uIU/mL 09/17/2016 Unknown GLYCOSYLATED HEMOGLOBIN TEST 55681 Hgb A1c 77168-7 6.9 % 0 09/17/2016 Unknown FREE T4 75213 T4 Free 1.02 ng/dL 09/17/2016 Unknown COMPLETE BLOOD COUNT 2324832 WBC 8.6 10e9/L 07/26/19 16 Unknown COMPLETE BLOOD COUNT [id number] RBC 4.86 10e12/L 2015 Unknown COMPLETE BLOOD COUNT 2534672 HGB 14.6 g/dL 6 Unknown COMPLETE BLOOD COUNT 3832433 HCT DET 43.1 % 6 Unknown COMPLETE BLOOD COUNT 6755196 MCV 88.7 fL 6 Unknown COMPLETE BLOOD COUNT 4292856 MCH 30.0 pg 6 Unknown COMPLETE BLOOD COUNT 2588215 MCHC 33.9 g/dL 6 Unknown COMPLETE BLOOD COUNT 9128177 PLT 267 10e9/L 07/26/19 16 Unknown COMPLETE BLOOD COUNT 4759479 MPV 11.5 fL 6 Unknown COMPLETE BLOOD COUNT 6922407 SAM % 64.8 % 6 Unknown COMPLETE BLOOD COUNT 0980599 LY % 16.8 % 6 Unknown COMPLETE BLOOD COUNT 6640031 MON % 12.5 % 6 Unknown COMPLETE BLOOD COUNT 3060123 EOS % 5.6 % 6 Unknown COMPLETE BLOOD COUNT 8092227 BASO % 0.3 % 6 Unknown COMPLETE BLOOD COUNT 1388858 RDW 13.4 % 6 Unknown COMPLETE BLOOD COUNT 6968391 ABS SAM 5.57 10e9/L 016 Unknown COMPLETE BLOOD COUNT 9692650 ABS LYMPH 1.44 10e9/L 016 Unknown COMPLETE BLOOD COUNT [id number] ABS MONO 1.08 10e9/L 016 Unknown COMPLETE BLOOD COUNT [id number] ABS EOS 0.48 10e9/L 016 Unknown COMPLETE BLOOD COUNT [id number] ABS BASO 0.03 10e9/L 016 Unknown COMPLETE BLOOD COUNT [id number] RDW-SD 42.9 fL 6 Unknown PSA EQUIMOLAR MATT 02519 PSA EQ 0.78 NG/ML 6 Unknown THYROID STIMULATING HORMONE 66826 TSH 5.292 uIU/ML 07/26/2015 Unknown GLYCOSYLATED HEMOGLOBIN TEST 64884 A1C HPLC 73919-9 7.0 % 0 07/26/2015 Unknown GFR CALC 5023209 GFR AA >60 ML/MIN 07/26/2015 Unknown GFR CALC 4597150 GFR NON-AA >60 ML/MIN 07/26/2015 Unknown [facility] 58517 HDL TEST 64 MG/DL 07/26/2015 Unknown [facility] 56868 TRIG 58 MG/DL 07/26/2015 Unknown [facility] 09917 TEST LDL 49 MG/DL 07/26/2015 Unknown [facility] 85269 CHOL 125 MG/DL 07/26/2015 Unknown [facility] 71846 RCHOL/HDL 1.95 RATIO 07/26/2015 Unknow n [facility] 50912 NON-HDL CH 61 MG/DL 07/26/2015 Unknow n COMPREHENSIVE METABOLIC 15904 AST 25 U/L 2015 Unknown COMPREHENSIVE METABOLIC 26999 ALT 23 IU/L 2015 Unknown COMPREHENSIVE METABOLIC 92700 BUN 18 MG/DL 2015 Unknown COMPREHENSIVE METABOLIC 45834 ALBUMIN 4.6 GM/DL 2015 Unknown COMPREHENSIVE METABOLIC 01943 CHLORIDE 100 MMOL/L 07/26 Unknown COMPREHENSIVE METABOLIC 58475 BILI TOT 0.5 MG/DL 2015 Unknown COMPREHENSIVE METABOLIC 95757 ALK PHOS 49 U/L 2015 Unknown COMPREHENSIVE METABOLIC 26662 SODIUM 137 MMOL/L 07/26 Unknown COMPREHENSIVE METABOLIC 91871 CREATININE 1.06 MG/DL 07/08 Unknown COMPREHENSIVE METABOLIC 12313 CALCIUM 9.5 MG/DL 2015 Unknown COMPREHENSIVE METABOLIC 74839 POTASSIUM 4.5 MMOL/L 07/26 Unknown COMPREHENSIVE METABOLIC 37177 PROT TOT 6.5 GM/DL 2015 Unknown COMPREHENSIVE METABOLIC 33325 Glucose 109 MG/DL 2015 Unknown COMPREHENSIVE METABOLIC 77360 BICARB 29 MMOL/L 2015 Unknown COMPREHENSIVE METABOLIC 94789 ANION GAP 8 MEQ/L 2015 Unknown FREE T4 87819 FREE T4 1.11 NG/DL 07/26/2015 Unknown CULTURE & SENSITIVITY 99070 PROTEIN UR NEG 015 Unknown CULTURE & SENSITIVITY 50009 HEMGLBN UR TR 015 Unknown CULTURE & SENSITIVITY 89928 GLUCOSE UR NEG 015 Unknown CULTURE & SENSITIVITY 20262 KETONES UR NEG 015 Unknown CULTURE & SENSITIVITY 64948 PH U 6.5 01/25/20 15 Unknown CULTURE & SENSITIVITY 69083 SP GR U 1.013 01/25/20 15 Unknown CULTURE & SENSITIVITY 14985 BILRUBN UR NEG 015 Unknown CULTURE & SENSITIVITY 88817 LEUKO UR NEG 01/25/20 15 Unknown CULTURE & SENSITIVITY 99593 NITRITE UR NEG 015 Unknown MICR CUL? [id number] SP TO JOHANA? NO 01/24/2015 Unknown MICR CUL? 7702142 APPEAR UR NORMAL 01/24/2015 Unknown MICR CUL? 3576187 RBC/uL 2.2 01/24/2015 Unknown MICR CUL? 9412530 WBC/uL 2.8 01/24/2015 Unknown MICR CUL? 2762724 SQ EPI/uL 1.0 01/24/2015 Unknown MICR CUL? 3354425 HYALCST/uL 0.25 01/24/2015 Unknown MICR CUL? 8880656 WBC /HPF 1 01/24/2015 Unknown MICR CUL? 2738501 RBC /HPF 0 01/24/2015 Unknown GLYCOSYLATED HEMOGLOBIN TEST 62034 A1C HPLC 67643-7 6.6 % 0 01/17/2015 Unknown COMPLETE BLOOD COUNT 9975385 WBC 10.1 10e9/L 015 Unknown COMPLETE BLOOD COUNT [id number] RBC 4.60 10e12/L 2014 Unknown COMPLETE BLOOD COUNT 3592474 HGB 14.0 g/dL 5 Unknown COMPLETE BLOOD COUNT 5500809 HCT DET 39.9 % 5 Unknown COMPLETE BLOOD COUNT 6283103 MCV 86.7 fL 5 Unknown COMPLETE BLOOD COUNT 1269029 MCH 30.4 pg 5 Unknown COMPLETE BLOOD COUNT 3119257 MCHC 35.1 g/dL 5 Unknown COMPLETE BLOOD COUNT 8486351 PLT 252 10e9/L 01/18/20 15 Unknown COMPLETE BLOOD COUNT 6964130 MPV 11.4 fL 5 Unknown COMPLETE BLOOD COUNT 9586521 SAM % 72.9 % 5 Unknown COMPLETE BLOOD COUNT 3372840 LY % 13.6 % 5 Unknown COMPLETE BLOOD COUNT 6627272 MON % 10.2 % 5 Unknown COMPLETE BLOOD COUNT 1662902 EOS % 3.1 % 5 Unknown COMPLETE BLOOD COUNT 5256684 BASO % 0.2 % 5 Unknown COMPLETE BLOOD COUNT 7682017 RDW 13.6 % 5 Unknown COMPLETE BLOOD COUNT 3725447 ABS SAM 7.36 10e9/L 015 Unknown COMPLETE BLOOD COUNT 9583688 ABS LYMPH 1.37 10e9/L 015 Unknown COMPLETE BLOOD COUNT 8211494 ABS MONO 1.03 10e9/L 015 Unknown COMPLETE BLOOD COUNT 9447939 ABS EOS 0.31 10e9/L 015 Unknown COMPLETE BLOOD COUNT 5412264 ABS BASO 0.02 10e9/L 015 Unknown COMPLETE BLOOD COUNT 7752208 RDW-SD 42.4 fL 5 Unknown GFR CALC 7459401 GFR AA 51.0L ML/MIN 01/17/2015 Unknow n GFR CALC 5028418 GFR NON-AA 42.0L ML/MIN 01/17/2015 Unkno wn FREE T4 66302 FREE T4 1.30 NG/DL 01/17/2015 Unknown THYROID STIMULATING HORMONE 87276 TSH 4.029 uIU/ML 01/17/2015 Unknown COMPREHENSIVE METABOLIC 49322 AST 28 U/L 2014 Unknown COMPREHENSIVE METABOLIC 46918 ALT 25 IU/L 2014 Unknown COMPREHENSIVE METABOLIC 84263 BUN 21 MG/DL 2014 Unknown COMPREHENSIVE METABOLIC 40366 ALBUMIN 4.7 GM/DL 2014 Unknown COMPREHENSIVE METABOLIC 27007 CHLORIDE 102 MMOL/L 01/17 Unknown COMPREHENSIVE METABOLIC 37761 BILI TOT 0.6 MG/DL 2014 Unknown COMPREHENSIVE METABOLIC 41425 ALK PHOS 44 U/L 2014 Unknown COMPREHENSIVE METABOLIC 81907 SODIUM 137 MMOL/L 01/17 Unknown COMPREHENSIVE METABOLIC 80778 CREATININE 1.62 MG/DL 01/04 Unknown COMPREHENSIVE METABOLIC 79052 CALCIUM 9.7 MG/DL 2014 Unknown COMPREHENSIVE METABOLIC 39915 POTASSIUM 4.5 MMOL/L 01/17 Unknown COMPREHENSIVE METABOLIC 68158 PROT TOT 6.5 GM/DL 2014 Unknown COMPREHENSIVE METABOLIC 88446 Glucose 136 MG/DL 2014 Unknown COMPREHENSIVE METABOLIC 21649 BICARB 24 MMOL/L 2014 Unknown COMPREHENSIVE METABOLIC 19100 ANION GAP 11 MEQ/L 2014 Unknown VITAMIN B 12 10240 VIT B 12 482 PG/ML 01/17/2015 Unknow n URIC ACID 81062 URIC ACID 8.5 MG/DL 08/09/2014 Unknown COMPREHENSIVE METABOLIC 14167 AST 27 U/L 2014 Unknown COMPREHENSIVE METABOLIC 25194 ALT 26 IU/L 2014 Unknown COMPREHENSIVE METABOLIC 90076 BUN 17 MG/DL 2014 Unknown COMPREHENSIVE METABOLIC 96628 ALBUMIN 5.0 GM/DL 2014 Unknown COMPREHENSIVE METABOLIC 95893 CHLORIDE 101 MMOL/L 08/09 Unknown COMPREHENSIVE METABOLIC 10586 BILI TOT 0.7 MG/DL 2014 Unknown COMPREHENSIVE METABOLIC 75634 ALK PHOS 53 U/L 2014 Unknown COMPREHENSIVE METABOLIC 09811 SODIUM 136 MMOL/L 08/09 Unknown COMPREHENSIVE METABOLIC 22380 CREATININE 1.14 MG/DL 09/2014 Unknown COMPREHENSIVE METABOLIC 86853 CALCIUM 9.8 MG/DL 2014 Unknown COMPREHENSIVE METABOLIC 33106 POTASSIUM 4.1 MMOL/L 08/09 Unknown COMPREHENSIVE METABOLIC 48646 PROT TOT 7.5 GM/DL 2014 Unknown COMPREHENSIVE METABOLIC 02615 Glucose 110 MG/DL 2014 Unknown COMPREHENSIVE METABOLIC 81321 BICARB 30 MMOL/L 2014 Unknown COMPREHENSIVE METABOLIC 53808 ANION GAP 5 MEQ/L 2014 Unknown GFR CALC 3521649 GFR AA >60 ML/MIN 08/09/2014 Unknown GFR CALC 8508076 GFR NON-AA >60 ML/MIN 08/09/2014 Unknown FREE T4 66539 FREE T4 1.14 NG/DL 08/09/2014 Unknown GLYCOSYLATED HEMOGLOBIN TEST 01829 A1C HPLC 50831-3 6.8 % 0 08/09/2014 Unknown COMPLETE BLOOD COUNT 2923499 WBC 5.9 10e9/L 08/09/19 15 Unknown COMPLETE BLOOD COUNT 7982416 RBC 5.04 10e12/L 2014 Unknown COMPLETE BLOOD COUNT 9321112 HGB 15.2 g/dL 5 Unknown COMPLETE BLOOD COUNT 5621492 HCT DET 44.3 % 5 Unknown COMPLETE BLOOD COUNT 7595228 MCV 87.9 fL 5 Unknown COMPLETE BLOOD COUNT 1102062 MCH 30.2 pg 5 Unknown COMPLETE BLOOD COUNT 1039600 MCHC 34.3 g/dL 5 Unknown COMPLETE BLOOD COUNT 5471512 PLT 262 10e9/L 08/09/19 15 Unknown COMPLETE BLOOD COUNT [id number] MPV 10.9 fL 5 Unknown COMPLETE BLOOD COUNT [id number] SAM % 58.7 % 5 Unknown COMPLETE BLOOD COUNT [id number] LY % 21.5 % 5 Unknown COMPLETE BLOOD COUNT [id number] MON % 14.0 % 5 Unknown COMPLETE BLOOD COUNT [id number] EOS % 5.3 % 5 Unknown COMPLETE BLOOD COUNT [id number] BASO % 0.5 % 5 Unknown COMPLETE BLOOD COUNT [id number] RDW 13.1 % 5 Unknown COMPLETE BLOOD COUNT [id number] ABS SAM 3.46 10e9/L 015 Unknown COMPLETE BLOOD COUNT [id number] ABS LYMPH 1.27 10e9/L 015 Unknown COMPLETE BLOOD COUNT [id number] ABS MONO 0.83 10e9/L 015 Unknown COMPLETE BLOOD COUNT [id number] ABS EOS 0.31 10e9/L 015 Unknown COMPLETE BLOOD COUNT [id number] ABS BASO 0.03 10e9/L 015 Unknown COMPLETE BLOOD COUNT [id number] RDW-SD 41.2 fL 5 Unknown THYROID STIMULATING HORMONE [id number] TSH 5.395 uIU/ML 08/09/2014 Unknown LIPID GROUP [id number] HDL TEST 52 MG/DL 08/09/2014 Unknown LIPID GROUP [id number] TRIG 113 MG/DL 08/09/2014 Unknown LIPID GROUP [id number] TEST LDL 158 MG/DL 08/09/2014 Unknown LIPID GROUP 32601 CHOL 233 MG/DL 08/09/2014 Unknown LIPID GROUP 46491 RCHOL/HDL 4.48 RATIO 08/09/2014 Unknow n LIPID GROUP 73893 NON-HDL CH 181 MG/DL 08/09/2014 Unknow n COMPLETE BLOOD COUNT [id number] WBC 6.8 10e9/L 09/09/19 14 Unknown COMPLETE BLOOD COUNT [id number] RBC 5.18 10e12/L 2013 Unknown COMPLETE BLOOD COUNT [id number] HGB 15.2 g/dL 4 Unknown COMPLETE BLOOD COUNT [id number] HCT DET 44.7 % 4 Unknown COMPLETE BLOOD COUNT [id number] MCV 86.3 fL 4 Unknown COMPLETE BLOOD COUNT [id number] MCH 29.3 pg 4 Unknown COMPLETE BLOOD COUNT [id number] MCHC 34.0 g/dL 4 Unknown COMPLETE BLOOD COUNT [id number] PLT 236 10e9/L 09/09/19 14 Unknown COMPLETE BLOOD COUNT [id number] MPV 11.0 fL 4 Unknown COMPLETE BLOOD COUNT [id number] SAM % 58.2 % 4 Unknown COMPLETE BLOOD COUNT [id number] LY % 21.9 % 4 Unknown COMPLETE BLOOD COUNT [id number] MON % 12.5 % 4 Unknown COMPLETE BLOOD COUNT [id number] EOS % 7.3 % 4 Unknown COMPLETE BLOOD COUNT [id number] BASO % 0.1 % 4 Unknown COMPLETE BLOOD COUNT [id number] RDW 13.6 % 4 Unknown COMPLETE BLOOD COUNT [id number] ABS SAM 3.96 10e9/L 014 Unknown COMPLETE BLOOD COUNT [id number] ABS LYMPH 1.49 10e9/L 014 Unknown COMPLETE BLOOD COUNT [id number] ABS MONO 0.85 10e9/L 014 Unknown COMPLETE BLOOD COUNT [id number] ABS EOS 0.50 10e9/L 014 Unknown COMPLETE BLOOD COUNT [id number] ABS BASO 0.01 10e9/L 014 Unknown COMPLETE BLOOD COUNT [id number] RDW-SD 42.3 fL 4 Unknown COMPREHENSIVE METABOLIC 50686 AST 27 U/L 2013 Unknown COMPREHENSIVE METABOLIC 30357 ALT 30 IU/L 2013 Unknown COMPREHENSIVE METABOLIC 38641 BUN 16 MG/DL 2013 Unknown COMPREHENSIVE METABOLIC 25298 ALBUMIN 4.9 GM/DL 2013 Unknown COMPREHENSIVE METABOLIC 63719 CHLORIDE 99 MMOL/L 2013 Unknown COMPREHENSIVE METABOLIC 48995 BILI TOT 0.7 MG/DL 2013 Unknown COMPREHENSIVE METABOLIC 26192 ALK PHOS 53 U/L 2013 Unknown COMPREHENSIVE METABOLIC 49357 SODIUM 137 MMOL/L 09/08 Unknown COMPREHENSIVE METABOLIC 77956 CREATININE 1.01 MG/DL 11/2013 Unknown COMPREHENSIVE METABOLIC 89967 CALCIUM 10.0 MG/DL 09/08 Unknown COMPREHENSIVE METABOLIC 72868 POTASSIUM 4.4 MMOL/L 09/08 Unknown COMPREHENSIVE METABOLIC 07015 PROT TOT 7.1 GM/DL 2013 Unknown COMPREHENSIVE METABOLIC 48311 Glucose 148 MG/DL 2013 Unknown COMPREHENSIVE METABOLIC 38510 BICARB 30 MMOL/L 2013 Unknown COMPREHENSIVE METABOLIC 59344 ANION GAP 8 MEQ/L 2013 Unknown GFR CALC [id number] GFR AA >60 ML/MIN 09/08/2013 Unknown GFR CALC 0132597 GFR NON-AA >60 ML/MIN 09/08/2013 Unknown FREE T4 95698 FREE T4 1.08 NG/DL 09/08/2013 Unknown GLYCOSYLATED HEMOGLOBIN TEST 44026 A1C HPLC 26774-2 7.3 % 0 09/08/2013 Unknown THYROID STIMULATING HORMONE 00580 TSH 5.454 uIU/ML 09/08/2013 Unknown LIPID GROUP 66726 HDL TEST 59 MG/DL 09/08/2013 Unknown LIPID GROUP 92416 TRIG 92 MG/DL 09/08/2013 Unknown LIPID GROUP 20886 TEST LDL 83 MG/DL 09/08/2013 Unknown LIPID GROUP 52145 CHOL 160 MG/DL 09/08/2013 Unknown LIPID GROUP 75256 RCHOL/HDL 2.71 RATIO 09/08/2013 Unknow n VITAMIN B 12 FOLIC ACID 16831|41946 VIT B 12 467 PG/ML 12/2012 Unknown VITAMIN B 12 FOLIC ACID 59540|56391 FOLIC ACID 12.2 NG/ML Unknown VITAMIN B 12 FOLIC ACID 47518|46112 VIT B 12 467 PG/ML 12/2012 Unknown THYROID STIMULATING HORMONE 68662 TSH 4.557 uIU/ML 03/12/2013 Unknown HEMOGLOBIN A1C (GLYCOSYLATED) 8486078 A1C HPLC 27657-9 7.6 % 03/12/2013 Unknown VITAMIN D TOTAL (25 HYDROXY) 78561 VIT D TOTL 17 NG/ML 03/12/2013 Unknown FREE T4 11133 FREE T4 1.07 NG/DL 03/12/2013 Unknown URIC ACID 26953 URIC ACID 5.2 MG/DL 03/12/2013 Unknown Procedures Procedure Codes Date THER/PROPH/DIAG INJ SC/IM CPT-4: 79099 05/13/2019 TRIAMCINOLONE ACET INJ NOS CPT-4: J3301 05/13/2019 DEXAMETHASONE SODIUM PHOS CPT-4: J1100 05/13/2019 THER/PROPH/DIAG INJ SC/IM CPT-4: 51452 02/22/2019 TRIAMCINOLONE ACET INJ NOS CPT-4: J3301 02/22/2019 FLU VACC PRSV FREE INC ANTIG 65 AND OLDER CPT-4: 59158 04/21/2018 ADMIN INFLUENZA VIRUS VAC CPT-4: G0008 04/21/2018 PRESCRIP TRANSMIT VIA ERX SY CPT-4: G8553 04/21/2018 DESTRUCT PREMALG LESION (Cryosurgery) CPT-4: 76525 FLU VACC PRSV FREE INC ANTIG 65 AND OLDER CPT-4: 69363 04/22/2017 ADMIN INFLUENZA VIRUS VAC CPT-4: G0008 04/22/2017 PRESCRIP TRANSMIT VIA ERX SY CPT-4: G8553 10/10/2016 PRESCRIP TRANSMIT VIA ERX SY CPT-4: G8553 08/29/2015 ROUTINE VENIPUNCTURE CPT-4: 69301 07/26/2015 ASSAY OF FREE THYROXINE CPT-4: 36844 07/26/2015 ASSAY THYROID STIM HORMONE CPT-4: 37515 07/26/2015 COMPREHEN METABOLIC PANEL CPT-4: 66305 07/26/2015 COMPLETE CBC W/AUTO DIFF WBC CPT-4: 79995 07/26/2015 LIPID PANEL CPT-4: 63194 07/26/2015 ASSAY OF PSA TOTAL CPT-4: 11749 07/26/2015 A1C HPLC CPT-4: 10426 07/26/2015 ROUTINE VENIPUNCTURE CPT-4: 78065 01/17/2015 ASSAY OF FREE THYROXINE CPT-4: 16038 01/17/2015 ASSAY THYROID STIM HORMONE CPT-4: 20345 01/17/2015 COMPREHEN METABOLIC PANEL CPT-4: 84781 01/17/2015 COMPLETE CBC W/AUTO DIFF WBC CPT-4: 69020 01/17/2015 A1C HPLC CPT-4: 27016 01/17/2015 VITAMIN B-12 CPT-4: 34456 01/17/2015 PPPS, subseq visit CPT-4: G0439 08/04/2014 PRESCRIP TRANSMIT VIA ERX SY CPT-4: G8553 02/18/2014 FLUZONE, 5ML (Medicare) CPT-4: Q2038 07/22/2013 ADMIN INFLUENZA VIRUS VAC CPT-4: G0008 07/22/2013 PRESCRIP TRANSMIT VIA ERX SY CPT-4: G8553 04/28/2013 ROUTINE VENIPUNCTURE CPT-4: 17726 03/12/2013 VITAMIN D TOTAL (25 HYDROXY) CPT-4: 16676 03/12/2013 VITAMIN B 12 FOLIC ACID CPT-4: 32139|07175 03/12/2013 A1C GLYCOSYLATED HEMOGLOBIN TEST CPT-4: 02062 013 ASSAY OF BLOOD/URIC ACID CPT-4: 87570 03/12/2013 ASSAY OF FREE THYROXINE CPT-4: 40557 03/12/2013 ASSAY THYROID STIM HORMONE CPT-4: 62933 03/12/2013 CUR TOBACCO NON-USER CPT-4: G8457 03/11/2013 [...] 1: 156/70 Code: 8480-6 BMI: 35.0 Code: 19714-0 Heart Rate 1: 68 bpm Height: 5'10" Respiratory Rate: 20 bpm SpO2: 95% Tempera ture: 36.5 (C) / 97.7 (F) Weight: 244 lbs 04/21/2018 Blood Pressure 1: 124/80 Code: 8480-6 BMI: 34.4 Code: 07954-8 Heart Rate 1: 80 bpm Height: 5'10" Respiratory Rate: 20 bpm SpO2: 96% Tempera ture: 37.0 (C) / 98.6 (F) Weight: 240 lbs 01/06/2018 Blood Pressure 1: 138/82 Code: 8480-6 BMI: 33.9 Code: 90600-9 Heart Rate 1: 96 bpm Height: 5'10" Respiratory Rate: 24 bpm SpO2: 98% Tempera ture: 35.9 (C) / 96.6 (F) Weight: 236 lbs 10/22/2017 Blood Pressure 1: 144/70 Code: 8480-6 BMI: 34.7 Code: 64724-1 Heart Rate 1: 72 bpm Height: 5'10" Respiratory Rate: 20 bpm SpO2: 96% Tempera ture: 36.9 (C) / 98.4 (F) Weight: 242 lbs 04/22/2017 Blood Pressure 1: 146/82 Code: 8480-6 BMI: 32.9 Code: 09072-6 Heart Rate 1: 104 bpm Height: 5'10" Respiratory Rate: 20 bpm SpO2: 95% Tempera ture: 36.9 (C) / 98.5 (F) Weight: 229 lbs 10/10/2016 Blood Pressure 1: 124/64 Code: 8480-6 BMI: 32.9 Code: 28452-4 Heart Rate 1: 64 bpm Height: 5'10" [...] 1: 146/90 Code: 8480-6 BMI: 34.1 Code: 22050-1 Heart Rate 1: 80 bpm Height: 5'10" Respiratory Rate: 20 bpm Temperature: 36 .8 (C) / 98.2 (F) Weight: 238 lbs 01/17/2015 Blood Pressure 1: 116/60 Code: 8480-6 BMI: 32.7 Code: 22284-1 Heart Rate 1: 84 bpm Height: 5'10" Respiratory Rate: 20 bpm Temperature: 36 .7 (C) / 98.0 (F) Weight: 228 lbs 09/29/2014 Blood Pressure 1: 136/78 Code: 8480-6 BMI: 33.9 Code: 98275-8 Heart Rate 1: 80 bpm Height: 5'10" Respiratory Rate: 20 bpm Temperature: 36 .6 (C) / 97.9 (F) Weight: 236 lbs 08/04/2014 Blood Pressure 1: 132/70 Code: 8480-6 BMI: 32.9 Code: 06672-4 Heart Rate 1: 72 bpm Height: 5'10" Respiratory Rate: 20 bpm Temperature: 36 .7 (C) / 98.0 (F) Weight: 229 lbs 02/18/2014 Blood Pressure 1: 124/82 Code: 8480-6 Heart Rate 1: 82 bpm Respiratory Rate: 18 bpm Temperature: 36.4 (C) / 97.5 (F) Weight: 232 lbs 07/29/2013 Blood Pressure 1: 146/80 Code: 8480-6 BMI: 34.1 Code: 97993-6 Heart Rate 1: 64 bpm Height: 5'10" Respiratory Rate: 20 bpm Temperature: 36 .9 (C) / 98.5 (F) Weight: 238 lbs 05/26/2013 Blood Pressure 1: 142/90 Code: 8480-6 BMI: 34.0 Code: 75338-1 Heart Rate 1: 84 bpm Height: 5'10" Respiratory Rate: 20 bpm Temperature: 36 .7 (C) / 98.0 (F) Weight: 237 lbs 04/28/2013 Blood Pressure 1: 118/78 Code: 8480-6 BMI: 32.9 Code: 16274-6 Heart Rate 1: 74 bpm Height: 5'10" Respiratory Rate: 20 bpm Temperature: 36 .1 (C) / 97.0 (F) Weight: 229 lbs 03/11/2013 Blood Pressure 1: 146/80 Code: 8480-6 BMI: 31.5 Code: 21841-8 Heart Rate 1: 80 bpm Height: 6' [...] care Encounters Encounter Performer Location Codes Date ([id number]) OFFICE/OUTPATIENT VISIT EST Diagnosis: Chronic obstructive pulmonary disease, unspecified[ICD10: J44.9] Diagnosis: DM w/o complication type II, uncontrolled[ICD10: E11.65] Diagnosis: Edema[ICD10: R60.9] Xiomara BETTENCOURT [place] CPT-4: 07953 10/20/2019 ([id number]) OFFICE/OUTPATIENT VISIT EST Diagnosis: Other dyspnea and respiratory abnormality[ICD10: R06.09] Diagnosis: Obstructive sleep apnea[ICD10: G47.33] Diagnosis: Hypotension[ICD10: I95.9] Xiomara Bettencourt [facility] CPT -4: 20568 10/12/2019 ([id number]) OFFICE/OUTPATIENT VISIT EST Diagnosis: Upper respiratory infection[ICD10: J06.9] Pennie BETTENCOURT [place] CPT-4: 67606 06/02/2019 ([id number]) OFFICE/OUTPATIENT VISIT EST Diagnosis: Sinusitis[ICD10: J32.9] Diagnosis: Allergic rhinitis[ICD10: J30.9] Pennie BETTENCOURT DO [facility] CPT-4: 07585 05/13/2019 ([id number]) OFFICE/OUTPATIENT VISIT EST Diagnosis: Pneumonia[ICD10: J18.9] Pennie ROSENBAUM DO [facility] CPT-4: 35534 04/26/2019 ([id number]) OFFICE/OUTPATIENT VISIT EST Diagnosis: Acute sinusitis, unspecified[ICD10: J01.90] Pennie BETTENCOURT DO [facility] CPT-4: 46043 02/22/2019 ([id number]) OFFICE/OUTPATIENT VISIT EST Diagnosis: Cervicalgia[ICD10: M54.2] Xiomara MAGALLON [facility] CPT-4: 97784 11/25/2018 ([id number]) OFFICE/OUTPATIENT VISIT EST Diagnosis: Acute sinusitis, unspecified[ICD10: J01.90] Diagnosis: Myalgia, unspecified site[ICD10: M79.10] Diagnosis: Cervicalgia[ICD10: M54.2] Xiomara MAGALLON [facility] CPT-4: 49161 11/19/2018 ([id number]) OFFICE/OUTPATIENT VISIT EST Diagnosis: Low back pain[ICD10: M54.5] Diagnosis: Essential (primary) hypertension[ICD10: I10] Diagnosis: 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, 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] Diagnosis: Paroxysmal atrial fibrillation[ICD10: I48.0] Xiomara BETTENCOURT DO [facility] CPT-4: 81884 07/22/2018 ([id number]) OFFICE/OUTPATIENT VISIT EST Diagnosis: Type 2 diabetes mellitus with diabetic neuropathy, unspecified[ICD10: E11.40] Diagnosis: Hyperlipidemia, unspecified[ICD10: E78.5] Diagnosis: Essential (primary) hypertension[ICD10: I10] Diagnosis: Chronic kidney disease, stage 1[ICD10: N18.1] Diagnosis: Benign prostatic hyperplasia with lower urinary tract symptoms[ICD10: N40.1] Diagnosis: FLU VACCINE[ICD10: Z23] Xiomara Bettencourt XIOMARA Elvia ROSENBAUM [facility] CPT-4: 65188 04/21/2018 OFFICE/OUTPATIENT VISIT EST Diagnosis: Type 2 diabetes mellitus with hyperglycemia[ICD10: E11.65] Diagnosis: Essential (primary) hypertension[ICD10: I10] Diagnosis: Mixed hyperlipidemia[ICD10: E78.2] Diagnosis: Other fatigue[ICD10: R53.83] Pennie HANLINE DelphineEdvin [facility] CPT-4: 80824 01/06/2018 ([id number]) OFFICE/OUTPATIENT VISIT EST Diagnosis: Type 2 diabetes mellitus with diabetic neuropathy, unspecified[ICD10: E11.40] Diagnosis: Essential (primary) hypertension[ICD10: I10] Diagnosis: Pain in right thigh[ICD10: M79.651] Diagnosis: Pain in left leg[ICD10: M79.605] Diagnosis: Localized swelling, mass and lump, left lower limb[ICD10: R22.42] Diagnosis: OSTEOARTHRISIS MULTI SITES[ICD10: M19.90] Diagnosis: FLU VACCINE[ICD10: Z23] Xiomara Renonelson LARA DelphineEdvin [facility] CPT-4: 85891 04/22/2017 ([id number]) OFFICE/OUTPATIENT VISIT EST Diagnosis: Essential (primary) hypertension[ICD10: I10] Diagnosis: Type 2 diabetes mellitus with hyperglycemia[ICD10: E11.65] Diagnosis: Angina pectoris, unspecified[ICD10: I20.9] Xiomara LARA DelphineEdvin [facility] CPT-4: 62775 10/10/2016 ([id number]) OFFICE/OUTPATIENT VISIT EST Diagnosis: Cough[ICD10: R05] Diagnosis: Wheezing[ICD10: R06.2] Diagnosis: Chronic obstructive pulmonary disease, unspecified[ICD10: J44.9] Shannan Gan [facility] CPT-4: 37934 08/31/2015 OFFICE/OUTPATIENT VISIT EST Diagnosis: Acute bronchitis, unspecified[ICD10: J20.9] Diagnosis: Wheezing[ICD10: R06.2] Kelsie Gan RENOSTEPHANIE [facility] CPT-4: 85960 08/29/2015 ([id number]) OFFICE/OUTPATIENT VISIT EST Diagnosis: Type 2 diabetes mellitus with diabetic neuropathy, unspecified[ICD10: E11.40] Diagnosis: Hyperlipidemia, unspecified[ICD10: E78.5] Diagnosis: Essential (primary) hypertension[ICD10: I10] Diagnosis: Encounter for general adult medical examination without abnormal findings[ICD10: Z00.00] Xiomara BETTENCOURT [facility] CPT-4: 89930 07/26/2015 OFFICE/OUTPATIENT VISIT EST Diagnosis: Type 2 diabetes mellitus with hyperglycemia[ICD10: E11.65] Diagnosis: Unspecified osteoarthritis, unspecified site[ICD10: M19.90] Diagnosis: Other instability, right knee[ICD10: M25.361] Kelsie BETTENCOURT DO [facility] CPT-4: 30368 07/24/2015 ([id number]) OFFICE/OUTPATIENT VISIT EST Diagnosis: Pain in leg, unspecified[ICD10: M79.606] Diagnosis: Type 2 diabetes mellitus with diabetic neuropathy, unspecified[ICD10: E11.40] Xiomara BETTENCOURT [facility] CPT-4: 44089 05/01/2015 ([id number]) OFFICE/OUTPATIENT VISIT EST Diagnosis: MALAISE AND FATIGUE[ICD9: 780.79] Diagnosis: 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, 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] Diagnosis: CAD[ICD9: 414.00] Diagnosis: ANEMIA NOS[ICD9: 285.9] Xiomara ROSENBAUM [facility] CPT-4: 21772 01/17/2015 ([id number]) OFFICE/OUTPATIENT VISIT EST Diagnosis: Skin lesion[ICD9: 709.9] Xiomara GENAO [facility] CPT-4: 29872 09/29/2014 OFFICE/OUTPATIENT VISIT EST Diagnosis: GASTROENTERITIS[ICD9: 558.9] Diagnosis: GERD[ICD9: 530.81] Kelsie BETTENCOURT DO [facility] CPT-4: 52232 02/18/2014 ([id number]) OFFICE/OUTPATIENT VISIT EST Diagnosis: 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I, UNCONTROLLED[ICD9: 250.02] Xiomara BETTENCOURT [facility] CPT-4: 34545 07/29/2013 ([id number]) OFFICE/OUTPATIENT VISIT EST Diagnosis: FLU VACCINE[ICD9: V04.81] Xiomara MAGALLON [facility] CPT-4: 80003 07/22/2013 ([id number]) OFFICE/OUTPATIENT VISIT EST Diagnosis: 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I, UNCONTROLLED[ICD9: 250.02] Diagnosis: HYPERTENSION[ICD9: 401.9] Xiomara MAGALLON [facility] CPT-4: 55795 05/26/2013 ([id number]) OFFICE/OUTPATIENT VISIT EST Diagnosis: MONONEURITIS[ICD9: 355.9] Diagnosis: RESTLESS LEGS SYNDROME[ICD9: 333.94] Diagnosis: HYPERTENSION[ICD9: 401.9] Diagnosis: CAD[ICD9: 414.00] Diagnosis: Weakness[ICD9: 780.79] Xiomara Dolan [facility] CPT-4: 95973 04/28/2013 ([id number]) OFFICE/OUTPATIENT VISIT EST Diagnosis: 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[ICD9: 250.01] Diagnosis: MONONEURITIS[ICD9: 355.9] Diagnosis: HYPERLIPIDEMIA NEC/NOS[ICD9: 272.4] Diagnosis: CAD[ICD9: 414.00] Xiomara BETTENCOURT [facility] CPT-4: 14685 03/12/2013 OFFICE/OUTPATIENT VISIT NEW Diagnosis: CAD[ICD9: 414.00] Diagnosis: HYPERLIPIDEMIA NEC/NOS[ICD9: 272.4] Diagnosis: HYPERTENSION[ICD9: 401.9] Diagnosis: Neuropathy[ICD9: 355.9] Diagnosis: RESTLESS LEGS SYNDROME[ICD9: 333.94] Xiomara HAN GASPER Elvia BETTENCOURT [facility] CPT-4: 26723 03/11/2013 Plan of Care Planned Activity Notes [...] ICD-9 : 496 ICD-10 : J44.9 10/20/2019 Patient Education: furosemide- OptimizeRX Coupon [phone] [email or web address] Completed 10/20/2019 Visit Diagnosis Plan: Hypotension Discussion: [...] : G47.33 10/12/2019 Appointment: Xiomara Bettencourt WPtel: [address] [place], [place] [phone] TELEMEDICINE 10/12/2019 Appointment: Xiomara Bettencourt WPtel: [address] [place], [place] [phone] [place] RESCHEDULED 09/23/2019 Care Plan: COMPREHEN METABOLIC PANEL SERGEI NC : 01770-8 Pending 09/20/2019 Care Plan: LIPID PANEL LOINC : 01750-8 Pending 09/20/2019 Care Plan: A1C HPLC LOINC : 00238-5 Pending 09/20/2019 Care Plan: COMPLETE CBC W/AUTO DIFF WBC LOINC : 29263-4 Pending 09/20/2019 Visit Diagnosis Plan: Upper respiratory infection Disc ussion: discussed that most likely viral. push fluids and rest through the week. patient has left over levaquin at home (5 days worth). instructed patient to start taking if he gets worse later this week and to call us next week if no improvement. ICD-9 : 465.9 ICD-10 : J06.9 06/02/2019 Appointment: Pennie Pizarro [address] [place], [place] [phone] ACUTE ILLNESS 06/02/2019 Visit Diagnosis Plan: Allergic [...] ICD-10 : J30.9 05/13/2019 Appointment: Pennie Pizarro [address] [place], [place] [phone] ACUTE ILLNESS 05/13/2019 Appointment: Xiomara Bettencourt WPtel: [phone] [facility] US CANCELED 04/27/2019 Visit Diagnosis Plan: Pneumonia Discussion: will obtai n records from urgent care. instructed to finish out doxy. no rhonchi or crackles auscultated. symbicort sample given to patient with instructions to use bid. call office later this week with new or worsening symptoms. ICD-9 : 486 ICD-10 : J18.9 04/26/2019 Appointment: Pennie Pizarro [address] [place], [place] [phone] [place] FOLLOW UP 04/26/2019 Visit Diagnosis Plan: [...] ICD-10 : J01.90 02/22/2019 Appointment: Pennie Pizarro [address] [place] [address] ACUTE ILLNESS 02/22/2019 Patient Education: prednisone- OptimizeRX Coupon [phone] [email or web address] Completed 02/22/2019 Visit Diagnosis Plan: Cervicalgia Discussion: Check Ce rvical Spine X-ray Will likely need PT ICD-9 : 723.1 ICD-10 : M54.2 11/25/2018 Appointment: Xiomara Bettencourt WPtel: [phone] ACUTE ILLNESS 11/25/2018 Visit Plan: Saline [...] M79.10 11/19/2018 Appointment: Xiomara Bettencourt WPtel: [phone] ACUTE ILLNESS 11/19/2018 Patient Education: baclofen- OptimizeRX Coupon [id number] [id number] [email or web address]/[email or web address] Completed 11/19/2018 Visit Diagnosis Plan: Essential (primary) [...] E10.9 07/22/2018 Appointment: [facility]ten[facility] [phone] [facility] [facility] 07/22/2018 Visit Diagnosis Plan: Benign prostatic h yperplasia with lower urinary tract symptoms Discussion: Trial of flomax Call in 1 mo [facility] on how doing Follow [...] N18.1 04/21/2018 Appointment: Xiomara Bettencourt [facility]Ptel[facility] [phone] [facility] [facility] FOLLOW [facility] 04/21/2018 Patient Education: [...] ICD-10 : E11.65 01/06/2018 Appointment: Pennie Pizarro [address] [place] [address] MEDICATION REVIEW 01/06/2018 Patient Education: Patient Medication Summary Completed 01/06/2018 Appointment: Xiomara Bettencourt WPtel: [address] [place], [place] [phone] [place] NO SHOW 01/05/2018 Appointment: Xiomara Bettencourt WPtel: [address] [place], [place] [phone] [place] CANCELED 12/31/2017 Visit Diagnosis Plan: Actinic keratosis Discussion: Cr yotherapy as above but will see derm if lesions do not resolve ICD-9 : 702.0 ICD-10 : L57.0 10/22/2017 Appointment: Xiomara Bettencourt WPtel: [address] [place], [place] [phone] ACUTE ILLNESS 10/22/2017 Patient Education: Patient Medication [...] M19.90 04/22/2017 Appointment: Xiomara Bettencourt [facility]Ptel[facility] [phone] [facility] FO[facility] 04/22/2017 Patient Education: Patient Medication Summary Completed 04/22/2017 Patient Education: Patient Medication Summary Completed 04/16/2017 Care Plan: COMPREHEN METABOLIC PANEL SERGEI NC : 66796-3 Pending 04/16/2017 Care Plan: LIPID PANEL LOINC : 68572-6 Pending 04/16/2017 Care Plan: CBC Pending 04/16/2017 Care Plan: A1C HPLC LOINC : 51829-5 Pending 04/16/2017 Referral: Inocencio Goodson WPtel: [phone] [...] : E11.65 10/10/2016 Appointment: Xiomara Bettencourt WPtel: [address] [place], [place] [phone] US FOLLOW UP 10/10/2016 Patient Education: Patient Medication Summary Completed 10/10/2016 Patient Education: Patient Medication Summary Completed 09/16/2016 Care Plan: COMPREHEN METABOLIC PANEL SERGEI NC : 94327-5 Pending 09/16/2016 Care Plan: ASSAY THYROID STIM HORMONE Pen ding 09/16/2016 Care Plan: ASSAY OF FREE THYROXINE Pendin g 09/16/2016 Care Plan: LIPID PANEL LOINC : 93049-4 Pending 09/16/2016 Care Plan: CBC Pending 09/16/2016 Care Plan: A1C HPLC LOINC : 31943-4 Pending 09/16/2016 Visit Plan: CXR now to further evaluate symptoms Suspect viral since he has been on 2 rounds of antibiotics If chronic lung disease evident, 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 with instructions on use Continue oral prednisone, would like to avoid injection if possible considering his DM status and he is stable right now Continue albuterol PRN Will call with CXR results 08/31/2015 Appointment: Shannan Grimes [address] [place] [address] 08/31 confirmed- SP ACUTE ILLNESS 08/31/2015 Patient Education: Patient Medication Summary Completed 08/31/2015 Visit Plan: Albuterol INH via SVN every 4 hours Prednisone 20 mg PO BID Notify for worsening symptoms 08/29/2015 Appointment: Kelsie Grubbs WPtel: [address] [place], [place] [phone] ACUTE ILLNESS 08/29/2015 Patient Education: Patient Medication Summary Completed 08/29/2015 Appointment: Xiomara Bettencourt WPtel: [address] [place], [place] [phone] [place] LAB 07/26/2015 Patient Education: Patient Medication Summary Completed 07/26/2015 Visit Plan: Return in am for fasting lab s - CBC, CMP, TSH, Free T4, HgbA1C Change Levemir to Toujeo - Continue 35 Units q am - sample given Start physical Therapy for increased quadriceps strengthening and decreased pain in knees, bilaterally. 07/24/2015 Appointment: Kelsie Grubbs WPtel: [phone] [facility] 07/21 appt confirmed cn FOLLOW UP 07/24/19 Appointment: Kelsie Grubbs WPtel: [phone] [facility] FOLLOW UP 07/24/2015 Patient Education: Patient Medication [...] with insulin 05/01/2015 Appointment: Xiomara Bettencourt WPtel: [address] [place], [place] [phone] 04/28 confirmed~sl ACUTE ILLNESS 05/01/2015 Patient Education: Patient Medication Summary Completed 05/01/2015 Patient Education: Patient Medication Summary Completed 01/19/2015 Care Plan: URINALYSIS AUTO W/O SCOPE SERGEI NC : 15542-7 Pending 01/19/2015 Visit Plan: I have went through his medi cations in past and stopped meds but he adjusts his meds on his own and has restarted some Stop Amaryl Once again discussed not using indomethacin routinely due to taking plavix and aspirin daily and fdc use is dangerous Check CBC, CMP, TSH, free T4, B12 and HbA1C Patient has seen Cardiology recently but no cardiac cath done--had chemical stress test 01/17/2015 Appointment: Xiomara Bettencourt WPtel: [phone] [facility] US 01/16 vm cn ACUTE ILLNESS 01/17/2015 Patient Education: Patient Medication Summary Completed 01/17/2015 Visit Plan: See Dr. Garvin for removal 09/29/2014 Appointment: Xiomara Bettencourt WPtel: [address] [place] [address] ACUTE ILLNESS 09/29/2014 Referral: Colt Garvin WPtel: [address] [place] Referral Initiated 09/29/2014 Patient Education: Patient Medication Summary Completed 09/29/2014 Visit Plan: Check CBC, CMP, TSH, free T4 , HbA1C, Lipids Accuchecks daily alternating times Patient has been adjusting own meds and has not taken any cholesterol meds for sometime Will check into surgery on right knee at [facility] Check carotid dopplers 08/04/2014 Appointment: Xiomara Bettencourt WPtel: [address] [place] [address] Annual Well Visit 08/04/2014 Patient Education: Patient Medication Summary Completed 08/04/2014 Appointment: Kelsie Grubbs WPtel: [address] [place] [address] ACUTE ILLNESS 02/18/2014 Patient Education: Patient Medication Summary Completed 02/18/2014 Patient Education: [facility] - Saving AutoInj - 18+ - Dynamic Portal ID Completed 02/18/2014 Appointment: Xiomara Bettencourt WPtel: [address] [place], [place] [phone] 09/08/2013 Visit Plan: Check fasting lab in 1mo Con tinue Lantus and accuchecks at least BID 07/29/2013 Appointment: Xiomara Bettencourt WPtel: [address] [place], [place] [phone] FOLLOW UP 07/29/2013 Patient Education: Patient Medication Summary Completed 07/29/2013 Appointment: Xiomara Bettencourt WPtel: [address] [place], [place] [phone] [place] INJECTION 07/22/2013 Patient Education: Patient Medication Summary Completed 07/22/2013 Visit Plan: Pt has been self-adjusting m eds Stop metformin and amaryl Use Levemir 25u sc BID and call in 1wk with BS readings 05/26/2013 Appointment: Xiomara Bettencourt WPtel: [address] [place], [place] [phone] FOLLOW UP 05/26/2013 Patient Education: Patient Medication Summary Completed 05/26/2013 Visit Plan: DC Metformin Increase Lantus to 30u sc daily Change lisinopril to lisinopril HCT 20/25mg q AM Continue Gabapentin at current dose 04/28/2013 Appointment: Xiomara Bettencourt WPtel: [phone] [id number] FOLLOW UP 04/28/2013 Patient Education: Patient Medication Summary Completed 04/28/2013 Appointment: Xiomara Bettencourt WPtel: [address] [place], [place] [phone] LAB 03/12/2013 Patient Education: Patient Medication Summary Completed 03/12/2013 Visit Plan: Trial of neurontin 400mg q H S Obtain most recent lab results Change levemir to lantus per pt request Pt goes for sleep study tonite 03/11/2013 Appointment: Xiomara Bettencourt WPtel: [address] [place], [place] [phone] 02/01paperwork mailed 03/10 confirmed with spouse NEW PATIENT 11/2012 Patient Education: Patient Medication Summary Completed 03/11/2013 Instructions Comment . Saline nasal flushes prn. Tylenol/Motr in prn headache. Notify if persists/symptoms worsening. . 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 Check fasting [...]
--- OUTSIDE RECORDS SUMMARY | 2020-02-02 21:42 | XMS REPORT | CCD ---
Author Author Sheng Bettencourt D.O. Organization [facility] Address [address] [place] [address] Phone Care Team Providers Care Technical Sales Advisor Name Role Phone PP Unavailable CCM Unavailable Summary Purpose Interface Exchange Insurance Providers Payer name Policy type / Coverage type Covered libertarian ID Effective Begin Date Effective End Date WPS MEDICARE PART B [place] Medicare Part B [id number] 2018 Unknown [facility] Medicare Part B [id number] 2018 Un known Family history Mother Diagnosis Age At Onset Diabetes mellitus Type 2 Unknown Hypercholesterolemia Unknown Father Diagnosis Age At Onset No Family Disease Entered N/A Social History Social History Element Codes Description Effective Dates Marital status Unknown 03/11/2013 Number of children Unknown 4 03/11/2013 Employment Unknown Retired 03/11/[address]: 5154384 Former smoker 03/11/[address]: 083851 Currently drinks alc ohol Socially 03/11/2013 Has [...] Problems Condition Codes Effective Dates Condition Status Hypotension ICD-9: 458.9 ICD-10: I95.9 10/12/2019 Active [...] fibrillation ICD-9: 427.31 ICD-10: I48.0 07/22/2018 Active Type 2 diabetes mellitus with hyperglycemia ICD-9: 250 .02 ICD-10: E11.65 08/04/2014 Active Upper respiratory infection ICD-9: 465.9 ICD-10: [...] Start Date Stop Date Status Fill Instructions albuterol sulfate HFA 90 mcg/actuation aerosol inhaler RxNor m: 9719856 1-2 Puff(s) Inhalation as needed 10/12/2019 No Stop Date Active Zyrtec 10 mg tablet RxNorm: 5262325 1 Tablet(s) Oral QAM 10/12/2019 No Stop Date Active aspirin 81 mg tablet,delayed release RxNorm: 351923 1 Tablet(s) Oral QD 10/12/2019 No Stop Date Active Symbicort 160 mcg-4.5 mcg/actuation HFA aerosol inhaler RxNo rm: 6906056 2 Puff(s) Inhalation QD 10/12/2019 No Stop Date Active lisinopril 20 mg tablet RxNorm: 457674 1 Tablet(s) Oral QD 10/12/19 20 01/10/2020 Active simvastatin 20 mg tablet RxNorm: 890113 1 Tablet(s) Ora l QD Needs updated fasting labs 09/20/2019 12/19/2019 Active Needs updated fa sting labs before 90 day refill Flomax 0.4 mg capsule RxNorm: 009285 TAKE TWO CAPSULES BY MOUTH EVERY EVENING 08/03/2019 No Stop Date Active gabapentin 400 mg capsule RxNorm: 854426 TAKE ONE CAPSU LE BY MOUTH EVERY EVENING 08/02/2019 No Stop Date Active simvastatin 20 mg tablet RxNorm: 380195 1 Tablet(s) Ora l QD Needs updated fasting labs 07/21/2019 08/19/2019 Inactive Needs updated fa sting labs before 90 day refill simvastatin 20 mg tablet RxNorm: 390575 1 Tablet(s) Ora l QD Needs updated fasting labs 06/23/2019 07/20/2019 Inactive Needs updated fa sting labs before 90 day refill Flomax 0.4 mg capsule RxNorm: 316469 1 Capsule(s) Oral QD 9 No Stop Date Active Flomax 0.4 mg capsule RxNorm: 300180 TAKE TWO CAPSULES BY MOUTH EVERY EVENING 03/19/2019 05/12/2019 Inactive Augmentin 500 mg-125 mg tablet RxNorm: 495140 1 Tablet(s) PO BID 03/03/2019 Inactive baclofen 10 mg tablet RxNorm: 240022 TAKE ONE TABLET BY MOUTH EVERY NIGHT AT BEDTIME FOR PAIN OR SPASMS 01/14/2019 05/12/2019 Inactive Flomax 0.4 mg capsule RxNorm: 240369 TAKE TWO CAPSULES BY MOUTH EVERY EVENING 01/12/2019 03/18/2019 Inactive gabapentin 400 mg capsule RxNorm: 956769 1 Capsule(s) PO QPM 201806/27/2019 Inactive baclofen 10 mg tablet RxNorm: 869465 1 Tablet(s) PO QHS for my n/spasm 12/15/2018 01/13/2019 Inactive simvastatin 20 mg tablet RxNorm: 286246 TAKE ONE TABLET BY MOUT H DAILY 12/11/2018 06/22/2019 Inactive OneTouch Ultra Blue Test Strip RxNorm: Use 1 rigoberto t strip three times daily to check blood sugar (Dx:E11.65) 12/07/2018 No Stop Date Active gabapentin 400 mg capsule RxNorm: 543467 TAKE ONE CAPSU LE BY MOUTH EVERY EVENING 12/04/2018 12/29/2018 Inactive baclofen 10 mg tablet RxNorm: 353545 1 Tablet(s) PO QHS for my n/spasm 11/19/2018 12/15/2018 Inactive Flomax 0.4 mg capsule RxNorm: 113860 2 Capsule(s) PO QPM 09/15/2018 0 12/13/2018 Inactive WOULD LIKE 90DS!!! gabapentin 400 mg capsule RxNorm: 253649 TAKE ONE CAPSU LE BY MOUTH EVERY EVENING 07/21/2018 10/18/2018 Inactive simvastatin 20 mg tablet RxNorm: 778383 1 Tablet(s) PO QD 06/15/2018 12/10/2018 Inactive Flomax 0.4 mg capsule RxNorm: 238481 TAKE TWO CAPSULES BY MOUTH EVERY EVENING 06/02/2018 09/15/2018 Inactive WOULD LIKE 90DS!!! Flomax 0.4 mg capsule RxNorm: 765024 2 Capsule(s) PO QPM 04/21/2018 1 07/20/2017 Inactive simvastatin 20 mg tablet RxNorm: 766741 1 Tablet(s) PO QD Take 1 tablet by mouth daily. Patient due for labwork before further refill. 04/06/20182017 Inactive simvastatin 20 mg tablet RxNorm: 531462 Tablet(s) TAKE ONE TABLET BY MOUTH DAILY 03/25/2018 06/15/2018 Inactive simvastatin 20 mg tablet RxNorm: 755589 Tablet(s) TAKE ONE TABLET BY MOUTH DAILY due for appt 12/29/2017 03/25/2018 Inactive simvastatin 20 mg tablet RxNorm: 477480 TAKE ONE TABLET BY MOUT H DAILY 09/03/2017 12/29/2017 Inactive simvastatin 20 mg tablet RxNorm: 449260 1 Tablet(s) PO QD 10/22/2016 11/18/2018 Inactive isosorbide mononitrate ER 60 mg tablet,extended release 24 h r RxNorm: 226992 1 Tablet(s) PO QD 10/22/2016 04/21/2017 Inactive isosorbide mononitrate ER 60 mg tablet,extended release 24 h r RxNorm: 189628 1 Tablet(s) PO QD 10/10/2016 10/21/2016 Inactive simvastatin 20 mg tablet RxNorm: 304537 1 Tablet(s) PO QD 10/10/2016 10/21/2016 Inactive gabapentin 400 mg capsule RxNorm: 058814 1 Capsule(s) PO QPM 201609/20/2016 Inactive Toujeo SoloStar 300 unit/mL (1.5 mL) subcutaneous insulin pe n RxNorm: 6405471 35 Unit(s) SQ QAM 07/23/2016 07/22/2016 Inactive Toujeo SoloStar 300 unit/mL (1.5 mL) subcutaneous insulin pe n RxNorm: 7328600 40 Unit(s) SQ QAM 09/01/2015 No Stop Date Active Symbicort 160 mcg-4.5 mcg/actuation HFA aerosol inhaler RxNo rm: 2064352 2 Puff(s) INH BID 08/31/2015 09/09/2015 Inactive prednisone 20 mg tablet RxNorm: 032830 1 Tablet(s) PO BID 08/29/2015 09/02/2015 Inactive albuterol sulfate 2.5 mg/3 mL (0.083 %) solution for n ebulization RxNorm: 061636 1 Unit(s) INH Q4H as needed 08/29/2015 10/09/2016 Inactive levothyroxine 75 mcg tablet RxNorm: 454652 1 Tablet(s) PO QD 201507/27/2015 Inactive levothyroxine 75 mcg tablet RxNorm: 514061 1 Tablet(s) PO QD 201511/18/2018 Inactive levothyroxine 75 mcg tablet RxNorm: 220600 1 Tablet(s) PO QD 201507/27/2015 Inactive lisinopril 20 mg-hydrochlorothiazide 25 mg tablet RxNorm: 19 7887 TAKE ONE TABLET BY MOUTH EVERY MORNING. REPLACES PLAIN LISINOPRIL 03/06/2015 04/21/2017 Inactive lisinopril 20 mg-hydrochlorothiazide 25 mg tablet RxNorm: 19 7887 TAKE ONE TABLET BY MOUTH EVERY MORNING. REPLACES PLAIN LISINOPRIL 09/08/2014 03/05/2015 Inactive allopurinol 100 mg tablet RxNorm: 521462 1 Tablet(s) PO BID 015 10/09/2016 Inactive [SAVINGS FOR NON-COVERED YULIA -- BIN:[id number], PCN: [id number], Group: XXXXX, ID# [id number], Questions: . THIS IS NOT INSURANCE.] levothyroxine 50 mcg tablet RxNorm: 472355 1 Tablet(s) PO QD 201407/26/2015 Inactive [AttnRPh: Saving apply/adjud icate RxGRP:SG20 RxBIN:[id number] RxPCN:HT ID#:[id number]] Zegerid 40 mg-1.1 gram capsule RxNorm: 902797 1 Capsule(s) PO QD 03/03/2014 Inactive [AttnRPh: Saving apply/adjud icate RxGRP:SG20 RxBIN:[id number] RxPCN:HT ID#:[id number]] ondansetron 8 mg disintegrating tablet RxNorm: 405261 1 Tablet(s) PO Q8H as needed for [...] 07/28/2013 Inactive gabapentin 400 mg capsule RxNorm: 415091 1 Capsule(s) PO QPM 201207/28/2013 Inactive gabapentin 400 mg capsule RxNorm: 934060 1 Capsule(s) PO QPM 201206/26/2013 Inactive lisinopril 20 mg-hydrochlorothiazide 25 mg tablet RxNorm: 82 3971 1 Tablet(s) PO QAM replaces plain lisinopril 04/28/2013 07/29/2013 Inactive gabapentin 400 mg capsule RxNorm: 321001 1 Capsule(s) PO QPM 201204/27/2013 Inactive gabapentin 400 mg capsule RxNorm: 388111 1 Capsule(s) PO QPM 201203/10/2013 Inactive gabapentin 400 mg capsule RxNorm: 367724 1 Capsule(s) PO QPM 201203/14/2013 Inactive Lantus Solostar 100 unit/mL (3 mL) Sub-Q Insulin Pen RxNorm: 191096 20 Unit(s) SQ QPM 03/11/2013 03/15/2013 Inactive Toujeo SoloStar 300 unit/mL (1.5 mL) subcutaneous insulin pe n RxNorm: 6951791 35 Unit(s) SQ QAM No Start Date Active omeprazole 20 mg capsule,delayed release RxNorm: 358529 1 Capsu le(s) PO QD No Start Date Active isosorbide mononitrate ER 60 mg tablet,extended release 24 h r RxNorm: 312998 1 Tablet(s) PO QD No Start Date Active Eliquis 5 mg tablet RxNorm: 6903378 1 Tablet(s) PO BID No Start Date Active metformin 500 mg tablet RxNorm: 308372 1 Tablet(s) PO BID No Start Da te Active levothyroxine 50 mcg tablet RxNorm: 176662 1 Tablet(s) PO QD No Start Date Active Norvasc 10 mg tablet RxNorm: 493263 1 Tablet(s) PO QHS No Start Date Active Toujeo SoloStar 300 unit/mL (1.5 mL) subcutaneous insulin pe n RxNorm: 7034339 30 Unit(s) SQ QAM No Start Date Active glimepiride 4 mg tablet RxNorm: 451302 1 Tablet(s) PO QHS No Start Date 07/26/2015 Inactive allopurinol 100 mg tablet RxNorm: 720514 1 Tablet(s) PO BID No Star t Date 08/10/2014 Inactive Lantus Solostar 100 unit/mL (3 mL) subcutaneous insulin pen RxNorm: 983717 30 Unit(s) SQ QD No Start Date 08/03/2014 Inactive Levemir FlexTouch 100 unit/mL (3 mL) subcutaneous insulin pe n RxNorm: 829684 25 Unit(s) SQ QAM No Start Date 07/23/2015 Inactive Lantus 100 unit/mL Sub-Q RxNorm: 055999 30 Unit(s) SQ QHS No Start Date 05/25/2013 Inactive Lantus Solostar 100 unit/mL (3 mL) Sub-Q Insulin Pen RxNorm: 070186 20 Unit(s) SQ QPM No Start Date 03/10/2013 Inactive OneTouch Ultra Blue Test Strip RxNorm: Use 1 rigoberto t strip three times daily to check blood sugar (Dx:E11.65) No Start Date 12/06/2018 Inactive Levemir FlexTouch 100 unit/mL (3 mL) subcutaneous insulin pe n RxNorm: 831479 30- 35 Unit(s) SQ QAM No Start Date 07/23/2015 Inactive Levemir Flexpen 100 unit/mL (3 mL) solution subcutaneo us insulin pen RxNorm: 818378 20-25 Unit(s) SQ QD No Start Date 07/28/2013 Inactive lisinopril 20 mg tablet RxNorm: 716445 1 Tablet(s) PO QD No Start D ate 10/11/2019 Inactive indomethacin ER 75 mg capsule,extended release RxNorm: 45655 2 1 Capsule(s) PO QAM No Start Date 04/27/2013 Inactive indomethacin ER 75 mg capsule,extended release RxNorm: 09081 2 1 Capsule(s) PO QD No Start Date 01/16/2015 Inactive Chlortab-4 oral RxNorm: 184976 oral No Start Date 10/11/2019 Inac tive Vitamin D3 5,000 unit tablet RxNorm: 845197 1 Tablet(s) PO QD No St art Date 08/03/2014 Inactive Levemir Flexpen 100 unit/mL (3 mL) solution subcutaneo us insulin Pen RxNorm: 640295 20 Unit(s) SQ QHS No Start Date 03/10/2013 Inactive Vytorin 10 mg-40 mg tablet RxNorm: 7982701 1/2 Tablet(s) PO QD No S tart Date 04/20/2018 Inactive oxymetazoline-menthol 0.05 % nasal spray RxNorm: 6233503 [place] COTY No Start Date 10/11/2019 Inactive Patient states he ta kes every 10 hours Toujeo SoloStar 300 unit/mL (1.5 mL) subcutaneous insulin pe n RxNorm: 9151496 35 Unit(s) SQ QAM No Start Date 07/22/2016 Inactive Lantus Solostar 100 unit/mL (3 mL) subcutaneous insulin pen RxNorm: 907169 20 Unit(s) SQ QD No Start Date 08/03/2014 Inactive aspirin 81 mg tablet RxNorm: 999723 1 Tablet(s) PO QD No Start Date 0 08/03/2014 Inactive metformin 500 mg tablet RxNorm: 435523 1 Tablet(s) PO BID No Start Date 07/28/2013 Inactive glimepiride 4 mg tablet RxNorm: 892727 1 Tablet(s) PO BID No Start Date 01/16/2015 Inactive glimepiride 4 mg tablet RxNorm: 735715 1 Tablet(s) PO QD No Start D ate 08/03/2014 Inactive levothyroxine 25 mcg tablet RxNorm: 289052 1 Tablet(s) PO QD No Sta rt Date 08/10/2014 Inactive doxycycline oral RxNorm: 94814 oral No Start Date 05/12/2019 Inac tive aspirin 81 mg tablet RxNorm: 321443 1 Tablet(s) PO QD No Start Date 0 07/21/2018 Inactive isosorbide mononitrate ER 60 mg tablet,extended release 24 h r RxNorm: 148238 1 Tablet(s) PO BID No Start Date 01/16/2015 Inactive metformin 500 mg tablet RxNorm: 081794 1 Tablet(s) PO BID No Start Date 04/27/2013 Inactive Plavix 75 mg tablet RxNorm: 764083 1 Tablet(s) PO QD No Start Date Inactive glimepiride 4 mg tablet RxNorm: 161212 1 Tablet(s) PO QPM No Start Date 02/21/2019 Inactive Vytorin 10-40 10 mg-40 mg tablet RxNorm: 3414018 1 Tablet(s) PO QHS No Start Date 08/03/2014 Inactive indomethacin 50 mg capsule RxNorm: 310431 1 Capsule(s) PO QHS No St art Date 01/16/2015 Inactive glimepiride 4 mg tablet RxNorm: 603851 1 Tablet(s) PO BID No Start Date 07/28/2013 Inactive Levemir FlexTouch 100 unit/mL (3 mL) subcutaneous insulin pe n RxNorm: 485482 20 Unit(s) SQ QD No Start Date 04/30/2015 Inactive lisinopril 20 mg tablet RxNorm: 661903 1 Tablet(s) PO BID No Start Date 04/27/2013 Inactive Lantus Solostar SubQ RxNorm: Subcutaneous No Start Date 03/15/2013 I nactive Zantac 150 mg tablet RxNorm: 430173 1 Tablet(s) PO QHS No Start Date 10/11/2019 Inactive allopurinol 300 mg tablet RxNorm: 088456 1 Tablet(s) PO QD No Start Date 08/03/2014 Inactive Fish Oil 1,000 mg capsule RxNorm: 1 Capsule(s) PO QD No Start Date 02/21/2019 Inactive indomethacin 50 mg capsule RxNorm: 622583 1 Capsule(s) PO BID No St art Date 04/20/2018 Inactive levothyroxine 50 mcg tablet RxNorm: 679946 1 Tablet(s) PO QD No Sta rt Date 08/10/2014 Inactive glimepiride 4 mg tablet RxNorm: 164843 1 Tablet(s) PO BID No Start Date 03/15/2013 Inactive indomethacin 50 mg capsule RxNorm: 551454 1 Capsule(s) PO QHS No St art Date 04/27/2013 Inactive Medication Administered No Medication Administered data Immunizations Vaccine Codes Date Status Influenza CVX: 135 04/21/2018 Complete Influenza CVX: 135 04/22/2017 Complete Results Observation Observation Code Item Item Code Result Date S ervice Location [facility] 09758 Cholesterol 209 mg/dL 09/17/2016 Unkno wn [facility] 08457 Triglyceride 111 mg/dL 09/17/2016 Unkn own [facility] 87079 HDL CHOLESTEROL 50 mg/dL 09/17/2016 U nknown [facility] 66400 Chol/HDL Ratio 4.18 ratio 09/17/2016 U nknown [facility] 24176 NON-HDL Chol 159 mg/dL 09/17/2016 Unkn own [facility] 18678 LDL Cholesterol 137 mg/dL 09/17/2016 U nknown MEAN GLUC 2524078 Calc Mean Gluc 151 mg/dL 09/17/2016 Unkn own COMPREHENSIVE METABOLIC 20411 AST 23 U/L 2016 Unknown COMPREHENSIVE METABOLIC 37108 ALT 19 U/L 2016 Unknown [facility] 66064 BUN 15 mg/dL 2016 Unknown [facility]PREHENS[facility] MET[facility]OL[facility] 35832 ALBUMIN 4.3 g/dL 2016 Unknown COMPREHENSIVE METABOLIC 63747 CHLORIDE 103 mmol/L 09/17 Unknown COMPREHENSIVE METABOLIC 63013 Bili Total 0.6 mg/dL 09/17 Unknown COMPREHENSIVE METABOLIC 08414 ALK PHOS 60 U/L 2016 Unknown COMPREHENSIVE METABOLIC 53983 SODIUM 140 mmol/L 09/17 Unknown COMPREHENSIVE METABOLIC 03249 CREATININE 1.03 mg/dL 09/04 Unknown COMPREHENSIVE METABOLIC 66912 CALCIUM 9.5 mg/dL 2016 Unknown COMPREHENSIVE METABOLIC 35202 POTASSIUM 3.9 mmol/L 09/17 Unknown COMPREHENSIVE METABOLIC 57247 Total Protein 6.9 g/dL Unknown COMPREHENSIVE METABOLIC 00947 Glucose 94 mg/dL 2016 Unknown COMPREHENSIVE METABOLIC 90912 Bicarbonate 28 mmol/L 09/04 Unknown COMPREHENSIVE METABOLIC 83111 AGAP 9 mmol/L 2016 Unknown GFR CALC 2755252 GFR Non Afr Amr >60 mL/min 09/17/2016 Un known GFR CALC 1824322 GFR Afr Amr >60 mL/min 09/17/2016 Unknow n THYROID STIMULATING HORMONE 87816 TSH 4.260 uIU/mL 09/17/2016 Unknown GLYCOSYLATED HEMOGLOBIN TEST 94966 Hgb A1c 52979-0 6.9 % 0 09/17/2016 Unknown FREE T4 52366 T4 Free 1.02 ng/dL 09/17/2016 Unknown COMPLETE BLOOD COUNT 2748392 WBC 8.6 10e9/L 07/26/19 16 Unknown COMPLETE BLOOD COUNT [id number] RBC 4.86 10e12/L 2015 Unknown COMPLETE BLOOD COUNT 6350524 HGB 14.6 g/dL 6 Unknown COMPLETE BLOOD COUNT 9072187 HCT DET 43.1 % 6 Unknown COMPLETE BLOOD COUNT [id number] MCV 88.7 fL 6 Unknown COMPLETE BLOOD COUNT 2519424 MCH 30.0 pg 6 Unknown COMPLETE BLOOD COUNT [id number] MCHC 33.9 g/dL 6 Unknown COMPLETE BLOOD COUNT [id number] PLT 267 10e9/L 07/26/19 16 Unknown COMPLETE BLOOD COUNT [id number] MPV 11.5 fL 6 Unknown COMPLETE BLOOD COUNT [id number] ASM % 64.8 % 6 Unknown COMPLETE BLOOD COUNT 7909441 LY % 16.8 % 6 Unknown COMPLETE BLOOD COUNT [id number] MON % 12.5 % 6 Unknown COMPLETE BLOOD COUNT [id number] EOS % 5.6 % 6 Unknown COMPLETE BLOOD COUNT 3574426 BASO % 0.3 % 6 Unknown COMPLETE BLOOD COUNT 4364174 RDW 13.4 % 6 Unknown COMPLETE BLOOD COUNT [id number] ABS SAM 5.57 10e9/L 016 Unknown COMPLETE BLOOD COUNT 4042842 ABS LYMPH 1.44 10e9/L 016 Unknown COMPLETE BLOOD COUNT [id number] ABS MONO 1.08 10e9/L 016 Unknown COMPLETE BLOOD COUNT [id number] ABS EOS 0.48 10e9/L 016 Unknown COMPLETE BLOOD COUNT [id number] ABS BASO 0.03 10e9/L 016 Unknown COMPLETE BLOOD COUNT 3151974 RDW-SD 42.9 fL 6 Unknown PSA EQUIMOLAR MATT 17297 PSA EQ 0.78 NG/ML 6 Unknown THYROID STIMULATING HORMONE 37152 TSH 5.292 uIU/ML 07/26/2015 Unknown GLYCOSYLATED HEMOGLOBIN TEST 41327 A1C HPLC 42540-8 7.0 % 0 07/26/2015 Unknown GFR CALC 4297254 GFR AA >60 ML/MIN 07/26/2015 Unknown GFR CALC 6974838 GFR NON-AA >60 ML/MIN 07/26/2015 Unknown [facility] 60896 HDL TEST 64 MG/DL 07/26/2015 Unknown [facility] 14295 TRIG 58 MG/DL 07/26/2015 Unknown [facility] 55442 TEST LDL 49 MG/DL 07/26/2015 Unknown [facility] 54389 CHOL 125 MG/DL 07/26/2015 Unknown [facility] 19888 RCHOL/HDL 1.95 RATIO 07/26/2015 Unknow n [facility] 30180 NON-HDL CH 61 MG/DL 07/26/2015 Unknow n COMPREHENSIVE METABOLIC 59679 AST 25 U/L 2015 Unknown COMPREHENSIVE METABOLIC 41710 ALT 23 IU/L 2015 Unknown COMPREHENSIVE METABOLIC 30361 BUN 18 MG/DL 2015 Unknown COMPREHENSIVE METABOLIC 35517 ALBUMIN 4.6 GM/DL 2015 Unknown COMPREHENSIVE METABOLIC 72505 CHLORIDE 100 MMOL/L 07/26 Unknown COMPREHENSIVE METABOLIC 95187 BILI TOT 0.5 MG/DL 2015 Unknown COMPREHENSIVE METABOLIC 37005 ALK PHOS 49 U/L 2015 Unknown COMPREHENSIVE METABOLIC 11466 SODIUM 137 MMOL/L 07/26 Unknown COMPREHENSIVE METABOLIC 70550 CREATININE 1.06 MG/DL 07/08 Unknown COMPREHENSIVE METABOLIC 54804 CALCIUM 9.5 MG/DL 2015 Unknown COMPREHENSIVE METABOLIC 91540 POTASSIUM 4.5 MMOL/L 07/26 Unknown COMPREHENSIVE METABOLIC 40882 PROT TOT 6.5 GM/DL 2015 Unknown COMPREHENSIVE METABOLIC 00617 Glucose 109 MG/DL 2015 Unknown COMPREHENSIVE METABOLIC 85684 BICARB 29 MMOL/L 2015 Unknown COMPREHENSIVE METABOLIC 22032 ANION GAP 8 MEQ/L 2015 Unknown FREE T4 90054 FREE T4 1.11 NG/DL 07/26/2015 Unknown CULTURE & SENSITIVITY 83362 PROTEIN UR NEG 015 Unknown CULTURE & SENSITIVITY 74543 HEMGLBN UR TR 015 Unknown CULTURE & SENSITIVITY 32777 GLUCOSE UR NEG 015 Unknown CULTURE & SENSITIVITY 31275 KETONES UR NEG 015 Unknown CULTURE & SENSITIVITY 90621 PH U 6.5 01/25/20 15 Unknown CULTURE & SENSITIVITY 07274 SP GR U 1.013 01/25/20 15 Unknown CULTURE & SENSITIVITY 82880 BILRUBN UR NEG 015 Unknown CULTURE & SENSITIVITY 40415 LEUKO UR NEG 01/25/20 15 Unknown CULTURE & SENSITIVITY 48408 NITRITE UR NEG 015 Unknown MICR CUL? [id number] SP TO JOHANA? NO 01/24/2015 Unknown MICR CUL? [id number] APPEAR UR NORMAL 01/24/2015 Unknown MICR CUL? 2601999 RBC/uL 2.2 01/24/2015 Unknown MICR CUL? 9566411 WBC/uL 2.8 01/24/2015 Unknown MICR CUL? 4146922 SQ EPI/uL 1.0 01/24/2015 Unknown MICR CUL? 4473944 HYALCST/uL 0.25 01/24/2015 Unknown MICR CUL? 8573603 WBC /HPF 1 01/24/2015 Unknown MICR CUL? 5299271 RBC /HPF 0 01/24/2015 Unknown GLYCOSYLATED HEMOGLOBIN TEST 64094 A1C HPLC 64756-9 6.6 % 0 01/17/2015 Unknown COMPLETE BLOOD COUNT 3071310 WBC 10.1 10e9/L 015 Unknown COMPLETE BLOOD COUNT 8657017 RBC 4.60 10e12/L 2014 Unknown COMPLETE BLOOD COUNT 6617718 HGB 14.0 g/dL 5 Unknown COMPLETE BLOOD COUNT 3723665 HCT DET 39.9 % 5 Unknown COMPLETE BLOOD COUNT 8166050 MCV 86.7 fL 5 Unknown COMPLETE BLOOD COUNT 8234573 MCH 30.4 pg 5 Unknown COMPLETE BLOOD COUNT 0112074 MCHC 35.1 g/dL 5 Unknown COMPLETE BLOOD COUNT 4715703 PLT 252 10e9/L 01/18/20 15 Unknown COMPLETE BLOOD COUNT 5385244 MPV 11.4 fL 5 Unknown COMPLETE BLOOD COUNT [id number] SAM % 72.9 % 5 Unknown COMPLETE BLOOD COUNT 9432744 LY % 13.6 % 5 Unknown COMPLETE BLOOD COUNT 0931076 MON % 10.2 % 5 Unknown COMPLETE BLOOD COUNT 9714955 EOS % 3.1 % 5 Unknown COMPLETE BLOOD COUNT 9007866 BASO % 0.2 % 5 Unknown COMPLETE BLOOD COUNT 4155344 RDW 13.6 % 5 Unknown COMPLETE BLOOD COUNT 3817927 ABS SAM 7.36 10e9/L 015 Unknown COMPLETE BLOOD COUNT 1050066 ABS LYMPH 1.37 10e9/L 015 Unknown COMPLETE BLOOD COUNT [id number] ABS MONO 1.03 10e9/L 015 Unknown COMPLETE BLOOD COUNT 8767083 ABS EOS 0.31 10e9/L 015 Unknown COMPLETE BLOOD COUNT [id number] ABS BASO 0.02 10e9/L 015 Unknown COMPLETE BLOOD COUNT 4272311 RDW-SD 42.4 fL 5 Unknown GFR CALC 0501663 GFR AA 51.0L ML/MIN 01/17/2015 Unknow n GFR CALC 0719841 GFR NON-AA 42.0L ML/MIN 01/17/2015 Unkno wn FREE T4 69510 FREE T4 1.30 NG/DL 01/17/2015 Unknown THYROID STIMULATING HORMONE 40493 TSH 4.029 uIU/ML 01/17/2015 Unknown COMPREHENSIVE METABOLIC 37789 AST 28 U/L 2014 Unknown COMPREHENSIVE METABOLIC 01691 ALT 25 IU/L 2014 Unknown COMPREHENSIVE METABOLIC 89190 BUN 21 MG/DL 2014 Unknown COMPREHENSIVE METABOLIC 25315 ALBUMIN 4.7 GM/DL 2014 Unknown COMPREHENSIVE METABOLIC 62273 CHLORIDE 102 MMOL/L 01/17 Unknown COMPREHENSIVE METABOLIC 47287 BILI TOT 0.6 MG/DL 2014 Unknown COMPREHENSIVE METABOLIC 25116 ALK PHOS 44 U/L 2014 Unknown COMPREHENSIVE METABOLIC 24680 SODIUM 137 MMOL/L 01/17 Unknown COMPREHENSIVE METABOLIC 31887 CREATININE 1.62 MG/DL 01/04 Unknown COMPREHENSIVE METABOLIC 05592 CALCIUM 9.7 MG/DL 2014 Unknown COMPREHENSIVE METABOLIC 29201 POTASSIUM 4.5 MMOL/L 01/17 Unknown COMPREHENSIVE METABOLIC 30857 PROT TOT 6.5 GM/DL 2014 Unknown COMPREHENSIVE METABOLIC 75769 Glucose 136 MG/DL 2014 Unknown COMPREHENSIVE METABOLIC 62366 BICARB 24 MMOL/L 2014 Unknown COMPREHENSIVE METABOLIC 95199 ANION GAP 11 MEQ/L 2014 Unknown VITAMIN B 12 96626 VIT B 12 482 PG/ML 01/17/2015 Unknow n URIC ACID 74999 URIC ACID 8.5 MG/DL 08/09/2014 Unknown COMPREHENSIVE METABOLIC 12611 AST 27 U/L 2014 Unknown COMPREHENSIVE METABOLIC 78689 ALT 26 IU/L 2014 Unknown COMPREHENSIVE METABOLIC 04622 BUN 17 MG/DL 2014 Unknown COMPREHENSIVE METABOLIC 49916 ALBUMIN 5.0 GM/DL 2014 Unknown COMPREHENSIVE METABOLIC 07258 CHLORIDE 101 MMOL/L 08/09 Unknown COMPREHENSIVE METABOLIC 29462 BILI TOT 0.7 MG/DL 2014 Unknown COMPREHENSIVE METABOLIC 92006 ALK PHOS 53 U/L 2014 Unknown COMPREHENSIVE METABOLIC 99046 SODIUM 136 MMOL/L 08/09 Unknown COMPREHENSIVE METABOLIC 17083 CREATININE 1.14 MG/DL 09/2014 Unknown COMPREHENSIVE METABOLIC 09913 CALCIUM 9.8 MG/DL 2014 Unknown COMPREHENSIVE METABOLIC 44337 POTASSIUM 4.1 MMOL/L 08/09 Unknown COMPREHENSIVE METABOLIC 28031 PROT TOT 7.5 GM/DL 2014 Unknown COMPREHENSIVE METABOLIC 77781 Glucose 110 MG/DL 2014 Unknown COMPREHENSIVE METABOLIC 49937 BICARB 30 MMOL/L 2014 Unknown COMPREHENSIVE METABOLIC 97717 ANION GAP 5 MEQ/L 2014 Unknown GFR CALC 4333721 GFR AA >60 ML/MIN 08/09/2014 Unknown GFR CALC 8113026 GFR NON-AA >60 ML/MIN 08/09/2014 Unknown FREE T4 80695 FREE T4 1.14 NG/DL 08/09/2014 Unknown GLYCOSYLATED HEMOGLOBIN TEST 86802 A1C HPLC 61434-2 6.8 % 0 08/09/2014 Unknown COMPLETE BLOOD COUNT 2111144 WBC 5.9 10e9/L 08/09/19 15 Unknown COMPLETE BLOOD COUNT [id number] RBC 5.04 10e12/L 2014 Unknown COMPLETE BLOOD COUNT 3280155 HGB 15.2 g/dL 5 Unknown COMPLETE BLOOD COUNT [id number] HCT DET 44.3 % 5 Unknown COMPLETE BLOOD COUNT 3620639 MCV 87.9 fL 5 Unknown COMPLETE BLOOD COUNT 4913388 MCH 30.2 pg 5 Unknown COMPLETE BLOOD COUNT 5531216 MCHC 34.3 g/dL 5 Unknown COMPLETE BLOOD COUNT [id number] PLT 262 10e9/L 08/09/19 15 Unknown COMPLETE BLOOD COUNT [id number] MPV 10.9 fL 5 Unknown COMPLETE BLOOD COUNT [id number] SAM % 58.7 % 5 Unknown COMPLETE BLOOD COUNT [id number] LY % 21.5 % 5 Unknown COMPLETE BLOOD COUNT [id number] MON % 14.0 % 5 Unknown COMPLETE BLOOD COUNT [id number] EOS % 5.3 % 5 Unknown COMPLETE BLOOD COUNT [id number] BASO % 0.5 % 5 Unknown COMPLETE BLOOD COUNT [id number] RDW 13.1 % 5 Unknown COMPLETE BLOOD COUNT [id number] ABS SAM 3.46 10e9/L 015 Unknown COMPLETE BLOOD COUNT [id number] ABS LYMPH 1.27 10e9/L 015 Unknown COMPLETE BLOOD COUNT [id number] ABS MONO 0.83 10e9/L 015 Unknown COMPLETE BLOOD COUNT [id number] ABS EOS 0.31 10e9/L 015 Unknown COMPLETE BLOOD COUNT [id number] ABS BASO 0.03 10e9/L 015 Unknown COMPLETE BLOOD COUNT [id number] RDW-SD 41.2 fL 5 Unknown THYROID STIMULATING HORMONE [id number] TSH 5.395 uIU/ML 08/09/2014 Unknown LIPID GROUP [id number] HDL TEST 52 MG/DL 08/09/2014 Unknown LIPID GROUP [id number] TRIG 113 MG/DL 08/09/2014 Unknown LIPID GROUP [id number] TEST LDL 158 MG/DL 08/09/2014 Unknown LIPID GROUP [id number] CHOL 233 MG/DL 08/09/2014 Unknown LIPID GROUP [id number] RCHOL/HDL 4.48 RATIO 08/09/2014 Unknow n LIPID GROUP 71757 NON-HDL CH 181 MG/DL 08/09/2014 Unknow n COMPLETE BLOOD COUNT [id number] WBC 6.8 10e9/L 09/09/19 14 Unknown COMPLETE BLOOD COUNT [id number] RBC 5.18 10e12/L 2013 Unknown COMPLETE BLOOD COUNT [id number] HGB 15.2 g/dL 4 Unknown COMPLETE BLOOD COUNT [id number] HCT DET 44.7 % 4 Unknown COMPLETE BLOOD COUNT [id number] MCV 86.3 fL 4 Unknown COMPLETE BLOOD COUNT [id number] MCH 29.3 pg 4 Unknown COMPLETE BLOOD COUNT [id number] MCHC 34.0 g/dL 4 Unknown COMPLETE BLOOD COUNT [id number] PLT 236 10e9/L 09/09/19 14 Unknown COMPLETE BLOOD COUNT [id number] MPV 11.0 fL 4 Unknown COMPLETE BLOOD COUNT [id number] SAM % 58.2 % 4 Unknown COMPLETE BLOOD COUNT [id number] LY % 21.9 % 4 Unknown COMPLETE BLOOD COUNT [id number] MON % 12.5 % 4 Unknown COMPLETE BLOOD COUNT [id number] EOS % 7.3 % 4 Unknown COMPLETE BLOOD COUNT [id number] BASO % 0.1 % 4 Unknown COMPLETE BLOOD COUNT [id number] RDW 13.6 % 4 Unknown COMPLETE BLOOD COUNT [id number] ABS SAM 3.96 10e9/L 014 Unknown COMPLETE BLOOD COUNT [id number] ABS LYMPH 1.49 10e9/L 014 Unknown COMPLETE BLOOD COUNT [id number] ABS MONO 0.85 10e9/L 014 Unknown COMPLETE BLOOD COUNT [id number] ABS EOS 0.50 10e9/L 014 Unknown COMPLETE BLOOD COUNT [id number] ABS BASO 0.01 10e9/L 014 Unknown COMPLETE BLOOD COUNT [id number] RDW-SD 42.3 fL 4 Unknown COMPREHENSIVE METABOLIC 58672 AST 27 U/L 2013 Unknown COMPREHENSIVE METABOLIC 84590 ALT 30 IU/L 2013 Unknown COMPREHENSIVE METABOLIC 99505 BUN 16 MG/DL 2013 Unknown COMPREHENSIVE METABOLIC 12136 ALBUMIN 4.9 GM/DL 2013 Unknown COMPREHENSIVE METABOLIC 02166 CHLORIDE 99 MMOL/L 2013 Unknown COMPREHENSIVE METABOLIC 46654 BILI TOT 0.7 MG/DL 2013 Unknown COMPREHENSIVE METABOLIC 56439 ALK PHOS 53 U/L 2013 Unknown COMPREHENSIVE METABOLIC 83523 SODIUM 137 MMOL/L 09/08 Unknown COMPREHENSIVE METABOLIC 57990 CREATININE 1.01 MG/DL 11/2013 Unknown COMPREHENSIVE METABOLIC 54276 CALCIUM 10.0 MG/DL 09/08 Unknown COMPREHENSIVE METABOLIC 35217 POTASSIUM 4.4 MMOL/L 09/08 Unknown COMPREHENSIVE METABOLIC 53645 PROT TOT 7.1 GM/DL 2013 Unknown COMPREHENSIVE METABOLIC 05084 Glucose 148 MG/DL 2013 Unknown COMPREHENSIVE METABOLIC 70835 BICARB 30 MMOL/L 2013 Unknown COMPREHENSIVE METABOLIC 16173 ANION GAP 8 MEQ/L 2013 Unknown GFR CALC 2235932 GFR AA >60 ML/MIN 09/08/2013 Unknown GFR CALC 4737432 GFR NON-AA >60 ML/MIN 09/08/2013 Unknown FREE T4 69675 FREE T4 1.08 NG/DL 09/08/2013 Unknown GLYCOSYLATED HEMOGLOBIN TEST 85348 A1C HPLC 75070-6 7.3 % 0 09/08/2013 Unknown THYROID STIMULATING HORMONE 96098 TSH 5.454 uIU/ML 09/08/2013 Unknown LIPID GROUP 69126 HDL TEST 59 MG/DL 09/08/2013 Unknown LIPID GROUP 09841 TRIG 92 MG/DL 09/08/2013 Unknown LIPID GROUP 23173 TEST LDL 83 MG/DL 09/08/2013 Unknown LIPID GROUP 66965 CHOL 160 MG/DL 09/08/2013 Unknown LIPID GROUP 53316 RCHOL/HDL 2.71 RATIO 09/08/2013 Unknow n VITAMIN B 12 FOLIC ACID 33764|05324 VIT B 12 467 PG/ML 12/2012 Unknown VITAMIN B 12 FOLIC ACID 38622|35024 FOLIC ACID 12.2 NG/ML Unknown VITAMIN B 12 FOLIC ACID 60889|70675 VIT B 12 467 PG/ML 12/2012 Unknown THYROID STIMULATING HORMONE 79878 TSH 4.557 uIU/ML 03/12/2013 Unknown HEMOGLOBIN A1C (GLYCOSYLATED) 5581196 A1C HPLC 65991-3 7.6 % 03/12/2013 Unknown VITAMIN D TOTAL (25 HYDROXY) 95935 VIT D TOTL 17 NG/ML 03/12/2013 Unknown FREE T4 52123 FREE T4 1.07 NG/DL 03/12/2013 Unknown URIC ACID 50819 URIC ACID 5.2 MG/DL 03/12/2013 Unknown Procedures Procedure Codes Date THER/PROPH/DIAG INJ SC/IM CPT-4: 41320 05/13/2019 TRIAMCINOLONE ACET INJ NOS CPT-4: J3301 05/13/2019 DEXAMETHASONE SODIUM PHOS CPT-4: J1100 05/13/2019 THER/PROPH/DIAG INJ SC/IM CPT-4: 33349 02/22/2019 TRIAMCINOLONE ACET INJ NOS CPT-4: J3301 02/22/2019 FLU VACC PRSV FREE INC ANTIG 65 AND OLDER CPT-4: 16894 04/21/2018 ADMIN INFLUENZA VIRUS VAC CPT-4: G0008 04/21/2018 PRESCRIP TRANSMIT VIA ERX SY CPT-4: G8553 04/21/2018 DESTRUCT PREMALG LESION (Cryosurgery) CPT-4: 10618 FLU VACC PRSV FREE INC ANTIG 65 AND OLDER CPT-4: 74272 04/22/2017 ADMIN INFLUENZA VIRUS VAC CPT-4: G0008 04/22/2017 PRESCRIP TRANSMIT VIA ERX SY CPT-4: G8553 10/10/2016 PRESCRIP TRANSMIT VIA ERX SY CPT-4: G8553 08/29/2015 ROUTINE VENIPUNCTURE CPT-4: 72152 07/26/2015 ASSAY OF FREE THYROXINE CPT-4: 02301 07/26/2015 ASSAY THYROID STIM HORMONE CPT-4: 77023 07/26/2015 COMPREHEN METABOLIC PANEL CPT-4: 33634 07/26/2015 COMPLETE CBC W/AUTO DIFF WBC CPT-4: 88479 07/26/2015 LIPID PANEL CPT-4: 92259 07/26/2015 ASSAY OF PSA TOTAL CPT-4: 08489 07/26/2015 A1C HPLC CPT-4: 43113 07/26/2015 ROUTINE VENIPUNCTURE CPT-4: 54662 01/17/2015 ASSAY OF FREE THYROXINE CPT-4: 14226 01/17/2015 ASSAY THYROID STIM HORMONE CPT-4: 75319 01/17/2015 COMPREHEN METABOLIC PANEL CPT-4: 94169 01/17/2015 COMPLETE CBC W/AUTO DIFF WBC CPT-4: 06527 01/17/2015 A1C HPLC CPT-4: 91604 01/17/2015 VITAMIN B-12 CPT-4: 17579 01/17/2015 PPPS, subseq visit CPT-4: G0439 08/04/2014 PRESCRIP TRANSMIT VIA ERX SY CPT-4: G8553 02/18/2014 FLUZONE, 5ML (Medicare) CPT-4: Q2038 07/22/2013 ADMIN INFLUENZA VIRUS VAC CPT-4: G0008 07/22/2013 PRESCRIP TRANSMIT VIA ERX SY CPT-4: G8553 04/28/2013 ROUTINE VENIPUNCTURE CPT-4: 44423 03/12/2013 VITAMIN D TOTAL (25 HYDROXY) CPT-4: 02326 03/12/2013 VITAMIN B 12 FOLIC ACID CPT-4: 76272|98692 03/12/2013 A1C GLYCOSYLATED HEMOGLOBIN TEST CPT-4: 85212 013 ASSAY OF BLOOD/URIC ACID CPT-4: 96523 03/12/2013 ASSAY OF FREE THYROXINE CPT-4: 56984 03/12/2013 ASSAY THYROID STIM HORMONE CPT-4: 14329 03/12/2013 CUR TOBACCO NON-USER CPT-4: G8457 03/11/2013 PRESCRIP TRANSMIT VIA ERX SY CPT-4: G8553 03/11/2013 Vital Signs Date Vital 10/12/2019 Blood Pressure 1: 90/60 Code : [...] 1: 156/70 Code: 8480-6 BMI: 35.0 Code: 97524-3 Heart Rate 1: 68 bpm Height: 5'10" Respiratory Rate: 20 bpm SpO2: 95% Tempera ture: 36.5 (C) / 97.7 (F) Weight: 244 lbs 04/21/2018 Blood Pressure 1: 124/80 Code: 8480-6 BMI: 34.4 Code: 12739-3 Heart Rate 1: 80 bpm Height: 5'10" Respiratory Rate: 20 bpm SpO2: 96% Tempera ture: 37.0 (C) / 98.6 (F) Weight: 240 lbs 01/06/2018 Blood Pressure 1: 138/82 Code: 8480-6 BMI: 33.9 Code: 67220-7 Heart Rate 1: 96 bpm Height: 5'10" Respiratory Rate: 24 bpm SpO2: 98% Tempera ture: 35.9 (C) / 96.6 (F) Weight: 236 lbs 10/22/2017 Blood Pressure 1: 144/70 Code: 8480-6 BMI: 34.7 Code: 59194-7 Heart Rate 1: 72 bpm Height: 5'10" Respiratory Rate: 20 bpm SpO2: 96% Tempera ture: 36.9 (C) / 98.4 (F) Weight: 242 lbs 04/22/2017 Blood Pressure 1: 146/82 Code: 8480-6 BMI: 32.9 Code: 51944-3 Heart Rate 1: 104 bpm Height: 5'10" Respiratory Rate: 20 bpm SpO2: 95% Tempera ture: 36.9 (C) / 98.5 (F) Weight: 229 lbs 10/10/2016 Blood Pressure 1: 124/64 Code: 8480-6 BMI: 32.9 Code: 67724-5 Heart Rate 1: 64 bpm Height: 5'10" [...] 1: 146/90 Code: 8480-6 BMI: 34.1 Code: 22514-6 Heart Rate 1: 80 bpm Height: 5'10" Respiratory Rate: 20 bpm Temperature: 36 .8 (C) / 98.2 (F) Weight: 238 lbs 01/17/2015 Blood Pressure 1: 116/60 Code: 8480-6 BMI: 32.7 Code: 48021-0 Heart Rate 1: 84 bpm Height: 5'10" Respiratory Rate: 20 bpm Temperature: 36 .7 (C) / 98.0 (F) Weight: 228 lbs 09/29/2014 Blood Pressure 1: 136/78 Code: 8480-6 BMI: 33.9 Code: 17617-3 Heart Rate 1: 80 bpm Height: 5'10" Respiratory Rate: 20 bpm Temperature: 36 .6 (C) / 97.9 (F) Weight: 236 lbs 08/04/2014 Blood Pressure 1: 132/70 Code: 8480-6 BMI: 32.9 Code: 85291-0 Heart Rate 1: 72 bpm Height: 5'10" Respiratory Rate: 20 bpm Temperature: 36 .7 (C) / 98.0 (F) Weight: 229 lbs 02/18/2014 Blood Pressure 1: 124/82 Code: 8480-6 Heart Rate 1: 82 bpm Respiratory Rate: 18 bpm Temperature: 36.4 (C) / 97.5 (F) Weight: 232 lbs 07/29/2013 Blood Pressure 1: 146/80 Code: 8480-6 BMI: 34.1 Code: 25774-7 Heart Rate 1: 64 bpm Height: 5'10" Respiratory Rate: 20 bpm Temperature: 36 .9 (C) / 98.5 (F) Weight: 238 lbs 05/26/2013 Blood Pressure 1: 142/90 Code: 8480-6 BMI: 34.0 Code: 73954-8 Heart Rate 1: 84 bpm Height: 5'10" Respiratory Rate: 20 bpm Temperature: 36 .7 (C) / 98.0 (F) Weight: 237 lbs 04/28/2013 Blood Pressure 1: 118/78 Code: 8480-6 BMI: 32.9 Code: 02622-6 Heart Rate 1: 74 bpm Height: 5'10" Respiratory Rate: 20 bpm Temperature: 36 .1 (C) / 97.0 (F) Weight: 229 lbs 03/11/2013 Blood Pressure 1: 146/80 Code: 8480-6 BMI: 31.5 Code: 24648-7 Heart Rate 1: 80 bpm Height: 6' Respiratory Rate: 20 bpm Temperature: 36 .8 (C) / 98.2 (F) Weight: 232 lbs Functional Status No Functional Status data Reason For Visit Reason For Visit Effective Dates Notes follow up 10/12/2019 cough 06/02/2019 sinus congestion [...] care Encounters Encounter Performer Location Codes Date ([id number]) OFFICE/OUTPATIENT VISIT EST Diagnosis: Other dyspnea and respiratory abnormality[ICD10: R06.09] Diagnosis: Obstructive sleep apnea[ICD10: G47.33] Diagnosis: Hypotension[ICD10: I95.9] Xiomara Bettencourt [facility] CPT -4: 37147 10/12/2019 ([id number]) OFFICE/OUTPATIENT VISIT EST Diagnosis: Upper respiratory infection[ICD10: J06.9] Pennie Pinonnoris Dinh MOICARLOS SEdvin ARELYSHAAN [employer] [facility] CPT-4: 88011 06/02/2019 ([id number]) OFFICE/OUTPATIENT VISIT EST Diagnosis: Sinusitis[ICD10: J32.9] Diagnosis: Allergic rhinitis[ICD10: J30.9] Pennie Pinondi XIOMARA SEdvin REEDER [employer] [facility] CPT-4: 19880 05/13/2019 ([id number]) OFFICE/OUTPATIENT VISIT EST Diagnosis: Pneumonia[ICD10: J18.9] Pennie Pinonnoris RENAEXIOMARA SEdvin ARELYND [employer] [facility] CPT-4: 37898 04/26/2019 ([id number]) OFFICE/OUTPATIENT VISIT EST Diagnosis: Acute sinusitis, unspecified[ICD10: J01.90] Pennie Pinonnoris RENAEXIOMARA SEdvin ARELYNDER [employer] [facility] CPT-4: 06251 02/22/2019 ([id number]) OFFICE/OUTPATIENT VISIT EST Diagnosis: Cervicalgia[ICD10: M54.2] Xiomara Gan ARELY STEPHANIE [employer] [facility] CPT-4: 83083 11/25/2018 ([id number]) OFFICE/OUTPATIENT VISIT EST Diagnosis: Acute sinusitis, unspecified[ICD10: J01.90] Diagnosis: Myalgia, unspecified site[ICD10: M79.10] Diagnosis: Cervicalgia[ICD10: M54.2] Xiomara MCGEE [facility] CPT-4: 68580 11/19/2018 ([id number]) OFFICE/OUTPATIENT VISIT EST Diagnosis: Low back pain[ICD10: M54.5] Diagnosis: Essential (primary) hypertension[ICD10: I10] Diagnosis: 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, 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] Diagnosis: Paroxysmal atrial fibrillation[ICD10: I48.0] [facility]: 53325 07/22/2018 ([id number]) OFFICE/OUTPATIENT VISIT EST Diagnosis: Type 2 diabetes mellitus with diabetic neuropathy, unspecified[ICD10: E11.40] Diagnosis: Hyperlipidemia, unspecified[ICD10: E78.5] Diagnosis: Essential (primary) hypertension[ICD10: I10] Diagnosis: Chronic kidney disease, stage 1[ICD10: N18.1] Diagnosis: Benign prostatic hyperplasia with lower urinary tract symptoms[ICD10: N40.1] Diagnosis: FLU VACCINE[ICD10: Z23] Xiomara Gan [facility] CPT-4: 10468 04/21/2018 OFFICE/OUTPATIENT VISIT EST Diagnosis: Type 2 diabetes mellitus with hyperglycemia[ICD10: E11.65] Diagnosis: Essential (primary) hypertension[ICD10: I10] Diagnosis: Mixed hyperlipidemia[ICD10: E78.2] Diagnosis: Other fatigue[ICD10: R53.83] [facility]: 69684 01/06/2018 ([id number]) OFFICE/OUTPATIENT VISIT EST Diagnosis: Type 2 diabetes mellitus with diabetic neuropathy, unspecified[ICD10: E11.40] Diagnosis: Essential (primary) hypertension[ICD10: I10] Diagnosis: Pain in right thigh[ICD10: M79.651] Diagnosis: Pain in left leg[ICD10: M79.605] Diagnosis: Localized swelling, mass and lump, left lower limb[ICD10: R22.42] Diagnosis: OSTEOARTHRISIS MULTI SITES[ICD10: M19.90] Diagnosis: FLU VACCINE[ICD10: Z23] Xiomara [facility] CPT-4: 90880 04/22/2017 ([id number]) OFFICE/OUTPATIENT VISIT EST Diagnosis: Essential (primary) hypertension[ICD10: I10] Diagnosis: Type 2 diabetes mellitus with hyperglycemia[ICD10: E11.65] Diagnosis: Angina pectoris, unspecified[ICD10: I20.9] Xiomara [facility] CPT-[facility]: 16207 10/10/2016 ([id number]) OFFICE/OUTPATIENT VISIT EST Diagnosis: Cough[ICD10: R05] Diagnosis: Wheezing[ICD10: R06.2] Diagnosis: Chronic obstructive pulmonary disease, unspecified[ICD10: J44.9] Shannan [facility] CPT-4: 15947 08/31/2015 OFFICE/OUTPATIENT VISIT EST Diagnosis: Acute bronchitis, unspecified[ICD10: J20.9] Diagnosis: Wheezing[ICD10: R06.2] Kelsie [facility] CPT-4: 52631 08/29/2015 ([id number]) OFFICE/OUTPATIENT VISIT EST Diagnosis: Type 2 diabetes mellitus with diabetic neuropathy, unspecified[ICD10: E11.40] Diagnosis: Hyperlipidemia, unspecified[ICD10: E78.5] Diagnosis: Essential (primary) hypertension[ICD10: I10] Diagnosis: Encounter for general adult medical examination without abnormal findings[ICD10: Z00.00] Xiomara [facility] CPT-[facility]: 65458 07/26/2015 OFFICE/OUTPATIENT VISIT EST Diagnosis: Type 2 diabetes mellitus with hyperglycemia[ICD10: E11.65] Diagnosis: Unspecified osteoarthritis, unspecified site[ICD10: M19.90] Diagnosis: Other instability, right knee[ICD10: M25.361] Kelsie BETTENCOURT [facility] CPT-4: 92053 07/24/2015 ([id number]) OFFICE/OUTPATIENT VISIT EST Diagnosis: Pain in leg, unspecified[ICD10: M79.606] Diagnosis: Type 2 diabetes mellitus with diabetic neuropathy, unspecified[ICD10: E11.40] Xiomara BETTENCOURT [facility] CPT-4: 24803 05/01/2015 ([id number]) OFFICE/OUTPATIENT VISIT EST Diagnosis: MALAISE AND FATIGUE[ICD9: 780.79] Diagnosis: 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, 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] Diagnosis: CAD[ICD9: 414.00] Diagnosis: ANEMIA NOS[ICD9: 285.9] Xiomara MCBRIDE ER [facility] CPT-4: 85339 01/17/2015 ([id number]) OFFICE/OUTPATIENT VISIT EST Diagnosis: Skin lesion[ICD9: 709.9] Xiomara HAND CHADWICK [facility] CPT-4: 76454 09/29/2014 OFFICE/OUTPATIENT VISIT EST Diagnosis: GASTROENTERITIS[ICD9: 558.9] Diagnosis: GERD[ICD9: 530.81] Kelsie VanMessi XIOMARA BETTENCOURT [facility] CPT-4: 92396 02/18/2014 ([id number]) OFFICE/OUTPATIENT VISIT EST Diagnosis: 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I, UNCONTROLLED[ICD9: 250.02] Xiomara BETTENCOURT [facility] CPT-4: 49222 07/29/2013 ([id number]) OFFICE/OUTPATIENT VISIT EST Diagnosis: FLU VACCINE[ICD9: V04.81] Xiomara MCGEE NDER [facility] CPT-4: 91651 07/22/2013 ([id number]) OFFICE/OUTPATIENT VISIT EST Diagnosis: 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I, UNCONTROLLED[ICD9: 250.02] Diagnosis: HYPERTENSION[ICD9: 401.9] Xiomara MCGEE NDER [facility] CPT-4: 86303 05/26/2013 ([id number]) OFFICE/OUTPATIENT VISIT EST Diagnosis: MONONEURITIS[ICD9: 355.9] Diagnosis: RESTLESS LEGS SYNDROME[ICD9: 333.94] Diagnosis: HYPERTENSION[ICD9: 401.9] Diagnosis: CAD[ICD9: 414.00] Diagnosis: Weakness[ICD9: 780.79] Xiomara Dolan [facility] CPT-4: 06918 04/28/2013 ([id number]) OFFICE/OUTPATIENT VISIT EST Diagnosis: 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[ICD9: 250.01] Diagnosis: MONONEURITIS[ICD9: 355.9] Diagnosis: HYPERLIPIDEMIA NEC/NOS[ICD9: 272.4] Diagnosis: CAD[ICD9: 414.00] Xiomara LARA DelphineEdvin KODAK Sennari CPT-4: 62997 03/12/2013 OFFICE/OUTPATIENT VISIT NEW Diagnosis: CAD[ICD9: 414.00] Diagnosis: HYPERLIPIDEMIA NEC/NOS[ICD9: 272.4] Diagnosis: HYPERTENSION[ICD9: 401.9] Diagnosis: Neuropathy[ICD9: 355.9] Diagnosis: RESTLESS LEGS SYNDROME[ICD9: 333.94] Xiomara Gan ARELYSHERITA Sennari CPT-4: 22667 03/11/2013 Plan of Care Planned Activity Notes Codes Status Date Visit Diagnosis Plan: Obstructive sleep apnea Discussi [...] : I95.9 10/12/2019 Appointment: [facility] [phone] [facility] [facility] 09/23/2019 Care Plan: COMPREHEN METABOLIC PANEL SERGEI NC : 38061-5 Pending 09/20/2019 Care Plan: LIPID PANEL LOINC : 11032-5 Pending 09/20/2019 Care Plan: A1C HPLC LOINC : 97332-1 Pending 09/20/2019 Care Plan: COMPLETE CBC W/AUTO DIFF WBC LOINC : 71979-9 Pending 09/20/2019 Visit Diagnosis Plan: Upper respiratory infection Disc ussion: discussed that most likely viral. push fluids and rest through the week. patient has left over levaquin at home (5 days worth). instructed patient to start taking if he gets worse later this week and to call us next week if no improvement. ICD-9 : 465.9 ICD-10 : J06.9 06/02/2019 Appointment: Pennie Pizarro [address] [place], [place] [phone] ACUTE ILLNESS 06/02/2019 Visit Diagnosis Plan: Allergic [...] : J30.9 05/13/2019 Appointment: Pennie Pizarro [address] [place], [place] [phone] ACUTE ILLNESS 05/13/2019 Appointment: Xiomara Bettencourt WPtel: [phone] [facility] US CANCELED 04/27/2019 Visit Diagnosis Plan: Pneumonia Discussion: will obtai n records from urgent care. instructed to finish out doxy. no rhonchi or crackles auscultated. symbicort sample given to patient with instructions to use bid. call office later this week with new or worsening symptoms. ICD-9 : 486 ICD-10 : J18.9 04/26/2019 Appointment: Pennie Pizarro [address] [place], [place] [phone] FOLLOW UP 04/26/2019 Visit Diagnosis Plan: Acute [...] : 461.9 ICD-10 : J01.90 02/22/2019 Appointment: Moira, Pennie R. [address] [place], [place] [id number] ACUTE ILLNESS 02/22/2019 Patient Education: prednisone- [employer] Coupon [phone] [email or web address] Completed 02/22/2019 Visit Diagnosis Plan: Cervicalgia Discussion: Check Ce rvical Spine X-ray Will likely need PT ICD-9 : 723.1 ICD-10 : M54.2 11/25/2018 Appointment: Xiomara Bettencourt WPtel: [phone] [facility] ACUTE ILLNESS 11/25/2018 Visit Plan: Saline [...] Tyle... 11/19/2018 Appointment: Xiomara Bettencourt WPtel: [phone] [facility] ACUTE ILLNESS 11/19/2018 Patient Education: baclofen- [employer] Coupon [phone] [email or web address] Completed 11/19/2018 Visit Diagnosis Plan: Paroxysmal atrial [...] I10 07/22/2018 Appointment: [facility]tencourt [facility]el[facility] [phone] [facility] [facility] FOLLOW UP 07/22/2018 Visit Diagnosis [...] Trial of flomax Call in 1 mo [facility] on how doing Follow Up: 4 months ICD-9 : 600.21 ICD-10 : N40.1 04/21/2018 Appointment: Xiomara Bettencourt [facility]Ptel[facility] [phone] [facility] FOLLOW UP 04/21/2018 Patient Education: Patient [...] : E78.2 01/06/2018 Appointment: Pennie Pizarro [address] [place] [address] MEDICATION REVIEW 01/06/2018 Patient Education: Patient Medication Summary Completed 01/06/2018 Appointment: Xiomara Bettencourt WPtel: [address] [place] [address] NO SHOW 01/05/2018 Appointment: Xiomara Bettencourt WPtel: [address] [place] [address] US CANCELED 12/31/2017 Visit Diagnosis Plan: Actinic keratosis Discussion: Cr yotherapy as above but will see derm if lesions do not resolve ICD-9 : 702.0 ICD-10 : L57.0 10/22/2017 Appointment: Xiomara Bettencourt WPtel: [address] [place] [address] ACUTE ILLNESS 10/22/2017 Patient Education: Patient Medication Summary Completed 10/22/2017 Visit Diagnosis Plan: Pain in right thigh [...] ICD-9 : 250.60 ICD-10 : E11.40 04/22/2017 Appointment: Xiomara Bettencourt [facility]Ptel[facility] [phone] [facility] [facility] FOLLOW UP 04/22/2017 Patient Education: Patient Medication Summary Completed 04/22/2017 Patient Education: Patient Medication Summary Completed 04/16/2017 Care Plan: COMPREHEN METABOLIC PANEL SERGEI NC : 95236-1 Pending 04/16/2017 Care Plan: LIPID PANEL LOINC : 81361-6 Pending 04/16/2017 Care Plan: CBC Pending 04/16/2017 Care Plan: A1C HPLC LOINC : 01087-5 Pending 04/16/2017 Referral: Inocencio Goodson WPtel: [phone] [facility] [id number] [place] Referral Appointment Confirmed 10/14/2016 Visit Diagnosis Plan: Type 2 diabetes mellitus with hy perglycemia Discussion: Continue toujeo Accuchecks BID Follow Up: 4 months ICD-9 : 250.02 ICD-10 : E11.65 10/10/2016 Visit Diagnosis Plan: Angina pectoris, unspecified Dis cussion: Continue imdur and see cardiology To ER if chest pain returns ICD-9 : 413.9 ICD-10 : I20.9 10/10/2016 Appointment: Xiomara Bettencourt WPtel: [address] [place] [address] FOLLOW UP 10/10/2016 Patient Education: Patient Medication Summary Completed 10/10/2016 Patient Education: Patient Medication Summary Completed 09/16/2016 Care Plan: COMPREHEN METABOLIC PANEL SERGEI NC : 15856-0 Pending 09/16/2016 Care Plan: ASSAY THYROID STIM HORMONE Pen ding 09/16/2016 Care Plan: ASSAY OF FREE THYROXINE Pendin g 09/16/2016 Care Plan: LIPID PANEL LOINC : 50389-9 Pending 09/16/2016 Care Plan: CBC Pending 09/16/2016 Care Plan: A1C HPLC LOINC : 69958-6 Pending 09/16/2016 Visit Plan: CXR now to [...] with CXR results 08/31/2015 Appointment: Shannan Grimes [address] [place] [address] 08/31 confirmed- SP ACUTE ILLNESS 08/31/2015 Patient Education: Patient Medication Summary Completed 08/31/2015 Visit Plan: Albuterol INH via SVN every 4 hours Prednisone 20 mg PO BID Notify for worsening symptoms 08/29/2015 Appointment: Kelsie Grubbs WPtel: [address] [place], [place] [phone] ACUTE ILLNESS 08/29/2015 Patient Education: Patient Medication Summary Completed 08/29/2015 Appointment: Xiomara Bettencourt WPtel: [address] [place], [place] [phone] LAB 07/26/2015 Patient Education: Patient Medication Summary Completed 07/26/2015 Visit Plan: Return in am for fasting lab s - CBC, CMP, TSH, Free T4, HgbA1C Change Levemir to Toujeo - Continue 35 Units q am - sample given Start physical Therapy for increased quadriceps strengthening and decreased pain in knees, bilaterally. 07/24/2015 Appointment: Humera Kelsie Pushpa WPtel: [address] [place], [place] [phone] 07/21 appt confirmed cn FOLLOW UP 07/24/19 Appointment: DaPrabhakarKelsie dixon WPtel: [address] [place], [place] [phone] FOLLOW UP 07/24/2015 Patient Education: Patient Medication [...] with insulin 05/01/2015 Appointment: Xiomara Bettencourt WPtel: [address] [place], [place] [phone] 04/28 confirmed~sl ACUTE ILLNESS 05/01/2015 Patient Education: Patient Medication Summary Completed 05/01/2015 Patient Education: Patient Medication Summary Completed 01/19/2015 Care Plan: URINALYSIS AUTO W/[place] SERGEI NC : 44650-7 Pending 01/19/2015 Visit Plan: I have went through his medi cations in past and stopped meds but he adjusts his meds on his own and has restarted some Stop Amaryl Once again discussed not using indomethacin routinely due to taking plavix and aspirin daily and snf use is dangerous Check CBC, CMP, TSH, free T4, B12 and HbA1C Patient has seen Cardiology recently but no cardiac cath done--had chemical stress test 01/17/2015 Appointment: Xiomara Bettencourt WPtel: [address] [place], [place] [phone] 01/16 vm cn ACUTE ILLNESS 01/17/2015 Patient Education: Patient Medication Summary Completed 01/17/2015 Visit Plan: See Dr. Garvin for removal 09/29/2014 Appointment: Xiomara Bettencourt WPtel: [address] [place] [address] ACUTE ILLNESS 09/29/2014 Referral: Colt Garvin WPtel: [address] Referral Initiated 09/29/2014 Patient Education: Patient Medication Summary Completed 09/29/2014 Visit Plan: Check CBC, CMP, TSH, free T4 , HbA1C, Lipids Accuchecks daily alternating times Patient has been adjusting own meds and has not taken any cholesterol meds for sometime Will check into surgery on right knee at [facility] Check carotid dopplers 08/04/2014 Appointment: Xiomara Bettencourt WPtel: [address] [place] [address] Annual Well Visit 08/04/2014 Patient Education: Patient Medication Summary Completed 08/04/2014 Appointment: Kelsie Grubbs WPtel: [address] [place] [address] ACUTE ILLNESS 02/18/2014 Patient Education: Patient Medication Summary Completed 02/18/2014 Patient Education: [facility] - Saving [employer] - 18+ - Dynamic Portal ID Completed 02/18/2014 Appointment: Xiomara Bettencourt WPtel: [address] [place] [address] LAB 09/08/2013 Visit Plan: Check fasting lab in 1mo Con tinue Lantus and accuchecks at least BID 07/29/2013 Appointment: Xiomara Bettencourt WPtel: [address] [place] [address] FOLLOW UP 07/29/2013 Patient Education: Patient Medication Summary Completed 07/29/2013 Appointment: Xiomara Bettencourt WPtel: 16 [place] [address] INJECTION 07/22/2013 Patient Education: Patient Medication Summary Completed 07/22/2013 Visit Plan: Pt has been self-adjusting m eds Stop metformin and amaryl Use Levemir 25u sc BID and call in 1wk with BS readings 05/26/2013 Appointment: Xi[facility] Bet[facility]court [facility] [phone] [id number] FO[facility] UP 05/26/2013 Patient Education: Patient Medication Summary Completed 05/26/2013 Visit Plan: DC Metformin Increase Lantus to 30u sc daily Change lisinopril to lisinopril HCT 20/25mg q AM Continue Gabapentin at current dose 04/28/2013 Appointment: Xiomara Bettencourt WPtel: [address] [place], [place] [phone] FOLLOW UP 04/28/2013 Patient Education: Patient Medication Summary Completed 04/28/2013 Appointment: Xiomara Bettencourt WPtel: [address] [place], [place] [phone] LAB 03/12/2013 Patient Education: Patient Medication Summary Completed 03/12/2013 Visit Plan: Trial of neurontin 400mg q H S Obtain most recent lab results Change levemir to lantus per pt request Pt goes for sleep study tonite 03/11/2013 Appointment: Xiomara Bettencourt WPtel: [phone] [facility] 02/01paperwork mailed 03/10 confirmed with spouse NEW PATIENT 11/2012 Patient Education: Patient Medication Summary Completed 03/11/2013 Instructions Comment . Saline nasal flushes prn. Tylenol/Motr in prn headache. Notify if persists/symptoms worsening. . 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 Check [...]
--- OUTSIDE RECORDS SUMMARY | 2020-02-02 21:42 | XMS REPORT | CCD ---
Author Author Sheng Bettencourt D.O. 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 Medicare Part B [id number] 2018 Un known Family history Mother Diagnosis Age At Onset Diabetes mellitus Type 2 Unknown Hypercholesterolemia Unknown Father Diagnosis Age At Onset No Family Disease Entered N/A Social History Social History Element Codes Description Effective Dates Marital status Unknown 03/11/2013 Number of children Unknown 4 03/11/2013 Employment Unknown Retired 03/11/[address]: 1968179 Former smoker 03/11/[address]: 556491 Currently drinks alc ohol Socially 03/11/2013 Has [...] HFA 90 mcg/actuation aerosol inhaler RxNor m: 4715017 1-2 Puff(s) Inhalation as needed 10/12/2019 No Stop Date Active Zyrtec 10 mg tablet RxNorm: 8772968 1 Tablet(s) Oral QAM 10/12/2019 No Stop Date Active aspirin 81 mg tablet,delayed release RxNorm: 689150 1 Tablet(s) Oral QD 10/12/2019 No Stop Date Active Symbicort 160 mcg-4.5 mcg/actuation HFA aerosol inhaler RxNo rm: 8724081 2 Puff(s) Inhalation QD 10/12/2019 No Stop Date Active lisinopril 20 mg tablet RxNorm: 831874 1 Tablet(s) Oral QD 10/12/19 20 01/10/2020 Active simvastatin 20 mg tablet RxNorm: 182743 1 Tablet(s) Ora l QD Needs updated fasting labs 09/20/2019 12/19/2019 Active Needs updated fa sting labs before 90 day refill Flomax 0.4 mg capsule RxNorm: 508491 TAKE TWO CAPSULES BY MOUTH EVERY EVENING 08/03/2019 No Stop Date Active gabapentin 400 mg capsule RxNorm: 785479 TAKE ONE CAPSU LE BY MOUTH EVERY EVENING 08/02/2019 No Stop Date Active simvastatin 20 mg tablet RxNorm: 718869 1 Tablet(s) Ora l QD Needs updated fasting labs 07/21/2019 08/19/2019 Inactive Needs updated fa sting labs before 90 day refill simvastatin 20 mg tablet RxNorm: 274266 1 Tablet(s) Ora l QD Needs updated fasting labs 06/23/2019 07/20/2019 Inactive Needs updated fa sting labs before 90 day refill Flomax 0.4 mg capsule RxNorm: 300412 1 Capsule(s) Oral QD 9 No Stop Date Active Flomax 0.4 mg capsule RxNorm: 484512 TAKE TWO CAPSULES BY MOUTH EVERY EVENING 03/19/2019 05/12/2019 Inactive Augmentin 500 mg-125 mg tablet RxNorm: 275838 1 Tablet(s) PO BID 03/03/2019 Inactive baclofen 10 mg tablet RxNorm: 056683 TAKE ONE TABLET BY MOUTH EVERY NIGHT AT BEDTIME FOR PAIN OR SPASMS 01/14/2019 05/12/2019 Inactive Flomax 0.4 mg capsule RxNorm: 861899 TAKE TWO CAPSULES BY MOUTH EVERY EVENING 01/12/2019 03/18/2019 Inactive gabapentin 400 mg capsule RxNorm: 097740 1 Capsule(s) PO QPM 201806/27/2019 Inactive baclofen 10 mg tablet RxNorm: 495140 1 Tablet(s) PO QHS for my n/spasm 12/15/2018 01/13/2019 Inactive simvastatin 20 mg tablet RxNorm: 683918 TAKE ONE TABLET BY MOUT H DAILY 12/11/2018 06/22/2019 Inactive OneTouch Ultra Blue Test Strip RxNorm: Use 1 rigoberto t strip three times daily to check blood sugar (Dx:E11.65) 12/07/2018 No Stop Date Active gabapentin 400 mg capsule RxNorm: 227744 TAKE ONE CAPSU LE BY MOUTH EVERY EVENING 12/04/2018 12/29/2018 Inactive baclofen 10 mg tablet RxNorm: 444590 1 Tablet(s) PO QHS for my n/spasm 11/19/2018 12/15/2018 Inactive Flomax 0.4 mg capsule RxNorm: 933882 2 Capsule(s) PO QPM 09/15/2018 0 12/13/2018 Inactive WOULD LIKE 90DS!!! gabapentin 400 mg capsule RxNorm: 095731 TAKE ONE CAPSU LE BY MOUTH EVERY EVENING 07/21/2018 10/18/2018 Inactive simvastatin 20 mg tablet RxNorm: 739558 1 Tablet(s) PO QD 06/15/2018 12/10/2018 Inactive Flomax 0.4 mg capsule RxNorm: 971782 TAKE TWO CAPSULES BY MOUTH EVERY EVENING 06/02/2018 09/15/2018 Inactive WOULD LIKE 90DS!!! Flomax 0.4 mg capsule RxNorm: 593219 2 Capsule(s) PO QPM 04/21/2018 1 07/20/2017 Inactive simvastatin 20 mg tablet RxNorm: 468171 1 Tablet(s) PO QD Take 1 tablet by mouth daily. Patient due for labwork before further refill. 04/06/20182017 Inactive simvastatin 20 mg tablet RxNorm: 556697 Tablet(s) TAKE ONE TABLET BY MOUTH DAILY 03/25/2018 06/15/2018 Inactive simvastatin 20 mg tablet RxNorm: 859882 Tablet(s) TAKE ONE TABLET BY MOUTH DAILY due for appt 12/29/2017 03/25/2018 Inactive simvastatin 20 mg tablet RxNorm: 254595 TAKE ONE TABLET BY MOUT H DAILY 09/03/2017 12/29/2017 Inactive simvastatin 20 mg tablet RxNorm: 998445 1 Tablet(s) PO QD 10/22/2016 11/18/2018 Inactive isosorbide mononitrate ER 60 mg tablet,extended release 24 h r RxNorm: 182992 1 Tablet(s) PO QD 10/22/2016 04/21/2017 Inactive isosorbide mononitrate ER 60 mg tablet,extended release 24 h r RxNorm: 617472 1 Tablet(s) PO QD 10/10/2016 10/21/2016 Inactive simvastatin 20 mg tablet RxNorm: 806699 1 Tablet(s) PO QD 10/10/2016 10/21/2016 Inactive gabapentin 400 mg capsule RxNorm: 213053 1 Capsule(s) PO QPM 201609/20/2016 Inactive Toujeo SoloStar 300 unit/mL (1.5 mL) subcutaneous insulin pe n RxNorm: 4192684 35 Unit(s) SQ QAM 07/23/2016 07/22/2016 Inactive Toujeo SoloStar 300 unit/mL (1.5 mL) subcutaneous insulin pe n RxNorm: 5924931 40 Unit(s) SQ QAM 09/01/2015 No Stop Date Active Symbicort 160 mcg-4.5 mcg/actuation HFA aerosol inhaler RxNo rm: 3425971 2 Puff(s) INH BID 08/31/2015 09/09/2015 Inactive prednisone 20 mg tablet RxNorm: 078266 1 Tablet(s) PO BID 08/29/2015 09/02/2015 Inactive albuterol sulfate 2.5 mg/3 mL (0.083 %) solution for n ebulization RxNorm: 566464 1 Unit(s) INH Q4H as needed 08/29/2015 10/09/2016 Inactive levothyroxine 75 mcg tablet RxNorm: 594372 1 Tablet(s) PO QD 201507/27/2015 Inactive levothyroxine 75 mcg tablet RxNorm: 016796 1 Tablet(s) PO QD 201511/18/2018 Inactive levothyroxine 75 mcg tablet RxNorm: 052653 1 Tablet(s) PO QD 201507/27/2015 Inactive lisinopril 20 mg-hydrochlorothiazide 25 mg tablet RxNorm: 19 7887 TAKE ONE TABLET BY MOUTH EVERY MORNING. REPLACES PLAIN LISINOPRIL 03/06/2015 04/21/2017 Inactive lisinopril 20 mg-hydrochlorothiazide 25 mg tablet RxNorm: 19 7887 TAKE ONE TABLET BY MOUTH EVERY MORNING. REPLACES PLAIN LISINOPRIL 09/08/2014 03/05/2015 Inactive allopurinol 100 mg tablet RxNorm: 154279 1 Tablet(s) PO BID 015 10/09/2016 Inactive [SAVINGS FOR NON-COVERED YULIA -- BIN:[id number], PCN: [id number], Group: XXXXX, ID# [id number], Questions: . THIS IS NOT INSURANCE.] levothyroxine 50 mcg tablet RxNorm: 260010 1 Tablet(s) PO QD 201407/26/2015 Inactive [AttnRPh: Saving apply/adjud icate RxGRP:SG20 RxBIN:[id number] RxPCN:HT ID#:[id number]] Zegerid 40 mg-1.1 gram capsule RxNorm: 218395 1 Capsule(s) PO QD 03/03/2014 Inactive [AttnRPh: Saving apply/adjud icate RxGRP:SG20 RxBIN:[id number] RxPCN:HT ID#:[id number]] ondansetron 8 mg disintegrating tablet RxNorm: 133907 1 Tablet(s) PO Q8H as needed for [...] 07/28/2013 Inactive gabapentin 400 mg capsule RxNorm: 442405 1 Capsule(s) PO QPM 201207/28/2013 Inactive gabapentin 400 mg capsule RxNorm: 004324 1 Capsule(s) PO QPM 201206/26/2013 Inactive lisinopril 20 mg-hydrochlorothiazide 25 mg tablet RxNorm: 82 3971 1 Tablet(s) PO QAM replaces plain lisinopril 04/28/2013 07/29/2013 Inactive gabapentin 400 mg capsule RxNorm: 106997 1 Capsule(s) PO QPM 201204/27/2013 Inactive gabapentin 400 mg capsule RxNorm: 173079 1 Capsule(s) PO QPM 201203/10/2013 Inactive gabapentin 400 mg capsule RxNorm: 367289 1 Capsule(s) PO QPM 201203/14/2013 Inactive Lantus Solostar 100 unit/mL (3 mL) Sub-Q Insulin Pen RxNorm: 547639 20 Unit(s) SQ QPM 03/11/2013 03/15/2013 Inactive Toujeo SoloStar 300 unit/mL (1.5 mL) subcutaneous insulin pe n RxNorm: 6328916 35 Unit(s) SQ QAM No Start Date Active omeprazole 20 mg capsule,delayed release RxNorm: 871041 1 Capsu le(s) PO QD No Start Date Active isosorbide mononitrate ER 60 mg tablet,extended release 24 h r RxNorm: 876920 1 Tablet(s) PO QD No Start Date Active Eliquis 5 mg tablet RxNorm: 0746943 1 Tablet(s) PO BID No Start Date Active metformin 500 mg tablet RxNorm: 942096 1 Tablet(s) PO BID No Start Da te Active levothyroxine 50 mcg tablet RxNorm: 866034 1 Tablet(s) PO QD No Start Date Active Norvasc 10 mg tablet RxNorm: 941163 1 Tablet(s) PO QHS No Start Date Active Toujeo SoloStar 300 unit/mL (1.5 mL) subcutaneous insulin pe n RxNorm: 8586119 30 Unit(s) SQ QAM No Start Date Active glimepiride 4 mg tablet RxNorm: 279724 1 Tablet(s) PO QHS No Start Date 07/26/2015 Inactive allopurinol 100 mg tablet RxNorm: 644730 1 Tablet(s) PO BID No Star t Date 08/10/2014 Inactive Lantus Solostar 100 unit/mL (3 mL) subcutaneous insulin pen RxNorm: 253380 30 Unit(s) SQ QD No Start Date 08/03/2014 Inactive Levemir FlexTouch 100 unit/mL (3 mL) subcutaneous insulin pe n RxNorm: 839621 25 Unit(s) SQ QAM No Start Date 07/23/2015 Inactive Lantus 100 unit/mL Sub-Q RxNorm: 320255 30 Unit(s) SQ QHS No Start Date 05/25/2013 Inactive Lantus Solostar 100 unit/mL (3 mL) Sub-Q Insulin Pen RxNorm: 017885 20 Unit(s) SQ QPM No Start Date 03/10/2013 Inactive OneTouch Ultra Blue Test Strip RxNorm: Use 1 rigoberto t strip three times daily to check blood sugar (Dx:E11.65) No Start Date 12/06/2018 Inactive Levemir FlexTouch 100 unit/mL (3 mL) subcutaneous insulin pe n RxNorm: 144961 30- 35 Unit(s) SQ QAM No Start Date 07/23/2015 Inactive Levemir Flexpen 100 unit/mL (3 mL) solution subcutaneo us insulin pen RxNorm: 271897 20-25 Unit(s) SQ QD No Start Date 07/28/2013 Inactive lisinopril 20 mg tablet RxNorm: 042294 1 Tablet(s) PO QD No Start D ate 10/11/2019 Inactive indomethacin ER 75 mg capsule,extended release RxNorm: 80528 2 1 Capsule(s) PO QAM No Start Date 04/27/2013 Inactive indomethacin ER 75 mg capsule,extended release RxNorm: 53428 2 1 Capsule(s) PO QD No Start Date 01/16/2015 Inactive Chlortab-4 oral RxNorm: 616547 oral No Start Date 10/11/2019 Inac tive Vitamin D3 5,000 unit tablet RxNorm: 844773 1 Tablet(s) PO QD No St art Date 08/03/2014 Inactive Levemir Flexpen 100 unit/mL (3 mL) solution subcutaneo us insulin Pen RxNorm: 418582 20 Unit(s) SQ QHS No Start Date 03/10/2013 Inactive Vytorin 10 mg-40 mg tablet RxNorm: 9807765 1/2 Tablet(s) PO QD No S tart Date 04/20/2018 Inactive oxymetazoline-menthol 0.05 % nasal spray RxNorm: 1019982 [place] N COTY No Start Date 10/11/2019 Inactive Patient states he ta kes every 10 hours Toujeo SoloStar 300 unit/mL (1.5 mL) subcutaneous insulin pe n RxNorm: 2068430 35 Unit(s) SQ QAM No Start Date 07/22/2016 Inactive Lantus Solostar 100 unit/mL (3 mL) subcutaneous insulin pen RxNorm: 415282 20 Unit(s) SQ QD No Start Date 08/03/2014 Inactive aspirin 81 mg tablet RxNorm: 634142 1 Tablet(s) PO QD No Start Date 0 08/03/2014 Inactive metformin 500 mg tablet RxNorm: 479733 1 Tablet(s) PO BID No Start Date 07/28/2013 Inactive glimepiride 4 mg tablet RxNorm: 522506 1 Tablet(s) PO BID No Start Date 01/16/2015 Inactive glimepiride 4 mg tablet RxNorm: 617997 1 Tablet(s) PO QD No Start D ate 08/03/2014 Inactive levothyroxine 25 mcg tablet RxNorm: 790146 1 Tablet(s) PO QD No Sta rt Date 08/10/2014 Inactive doxycycline oral RxNorm: 08965 oral No Start Date 05/12/2019 Inac tive aspirin 81 mg tablet RxNorm: 400909 1 Tablet(s) PO QD No Start Date 0 07/21/2018 Inactive isosorbide mononitrate ER 60 mg tablet,extended release 24 h r RxNorm: 905161 1 Tablet(s) PO BID No Start Date 01/16/2015 Inactive metformin 500 mg tablet RxNorm: 754644 1 Tablet(s) PO BID No Start Date 04/27/2013 Inactive Plavix 75 mg tablet RxNorm: 671784 1 Tablet(s) PO QD No Start Date Inactive glimepiride 4 mg tablet RxNorm: 024268 1 Tablet(s) PO QPM No Start Date 02/21/2019 Inactive Vytorin 10-40 10 mg-40 mg tablet RxNorm: 7142344 1 Tablet(s) PO QHS No Start Date 08/03/2014 Inactive indomethacin 50 mg capsule RxNorm: 431971 1 Capsule(s) PO QHS No St art Date 01/16/2015 Inactive glimepiride 4 mg tablet RxNorm: 176714 1 Tablet(s) PO BID No Start Date 07/28/2013 Inactive Levemir FlexTouch 100 unit/mL (3 mL) subcutaneous insulin pe n RxNorm: 834431 20 Unit(s) SQ QD No Start Date 04/30/2015 Inactive lisinopril 20 mg tablet RxNorm: 908057 1 Tablet(s) PO BID No Start Date 04/27/2013 Inactive Lantus Solostar SubQ RxNorm: Subcutaneous No Start Date 03/15/2013 I nactive Zantac 150 mg tablet RxNorm: 373088 1 Tablet(s) PO QHS No Start Date 10/11/2019 Inactive allopurinol 300 mg tablet RxNorm: 028840 1 Tablet(s) PO QD No Start Date 08/03/2014 Inactive Fish Oil 1,000 mg capsule RxNorm: 1 Capsule(s) PO QD No Start Date 02/21/2019 Inactive indomethacin 50 mg capsule RxNorm: 702800 1 Capsule(s) PO BID No St art Date 04/20/2018 Inactive levothyroxine 50 mcg tablet RxNorm: 311990 1 Tablet(s) PO QD No Sta rt Date 08/10/2014 Inactive glimepiride 4 mg tablet RxNorm: 937124 1 Tablet(s) PO BID No Start Date 03/15/2013 Inactive indomethacin 50 mg capsule RxNorm: 382044 1 Capsule(s) PO QHS No St art Date 04/27/2013 Inactive Medication Administered No Medication Administered data Immunizations Vaccine Codes Date Status Influenza CVX: 135 04/21/2018 Complete Influenza CVX: 135 04/22/2017 Complete Results Observation Observation Code Item Item Code Result Date S ervice Location [facility] 08620 Cholesterol 209 mg/dL 09/17/2016 Unkno wn [facility] 14333 Triglyceride 111 mg/dL 09/17/2016 Unkn own [facility] 29575 HDL CHOLESTEROL 50 mg/dL 09/17/2016 U nknown [facility] 53540 Chol/HDL Ratio 4.18 ratio 09/17/2016 U nknown [facility] 03012 NON-HDL Chol 159 mg/dL 09/17/2016 Unkn own [facility] 31942 LDL Cholesterol 137 mg/dL 09/17/2016 U nknown MEAN GLUC 4285318 Calc Mean Gluc 151 mg/dL 09/17/2016 Unkn own COMPREHENSIVE METABOLIC 45735 AST 23 U/L 2016 Unknown COMPREHENSIVE METABOLIC 20265 ALT 19 U/L 2016 Unknown COMPREHENSIVE METABOLIC 63628 BUN 15 mg/dL 2016 Unknown COMPREHENSIVE METABOLIC 99752 ALBUMIN 4.3 g/dL 2016 Unknown COMPREHENSIVE METABOLIC 13597 CHLORIDE 103 mmol/L 09/17 Unknown COMPREHENSIVE METABOLIC 24214 Bili Total 0.6 mg/dL 09/17 Unknown COMPREHENSIVE METABOLIC 99056 ALK PHOS 60 U/L 2016 Unknown COMPREHENSIVE METABOLIC 57496 SODIUM 140 mmol/L 09/17 Unknown COMPREHENSIVE METABOLIC 77703 CREATININE 1.03 mg/dL 09/04 Unknown COMPREHENSIVE METABOLIC 04330 CALCIUM 9.5 mg/dL 2016 Unknown COMPREHENSIVE METABOLIC 79310 POTASSIUM 3.9 mmol/L 09/17 Unknown COMPREHENSIVE METABOLIC 39235 Total Protein 6.9 g/dL Unknown COMPREHENSIVE METABOLIC 11029 Glucose 94 mg/dL 2016 Unknown COMPREHENSIVE METABOLIC 18511 Bicarbonate 28 mmol/L 09/04 Unknown COMPREHENSIVE METABOLIC 00374 AGAP 9 mmol/L 2016 Unknown GFR CALC 9900867 GFR Non Afr Amr >60 mL/min 09/17/2016 Un known GFR CALC 1199042 GFR Afr Amr >60 mL/min 09/17/2016 Unknow n THYROID STIMULATING HORMONE 00907 TSH 4.260 uIU/mL 09/17/2016 Unknown GLYCOSYLATED HEMOGLOBIN TEST 17785 Hgb A1c 62142-7 6.9 % 0 09/17/2016 Unknown FREE T4 46413 T4 Free 1.02 ng/dL 09/17/2016 Unknown COMPLETE BLOOD COUNT [id number] WBC 8.6 10e9/L 07/26/19 16 Unknown COMPLETE BLOOD COUNT [id number] RBC 4.86 10e12/L 2015 Unknown COMPLETE BLOOD COUNT 7569628 HGB 14.6 g/dL 6 Unknown COMPLETE BLOOD COUNT 1712183 HCT DET 43.1 % 6 Unknown COMPLETE BLOOD COUNT 8418523 MCV 88.7 fL 6 Unknown COMPLETE BLOOD COUNT 6087190 MCH 30.0 pg 6 Unknown COMPLETE BLOOD COUNT 9131135 MCHC 33.9 g/dL 6 Unknown COMPLETE BLOOD COUNT [id number] PLT 267 10e9/L 07/26/19 16 Unknown COMPLETE BLOOD COUNT 9583044 MPV 11.5 fL 6 Unknown COMPLETE BLOOD COUNT 8049211 SAM % 64.8 % 6 Unknown COMPLETE BLOOD COUNT 5506666 LY % 16.8 % 6 Unknown COMPLETE BLOOD COUNT [id number] MON % 12.5 % 6 Unknown COMPLETE BLOOD COUNT [id number] EOS % 5.6 % 6 Unknown COMPLETE BLOOD COUNT [id number] BASO % 0.3 % 6 Unknown COMPLETE BLOOD COUNT 9453776 RDW 13.4 % 6 Unknown COMPLETE BLOOD COUNT [id number] ABS SAM 5.57 10e9/L 016 Unknown COMPLETE BLOOD COUNT [id number] ABS LYMPH 1.44 10e9/L 016 Unknown COMPLETE BLOOD COUNT [id number] ABS MONO 1.08 10e9/L 016 Unknown COMPLETE BLOOD COUNT [id number] ABS EOS 0.48 10e9/L 016 Unknown COMPLETE BLOOD COUNT [id number] ABS BASO 0.03 10e9/L 016 Unknown COMPLETE BLOOD COUNT 1924884 RDW-SD 42.9 fL 6 Unknown PSA EQUIMOLAR MATT 02290 PSA EQ 0.78 NG/ML 6 Unknown THYROID STIMULATING HORMONE 48654 TSH 5.292 uIU/ML 07/26/2015 Unknown GLYCOSYLATED HEMOGLOBIN TEST 05648 A1C HPLC 37914-3 7.0 % 0 07/26/2015 Unknown GFR CALC 5250277 GFR AA >60 ML/MIN 07/26/2015 Unknown GFR CALC 9260327 GFR NON-AA >60 ML/MIN 07/26/2015 Unknown [facility] 73202 HDL TEST 64 MG/DL 07/26/2015 Unknown [facility] 82839 TRIG 58 MG/DL 07/26/2015 Unknown [facility] 36952 TEST LDL 49 MG/DL 07/26/2015 Unknown [facility] 10245 CHOL 125 MG/DL 07/26/2015 Unknown [facility] 55722 RCHOL/HDL 1.95 RATIO 07/26/2015 Unknow n [facility] GROUP 02903 NON-HDL CH 61 MG/DL 07/26/2015 Unknow n COMPREHENSIVE METABOLIC 78652 AST 25 U/L 2015 Unknown COMPREHENSIVE METABOLIC 67927 ALT 23 IU/L 2015 Unknown COMPREHENSIVE METABOLIC 02657 BUN 18 MG/DL 2015 Unknown COMPREHENSIVE METABOLIC 81421 ALBUMIN 4.6 GM/DL 2015 Unknown COMPREHENSIVE METABOLIC 21185 CHLORIDE 100 MMOL/L 07/26 Unknown COMPREHENSIVE METABOLIC 50585 BILI TOT 0.5 MG/DL 2015 Unknown COMPREHENSIVE METABOLIC 84618 ALK PHOS 49 U/L 2015 Unknown COMPREHENSIVE METABOLIC 80806 SODIUM 137 MMOL/L 07/26 Unknown COMPREHENSIVE METABOLIC 97729 CREATININE 1.06 MG/DL 07/08 Unknown COMPREHENSIVE METABOLIC 06151 CALCIUM 9.5 MG/DL 2015 Unknown COMPREHENSIVE METABOLIC 22449 POTASSIUM 4.5 MMOL/L 07/26 Unknown COMPREHENSIVE METABOLIC 86659 PROT TOT 6.5 GM/DL 2015 Unknown COMPREHENSIVE METABOLIC 97594 Glucose 109 MG/DL 2015 Unknown COMPREHENSIVE METABOLIC 09780 BICARB 29 MMOL/L 2015 Unknown COMPREHENSIVE METABOLIC 04413 ANION GAP 8 MEQ/L 2015 Unknown FREE T4 31738 FREE T4 1.11 NG/DL 07/26/2015 Unknown CULTURE & SENSITIVITY 93855 PROTEIN UR NEG 015 Unknown CULTURE & SENSITIVITY 18155 HEMGLBN UR TR 015 Unknown CULTURE & SENSITIVITY 42688 GLUCOSE UR NEG 015 Unknown CULTURE & SENSITIVITY 26748 KETONES UR NEG 015 Unknown CULTURE & SENSITIVITY 44874 PH U 6.5 01/25/20 15 Unknown CULTURE & SENSITIVITY 52927 SP GR U 1.013 01/25/20 15 Unknown CULTURE & SENSITIVITY 74993 BILRUBN UR NEG 015 Unknown CULTURE & SENSITIVITY 01160 LEUKO UR NEG 01/25/20 15 Unknown CULTURE & SENSITIVITY 77013 NITRITE UR NEG 015 Unknown MICR CUL? [id number] SP TO JOHANA? NO 01/24/2015 Unknown MICR CUL? 6630250 APPEAR UR NORMAL 01/24/2015 Unknown MICR CUL? 9653785 RBC/uL 2.2 01/24/2015 Unknown MICR CUL? 2169284 WBC/uL 2.8 01/24/2015 Unknown MICR CUL? 7296673 SQ EPI/uL 1.0 01/24/2015 Unknown MICR CUL? 0645060 HYALCST/uL 0.25 01/24/2015 Unknown MICR CUL? 8773735 WBC /HPF 1 01/24/2015 Unknown MICR CUL? 1962532 RBC /HPF 0 01/24/2015 Unknown GLYCOSYLATED HEMOGLOBIN TEST 59194 A1C HPLC 42891-9 6.6 % 0 01/17/2015 Unknown COMPLETE BLOOD COUNT 2934876 WBC 10.1 10e9/L 015 Unknown COMPLETE BLOOD COUNT [id number] RBC 4.60 10e12/L 2014 Unknown COMPLETE BLOOD COUNT 0307895 HGB 14.0 g/dL 5 Unknown COMPLETE BLOOD COUNT 8548966 HCT DET 39.9 % 5 Unknown COMPLETE BLOOD COUNT 8071935 MCV 86.7 fL 5 Unknown COMPLETE BLOOD COUNT 3011587 MCH 30.4 pg 5 Unknown COMPLETE BLOOD COUNT 4928848 MCHC 35.1 g/dL 5 Unknown COMPLETE BLOOD COUNT 3134735 PLT 252 10e9/L 01/18/20 15 Unknown COMPLETE BLOOD COUNT 2953119 MPV 11.4 fL 5 Unknown COMPLETE BLOOD COUNT 6885261 SAM % 72.9 % 5 Unknown COMPLETE BLOOD COUNT 9796741 LY % 13.6 % 5 Unknown COMPLETE BLOOD COUNT 4490146 MON % 10.2 % 5 Unknown COMPLETE BLOOD COUNT 8122719 EOS % 3.1 % 5 Unknown COMPLETE BLOOD COUNT 1468447 BASO % 0.2 % 5 Unknown COMPLETE BLOOD COUNT 9385048 RDW 13.6 % 5 Unknown COMPLETE BLOOD COUNT [id number] ABS SAM 7.36 10e9/L 015 Unknown COMPLETE BLOOD COUNT 7223429 ABS LYMPH 1.37 10e9/L 015 Unknown COMPLETE BLOOD COUNT 7241424 ABS MONO 1.03 10e9/L 015 Unknown COMPLETE BLOOD COUNT [id number] ABS EOS 0.31 10e9/L 015 Unknown COMPLETE BLOOD COUNT 7722543 ABS BASO 0.02 10e9/L 015 Unknown COMPLETE BLOOD COUNT 2674617 RDW-SD 42.4 fL 5 Unknown GFR CALC 0732301 GFR AA 51.0L ML/MIN 01/17/2015 Unknow n GFR CALC 3515180 GFR NON-AA 42.0L ML/MIN 01/17/2015 Unkno wn FREE T4 31219 FREE T4 1.30 NG/DL 01/17/2015 Unknown THYROID STIMULATING HORMONE 25763 TSH 4.029 uIU/ML 01/17/2015 Unknown COMPREHENSIVE METABOLIC 35297 AST 28 U/L 2014 Unknown COMPREHENSIVE METABOLIC 30748 ALT 25 IU/L 2014 Unknown COMPREHENSIVE METABOLIC 98366 BUN 21 MG/DL 2014 Unknown COMPREHENSIVE METABOLIC 06375 ALBUMIN 4.7 GM/DL 2014 Unknown COMPREHENSIVE METABOLIC 52297 CHLORIDE 102 MMOL/L 01/17 Unknown COMPREHENSIVE METABOLIC 78311 BILI TOT 0.6 MG/DL 2014 Unknown COMPREHENSIVE METABOLIC 76152 ALK PHOS 44 U/L 2014 Unknown COMPREHENSIVE METABOLIC 79165 SODIUM 137 MMOL/L 01/17 Unknown COMPREHENSIVE METABOLIC 61751 CREATININE 1.62 MG/DL 01/04 Unknown COMPREHENSIVE METABOLIC 87358 CALCIUM 9.7 MG/DL 2014 Unknown COMPREHENSIVE METABOLIC 90542 POTASSIUM 4.5 MMOL/L 01/17 Unknown COMPREHENSIVE METABOLIC 41310 PROT TOT 6.5 GM/DL 2014 Unknown COMPREHENSIVE METABOLIC 21762 Glucose 136 MG/DL 2014 Unknown COMPREHENSIVE METABOLIC 03789 BICARB 24 MMOL/L 2014 Unknown COMPREHENSIVE METABOLIC 19697 ANION GAP 11 MEQ/L 2014 Unknown VITAMIN B 12 49483 VIT B 12 482 PG/ML 01/17/2015 Unknow n URIC ACID 84430 URIC ACID 8.5 MG/DL 08/09/2014 Unknown COMPREHENSIVE METABOLIC 10215 AST 27 U/L 2014 Unknown COMPREHENSIVE METABOLIC 29300 ALT 26 IU/L 2014 Unknown COMPREHENSIVE METABOLIC 06085 BUN 17 MG/DL 2014 Unknown COMPREHENSIVE METABOLIC 69998 ALBUMIN 5.0 GM/DL 2014 Unknown COMPREHENSIVE METABOLIC 58713 CHLORIDE 101 MMOL/L 08/09 Unknown COMPREHENSIVE METABOLIC 55816 BILI TOT 0.7 MG/DL 2014 Unknown COMPREHENSIVE METABOLIC 63218 ALK PHOS 53 U/L 2014 Unknown COMPREHENSIVE METABOLIC 37328 SODIUM 136 MMOL/L 08/09 Unknown COMPREHENSIVE METABOLIC 40664 CREATININE 1.14 MG/DL 09/2014 Unknown COMPREHENSIVE METABOLIC 19121 CALCIUM 9.8 MG/DL 2014 Unknown COMPREHENSIVE METABOLIC 15670 POTASSIUM 4.1 MMOL/L 08/09 Unknown COMPREHENSIVE METABOLIC 20642 PROT TOT 7.5 GM/DL 2014 Unknown COMPREHENSIVE METABOLIC 36326 Glucose 110 MG/DL 2014 Unknown COMPREHENSIVE METABOLIC 99122 BICARB 30 MMOL/L 2014 Unknown COMPREHENSIVE METABOLIC 89650 ANION GAP 5 MEQ/L 2014 Unknown GFR CALC 1497772 GFR AA >60 ML/MIN 08/09/2014 Unknown GFR CALC 7148484 GFR NON-AA >60 ML/MIN 08/09/2014 Unknown FREE T4 38588 FREE T4 1.14 NG/DL 08/09/2014 Unknown GLYCOSYLATED HEMOGLOBIN TEST 52463 A1C HPLC 15030-3 6.8 % 0 08/09/2014 Unknown COMPLETE BLOOD COUNT 5440771 WBC 5.9 10e9/L 08/09/19 15 Unknown COMPLETE BLOOD COUNT 8005126 RBC 5.04 10e12/L 2014 Unknown COMPLETE BLOOD COUNT 5247973 HGB 15.2 g/dL 5 Unknown COMPLETE BLOOD COUNT 8520318 HCT DET 44.3 % 5 Unknown COMPLETE BLOOD COUNT 2751494 MCV 87.9 fL 5 Unknown COMPLETE BLOOD COUNT 8878314 MCH 30.2 pg 5 Unknown COMPLETE BLOOD COUNT 0949142 MCHC 34.3 g/dL 5 Unknown COMPLETE BLOOD COUNT 6163397 PLT 262 10e9/L 08/09/19 15 Unknown COMPLETE BLOOD COUNT 1730179 MPV 10.9 fL 5 Unknown COMPLETE BLOOD COUNT 2240141 SAM % 58.7 % 5 Unknown COMPLETE BLOOD COUNT 3556297 LY % 21.5 % 5 Unknown COMPLETE BLOOD COUNT [id number] MON % 14.0 % 5 Unknown COMPLETE BLOOD COUNT [id number] EOS % 5.3 % 5 Unknown COMPLETE BLOOD COUNT [id number] BASO % 0.5 % 5 Unknown COMPLETE BLOOD COUNT [id number] RDW 13.1 % 5 Unknown COMPLETE BLOOD COUNT [id number] ABS SAM 3.46 10e9/L 015 Unknown COMPLETE BLOOD COUNT [id number] ABS LYMPH 1.27 10e9/L 015 Unknown COMPLETE BLOOD COUNT [id number] ABS MONO 0.83 10e9/L 015 Unknown COMPLETE BLOOD COUNT [id number] ABS EOS 0.31 10e9/L 015 Unknown COMPLETE BLOOD COUNT [id number] ABS BASO 0.03 10e9/L 015 Unknown COMPLETE BLOOD COUNT [id number] RDW-SD 41.2 fL 5 Unknown THYROID STIMULATING HORMONE [id number] TSH 5.395 uIU/ML 08/09/2014 Unknown LIPID GROUP [id number] HDL TEST 52 MG/DL 08/09/2014 Unknown LIPID GROUP [id number] TRIG 113 MG/DL 08/09/2014 Unknown LIPID GROUP [id number] TEST LDL 158 MG/DL 08/09/2014 Unknown LIPID GROUP 43631 CHOL 233 MG/DL 08/09/2014 Unknown LIPID GROUP 46872 RCHOL/HDL 4.48 RATIO 08/09/2014 Unknow n LIPID GROUP 05846 NON-HDL CH 181 MG/DL 08/09/2014 Unknow n COMPLETE BLOOD COUNT [id number] WBC 6.8 10e9/L 09/09/19 14 Unknown COMPLETE BLOOD COUNT [id number] RBC 5.18 10e12/L 2013 Unknown COMPLETE BLOOD COUNT [id number] HGB 15.2 g/dL 4 Unknown COMPLETE BLOOD COUNT [id number] HCT DET 44.7 % 4 Unknown COMPLETE BLOOD COUNT [id number] MCV 86.3 fL 4 Unknown COMPLETE BLOOD COUNT [id number] MCH 29.3 pg 4 Unknown COMPLETE BLOOD COUNT [id number] MCHC 34.0 g/dL 4 Unknown COMPLETE BLOOD COUNT [id number] PLT 236 10e9/L 09/09/19 14 Unknown COMPLETE BLOOD COUNT [id number] MPV 11.0 fL 4 Unknown COMPLETE BLOOD COUNT [id number] SAM % 58.2 % 4 Unknown COMPLETE BLOOD COUNT [id number] LY % 21.9 % 4 Unknown COMPLETE BLOOD COUNT [id number] MON % 12.5 % 4 Unknown COMPLETE BLOOD COUNT [id number] EOS % 7.3 % 4 Unknown COMPLETE BLOOD COUNT [id number] BASO % 0.1 % 4 Unknown COMPLETE BLOOD COUNT [id number] RDW 13.6 % 4 Unknown COMPLETE BLOOD COUNT [id number] ABS SAM 3.96 10e9/L 014 Unknown COMPLETE BLOOD COUNT [id number] ABS LYMPH 1.49 10e9/L 014 Unknown COMPLETE BLOOD COUNT [id number] ABS MONO 0.85 10e9/L 014 Unknown COMPLETE BLOOD COUNT [id number] ABS EOS 0.50 10e9/L 014 Unknown COMPLETE BLOOD COUNT [id number] ABS BASO 0.01 10e9/L 014 Unknown COMPLETE BLOOD COUNT [id number] RDW-SD 42.3 fL 4 Unknown COMPREHENSIVE METABOLIC 32800 AST 27 U/L 2013 Unknown COMPREHENSIVE METABOLIC 13485 ALT 30 IU/L 2013 Unknown COMPREHENSIVE METABOLIC 32888 BUN 16 MG/DL 2013 Unknown COMPREHENSIVE METABOLIC 42697 ALBUMIN 4.9 GM/DL 2013 Unknown COMPREHENSIVE METABOLIC 84003 CHLORIDE 99 MMOL/L 2013 Unknown COMPREHENSIVE METABOLIC 99410 BILI TOT 0.7 MG/DL 2013 Unknown COMPREHENSIVE METABOLIC 88403 ALK PHOS 53 U/L 2013 Unknown COMPREHENSIVE METABOLIC 86542 SODIUM 137 MMOL/L 09/08 Unknown COMPREHENSIVE METABOLIC 40952 CREATININE 1.01 MG/DL 11/2013 Unknown COMPREHENSIVE METABOLIC 55563 CALCIUM 10.0 MG/DL 09/08 Unknown COMPREHENSIVE METABOLIC 26454 POTASSIUM 4.4 MMOL/L 09/08 Unknown COMPREHENSIVE METABOLIC 81325 PROT TOT 7.1 GM/DL 2013 Unknown COMPREHENSIVE METABOLIC 76855 Glucose 148 MG/DL 2013 Unknown COMPREHENSIVE METABOLIC 05574 BICARB 30 MMOL/L 2013 Unknown COMPREHENSIVE METABOLIC 85516 ANION GAP 8 MEQ/L 2013 Unknown GFR CALC 3496515 GFR AA >60 ML/MIN 09/08/2013 Unknown GFR CALC 7704291 GFR NON-AA >60 ML/MIN 09/08/2013 Unknown FREE T4 38759 FREE T4 1.08 NG/DL 09/08/2013 Unknown GLYCOSYLATED HEMOGLOBIN TEST 09649 A1C HPLC 42777-7 7.3 % 0 09/08/2013 Unknown THYROID STIMULATING HORMONE 94168 TSH 5.454 uIU/ML 09/08/2013 Unknown LIPID GROUP 35703 HDL TEST 59 MG/DL 09/08/2013 Unknown LIPID GROUP 97695 TRIG 92 MG/DL 09/08/2013 Unknown LIPID GROUP 94410 TEST LDL 83 MG/DL 09/08/2013 Unknown LIPID GROUP 66046 CHOL 160 MG/DL 09/08/2013 Unknown LIPID GROUP 76397 RCHOL/HDL 2.71 RATIO 09/08/2013 Unknow n VITAMIN B 12 FOLIC ACID 80941|99548 VIT B 12 467 PG/ML 12/2012 Unknown VITAMIN B 12 FOLIC ACID 05205|37529 FOLIC ACID 12.2 NG/ML Unknown VITAMIN B 12 FOLIC ACID 11724|29606 VIT B 12 467 PG/ML 12/2012 Unknown THYROID STIMULATING HORMONE 33466 TSH 4.557 uIU/ML 03/12/2013 Unknown HEMOGLOBIN A1C (GLYCOSYLATED) 6659183 A1C HPLC 40881-6 7.6 % 03/12/2013 Unknown VITAMIN D TOTAL (25 HYDROXY) 26027 VIT D TOTL 17 NG/ML 03/12/2013 Unknown FREE T4 44675 FREE T4 1.07 NG/DL 03/12/2013 Unknown URIC ACID 66718 URIC ACID 5.2 MG/DL 03/12/2013 Unknown Procedures Procedure Codes Date THER/PROPH/DIAG INJ SC/IM CPT-4: 75055 05/13/2019 TRIAMCINOLONE ACET INJ NOS CPT-4: J3301 05/13/2019 DEXAMETHASONE SODIUM PHOS CPT-4: J1100 05/13/2019 THER/PROPH/DIAG INJ SC/IM CPT-4: 44096 02/22/2019 TRIAMCINOLONE ACET INJ NOS CPT-4: J3301 02/22/2019 FLU VACC PRSV FREE INC ANTIG 65 AND OLDER CPT-4: 55451 04/21/2018 ADMIN INFLUENZA VIRUS VAC CPT-4: G0008 04/21/2018 PRESCRIP TRANSMIT VIA ERX SY CPT-4: G8553 04/21/2018 DESTRUCT PREMALG LESION (Cryosurgery) CPT-4: 93809 FLU VACC PRSV FREE INC ANTIG 65 AND OLDER CPT-4: 32899 04/22/2017 ADMIN INFLUENZA VIRUS VAC CPT-4: G0008 04/22/2017 PRESCRIP TRANSMIT VIA ERX SY CPT-4: G8553 10/10/2016 PRESCRIP TRANSMIT VIA ERX SY CPT-4: G8553 08/29/2015 ROUTINE VENIPUNCTURE CPT-4: 76274 07/26/2015 ASSAY OF FREE THYROXINE CPT-4: 93152 07/26/2015 ASSAY THYROID STIM HORMONE CPT-4: 94564 07/26/2015 COMPREHEN METABOLIC PANEL CPT-4: 91528 07/26/2015 COMPLETE CBC W/AUTO DIFF WBC CPT-4: 96677 07/26/2015 LIPID PANEL CPT-4: 48988 07/26/2015 ASSAY OF PSA TOTAL CPT-4: 25494 07/26/2015 A1C HPLC CPT-4: 94973 07/26/2015 ROUTINE VENIPUNCTURE CPT-4: 14414 01/17/2015 ASSAY OF FREE THYROXINE CPT-4: 50290 01/17/2015 ASSAY THYROID STIM HORMONE CPT-4: 36461 01/17/2015 COMPREHEN METABOLIC PANEL CPT-4: 69288 01/17/2015 COMPLETE CBC W/AUTO DIFF WBC CPT-4: 88622 01/17/2015 A1C HPLC CPT-4: 79932 01/17/2015 VITAMIN B-12 CPT-4: 53897 01/17/2015 PPPS, subseq visit CPT-4: G0439 08/04/2014 PRESCRIP TRANSMIT VIA ERX SY CPT-4: G8553 02/18/2014 FLUZONE, 5ML (Medicare) CPT-4: Q2038 07/22/2013 ADMIN INFLUENZA VIRUS VAC CPT-4: G0008 07/22/2013 PRESCRIP TRANSMIT VIA ERX SY CPT-4: G8553 04/28/2013 ROUTINE VENIPUNCTURE CPT-4: 18761 03/12/2013 VITAMIN D TOTAL (25 HYDROXY) CPT-4: 75692 03/12/2013 VITAMIN B 12 FOLIC ACID CPT-4: 26979|11900 03/12/2013 A1C GLYCOSYLATED HEMOGLOBIN TEST CPT-4: 44271 013 ASSAY OF BLOOD/URIC ACID CPT-4: 32590 03/12/2013 ASSAY OF FREE THYROXINE CPT-4: 99177 03/12/2013 ASSAY THYROID STIM HORMONE CPT-4: 41661 03/12/2013 CUR TOBACCO NON-USER CPT-4: G8457 03/11/2013 [...] 1: 156/70 Code: 8480-6 BMI: 35.0 Code: 26961-9 Heart Rate 1: 68 bpm Height: 5'10" Respiratory Rate: 20 bpm SpO2: 95% Tempera ture: 36.5 (C) / 97.7 (F) Weight: 244 lbs 04/21/2018 Blood Pressure 1: 124/80 Code: 8480-6 BMI: 34.4 Code: 88722-4 Heart Rate 1: 80 bpm Height: 5'10" Respiratory Rate: 20 bpm SpO2: 96% Tempera ture: 37.0 (C) / 98.6 (F) Weight: 240 lbs 01/06/2018 Blood Pressure 1: 138/82 Code: 8480-6 BMI: 33.9 Code: 74706-2 Heart Rate 1: 96 bpm Height: 5'10" Respiratory Rate: 24 bpm SpO2: 98% Tempera ture: 35.9 (C) / 96.6 (F) Weight: 236 lbs 10/22/2017 Blood Pressure 1: 144/70 Code: 8480-6 BMI: 34.7 Code: 13568-4 Heart Rate 1: 72 bpm Height: 5'10" Respiratory Rate: 20 bpm SpO2: 96% Tempera ture: 36.9 (C) / 98.4 (F) Weight: 242 lbs 04/22/2017 Blood Pressure 1: 146/82 Code: 8480-6 BMI: 32.9 Code: 86095-7 Heart Rate 1: 104 bpm Height: 5'10" Respiratory Rate: 20 bpm SpO2: 95% Tempera ture: 36.9 (C) / 98.5 (F) Weight: 229 lbs 10/10/2016 Blood Pressure 1: 124/64 Code: 8480-6 BMI: 32.9 Code: 24209-2 Heart Rate 1: 64 bpm Height: 5'10" [...] 1: 146/90 Code: 8480-6 BMI: 34.1 Code: 67202-2 Heart Rate 1: 80 bpm Height: 5'10" Respiratory Rate: 20 bpm Temperature: 36 .8 (C) / 98.2 (F) Weight: 238 lbs 01/17/2015 Blood Pressure 1: 116/60 Code: 8480-6 BMI: 32.7 Code: 78034-9 Heart Rate 1: 84 bpm Height: 5'10" Respiratory Rate: 20 bpm Temperature: 36 .7 (C) / 98.0 (F) Weight: 228 lbs 09/29/2014 Blood Pressure 1: 136/78 Code: 8480-6 BMI: 33.9 Code: 62910-3 Heart Rate 1: 80 bpm Height: 5'10" Respiratory Rate: 20 bpm Temperature: 36 .6 (C) / 97.9 (F) Weight: 236 lbs 08/04/2014 Blood Pressure 1: 132/70 Code: 8480-6 BMI: 32.9 Code: 51961-4 Heart Rate 1: 72 bpm Height: 5'10" Respiratory Rate: 20 bpm Temperature: 36 .7 (C) / 98.0 (F) Weight: 229 lbs 02/18/2014 Blood Pressure 1: 124/82 Code: 8480-6 Heart Rate 1: 82 bpm Respiratory Rate: 18 bpm Temperature: 36.4 (C) / 97.5 (F) Weight: 232 lbs 07/29/2013 Blood Pressure 1: 146/80 Code: 8480-6 BMI: 34.1 Code: 79471-4 Heart Rate 1: 64 bpm Height: 5'10" Respiratory Rate: 20 bpm Temperature: 36 .9 (C) / 98.5 (F) Weight: 238 lbs 05/26/2013 Blood Pressure 1: 142/90 Code: 8480-6 BMI: 34.0 Code: 82548-5 Heart Rate 1: 84 bpm Height: 5'10" Respiratory Rate: 20 bpm Temperature: 36 .7 (C) / 98.0 (F) Weight: 237 lbs 04/28/2013 Blood Pressure 1: 118/78 Code: 8480-6 BMI: 32.9 Code: 92362-4 Heart Rate 1: 74 bpm Height: 5'10" Respiratory Rate: 20 bpm Temperature: 36 .1 (C) / 97.0 (F) Weight: 229 lbs 03/11/2013 Blood Pressure 1: 146/80 Code: 8480-6 BMI: 31.5 Code: 67856-5 Heart Rate 1: 80 bpm Height: 6' [...] care Encounters Encounter Performer Location Codes Date ([id number]) OFFICE/OUTPATIENT VISIT EST Diagnosis: Other dyspnea and respiratory abnormality[ICD10: R06.09] Diagnosis: Obstructive sleep apnea[ICD10: G47.33] Diagnosis: Hypotension[ICD10: I95.9] Xiomara Bettencourt [facility] CPT -4: 42457 10/12/2019 ([id number]) OFFICE/OUTPATIENT VISIT EST Diagnosis: Upper respiratory infection[ICD10: J06.9] Pennie Pinonnoris Dinh MOICARLOS SEdvin ARELYSHAAN [employer] [facility] CPT-4: 82032 06/02/2019 ([id number]) OFFICE/OUTPATIENT VISIT EST Diagnosis: Sinusitis[ICD10: J32.9] Diagnosis: Allergic rhinitis[ICD10: J30.9] Pennie Pinondi XIOMARA SEdvin REEDER [employer] [facility] CPT-4: 16708 05/13/2019 ([id number]) OFFICE/OUTPATIENT VISIT EST Diagnosis: Pneumonia[ICD10: J18.9] Pennie Pinonnoris RENAEXIOMARA SEdvin ARELYND [employer] [facility] CPT-4: 80271 04/26/2019 ([id number]) OFFICE/OUTPATIENT VISIT EST Diagnosis: Acute sinusitis, unspecified[ICD10: J01.90] Pennie Pinonnoris RENAEXIOMARA SEdvin ARELYNDER [employer] [facility] CPT-4: 18890 02/22/2019 ([id number]) OFFICE/OUTPATIENT VISIT EST Diagnosis: Cervicalgia[ICD10: M54.2] Xiomara Gan ARELY STEPHANIE [employer] [facility] CPT-4: 64029 11/25/2018 ([id number]) OFFICE/OUTPATIENT VISIT EST Diagnosis: Acute sinusitis, unspecified[ICD10: J01.90] Diagnosis: Myalgia, unspecified site[ICD10: M79.10] Diagnosis: Cervicalgia[ICD10: M54.2] Xiomara [facility] CPT-4: 04024 11/19/2018 ([id number]) OFFICE/OUTPATIENT VISIT EST Diagnosis: Low back pain[ICD10: M54.5] Diagnosis: Essential (primary) hypertension[ICD10: I10] Diagnosis: 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, 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] Diagnosis: Paroxysmal atrial fibrillation[ICD10: I48.0] [facility]: 68790 07/22/2018 ([id number]) OFFICE/OUTPATIENT VISIT EST Diagnosis: Type 2 diabetes mellitus with diabetic neuropathy, unspecified[ICD10: E11.40] Diagnosis: Hyperlipidemia, unspecified[ICD10: E78.5] Diagnosis: Essential (primary) hypertension[ICD10: I10] Diagnosis: Chronic kidney disease, stage 1[ICD10: N18.1] Diagnosis: Benign prostatic hyperplasia with lower urinary tract symptoms[ICD10: N40.1] Diagnosis: FLU VACCINE[ICD10: Z23] Xiomara Gan [facility] CPT-4: 22967 04/21/2018 OFFICE/OUTPATIENT VISIT EST Diagnosis: Type 2 diabetes mellitus with hyperglycemia[ICD10: E11.65] Diagnosis: Essential (primary) hypertension[ICD10: I10] Diagnosis: Mixed hyperlipidemia[ICD10: E78.2] Diagnosis: Other fatigue[ICD10: R53.83] [facility] 30906 01/06/2018 ([id number]) OFFICE/OUTPATIENT VISIT EST Diagnosis: Type 2 diabetes mellitus with diabetic neuropathy, unspecified[ICD10: E11.40] Diagnosis: Essential (primary) hypertension[ICD10: I10] Diagnosis: Pain in right thigh[ICD10: M79.651] Diagnosis: Pain in left leg[ICD10: M79.605] Diagnosis: Localized swelling, mass and lump, left lower limb[ICD10: R22.42] Diagnosis: OSTEOARTHRISIS MULTI SITES[ICD10: M19.90] Diagnosis: FLU VACCINE[ICD10: Z23] Xiomara [facility] CPT-4: 33826 04/22/2017 ([id number]) OFFICE/OUTPATIENT VISIT EST Diagnosis: Essential (primary) hypertension[ICD10: I10] Diagnosis: Type 2 diabetes mellitus with hyperglycemia[ICD10: E11.65] Diagnosis: Angina pectoris, unspecified[ICD10: I20.9] [facility] CPT-[facility]: 07178 10/10/2016 ([id number]) OFFICE/OUTPATIENT VISIT EST Diagnosis: Cough[ICD10: R05] Diagnosis: Wheezing[ICD10: R06.2] Diagnosis: Chronic obstructive pulmonary disease, unspecified[ICD10: J44.9] Shannan [facility] CPT-4: 59530 08/31/2015 OFFICE/OUTPATIENT VISIT EST Diagnosis: Acute bronchitis, unspecified[ICD10: J20.9] Diagnosis: Wheezing[ICD10: R06.2] Kelsie [facility] CPT-4: 10423 08/29/2015 ([id number]) OFFICE/OUTPATIENT VISIT EST Diagnosis: Type 2 diabetes mellitus with diabetic neuropathy, unspecified[ICD10: E11.40] Diagnosis: Hyperlipidemia, unspecified[ICD10: E78.5] Diagnosis: Essential (primary) hypertension[ICD10: I10] Diagnosis: Encounter for general adult medical examination without abnormal findings[ICD10: Z00.00] [facility] CPT-[facility]: 55573 07/26/2015 OFFICE/OUTPATIENT VISIT EST Diagnosis: Type 2 diabetes mellitus with hyperglycemia[ICD10: E11.65] Diagnosis: Unspecified osteoarthritis, unspecified site[ICD10: M19.90] Diagnosis: Other instability, right knee[ICD10: M25.361] Kelsie [facility] CPT-4: 13762 07/24/2015 ([id number]) OFFICE/OUTPATIENT VISIT EST Diagnosis: Pain in leg, unspecified[ICD10: M79.606] Diagnosis: Type 2 diabetes mellitus with diabetic neuropathy, unspecified[ICD10: E11.40] Xiomara [facility] CPT-4: 06730 05/01/2015 ([id number]) OFFICE/OUTPATIENT VISIT EST Diagnosis: MALAISE AND FATIGUE[ICD9: 780.79] Diagnosis: 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, 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] Diagnosis: CAD[ICD9: 414.00] Diagnosis: ANEMIA NOS[ICD9: 285.9] Xiomara [facility] CPT-4: 54346 01/17/2015 ([id number]) OFFICE/OUTPATIENT VISIT EST Diagnosis: Skin lesion[ICD9: 709.9] Xiomara HAND [facility] CPT-4: 97403 09/29/2014 OFFICE/OUTPATIENT VISIT EST Diagnosis: GASTROENTERITIS[ICD9: 558.9] Diagnosis: GERD[ICD9: 530.81] Kelsie VanMessi XIOMARA [facility] CPT-4: 54192 02/18/2014 ([id number]) OFFICE/OUTPATIENT VISIT EST Diagnosis: 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I, UNCONTROLLED[ICD9: 250.02] Xiomara [facility] CPT-4: 43755 07/29/2013 ([id number]) OFFICE/OUTPATIENT VISIT EST Diagnosis: FLU VACCINE[ICD9: V04.81] Xiomara MCGEE NDER [facility] CPT-4: 41585 07/22/2013 ([id number]) OFFICE/OUTPATIENT VISIT EST Diagnosis: 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I, UNCONTROLLED[ICD9: 250.02] Diagnosis: HYPERTENSION[ICD9: 401.9] Xiomara MCGEE [facility] CPT-4: 60427 05/26/2013 ([id number]) OFFICE/OUTPATIENT VISIT EST Diagnosis: MONONEURITIS[ICD9: 355.9] Diagnosis: RESTLESS LEGS SYNDROME[ICD9: 333.94] Diagnosis: HYPERTENSION[ICD9: 401.9] Diagnosis: CAD[ICD9: 414.00] Diagnosis: Weakness[ICD9: 780.79] Xiomara Dolan [facility] CPT-4: 49156 04/28/2013 ([id number]) OFFICE/OUTPATIENT VISIT EST Diagnosis: 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[ICD9: 250.01] Diagnosis: MONONEURITIS[ICD9: 355.9] Diagnosis: HYPERLIPIDEMIA NEC/NOS[ICD9: 272.4] Diagnosis: CAD[ICD9: 414.00] Xiomara LARA DelphineEdvin [facility] CPT-4: 54841 03/12/2013 OFFICE/OUTPATIENT VISIT NEW Diagnosis: CAD[ICD9: 414.00] Diagnosis: HYPERLIPIDEMIA NEC/NOS[ICD9: 272.4] Diagnosis: HYPERTENSION[ICD9: 401.9] Diagnosis: Neuropathy[ICD9: 355.9] Diagnosis: RESTLESS LEGS SYNDROME[ICD9: 333.94] Xiomara Gan ARELYSHERITA [facility] CPT-4: 84514 03/11/2013 Plan of Care Planned Activity Notes [...] I95.9 10/12/2019 Appointment: Xi[facility] Betten[facility] [phone] [facility] [facility] 09/23/2019 Care Plan: COMPREHEN METABOLIC PANEL SERGEI NC : 44101-8 Pending 09/20/2019 Care Plan: LIPID PANEL LOINC : 06695-6 Pending 09/20/2019 Care Plan: A1C HPLC LOINC : 91794-3 Pending 09/20/2019 Care Plan: COMPLETE CBC W/AUTO DIFF WBC LOINC : 92056-1 Pending 09/20/2019 Visit Diagnosis Plan: Upper respiratory infection Disc ussion: discussed that most likely viral. push fluids and rest through the week. patient has left over levaquin at home (5 days worth). instructed patient to start taking if he gets worse later this week and to call us next week if no improvement. ICD-9 : 465.9 ICD-10 : J06.9 06/02/2019 Appointment: Pennie Pizarro [address] [place], [place] [email or web address] ACUTE ILLNESS 06/02/2019 Visit Diagnosis Plan: Allergic [...] ICD-10 : J30.9 05/13/2019 Appointment: Pennie Pizarro [address] [place], [place] [phone] ACUTE ILLNESS 05/13/2019 Appointment: Xiomara Bettencourt WPtel: [phone] [facility] US CANCELED 04/27/2019 Visit Diagnosis Plan: Pneumonia Discussion: will obtai n records from urgent care. instructed to finish out doxy. no rhonchi or crackles auscultated. symbicort sample given to patient with instructions to use bid. call office later this week with new or worsening symptoms. ICD-9 : 486 ICD-10 : J18.9 04/26/2019 Appointment: Pennie Pizarro [address] [place], [place] [phone] FOLLOW UP 04/26/2019 Visit Diagnosis Plan: Acute [...] : J01.90 02/22/2019 Appointment: Moira, Pennie R. [address] [place], [place] [id number] ACUTE ILLNESS 02/22/2019 Patient Education: prednisone- Opt[employer] Coupon [phone] [email or web address]/[email or web address] Completed 02/22/2019 Visit Diagnosis Plan: Cervicalgia Discussion: Check Ce rvical Spine X-ray Will likely need PT ICD-9 : 723.1 ICD-10 : M54.2 11/25/2018 Appointment: Xiomara Bettencourt WPtel: [phone] [facility] ACUTE ILLNESS 11/25/2018 Visit Plan: Saline nasal [...] Tyle... 11/19/2018 Appointment: Xiomara Bettencourt WPtel: [phone] [facility] ACUTE ILLNESS 11/19/2018 Patient Education: baclofen- [employer] Coupon [phone] [id number] [email or web address]/samplemd/resources/getResource/[email or web address] Completed 11/19/2018 Visit Diagnosis Plan: Paroxysmal atrial [...] I10 07/22/2018 Appointment: Xiomara Bettencourt [facility]el[facility] [phone] [facility] [facility] FOLLOW UP 07/22/2018 Visit Diagnosis [...] of flomax Call in 1 mo [facility] on how doing Follow Up: 4 months ICD-9 : 600.21 ICD-10 : N40.1 04/21/2018 Appointment: Xiomara Bettencourt WPtel[facility] [phone] [facility] FOLLOW UP 04/21/2018 Patient Education: Patient [...] ICD-10 : E78.2 01/06/2018 Appointment: Pennie Pizarro [address] [place] [address] MEDICATION REVIEW 01/06/2018 Patient Education: Patient Medication Summary Completed 01/06/2018 Appointment: Xiomara Bettencourt WPtel: [address] [place] [address] NO SHOW 01/05/2018 Appointment: Xiomara Bettencourt WPtel: [address] [place] [address] US CANCELED 12/31/2017 Visit Diagnosis Plan: Actinic keratosis Discussion: Cr yotherapy as above but will see derm if lesions do not resolve ICD-9 : 702.0 ICD-10 : L57.0 10/22/2017 Appointment: Xiomara Bettencourt WPtel: [address] [place] [address] ACUTE ILLNESS 10/22/2017 Patient Education: Patient Medication [...] E11.40 04/22/2017 Appointment: Xiomara Bettencourt [facility]Ptel[facility] [phone] [facility] [facility] FOLLOW UP 04/22/2017 Patient Education: Patient Medication Summary Completed 04/22/2017 Patient Education: Patient Medication Summary Completed 04/16/2017 Care Plan: COMPREHEN METABOLIC PANEL SERGEI NC : 47637-4 Pending 04/16/2017 Care Plan: LIPID PANEL LOINC : 54536-5 Pending 04/16/2017 Care Plan: CBC Pending 04/16/2017 Care Plan: A1C HPLC LOINC : 89027-7 Pending 04/16/2017 Referral: Inocencio Goodson WPtel: [phone] [facility] [id number] US Referral Appointment Confirmed 10/14/2016 Visit Diagnosis Plan: Type 2 diabetes mellitus with hy perglycemia Discussion: Continue toujeo Accuchecks BID Follow Up: 4 months ICD-9 : 250.02 ICD-10 : E11.65 10/10/2016 Visit Diagnosis Plan: Angina pectoris, unspecified Dis cussion: Continue imdur and see cardiology To ER if chest pain returns ICD-9 : 413.9 ICD-10 : I20.9 10/10/2016 Appointment: Xiomara Bettencourt WPtel: [address] [place] [address] FOLLOW UP 10/10/2016 Patient Education: Patient Medication Summary Completed 10/10/2016 Patient Education: Patient Medication Summary Completed 09/16/2016 Care Plan: COMPREHEN METABOLIC PANEL SERGEI NC : 39878-0 Pending 09/16/2016 Care Plan: ASSAY THYROID STIM HORMONE Pen ding 09/16/2016 Care Plan: ASSAY OF FREE THYROXINE Pendin g 09/16/2016 Care Plan: LIPID PANEL LOINC : 94025-1 Pending 09/16/2016 Care Plan: CBC Pending 09/16/2016 Care Plan: A1C HPLC LOINC : 83061-6 Pending 09/16/2016 Visit Plan: CXR now to further evaluate symptoms Suspect viral since he has been on 2 rounds of antibiotics If chronic lung disease evident, will consider keeping on symbicort nursing home Sample inhaler given today with instructions on use Continue oral prednisone, would like to avoid injection if possible considering his DM status and he is stable right now Continue albuterol PRN Will call with CXR results 08/31/2015 Appointment: Shannan Grimes [address] [place] [address] 08/31 confirmed- SP ACUTE ILLNESS 08/31/2015 Patient Education: Patient Medication Summary Completed 08/31/2015 Visit Plan: Albuterol INH via SVN every 4 hours Prednisone 20 mg PO BID Notify for worsening symptoms 08/29/2015 Appointment: Kelsie Grubbs WPtel: [address] [place], [place] [email or web address] ACUTE ILLNESS 08/29/2015 Patient Education: Patient Medication Summary Completed 08/29/2015 Appointment: Xiomara Bettencourt WPtel: [address] [place], [place] [phone] LAB 07/26/2015 Patient Education: Patient Medication Summary Completed 07/26/2015 Visit Plan: Return in am for fasting lab s - CBC, CMP, TSH, Free T4, HgbA1C Change Levemir to Toujeo - Continue 35 Units q am - sample given Start physical Therapy for increased quadriceps strengthening and decreased pain in knees, bilaterally. 07/24/2015 Appointment: Humera Kelsie Pushpa WPtel: [address] [place], [place] [phone] 07/21 appt confirmed cn FOLLOW UP 07/24/19 Appointment: DaPrabhakarKelsie dixon WPtel: [address] [place], [place] [phone] FOLLOW UP 07/24/2015 Patient Education: Patient Medication [...] with insulin 05/01/2015 Appointment: Xiomara Bettencourt WPtel: [address] [place], [place] [phone] 04/28 confirmed~sl ACUTE ILLNESS 05/01/2015 Patient Education: Patient Medication Summary Completed 05/01/2015 Patient Education: Patient Medication Summary Completed 01/19/2015 Care Plan: URINALYSIS AUTO W/O SCOPE SERGEI NC : 97081-8 Pending 01/19/2015 Visit Plan: I have went through his medi cations in past and stopped meds but he adjusts his meds on his own and has restarted some Stop Amaryl Once again discussed not using indomethacin routinely due to taking plavix and aspirin daily and mcc use is dangerous Check CBC, CMP, TSH, free T4, B12 and HbA1C Patient has seen Cardiology recently but no cardiac cath done--had chemical stress test 01/17/2015 Appointment: Xiomara Bettencourt WPtel: [address] [place], [place] [phone] 01/16 vm cn ACUTE ILLNESS 01/17/2015 Patient Education: Patient Medication Summary Completed 01/17/2015 Visit Plan: See Dr. Garvin for removal 09/29/2014 Appointment: Xiomara Bettencourt WPtel: [address] [place] [address] ACUTE ILLNESS 09/29/2014 Referral: Colt Garvin WPtel: [address] Referral Initiated 09/29/2014 Patient Education: Patient Medication Summary Completed 09/29/2014 Visit Plan: Check CBC, CMP, TSH, free T4 , HbA1C, Lipids Accuchecks daily alternating times Patient has been adjusting own meds and has not taken any cholesterol meds for sometime Will check into surgery on right knee at [facility] Check carotid dopplers 08/04/2014 Appointment: Xiomara Bettencourt WPtel: [address] [place] [address] Annual Well Visit 08/04/2014 Patient Education: Patient Medication Summary Completed 08/04/2014 Appointment: Kelsie Grubbs WPtel: [address] [place] [address] ACUTE ILLNESS 02/18/2014 Patient Education: Patient Medication Summary Completed 02/18/2014 Patient Education: [facility] - Saving AutoInj - 18+ - Dynamic Portal ID Completed 02/18/2014 Appointment: Xiomara Bettencourt WPtel: [address] [place] [address] LAB 09/08/2013 Visit Plan: Check fasting lab in 1mo Con tinue Lantus and accuchecks at least BID 07/29/2013 Appointment: Xiomara Bettencourt WPtel: [address] [place] [address] FOLLOW UP 07/29/2013 Patient Education: Patient Medication Summary Completed 07/29/2013 Appointment: Xiomara Bettencourt WPtel: [address] [place] [address] INJECTION 07/22/2013 Patient Education: Patient Medication Summary Completed 07/22/2013 Visit Plan: Pt has been self-adjusting m eds Stop metformin and amaryl Use Levemir 25u sc BID and call in 1wk with BS readings 05/26/2013 Appointment: Xi[facility]ara Bettencourt [facility] [phone] [id number] FO[facility] UP 05/26/2013 Patient Education: Patient Medication Summary Completed 05/26/2013 Visit Plan: DC Metformin Increase Lantus to 30u sc daily Change lisinopril to lisinopril HCT 20/25mg q AM Continue Gabapentin at current dose 04/28/2013 Appointment: Xiomara Bettencourt WPtel: [address] [place], [place] [phone] FOLLOW UP 04/28/2013 Patient Education: Patient Medication Summary Completed 04/28/2013 Appointment: Xiomara Bettencourt WPtel: [address] [place], [place] [phone] LAB 03/12/2013 Patient Education: Patient Medication Summary Completed 03/12/2013 Visit Plan: Trial of neurontin 400mg q H S Obtain most recent lab results Change levemir to lantus per pt request Pt goes for sleep study tonite 03/11/2013 Appointment: Xiomara Bettencourt WPtel: [phone] [id number] 02/01paperwork mailed 03/10 confirmed with spouse NEW PATIENT 11/2012 Patient Education: Patient Medication Summary Completed 03/11/2013 Instructions Comment . Saline nasal flushes prn. Tylenol/Motr in prn headache. Notify if persists/symptoms worsening. . 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 Check fasting [...]
--- OUTSIDE RECORDS SUMMARY | 2020-02-02 21:43 | XMS REPORT | CCD ---
Author Author Sheng Bettencourt D.O. Organization [facility] Address [address] [place] [address] Phone Care Team Providers Care Supervisor [employer] Name Role Phone PP Unavailable CCM Unavailable Summary Purpose Interface Exchange Insurance Providers Payer name Policy type / Coverage type Covered libertarian ID Effective Begin Date Effective End Date WPS MEDICARE PART B [place] Medicare Part B [id number] 2018 Unknown [facility] Medicare Part B [id number] 2018 Un known Family history Mother Diagnosis Age At Onset Diabetes mellitus Type 2 Unknown Hypercholesterolemia Unknown Father Diagnosis Age At Onset No Family Disease Entered N/A Social History Social History Element Codes Description Effective Dates Marital status Unknown 03/11/2013 Number of children Unknown 4 03/11/2013 Employment Unknown Retired 03/11/[address]: 8048140 Former smoker 03/11/[address]: 090361 Currently drinks alc ohol Socially 03/11/2013 Has [...] HFA 90 mcg/actuation aerosol inhaler RxNor m: 9996761 1-2 Puff(s) Inhalation as needed 10/12/2019 No Stop Date Active Zyrtec 10 mg tablet RxNorm: 6048323 1 Tablet(s) Oral QAM 10/12/2019 No Stop Date Active aspirin 81 mg tablet,delayed release RxNorm: 516426 1 Tablet(s) Oral QD 10/12/2019 No Stop Date Active Symbicort 160 mcg-4.5 mcg/actuation HFA aerosol inhaler RxNo rm: 2453013 2 Puff(s) Inhalation QD 10/12/2019 No Stop Date Active lisinopril 20 mg tablet RxNorm: 885324 1 Tablet(s) Oral QD 10/12/19 20 01/10/2020 Active simvastatin 20 mg tablet RxNorm: 904435 1 Tablet(s) Ora l QD Needs updated fasting labs 09/20/2019 12/19/2019 Active Needs updated fa sting labs before 90 day refill Flomax 0.4 mg capsule RxNorm: 436922 TAKE TWO CAPSULES BY MOUTH EVERY EVENING 08/03/2019 No Stop Date Active gabapentin 400 mg capsule RxNorm: 497981 TAKE ONE CAPSU LE BY MOUTH EVERY EVENING 08/02/2019 No Stop Date Active simvastatin 20 mg tablet RxNorm: 896548 1 Tablet(s) Ora l QD Needs updated fasting labs 07/21/2019 08/19/2019 Inactive Needs updated fa sting labs before 90 day refill simvastatin 20 mg tablet RxNorm: 857202 1 Tablet(s) Ora l QD Needs updated fasting labs 06/23/2019 07/20/2019 Inactive Needs updated fa sting labs before 90 day refill Flomax 0.4 mg capsule RxNorm: 061349 1 Capsule(s) Oral QD 9 No Stop Date Active Flomax 0.4 mg capsule RxNorm: 824071 TAKE TWO CAPSULES BY MOUTH EVERY EVENING 03/19/2019 05/12/2019 Inactive Augmentin 500 mg-125 mg tablet RxNorm: 821577 1 Tablet(s) PO BID 03/03/2019 Inactive baclofen 10 mg tablet RxNorm: 690542 TAKE ONE TABLET BY MOUTH EVERY NIGHT AT BEDTIME FOR PAIN OR SPASMS 01/14/2019 05/12/2019 Inactive Flomax 0.4 mg capsule RxNorm: 972992 TAKE TWO CAPSULES BY MOUTH EVERY EVENING 01/12/2019 03/18/2019 Inactive gabapentin 400 mg capsule RxNorm: 224745 1 Capsule(s) PO QPM 201806/27/2019 Inactive baclofen 10 mg tablet RxNorm: 740793 1 Tablet(s) PO QHS for my n/spasm 12/15/2018 01/13/2019 Inactive simvastatin 20 mg tablet RxNorm: 304124 TAKE ONE TABLET BY MOUT H DAILY 12/11/2018 06/22/2019 Inactive OneTouch Ultra Blue Test Strip RxNorm: Use 1 rigoberto t strip three times daily to check blood sugar (Dx:E11.65) 12/07/2018 No Stop Date Active gabapentin 400 mg capsule RxNorm: 519254 TAKE ONE CAPSU LE BY MOUTH EVERY EVENING 12/04/2018 12/29/2018 Inactive baclofen 10 mg tablet RxNorm: 420403 1 Tablet(s) PO QHS for my n/spasm 11/19/2018 12/15/2018 Inactive Flomax 0.4 mg capsule RxNorm: 155878 2 Capsule(s) PO QPM 09/15/2018 0 12/13/2018 Inactive WOULD LIKE 90DS!!! gabapentin 400 mg capsule RxNorm: 404505 TAKE ONE CAPSU LE BY MOUTH EVERY EVENING 07/21/2018 10/18/2018 Inactive simvastatin 20 mg tablet RxNorm: 054811 1 Tablet(s) PO QD 06/15/2018 12/10/2018 Inactive Flomax 0.4 mg capsule RxNorm: 333946 TAKE TWO CAPSULES BY MOUTH EVERY EVENING 06/02/2018 09/15/2018 Inactive WOULD LIKE 90DS!!! Flomax 0.4 mg capsule RxNorm: 398740 2 Capsule(s) PO QPM 04/21/2018 1 07/20/2017 Inactive simvastatin 20 mg tablet RxNorm: 498218 1 Tablet(s) PO QD Take 1 tablet by mouth daily. Patient due for labwork before further refill. 04/06/20182017 Inactive simvastatin 20 mg tablet RxNorm: 017081 Tablet(s) TAKE ONE TABLET BY MOUTH DAILY 03/25/2018 06/15/2018 Inactive simvastatin 20 mg tablet RxNorm: 970840 Tablet(s) TAKE ONE TABLET BY MOUTH DAILY due for appt 12/29/2017 03/25/2018 Inactive simvastatin 20 mg tablet RxNorm: 017077 TAKE ONE TABLET BY MOUT H DAILY 09/03/2017 12/29/2017 Inactive simvastatin 20 mg tablet RxNorm: 282981 1 Tablet(s) PO QD 10/22/2016 11/18/2018 Inactive isosorbide mononitrate ER 60 mg tablet,extended release 24 h r RxNorm: 450825 1 Tablet(s) PO QD 10/22/2016 04/21/2017 Inactive isosorbide mononitrate ER 60 mg tablet,extended release 24 h r RxNorm: 031432 1 Tablet(s) PO QD 10/10/2016 10/21/2016 Inactive simvastatin 20 mg tablet RxNorm: 647384 1 Tablet(s) PO QD 10/10/2016 10/21/2016 Inactive gabapentin 400 mg capsule RxNorm: 294820 1 Capsule(s) PO QPM 201609/20/2016 Inactive Toujeo SoloStar 300 unit/mL (1.5 mL) subcutaneous insulin pe n RxNorm: 3614124 35 Unit(s) SQ QAM 07/23/2016 07/22/2016 Inactive Toujeo SoloStar 300 unit/mL (1.5 mL) subcutaneous insulin pe n RxNorm: 4038997 40 Unit(s) SQ QAM 09/01/2015 No Stop Date Active Symbicort 160 mcg-4.5 mcg/actuation HFA aerosol inhaler RxNo rm: 7091476 2 Puff(s) INH BID 08/31/2015 09/09/2015 Inactive prednisone 20 mg tablet RxNorm: 337496 1 Tablet(s) PO BID 08/29/2015 09/02/2015 Inactive albuterol sulfate 2.5 mg/3 mL (0.083 %) solution for n ebulization RxNorm: 273010 1 Unit(s) INH Q4H as needed 08/29/2015 10/09/2016 Inactive levothyroxine 75 mcg tablet RxNorm: 105556 1 Tablet(s) PO QD 201507/27/2015 Inactive levothyroxine 75 mcg tablet RxNorm: 632257 1 Tablet(s) PO QD 201511/18/2018 Inactive levothyroxine 75 mcg tablet RxNorm: 651480 1 Tablet(s) PO QD 201507/27/2015 Inactive lisinopril 20 mg-hydrochlorothiazide 25 mg tablet RxNorm: 19 7887 TAKE ONE TABLET BY MOUTH EVERY MORNING. REPLACES PLAIN LISINOPRIL 03/06/2015 04/21/2017 Inactive lisinopril 20 mg-hydrochlorothiazide 25 mg tablet RxNorm: 19 7887 TAKE ONE TABLET BY MOUTH EVERY MORNING. REPLACES PLAIN LISINOPRIL 09/08/2014 03/05/2015 Inactive allopurinol 100 mg tablet RxNorm: 472435 1 Tablet(s) PO BID 015 10/09/2016 Inactive [SAVINGS FOR NON-COVERED YULIA -- BIN:[id number], PCN: [id number], Group: XXXXX, ID# [id number], Questions: . THIS IS NOT INSURANCE.] levothyroxine 50 mcg tablet RxNorm: 862535 1 Tablet(s) PO QD 201407/26/2015 Inactive [AttnRPh: Saving apply/adjud icate RxGRP:SG20 RxBIN:[id number] RxPCN:HT ID#:[id number]] Zegerid 40 mg-1.1 gram capsule RxNorm: 836123 1 Capsule(s) PO QD 03/03/2014 Inactive [AttnRPh: Saving apply/adjud icate RxGRP:SG20 RxBIN:[id number] RxPCN:HT ID#:[id number]] ondansetron 8 mg disintegrating tablet RxNorm: 743909 1 Tablet(s) PO Q8H as needed for [...] 07/28/2013 Inactive gabapentin 400 mg capsule RxNorm: 566966 1 Capsule(s) PO QPM 201207/28/2013 Inactive gabapentin 400 mg capsule RxNorm: 142555 1 Capsule(s) PO QPM 201206/26/2013 Inactive lisinopril 20 mg-hydrochlorothiazide 25 mg tablet RxNorm: 82 3971 1 Tablet(s) PO QAM replaces plain lisinopril 04/28/2013 07/29/2013 Inactive gabapentin 400 mg capsule RxNorm: 348823 1 Capsule(s) PO QPM 201204/27/2013 Inactive gabapentin 400 mg capsule RxNorm: 535778 1 Capsule(s) PO QPM 201203/10/2013 Inactive gabapentin 400 mg capsule RxNorm: 668137 1 Capsule(s) PO QPM 201203/14/2013 Inactive Lantus Solostar 100 unit/mL (3 mL) Sub-Q Insulin Pen RxNorm: 936660 20 Unit(s) SQ QPM 03/11/2013 03/15/2013 Inactive Toujeo SoloStar 300 unit/mL (1.5 mL) subcutaneous insulin pe n RxNorm: 2444671 35 Unit(s) SQ QAM No Start Date Active omeprazole 20 mg capsule,delayed release RxNorm: 368077 1 Capsu le(s) PO QD No Start Date Active isosorbide mononitrate ER 60 mg tablet,extended release 24 h r RxNorm: 231725 1 Tablet(s) PO QD No Start Date Active Eliquis 5 mg tablet RxNorm: 1567168 1 Tablet(s) PO BID No Start Date Active metformin 500 mg tablet RxNorm: 095088 1 Tablet(s) PO BID No Start Da te Active levothyroxine 50 mcg tablet RxNorm: 250434 1 Tablet(s) PO QD No Start Date Active Norvasc 10 mg tablet RxNorm: 898486 1 Tablet(s) PO QHS No Start Date Active Toujeo SoloStar 300 unit/mL (1.5 mL) subcutaneous insulin pe n RxNorm: 0884513 30 Unit(s) SQ QAM No Start Date Active glimepiride 4 mg tablet RxNorm: 045831 1 Tablet(s) PO QHS No Start Date 07/26/2015 Inactive allopurinol 100 mg tablet RxNorm: 199500 1 Tablet(s) PO BID No Star t Date 08/10/2014 Inactive Lantus Solostar 100 unit/mL (3 mL) subcutaneous insulin pen RxNorm: 921491 30 Unit(s) SQ QD No Start Date 08/03/2014 Inactive Levemir FlexTouch 100 unit/mL (3 mL) subcutaneous insulin pe n RxNorm: 723765 25 Unit(s) SQ QAM No Start Date 07/23/2015 Inactive Lantus 100 unit/mL Sub-Q RxNorm: 627851 30 Unit(s) SQ QHS No Start Date 05/25/2013 Inactive Lantus Solostar 100 unit/mL (3 mL) Sub-Q Insulin Pen RxNorm: 092894 20 Unit(s) SQ QPM No Start Date 03/10/2013 Inactive OneTouch Ultra Blue Test Strip RxNorm: Use 1 rigoberto t strip three times daily to check blood sugar (Dx:E11.65) No Start Date 12/06/2018 Inactive Levemir FlexTouch 100 unit/mL (3 mL) subcutaneous insulin pe n RxNorm: 764047 30- 35 Unit(s) SQ QAM No Start Date 07/23/2015 Inactive Levemir Flexpen 100 unit/mL (3 mL) solution subcutaneo us insulin pen RxNorm: 370455 20-25 Unit(s) SQ QD No Start Date 07/28/2013 Inactive lisinopril 20 mg tablet RxNorm: 620556 1 Tablet(s) PO QD No Start D ate 10/11/2019 Inactive indomethacin ER 75 mg capsule,extended release RxNorm: 36547 2 1 Capsule(s) PO QAM No Start Date 04/27/2013 Inactive indomethacin ER 75 mg capsule,extended release RxNorm: 70802 2 1 Capsule(s) PO QD No Start Date 01/16/2015 Inactive Chlortab-4 oral RxNorm: 283896 oral No Start Date 10/11/2019 Inac tive Vitamin D3 5,000 unit tablet RxNorm: 818829 1 Tablet(s) PO QD No St art Date 08/03/2014 Inactive Levemir Flexpen 100 unit/mL (3 mL) solution subcutaneo us insulin Pen RxNorm: 660539 20 Unit(s) SQ QHS No Start Date 03/10/2013 Inactive Vytorin 10 mg-40 mg tablet RxNorm: 0806254 1/2 Tablet(s) PO QD No S tart Date 04/20/2018 Inactive oxymetazoline-menthol 0.05 % nasal spray RxNorm: 9179503 Tyner N COTY No Start Date 10/11/2019 Inactive Patient states he ta kes every 10 hours Toujeo SoloStar 300 unit/mL (1.5 mL) subcutaneous insulin pe n RxNorm: 7775981 35 Unit(s) SQ QAM No Start Date 07/22/2016 Inactive Lantus Solostar 100 unit/mL (3 mL) subcutaneous insulin pen RxNorm: 047471 20 Unit(s) SQ QD No Start Date 08/03/2014 Inactive aspirin 81 mg tablet RxNorm: 953929 1 Tablet(s) PO QD No Start Date 0 08/03/2014 Inactive metformin 500 mg tablet RxNorm: 707682 1 Tablet(s) PO BID No Start Date 07/28/2013 Inactive glimepiride 4 mg tablet RxNorm: 763418 1 Tablet(s) PO BID No Start Date 01/16/2015 Inactive glimepiride 4 mg tablet RxNorm: 524818 1 Tablet(s) PO QD No Start D ate 08/03/2014 Inactive levothyroxine 25 mcg tablet RxNorm: 802837 1 Tablet(s) PO QD No Sta rt Date 08/10/2014 Inactive doxycycline oral RxNorm: 33317 oral No Start Date 05/12/2019 Inac tive aspirin 81 mg tablet RxNorm: 632289 1 Tablet(s) PO QD No Start Date 0 07/21/2018 Inactive isosorbide mononitrate ER 60 mg tablet,extended release 24 h r RxNorm: 486384 1 Tablet(s) PO BID No Start Date 01/16/2015 Inactive metformin 500 mg tablet RxNorm: 794081 1 Tablet(s) PO BID No Start Date 04/27/2013 Inactive Plavix 75 mg tablet RxNorm: 673448 1 Tablet(s) PO QD No Start Date Inactive glimepiride 4 mg tablet RxNorm: 443439 1 Tablet(s) PO QPM No Start Date 02/21/2019 Inactive Vytorin 10-40 10 mg-40 mg tablet RxNorm: 1561155 1 Tablet(s) PO QHS No Start Date 08/03/2014 Inactive indomethacin 50 mg capsule RxNorm: 105909 1 Capsule(s) PO QHS No St art Date 01/16/2015 Inactive glimepiride 4 mg tablet RxNorm: 535367 1 Tablet(s) PO BID No Start Date 07/28/2013 Inactive Levemir FlexTouch 100 unit/mL (3 mL) subcutaneous insulin pe n RxNorm: 960946 20 Unit(s) SQ QD No Start Date 04/30/2015 Inactive lisinopril 20 mg tablet RxNorm: 016837 1 Tablet(s) PO BID No Start Date 04/27/2013 Inactive Lantus Solostar SubQ RxNorm: Subcutaneous No Start Date 03/15/2013 I nactive Zantac 150 mg tablet RxNorm: 180607 1 Tablet(s) PO QHS No Start Date 10/11/2019 Inactive allopurinol 300 mg tablet RxNorm: 935590 1 Tablet(s) PO QD No Start Date 08/03/2014 Inactive Fish Oil 1,000 mg capsule RxNorm: 1 Capsule(s) PO QD No Start Date 02/21/2019 Inactive indomethacin 50 mg capsule RxNorm: 556533 1 Capsule(s) PO BID No St art Date 04/20/2018 Inactive levothyroxine 50 mcg tablet RxNorm: 232853 1 Tablet(s) PO QD No Sta rt Date 08/10/2014 Inactive glimepiride 4 mg tablet RxNorm: 752029 1 Tablet(s) PO BID No Start Date 03/15/2013 Inactive indomethacin 50 mg capsule RxNorm: 718262 1 Capsule(s) PO QHS No St art Date 04/27/2013 Inactive Medication Administered No Medication Administered data Immunizations Vaccine Codes Date Status Influenza CVX: 135 04/21/2018 Complete Influenza CVX: 135 04/22/2017 Complete Results Observation Observation Code Item Item Code Result Date S ervice Location [facility] 96337 Cholesterol 209 mg/dL 09/17/2016 Unkno wn [facility] 36594 Triglyceride 111 mg/dL 09/17/2016 Unkn own [facility] 32815 HDL CHOLESTEROL 50 mg/dL 09/17/2016 U nknown [facility] 16333 Chol/HDL Ratio 4.18 ratio 09/17/2016 U nknown [facility] 75071 NON-HDL Chol 159 mg/dL 09/17/2016 Unkn own [facility] 42042 LDL Cholesterol 137 mg/dL 09/17/2016 U nknown MEAN GLUC 2299115 Calc Mean Gluc 151 mg/dL 09/17/2016 Unkn own COMPREHENSIVE METABOLIC 44930 AST 23 U/L 2016 Unknown COMPREHENS[facility] METABOL[facility] 55487 ALT 19 U/L 2016 Unknown [facility] 53568 BUN 15 mg/dL 2016 Unknown [facility] 80101 ALBUMIN 4.3 g/dL 2016 Unknown COMPREHENSIVE METABOLIC 77656 CHLORIDE 103 mmol/L 09/17 Unknown [facility]PREHENS[facility] 98470 Bili Total 0.6 mg/dL 09/17 Unknown COMPREHENSIVE METABOLIC 90564 ALK PHOS 60 U/L 2016 Unknown COMPREHENSIVE METABOLIC 52989 SODIUM 140 mmol/L 09/17 Unknown COMPREHENSIVE METABOLIC 05469 CREATININE 1.03 mg/dL 09/04 Unknown COMPREHENSIVE METABOLIC 20062 CALCIUM 9.5 mg/dL 2016 Unknown COMPREHENSIVE METABOLIC 55029 POTASSIUM 3.9 mmol/L 09/17 Unknown COMPREHENSIVE METABOLIC 21401 Total Protein 6.9 g/dL Unknown COMPREHENSIVE METABOLIC 33311 Glucose 94 mg/dL 2016 Unknown COMPREHENSIVE METABOLIC 82318 Bicarbonate 28 mmol/L 09/04 Unknown COMPREHENSIVE METABOLIC 26844 AGAP 9 mmol/L 2016 Unknown GFR CALC 8899907 GFR Afr Amr >60 mL/min 09/17/2016 Unknow n GFR CALC 6760308 GFR Non Afr Amr >60 mL/min 09/17/2016 Un known THYROID STIMULATING HORMONE 71002 TSH 4.260 uIU/mL 09/17/2016 Unknown GLYCOSYLATED HEMOGLOBIN TEST 92715 Hgb A1c 22264-4 6.9 % 0 09/17/2016 Unknown FREE T4 54196 T4 Free 1.02 ng/dL 09/17/2016 Unknown COMPLETE BLOOD COUNT [id number] WBC 8.6 10e9/L 07/26/19 16 Unknown COMPLETE BLOOD COUNT [id number] RBC 4.86 10e12/L 2015 Unknown COMPLETE BLOOD COUNT 8345438 HGB 14.6 g/dL 6 Unknown COMPLETE BLOOD COUNT 6704104 HCT DET 43.1 % 6 Unknown COMPLETE BLOOD COUNT 6531181 MCV 88.7 fL 6 Unknown COMPLETE BLOOD COUNT 8293208 MCH 30.0 pg 6 Unknown COMPLETE BLOOD COUNT [id number] MCHC 33.9 g/dL 6 Unknown COMPLETE BLOOD COUNT 7328674 PLT 267 10e9/L 07/26/19 16 Unknown COMPLETE BLOOD COUNT 4127011 MPV 11.5 fL 6 Unknown COMPLETE BLOOD COUNT 9695407 SAM % 64.8 % 6 Unknown COMPLETE BLOOD COUNT 0463013 LY % 16.8 % 6 Unknown COMPLETE BLOOD COUNT 5779108 MON % 12.5 % 6 Unknown COMPLETE BLOOD COUNT 1497324 EOS % 5.6 % 6 Unknown COMPLETE BLOOD COUNT [id number] BASO % 0.3 % 6 Unknown COMPLETE BLOOD COUNT 3836504 RDW 13.4 % 6 Unknown COMPLETE BLOOD COUNT [id number] ABS SAM 5.57 10e9/L 016 Unknown COMPLETE BLOOD COUNT 2407526 ABS LYMPH 1.44 10e9/L 016 Unknown COMPLETE BLOOD COUNT 3891001 ABS MONO 1.08 10e9/L 016 Unknown COMPLETE BLOOD COUNT [id number] ABS EOS 0.48 10e9/L 016 Unknown COMPLETE BLOOD COUNT [id number] ABS BASO 0.03 10e9/L 016 Unknown COMPLETE BLOOD COUNT 7418789 RDW-SD 42.9 fL 6 Unknown PSA EQUIMOLAR MATT 26392 PSA EQ 0.78 NG/ML 6 Unknown THYROID STIMULATING HORMONE 70572 TSH 5.292 uIU/ML 07/26/2015 Unknown GLYCOSYLATED HEMOGLOBIN TEST 50781 A1C HPLC 66217-5 7.0 % 0 07/26/2015 Unknown GFR CALC 4803440 GFR AA >60 ML/MIN 07/26/2015 Unknown GFR CALC 0939802 GFR NON-AA >60 ML/MIN 07/26/2015 Unknown [facility] 14672 HDL TEST 64 MG/DL 07/26/2015 Unknown [facility] 38933 TRIG 58 MG/DL 07/26/2015 Unknown [facility] 48713 TEST LDL 49 MG/DL 07/26/2015 Unknown [facility] 33844 CHOL 125 MG/DL 07/26/2015 Unknown [facility] 37523 RCHOL/HDL 1.95 RATIO 07/26/2015 Unknow n [facility] 00754 NON-HDL CH 61 MG/DL 07/26/2015 Unknow n COMPREHENSIVE METABOLIC 01308 AST 25 U/L 2015 Unknown COMPREHENSIVE METABOLIC 56978 ALT 23 IU/L 2015 Unknown COMPREHENSIVE METABOLIC 75796 BUN 18 MG/DL 2015 Unknown COMPREHENSIVE METABOLIC 90749 ALBUMIN 4.6 GM/DL 2015 Unknown COMPREHENSIVE METABOLIC 77865 CHLORIDE 100 MMOL/L 07/26 Unknown COMPREHENSIVE METABOLIC 37788 BILI TOT 0.5 MG/DL 2015 Unknown COMPREHENSIVE METABOLIC 20743 ALK PHOS 49 U/L 2015 Unknown COMPREHENSIVE METABOLIC 10911 SODIUM 137 MMOL/L 07/26 Unknown COMPREHENSIVE METABOLIC 01148 CREATININE 1.06 MG/DL 07/08 Unknown COMPREHENSIVE METABOLIC 90727 CALCIUM 9.5 MG/DL 2015 Unknown COMPREHENSIVE METABOLIC 17586 POTASSIUM 4.5 MMOL/L 07/26 Unknown COMPREHENSIVE METABOLIC 88545 PROT TOT 6.5 GM/DL 2015 Unknown COMPREHENSIVE METABOLIC 47815 Glucose 109 MG/DL 2015 Unknown COMPREHENSIVE METABOLIC 00886 BICARB 29 MMOL/L 2015 Unknown COMPREHENSIVE METABOLIC 41910 ANION GAP 8 MEQ/L 2015 Unknown FREE T4 62189 FREE T4 1.11 NG/DL 07/26/2015 Unknown CULTURE & SENSITIVITY 45275 PROTEIN UR NEG 015 Unknown [facility] SENSITIVITY 65720 HEMGLBN UR TR 015 Unknown CULTURE & SENSITIVITY 66665 GLUCOSE UR NEG 015 Unknown [facility] SENSITIVITY 05041 KETONES UR NEG 015 Unknown CULTURE & SENSITIVITY 72526 PH U 6.5 01/25/20 15 Unknown CULTURE & SENSITIVITY 23964 SP GR U 1.013 01/25/20 15 Unknown [facility]ULTURE & SENSITIVITY 64268 BILRUBN UR NEG 015 Unknown CULTURE & SENSITIVITY 30099 LEUKO UR NEG 01/25/20 15 Unknown CULTURE & SENSITIVITY 98597 NITRITE UR NEG 015 Unknown MICR CUL? [id number] SP TO JOHANA? NO 01/24/2015 Unknown MICR CUL? [id number] APPEAR UR NORMAL 01/24/2015 Unknown MICR CUL? 7195589 RBC/uL 2.2 01/24/2015 Unknown MICR CUL? 0860527 WBC/uL 2.8 01/24/2015 Unknown MICR CUL? 3332618 SQ EPI/uL 1.0 01/24/2015 Unknown MICR CUL? 5634988 HYALCST/uL 0.25 01/24/2015 Unknown MICR CUL? 0361922 WBC /HPF 1 01/24/2015 Unknown MICR CUL? 0480688 RBC /HPF 0 01/24/2015 Unknown GLYCOSYLATED HEMOGLOBIN TEST 61079 A1C HPLC 53902-1 6.6 % 0 01/17/2015 Unknown COMPLETE BLOOD COUNT 8869686 WBC 10.1 10e9/L 015 Unknown COMPLETE BLOOD COUNT 0667212 RBC 4.60 10e12/L 2014 Unknown COMPLETE BLOOD COUNT 8762898 HGB 14.0 g/dL 5 Unknown COMPLETE BLOOD COUNT 8487680 HCT DET 39.9 % 5 Unknown COMPLETE BLOOD COUNT 0962481 MCV 86.7 fL 5 Unknown COMPLETE BLOOD COUNT 2873546 MCH 30.4 pg 5 Unknown COMPLETE BLOOD COUNT 9977153 MCHC 35.1 g/dL 5 Unknown COMPLETE BLOOD COUNT 4628147 PLT 252 10e9/L 01/18/20 15 Unknown COMPLETE BLOOD COUNT 3386096 MPV 11.4 fL 5 Unknown COMPLETE BLOOD COUNT 0011014 SAM % 72.9 % 5 Unknown COMPLETE BLOOD COUNT 0475379 LY % 13.6 % 5 Unknown COMPLETE BLOOD COUNT 6684909 MON % 10.2 % 5 Unknown COMPLETE BLOOD COUNT 7845273 EOS % 3.1 % 5 Unknown COMPLETE BLOOD COUNT 8814168 BASO % 0.2 % 5 Unknown COMPLETE BLOOD COUNT 9825719 RDW 13.6 % 5 Unknown COMPLETE BLOOD COUNT 2306147 ABS SAM 7.36 10e9/L 015 Unknown COMPLETE BLOOD COUNT 6928080 ABS LYMPH 1.37 10e9/L 015 Unknown COMPLETE BLOOD COUNT [id number] ABS MONO 1.03 10e9/L 015 Unknown COMPLETE BLOOD COUNT [id number] ABS EOS 0.31 10e9/L 015 Unknown COMPLETE BLOOD COUNT [id number] ABS BASO 0.02 10e9/L 015 Unknown COMPLETE BLOOD COUNT 4433131 RDW-SD 42.4 fL 5 Unknown GFR CALC 9113388 GFR AA 51.0L ML/MIN 01/17/2015 Unknow n GFR CALC 2014642 GFR NON-AA 42.0L ML/MIN 01/17/2015 Unkno wn FREE T4 06377 FREE T4 1.30 NG/DL 01/17/2015 Unknown THYROID STIMULATING HORMONE 67928 TSH 4.029 uIU/ML 01/17/2015 Unknown COMPREHENSIVE METABOLIC 47760 AST 28 U/L 2014 Unknown COMPREHENSIVE METABOLIC 78728 ALT 25 IU/L 2014 Unknown COMPREHENSIVE METABOLIC 84233 BUN 21 MG/DL 2014 Unknown COMPREHENSIVE METABOLIC 10472 ALBUMIN 4.7 GM/DL 2014 Unknown COMPREHENSIVE METABOLIC 85476 CHLORIDE 102 MMOL/L 01/17 Unknown COMPREHENSIVE METABOLIC 58535 BILI TOT 0.6 MG/DL 2014 Unknown COMPREHENSIVE METABOLIC 80452 ALK PHOS 44 U/L 2014 Unknown COMPREHENSIVE METABOLIC 34243 SODIUM 137 MMOL/L 01/17 Unknown COMPREHENSIVE METABOLIC 52883 CREATININE 1.62 MG/DL 01/04 Unknown COMPREHENSIVE METABOLIC 60609 CALCIUM 9.7 MG/DL 2014 Unknown COMPREHENSIVE METABOLIC 89964 POTASSIUM 4.5 MMOL/L 01/17 Unknown COMPREHENSIVE METABOLIC 86213 PROT TOT 6.5 GM/DL 2014 Unknown COMPREHENSIVE METABOLIC 58897 Glucose 136 MG/DL 2014 Unknown COMPREHENSIVE METABOLIC 94541 BICARB 24 MMOL/L 2014 Unknown COMPREHENSIVE METABOLIC 45045 ANION GAP 11 MEQ/L 2014 Unknown VITAMIN B 12 87884 VIT B 12 482 PG/ML 01/17/2015 Unknow n URIC ACID 99471 URIC ACID 8.5 MG/DL 08/09/2014 Unknown COMPREHENSIVE METABOLIC 93122 AST 27 U/L 2014 Unknown COMPREHENSIVE METABOLIC 54559 ALT 26 IU/L 2014 Unknown COMPREHENSIVE METABOLIC 64966 BUN 17 MG/DL 2014 Unknown COMPREHENSIVE METABOLIC 62487 ALBUMIN 5.0 GM/DL 2014 Unknown COMPREHENSIVE METABOLIC 99086 CHLORIDE 101 MMOL/L 08/09 Unknown COMPREHENSIVE METABOLIC 55257 BILI TOT 0.7 MG/DL 2014 Unknown COMPREHENSIVE METABOLIC 29240 ALK PHOS 53 U/L 2014 Unknown COMPREHENSIVE METABOLIC 94272 SODIUM 136 MMOL/L 08/09 Unknown COMPREHENSIVE METABOLIC 67272 CREATININE 1.14 MG/DL 09/2014 Unknown COMPREHENSIVE METABOLIC 26603 CALCIUM 9.8 MG/DL 2014 Unknown COMPREHENSIVE METABOLIC 63057 POTASSIUM 4.1 MMOL/L 08/09 Unknown COMPREHENSIVE METABOLIC 76094 PROT TOT 7.5 GM/DL 2014 Unknown COMPREHENSIVE METABOLIC 67098 Glucose 110 MG/DL 2014 Unknown COMPREHENSIVE METABOLIC 89186 BICARB 30 MMOL/L 2014 Unknown COMPREHENSIVE METABOLIC 19322 ANION GAP 5 MEQ/L 2014 Unknown GFR CALC 5742101 GFR AA >60 ML/MIN 08/09/2014 Unknown GFR CALC 0948859 GFR NON-AA >60 ML/MIN 08/09/2014 Unknown FREE T4 04376 FREE T4 1.14 NG/DL 08/09/2014 Unknown GLYCOSYLATED HEMOGLOBIN TEST 59235 A1C HPLC 76237-4 6.8 % 0 08/09/2014 Unknown COMPLETE BLOOD COUNT [id number] WBC 5.9 10e9/L 08/09/19 15 Unknown COMPLETE BLOOD COUNT [id number] RBC 5.04 10e12/L 2014 Unknown COMPLETE BLOOD COUNT 9690509 HGB 15.2 g/dL 5 Unknown COMPLETE BLOOD COUNT 8363816 HCT DET 44.3 % 5 Unknown COMPLETE BLOOD COUNT 2792185 MCV 87.9 fL 5 Unknown COMPLETE BLOOD COUNT 1954846 MCH 30.2 pg 5 Unknown COMPLETE BLOOD COUNT 5523938 MCHC 34.3 g/dL 5 Unknown COMPLETE BLOOD COUNT 7605288 PLT 262 10e9/L 08/09/19 15 Unknown COMPLETE BLOOD COUNT 0630687 MPV 10.9 fL 5 Unknown COMPLETE BLOOD COUNT 5185564 SAM % 58.7 % 5 Unknown COMPLETE BLOOD COUNT 8984111 LY % 21.5 % 5 Unknown COMPLETE BLOOD COUNT 7871955 MON % 14.0 % 5 Unknown COMPLETE BLOOD COUNT 2520341 EOS % 5.3 % 5 Unknown COMPLETE BLOOD COUNT [id number] BASO % 0.5 % 5 Unknown COMPLETE BLOOD COUNT [id number] RDW 13.1 % 5 Unknown COMPLETE BLOOD COUNT [id number] ABS SAM 3.46 10e9/L 015 Unknown COMPLETE BLOOD COUNT [id number] ABS LYMPH 1.27 10e9/L 015 Unknown COMPLETE BLOOD COUNT [id number] ABS MONO 0.83 10e9/L 015 Unknown COMPLETE BLOOD COUNT [id number] ABS EOS 0.31 10e9/L 015 Unknown COMPLETE BLOOD COUNT [id number] ABS BASO 0.03 10e9/L 015 Unknown COMPLETE BLOOD COUNT [id number] RDW-SD 41.2 fL 5 Unknown THYROID STIMULATING HORMONE [id number] TSH 5.395 uIU/ML 08/09/2014 Unknown LIPID GROUP [id number] HDL TEST 52 MG/DL 08/09/2014 Unknown LIPID GROUP [id number] TRIG 113 MG/DL 08/09/2014 Unknown LIPID GROUP [id number] TEST LDL 158 MG/DL 08/09/2014 Unknown LIPID GROUP [id number] CHOL 233 MG/DL 08/09/2014 Unknown LIPID GROUP 93051 RCHOL/HDL 4.48 RATIO 08/09/2014 Unknow n LIPID GROUP 25120 NON-HDL CH 181 MG/DL 08/09/2014 Unknow n COMPLETE BLOOD COUNT [id number] WBC 6.8 10e9/L 09/09/19 14 Unknown COMPLETE BLOOD COUNT [id number] RBC 5.18 10e12/L 2013 Unknown COMPLETE BLOOD COUNT [id number] HGB 15.2 g/dL 4 Unknown COMPLETE BLOOD COUNT [id number] HCT DET 44.7 % 4 Unknown COMPLETE BLOOD COUNT [id number] MCV 86.3 fL 4 Unknown COMPLETE BLOOD COUNT [id number] MCH 29.3 pg 4 Unknown COMPLETE BLOOD COUNT [id number] MCHC 34.0 g/dL 4 Unknown COMPLETE BLOOD COUNT [id number] PLT 236 10e9/L 09/09/19 14 Unknown COMPLETE BLOOD COUNT [id number] MPV 11.0 fL 4 Unknown COMPLETE BLOOD COUNT [id number] SAM % 58.2 % 4 Unknown COMPLETE BLOOD COUNT [id number] LY % 21.9 % 4 Unknown COMPLETE BLOOD COUNT [id number] MON % 12.5 % 4 Unknown COMPLETE BLOOD COUNT [id number] EOS % 7.3 % 4 Unknown COMPLETE BLOOD COUNT [id number] BASO % 0.1 % 4 Unknown COMPLETE BLOOD COUNT [id number] RDW 13.6 % 4 Unknown COMPLETE BLOOD COUNT [id number] ABS SAM 3.96 10e9/L 014 Unknown COMPLETE BLOOD COUNT [id number] ABS LYMPH 1.49 10e9/L 014 Unknown COMPLETE BLOOD COUNT [id number] ABS MONO 0.85 10e9/L 014 Unknown COMPLETE BLOOD COUNT [id number] ABS EOS 0.50 10e9/L 014 Unknown COMPLETE BLOOD COUNT [id number] ABS BASO 0.01 10e9/L 014 Unknown COMPLETE BLOOD COUNT [id number] RDW-SD 42.3 fL 4 Unknown COMPREHENSIVE METABOLIC 22879 AST 27 U/L 2013 Unknown COMPREHENSIVE METABOLIC 78321 ALT 30 IU/L 2013 Unknown COMPREHENSIVE METABOLIC 46916 BUN 16 MG/DL 2013 Unknown COMPREHENSIVE METABOLIC 36659 ALBUMIN 4.9 GM/DL 2013 Unknown COMPREHENSIVE METABOLIC 16840 CHLORIDE 99 MMOL/L 2013 Unknown COMPREHENSIVE METABOLIC 91076 BILI TOT 0.7 MG/DL 2013 Unknown COMPREHENSIVE METABOLIC 55217 ALK PHOS 53 U/L 2013 Unknown COMPREHENSIVE METABOLIC 92611 SODIUM 137 MMOL/L 09/08 Unknown COMPREHENSIVE METABOLIC 10328 CREATININE 1.01 MG/DL 11/2013 Unknown COMPREHENSIVE METABOLIC 01132 CALCIUM 10.0 MG/DL 09/08 Unknown COMPREHENSIVE METABOLIC 13429 POTASSIUM 4.4 MMOL/L 09/08 Unknown COMPREHENSIVE METABOLIC 77582 PROT TOT 7.1 GM/DL 2013 Unknown COMPREHENSIVE METABOLIC 97331 Glucose 148 MG/DL 2013 Unknown COMPREHENSIVE METABOLIC 28679 BICARB 30 MMOL/L 2013 Unknown COMPREHENSIVE METABOLIC 95168 ANION GAP 8 MEQ/L 2013 Unknown GFR CALC 9977883 GFR AA >60 ML/MIN 09/08/2013 Unknown GFR CALC 2567617 GFR NON-AA >60 ML/MIN 09/08/2013 Unknown FREE T4 00746 FREE T4 1.08 NG/DL 09/08/2013 Unknown GLYCOSYLATED HEMOGLOBIN TEST 54039 A1C HPLC 14731-6 7.3 % 0 09/08/2013 Unknown THYROID STIMULATING HORMONE 66871 TSH 5.454 uIU/ML 09/08/2013 Unknown LIPID GROUP 10173 HDL TEST 59 MG/DL 09/08/2013 Unknown LIPID GROUP 77193 TRIG 92 MG/DL 09/08/2013 Unknown LIPID GROUP 60312 TEST LDL 83 MG/DL 09/08/2013 Unknown LIPID GROUP 07597 CHOL 160 MG/DL 09/08/2013 Unknown LIPID GROUP 98868 RCHOL/HDL 2.71 RATIO 09/08/2013 Unknow n VITAMIN B 12 FOLIC ACID 56854|46859 VIT B 12 467 PG/ML 12/2012 Unknown VITAMIN B 12 FOLIC ACID 66574|17302 FOLIC ACID 12.2 NG/ML Unknown VITAMIN B 12 FOLIC ACID 11453|86507 VIT B 12 467 PG/ML 12/2012 Unknown THYROID STIMULATING HORMONE 06407 TSH 4.557 uIU/ML 03/12/2013 Unknown HEMOGLOBIN A1C (GLYCOSYLATED) 5562209 A1C HPLC 94733-7 7.6 % 03/12/2013 Unknown VITAMIN D TOTAL (25 HYDROXY) 83323 VIT D TOTL 17 NG/ML 03/12/2013 Unknown FREE T4 36393 FREE T4 1.07 NG/DL 03/12/2013 Unknown URIC ACID 34377 URIC ACID 5.2 MG/DL 03/12/2013 Unknown Procedures Procedure Codes Date THER/PROPH/DIAG INJ SC/IM CPT-4: 17893 05/13/2019 TRIAMCINOLONE ACET INJ NOS CPT-4: J3301 05/13/2019 DEXAMETHASONE SODIUM PHOS CPT-4: J1100 05/13/2019 THER/PROPH/DIAG INJ SC/IM CPT-4: 05479 02/22/2019 TRIAMCINOLONE ACET INJ NOS CPT-4: J3301 02/22/2019 FLU VACC PRSV FREE INC ANTIG 65 AND OLDER CPT-4: 72107 04/21/2018 ADMIN INFLUENZA VIRUS VAC CPT-4: G0008 04/21/2018 PRESCRIP TRANSMIT VIA ERX SY CPT-4: G8553 04/21/2018 DESTRUCT PREMALG LESION (Cryosurgery) CPT-4: 18356 FLU VACC PRSV FREE INC ANTIG 65 AND OLDER CPT-4: 44455 04/22/2017 ADMIN INFLUENZA VIRUS VAC CPT-4: G0008 04/22/2017 PRESCRIP TRANSMIT VIA ERX SY CPT-4: G8553 10/10/2016 PRESCRIP TRANSMIT VIA ERX SY CPT-4: G8553 08/29/2015 ROUTINE VENIPUNCTURE CPT-4: 97483 07/26/2015 ASSAY OF FREE THYROXINE CPT-4: 03509 07/26/2015 ASSAY THYROID STIM HORMONE CPT-4: 72673 07/26/2015 COMPREHEN METABOLIC PANEL CPT-4: 39823 07/26/2015 COMPLETE CBC W/AUTO DIFF WBC CPT-4: 98783 07/26/2015 LIPID PANEL CPT-4: 51842 07/26/2015 ASSAY OF PSA TOTAL CPT-4: 89878 07/26/2015 A1C HPLC CPT-4: 53168 07/26/2015 ROUTINE VENIPUNCTURE CPT-4: 94004 01/17/2015 ASSAY OF FREE THYROXINE CPT-4: 65188 01/17/2015 ASSAY THYROID STIM HORMONE CPT-4: 73432 01/17/2015 COMPREHEN METABOLIC PANEL CPT-4: 85381 01/17/2015 COMPLETE CBC W/AUTO DIFF WBC CPT-4: 32605 01/17/2015 A1C HPLC CPT-4: 47405 01/17/2015 VITAMIN B-12 CPT-4: 74037 01/17/2015 PPPS, subseq visit CPT-4: G0439 08/04/2014 PRESCRIP TRANSMIT VIA ERX SY CPT-4: G8553 02/18/2014 FLUZONE, 5ML (Medicare) CPT-4: Q2038 07/22/2013 ADMIN INFLUENZA VIRUS VAC CPT-4: G0008 07/22/2013 PRESCRIP TRANSMIT VIA ERX SY CPT-4: G8553 04/28/2013 ROUTINE VENIPUNCTURE CPT-4: 86519 03/12/2013 VITAMIN D TOTAL (25 HYDROXY) CPT-4: 49594 03/12/2013 VITAMIN B 12 FOLIC ACID CPT-4: 84029|36193 03/12/2013 A1C GLYCOSYLATED HEMOGLOBIN TEST CPT-4: 64391 013 ASSAY OF BLOOD/URIC ACID CPT-4: 84813 03/12/2013 ASSAY OF FREE THYROXINE CPT-4: 03708 03/12/2013 ASSAY THYROID STIM HORMONE CPT-4: 15284 03/12/2013 CUR TOBACCO NON-USER CPT-4: G8457 03/11/2013 [...] 1: 156/70 Code: 8480-6 BMI: 35.0 Code: 39224-6 Heart Rate 1: 68 bpm Height: 5'10" Respiratory Rate: 20 bpm SpO2: 95% Tempera ture: 36.5 (C) / 97.7 (F) Weight: 244 lbs 04/21/2018 Blood Pressure 1: 124/80 Code: 8480-6 BMI: 34.4 Code: 06608-9 Heart Rate 1: 80 bpm Height: 5'10" Respiratory Rate: 20 bpm SpO2: 96% Tempera ture: 37.0 (C) / 98.6 (F) Weight: 240 lbs 01/06/2018 Blood Pressure 1: 138/82 Code: 8480-6 BMI: 33.9 Code: 67391-6 Heart Rate 1: 96 bpm Height: 5'10" Respiratory Rate: 24 bpm SpO2: 98% Tempera ture: 35.9 (C) / 96.6 (F) Weight: 236 lbs 10/22/2017 Blood Pressure 1: 144/70 Code: 8480-6 BMI: 34.7 Code: 50642-4 Heart Rate 1: 72 bpm Height: 5'10" Respiratory Rate: 20 bpm SpO2: 96% Tempera ture: 36.9 (C) / 98.4 (F) Weight: 242 lbs 04/22/2017 Blood Pressure 1: 146/82 Code: 8480-6 BMI: 32.9 Code: 89901-0 Heart Rate 1: 104 bpm Height: 5'10" Respiratory Rate: 20 bpm SpO2: 95% Tempera ture: 36.9 (C) / 98.5 (F) Weight: 229 lbs 10/10/2016 Blood Pressure 1: 124/64 Code: 8480-6 BMI: 32.9 Code: 56082-7 Heart Rate 1: 64 bpm Height: 5'10" [...] 1: 146/90 Code: 8480-6 BMI: 34.1 Code: 38620-2 Heart Rate 1: 80 bpm Height: 5'10" Respiratory Rate: 20 bpm Temperature: 36 .8 (C) / 98.2 (F) Weight: 238 lbs 01/17/2015 Blood Pressure 1: 116/60 Code: 8480-6 BMI: 32.7 Code: 65512-0 Heart Rate 1: 84 bpm Height: 5'10" Respiratory Rate: 20 bpm Temperature: 36 .7 (C) / 98.0 (F) Weight: 228 lbs 09/29/2014 Blood Pressure 1: 136/78 Code: 8480-6 BMI: 33.9 Code: 27827-6 Heart Rate 1: 80 bpm Height: 5'10" Respiratory Rate: 20 bpm Temperature: 36 .6 (C) / 97.9 (F) Weight: 236 lbs 08/04/2014 Blood Pressure 1: 132/70 Code: 8480-6 BMI: 32.9 Code: 67153-2 Heart Rate 1: 72 bpm Height: 5'10" Respiratory Rate: 20 bpm Temperature: 36 .7 (C) / 98.0 (F) Weight: 229 lbs 02/18/2014 Blood Pressure 1: 124/82 Code: 8480-6 Heart Rate 1: 82 bpm Respiratory Rate: 18 bpm Temperature: 36.4 (C) / 97.5 (F) Weight: 232 lbs 07/29/2013 Blood Pressure 1: 146/80 Code: 8480-6 BMI: 34.1 Code: 67611-4 Heart Rate 1: 64 bpm Height: 5'10" Respiratory Rate: 20 bpm Temperature: 36 .9 (C) / 98.5 (F) Weight: 238 lbs 05/26/2013 Blood Pressure 1: 142/90 Code: 8480-6 BMI: 34.0 Code: 93626-3 Heart Rate 1: 84 bpm Height: 5'10" Respiratory Rate: 20 bpm Temperature: 36 .7 (C) / 98.0 (F) Weight: 237 lbs 04/28/2013 Blood Pressure 1: 118/78 Code: 8480-6 BMI: 32.9 Code: 64342-4 Heart Rate 1: 74 bpm Height: 5'10" Respiratory Rate: 20 bpm Temperature: 36 .1 (C) / 97.0 (F) Weight: 229 lbs 03/11/2013 Blood Pressure 1: 146/80 Code: 8480-6 BMI: 31.5 Code: 06081-4 Heart Rate 1: 80 bpm Height: 6' [...] care Encounters Encounter Performer Location Codes Date ([id number]) OFFICE/OUTPATIENT VISIT EST Diagnosis: Other dyspnea and respiratory abnormality[ICD10: R06.09] Diagnosis: Obstructive sleep apnea[ICD10: G47.33] Diagnosis: Hypotension[ICD10: I95.9] Xiomara Bettencourt [facility] CPT -4: 34019 10/12/2019 ([id number]) OFFICE/OUTPATIENT VISIT EST Diagnosis: Upper respiratory infection[ICD10: J06.9] Pennie Pinonnoris Dinh MOICARLOS SEdvin ARELYSHAAN [employer]ot[employer]ble [facility] CPT-4: 42757 06/02/2019 ([id number]) OFFICE/OUTPATIENT VISIT EST Diagnosis: Sinusitis[ICD10: J32.9] Diagnosis: Allergic rhinitis[ICD10: J30.9] Pennie Pinondi XIOMARA SEdvin REEDER [employer] [facility] CPT-4: 95654 05/13/2019 ([id number]) OFFICE/OUTPATIENT VISIT EST Diagnosis: Pneumonia[ICD10: J18.9] Pennie Pinonnoris RENAEXIOMARA SEdvin ARELYND [employer] [facility] CPT-4: 73331 04/26/2019 ([id number]) OFFICE/OUTPATIENT VISIT EST Diagnosis: Acute sinusitis, unspecified[ICD10: J01.90] Pennie Pinonnoris RENAEXIOMARA SEdvin ARELYNDER [employer] [facility] CPT-4: 93804 02/22/2019 ([id number]) OFFICE/OUTPATIENT VISIT EST Diagnosis: Cervicalgia[ICD10: M54.2] Xiomara Gan ARELY STEPHANIE [employer] [facility] CPT-4: 16957 11/25/2018 ([id number]) OFFICE/OUTPATIENT VISIT EST Diagnosis: Acute sinusitis, unspecified[ICD10: J01.90] Diagnosis: Myalgia, unspecified site[ICD10: M79.10] Diagnosis: Cervicalgia[ICD10: M54.2] Xiomara MCGEE [facility] CPT-4: 99864 11/19/2018 ([id number]) OFFICE/OUTPATIENT VISIT EST Diagnosis: Low back pain[ICD10: M54.5] Diagnosis: Essential (primary) hypertension[ICD10: I10] Diagnosis: 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, 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] Diagnosis: Paroxysmal atrial fibrillation[ICD10: I48.0] [facility]: 80113 07/22/2018 ([id number]) OFFICE/OUTPATIENT VISIT EST Diagnosis: Type 2 diabetes mellitus with diabetic neuropathy, unspecified[ICD10: E11.40] Diagnosis: Hyperlipidemia, unspecified[ICD10: E78.5] Diagnosis: Essential (primary) hypertension[ICD10: I10] Diagnosis: Chronic kidney disease, stage 1[ICD10: N18.1] Diagnosis: Benign prostatic hyperplasia with lower urinary tract symptoms[ICD10: N40.1] Diagnosis: FLU VACCINE[ICD10: Z23] Xiomara Gan [facility] CPT-4: 28435 04/21/2018 OFFICE/OUTPATIENT VISIT EST Diagnosis: Type 2 diabetes mellitus with hyperglycemia[ICD10: E11.65] Diagnosis: Essential (primary) hypertension[ICD10: I10] Diagnosis: Mixed hyperlipidemia[ICD10: E78.2] Diagnosis: Other fatigue[ICD10: R53.83] [facility] 24816 01/06/2018 ([id number]) OFFICE/OUTPATIENT VISIT EST Diagnosis: Type 2 diabetes mellitus with diabetic neuropathy, unspecified[ICD10: E11.40] Diagnosis: Essential (primary) hypertension[ICD10: I10] Diagnosis: Pain in right thigh[ICD10: M79.651] Diagnosis: Pain in left leg[ICD10: M79.605] Diagnosis: Localized swelling, mass and lump, left lower limb[ICD10: R22.42] Diagnosis: OSTEOARTHRISIS MULTI SITES[ICD10: M19.90] Diagnosis: FLU VACCINE[ICD10: Z23] Xiomara [facility]BRIDE [facility] CPT-4: 91189 04/22/2017 ([id number]) OFFICE/OUTPATIENT VISIT EST Diagnosis: Essential (primary) hypertension[ICD10: I10] Diagnosis: Type 2 diabetes mellitus with hyperglycemia[ICD10: E11.65] Diagnosis: Angina pectoris, unspecified[ICD10: I20.9] [facility]PT-[facility]: 02519 10/10/2016 ([id number]) OFFICE/OUTPATIENT VISIT EST Diagnosis: Cough[ICD10: R05] Diagnosis: Wheezing[ICD10: R06.2] Diagnosis: Chronic obstructive pulmonary disease, unspecified[ICD10: J44.9] [facility]: 23988 08/31/2015 OFFICE/OUTPATIENT VISIT EST Diagnosis: Acute bronchitis, unspecified[ICD10: J20.9] Diagnosis: Wheezing[ICD10: R06.2] Kelsie ST[facility]ES [facility] CPT-4: 85235 08/29/2015 ([id number]) OFFICE/OUTPATIENT VISIT EST Diagnosis: Type 2 diabetes mellitus with diabetic neuropathy, unspecified[ICD10: E11.40] Diagnosis: Hyperlipidemia, unspecified[ICD10: E78.5] Diagnosis: Essential (primary) hypertension[ICD10: I10] Diagnosis: Encounter for general adult medical examination without abnormal findings[ICD10: Z00.00] [facility]PT[facility]: 59840 07/26/2015 OFFICE/OUTPATIENT VISIT EST Diagnosis: Type 2 diabetes mellitus with hyperglycemia[ICD10: E11.65] Diagnosis: Unspecified osteoarthritis, unspecified site[ICD10: M19.90] Diagnosis: Other instability, right knee[ICD10: M25.361] [facility] CPT-4: 84066 07/24/2015 ([id number]) OFFICE/OUTPATIENT VISIT EST Diagnosis: Pain in leg, unspecified[ICD10: M79.606] Diagnosis: Type 2 diabetes mellitus with diabetic neuropathy, unspecified[ICD10: E11.40] Xiomara [facility] CPT-4: 38280 05/01/2015 ([id number]) OFFICE/OUTPATIENT VISIT EST Diagnosis: MALAISE AND FATIGUE[ICD9: 780.79] Diagnosis: 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, 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] Diagnosis: CAD[ICD9: 414.00] Diagnosis: ANEMIA NOS[ICD9: 285.9] Xiomara [facility]BRIDE [facility] CPT-4: 44470 01/17/2015 ([id number]) OFFICE/OUTPATIENT VISIT EST Diagnosis: Skin lesion[ICD9: 709.9] Xiomara HAND [facility] CPT-4: 42072 09/29/2014 OFFICE/OUTPATIENT VISIT EST Diagnosis: GASTROENTERITIS[ICD9: 558.9] Diagnosis: GERD[ICD9: 530.81] Kelsie VanMessi XIOMARA [facility] CPT-4: 78010 02/18/2014 ([id number]) OFFICE/OUTPATIENT VISIT EST Diagnosis: 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I, UNCONTROLLED[ICD9: 250.02] Xiomara [facility] CPT-4: 30897 07/29/2013 ([id number]) OFFICE/OUTPATIENT VISIT EST Diagnosis: FLU VACCINE[ICD9: V04.81] Xiomara MCGEE [facility] CPT-4: 46118 07/22/2013 ([id number]) OFFICE/OUTPATIENT VISIT EST Diagnosis: 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I, UNCONTROLLED[ICD9: 250.02] Diagnosis: HYPERTENSION[ICD9: 401.9] Xiomara MCGEE [facility] CPT-4: 70897 05/26/2013 ([id number]) OFFICE/OUTPATIENT VISIT EST Diagnosis: MONONEURITIS[ICD9: 355.9] Diagnosis: RESTLESS LEGS SYNDROME[ICD9: 333.94] Diagnosis: HYPERTENSION[ICD9: 401.9] Diagnosis: CAD[ICD9: 414.00] Diagnosis: Weakness[ICD9: 780.79] Xiomara Dolan [facility] CPT-4: 36054 04/28/2013 ([id number]) OFFICE/OUTPATIENT VISIT EST Diagnosis: 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[ICD9: 250.01] Diagnosis: MONONEURITIS[ICD9: 355.9] Diagnosis: HYPERLIPIDEMIA NEC/NOS[ICD9: 272.4] Diagnosis: CAD[ICD9: 414.00] Xiomara LARA DelphineEdvin K[facility] [employer] CPT-4: 47060 03/12/2013 OFFICE/OUTPATIENT VISIT NEW Diagnosis: CAD[ICD9: 414.00] Diagnosis: HYPERLIPIDEMIA NEC/NOS[ICD9: 272.4] Diagnosis: HYPERTENSION[ICD9: 401.9] Diagnosis: Neuropathy[ICD9: 355.9] Diagnosis: RESTLESS LEGS SYNDROME[ICD9: 333.94] Xiomara Gan ARELYSHERITA [employer] CPT-4: 18518 03/11/2013 Plan of Care Planned Activity Notes [...] I95.9 10/12/2019 Appointment: [facility] Betten[phone] [facility] [facility]ED 09/23/2019 Care Plan: COMPREHEN METABOLIC PANEL SERGEI NC : 77282-0 Pending 09/20/2019 Care Plan: LIPID PANEL LOINC : 38367-5 Pending 09/20/2019 Care Plan: A1C HPLC LOINC : 83120-5 Pending 09/20/2019 Care Plan: COMPLETE CBC W/AUTO DIFF WBC LOINC : 78624-7 Pending 09/20/2019 Visit Diagnosis Plan: Upper respiratory infection Disc ussion: discussed that most likely viral. push fluids and rest through the week. patient has left over levaquin at home (5 days worth). instructed patient to start taking if he gets worse later this week and to call us next week if no improvement. ICD-9 : 465.9 ICD-10 : J06.9 06/02/2019 Appointment: Pennie Pizarro [address] [place], [place] [phone] ACUTE ILLNESS 06/02/2019 Visit Diagnosis Plan: Allergic [...] ICD-10 : J30.9 05/13/2019 Appointment: Pennie Pizarro [address] [place], [place] [phone] ACUTE ILLNESS 05/13/2019 Appointment: Xiomara Bettencourt WPtel: [phone] [facility] US CANCELED 04/27/2019 Visit Diagnosis Plan: Pneumonia Discussion: will obtai n records from urgent care. instructed to finish out doxy. no rhonchi or crackles auscultated. symbicort sample given to patient with instructions to use bid. call office later this week with new or worsening symptoms. ICD-9 : 486 ICD-10 : J18.9 04/26/2019 Appointment: Pennie Pizarro [address] [place], [place] [phone] FOLLOW UP 04/26/2019 Visit Diagnosis Plan: Acute [...] : J01.90 02/22/2019 Appointment: Moira, Pennie R. [address] [place], [place] [id number] ACUTE ILLNESS 02/22/2019 Patient Education: prednisone- [employer] Coupon [phone] [email or web address]/[email or web address] Completed 02/22/2019 Visit Diagnosis Plan: Cervicalgia Discussion: Check Ce rvical Spine X-ray Will likely need PT ICD-9 : 723.1 ICD-10 : M54.2 11/25/2018 Appointment: Xiomara Bettencourt WPtel: [phone] [facility] ACUTE ILLNESS 11/25/2018 Visit Plan: Saline [...] Tyle... 11/19/2018 Appointment: Xiomara Bettencourt WPtel: [phone] [facility] ACUTE ILLNESS 11/19/2018 Patient Education: baclofen- [employer] Coupon [phone] [email or web address]/resources/getResource/61/[email or web address] Completed 11/19/2018 Visit Diagnosis Plan: Paroxysmal atrial [...] 07/22/2018 Appointment: [facility] Bettencourt [phone] [facility] [facility] FOLLOW UP 07/22/2018 Visit Diagnosis Plan: [...] Trial of flomax Call in 1 mo [facility] on how doing Follow Up: 4 months ICD-9 : 600.21 ICD-10 : N40.1 04/21/2018 Appointment: Xiomara Bettencourt [facility]Ptel[facility] [phone] [facility] FOLLOW UP 04/21/2018 Patient Education: Patient Medication [...] ICD-10 : E78.2 01/06/2018 Appointment: Pennie Pizarro [address] [place] [address] MEDICATION REVIEW 01/06/2018 Patient Education: Patient Medication Summary Completed 01/06/2018 Appointment: Xiomara Bettencourt WPtel: [address] [place] [address] NO SHOW 01/05/2018 Appointment: Xiomara Bettencourt WPtel: [address] [place] [address] US CANCELED 12/31/2017 Visit Diagnosis Plan: Actinic keratosis Discussion: Cr yotherapy as above but will see derm if lesions do not resolve ICD-9 : 702.0 ICD-10 : L57.0 10/22/2017 Appointment: Xiomara Bettencourt WPtel: [address] [place] [address] ACUTE ILLNESS 10/22/2017 Patient Education: Patient Medication [...] E11.40 04/22/2017 Appointment: Xiomara Bettencourt [facility]el[facility] [phone] [facility] [facility] FOLLOW UP 04/22/2017 Patient Education: Patient Medication Summary Completed 04/22/2017 Patient Education: Patient Medication Summary Completed 04/16/2017 Care Plan: COMPREHEN METABOLIC PANEL SERGEI NC : 96224-4 Pending 04/16/2017 Care Plan: LIPID PANEL LOINC : 92087-0 Pending 04/16/2017 Care Plan: CBC Pending 04/16/2017 Care Plan: A1C HPLC LOINC : 23928-5 Pending 04/16/2017 Referral: Inocnecio Goodson WPtel: [phone] [facility] [id number] US Referral Appointment Confirmed 10/14/2016 Visit Diagnosis Plan: Type 2 diabetes mellitus with hy perglycemia Discussion: Continue toujeo Accuchecks BID Follow Up: 4 months ICD-9 : 250.02 ICD-10 : E11.65 10/10/2016 Visit Diagnosis Plan: Angina pectoris, unspecified Dis cussion: Continue imdur and see cardiology To ER if chest pain returns ICD-9 : 413.9 ICD-10 : I20.9 10/10/2016 Appointment: Xiomara Bettencourt WPtel: [address] [place] [address] FOLLOW UP 10/10/2016 Patient Education: Patient Medication Summary Completed 10/10/2016 Patient Education: Patient Medication Summary Completed 09/16/2016 Care Plan: COMPREHEN METABOLIC PANEL SERGEI NC : 95424-5 Pending 09/16/2016 Care Plan: ASSAY THYROID STIM HORMONE Pen ding 09/16/2016 Care Plan: ASSAY OF FREE THYROXINE Pendin g 09/16/2016 Care Plan: LIPID PANEL LOINC : 40942-4 Pending 09/16/2016 Care Plan: CBC Pending 09/16/2016 Care Plan: A1C HPLC LOINC : 75337-6 Pending 09/16/2016 Visit Plan: CXR now to [...] with CXR results 08/31/2015 Appointment: Shannan Grimes [address] [place] [address] 08/31 confirmed- SP ACUTE ILLNESS 08/31/2015 Patient Education: Patient Medication Summary Completed 08/31/2015 Visit Plan: Albuterol INH via SVN every 4 hours Prednisone 20 mg PO BID Notify for worsening symptoms 08/29/2015 Appointment: Kelsie Grubbs WPtel: [address] [place], [place] [phone] ACUTE ILLNESS 08/29/2015 Patient Education: Patient Medication Summary Completed 08/29/2015 Appointment: Xiomara Bettencourt WPtel: [address] [place], [place] [phone] LAB 07/26/2015 Patient Education: Patient Medication Summary Completed 07/26/2015 Visit Plan: Return in am for fasting lab s - CBC, CMP, TSH, Free T4, HgbA1C Change Levemir to Toujeo - Continue 35 Units q am - sample given Start physical Therapy for increased quadriceps strengthening and decreased pain in knees, bilaterally. 07/24/2015 Appointment: Humera Kelsie Pushpa WPtel: [address] [place], [place] [phone] 07/21 appt confirmed cn FOLLOW UP 07/24/19 Appointment: DaPrabhakarKelsie dixon WPtel: [address] [place], [place] [phone] FOLLOW UP 07/24/2015 Patient Education: Patient Medication [...] with insulin 05/01/2015 Appointment: Xiomara Bettencourt WPtel: [address] [place], [place] [phone] 04/28 confirmed~sl ACUTE ILLNESS 05/01/2015 Patient Education: Patient Medication Summary Completed 05/01/2015 Patient Education: Patient Medication Summary Completed 01/19/2015 Care Plan: URINALYSIS AUTO W/O SCOPE SERGEI NC : 15108-8 Pending 01/19/2015 Visit Plan: I have went [...] stress test 01/17/2015 Appointment: Xiomara Bettencourt WPtel: [address] [place], [place] [phone] 01/16 vm cn ACUTE ILLNESS 01/17/2015 Patient Education: Patient Medication Summary Completed 01/17/2015 Visit Plan: See Dr. Garvin for removal 09/29/2014 Appointment: Xiomara Bettencourt WPtel: [address] [place] [address] ACUTE ILLNESS 09/29/2014 Referral: Colt Garvin WPtel: [address] Referral Initiated 09/29/2014 Patient Education: Patient Medication Summary Completed 09/29/2014 Visit Plan: Check CBC, CMP, TSH, free T4 , HbA1C, Lipids Accuchecks daily alternating times Patient has been adjusting own meds and has not taken any cholesterol meds for sometime Will check into surgery on right knee at [facility] Check carotid dopplers 08/04/2014 Appointment: Xiomara Bettencourt WPtel: [address] [place] [address] Annual Well Visit 08/04/2014 Patient Education: Patient Medication Summary Completed 08/04/2014 Appointment: Kelsie Grubbs WPtel: [address] [place] [address] ACUTE ILLNESS 02/18/2014 Patient Education: Patient Medication Summary Completed 02/18/2014 Patient Education: [facility] - Saving AutoInj - 18+ - Dynamic Portal ID Completed 02/18/2014 Appointment: Xiomara Bettencourt WPtel: [address] [place] [address] LAB 09/08/2013 Visit Plan: Check fasting lab in 1mo Con tinue Lantus and accuchecks at least BID 07/29/2013 Appointment: Xiomara Bettencourt WPtel: [address] [place] [address] FOLLOW UP 07/29/2013 Patient Education: Patient Medication Summary Completed 07/29/2013 Appointment: Xiomara Bettencourt WPtel: [address] [place] [address] INJECTION 07/22/2013 Patient Education: Patient Medication Summary Completed 07/22/2013 Visit Plan: Pt has been self-adjusting m eds Stop metformin and amaryl Use Levemir 25u sc BID and call in 1wk with BS readings 05/26/2013 Appointment: [facility] Bettencourt [phone] [facility] FOLLOW [facility] 05/26/2013 Patient Education: Patient Medication Summary Completed 05/26/2013 Visit Plan: DC Metformin Increase Lantus to 30u sc daily Change lisinopril to lisinopril HCT 20/25mg q AM Continue Gabapentin at current dose 04/28/2013 Appointment: Xiomara Bettencourt WPtel: [address] [place], [place] [phone] FOLLOW UP 04/28/2013 Patient Education: Patient Medication Summary Completed 04/28/2013 Appointment: Xiomara Bettencourt WPtel: [address] [place], [place] [phone] LAB 03/12/2013 Patient Education: Patient Medication Summary Completed 03/12/2013 Visit Plan: Trial of neurontin 400mg q H S Obtain most recent lab results Change levemir to lantus per pt request Pt goes for sleep study tonite 03/11/2013 Appointment: Xiomara Bettencourt WPtel: [phone] [id number] 02/01paperwork mailed 03/10 confirmed with spouse NEW PATIENT 11/2012 Patient Education: Patient Medication Summary Completed 03/11/2013 Instructions Comment . Saline nasal flushes prn. Tylenol/Motr in prn headache. Notify if persists/symptoms worsening. . CXR now to further evaluate symptoms Suspect viral since he has been on 2 rounds of antibiotics If chronic lung disease evident, will consider keeping on [employer] Sample inhaler given today with instructions on [...] check into surgery on right knee at [facility] Check carotid dopplers . Check fasting [...]
--- OUTSIDE RECORDS SUMMARY | 2020-02-02 21:43 | XMS REPORT | CCD ---
Author Author Sheng Bettencourt D.O. Organization [facility] Address [address] [place] [address] Phone Care Team Providers Care [employer] Supervisor Name Role Phone PP Unavailable CCM Unavailable Summary Purpose Interface Exchange Insurance Providers Payer name Policy type / Coverage type Covered republican ID Effective Begin Date Effective End Date WPS MEDICARE PART B [place] Medicare Part B [id number] 2018 Unknown Unm [facility] Medicare Part B [id number] 2018 Un known Family history Mother Diagnosis Age At Onset Diabetes mellitus Type 2 Unknown Hypercholesterolemia Unknown Father Diagnosis Age At Onset No Family Disease Entered N/A Social History Social History Element Codes Description Effective Dates Marital status Unknown 03/11/2013 Number of children Unknown 4 03/11/2013 Employment Unknown Retired 03/11/[address]: 9467452 Former smoker 03/11/[address]: 950593 Currently drinks alc ohol Socially 03/11/2013 Has [...] HFA 90 mcg/actuation aerosol inhaler RxNor m: 0622358 1-2 Puff(s) Inhalation as needed 10/12/2019 No Stop Date Active Zyrtec 10 mg tablet RxNorm: 0685675 1 Tablet(s) Oral QAM 10/12/2019 No Stop Date Active aspirin 81 mg tablet,delayed release RxNorm: 950316 1 Tablet(s) Oral QD 10/12/2019 No Stop Date Active Symbicort 160 mcg-4.5 mcg/actuation HFA aerosol inhaler RxNo rm: 4805270 2 Puff(s) Inhalation QD 10/12/2019 No Stop Date Active lisinopril 20 mg tablet RxNorm: 009116 1 Tablet(s) Oral QD 10/12/19 20 01/10/2020 Active simvastatin 20 mg tablet RxNorm: 387378 1 Tablet(s) Ora l QD Needs updated fasting labs 09/20/2019 12/19/2019 Active Needs updated fa sting labs before 90 day refill Flomax 0.4 mg capsule RxNorm: 672811 TAKE TWO CAPSULES BY MOUTH EVERY EVENING 08/03/2019 No Stop Date Active gabapentin 400 mg capsule RxNorm: 983021 TAKE ONE CAPSU LE BY MOUTH EVERY EVENING 08/02/2019 No Stop Date Active simvastatin 20 mg tablet RxNorm: 490671 1 Tablet(s) Ora l QD Needs updated fasting labs 07/21/2019 08/19/2019 Inactive Needs updated fa sting labs before 90 day refill simvastatin 20 mg tablet RxNorm: 834808 1 Tablet(s) Ora l QD Needs updated fasting labs 06/23/2019 07/20/2019 Inactive Needs updated fa sting labs before 90 day refill Flomax 0.4 mg capsule RxNorm: 409810 1 Capsule(s) Oral QD 9 No Stop Date Active Flomax 0.4 mg capsule RxNorm: 853279 TAKE TWO CAPSULES BY MOUTH EVERY EVENING 03/19/2019 05/12/2019 Inactive Augmentin 500 mg-125 mg tablet RxNorm: 430792 1 Tablet(s) PO BID 03/03/2019 Inactive baclofen 10 mg tablet RxNorm: 910372 TAKE ONE TABLET BY MOUTH EVERY NIGHT AT BEDTIME FOR PAIN OR SPASMS 01/14/2019 05/12/2019 Inactive Flomax 0.4 mg capsule RxNorm: 060344 TAKE TWO CAPSULES BY MOUTH EVERY EVENING 01/12/2019 03/18/2019 Inactive gabapentin 400 mg capsule RxNorm: 133486 1 Capsule(s) PO QPM 201806/27/2019 Inactive baclofen 10 mg tablet RxNorm: 800302 1 Tablet(s) PO QHS for my n/spasm 12/15/2018 01/13/2019 Inactive simvastatin 20 mg tablet RxNorm: 622711 TAKE ONE TABLET BY MOUT H DAILY 12/11/2018 06/22/2019 Inactive OneTouch Ultra Blue Test Strip RxNorm: Use 1 rigoberto t strip three times daily to check blood sugar (Dx:E11.65) 12/07/2018 No Stop Date Active gabapentin 400 mg capsule RxNorm: 141798 TAKE ONE CAPSU LE BY MOUTH EVERY EVENING 12/04/2018 12/29/2018 Inactive baclofen 10 mg tablet RxNorm: 643577 1 Tablet(s) PO QHS for my n/spasm 11/19/2018 12/15/2018 Inactive Flomax 0.4 mg capsule RxNorm: 777045 2 Capsule(s) PO QPM 09/15/2018 0 12/13/2018 Inactive WOULD LIKE 90DS!!! gabapentin 400 mg capsule RxNorm: 209382 TAKE ONE CAPSU LE BY MOUTH EVERY EVENING 07/21/2018 10/18/2018 Inactive simvastatin 20 mg tablet RxNorm: 197375 1 Tablet(s) PO QD 06/15/2018 12/10/2018 Inactive Flomax 0.4 mg capsule RxNorm: 179452 TAKE TWO CAPSULES BY MOUTH EVERY EVENING 06/02/2018 09/15/2018 Inactive WOULD LIKE 90DS!!! Flomax 0.4 mg capsule RxNorm: 587204 2 Capsule(s) PO QPM 04/21/2018 1 07/20/2017 Inactive simvastatin 20 mg tablet RxNorm: 309107 1 Tablet(s) PO QD Take 1 tablet by mouth daily. Patient due for labwork before further refill. 04/06/20182017 Inactive simvastatin 20 mg tablet RxNorm: 955015 Tablet(s) TAKE ONE TABLET BY MOUTH DAILY 03/25/2018 06/15/2018 Inactive simvastatin 20 mg tablet RxNorm: 979311 Tablet(s) TAKE ONE TABLET BY MOUTH DAILY due for appt 12/29/2017 03/25/2018 Inactive simvastatin 20 mg tablet RxNorm: 355360 TAKE ONE TABLET BY MOUT H DAILY 09/03/2017 12/29/2017 Inactive simvastatin 20 mg tablet RxNorm: 863147 1 Tablet(s) PO QD 10/22/2016 11/18/2018 Inactive isosorbide mononitrate ER 60 mg tablet,extended release 24 h r RxNorm: 449445 1 Tablet(s) PO QD 10/22/2016 04/21/2017 Inactive isosorbide mononitrate ER 60 mg tablet,extended release 24 h r RxNorm: 198609 1 Tablet(s) PO QD 10/10/2016 10/21/2016 Inactive simvastatin 20 mg tablet RxNorm: 148084 1 Tablet(s) PO QD 10/10/2016 10/21/2016 Inactive gabapentin 400 mg capsule RxNorm: 600697 1 Capsule(s) PO QPM 201609/20/2016 Inactive Toujeo SoloStar 300 unit/mL (1.5 mL) subcutaneous insulin pe n RxNorm: 8445906 35 Unit(s) SQ QAM 07/23/2016 07/22/2016 Inactive Toujeo SoloStar 300 unit/mL (1.5 mL) subcutaneous insulin pe n RxNorm: 2620034 40 Unit(s) SQ QAM 09/01/2015 No Stop Date Active Symbicort 160 mcg-4.5 mcg/actuation HFA aerosol inhaler RxNo rm: 3243204 2 Puff(s) INH BID 08/31/2015 09/09/2015 Inactive prednisone 20 mg tablet RxNorm: 290861 1 Tablet(s) PO BID 08/29/2015 09/02/2015 Inactive albuterol sulfate 2.5 mg/3 mL (0.083 %) solution for n ebulization RxNorm: 219771 1 Unit(s) INH Q4H as needed 08/29/2015 10/09/2016 Inactive levothyroxine 75 mcg tablet RxNorm: 819673 1 Tablet(s) PO QD 201507/27/2015 Inactive levothyroxine 75 mcg tablet RxNorm: 808773 1 Tablet(s) PO QD 201511/18/2018 Inactive levothyroxine 75 mcg tablet RxNorm: 882699 1 Tablet(s) PO QD 201507/27/2015 Inactive lisinopril 20 mg-hydrochlorothiazide 25 mg tablet RxNorm: 19 7887 TAKE ONE TABLET BY MOUTH EVERY MORNING. REPLACES PLAIN LISINOPRIL 03/06/2015 04/21/2017 Inactive lisinopril 20 mg-hydrochlorothiazide 25 mg tablet RxNorm: 19 7887 TAKE ONE TABLET BY MOUTH EVERY MORNING. REPLACES PLAIN LISINOPRIL 09/08/2014 03/05/2015 Inactive allopurinol 100 mg tablet RxNorm: 278616 1 Tablet(s) PO BID 015 10/09/2016 Inactive [SAVINGS FOR NON-COVERED YULIA -- BIN:[id number], PCN: [id number], Group: XXXXX, ID# [id number], Questions: . THIS IS NOT INSURANCE.] levothyroxine 50 mcg tablet RxNorm: 479114 1 Tablet(s) PO QD 201407/26/2015 Inactive [AttnRPh: Saving apply/adjud icate RxGRP:SG20 RxBIN:[id number] RxPCN:HT ID#:[id number]] Zegerid 40 mg-1.1 gram capsule RxNorm: 793881 1 Capsule(s) PO QD 03/03/2014 Inactive [AttnRPh: Saving apply/adjud icate RxGRP:SG20 RxBIN:[id number] RxPCN:HT ID#:[id number]] ondansetron 8 mg disintegrating tablet RxNorm: 635041 1 Tablet(s) PO Q8H as needed for [...] 07/28/2013 Inactive gabapentin 400 mg capsule RxNorm: 766080 1 Capsule(s) PO QPM 201207/28/2013 Inactive gabapentin 400 mg capsule RxNorm: 140790 1 Capsule(s) PO QPM 201206/26/2013 Inactive lisinopril 20 mg-hydrochlorothiazide 25 mg tablet RxNorm: 82 3971 1 Tablet(s) PO QAM replaces plain lisinopril 04/28/2013 07/29/2013 Inactive gabapentin 400 mg capsule RxNorm: 137672 1 Capsule(s) PO QPM 201204/27/2013 Inactive gabapentin 400 mg capsule RxNorm: 820119 1 Capsule(s) PO QPM 201203/10/2013 Inactive gabapentin 400 mg capsule RxNorm: 986810 1 Capsule(s) PO QPM 201203/14/2013 Inactive Lantus Solostar 100 unit/mL (3 mL) Sub-Q Insulin Pen RxNorm: 054055 20 Unit(s) SQ QPM 03/11/2013 03/15/2013 Inactive Toujeo SoloStar 300 unit/mL (1.5 mL) subcutaneous insulin pe n RxNorm: 9629731 35 Unit(s) SQ QAM No Start Date Active omeprazole 20 mg capsule,delayed release RxNorm: 548914 1 Capsu le(s) PO QD No Start Date Active isosorbide mononitrate ER 60 mg tablet,extended release 24 h r RxNorm: 264028 1 Tablet(s) PO QD No Start Date Active Eliquis 5 mg tablet RxNorm: 8011573 1 Tablet(s) PO BID No Start Date Active metformin 500 mg tablet RxNorm: 772862 1 Tablet(s) PO BID No Start Da te Active levothyroxine 50 mcg tablet RxNorm: 762745 1 Tablet(s) PO QD No Start Date Active Norvasc 10 mg tablet RxNorm: 062394 1 Tablet(s) PO QHS No Start Date Active Toujeo SoloStar 300 unit/mL (1.5 mL) subcutaneous insulin pe n RxNorm: 5725656 30 Unit(s) SQ QAM No Start Date Active glimepiride 4 mg tablet RxNorm: 237176 1 Tablet(s) PO QHS No Start Date 07/26/2015 Inactive allopurinol 100 mg tablet RxNorm: 339941 1 Tablet(s) PO BID No Star t Date 08/10/2014 Inactive Lantus Solostar 100 unit/mL (3 mL) subcutaneous insulin pen RxNorm: 554115 30 Unit(s) SQ QD No Start Date 08/03/2014 Inactive Levemir FlexTouch 100 unit/mL (3 mL) subcutaneous insulin pe n RxNorm: 721000 25 Unit(s) SQ QAM No Start Date 07/23/2015 Inactive Lantus 100 unit/mL Sub-Q RxNorm: 304954 30 Unit(s) SQ QHS No Start Date 05/25/2013 Inactive Lantus Solostar 100 unit/mL (3 mL) Sub-Q Insulin Pen RxNorm: 390267 20 Unit(s) SQ QPM No Start Date 03/10/2013 Inactive OneTouch Ultra Blue Test Strip RxNorm: Use 1 rigoberto t strip three times daily to check blood sugar (Dx:E11.65) No Start Date 12/06/2018 Inactive Levemir FlexTouch 100 unit/mL (3 mL) subcutaneous insulin pe n RxNorm: 390777 30- 35 Unit(s) SQ QAM No Start Date 07/23/2015 Inactive Levemir Flexpen 100 unit/mL (3 mL) solution subcutaneo us insulin pen RxNorm: 167877 20-25 Unit(s) SQ QD No Start Date 07/28/2013 Inactive lisinopril 20 mg tablet RxNorm: 232728 1 Tablet(s) PO QD No Start D ate 10/11/2019 Inactive indomethacin ER 75 mg capsule,extended release RxNorm: 79113 2 1 Capsule(s) PO QAM No Start Date 04/27/2013 Inactive indomethacin ER 75 mg capsule,extended release RxNorm: 40268 2 1 Capsule(s) PO QD No Start Date 01/16/2015 Inactive Chlortab-4 oral RxNorm: 546206 oral No Start Date 10/11/2019 Inac tive Vitamin D3 5,000 unit tablet RxNorm: 460022 1 Tablet(s) PO QD No St art Date 08/03/2014 Inactive Levemir Flexpen 100 unit/mL (3 mL) solution subcutaneo us insulin Pen RxNorm: 114596 20 Unit(s) SQ QHS No Start Date 03/10/2013 Inactive Vytorin 10 mg-40 mg tablet RxNorm: 4252375 1/2 Tablet(s) PO QD No S tart Date 04/20/2018 Inactive oxymetazoline-menthol 0.05 % nasal spray RxNorm: 7017611 [place] N COTY No Start Date 10/11/2019 Inactive Patient states he ta kes every 10 hours Toujeo SoloStar 300 unit/mL (1.5 mL) subcutaneous insulin pe n RxNorm: 4060221 35 Unit(s) SQ QAM No Start Date 07/22/2016 Inactive Lantus Solostar 100 unit/mL (3 mL) subcutaneous insulin pen RxNorm: 425561 20 Unit(s) SQ QD No Start Date 08/03/2014 Inactive aspirin 81 mg tablet RxNorm: 710891 1 Tablet(s) PO QD No Start Date 0 08/03/2014 Inactive metformin 500 mg tablet RxNorm: 573651 1 Tablet(s) PO BID No Start Date 07/28/2013 Inactive glimepiride 4 mg tablet RxNorm: 489364 1 Tablet(s) PO BID No Start Date 01/16/2015 Inactive glimepiride 4 mg tablet RxNorm: 844552 1 Tablet(s) PO QD No Start D ate 08/03/2014 Inactive levothyroxine 25 mcg tablet RxNorm: 320525 1 Tablet(s) PO QD No Sta rt Date 08/10/2014 Inactive doxycycline oral RxNorm: 80722 oral No Start Date 05/12/2019 Inac tive aspirin 81 mg tablet RxNorm: 642008 1 Tablet(s) PO QD No Start Date 0 07/21/2018 Inactive isosorbide mononitrate ER 60 mg tablet,extended release 24 h r RxNorm: 439194 1 Tablet(s) PO BID No Start Date 01/16/2015 Inactive metformin 500 mg tablet RxNorm: 196099 1 Tablet(s) PO BID No Start Date 04/27/2013 Inactive Plavix 75 mg tablet RxNorm: 042160 1 Tablet(s) PO QD No Start Date Inactive glimepiride 4 mg tablet RxNorm: 734748 1 Tablet(s) PO QPM No Start Date 02/21/2019 Inactive Vytorin 10-40 10 mg-40 mg tablet RxNorm: 3383598 1 Tablet(s) PO QHS No Start Date 08/03/2014 Inactive indomethacin 50 mg capsule RxNorm: 715648 1 Capsule(s) PO QHS No St art Date 01/16/2015 Inactive glimepiride 4 mg tablet RxNorm: 856518 1 Tablet(s) PO BID No Start Date 07/28/2013 Inactive Levemir FlexTouch 100 unit/mL (3 mL) subcutaneous insulin pe n RxNorm: 027695 20 Unit(s) SQ QD No Start Date 04/30/2015 Inactive lisinopril 20 mg tablet RxNorm: 332456 1 Tablet(s) PO BID No Start Date 04/27/2013 Inactive Lantus Solostar SubQ RxNorm: Subcutaneous No Start Date 03/15/2013 I nactive Zantac 150 mg tablet RxNorm: 050696 1 Tablet(s) PO QHS No Start Date 10/11/2019 Inactive allopurinol 300 mg tablet RxNorm: 407803 1 Tablet(s) PO QD No Start Date 08/03/2014 Inactive Fish Oil 1,000 mg capsule RxNorm: 1 Capsule(s) PO QD No Start Date 02/21/2019 Inactive indomethacin 50 mg capsule RxNorm: 278938 1 Capsule(s) PO BID No St art Date 04/20/2018 Inactive levothyroxine 50 mcg tablet RxNorm: 825808 1 Tablet(s) PO QD No Sta rt Date 08/10/2014 Inactive glimepiride 4 mg tablet RxNorm: 487902 1 Tablet(s) PO BID No Start Date 03/15/2013 Inactive indomethacin 50 mg capsule RxNorm: 725721 1 Capsule(s) PO QHS No St art Date 04/27/2013 Inactive Medication Administered No Medication Administered data Immunizations Vaccine Codes Date Status Influenza CVX: 135 04/21/2018 Complete Influenza CVX: 135 04/22/2017 Complete Results Observation Observation Code Item Item Code Result Date S ervice Location [facility] 73666 Cholesterol 209 mg/dL 09/17/2016 Unkno wn [facility] 54036 Triglyceride 111 mg/dL 09/17/2016 Unkn own [facility] 49561 HDL CHOLESTEROL 50 mg/dL 09/17/2016 U nknown [facility] 74029 Chol/HDL Ratio 4.18 ratio 09/17/2016 U nknown [facility] 56954 NON-HDL Chol 159 mg/dL 09/17/2016 Unkn own [facility] 08130 LDL Cholesterol 137 mg/dL 09/17/2016 U nknown MEAN GLUC 1692305 Calc Mean Gluc 151 mg/dL 09/17/2016 Unkn own COMPREHENSIVE METABOLIC 34679 AST 23 U/L 2016 Unknown COMPREHENSIVE METABOLIC 65099 ALT 19 U/L 2016 Unknown [facility]PRE[facility]ENS[facility] MET[facility]OL[facility] 72098 BUN 15 mg/dL 2016 Unknown COMPREHENSIVE METABOLIC 52240 ALBUMIN 4.3 g/dL 2016 Unknown COMPREHENSIVE METABOLIC 95000 CHLORIDE 103 mmol/L 09/17 Unknown COMPREHENSIVE METABOLIC 47117 Bili Total 0.6 mg/dL 09/17 Unknown COMPREHENSIVE METABOLIC 22310 ALK PHOS 60 U/L 2016 Unknown COMPREHENSIVE METABOLIC 94226 SODIUM 140 mmol/L 09/17 Unknown COMPREHENSIVE METABOLIC 79238 CREATININE 1.03 mg/dL 09/04 Unknown COMPREHENSIVE METABOLIC 70798 CALCIUM 9.5 mg/dL 2016 Unknown COMPREHENSIVE METABOLIC 03067 POTASSIUM 3.9 mmol/L 09/17 Unknown COMPREHENSIVE METABOLIC 73790 Total Protein 6.9 g/dL Unknown COMPREHENSIVE METABOLIC 46354 Glucose 94 mg/dL 2016 Unknown COMPREHENSIVE METABOLIC 25826 Bicarbonate 28 mmol/L 09/04 Unknown COMPREHENSIVE METABOLIC 60577 AGAP 9 mmol/L 2016 Unknown GFR CALC 0426275 GFR Non Afr Amr >60 mL/min 09/17/2016 Un known GFR CALC 5587148 GFR Afr Amr >60 mL/min 09/17/2016 Unknow n THYROID STIMULATING HORMONE 85302 TSH 4.260 uIU/mL 09/17/2016 Unknown GLYCOSYLATED HEMOGLOBIN TEST 71182 Hgb A1c 95421-6 6.9 % 0 09/17/2016 Unknown FREE T4 11655 T4 Free 1.02 ng/dL 09/17/2016 Unknown COMPLETE BLOOD COUNT 0702826 WBC 8.6 10e9/L 07/26/19 16 Unknown COMPLETE BLOOD COUNT [id number] RBC 4.86 10e12/L 2015 Unknown COMPLETE BLOOD COUNT 9692830 HGB 14.6 g/dL 6 Unknown COMPLETE BLOOD COUNT 2499435 HCT DET 43.1 % 6 Unknown COMPLETE BLOOD COUNT 1844757 MCV 88.7 fL 6 Unknown COMPLETE BLOOD COUNT 4161750 MCH 30.0 pg 6 Unknown COMPLETE BLOOD COUNT 8645603 MCHC 33.9 g/dL 6 Unknown COMPLETE BLOOD COUNT 2104002 PLT 267 10e9/L 07/26/19 16 Unknown COMPLETE BLOOD COUNT 6612886 MPV 11.5 fL 6 Unknown COMPLETE BLOOD COUNT 3428201 SAM % 64.8 % 6 Unknown COMPLETE BLOOD COUNT 6852569 LY % 16.8 % 6 Unknown COMPLETE BLOOD COUNT 6135837 MON % 12.5 % 6 Unknown COMPLETE BLOOD COUNT 9579072 EOS % 5.6 % 6 Unknown COMPLETE BLOOD COUNT 9679299 BASO % 0.3 % 6 Unknown COMPLETE BLOOD COUNT 3821117 RDW 13.4 % 6 Unknown COMPLETE BLOOD COUNT [id number] ABS SAM 5.57 10e9/L 016 Unknown COMPLETE BLOOD COUNT 5298777 ABS LYMPH 1.44 10e9/L 016 Unknown COMPLETE BLOOD COUNT [id number] ABS MONO 1.08 10e9/L 016 Unknown COMPLETE BLOOD COUNT [id number] ABS EOS 0.48 10e9/L 016 Unknown COMPLETE BLOOD COUNT [id number] ABS BASO 0.03 10e9/L 016 Unknown COMPLETE BLOOD COUNT [id number] RDW-SD 42.9 fL 6 Unknown PSA EQUIMOLAR MATT 07177 PSA EQ 0.78 NG/ML 6 Unknown THYROID STIMULATING HORMONE 55214 TSH 5.292 uIU/ML 07/26/2015 Unknown GLYCOSYLATED HEMOGLOBIN TEST 06850 A1C HPLC 50905-7 7.0 % 0 07/26/2015 Unknown GFR CALC 6267883 GFR AA >60 ML/MIN 07/26/2015 Unknown GFR CALC 7409898 GFR NON-AA >60 ML/MIN 07/26/2015 Unknown [facility] 60098 HDL TEST 64 MG/DL 07/26/2015 Unknown [facility] 78053 TRIG 58 MG/DL 07/26/2015 Unknown [facility] 69276 TEST LDL 49 MG/DL 07/26/2015 Unknown [facility] 19106 CHOL 125 MG/DL 07/26/2015 Unknown [facility] 61447 RCHOL/HDL 1.95 RATIO 07/26/2015 Unknow n [facility] 70613 NON-HDL CH 61 MG/DL 07/26/2015 Unknow n COMPREHENSIVE METABOLIC 49577 AST 25 U/L 2015 Unknown COMPREHENSIVE METABOLIC 07527 ALT 23 IU/L 2015 Unknown COMPREHENSIVE METABOLIC 99525 BUN 18 MG/DL 2015 Unknown COMPREHENSIVE METABOLIC 99563 ALBUMIN 4.6 GM/DL 2015 Unknown COMPREHENSIVE METABOLIC 08506 CHLORIDE 100 MMOL/L 07/26 Unknown COMPREHENSIVE METABOLIC 51840 BILI TOT 0.5 MG/DL 2015 Unknown COMPREHENSIVE METABOLIC 26587 ALK PHOS 49 U/L 2015 Unknown COMPREHENSIVE METABOLIC 50091 SODIUM 137 MMOL/L 07/26 Unknown COMPREHENSIVE METABOLIC 93383 CREATININE 1.06 MG/DL 07/08 Unknown COMPREHENSIVE METABOLIC 49689 CALCIUM 9.5 MG/DL 2015 Unknown COMPREHENSIVE METABOLIC 52941 POTASSIUM 4.5 MMOL/L 07/26 Unknown COMPREHENSIVE METABOLIC 81128 PROT TOT 6.5 GM/DL 2015 Unknown COMPREHENSIVE METABOLIC 49024 Glucose 109 MG/DL 2015 Unknown COMPREHENSIVE METABOLIC 06584 BICARB 29 MMOL/L 2015 Unknown COMPREHENSIVE METABOLIC 87172 ANION GAP 8 MEQ/L 2015 Unknown FREE T4 11556 FREE T4 1.11 NG/DL 07/26/2015 Unknown CULTURE & SENSITIVITY 56719 PROTEIN UR NEG 015 Unknown [facility] SENSITIVITY 02042 HEMGLBN UR TR 015 Unknown [facility] SENSITIVITY 55960 GLUCOSE UR NEG 015 Unknown [facility] SENSITIVITY 82735 KETONES UR NEG 015 Unknown CULTURE & SENSITIVITY 53409 PH U 6.5 01/25/20 15 Unknown CULTURE & SENSITIVITY 30052 SP GR U 1.013 01/25/20 15 Unknown [facility]ULTURE & SENSITIVITY 82146 BILRUBN UR NEG 015 Unknown CULTURE & SENSITIVITY 82320 LEUKO UR NEG 01/25/20 15 Unknown CULTURE & SENSITIVITY 08950 NITRITE UR NEG 015 Unknown MICR CUL? 3622005 SP TO JOHANA? NO 01/24/2015 Unknown MICR CUL? [id number] APPEAR UR NORMAL 01/24/2015 Unknown MICR CUL? 8183349 RBC/uL 2.2 01/24/2015 Unknown MICR CUL? 1598451 WBC/uL 2.8 01/24/2015 Unknown MICR CUL? 4619289 SQ EPI/uL 1.0 01/24/2015 Unknown MICR CUL? 3985452 HYALCST/uL 0.25 01/24/2015 Unknown MICR CUL? 3337550 WBC /HPF 1 01/24/2015 Unknown MICR CUL? 9391482 RBC /HPF 0 01/24/2015 Unknown GLYCOSYLATED HEMOGLOBIN TEST 05827 A1C HPLC 76800-7 6.6 % 0 01/17/2015 Unknown COMPLETE BLOOD COUNT 9970281 WBC 10.1 10e9/L 015 Unknown COMPLETE BLOOD COUNT 2549126 RBC 4.60 10e12/L 2014 Unknown COMPLETE BLOOD COUNT 1765303 HGB 14.0 g/dL 5 Unknown COMPLETE BLOOD COUNT 8560489 HCT DET 39.9 % 5 Unknown COMPLETE BLOOD COUNT 3640662 MCV 86.7 fL 5 Unknown COMPLETE BLOOD COUNT 3024688 MCH 30.4 pg 5 Unknown COMPLETE BLOOD COUNT 5483132 MCHC 35.1 g/dL 5 Unknown COMPLETE BLOOD COUNT 8115123 PLT 252 10e9/L 01/18/20 15 Unknown COMPLETE BLOOD COUNT 5599501 MPV 11.4 fL 5 Unknown COMPLETE BLOOD COUNT 5287838 SAM % 72.9 % 5 Unknown COMPLETE BLOOD COUNT 3995375 LY % 13.6 % 5 Unknown COMPLETE BLOOD COUNT 7113877 MON % 10.2 % 5 Unknown COMPLETE BLOOD COUNT 6803386 EOS % 3.1 % 5 Unknown COMPLETE BLOOD COUNT 0198049 BASO % 0.2 % 5 Unknown COMPLETE BLOOD COUNT 4510274 RDW 13.6 % 5 Unknown COMPLETE BLOOD COUNT [id number] ABS SAM 7.36 10e9/L 015 Unknown COMPLETE BLOOD COUNT 8170334 ABS LYMPH 1.37 10e9/L 015 Unknown COMPLETE BLOOD COUNT [id number] ABS MONO 1.03 10e9/L 015 Unknown COMPLETE BLOOD COUNT 9910879 ABS EOS 0.31 10e9/L 015 Unknown COMPLETE BLOOD COUNT 8289913 ABS BASO 0.02 10e9/L 015 Unknown COMPLETE BLOOD COUNT 6402141 RDW-SD 42.4 fL 5 Unknown GFR CALC 3650853 GFR AA 51.0L ML/MIN 01/17/2015 Unknow n GFR CALC 0682909 GFR NON-AA 42.0L ML/MIN 01/17/2015 Unkno wn FREE T4 49393 FREE T4 1.30 NG/DL 01/17/2015 Unknown THYROID STIMULATING HORMONE 66417 TSH 4.029 uIU/ML 01/17/2015 Unknown COMPREHENSIVE METABOLIC 04508 AST 28 U/L 2014 Unknown COMPREHENSIVE METABOLIC 69810 ALT 25 IU/L 2014 Unknown COMPREHENSIVE METABOLIC 19568 BUN 21 MG/DL 2014 Unknown COMPREHENSIVE METABOLIC 95122 ALBUMIN 4.7 GM/DL 2014 Unknown COMPREHENSIVE METABOLIC 63356 CHLORIDE 102 MMOL/L 01/17 Unknown COMPREHENSIVE METABOLIC 51901 BILI TOT 0.6 MG/DL 2014 Unknown COMPREHENSIVE METABOLIC 40371 ALK PHOS 44 U/L 2014 Unknown COMPREHENSIVE METABOLIC 43581 SODIUM 137 MMOL/L 01/17 Unknown COMPREHENSIVE METABOLIC 19200 CREATININE 1.62 MG/DL 01/04 Unknown COMPREHENSIVE METABOLIC 43791 CALCIUM 9.7 MG/DL 2014 Unknown COMPREHENSIVE METABOLIC 60100 POTASSIUM 4.5 MMOL/L 01/17 Unknown COMPREHENSIVE METABOLIC 60057 PROT TOT 6.5 GM/DL 2014 Unknown COMPREHENSIVE METABOLIC 91003 Glucose 136 MG/DL 2014 Unknown COMPREHENSIVE METABOLIC 71700 BICARB 24 MMOL/L 2014 Unknown COMPREHENSIVE METABOLIC 35600 ANION GAP 11 MEQ/L 2014 Unknown VITAMIN B 12 91549 VIT B 12 482 PG/ML 01/17/2015 Unknow n URIC ACID 54262 URIC ACID 8.5 MG/DL 08/09/2014 Unknown COMPREHENSIVE METABOLIC 95394 AST 27 U/L 2014 Unknown COMPREHENSIVE METABOLIC 18766 ALT 26 IU/L 2014 Unknown COMPREHENSIVE METABOLIC 60171 BUN 17 MG/DL 2014 Unknown COMPREHENSIVE METABOLIC 06254 ALBUMIN 5.0 GM/DL 2014 Unknown COMPREHENSIVE METABOLIC 95484 CHLORIDE 101 MMOL/L 08/09 Unknown COMPREHENSIVE METABOLIC 96795 BILI TOT 0.7 MG/DL 2014 Unknown COMPREHENSIVE METABOLIC 22906 ALK PHOS 53 U/L 2014 Unknown COMPREHENSIVE METABOLIC 72323 SODIUM 136 MMOL/L 08/09 Unknown COMPREHENSIVE METABOLIC 41957 CREATININE 1.14 MG/DL 09/2014 Unknown COMPREHENSIVE METABOLIC 29329 CALCIUM 9.8 MG/DL 2014 Unknown COMPREHENSIVE METABOLIC 41678 POTASSIUM 4.1 MMOL/L 08/09 Unknown COMPREHENSIVE METABOLIC 58489 PROT TOT 7.5 GM/DL 2014 Unknown COMPREHENSIVE METABOLIC 39555 Glucose 110 MG/DL 2014 Unknown COMPREHENSIVE METABOLIC 15008 BICARB 30 MMOL/L 2014 Unknown COMPREHENSIVE METABOLIC 96235 ANION GAP 5 MEQ/L 2014 Unknown GFR CALC 3580460 GFR AA >60 ML/MIN 08/09/2014 Unknown GFR CALC 1146549 GFR NON-AA >60 ML/MIN 08/09/2014 Unknown FREE T4 19772 FREE T4 1.14 NG/DL 08/09/2014 Unknown GLYCOSYLATED HEMOGLOBIN TEST 57497 A1C HPLC 46763-2 6.8 % 0 08/09/2014 Unknown COMPLETE BLOOD COUNT [id number] WBC 5.9 10e9/L 08/09/19 15 Unknown COMPLETE BLOOD COUNT 1963170 RBC 5.04 10e12/L 2014 Unknown COMPLETE BLOOD COUNT 0424205 HGB 15.2 g/dL 5 Unknown COMPLETE BLOOD COUNT 6335860 HCT DET 44.3 % 5 Unknown COMPLETE BLOOD COUNT 9117574 MCV 87.9 fL 5 Unknown COMPLETE BLOOD COUNT 7605599 MCH 30.2 pg 5 Unknown COMPLETE BLOOD COUNT 5760466 MCHC 34.3 g/dL 5 Unknown COMPLETE BLOOD COUNT 9988664 PLT 262 10e9/L 08/09/19 15 Unknown COMPLETE BLOOD COUNT 7132397 MPV 10.9 fL 5 Unknown COMPLETE BLOOD COUNT 2686326 SAM % 58.7 % 5 Unknown COMPLETE BLOOD COUNT 2346860 LY % 21.5 % 5 Unknown COMPLETE BLOOD COUNT 6874995 MON % 14.0 % 5 Unknown COMPLETE BLOOD COUNT 3585732 EOS % 5.3 % 5 Unknown COMPLETE BLOOD COUNT 6689059 BASO % 0.5 % 5 Unknown COMPLETE BLOOD COUNT [id number] RDW 13.1 % 5 Unknown COMPLETE BLOOD COUNT [id number] ABS SAM 3.46 10e9/L 015 Unknown COMPLETE BLOOD COUNT [id number] ABS LYMPH 1.27 10e9/L 015 Unknown COMPLETE BLOOD COUNT [id number] ABS MONO 0.83 10e9/L 015 Unknown COMPLETE BLOOD COUNT [id number] ABS EOS 0.31 10e9/L 015 Unknown COMPLETE BLOOD COUNT [id number] ABS BASO 0.03 10e9/L 015 Unknown COMPLETE BLOOD COUNT [id number] RDW-SD 41.2 fL 5 Unknown THYROID STIMULATING HORMONE [id number] TSH 5.395 uIU/ML 08/09/2014 Unknown LIPID GROUP [id number] HDL TEST 52 MG/DL 08/09/2014 Unknown LIPID GROUP [id number] TRIG 113 MG/DL 08/09/2014 Unknown LIPID GROUP [id number] TEST LDL 158 MG/DL 08/09/2014 Unknown LIPID GROUP [id number] CHOL 233 MG/DL 08/09/2014 Unknown LIPID GROUP [id number] RCHOL/HDL 4.48 RATIO 08/09/2014 Unknow n LIPID GROUP 40834 NON-HDL CH 181 MG/DL 08/09/2014 Unknow n COMPLETE BLOOD COUNT [id number] WBC 6.8 10e9/L 09/09/19 14 Unknown COMPLETE BLOOD COUNT [id number] RBC 5.18 10e12/L 2013 Unknown COMPLETE BLOOD COUNT [id number] HGB 15.2 g/dL 4 Unknown COMPLETE BLOOD COUNT [id number] HCT DET 44.7 % 4 Unknown COMPLETE BLOOD COUNT [id number] MCV 86.3 fL 4 Unknown COMPLETE BLOOD COUNT [id number] MCH 29.3 pg 4 Unknown COMPLETE BLOOD COUNT [id number] MCHC 34.0 g/dL 4 Unknown COMPLETE BLOOD COUNT [id number] PLT 236 10e9/L 09/09/19 14 Unknown COMPLETE BLOOD COUNT [id number] MPV 11.0 fL 4 Unknown COMPLETE BLOOD COUNT [id number] SAM % 58.2 % 4 Unknown COMPLETE BLOOD COUNT [id number] LY % 21.9 % 4 Unknown COMPLETE BLOOD COUNT [id number] MON % 12.5 % 4 Unknown COMPLETE BLOOD COUNT [id number] EOS % 7.3 % 4 Unknown COMPLETE BLOOD COUNT [id number] BASO % 0.1 % 4 Unknown COMPLETE BLOOD COUNT [id number] RDW 13.6 % 4 Unknown COMPLETE BLOOD COUNT [id number] ABS SAM 3.96 10e9/L 014 Unknown COMPLETE BLOOD COUNT [id number] ABS LYMPH 1.49 10e9/L 014 Unknown COMPLETE BLOOD COUNT [id number] ABS MONO 0.85 10e9/L 014 Unknown COMPLETE BLOOD COUNT [id number] ABS EOS 0.50 10e9/L 014 Unknown COMPLETE BLOOD COUNT [id number] ABS BASO 0.01 10e9/L 014 Unknown COMPLETE BLOOD COUNT [id number] RDW-SD 42.3 fL 4 Unknown COMPREHENSIVE METABOLIC 77683 AST 27 U/L 2013 Unknown COMPREHENSIVE METABOLIC 18776 ALT 30 IU/L 2013 Unknown COMPREHENSIVE METABOLIC 79656 BUN 16 MG/DL 2013 Unknown COMPREHENSIVE METABOLIC 22884 ALBUMIN 4.9 GM/DL 2013 Unknown COMPREHENSIVE METABOLIC 22420 CHLORIDE 99 MMOL/L 2013 Unknown COMPREHENSIVE METABOLIC 43889 BILI TOT 0.7 MG/DL 2013 Unknown COMPREHENSIVE METABOLIC 30216 ALK PHOS 53 U/L 2013 Unknown COMPREHENSIVE METABOLIC 52444 SODIUM 137 MMOL/L 09/08 Unknown COMPREHENSIVE METABOLIC 46046 CREATININE 1.01 MG/DL 11/2013 Unknown COMPREHENSIVE METABOLIC 65392 CALCIUM 10.0 MG/DL 09/08 Unknown COMPREHENSIVE METABOLIC 06093 POTASSIUM 4.4 MMOL/L 09/08 Unknown COMPREHENSIVE METABOLIC 53115 PROT TOT 7.1 GM/DL 2013 Unknown COMPREHENSIVE METABOLIC 74664 Glucose 148 MG/DL 2013 Unknown COMPREHENSIVE METABOLIC 68254 BICARB 30 MMOL/L 2013 Unknown COMPREHENSIVE METABOLIC 96082 ANION GAP 8 MEQ/L 2013 Unknown GFR CALC 8030260 GFR AA >60 ML/MIN 09/08/2013 Unknown GFR CALC 5681752 GFR NON-AA >60 ML/MIN 09/08/2013 Unknown FREE T4 44501 FREE T4 1.08 NG/DL 09/08/2013 Unknown GLYCOSYLATED HEMOGLOBIN TEST 33673 A1C HPLC 68074-4 7.3 % 0 09/08/2013 Unknown THYROID STIMULATING HORMONE 90972 TSH 5.454 uIU/ML 09/08/2013 Unknown LIPID GROUP 26819 HDL TEST 59 MG/DL 09/08/2013 Unknown LIPID GROUP 42806 TRIG 92 MG/DL 09/08/2013 Unknown LIPID GROUP 71098 TEST LDL 83 MG/DL 09/08/2013 Unknown LIPID GROUP 96618 CHOL 160 MG/DL 09/08/2013 Unknown LIPID GROUP 69382 RCHOL/HDL 2.71 RATIO 09/08/2013 Unknow n VITAMIN B 12 FOLIC ACID 03291|82324 VIT B 12 467 PG/ML 12/2012 Unknown VITAMIN B 12 FOLIC ACID 92368|71243 FOLIC ACID 12.2 NG/ML Unknown VITAMIN B 12 FOLIC ACID 45758|63747 VIT B 12 467 PG/ML 12/2012 Unknown THYROID STIMULATING HORMONE 76928 TSH 4.557 uIU/ML 03/12/2013 Unknown HEMOGLOBIN A1C (GLYCOSYLATED) 8612637 A1C HPLC 85982-3 7.6 % 03/12/2013 Unknown VITAMIN D TOTAL (25 HYDROXY) 07309 VIT D TOTL 17 NG/ML 03/12/2013 Unknown FREE T4 57475 FREE T4 1.07 NG/DL 03/12/2013 Unknown URIC ACID 32825 URIC ACID 5.2 MG/DL 03/12/2013 Unknown Procedures Procedure Codes Date THER/PROPH/DIAG INJ SC/IM CPT-4: 63528 05/13/2019 TRIAMCINOLONE ACET INJ NOS CPT-4: J3301 05/13/2019 DEXAMETHASONE SODIUM PHOS CPT-4: J1100 05/13/2019 THER/PROPH/DIAG INJ SC/IM CPT-4: 82325 02/22/2019 TRIAMCINOLONE ACET INJ NOS CPT-4: J3301 02/22/2019 FLU VACC PRSV FREE INC ANTIG 65 AND OLDER CPT-4: 96967 04/21/2018 ADMIN INFLUENZA VIRUS VAC CPT-4: G0008 04/21/2018 PRESCRIP TRANSMIT VIA ERX SY CPT-4: G8553 04/21/2018 DESTRUCT PREMALG LESION (Cryosurgery) CPT-4: 71663 FLU VACC PRSV FREE INC ANTIG 65 AND OLDER CPT-4: 56987 04/22/2017 ADMIN INFLUENZA VIRUS VAC CPT-4: G0008 04/22/2017 PRESCRIP TRANSMIT VIA ERX SY CPT-4: G8553 10/10/2016 PRESCRIP TRANSMIT VIA ERX SY CPT-4: G8553 08/29/2015 ROUTINE VENIPUNCTURE CPT-4: 67374 07/26/2015 ASSAY OF FREE THYROXINE CPT-4: 92743 07/26/2015 ASSAY THYROID STIM HORMONE CPT-4: 78090 07/26/2015 COMPREHEN METABOLIC PANEL CPT-4: 88841 07/26/2015 COMPLETE CBC W/AUTO DIFF WBC CPT-4: 45485 07/26/2015 LIPID PANEL CPT-4: 09586 07/26/2015 ASSAY OF PSA TOTAL CPT-4: 75423 07/26/2015 A1C HPLC CPT-4: 39638 07/26/2015 ROUTINE VENIPUNCTURE CPT-4: 89415 01/17/2015 ASSAY OF FREE THYROXINE CPT-4: 42604 01/17/2015 ASSAY THYROID STIM HORMONE CPT-4: 51125 01/17/2015 COMPREHEN METABOLIC PANEL CPT-4: 47679 01/17/2015 COMPLETE CBC W/AUTO DIFF WBC CPT-4: 70383 01/17/2015 A1C HPLC CPT-4: 56376 01/17/2015 VITAMIN B-12 CPT-4: 87183 01/17/2015 PPPS, subseq visit CPT-4: G0439 08/04/2014 PRESCRIP TRANSMIT VIA ERX SY CPT-4: G8553 02/18/2014 FLUZONE, 5ML (Medicare) CPT-4: Q2038 07/22/2013 ADMIN INFLUENZA VIRUS VAC CPT-4: G0008 07/22/2013 PRESCRIP TRANSMIT VIA ERX SY CPT-4: G8553 04/28/2013 ROUTINE VENIPUNCTURE CPT-4: 64009 03/12/2013 VITAMIN D TOTAL (25 HYDROXY) CPT-4: 45613 03/12/2013 VITAMIN B 12 FOLIC ACID CPT-4: 84226|07290 03/12/2013 A1C GLYCOSYLATED HEMOGLOBIN TEST CPT-4: 81070 013 ASSAY OF BLOOD/URIC ACID CPT-4: 69195 03/12/2013 ASSAY OF FREE THYROXINE CPT-4: 41670 03/12/2013 ASSAY THYROID STIM HORMONE CPT-4: 88385 03/12/2013 CUR TOBACCO NON-USER CPT-4: G8457 03/11/2013 [...] 1: 156/70 Code: 8480-6 BMI: 35.0 Code: 04190-5 Heart Rate 1: 68 bpm Height: 5'10" Respiratory Rate: 20 bpm SpO2: 95% Tempera ture: 36.5 (C) / 97.7 (F) Weight: 244 lbs 04/21/2018 Blood Pressure 1: 124/80 Code: 8480-6 BMI: 34.4 Code: 95784-6 Heart Rate 1: 80 bpm Height: 5'10" Respiratory Rate: 20 bpm SpO2: 96% Tempera ture: 37.0 (C) / 98.6 (F) Weight: 240 lbs 01/06/2018 Blood Pressure 1: 138/82 Code: 8480-6 BMI: 33.9 Code: 07960-0 Heart Rate 1: 96 bpm Height: 5'10" Respiratory Rate: 24 bpm SpO2: 98% Tempera ture: 35.9 (C) / 96.6 (F) Weight: 236 lbs 10/22/2017 Blood Pressure 1: 144/70 Code: 8480-6 BMI: 34.7 Code: 82158-6 Heart Rate 1: 72 bpm Height: 5'10" Respiratory Rate: 20 bpm SpO2: 96% Tempera ture: 36.9 (C) / 98.4 (F) Weight: 242 lbs 04/22/2017 Blood Pressure 1: 146/82 Code: 8480-6 BMI: 32.9 Code: 08207-1 Heart Rate 1: 104 bpm Height: 5'10" Respiratory Rate: 20 bpm SpO2: 95% Tempera ture: 36.9 (C) / 98.5 (F) Weight: 229 lbs 10/10/2016 Blood Pressure 1: 124/64 Code: 8480-6 BMI: 32.9 Code: 38934-9 Heart Rate 1: 64 bpm Height: 5'10" [...] 1: 146/90 Code: 8480-6 BMI: 34.1 Code: 96185-4 Heart Rate 1: 80 bpm Height: 5'10" Respiratory Rate: 20 bpm Temperature: 36 .8 (C) / 98.2 (F) Weight: 238 lbs 01/17/2015 Blood Pressure 1: 116/60 Code: 8480-6 BMI: 32.7 Code: 64616-0 Heart Rate 1: 84 bpm Height: 5'10" Respiratory Rate: 20 bpm Temperature: 36 .7 (C) / 98.0 (F) Weight: 228 lbs 09/29/2014 Blood Pressure 1: 136/78 Code: 8480-6 BMI: 33.9 Code: 17627-5 Heart Rate 1: 80 bpm Height: 5'10" Respiratory Rate: 20 bpm Temperature: 36 .6 (C) / 97.9 (F) Weight: 236 lbs 08/04/2014 Blood Pressure 1: 132/70 Code: 8480-6 BMI: 32.9 Code: 43741-9 Heart Rate 1: 72 bpm Height: 5'10" Respiratory Rate: 20 bpm Temperature: 36 .7 (C) / 98.0 (F) Weight: 229 lbs 02/18/2014 Blood Pressure 1: 124/82 Code: 8480-6 Heart Rate 1: 82 bpm Respiratory Rate: 18 bpm Temperature: 36.4 (C) / 97.5 (F) Weight: 232 lbs 07/29/2013 Blood Pressure 1: 146/80 Code: 8480-6 BMI: 34.1 Code: 66629-1 Heart Rate 1: 64 bpm Height: 5'10" Respiratory Rate: 20 bpm Temperature: 36 .9 (C) / 98.5 (F) Weight: 238 lbs 05/26/2013 Blood Pressure 1: 142/90 Code: 8480-6 BMI: 34.0 Code: 01961-1 Heart Rate 1: 84 bpm Height: 5'10" Respiratory Rate: 20 bpm Temperature: 36 .7 (C) / 98.0 (F) Weight: 237 lbs 04/28/2013 Blood Pressure 1: 118/78 Code: 8480-6 BMI: 32.9 Code: 81010-3 Heart Rate 1: 74 bpm Height: 5'10" Respiratory Rate: 20 bpm Temperature: 36 .1 (C) / 97.0 (F) Weight: 229 lbs 03/11/2013 Blood Pressure 1: 146/80 Code: 8480-6 BMI: 31.5 Code: 40265-4 Heart Rate 1: 80 bpm Height: 6' [...] care Encounters Encounter Performer Location Codes Date ([id number]) OFFICE/OUTPATIENT VISIT EST Diagnosis: Other dyspnea and respiratory abnormality[ICD10: R06.09] Diagnosis: Obstructive sleep apnea[ICD10: G47.33] Diagnosis: Hypotension[ICD10: I95.9] Xiomara Bettencourt [facility] CPT -4: 51356 10/12/2019 ([id number]) OFFICE/OUTPATIENT VISIT EST Diagnosis: Upper respiratory infection[ICD10: J06.9] Pennie Pinonnoris Dinh MOICARLOS SEdvin ARELYSHAAN [facility] CPT-4: 94373 06/02/2019 ([id number]) OFFICE/OUTPATIENT VISIT EST Diagnosis: Sinusitis[ICD10: J32.9] Diagnosis: Allergic rhinitis[ICD10: J30.9] Pennie Pinondi XIOMARA SEdvin REEDER [facility] CPT-4: 15835 05/13/2019 ([id number]) OFFICE/OUTPATIENT VISIT EST Diagnosis: Pneumonia[ICD10: J18.9] Pennie Pinonnoris RENAEXIOMARA SEdvin ARELYND [facility] CPT-4: 33442 04/26/2019 ([id number]) OFFICE/OUTPATIENT VISIT EST Diagnosis: Acute sinusitis, unspecified[ICD10: J01.90] Pennie Pinonnoris RENAEXIOMARA SEdvin ARELYNDER [facility] CPT-4: 79204 02/22/2019 ([id number]) OFFICE/OUTPATIENT VISIT EST Diagnosis: Cervicalgia[ICD10: M54.2] Xiomara Gan ARELY STEPHANIE [facility] CPT-4: 98482 11/25/2018 ([id number]) OFFICE/OUTPATIENT VISIT EST Diagnosis: Acute sinusitis, unspecified[ICD10: J01.90] Diagnosis: Myalgia, unspecified site[ICD10: M79.10] Diagnosis: Cervicalgia[ICD10: M54.2] Xiomara MCGEE [facility] CPT-4: 34413 11/19/2018 ([id number]) OFFICE/OUTPATIENT VISIT EST Diagnosis: Low back pain[ICD10: M54.5] Diagnosis: Essential (primary) hypertension[ICD10: I10] Diagnosis: 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, 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] Diagnosis: Paroxysmal atrial fibrillation[ICD10: I48.0] [facility]: 92460 07/22/2018 ([id number]) OFFICE/OUTPATIENT VISIT EST Diagnosis: Type 2 diabetes mellitus with diabetic neuropathy, unspecified[ICD10: E11.40] Diagnosis: Hyperlipidemia, unspecified[ICD10: E78.5] Diagnosis: Essential (primary) hypertension[ICD10: I10] Diagnosis: Chronic kidney disease, stage 1[ICD10: N18.1] Diagnosis: Benign prostatic hyperplasia with lower urinary tract symptoms[ICD10: N40.1] Diagnosis: FLU VACCINE[ICD10: Z23] Xiomara Gan [facility] CPT-4: 35734 04/21/2018 OFFICE/OUTPATIENT VISIT EST Diagnosis: Type 2 diabetes mellitus with hyperglycemia[ICD10: E11.65] Diagnosis: Essential (primary) hypertension[ICD10: I10] Diagnosis: Mixed hyperlipidemia[ICD10: E78.2] Diagnosis: Other fatigue[ICD10: R53.83] [facility]: 00890 01/06/2018 ([id number]) OFFICE/OUTPATIENT VISIT EST Diagnosis: Type 2 diabetes mellitus with diabetic neuropathy, unspecified[ICD10: E11.40] Diagnosis: Essential (primary) hypertension[ICD10: I10] Diagnosis: Pain in right thigh[ICD10: M79.651] Diagnosis: Pain in left leg[ICD10: M79.605] Diagnosis: Localized swelling, mass and lump, left lower limb[ICD10: R22.42] Diagnosis: OSTEOARTHRISIS MULTI SITES[ICD10: M19.90] Diagnosis: FLU VACCINE[ICD10: Z23] Xiomara [facility] CPT-4: 17595 04/22/2017 ([id number]) OFFICE/OUTPATIENT VISIT EST Diagnosis: Essential (primary) hypertension[ICD10: I10] Diagnosis: Type 2 diabetes mellitus with hyperglycemia[ICD10: E11.65] Diagnosis: Angina pectoris, unspecified[ICD10: I20.9] [facility] CPT-[facility]: 67993 10/10/2016 ([id number]) OFFICE/OUTPATIENT VISIT EST Diagnosis: Cough[ICD10: R05] Diagnosis: Wheezing[ICD10: R06.2] Diagnosis: Chronic obstructive pulmonary disease, unspecified[ICD10: J44.9] Sh[facility]an [facility] CPT-4: 13978 08/31/2015 OFFICE/OUTPATIENT VISIT EST Diagnosis: Acute bronchitis, unspecified[ICD10: J20.9] Diagnosis: Wheezing[ICD10: R06.2] Kelsie [facility] CPT-4: 33595 08/29/2015 ([id number]) OFFICE/OUTPATIENT VISIT EST Diagnosis: Type 2 diabetes mellitus with diabetic neuropathy, unspecified[ICD10: E11.40] Diagnosis: Hyperlipidemia, unspecified[ICD10: E78.5] Diagnosis: Essential (primary) hypertension[ICD10: I10] Diagnosis: Encounter for general adult medical examination without abnormal findings[ICD10: Z00.00] [facility] CPT-[facility]: 38803 07/26/2015 OFFICE/OUTPATIENT VISIT EST Diagnosis: Type 2 diabetes mellitus with hyperglycemia[ICD10: E11.65] Diagnosis: Unspecified osteoarthritis, unspecified site[ICD10: M19.90] Diagnosis: Other instability, right knee[ICD10: M25.361] [facility] CPT-4: 07205 07/24/2015 ([id number]) OFFICE/OUTPATIENT VISIT EST Diagnosis: Pain in leg, unspecified[ICD10: M79.606] Diagnosis: Type 2 diabetes mellitus with diabetic neuropathy, unspecified[ICD10: E11.40] Xiomara [facility] CPT-4: 44824 05/01/2015 ([id number]) OFFICE/OUTPATIENT VISIT EST Diagnosis: MALAISE AND FATIGUE[ICD9: 780.79] Diagnosis: 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, 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] Diagnosis: CAD[ICD9: 414.00] Diagnosis: ANEMIA NOS[ICD9: 285.9] Xiomara [facility]IDE ER [facility] CPT-4: 54727 01/17/2015 ([id number]) OFFICE/OUTPATIENT VISIT EST Diagnosis: Skin lesion[ICD9: 709.9] Xiomara HAND [facility] CPT-4: 88261 09/29/2014 OFFICE/OUTPATIENT VISIT EST Diagnosis: GASTROENTERITIS[ICD9: 558.9] Diagnosis: GERD[ICD9: 530.81] Kelsie VanMessi XIOMARA [facility] CPT-4: 52615 02/18/2014 ([id number]) OFFICE/OUTPATIENT VISIT EST Diagnosis: 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I, UNCONTROLLED[ICD9: 250.02] Xiomara [facility] CPT-4: 57865 07/29/2013 ([id number]) OFFICE/OUTPATIENT VISIT EST Diagnosis: FLU VACCINE[ICD9: V04.81] Xiomara MCGEE [facility] CPT-4: 46746 07/22/2013 ([id number]) OFFICE/OUTPATIENT VISIT EST Diagnosis: 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I, UNCONTROLLED[ICD9: 250.02] Diagnosis: HYPERTENSION[ICD9: 401.9] Xiomara [facility]EE [facility] CPT-4: 11787 05/26/2013 ([id number]) OFFICE/OUTPATIENT VISIT EST Diagnosis: MONONEURITIS[ICD9: 355.9] Diagnosis: RESTLESS LEGS SYNDROME[ICD9: 333.94] Diagnosis: HYPERTENSION[ICD9: 401.9] Diagnosis: CAD[ICD9: 414.00] Diagnosis: Weakness[ICD9: 780.79] Xiomaar Dolan [facility] CPT-4: 39057 04/28/2013 ([id number]) OFFICE/OUTPATIENT VISIT EST Diagnosis: 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[ICD9: 250.01] Diagnosis: MONONEURITIS[ICD9: 355.9] Diagnosis: HYPERLIPIDEMIA NEC/NOS[ICD9: 272.4] Diagnosis: CAD[ICD9: 414.00] Xiomara Gan [facility] CPT-4: 22013 03/12/2013 OFFICE/OUTPATIENT VISIT NEW Diagnosis: CAD[ICD9: 414.00] Diagnosis: HYPERLIPIDEMIA NEC/NOS[ICD9: 272.4] Diagnosis: HYPERTENSION[ICD9: 401.9] Diagnosis: Neuropathy[ICD9: 355.9] Diagnosis: RESTLESS LEGS SYNDROME[ICD9: 333.94] Xiomara Gan ARELYSHERITA [facility] CPT-4: 37028 03/11/2013 Plan of Care Planned Activity Notes Codes Status Date Visit Diagnosis Plan: Hypotension Discussion: Saw Dr. [...] : G47.33 10/12/2019 Appointment: Xiomara Bettencourt [facility]el[facility] [phone] [facility] [place] RESCHEDULED 09/23/2019 Care Plan: COMPREHEN METABOLIC PANEL SERGEI NC : 35932-7 Pending 09/20/2019 Care Plan: LIPID PANEL LOINC : 94882-9 Pending 09/20/2019 Care Plan: A1C HPLC LOINC : 98091-6 Pending 09/20/2019 Care Plan: COMPLETE CBC W/AUTO DIFF WBC LOINC : 23375-6 Pending 09/20/2019 Visit Diagnosis Plan: Upper respiratory infection Disc ussion: discussed that most likely viral. push fluids and rest through the week. patient has left over levaquin at home (5 days worth). instructed patient to start taking if he gets worse later this week and to call us next week if no improvement. ICD-9 : 465.9 ICD-10 : J06.9 06/02/2019 Appointment: Pennie Pizarro [address] [place], [place] [address] ACUTE ILLNESS 06/02/2019 Visit Diagnosis Plan: Allergic [...] ICD-10 : J30.9 05/13/2019 Appointment: Pennie Pizarro [address] [place], [place] [id number] ACUTE ILLNESS 05/13/2019 Appointment: Xiomara Bettencourt WPtel: [phone] [facility] US CANCELED 04/27/2019 Visit Diagnosis Plan: Pneumonia Discussion: will obtai n records from urgent care. instructed to finish out doxy. no rhonchi or crackles auscultated. symbicort sample given to patient with instructions to use bid. call office later this week with new or worsening symptoms. ICD-9 : 486 ICD-10 : J18.9 04/26/2019 Appointment: Pennie Pizarro [address] [place], [place] [phone] FOLLOW UP 04/26/2019 Visit Diagnosis Plan: Acute [...] : J01.90 02/22/2019 Appointment: Moira, Pennie R. [address] [place], [place] [id number] ACUTE ILLNESS 02/22/2019 Patient Education: prednisone- Opt[employer] Coupon [phone] [email or web address]/samplemd/resources/getResource/61/[email or web address] Completed 02/22/2019 Visit Diagnosis Plan: Cervicalgia Discussion: Check Ce rvical Spine X-ray Will likely need PT ICD-9 : 723.1 ICD-10 : M54.2 11/25/2018 Appointment: Xiomara Bettencourt WPtel: [phone] [facility] ACUTE ILLNESS 11/25/2018 Visit Plan: Saline nasal [...] M79.10 11/19/2018 Appointment: Xiomara Bettencourt WPtel: [phone] [facility] ACUTE ILLNESS 11/19/2018 Patient Education: baclofen- [employer] Coupon [phone] [email or web address]/samplemd/resources/getResource/61/[email or web address]-[email or web address] Completed 11/19/2018 Visit Diagnosis Plan: Essential (primary) [...] E10.9 07/22/2018 Appointment: Xiomara Bettencourt WPtel: [phone] [facility] FOLLOW UP 07/22/2018 Visit Diagnosis Plan: Benign prostatic h yperplasia with lower urinary tract symptoms Discussion: Trial of flomax Call in 1 mo [facility] on how doing Follow [...] N18.1 04/21/2018 Appointment: Xiomara Bettencourt WPtel: [phone] [facility] [place] FOLLOW UP 04/21/2018 Patient Education: Patient [...] ICD-10 : E11.65 01/06/2018 Appointment: Pennie Pizarro [address] [place] [address] MEDICATION REVIEW 01/06/2018 Patient Education: Patient Medication Summary Completed 01/06/2018 Appointment: Xiomara Bettencourt WPtel: [address] [place] [address] NO SHOW 01/05/2018 Appointment: Xiomara Bettencourt WPtel: [address] [place] [address] US CANCELED 12/31/2017 Visit Diagnosis Plan: Actinic keratosis Discussion: Cr yotherapy as above but will see derm if lesions do not resolve ICD-9 : 702.0 ICD-10 : L57.0 10/22/2017 Appointment: Xiomara Bettencourt WPtel: [address] [place] [address] ACUTE ILLNESS 10/22/2017 Patient Education: Patient Medication [...] M19.90 04/22/2017 Appointment: Xiomara Bettencourt WPtel: [phone] [facility] [place] FOLLOW UP 04/22/2017 Patient Education: Patient Medication Summary Completed 04/22/2017 Patient Education: Patient Medication Summary Completed 04/16/2017 Care Plan: COMPREHEN METABOLIC PANEL SERGEI NC : 34975-8 Pending 04/16/2017 Care Plan: LIPID PANEL LOINC : 14729-9 Pending 04/16/2017 Care Plan: CBC Pending 04/16/2017 Care Plan: A1C HPLC LOINC : 85309-1 Pending 04/16/2017 Referral: Inocencio Goodson [facility]el[phone] [facility] [facility] Confirmed 10/14/2016 Visit Diagnosis Plan: Angina pectoris, unspecified Dis cussion: Continue imdur and see cardiology To ER if chest pain returns ICD-9 : 413.9 ICD-10 : I20.9 10/10/2016 Visit Diagnosis Plan: Type 2 diabetes mellitus with hy perglycemia Discussion: Continue toujeo Accuchecks BID Follow Up: 4 months ICD-9 : 250.02 ICD-10 : E11.65 10/10/2016 Appointment: Xiomara Bettencourt WPtel: [address] [place] [address] FOLLOW UP 10/10/2016 Patient Education: Patient Medication Summary Completed 10/10/2016 Patient Education: Patient Medication Summary Completed 09/16/2016 Care Plan: COMPREHEN METABOLIC PANEL SERGEI NC : 31410-2 Pending 09/16/2016 Care Plan: ASSAY THYROID STIM HORMONE Pen ding 09/16/2016 Care Plan: ASSAY OF FREE THYROXINE Pendin g 09/16/2016 Care Plan: LIPID PANEL LOINC : 03004-1 Pending 09/16/2016 Care Plan: CBC Pending 09/16/2016 Care Plan: A1C HPLC LOINC : 52047-7 Pending 09/16/2016 Visit Plan: CXR now to further evaluate symptoms Suspect viral since he has been on 2 rounds of antibiotics If chronic lung disease evident, will consider keeping on symbicort correction Sample inhaler given today with instructions on use Continue oral prednisone, would like to avoid injection if possible considering his DM status and he is stable right now Continue albuterol PRN Will call with CXR results 08/31/2015 Appointment: Shannan Grimes [address] [place] [address] 08/31 confirmed- SP ACUTE ILLNESS 08/31/2015 Patient Education: Patient Medication Summary Completed 08/31/2015 Visit Plan: Albuterol INH via SVN every 4 hours Prednisone 20 mg PO BID Notify for worsening symptoms 08/29/2015 Appointment: Kelsie Grubbs WPtel: [address] [place], [place] [phone] ACUTE ILLNESS 08/29/2015 Patient Education: Patient Medication Summary Completed 08/29/2015 Appointment: Xiomara Bettencourt WPtel: [address] [place], [place] [phone] LAB 07/26/2015 Patient Education: Patient Medication Summary Completed 07/26/2015 Visit Plan: Return in am for fasting lab s - CBC, CMP, TSH, Free T4, HgbA1C Change Levemir to Toujeo - Continue 35 Units q am - sample given Start physical Therapy for increased quadriceps strengthening and decreased pain in knees, bilaterally. 07/24/2015 Appointment: Humera Kelsie Pushpa WPtel: [address] [place], [place] [phone] 07/21 appt confirmed cn FOLLOW UP 07/24/19 Appointment: DaPrabhakarKelsie dixon WPtel: [address] [place], [place] [phone] FOLLOW UP 07/24/2015 Patient Education: Patient Medication [...] with insulin 05/01/2015 Appointment: Xiomara Bettencourt WPtel: [address] [place], [place] [phone] 04/28 confirmed~sl ACUTE ILLNESS 05/01/2015 Patient Education: Patient Medication Summary Completed 05/01/2015 Patient Education: Patient Medication Summary Completed 01/19/2015 Care Plan: URINALYSIS AUTO W/O SCOPE SERGEI NC : 91310-5 Pending 01/19/2015 Visit Plan: I have went through his medi cations in past and stopped meds but he adjusts his meds on his own and has restarted some Stop Amaryl Once again discussed not using indomethacin routinely due to taking plavix and aspirin daily and long-term use is dangerous Check CBC, CMP, TSH, free T4, B12 and HbA1C Patient has seen Cardiology recently but no cardiac cath done--had chemical stress test 01/17/2015 Appointment: Xiomara Bettencourt WPtel: [address] [place], [place] [phone] 01/16 vm cn ACUTE ILLNESS 01/17/2015 Patient Education: Patient Medication Summary Completed 01/17/2015 Visit Plan: See Dr. Garvin for removal 09/29/2014 Appointment: Xiomara Bettencourt WPtel: [address] [place] [address] ACUTE ILLNESS 09/29/2014 Referral: Colt Garvin WPtel: [address] Referral Initiated 09/29/2014 Patient Education: Patient Medication Summary Completed 09/29/2014 Visit Plan: Check CBC, CMP, TSH, free T4 , HbA1C, Lipids Accuchecks daily alternating times Patient has been adjusting own meds and has not taken any cholesterol meds for sometime Will check into surgery on right [facility] at [facility] Check carotid dopplers 08/04/2014 Appointment: Xiomara Bettencourt WPtel: [address] [place] [address] Annual Well Visit 08/04/2014 Patient Education: Patient Medication Summary Completed 08/04/2014 Appointment: Kelsie Grubbs WPtel: [address] [place] [address] ACUTE ILLNESS 02/18/2014 Patient Education: Patient Medication Summary Completed 02/18/2014 Patient Education: [facility] - Saving AutoInj - 18+ - Dynamic Portal ID Completed 02/18/2014 Appointment: Xiomara Bettencourt WPtel: [address] [place] [address] LAB 09/08/2013 Visit Plan: Check fasting lab in 1mo Con tinue Lantus and accuchecks at least BID 07/29/2013 Appointment: Xiomara Bettencourt WPtel: [address] [place] [address] FOLLOW UP 07/29/2013 Patient Education: Patient Medication Summary Completed 07/29/2013 Appointment: Xiomara Bettencourt WPtel: [address] [place] [address] INJECTION 07/22/2013 Patient Education: Patient Medication Summary Completed 07/22/2013 Visit Plan: Pt has been self-adjusting m eds Stop metformin and amaryl Use Levemir 25u sc BID and call in 1wk with BS readings 05/26/2013 Appointment: Xiomara Bettencourt WPtel[facility] [phone] [facility] [id number] FOLLOW UP 05/26/2013 Patient Education: Patient Medication Summary Completed 05/26/2013 Visit Plan: DC Metformin Increase Lantus to 30u sc daily Change lisinopril to lisinopril HCT 20/25mg q AM Continue Gabapentin at current dose 04/28/2013 Appointment: Xiomara Bettencourt WPtel: [address] [place], [place] [phone] FOLLOW UP 04/28/2013 Patient Education: Patient Medication Summary Completed 04/28/2013 Appointment: Xiomara Bettencourt WPtel: [address] [place], [place] [phone] LAB 03/12/2013 Patient Education: Patient Medication Summary Completed 03/12/2013 Visit Plan: Trial of neurontin 400mg q H S Obtain most recent lab results Change levemir to lantus per pt request Pt goes for sleep study tonite 03/11/2013 Appointment: Xiomara Bettencourt WPtel: [phone] [id number] 02/01paperwork mailed 03/10 confirmed with spouse NEW PATIENT 11/2012 Patient Education: Patient Medication Summary Completed 03/11/2013 Instructions Comment . Saline nasal flushes prn. Tylenol/Motr in prn headache. Notify if persists/symptoms worsening. . CXR now to further evaluate symptoms Suspect viral since he has been on 2 rounds of antibiotics If chronic lung disease evident, will consider keeping on [employer] Sample inhaler given today with instructions on [...] to taking plavix and aspirin daily and long-term use is dangerous Check CBC, CMP, TSH, [...] check into surgery on right knee at [facility] Check carotid dopplers . Check fasting [...]
--- OUTSIDE RECORDS SUMMARY | 2020-02-02 21:44 | XMS REPORT | CCD ---
Author Author Sheng Bettencourt D.O. Organization [facility] Address [address] [place] [address] Phone Care Team Providers Care Director Investor Relations Name Role Phone PP Unavailable CCM Unavailable Summary Purpose Interface Exchange Insurance Providers Payer name Policy type / Coverage type Covered constitution party ID Effective Begin Date Effective End Date WPS MEDICARE PART B [place] Medicare Part B [id number] 2018 Unknown [facility] Medicare Part B [id number] 2018 Un known Family history Mother Diagnosis Age At Onset Diabetes mellitus Type 2 Unknown Hypercholesterolemia Unknown Father Diagnosis Age At Onset No Family Disease Entered N/A Social History Social History Element Codes Description Effective Dates Marital status Unknown 03/11/2013 Number of children Unknown 4 03/11/2013 Employment Unknown Retired 03/11/[address]: 3301910 Former smoker 03/11/[address]: 366884 Currently drinks alc ohol Socially 03/11/2013 Has [...] Problems Condition Codes Effective Dates Condition Status Chronic kidney disease, stage 1 ICD-9: 585.1 [...] Fill Instructions simvastatin 20 mg tablet RxNorm: 977463 1 Tablet(s) Ora l QD Needs updated fasting labs 09/20/2019 12/19/2019 Active Needs updated fa sting labs before 90 day refill Flomax 0.4 mg capsule RxNorm: 819126 TAKE TWO CAPSULES BY MOUTH EVERY EVENING 08/03/2019 No Stop Date Active gabapentin 400 mg capsule RxNorm: 058110 TAKE ONE CAPSU LE BY MOUTH EVERY EVENING 08/02/2019 No Stop Date Active simvastatin 20 mg tablet RxNorm: 679497 1 Tablet(s) Ora l QD Needs updated fasting labs 07/21/2019 08/19/2019 Inactive Needs updated fa sting labs before 90 day refill simvastatin 20 mg tablet RxNorm: 717900 1 Tablet(s) Ora l QD Needs updated fasting labs 06/23/2019 07/20/2019 Inactive Needs updated fa sting labs before 90 day refill Flomax 0.4 mg capsule RxNorm: 775467 1 Capsule(s) Oral QD 9 No Stop Date Active Flomax 0.4 mg capsule RxNorm: 704217 TAKE TWO CAPSULES BY MOUTH EVERY EVENING 03/19/2019 05/12/2019 Inactive Augmentin 500 mg-125 mg tablet RxNorm: 831631 1 Tablet(s) PO BID 03/03/2019 Inactive baclofen 10 mg tablet RxNorm: 425046 TAKE ONE TABLET BY MOUTH EVERY NIGHT AT BEDTIME FOR PAIN OR SPASMS 01/14/2019 05/12/2019 Inactive Flomax 0.4 mg capsule RxNorm: 611581 TAKE TWO CAPSULES BY MOUTH EVERY EVENING 01/12/2019 03/18/2019 Inactive gabapentin 400 mg capsule RxNorm: 334734 1 Capsule(s) PO QPM 201806/27/2019 Inactive baclofen 10 mg tablet RxNorm: 755697 1 Tablet(s) PO QHS for my n/spasm 12/15/2018 01/13/2019 Inactive simvastatin 20 mg tablet RxNorm: 799520 TAKE ONE TABLET BY MOUT H DAILY 12/11/2018 06/22/2019 Inactive OneTouch Ultra Blue Test Strip RxNorm: Use 1 rigoberto t strip three times daily to check blood sugar (Dx:E11.65) 12/07/2018 No Stop Date Active gabapentin 400 mg capsule RxNorm: 059673 TAKE ONE CAPSU LE BY MOUTH EVERY EVENING 12/04/2018 12/29/2018 Inactive baclofen 10 mg tablet RxNorm: 280200 1 Tablet(s) PO QHS for my n/spasm 11/19/2018 12/15/2018 Inactive Flomax 0.4 mg capsule RxNorm: 734109 2 Capsule(s) PO QPM 09/15/2018 0 12/13/2018 Inactive WOULD LIKE 90DS!!! gabapentin 400 mg capsule RxNorm: 187844 TAKE ONE CAPSU LE BY MOUTH EVERY EVENING 07/21/2018 10/18/2018 Inactive simvastatin 20 mg tablet RxNorm: 946275 1 Tablet(s) PO QD 06/15/2018 12/10/2018 Inactive Flomax 0.4 mg capsule RxNorm: 223635 TAKE TWO CAPSULES BY MOUTH EVERY EVENING 06/02/2018 09/15/2018 Inactive WOULD LIKE 90DS!!! Flomax 0.4 mg capsule RxNorm: 564652 2 Capsule(s) PO QPM 04/21/2018 1 07/20/2017 Inactive simvastatin 20 mg tablet RxNorm: 933483 1 Tablet(s) PO QD Take 1 tablet by mouth daily. Patient due for labwork before further refill. 04/06/20182017 Inactive simvastatin 20 mg tablet RxNorm: 526325 Tablet(s) TAKE ONE TABLET BY MOUTH DAILY 03/25/2018 06/15/2018 Inactive simvastatin 20 mg tablet RxNorm: 748063 Tablet(s) TAKE ONE TABLET BY MOUTH DAILY due for appt 12/29/2017 03/25/2018 Inactive simvastatin 20 mg tablet RxNorm: 574242 TAKE ONE TABLET BY MOUT H DAILY 09/03/2017 12/29/2017 Inactive simvastatin 20 mg tablet RxNorm: 173132 1 Tablet(s) PO QD 10/22/2016 11/18/2018 Inactive isosorbide mononitrate ER 60 mg tablet,extended release 24 h r RxNorm: 024747 1 Tablet(s) PO QD 10/22/2016 04/21/2017 Inactive isosorbide mononitrate ER 60 mg tablet,extended release 24 h r RxNorm: 968328 1 Tablet(s) PO QD 10/10/2016 10/21/2016 Inactive simvastatin 20 mg tablet RxNorm: 016826 1 Tablet(s) PO QD 10/10/2016 10/21/2016 Inactive gabapentin 400 mg capsule RxNorm: 215963 1 Capsule(s) PO QPM 201609/20/2016 Inactive Toujeo SoloStar 300 unit/mL (1.5 mL) subcutaneous insulin pe n RxNorm: 4765547 35 Unit(s) SQ QAM 07/23/2016 07/22/2016 Inactive Toujeo SoloStar 300 unit/mL (1.5 mL) subcutaneous insulin pe n RxNorm: 8282854 40 Unit(s) SQ QAM 09/01/2015 No Stop Date Active Symbicort 160 mcg-4.5 mcg/actuation HFA aerosol inhaler RxNo rm: 5639869 2 Puff(s) INH BID 08/31/2015 09/09/2015 Inactive prednisone 20 mg tablet RxNorm: 407625 1 Tablet(s) PO BID 08/29/2015 09/02/2015 Inactive albuterol sulfate 2.5 mg/3 mL (0.083 %) solution for n ebulization RxNorm: 956320 1 Unit(s) INH Q4H as needed 08/29/2015 10/09/2016 Inactive levothyroxine 75 mcg tablet RxNorm: 465982 1 Tablet(s) PO QD 201507/27/2015 Inactive levothyroxine 75 mcg tablet RxNorm: 595400 1 Tablet(s) PO QD 201511/18/2018 Inactive levothyroxine 75 mcg tablet RxNorm: 138830 1 Tablet(s) PO QD 201507/27/2015 Inactive lisinopril 20 mg-hydrochlorothiazide 25 mg tablet RxNorm: 19 7887 TAKE ONE TABLET BY MOUTH EVERY MORNING. REPLACES PLAIN LISINOPRIL 03/06/2015 04/21/2017 Inactive lisinopril 20 mg-hydrochlorothiazide 25 mg tablet RxNorm: 19 7887 TAKE ONE TABLET BY MOUTH EVERY MORNING. REPLACES PLAIN LISINOPRIL 09/08/2014 03/05/2015 Inactive allopurinol 100 mg tablet RxNorm: 682139 1 Tablet(s) PO BID 015 10/09/2016 Inactive [SAVINGS FOR NON-COVERED YULIA GS -- BIN:[id number], PCN: [id number], Group: [id number], ID# [id number], Questions: . THIS IS NOT INSURANCE.] levothyroxine 50 mcg tablet RxNorm: 235842 1 Tablet(s) PO QD 201407/26/2015 Inactive [AttnRPh: Saving apply/adjud icate RxGRP:SG20 RxBIN:[id number] RxPCN: ID#:[id number]] Zegerid 40 mg-1.1 gram capsule RxNorm: 270735 1 Capsule(s) PO QD 03/03/2014 Inactive [AttnRPh: Saving apply/adjud icate RxGRP:SG20 RxBIN:[id number] RxPCN:HT ID#:[id number]] ondansetron 8 mg disintegrating tablet RxNorm: 814231 1 Tablet(s) PO Q8H as needed for [...] 07/28/2013 Inactive gabapentin 400 mg capsule RxNorm: 984540 1 Capsule(s) PO QPM 201207/28/2013 Inactive gabapentin 400 mg capsule RxNorm: 362302 1 Capsule(s) PO QPM 201206/26/2013 Inactive lisinopril 20 mg-hydrochlorothiazide 25 mg tablet RxNorm: 82 3971 1 Tablet(s) PO QAM replaces plain lisinopril 04/28/2013 07/29/2013 Inactive gabapentin 400 mg capsule RxNorm: 494528 1 Capsule(s) PO QPM 201204/27/2013 Inactive gabapentin 400 mg capsule RxNorm: 918271 1 Capsule(s) PO QPM 201203/10/2013 Inactive gabapentin 400 mg capsule RxNorm: 240908 1 Capsule(s) PO QPM 201203/14/2013 Inactive Lantus Solostar 100 unit/mL (3 mL) Sub-Q Insulin Pen RxNorm: 399871 20 Unit(s) SQ QPM 03/11/2013 03/15/2013 Inactive Toujeo SoloStar 300 unit/mL (1.5 mL) subcutaneous insulin pe n RxNorm: 4982894 35 Unit(s) SQ QAM No Start Date Active omeprazole 20 mg capsule,delayed release RxNorm: 066156 1 Capsu le(s) PO QD No Start Date Active isosorbide mononitrate ER 60 mg tablet,extended release 24 h r RxNorm: 016772 1 Tablet(s) PO QD No Start Date Active lisinopril 20 mg tablet RxNorm: 096775 1 Tablet(s) PO QD No Start Date Active Chlortab-4 oral RxNorm: 164544 oral No Start Date Activ e Eliquis 5 mg tablet RxNorm: 3857545 1 Tablet(s) PO BID No Start Date Active oxymetazoline-menthol 0.05 % nasal spray RxNorm: 1134671 Sims N COTY No Start Date Active Patient states he ta kes every 10 hours metformin 500 mg tablet RxNorm: 996108 1 Tablet(s) PO BID No Start Da te Active levothyroxine 50 mcg tablet RxNorm: 834880 1 Tablet(s) PO QD No Start Date Active Plavix 75 mg tablet RxNorm: 651869 1 Tablet(s) PO QD No Start Date Active Norvasc 10 mg tablet RxNorm: 892863 1 Tablet(s) PO QHS No Start Date Active Zantac 150 mg tablet RxNorm: 872324 1 Tablet(s) PO QHS No Start Date Active Toujeo SoloStar 300 unit/mL (1.5 mL) subcutaneous insulin pe n RxNorm: 9362030 30 Unit(s) SQ QAM No Start Date Active glimepiride 4 mg tablet RxNorm: 848093 1 Tablet(s) PO QHS No Start Date 07/26/2015 Inactive allopurinol 100 mg tablet RxNorm: 595270 1 Tablet(s) PO BID No Star t Date 08/10/2014 Inactive Lantus Solostar 100 unit/mL (3 mL) subcutaneous insulin pen RxNorm: 054773 30 Unit(s) SQ QD No Start Date 08/03/2014 Inactive Levemir FlexTouch 100 unit/mL (3 mL) subcutaneous insulin pe n RxNorm: 362293 25 Unit(s) SQ QAM No Start Date 07/23/2015 Inactive Lantus 100 unit/mL Sub-Q RxNorm: 671653 30 Unit(s) SQ QHS No Start Date 05/25/2013 Inactive Lantus Solostar 100 unit/mL (3 mL) Sub-Q Insulin Pen RxNorm: 443544 20 Unit(s) SQ QPM No Start Date 03/10/2013 Inactive OneTouch Ultra Blue Test Strip RxNorm: Use 1 rigoberto t strip three times daily to check blood sugar (Dx:E11.65) No Start Date 12/06/2018 Inactive Levemir FlexTouch 100 unit/mL (3 mL) subcutaneous insulin pe n RxNorm: 814541 30- 35 Unit(s) SQ QAM No Start Date 07/23/2015 Inactive Levemir Flexpen 100 unit/mL (3 mL) solution subcutaneo us insulin pen RxNorm: 975793 20-25 Unit(s) SQ QD No Start Date 07/28/2013 Inactive indomethacin ER 75 mg capsule,extended release RxNorm: 55621 2 1 Capsule(s) PO QAM No Start Date 04/27/2013 Inactive indomethacin ER 75 mg capsule,extended release RxNorm: 00732 2 1 Capsule(s) PO QD No Start Date 01/16/2015 Inactive Vitamin D3 5,000 unit tablet RxNorm: 294648 1 Tablet(s) PO QD No St art Date 08/03/2014 Inactive Levemir Flexpen 100 unit/mL (3 mL) solution subcutaneo us insulin Pen RxNorm: 371501 20 Unit(s) SQ QHS No Start Date 03/10/2013 Inactive Vytorin 10 mg-40 mg tablet RxNorm: 9148328 1/2 Tablet(s) PO QD No S tart Date 04/20/2018 Inactive Toujeo SoloStar 300 unit/mL (1.5 mL) subcutaneous insulin pe n RxNorm: 7916832 35 Unit(s) SQ QAM No Start Date 07/22/2016 Inactive Lantus Solostar 100 unit/mL (3 mL) subcutaneous insulin pen RxNorm: 425068 20 Unit(s) SQ QD No Start Date 08/03/2014 Inactive aspirin 81 mg tablet RxNorm: 912328 1 Tablet(s) PO QD No Start Date 0 08/03/2014 Inactive metformin 500 mg tablet RxNorm: 423581 1 Tablet(s) PO BID No Start Date 07/28/2013 Inactive glimepiride 4 mg tablet RxNorm: 037517 1 Tablet(s) PO BID No Start Date 01/16/2015 Inactive glimepiride 4 mg tablet RxNorm: 783800 1 Tablet(s) PO QD No Start D ate 08/03/2014 Inactive levothyroxine 25 mcg tablet RxNorm: 941652 1 Tablet(s) PO QD No Sta rt Date 08/10/2014 Inactive doxycycline oral RxNorm: 86568 oral No Start Date 05/12/2019 Inac tive aspirin 81 mg tablet RxNorm: 162141 1 Tablet(s) PO QD No Start Date 0 07/21/2018 Inactive isosorbide mononitrate ER 60 mg tablet,extended release 24 h r RxNorm: 839819 1 Tablet(s) PO BID No Start Date 01/16/2015 Inactive metformin 500 mg tablet RxNorm: 940324 1 Tablet(s) PO BID No Start Date 04/27/2013 Inactive glimepiride 4 mg tablet RxNorm: 190627 1 Tablet(s) PO QPM No Start Date 02/21/2019 Inactive Vytorin 10-40 10 mg-40 mg tablet RxNorm: 1122148 1 Tablet(s) PO QHS No Start Date 08/03/2014 Inactive indomethacin 50 mg capsule RxNorm: 205460 1 Capsule(s) PO QHS No St art Date 01/16/2015 Inactive glimepiride 4 mg tablet RxNorm: 546573 1 Tablet(s) PO BID No Start Date 07/28/2013 Inactive Levemir FlexTouch 100 unit/mL (3 mL) subcutaneous insulin pe n RxNorm: 146939 20 Unit(s) SQ QD No Start Date 04/30/2015 Inactive lisinopril 20 mg tablet RxNorm: 074228 1 Tablet(s) PO BID No Start Date 04/27/2013 Inactive Lantus Solostar SubQ RxNorm: Subcutaneous No Start Date 03/15/2013 I nactive allopurinol 300 mg tablet RxNorm: 347308 1 Tablet(s) PO QD No Start Date 08/03/2014 Inactive Fish Oil 1,000 mg capsule RxNorm: 1 Capsule(s) PO QD No Start Date 02/21/2019 Inactive indomethacin 50 mg capsule RxNorm: 401224 1 Capsule(s) PO BID No St art Date 04/20/2018 Inactive levothyroxine 50 mcg tablet RxNorm: 777861 1 Tablet(s) PO QD No Sta rt Date 08/10/2014 Inactive glimepiride 4 mg tablet RxNorm: 398677 1 Tablet(s) PO BID No Start Date 03/15/2013 Inactive indomethacin 50 mg capsule RxNorm: 772920 1 Capsule(s) PO QHS No art Date 04/27/2013 Inactive Medication Administered No Medication Administered data Immunizations Vaccine Codes Date Status Influenza CVX: 135 04/21/2018 Complete Influenza CVX: 135 04/22/2017 Complete Results Observation Observation Code Item Item Code Result Date S ervice Location [facility] 97087 Cholesterol 209 mg/dL 09/17/2016 Unkno wn [facility] 60775 Triglyceride 111 mg/dL 09/17/2016 Unkn own [facility] 16691 HDL CHOLESTEROL 50 mg/dL 09/17/2016 U nknown [facility] 66208 Chol/HDL Ratio 4.18 ratio 09/17/2016 U nknown [facility] 19645 NON-HDL Chol 159 mg/dL 09/17/2016 Unkn own [facility] 66380 LDL Cholesterol 137 mg/dL 09/17/2016 U nknown MEAN GLUC 2633370 Calc Mean Gluc 151 mg/dL 09/17/2016 Unkn own COMPREHENSIVE METABOLIC 52885 AST 23 U/L 2016 Unknown COMPREHENS[facility] METABOLIC 90963 ALT 19 U/L 2016 Unknown [facility] 85879 BUN 15 mg/dL 2016 Unknown [facility]OL[facility] 00358 ALBUMIN 4.3 g/dL 2016 Unknown COMPREHENS[facility] MET[facility]OLIC 82650 CHLORIDE 103 mmol/L 09/17 Unknown COMPREHENS[facility] MET[facility]OLIC 50194 Bili Total 0.6 mg/dL 09/17 Unknown COMPREHENSIVE METABOLIC 93787 ALK PHOS 60 U/L 2016 Unknown COMPREHENSIVE METABOLIC 16209 SODIUM 140 mmol/L 09/17 Unknown COMPREHENSIVE METABOLIC 03374 CREATININE 1.03 mg/dL 09/04 Unknown COMPREHENSIVE METABOLIC 97911 CALCIUM 9.5 mg/dL 2016 Unknown COMPREHENSIVE METABOLIC 43004 POTASSIUM 3.9 mmol/L 09/17 Unknown COMPREHENSIVE METABOLIC 72557 Total Protein 6.9 g/dL Unknown COMPREHENSIVE METABOLIC 88891 Glucose 94 mg/dL 2016 Unknown COMPREHENSIVE METABOLIC 29730 Bicarbonate 28 mmol/L 09/04 Unknown COMPREHENSIVE METABOLIC 75254 AGAP 9 mmol/L 2016 Unknown GFR CALC 2780066 GFR Non Afr Amr >60 mL/min 09/17/2016 Un known GFR CALC 9049250 GFR Afr Amr >60 mL/min 09/17/2016 Unknow n THYROID STIMULATING HORMONE 97387 TSH 4.260 uIU/mL 09/17/2016 Unknown GLYCOSYLATED HEMOGLOBIN TEST 54547 Hgb A1c 21224-5 6.9 % 0 09/17/2016 Unknown FREE T4 61503 T4 Free 1.02 ng/dL 09/17/2016 Unknown COMPLETE BLOOD COUNT 1605947 WBC 8.6 10e9/L 07/26/19 16 Unknown COMPLETE BLOOD COUNT [id number] RBC 4.86 10e12/L 2015 Unknown COMPLETE BLOOD COUNT 4825944 HGB 14.6 g/dL 6 Unknown COMPLETE BLOOD COUNT 0711497 HCT DET 43.1 % 6 Unknown COMPLETE BLOOD COUNT 2396477 MCV 88.7 fL 6 Unknown COMPLETE BLOOD COUNT 6131805 MCH 30.0 pg 6 Unknown COMPLETE BLOOD COUNT 9819643 MCHC 33.9 g/dL 6 Unknown COMPLETE BLOOD COUNT [id number] PLT 267 10e9/L 07/26/19 16 Unknown COMPLETE BLOOD COUNT 4573110 MPV 11.5 fL 6 Unknown COMPLETE BLOOD COUNT 3205982 SAM % 64.8 % 6 Unknown COMPLETE BLOOD COUNT 1943328 LY % 16.8 % 6 Unknown COMPLETE BLOOD COUNT [id number] MON % 12.5 % 6 Unknown COMPLETE BLOOD COUNT 3556827 EOS % 5.6 % 6 Unknown COMPLETE BLOOD COUNT [id number] BASO % 0.3 % 6 Unknown COMPLETE BLOOD COUNT 1932480 RDW 13.4 % 6 Unknown COMPLETE BLOOD COUNT [id number] ABS SAM 5.57 10e9/L 016 Unknown COMPLETE BLOOD COUNT [id number] ABS LYMPH 1.44 10e9/L 016 Unknown COMPLETE BLOOD COUNT [id number] ABS MONO 1.08 10e9/L 016 Unknown COMPLETE BLOOD COUNT [id number] ABS EOS 0.48 10e9/L 016 Unknown COMPLETE BLOOD COUNT [id number] ABS BASO 0.03 10e9/L 016 Unknown COMPLETE BLOOD COUNT 3697376 RDW-SD 42.9 fL 6 Unknown PSA EQUIMOLAR MATT 95019 PSA EQ 0.78 NG/ML 6 Unknown THYROID STIMULATING HORMONE 57892 TSH 5.292 uIU/ML 07/26/2015 Unknown GLYCOSYLATED HEMOGLOBIN TEST 94338 A1C HPLC 46840-2 7.0 % 0 07/26/2015 Unknown GFR CALC 9868096 GFR AA >60 ML/MIN 07/26/2015 Unknown GFR CALC 5729214 GFR NON-AA >60 ML/MIN 07/26/2015 Unknown [facility] 73733 HDL TEST 64 MG/DL 07/26/2015 Unknown [facility] 49713 TRIG 58 MG/DL 07/26/2015 Unknown [facility] 81297 TEST LDL 49 MG/DL 07/26/2015 Unknown [facility] 41286 CHOL 125 MG/DL 07/26/2015 Unknown [facility] 72659 RCHOL/HDL 1.95 RATIO 07/26/2015 Unknow n [facility] 95790 NON-HDL CH 61 MG/DL 07/26/2015 Unknow n COMPREHENSIVE METABOLIC 25747 AST 25 U/L 2015 Unknown COMPREHENSIVE METABOLIC 10750 ALT 23 IU/L 2015 Unknown COMPREHENSIVE METABOLIC 72298 BUN 18 MG/DL 2015 Unknown COMPREHENSIVE METABOLIC 74092 ALBUMIN 4.6 GM/DL 2015 Unknown COMPREHENSIVE METABOLIC 44298 CHLORIDE 100 MMOL/L 07/26 Unknown COMPREHENSIVE METABOLIC 29927 BILI TOT 0.5 MG/DL 2015 Unknown COMPREHENSIVE METABOLIC 25392 ALK PHOS 49 U/L 2015 Unknown COMPREHENSIVE METABOLIC 61042 SODIUM 137 MMOL/L 07/26 Unknown COMPREHENSIVE METABOLIC 23624 CREATININE 1.06 MG/DL 07/08 Unknown COMPREHENSIVE METABOLIC 05151 CALCIUM 9.5 MG/DL 2015 Unknown COMPREHENSIVE METABOLIC 50240 POTASSIUM 4.5 MMOL/L 07/26 Unknown COMPREHENSIVE METABOLIC 44314 PROT TOT 6.5 GM/DL 2015 Unknown COMPREHENSIVE METABOLIC 82843 Glucose 109 MG/DL 2015 Unknown COMPREHENSIVE METABOLIC 45868 BICARB 29 MMOL/L 2015 Unknown COMPREHENSIVE METABOLIC 62854 ANION GAP 8 MEQ/L 2015 Unknown FREE T4 98971 FREE T4 1.11 NG/DL 07/26/2015 Unknown CULTURE & SENSITIVITY 15443 PROTEIN UR NEG 015 Unknown [facility] SENSIT[facility] 67103 HEMGLBN UR TR 015 Unknown [facility] SENSITIVITY 03787 GLUCOSE UR NEG 015 Unknown [facility] SENSIT[facility]ITY 65876 KETONES UR NEG 015 Unknown CULTURE & SENSITIVITY 82673 PH U 6.5 01/25/20 15 Unknown CULTURE & SENSITIVITY 99656 SP GR U 1.013 01/25/20 15 Unknown [facility]ULTURE & SENSITIVITY 84953 BILRUBN UR NEG 015 Unknown CULTURE & SENSITIVITY 66356 LEUKO UR NEG 01/25/20 15 Unknown CULTURE & SENSITIVITY 17480 NITRITE UR NEG 015 Unknown MICR CUL? [id number] SP TO JOHANA? NO 01/24/2015 Unknown MICR CUL? [id number] APPEAR UR NORMAL 01/24/2015 Unknown MICR CUL? 7671135 RBC/uL 2.2 01/24/2015 Unknown MICR CUL? 1411384 WBC/uL 2.8 01/24/2015 Unknown MICR CUL? 9113800 SQ EPI/uL 1.0 01/24/2015 Unknown MICR CUL? 4239449 HYALCST/uL 0.25 01/24/2015 Unknown MICR CUL? 8320910 WBC /HPF 1 01/24/2015 Unknown MICR CUL? 1952576 RBC /HPF 0 01/24/2015 Unknown GLYCOSYLATED HEMOGLOBIN TEST 64657 A1C HPLC 40585-8 6.6 % 0 01/17/2015 Unknown COMPLETE BLOOD COUNT 7625635 WBC 10.1 10e9/L 015 Unknown COMPLETE BLOOD COUNT [id number] RBC 4.60 10e12/L 2014 Unknown COMPLETE BLOOD COUNT 3234400 HGB 14.0 g/dL 5 Unknown COMPLETE BLOOD COUNT 9195406 HCT DET 39.9 % 5 Unknown COMPLETE BLOOD COUNT 3615447 MCV 86.7 fL 5 Unknown COMPLETE BLOOD COUNT [id number] MCH 30.4 pg 5 Unknown COMPLETE BLOOD COUNT 2260673 MCHC 35.1 g/dL 5 Unknown COMPLETE BLOOD COUNT 2083730 PLT 252 10e9/L 01/18/20 15 Unknown COMPLETE BLOOD COUNT 4293292 MPV 11.4 fL 5 Unknown COMPLETE BLOOD COUNT 0756404 SAM % 72.9 % 5 Unknown COMPLETE BLOOD COUNT 1360250 LY % 13.6 % 5 Unknown COMPLETE BLOOD COUNT 6989814 MON % 10.2 % 5 Unknown COMPLETE BLOOD COUNT 0115376 EOS % 3.1 % 5 Unknown COMPLETE BLOOD COUNT 7680780 BASO % 0.2 % 5 Unknown COMPLETE BLOOD COUNT 4653964 RDW 13.6 % 5 Unknown COMPLETE BLOOD COUNT 5015050 ABS SAM 7.36 10e9/L 015 Unknown COMPLETE BLOOD COUNT 5726204 ABS LYMPH 1.37 10e9/L 015 Unknown COMPLETE BLOOD COUNT [id number] ABS MONO 1.03 10e9/L 015 Unknown COMPLETE BLOOD COUNT 8645673 ABS EOS 0.31 10e9/L 015 Unknown COMPLETE BLOOD COUNT [id number] ABS BASO 0.02 10e9/L 015 Unknown COMPLETE BLOOD COUNT 9568973 RDW-SD 42.4 fL 07/14/201 5 Unknown GFR CALC 5844345 GFR AA 51.0L ML/MIN 01/17/2015 Unknow n GFR CALC 0024478 GFR NON-AA 42.0L ML/MIN 01/17/2015 Unkno wn FREE T4 24016 FREE T4 1.30 NG/DL 01/17/2015 Unknown THYROID STIMULATING HORMONE 81077 TSH 4.029 uIU/ML 01/17/2015 Unknown COMPREHENSIVE METABOLIC 14477 AST 28 U/L 2014 Unknown COMPREHENSIVE METABOLIC 77587 ALT 25 IU/L 2014 Unknown COMPREHENSIVE METABOLIC 11629 BUN 21 MG/DL 2014 Unknown COMPREHENSIVE METABOLIC 54949 ALBUMIN 4.7 GM/DL 2014 Unknown COMPREHENSIVE METABOLIC 55644 CHLORIDE 102 MMOL/L 01/17 Unknown COMPREHENSIVE METABOLIC 84876 BILI TOT 0.6 MG/DL 2014 Unknown COMPREHENSIVE METABOLIC 87619 ALK PHOS 44 U/L 2014 Unknown COMPREHENSIVE METABOLIC 27548 SODIUM 137 MMOL/L 01/17 Unknown COMPREHENSIVE METABOLIC 36160 CREATININE 1.62 MG/DL 01/04 Unknown COMPREHENSIVE METABOLIC 12610 CALCIUM 9.7 MG/DL 2014 Unknown COMPREHENSIVE METABOLIC 50547 POTASSIUM 4.5 MMOL/L 01/17 Unknown COMPREHENSIVE METABOLIC 89796 PROT TOT 6.5 GM/DL 2014 Unknown COMPREHENSIVE METABOLIC 18035 Glucose 136 MG/DL 2014 Unknown COMPREHENSIVE METABOLIC 31959 BICARB 24 MMOL/L 2014 Unknown COMPREHENSIVE METABOLIC 24061 ANION GAP 11 MEQ/L 2014 Unknown VITAMIN B 12 16860 VIT B 12 482 PG/ML 01/17/2015 Unknow n URIC ACID 55477 URIC ACID 8.5 MG/DL 08/09/2014 Unknown COMPREHENSIVE METABOLIC 84687 AST 27 U/L 2014 Unknown COMPREHENSIVE METABOLIC 07007 ALT 26 IU/L 2014 Unknown COMPREHENSIVE METABOLIC 94697 BUN 17 MG/DL 2014 Unknown COMPREHENSIVE METABOLIC 58759 ALBUMIN 5.0 GM/DL 2014 Unknown COMPREHENSIVE METABOLIC 10281 CHLORIDE 101 MMOL/L 08/09 Unknown COMPREHENSIVE METABOLIC 22440 BILI TOT 0.7 MG/DL 2014 Unknown COMPREHENSIVE METABOLIC 17484 ALK PHOS 53 U/L 2014 Unknown COMPREHENSIVE METABOLIC 76409 SODIUM 136 MMOL/L 08/09 Unknown COMPREHENSIVE METABOLIC 45373 CREATININE 1.14 MG/DL 09/2014 Unknown COMPREHENSIVE METABOLIC 45966 CALCIUM 9.8 MG/DL 2014 Unknown COMPREHENSIVE METABOLIC 82143 POTASSIUM 4.1 MMOL/L 08/09 Unknown COMPREHENSIVE METABOLIC 01847 PROT TOT 7.5 GM/DL 2014 Unknown COMPREHENSIVE METABOLIC 65794 Glucose 110 MG/DL 2014 Unknown COMPREHENSIVE METABOLIC 24965 BICARB 30 MMOL/L 2014 Unknown COMPREHENSIVE METABOLIC 79829 ANION GAP 5 MEQ/L 2014 Unknown GFR CALC 9376886 GFR AA >60 ML/MIN 08/09/2014 Unknown GFR CALC 8265117 GFR NON-AA >60 ML/MIN 08/09/2014 Unknown FREE T4 89819 FREE T4 1.14 NG/DL 08/09/2014 Unknown GLYCOSYLATED HEMOGLOBIN TEST 46828 A1C HPLC 15471-5 6.8 % 0 08/09/2014 Unknown COMPLETE BLOOD COUNT 2137126 WBC 5.9 10e9/L 08/09/19 15 Unknown COMPLETE BLOOD COUNT [id number] RBC 5.04 10e12/L 2014 Unknown COMPLETE BLOOD COUNT 6150708 HGB 15.2 g/dL 5 Unknown COMPLETE BLOOD COUNT 0514661 HCT DET 44.3 % 5 Unknown COMPLETE BLOOD COUNT 6654749 MCV 87.9 fL 5 Unknown COMPLETE BLOOD COUNT 0481998 MCH 30.2 pg 5 Unknown COMPLETE BLOOD COUNT 0015195 MCHC 34.3 g/dL 5 Unknown COMPLETE BLOOD COUNT 2806193 PLT 262 10e9/L 08/09/19 15 Unknown COMPLETE BLOOD COUNT [id number] MPV 10.9 fL 5 Unknown COMPLETE BLOOD COUNT 4364066 SAM % 58.7 % 5 Unknown COMPLETE BLOOD COUNT [id number] LY % 21.5 % 5 Unknown COMPLETE BLOOD COUNT 2745487 MON % 14.0 % 5 Unknown COMPLETE BLOOD COUNT 0105484 EOS % 5.3 % 5 Unknown COMPLETE BLOOD COUNT 1374315 BASO % 0.5 % 5 Unknown COMPLETE BLOOD COUNT 6996642 RDW 13.1 % 5 Unknown COMPLETE BLOOD COUNT [id number] ABS SAM 3.46 10e9/L 015 Unknown COMPLETE BLOOD COUNT 2377115 ABS LYMPH 1.27 10e9/L 015 Unknown COMPLETE BLOOD COUNT 1408652 ABS MONO 0.83 10e9/L 015 Unknown COMPLETE BLOOD COUNT [id number] ABS EOS 0.31 10e9/L 015 Unknown COMPLETE BLOOD COUNT [id number] ABS BASO 0.03 10e9/L 015 Unknown COMPLETE BLOOD COUNT 1852170 RDW-SD 41.2 fL 5 Unknown THYROID STIMULATING HORMONE 96327 TSH 5.395 uIU/ML 08/09/2014 Unknown LIPID GROUP [id number] HDL TEST 52 MG/DL 08/09/2014 Unknown LIPID GROUP 44066 TRIG 113 MG/DL 08/09/2014 Unknown LIPID GROUP [id number] TEST LDL 158 MG/DL 08/09/2014 Unknown LIPID GROUP 24412 CHOL 233 MG/DL 08/09/2014 Unknown LIPID GROUP 77137 RCHOL/HDL 4.48 RATIO 08/09/2014 Unknow n LIPID GROUP 01850 NON-HDL CH 181 MG/DL 08/09/2014 Unknow n COMPLETE BLOOD COUNT [id number] WBC 6.8 10e9/L 09/09/19 14 Unknown COMPLETE BLOOD COUNT [id number] RBC 5.18 10e12/L 2013 Unknown COMPLETE BLOOD COUNT [id number] HGB 15.2 g/dL 4 Unknown COMPLETE BLOOD COUNT [id number] HCT DET 44.7 % 4 Unknown COMPLETE BLOOD COUNT [id number] MCV 86.3 fL 4 Unknown COMPLETE BLOOD COUNT [id number] MCH 29.3 pg 4 Unknown COMPLETE BLOOD COUNT [id number] MCHC 34.0 g/dL 4 Unknown COMPLETE BLOOD COUNT [id number] PLT 236 10e9/L 09/09/19 14 Unknown COMPLETE BLOOD COUNT [id number] MPV 11.0 fL 4 Unknown COMPLETE BLOOD COUNT [id number] SAM % 58.2 % 4 Unknown COMPLETE BLOOD COUNT [id number] LY % 21.9 % 4 Unknown COMPLETE BLOOD COUNT [id number] MON % 12.5 % 4 Unknown COMPLETE BLOOD COUNT [id number] EOS % 7.3 % 4 Unknown COMPLETE BLOOD COUNT [id number] BASO % 0.1 % 4 Unknown COMPLETE BLOOD COUNT [id number] RDW 13.6 % 4 Unknown COMPLETE BLOOD COUNT [id number] ABS SAM 3.96 10e9/L 014 Unknown COMPLETE BLOOD COUNT [id number] ABS LYMPH 1.49 10e9/L 014 Unknown COMPLETE BLOOD COUNT [id number] ABS MONO 0.85 10e9/L 014 Unknown COMPLETE BLOOD COUNT [id number] ABS EOS 0.50 10e9/L 014 Unknown COMPLETE BLOOD COUNT [id number] ABS BASO 0.01 10e9/L 014 Unknown COMPLETE BLOOD COUNT [id number] RDW-SD 42.3 fL 4 Unknown COMPREHENSIVE METABOLIC 70626 AST 27 U/L 2013 Unknown COMPREHENSIVE METABOLIC 58695 ALT 30 IU/L 2013 Unknown COMPREHENSIVE METABOLIC 72180 BUN 16 MG/DL 2013 Unknown COMPREHENSIVE METABOLIC 32781 ALBUMIN 4.9 GM/DL 2013 Unknown COMPREHENSIVE METABOLIC 55229 CHLORIDE 99 MMOL/L 2013 Unknown COMPREHENSIVE METABOLIC 12137 BILI TOT 0.7 MG/DL 2013 Unknown COMPREHENSIVE METABOLIC 50453 ALK PHOS 53 U/L 2013 Unknown COMPREHENSIVE METABOLIC 60432 SODIUM 137 MMOL/L 09/08 Unknown COMPREHENSIVE METABOLIC 35303 CREATININE 1.01 MG/DL 11/2013 Unknown COMPREHENSIVE METABOLIC 98647 CALCIUM 10.0 MG/DL 09/08 Unknown COMPREHENSIVE METABOLIC 99964 POTASSIUM 4.4 MMOL/L 09/08 Unknown COMPREHENSIVE METABOLIC 31486 PROT TOT 7.1 GM/DL 2013 Unknown COMPREHENSIVE METABOLIC 79955 Glucose 148 MG/DL 2013 Unknown COMPREHENSIVE METABOLIC 18354 BICARB 30 MMOL/L 2013 Unknown COMPREHENSIVE METABOLIC 97322 ANION GAP 8 MEQ/L 2013 Unknown GFR CALC 0998905 GFR AA >60 ML/MIN 09/08/2013 Unknown GFR CALC 4190392 GFR NON-AA >60 ML/MIN 09/08/2013 Unknown FREE T4 55239 FREE T4 1.08 NG/DL 09/08/2013 Unknown GLYCOSYLATED HEMOGLOBIN TEST 01524 A1C HPLC 49173-9 7.3 % 0 09/08/2013 Unknown THYROID STIMULATING HORMONE 54522 TSH 5.454 uIU/ML 09/08/2013 Unknown LIPID GROUP 83068 HDL TEST 59 MG/DL 09/08/2013 Unknown LIPID GROUP 56281 TRIG 92 MG/DL 09/08/2013 Unknown LIPID GROUP 97063 TEST LDL 83 MG/DL 09/08/2013 Unknown LIPID GROUP 93442 CHOL 160 MG/DL 09/08/2013 Unknown LIPID GROUP 38479 RCHOL/HDL 2.71 RATIO 09/08/2013 Unknow n VITAMIN B 12 FOLIC ACID 69581|37552 VIT B 12 467 PG/ML 12/2012 Unknown VITAMIN B 12 FOLIC ACID 71458|19251 FOLIC ACID 12.2 NG/ML Unknown VITAMIN B 12 FOLIC ACID 10457|50022 VIT B 12 467 PG/ML 12/2012 Unknown THYROID STIMULATING HORMONE 33108 TSH 4.557 uIU/ML 03/12/2013 Unknown HEMOGLOBIN A1C (GLYCOSYLATED) 0039877 A1C HPLC 65282-2 7.6 % 03/12/2013 Unknown VITAMIN D TOTAL (25 HYDROXY) 99354 VIT D TOTL 17 NG/ML 03/12/2013 Unknown FREE T4 99931 FREE T4 1.07 NG/DL 03/12/2013 Unknown URIC ACID 78921 URIC ACID 5.2 MG/DL 03/12/2013 Unknown Procedures Procedure Codes Date THER/PROPH/DIAG INJ SC/IM CPT-4: 20301 05/13/2019 TRIAMCINOLONE ACET INJ NOS CPT-4: J3301 05/13/2019 DEXAMETHASONE SODIUM PHOS CPT-4: J1100 05/13/2019 THER/PROPH/DIAG INJ SC/IM CPT-4: 46141 02/22/2019 TRIAMCINOLONE ACET INJ NOS CPT-4: J3301 02/22/2019 FLU VACC PRSV FREE INC ANTIG 65 AND OLDER CPT-4: 66313 04/21/2018 ADMIN INFLUENZA VIRUS VAC CPT-4: G0008 04/21/2018 PRESCRIP TRANSMIT VIA ERX SY CPT-4: G8553 04/21/2018 DESTRUCT PREMALG LESION (Cryosurgery) CPT-4: 49051 FLU VACC PRSV FREE INC ANTIG 65 AND OLDER CPT-4: 15967 04/22/2017 ADMIN INFLUENZA VIRUS VAC CPT-4: G0008 04/22/2017 PRESCRIP TRANSMIT VIA ERX SY CPT-4: G8553 10/10/2016 PRESCRIP TRANSMIT VIA ERX SY CPT-4: G8553 08/29/2015 ROUTINE VENIPUNCTURE CPT-4: 25625 07/26/2015 ASSAY OF FREE THYROXINE CPT-4: 69816 07/26/2015 ASSAY THYROID STIM HORMONE CPT-4: 90403 07/26/2015 COMPREHEN METABOLIC PANEL CPT-4: 04258 07/26/2015 COMPLETE CBC W/AUTO DIFF WBC CPT-4: 34717 07/26/2015 LIPID PANEL CPT-4: 71623 07/26/2015 ASSAY OF PSA TOTAL CPT-4: 94767 07/26/2015 A1C HPLC CPT-4: 72239 07/26/2015 ROUTINE VENIPUNCTURE CPT-4: 43558 01/17/2015 ASSAY OF FREE THYROXINE CPT-4: 54311 01/17/2015 ASSAY THYROID STIM HORMONE CPT-4: 12424 01/17/2015 COMPREHEN METABOLIC PANEL CPT-4: 67408 01/17/2015 COMPLETE CBC W/AUTO DIFF WBC CPT-4: 59848 01/17/2015 A1C HPLC CPT-4: 80037 01/17/2015 VITAMIN B-12 CPT-4: 20920 01/17/2015 PPPS, subseq visit CPT-4: G0439 08/04/2014 PRESCRIP TRANSMIT VIA ERX SY CPT-4: G8553 02/18/2014 FLUZONE, 5ML (Medicare) CPT-4: Q2038 07/22/2013 ADMIN INFLUENZA VIRUS VAC CPT-4: G0008 07/22/2013 PRESCRIP TRANSMIT VIA ERX SY CPT-4: G8553 04/28/2013 ROUTINE VENIPUNCTURE CPT-4: 64722 03/12/2013 VITAMIN D TOTAL (25 HYDROXY) CPT-4: 82790 03/12/2013 VITAMIN B 12 FOLIC ACID CPT-4: 56101|77822 03/12/2013 A1C GLYCOSYLATED HEMOGLOBIN TEST CPT-4: 32948 013 ASSAY OF BLOOD/URIC ACID CPT-4: 32673 03/12/2013 ASSAY OF FREE THYROXINE CPT-4: 23881 03/12/2013 ASSAY THYROID STIM HORMONE CPT-4: 97739 03/12/2013 CUR TOBACCO NON-USER CPT-4: G8457 03/11/2013 PRESCRIP TRANSMIT VIA ERX SY CPT-4: G8553 03/11/2013 Vital Signs Date Vital 06/02/2019 Blood Pressure 1: 125/80 Code: 8480-6 [...] 1: 156/70 Code: 8480-6 BMI: 35.0 Code: 40731-8 Heart Rate 1: 68 bpm Height: 5'10" Respiratory Rate: 20 bpm SpO2: 95% Tempera ture: 36.5 (C) / 97.7 (F) Weight: 244 lbs 04/21/2018 Blood Pressure 1: 124/80 Code: 8480-6 BMI: 34.4 Code: 78064-9 Heart Rate 1: 80 bpm Height: 5'10" Respiratory Rate: 20 bpm SpO2: 96% Tempera ture: 37.0 (C) / 98.6 (F) Weight: 240 lbs 01/06/2018 Blood Pressure 1: 138/82 Code: 8480-6 BMI: 33.9 Code: 69896-4 Heart Rate 1: 96 bpm Height: 5'10" Respiratory Rate: 24 bpm SpO2: 98% Tempera ture: 35.9 (C) / 96.6 (F) Weight: 236 lbs 10/22/2017 Blood Pressure 1: 144/70 Code: 8480-6 BMI: 34.7 Code: 06167-4 Heart Rate 1: 72 bpm Height: 5'10" Respiratory Rate: 20 bpm SpO2: 96% Tempera ture: 36.9 (C) / 98.4 (F) Weight: 242 lbs 04/22/2017 Blood Pressure 1: 146/82 Code: 8480-6 BMI: 32.9 Code: 28681-0 Heart Rate 1: 104 bpm Height: 5'10" Respiratory Rate: 20 bpm SpO2: 95% Tempera ture: 36.9 (C) / 98.5 (F) Weight: 229 lbs 10/10/2016 Blood Pressure 1: 124/64 Code: 8480-6 BMI: 32.9 Code: 30091-8 Heart Rate 1: 64 bpm Height: 5'10" [...] 1: 146/90 Code: 8480-6 BMI: 34.1 Code: 51771-5 Heart Rate 1: 80 bpm Height: 5'10" Respiratory Rate: 20 bpm Temperature: 36 .8 (C) / 98.2 (F) Weight: 238 lbs 01/17/2015 Blood Pressure 1: 116/60 Code: 8480-6 BMI: 32.7 Code: 35069-8 Heart Rate 1: 84 bpm Height: 5'10" Respiratory Rate: 20 bpm Temperature: 36 .7 (C) / 98.0 (F) Weight: 228 lbs 09/29/2014 Blood Pressure 1: 136/78 Code: 8480-6 BMI: 33.9 Code: 48703-1 Heart Rate 1: 80 bpm Height: 5'10" Respiratory Rate: 20 bpm Temperature: 36 .6 (C) / 97.9 (F) Weight: 236 lbs 08/04/2014 Blood Pressure 1: 132/70 Code: 8480-6 BMI: 32.9 Code: 67011-5 Heart Rate 1: 72 bpm Height: 5'10" Respiratory Rate: 20 bpm Temperature: 36 .7 (C) / 98.0 (F) Weight: 229 lbs 02/18/2014 Blood Pressure 1: 124/82 Code: 8480-6 Heart Rate 1: 82 bpm Respiratory Rate: 18 bpm Temperature: 36.4 (C) / 97.5 (F) Weight: 232 lbs 07/29/2013 Blood Pressure 1: 146/80 Code: 8480-6 BMI: 34.1 Code: 53816-2 Heart Rate 1: 64 bpm Height: 5'10" Respiratory Rate: 20 bpm Temperature: 36 .9 (C) / 98.5 (F) Weight: 238 lbs 05/26/2013 Blood Pressure 1: 142/90 Code: 8480-6 BMI: 34.0 Code: 05087-9 Heart Rate 1: 84 bpm Height: 5'10" Respiratory Rate: 20 bpm Temperature: 36 .7 (C) / 98.0 (F) Weight: 237 lbs 04/28/2013 Blood Pressure 1: 118/78 Code: 8480-6 BMI: 32.9 Code: 26100-3 Heart Rate 1: 74 bpm Height: 5'10" Respiratory Rate: 20 bpm Temperature: 36 .1 (C) / 97.0 (F) Weight: 229 lbs 03/11/2013 Blood Pressure 1: 146/80 Code: 8480-6 BMI: 31.5 Code: 23882-8 Heart Rate 1: 80 bpm Height: 6' Respiratory Rate: 20 bpm Temperature: 36 .8 (C) / 98.2 (F) Weight: 232 lbs Functional Status No Functional Status data Reason For Visit Reason For Visit Effective Dates Notes cough 06/02/2019 sinus congestion 05/13/2019 follow up [...] care Encounters Encounter Performer Location Codes Date ([id number]) OFFICE/OUTPATIENT VISIT EST Diagnosis: Upper respiratory infection[ICD10: J06.9] Pennie [facility]TENCOURT [facility] CPT-4: 55168 06/02/2019 ([id number]) OFFICE/OUTPATIENT VISIT EST Diagnosis: Sinusitis[ICD10: J32.9] Diagnosis: Allergic rhinitis[ICD10: J30.9] Pennie [facility]RT [facility] CPT-4: 77535 05/13/2019 ([id number]) OFFICE/OUTPATIENT VISIT EST Diagnosis: Pneumonia[ICD10: J18.9] Pennie ROSENBAUM [facility] CPT-4: 65793 04/26/2019 ([id number]) OFFICE/OUTPATIENT VISIT EST Diagnosis: Acute sinusitis, unspecified[ICD10: J01.90] Pennie BETTENOCURT [facility] CPT-4: 87729 02/22/2019 ([id number]) OFFICE/OUTPATIENT VISIT EST Diagnosis: Cervicalgia[ICD10: M54.2] Xiomara MAGALLON [facility] CPT-4: 07838 11/25/2018 ([id number]) OFFICE/OUTPATIENT VISIT EST Diagnosis: Acute sinusitis, unspecified[ICD10: J01.90] Diagnosis: Myalgia, unspecified site[ICD10: M79.10] Diagnosis: Cervicalgia[ICD10: M54.2] Xiomara MAGALLON [facility] CPT-4: 73665 11/19/2018 ([id number]) OFFICE/OUTPATIENT VISIT EST Diagnosis: Low back pain[ICD10: M54.5] Diagnosis: Essential (primary) hypertension[ICD10: I10] Diagnosis: 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, 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] Diagnosis: Paroxysmal atrial fibrillation[ICD10: I48.0] Xiomara [facility]RT [facility] CPT-4: 10723 07/22/2018 ([id number]) OFFICE/OUTPATIENT VISIT EST Diagnosis: Type 2 diabetes mellitus with diabetic neuropathy, unspecified[ICD10: E11.40] Diagnosis: Hyperlipidemia, unspecified[ICD10: E78.5] Diagnosis: Essential (primary) hypertension[ICD10: I10] Diagnosis: Chronic kidney disease, stage 1[ICD10: N18.1] Diagnosis: Benign prostatic hyperplasia with lower urinary tract symptoms[ICD10: N40.1] Diagnosis: FLU VACCINE[ICD10: Z23] Xiomara ROSENBAUM [facility] CPT-4: 07313 04/21/2018 OFFICE/OUTPATIENT VISIT EST Diagnosis: Type 2 diabetes mellitus with hyperglycemia[ICD10: E11.65] Diagnosis: Essential (primary) hypertension[ICD10: I10] Diagnosis: Mixed hyperlipidemia[ICD10: E78.2] Diagnosis: Other fatigue[ICD10: R53.83] Pennie BETTENCOURT [facility] CPT-4: 76297 01/06/2018 ([id number]) OFFICE/OUTPATIENT VISIT EST Diagnosis: Type 2 diabetes mellitus with diabetic neuropathy, unspecified[ICD10: E11.40] Diagnosis: Essential (primary) hypertension[ICD10: I10] Diagnosis: Pain in right thigh[ICD10: M79.651] Diagnosis: Pain in left leg[ICD10: M79.605] Diagnosis: Localized swelling, mass and lump, left lower limb[ICD10: R22.42] Diagnosis: OSTEOARTHRISIS MULTI SITES[ICD10: M19.90] Diagnosis: FLU VACCINE[ICD10: Z23] Xiomara Gan [facility] CPT-4: 89028 04/22/2017 ([id number]) OFFICE/OUTPATIENT VISIT EST Diagnosis: Essential (primary) hypertension[ICD10: I10] Diagnosis: Type 2 diabetes mellitus with hyperglycemia[ICD10: E11.65] Diagnosis: Angina pectoris, unspecified[ICD10: I20.9] [facility] CPT[facility]: 66365 10/10/2016 ([id number]) OFFICE/OUTPATIENT VISIT EST Diagnosis: Cough[ICD10: R05] Diagnosis: Wheezing[ICD10: R06.2] Diagnosis: Chronic obstructive pulmonary disease, unspecified[ICD10: J44.9] Shannan Grimes XI[facility]ARA [facility] CPT-4: 47738 08/31/2015 OFFICE/OUTPATIENT VISIT EST Diagnosis: Acute bronchitis, unspecified[ICD10: J20.9] Diagnosis: Wheezing[ICD10: R06.2] Kelsie [facility] CPT-4: 18061 08/29/2015 ([id number]) OFFICE/OUTPATIENT VISIT EST Diagnosis: Type 2 diabetes mellitus with diabetic neuropathy, unspecified[ICD10: E11.40] Diagnosis: Hyperlipidemia, unspecified[ICD10: E78.5] Diagnosis: Essential (primary) hypertension[ICD10: I10] Diagnosis: Encounter for general adult medical examination without abnormal findings[ICD10: Z00.00] Xiomara BETTENCOURT [facility] CPT-4: 96544 07/26/2015 OFFICE/OUTPATIENT VISIT EST Diagnosis: Type 2 diabetes mellitus with hyperglycemia[ICD10: E11.65] Diagnosis: Unspecified osteoarthritis, unspecified site[ICD10: M19.90] Diagnosis: Other instability, right knee[ICD10: M25.361] Kelsie [facility]ENCOURT [facility] CPT-4: 19032 07/24/2015 ([id number]) OFFICE/OUTPATIENT VISIT EST Diagnosis: Pain in leg, unspecified[ICD10: M79.606] Diagnosis: Type 2 diabetes mellitus with diabetic neuropathy, unspecified[ICD10: E11.40] Xiomara [facility]TENCOURT [facility] CPT-4: 38849 05/01/2015 ([id number]) OFFICE/OUTPATIENT VISIT EST Diagnosis: MALAISE AND FATIGUE[ICD9: 780.79] Diagnosis: 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, 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] Diagnosis: CAD[ICD9: 414.00] Diagnosis: ANEMIA NOS[ICD9: 285.9] Xiomara [facility] CPT-4: 07553 01/17/2015 ([id number]) OFFICE/OUTPATIENT VISIT EST Diagnosis: Skin lesion[ICD9: 709.9] Xiomara HANLINE Elvia GENAO [facility] CPT-4: 20749 09/29/2014 OFFICE/OUTPATIENT VISIT EST Diagnosis: GASTROENTERITIS[ICD9: 558.9] Diagnosis: GERD[ICD9: 530.81] Kelsie RobersonChloekarena [facility]ENCOURT [facility] CPT-4: 67128 02/18/2014 ([id number]) OFFICE/OUTPATIENT VISIT EST Diagnosis: 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I, UNCONTROLLED[ICD9: 250.02] Xiomara HANLINE Elvia BETTENCOURT [facility] CPT-4: 84939 07/29/2013 ([id number]) OFFICE/OUTPATIENT VISIT EST Diagnosis: FLU VACCINE[ICD9: V04.81] Xiomara HANLINE Elvia MAGALLON [facility] CPT-4: 55154 07/22/2013 ([id number]) OFFICE/OUTPATIENT VISIT EST Diagnosis: 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I, UNCONTROLLED[ICD9: 250.02] Diagnosis: HYPERTENSION[ICD9: 401.9] Xiomara MAGALLON [facility] CPT-4: 61993 05/26/2013 ([id number]) OFFICE/OUTPATIENT VISIT EST Diagnosis: MONONEURITIS[ICD9: 355.9] Diagnosis: RESTLESS LEGS SYNDROME[ICD9: 333.94] Diagnosis: HYPERTENSION[ICD9: 401.9] Diagnosis: CAD[ICD9: 414.00] Diagnosis: Weakness[ICD9: 780.79] Xiomara Dolan [facility] CPT-4: 18918 04/28/2013 ([id number]) OFFICE/OUTPATIENT VISIT EST Diagnosis: 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[ICD9: 250.01] Diagnosis: MONONEURITIS[ICD9: 355.9] Diagnosis: HYPERLIPIDEMIA NEC/NOS[ICD9: 272.4] Diagnosis: CAD[ICD9: 414.00] Xiomara BETTENCOURT [facility] CPT-4: 39660 03/12/2013 OFFICE/OUTPATIENT VISIT NEW Diagnosis: CAD[ICD9: 414.00] Diagnosis: HYPERLIPIDEMIA NEC/NOS[ICD9: 272.4] Diagnosis: HYPERTENSION[ICD9: 401.9] Diagnosis: Neuropathy[ICD9: 355.9] Diagnosis: RESTLESS LEGS SYNDROME[ICD9: 333.94] Xiomara BETTENCOURT [facility] CPT-4: 98500 03/11/2013 Plan of Care Planned Activity Notes Codes Status Date Care Plan: COMPREHEN METABOLIC PANEL SERGEI NC : 73940-8 Pending 09/20/2019 Care Plan: LIPID PANEL LOINC : 43750-3 Pending 09/20/2019 Care Plan: A1C HPLC LOINC : 58613-6 Pending 09/20/2019 Care Plan: COMPLETE CBC W/AUTO DIFF WBC LOINC : 86782-2 Pending 09/20/2019 Visit Diagnosis Plan: Upper respiratory infection Disc ussion: discussed that most likely viral. push fluids and rest through the week. patient has left over levaquin at home (5 days worth). instructed patient to start taking if he gets worse later this week and to call us next week if no improvement. ICD-9 : 465.9 ICD-10 : J06.9 06/02/2019 Appointment: Moira, Pennie R. [address] [place], [place] [id number] ACUTE ILLNESS 06/02/2019 Visit Diagnosis Plan: Allergic [...] ICD-10 : J30.9 05/13/2019 Appointment: Pennie Pizarro [address] [place] [address] ACUTE ILLNESS 05/13/2019 Appointment: Xiomara Bettencourt WPtel: [phone] CANCELED 04/27/2019 Visit Diagnosis Plan: Pneumonia Discussion: will obtai n records from urgent care. instructed to finish out doxy. no rhonchi or crackles auscultated. symbicort sample given to patient with instructions to use bid. call office later this week with new or worsening symptoms. ICD-9 : 486 ICD-10 : J18.9 04/26/2019 Appointment: Pennie Pizarro [address] [place] [address] FOLLOW UP 04/26/2019 Visit Diagnosis Plan: Acute [...] ICD-10 : J01.90 02/22/2019 Appointment: Pennie Pizarro [address] [place] [address] ACUTE ILLNESS 02/22/2019 Patient Education: prednisone- [employer] Coupon [phone] [email or web address] Completed 02/22/2019 Visit Diagnosis Plan: Cervicalgia Discussion: Check Ce rvical Spine X-ray Will likely need PT ICD-9 : 723.1 ICD-10 : M54.2 11/25/2018 Appointment: Xiomara Bettencourt WPtel: [phone] ACUTE ILLNESS 11/25/2018 Visit Plan: Saline [...] : M79.10 11/19/2018 Appointment: Xiomara Bettencourt WPtel: [facility] [place] [phone] ACUTE ILLNESS 11/19/2018 Patient Education: baclofen- [employer] Coupon [id number] [email or web address] Completed 11/19/2018 Visit Diagnosis Plan: Essential (primary) [...] E10.9 07/22/2018 Appointment: [facility] Bettencourt [facility]Ptel[facility] [phone] [facility] [facility] FOLLOW UP 07/22/2018 Visit Diagnosis Plan: Benign prostatic h yperplasia with lower urinary tract symptoms Discussion: Trial of flomax Call [facility] how doing Follow Up: 4 [...] : N18.1 04/21/2018 Appointment: Xiomara Bettencourt WPtel: [facility] [facility] FOLLOW [facility] 04/21/2018 [...] ICD-10 : E11.65 01/06/2018 Appointment: Pennie Pizarro [address] [place] [address] MEDICATION REVIEW 01/06/2018 Patient Education: Patient Medication Summary Completed 01/06/2018 Appointment: Xiomaar Bettencourt WPtel: [address] [place] [address] NO SHOW 01/05/2018 Appointment: Xiomara Bettencourt WPtel: [address] [place] [address] [place] CANCELED 12/31/2017 Visit Diagnosis Plan: Actinic keratosis Discussion: Cr yotherapy as above but will see derm if lesions do not resolve ICD-9 : 702.0 ICD-10 : L57.0 10/22/2017 Appointment: Xiomara Bettencourt WPtel: [address] [place] [address] ACUTE ILLNESS 10/22/2017 Patient Education: Patient Medication [...] : M19.90 04/22/2017 Appointment: Xiomara Bettencourt WPtel: [facility] US FOLLOW UP 04/22/2017 Patient Education: Patient Medication Summary Completed 04/22/2017 Patient Education: Patient Medication Summary Completed 04/16/2017 Care Plan: COMPREHEN METABOLIC PANEL SERGEI NC : 36994-7 Pending 04/16/2017 Care Plan: LIPID PANEL LOINC : 51142-1 Pending 04/16/2017 Care Plan: CBC Pending 04/16/2017 Care Plan: A1C HPLC LOINC : 59796-9 Pending 04/16/2017 Referral: Inocencio Goodson WPtel: [address] [place], [place] [id number] [place] Referral Appointment Confirmed 10/14/2016 Visit Diagnosis Plan: Angina pectoris, unspecified Dis cussion: Continue imdur and see cardiology To ER if chest pain returns ICD-9 : 413.9 ICD-10 : I20.9 10/10/2016 Visit Diagnosis Plan: Type 2 diabetes mellitus with hy perglycemia Discussion: Continue toujeo Accuchecks BID Follow Up: 4 months ICD-9 : 250.02 ICD-10 : E11.65 10/10/2016 Appointment: Xiomara Bettencourt WPtel: [phone] [facility] [facility] FOLLOW [facility] 10/10/2016 Patient Education: Patient Medication Summary Completed 10/10/2016 Patient Education: Patient Medication Summary Completed 09/16/2016 Care Plan: COMPREHEN METABOLIC PANEL SERGEI NC : 29993-0 Pending 09/16/2016 Care Plan: ASSAY THYROID STIM HORMONE Pen ding 09/16/2016 Care Plan: ASSAY OF FREE THYROXINE Pendin g 09/16/2016 Care Plan: LIPID PANEL LOINC : 62330-3 Pending 09/16/2016 Care Plan: CBC Pending 09/16/2016 Care Plan: A1C HPLC LOINC : 66131-2 Pending 09/16/2016 Visit Plan: CXR now to further evaluate symptoms Suspect viral since he has been on 2 rounds of antibiotics If chronic lung disease evident, will consider keeping on symbicort 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 Sample inhaler given today with instructions on use Continue oral prednisone, would like to avoid injection if possible considering his DM status and he is stable right now Continue albuterol PRN Will call with CXR results 08/31/2015 Appointment: Shannan Grimes [address] [place] [address] 08/31 confirmed- SP ACUTE ILLNESS 08/31/2015 Patient Education: Patient Medication Summary Completed 08/31/2015 Visit Plan: Albuterol INH via SVN every 4 hours Prednisone 20 mg PO BID Notify for worsening symptoms 08/29/2015 Appointment: Kelsie Grubbs WPtel: [address] [place] [address] ACUTE ILLNESS 08/29/2015 Patient Education: Patient Medication Summary Completed 08/29/2015 Appointment: Xiomara Bettencourt WPtel: [address] [place] [address] LAB 07/26/2015 Patient Education: Patient Medication Summary Completed 07/26/2015 Visit Plan: Return in am for fasting lab s - CBC, CMP, TSH, Free T4, HgbA1C Change Levemir to Toujeo - Continue 35 Units q am - sample given Start physical Therapy for increased quadriceps strengthening and decreased pain in knees, bilaterally. 07/24/2015 Appointment: Kelsie Grubbs WPtel: [address] [place] [address] 07/21 appt confirmed cn FOLLOW UP 07/24/19 16 Appointment: Kelsie Grubbs WPtel: [address] [place] [address] FOLLOW UP 07/24/2015 Patient Education: Patient Medication [...] with insulin 05/01/2015 Appointment: Xiomara Bettencourt WPtel: [address] [place] [address] 04/28 confirmed~ ACUTE ILLNESS 05/01/2015 Patient Education: Patient Medication Summary Completed 05/01/2015 Patient Education: Patient Medication Summary Completed 01/19/2015 Care Plan: URINALYSIS AUTO W/O SCOPE SERGEI NC : 47251-3 Pending 01/19/2015 Visit Plan: I have went [...] stress test 01/17/2015 Appointment: Xiomara Bettencourt WPtel: [address] [place] [address] 01/16 vm cn ACUTE ILLNESS 01/17/2015 Patient Education: Patient Medication Summary Completed 01/17/2015 Visit Plan: See Dr. Garvin for removal 09/29/2014 Appointment: Xiomara Bettencourt WPtel: [address] [place] [address] ACUTE ILLNESS 09/29/2014 Referral: Colt Garvin WPtel: [address] Referral Initiated 09/29/2014 Patient Education: Patient Medication Summary Completed 09/29/2014 Visit Plan: Check CBC, CMP, TSH, free T4 , HbA1C, Lipids Accuchecks daily alternating times Patient has been adjusting own meds and has not taken any cholesterol meds for sometime Will check into surgery on right knee at [facility] Check carotid dopplers 08/04/2014 Appointment: Xiomara Bettencourt WPtel: [address] [place] [address] Annual Well Visit 08/04/2014 Patient Education: Patient Medication Summary Completed 08/04/2014 Appointment: Kelsie Grubbs WPtel: [address] [place] [address] ACUTE ILLNESS 02/18/2014 Patient Education: Patient Medication Summary Completed 02/18/2014 Patient Education: [facility] - Saving AutoInj - 18+ - Dynamic Portal ID Completed 02/18/2014 Appointment: Xiomara Bettencorut WPtel: [address] [place] [address] LAB 09/08/2013 Visit Plan: Check fasting lab in 1mo Con tinue Lantus and accuchecks at least BID 07/29/2013 Appointment: Xiomara Bettencourt WPtel: [address] [place] [address] FOLLOW UP 07/29/2013 Patient Education: Patient Medication Summary Completed 07/29/2013 Appointment: Xiomara Bettencourt WPtel: [address] [place], [place] [phone] INJECTION 07/22/2013 Patient Education: Patient Medication Summary Completed 07/22/2013 Visit Plan: Pt has been self-adjusting m eds Stop metformin and amaryl Use Levemir 25u sc BID and call in 1wk with BS readings 05/26/2013 Appointment: Xiomara Bettencourt WPtel: [address] [place] [address] FOLLOW UP 05/26/2013 Patient Education: Patient Medication Summary Completed 05/26/2013 Visit Plan: DC Metformin Increase Lantus to 30u sc daily Change lisinopril to lisinopril HCT 20/25mg q AM Continue Gabapentin at current dose 04/28/2013 Appointment: Xiomara Bettencourt WPtel: [phone] [facility] FOLLOW UP 04/28/2013 Patient Education: Patient Medication Summary Completed 04/28/2013 Appointment: Xiomara Bettencourt WPtel: [phone] [facility] [facility] LAB 03/12/2013 Patient Education: Patient Medication Summary Completed 03/12/2013 Visit Plan: Trial of neurontin 400mg q H S Obtain most recent lab results Change levemir to lantus per pt request Pt goes for sleep study tonite 03/11/2013 Appointment: Xiomara Bettencourt WPtel: [phone] [facility] 02/01paperwork mailed 03/10 confirmed with spouse NEW PATIENT 11/2012 Patient Education: Patient Medication Summary Completed 03/11/2013 Instructions Comment . Saline nasal flushes prn. Tylenol/Motr in prn headache. Notify if persists/symptoms worsening. . CXR now to further evaluate symptoms Suspect viral since he has been on 2 rounds of antibiotics If chronic lung disease evident, will consider keeping on symbicort fpc Sample inhaler given today with instructions on [...] check into surgery on right knee at [facility] Check carotid dopplers . Check fasting [...]
--- OUTSIDE RECORDS SUMMARY | 2020-02-02 21:45 | XMS REPORT | CCD ---
Author Author Sheng Bettencourt D.O. 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 Name Role Phone PP Unavailable CCM Unavailable Summary Purpose Interface Exchange Insurance Providers Payer name Policy type / Coverage type Covered democrat ID Effective Begin Date Effective End Date WPS MEDICARE PART B [place] Medicare Part B [id number] 2018 Unknown [facility] Medicare Part B [id number] 2018 Un known Family history Mother Diagnosis Age At Onset Diabetes mellitus Type 2 Unknown Hypercholesterolemia Unknown Father Diagnosis Age At Onset No Family Disease Entered N/A Social History Social History Element Codes Description Effective Dates Marital status Unknown 03/11/2013 Number of children Unknown 4 03/11/2013 Employment Unknown Retired 03/11/[address]: 8604423 Former smoker 03/11/[address]: 144142 Currently drinks alc ohol Socially 03/11/2013 Has [...] Problems Condition Codes Effective Dates Condition Status Upper respiratory infection ICD-9: 465.9 ICD-10: J06.9 [...] UNCONTROLLED ICD-9: 250.03 ICD-10: E10.9 01/16/2015 Active Essential (primary) hypertension ICD-9: 401.9 ICD-10: I10 08/04/2014 Active Low back pain ICD-9: 724.2 ICD-10: M54.5 07/22/2018 Active Paroxysmal atrial fibrillation ICD-9: 427.31 ICD-10: I48.0 07/22/2018 Active Benign prostatic hyperplasia with lower urinary tract symptoms ICD-9: 600.21 ICD-10: N40.1 04/21/2018 Active Chronic kidney disease, stage 1 ICD-9: 585.1 ICD-10: N18.1 04/21/2018 Active FLU VACCINE ICD-9: V04.81 ICD-10: Z23 04/22/2017 Active Hyperlipidemia, unspecified ICD-9: 272.4 ICD-10: E78.5 08/04/2014 Active Type 2 diabetes mellitus with diabetic neuropathy, uns pecified ICD-9: 250.60 ICD-10: E11.40 07/25/2015 Active Mixed hyperlipidemia ICD-9: 272.2 ICD-10: E78.2 01/06/2018 Active Other fatigue ICD-9: 780.79 ICD-10: R53.83 09/16/2016 Active Type 2 diabetes mellitus with hyperglycemia ICD-9: 250 .02 ICD-10: E11.65 08/04/2014 Active Actinic keratosis ICD-9: 702.0 ICD-10: L57.0 [...] Fill Instructions simvastatin 20 mg tablet RxNorm: 656615 1 Tablet(s) Ora l QD Needs updated fasting labs 09/20/2019 12/19/2019 Active Needs updated fa sting labs before 90 day refill Flomax 0.4 mg capsule RxNorm: 882168 TAKE TWO CAPSULES BY MOUTH EVERY EVENING 08/03/2019 No Stop Date Active gabapentin 400 mg capsule RxNorm: 380701 TAKE ONE CAPSU LE BY MOUTH EVERY EVENING 08/02/2019 No Stop Date Active simvastatin 20 mg tablet RxNorm: 991501 1 Tablet(s) Ora l QD Needs updated fasting labs 07/21/2019 08/19/2019 Inactive Needs updated fa sting labs before 90 day refill simvastatin 20 mg tablet RxNorm: 517262 1 Tablet(s) Ora l QD Needs updated fasting labs 06/23/2019 07/20/2019 Inactive Needs updated fa sting labs before 90 day refill Flomax 0.4 mg capsule RxNorm: 223233 1 Capsule(s) Oral QD 9 No Stop Date Active Flomax 0.4 mg capsule RxNorm: 570723 TAKE TWO CAPSULES BY MOUTH EVERY EVENING 03/19/2019 05/12/2019 Inactive Augmentin 500 mg-125 mg tablet RxNorm: 225952 1 Tablet(s) PO BID 03/03/2019 Inactive baclofen 10 mg tablet RxNorm: 159043 TAKE ONE TABLET BY MOUTH EVERY NIGHT AT BEDTIME FOR PAIN OR SPASMS 01/14/2019 05/12/2019 Inactive Flomax 0.4 mg capsule RxNorm: 334920 TAKE TWO CAPSULES BY MOUTH EVERY EVENING 01/12/2019 03/18/2019 Inactive gabapentin 400 mg capsule RxNorm: 388709 1 Capsule(s) PO QPM 201806/27/2019 Inactive baclofen 10 mg tablet RxNorm: 040588 1 Tablet(s) PO QHS for my n/spasm 12/15/2018 01/13/2019 Inactive simvastatin 20 mg tablet RxNorm: 354330 TAKE ONE TABLET BY MOUT H DAILY 12/11/2018 06/22/2019 Inactive OneTouch Ultra Blue Test Strip RxNorm: Use 1 rigoberto t strip three times daily to check blood sugar (Dx:E11.65) 12/07/2018 No Stop Date Active gabapentin 400 mg capsule RxNorm: 202532 TAKE ONE CAPSU LE BY MOUTH EVERY EVENING 12/04/2018 12/29/2018 Inactive baclofen 10 mg tablet RxNorm: 177706 1 Tablet(s) PO QHS for my n/spasm 11/19/2018 12/15/2018 Inactive Flomax 0.4 mg capsule RxNorm: 443824 2 Capsule(s) PO QPM 09/15/2018 0 12/13/2018 Inactive WOULD LIKE 90DS!!! gabapentin 400 mg capsule RxNorm: 218509 TAKE ONE CAPSU LE BY MOUTH EVERY EVENING 07/21/2018 10/18/2018 Inactive simvastatin 20 mg tablet RxNorm: 197604 1 Tablet(s) PO QD 06/15/2018 12/10/2018 Inactive Flomax 0.4 mg capsule RxNorm: 349271 TAKE TWO CAPSULES BY MOUTH EVERY EVENING 06/02/2018 09/15/2018 Inactive WOULD LIKE 90DS!!! Flomax 0.4 mg capsule RxNorm: 656466 2 Capsule(s) PO QPM 04/21/2018 1 07/20/2017 Inactive simvastatin 20 mg tablet RxNorm: 498722 1 Tablet(s) PO QD Take 1 tablet by mouth daily. Patient due for labwork before further refill. 04/06/20182017 Inactive simvastatin 20 mg tablet RxNorm: 878152 Tablet(s) TAKE ONE TABLET BY MOUTH DAILY 03/25/2018 06/15/2018 Inactive simvastatin 20 mg tablet RxNorm: 350828 Tablet(s) TAKE ONE TABLET BY MOUTH DAILY due for appt 12/29/2017 03/25/2018 Inactive simvastatin 20 mg tablet RxNorm: 197023 TAKE ONE TABLET BY MOUT H DAILY 09/03/2017 12/29/2017 Inactive simvastatin 20 mg tablet RxNorm: 063696 1 Tablet(s) PO QD 10/22/2016 11/18/2018 Inactive isosorbide mononitrate ER 60 mg tablet,extended release 24 h r RxNorm: 832064 1 Tablet(s) PO QD 10/22/2016 04/21/2017 Inactive isosorbide mononitrate ER 60 mg tablet,extended release 24 h r RxNorm: 529338 1 Tablet(s) PO QD 10/10/2016 10/21/2016 Inactive simvastatin 20 mg tablet RxNorm: 777588 1 Tablet(s) PO QD 10/10/2016 10/21/2016 Inactive gabapentin 400 mg capsule RxNorm: 991531 1 Capsule(s) PO QPM 201609/20/2016 Inactive Toujeo SoloStar 300 unit/mL (1.5 mL) subcutaneous insulin pe n RxNorm: 8086115 35 Unit(s) SQ QAM 07/23/2016 07/22/2016 Inactive Toujeo SoloStar 300 unit/mL (1.5 mL) subcutaneous insulin pe n RxNorm: 5891856 40 Unit(s) SQ QAM 09/01/2015 No Stop Date Active Symbicort 160 mcg-4.5 mcg/actuation HFA aerosol inhaler RxNo rm: 0434430 2 Puff(s) INH BID 08/31/2015 09/09/2015 Inactive prednisone 20 mg tablet RxNorm: 651964 1 Tablet(s) PO BID 08/29/2015 09/02/2015 Inactive albuterol sulfate 2.5 mg/3 mL (0.083 %) solution for n ebulization RxNorm: 902418 1 Unit(s) INH Q4H as needed 08/29/2015 10/09/2016 Inactive levothyroxine 75 mcg tablet RxNorm: 771552 1 Tablet(s) PO QD 201507/27/2015 Inactive levothyroxine 75 mcg tablet RxNorm: 916943 1 Tablet(s) PO QD 201511/18/2018 Inactive levothyroxine 75 mcg tablet RxNorm: 284145 1 Tablet(s) PO QD 201507/27/2015 Inactive lisinopril 20 mg-hydrochlorothiazide 25 mg tablet RxNorm: 19 7887 TAKE ONE TABLET BY MOUTH EVERY MORNING. REPLACES PLAIN LISINOPRIL 03/06/2015 04/21/2017 Inactive lisinopril 20 mg-hydrochlorothiazide 25 mg tablet RxNorm: 19 7887 TAKE ONE TABLET BY MOUTH EVERY MORNING. REPLACES PLAIN LISINOPRIL 09/08/2014 03/05/2015 Inactive allopurinol 100 mg tablet RxNorm: 737787 1 Tablet(s) PO BID 015 10/09/2016 Inactive [SAVINGS FOR NON-COVERED YULIA GS -- BIN:[id number], PCN: [id number], Group: [id number], ID# [id number], Questions: . THIS IS NOT INSURANCE.] levothyroxine 50 mcg tablet RxNorm: 417404 1 Tablet(s) PO QD 201407/26/2015 Inactive [AttnRPh: Saving apply/adjud icate RxGRP:SG20 RxBIN:[id number] RxPCN: ID#:[id number]] Zegerid 40 mg-1.1 gram capsule RxNorm: 700786 1 Capsule(s) PO QD 03/03/2014 Inactive [AttnRPh: Saving apply/adjud icate RxGRP:SG20 RxBIN:[id number] RxPCN:HT ID#:[id number]] ondansetron 8 mg disintegrating tablet RxNorm: 531221 1 Tablet(s) PO Q8H as needed for [...] 07/28/2013 Inactive gabapentin 400 mg capsule RxNorm: 862458 1 Capsule(s) PO QPM 201207/28/2013 Inactive gabapentin 400 mg capsule RxNorm: 220226 1 Capsule(s) PO QPM 201206/26/2013 Inactive lisinopril 20 mg-hydrochlorothiazide 25 mg tablet RxNorm: 82 3971 1 Tablet(s) PO QAM replaces plain lisinopril 04/28/2013 07/29/2013 Inactive gabapentin 400 mg capsule RxNorm: 200873 1 Capsule(s) PO QPM 201204/27/2013 Inactive gabapentin 400 mg capsule RxNorm: 519605 1 Capsule(s) PO QPM 201203/10/2013 Inactive gabapentin 400 mg capsule RxNorm: 783057 1 Capsule(s) PO QPM 201203/14/2013 Inactive Lantus Solostar 100 unit/mL (3 mL) Sub-Q Insulin Pen RxNorm: 373683 20 Unit(s) SQ QPM 03/11/2013 03/15/2013 Inactive Toujeo SoloStar 300 unit/mL (1.5 mL) subcutaneous insulin pe n RxNorm: 0659283 35 Unit(s) SQ QAM No Start Date Active omeprazole 20 mg capsule,delayed release RxNorm: 643919 1 Capsu le(s) PO QD No Start Date Active isosorbide mononitrate ER 60 mg tablet,extended release 24 h r RxNorm: 109216 1 Tablet(s) PO QD No Start Date Active lisinopril 20 mg tablet RxNorm: 797685 1 Tablet(s) PO QD No Start Date Active Chlortab-4 oral RxNorm: 472509 oral No Start Date Activ e Eliquis 5 mg tablet RxNorm: 3425768 1 Tablet(s) PO BID No Start Date Active oxymetazoline-menthol 0.05 % nasal spray RxNorm: 0908460 [place] N COTY No Start Date Active Patient states he ta kes every 10 hours metformin 500 mg tablet RxNorm: 915204 1 Tablet(s) PO BID No Start Da te Active levothyroxine 50 mcg tablet RxNorm: 597573 1 Tablet(s) PO QD No Start Date Active Plavix 75 mg tablet RxNorm: 123252 1 Tablet(s) PO QD No Start Date Active Norvasc 10 mg tablet RxNorm: 954310 1 Tablet(s) PO QHS No Start Date Active Zantac 150 mg tablet RxNorm: 144994 1 Tablet(s) PO QHS No Start Date Active Toujeo SoloStar 300 unit/mL (1.5 mL) subcutaneous insulin pe n RxNorm: 9039069 30 Unit(s) SQ QAM No Start Date Active glimepiride 4 mg tablet RxNorm: 814258 1 Tablet(s) PO QHS No Start Date 07/26/2015 Inactive allopurinol 100 mg tablet RxNorm: 438878 1 Tablet(s) PO BID No Star t Date 08/10/2014 Inactive Lantus Solostar 100 unit/mL (3 mL) subcutaneous insulin pen RxNorm: 254545 30 Unit(s) SQ QD No Start Date 08/03/2014 Inactive Levemir FlexTouch 100 unit/mL (3 mL) subcutaneous insulin pe n RxNorm: 802645 25 Unit(s) SQ QAM No Start Date 07/23/2015 Inactive Lantus 100 unit/mL Sub-Q RxNorm: 382779 30 Unit(s) SQ QHS No Start Date 05/25/2013 Inactive Lantus Solostar 100 unit/mL (3 mL) Sub-Q Insulin Pen RxNorm: 045942 20 Unit(s) SQ QPM No Start Date 03/10/2013 Inactive OneTouch Ultra Blue Test Strip RxNorm: Use 1 rigoberto t strip three times daily to check blood sugar (Dx:E11.65) No Start Date 12/06/2018 Inactive Levemir FlexTouch 100 unit/mL (3 mL) subcutaneous insulin pe n RxNorm: 839726 30- 35 Unit(s) SQ QAM No Start Date 07/23/2015 Inactive Levemir Flexpen 100 unit/mL (3 mL) solution subcutaneo us insulin pen RxNorm: 403509 20-25 Unit(s) SQ QD No Start Date 07/28/2013 Inactive indomethacin ER 75 mg capsule,extended release RxNorm: 06361 2 1 Capsule(s) PO QAM No Start Date 04/27/2013 Inactive indomethacin ER 75 mg capsule,extended release RxNorm: 32719 2 1 Capsule(s) PO QD No Start Date 01/16/2015 Inactive Vitamin D3 5,000 unit tablet RxNorm: 919368 1 Tablet(s) PO QD No St art Date 08/03/2014 Inactive Levemir Flexpen 100 unit/mL (3 mL) solution subcutaneo us insulin Pen RxNorm: 466243 20 Unit(s) SQ QHS No Start Date 03/10/2013 Inactive Vytorin 10 mg-40 mg tablet RxNorm: 7769168 1/2 Tablet(s) PO QD No S tart Date 04/20/2018 Inactive Toujeo SoloStar 300 unit/mL (1.5 mL) subcutaneous insulin pe n RxNorm: 4433907 35 Unit(s) SQ QAM No Start Date 07/22/2016 Inactive Lantus Solostar 100 unit/mL (3 mL) subcutaneous insulin pen RxNorm: 868367 20 Unit(s) SQ QD No Start Date 08/03/2014 Inactive aspirin 81 mg tablet RxNorm: 040797 1 Tablet(s) PO QD No Start Date 0 08/03/2014 Inactive metformin 500 mg tablet RxNorm: 331404 1 Tablet(s) PO BID No Start Date 07/28/2013 Inactive glimepiride 4 mg tablet RxNorm: 719356 1 Tablet(s) PO BID No Start Date 01/16/2015 Inactive glimepiride 4 mg tablet RxNorm: 419718 1 Tablet(s) PO QD No Start D ate 08/03/2014 Inactive levothyroxine 25 mcg tablet RxNorm: 589699 1 Tablet(s) PO QD No Sta rt Date 08/10/2014 Inactive doxycycline oral RxNorm: 17269 oral No Start Date 05/12/2019 Inac tive aspirin 81 mg tablet RxNorm: 531664 1 Tablet(s) PO QD No Start Date 0 07/21/2018 Inactive isosorbide mononitrate ER 60 mg tablet,extended release 24 h r RxNorm: 014056 1 Tablet(s) PO BID No Start Date 01/16/2015 Inactive metformin 500 mg tablet RxNorm: 549344 1 Tablet(s) PO BID No Start Date 04/27/2013 Inactive glimepiride 4 mg tablet RxNorm: 971964 1 Tablet(s) PO QPM No Start Date 02/21/2019 Inactive Vytorin 10-40 10 mg-40 mg tablet RxNorm: 0751278 1 Tablet(s) PO QHS No Start Date 08/03/2014 Inactive indomethacin 50 mg capsule RxNorm: 304055 1 Capsule(s) PO QHS No St art Date 01/16/2015 Inactive glimepiride 4 mg tablet RxNorm: 453768 1 Tablet(s) PO BID No Start Date 07/28/2013 Inactive Levemir FlexTouch 100 unit/mL (3 mL) subcutaneous insulin pe n RxNorm: 982869 20 Unit(s) SQ QD No Start Date 04/30/2015 Inactive lisinopril 20 mg tablet RxNorm: 736759 1 Tablet(s) PO BID No Start Date 04/27/2013 Inactive Lantus Solostar SubQ RxNorm: Subcutaneous No Start Date 03/15/2013 I nactive allopurinol 300 mg tablet RxNorm: 381794 1 Tablet(s) PO QD No Start Date 08/03/2014 Inactive Fish Oil 1,000 mg capsule RxNorm: 1 Capsule(s) PO QD No Start Date 02/21/2019 Inactive indomethacin 50 mg capsule RxNorm: 159539 1 Capsule(s) PO BID No St art Date 04/20/2018 Inactive levothyroxine 50 mcg tablet RxNorm: 783512 1 Tablet(s) PO QD No Sta rt Date 08/10/2014 Inactive glimepiride 4 mg tablet RxNorm: 212884 1 Tablet(s) PO BID No Start Date 03/15/2013 Inactive indomethacin 50 mg capsule RxNorm: 671922 1 Capsule(s) PO QHS No art Date 04/27/2013 Inactive Medication Administered No Medication Administered data Immunizations Vaccine Codes Date Status Influenza CVX: 135 04/21/2018 Complete Influenza CVX: 135 04/22/2017 Complete Results Observation Observation Code Item Item Code Result Date S ervice Location [facility] 61573 Cholesterol 209 mg/dL 09/17/2016 Unkno wn [facility] 84931 Triglyceride 111 mg/dL 09/17/2016 Unkn own [facility] 79827 HDL CHOLESTEROL 50 mg/dL 09/17/2016 U nknown [facility] 89913 Chol/HDL Ratio 4.18 ratio 09/17/2016 U nknown [facility] 32431 NON-HDL Chol 159 mg/dL 09/17/2016 Unkn own [facility] 35884 LDL Cholesterol 137 mg/dL 09/17/2016 U nknown MEAN GLUC 3080399 Calc Mean Gluc 151 mg/dL 09/17/2016 Unkn own COMPREHENSIVE METABOLIC 61352 AST 23 U/L 2016 Unknown COMPREHENS[facility] METABOLIC 15477 ALT 19 U/L 2016 Unknown [facility] 86135 BUN 15 mg/dL 2016 Unknown [facility] 54466 ALBUMIN 4.3 g/dL 2016 Unknown COMPREHENSIVE METABOLIC 42771 CHLORIDE 103 mmol/L 09/17 Unknown COMPREHENSIVE MET[facility]OL[facility] 95850 Bili Total 0.6 mg/dL 09/17 Unknown COMPREHENSIVE METABOLIC 97873 ALK PHOS 60 U/L 2016 Unknown COMPREHENSIVE METABOLIC 19802 SODIUM 140 mmol/L 09/17 Unknown COMPREHENSIVE METABOLIC 88644 CREATININE 1.03 mg/dL 09/04 Unknown COMPREHENSIVE METABOLIC 22938 CALCIUM 9.5 mg/dL 2016 Unknown COMPREHENSIVE METABOLIC 49766 POTASSIUM 3.9 mmol/L 09/17 Unknown COMPREHENSIVE METABOLIC 76945 Total Protein 6.9 g/dL Unknown COMPREHENSIVE METABOLIC 93140 Glucose 94 mg/dL 2016 Unknown COMPREHENSIVE METABOLIC 26607 Bicarbonate 28 mmol/L 09/04 Unknown COMPREHENSIVE METABOLIC 37847 AGAP 9 mmol/L 2016 Unknown GFR CALC 3357636 GFR Afr Amr >60 mL/min 09/17/2016 Unknow n GFR CALC 4428820 GFR Non Afr Amr >60 mL/min 09/17/2016 Un known THYROID STIMULATING HORMONE 69788 TSH 4.260 uIU/mL 09/17/2016 Unknown GLYCOSYLATED HEMOGLOBIN TEST 32715 Hgb A1c 10258-4 6.9 % 0 09/17/2016 Unknown FREE T4 59722 T4 Free 1.02 ng/dL 09/17/2016 Unknown COMPLETE BLOOD COUNT 0530352 WBC 8.6 10e9/L 07/26/19 16 Unknown COMPLETE BLOOD COUNT [id number] RBC 4.86 10e12/L 2015 Unknown COMPLETE BLOOD COUNT 0370163 HGB 14.6 g/dL 6 Unknown COMPLETE BLOOD COUNT 1235342 HCT DET 43.1 % 6 Unknown COMPLETE BLOOD COUNT 9562263 MCV 88.7 fL 6 Unknown COMPLETE BLOOD COUNT 8624801 MCH 30.0 pg 6 Unknown COMPLETE BLOOD COUNT 7373018 MCHC 33.9 g/dL 6 Unknown COMPLETE BLOOD COUNT 5209296 PLT 267 10e9/L 07/26/19 16 Unknown COMPLETE BLOOD COUNT 2681835 MPV 11.5 fL 6 Unknown COMPLETE BLOOD COUNT 1531359 SAM % 64.8 % 6 Unknown COMPLETE BLOOD COUNT 3396466 LY % 16.8 % 6 Unknown COMPLETE BLOOD COUNT 4883366 MON % 12.5 % 6 Unknown COMPLETE BLOOD COUNT 9683673 EOS % 5.6 % 6 Unknown COMPLETE BLOOD COUNT [id number] BASO % 0.3 % 6 Unknown COMPLETE BLOOD COUNT 9055187 RDW 13.4 % 6 Unknown COMPLETE BLOOD COUNT [id number] ABS SAM 5.57 10e9/L 016 Unknown COMPLETE BLOOD COUNT 1224362 ABS LYMPH 1.44 10e9/L 016 Unknown COMPLETE BLOOD COUNT [id number] ABS MONO 1.08 10e9/L 016 Unknown COMPLETE BLOOD COUNT 1487738 ABS EOS 0.48 10e9/L 016 Unknown COMPLETE BLOOD COUNT [id number] ABS BASO 0.03 10e9/L 016 Unknown COMPLETE BLOOD COUNT 9144344 RDW-SD 42.9 fL 6 Unknown PSA EQUIMOLAR MATT 90280 PSA EQ 0.78 NG/ML 6 Unknown THYROID STIMULATING HORMONE 90337 TSH 5.292 uIU/ML 07/26/2015 Unknown GLYCOSYLATED HEMOGLOBIN TEST 47425 A1C HPLC 58376-7 7.0 % 0 07/26/2015 Unknown GFR CALC 5112734 GFR AA >60 ML/MIN 07/26/2015 Unknown GFR CALC 4922499 GFR NON-AA >60 ML/MIN 07/26/2015 Unknown [facility] 63693 HDL TEST 64 MG/DL 07/26/2015 Unknown [facility] 73712 TRIG 58 MG/DL 07/26/2015 Unknown [facility] 24219 TEST LDL 49 MG/DL 07/26/2015 Unknown [facility] 51422 CHOL 125 MG/DL 07/26/2015 Unknown [facility] 53399 RCHOL/HDL 1.95 RATIO 07/26/2015 Unknow n [facility] 32947 NON-HDL CH 61 MG/DL 07/26/2015 Unknow n COMPREHENSIVE METABOLIC 47996 AST 25 U/L 2015 Unknown COMPREHENSIVE METABOLIC 51262 ALT 23 IU/L 2015 Unknown COMPREHENSIVE METABOLIC 10852 BUN 18 MG/DL 2015 Unknown COMPREHENSIVE METABOLIC 74942 ALBUMIN 4.6 GM/DL 2015 Unknown COMPREHENSIVE METABOLIC 76072 CHLORIDE 100 MMOL/L 07/26 Unknown COMPREHENSIVE METABOLIC 99683 BILI TOT 0.5 MG/DL 2015 Unknown COMPREHENSIVE METABOLIC 47491 ALK PHOS 49 U/L 2015 Unknown COMPREHENSIVE METABOLIC 92919 SODIUM 137 MMOL/L 07/26 Unknown COMPREHENSIVE METABOLIC 82599 CREATININE 1.06 MG/DL 07/08 Unknown COMPREHENSIVE METABOLIC 13749 CALCIUM 9.5 MG/DL 2015 Unknown COMPREHENSIVE METABOLIC 28882 POTASSIUM 4.5 MMOL/L 07/26 Unknown COMPREHENSIVE METABOLIC 92347 PROT TOT 6.5 GM/DL 2015 Unknown COMPREHENSIVE METABOLIC 64629 Glucose 109 MG/DL 2015 Unknown COMPREHENSIVE METABOLIC 87705 BICARB 29 MMOL/L 2015 Unknown COMPREHENSIVE METABOLIC 59304 ANION GAP 8 MEQ/L 2015 Unknown FREE T4 40185 FREE T4 1.11 NG/DL 07/26/2015 Unknown CULTURE & SENSITIVITY 51588 PROTEIN UR NEG 015 Unknown [facility] SENSIT[facility]ITY 11800 HEMGLBN UR TR 015 Unknown [facility] SENSITIVITY 54952 GLUCOSE UR NEG 015 Unknown [facility] SENSITIVITY 31513 KETONES UR NEG 015 Unknown CULTURE & SENSITIVITY 23777 PH U 6.5 01/25/20 15 Unknown CULTURE & SENSITIVITY 97520 SP GR U 1.013 01/25/20 15 Unknown CULTURE & SENSITIVITY 30974 BILRUBN UR NEG 015 Unknown CULTURE & SENSITIVITY 20071 LEUKO UR NEG 01/25/20 15 Unknown CULTURE & SENSITIVITY 26567 NITRITE UR NEG 015 Unknown MICR CUL? [id number] SP TO JOHANA? NO 01/24/2015 Unknown MICR CUL? 5274552 APPEAR UR NORMAL 01/24/2015 Unknown MICR CUL? [id number] RBC/uL 2.2 01/24/2015 Unknown MICR CUL? 8342589 WBC/uL 2.8 01/24/2015 Unknown MICR CUL? 9141539 SQ EPI/uL 1.0 01/24/2015 Unknown MICR CUL? 3649842 HYALCST/uL 0.25 01/24/2015 Unknown MICR CUL? 2632386 WBC /HPF 1 01/24/2015 Unknown MICR CUL? 2753894 RBC /HPF 0 01/24/2015 Unknown GLYCOSYLATED HEMOGLOBIN TEST 67937 A1C HPLC 86033-3 6.6 % 0 01/17/2015 Unknown COMPLETE BLOOD COUNT 5165921 WBC 10.1 10e9/L 015 Unknown COMPLETE BLOOD COUNT 1121683 RBC 4.60 10e12/L 2014 Unknown COMPLETE BLOOD COUNT 5360612 HGB 14.0 g/dL 5 Unknown COMPLETE BLOOD COUNT 9454615 HCT DET 39.9 % 5 Unknown COMPLETE BLOOD COUNT 0073608 MCV 86.7 fL 5 Unknown COMPLETE BLOOD COUNT 2774433 MCH 30.4 pg 5 Unknown COMPLETE BLOOD COUNT 5341745 MCHC 35.1 g/dL 5 Unknown COMPLETE BLOOD COUNT 4411456 PLT 252 10e9/L 01/18/20 15 Unknown COMPLETE BLOOD COUNT 1314228 MPV 11.4 fL 5 Unknown COMPLETE BLOOD COUNT 0572759 SAM % 72.9 % 5 Unknown COMPLETE BLOOD COUNT 2705537 LY % 13.6 % 5 Unknown COMPLETE BLOOD COUNT 9782658 MON % 10.2 % 5 Unknown COMPLETE BLOOD COUNT 4071555 EOS % 3.1 % 5 Unknown COMPLETE BLOOD COUNT 2017901 BASO % 0.2 % 5 Unknown COMPLETE BLOOD COUNT 8957640 RDW 13.6 % 5 Unknown COMPLETE BLOOD COUNT 6970571 ABS SAM 7.36 10e9/L 015 Unknown COMPLETE BLOOD COUNT 9600074 ABS LYMPH 1.37 10e9/L 015 Unknown COMPLETE BLOOD COUNT 7623977 ABS MONO 1.03 10e9/L 015 Unknown COMPLETE BLOOD COUNT 6600395 ABS EOS 0.31 10e9/L 015 Unknown COMPLETE BLOOD COUNT 0907394 ABS BASO 0.02 10e9/L 015 Unknown COMPLETE BLOOD COUNT 6846322 RDW-SD 42.4 fL 07/14/201 5 Unknown GFR CALC 1536028 GFR AA 51.0L ML/MIN 01/17/2015 Unknow n GFR CALC 0373194 GFR NON-AA 42.0L ML/MIN 01/17/2015 Unkno wn FREE T4 44052 FREE T4 1.30 NG/DL 01/17/2015 Unknown THYROID STIMULATING HORMONE 04483 TSH 4.029 uIU/ML 01/17/2015 Unknown COMPREHENSIVE METABOLIC 07716 AST 28 U/L 2014 Unknown COMPREHENSIVE METABOLIC 16500 ALT 25 IU/L 2014 Unknown COMPREHENSIVE METABOLIC 37837 BUN 21 MG/DL 2014 Unknown COMPREHENSIVE METABOLIC 77136 ALBUMIN 4.7 GM/DL 2014 Unknown COMPREHENSIVE METABOLIC 16669 CHLORIDE 102 MMOL/L 01/17 Unknown COMPREHENSIVE METABOLIC 74965 BILI TOT 0.6 MG/DL 2014 Unknown COMPREHENSIVE METABOLIC 08405 ALK PHOS 44 U/L 2014 Unknown COMPREHENSIVE METABOLIC 26780 SODIUM 137 MMOL/L 01/17 Unknown COMPREHENSIVE METABOLIC 18964 CREATININE 1.62 MG/DL 01/04 Unknown COMPREHENSIVE METABOLIC 66381 CALCIUM 9.7 MG/DL 2014 Unknown COMPREHENSIVE METABOLIC 54497 POTASSIUM 4.5 MMOL/L 01/17 Unknown COMPREHENSIVE METABOLIC 68880 PROT TOT 6.5 GM/DL 2014 Unknown COMPREHENSIVE METABOLIC 00997 Glucose 136 MG/DL 2014 Unknown COMPREHENSIVE METABOLIC 65462 BICARB 24 MMOL/L 2014 Unknown COMPREHENSIVE METABOLIC 35128 ANION GAP 11 MEQ/L 2014 Unknown VITAMIN B 12 16879 VIT B 12 482 PG/ML 01/17/2015 Unknow n URIC ACID 46097 URIC ACID 8.5 MG/DL 08/09/2014 Unknown COMPREHENSIVE METABOLIC 50695 AST 27 U/L 2014 Unknown COMPREHENSIVE METABOLIC 97778 ALT 26 IU/L 2014 Unknown COMPREHENSIVE METABOLIC 36592 BUN 17 MG/DL 2014 Unknown COMPREHENSIVE METABOLIC 99401 ALBUMIN 5.0 GM/DL 2014 Unknown COMPREHENSIVE METABOLIC 85561 CHLORIDE 101 MMOL/L 08/09 Unknown COMPREHENSIVE METABOLIC 16499 BILI TOT 0.7 MG/DL 2014 Unknown COMPREHENSIVE METABOLIC 97189 ALK PHOS 53 U/L 2014 Unknown COMPREHENSIVE METABOLIC 50569 SODIUM 136 MMOL/L 08/09 Unknown COMPREHENSIVE METABOLIC 35425 CREATININE 1.14 MG/DL 09/2014 Unknown COMPREHENSIVE METABOLIC 23775 CALCIUM 9.8 MG/DL 2014 Unknown COMPREHENSIVE METABOLIC 87355 POTASSIUM 4.1 MMOL/L 08/09 Unknown COMPREHENSIVE METABOLIC 89898 PROT TOT 7.5 GM/DL 2014 Unknown COMPREHENSIVE METABOLIC 81508 Glucose 110 MG/DL 2014 Unknown COMPREHENSIVE METABOLIC 22400 BICARB 30 MMOL/L 2014 Unknown COMPREHENSIVE METABOLIC 01372 ANION GAP 5 MEQ/L 2014 Unknown GFR CALC 2662753 GFR AA >60 ML/MIN 08/09/2014 Unknown GFR CALC 8372265 GFR NON-AA >60 ML/MIN 08/09/2014 Unknown FREE T4 63792 FREE T4 1.14 NG/DL 08/09/2014 Unknown GLYCOSYLATED HEMOGLOBIN TEST 01880 A1C HPLC 12638-9 6.8 % 0 08/09/2014 Unknown COMPLETE BLOOD COUNT [id number] WBC 5.9 10e9/L 08/09/19 15 Unknown COMPLETE BLOOD COUNT [id number] RBC 5.04 10e12/L 2014 Unknown COMPLETE BLOOD COUNT 5161803 HGB 15.2 g/dL 5 Unknown COMPLETE BLOOD COUNT 4946055 HCT DET 44.3 % 5 Unknown COMPLETE BLOOD COUNT 6210162 MCV 87.9 fL 5 Unknown COMPLETE BLOOD COUNT [id number] MCH 30.2 pg 5 Unknown COMPLETE BLOOD COUNT [id number] MCHC 34.3 g/dL 5 Unknown COMPLETE BLOOD COUNT [id number] PLT 262 10e9/L 08/09/19 15 Unknown COMPLETE BLOOD COUNT [id number] MPV 10.9 fL 5 Unknown COMPLETE BLOOD COUNT [id number] SAM % 58.7 % 5 Unknown COMPLETE BLOOD COUNT [id number] LY % 21.5 % 5 Unknown COMPLETE BLOOD COUNT [id number] MON % 14.0 % 5 Unknown COMPLETE BLOOD COUNT [id number] EOS % 5.3 % 5 Unknown COMPLETE BLOOD COUNT [id number] BASO % 0.5 % 5 Unknown COMPLETE BLOOD COUNT [id number] RDW 13.1 % 5 Unknown COMPLETE BLOOD COUNT [id number] ABS SAM 3.46 10e9/L 015 Unknown COMPLETE BLOOD COUNT [id number] ABS LYMPH 1.27 10e9/L 015 Unknown COMPLETE BLOOD COUNT [id number] ABS MONO 0.83 10e9/L 015 Unknown COMPLETE BLOOD COUNT [id number] ABS EOS 0.31 10e9/L 015 Unknown COMPLETE BLOOD COUNT [id number] ABS BASO 0.03 10e9/L 015 Unknown COMPLETE BLOOD COUNT [id number] RDW-SD 41.2 fL 5 Unknown THYROID STIMULATING HORMONE 00404 TSH 5.395 uIU/ML 08/09/2014 Unknown LIPID GROUP [id number] HDL TEST 52 MG/DL 08/09/2014 Unknown LIPID GROUP [id number] TRIG 113 MG/DL 08/09/2014 Unknown LIPID GROUP [id number] TEST LDL 158 MG/DL 08/09/2014 Unknown LIPID GROUP 05877 CHOL 233 MG/DL 08/09/2014 Unknown LIPID GROUP 66906 RCHOL/HDL 4.48 RATIO 08/09/2014 Unknow n LIPID GROUP 97485 NON-HDL CH 181 MG/DL 08/09/2014 Unknow n COMPLETE BLOOD COUNT [id number] WBC 6.8 10e9/L 09/09/19 14 Unknown COMPLETE BLOOD COUNT [id number] RBC 5.18 10e12/L 2013 Unknown COMPLETE BLOOD COUNT [id number] HGB 15.2 g/dL 4 Unknown COMPLETE BLOOD COUNT [id number] HCT DET 44.7 % 4 Unknown COMPLETE BLOOD COUNT [id number] MCV 86.3 fL 4 Unknown COMPLETE BLOOD COUNT [id number] MCH 29.3 pg 4 Unknown COMPLETE BLOOD COUNT [id number] MCHC 34.0 g/dL 4 Unknown COMPLETE BLOOD COUNT [id number] PLT 236 10e9/L 09/09/19 14 Unknown COMPLETE BLOOD COUNT [id number] MPV 11.0 fL 4 Unknown COMPLETE BLOOD COUNT [id number] SAM % 58.2 % 4 Unknown COMPLETE BLOOD COUNT [id number] LY % 21.9 % 4 Unknown COMPLETE BLOOD COUNT [id number] MON % 12.5 % 4 Unknown COMPLETE BLOOD COUNT [id number] EOS % 7.3 % 4 Unknown COMPLETE BLOOD COUNT [id number] BASO % 0.1 % 4 Unknown COMPLETE BLOOD COUNT [id number] RDW 13.6 % 4 Unknown COMPLETE BLOOD COUNT [id number] ABS SAM 3.96 10e9/L 014 Unknown COMPLETE BLOOD COUNT [id number] ABS LYMPH 1.49 10e9/L 014 Unknown COMPLETE BLOOD COUNT [id number] ABS MONO 0.85 10e9/L 014 Unknown COMPLETE BLOOD COUNT [id number] ABS EOS 0.50 10e9/L 014 Unknown COMPLETE BLOOD COUNT [id number] ABS BASO 0.01 10e9/L 014 Unknown COMPLETE BLOOD COUNT [id number] RDW-SD 42.3 fL 4 Unknown COMPREHENSIVE METABOLIC 21069 AST 27 U/L 2013 Unknown COMPREHENSIVE METABOLIC 50675 ALT 30 IU/L 2013 Unknown COMPREHENSIVE METABOLIC 45924 BUN 16 MG/DL 2013 Unknown COMPREHENSIVE METABOLIC 91310 ALBUMIN 4.9 GM/DL 2013 Unknown COMPREHENSIVE METABOLIC 12495 CHLORIDE 99 MMOL/L 2013 Unknown COMPREHENSIVE METABOLIC 21455 BILI TOT 0.7 MG/DL 2013 Unknown COMPREHENSIVE METABOLIC 98454 ALK PHOS 53 U/L 2013 Unknown COMPREHENSIVE METABOLIC 50548 SODIUM 137 MMOL/L 09/08 Unknown COMPREHENSIVE METABOLIC 05401 CREATININE 1.01 MG/DL 11/2013 Unknown COMPREHENSIVE METABOLIC 95076 CALCIUM 10.0 MG/DL 09/08 Unknown COMPREHENSIVE METABOLIC 23705 POTASSIUM 4.4 MMOL/L 09/08 Unknown COMPREHENSIVE METABOLIC 43653 PROT TOT 7.1 GM/DL 2013 Unknown COMPREHENSIVE METABOLIC 55722 Glucose 148 MG/DL 2013 Unknown COMPREHENSIVE METABOLIC 76706 BICARB 30 MMOL/L 2013 Unknown COMPREHENSIVE METABOLIC 78907 ANION GAP 8 MEQ/L 2013 Unknown GFR CALC [id number] GFR AA >60 ML/MIN 09/08/2013 Unknown GFR CALC 3784855 GFR NON-AA >60 ML/MIN 09/08/2013 Unknown FREE T4 37251 FREE T4 1.08 NG/DL 09/08/2013 Unknown GLYCOSYLATED HEMOGLOBIN TEST 08248 A1C HPLC 94538-5 7.3 % 0 09/08/2013 Unknown THYROID STIMULATING HORMONE 60562 TSH 5.454 uIU/ML 09/08/2013 Unknown LIPID GROUP 96917 HDL TEST 59 MG/DL 09/08/2013 Unknown LIPID GROUP 35395 TRIG 92 MG/DL 09/08/2013 Unknown LIPID GROUP 12133 TEST LDL 83 MG/DL 09/08/2013 Unknown LIPID GROUP 54861 CHOL 160 MG/DL 09/08/2013 Unknown LIPID GROUP 61918 RCHOL/HDL 2.71 RATIO 09/08/2013 Unknow n VITAMIN B 12 FOLIC ACID 52462|59653 VIT B 12 467 PG/ML 12/2012 Unknown VITAMIN B 12 FOLIC ACID 49466|97681 FOLIC ACID 12.2 NG/ML Unknown VITAMIN B 12 FOLIC ACID 53224|27467 VIT B 12 467 PG/ML 12/2012 Unknown THYROID STIMULATING HORMONE 13785 TSH 4.557 uIU/ML 03/12/2013 Unknown HEMOGLOBIN A1C (GLYCOSYLATED) 2611604 A1C HPLC 94207-9 7.6 % 03/12/2013 Unknown VITAMIN D TOTAL (25 HYDROXY) 07457 VIT D TOTL 17 NG/ML 03/12/2013 Unknown FREE T4 95948 FREE T4 1.07 NG/DL 03/12/2013 Unknown URIC ACID 61930 URIC ACID 5.2 MG/DL 03/12/2013 Unknown Procedures Procedure Codes Date THER/PROPH/DIAG INJ SC/IM CPT-4: 40816 05/13/2019 TRIAMCINOLONE ACET INJ NOS CPT-4: J3301 05/13/2019 DEXAMETHASONE SODIUM PHOS CPT-4: J1100 05/13/2019 THER/PROPH/DIAG INJ SC/IM CPT-4: 06738 02/22/2019 TRIAMCINOLONE ACET INJ NOS CPT-4: J3301 02/22/2019 FLU VACC PRSV FREE INC ANTIG 65 AND OLDER CPT-4: 71344 04/21/2018 ADMIN INFLUENZA VIRUS VAC CPT-4: G0008 04/21/2018 PRESCRIP TRANSMIT VIA ERX SY CPT-4: G8553 04/21/2018 DESTRUCT PREMALG LESION (Cryosurgery) CPT-4: 06248 FLU VACC PRSV FREE INC ANTIG 65 AND OLDER CPT-4: 14031 04/22/2017 ADMIN INFLUENZA VIRUS VAC CPT-4: G0008 04/22/2017 PRESCRIP TRANSMIT VIA ERX SY CPT-4: G8553 10/10/2016 PRESCRIP TRANSMIT VIA ERX SY CPT-4: G8553 08/29/2015 ROUTINE VENIPUNCTURE CPT-4: 00771 07/26/2015 ASSAY OF FREE THYROXINE CPT-4: 30952 07/26/2015 ASSAY THYROID STIM HORMONE CPT-4: 12147 07/26/2015 COMPREHEN METABOLIC PANEL CPT-4: 31247 07/26/2015 COMPLETE CBC W/AUTO DIFF WBC CPT-4: 02474 07/26/2015 LIPID PANEL CPT-4: 03366 07/26/2015 ASSAY OF PSA TOTAL CPT-4: 46227 07/26/2015 A1C HPLC CPT-4: 72648 07/26/2015 ROUTINE VENIPUNCTURE CPT-4: 67414 01/17/2015 ASSAY OF FREE THYROXINE CPT-4: 96525 01/17/2015 ASSAY THYROID STIM HORMONE CPT-4: 73605 01/17/2015 COMPREHEN METABOLIC PANEL CPT-4: 34478 01/17/2015 COMPLETE CBC W/AUTO DIFF WBC CPT-4: 73802 01/17/2015 A1C HPLC CPT-4: 60199 01/17/2015 VITAMIN B-12 CPT-4: 74967 01/17/2015 PPPS, subseq visit CPT-4: G0439 08/04/2014 PRESCRIP TRANSMIT VIA ERX SY CPT-4: G8553 02/18/2014 FLUZONE, 5ML (Medicare) CPT-4: Q2038 07/22/2013 ADMIN INFLUENZA VIRUS VAC CPT-4: G0008 07/22/2013 PRESCRIP TRANSMIT VIA ERX SY CPT-4: G8553 04/28/2013 ROUTINE VENIPUNCTURE CPT-4: 33040 03/12/2013 VITAMIN D TOTAL (25 HYDROXY) CPT-4: 05159 03/12/2013 VITAMIN B 12 FOLIC ACID CPT-4: 87044|42986 03/12/2013 A1C GLYCOSYLATED HEMOGLOBIN TEST CPT-4: 34012 013 ASSAY OF BLOOD/URIC ACID CPT-4: 19703 03/12/2013 ASSAY OF FREE THYROXINE CPT-4: 20180 03/12/2013 ASSAY THYROID STIM HORMONE CPT-4: 02923 03/12/2013 CUR TOBACCO NON-USER CPT-4: G8457 03/11/2013 [...] 1: 156/70 Code: 8480-6 BMI: 35.0 Code: 48705-1 Heart Rate 1: 68 bpm Height: 5'10" Respiratory Rate: 20 bpm SpO2: 95% Tempera ture: 36.5 (C) / 97.7 (F) Weight: 244 lbs 04/21/2018 Blood Pressure 1: 124/80 Code: 8480-6 BMI: 34.4 Code: 80111-3 Heart Rate 1: 80 bpm Height: 5'10" Respiratory Rate: 20 bpm SpO2: 96% Tempera ture: 37.0 (C) / 98.6 (F) Weight: 240 lbs 01/06/2018 Blood Pressure 1: 138/82 Code: 8480-6 BMI: 33.9 Code: 65190-8 Heart Rate 1: 96 bpm Height: 5'10" Respiratory Rate: 24 bpm SpO2: 98% Tempera ture: 35.9 (C) / 96.6 (F) Weight: 236 lbs 10/22/2017 Blood Pressure 1: 144/70 Code: 8480-6 BMI: 34.7 Code: 17878-4 Heart Rate 1: 72 bpm Height: 5'10" Respiratory Rate: 20 bpm SpO2: 96% Tempera ture: 36.9 (C) / 98.4 (F) Weight: 242 lbs 04/22/2017 Blood Pressure 1: 146/82 Code: 8480-6 BMI: 32.9 Code: 15132-4 Heart Rate 1: 104 bpm Height: 5'10" Respiratory Rate: 20 bpm SpO2: 95% Tempera ture: 36.9 (C) / 98.5 (F) Weight: 229 lbs 10/10/2016 Blood Pressure 1: 124/64 Code: 8480-6 BMI: 32.9 Code: 57470-4 Heart Rate 1: 64 bpm Height: 5'10" [...] 1: 146/90 Code: 8480-6 BMI: 34.1 Code: 64987-6 Heart Rate 1: 80 bpm Height: 5'10" Respiratory Rate: 20 bpm Temperature: 36 .8 (C) / 98.2 (F) Weight: 238 lbs 01/17/2015 Blood Pressure 1: 116/60 Code: 8480-6 BMI: 32.7 Code: 41662-0 Heart Rate 1: 84 bpm Height: 5'10" Respiratory Rate: 20 bpm Temperature: 36 .7 (C) / 98.0 (F) Weight: 228 lbs 09/29/2014 Blood Pressure 1: 136/78 Code: 8480-6 BMI: 33.9 Code: 71973-1 Heart Rate 1: 80 bpm Height: 5'10" Respiratory Rate: 20 bpm Temperature: 36 .6 (C) / 97.9 (F) Weight: 236 lbs 08/04/2014 Blood Pressure 1: 132/70 Code: 8480-6 BMI: 32.9 Code: 81790-5 Heart Rate 1: 72 bpm Height: 5'10" Respiratory Rate: 20 bpm Temperature: 36 .7 (C) / 98.0 (F) Weight: 229 lbs 02/18/2014 Blood Pressure 1: 124/82 Code: 8480-6 Heart Rate 1: 82 bpm Respiratory Rate: 18 bpm Temperature: 36.4 (C) / 97.5 (F) Weight: 232 lbs 07/29/2013 Blood Pressure 1: 146/80 Code: 8480-6 BMI: 34.1 Code: 52505-5 Heart Rate 1: 64 bpm Height: 5'10" Respiratory Rate: 20 bpm Temperature: 36 .9 (C) / 98.5 (F) Weight: 238 lbs 05/26/2013 Blood Pressure 1: 142/90 Code: 8480-6 BMI: 34.0 Code: 50074-8 Heart Rate 1: 84 bpm Height: 5'10" Respiratory Rate: 20 bpm Temperature: 36 .7 (C) / 98.0 (F) Weight: 237 lbs 04/28/2013 Blood Pressure 1: 118/78 Code: 8480-6 BMI: 32.9 Code: 15162-9 Heart Rate 1: 74 bpm Height: 5'10" Respiratory Rate: 20 bpm Temperature: 36 .1 (C) / 97.0 (F) Weight: 229 lbs 03/11/2013 Blood Pressure 1: 146/80 Code: 8480-6 BMI: 31.5 Code: 65255-9 Heart Rate 1: 80 bpm Height: 6' [...] care Encounters Encounter Performer Location Codes Date ([id number]) OFFICE/OUTPATIENT VISIT EST Diagnosis: Upper respiratory infection[ICD10: J06.9] Pennie [facility] 2020 CPT-4: 34752 06/02/2019 ([id number]) OFFICE/OUTPATIENT VISIT EST Diagnosis: Sinusitis[ICD10: J32.9] Diagnosis: Allergic rhinitis[ICD10: J30.9] Pennie [facility] 2020 CPT-4: 88562 05/13/2019 ([id number]) OFFICE/OUTPATIENT VISIT EST Diagnosis: Pneumonia[ICD10: J18.9] Pennie ROSENBAUM [facility] 2020 CPT-4: 46278 04/26/2019 ([id number]) OFFICE/OUTPATIENT VISIT EST Diagnosis: Acute sinusitis, unspecified[ICD10: J01.90] Pennie BETTENCOURT DO [facility] CPT-4: 84654 02/22/2019 ([id number]) OFFICE/OUTPATIENT VISIT EST Diagnosis: Cervicalgia[ICD10: M54.2] Xiomara MAGALLON [facility] CPT-4: 45274 11/25/2018 ([id number]) OFFICE/OUTPATIENT VISIT EST Diagnosis: Acute sinusitis, unspecified[ICD10: J01.90] Diagnosis: Myalgia, unspecified site[ICD10: M79.10] Diagnosis: Cervicalgia[ICD10: M54.2] Xiomara MAGALLON [facility] CPT-4: 18758 11/19/2018 ([id number]) OFFICE/OUTPATIENT VISIT EST Diagnosis: Low back pain[ICD10: M54.5] Diagnosis: Essential (primary) hypertension[ICD10: I10] Diagnosis: 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, 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] Diagnosis: Paroxysmal atrial fibrillation[ICD10: I48.0] Xiomara BETTENCOURT DO [facility] CPT-4: 66563 07/22/2018 ([id number]) OFFICE/OUTPATIENT VISIT EST Diagnosis: Type 2 diabetes mellitus with diabetic neuropathy, unspecified[ICD10: E11.40] Diagnosis: Hyperlipidemia, unspecified[ICD10: E78.5] Diagnosis: Essential (primary) hypertension[ICD10: I10] Diagnosis: Chronic kidney disease, stage 1[ICD10: N18.1] Diagnosis: Benign prostatic hyperplasia with lower urinary tract symptoms[ICD10: N40.1] Diagnosis: FLU VACCINE[ICD10: Z23] Xiomara ROSENBAUM [facility] CPT-4: 69700 04/21/2018 OFFICE/OUTPATIENT VISIT EST Diagnosis: Type 2 diabetes mellitus with hyperglycemia[ICD10: E11.65] Diagnosis: Essential (primary) hypertension[ICD10: I10] Diagnosis: Mixed hyperlipidemia[ICD10: E78.2] Diagnosis: Other fatigue[ICD10: R53.83] Pennie BETTENCOURT [facility] CPT-4: 83959 01/06/2018 ([id number]) OFFICE/OUTPATIENT VISIT EST Diagnosis: Type 2 diabetes mellitus with diabetic neuropathy, unspecified[ICD10: E11.40] Diagnosis: Essential (primary) hypertension[ICD10: I10] Diagnosis: Pain in right thigh[ICD10: M79.651] Diagnosis: Pain in left leg[ICD10: M79.605] Diagnosis: Localized swelling, mass and lump, left lower limb[ICD10: R22.42] Diagnosis: OSTEOARTHRISIS MULTI SITES[ICD10: M19.90] Diagnosis: FLU VACCINE[ICD10: Z23] Xiomara Gan [facility] CPT-4: 35878 04/22/2017 ([id number]) OFFICE/OUTPATIENT VISIT EST Diagnosis: Essential (primary) hypertension[ICD10: I10] Diagnosis: Type 2 diabetes mellitus with hyperglycemia[ICD10: E11.65] Diagnosis: Angina pectoris, unspecified[ICD10: I20.9] [facility] CPT-4: 10857 10/10/2016 ([id number]) OFFICE/OUTPATIENT VISIT EST Diagnosis: Cough[ICD10: R05] Diagnosis: Wheezing[ICD10: R06.2] Diagnosis: Chronic obstructive pulmonary disease, unspecified[ICD10: J44.9] Shannan Grimes XIOMARA [facility] CPT-4: 58833 08/31/2015 OFFICE/OUTPATIENT VISIT EST Diagnosis: Acute bronchitis, unspecified[ICD10: J20.9] Diagnosis: Wheezing[ICD10: R06.2] [facility] CPT-4: 67600 08/29/2015 ([id number]) OFFICE/OUTPATIENT VISIT EST Diagnosis: Type 2 diabetes mellitus with diabetic neuropathy, unspecified[ICD10: E11.40] Diagnosis: Hyperlipidemia, unspecified[ICD10: E78.5] Diagnosis: Essential (primary) hypertension[ICD10: I10] Diagnosis: Encounter for general adult medical examination without abnormal findings[ICD10: Z00.00] Xiomara BETTENCOURT [facility] CPT-4: 44638 07/26/2015 OFFICE/OUTPATIENT VISIT EST Diagnosis: Type 2 diabetes mellitus with hyperglycemia[ICD10: E11.65] Diagnosis: Unspecified osteoarthritis, unspecified site[ICD10: M19.90] Diagnosis: Other instability, right knee[ICD10: M25.361] Kelsie BETTENCOURT DO [facility] CPT-4: 45574 07/24/2015 ([id number]) OFFICE/OUTPATIENT VISIT EST Diagnosis: Pain in leg, unspecified[ICD10: M79.606] Diagnosis: Type 2 diabetes mellitus with diabetic neuropathy, unspecified[ICD10: E11.40] Xiomara BETTENCOURT DO [facility] CPT-4: 22391 05/01/2015 ([id number]) OFFICE/OUTPATIENT VISIT EST Diagnosis: MALAISE AND FATIGUE[ICD9: 780.79] Diagnosis: 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, 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] Diagnosis: CAD[ICD9: 414.00] Diagnosis: ANEMIA NOS[ICD9: 285.9] Xiomara MCBRIDE [facility] CPT-4: 75745 01/17/2015 ([id number]) OFFICE/OUTPATIENT VISIT EST Diagnosis: Skin lesion[ICD9: 709.9] Xiomara HANLINE Elvia GENAO [facility] CPT-4: 01416 09/29/2014 OFFICE/OUTPATIENT VISIT EST Diagnosis: GASTROENTERITIS[ICD9: 558.9] Diagnosis: GERD[ICD9: 530.81] Kelsie RobersonChloekarena BETTENCOURT DO [facility] CPT-4: 95732 02/18/2014 ([id number]) OFFICE/OUTPATIENT VISIT EST Diagnosis: 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I, UNCONTROLLED[ICD9: 250.02] Xiomara HANLINE Elvia BETTENCOURT [facility] CPT-4: 29847 07/29/2013 ([id number]) OFFICE/OUTPATIENT VISIT EST Diagnosis: FLU VACCINE[ICD9: V04.81] Xiomara HANLINE Elvia MAGALLON [facility] CPT-4: 95948 07/22/2013 ([id number]) OFFICE/OUTPATIENT VISIT EST Diagnosis: 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I, UNCONTROLLED[ICD9: 250.02] Diagnosis: HYPERTENSION[ICD9: 401.9] Xiomara MAGALLON DO [facility] CPT-4: 99094 05/26/2013 ([id number]) OFFICE/OUTPATIENT VISIT EST Diagnosis: MONONEURITIS[ICD9: 355.9] Diagnosis: RESTLESS LEGS SYNDROME[ICD9: 333.94] Diagnosis: HYPERTENSION[ICD9: 401.9] Diagnosis: CAD[ICD9: 414.00] Diagnosis: Weakness[ICD9: 780.79] Xiomara Dolan [facility] CPT-4: 41687 04/28/2013 ([id number]) OFFICE/OUTPATIENT VISIT EST Diagnosis: 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[ICD9: 250.01] Diagnosis: MONONEURITIS[ICD9: 355.9] Diagnosis: HYPERLIPIDEMIA NEC/NOS[ICD9: 272.4] Diagnosis: CAD[ICD9: 414.00] Xiomara BETTENCOURT DO [facility] CPT-4: 72887 03/12/2013 OFFICE/OUTPATIENT VISIT NEW Diagnosis: CAD[ICD9: 414.00] Diagnosis: HYPERLIPIDEMIA NEC/NOS[ICD9: 272.4] Diagnosis: HYPERTENSION[ICD9: 401.9] Diagnosis: Neuropathy[ICD9: 355.9] Diagnosis: RESTLESS LEGS SYNDROME[ICD9: 333.94] Xiomara BETTENCOURT [facility] CPT-4: 98923 03/11/2013 Plan of Care Planned Activity Notes Codes Status Date Visit Diagnosis Plan: Upper respiratory infection Disc ussion: discussed that most likely viral. push fluids and rest through the week. patient has left over levaquin at home (5 days worth). instructed patient to start taking if he gets worse later this week and to call us next week if no improvement. ICD-9 : 465.9 ICD-10 : J06.9 06/02/2019 Appointment: Pennie Pizarro [address] [place], [place] [address] ACUTE ILLNESS 06/02/2019 Visit Diagnosis [...] ICD-10 : J30.9 05/13/2019 Appointment: Pennie Pizarro [address] [place] [address] ACUTE ILLNESS 05/13/2019 Appointment: Xiomara Bettencourt WPtel: [phone] CANCELED 04/27/2019 Visit Diagnosis Plan: Pneumonia Discussion: will obtai n records from urgent care. instructed to finish out doxy. no rhonchi or crackles auscultated. symbicort sample given to patient with instructions to use bid. call office later this week with new or worsening symptoms. ICD-9 : 486 ICD-10 : J18.9 04/26/2019 Appointment: Pennie Pizarro [address] [place] [address] FOLLOW UP 04/26/2019 Visit Diagnosis Plan: Acute [...] : J01.90 02/22/2019 Appointment: Pennie Pizarro [address] [place] [address] ACUTE ILLNESS 02/22/2019 Patient Education: prednisone- Opt[employer] Coupon [phone] [email or web address] Completed 02/22/2019 Visit Diagnosis Plan: Cervicalgia Discussion: Check Ce rvical Spine X-ray Will likely need PT ICD-9 : 723.1 ICD-10 : M54.2 11/25/2018 Appointment: Xiomara Bettencourt WPtel: [phone] [facility] ACUTE ILLNESS 11/25/2018 Visit Plan: [...] M79.10 11/19/2018 Appointment: [facility]court [facility] [phone] [facility] [facility] 11/19/2018 Patient Education: baclofen- [employer] Coupon [id number] [email or web address] Completed 11/19/2018 Visit Diagnosis Plan: Essential (primary) [...] E10.9 07/22/2018 Appointment: Xiomara Bettencourt [facility]Ptel[facility] [phone] [facility] FOLLOW [facility] 07/22/2018 Visit Diagnosis Plan: Benign prostatic h yperplasia with lower urinary tract symptoms Discussion: Trial of flomax Call in 1 mo [facility] on how doing Follow Up: [...] N18.1 04/21/2018 Appointment: Xiomara Bettencourt WPtel[facility] [phone] [facility] FOLLOW [facility] 04/21/2018 Patient Education: Patient [...] mellitus with hy perglycemia Discussion: will call [facility] for recent labs. instructed patient that we will call him later today if additional labs are needed. instructed patient to continue working on diet and exercise. will adjust medications as needed based on recent labs. Follow Up: 3 months Discussion: will call [facility] for recent labs. instructed patient that we will call him later today if additional labs are needed. instructed patient to continue working on diet and exercise. will adjust medications as needed based on recent labs. ICD-9 : 250.02 ICD-10 : E11.65 01/06/2018 Appointment: Pennie Pizarro [address] [place] [address] MEDICATION REVIEW 01/06/2018 Patient Education: Patient Medication Summary Completed 01/06/2018 Appointment: Xiomara Bettencourt WPtel: [address] [place] [address] [place] NO SHOW 01/05/2018 Appointment: Xiomara Bettencourt WPtel: [address] [place] [address] [place] CANCELED 12/31/2017 Visit Diagnosis Plan: Actinic keratosis Discussion: Cr yotherapy as above but will see derm if lesions do not resolve ICD-9 : 702.0 ICD-10 : L57.0 10/22/2017 Appointment: Xiomara Bettencourt WPtel: [address] [place] [address] ACUTE ILLNESS 10/22/2017 Patient Education: Patient Medication [...] : M19.90 04/22/2017 Appointment: Xiomara Bettencourt WPtel: [facility] [place] FOLLOW UP 04/22/2017 Patient Education: Patient Medication Summary Completed 04/22/2017 Patient Education: Patient Medication Summary Completed 04/16/2017 Care Plan: COMPREHEN METABOLIC PANEL SERGEI [place] : 48562-3 Pending 04/16/2017 Care Plan: LIPID PANEL LOINC : 65328-2 Pending 04/16/2017 Care Plan: CBC Pending 04/16/2017 Care Plan: A1C HPLC LOINC : 18156-3 Pending 04/16/2017 Referral: Inocencio Goodson WPtel: [phone] [facility] [id number] [place] Referral Appointment Confirmed 10/14/2016 Visit Diagnosis Plan: Angina pectoris, unspecified Dis cussion: Continue imdur and see cardiology To ER if chest pain returns ICD-9 : 413.9 ICD-10 : I20.9 10/10/2016 Visit Diagnosis Plan: Type 2 diabetes mellitus with hy perglycemia Discussion: Continue toujeo Accuchecks BID Follow Up: 4 months ICD-9 : 250.02 ICD-10 : E11.65 10/10/2016 Appointment: Xiomara Bettencourt WPtel: [facility] [place] FOLLOW UP 10/10/2016 Patient Education: Patient Medication Summary Completed 10/10/2016 Patient Education: Patient Medication Summary Completed 09/16/2016 Care Plan: COMPREHEN METABOLIC PANEL SERGEI NC : 39774-5 Pending 09/16/2016 Care Plan: ASSAY THYROID STIM HORMONE Pen ding 09/16/2016 Care Plan: ASSAY OF FREE THYROXINE Pendin g 09/16/2016 Care Plan: LIPID PANEL LOINC : 24605-6 Pending 09/16/2016 Care Plan: CBC Pending 09/16/2016 Care Plan: A1C HPLC LOINC : 92828-5 Pending 09/16/2016 Visit Plan: CXR now to further evaluate symptoms Suspect viral since he has been on 2 rounds of antibiotics If chronic lung disease evident, will consider keeping on symbicort long term care social worker Sample inhaler given today with instructions on use Continue oral prednisone, would like to avoid injection if possible considering his DM status and he is stable right now Continue albuterol PRN Will call with CXR results 08/31/2015 Appointment: Shannan Grimes [address] [place] [address] 08/31 confirmed- SP ACUTE ILLNESS 08/31/2015 Patient Education: Patient Medication Summary Completed 08/31/2015 Visit Plan: Albuterol INH via SVN every 4 hours Prednisone 20 mg PO BID Notify for worsening symptoms 08/29/2015 Appointment: Kelsie Grubbs WPtel: [address] [place], [place] [address] ACUTE ILLNESS 08/29/2015 Patient Education: Patient Medication Summary Completed 08/29/2015 Appointment: Xiomara Bettencourt WPtel: [address] [place], [place] [id number] LAB 07/26/2015 Patient Education: Patient Medication Summary Completed 07/26/2015 Visit Plan: Return in am for fasting lab s - CBC, CMP, TSH, Free T4, HgbA1C Change Levemir to Toujeo - Continue 35 Units q am - sample given Start physical Therapy for increased quadriceps strengthening and decreased pain in knees, bilaterally. 07/24/2015 Appointment: Kelsie Grubbs WPtel: [address] [place], [place] [id number] 07/21 appt confirmed cn FOLLOW UP 07/24/19 16 Appointment: eKlsie Grubbs WPtel: [address] [place], [place] [id number] FOLLOW UP 07/24/2015 Patient Education: Patient Medication [...] with insulin 05/01/2015 Appointment: Xiomara Bettencourt WPtel: [address] [place] [address] 04/28 confirmed~sl ACUTE ILLNESS 05/01/2015 Patient Education: Patient Medication Summary Completed 05/01/2015 Patient Education: Patient Medication Summary Completed 01/19/2015 Care Plan: URINALYSIS AUTO W/[place] SCOPE SERGEI NC : 62443-3 Pending 01/19/2015 Visit Plan: I have went [...] stress test 01/17/2015 Appointment: Xiomara Bettencourt WPtel: [address] [place] [address] 01/16 vm cn ACUTE ILLNESS 01/17/2015 Patient Education: Patient Medication Summary Completed 01/17/2015 Visit Plan: See Dr. Garvin for removal 09/29/2014 Appointment: Xiomara Bettencourt WPtel: [address] [place] [address] ACUTE ILLNESS 09/29/2014 Referral: Colt Garvin WPtel: [address] [place] [address] Referral Initiated 09/29/2014 Patient Education: Patient Medication Summary Completed 09/29/2014 Visit Plan: Check CBC, CMP, TSH, free T4 , HbA1C, Lipids Accuchecks daily alternating times Patient has been adjusting own meds and has not taken any cholesterol meds for sometime Will check into surgery on right knee at [facility] Check carotid dopplers 08/04/2014 Appointment: Xiomara Bettencourt WPtel: [address] [place] [address] Annual Well Visit 08/04/2014 Patient Education: Patient Medication Summary Completed 08/04/2014 Appointment: Kelsie Grubbs WPtel: [address] [place] [address] ACUTE ILLNESS 02/18/2014 Patient Education: Patient Medication Summary Completed 02/18/2014 Patient Education: [facility] - Saving AutoInj - 18+ - Dynamic Portal ID Completed 02/18/2014 Appointment: Xiomara Bettencourt WPtel: [address] [place] [address] LAB 09/08/2013 Visit Plan: Check fasting lab in 1mo Con tinue Lantus and accuchecks at least BID 07/29/2013 Appointment: Xiomara Bettencourt WPtel: [address] [place] [address] FOLLOW UP 07/29/2013 Patient Education: Patient Medication Summary Completed 07/29/2013 Appointment: Xiomara Bettencourt WPtel: [address] [place] [address] INJECTION 07/22/2013 Patient Education: Patient Medication Summary Completed 07/22/2013 Visit Plan: Pt has been self-adjusting m eds Stop metformin and amaryl Use Levemir 25u sc BID and call in 1wk with BS readings 05/26/2013 Appointment: Xiomara Bettencourt WPtel: [address] [place] [address] FOLLOW UP 05/26/2013 Patient Education: Patient Medication Summary Completed 05/26/2013 Visit Plan: DC Metformin Increase Lantus to 30u sc daily Change lisinopril to lisinopril HCT 20/25mg q AM Continue Gabapentin at current dose 04/28/2013 Appointment: Xiomara Bettencourt WPtel: [address] [place] [address] FOLLOW UP 04/28/2013 Patient Education: Patient Medication Summary Completed 04/28/2013 Appointment: Xiomara Bettencourt WPtel: [address] [place] [address] LAB 03/12/2013 Patient Education: Patient Medication Summary Completed 03/12/2013 Visit Plan: Trial of neurontin 400mg q H S Obtain most recent lab results Change levemir to lantus per pt request Pt goes for sleep study tonite 03/11/2013 Appointment: Xiomara Bettencourt WPtel: [id number] [id number] 02/01paperwork mailed 03/10 confirmed with spouse NEW PATIENT 11/2012 Patient Education: Patient Medication Summary Completed 03/11/2013 Instructions Comment . Saline nasal flushes prn. Tylenol/Motr in prn headache. Notify if persists/symptoms worsening. . CXR now to further evaluate symptoms Suspect viral since he has been on 2 rounds of antibiotics If chronic lung disease evident, will consider keeping on symbicort residential Sample inhaler given today with instructions on [...] check into surgery on right knee at [facility] Check carotid dopplers . Check [...]
--- OUTSIDE RECORDS SUMMARY | 2020-02-02 21:45 | XMS REPORT | CCD ---
Author Author Sheng Bettencourt D.O. Organization [facility] Address [address] [place] [address] Phone Care Team Providers Care Pelt Grader Name Role Phone PP Unavailable CCM Unavailable Summary Purpose Interface Exchange Insurance Providers Payer name Policy type / Coverage type Covered constitution party ID Effective Begin Date Effective End Date WPS MEDICARE PART B [place] Medicare Part B [id number] 2018 Unknown [facility] [[email or web address] Medicare Part B [id number] 2018 Un known Family history Mother Diagnosis Age At Onset Diabetes mellitus Type 2 Unknown Hypercholesterolemia Unknown Father Diagnosis Age At Onset No Family Disease Entered N/A Social History Social History Element Codes Description Effective Dates Marital status Unknown 03/11/2013 Number of children Unknown 4 03/11/2013 Employment Unknown Retired 03/11/[address]: 7602067 Former smoker 03/11/[address]: 404331 Currently drinks alc ohol Socially 03/11/2013 Has [...] Fill Instructions Flomax 0.4 mg capsule RxNorm: 141410 TAKE TWO CAPSULES BY MOUTH EVERY EVENING 08/03/2019 No Stop Date Active gabapentin 400 mg capsule RxNorm: 516548 TAKE ONE CAPSU LE BY MOUTH EVERY EVENING 08/02/2019 No Stop Date Active simvastatin 20 mg tablet RxNorm: 463081 1 Tablet(s) Ora l QD Needs updated fasting labs 07/21/2019 08/19/2019 Active Needs updated fa sting labs before 90 day refill simvastatin 20 mg tablet RxNorm: 760459 1 Tablet(s) Ora l QD Needs updated fasting labs 06/23/2019 07/20/2019 Inactive Needs updated fa sting labs before 90 day refill Flomax 0.4 mg capsule RxNorm: 372506 1 Capsule(s) Oral QD No Stop Date Active Flomax 0.4 mg capsule RxNorm: 133454 TAKE TWO CAPSULES BY MOUTH EVERY EVENING 03/19/2019 05/12/2019 Inactive Augmentin 500 mg-125 mg tablet RxNorm: 558838 1 Tablet(s) PO BID 03/03/2019 Inactive baclofen 10 mg tablet RxNorm: 361497 TAKE ONE TABLET BY MOUTH EVERY NIGHT AT BEDTIME FOR PAIN OR SPASMS 01/14/2019 05/12/2019 Inactive Flomax 0.4 mg capsule RxNorm: 044630 TAKE TWO CAPSULES BY MOUTH EVERY EVENING 01/12/2019 03/18/2019 Inactive gabapentin 400 mg capsule RxNorm: 526018 1 Capsule(s) PO QPM 201806/27/2019 Inactive baclofen 10 mg tablet RxNorm: 663726 1 Tablet(s) PO QHS for my n/spasm 12/15/2018 01/13/2019 Inactive simvastatin 20 mg tablet RxNorm: 809690 TAKE ONE TABLET BY MOUT H DAILY 12/11/2018 06/22/2019 Inactive OneTouch Ultra Blue Test Strip RxNorm: Use 1 rigoberto t strip three times daily to check blood sugar (Dx:E11.65) 12/07/2018 No Stop Date Active gabapentin 400 mg capsule RxNorm: 038518 TAKE ONE CAPSU LE BY MOUTH EVERY EVENING 12/04/2018 12/29/2018 Inactive baclofen 10 mg tablet RxNorm: 675819 1 Tablet(s) PO QHS for my n/spasm 11/19/2018 12/15/2018 Inactive Flomax 0.4 mg capsule RxNorm: 388976 2 Capsule(s) PO QPM 09/15/2018 0 12/13/2018 Inactive WOULD LIKE 90DS!!! gabapentin 400 mg capsule RxNorm: 854151 TAKE ONE CAPSU LE BY MOUTH EVERY EVENING 07/21/2018 10/18/2018 Inactive simvastatin 20 mg tablet RxNorm: 991359 1 Tablet(s) PO QD 06/15/2018 12/10/2018 Inactive Flomax 0.4 mg capsule RxNorm: 258293 TAKE TWO CAPSULES BY MOUTH EVERY EVENING 06/02/2018 09/15/2018 Inactive WOULD LIKE 90DS!!! Flomax 0.4 mg capsule RxNorm: 932048 2 Capsule(s) PO QPM 04/21/2018 1 07/20/2017 Inactive simvastatin 20 mg tablet RxNorm: 018812 1 Tablet(s) PO QD Take 1 tablet by mouth daily. Patient due for labwork before further refill. 04/06/20182017 Inactive simvastatin 20 mg tablet RxNorm: 030235 Tablet(s) TAKE ONE TABLET BY MOUTH DAILY 03/25/2018 06/15/2018 Inactive simvastatin 20 mg tablet RxNorm: 335918 Tablet(s) TAKE ONE TABLET BY MOUTH DAILY due for appt 12/29/2017 03/25/2018 Inactive simvastatin 20 mg tablet RxNorm: 350398 TAKE ONE TABLET BY MOUT H DAILY 09/03/2017 12/29/2017 Inactive simvastatin 20 mg tablet RxNorm: 834655 1 Tablet(s) PO QD 10/22/2016 11/18/2018 Inactive isosorbide mononitrate ER 60 mg tablet,extended release 24 h r RxNorm: 028446 1 Tablet(s) PO QD 10/22/2016 04/21/2017 Inactive isosorbide mononitrate ER 60 mg tablet,extended release 24 h r RxNorm: 365722 1 Tablet(s) PO QD 10/10/2016 10/21/2016 Inactive simvastatin 20 mg tablet RxNorm: 516651 1 Tablet(s) PO QD 10/10/2016 10/21/2016 Inactive gabapentin 400 mg capsule RxNorm: 282241 1 Capsule(s) PO QPM 201609/20/2016 Inactive Toujeo SoloStar 300 unit/mL (1.5 mL) subcutaneous insulin pe n RxNorm: 1201339 35 Unit(s) SQ QAM 07/23/2016 07/22/2016 Inactive Toujeo SoloStar 300 unit/mL (1.5 mL) subcutaneous insulin pe n RxNorm: 5751919 40 Unit(s) SQ QAM 09/01/2015 No Stop Date Active Symbicort 160 mcg-4.5 mcg/actuation HFA aerosol inhaler RxNo rm: 2238265 2 Puff(s) INH BID 08/31/2015 09/09/2015 Inactive prednisone 20 mg tablet RxNorm: 435564 1 Tablet(s) PO BID 08/29/2015 09/02/2015 Inactive albuterol sulfate 2.5 mg/3 mL (0.083 %) solution for n ebulization RxNorm: 491218 1 Unit(s) INH Q4H as needed 08/29/2015 10/09/2016 Inactive levothyroxine 75 mcg tablet RxNorm: 547141 1 Tablet(s) PO QD 201507/27/2015 Inactive levothyroxine 75 mcg tablet RxNorm: 086356 1 Tablet(s) PO QD 201511/18/2018 Inactive levothyroxine 75 mcg tablet RxNorm: 285075 1 Tablet(s) PO QD 201507/27/2015 Inactive lisinopril 20 mg-hydrochlorothiazide 25 mg tablet RxNorm: 19 7887 TAKE ONE TABLET BY MOUTH EVERY MORNING. REPLACES PLAIN LISINOPRIL 03/06/2015 04/21/2017 Inactive lisinopril 20 mg-hydrochlorothiazide 25 mg tablet RxNorm: 19 7887 TAKE ONE TABLET BY MOUTH EVERY MORNING. REPLACES PLAIN LISINOPRIL 09/08/2014 03/05/2015 Inactive allopurinol 100 mg tablet RxNorm: 483573 1 Tablet(s) PO BID 015 10/09/2016 Inactive [SAVINGS FOR NON-COVERED YULIA GS -- BIN:[id number], PCN: [id number], Group: [id number], ID# [id number], Questions: . THIS IS NOT INSURANCE.] levothyroxine 50 mcg tablet RxNorm: 749228 1 Tablet(s) PO QD 201407/26/2015 Inactive [AttnRPh: Saving apply/adjud icate RxGRP:SG20 RxBIN:[id number] RxPCN: ID#:[id number]] Zegerid 40 mg-1.1 gram capsule RxNorm: 705598 1 Capsule(s) PO QD 03/03/2014 Inactive [AttnRPh: Saving apply/adjud icate RxGRP:SG20 RxBIN:[id number] RxPCN: ID#:[id number]] ondansetron 8 mg disintegrating tablet RxNorm: 195142 1 Tablet(s) PO Q8H as needed for [...] 07/28/2013 Inactive gabapentin 400 mg capsule RxNorm: 302503 1 Capsule(s) PO QPM 201207/28/2013 Inactive gabapentin 400 mg capsule RxNorm: 996267 1 Capsule(s) PO QPM 201206/26/2013 Inactive lisinopril 20 mg-hydrochlorothiazide 25 mg tablet RxNorm: 82 3971 1 Tablet(s) PO QAM replaces plain lisinopril 04/28/2013 07/29/2013 Inactive gabapentin 400 mg capsule RxNorm: 628185 1 Capsule(s) PO QPM 201204/27/2013 Inactive gabapentin 400 mg capsule RxNorm: 647427 1 Capsule(s) PO QPM 201203/10/2013 Inactive gabapentin 400 mg capsule RxNorm: 330865 1 Capsule(s) PO QPM 201203/14/2013 Inactive Lantus Solostar 100 unit/mL (3 mL) Sub-Q Insulin Pen RxNorm: 352353 20 Unit(s) SQ QPM 03/11/2013 03/15/2013 Inactive Toujeo SoloStar 300 unit/mL (1.5 mL) subcutaneous insulin pe n RxNorm: 0072202 35 Unit(s) SQ QAM No Start Date Active omeprazole 20 mg capsule,delayed release RxNorm: 764500 1 Capsu le(s) PO QD No Start Date Active isosorbide mononitrate ER 60 mg tablet,extended release 24 h r RxNorm: 136828 1 Tablet(s) PO QD No Start Date Active lisinopril 20 mg tablet RxNorm: 820933 1 Tablet(s) PO QD No Start Date Active Chlortab-4 oral RxNorm: 881557 oral No Start Date Activ e Eliquis 5 mg tablet RxNorm: 8744386 1 Tablet(s) PO BID No Start Date Active oxymetazoline-menthol 0.05 % nasal spray RxNorm: 1752318 [place] COTY No Start Date Active Patient states he ta kes every 10 hours metformin 500 mg tablet RxNorm: 660763 1 Tablet(s) PO BID No Start Da te Active levothyroxine 50 mcg tablet RxNorm: 459029 1 Tablet(s) PO QD No Start Date Active Plavix 75 mg tablet RxNorm: 454096 1 Tablet(s) PO QD No Start Date Active Norvasc 10 mg tablet RxNorm: 360591 1 Tablet(s) PO QHS No Start Date Active Zantac 150 mg tablet RxNorm: 136852 1 Tablet(s) PO QHS No Start Date Active Toujeo SoloStar 300 unit/mL (1.5 mL) subcutaneous insulin pe n RxNorm: 4307538 30 Unit(s) SQ QAM No Start Date Active glimepiride 4 mg tablet RxNorm: 098478 1 Tablet(s) PO QHS No Start Date 07/26/2015 Inactive allopurinol 100 mg tablet RxNorm: 169892 1 Tablet(s) PO BID No Star t Date 08/10/2014 Inactive Lantus Solostar 100 unit/mL (3 mL) subcutaneous insulin pen RxNorm: 554462 30 Unit(s) SQ QD No Start Date 08/03/2014 Inactive Levemir FlexTouch 100 unit/mL (3 mL) subcutaneous insulin pe n RxNorm: 256471 25 Unit(s) SQ QAM No Start Date 07/23/2015 Inactive Lantus 100 unit/mL Sub-Q RxNorm: 748726 30 Unit(s) SQ QHS No Start Date 05/25/2013 Inactive Lantus Solostar 100 unit/mL (3 mL) Sub-Q Insulin Pen RxNorm: 610519 20 Unit(s) SQ QPM No Start Date 03/10/2013 Inactive OneTouch Ultra Blue Test Strip RxNorm: Use 1 rigoberto t strip three times daily to check blood sugar (Dx:E11.65) No Start Date 12/06/2018 Inactive Levemir FlexTouch 100 unit/mL (3 mL) subcutaneous insulin pe n RxNorm: 569465 30- 35 Unit(s) SQ QAM No Start Date 07/23/2015 Inactive Levemir Flexpen 100 unit/mL (3 mL) solution subcutaneo us insulin pen RxNorm: 012156 20-25 Unit(s) SQ QD No Start Date 07/28/2013 Inactive indomethacin ER 75 mg capsule,extended release RxNorm: 82838 2 1 Capsule(s) PO QAM No Start Date 04/27/2013 Inactive indomethacin ER 75 mg capsule,extended release RxNorm: 98546 2 1 Capsule(s) PO QD No Start Date 01/16/2015 Inactive Vitamin D3 5,000 unit tablet RxNorm: 788078 1 Tablet(s) PO QD No St art Date 08/03/2014 Inactive Levemir Flexpen 100 unit/mL (3 mL) solution subcutaneo us insulin Pen RxNorm: 533350 20 Unit(s) SQ QHS No Start Date 03/10/2013 Inactive Vytorin 10 mg-40 mg tablet RxNorm: 9181494 1/2 Tablet(s) PO QD No S tart Date 04/20/2018 Inactive Jarretuodilia SoloStar 300 unit/mL (1.5 mL) subcutaneous insulin pe n RxNorm: 8784060 35 Unit(s) SQ QAM No Start Date 07/22/2016 Inactive Lantus Solostar 100 unit/mL (3 mL) subcutaneous insulin pen RxNorm: 556107 20 Unit(s) SQ QD No Start Date 08/03/2014 Inactive aspirin 81 mg tablet RxNorm: 133441 1 Tablet(s) PO QD No Start Date 0 08/03/2014 Inactive metformin 500 mg tablet RxNorm: 139725 1 Tablet(s) PO BID No Start Date 07/28/2013 Inactive glimepiride 4 mg tablet RxNorm: 228183 1 Tablet(s) PO BID No Start Date 01/16/2015 Inactive glimepiride 4 mg tablet RxNorm: 614648 1 Tablet(s) PO QD No Start D ate 08/03/2014 Inactive levothyroxine 25 mcg tablet RxNorm: 229324 1 Tablet(s) PO QD No Sta rt Date 08/10/2014 Inactive doxycycline oral RxNorm: 91654 oral No Start Date 05/12/2019 Inac tive aspirin 81 mg tablet RxNorm: 524766 1 Tablet(s) PO QD No Start Date 0 07/21/2018 Inactive isosorbide mononitrate ER 60 mg tablet,extended release 24 h r RxNorm: 938149 1 Tablet(s) PO BID No Start Date 01/16/2015 Inactive metformin 500 mg tablet RxNorm: 970251 1 Tablet(s) PO BID No Start Date 04/27/2013 Inactive glimepiride 4 mg tablet RxNorm: 474285 1 Tablet(s) PO QPM No Start Date 02/21/2019 Inactive Vytorin 10-40 10 mg-40 mg tablet RxNorm: 0582690 1 Tablet(s) PO QHS No Start Date 08/03/2014 Inactive indomethacin 50 mg capsule RxNorm: 002308 1 Capsule(s) PO QHS No St art Date 01/16/2015 Inactive glimepiride 4 mg tablet RxNorm: 953529 1 Tablet(s) PO BID No Start Date 07/28/2013 Inactive Levemir FlexTouch 100 unit/mL (3 mL) subcutaneous insulin pe n RxNorm: 286300 20 Unit(s) SQ QD No Start Date 04/30/2015 Inactive lisinopril 20 mg tablet RxNorm: 311833 1 Tablet(s) PO BID No Start Date 04/27/2013 Inactive Lantus Solostar SubQ RxNorm: Subcutaneous No Start Date 03/15/2013 I nactive allopurinol 300 mg tablet RxNorm: 346750 1 Tablet(s) PO QD No Start Date 08/03/2014 Inactive Fish Oil 1,000 mg capsule RxNorm: 1 Capsule(s) PO QD No Start Date 02/21/2019 Inactive indomethacin 50 mg capsule RxNorm: 938644 1 Capsule(s) PO BID No St art Date 04/20/2018 Inactive levothyroxine 50 mcg tablet RxNorm: 064041 1 Tablet(s) PO QD No Sta rt Date 08/10/2014 Inactive glimepiride 4 mg tablet RxNorm: 513990 1 Tablet(s) PO BID No Start Date 03/15/2013 Inactive indomethacin 50 mg capsule RxNorm: 539520 1 Capsule(s) PO QHS No art Date 04/27/2013 Inactive Medication Administered No Medication Administered data Immunizations Vaccine Codes Date Status Influenza CVX: 135 04/21/2018 Complete Influenza CVX: 135 04/22/2017 Complete Results Observation Observation Code Item Item Code Result Date S ervice Location [facility] 61050 Cholesterol 209 mg/dL 09/17/2016 Unkno wn [facility] 62066 Triglyceride 111 mg/dL 09/17/2016 Unkn own [facility] 15268 HDL CHOLESTEROL 50 mg/dL 09/17/2016 U nknown [facility] 32211 Chol/HDL Ratio 4.18 ratio 09/17/2016 U nknown [facility] 64934 NON-HDL Chol 159 mg/dL 09/17/2016 Unkn own [facility] 32144 LDL Cholesterol 137 mg/dL 09/17/2016 U nknown MEAN GLUC 2314162 Calc Mean Gluc 151 mg/dL 09/17/2016 Unkn own COMPREHENSIVE METABOLIC 18734 AST 23 U/L 2016 Unknown COMPREHENS[facility] METABOLIC 17802 ALT 19 U/L 2016 Unknown [facility] 49983 BUN 15 mg/dL 2016 Unknown [facility] 56751 ALBUMIN 4.3 g/dL 2016 Unknown COMPREHENSIVE METABOLIC 89055 CHLORIDE 103 mmol/L 09/17 Unknown [facility]PREHENS[facility]OL[facility] 69319 Bili Total 0.6 mg/dL 09/17 Unknown COMPREHENSIVE METABOLIC 91858 ALK PHOS 60 U/L 2016 Unknown COMPREHENSIVE METABOLIC 96963 SODIUM 140 mmol/L 09/17 Unknown COMPREHENSIVE METABOLIC 48444 CREATININE 1.03 mg/dL 09/04 Unknown COMPREHENSIVE METABOLIC 91838 CALCIUM 9.5 mg/dL 2016 Unknown COMPREHENSIVE METABOLIC 99610 POTASSIUM 3.9 mmol/L 09/17 Unknown COMPREHENSIVE METABOLIC 71748 Total Protein 6.9 g/dL Unknown COMPREHENSIVE METABOLIC 49495 Glucose 94 mg/dL 2016 Unknown COMPREHENSIVE METABOLIC 87295 Bicarbonate 28 mmol/L 09/04 Unknown COMPREHENSIVE METABOLIC 88935 AGAP 9 mmol/L 2016 Unknown GFR CALC 2738928 GFR Non Afr Amr >60 mL/min 09/17/2016 Un known GFR CALC 4195035 GFR Afr Amr >60 mL/min 09/17/2016 Unknow n THYROID STIMULATING HORMONE 05733 TSH 4.260 uIU/mL 09/17/2016 Unknown GLYCOSYLATED HEMOGLOBIN TEST 22838 Hgb A1c 21560-4 6.9 % 0 09/17/2016 Unknown FREE T4 38722 T4 Free 1.02 ng/dL 09/17/2016 Unknown COMPLETE BLOOD COUNT 4041097 WBC 8.6 10e9/L 07/26/19 16 Unknown COMPLETE BLOOD COUNT [id number] RBC 4.86 10e12/L 2015 Unknown COMPLETE BLOOD COUNT 5966487 HGB 14.6 g/dL 6 Unknown COMPLETE BLOOD COUNT 6496351 HCT DET 43.1 % 6 Unknown COMPLETE BLOOD COUNT 2914224 MCV 88.7 fL 6 Unknown COMPLETE BLOOD COUNT 6883049 MCH 30.0 pg 6 Unknown COMPLETE BLOOD COUNT 8132892 MCHC 33.9 g/dL 6 Unknown COMPLETE BLOOD COUNT 6049606 PLT 267 10e9/L 07/26/19 16 Unknown COMPLETE BLOOD COUNT 9876772 MPV 11.5 fL 6 Unknown COMPLETE BLOOD COUNT 2536442 SAM % 64.8 % 6 Unknown COMPLETE BLOOD COUNT 1589118 LY % 16.8 % 6 Unknown COMPLETE BLOOD COUNT 8558145 MON % 12.5 % 6 Unknown COMPLETE BLOOD COUNT 3121937 EOS % 5.6 % 6 Unknown COMPLETE BLOOD COUNT 0104281 BASO % 0.3 % 6 Unknown COMPLETE BLOOD COUNT 2804992 RDW 13.4 % 6 Unknown COMPLETE BLOOD COUNT [id number] ABS SAM 5.57 10e9/L 016 Unknown COMPLETE BLOOD COUNT [id number] ABS LYMPH 1.44 10e9/L 016 Unknown COMPLETE BLOOD COUNT [id number] ABS MONO 1.08 10e9/L 016 Unknown COMPLETE BLOOD COUNT [id number] ABS EOS 0.48 10e9/L 016 Unknown COMPLETE BLOOD COUNT [id number] ABS BASO 0.03 10e9/L 016 Unknown COMPLETE BLOOD COUNT 8234360 RDW-SD 42.9 fL 6 Unknown PSA EQUIMOLAR MATT 45714 PSA EQ 0.78 NG/ML 6 Unknown THYROID STIMULATING HORMONE 06328 TSH 5.292 uIU/ML 07/26/2015 Unknown GLYCOSYLATED HEMOGLOBIN TEST 85779 A1C HPLC 64916-1 7.0 % 0 07/26/2015 Unknown GFR CALC 9059532 GFR AA >60 ML/MIN 07/26/2015 Unknown GFR CALC 0252283 GFR NON-AA >60 ML/MIN 07/26/2015 Unknown [facility] 54344 HDL TEST 64 MG/DL 07/26/2015 Unknown [facility] 24994 TRIG 58 MG/DL 07/26/2015 Unknown [facility] 13504 TEST LDL 49 MG/DL 07/26/2015 Unknown [facility] 15487 CHOL 125 MG/DL 07/26/2015 Unknown [facility] 92182 RCHOL/HDL 1.95 RATIO 07/26/2015 Unknow n [facility] 61838 NON-HDL CH 61 MG/DL 07/26/2015 Unknow n COMPREHENSIVE METABOLIC 67438 AST 25 U/L 2015 Unknown COMPREHENSIVE METABOLIC 17430 ALT 23 IU/L 2015 Unknown COMPREHENSIVE METABOLIC 76378 BUN 18 MG/DL 2015 Unknown COMPREHENSIVE METABOLIC 75030 ALBUMIN 4.6 GM/DL 2015 Unknown COMPREHENSIVE METABOLIC 25334 CHLORIDE 100 MMOL/L 07/26 Unknown COMPREHENSIVE METABOLIC 22386 BILI TOT 0.5 MG/DL 2015 Unknown COMPREHENSIVE METABOLIC 69864 ALK PHOS 49 U/L 2015 Unknown COMPREHENSIVE METABOLIC 66497 SODIUM 137 MMOL/L 07/26 Unknown COMPREHENSIVE METABOLIC 77381 CREATININE 1.06 MG/DL 07/08 Unknown COMPREHENSIVE METABOLIC 64087 CALCIUM 9.5 MG/DL 2015 Unknown COMPREHENSIVE METABOLIC 67370 POTASSIUM 4.5 MMOL/L 07/26 Unknown COMPREHENSIVE METABOLIC 28214 PROT TOT 6.5 GM/DL 2015 Unknown COMPREHENSIVE METABOLIC 22892 Glucose 109 MG/DL 2015 Unknown COMPREHENSIVE METABOLIC 72977 BICARB 29 MMOL/L 2015 Unknown COMPREHENSIVE METABOLIC 36423 ANION GAP 8 MEQ/L 2015 Unknown FREE T4 42025 FREE T4 1.11 NG/DL 07/26/2015 Unknown CULTURE & SENSITIVITY 78476 PROTEIN UR NEG 015 Unknown [facility] SENSITIVITY 27633 HEMGLBN UR TR 015 Unknown [facility]ULTURE & SENSITIVITY 09938 GLUCOSE UR NEG 015 Unknown [facility] & SENSITIVITY 19842 KETONES UR NEG 015 Unknown CULTURE & SENSITIVITY 38771 PH U 6.5 01/25/20 15 Unknown CULTURE & SENSITIVITY 16625 SP GR U 1.013 01/25/20 15 Unknown CULTURE & SENSITIVITY 02712 BILRUBN UR NEG 015 Unknown CULTURE & SENSITIVITY 00337 LEUKO UR NEG 01/25/20 15 Unknown CULTURE & SENSITIVITY 33847 NITRITE UR NEG 015 Unknown MICR CUL? [id number] SP TO JOHANA? NO 01/24/2015 Unknown MICR CUL? 8224008 APPEAR UR NORMAL 01/24/2015 Unknown MICR CUL? [id number] RBC/uL 2.2 01/24/2015 Unknown MICR CUL? [id number] WBC/uL 2.8 01/24/2015 Unknown MICR CUL? 5900283 SQ EPI/uL 1.0 01/24/2015 Unknown MICR CUL? 9483221 HYALCST/uL 0.25 01/24/2015 Unknown MICR CUL? 7418110 WBC /HPF 1 01/24/2015 Unknown MICR CUL? 0036491 RBC /HPF 0 01/24/2015 Unknown GLYCOSYLATED HEMOGLOBIN TEST 48127 A1C HPLC 43817-9 6.6 % 0 01/17/2015 Unknown COMPLETE BLOOD COUNT 1035896 WBC 10.1 10e9/L 015 Unknown COMPLETE BLOOD COUNT 4605202 RBC 4.60 10e12/L 2014 Unknown COMPLETE BLOOD COUNT 0699567 HGB 14.0 g/dL 5 Unknown COMPLETE BLOOD COUNT 7764814 HCT DET 39.9 % 5 Unknown COMPLETE BLOOD COUNT 4348300 MCV 86.7 fL 5 Unknown COMPLETE BLOOD COUNT 0303070 MCH 30.4 pg 5 Unknown COMPLETE BLOOD COUNT 3982327 MCHC 35.1 g/dL 5 Unknown COMPLETE BLOOD COUNT 7348896 PLT 252 10e9/L 01/18/20 15 Unknown COMPLETE BLOOD COUNT 0318646 MPV 11.4 fL 5 Unknown COMPLETE BLOOD COUNT 8688053 SAM % 72.9 % 5 Unknown COMPLETE BLOOD COUNT 3114856 LY % 13.6 % 5 Unknown COMPLETE BLOOD COUNT 8256477 MON % 10.2 % 5 Unknown COMPLETE BLOOD COUNT 3968780 EOS % 3.1 % 5 Unknown COMPLETE BLOOD COUNT 6374269 BASO % 0.2 % 5 Unknown COMPLETE BLOOD COUNT 2010468 RDW 13.6 % 5 Unknown COMPLETE BLOOD COUNT 6744898 ABS SAM 7.36 10e9/L 015 Unknown COMPLETE BLOOD COUNT [id number] ABS LYMPH 1.37 10e9/L 015 Unknown COMPLETE BLOOD COUNT [id number] ABS MONO 1.03 10e9/L 015 Unknown COMPLETE BLOOD COUNT 4794143 ABS EOS 0.31 10e9/L 015 Unknown COMPLETE BLOOD COUNT 6175971 ABS BASO 0.02 10e9/L 015 Unknown COMPLETE BLOOD COUNT 4292975 RDW-SD 42.4 fL 5 Unknown GFR CALC 2672676 GFR AA 51.0L ML/MIN 01/17/2015 Unknow n GFR CALC 3967110 GFR NON-AA 42.0L ML/MIN 01/17/2015 Unkno wn FREE T4 18757 FREE T4 1.30 NG/DL 01/17/2015 Unknown THYROID STIMULATING HORMONE 72709 TSH 4.029 uIU/ML 01/17/2015 Unknown COMPREHENSIVE METABOLIC 52319 AST 28 U/L 2014 Unknown COMPREHENSIVE METABOLIC 08019 ALT 25 IU/L 2014 Unknown COMPREHENSIVE METABOLIC 26289 BUN 21 MG/DL 2014 Unknown COMPREHENSIVE METABOLIC 83699 ALBUMIN 4.7 GM/DL 2014 Unknown COMPREHENSIVE METABOLIC 07511 CHLORIDE 102 MMOL/L 01/17 Unknown COMPREHENSIVE METABOLIC 12543 BILI TOT 0.6 MG/DL 2014 Unknown COMPREHENSIVE METABOLIC 45494 ALK PHOS 44 U/L 2014 Unknown COMPREHENSIVE METABOLIC 18765 SODIUM 137 MMOL/L 01/17 Unknown COMPREHENSIVE METABOLIC 54328 CREATININE 1.62 MG/DL 01/04 Unknown COMPREHENSIVE METABOLIC 69771 CALCIUM 9.7 MG/DL 2014 Unknown COMPREHENSIVE METABOLIC 31820 POTASSIUM 4.5 MMOL/L 01/17 Unknown COMPREHENSIVE METABOLIC 39840 PROT TOT 6.5 GM/DL 2014 Unknown COMPREHENSIVE METABOLIC 62878 Glucose 136 MG/DL 2014 Unknown COMPREHENSIVE METABOLIC 12531 BICARB 24 MMOL/L 2014 Unknown COMPREHENSIVE METABOLIC 42421 ANION GAP 11 MEQ/L 2014 Unknown VITAMIN B 12 74420 VIT B 12 482 PG/ML 01/17/2015 Unknow n URIC ACID 01189 URIC ACID 8.5 MG/DL 08/09/2014 Unknown COMPREHENSIVE METABOLIC 04658 AST 27 U/L 2014 Unknown COMPREHENSIVE METABOLIC 68193 ALT 26 IU/L 2014 Unknown COMPREHENSIVE METABOLIC 18453 BUN 17 MG/DL 2014 Unknown COMPREHENSIVE METABOLIC 82918 ALBUMIN 5.0 GM/DL 2014 Unknown COMPREHENSIVE METABOLIC 70291 CHLORIDE 101 MMOL/L 08/09 Unknown COMPREHENSIVE METABOLIC 75271 BILI TOT 0.7 MG/DL 2014 Unknown COMPREHENSIVE METABOLIC 39027 ALK PHOS 53 U/L 2014 Unknown COMPREHENSIVE METABOLIC 45638 SODIUM 136 MMOL/L 08/09 Unknown COMPREHENSIVE METABOLIC 00600 CREATININE 1.14 MG/DL 09/2014 Unknown COMPREHENSIVE METABOLIC 00216 CALCIUM 9.8 MG/DL 2014 Unknown COMPREHENSIVE METABOLIC 78021 POTASSIUM 4.1 MMOL/L 08/09 Unknown COMPREHENSIVE METABOLIC 73150 PROT TOT 7.5 GM/DL 2014 Unknown COMPREHENSIVE METABOLIC 24678 Glucose 110 MG/DL 2014 Unknown COMPREHENSIVE METABOLIC 65914 BICARB 30 MMOL/L 2014 Unknown COMPREHENSIVE METABOLIC 37548 ANION GAP 5 MEQ/L 2014 Unknown GFR CALC 0551528 GFR AA >60 ML/MIN 08/09/2014 Unknown GFR CALC 1505854 GFR NON-AA >60 ML/MIN 08/09/2014 Unknown FREE T4 84745 FREE T4 1.14 NG/DL 08/09/2014 Unknown GLYCOSYLATED HEMOGLOBIN TEST 90022 A1C HPLC 36736-8 6.8 % 0 08/09/2014 Unknown COMPLETE BLOOD COUNT [id number] WBC 5.9 10e9/L 08/09/19 15 Unknown COMPLETE BLOOD COUNT [id number] RBC 5.04 10e12/L 2014 Unknown COMPLETE BLOOD COUNT 8127744 HGB 15.2 g/dL 5 Unknown COMPLETE BLOOD COUNT 5182929 HCT DET 44.3 % 5 Unknown COMPLETE BLOOD COUNT 4260758 MCV 87.9 fL 5 Unknown COMPLETE BLOOD COUNT 0248362 MCH 30.2 pg 5 Unknown COMPLETE BLOOD COUNT 0703334 MCHC 34.3 g/dL 5 Unknown COMPLETE BLOOD COUNT 6190116 PLT 262 10e9/L 08/09/19 15 Unknown COMPLETE BLOOD COUNT 2921336 MPV 10.9 fL 5 Unknown COMPLETE BLOOD COUNT [id number] SAM % 58.7 % 5 Unknown COMPLETE BLOOD COUNT 6954077 LY % 21.5 % 5 Unknown COMPLETE BLOOD COUNT 5878549 MON % 14.0 % 5 Unknown COMPLETE BLOOD COUNT 0809781 EOS % 5.3 % 5 Unknown COMPLETE BLOOD COUNT 4971550 BASO % 0.5 % 5 Unknown COMPLETE BLOOD COUNT 3403078 RDW 13.1 % 5 Unknown COMPLETE BLOOD COUNT [id number] ABS SAM 3.46 10e9/L 015 Unknown COMPLETE BLOOD COUNT 2155990 ABS LYMPH 1.27 10e9/L 015 Unknown COMPLETE BLOOD COUNT [id number] ABS MONO 0.83 10e9/L 015 Unknown COMPLETE BLOOD COUNT [id number] ABS EOS 0.31 10e9/L 015 Unknown COMPLETE BLOOD COUNT 3887146 ABS BASO 0.03 10e9/L 015 Unknown COMPLETE BLOOD COUNT 3459498 RDW-SD 41.2 fL 5 Unknown THYROID STIMULATING HORMONE 06695 TSH 5.395 uIU/ML 08/09/2014 Unknown LIPID GROUP 09806 HDL TEST 52 MG/DL 08/09/2014 Unknown LIPID GROUP 96724 TRIG 113 MG/DL 08/09/2014 Unknown LIPID GROUP [id number] TEST LDL 158 MG/DL 08/09/2014 Unknown LIPID GROUP 87431 CHOL 233 MG/DL 08/09/2014 Unknown LIPID GROUP [id number] RCHOL/HDL 4.48 RATIO 08/09/2014 Unknow n LIPID GROUP 03625 NON-HDL CH 181 MG/DL 08/09/2014 Unknow n COMPLETE BLOOD COUNT [id number] WBC 6.8 10e9/L 09/09/19 14 Unknown COMPLETE BLOOD COUNT [id number] RBC 5.18 10e12/L 2013 Unknown COMPLETE BLOOD COUNT [id number] HGB 15.2 g/dL 4 Unknown COMPLETE BLOOD COUNT [id number] HCT DET 44.7 % 4 Unknown COMPLETE BLOOD COUNT [id number] MCV 86.3 fL 4 Unknown COMPLETE BLOOD COUNT [id number] MCH 29.3 pg 4 Unknown COMPLETE BLOOD COUNT [id number] MCHC 34.0 g/dL 4 Unknown COMPLETE BLOOD COUNT [id number] PLT 236 10e9/L 09/09/19 14 Unknown COMPLETE BLOOD COUNT [id number] MPV 11.0 fL 4 Unknown COMPLETE BLOOD COUNT [id number] SAM % 58.2 % 4 Unknown COMPLETE BLOOD COUNT [id number] LY % 21.9 % 4 Unknown COMPLETE BLOOD COUNT [id number] MON % 12.5 % 4 Unknown COMPLETE BLOOD COUNT [id number] EOS % 7.3 % 4 Unknown COMPLETE BLOOD COUNT [id number] BASO % 0.1 % 4 Unknown COMPLETE BLOOD COUNT [id number] RDW 13.6 % 4 Unknown COMPLETE BLOOD COUNT [id number] ABS SAM 3.96 10e9/L 014 Unknown COMPLETE BLOOD COUNT [id number] ABS LYMPH 1.49 10e9/L 014 Unknown COMPLETE BLOOD COUNT [id number] ABS MONO 0.85 10e9/L 014 Unknown COMPLETE BLOOD COUNT [id number] ABS EOS 0.50 10e9/L 014 Unknown COMPLETE BLOOD COUNT [id number] ABS BASO 0.01 10e9/L 014 Unknown COMPLETE BLOOD COUNT [id number] RDW-SD 42.3 fL 4 Unknown COMPREHENSIVE METABOLIC 82997 AST 27 U/L 2013 Unknown COMPREHENSIVE METABOLIC 43921 ALT 30 IU/L 2013 Unknown COMPREHENSIVE METABOLIC 34557 BUN 16 MG/DL 2013 Unknown COMPREHENSIVE METABOLIC 48793 ALBUMIN 4.9 GM/DL 2013 Unknown COMPREHENSIVE METABOLIC 86025 CHLORIDE 99 MMOL/L 2013 Unknown COMPREHENSIVE METABOLIC 84259 BILI TOT 0.7 MG/DL 2013 Unknown COMPREHENSIVE METABOLIC 47957 ALK PHOS 53 U/L 2013 Unknown COMPREHENSIVE METABOLIC 03532 SODIUM 137 MMOL/L 09/08 Unknown COMPREHENSIVE METABOLIC 93148 CREATININE 1.01 MG/DL 11/2013 Unknown COMPREHENSIVE METABOLIC 48976 CALCIUM 10.0 MG/DL 09/08 Unknown COMPREHENSIVE METABOLIC 37432 POTASSIUM 4.4 MMOL/L 09/08 Unknown COMPREHENSIVE METABOLIC 43859 PROT TOT 7.1 GM/DL 2013 Unknown COMPREHENSIVE METABOLIC 35636 Glucose 148 MG/DL 2013 Unknown COMPREHENSIVE METABOLIC 41898 BICARB 30 MMOL/L 2013 Unknown COMPREHENSIVE METABOLIC 10468 ANION GAP 8 MEQ/L 2013 Unknown GFR CALC 6618755 GFR AA >60 ML/MIN 09/08/2013 Unknown GFR CALC 9535475 GFR NON-AA >60 ML/MIN 09/08/2013 Unknown FREE T4 31106 FREE T4 1.08 NG/DL 09/08/2013 Unknown GLYCOSYLATED HEMOGLOBIN TEST 21780 A1C HPLC 54627-1 7.3 % 0 09/08/2013 Unknown THYROID STIMULATING HORMONE 03592 TSH 5.454 uIU/ML 09/08/2013 Unknown LIPID GROUP 65964 HDL TEST 59 MG/DL 09/08/2013 Unknown LIPID GROUP 64594 TRIG 92 MG/DL 09/08/2013 Unknown LIPID GROUP 69454 TEST LDL 83 MG/DL 09/08/2013 Unknown LIPID GROUP 11108 CHOL 160 MG/DL 09/08/2013 Unknown LIPID GROUP 81356 RCHOL/HDL 2.71 RATIO 09/08/2013 Unknow n VITAMIN B 12 FOLIC ACID 79830|96976 VIT B 12 467 PG/ML 12/2012 Unknown VITAMIN B 12 FOLIC ACID 82778|28701 FOLIC ACID 12.2 NG/ML Unknown VITAMIN B 12 FOLIC ACID 08651|45956 VIT B 12 467 PG/ML 12/2012 Unknown THYROID STIMULATING HORMONE 01955 TSH 4.557 uIU/ML 03/12/2013 Unknown HEMOGLOBIN A1C (GLYCOSYLATED) 2116753 A1C HPLC 50104-2 7.6 % 03/12/2013 Unknown VITAMIN D TOTAL (25 HYDROXY) 77628 VIT D TOTL 17 NG/ML 03/12/2013 Unknown FREE T4 64939 FREE T4 1.07 NG/DL 03/12/2013 Unknown URIC ACID 81783 URIC ACID 5.2 MG/DL 03/12/2013 Unknown Procedures Procedure Codes Date THER/PROPH/DIAG INJ SC/IM CPT-4: 92331 05/13/2019 TRIAMCINOLONE ACET INJ NOS CPT-4: J3301 05/13/2019 DEXAMETHASONE SODIUM PHOS CPT-4: J1100 05/13/2019 THER/PROPH/DIAG INJ SC/IM CPT-4: 12566 02/22/2019 TRIAMCINOLONE ACET INJ NOS CPT-4: J3301 02/22/2019 FLU VACC PRSV FREE INC ANTIG 65 AND OLDER CPT-4: 40010 04/21/2018 ADMIN INFLUENZA VIRUS VAC CPT-4: G0008 04/21/2018 PRESCRIP TRANSMIT VIA ERX SY CPT-4: G8553 04/21/2018 DESTRUCT PREMALG LESION (Cryosurgery) CPT-4: 12640 FLU VACC PRSV FREE INC ANTIG 65 AND OLDER CPT-4: 29090 04/22/2017 ADMIN INFLUENZA VIRUS VAC CPT-4: G0008 04/22/2017 PRESCRIP TRANSMIT VIA ERX SY CPT-4: G8553 10/10/2016 PRESCRIP TRANSMIT VIA ERX SY CPT-4: G8553 08/29/2015 ROUTINE VENIPUNCTURE CPT-4: 66258 07/26/2015 ASSAY OF FREE THYROXINE CPT-4: 20119 07/26/2015 ASSAY THYROID STIM HORMONE CPT-4: 11073 07/26/2015 COMPREHEN METABOLIC PANEL CPT-4: 07684 07/26/2015 COMPLETE CBC W/AUTO DIFF WBC CPT-4: 23664 07/26/2015 LIPID PANEL CPT-4: 35766 07/26/2015 ASSAY OF PSA TOTAL CPT-4: 64782 07/26/2015 A1C HPLC CPT-4: 29666 07/26/2015 ROUTINE VENIPUNCTURE CPT-4: 86402 01/17/2015 ASSAY OF FREE THYROXINE CPT-4: 94068 01/17/2015 ASSAY THYROID STIM HORMONE CPT-4: 69843 01/17/2015 COMPREHEN METABOLIC PANEL CPT-4: 88361 01/17/2015 COMPLETE CBC W/AUTO DIFF WBC CPT-4: 28617 01/17/2015 A1C HPLC CPT-4: 89780 01/17/2015 VITAMIN B-12 CPT-4: 44527 01/17/2015 PPPS, subseq visit CPT-4: G0439 08/04/2014 PRESCRIP TRANSMIT VIA ERX SY CPT-4: G8553 02/18/2014 FLUZONE, 5ML (Medicare) CPT-4: Q2038 07/22/2013 ADMIN INFLUENZA VIRUS VAC CPT-4: G0008 07/22/2013 PRESCRIP TRANSMIT VIA ERX SY CPT-4: G8553 04/28/2013 ROUTINE VENIPUNCTURE CPT-4: 91674 03/12/2013 VITAMIN D TOTAL (25 HYDROXY) CPT-4: 41221 03/12/2013 VITAMIN B 12 FOLIC ACID CPT-4: 53314|01283 03/12/2013 A1C GLYCOSYLATED HEMOGLOBIN TEST CPT-4: 66647 013 ASSAY OF BLOOD/URIC ACID CPT-4: 42897 03/12/2013 ASSAY OF FREE THYROXINE CPT-4: 60425 03/12/2013 ASSAY THYROID STIM HORMONE CPT-4: 98960 03/12/2013 CUR TOBACCO NON-USER CPT-4: G8457 03/11/2013 [...] 1: 156/70 Code: 8480-6 BMI: 35.0 Code: 93038-8 Heart Rate 1: 68 bpm Height: 5'10" Respiratory Rate: 20 bpm SpO2: 95% Tempera ture: 36.5 (C) / 97.7 (F) Weight: 244 lbs 04/21/2018 Blood Pressure 1: 124/80 Code: 8480-6 BMI: 34.4 Code: 28494-9 Heart Rate 1: 80 bpm Height: 5'10" Respiratory Rate: 20 bpm SpO2: 96% Tempera ture: 37.0 (C) / 98.6 (F) Weight: 240 lbs 01/06/2018 Blood Pressure 1: 138/82 Code: 8480-6 BMI: 33.9 Code: 13462-1 Heart Rate 1: 96 bpm Height: 5'10" Respiratory Rate: 24 bpm SpO2: 98% Tempera ture: 35.9 (C) / 96.6 (F) Weight: 236 lbs 10/22/2017 Blood Pressure 1: 144/70 Code: 8480-6 BMI: 34.7 Code: 78569-9 Heart Rate 1: 72 bpm Height: 5'10" Respiratory Rate: 20 bpm SpO2: 96% Tempera ture: 36.9 (C) / 98.4 (F) Weight: 242 lbs 04/22/2017 Blood Pressure 1: 146/82 Code: 8480-6 BMI: 32.9 Code: 98511-3 Heart Rate 1: 104 bpm Height: 5'10" Respiratory Rate: 20 bpm SpO2: 95% Tempera ture: 36.9 (C) / 98.5 (F) Weight: 229 lbs 10/10/2016 Blood Pressure 1: 124/64 Code: 8480-6 BMI: 32.9 Code: 46684-4 Heart Rate 1: 64 bpm Height: 5'10" [...] 1: 146/90 Code: 8480-6 BMI: 34.1 Code: 12200-8 Heart Rate 1: 80 bpm Height: 5'10" Respiratory Rate: 20 bpm Temperature: 36 .8 (C) / 98.2 (F) Weight: 238 lbs 01/17/2015 Blood Pressure 1: 116/60 Code: 8480-6 BMI: 32.7 Code: 14192-3 Heart Rate 1: 84 bpm Height: 5'10" Respiratory Rate: 20 bpm Temperature: 36 .7 (C) / 98.0 (F) Weight: 228 lbs 09/29/2014 Blood Pressure 1: 136/78 Code: 8480-6 BMI: 33.9 Code: 58892-3 Heart Rate 1: 80 bpm Height: 5'10" Respiratory Rate: 20 bpm Temperature: 36 .6 (C) / 97.9 (F) Weight: 236 lbs 08/04/2014 Blood Pressure 1: 132/70 Code: 8480-6 BMI: 32.9 Code: 46255-8 Heart Rate 1: 72 bpm Height: 5'10" Respiratory Rate: 20 bpm Temperature: 36 .7 (C) / 98.0 (F) Weight: 229 lbs 02/18/2014 Blood Pressure 1: 124/82 Code: 8480-6 Heart Rate 1: 82 bpm Respiratory Rate: 18 bpm Temperature: 36.4 (C) / 97.5 (F) Weight: 232 lbs 07/29/2013 Blood Pressure 1: 146/80 Code: 8480-6 BMI: 34.1 Code: 49002-6 Heart Rate 1: 64 bpm Height: 5'10" Respiratory Rate: 20 bpm Temperature: 36 .9 (C) / 98.5 (F) Weight: 238 lbs 05/26/2013 Blood Pressure 1: 142/90 Code: 8480-6 BMI: 34.0 Code: 61272-2 Heart Rate 1: 84 bpm Height: 5'10" Respiratory Rate: 20 bpm Temperature: 36 .7 (C) / 98.0 (F) Weight: 237 lbs 04/28/2013 Blood Pressure 1: 118/78 Code: 8480-6 BMI: 32.9 Code: 63463-0 Heart Rate 1: 74 bpm Height: 5'10" Respiratory Rate: 20 bpm Temperature: 36 .1 (C) / 97.0 (F) Weight: 229 lbs 03/11/2013 Blood Pressure 1: 146/80 Code: 8480-6 BMI: 31.5 Code: 19925-7 Heart Rate 1: 80 bpm Height: 6' [...] Codes Date () OFFICE/OUTPATIENT VISIT EST Diagnosis: Upper respiratory infection[ICD10: J06.9] Pennie Pizarro Fabrizio MOICARLOS DelphineEdvin [employer] CPT-4: 17909 06/02/2019 ([id number]) OFFICE/OUTPATIENT VISIT EST Diagnosis: Sinusitis[ICD10: J32.9] Diagnosis: Allergic rhinitis[ICD10: J30.9] Pennie HANLINE SEdvin REEDER [employer] CPT-4: 15382 05/13/2019 ([id number]) OFFICE/OUTPATIENT VISIT EST Diagnosis: Pneumonia[ICD10: J18.9] Pennie HANLINE S. [employer] CPT-4: 27481 04/26/2019 ([id number]) OFFICE/OUTPATIENT VISIT EST Diagnosis: Acute sinusitis, unspecified[ICD10: J01.90] Pennie Pinondi XIOMARA S. 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] Diagnosis: Paroxysmal atrial fibrillation[ICD10: I48.0] [facility] CPT-[facility]: 47556 07/22/2018 ([id number]) OFFICE/OUTPATIENT VISIT EST Diagnosis: Type 2 diabetes mellitus with diabetic neuropathy, unspecified[ICD10: E11.40] Diagnosis: Hyperlipidemia, unspecified[ICD10: E78.5] Diagnosis: Essential (primary) hypertension[ICD10: I10] Diagnosis: Chronic kidney disease, stage 1[ICD10: N18.1] Diagnosis: Benign prostatic hyperplasia with lower urinary tract symptoms[ICD10: N40.1] Diagnosis: FLU VACCINE[ICD10: Z23] Xiomara [facility] CPT-4: 19751 04/21/2018 OFFICE/OUTPATIENT VISIT EST Diagnosis: Type 2 diabetes mellitus with hyperglycemia[ICD10: E11.65] Diagnosis: Essential (primary) hypertension[ICD10: I10] Diagnosis: Mixed hyperlipidemia[ICD10: E78.2] Diagnosis: Other fatigue[ICD10: R53.83] [facility]: 57781 01/06/2018 ([id number]) OFFICE/OUTPATIENT VISIT EST Diagnosis: Type 2 diabetes mellitus with diabetic neuropathy, unspecified[ICD10: E11.40] Diagnosis: Essential (primary) hypertension[ICD10: I10] Diagnosis: Pain in right thigh[ICD10: M79.651] Diagnosis: Pain in left leg[ICD10: M79.605] Diagnosis: Localized swelling, mass and lump, left lower limb[ICD10: R22.42] Diagnosis: OSTEOARTHRISIS MULTI SITES[ICD10: M19.90] Diagnosis: FLU VACCINE[ICD10: Z23] Xiomara [facility] CPT-4: 59335 04/22/2017 ([id number]) OFFICE/OUTPATIENT VISIT EST Diagnosis: Essential (primary) hypertension[ICD10: I10] Diagnosis: Type 2 diabetes mellitus with hyperglycemia[ICD10: E11.65] Diagnosis: Angina pectoris, unspecified[ICD10: I20.9] [facility] CPT-[facility]: 14205 10/10/2016 ([id number]) OFFICE/OUTPATIENT VISIT EST Diagnosis: Cough[ICD10: R05] Diagnosis: Wheezing[ICD10: R06.2] Diagnosis: Chronic obstructive pulmonary disease, unspecified[ICD10: J44.9] [facility] CPT-[facility]: 23413 08/31/2015 OFFICE/OUTPATIENT VISIT EST Diagnosis: Acute bronchitis, unspecified[ICD10: J20.9] Diagnosis: Wheezing[ICD10: R06.2] Kelsie Grubbs [facility] CPT-4: 85605 08/29/2015 ([id number]) OFFICE/OUTPATIENT VISIT EST Diagnosis: Type 2 diabetes mellitus with diabetic neuropathy, unspecified[ICD10: E11.40] Diagnosis: Hyperlipidemia, unspecified[ICD10: E78.5] Diagnosis: Essential (primary) hypertension[ICD10: I10] Diagnosis: Encounter for general adult medical examination without abnormal findings[ICD10: Z00.00] Xiomara Rut HANLINE Elvia [facility] C[facility]: 38183 07/26/2015 OFFICE/OUTPATIENT VISIT EST Diagnosis: Type 2 diabetes mellitus with hyperglycemia[ICD10: E11.65] Diagnosis: Unspecified osteoarthritis, unspecified site[ICD10: M19.90] Diagnosis: Other instability, right knee[ICD10: M25.361] Kelsie BETTENCOURT DO [facility] CPT-4: 17891 07/24/2015 ([id number]) OFFICE/OUTPATIENT VISIT EST Diagnosis: Pain in leg, unspecified[ICD10: M79.606] Diagnosis: Type 2 diabetes mellitus with diabetic neuropathy, unspecified[ICD10: E11.40] Xiomara BETTENCOURT DO [facility] CPT-4: 24751 05/01/2015 ([id number]) OFFICE/OUTPATIENT VISIT EST Diagnosis: MALAISE AND FATIGUE[ICD9: 780.79] Diagnosis: 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, 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] Diagnosis: CAD[ICD9: 414.00] Diagnosis: ANEMIA NOS[ICD9: 285.9] Xiomara [facility] CPT-4: 78235 01/17/2015 ([id number]) OFFICE/OUTPATIENT VISIT EST Diagnosis: Skin lesion[ICD9: 709.9] Xiomara HAND [facility] CPT-4: 90067 09/29/2014 OFFICE/OUTPATIENT VISIT EST Diagnosis: GASTROENTERITIS[ICD9: 558.9] Diagnosis: GERD[ICD9: 530.81] Kelsie BETTENCOURT [facility] CPT-4: 40218 02/18/2014 ([id number]) OFFICE/OUTPATIENT VISIT EST Diagnosis: 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I, UNCONTROLLED[ICD9: 250.02] Xiomara BETTENCOURT [facility] CPT-4: 92138 07/29/2013 ([id number]) OFFICE/OUTPATIENT VISIT EST Diagnosis: FLU VACCINE[ICD9: V04.81] Xiomara MAGALLON [facility] CPT-4: 67826 07/22/2013 ([id number]) OFFICE/OUTPATIENT VISIT EST Diagnosis: 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I, UNCONTROLLED[ICD9: 250.02] Diagnosis: HYPERTENSION[ICD9: 401.9] Xiomara MAGALLON [facility] CPT-4: 58981 05/26/2013 ([id number]) OFFICE/OUTPATIENT VISIT EST Diagnosis: MONONEURITIS[ICD9: 355.9] Diagnosis: RESTLESS LEGS SYNDROME[ICD9: 333.94] Diagnosis: HYPERTENSION[ICD9: 401.9] Diagnosis: CAD[ICD9: 414.00] Diagnosis: Weakness[ICD9: 780.79] Xiomara Dolan [employer] CPT-4: 47861 04/28/2013 ([id number]) OFFICE/OUTPATIENT VISIT EST Diagnosis: 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[ICD9: 250.01] Diagnosis: MONONEURITIS[ICD9: 355.9] Diagnosis: HYPERLIPIDEMIA NEC/NOS[ICD9: 272.4] Diagnosis: CAD[ICD9: 414.00] Xiomara BETTENCOURT [employer] CPT-4: 66893 03/12/2013 OFFICE/OUTPATIENT VISIT NEW Diagnosis: CAD[ICD9: 414.00] Diagnosis: HYPERLIPIDEMIA NEC/NOS[ICD9: 272.4] Diagnosis: HYPERTENSION[ICD9: 401.9] Diagnosis: Neuropathy[ICD9: 355.9] Diagnosis: RESTLESS LEGS SYNDROME[ICD9: 333.94] Xiomara BETTENCOURT [employer] CPT-4: 98208 03/11/2013 Plan of Care Planned Activity Notes [...] ICD-10 : J06.9 06/02/2019 [id number] [facility] 06/02/2019 Visit Diagnosis Plan: Allergic [...] : 477.9 ICD-10 : J30.9 05/13/2019 Appointment: Moira, Pennie R. [address] [place], [place] [id number] ACUTE ILLNESS 05/13/2019 Appointment: Xiomara Bettencourt WPtel: [phone] [phone] CANCELED 04/27/2019 Visit Diagnosis Plan: Pneumonia Discussion: will obtai n records from urgent care. instructed to finish out doxy. no rhonchi or crackles auscultated. symbicort sample given to patient with instructions to use bid. call office later this week with new or worsening symptoms. ICD-9 : 486 ICD-10 : J18.9 04/26/2019 Appointment: Pennie Pizarro [address] [place] [address] FOLLOW UP 04/26/2019 Visit Diagnosis Plan: Acute [...] : J01.90 02/22/2019 Appointment: Pennie Pizarro [address] [place] [address] ACUTE ILLNESS 02/22/2019 Patient Education: prednisone- [employer] Coupon [phone] [email or web address] Completed 02/22/2019 Visit Diagnosis Plan: Cervicalgia Discussion: Check Ce rvical Spine X-ray Will likely need PT ICD-9 : 723.1 ICD-10 : M54.2 11/25/2018 Appointment: Xiomara Bettencourt WPtel: [phone] [id number] ACUTE ILLNESS 11/25/2018 Visit Plan: Saline nasal [...] prn. Tyle... 11/19/2018 Appointment: Xiomara Bettencourttel: [phone] ACUTE ILLNESS 11/19/2018 Patient Education: baclofen- [employer] Coupon [phone] [email or web address] Completed 11/19/2018 Visit Diagnosis Plan: Paroxysmal atrial [...] 401.9 ICD-10 : I10 07/22/2018 Appointment: Xiomara Bettencourttel: [phone] [phone] FOLLOW UP 07/22/2018 Visit Diagnosis Plan: Benign prostatic h yperplasia with lower urinary tract symptoms Discussion: Trial of flomax Call in 1 mo nth on how doing Follow Up: 4 months ICD-9 : 600.21 ICD-10 : N40.1 04/21/2018 Visit Diagnosis Plan: Chronic kidney disease, [...] ICD-9 : 272.4 ICD-10 : E78.5 04/21/2018 Appointment: Xiomara Bettencourt WPtel: [phone] [facility] [facility] 04/21/2018 Patient Education: Patient [...] ICD-10 : E11.65 01/06/2018 Appointment: Pennie Pizarro [address] [place] [address] MEDICATION REVIEW 01/06/2018 Patient Education: Patient Medication Summary Completed 01/06/2018 Appointment: Xiomara Bettencourt WPtel: [address] [place], [place] [phone] [place] NO SHOW 01/05/2018 Appointment: Xiomara Bettencourt WPtel: [address] [place] [address] [place] CANCELED 12/31/2017 Visit Diagnosis Plan: Actinic keratosis Discussion: Cr yotherapy as above but will see derm if lesions do not resolve ICD-9 : 702.0 ICD-10 : L57.0 10/22/2017 Appointment: Xiomara Bettencourt WPtel: [address] [place] [address] ACUTE ILLNESS 10/22/2017 Patient Education: Patient Medication [...] M19.90 04/22/2017 Appointment: Xiomara Bettencourt WPtel: [phone] [facility] [place] FOLLOW UP 04/22/2017 Patient Education: Patient Medication Summary Completed 04/22/2017 Patient Education: Patient Medication Summary Completed 04/16/2017 Care Plan: COMPREHEN METABOLIC PANEL SERGEI NC : 11425-2 Pending 04/16/2017 Care Plan: LIPID PANEL LOINC : 58438-7 Pending 04/16/2017 Care Plan: CBC Pending 04/16/2017 Care Plan: A1C HPLC LOINC : 96672-7 Pending 04/16/2017 Ref[facility] Inocencio [phone] [id number] [facility] Confirmed 10/14/2016 [...] E11.65 10/10/2016 Appointment: Xiomara Bettencourt WPtel: [phone] [facility] [facility] 10/10/2016 Patient Education: Patient Medication Summary Completed 10/10/2016 Patient Education: Patient Medication Summary Completed 09/16/2016 Care Plan: COMPREHEN METABOLIC PANEL SERGEI NC : 21593-9 Pending 09/16/2016 Care Plan: ASSAY THYROID STIM HORMONE Pen ding 09/16/2016 Care Plan: ASSAY OF FREE THYROXINE Pendin g 09/16/2016 Care Plan: LIPID PANEL LOINC : 35861-0 Pending 09/16/2016 Care Plan: CBC Pending 09/16/2016 Care Plan: A1C HPLC LOINC : 64903-0 Pending 09/16/2016 Visit Plan: CXR now to further evaluate symptoms Suspect viral since he has been on 2 rounds of antibiotics If chronic lung disease evident, will consider keeping on symbicort senior living Sample inhaler given today with instructions on use Continue oral prednisone, would like to avoid injection if possible considering his DM status and he is stable right now Continue albuterol PRN Will call with CXR results 08/31/2015 Appointment: Cornelio Shannan [address] [place] [address] 08/31 confirmed- SP ACUTE ILLNESS 08/31/2015 Patient Education: Patient Medication Summary Completed 08/31/2015 Visit Plan: Albuterol INH via SVN every 4 hours Prednisone 20 mg PO BID Notify for worsening symptoms 08/29/2015 Appointment: Kelsie Grubbs WPtel: [address] [place] [address] ACUTE ILLNESS 08/29/2015 Patient Education: Patient Medication Summary Completed 08/29/2015 Appointment: Xiomara Bettencourt WPtel: [address] [place], [place] [phone] LAB 07/26/2015 Patient Education: Patient Medication Summary Completed 07/26/2015 Visit Plan: Return in am for fasting lab s - CBC, CMP, TSH, Free T4, HgbA1C Change Levemir to Toujeo - Continue 35 Units q am - sample given Start physical Therapy for increased quadriceps strengthening and decreased pain in knees, bilaterally. 07/24/2015 Appointment: Kelsie Grubbs WPtel: [address] [place], [place] [phone] 07/21 appt confirmed cn FOLLOW UP 07/24/19 16 Appointment: Kelsie Grubbs WPtel: [address] [place], [place] [phone] FOLLOW UP 07/24/2015 Patient Education: Patient Medication [...] with insulin 05/01/2015 Appointment: Xiomara Bettencourt WPtel: [address] [place] [address] 04/28 confirmed~ ACUTE ILLNESS 05/01/2015 Patient Education: Patient Medication Summary Completed 05/01/2015 Patient Education: Patient Medication Summary Completed 01/19/2015 Care Plan: URINALYSIS AUTO W/O SCOPE SERGEI NC : 67965-1 Pending 01/19/2015 Visit Plan: I have went [...] cath done--had chemical stress test 01/17/2015 Appointment: Xiomaar Bettencourt WPtel: [address] [place] [address] 01/16 vm cn ACUTE ILLNESS 01/17/2015 Patient Education: Patient Medication Summary Completed 01/17/2015 Visit Plan: See Dr. Garvin for removal 09/29/2014 Appointment: Xiomara Bettencourt WPtel: [address] [place] [address] ACUTE ILLNESS 09/29/2014 Referral: Colt Garvin WPtel: [address] [place] [address] Referral Initiated 09/29/2014 Patient Education: Patient Medication Summary Completed 09/29/2014 Visit Plan: Check CBC, CMP, TSH, free T4 , HbA1C, Lipids Accuchecks daily alternating times Patient has been adjusting own meds and has not taken any cholesterol meds for sometime Will check into surgery on right knee at [facility] Check carotid dopplers 08/04/2014 Appointment: Xiomara Bettencourt WPtel: [address] [place] [address] Annual Well Visit 08/04/2014 Patient Education: Patient Medication Summary Completed 08/04/2014 Appointment: Kelsie Grubbs WPtel: [address] [place] [address] ACUTE ILLNESS 02/18/2014 Patient Education: Patient Medication Summary Completed 02/18/2014 Patient Education: [facility] - Saving AutoInj - 18+ - Dynamic Portal ID Completed 02/18/2014 Appointment: Xiomara Bettencourt WPtel: [address] [place], [place] [phone] [place] LAB 09/08/2013 Visit Plan: Check fasting lab in 1mo Con tinue Lantus and accuchecks at least BID 07/29/2013 Appointment: Xiomara Bettencourt WPtel: [address] [place], [place] [phone] [place] FOLLOW UP 07/29/2013 Patient Education: Patient Medication Summary Completed 07/29/2013 Appointment: Xiomara Bettencourt WPtel: [address] [place], [place] [phone] [place] INJECTION 07/22/2013 Patient Education: Patient Medication Summary Completed 07/22/2013 Visit Plan: Pt has been self-adjusting m eds Stop metformin and amaryl Use Levemir 25u sc BID and call in 1wk with BS readings 05/26/2013 Appointment: Xiomara Bettencourt WPtel: [address] [place], [place] [phone] FOLLOW UP 05/26/2013 Patient Education: Patient Medication Summary Completed 05/26/2013 Visit Plan: DC Metformin Increase Lantus to 30u sc daily Change lisinopril to lisinopril HCT 20/25mg q AM Continue Gabapentin at current dose 04/28/2013 Appointment: Xiomara Bettencourt WPtel: [address] [place], [place] [phone] [place] FOLLOW UP 04/28/2013 Patient Education: Patient Medication Summary Completed 04/28/2013 Appointment: Xiomara Bettencourt WPtel: [address] [place], [place] [phone] [place] LAB 03/12/2013 Patient Education: Patient Medication Summary Completed 03/12/2013 Visit Plan: Trial of neurontin 400mg q H S Obtain most recent lab results Change levemir to lantus per pt request Pt goes for sleep study tonite 03/11/2013 Appointment: Xiomara Bettencourt WPtel: [phone] [id number] 02/01paperwork mailed 03/10 confirmed with spouse NEW PATIENT 11/2012 Patient Education: Patient Medication Summary Completed 03/11/2013 Instructions Comment . Saline nasal flushes prn. Tylenol/Motr in prn headache. Notify if persists/symptoms worsening. . CXR now to further evaluate symptoms Suspect viral since he has been on 2 rounds of antibiotics If chronic lung disease evident, will consider keeping on symbicort [employer] Sample inhaler given today with [...] check into surgery on right knee at [facility] Check carotid dopplers . Check fasting [...]
--- OUTSIDE RECORDS SUMMARY | 2020-02-02 21:46 | XMS REPORT | CCD ---
Author Author Sheng Bettencourt D.O. Organization [facility] Address [address] [place] [address] Phone Care Team Providers Care Client Finance Analyst Name Role Phone PP Unavailable CCM Unavailable Summary Purpose Interface Exchange Insurance Providers Payer name Policy type / Coverage type Covered democrat ID Effective Begin Date Effective End Date WPS MEDIC[place] PART B [place] Medicare Part B [id number] 2018 Unknown [facility] Medicare Part B [id number] 2018 Un known Family history Mother Diagnosis Age At Onset Diabetes mellitus Type 2 Unknown Hypercholesterolemia Unknown Father Diagnosis Age At Onset No Family Disease Entered N/A Social History Social History Element Codes Description Effective Dates Marital status Unknown 03/11/2013 Number of children Unknown 4 03/11/2013 Employment Unknown Retired 03/11/[address]: 6889083 Former smoker 03/11/[address]: 482061 Currently drinks alc ohol Socially 03/11/2013 Has [...] Fill Instructions simvastatin 20 mg tablet RxNorm: 559888 1 Tablet(s) Ora l QD Needs updated fasting labs 07/21/2019 08/19/2019 Active Needs updated fa sting labs before 90 day refill simvastatin 20 mg tablet RxNorm: 099246 1 Tablet(s) Ora l QD Needs updated fasting labs 06/23/2019 07/20/2019 Inactive Needs updated fa sting labs before 90 day refill Flomax 0.4 mg capsule RxNorm: 807241 1 Capsule(s) Oral QD 9 No Stop Date Active Flomax 0.4 mg capsule RxNorm: 794761 TAKE TWO CAPSULES BY MOUTH EVERY EVENING 03/19/2019 05/12/2019 Inactive Augmentin 500 mg-125 mg tablet RxNorm: 017884 1 Tablet(s) PO BID 03/03/2019 Inactive baclofen 10 mg tablet RxNorm: 897665 TAKE ONE TABLET BY MOUTH EVERY NIGHT AT BEDTIME FOR PAIN OR SPASMS 01/14/2019 05/12/2019 Inactive Flomax 0.4 mg capsule RxNorm: 188086 TAKE TWO CAPSULES BY MOUTH EVERY EVENING 01/12/2019 03/18/2019 Inactive gabapentin 400 mg capsule RxNorm: 671246 1 Capsule(s) PO QPM 201806/27/2019 Inactive baclofen 10 mg tablet RxNorm: 240817 1 Tablet(s) PO QHS for my n/spasm 12/15/2018 01/13/2019 Inactive simvastatin 20 mg tablet RxNorm: 838957 TAKE ONE TABLET BY MOUT H DAILY 12/11/2018 06/22/2019 Inactive OneTouch Ultra Blue Test Strip RxNorm: Use 1 rigoberto t strip three times daily to check blood sugar (Dx:E11.65) 12/07/2018 No Stop Date Active gabapentin 400 mg capsule RxNorm: 047541 TAKE ONE CAPSU LE BY MOUTH EVERY EVENING 12/04/2018 12/29/2018 Inactive baclofen 10 mg tablet RxNorm: 570967 1 Tablet(s) PO QHS for my n/spasm 11/19/2018 12/15/2018 Inactive Flomax 0.4 mg capsule RxNorm: 208932 2 Capsule(s) PO QPM 09/15/2018 0 12/13/2018 Inactive WOULD LIKE 90DS!!! gabapentin 400 mg capsule RxNorm: 921041 TAKE ONE CAPSU LE BY MOUTH EVERY EVENING 07/21/2018 10/18/2018 Inactive simvastatin 20 mg tablet RxNorm: 540268 1 Tablet(s) PO QD 06/15/2018 12/10/2018 Inactive Flomax 0.4 mg capsule RxNorm: 265512 TAKE TWO CAPSULES BY MOUTH EVERY EVENING 06/02/2018 09/15/2018 Inactive WOULD LIKE 90DS!!! Flomax 0.4 mg capsule RxNorm: 233908 2 Capsule(s) PO QPM 04/21/2018 1 07/20/2017 Inactive simvastatin 20 mg tablet RxNorm: 554650 1 Tablet(s) PO QD Take 1 tablet by mouth daily. Patient due for labwork before further refill. 04/06/20182017 Inactive simvastatin 20 mg tablet RxNorm: 381257 Tablet(s) TAKE ONE TABLET BY MOUTH DAILY 03/25/2018 06/15/2018 Inactive simvastatin 20 mg tablet RxNorm: 113076 Tablet(s) TAKE ONE TABLET BY MOUTH DAILY due for appt 12/29/2017 03/25/2018 Inactive simvastatin 20 mg tablet RxNorm: 562236 TAKE ONE TABLET BY MOUT H DAILY 09/03/2017 12/29/2017 Inactive simvastatin 20 mg tablet RxNorm: 349981 1 Tablet(s) PO QD 10/22/2016 11/18/2018 Inactive isosorbide mononitrate ER 60 mg tablet,extended release 24 h r RxNorm: 347083 1 Tablet(s) PO QD 10/22/2016 04/21/2017 Inactive isosorbide mononitrate ER 60 mg tablet,extended release 24 h r RxNorm: 232560 1 Tablet(s) PO QD 10/10/2016 10/21/2016 Inactive simvastatin 20 mg tablet RxNorm: 058888 1 Tablet(s) PO QD 10/10/2016 10/21/2016 Inactive gabapentin 400 mg capsule RxNorm: 312818 1 Capsule(s) PO QPM 201609/20/2016 Inactive Toujeo SoloStar 300 unit/mL (1.5 mL) subcutaneous insulin pe n RxNorm: 9093793 35 Unit(s) SQ QAM 07/23/2016 07/22/2016 Inactive Toujeo SoloStar 300 unit/mL (1.5 mL) subcutaneous insulin pe n RxNorm: 2232265 40 Unit(s) SQ QAM 09/01/2015 No Stop Date Active Symbicort 160 mcg-4.5 mcg/actuation HFA aerosol inhaler RxNo rm: 5955696 2 Puff(s) INH BID 08/31/2015 09/09/2015 Inactive prednisone 20 mg tablet RxNorm: 348757 1 Tablet(s) PO BID 08/29/2015 09/02/2015 Inactive albuterol sulfate 2.5 mg/3 mL (0.083 %) solution for n ebulization RxNorm: 702927 1 Unit(s) INH Q4H as needed 08/29/2015 10/09/2016 Inactive levothyroxine 75 mcg tablet RxNorm: 474873 1 Tablet(s) PO QD 201507/27/2015 Inactive levothyroxine 75 mcg tablet RxNorm: 513801 1 Tablet(s) PO QD 201511/18/2018 Inactive levothyroxine 75 mcg tablet RxNorm: 549314 1 Tablet(s) PO QD 201507/27/2015 Inactive lisinopril 20 mg-hydrochlorothiazide 25 mg tablet RxNorm: 19 7887 TAKE ONE TABLET BY MOUTH EVERY MORNING. REPLACES PLAIN LISINOPRIL 03/06/2015 04/21/2017 Inactive lisinopril 20 mg-hydrochlorothiazide 25 mg tablet RxNorm: 19 7887 TAKE ONE TABLET BY MOUTH EVERY MORNING. REPLACES PLAIN LISINOPRIL 09/08/2014 03/05/2015 Inactive allopurinol 100 mg tablet RxNorm: 867551 1 Tablet(s) PO BID 015 10/09/2016 Inactive [SAVINGS FOR NON-COVERED YULIA GS -- BIN:[id number], PCN: [id number], Group: XXXXX, ID# [id number], Questions: . THIS IS NOT INSURANCE.] levothyroxine 50 mcg tablet RxNorm: 128070 1 Tablet(s) PO QD 201407/26/2015 Inactive [AttnRPh: Saving apply/adjud icate RxGRP:SG20 RxBIN:[id number] RxPCN: ID#:[id number]] Zegerid 40 mg-1.1 gram capsule RxNorm: 063945 1 Capsule(s) PO QD 03/03/2014 Inactive [AttnRPh: Saving apply/adjud icate RxGRP:SG20 RxBIN:[id number] RxPCN: ID#:[id number]] ondansetron 8 mg disintegrating tablet RxNorm: 099126 1 Tablet(s) PO Q8H as needed for [...] 07/28/2013 Inactive gabapentin 400 mg capsule RxNorm: 369545 1 Capsule(s) PO QPM 201207/28/2013 Inactive gabapentin 400 mg capsule RxNorm: 895425 1 Capsule(s) PO QPM 201206/26/2013 Inactive lisinopril 20 mg-hydrochlorothiazide 25 mg tablet RxNorm: 82 3971 1 Tablet(s) PO QAM replaces plain lisinopril 04/28/2013 07/29/2013 Inactive gabapentin 400 mg capsule RxNorm: 031448 1 Capsule(s) PO QPM 201204/27/2013 Inactive gabapentin 400 mg capsule RxNorm: 106828 1 Capsule(s) PO QPM 201203/10/2013 Inactive gabapentin 400 mg capsule RxNorm: 002959 1 Capsule(s) PO QPM 201203/14/2013 Inactive Lantus Solostar 100 unit/mL (3 mL) Sub-Q Insulin Pen RxNorm: 107166 20 Unit(s) SQ QPM 03/11/2013 03/15/2013 Inactive Toujeo SoloStar 300 unit/mL (1.5 mL) subcutaneous insulin pe n RxNorm: 9747597 35 Unit(s) SQ QAM No Start Date Active omeprazole 20 mg capsule,delayed release RxNorm: 836641 1 Capsu le(s) PO QD No Start Date Active isosorbide mononitrate ER 60 mg tablet,extended release 24 h r RxNorm: 878410 1 Tablet(s) PO QD No Start Date Active lisinopril 20 mg tablet RxNorm: 186438 1 Tablet(s) PO QD No Start Date Active Chlortab-4 oral RxNorm: 051752 oral No Start Date Activ e Eliquis 5 mg tablet RxNorm: 0951263 1 Tablet(s) PO BID No Start Date Active oxymetazoline-menthol 0.05 % nasal spray RxNorm: 5956031 [place] COTY No Start Date Active Patient states he ta kes every 10 hours metformin 500 mg tablet RxNorm: 625710 1 Tablet(s) PO BID No Start Da te Active levothyroxine 50 mcg tablet RxNorm: 254308 1 Tablet(s) PO QD No Start Date Active Plavix 75 mg tablet RxNorm: 298663 1 Tablet(s) PO QD No Start Date Active Norvasc 10 mg tablet RxNorm: 643821 1 Tablet(s) PO QHS No Start Date Active Zantac 150 mg tablet RxNorm: 441516 1 Tablet(s) PO QHS No Start Date Active Toujeo SoloStar 300 unit/mL (1.5 mL) subcutaneous insulin pe n RxNorm: 3976881 30 Unit(s) SQ QAM No Start Date Active glimepiride 4 mg tablet RxNorm: 464180 1 Tablet(s) PO QHS No Start Date 07/26/2015 Inactive allopurinol 100 mg tablet RxNorm: 260007 1 Tablet(s) PO BID No Star t Date 08/10/2014 Inactive Lantus Solostar 100 unit/mL (3 mL) subcutaneous insulin pen RxNorm: 772250 30 Unit(s) SQ QD No Start Date 08/03/2014 Inactive Levemir FlexTouch 100 unit/mL (3 mL) subcutaneous insulin pe n RxNorm: 118709 25 Unit(s) SQ QAM No Start Date 07/23/2015 Inactive Lantus 100 unit/mL Sub-Q RxNorm: 552469 30 Unit(s) SQ QHS No Start Date 05/25/2013 Inactive Lantus Solostar 100 unit/mL (3 mL) Sub-Q Insulin Pen RxNorm: 489505 20 Unit(s) SQ QPM No Start Date 03/10/2013 Inactive OneTouch Ultra Blue Test Strip RxNorm: Use 1 rigoberto t strip three times daily to check blood sugar (Dx:E11.65) No Start Date 12/06/2018 Inactive Levemir FlexTouch 100 unit/mL (3 mL) subcutaneous insulin pe n RxNorm: 889887 30- 35 Unit(s) SQ QAM No Start Date 07/23/2015 Inactive Levemir Flexpen 100 unit/mL (3 mL) solution subcutaneo us insulin pen RxNorm: 844003 20-25 Unit(s) SQ QD No Start Date 07/28/2013 Inactive indomethacin ER 75 mg capsule,extended release RxNorm: 78966 2 1 Capsule(s) PO QAM No Start Date 04/27/2013 Inactive indomethacin ER 75 mg capsule,extended release RxNorm: 49504 2 1 Capsule(s) PO QD No Start Date 01/16/2015 Inactive Vitamin D3 5,000 unit tablet RxNorm: 261999 1 Tablet(s) PO QD No St art Date 08/03/2014 Inactive Levemir Flexpen 100 unit/mL (3 mL) solution subcutaneo us insulin Pen RxNorm: 739691 20 Unit(s) SQ QHS No Start Date 03/10/2013 Inactive Vytorin 10 mg-40 mg tablet RxNorm: 5579738 1/2 Tablet(s) PO QD No S tart Date 04/20/2018 Inactive Toujeo SoloStar 300 unit/mL (1.5 mL) subcutaneous insulin pe n RxNorm: 9074680 35 Unit(s) SQ QAM No Start Date 07/22/2016 Inactive Lantus Solostar 100 unit/mL (3 mL) subcutaneous insulin pen RxNorm: 307853 20 Unit(s) SQ QD No Start Date 08/03/2014 Inactive aspirin 81 mg tablet RxNorm: 696306 1 Tablet(s) PO QD No Start Date 0 08/03/2014 Inactive metformin 500 mg tablet RxNorm: 203948 1 Tablet(s) PO BID No Start Date 07/28/2013 Inactive glimepiride 4 mg tablet RxNorm: 592953 1 Tablet(s) PO BID No Start Date 01/16/2015 Inactive glimepiride 4 mg tablet RxNorm: 340971 1 Tablet(s) PO QD No Start D ate 08/03/2014 Inactive levothyroxine 25 mcg tablet RxNorm: 794072 1 Tablet(s) PO QD No Sta rt Date 08/10/2014 Inactive doxycycline oral RxNorm: 69281 oral No Start Date 05/12/2019 Inac tive aspirin 81 mg tablet RxNorm: 084466 1 Tablet(s) PO QD No Start Date 0 07/21/2018 Inactive isosorbide mononitrate ER 60 mg tablet,extended release 24 h r RxNorm: 294009 1 Tablet(s) PO BID No Start Date 01/16/2015 Inactive metformin 500 mg tablet RxNorm: 058390 1 Tablet(s) PO BID No Start Date 04/27/2013 Inactive glimepiride 4 mg tablet RxNorm: 402465 1 Tablet(s) PO QPM No Start Date 02/21/2019 Inactive Vytorin 10-40 10 mg-40 mg tablet RxNorm: 5698384 1 Tablet(s) PO QHS No Start Date 08/03/2014 Inactive indomethacin 50 mg capsule RxNorm: 108388 1 Capsule(s) PO QHS No St art Date 01/16/2015 Inactive glimepiride 4 mg tablet RxNorm: 720063 1 Tablet(s) PO BID No Start Date 07/28/2013 Inactive Levemir FlexTouch 100 unit/mL (3 mL) subcutaneous insulin pe n RxNorm: 408364 20 Unit(s) SQ QD No Start Date 04/30/2015 Inactive lisinopril 20 mg tablet RxNorm: 504767 1 Tablet(s) PO BID No Start Date 04/27/2013 Inactive [place] Carranza SubQ RxNorm: Subcutaneous No Start Date 03/15/2013 I nactive allopurinol 300 mg tablet RxNorm: 288463 1 Tablet(s) PO QD No Start Date 08/03/2014 Inactive Fish Oil 1,000 mg capsule RxNorm: 1 Capsule(s) PO QD No Start Date 02/21/2019 Inactive indomethacin 50 mg capsule RxNorm: 138221 1 Capsule(s) PO BID No St art Date 04/20/2018 Inactive levothyroxine 50 mcg tablet RxNorm: 916097 1 Tablet(s) PO QD No Sta rt Date 08/10/2014 Inactive glimepiride 4 mg tablet RxNorm: 126763 1 Tablet(s) PO BID No Start Date 03/15/2013 Inactive indomethacin 50 mg capsule RxNorm: 19770714 1 Capsule(s) PO QHS No art Date 04/27/2013 Inactive Medication Administered No Medication Administered data Immunizations Vaccine Codes Date Status Influenza CVX: 135 04/21/2018 Complete Influenza CVX: 135 04/22/2017 Complete Results Observation Observation Code Item Item Code Result Date S ervice Location [facility] 69412 Cholesterol 209 mg/dL 09/17/2016 Unkno wn [facility] 08863 Triglyceride 111 mg/dL 09/17/2016 Unkn own [facility] 27528 HDL CHOLESTEROL 50 mg/dL 09/17/2016 U nknow [facility] 65447 Chol/HDL Ratio 4.18 ratio 09/17/2016 U nkno [facility] 80064 NON-HDL Chol 159 mg/dL 09/17/2016 Unkn own [facility] 13812 LDL Cholesterol 137 mg/dL 09/17/2016 U nknown MEAN GLUC 9884739 Calc Mean Gluc 151 mg/dL 09/17/2016 Unkn own COMPREHENSIVE METABOLIC 17709 AST 23 U/L 2016 Unknown COMPREHENSIVE METABOLIC 56204 ALT 19 U/L 2016 Unknown [facility] 52338 BUN 15 mg/dL 2016 Unknown [facility]HENS[facility] MET[facility]OL[facility] 91278 ALBUMIN 4.3 g/dL 2016 Unknown COMPREHENSIVE METABOLIC 24500 CHLORIDE 103 mmol/L 09/17 Unknown COMPREHENSIVE METABOLIC 53500 Bili Total 0.6 mg/dL 09/17 Unknown COMPREHENSIVE METABOLIC 94727 ALK PHOS 60 U/L 2016 Unknown COMPREHENSIVE METABOLIC 56873 SODIUM 140 mmol/L 09/17 Unknown COMPREHENSIVE METABOLIC 94351 CREATININE 1.03 mg/dL 09/04 Unknown COMPREHENSIVE METABOLIC 00837 CALCIUM 9.5 mg/dL 2016 Unknown COMPREHENSIVE METABOLIC 42653 POTASSIUM 3.9 mmol/L 09/17 Unknown COMPREHENSIVE METABOLIC 24275 Total Protein 6.9 g/dL Unknown COMPREHENSIVE METABOLIC 67790 Glucose 94 mg/dL 2016 Unknown COMPREHENSIVE METABOLIC 35174 Bicarbonate 28 mmol/L 09/04 Unknown COMPREHENSIVE METABOLIC 92202 AGAP 9 mmol/L 2016 Unknown GFR CALC 7697076 GFR Non Afr Amr >60 mL/min 09/17/2016 Un known GFR CALC 3315591 GFR Afr Amr >60 mL/min 09/17/2016 Unknow n THYROID STIMULATING HORMONE 97914 TSH 4.260 uIU/mL 09/17/2016 Unknown GLYCOSYLATED HEMOGLOBIN TEST 20748 Hgb A1c 35310-1 6.9 % 0 09/17/2016 Unknown FREE T4 71400 T4 Free 1.02 ng/dL 09/17/2016 Unknown COMPLETE BLOOD COUNT 2629635 WBC 8.6 10e9/L 07/26/19 16 Unknown COMPLETE BLOOD COUNT 6334873 RBC 4.86 10e12/L 2015 Unknown COMPLETE BLOOD COUNT 5307046 HGB 14.6 g/dL 6 Unknown COMPLETE BLOOD COUNT 5350876 HCT DET 43.1 % 6 Unknown COMPLETE BLOOD COUNT 3199440 MCV 88.7 fL 6 Unknown COMPLETE BLOOD COUNT 8743490 MCH 30.0 pg 6 Unknown COMPLETE BLOOD COUNT 2109271 MCHC 33.9 g/dL 6 Unknown COMPLETE BLOOD COUNT 8509252 PLT 267 10e9/L 07/26/19 16 Unknown COMPLETE BLOOD COUNT 9713919 MPV 11.5 fL 6 Unknown COMPLETE BLOOD COUNT 8044165 SAM % 64.8 % 6 Unknown COMPLETE BLOOD COUNT 3690007 LY % 16.8 % 6 Unknown COMPLETE BLOOD COUNT 3306290 MON % 12.5 % 6 Unknown COMPLETE BLOOD COUNT 0188099 EOS % 5.6 % 6 Unknown COMPLETE BLOOD COUNT 2544270 BASO % 0.3 % 6 Unknown COMPLETE BLOOD COUNT 7938368 RDW 13.4 % 6 Unknown COMPLETE BLOOD COUNT 6558038 ABS SAM 5.57 10e9/L 016 Unknown COMPLETE BLOOD COUNT 0516729 ABS LYMPH 1.44 10e9/L 016 Unknown COMPLETE BLOOD COUNT 1750251 ABS MONO 1.08 10e9/L 016 Unknown COMPLETE BLOOD COUNT 9528131 ABS EOS 0.48 10e9/L 016 Unknown COMPLETE BLOOD COUNT 6154206 ABS BASO 0.03 10e9/L 016 Unknown COMPLETE BLOOD COUNT 6538023 RDW-SD 42.9 fL 6 Unknown PSA EQUIMOLAR MATT 79600 PSA EQ 0.78 NG/ML 6 Unknown THYROID STIMULATING HORMONE 78766 TSH 5.292 uIU/ML 07/26/2015 Unknown GLYCOSYLATED HEMOGLOBIN TEST 94451 A1C HPLC 99525-6 7.0 % 0 07/26/2015 Unknown GFR CALC 1695544 GFR AA >60 ML/MIN 07/26/2015 Unknown GFR CALC 0482141 GFR NON-AA >60 ML/MIN 07/26/2015 Unknown [facility] 59638 HDL TEST 64 MG/DL 07/26/2015 Unknown [facility] 06841 TRIG 58 MG/DL 07/26/2015 Unknown [facility] 45066 TEST LDL 49 MG/DL 07/26/2015 Unknown [facility] 86279 CHOL 125 MG/DL 07/26/2015 Unknown [facility] 30765 RCHOL/HDL 1.95 RATIO 07/26/2015 Unknow n [facility] 67575 NON-HDL CH 61 MG/DL 07/26/2015 Unknow n COMPREHENSIVE METABOLIC 63543 AST 25 U/L 2015 Unknown COMPREHENSIVE METABOLIC 44126 ALT 23 IU/L 2015 Unknown COMPREHENSIVE METABOLIC 43023 BUN 18 MG/DL 2015 Unknown COMPREHENSIVE METABOLIC 74873 ALBUMIN 4.6 GM/DL 2015 Unknown COMPREHENSIVE METABOLIC 95330 CHLORIDE 100 MMOL/L 07/26 Unknown COMPREHENSIVE METABOLIC 54489 BILI TOT 0.5 MG/DL 2015 Unknown COMPREHENSIVE METABOLIC 40548 ALK PHOS 49 U/L 2015 Unknown COMPREHENSIVE METABOLIC 99116 SODIUM 137 MMOL/L 07/26 Unknown COMPREHENSIVE METABOLIC 48849 CREATININE 1.06 MG/DL 07/08 Unknown COMPREHENSIVE METABOLIC 91255 CALCIUM 9.5 MG/DL 2015 Unknown COMPREHENSIVE METABOLIC 54526 POTASSIUM 4.5 MMOL/L 07/26 Unknown COMPREHENSIVE METABOLIC 81536 PROT TOT 6.5 GM/DL 2015 Unknown COMPREHENSIVE METABOLIC 53311 Glucose 109 MG/DL 2015 Unknown COMPREHENSIVE METABOLIC 04762 BICARB 29 MMOL/L 2015 Unknown COMPREHENSIVE METABOLIC 83367 ANION GAP 8 MEQ/L 2015 Unknown FREE T4 23520 FREE T4 1.11 NG/DL 07/26/2015 Unknown CULTURE & SENSITIVITY 34264 PROTEIN UR NEG 015 Unknown [facility]ULT[facility] SENSITIVITY 07695 HEMGLBN UR TR 015 Unknown CULTURE & SENSITIVITY 47505 GLUCOSE UR NEG 015 Unknown CULTURE & SENSITIVITY 04764 KETONES UR NEG 015 Unknown CULTURE & SENSITIVITY 12950 PH U 6.5 01/25/20 15 Unknown CULTURE & SENSITIVITY 77566 SP GR U 1.013 01/25/20 15 Unknown CULTURE & SENSITIVITY 09547 BILRUBN UR NEG 015 Unknown CULTURE & SENSITIVITY 48048 LEUKO UR NEG 01/25/20 15 Unknown CULTURE & SENSITIVITY 31181 NITRITE UR NEG 015 Unknown MICR CUL? [id number] SP TO JOHANA? NO 01/24/2015 Unknown MICR CUL? 0678399 APPEAR UR NORMAL 01/24/2015 Unknown MICR CUL? 7766465 RBC/uL 2.2 01/24/2015 Unknown MICR CUL? 8140908 WBC/uL 2.8 01/24/2015 Unknown MICR CUL? 6886564 SQ EPI/uL 1.0 01/24/2015 Unknown MICR CUL? 5505371 HYALCST/uL 0.25 01/24/2015 Unknown MICR CUL? 2685555 WBC /HPF 1 01/24/2015 Unknown MICR CUL? 8848381 RBC /HPF 0 01/24/2015 Unknown GLYCOSYLATED HEMOGLOBIN TEST 04287 A1C HPLC 13663-0 6.6 % 0 01/17/2015 Unknown COMPLETE BLOOD COUNT 3691202 WBC 10.1 10e9/L 015 Unknown COMPLETE BLOOD COUNT 4869484 RBC 4.60 10e12/L 2014 Unknown COMPLETE BLOOD COUNT 0353018 HGB 14.0 g/dL 5 Unknown COMPLETE BLOOD COUNT 1251354 HCT DET 39.9 % 5 Unknown COMPLETE BLOOD COUNT 8678336 MCV 86.7 fL 5 Unknown COMPLETE BLOOD COUNT 9403469 MCH 30.4 pg 5 Unknown COMPLETE BLOOD COUNT 1288169 MCHC 35.1 g/dL 5 Unknown COMPLETE BLOOD COUNT 9034402 PLT 252 10e9/L 01/18/20 15 Unknown COMPLETE BLOOD COUNT 9674237 MPV 11.4 fL 5 Unknown COMPLETE BLOOD COUNT 9083221 SAM % 72.9 % 5 Unknown COMPLETE BLOOD COUNT 1269273 LY % 13.6 % 5 Unknown COMPLETE BLOOD COUNT 8201984 MON % 10.2 % 5 Unknown COMPLETE BLOOD COUNT 9091555 EOS % 3.1 % 5 Unknown COMPLETE BLOOD COUNT 7844844 BASO % 0.2 % 5 Unknown COMPLETE BLOOD COUNT 5718470 RDW 13.6 % 5 Unknown COMPLETE BLOOD COUNT 8357791 ABS SAM 7.36 10e9/L 015 Unknown COMPLETE BLOOD COUNT 4670664 ABS LYMPH 1.37 10e9/L 015 Unknown COMPLETE BLOOD COUNT 0973474 ABS MONO 1.03 10e9/L 015 Unknown COMPLETE BLOOD COUNT 7873419 ABS EOS 0.31 10e9/L 015 Unknown COMPLETE BLOOD COUNT [id number] ABS BASO 0.02 10e9/L 015 Unknown COMPLETE BLOOD COUNT 2252709 RDW-SD 42.4 fL 5 Unknown GFR CALC 1333668 GFR AA 51.0L ML/MIN 01/17/2015 Unknow n GFR CALC 7516864 GFR NON-AA 42.0L ML/MIN 01/17/2015 Unkno wn FREE T4 31096 FREE T4 1.30 NG/DL 01/17/2015 Unknown THYROID STIMULATING HORMONE 23069 TSH 4.029 uIU/ML 01/17/2015 Unknown COMPREHENSIVE METABOLIC 17914 AST 28 U/L 2014 Unknown COMPREHENSIVE METABOLIC 84657 ALT 25 IU/L 2014 Unknown COMPREHENSIVE METABOLIC 56827 BUN 21 MG/DL 2014 Unknown COMPREHENSIVE METABOLIC 85082 ALBUMIN 4.7 GM/DL 2014 Unknown COMPREHENSIVE METABOLIC 28983 CHLORIDE 102 MMOL/L 01/17 Unknown COMPREHENSIVE METABOLIC 73762 BILI TOT 0.6 MG/DL 2014 Unknown COMPREHENSIVE METABOLIC 88707 ALK PHOS 44 U/L 2014 Unknown COMPREHENSIVE METABOLIC 56016 SODIUM 137 MMOL/L 01/17 Unknown COMPREHENSIVE METABOLIC 54547 CREATININE 1.62 MG/DL 01/04 Unknown COMPREHENSIVE METABOLIC 49931 CALCIUM 9.7 MG/DL 2014 Unknown COMPREHENSIVE METABOLIC 84208 POTASSIUM 4.5 MMOL/L 01/17 Unknown COMPREHENSIVE METABOLIC 84406 PROT TOT 6.5 GM/DL 2014 Unknown COMPREHENSIVE METABOLIC 65563 Glucose 136 MG/DL 2014 Unknown COMPREHENSIVE METABOLIC 58043 BICARB 24 MMOL/L 2014 Unknown COMPREHENSIVE METABOLIC 22807 ANION GAP 11 MEQ/L 2014 Unknown VITAMIN B 12 67623 VIT B 12 482 PG/ML 01/17/2015 Unknow n URIC ACID 66614 URIC ACID 8.5 MG/DL 08/09/2014 Unknown COMPREHENSIVE METABOLIC 29639 AST 27 U/L 2014 Unknown COMPREHENSIVE METABOLIC 47251 ALT 26 IU/L 2014 Unknown COMPREHENSIVE METABOLIC 71546 BUN 17 MG/DL 2014 Unknown COMPREHENSIVE METABOLIC 74798 ALBUMIN 5.0 GM/DL 2014 Unknown COMPREHENSIVE METABOLIC 82451 CHLORIDE 101 MMOL/L 08/09 Unknown COMPREHENSIVE METABOLIC 12882 BILI TOT 0.7 MG/DL 2014 Unknown COMPREHENSIVE METABOLIC 38565 ALK PHOS 53 U/L 2014 Unknown COMPREHENSIVE METABOLIC 35353 SODIUM 136 MMOL/L 08/09 Unknown COMPREHENSIVE METABOLIC 99404 CREATININE 1.14 MG/DL 09/2014 Unknown COMPREHENSIVE METABOLIC 33110 CALCIUM 9.8 MG/DL 2014 Unknown COMPREHENSIVE METABOLIC 57973 POTASSIUM 4.1 MMOL/L 08/09 Unknown COMPREHENSIVE METABOLIC 00380 PROT TOT 7.5 GM/DL 2014 Unknown COMPREHENSIVE METABOLIC 12165 Glucose 110 MG/DL 2014 Unknown COMPREHENSIVE METABOLIC 24744 BICARB 30 MMOL/L 2014 Unknown COMPREHENSIVE METABOLIC 66077 ANION GAP 5 MEQ/L 2014 Unknown GFR CALC 9563212 GFR AA >60 ML/MIN 08/09/2014 Unknown GFR CALC 3054992 GFR NON-AA >60 ML/MIN 08/09/2014 Unknown FREE T4 28167 FREE T4 1.14 NG/DL 08/09/2014 Unknown GLYCOSYLATED HEMOGLOBIN TEST 92142 A1C HPLC 35038-9 6.8 % 0 08/09/2014 Unknown COMPLETE BLOOD COUNT [id number] WBC 5.9 10e9/L 08/09/19 15 Unknown COMPLETE BLOOD COUNT [id number] RBC 5.04 10e12/L 2014 Unknown COMPLETE BLOOD COUNT 0337931 HGB 15.2 g/dL 5 Unknown COMPLETE BLOOD COUNT 8467825 HCT DET 44.3 % 5 Unknown COMPLETE BLOOD COUNT 2184461 MCV 87.9 fL 5 Unknown COMPLETE BLOOD COUNT 4207626 MCH 30.2 pg 5 Unknown COMPLETE BLOOD COUNT 3567279 MCHC 34.3 g/dL 5 Unknown COMPLETE BLOOD COUNT 8241922 PLT 262 10e9/L 08/09/19 15 Unknown COMPLETE BLOOD COUNT 2218869 MPV 10.9 fL 5 Unknown COMPLETE BLOOD COUNT 3879336 SAM % 58.7 % 5 Unknown COMPLETE BLOOD COUNT 6431766 LY % 21.5 % 5 Unknown COMPLETE BLOOD COUNT 8569221 MON % 14.0 % 5 Unknown COMPLETE BLOOD COUNT 8287886 EOS % 5.3 % 5 Unknown COMPLETE BLOOD COUNT 9440268 BASO % 0.5 % 5 Unknown COMPLETE BLOOD COUNT 1531830 RDW 13.1 % 5 Unknown COMPLETE BLOOD COUNT 4950337 ABS SAM 3.46 10e9/L 015 Unknown COMPLETE BLOOD COUNT 6056933 ABS LYMPH 1.27 10e9/L 015 Unknown COMPLETE BLOOD COUNT 3533668 ABS MONO 0.83 10e9/L 015 Unknown COMPLETE BLOOD COUNT 3639776 ABS EOS 0.31 10e9/L 015 Unknown COMPLETE BLOOD COUNT 5108071 ABS BASO 0.03 10e9/L 015 Unknown COMPLETE BLOOD COUNT 6995622 RDW-SD 41.2 fL 5 Unknown THYROID STIMULATING HORMONE 02186 TSH 5.395 uIU/ML 08/09/2014 Unknown LIPID GROUP 35986 HDL TEST 52 MG/DL 08/09/2014 Unknown LIP[facility] GROUP 57601 TRIG 113 MG/DL 08/09/2014 Unknown [facility] GROUP 40036 TEST LDL 158 MG/DL 08/09/2014 Unknown L[facility] GROUP 13719 CHOL 233 MG/DL 08/09/2014 Unknown LIPID GROUP 96271 RCHOL/HDL 4.48 RATIO 08/09/2014 Unknow n LIPID GROUP 36998 NON-HDL CH 181 MG/DL 08/09/2014 Unknow n COMPLETE BLOOD COUNT [id number] WBC 6.8 10e9/L 09/09/19 14 Unknown COMPLETE BLOOD COUNT [id number] RBC 5.18 10e12/L 2013 Unknown COMPLETE BLOOD COUNT [id number] HGB 15.2 g/dL 4 Unknown COMPLETE BLOOD COUNT [id number] HCT DET 44.7 % 4 Unknown COMPLETE BLOOD COUNT [id number] MCV 86.3 fL 4 Unknown COMPLETE BLOOD COUNT [id number] MCH 29.3 pg 4 Unknown COMPLETE BLOOD COUNT [id number] MCHC 34.0 g/dL 4 Unknown COMPLETE BLOOD COUNT [id number] PLT 236 10e9/L 09/09/19 14 Unknown COMPLETE BLOOD COUNT [id number] MPV 11.0 fL 4 Unknown COMPLETE BLOOD COUNT [id number] SAM % 58.2 % 4 Unknown COMPLETE BLOOD COUNT [id number] LY % 21.9 % 4 Unknown COMPLETE BLOOD COUNT [id number] MON % 12.5 % 4 Unknown COMPLETE BLOOD COUNT [id number] EOS % 7.3 % 4 Unknown COMPLETE BLOOD COUNT [id number] BASO % 0.1 % 4 Unknown COMPLETE BLOOD COUNT [id number] RDW 13.6 % 4 Unknown COMPLETE BLOOD COUNT [id number] ABS SAM 3.96 10e9/L 014 Unknown COMPLETE BLOOD COUNT [id number] ABS LYMPH 1.49 10e9/L 014 Unknown COMPLETE BLOOD COUNT [id number] ABS MONO 0.85 10e9/L 014 Unknown COMPLETE BLOOD COUNT [id number] ABS EOS 0.50 10e9/L 014 Unknown COMPLETE BLOOD COUNT [id number] ABS BASO 0.01 10e9/L 014 Unknown COMPLETE BLOOD COUNT [id number] RDW-SD 42.3 fL 4 Unknown COMPREHENSIVE METABOLIC 93271 AST 27 U/L 2013 Unknown COMPREHENSIVE METABOLIC 00362 ALT 30 IU/L 2013 Unknown COMPREHENSIVE METABOLIC 18358 BUN 16 MG/DL 2013 Unknown COMPREHENSIVE METABOLIC 77997 ALBUMIN 4.9 GM/DL 2013 Unknown COMPREHENSIVE METABOLIC 60529 CHLORIDE 99 MMOL/L 2013 Unknown COMPREHENSIVE METABOLIC 64785 BILI TOT 0.7 MG/DL 2013 Unknown COMPREHENSIVE METABOLIC 30070 ALK PHOS 53 U/L 2013 Unknown COMPREHENSIVE METABOLIC 89137 SODIUM 137 MMOL/L 09/08 Unknown COMPREHENSIVE METABOLIC 97276 CREATININE 1.01 MG/DL 11/2013 Unknown COMPREHENSIVE METABOLIC 94753 CALCIUM 10.0 MG/DL 09/08 Unknown COMPREHENSIVE METABOLIC 28859 POTASSIUM 4.4 MMOL/L 09/08 Unknown COMPREHENSIVE METABOLIC 81435 PROT TOT 7.1 GM/DL 2013 Unknown COMPREHENSIVE METABOLIC 02501 Glucose 148 MG/DL 2013 Unknown COMPREHENSIVE METABOLIC 09923 BICARB 30 MMOL/L 2013 Unknown COMPREHENSIVE METABOLIC 16735 ANION GAP 8 MEQ/L 2013 Unknown GFR CALC [id number] GFR AA >60 ML/MIN 09/08/2013 Unknown GFR CALC 5199147 GFR NON-AA >60 ML/MIN 09/08/2013 Unknown FREE T4 42516 FREE T4 1.08 NG/DL 09/08/2013 Unknown GLYCOSYLATED HEMOGLOBIN TEST 68471 A1C HPLC 01007-3 7.3 % 0 09/08/2013 Unknown THYROID STIMULATING HORMONE 22469 TSH 5.454 uIU/ML 09/08/2013 Unknown LIPID GROUP 18874 HDL TEST 59 MG/DL 09/08/2013 Unknown LIPID GROUP 99611 TRIG 92 MG/DL 09/08/2013 Unknown LIPID GROUP 35675 TEST LDL 83 MG/DL 09/08/2013 Unknown LIPID GROUP 96692 CHOL 160 MG/DL 09/08/2013 Unknown LIPID GROUP 15972 RCHOL/HDL 2.71 RATIO 09/08/2013 Unknow n VITAMIN B 12 FOLIC ACID 02880|83408 VIT B 12 467 PG/ML 12/2012 Unknown VITAMIN B 12 FOLIC ACID 99954|26046 FOLIC ACID 12.2 NG/ML Unknown VITAMIN B 12 FOLIC ACID 89876|12477 VIT B 12 467 PG/ML 12/2012 Unknown THYROID STIMULATING HORMONE 49901 TSH 4.557 uIU/ML 03/12/2013 Unknown HEMOGLOBIN A1C (GLYCOSYLATED) 4474550 A1C HPLC 91174-4 7.6 % 03/12/2013 Unknown VITAMIN D TOTAL (25 HYDROXY) 17701 VIT D TOTL 17 NG/ML 03/12/2013 Unknown FREE T4 38976 FREE T4 1.07 NG/DL 03/12/2013 Unknown URIC ACID 12480 URIC ACID 5.2 MG/DL 03/12/2013 Unknown Procedures Procedure Codes Date THER/PROPH/DIAG INJ SC/IM CPT-4: 40464 05/13/2019 TRIAMCINOLONE ACET INJ NOS CPT-4: J3301 05/13/2019 DEXAMETHASONE SODIUM PHOS CPT-4: J1100 05/13/2019 THER/PROPH/DIAG INJ SC/IM CPT-4: 19361 02/22/2019 TRIAMCINOLONE ACET INJ NOS CPT-4: J3301 02/22/2019 FLU VACC PRSV FREE INC ANTIG 65 AND OLDER CPT-4: 09177 04/21/2018 ADMIN INFLUENZA VIRUS VAC CPT-4: G0008 04/21/2018 PRESCRIP TRANSMIT VIA ERX SY CPT-4: G8553 04/21/2018 DESTRUCT PREMALG LESION (Cryosurgery) CPT-4: 86766 FLU VACC PRSV FREE INC ANTIG 65 AND OLDER CPT-4: 99731 04/22/2017 ADMIN INFLUENZA VIRUS VAC CPT-4: G0008 04/22/2017 PRESCRIP TRANSMIT VIA ERX SY CPT-4: G8553 10/10/2016 PRESCRIP TRANSMIT VIA ERX SY CPT-4: G8553 08/29/2015 ROUTINE VENIPUNCTURE CPT-4: 50268 07/26/2015 ASSAY OF FREE THYROXINE CPT-4: 89906 07/26/2015 ASSAY THYROID STIM HORMONE CPT-4: 35510 07/26/2015 COMPREHEN METABOLIC PANEL CPT-4: 35643 07/26/2015 COMPLETE CBC W/AUTO DIFF WBC CPT-4: 19978 07/26/2015 LIPID PANEL CPT-4: 72187 07/26/2015 ASSAY OF PSA TOTAL CPT-4: 37352 07/26/2015 A1C HPLC CPT-4: 31008 07/26/2015 ROUTINE VENIPUNCTURE CPT-4: 51049 01/17/2015 ASSAY OF FREE THYROXINE CPT-4: 97592 01/17/2015 ASSAY THYROID STIM HORMONE CPT-4: 91441 01/17/2015 COMPREHEN METABOLIC PANEL CPT-4: 45381 01/17/2015 COMPLETE CBC W/AUTO DIFF WBC CPT-4: 71713 01/17/2015 A1C HPLC CPT-4: 05871 01/17/2015 VITAMIN B-12 CPT-4: 11539 01/17/2015 PPPS, subseq visit CPT-4: G0439 08/04/2014 PRESCRIP TRANSMIT VIA ERX SY CPT-4: G8553 02/18/2014 FLUZONE, 5ML (Medicare) CPT-4: Q2038 07/22/2013 ADMIN INFLUENZA VIRUS VAC CPT-4: G0008 07/22/2013 PRESCRIP TRANSMIT VIA ERX SY CPT-4: G8553 04/28/2013 ROUTINE VENIPUNCTURE CPT-4: 14545 03/12/2013 VITAMIN D TOTAL (25 HYDROXY) CPT-4: 40851 03/12/2013 VITAMIN B 12 FOLIC ACID CPT-4: 56664|30676 03/12/2013 A1C GLYCOSYLATED HEMOGLOBIN TEST CPT-4: 07142 013 ASSAY OF BLOOD/URIC ACID CPT-4: 99137 03/12/2013 ASSAY OF FREE THYROXINE CPT-4: 69246 03/12/2013 ASSAY THYROID STIM HORMONE CPT-4: 36504 03/12/2013 CUR TOBACCO NON-USER CPT-4: G8457 03/11/2013 [...] 1: 156/70 Code: 8480-6 BMI: 35.0 Code: 15874-6 Heart Rate 1: 68 bpm Height: 5'10" Respiratory Rate: 20 bpm SpO2: 95% Tempera ture: 36.5 (C) / 97.7 (F) Weight: 244 lbs 04/21/2018 Blood Pressure 1: 124/80 Code: 8480-6 BMI: 34.4 Code: 68425-6 Heart Rate 1: 80 bpm Height: 5'10" Respiratory Rate: 20 bpm SpO2: 96% Tempera ture: 37.0 (C) / 98.6 (F) Weight: 240 lbs 01/06/2018 Blood Pressure 1: 138/82 Code: 8480-6 BMI: 33.9 Code: 12507-1 Heart Rate 1: 96 bpm Height: 5'10" Respiratory Rate: 24 bpm SpO2: 98% Tempera ture: 35.9 (C) / 96.6 (F) Weight: 236 lbs 10/22/2017 Blood Pressure 1: 144/70 Code: 8480-6 BMI: 34.7 Code: 65212-8 Heart Rate 1: 72 bpm Height: 5'10" Respiratory Rate: 20 bpm SpO2: 96% Tempera ture: 36.9 (C) / 98.4 (F) Weight: 242 lbs 04/22/2017 Blood Pressure 1: 146/82 Code: 8480-6 BMI: 32.9 Code: 91227-9 Heart Rate 1: 104 bpm Height: 5'10" Respiratory Rate: 20 bpm SpO2: 95% Tempera ture: 36.9 (C) / 98.5 (F) Weight: 229 lbs 10/10/2016 Blood Pressure 1: 124/64 Code: 8480-6 BMI: 32.9 Code: 06072-3 Heart Rate 1: 64 bpm Height: 5'10" [...] 1: 146/90 Code: 8480-6 BMI: 34.1 Code: 69138-7 Heart Rate 1: 80 bpm Height: 5'10" Respiratory Rate: 20 bpm Temperature: 36 .8 (C) / 98.2 (F) Weight: 238 lbs 01/17/2015 Blood Pressure 1: 116/60 Code: 8480-6 BMI: 32.7 Code: 38154-8 Heart Rate 1: 84 bpm Height: 5'10" Respiratory Rate: 20 bpm Temperature: 36 .7 (C) / 98.0 (F) Weight: 228 lbs 09/29/2014 Blood Pressure 1: 136/78 Code: 8480-6 BMI: 33.9 Code: 73979-3 Heart Rate 1: 80 bpm Height: 5'10" Respiratory Rate: 20 bpm Temperature: 36 .6 (C) / 97.9 (F) Weight: 236 lbs 08/04/2014 Blood Pressure 1: 132/70 Code: 8480-6 BMI: 32.9 Code: 58916-7 Heart Rate 1: 72 bpm Height: 5'10" Respiratory Rate: 20 bpm Temperature: 36 .7 (C) / 98.0 (F) Weight: 229 lbs 02/18/2014 Blood Pressure 1: 124/82 Code: 8480-6 Heart Rate 1: 82 bpm Respiratory Rate: 18 bpm Temperature: 36.4 (C) / 97.5 (F) Weight: 232 lbs 07/29/2013 Blood Pressure 1: 146/80 Code: 8480-6 BMI: 34.1 Code: 65646-8 Heart Rate 1: 64 bpm Height: 5'10" Respiratory Rate: 20 bpm Temperature: 36 .9 (C) / 98.5 (F) Weight: 238 lbs 05/26/2013 Blood Pressure 1: 142/90 Code: 8480-6 BMI: 34.0 Code: 20706-1 Heart Rate 1: 84 bpm Height: 5'10" Respiratory Rate: 20 bpm Temperature: 36 .7 (C) / 98.0 (F) Weight: 237 lbs 04/28/2013 Blood Pressure 1: 118/78 Code: 8480-6 BMI: 32.9 Code: 17887-3 Heart Rate 1: 74 bpm Height: 5'10" Respiratory Rate: 20 bpm Temperature: 36 .1 (C) / 97.0 (F) Weight: 229 lbs 03/11/2013 Blood Pressure 1: 146/80 Code: 8480-6 BMI: 31.5 Code: 29570-4 Heart Rate 1: 80 bpm Height: 6' [...] Diagnosis: Upper respiratory infection[ICD10: J06.9] Pennie BRADLEY SEdvin ARELYNDER [employer] CPT-4: 39980 06/02/2019 ([id number]) OFFICE/OUTPATIENT VISIT EST Diagnosis: Sinusitis[ICD10: J32.9] Diagnosis: Allergic rhinitis[ICD10: J30.9] Pennie HANLINE SEdvin [facility] [employer] CPT-4: 44871 05/13/2019 ([id number]) OFFICE/OUTPATIENT VISIT EST Diagnosis: Pneumonia[ICD10: J18.9] Pennie Pinondi XIOMARA S. ARELYND ER [employer] CPT-4: 60136 04/26/2019 ([id number]) OFFICE/OUTPATIENT VISIT EST Diagnosis: Acute sinusitis, unspecified[ICD10: J01.90] Pennie Pinondi XIOMARA S. [facility] [employer] CPT-4: 96664 02/22/2019 ([id number]) OFFICE/OUTPATIENT VISIT EST Diagnosis: Cervicalgia[ICD10: M54.2] Xiomara LARA S. ARELY NDER [employer] CPT-4: 61312 11/25/2018 ([id number]) OFFICE/OUTPATIENT VISIT EST Diagnosis: Acute sinusitis, unspecified[ICD10: J01.90] Diagnosis: Myalgia, unspecified site[ICD10: M79.10] Diagnosis: Cervicalgia[ICD10: M54.2] Xiomara MCGEE 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 35136 07/22/2018 ([id number]) OFFICE/OUTPATIENT VISIT EST Diagnosis: Type 2 diabetes mellitus with diabetic neuropathy, unspecified[ICD10: E11.40] Diagnosis: Hyperlipidemia, unspecified[ICD10: E78.5] Diagnosis: Essential (primary) hypertension[ICD10: I10] Diagnosis: Chronic kidney disease, stage 1[ICD10: N18.1] Diagnosis: Benign prostatic hyperplasia with lower urinary tract symptoms[ICD10: N40.1] Diagnosis: FLU VACCINE[ICD10: Z23] [facility]: 56846 04/21/2018 OFFICE/OUTPATIENT VISIT EST Diagnosis: Type 2 diabetes mellitus with hyperglycemia[ICD10: E11.65] Diagnosis: Essential (primary) hypertension[ICD10: I10] Diagnosis: Mixed hyperlipidemia[ICD10: E78.2] Diagnosis: Other fatigue[ICD10: R53.83] [facility]: 76416 01/06/2018 ([id number]) OFFICE/OUTPATIENT VISIT EST Diagnosis: Type 2 diabetes mellitus with diabetic neuropathy, unspecified[ICD10: E11.40] Diagnosis: Essential (primary) hypertension[ICD10: I10] Diagnosis: Pain in right thigh[ICD10: M79.651] Diagnosis: Pain in left leg[ICD10: M79.605] Diagnosis: Localized swelling, mass and lump, left lower limb[ICD10: R22.42] Diagnosis: OSTEOARTHRISIS MULTI SITES[ICD10: M19.90] Diagnosis: FLU VACCINE[ICD10: Z23] Xiomara [facility] CPT-4: 04902 04/22/2017 ([id number]) OFFICE/OUTPATIENT VISIT EST Diagnosis: Essential (primary) hypertension[ICD10: I10] Diagnosis: Type 2 diabetes mellitus with hyperglycemia[ICD10: E11.65] Diagnosis: Angina pectoris, unspecified[ICD10: I20.9] Xiomara [facility]BR[facility] [facility] CPT-4: 12617 10/10/2016 ([id number]) OFFICE/OUTPATIENT VISIT EST Diagnosis: Cough[ICD10: R05] Diagnosis: Wheezing[ICD10: R06.2] Diagnosis: Chronic obstructive pulmonary disease, unspecified[ICD10: J44.9] Shannan [facility] [facility] CPT-4: 77981 08/31/2015 OFFICE/OUTPATIENT VISIT EST Diagnosis: Acute bronchitis, unspecified[ICD10: J20.9] Diagnosis: Wheezing[ICD10: R06.2] Kelsie STOKES [facility] [facility] CPT-4: 02360 08/29/2015 ([id number]) OFFICE/OUTPATIENT VISIT EST Diagnosis: Type 2 diabetes mellitus with diabetic neuropathy, unspecified[ICD10: E11.40] Diagnosis: Hyperlipidemia, unspecified[ICD10: E78.5] Diagnosis: Essential (primary) hypertension[ICD10: I10] Diagnosis: Encounter for general adult medical examination without abnormal findings[ICD10: Z00.00] Xiomara MCBRIDE [facility] [facility] CPT-4: 05741 07/26/2015 OFFICE/OUTPATIENT VISIT EST Diagnosis: Type 2 diabetes mellitus with hyperglycemia[ICD10: E11.65] Diagnosis: Unspecified osteoarthritis, unspecified site[ICD10: M19.90] Diagnosis: Other instability, right knee[ICD10: M25.361] Kelsie BETTENCOURT [facility] [facility] CPT-4: 88830 07/24/2015 ([id number]) OFFICE/OUTPATIENT VISIT EST Diagnosis: Pain in leg, unspecified[ICD10: M79.606] Diagnosis: Type 2 diabetes mellitus with diabetic neuropathy, unspecified[ICD10: E11.40] Xiomara BETTENCOURT [facility] CPT-4: 94888 05/01/2015 ([id number]) OFFICE/OUTPATIENT VISIT EST Diagnosis: MALAISE AND FATIGUE[ICD9: 780.79] Diagnosis: 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, 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] Diagnosis: CAD[ICD9: 414.00] Diagnosis: ANEMIA NOS[ICD9: 285.9] Xiomara MCBRIDE ER [facility] CPT-4: 06477 01/17/2015 ([id number]) OFFICE/OUTPATIENT VISIT EST Diagnosis: Skin lesion[ICD9: 709.9] Xiomara GENAO [facility] CPT-4: 09253 09/29/2014 OFFICE/OUTPATIENT VISIT EST Diagnosis: GASTROENTERITIS[ICD9: 558.9] Diagnosis: GERD[ICD9: 530.81] Kelsie Humera XIOMARA BETTENCOURT [facility] CPT-4: 51061 02/18/2014 ([id number]) OFFICE/OUTPATIENT VISIT EST Diagnosis: 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I, UNCONTROLLED[ICD9: 250.02] Xiomara BETTENCOURT [facility] CPT-4: 32965 07/29/2013 ([id number]) OFFICE/OUTPATIENT VISIT EST Diagnosis: FLU VACCINE[ICD9: V04.81] Xiomara MAGALLON [facility] CPT-4: 48894 07/22/2013 ([id number]) OFFICE/OUTPATIENT VISIT EST Diagnosis: 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I, UNCONTROLLED[ICD9: 250.02] Diagnosis: HYPERTENSION[ICD9: 401.9] Xiomara MAGALLON [facility] CPT-4: 54910 05/26/2013 ([id number]) OFFICE/OUTPATIENT VISIT EST Diagnosis: MONONEURITIS[ICD9: 355.9] Diagnosis: RESTLESS LEGS SYNDROME[ICD9: 333.94] Diagnosis: HYPERTENSION[ICD9: 401.9] Diagnosis: CAD[ICD9: 414.00] Diagnosis: Weakness[ICD9: 780.79] Xiomara LARA Elvia Dolan [employer] CPT-4: 92877 04/28/2013 ([id number]) OFFICE/OUTPATIENT VISIT EST Diagnosis: 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[ICD9: 250.01] Diagnosis: MONONEURITIS[ICD9: 355.9] Diagnosis: HYPERLIPIDEMIA NEC/NOS[ICD9: 272.4] Diagnosis: CAD[ICD9: 414.00] Xiomara Rut BTETENCOURT DO [facility] CPT-4: 27258 03/12/2013 OFFICE/OUTPATIENT VISIT NEW Diagnosis: CAD[ICD9: 414.00] Diagnosis: HYPERLIPIDEMIA NEC/NOS[ICD9: 272.4] Diagnosis: HYPERTENSION[ICD9: 401.9] Diagnosis: Neuropathy[ICD9: 355.9] Diagnosis: RESTLESS LEGS SYNDROME[ICD9: 333.94] Xiomara JACKMAN Elvia [facility]OURT [employer] CPT-4: 77342 03/11/2013 Plan of Care Planned Activity Notes [...] ICD-10 : J06.9 06/02/2019 Appointment: Pennie Pizarro [address] [place], [place] [phone] [place] ACUTE ILLNESS 06/02/2019 Visit Diagnosis Plan: Allergic [...] : J30.9 05/13/2019 Appointment: Pennie Pizarro [address] [place], [place] [phone] [place] ACUTE ILLNESS 05/13/2019 Appointment: Xiomara Bettencourt WPtel: [phone] [facility] [place] CANCELED 04/27/2019 Visit Diagnosis Plan: Pneumonia Discussion: will obtai n records from urgent care. instructed to finish out doxy. no rhonchi or crackles auscultated. symbicort sample given to patient with instructions to use bid. call office later this week with new or worsening symptoms. ICD-9 : 486 ICD-10 : J18.9 04/26/2019 Appointment: Pennie Pizarro [address] [place], [place] [phone] FOLLOW UP 04/26/2019 Visit Diagnosis Plan: Acute [...] ICD-10 : J01.90 02/22/2019 Appointment: Pennie Pizarro [address] [place], [place] [email or web address] ACUTE ILLNESS 02/22/2019 Patient Education: prednisone- [employer] Coupon [phone] [email or web address]/samplemd/resources/getResource/[email or web address] Completed 02/22/2019 Visit Diagnosis Plan: Cervicalgia Discussion: Check Ce rvical Spine X-ray Will likely need PT ICD-9 : 723.1 ICD-10 : M54.2 11/25/2018 Appointment: Xiomara Bettencourt WPtel: [phone] [facility] ACUTE ILLNESS 11/25/2018 Visit Plan: Saline nasal [...] M79.10 11/19/2018 Appointment: [facility]tencourt [phone] [facility] [facility] 11/19/2018 Patient Education: baclofen- [employer] Coupon [phone] [email or web address]://www.[employer]/sampleInnerRewards/resources/getResource/61/[email or web address] Completed 11/19/2018 Visit Diagnosis Plan: Essential (primary) [...] : E10.9 07/22/2018 Appointment: Xiomara Bettencourt [facility]el[phone] [facility] [place] FOLLOW UP 07/22/2018 Visit Diagnosis Plan: Benign prostatic h yperplasia with lower urinary tract symptoms Discussion: Trial of flomax Call in 1 mo [facility] on how doing Follow Up: [...] N18.1 04/21/2018 Appointment: Xiomara Bettencourt [facility]Ptel[facility] [phone] [facility] FOLLOW UP 04/21/2018 Patient Education: Patient Medication [...] ICD-10 : E11.65 01/06/2018 Appointment: [facility]izarro [facility] MEDICATION REVIEW 01/06/2018 Patient Education: Patient Medication Summary Completed 01/06/2018 Appointment: Xiomara Bettencourttel: [facility] [place] NO SHOW 01/05/2018 Appointment: Xiomara Bettencourt WPtel: [phone] [facility] [place] CANCELED 12/31/2017 Visit Diagnosis Plan: Actinic keratosis Discussion: Cr yotherapy as above but will see derm if lesions do not resolve ICD-9 : 702.0 ICD-10 : L57.0 10/22/2017 Appointment: Xiomara Bettencourt WPtel: [phone] [facility] ACUTE ILLNESS 10/22/2017 Patient Education: Patient Medication [...] diabetic neuropathy, unspecified Discussion: Lab discussed [facility] Asked to bring in updated [...] : M19.90 04/22/2017 Appointment: Xiomara Bettencourt WPtel: [address] [place], [place] [address] [place] FOLLOW UP 04/22/2017 Patient Education: Patient Medication Summary Completed 04/22/2017 Patient Education: Patient Medication Summary Completed 04/16/2017 Care Plan: COMPREHEN METABOLIC PANEL SERGEI NC : 45250-4 Pending 04/16/2017 Care Plan: LIPID PANEL LOINC : 86989-8 Pending 04/16/2017 Care Plan: CBC Pending 04/16/2017 Care Plan: A1C HPLC LOINC : 46109-0 Pending 04/16/2017 Referral: Inocencio Goodson WPtel: [phone] [facility] [id number] [place] Referral Appointment Confirmed 10/14/2016 Visit Diagnosis Plan: Angina pectoris, unspecified Dis cussion: Continue imdur and see cardiology To ER if chest pain returns ICD-9 : 413.9 ICD-10 : I20.9 10/10/2016 Visit Diagnosis Plan: Type 2 diabetes mellitus with hy perglycemia Discussion: Continue toujeo Accuchecks BID Follow Up: 4 months ICD-9 : 250.02 ICD-10 : E11.65 10/10/2016 Appointment: Xiomara Bettencourt [facility]Ptel[facility] [phone] [facility] [place] FOLLOW UP 10/10/2016 Patient Education: Patient Medication Summary Completed 10/10/2016 Patient Education: Patient Medication Summary Completed 09/16/2016 Care Plan: COMPREHEN METABOLIC PANEL SERGEI NC : 91054-0 Pending 09/16/2016 Care Plan: ASSAY THYROID STIM HORMONE Pen ding 09/16/2016 Care Plan: ASSAY OF FREE THYROXINE Pendin g 09/16/2016 Care Plan: LIPID PANEL LOINC : 25915-9 Pending 09/16/2016 Care Plan: CBC Pending 09/16/2016 Care Plan: A1C HPLC LOINC : 88536-4 Pending 09/16/2016 Visit Plan: CXR now to [...] CXR results 08/31/2015 Appointment: Shannan Grimes [address] [place], [place] [phone] 08/31 confirmed- SP ACUTE ILLNESS 08/31/2015 Patient Education: Patient Medication Summary Completed 08/31/2015 Visit Plan: Albuterol INH via SVN every 4 hours Prednisone 20 mg PO BID Notify for worsening symptoms 08/29/2015 Appointment: Kelsie Grubbs WPtel: [address] [place], [place] [phone] ACUTE ILLNESS 08/29/2015 Patient Education: Patient Medication Summary Completed 08/29/2015 Appointment: Xiomara Bettencourt WPtel: [address] [place], [place] [phone] LAB 07/26/2015 Patient Education: Patient Medication Summary Completed 07/26/2015 Visit Plan: Return in am for fasting lab s - CBC, CMP, TSH, Free T4, HgbA1C Change Levemir to Toujeo - Continue 35 Units q am - sample given Start physical Therapy for increased quadriceps strengthening and decreased pain in knees, bilaterally. 07/24/2015 Appointment: Kelsie Grubbs WPtel: [address] [place], [place] [phone] 07/21 appt confirmed cn FOLLOW UP 07/24/19 Appointment: Kelsie Grubbs WPtel: [address] [place], [place] [phone] FOLLOW UP 07/24/2015 Patient Education: Patient Medication [...] with insulin 05/01/2015 Appointment: Xiomara Bettencourt WPtel: [address] [place], [place] [phone] 04/28 confirmed~sl ACUTE ILLNESS 05/01/2015 Patient Education: Patient Medication Summary Completed 05/01/2015 Patient Education: Patient Medication Summary Completed 01/19/2015 Care Plan: URINALYSIS AUTO W/O SCOPE SERGEI NC : 21153-5 Pending 01/19/2015 Visit Plan: I have went through his medi cations in past and stopped meds but he adjusts his meds on his own and has restarted some Stop Amaryl Once again discussed not using indomethacin routinely due to taking plavix and aspirin daily and correction use is dangerous Check CBC, CMP, TSH, free T4, B12 and HbA1C Patient has seen Cardiology recently but no cardiac cath done--had chemical stress test 01/17/2015 Appointment: Xiomara Bettencourt WPtel: [address] [place] [address] 01/16 [facility] ACUTE ILLNESS 01/17/2015 Patient Education: Patient Medication Summary Completed 01/17/2015 Visit Plan: See Dr. Garvin for removal 09/29/2014 Appointment: Xiomara Bettencourt WPtel: [address] [place] [address] ACUTE ILLNESS 09/29/2014 Referral: Colt Garvin WPtel: [address] Referral Initiated 09/29/2014 Patient Education: Patient Medication Summary Completed 09/29/2014 Visit Plan: Check CBC, CMP, TSH, free T4 , HbA1C, Lipids Accuchecks daily alternating times Patient has been adjusting own meds and has not taken any cholesterol meds for sometime Will check into surgery on right knee at [facility] Check carotid dopplers 08/04/2014 Appointment: Xiomara Bettencourt WPtel: [address] [place] [address] Annual Well Visit 08/04/2014 Patient Education: Patient Medication Summary Completed 08/04/2014 Appointment: Kelsie Grubbs WPtel: [address] [place] [phone] ACUTE ILLNESS 02/18/2014 Patient Education: Patient Medication Summary Completed 02/18/2014 Patient Education: [facility] - Saving AutoInj - 18+ - Dynamic Portal ID Completed 02/18/2014 Appointment: Xiomara Bettencourt WPtel: [address] [place] [phone] [place] LAB 09/08/2013 Visit Plan: Check fasting lab in 1mo Con tinue Lantus and accuchecks at least BID 07/29/2013 Appointment: Xiomara Bettencourt WPtel: [address] [place], [place] [phone] [place] FOLLOW UP 07/29/2013 Patient Education: Patient Medication Summary Completed 07/29/2013 Appointment: Xiomara Bettencourt WPtel: [address] [place], [place] [phone] [place] INJECTION 07/22/2013 Patient Education: Patient Medication Summary Completed 07/22/2013 Visit Plan: Pt has been self-adjusting m eds Stop metformin and amaryl Use Levemir 25u sc BID and call in 1wk with BS readings 05/26/2013 Appointment: Xiomara Bettencourt WPtel: [address] [place], [place] [phone] FOLLOW UP 05/26/2013 Patient Education: Patient Medication Summary Completed 05/26/2013 Visit Plan: DC Metformin Increase Lantus to 30u sc daily Change lisinopril to lisinopril HCT 20/25mg q AM Continue Gabapentin at current dose 04/28/2013 Appointment: Xiomara Bettencourt WPtel: [address] [place], [place] [phone] FOLLOW UP 04/28/2013 Patient Education: Patient Medication Summary Completed 04/28/2013 Appointment: Xiomara Bettencourt WPtel: [address] [place], [place] [phone] [place] LAB 03/12/2013 Patient Education: Patient Medication Summary Completed 03/12/2013 Visit Plan: Trial of neurontin 400mg q H S Obtain most recent lab results Change levemir to lantus per pt request Pt goes for sleep study tonite 03/11/2013 Appointment: Xiomara Bettencourt WPtel: [address] [place], [place] [phone] 02/01paperwork mailed 03/10 confirmed with spouse NEW PATIENT 11/2012 Patient Education: Patient Medication Summary Completed 03/11/2013 Instructions Comment . Saline nasal flushes prn. Tylenol/Motr in prn headache. Notify if persists/symptoms worsening. . 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 Check fasting [...]
--- OUTSIDE RECORDS SUMMARY | 2020-02-02 21:46 | XMS REPORT | CCD ---
Author Author Sheng Bettencourt D.O. Organization [facility] DelphineEdvin BETTENCOURT DO [facility] Address [address] [place] [address] Phone Care Team Providers Care Bottom Buffer Name Role Phone PP Unavailable CCM Unavailable Summary Purpose Interface Exchange Insurance Providers Payer name Policy type / Coverage type Covered green party ID Effective Begin Date Effective End Date WPS MEDICARE PART B [place] Medicare Part B [id number] 2018 Unknown [facility] Medicare Part B [id number] 2018 Un known Family history Mother Diagnosis Age At Onset Diabetes mellitus Type 2 Unknown Hypercholesterolemia Unknown Father Diagnosis Age At Onset No Family Disease Entered N/A Social History Social History Element Codes Description Effective Dates Marital status Unknown 03/11/2013 Number of children Unknown 4 03/11/2013 Employment Unknown Retired 03/11/[address]: 1094402 Former smoker 03/11/[address]: 612794 Currently drinks alc ohol Socially 03/11/2013 Has [...] Start Date Stop Date Status Fill Instructions gabapentin 400 mg capsule RxNorm: 638748 TAKE ONE CAPSU LE BY MOUTH EVERY EVENING 08/02/2019 No Stop Date Active simvastatin 20 mg tablet RxNorm: 618875 1 Tablet(s) Ora l QD Needs updated fasting labs 07/21/2019 08/19/2019 Active Needs updated fa sting labs before 90 day refill simvastatin 20 mg tablet RxNorm: 241349 1 Tablet(s) Ora l QD Needs updated fasting labs 06/23/2019 07/20/2019 Inactive Needs updated fa sting labs before 90 day refill Flomax 0.4 mg capsule RxNorm: 035400 1 Capsule(s) Oral QD 9 No Stop Date Active Flomax 0.4 mg capsule RxNorm: 310749 TAKE TWO CAPSULES BY MOUTH EVERY EVENING 03/19/2019 05/12/2019 Inactive Augmentin 500 mg-125 mg tablet RxNorm: 975280 1 Tablet(s) PO BID 03/03/2019 Inactive baclofen 10 mg tablet RxNorm: 972327 TAKE ONE TABLET BY MOUTH EVERY NIGHT AT BEDTIME FOR PAIN OR SPASMS 01/14/2019 05/12/2019 Inactive Flomax 0.4 mg capsule RxNorm: 765218 TAKE TWO CAPSULES BY MOUTH EVERY EVENING 01/12/2019 03/18/2019 Inactive gabapentin 400 mg capsule RxNorm: 414039 1 Capsule(s) PO QPM 201806/27/2019 Inactive baclofen 10 mg tablet RxNorm: 770932 1 Tablet(s) PO QHS for my n/spasm 12/15/2018 01/13/2019 Inactive simvastatin 20 mg tablet RxNorm: 989374 TAKE ONE TABLET BY MOUT H DAILY 12/11/2018 06/22/2019 Inactive OneTouch Ultra Blue Test Strip RxNorm: Use 1 rigoberto t strip three times daily to check blood sugar (Dx:E11.65) 12/07/2018 No Stop Date Active gabapentin 400 mg capsule RxNorm: 406668 TAKE ONE CAPSU LE BY MOUTH EVERY EVENING 12/04/2018 12/29/2018 Inactive baclofen 10 mg tablet RxNorm: 769291 1 Tablet(s) PO QHS for my n/spasm 11/19/2018 12/15/2018 Inactive Flomax 0.4 mg capsule RxNorm: 890449 2 Capsule(s) PO QPM 09/15/2018 0 12/13/2018 Inactive WOULD LIKE 90DS!!! gabapentin 400 mg capsule RxNorm: 150372 TAKE ONE CAPSU LE BY MOUTH EVERY EVENING 07/21/2018 10/18/2018 Inactive simvastatin 20 mg tablet RxNorm: 730888 1 Tablet(s) PO QD 06/15/2018 12/10/2018 Inactive Flomax 0.4 mg capsule RxNorm: 504133 TAKE TWO CAPSULES BY MOUTH EVERY EVENING 06/02/2018 09/15/2018 Inactive WOULD LIKE 90DS!!! Flomax 0.4 mg capsule RxNorm: 986780 2 Capsule(s) PO QPM 04/21/2018 1 07/20/2017 Inactive simvastatin 20 mg tablet RxNorm: 069414 1 Tablet(s) PO QD Take 1 tablet by mouth daily. Patient due for labwork before further refill. 04/06/20182017 Inactive simvastatin 20 mg tablet RxNorm: 807640 Tablet(s) TAKE ONE TABLET BY MOUTH DAILY 03/25/2018 06/15/2018 Inactive simvastatin 20 mg tablet RxNorm: 464200 Tablet(s) TAKE ONE TABLET BY MOUTH DAILY due for appt 12/29/2017 03/25/2018 Inactive simvastatin 20 mg tablet RxNorm: 819466 TAKE ONE TABLET BY MOUT H DAILY 09/03/2017 12/29/2017 Inactive simvastatin 20 mg tablet RxNorm: 309006 1 Tablet(s) PO QD 10/22/2016 11/18/2018 Inactive isosorbide mononitrate ER 60 mg tablet,extended release 24 h r RxNorm: 087304 1 Tablet(s) PO QD 10/22/2016 04/21/2017 Inactive isosorbide mononitrate ER 60 mg tablet,extended release 24 h r RxNorm: 795437 1 Tablet(s) PO QD 10/10/2016 10/21/2016 Inactive simvastatin 20 mg tablet RxNorm: 970001 1 Tablet(s) PO QD 10/10/2016 10/21/2016 Inactive gabapentin 400 mg capsule RxNorm: 187332 1 Capsule(s) PO QPM 201609/20/2016 Inactive Toujeo SoloStar 300 unit/mL (1.5 mL) subcutaneous insulin pe n RxNorm: 7350658 35 Unit(s) SQ QAM 07/23/2016 07/22/2016 Inactive Toujeo SoloStar 300 unit/mL (1.5 mL) subcutaneous insulin pe n RxNorm: 2125028 40 Unit(s) SQ QAM 09/01/2015 No Stop Date Active Symbicort 160 mcg-4.5 mcg/actuation HFA aerosol inhaler RxNo rm: 0590417 2 Puff(s) INH BID 08/31/2015 09/09/2015 Inactive prednisone 20 mg tablet RxNorm: 436926 1 Tablet(s) PO BID 08/29/2015 09/02/2015 Inactive albuterol sulfate 2.5 mg/3 mL (0.083 %) solution for n ebulization RxNorm: 217596 1 Unit(s) INH Q4H as needed 08/29/2015 10/09/2016 Inactive levothyroxine 75 mcg tablet RxNorm: 866419 1 Tablet(s) PO QD 201507/27/2015 Inactive levothyroxine 75 mcg tablet RxNorm: 721405 1 Tablet(s) PO QD 201511/18/2018 Inactive levothyroxine 75 mcg tablet RxNorm: 123279 1 Tablet(s) PO QD 201507/27/2015 Inactive lisinopril 20 mg-hydrochlorothiazide 25 mg tablet RxNorm: 19 7887 TAKE ONE TABLET BY MOUTH EVERY MORNING. REPLACES PLAIN LISINOPRIL 03/06/2015 04/21/2017 Inactive lisinopril 20 mg-hydrochlorothiazide 25 mg tablet RxNorm: 19 7887 TAKE ONE TABLET BY MOUTH EVERY MORNING. REPLACES PLAIN LISINOPRIL 09/08/2014 03/05/2015 Inactive allopurinol 100 mg tablet RxNorm: 145917 1 Tablet(s) PO BID 015 10/09/2016 Inactive [SAVINGS FOR NON-COVERED YULIA GS -- BIN:[id number], PCN: [id number], Group: [id number], ID# [id number], Questions: . THIS IS NOT INSURANCE.] levothyroxine 50 mcg tablet RxNorm: 959345 1 Tablet(s) PO QD 201407/26/2015 Inactive [AttnRPh: Saving apply/adjud icate RxGRP:SG20 RxBIN:[id number] RxPCN:HT ID#:[id number]] Zegerid 40 mg-1.1 gram capsule RxNorm: 783807 1 Capsule(s) PO QD 03/03/2014 Inactive [AttnRPh: Saving apply/adjud icate RxGRP:SG20 RxBIN:[id number] RxPCN:HT ID#:[id number]] ondansetron 8 mg disintegrating tablet RxNorm: 206235 1 Tablet(s) PO Q8H as needed for [...] 07/28/2013 Inactive gabapentin 400 mg capsule RxNorm: 384907 1 Capsule(s) PO QPM 201207/28/2013 Inactive gabapentin 400 mg capsule RxNorm: 334439 1 Capsule(s) PO QPM 201206/26/2013 Inactive lisinopril 20 mg-hydrochlorothiazide 25 mg tablet RxNorm: 82 3971 1 Tablet(s) PO QAM replaces plain lisinopril 04/28/2013 07/29/2013 Inactive gabapentin 400 mg capsule RxNorm: 884562 1 Capsule(s) PO QPM 201204/27/2013 Inactive gabapentin 400 mg capsule RxNorm: 762716 1 Capsule(s) PO QPM 201203/10/2013 Inactive gabapentin 400 mg capsule RxNorm: 565973 1 Capsule(s) PO QPM 201203/14/2013 Inactive Lantus Solostar 100 unit/mL (3 mL) Sub-Q Insulin Pen RxNorm: 443006 20 Unit(s) SQ QPM 03/11/2013 03/15/2013 Inactive Toujeo SoloStar 300 unit/mL (1.5 mL) subcutaneous insulin pe n RxNorm: 1073651 35 Unit(s) SQ QAM No Start Date Active omeprazole 20 mg capsule,delayed release RxNorm: 114112 1 Capsu le(s) PO QD No Start Date Active isosorbide mononitrate ER 60 mg tablet,extended release 24 h r RxNorm: 768058 1 Tablet(s) PO QD No Start Date Active lisinopril 20 mg tablet RxNorm: 671544 1 Tablet(s) PO QD No Start Date Active Chlortab-4 oral RxNorm: 400389 oral No Start Date Activ e Eliquis 5 mg tablet RxNorm: 3268858 1 Tablet(s) PO BID No Start Date Active oxymetazoline-menthol 0.05 % nasal spray RxNorm: 4183447 [place] COTY No Start Date Active Patient states he ta kes every 10 hours metformin 500 mg tablet RxNorm: 445572 1 Tablet(s) PO BID No Start Da te Active levothyroxine 50 mcg tablet RxNorm: 449065 1 Tablet(s) PO QD No Start Date Active Plavix 75 mg tablet RxNorm: 601794 1 Tablet(s) PO QD No Start Date Active Norvasc 10 mg tablet RxNorm: 930189 1 Tablet(s) PO QHS No Start Date Active Zantac 150 mg tablet RxNorm: 659300 1 Tablet(s) PO QHS No Start Date Active Toujeo SoloStar 300 unit/mL (1.5 mL) subcutaneous insulin pe n RxNorm: 1932829 30 Unit(s) SQ QAM No Start Date Active glimepiride 4 mg tablet RxNorm: 267294 1 Tablet(s) PO QHS No Start Date 07/26/2015 Inactive allopurinol 100 mg tablet RxNorm: 267599 1 Tablet(s) PO BID No Star t Date 08/10/2014 Inactive Lantus Solostar 100 unit/mL (3 mL) subcutaneous insulin pen RxNorm: 032896 30 Unit(s) SQ QD No Start Date 08/03/2014 Inactive Levemir FlexTouch 100 unit/mL (3 mL) subcutaneous insulin pe n RxNorm: 969483 25 Unit(s) SQ QAM No Start Date 07/23/2015 Inactive Lantus 100 unit/mL Sub-Q RxNorm: 952544 30 Unit(s) SQ QHS No Start Date 05/25/2013 Inactive Lantus Solostar 100 unit/mL (3 mL) Sub-Q Insulin Pen RxNorm: 165404 20 Unit(s) SQ QPM No Start Date 03/10/2013 Inactive OneTouch Ultra Blue Test Strip RxNorm: Use 1 rigoberto t strip three times daily to check blood sugar (Dx:E11.65) No Start Date 12/06/2018 Inactive Levemir FlexTouch 100 unit/mL (3 mL) subcutaneous insulin pe n RxNorm: 277335 30- 35 Unit(s) SQ QAM No Start Date 07/23/2015 Inactive Levemir Flexpen 100 unit/mL (3 mL) solution subcutaneo us insulin pen RxNorm: 715222 20-25 Unit(s) SQ QD No Start Date 07/28/2013 Inactive indomethacin ER 75 mg capsule,extended release RxNorm: 98075 2 1 Capsule(s) PO QAM No Start Date 04/27/2013 Inactive indomethacin ER 75 mg capsule,extended release RxNorm: 44990 2 1 Capsule(s) PO QD No Start Date 01/16/2015 Inactive Vitamin D3 5,000 unit tablet RxNorm: 574235 1 Tablet(s) PO QD No St art Date 08/03/2014 Inactive Levemir Flexpen 100 unit/mL (3 mL) solution subcutaneo us insulin Pen RxNorm: 904627 20 Unit(s) SQ QHS No Start Date 03/10/2013 Inactive Vytorin 10 mg-40 mg tablet RxNorm: 2972904 1/2 Tablet(s) PO QD No S tart Date 04/20/2018 Inactive Touanneo SoloStar 300 unit/mL (1.5 mL) subcutaneous insulin pe n RxNorm: 1679565 35 Unit(s) SQ QAM No Start Date 07/22/2016 Inactive Lantus Solostar 100 unit/mL (3 mL) subcutaneous insulin pen RxNorm: 569999 20 Unit(s) SQ QD No Start Date 08/03/2014 Inactive aspirin 81 mg tablet RxNorm: 633463 1 Tablet(s) PO QD No Start Date 0 08/03/2014 Inactive metformin 500 mg tablet RxNorm: 196682 1 Tablet(s) PO BID No Start Date 07/28/2013 Inactive glimepiride 4 mg tablet RxNorm: 652589 1 Tablet(s) PO BID No Start Date 01/16/2015 Inactive glimepiride 4 mg tablet RxNorm: 417580 1 Tablet(s) PO QD No Start D ate 08/03/2014 Inactive levothyroxine 25 mcg tablet RxNorm: 699682 1 Tablet(s) PO QD No Sta rt Date 08/10/2014 Inactive doxycycline oral RxNorm: 85836 oral No Start Date 05/12/2019 Inac tive aspirin 81 mg tablet RxNorm: 280621 1 Tablet(s) PO QD No Start Date 0 07/21/2018 Inactive isosorbide mononitrate ER 60 mg tablet,extended release 24 h r RxNorm: 939609 1 Tablet(s) PO BID No Start Date 01/16/2015 Inactive metformin 500 mg tablet RxNorm: 269697 1 Tablet(s) PO BID No Start Date 04/27/2013 Inactive glimepiride 4 mg tablet RxNorm: 632724 1 Tablet(s) PO QPM No Start Date 02/21/2019 Inactive Vytorin 10-40 10 mg-40 mg tablet RxNorm: 1950221 1 Tablet(s) PO QHS No Start Date 08/03/2014 Inactive indomethacin 50 mg capsule RxNorm: 735044 1 Capsule(s) PO QHS No St art Date 01/16/2015 Inactive glimepiride 4 mg tablet RxNorm: 321138 1 Tablet(s) PO BID No Start Date 07/28/2013 Inactive Levemir FlexTouch 100 unit/mL (3 mL) subcutaneous insulin pe n RxNorm: 254550 20 Unit(s) SQ QD No Start Date 04/30/2015 Inactive lisinopril 20 mg tablet RxNorm: 923688 1 Tablet(s) PO BID No Start Date 04/27/2013 Inactive [place] Stubbsostar SubQ RxNorm: Subcutaneous No Start Date 03/15/2013 I nactive allopurinol 300 mg tablet RxNorm: 649772 1 Tablet(s) PO QD No Start Date 08/03/2014 Inactive Fish Oil 1,000 mg capsule RxNorm: 1 Capsule(s) PO QD No Start Date 02/21/2019 Inactive indomethacin 50 mg capsule RxNorm: 881608 1 Capsule(s) PO BID No St art Date 04/20/2018 Inactive levothyroxine 50 mcg tablet RxNorm: 534302 1 Tablet(s) PO QD No Sta rt Date 08/10/2014 Inactive glimepiride 4 mg tablet RxNorm: 670289 1 Tablet(s) PO BID No Start Date 03/15/2013 Inactive indomethacin 50 mg capsule RxNorm: 128760 1 Capsule(s) PO QHS No St art Date 04/27/2013 Inactive Medication Administered No Medication Administered data Immunizations Vaccine Codes Date Status Influenza CVX: 135 04/21/2018 Complete Influenza CVX: 135 04/22/2017 Complete Results Observation Observation Code Item Item Code Result Date S ervice Location [facility] 18029 Cholesterol 209 mg/dL 09/17/2016 Unkno wn [facility] 71193 Triglyceride 111 mg/dL 09/17/2016 Unkn own [facility] 81327 HDL CHOLESTEROL 50 mg/dL 09/17/2016 U nknown [facility] 57847 Chol/HDL Ratio 4.18 ratio 09/17/2016 U nknown [facility] 68174 NON-HDL Chol 159 mg/dL 09/17/2016 Unkn own [facility] 85634 LDL Cholesterol 137 mg/dL 09/17/2016 U nknown MEAN GLUC 2964450 Calc Mean Gluc 151 mg/dL 09/17/2016 Unkn own COMPREHENSIVE METABOLIC 16834 AST 23 U/L 2016 Unknown COMPREHENSIVE METABOLIC 47729 ALT 19 U/L 2016 Unknown COMPREHENS[facility] MET[facility]OLIC 40742 BUN 15 mg/dL 2016 Unknown COMPREHENS[facility] MET[facility]OLIC 89164 ALBUMIN 4.3 g/dL 2016 Unknown COMPREHENSIVE METABOLIC 85386 CHLORIDE 103 mmol/L 09/17 Unknown COMPREHENSIVE METABOLIC 84755 Bili Total 0.6 mg/dL 09/17 Unknown COMPREHENSIVE METABOLIC 98941 ALK PHOS 60 U/L 2016 Unknown COMPREHENSIVE METABOLIC 32566 SODIUM 140 mmol/L 09/17 Unknown COMPREHENSIVE METABOLIC 11795 CREATININE 1.03 mg/dL 09/04 Unknown COMPREHENSIVE METABOLIC 00131 CALCIUM 9.5 mg/dL 2016 Unknown COMPREHENSIVE METABOLIC 27647 POTASSIUM 3.9 mmol/L 09/17 Unknown COMPREHENSIVE METABOLIC 97747 Total Protein 6.9 g/dL Unknown COMPREHENSIVE METABOLIC 25217 Glucose 94 mg/dL 2016 Unknown COMPREHENSIVE METABOLIC 58398 Bicarbonate 28 mmol/L 09/04 Unknown COMPREHENSIVE METABOLIC 17724 AGAP 9 mmol/L 2016 Unknown GFR CALC 3033412 GFR Non Afr Amr >60 mL/min 09/17/2016 Un known GFR CALC 2871052 GFR Afr Amr >60 mL/min 09/17/2016 Unknow n THYROID STIMULATING HORMONE 97681 TSH 4.260 uIU/mL 09/17/2016 Unknown GLYCOSYLATED HEMOGLOBIN TEST 77022 Hgb A1c 47771-5 6.9 % 0 09/17/2016 Unknown FREE T4 31189 T4 Free 1.02 ng/dL 09/17/2016 Unknown COMPLETE BLOOD COUNT 8034871 WBC 8.6 10e9/L 07/26/19 16 Unknown COMPLETE BLOOD COUNT [id number] RBC 4.86 10e12/L 2015 Unknown COMPLETE BLOOD COUNT 5380713 HGB 14.6 g/dL 6 Unknown COMPLETE BLOOD COUNT 1996391 HCT DET 43.1 % 6 Unknown COMPLETE BLOOD COUNT 9458291 MCV 88.7 fL 6 Unknown COMPLETE BLOOD COUNT 1101346 MCH 30.0 pg 6 Unknown COMPLETE BLOOD COUNT 8805637 MCHC 33.9 g/dL 6 Unknown COMPLETE BLOOD COUNT 3827335 PLT 267 10e9/L 07/26/19 16 Unknown COMPLETE BLOOD COUNT 6640229 MPV 11.5 fL 6 Unknown COMPLETE BLOOD COUNT 8469261 SAM % 64.8 % 6 Unknown COMPLETE BLOOD COUNT 3395622 LY % 16.8 % 6 Unknown COMPLETE BLOOD COUNT 8687426 MON % 12.5 % 6 Unknown COMPLETE BLOOD COUNT [id number] EOS % 5.6 % 6 Unknown COMPLETE BLOOD COUNT 7031946 BASO % 0.3 % 6 Unknown COMPLETE BLOOD COUNT 4897506 RDW 13.4 % 6 Unknown COMPLETE BLOOD COUNT [id number] ABS SAM 5.57 10e9/L 016 Unknown COMPLETE BLOOD COUNT [id number] ABS LYMPH 1.44 10e9/L 016 Unknown COMPLETE BLOOD COUNT [id number] ABS MONO 1.08 10e9/L 016 Unknown COMPLETE BLOOD COUNT 3586916 ABS EOS 0.48 10e9/L 016 Unknown COMPLETE BLOOD COUNT [id number] ABS BASO 0.03 10e9/L 016 Unknown COMPLETE BLOOD COUNT 3768804 RDW-SD 42.9 fL 6 Unknown PSA EQUIMOLAR MATT 88448 PSA EQ 0.78 NG/ML 6 Unknown THYROID STIMULATING HORMONE 44061 TSH 5.292 uIU/ML 07/26/2015 Unknown GLYCOSYLATED HEMOGLOBIN TEST 73039 A1C HPLC 88115-2 7.0 % 0 07/26/2015 Unknown GFR CALC 4265570 GFR AA >60 ML/MIN 07/26/2015 Unknown GFR CALC 0315776 GFR NON-AA >60 ML/MIN 07/26/2015 Unknown [facility] 93516 HDL TEST 64 MG/DL 07/26/2015 Unknown [facility] 62579 TRIG 58 MG/DL 07/26/2015 Unknown [facility] 84948 TEST LDL 49 MG/DL 07/26/2015 Unknown [facility] 68774 CHOL 125 MG/DL 07/26/2015 Unknown [facility] 89163 RCHOL/HDL 1.95 RATIO 07/26/2015 Unknow n [facility] 13182 NON-HDL CH 61 MG/DL 07/26/2015 Unknow n COMPREHENSIVE METABOLIC 77683 AST 25 U/L 2015 Unknown COMPREHENSIVE METABOLIC 02518 ALT 23 IU/L 2015 Unknown COMPREHENSIVE METABOLIC 28438 BUN 18 MG/DL 2015 Unknown COMPREHENSIVE METABOLIC 70547 ALBUMIN 4.6 GM/DL 2015 Unknown COMPREHENSIVE METABOLIC 91803 CHLORIDE 100 MMOL/L 07/26 Unknown COMPREHENSIVE METABOLIC 04507 BILI TOT 0.5 MG/DL 2015 Unknown COMPREHENSIVE METABOLIC 06209 ALK PHOS 49 U/L 2015 Unknown COMPREHENSIVE METABOLIC 00115 SODIUM 137 MMOL/L 07/26 Unknown COMPREHENSIVE METABOLIC 15979 CREATININE 1.06 MG/DL 07/08 Unknown COMPREHENSIVE METABOLIC 06588 CALCIUM 9.5 MG/DL 2015 Unknown COMPREHENSIVE METABOLIC 33943 POTASSIUM 4.5 MMOL/L 07/26 Unknown COMPREHENSIVE METABOLIC 39528 PROT TOT 6.5 GM/DL 2015 Unknown COMPREHENSIVE METABOLIC 53843 Glucose 109 MG/DL 2015 Unknown COMPREHENSIVE METABOLIC 70387 BICARB 29 MMOL/L 2015 Unknown COMPREHENSIVE METABOLIC 05518 ANION GAP 8 MEQ/L 2015 Unknown FREE T4 23293 FREE T4 1.11 NG/DL 07/26/2015 Unknown CULTURE & SENSITIVITY 95973 PROTEIN UR NEG 015 Unknown CULTURE & SENSITIVITY 53925 HEMGLBN UR TR 015 Unknown CULTURE & SENSITIVITY 66066 GLUCOSE UR NEG 015 Unknown CULTURE & SENSITIVITY 01790 KETONES UR NEG 015 Unknown CULTURE & SENSITIVITY 14419 PH U 6.5 01/25/20 15 Unknown CULTURE & SENSITIVITY 55203 SP GR U 1.013 01/25/20 15 Unknown CULTURE & SENSITIVITY 17765 BILRUBN UR NEG 015 Unknown CULTURE & SENSITIVITY 80729 LEUKO UR NEG 01/25/20 15 Unknown CULTURE & SENSITIVITY 70364 NITRITE UR NEG 015 Unknown MICR CUL? [id number] SP TO JOHANA? NO 01/24/2015 Unknown MICR CUL? 0407182 APPEAR UR NORMAL 01/24/2015 Unknown MICR CUL? 6590924 RBC/uL 2.2 01/24/2015 Unknown MICR CUL? 8227869 WBC/uL 2.8 01/24/2015 Unknown MICR CUL? 8036758 SQ EPI/uL 1.0 01/24/2015 Unknown MICR CUL? 6942965 HYALCST/uL 0.25 01/24/2015 Unknown MICR CUL? 8172202 WBC /HPF 1 01/24/2015 Unknown MICR CUL? 1470055 RBC /HPF 0 01/24/2015 Unknown GLYCOSYLATED HEMOGLOBIN TEST 89923 A1C HPLC 85430-8 6.6 % 0 01/17/2015 Unknown COMPLETE BLOOD COUNT 1313841 WBC 10.1 10e9/L 015 Unknown COMPLETE BLOOD COUNT [id number] RBC 4.60 10e12/L 2014 Unknown COMPLETE BLOOD COUNT 0337069 HGB 14.0 g/dL 5 Unknown COMPLETE BLOOD COUNT 7748420 HCT DET 39.9 % 5 Unknown COMPLETE BLOOD COUNT 8106366 MCV 86.7 fL 5 Unknown COMPLETE BLOOD COUNT 6170763 MCH 30.4 pg 5 Unknown COMPLETE BLOOD COUNT 8004697 MCHC 35.1 g/dL 5 Unknown COMPLETE BLOOD COUNT 8274921 PLT 252 10e9/L 01/18/20 15 Unknown COMPLETE BLOOD COUNT 6997763 MPV 11.4 fL 5 Unknown COMPLETE BLOOD COUNT 1334950 SAM % 72.9 % 5 Unknown COMPLETE BLOOD COUNT 6812639 LY % 13.6 % 5 Unknown COMPLETE BLOOD COUNT 3823976 MON % 10.2 % 5 Unknown COMPLETE BLOOD COUNT 7739784 EOS % 3.1 % 5 Unknown COMPLETE BLOOD COUNT 1808264 BASO % 0.2 % 5 Unknown COMPLETE BLOOD COUNT 6463467 RDW 13.6 % 5 Unknown COMPLETE BLOOD COUNT 1363643 ABS SAM 7.36 10e9/L 015 Unknown COMPLETE BLOOD COUNT 2102145 ABS LYMPH 1.37 10e9/L 015 Unknown COMPLETE BLOOD COUNT [id number] ABS MONO 1.03 10e9/L 015 Unknown COMPLETE BLOOD COUNT 3560507 ABS EOS 0.31 10e9/L 015 Unknown COMPLETE BLOOD COUNT 8697014 ABS BASO 0.02 10e9/L 015 Unknown COMPLETE BLOOD COUNT 7893141 RDW-SD 42.4 fL 5 Unknown GFR CALC 7834416 GFR AA 51.0L ML/MIN 01/17/2015 Unknow n GFR CALC 5103964 GFR NON-AA 42.0L ML/MIN 01/17/2015 Unkno wn FREE T4 24399 FREE T4 1.30 NG/DL 01/17/2015 Unknown THYROID STIMULATING HORMONE 63348 TSH 4.029 uIU/ML 01/17/2015 Unknown COMPREHENSIVE METABOLIC 88256 AST 28 U/L 2014 Unknown COMPREHENSIVE METABOLIC 00545 ALT 25 IU/L 2014 Unknown COMPREHENSIVE METABOLIC 59208 BUN 21 MG/DL 2014 Unknown COMPREHENSIVE METABOLIC 74333 ALBUMIN 4.7 GM/DL 2014 Unknown COMPREHENSIVE METABOLIC 00133 CHLORIDE 102 MMOL/L 01/17 Unknown COMPREHENSIVE METABOLIC 50963 BILI TOT 0.6 MG/DL 2014 Unknown COMPREHENSIVE METABOLIC 68491 ALK PHOS 44 U/L 2014 Unknown COMPREHENSIVE METABOLIC 89828 SODIUM 137 MMOL/L 01/17 Unknown COMPREHENSIVE METABOLIC 23050 CREATININE 1.62 MG/DL 01/04 Unknown COMPREHENSIVE METABOLIC 23223 CALCIUM 9.7 MG/DL 2014 Unknown COMPREHENSIVE METABOLIC 92532 POTASSIUM 4.5 MMOL/L 01/17 Unknown COMPREHENSIVE METABOLIC 15978 PROT TOT 6.5 GM/DL 2014 Unknown COMPREHENSIVE METABOLIC 12564 Glucose 136 MG/DL 2014 Unknown COMPREHENSIVE METABOLIC 61100 BICARB 24 MMOL/L 2014 Unknown COMPREHENSIVE METABOLIC 27841 ANION GAP 11 MEQ/L 2014 Unknown VITAMIN B 12 85440 VIT B 12 482 PG/ML 01/17/2015 Unknow n URIC ACID 98162 URIC ACID 8.5 MG/DL 08/09/2014 Unknown COMPREHENSIVE METABOLIC 42608 AST 27 U/L 2014 Unknown COMPREHENSIVE METABOLIC 91486 ALT 26 IU/L 2014 Unknown COMPREHENSIVE METABOLIC 07008 BUN 17 MG/DL 2014 Unknown COMPREHENSIVE METABOLIC 50266 ALBUMIN 5.0 GM/DL 2014 Unknown COMPREHENSIVE METABOLIC 90167 CHLORIDE 101 MMOL/L 08/09 Unknown COMPREHENSIVE METABOLIC 40466 BILI TOT 0.7 MG/DL 2014 Unknown COMPREHENSIVE METABOLIC 02424 ALK PHOS 53 U/L 2014 Unknown COMPREHENSIVE METABOLIC 29998 SODIUM 136 MMOL/L 08/09 Unknown COMPREHENSIVE METABOLIC 30669 CREATININE 1.14 MG/DL 09/2014 Unknown COMPREHENSIVE METABOLIC 36327 CALCIUM 9.8 MG/DL 2014 Unknown COMPREHENSIVE METABOLIC 90851 POTASSIUM 4.1 MMOL/L 08/09 Unknown COMPREHENSIVE METABOLIC 06775 PROT TOT 7.5 GM/DL 2014 Unknown COMPREHENSIVE METABOLIC 13711 Glucose 110 MG/DL 2014 Unknown COMPREHENSIVE METABOLIC 46175 BICARB 30 MMOL/L 2014 Unknown COMPREHENSIVE METABOLIC 76773 ANION GAP 5 MEQ/L 2014 Unknown GFR CALC 5486016 GFR AA >60 ML/MIN 08/09/2014 Unknown GFR CALC 7812409 GFR NON-AA >60 ML/MIN 08/09/2014 Unknown FREE T4 47296 FREE T4 1.14 NG/DL 08/09/2014 Unknown GLYCOSYLATED HEMOGLOBIN TEST 73080 A1C HPLC 55957-1 6.8 % 0 08/09/2014 Unknown COMPLETE BLOOD COUNT 8175464 WBC 5.9 10e9/L 08/09/19 15 Unknown COMPLETE BLOOD COUNT 3167958 RBC 5.04 10e12/L 2014 Unknown COMPLETE BLOOD COUNT 6545578 HGB 15.2 g/dL 5 Unknown COMPLETE BLOOD COUNT 1496470 HCT DET 44.3 % 5 Unknown COMPLETE BLOOD COUNT 9153554 MCV 87.9 fL 5 Unknown COMPLETE BLOOD COUNT 8705513 MCH 30.2 pg 5 Unknown COMPLETE BLOOD COUNT 5146388 MCHC 34.3 g/dL 5 Unknown COMPLETE BLOOD COUNT 1769081 PLT 262 10e9/L 08/09/19 15 Unknown COMPLETE BLOOD COUNT 1140108 MPV 10.9 fL 5 Unknown COMPLETE BLOOD COUNT 9369152 SAM % 58.7 % 5 Unknown COMPLETE BLOOD COUNT 0658293 LY % 21.5 % 5 Unknown COMPLETE BLOOD COUNT 4703321 MON % 14.0 % 5 Unknown COMPLETE BLOOD COUNT 4059210 EOS % 5.3 % 5 Unknown COMPLETE BLOOD COUNT 4070331 BASO % 0.5 % 5 Unknown COMPLETE BLOOD COUNT 4390158 RDW 13.1 % 5 Unknown COMPLETE BLOOD COUNT 1824941 ABS SAM 3.46 10e9/L 015 Unknown COMPLETE BLOOD COUNT 7709171 ABS LYMPH 1.27 10e9/L 015 Unknown COMPLETE BLOOD COUNT 9704973 ABS MONO 0.83 10e9/L 015 Unknown COMPLETE BLOOD COUNT 8217695 ABS EOS 0.31 10e9/L 015 Unknown COMPLETE BLOOD COUNT [id number] ABS BASO 0.03 10e9/L 015 Unknown COMPLETE BLOOD COUNT 7024213 RDW-SD 41.2 fL 5 Unknown THYROID STIMULATING HORMONE 10552 TSH 5.395 uIU/ML 08/09/2014 Unknown LIPID GROUP 12375 HDL TEST 52 MG/DL 08/09/2014 Unknown [facility] 22620 TRIG 113 MG/DL 08/09/2014 Unknown [facility] GROUP 38379 TEST LDL 158 MG/DL 08/09/2014 Unknown LIPID GROUP 69913 CHOL 233 MG/DL 08/09/2014 Unknown LIP[facility] GROUP 70084 RCHOL/HDL 4.48 RATIO 08/09/2014 Unknow n LIPID GROUP 66022 NON-HDL CH 181 MG/DL 08/09/2014 Unknow n COMPLETE BLOOD COUNT [id number] WBC 6.8 10e9/L 09/09/19 14 Unknown COMPLETE BLOOD COUNT [id number] RBC 5.18 10e12/L 2013 Unknown COMPLETE BLOOD COUNT [id number] HGB 15.2 g/dL 4 Unknown COMPLETE BLOOD COUNT [id number] HCT DET 44.7 % 4 Unknown COMPLETE BLOOD COUNT [id number] MCV 86.3 fL 4 Unknown COMPLETE BLOOD COUNT [id number] MCH 29.3 pg 4 Unknown COMPLETE BLOOD COUNT [id number] MCHC 34.0 g/dL 4 Unknown COMPLETE BLOOD COUNT [id number] PLT 236 10e9/L 09/09/19 14 Unknown COMPLETE BLOOD COUNT [id number] MPV 11.0 fL 4 Unknown COMPLETE BLOOD COUNT [id number] SAM % 58.2 % 4 Unknown COMPLETE BLOOD COUNT [id number] LY % 21.9 % 4 Unknown COMPLETE BLOOD COUNT [id number] MON % 12.5 % 4 Unknown COMPLETE BLOOD COUNT [id number] EOS % 7.3 % 4 Unknown COMPLETE BLOOD COUNT [id number] BASO % 0.1 % 4 Unknown COMPLETE BLOOD COUNT [id number] RDW 13.6 % 4 Unknown COMPLETE BLOOD COUNT [id number] ABS SAM 3.96 10e9/L 014 Unknown COMPLETE BLOOD COUNT [id number] ABS LYMPH 1.49 10e9/L 014 Unknown COMPLETE BLOOD COUNT [id number] ABS MONO 0.85 10e9/L 014 Unknown COMPLETE BLOOD COUNT [id number] ABS EOS 0.50 10e9/L 014 Unknown COMPLETE BLOOD COUNT [id number] ABS BASO 0.01 10e9/L 014 Unknown COMPLETE BLOOD COUNT [id number] RDW-SD 42.3 fL 4 Unknown COMPREHENSIVE METABOLIC 31411 AST 27 U/L 2013 Unknown COMPREHENSIVE METABOLIC 50451 ALT 30 IU/L 2013 Unknown COMPREHENSIVE METABOLIC 27907 BUN 16 MG/DL 2013 Unknown COMPREHENSIVE METABOLIC 70635 ALBUMIN 4.9 GM/DL 2013 Unknown COMPREHENSIVE METABOLIC 83246 CHLORIDE 99 MMOL/L 2013 Unknown COMPREHENSIVE METABOLIC 28588 BILI TOT 0.7 MG/DL 2013 Unknown COMPREHENSIVE METABOLIC 18515 ALK PHOS 53 U/L 2013 Unknown COMPREHENSIVE METABOLIC 91387 SODIUM 137 MMOL/L 09/08 Unknown COMPREHENSIVE METABOLIC 16458 CREATININE 1.01 MG/DL 11/2013 Unknown COMPREHENSIVE METABOLIC 40751 CALCIUM 10.0 MG/DL 09/08 Unknown COMPREHENSIVE METABOLIC 55826 POTASSIUM 4.4 MMOL/L 09/08 Unknown COMPREHENSIVE METABOLIC 16332 PROT TOT 7.1 GM/DL 2013 Unknown COMPREHENSIVE METABOLIC 20409 Glucose 148 MG/DL 2013 Unknown COMPREHENSIVE METABOLIC 75314 BICARB 30 MMOL/L 2013 Unknown COMPREHENSIVE METABOLIC 26474 ANION GAP 8 MEQ/L 2013 Unknown GFR CALC [id number] GFR AA >60 ML/MIN 09/08/2013 Unknown GFR CALC 9279062 GFR NON-AA >60 ML/MIN 09/08/2013 Unknown FREE T4 26965 FREE T4 1.08 NG/DL 09/08/2013 Unknown GLYCOSYLATED HEMOGLOBIN TEST 92798 A1C HPLC 34997-6 7.3 % 0 09/08/2013 Unknown THYROID STIMULATING HORMONE 40282 TSH 5.454 uIU/ML 09/08/2013 Unknown LIPID GROUP 88679 HDL TEST 59 MG/DL 09/08/2013 Unknown LIPID GROUP 31658 TRIG 92 MG/DL 09/08/2013 Unknown LIPID GROUP 78426 TEST LDL 83 MG/DL 09/08/2013 Unknown LIPID GROUP 46194 CHOL 160 MG/DL 09/08/2013 Unknown LIPID GROUP 58476 RCHOL/HDL 2.71 RATIO 09/08/2013 Unknow n VITAMIN B 12 FOLIC ACID 22476|04883 VIT B 12 467 PG/ML 12/2012 Unknown VITAMIN B 12 FOLIC ACID 44974|38193 FOLIC ACID 12.2 NG/ML Unknown VITAMIN B 12 FOLIC ACID 72602|11706 VIT B 12 467 PG/ML 12/2012 Unknown THYROID STIMULATING HORMONE 01155 TSH 4.557 uIU/ML 03/12/2013 Unknown HEMOGLOBIN A1C (GLYCOSYLATED) 6682830 A1C HPLC 74314-3 7.6 % 03/12/2013 Unknown VITAMIN D TOTAL (25 HYDROXY) 57306 VIT D TOTL 17 NG/ML 03/12/2013 Unknown FREE T4 65620 FREE T4 1.07 NG/DL 03/12/2013 Unknown URIC ACID 39663 URIC ACID 5.2 MG/DL 03/12/2013 Unknown Procedures Procedure Codes Date THER/PROPH/DIAG INJ SC/IM CPT-4: 82934 05/13/2019 TRIAMCINOLONE ACET INJ NOS CPT-4: J3301 05/13/2019 DEXAMETHASONE SODIUM PHOS CPT-4: J1100 05/13/2019 THER/PROPH/DIAG INJ SC/IM CPT-4: 74439 02/22/2019 TRIAMCINOLONE ACET INJ NOS CPT-4: J3301 02/22/2019 FLU VACC PRSV FREE INC ANTIG 65 AND OLDER CPT-4: 36633 04/21/2018 ADMIN INFLUENZA VIRUS VAC CPT-4: G0008 04/21/2018 PRESCRIP TRANSMIT VIA ERX SY CPT-4: G8553 04/21/2018 DESTRUCT PREMALG LESION (Cryosurgery) CPT-4: 51318 FLU VACC PRSV FREE INC ANTIG 65 AND OLDER CPT-4: 21703 04/22/2017 ADMIN INFLUENZA VIRUS VAC CPT-4: G0008 04/22/2017 PRESCRIP TRANSMIT VIA ERX SY CPT-4: G8553 10/10/2016 PRESCRIP TRANSMIT VIA ERX SY CPT-4: G8553 08/29/2015 ROUTINE VENIPUNCTURE CPT-4: 46563 07/26/2015 ASSAY OF FREE THYROXINE CPT-4: 65409 07/26/2015 ASSAY THYROID STIM HORMONE CPT-4: 14636 07/26/2015 COMPREHEN METABOLIC PANEL CPT-4: 59522 07/26/2015 COMPLETE CBC W/AUTO DIFF WBC CPT-4: 02088 07/26/2015 LIPID PANEL CPT-4: 87912 07/26/2015 ASSAY OF PSA TOTAL CPT-4: 67189 07/26/2015 A1C HPLC CPT-4: 07041 07/26/2015 ROUTINE VENIPUNCTURE CPT-4: 99355 01/17/2015 ASSAY OF FREE THYROXINE CPT-4: 54382 01/17/2015 ASSAY THYROID STIM HORMONE CPT-4: 17330 01/17/2015 COMPREHEN METABOLIC PANEL CPT-4: 30630 01/17/2015 COMPLETE CBC W/AUTO DIFF WBC CPT-4: 40322 01/17/2015 A1C HPLC CPT-4: 28472 01/17/2015 VITAMIN B-12 CPT-4: 86510 01/17/2015 PPPS, subseq visit CPT-4: G0439 08/04/2014 PRESCRIP TRANSMIT VIA ERX SY CPT-4: G8553 02/18/2014 FLUZONE, 5ML (Medicare) CPT-4: Q2038 07/22/2013 ADMIN INFLUENZA VIRUS VAC CPT-4: G0008 07/22/2013 PRESCRIP TRANSMIT VIA ERX SY CPT-4: G8553 04/28/2013 ROUTINE VENIPUNCTURE CPT-4: 67794 03/12/2013 VITAMIN D TOTAL (25 HYDROXY) CPT-4: 49469 03/12/2013 VITAMIN B 12 FOLIC ACID CPT-4: 33794|00336 03/12/2013 A1C GLYCOSYLATED HEMOGLOBIN TEST CPT-4: 14759 013 ASSAY OF BLOOD/URIC ACID CPT-4: 19108 03/12/2013 ASSAY OF FREE THYROXINE CPT-4: 27198 03/12/2013 ASSAY THYROID STIM HORMONE CPT-4: 37611 03/12/2013 CUR TOBACCO NON-USER CPT-4: G8457 03/11/2013 [...] 1: 156/70 Code: 8480-6 BMI: 35.0 Code: 83833-7 Heart Rate 1: 68 bpm Height: 5'10" Respiratory Rate: 20 bpm SpO2: 95% Tempera ture: 36.5 (C) / 97.7 (F) Weight: 244 lbs 04/21/2018 Blood Pressure 1: 124/80 Code: 8480-6 BMI: 34.4 Code: 71395-7 Heart Rate 1: 80 bpm Height: 5'10" Respiratory Rate: 20 bpm SpO2: 96% Tempera ture: 37.0 (C) / 98.6 (F) Weight: 240 lbs 01/06/2018 Blood Pressure 1: 138/82 Code: 8480-6 BMI: 33.9 Code: 83773-1 Heart Rate 1: 96 bpm Height: 5'10" Respiratory Rate: 24 bpm SpO2: 98% Tempera ture: 35.9 (C) / 96.6 (F) Weight: 236 lbs 10/22/2017 Blood Pressure 1: 144/70 Code: 8480-6 BMI: 34.7 Code: 04043-9 Heart Rate 1: 72 bpm Height: 5'10" Respiratory Rate: 20 bpm SpO2: 96% Tempera ture: 36.9 (C) / 98.4 (F) Weight: 242 lbs 04/22/2017 Blood Pressure 1: 146/82 Code: 8480-6 BMI: 32.9 Code: 27638-5 Heart Rate 1: 104 bpm Height: 5'10" Respiratory Rate: 20 bpm SpO2: 95% Tempera ture: 36.9 (C) / 98.5 (F) Weight: 229 lbs 10/10/2016 Blood Pressure 1: 124/64 Code: 8480-6 BMI: 32.9 Code: 38779-8 Heart Rate 1: 64 bpm Height: 5'10" [...] 1: 146/90 Code: 8480-6 BMI: 34.1 Code: 43607-7 Heart Rate 1: 80 bpm Height: 5'10" Respiratory Rate: 20 bpm Temperature: 36 .8 (C) / 98.2 (F) Weight: 238 lbs 01/17/2015 Blood Pressure 1: 116/60 Code: 8480-6 BMI: 32.7 Code: 07250-1 Heart Rate 1: 84 bpm Height: 5'10" Respiratory Rate: 20 bpm Temperature: 36 .7 (C) / 98.0 (F) Weight: 228 lbs 09/29/2014 Blood Pressure 1: 136/78 Code: 8480-6 BMI: 33.9 Code: 03650-0 Heart Rate 1: 80 bpm Height: 5'10" Respiratory Rate: 20 bpm Temperature: 36 .6 (C) / 97.9 (F) Weight: 236 lbs 08/04/2014 Blood Pressure 1: 132/70 Code: 8480-6 BMI: 32.9 Code: 67676-2 Heart Rate 1: 72 bpm Height: 5'10" Respiratory Rate: 20 bpm Temperature: 36 .7 (C) / 98.0 (F) Weight: 229 lbs 02/18/2014 Blood Pressure 1: 124/82 Code: 8480-6 Heart Rate 1: 82 bpm Respiratory Rate: 18 bpm Temperature: 36.4 (C) / 97.5 (F) Weight: 232 lbs 07/29/2013 Blood Pressure 1: 146/80 Code: 8480-6 BMI: 34.1 Code: 99964-9 Heart Rate 1: 64 bpm Height: 5'10" Respiratory Rate: 20 bpm Temperature: 36 .9 (C) / 98.5 (F) Weight: 238 lbs 05/26/2013 Blood Pressure 1: 142/90 Code: 8480-6 BMI: 34.0 Code: 00679-2 Heart Rate 1: 84 bpm Height: 5'10" Respiratory Rate: 20 bpm Temperature: 36 .7 (C) / 98.0 (F) Weight: 237 lbs 04/28/2013 Blood Pressure 1: 118/78 Code: 8480-6 BMI: 32.9 Code: 28919-7 Heart Rate 1: 74 bpm Height: 5'10" Respiratory Rate: 20 bpm Temperature: 36 .1 (C) / 97.0 (F) Weight: 229 lbs 03/11/2013 Blood Pressure 1: 146/80 Code: 8480-6 BMI: 31.5 Code: 50307-7 Heart Rate 1: 80 bpm Height: 6' [...] care Encounters Encounter Performer Location Codes Date ([id number]) OFFICE/OUTPATIENT VISIT EST Diagnosis: Upper respiratory infection[ICD10: J06.9] Pennie Dickensgenet Gan ARELYSHERITA [employer] CPT-4: 95840 06/02/2019 ([id number]) OFFICE/OUTPATIENT VISIT EST Diagnosis: Sinusitis[ICD10: J32.9] Diagnosis: Allergic rhinitis[ICD10: J30.9] Pennie Moiragenet Gan SensorinSHAANER [employer] CPT-4: 20628 05/13/2019 ([id number]) OFFICE/OUTPATIENT VISIT EST Diagnosis: Pneumonia[ICD10: J18.9] Pennie Moiragenet LARA SEdvin Qine[employer] CPT-4: 69369 04/26/2019 ([id number]) OFFICE/OUTPATIENT VISIT EST Diagnosis: Acute sinusitis, unspecified[ICD10: J01.90] Pennie Moiragenet Gan [employer]SHAA[employer] Pay CPT-4: 74527 02/22/2019 ([id number]) OFFICE/OUTPATIENT VISIT EST Diagnosis: Cervicalgia[ICD10: M54.2] Xiomara [facility] CPT-4: 89399 11/25/2018 ([id number]) OFFICE/OUTPATIENT VISIT EST Diagnosis: Acute sinusitis, unspecified[ICD10: J01.90] Diagnosis: Myalgia, unspecified site[ICD10: M79.10] Diagnosis: Cervicalgia[ICD10: M54.2] Xiomara 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 18[facility] 07/22/2018 ([id number]) OFFICE/OUTPATIENT VISIT EST Diagnosis: Type 2 diabetes mellitus with diabetic neuropathy, unspecified[ICD10: E11.40] Diagnosis: Hyperlipidemia, unspecified[ICD10: E78.5] Diagnosis: Essential (primary) hypertension[ICD10: I10] Diagnosis: Chronic kidney disease, stage 1[ICD10: N18.1] Diagnosis: Benign prostatic hyperplasia with lower urinary tract symptoms[ICD10: N40.1] Diagnosis: FLU VACCINE[ICD10: Z23] Xiomara [facility] CPT-4: 44568 04/21/2018 OFFICE/OUTPATIENT VISIT EST Diagnosis: Type 2 diabetes mellitus with hyperglycemia[ICD10: E11.65] Diagnosis: Essential (primary) hypertension[ICD10: I10] Diagnosis: Mixed hyperlipidemia[ICD10: E78.2] Diagnosis: Other fatigue[ICD10: R53.83] [facility]: 82768 01/06/2018 ([id number]) OFFICE/OUTPATIENT VISIT EST Diagnosis: Type 2 diabetes mellitus with diabetic neuropathy, unspecified[ICD10: E11.40] Diagnosis: Essential (primary) hypertension[ICD10: I10] Diagnosis: Pain in right thigh[ICD10: M79.651] Diagnosis: Pain in left leg[ICD10: M79.605] Diagnosis: Localized swelling, mass and lump, left lower limb[ICD10: R22.42] Diagnosis: OSTEOARTHRISIS MULTI SITES[ICD10: M19.90] Diagnosis: FLU VACCINE[ICD10: Z23] Xiomara ROSENBAUM [employer] CPT-4: 96689 04/22/2017 ([id number]) OFFICE/OUTPATIENT VISIT EST Diagnosis: Essential (primary) hypertension[ICD10: I10] Diagnosis: Type 2 diabetes mellitus with hyperglycemia[ICD10: E11.65] Diagnosis: Angina pectoris, unspecified[ICD10: I20.9] Xiomara BETTENCOURT [employer] CPT-4: 13031 10/10/2016 ([id number]) OFFICE/OUTPATIENT VISIT EST Diagnosis: Cough[ICD10: R05] Diagnosis: Wheezing[ICD10: R06.2] Diagnosis: Chronic obstructive pulmonary disease, unspecified[ICD10: J44.9] Shannan BETTENCOURT [employer] CPT-4: 43109 08/31/2015 OFFICE/OUTPATIENT VISIT EST Diagnosis: Acute bronchitis, unspecified[ICD10: J20.9] Diagnosis: Wheezing[ICD10: R06.2] Kelsie STOKES [employer] CPT-4: 44414 08/29/2015 ([id number]) OFFICE/OUTPATIENT VISIT EST Diagnosis: Type 2 diabetes mellitus with diabetic neuropathy, unspecified[ICD10: E11.40] Diagnosis: Hyperlipidemia, unspecified[ICD10: E78.5] Diagnosis: Essential (primary) hypertension[ICD10: I10] Diagnosis: Encounter for general adult medical examination without abnormal findings[ICD10: Z00.00] Xiomara BETTENCOURT [employer] CPT-4: 88106 07/26/2015 OFFICE/OUTPATIENT VISIT EST Diagnosis: Type 2 diabetes mellitus with hyperglycemia[ICD10: E11.65] Diagnosis: Unspecified osteoarthritis, unspecified site[ICD10: M19.90] Diagnosis: Other instability, right knee[ICD10: M25.361] Kelsie BETTENCOURT [employer] CPT-4: 86122 07/24/2015 ([id number]) OFFICE/OUTPATIENT VISIT EST Diagnosis: Pain in leg, unspecified[ICD10: M79.606] Diagnosis: Type 2 diabetes mellitus with diabetic neuropathy, unspecified[ICD10: E11.40] Xiomara [facility] CPT-4: 80752 05/01/2015 ([id number]) OFFICE/OUTPATIENT VISIT EST Diagnosis: MALAISE AND FATIGUE[ICD9: 780.79] Diagnosis: 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, 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] Diagnosis: CAD[ICD9: 414.00] Diagnosis: ANEMIA NOS[ICD9: 285.9] Xiomara [facility] CPT-4: 76106 01/17/2015 ([id number]) OFFICE/OUTPATIENT VISIT EST Diagnosis: Skin lesion[ICD9: 709.9] Xiomara [facility] CPT-4: 86052 09/29/2014 OFFICE/OUTPATIENT VISIT EST Diagnosis: GASTROENTERITIS[ICD9: 558.9] Diagnosis: GERD[ICD9: 530.81] Kelsie VanBecelaere XIOMARA [facility] CPT-4: 31006 02/18/2014 ([id number]) OFFICE/OUTPATIENT VISIT EST Diagnosis: 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I, UNCONTROLLED[ICD9: 250.02] Xiomara [facility] CPT-4: 04557 07/29/2013 ([id number]) OFFICE/OUTPATIENT VISIT EST Diagnosis: FLU VACCINE[ICD9: V04.81] Xiomara [facility] CPT-4: 05894 07/22/2013 ([id number]) OFFICE/OUTPATIENT VISIT EST Diagnosis: 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I, UNCONTROLLED[ICD9: 250.02] Diagnosis: HYPERTENSION[ICD9: 401.9] Xiomara [facility] CPT-4: 90309 05/26/2013 ([id number]) OFFICE/OUTPATIENT VISIT EST Diagnosis: MONONEURITIS[ICD9: 355.9] Diagnosis: RESTLESS LEGS SYNDROME[ICD9: 333.94] Diagnosis: HYPERTENSION[ICD9: 401.9] Diagnosis: CAD[ICD9: 414.00] Diagnosis: Weakness[ICD9: 780.79] Xiomara Bettencourt XIOMARA DelphineEdvin DIVYA Dolan [employer] CPT-4: 51582 04/28/2013 ([id number]) OFFICE/OUTPATIENT VISIT EST Diagnosis: 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[ICD9: 250.01] Diagnosis: MONONEURITIS[ICD9: 355.9] Diagnosis: HYPERLIPIDEMIA NEC/NOS[ICD9: 272.4] Diagnosis: CAD[ICD9: 414.00] Xiomara Rut BETTENCOURT [employer] CPT-4: 07852 03/12/2013 OFFICE/OUTPATIENT VISIT NEW Diagnosis: CAD[ICD9: 414.00] Diagnosis: HYPERLIPIDEMIA NEC/NOS[ICD9: 272.4] Diagnosis: HYPERTENSION[ICD9: 401.9] Diagnosis: Neuropathy[ICD9: 355.9] Diagnosis: RESTLESS LEGS SYNDROME[ICD9: 333.94] Xiomara JACKMAN DelphineEdvin RUT [employer] CPT-4: 23749 03/11/2013 Plan of Care Planned Activity Notes [...] ICD-10 : J06.9 06/02/2019 Appointment: Pennie Pizarro [address] [facility] ACUTE ILLNESS 06/02/2019 Visit Diagnosis Plan: Allergic [...] ICD-10 : J30.9 05/13/2019 Appointment: Pennie Pizarro [address] [facility] ACUTE ILLNESS 05/13/2019 Appointment: Xiomara Bettencourt: [phone] [facility] CANCELED 04/27/2019 Visit Diagnosis Plan: Pneumonia Discussion: will obtai n records from urgent care. instructed to finish out doxy. no rhonchi or crackles auscultated. symbicort sample given to patient with instructions to use bid. call office later this week with new or worsening symptoms. ICD-9 : 486 ICD-10 : J18.9 04/26/2019 Appointment: Pennie Pizarro [address] [place] [address] FOLLOW UP 04/26/2019 Visit Diagnosis Plan: Acute [...] ICD-10 : J01.90 02/22/2019 Appointment: Pennie Pizarro [address] [place], [place] [phone] ACUTE ILLNESS 02/22/2019 Patient Education: prednisone- [employer] Coupon [phone] [email or web address]://www.[employer]samplemd/resources/getResource/[email or web address] Completed 02/22/2019 Visit Diagnosis Plan: Cervicalgia Discussion: Check Ce rvical Spine X-ray Will likely need PT ICD-9 : 723.1 ICD-10 : M54.2 11/25/2018 Appointment: Xiomara Bettencourt WPtel: [phone] [facility] ACUTE ILLNESS 11/25/2018 Visit Plan: Saline [...] Tyle... 11/19/2018 Appointment: Xiomara Bettencourt WPtel: [phone] [facility] ACUTE ILLNESS 11/19/2018 Patient Education: baclofen- [employer] Coupon [phone] [email or web address]://www.[employer]samplemd/resources/getResource/61/[email or web address] Completed 11/19/2018 Visit Diagnosis Plan: Paroxysmal atrial [...] I10 07/22/2018 Appointment: Xiomara Bettencourt WPtel: [phone] [facility] US FOLLOW UP 07/22/2018 Visit Diagnosis Plan: Benign prostatic h yperplasia with lower urinary tract symptoms Discussion: Trial of flomax Call in 1 mo [facility] on how doing Follow Up: 4 months ICD-9 : 600.21 ICD-10 : N40.1 04/21/2018 Visit Diagnosis Plan: Chronic kidney disease, stage 1 Discussion: DC NSAIDs May use tylenol ICD-9 : 585.1 ICD-10 : N18.1 04/21/2018 Visit Diagnosis Plan: Type 2 diabetes [...] ICD-9 : 401.9 ICD-10 : I10 04/21/2018 Appointment: Xiomara Bettencourt WPtel: [phone] [facility] FOLLOW UP 04/21/2018 Patient Education: Patient Medication Summary Completed 04/21/2018 Visit Diagnosis Plan: Essential (primary) hypertension Discussion: stable, continue current medications. ICD-9 : 401.9 ICD-10 : I10 01/06/2018 Visit Diagnosis Plan: Type 2 diabetes [...] ICD-9 : 780.79 ICD-10 : R53.83 01/06/2018 Appointment: Pennie Pizarro [address] [place], [place] [address] MEDICATION REVIEW 01/06/2018 Patient Education: Patient Medication Summary Completed 01/06/2018 Appointment: Xiomara Bettencourt WPtel: [address] [place], [place] [phone] [place] NO SHOW 01/05/2018 Appointment: Xiomara Bettencourt WPtel: [address] [place], [place] [phone] [place] CANCELED 12/31/2017 Visit Diagnosis Plan: Actinic keratosis Discussion: Cr yotherapy as above but will see derm if lesions do not resolve ICD-9 : 702.0 ICD-10 : L57.0 10/22/2017 Appointment: Xiomara Bettencourt WPtel: [facility] ACUTE ILLNESS 10/22/2017 Patient Education: Patient Medication [...] E11.40 04/22/2017 Appointment: [facility] Bettencourt [phone] [facility] [facility] 04/22/2017 Patient Education: Patient Medication Summary Completed 04/22/2017 Patient Education: Patient Medication Summary Completed 04/16/2017 Care Plan: COMPREHEN METABOLIC PANEL SERGEI NC : 68751-7 Pending 04/16/2017 Care Plan: LIPID PANEL LOINC : 68673-7 Pending 04/16/2017 Care Plan: CBC Pending 04/16/2017 Care Plan: A1C HPLC LOINC : 47909-3 Pending 04/16/2017 Referral: Inocencio Goodson WPtel: [phone] [facility] [id number] [place] Referral Appointment Confirmed 10/14/2016 Visit Diagnosis Plan: Type 2 diabetes mellitus with hy perglycemia Discussion: Continue toujeo Accuchecks BID Follow Up: 4 months ICD-9 : 250.02 ICD-10 : E11.65 10/10/2016 Visit Diagnosis Plan: Angina pectoris, unspecified Dis cussion: Continue imdur and see cardiology To ER if chest pain returns ICD-9 : 413.9 ICD-10 : I20.9 10/10/2016 Appointment: Xiomara Bettencourt [facility]el[phone] [facility] [place] FOLLOW [facility] 10/10/2016 Patient Education: Patient Medication Summary Completed 10/10/2016 Patient Education: Patient Medication Summary Completed 09/16/2016 Care Plan: COMPREHEN METABOLIC PANEL SERGEI NC : 02906-2 Pending 09/16/2016 Care Plan: ASSAY THYROID STIM HORMONE Pen ding 09/16/2016 Care Plan: ASSAY OF FREE THYROXINE Pendin g 09/16/2016 Care Plan: LIPID PANEL LOINC : 01934-0 Pending 09/16/2016 Care Plan: CBC Pending 09/16/2016 Care Plan: A1C HPLC LOINC : 07825-7 Pending 09/16/2016 Visit Plan: CXR now to [...] Will call with CXR results 08/31/2015 Appointment: CornelioShannan [address] [place], [place] [phone] 08/31 confirmed- SP ACUTE ILLNESS 08/31/2015 Patient Education: Patient Medication Summary Completed 08/31/2015 Visit Plan: Albuterol INH via SVN every 4 hours Prednisone 20 mg PO BID Notify for worsening symptoms 08/29/2015 Appointment: Kelsie Grubbs WPtel: [address] [place], [place] [phone] ACUTE ILLNESS 08/29/2015 Patient Education: Patient Medication Summary Completed 08/29/2015 Appointment: Xiomara Bettencourt WPtel: [address] [place], [place] [phone] LAB 07/26/2015 Patient Education: Patient Medication Summary Completed 07/26/2015 Visit Plan: Return in am for fasting lab s - CBC, CMP, TSH, Free T4, HgbA1C Change Levemir to Toujeo - Continue 35 Units q am - sample given Start physical Therapy for increased quadriceps strengthening and decreased pain in knees, bilaterally. 07/24/2015 Appointment: Kelsie Grubbs WPtel: [address] [place], [place] [phone] 07/21 appt confirmed cn FOLLOW UP 07/24/19 16 Appointment: Kelsie Grubbs WPtel: [address] [place], [place] [phone] FOLLOW UP 07/24/2015 Patient Education: Patient Medication [...] insulin 05/01/2015 Appointment: Xiomara Bettencourt WPtel: [address] [place], [place] [phone] 04/28 confirmed~sl ACUTE ILLNESS 05/01/2015 Patient Education: Patient Medication Summary Completed 05/01/2015 Patient Education: Patient Medication Summary Completed 01/19/2015 Care Plan: URINALYSIS AUTO W/[place]GEI NC : 27164-1 Pending 01/19/2015 Visit Plan: I have went [...] stress test 01/17/2015 Appointment: Xiomara Bettencourt WPtel: [address] [place] [address] 01/16 [facility] ACUTE ILLNESS 01/17/2015 Patient Education: Patient Medication Summary Completed 01/17/2015 Visit Plan: See Dr. Garvin for removal 09/29/2014 Appointment: Xiomara Bettencourt WPtel: [address] [place] [address] ACUTE ILLNESS 09/29/2014 Referral: Colt Garvin WPtel: [address] [place] [address] Referral Initiated 09/29/2014 Patient Education: Patient Medication Summary Completed 09/29/2014 Visit Plan: Check CBC, CMP, TSH, free T4 , HbA1C, Lipids Accuchecks daily alternating times Patient has been adjusting own meds and has not taken any cholesterol meds for sometime Will check into surgery on right knee at [facility] Check carotid dopplers 08/04/2014 Appointment: Xiomara Bettencourt WPtel: [address] [place] [address] Annual Well Visit 08/04/2014 Patient Education: Patient Medication Summary Completed 08/04/2014 Appointment: Kelsie Grubbs WPtel: [address] [place] [address] ACUTE ILLNESS 02/18/2014 Patient Education: Patient Medication Summary Completed 02/18/2014 Patient Education: [facility] - Saving AutoInj - 18+ - Dynamic Portal ID Completed 02/18/2014 Appointment: Xiomara Bettencourt WPtel: [address] [place], [place] [phone] LAB 09/08/2013 Visit Plan: Check fasting lab in 1mo Con tinue Lantus and accuchecks at least BID 07/29/2013 Appointment: Xiomara Bettencourt WPtel: [address] [place], [place] [phone] FOLLOW UP 07/29/2013 Patient Education: Patient Medication Summary Completed 07/29/2013 Appointment: Xiomara Bettencourt WPtel: [address] [place], [place] [phone] INJECTION 07/22/2013 Patient Education: Patient Medication Summary Completed 07/22/2013 Visit Plan: Pt has been self-adjusting m eds Stop metformin and amaryl Use Levemir 25u sc BID and call in 1wk with BS readings 05/26/2013 Appointment: Xiomara Bettencourt WPtel: [address] [place] [address] FOLLOW UP 05/26/2013 Patient Education: Patient Medication Summary Completed 05/26/2013 Visit Plan: DC Metformin Increase Lantus to 30u sc daily Change lisinopril to lisinopril HCT 20/25mg q AM Continue Gabapentin at current dose 04/28/2013 Appointment: Xiomara Bettencourt WPtel: [address] [place], [place] [phone] FOLLOW UP 04/28/2013 Patient Education: Patient Medication Summary Completed 04/28/2013 Appointment: Xiomara Bettencourt WPtel: [address] [place], [place] [phone] LAB 03/12/2013 Patient Education: Patient Medication Summary Completed 03/12/2013 Visit Plan: Trial of neurontin 400mg q H S Obtain most recent lab results Change levemir to lantus per pt request Pt goes for sleep study tonite 03/11/2013 Appointment: Xiomara Bettencourt WPtel: [phone] [facility] [place] 02/01paperwork mailed 03/10 confirmed with spouse NEW PATIENT 11/2012 Patient Education: Patient Medication Summary Completed 03/11/2013 Instructions Comment . Saline nasal flushes prn. Tylenol/Motr in prn headache. Notify if persists/symptoms worsening. . 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 Check fasting [...]
--- OUTSIDE RECORDS SUMMARY | 2020-02-02 21:47 | XMS REPORT | CCD ---
Author Author Sheng Bettencourt D.O. Organization [facility] DelphineEdvin BETTENCOURT DO [facility] Address [address] [place] [address] Phone Care Team Providers Care Documentation Improvement Specialist Name Role Phone PP Unavailable CCM Unavailable Summary Purpose Interface Exchange Insurance Providers Payer name Policy type / Coverage type Covered green party ID Effective Begin Date Effective End Date WPS MEDICARE PART B [place] Medicare Part B [id number] 2018 Unknown [facility] Medicare Part B [id number] 2018 Un known Family history Mother Diagnosis Age At Onset Diabetes mellitus Type 2 Unknown Hypercholesterolemia Unknown Father Diagnosis Age At Onset No Family Disease Entered N/A Social History Social History Element Codes Description Effective Dates Marital status Unknown 03/11/2013 Number of children Unknown 4 03/11/2013 Employment Unknown Retired 03/11/[address]: 6025134 Former smoker 03/11/[address]: 323725 Currently drinks alc ohol Socially 03/11/2013 Has [...] Fill Instructions simvastatin 20 mg tablet RxNorm: 383088 1 Tablet(s) Ora l QD Needs updated fasting labs 06/23/2019 07/23/2019 Active Needs updated fa sting labs before 90 day refill Flomax 0.4 mg capsule RxNorm: 567543 1 Capsule(s) Oral QD 9 No Stop Date Active Flomax 0.4 mg capsule RxNorm: 255574 TAKE TWO CAPSULES BY MOUTH EVERY EVENING 03/19/2019 05/12/2019 Inactive Augmentin 500 mg-125 mg tablet RxNorm: 690709 1 Tablet(s) PO BID 03/03/2019 Inactive baclofen 10 mg tablet RxNorm: 982685 TAKE ONE TABLET BY MOUTH EVERY NIGHT AT BEDTIME FOR PAIN OR SPASMS 01/14/2019 05/12/2019 Inactive Flomax 0.4 mg capsule RxNorm: 597175 TAKE TWO CAPSULES BY MOUTH EVERY EVENING 01/12/2019 03/18/2019 Inactive gabapentin 400 mg capsule RxNorm: 012943 1 Capsule(s) PO QPM 201806/27/2019 Active baclofen 10 mg tablet RxNorm: 323115 1 Tablet(s) PO QHS for my n/spasm 12/15/2018 01/13/2019 Inactive simvastatin 20 mg tablet RxNorm: 515461 TAKE ONE TABLET BY MOUT H DAILY 12/11/2018 06/22/2019 Inactive OneTouch Ultra Blue Test Strip RxNorm: Use 1 rigoberto t strip three times daily to check blood sugar (Dx:E11.65) 12/07/2018 No Stop Date Active gabapentin 400 mg capsule RxNorm: 624780 TAKE ONE CAPSU LE BY MOUTH EVERY EVENING 12/04/2018 12/29/2018 Inactive baclofen 10 mg tablet RxNorm: 919757 1 Tablet(s) PO QHS for my n/spasm 11/19/2018 12/15/2018 Inactive Flomax 0.4 mg capsule RxNorm: 590454 2 Capsule(s) PO QPM 09/15/2018 0 12/13/2018 Inactive WOULD LIKE 90DS!!! gabapentin 400 mg capsule RxNorm: 507835 TAKE ONE CAPSU LE BY MOUTH EVERY EVENING 07/21/2018 10/18/2018 Inactive simvastatin 20 mg tablet RxNorm: 811048 1 Tablet(s) PO QD 06/15/2018 12/10/2018 Inactive Flomax 0.4 mg capsule RxNorm: 480133 TAKE TWO CAPSULES BY MOUTH EVERY EVENING 06/02/2018 09/15/2018 Inactive WOULD LIKE 90DS!!! Flomax 0.4 mg capsule RxNorm: 182086 2 Capsule(s) PO QPM 04/21/2018 1 07/20/2017 Inactive simvastatin 20 mg tablet RxNorm: 716553 1 Tablet(s) PO QD Take 1 tablet by mouth daily. Patient due for labwork before further refill. 04/06/20182017 Inactive simvastatin 20 mg tablet RxNorm: 425829 Tablet(s) TAKE ONE TABLET BY MOUTH DAILY 03/25/2018 06/15/2018 Inactive simvastatin 20 mg tablet RxNorm: 608929 Tablet(s) TAKE ONE TABLET BY MOUTH DAILY due for appt 12/29/2017 03/25/2018 Inactive simvastatin 20 mg tablet RxNorm: 951416 TAKE ONE TABLET BY MOUT H DAILY 09/03/2017 12/29/2017 Inactive simvastatin 20 mg tablet RxNorm: 491243 1 Tablet(s) PO QD 10/22/2016 11/18/2018 Inactive isosorbide mononitrate ER 60 mg tablet,extended release 24 h r RxNorm: 173119 1 Tablet(s) PO QD 10/22/2016 04/21/2017 Inactive isosorbide mononitrate ER 60 mg tablet,extended release 24 h r RxNorm: 329117 1 Tablet(s) PO QD 10/10/2016 10/21/2016 Inactive simvastatin 20 mg tablet RxNorm: 822654 1 Tablet(s) PO QD 10/10/2016 10/21/2016 Inactive gabapentin 400 mg capsule RxNorm: 303693 1 Capsule(s) PO QPM 201609/20/2016 Inactive Touodilia SoloStar 300 unit/mL (1.5 mL) subcutaneous insulin pe n RxNorm: 6638699 35 Unit(s) SQ QAM 07/23/2016 07/22/2016 Inactive Toujeo SoloStar 300 unit/mL (1.5 mL) subcutaneous insulin pe n RxNorm: 3648881 40 Unit(s) SQ QAM 09/01/2015 No Stop Date Active Symbicort 160 mcg-4.5 mcg/actuation HFA aerosol inhaler RxNo rm: 2927927 2 Puff(s) INH BID 08/31/2015 09/09/2015 Inactive prednisone 20 mg tablet RxNorm: 828517 1 Tablet(s) PO BID 08/29/2015 09/02/2015 Inactive albuterol sulfate 2.5 mg/3 mL (0.083 %) solution for n ebulization RxNorm: 639082 1 Unit(s) INH Q4H as needed 08/29/2015 10/09/2016 Inactive levothyroxine 75 mcg tablet RxNorm: 716032 1 Tablet(s) PO QD 201507/27/2015 Inactive levothyroxine 75 mcg tablet RxNorm: 413254 1 Tablet(s) PO QD 201511/18/2018 Inactive levothyroxine 75 mcg tablet RxNorm: 662323 1 Tablet(s) PO QD 201507/27/2015 Inactive lisinopril 20 mg-hydrochlorothiazide 25 mg tablet RxNorm: 19 7887 TAKE ONE TABLET BY MOUTH EVERY MORNING. REPLACES PLAIN LISINOPRIL 03/06/2015 04/21/2017 Inactive lisinopril 20 mg-hydrochlorothiazide 25 mg tablet RxNorm: 19 7887 TAKE ONE TABLET BY MOUTH EVERY MORNING. REPLACES PLAIN LISINOPRIL 09/08/2014 03/05/2015 Inactive allopurinol 100 mg tablet RxNorm: 388398 1 Tablet(s) PO BID 015 10/09/2016 Inactive [SAVINGS FOR NON-COVERED YULIA GS -- BIN:[id number], PCN: [id number], Group: [id number], ID# [id number], Questions: . THIS IS NOT INSURANCE.] levothyroxine 50 mcg tablet RxNorm: 415961 1 Tablet(s) PO QD 201407/26/2015 Inactive [AttnRPh: Saving apply/adjud icate RxGRP:SG20 RxBIN:[id number] RxPCN: ID#:[id number]] Zegerid 40 mg-1.1 gram capsule RxNorm: 734931 1 Capsule(s) PO QD 03/03/2014 Inactive [AttnRPh: Saving apply/adjud icate RxGRP:SG20 RxBIN:[id number] RxPCN:HT ID#:[id number]] ondansetron 8 mg disintegrating tablet RxNorm: 662156 1 Tablet(s) PO Q8H as needed for [...] 07/28/2013 Inactive gabapentin 400 mg capsule RxNorm: 824102 1 Capsule(s) PO QPM 201207/28/2013 Inactive gabapentin 400 mg capsule RxNorm: 847594 1 Capsule(s) PO QPM 201206/26/2013 Inactive lisinopril 20 mg-hydrochlorothiazide 25 mg tablet RxNorm: 82 3971 1 Tablet(s) PO QAM replaces plain lisinopril 04/28/2013 07/29/2013 Inactive gabapentin 400 mg capsule RxNorm: 909390 1 Capsule(s) PO QPM 201204/27/2013 Inactive gabapentin 400 mg capsule RxNorm: 194457 1 Capsule(s) PO QPM 201203/10/2013 Inactive gabapentin 400 mg capsule RxNorm: 403570 1 Capsule(s) PO QPM 201203/14/2013 Inactive Lantus Solostar 100 unit/mL (3 mL) Sub-Q Insulin Pen RxNorm: 278980 20 Unit(s) SQ QPM 03/11/2013 03/15/2013 Inactive Toujeo SoloStar 300 unit/mL (1.5 mL) subcutaneous insulin pe n RxNorm: 9275027 35 Unit(s) SQ QAM No Start Date Active omeprazole 20 mg capsule,delayed release RxNorm: 707278 1 Capsu le(s) PO QD No Start Date Active isosorbide mononitrate ER 60 mg tablet,extended release 24 h r RxNorm: 910673 1 Tablet(s) PO QD No Start Date Active lisinopril 20 mg tablet RxNorm: 357492 1 Tablet(s) PO QD No Start Date Active Chlortab-4 oral RxNorm: 742335 oral No Start Date Activ e Eliquis 5 mg tablet RxNorm: 9321665 1 Tablet(s) PO BID No Start Date Active oxymetazoline-menthol 0.05 % nasal spray RxNorm: 6156029 [place] COTY No Start Date Active Patient states he ta kes every 10 hours metformin 500 mg tablet RxNorm: 004285 1 Tablet(s) PO BID No Start Da te Active levothyroxine 50 mcg tablet RxNorm: 435370 1 Tablet(s) PO QD No Start Date Active Plavix 75 mg tablet RxNorm: 067599 1 Tablet(s) PO QD No Start Date Active Norvasc 10 mg tablet RxNorm: 944423 1 Tablet(s) PO QHS No Start Date Active Zantac 150 mg tablet RxNorm: 931223 1 Tablet(s) PO QHS No Start Date Active Toujeo SoloStar 300 unit/mL (1.5 mL) subcutaneous insulin pe n RxNorm: 9867590 30 Unit(s) SQ QAM No Start Date Active glimepiride 4 mg tablet RxNorm: 221565 1 Tablet(s) PO QHS No Start Date 07/26/2015 Inactive allopurinol 100 mg tablet RxNorm: 457143 1 Tablet(s) PO BID No Star t Date 08/10/2014 Inactive Lantus Solostar 100 unit/mL (3 mL) subcutaneous insulin pen RxNorm: 482594 30 Unit(s) SQ QD No Start Date 08/03/2014 Inactive Levemir FlexTouch 100 unit/mL (3 mL) subcutaneous insulin pe n RxNorm: 315618 25 Unit(s) SQ QAM No Start Date 07/23/2015 Inactive Lantus 100 unit/mL Sub-Q RxNorm: 467747 30 Unit(s) SQ QHS No Start Date 05/25/2013 Inactive Lantus Solostar 100 unit/mL (3 mL) Sub-Q Insulin Pen RxNorm: 177853 20 Unit(s) SQ QPM No Start Date 03/10/2013 Inactive OneTouch Ultra Blue Test Strip RxNorm: Use 1 rigoberto t strip three times daily to check blood sugar (Dx:E11.65) No Start Date 12/06/2018 Inactive Levemir FlexTouch 100 unit/mL (3 mL) subcutaneous insulin pe n RxNorm: 892216 30- 35 Unit(s) SQ QAM No Start Date 07/23/2015 Inactive Levemir Flexpen 100 unit/mL (3 mL) solution subcutaneo us insulin pen RxNorm: 449256 20-25 Unit(s) SQ QD No Start Date 07/28/2013 Inactive indomethacin ER 75 mg capsule,extended release RxNorm: 26328 2 1 Capsule(s) PO QAM No Start Date 04/27/2013 Inactive indomethacin ER 75 mg capsule,extended release RxNorm: 30177 2 1 Capsule(s) PO QD No Start Date 01/16/2015 Inactive Vitamin D3 5,000 unit tablet RxNorm: 963432 1 Tablet(s) PO QD No St art Date 08/03/2014 Inactive Levemir Flexpen 100 unit/mL (3 mL) solution subcutaneo us insulin Pen RxNorm: 739087 20 Unit(s) SQ QHS No Start Date 03/10/2013 Inactive Vytorin 10 mg-40 mg tablet RxNorm: 0228292 1/2 Tablet(s) PO QD No S tart Date 04/20/2018 Inactive Toujeo SoloStar 300 unit/mL (1.5 mL) subcutaneous insulin pe n RxNorm: 5854813 35 Unit(s) SQ QAM No Start Date 07/22/2016 Inactive Lantus Solostar 100 unit/mL (3 mL) subcutaneous insulin pen RxNorm: 450630 20 Unit(s) SQ QD No Start Date 08/03/2014 Inactive aspirin 81 mg tablet RxNorm: 774750 1 Tablet(s) PO QD No Start Date 0 08/03/2014 Inactive metformin 500 mg tablet RxNorm: 753738 1 Tablet(s) PO BID No Start Date 07/28/2013 Inactive glimepiride 4 mg tablet RxNorm: 895283 1 Tablet(s) PO BID No Start Date 01/16/2015 Inactive glimepiride 4 mg tablet RxNorm: 104382 1 Tablet(s) PO QD No Start D ate 08/03/2014 Inactive levothyroxine 25 mcg tablet RxNorm: 932240 1 Tablet(s) PO QD No Sta rt Date 08/10/2014 Inactive doxycycline oral RxNorm: 14870 oral No Start Date 05/12/2019 Inac tive aspirin 81 mg tablet RxNorm: 545525 1 Tablet(s) PO QD No Start Date 0 07/21/2018 Inactive isosorbide mononitrate ER 60 mg tablet,extended release 24 h r RxNorm: 612853 1 Tablet(s) PO BID No Start Date 01/16/2015 Inactive metformin 500 mg tablet RxNorm: 472605 1 Tablet(s) PO BID No Start Date 04/27/2013 Inactive glimepiride 4 mg tablet RxNorm: 238759 1 Tablet(s) PO QPM No Start Date 02/21/2019 Inactive Vytorin 10-40 10 mg-40 mg tablet RxNorm: 4029365 1 Tablet(s) PO QHS No Start Date 08/03/2014 Inactive indomethacin 50 mg capsule RxNorm: 801102 1 Capsule(s) PO QHS No St art Date 01/16/2015 Inactive glimepiride 4 mg tablet RxNorm: 076308 1 Tablet(s) PO BID No Start Date 07/28/2013 Inactive Levemir FlexTouch 100 unit/mL (3 mL) subcutaneous insulin pe n RxNorm: 405989 20 Unit(s) SQ QD No Start Date 04/30/2015 Inactive lisinopril 20 mg tablet RxNorm: 068562 1 Tablet(s) PO BID No Start Date 04/27/2013 Inactive Lantus Solostar SubQ RxNorm: Subcutaneous No Start Date 03/15/2013 I nactive allopurinol 300 mg tablet RxNorm: 430891 1 Tablet(s) PO QD No Start Date 08/03/2014 Inactive Fish Oil 1,000 mg capsule RxNorm: 1 Capsule(s) PO QD No Start Date 02/21/2019 Inactive indomethacin 50 mg capsule RxNorm: 945578 1 Capsule(s) PO BID No St art Date 04/20/2018 Inactive levothyroxine 50 mcg tablet RxNorm: 164840 1 Tablet(s) PO QD No Sta rt Date 08/10/2014 Inactive glimepiride 4 mg tablet RxNorm: 870506 1 Tablet(s) PO BID No Start Date 03/15/2013 Inactive indomethacin 50 mg capsule RxNorm: 050471 1 Capsule(s) PO QHS No St art Date 04/27/2013 Inactive Medication Administered No Medication Administered data Immunizations Vaccine Codes Date Status Influenza CVX: 135 04/21/2018 Complete Influenza CVX: 135 04/22/2017 Complete Results Observation Observation Code Item Item Code Result Date S ervice Location [facility] 43240 Cholesterol 209 mg/dL 09/17/2016 Unkno wn [facility] 04165 Triglyceride 111 mg/dL 09/17/2016 Unkn own [facility] 28458 HDL CHOLESTEROL 50 mg/dL 09/17/2016 U nknown [facility] 76027 Chol/HDL Ratio 4.18 ratio 09/17/2016 U nknown [facility] 54575 NON-HDL Chol 159 mg/dL 09/17/2016 Unkn own [facility] 13936 LDL Cholesterol 137 mg/dL 09/17/2016 U nknown MEAN GLUC 4143294 Calc Mean Gluc 151 mg/dL 09/17/2016 Unkn own COMPREHENSIVE METABOLIC 43075 AST 23 U/L 2016 Unknown COMPREHENSIVE METABOLIC 64401 ALT 19 U/L 2016 Unknown [facility] 36631 BUN 15 mg/dL 2016 Unknown [facility]ENS[facility] MET[facility]OL[facility] 85917 ALBUMIN 4.3 g/dL 2016 Unknown COMPREHENSIVE METABOLIC 81671 CHLORIDE 103 mmol/L 09/17 Unknown COMPREHENSIVE METABOLIC 28499 Bili Total 0.6 mg/dL 09/17 Unknown COMPREHENSIVE METABOLIC 53930 ALK PHOS 60 U/L 2016 Unknown COMPREHENSIVE METABOLIC 69424 SODIUM 140 mmol/L 09/17 Unknown COMPREHENSIVE METABOLIC 55269 CREATININE 1.03 mg/dL 09/04 Unknown COMPREHENSIVE METABOLIC 33692 CALCIUM 9.5 mg/dL 2016 Unknown COMPREHENSIVE METABOLIC 86382 POTASSIUM 3.9 mmol/L 09/17 Unknown COMPREHENSIVE METABOLIC 79141 Total Protein 6.9 g/dL Unknown COMPREHENSIVE METABOLIC 61081 Glucose 94 mg/dL 2016 Unknown COMPREHENSIVE METABOLIC 02135 Bicarbonate 28 mmol/L 09/04 Unknown COMPREHENSIVE METABOLIC 74469 AGAP 9 mmol/L 2016 Unknown GFR CALC 1795452 GFR Non Afr Amr >60 mL/min 09/17/2016 Un known GFR CALC 8440000 GFR Afr Amr >60 mL/min 09/17/2016 Unknow n THYROID STIMULATING HORMONE 85613 TSH 4.260 uIU/mL 09/17/2016 Unknown GLYCOSYLATED HEMOGLOBIN TEST 01857 Hgb A1c 42989-3 6.9 % 0 09/17/2016 Unknown FREE T4 29951 T4 Free 1.02 ng/dL 09/17/2016 Unknown COMPLETE BLOOD COUNT 6859699 WBC 8.6 10e9/L 07/26/19 16 Unknown COMPLETE BLOOD COUNT 0946019 RBC 4.86 10e12/L 2015 Unknown COMPLETE BLOOD COUNT 3646198 HGB 14.6 g/dL 6 Unknown COMPLETE BLOOD COUNT 6133744 HCT DET 43.1 % 6 Unknown COMPLETE BLOOD COUNT 3684386 MCV 88.7 fL 6 Unknown COMPLETE BLOOD COUNT 9086784 MCH 30.0 pg 6 Unknown COMPLETE BLOOD COUNT 0666472 MCHC 33.9 g/dL 6 Unknown COMPLETE BLOOD COUNT [id number] PLT 267 10e9/L 07/26/19 16 Unknown COMPLETE BLOOD COUNT 0672697 MPV 11.5 fL 6 Unknown COMPLETE BLOOD COUNT 4098559 SAM % 64.8 % 6 Unknown COMPLETE BLOOD COUNT [id number] LY % 16.8 % 6 Unknown COMPLETE BLOOD COUNT 8298867 MON % 12.5 % 6 Unknown COMPLETE BLOOD COUNT 4794580 EOS % 5.6 % 6 Unknown COMPLETE BLOOD COUNT 7976184 BASO % 0.3 % 6 Unknown COMPLETE BLOOD COUNT 7246558 RDW 13.4 % 6 Unknown COMPLETE BLOOD COUNT 8010897 ABS SAM 5.57 10e9/L 016 Unknown COMPLETE BLOOD COUNT [id number] ABS LYMPH 1.44 10e9/L 016 Unknown COMPLETE BLOOD COUNT [id number] ABS MONO 1.08 10e9/L 016 Unknown COMPLETE BLOOD COUNT [id number] ABS EOS 0.48 10e9/L 016 Unknown COMPLETE BLOOD COUNT [id number] ABS BASO 0.03 10e9/L 016 Unknown COMPLETE BLOOD COUNT 7348184 RDW-SD 42.9 fL 6 Unknown PSA EQUIMOLAR AMTT 98368 PSA EQ 0.78 NG/ML 6 Unknown THYROID STIMULATING HORMONE 29012 TSH 5.292 uIU/ML 07/26/2015 Unknown GLYCOSYLATED HEMOGLOBIN TEST 02450 A1C HPLC 96972-0 7.0 % 0 07/26/2015 Unknown GFR CALC 3756588 GFR AA >60 ML/MIN 07/26/2015 Unknown GFR CALC 1539556 GFR NON-AA >60 ML/MIN 07/26/2015 Unknown [facility] 84722 HDL TEST 64 MG/DL 07/26/2015 Unknown [facility] 07394 TRIG 58 MG/DL 07/26/2015 Unknown [facility] 63553 TEST LDL 49 MG/DL 07/26/2015 Unknown [facility] 56221 CHOL 125 MG/DL 07/26/2015 Unknown [facility] 46929 RCHOL/HDL 1.95 RATIO 07/26/2015 Unknow n [facility] 36146 NON-HDL CH 61 MG/DL 07/26/2015 Unknow n COMPREHENSIVE METABOLIC 54858 AST 25 U/L 2015 Unknown COMPREHENSIVE METABOLIC 28948 ALT 23 IU/L 2015 Unknown COMPREHENSIVE METABOLIC 86361 BUN 18 MG/DL 2015 Unknown COMPREHENSIVE METABOLIC 77267 ALBUMIN 4.6 GM/DL 2015 Unknown COMPREHENSIVE METABOLIC 59864 CHLORIDE 100 MMOL/L 07/26 Unknown COMPREHENSIVE METABOLIC 34430 BILI TOT 0.5 MG/DL 2015 Unknown COMPREHENSIVE METABOLIC 37594 ALK PHOS 49 U/L 2015 Unknown COMPREHENSIVE METABOLIC 67802 SODIUM 137 MMOL/L 07/26 Unknown COMPREHENSIVE METABOLIC 10701 CREATININE 1.06 MG/DL 07/08 Unknown COMPREHENSIVE METABOLIC 71196 CALCIUM 9.5 MG/DL 2015 Unknown COMPREHENSIVE METABOLIC 24837 POTASSIUM 4.5 MMOL/L 07/26 Unknown COMPREHENSIVE METABOLIC 82007 PROT TOT 6.5 GM/DL 2015 Unknown COMPREHENSIVE METABOLIC 26320 Glucose 109 MG/DL 2015 Unknown COMPREHENSIVE METABOLIC 71086 BICARB 29 MMOL/L 2015 Unknown COMPREHENSIVE METABOLIC 89035 ANION GAP 8 MEQ/L 2015 Unknown FREE T4 02649 FREE T4 1.11 NG/DL 07/26/2015 Unknown [facility]ULTURE & SENSITIVITY 42850 PROTEIN UR NEG 015 Unknown [facility] SENSIT[facility] 58233 HEMGLBN UR TR 015 Unknown [facility] SENSITIVITY 03846 GLUCOSE UR NEG 015 Unknown [facility] SENSITIVITY 78323 KETONES UR NEG 015 Unknown CULTURE & SENSITIVITY 31176 PH U 6.5 01/25/20 15 Unknown CULTURE & SENSITIVITY 65776 SP GR U 1.013 01/25/20 15 Unknown CULTURE & SENSITIVITY 03283 BILRUBN UR NEG 015 Unknown CULTURE & SENSITIVITY 08608 LEUKO UR NEG 01/25/20 15 Unknown CULTURE & SENSITIVITY 23739 NITRITE UR NEG 015 Unknown MICR CUL? [id number] SP TO JOHANA? NO 01/24/2015 Unknown MICR CUL? [id number] APPEAR UR NORMAL 01/24/2015 Unknown MICR CUL? [id number] RBC/uL 2.2 01/24/2015 Unknown MICR CUL? 4301949 WBC/uL 2.8 01/24/2015 Unknown MICR CUL? 3526022 SQ EPI/uL 1.0 01/24/2015 Unknown MICR CUL? 3991232 HYALCST/uL 0.25 01/24/2015 Unknown MICR CUL? 5298504 WBC /HPF 1 01/24/2015 Unknown MICR CUL? [id number] RBC /HPF 0 01/24/2015 Unknown GLYCOSYLATED HEMOGLOBIN TEST 35921 A1C HPLC 82173-9 6.6 % 0 01/17/2015 Unknown COMPLETE BLOOD COUNT 1736404 WBC 10.1 10e9/L 015 Unknown COMPLETE BLOOD COUNT 1548055 RBC 4.60 10e12/L 2014 Unknown COMPLETE BLOOD COUNT 1567271 HGB 14.0 g/dL 5 Unknown COMPLETE BLOOD COUNT 9540044 HCT DET 39.9 % 5 Unknown COMPLETE BLOOD COUNT 4355059 MCV 86.7 fL 5 Unknown COMPLETE BLOOD COUNT 1556739 MCH 30.4 pg 5 Unknown COMPLETE BLOOD COUNT 7645840 MCHC 35.1 g/dL 5 Unknown COMPLETE BLOOD COUNT 3956964 PLT 252 10e9/L 01/18/20 15 Unknown COMPLETE BLOOD COUNT 0923385 MPV 11.4 fL 5 Unknown COMPLETE BLOOD COUNT 3968246 SAM % 72.9 % 5 Unknown COMPLETE BLOOD COUNT 5874763 LY % 13.6 % 5 Unknown COMPLETE BLOOD COUNT 1451271 MON % 10.2 % 5 Unknown COMPLETE BLOOD COUNT 5869255 EOS % 3.1 % 5 Unknown COMPLETE BLOOD COUNT 0748730 BASO % 0.2 % 5 Unknown COMPLETE BLOOD COUNT 6841929 RDW 13.6 % 5 Unknown COMPLETE BLOOD COUNT 1063711 ABS SAM 7.36 10e9/L 015 Unknown COMPLETE BLOOD COUNT 7643859 ABS LYMPH 1.37 10e9/L 015 Unknown COMPLETE BLOOD COUNT 7373177 ABS MONO 1.03 10e9/L 015 Unknown COMPLETE BLOOD COUNT [id number] ABS EOS 0.31 10e9/L 015 Unknown COMPLETE BLOOD COUNT [id number] ABS BASO 0.02 10e9/L 015 Unknown COMPLETE BLOOD COUNT 5566677 RDW-SD 42.4 fL 5 Unknown GFR CALC 3241745 GFR AA 51.0L ML/MIN 01/17/2015 Unknow n GFR CALC 6890352 GFR NON-AA 42.0L ML/MIN 01/17/2015 Unkno wn FREE T4 15190 FREE T4 1.30 NG/DL 01/17/2015 Unknown THYROID STIMULATING HORMONE 83130 TSH 4.029 uIU/ML 01/17/2015 Unknown COMPREHENSIVE METABOLIC 45744 AST 28 U/L 2014 Unknown COMPREHENSIVE METABOLIC 36320 ALT 25 IU/L 2014 Unknown COMPREHENSIVE METABOLIC 72499 BUN 21 MG/DL 2014 Unknown COMPREHENSIVE METABOLIC 24500 ALBUMIN 4.7 GM/DL 2014 Unknown COMPREHENSIVE METABOLIC 00404 CHLORIDE 102 MMOL/L 01/17 Unknown COMPREHENSIVE METABOLIC 44954 BILI TOT 0.6 MG/DL 2014 Unknown COMPREHENSIVE METABOLIC 06420 ALK PHOS 44 U/L 2014 Unknown COMPREHENSIVE METABOLIC 78633 SODIUM 137 MMOL/L 01/17 Unknown COMPREHENSIVE METABOLIC 16703 CREATININE 1.62 MG/DL 01/04 Unknown COMPREHENSIVE METABOLIC 81562 CALCIUM 9.7 MG/DL 2014 Unknown COMPREHENSIVE METABOLIC 29109 POTASSIUM 4.5 MMOL/L 01/17 Unknown COMPREHENSIVE METABOLIC 30288 PROT TOT 6.5 GM/DL 2014 Unknown COMPREHENSIVE METABOLIC 43891 Glucose 136 MG/DL 2014 Unknown COMPREHENSIVE METABOLIC 50599 BICARB 24 MMOL/L 2014 Unknown COMPREHENSIVE METABOLIC 94020 ANION GAP 11 MEQ/L 2014 Unknown VITAMIN B 12 49077 VIT B 12 482 PG/ML 01/17/2015 Unknow n URIC ACID 87482 URIC ACID 8.5 MG/DL 08/09/2014 Unknown COMPREHENSIVE METABOLIC 44338 AST 27 U/L 2014 Unknown COMPREHENSIVE METABOLIC 05038 ALT 26 IU/L 2014 Unknown COMPREHENSIVE METABOLIC 83185 BUN 17 MG/DL 2014 Unknown COMPREHENSIVE METABOLIC 38636 ALBUMIN 5.0 GM/DL 2014 Unknown COMPREHENSIVE METABOLIC 82277 CHLORIDE 101 MMOL/L 08/09 Unknown COMPREHENSIVE METABOLIC 33325 BILI TOT 0.7 MG/DL 2014 Unknown COMPREHENSIVE METABOLIC 46167 ALK PHOS 53 U/L 2014 Unknown COMPREHENSIVE METABOLIC 84825 SODIUM 136 MMOL/L 08/09 Unknown COMPREHENSIVE METABOLIC 73772 CREATININE 1.14 MG/DL 09/2014 Unknown COMPREHENSIVE METABOLIC 97526 CALCIUM 9.8 MG/DL 2014 Unknown COMPREHENSIVE METABOLIC 75629 POTASSIUM 4.1 MMOL/L 08/09 Unknown COMPREHENSIVE METABOLIC 29428 PROT TOT 7.5 GM/DL 2014 Unknown COMPREHENSIVE METABOLIC 12668 Glucose 110 MG/DL 2014 Unknown COMPREHENSIVE METABOLIC 67430 BICARB 30 MMOL/L 2014 Unknown COMPREHENSIVE METABOLIC 94026 ANION GAP 5 MEQ/L 2014 Unknown GFR CALC 4484416 GFR AA >60 ML/MIN 08/09/2014 Unknown GFR CALC 8820402 GFR NON-AA >60 ML/MIN 08/09/2014 Unknown FREE T4 80998 FREE T4 1.14 NG/DL 08/09/2014 Unknown GLYCOSYLATED HEMOGLOBIN TEST 33584 A1C HPLC 70712-1 6.8 % 0 08/09/2014 Unknown COMPLETE BLOOD COUNT [id number] WBC 5.9 10e9/L 08/09/19 15 Unknown COMPLETE BLOOD COUNT 2293528 RBC 5.04 10e12/L 2014 Unknown COMPLETE BLOOD COUNT 3538002 HGB 15.2 g/dL 5 Unknown COMPLETE BLOOD COUNT 1038556 HCT DET 44.3 % 5 Unknown COMPLETE BLOOD COUNT 8145225 MCV 87.9 fL 5 Unknown COMPLETE BLOOD COUNT 6556857 MCH 30.2 pg 5 Unknown COMPLETE BLOOD COUNT 4940071 MCHC 34.3 g/dL 5 Unknown COMPLETE BLOOD COUNT 6292501 PLT 262 10e9/L 08/09/19 15 Unknown COMPLETE BLOOD COUNT 7982988 MPV 10.9 fL 5 Unknown COMPLETE BLOOD COUNT 5968935 SAM % 58.7 % 5 Unknown COMPLETE BLOOD COUNT 9203931 LY % 21.5 % 5 Unknown COMPLETE BLOOD COUNT 8898675 MON % 14.0 % 5 Unknown COMPLETE BLOOD COUNT 4690889 EOS % 5.3 % 5 Unknown COMPLETE BLOOD COUNT 7626774 BASO % 0.5 % 5 Unknown COMPLETE BLOOD COUNT 4998203 RDW 13.1 % 5 Unknown COMPLETE BLOOD COUNT 1937697 ABS SAM 3.46 10e9/L 015 Unknown COMPLETE BLOOD COUNT [id number] ABS LYMPH 1.27 10e9/L 015 Unknown COMPLETE BLOOD COUNT 7110532 ABS MONO 0.83 10e9/L 015 Unknown COMPLETE BLOOD COUNT [id number] ABS EOS 0.31 10e9/L 015 Unknown COMPLETE BLOOD COUNT 1138876 ABS BASO 0.03 10e9/L 015 Unknown COMPLETE BLOOD COUNT 5668377 RDW-SD 41.2 fL 5 Unknown THYROID STIMULATING HORMONE 42427 TSH 5.395 uIU/ML 08/09/2014 Unknown LIPID GROUP 70357 HDL TEST 52 MG/DL 08/09/2014 Unknown LIP[facility] GROUP 57771 TRIG 113 MG/DL 08/09/2014 Unknown [facility] GROUP 09457 TEST LDL 158 MG/DL 08/09/2014 Unknown [facility] GROUP 34359 CHOL 233 MG/DL 08/09/2014 Unknown L[facility] GROUP 45307 RCHOL/HDL 4.48 RATIO 08/09/2014 Unknow n LIPID GROUP 08768 NON-HDL CH 181 MG/DL 08/09/2014 Unknow n COMPLETE BLOOD COUNT 1312684 WBC 6.8 10e9/L 09/09/19 14 Unknown COMPLETE BLOOD COUNT 7464708 RBC 5.18 10e12/L 2013 Unknown COMPLETE BLOOD COUNT [id number] HGB 15.2 g/dL 4 Unknown COMPLETE BLOOD COUNT [id number] HCT DET 44.7 % 4 Unknown COMPLETE BLOOD COUNT [id number] MCV 86.3 fL 4 Unknown COMPLETE BLOOD COUNT [id number] MCH 29.3 pg 4 Unknown COMPLETE BLOOD COUNT [id number] MCHC 34.0 g/dL 4 Unknown COMPLETE BLOOD COUNT [id number] PLT 236 10e9/L 09/09/19 14 Unknown COMPLETE BLOOD COUNT [id number] MPV 11.0 fL 4 Unknown COMPLETE BLOOD COUNT [id number] SAM % 58.2 % 4 Unknown COMPLETE BLOOD COUNT [id number] LY % 21.9 % 4 Unknown COMPLETE BLOOD COUNT [id number] MON % 12.5 % 4 Unknown COMPLETE BLOOD COUNT [id number] EOS % 7.3 % 4 Unknown COMPLETE BLOOD COUNT [id number] BASO % 0.1 % 4 Unknown COMPLETE BLOOD COUNT [id number] RDW 13.6 % 4 Unknown COMPLETE BLOOD COUNT [id number] ABS SAM 3.96 10e9/L 014 Unknown COMPLETE BLOOD COUNT [id number] ABS LYMPH 1.49 10e9/L 014 Unknown COMPLETE BLOOD COUNT [id number] ABS MONO 0.85 10e9/L 014 Unknown COMPLETE BLOOD COUNT [id number] ABS EOS 0.50 10e9/L 014 Unknown COMPLETE BLOOD COUNT [id number] ABS BASO 0.01 10e9/L 014 Unknown COMPLETE BLOOD COUNT [id number] RDW-SD 42.3 fL 201 4 Unknown COMPREHENSIVE METABOLIC 70768 AST 27 U/L 2013 Unknown COMPREHENSIVE METABOLIC 60656 ALT 30 IU/L 2013 Unknown COMPREHENSIVE METABOLIC 66332 BUN 16 MG/DL 2013 Unknown COMPREHENSIVE METABOLIC 69868 ALBUMIN 4.9 GM/DL 2013 Unknown COMPREHENSIVE METABOLIC 76528 CHLORIDE 99 MMOL/L 2013 Unknown COMPREHENSIVE METABOLIC 11917 BILI TOT 0.7 MG/DL 2013 Unknown COMPREHENSIVE METABOLIC 68060 ALK PHOS 53 U/L 2013 Unknown COMPREHENSIVE METABOLIC 91698 SODIUM 137 MMOL/L 09/08 Unknown COMPREHENSIVE METABOLIC 76650 CREATININE 1.01 MG/DL 11/2013 Unknown COMPREHENSIVE METABOLIC 86108 CALCIUM 10.0 MG/DL 09/08 Unknown COMPREHENSIVE METABOLIC 58160 POTASSIUM 4.4 MMOL/L 09/08 Unknown COMPREHENSIVE METABOLIC 29515 PROT TOT 7.1 GM/DL 2013 Unknown COMPREHENSIVE METABOLIC 20428 Glucose 148 MG/DL 2013 Unknown COMPREHENSIVE METABOLIC 18128 BICARB 30 MMOL/L 2013 Unknown COMPREHENSIVE METABOLIC 05376 ANION GAP 8 MEQ/L 2013 Unknown GFR CALC [id number] GFR AA >60 ML/MIN 09/08/2013 Unknown GFR CALC [id number] GFR NON-AA >60 ML/MIN 09/08/2013 Unknown FREE T4 03314 FREE T4 1.08 NG/DL 09/08/2013 Unknown GLYCOSYLATED HEMOGLOBIN TEST 18986 A1C HPLC 68801-6 7.3 % 0 09/08/2013 Unknown THYROID STIMULATING HORMONE 14012 TSH 5.454 uIU/ML 09/08/2013 Unknown LIPID GROUP 68591 HDL TEST 59 MG/DL 09/08/2013 Unknown LIPID GROUP 61062 TRIG 92 MG/DL 09/08/2013 Unknown LIPID GROUP 88332 TEST LDL 83 MG/DL 09/08/2013 Unknown LIPID GROUP 05581 CHOL 160 MG/DL 09/08/2013 Unknown LIPID GROUP 84476 RCHOL/HDL 2.71 RATIO 09/08/2013 Unknow n VITAMIN B 12 FOLIC ACID 60131|64640 VIT B 12 467 PG/ML 12/2012 Unknown VITAMIN B 12 FOLIC ACID 81479|91544 FOLIC ACID 12.2 NG/ML Unknown VITAMIN B 12 FOLIC ACID 23511|36230 VIT B 12 467 PG/ML 12/2012 Unknown THYROID STIMULATING HORMONE 52039 TSH 4.557 uIU/ML 03/12/2013 Unknown HEMOGLOBIN A1C (GLYCOSYLATED) 9259307 A1C HPLC 68625-3 7.6 % 03/12/2013 Unknown VITAMIN D TOTAL (25 HYDROXY) 19561 VIT D TOTL 17 NG/ML 03/12/2013 Unknown FREE T4 21904 FREE T4 1.07 NG/DL 03/12/2013 Unknown URIC ACID 39316 URIC ACID 5.2 MG/DL 03/12/2013 Unknown Procedures Procedure Codes Date THER/PROPH/DIAG INJ SC/IM CPT-4: 92490 05/13/2019 TRIAMCINOLONE ACET INJ NOS CPT-4: J3301 05/13/2019 DEXAMETHASONE SODIUM PHOS CPT-4: J1100 05/13/2019 THER/PROPH/DIAG INJ SC/IM CPT-4: 54704 02/22/2019 TRIAMCINOLONE ACET INJ NOS CPT-4: J3301 02/22/2019 FLU VACC PRSV FREE INC ANTIG 65 AND OLDER CPT-4: 50502 04/21/2018 ADMIN INFLUENZA VIRUS VAC CPT-4: G0008 04/21/2018 PRESCRIP TRANSMIT VIA ERX SY CPT-4: G8553 04/21/2018 DESTRUCT PREMALG LESION (Cryosurgery) CPT-4: 77101 FLU VACC PRSV FREE INC ANTIG 65 AND OLDER CPT-4: 18778 04/22/2017 ADMIN INFLUENZA VIRUS VAC CPT-4: G0008 04/22/2017 PRESCRIP TRANSMIT VIA ERX SY CPT-4: G8553 10/10/2016 PRESCRIP TRANSMIT VIA ERX SY CPT-4: G8553 08/29/2015 ROUTINE VENIPUNCTURE CPT-4: 76644 07/26/2015 ASSAY OF FREE THYROXINE CPT-4: 43603 07/26/2015 ASSAY THYROID STIM HORMONE CPT-4: 58745 07/26/2015 COMPREHEN METABOLIC PANEL CPT-4: 74273 07/26/2015 COMPLETE CBC W/AUTO DIFF WBC CPT-4: 42621 07/26/2015 LIPID PANEL CPT-4: 44270 07/26/2015 ASSAY OF PSA TOTAL CPT-4: 60179 07/26/2015 A1C HPLC CPT-4: 54649 07/26/2015 ROUTINE VENIPUNCTURE CPT-4: 76991 01/17/2015 ASSAY OF FREE THYROXINE CPT-4: 54970 01/17/2015 ASSAY THYROID STIM HORMONE CPT-4: 84754 01/17/2015 COMPREHEN METABOLIC PANEL CPT-4: 91010 01/17/2015 COMPLETE CBC W/AUTO DIFF WBC CPT-4: 25808 01/17/2015 A1C HPLC CPT-4: 32394 01/17/2015 VITAMIN B-12 CPT-4: 66324 01/17/2015 PPPS, subseq visit CPT-4: G0439 08/04/2014 PRESCRIP TRANSMIT VIA ERX SY CPT-4: G8553 02/18/2014 FLUZONE, 5ML (Medicare) CPT-4: Q2038 07/22/2013 ADMIN INFLUENZA VIRUS VAC CPT-4: G0008 07/22/2013 PRESCRIP TRANSMIT VIA ERX SY CPT-4: G8553 04/28/2013 ROUTINE VENIPUNCTURE CPT-4: 20885 03/12/2013 VITAMIN D TOTAL (25 HYDROXY) CPT-4: 35890 03/12/2013 VITAMIN B 12 FOLIC ACID CPT-4: 02010|84110 03/12/2013 A1C GLYCOSYLATED HEMOGLOBIN TEST CPT-4: 19594 013 ASSAY OF BLOOD/URIC ACID CPT-4: 32448 03/12/2013 ASSAY OF FREE THYROXINE CPT-4: 26050 03/12/2013 ASSAY THYROID STIM HORMONE CPT-4: 91059 03/12/2013 CUR TOBACCO NON-USER CPT-4: G8457 03/11/2013 [...] 1: 156/70 Code: 8480-6 BMI: 35.0 Code: 06030-4 Heart Rate 1: 68 bpm Height: 5'10" Respiratory Rate: 20 bpm SpO2: 95% Tempera ture: 36.5 (C) / 97.7 (F) Weight: 244 lbs 04/21/2018 Blood Pressure 1: 124/80 Code: 8480-6 BMI: 34.4 Code: 85436-6 Heart Rate 1: 80 bpm Height: 5'10" Respiratory Rate: 20 bpm SpO2: 96% Tempera ture: 37.0 (C) / 98.6 (F) Weight: 240 lbs 01/06/2018 Blood Pressure 1: 138/82 Code: 8480-6 BMI: 33.9 Code: 43693-3 Heart Rate 1: 96 bpm Height: 5'10" Respiratory Rate: 24 bpm SpO2: 98% Tempera ture: 35.9 (C) / 96.6 (F) Weight: 236 lbs 10/22/2017 Blood Pressure 1: 144/70 Code: 8480-6 BMI: 34.7 Code: 30454-5 Heart Rate 1: 72 bpm Height: 5'10" Respiratory Rate: 20 bpm SpO2: 96% Tempera ture: 36.9 (C) / 98.4 (F) Weight: 242 lbs 04/22/2017 Blood Pressure 1: 146/82 Code: 8480-6 BMI: 32.9 Code: 66083-9 Heart Rate 1: 104 bpm Height: 5'10" Respiratory Rate: 20 bpm SpO2: 95% Tempera ture: 36.9 (C) / 98.5 (F) Weight: 229 lbs 10/10/2016 Blood Pressure 1: 124/64 Code: 8480-6 BMI: 32.9 Code: 85306-9 Heart Rate 1: 64 bpm Height: 5'10" [...] 1: 146/90 Code: 8480-6 BMI: 34.1 Code: 64301-3 Heart Rate 1: 80 bpm Height: 5'10" Respiratory Rate: 20 bpm Temperature: 36 .8 (C) / 98.2 (F) Weight: 238 lbs 01/17/2015 Blood Pressure 1: 116/60 Code: 8480-6 BMI: 32.7 Code: 87696-7 Heart Rate 1: 84 bpm Height: 5'10" Respiratory Rate: 20 bpm Temperature: 36 .7 (C) / 98.0 (F) Weight: 228 lbs 09/29/2014 Blood Pressure 1: 136/78 Code: 8480-6 BMI: 33.9 Code: 87138-3 Heart Rate 1: 80 bpm Height: 5'10" Respiratory Rate: 20 bpm Temperature: 36 .6 (C) / 97.9 (F) Weight: 236 lbs 08/04/2014 Blood Pressure 1: 132/70 Code: 8480-6 BMI: 32.9 Code: 23554-6 Heart Rate 1: 72 bpm Height: 5'10" Respiratory Rate: 20 bpm Temperature: 36 .7 (C) / 98.0 (F) Weight: 229 lbs 02/18/2014 Blood Pressure 1: 124/82 Code: 8480-6 Heart Rate 1: 82 bpm Respiratory Rate: 18 bpm Temperature: 36.4 (C) / 97.5 (F) Weight: 232 lbs 07/29/2013 Blood Pressure 1: 146/80 Code: 8480-6 BMI: 34.1 Code: 61457-3 Heart Rate 1: 64 bpm Height: 5'10" Respiratory Rate: 20 bpm Temperature: 36 .9 (C) / 98.5 (F) Weight: 238 lbs 05/26/2013 Blood Pressure 1: 142/90 Code: 8480-6 BMI: 34.0 Code: 20380-0 Heart Rate 1: 84 bpm Height: 5'10" Respiratory Rate: 20 bpm Temperature: 36 .7 (C) / 98.0 (F) Weight: 237 lbs 04/28/2013 Blood Pressure 1: 118/78 Code: 8480-6 BMI: 32.9 Code: 18064-2 Heart Rate 1: 74 bpm Height: 5'10" Respiratory Rate: 20 bpm Temperature: 36 .1 (C) / 97.0 (F) Weight: 229 lbs 03/11/2013 Blood Pressure 1: 146/80 Code: 8480-6 BMI: 31.5 Code: 98196-9 Heart Rate 1: 80 bpm Height: 6' [...] care Encounters Encounter Performer Location Codes Date ([id number]) OFFICE/OUTPATIENT VISIT EST Diagnosis: Upper respiratory infection[ICD10: J06.9] Pennie Pizarro Fabrizio MOICARLOS SEdvin RENOSHAAN [employer] [facility] CPT-4: 15838 06/02/2019 ([id number]) OFFICE/OUTPATIENT VISIT EST Diagnosis: Sinusitis[ICD10: J32.9] Diagnosis: Allergic rhinitis[ICD10: J30.9] Pennie HANLINE SEdvin REED [employer] [facility] CPT-4: 80393 05/13/2019 ([id number]) OFFICE/OUTPATIENT VISIT EST Diagnosis: Pneumonia[ICD10: J18.9] Pennie HANLINE SEdvin AcsendoND [employer] [facility] CPT-4: 67079 04/26/2019 ([id number]) OFFICE/OUTPATIENT VISIT EST Diagnosis: Acute sinusitis, unspecified[ICD10: J01.90] Pennie HANLINE SEdvin RENONDER [employer] [facility] CPT-4: 09460 02/22/2019 ([id number]) OFFICE/OUTPATIENT VISIT EST Diagnosis: Cervicalgia[ICD10: M54.2] Xiomara Renoenlson LARA SEdvin RENO [facility] [employer] [facility] CPT-4: 42985 11/25/2018 ([id number]) OFFICE/OUTPATIENT VISIT EST Diagnosis: Acute sinusitis, unspecified[ICD10: J01.90] Diagnosis: Myalgia, unspecified site[ICD10: M79.10] Diagnosis: Cervicalgia[ICD10: M54.2] Xiomara MCGEE [facility] CPT-4: 86778 11/19/2018 ([id number]) OFFICE/OUTPATIENT VISIT EST Diagnosis: Low back pain[ICD10: M54.5] Diagnosis: Essential (primary) hypertension[ICD10: I10] Diagnosis: 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, 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] Diagnosis: Paroxysmal atrial fibrillation[ICD10: I48.0] [facility]: 15727 07/22/2018 ([id number]) OFFICE/OUTPATIENT VISIT EST Diagnosis: Type 2 diabetes mellitus with diabetic neuropathy, unspecified[ICD10: E11.40] Diagnosis: Hyperlipidemia, unspecified[ICD10: E78.5] Diagnosis: Essential (primary) hypertension[ICD10: I10] Diagnosis: Chronic kidney disease, stage 1[ICD10: N18.1] Diagnosis: Benign prostatic hyperplasia with lower urinary tract symptoms[ICD10: N40.1] Diagnosis: FLU VACCINE[ICD10: Z23] Xiomara Gan [facility] CPT-4: 15267 04/21/2018 OFFICE/OUTPATIENT VISIT EST Diagnosis: Type 2 diabetes mellitus with hyperglycemia[ICD10: E11.65] Diagnosis: Essential (primary) hypertension[ICD10: I10] Diagnosis: Mixed hyperlipidemia[ICD10: E78.2] Diagnosis: Other fatigue[ICD10: R53.83] Pennie Gan [facility] CPT-4: 24681 01/06/2018 ([id number]) OFFICE/OUTPATIENT VISIT EST Diagnosis: Type 2 diabetes mellitus with diabetic neuropathy, unspecified[ICD10: E11.40] Diagnosis: Essential (primary) hypertension[ICD10: I10] Diagnosis: Pain in right thigh[ICD10: M79.651] Diagnosis: Pain in left leg[ICD10: M79.605] Diagnosis: Localized swelling, mass and lump, left lower limb[ICD10: R22.42] Diagnosis: OSTEOARTHRISIS MULTI SITES[ICD10: M19.90] Diagnosis: FLU VACCINE[ICD10: Z23] Xiomara Gan [facility] CPT-4: 65524 04/22/2017 ([id number]) OFFICE/OUTPATIENT VISIT EST Diagnosis: Essential (primary) hypertension[ICD10: I10] Diagnosis: Type 2 diabetes mellitus with hyperglycemia[ICD10: E11.65] Diagnosis: Angina pectoris, unspecified[ICD10: I20.9] Xiomara Renoshaankendrick HANXIOMARA Elvia BETTENCOURT [employer] [facility] CPT-4: 46916 10/10/2016 ([id number]) OFFICE/OUTPATIENT VISIT EST Diagnosis: Cough[ICD10: R05] Diagnosis: Wheezing[ICD10: R06.2] Diagnosis: Chronic obstructive pulmonary disease, unspecified[ICD10: J44.9] Shannan HANLINE DelphineEdvin KODAK [employer] [facility] CPT-4: 84934 08/31/2015 OFFICE/OUTPATIENT VISIT EST Diagnosis: Acute bronchitis, unspecified[ICD10: J20.9] Diagnosis: Wheezing[ICD10: R06.2] Kelsie RobersonChloekarena HANLINE DelphineEdvin DIVYA [employer] [facility] CPT-4: 54847 08/29/2015 ([id number]) OFFICE/OUTPATIENT VISIT EST Diagnosis: Type 2 diabetes mellitus with diabetic neuropathy, unspecified[ICD10: E11.40] Diagnosis: Hyperlipidemia, unspecified[ICD10: E78.5] Diagnosis: Essential (primary) hypertension[ICD10: I10] Diagnosis: Encounter for general adult medical examination without abnormal findings[ICD10: Z00.00] Xiomara Renoshaankendrick RENAEXIOMARA DelphineEdvin KODAK [employer] [facility] CPT-4: 93344 07/26/2015 OFFICE/OUTPATIENT VISIT EST Diagnosis: Type 2 diabetes mellitus with hyperglycemia[ICD10: E11.65] Diagnosis: Unspecified osteoarthritis, unspecified site[ICD10: M19.90] Diagnosis: Other instability, right knee[ICD10: M25.361] Kelsie RobersonChloekarena HANLINE DelphineEdvin KODAK [employer] [facility] CPT-4: 88930 07/24/2015 ([id number]) OFFICE/OUTPATIENT VISIT EST Diagnosis: Pain in leg, unspecified[ICD10: M79.606] Diagnosis: Type 2 diabetes mellitus with diabetic neuropathy, unspecified[ICD10: E11.40] Xiomara LARA DelphineEdvin KODAK [employer] [facility] CPT-4: 48673 05/01/2015 ([id number]) OFFICE/OUTPATIENT VISIT EST Diagnosis: MALAISE AND FATIGUE[ICD9: 780.79] Diagnosis: 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, 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] Diagnosis: CAD[ICD9: 414.00] Diagnosis: ANEMIA NOS[ICD9: 285.9] Xiomara [facility] CPT-4: 71377 01/17/2015 ([id number]) OFFICE/OUTPATIENT VISIT EST Diagnosis: Skin lesion[ICD9: 709.9] Xiomara HAND [facility] CPT-4: 18387 09/29/2014 OFFICE/OUTPATIENT VISIT EST Diagnosis: GASTROENTERITIS[ICD9: 558.9] Diagnosis: GERD[ICD9: 530.81] Kelsiesa Grubbs [facility]: 32598 02/18/2014 ([id number]) OFFICE/OUTPATIENT VISIT EST Diagnosis: 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I, UNCONTROLLED[ICD9: 250.02] [facility]: 90000 07/29/2013 ([id number]) OFFICE/OUTPATIENT VISIT EST Diagnosis: FLU VACCINE[ICD9: V04.81] Xiomara MAGALLON [facility] CPT-4: 68503 07/22/2013 ([id number]) OFFICE/OUTPATIENT VISIT EST Diagnosis: 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I, UNCONTROLLED[ICD9: 250.02] Diagnosis: HYPERTENSION[ICD9: 401.9] Xiomara MAGALLON [facility] CPT-4: 13541 05/26/2013 ([id number]) OFFICE/OUTPATIENT VISIT EST Diagnosis: MONONEURITIS[ICD9: 355.9] Diagnosis: RESTLESS LEGS SYNDROME[ICD9: 333.94] Diagnosis: HYPERTENSION[ICD9: 401.9] Diagnosis: CAD[ICD9: 414.00] Diagnosis: Weakness[ICD9: 780.79] Xiomara MCBRIDEShaheen [facility] CPT-4: 52967 04/28/2013 ([id number]) OFFICE/OUTPATIENT VISIT EST Diagnosis: 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[ICD9: 250.01] Diagnosis: MONONEURITIS[ICD9: 355.9] Diagnosis: HYPERLIPIDEMIA NEC/NOS[ICD9: 272.4] Diagnosis: CAD[ICD9: 414.00] Xiomara LARA Elvia BETTENCOURT DO [employer] CPT-4: 95699 03/12/2013 OFFICE/OUTPATIENT VISIT NEW Diagnosis: CAD[ICD9: 414.00] Diagnosis: HYPERLIPIDEMIA NEC/NOS[ICD9: 272.4] Diagnosis: HYPERTENSION[ICD9: 401.9] Diagnosis: Neuropathy[ICD9: 355.9] Diagnosis: RESTLESS LEGS SYNDROME[ICD9: 333.94] Xiomara JACKMAN DelphineEdvin KODAK [employer] CPT-4: 57180 03/11/2013 Plan of Care Planned Activity Notes [...] ICD-10 : J06.9 06/02/2019 Appointment: Pennie Pizarro [address] [place] [phone] [place] ACUTE ILLNESS 06/02/2019 Visit Diagnosis Plan: [...] : J30.9 05/13/2019 Appointment: Pennie Pizarro [address] [place], [place] [id number] [place] ACUTE ILLNESS 05/13/2019 Appointment: [facility]tencourt [facility] [phone] [facility] [facility] 04/27/2019 Visit Diagnosis Plan: Pneumonia Discussion: will obtai n records from urgent care. instructed to finish out doxy. no rhonchi or crackles auscultated. symbicort sample given to patient with instructions to use bid. call office later this week with new or worsening symptoms. ICD-9 : 486 ICD-10 : J18.9 04/26/2019 Appointment: Pennie Pizarro [address] [place] [place], [place] [phone] FOLLOW UP 04/26/2019 Visit Diagnosis Plan: Acute [...] ICD-10 : J01.90 02/22/2019 Appointment: Pennie Pizarro [address] [place] [address] ACUTE ILLNESS 02/22/2019 Patient Education: prednisone- [employer] Coupon [phone] [email or web address] Completed 02/22/2019 Visit Diagnosis Plan: Cervicalgia Discussion: Check Ce rvical Spine X-ray Will likely need PT ICD-9 : 723.1 ICD-10 : M54.2 11/25/2018 Appointment: Xiomara Bettencourt WPtel: [phone] [facility] ACUTE ILLNESS 11/25/2018 Visit Plan: Saline nasal flushes prn. Ty lenol/Motrin prn headache. Notify if persists/symptoms worsening. 11/19/2018 Visit Diagnosis Plan: Myalgia, unspecified site Discus jaswinder: May be due to levaquin Hold simvastatin Add Vitamin D3 2000u daily Baclofen 10mg po q HS Follow Up: 1 weeks ICD-9 : 729.1 ICD-10 : M79.10 11/19/2018 Visit Diagnosis Plan: Acute sinusitis, unspecified Dis cussion: Improved ICD-9 : 461.9 ICD-10 : J01.90 11/19/2018 Visit Diagnosis Plan: Cervicalgia Discussion: May be d ue to levaquin or from strain of neck from coughing ICD-9 : 723.1 ICD-10 : M54.2 11/19/2018 Visit NOS Plan: Plan Notes: Saline nasal flu shes prn. Tyle... 11/19/2018 Appointment: Xiomara Bettencourt WPtel: [address] [place], [place] [id number] ACUTE ILLNESS 11/19/2018 Patient Education: baclofen- [employer] Coupon [phone] [id number] [email or web address]/[email or web address] Completed 11/19/2018 Visit Diagnosis Plan: Paroxysmal atrial [...] : I10 07/22/2018 Appointment: Xiomara Bettencourt WPtel: [address] [place], [place] [phone] FOLLOW UP 07/22/2018 Visit Diagnosis Plan: Benign prostatic h yperplasia with lower urinary tract symptoms Discussion: Trial of flomax Call in [facility] mo [facility] on how doing Follow Up: 4 months [...] I10 04/21/2018 Appointment: Xiomara Bettencourt WPtel: [phone] [facility] FOLLOW UP 04/21/2018 Patient Education: Patient [...] ICD-10 : R53.83 01/06/2018 Appointment: Pennie Pizarro [address] [place] [place] [phone] MEDICATION REVIEW 01/06/2018 Patient Education: Patient Medication Summary Completed 01/06/2018 Appointment: Xiomara Bettencourt [facility]Ptel[facility] [phone] [facility] NO SHOW 01/05/2018 Appointment: Xiomara Bettencourt: [address] [place], [place] [phone] [place] CANCELED 12/31/2017 Visit Diagnosis Plan: Actinic keratosis Discussion: Cr yotherapy as above but will see derm if lesions do not resolve ICD-9 : 702.0 ICD-10 : L57.0 10/22/2017 Appointment: Xiomara Bettencourt WPtel: [address] [place], [place] [phone] ACUTE ILLNESS 10/22/2017 Patient Education: Patient Medication [...] M19.90 04/22/2017 Visit Diagnosis Plan: Pain in left [...] : E11.40 04/22/2017 Appointment: Xiomara Bettencourt WPtel: [address] [place], [place] [phone] FOLLOW UP 04/22/2017 Patient Education: Patient Medication Summary Completed 04/22/2017 Patient Education: Patient Medication Summary Completed 04/16/2017 Care Plan: COMPREHEN METABOLIC PANEL SERGEI NC : 34016-3 Pending 04/16/2017 Care Plan: LIPID PANEL LOINC : 89546-2 Pending 04/16/2017 Care Plan: CBC Pending 04/16/2017 Care Plan: A1C HPLC LOINC : 38552-8 Pending 04/16/2017 Referral: Inocencio Goodson WPtel: [phone] [facility] [id number] [place] Referral Appointment Confirmed 10/14/2016 Visit Diagnosis Plan: Type 2 diabetes mellitus with hy perglycemia Discussion: Continue toujeo Accuchecks BID Follow Up: 4 months ICD-9 : 250.02 ICD-10 : E11.65 10/10/2016 Visit Diagnosis Plan: Angina pectoris, unspecified Dis cussion: Continue imdur and see cardiology To ER if chest pain returns ICD-9 : 413.9 ICD-10 : I20.9 10/10/2016 Appointment: Xiomara Bettencourt [facility]Ptel[facility] [phone] [facility] FOLLOW UP 10/10/2016 Patient Education: Patient Medication Summary Completed 10/10/2016 Patient Education: Patient Medication Summary Completed 09/16/2016 Care Plan: COMPREHEN METABOLIC PANEL SERGEI NC : 14747-7 Pending 09/16/2016 Care Plan: ASSAY THYROID STIM HORMONE Pen ding 09/16/2016 Care Plan: ASSAY OF FREE THYROXINE Pendin g 09/16/2016 Care Plan: LIPID PANEL LOINC : 34870-9 Pending 09/16/2016 Care Plan: CBC Pending 09/16/2016 Care Plan: A1C HPLC LOINC : 43121-8 Pending 09/16/2016 Visit Plan: CXR now to further evaluate symptoms Suspect viral since he has been on 2 rounds of antibiotics If chronic lung disease evident, 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 with instructions on use Continue oral prednisone, would like to avoid injection if possible considering his DM status and he is stable right now Continue albuterol PRN Will call with CXR results 08/31/2015 Appointment: [facility] [facility] 08/31 confirmed- SP ACUTE ILLNESS 08/31/2015 Patient Education: Patient Medication Summary Completed 08/31/2015 Visit Plan: Albuterol INH via SVN every 4 hours Prednisone 20 mg PO BID Notify for worsening symptoms 08/29/2015 Appointment: Kelsie Grubbs WPtel: [address] [place], [place] [phone] ACUTE ILLNESS 08/29/2015 Patient Education: Patient Medication Summary Completed 08/29/2015 Appointment: Xiomara Bettencourt WPtel: [address] [place], [place] [phone] LAB 07/26/2015 Patient Education: Patient Medication Summary Completed 07/26/2015 Visit Plan: Return in am for fasting lab s - CBC, CMP, TSH, Free T4, HgbA1C Change Levemir to Toujeo - Continue 35 Units q am - sample given Start physical Therapy for increased quadriceps strengthening and decreased pain in knees, bilaterally. 07/24/2015 Appointment: Kelsie Grubbs WPtel: [address] [place], [place] [phone] 07/21 appt confirmed cn FOLLOW UP 07/24/19 Appointment: Kelsie Grubbs WPtel: [address] [place], [place] [phone] FOLLOW UP 07/24/2015 Patient Education: Patient Medication [...] insulin 05/01/2015 Appointment: Xiomara Bettencourt WPtel: [address] [place], [place] [phone] 04/28 confirmed~sl ACUTE ILLNESS 05/01/2015 Patient Education: Patient Medication Summary Completed 05/01/2015 Patient Education: Patient Medication Summary Completed 01/19/2015 Care Plan: URINALYSIS AUTO W/O SCOPE SERGEI NC : 46178-0 Pending 01/19/2015 Visit Plan: I have went through his medi cations in past and stopped meds but he adjusts his meds on his own and has restarted some Stop Amaryl Once again discussed not using indomethacin routinely due to taking plavix and aspirin daily and retirement use is dangerous Check CBC, CMP, TSH, free T4, B12 and HbA1C Patient has seen Cardiology recently but no cardiac cath done--had chemical stress test 01/17/2015 Appointment: Xiomara Bettencourt WPtel: [address] [place] [address] 01/16 [facility] ACUTE ILLNESS 01/17/2015 Patient Education: Patient Medication Summary Completed 01/17/2015 Visit Plan: See Dr. Garvin for removal 09/29/2014 Appointment: Xiomara Bettencourt WPtel: [address] [place] [address] ACUTE ILLNESS 09/29/2014 Referral: Colt Garvin WPtel: [address] [place] [address] Referral Initiated 09/29/2014 Patient Education: Patient Medication Summary Completed 09/29/2014 Visit Plan: Check CBC, CMP, TSH, free T4 , HbA1C, Lipids Accuchecks daily alternating times Patient has been adjusting own meds and has not taken any cholesterol meds for sometime Will check into surgery on right [facility] at [facility] Check carotid dopplers 08/04/2014 Appointment: Xiomara Bettencourt WPtel: [address] [place] [address] Annual Well Visit 08/04/2014 Patient Education: Patient Medication Summary Completed 08/04/2014 Appointment: Kelsie Grubbs WPtel: [address] [place] [address] ACUTE ILLNESS 02/18/2014 Patient Education: Patient Medication Summary Completed 02/18/2014 Patient Education: [facility] - Saving AutoInj - 18+ - Dynamic Portal ID Completed 02/18/2014 Appointment: Xiomara Bettencourt WPtel: [address] [place] [address] LAB 09/08/2013 Visit Plan: Check fasting lab in 1mo Con tinue Lantus and accuchecks at least BID 07/29/2013 Appointment: Xiomara Bettencourt WPtel: [address] [place] [address] FOLLOW UP 07/29/2013 Patient Education: Patient Medication Summary Completed 07/29/2013 Appointment: Xiomara Bettencourt WPtel: [address] [place] [address] [place] INJECTION 07/22/2013 Patient Education: Patient Medication Summary Completed 07/22/2013 Visit Plan: Pt has been self-adjusting m eds Stop metformin and amaryl Use Levemir 25u sc BID and call in 1wk with BS readings 05/26/2013 Appointment: Xiomara Bettencourt WPtel: [address] [place] [address] FOLLOW UP 05/26/2013 Patient Education: Patient Medication Summary Completed 05/26/2013 Visit Plan: DC Metformin Increase Lantus to 30u sc daily Change lisinopril to lisinopril HCT 20/25mg q AM Continue Gabapentin at current dose 04/28/2013 Appointment: Xiomara Bettencourt WPtel: [address] [place] [address] FOLLOW UP 04/28/2013 Patient Education: Patient Medication Summary Completed 04/28/2013 Appointment: Xiomara Bettencourt WPtel: [address] [place] [address] LAB 03/12/2013 Patient Education: Patient Medication Summary Completed 03/12/2013 Visit Plan: Trial of neurontin 400mg q H S Obtain most recent lab results Change levemir to lantus per pt request Pt goes for sleep study tonite 03/11/2013 Appointment: Xiomara Bettencourt WPtel: [address] [place] [address] 02/01paperwork mailed 03/10 confirmed with spouse NEW PATIENT 11/2012 Patient Education: Patient Medication Summary Completed 03/11/2013 Instructions Comment . Saline nasal flushes prn. Tylenol/Motr in prn headache. Notify if persists/symptoms worsening. . 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 Check [...] pt request Pt goes for sleep study nat Medical Equipment No Medical Equipment data Health Concerns Section Health Concerns data not found Goals Section Goals data not found Interventions Section Interventions data not found Health Status Evaluations/Outcomes Section Health Status Evaluations/Outcomes data not found Advance Directives No Advance Directive data
--- OUTSIDE RECORDS SUMMARY | 2020-02-02 21:48 | XMS REPORT | CCD ---
Author Author Sheng Bettencourt D.O. 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 Medicare Part B [id number] Unknown Family history Mother Diagnosis Age At Onset Diabetes mellitus Type 2 Unknown Hypercholesterolemia Unknown Father Diagnosis Age At Onset No Family Disease Entered N/A Social History Social History Element Codes Description Effective Dates Marital status Unknown M arried 03/11/2013 Number of children Unknown 4 03/11/2013 Employment Unknown Retir ed 03/11/[address]: 5121306 Former smoker 03/11/[address]: 101259 Currently drinks alcohol Socially 03/11/2013 Has the patient ever used illegal drugs? Unknown Has never used illegal drugs 013 Allergies, Adverse Reactions, Alerts Substance Reaction Codes Entered Date Inactivated Date Status * NO KNOWN FOOD KAMLA RGIES Unknown 03/11/2013 No Inactive Date Active * NO KNOWN ENVIRONME NTAL ALLERGIES Unknown 03/11/2013 No Inactive Date Active _ Unknown 03/11/2013 No Inactive Date Active Past Medical History Illness Codes Condition Status Onset Date Resolved Date Acute sinusitis, uns pecified ICD-9: 461.9 ICD-10: J01.90 Active 11/19/2018 Unknown Cervicalgia ICD-9: 723.1 ICD-10: M54.2 Active 11/19/2018 Unknown Myalgia, unspecified site ICD-9: 729.1 ICD-10: M79.10 Active 11/19/2018 Unknown 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, UNCONTROLLED ICD-9: 250.03 ICD-10: E10.9 Active 01/16/2015 Unknown Essential (primary) hypertension ICD-9: 401.9 ICD-10: I10 Active 08/04/2014 Unknown Low back pain ICD-9: 724.2 ICD-10: M54.5 Active 07/22/2018 Unknown Paroxysmal atrial fi brillation ICD-9: 427.31 ICD-10: I48.0 Active 07/22/2018 Unknown Benign prostatic hyp erplasia with lower urinary tract symptoms ICD-9: 600.21 ICD-10: N40.1 Active 04/21/2018 Unknown Chronic kidney disea se, stage 1 ICD-9: 585.1 ICD-10: N18.1 Active 04/21/2018 Unknown FLU VACCINE ICD-9: V04.81 ICD-10: Z23 Active 04/22/2017 Unknown Hyperlipidemia, unsp ecified ICD-9: 272.4 ICD-10: E78.5 Active 08/04/2014 Unknown Type 2 diabetes herve itus with diabetic neuropathy, unspecified ICD-9: 250.60 ICD-10: E11.40 Active 07/25/2015 Unknown Mixed hyperlipidemia ICD-9: 272.2 ICD-10: E78.2 Active 01/06/2018 Unknown Other fatigue ICD-9: 780.79 ICD-10: R53.83 Active 09/16/2016 Unknown Type 2 diabetes herve itus with hyperglycemia ICD-9: 250.02 ICD-10: E11.65 Active 08/04/2014 Unknown Actinic keratosis ICD-9: 702.0 ICD-10: L57.0 Active 10/22/2017 Unknown Localized swelling, mass and lump, left lower limb ICD-9: 782.2 ICD-10: R22.42 Active 04/22/2017 Unknown OSTEOARTHRISIS MULTI SITES ICD-9: 715.98 ICD-10: M19.90 Active 04/22/2017 Unknown Pain in left leg ICD-9: 729.5 ICD-10: M79.605 Active 04/22/2017 Unknown Pain in right thigh ICD- 9: 729.5 ICD-10: M79.651 Active 04/22/2017 Unknown Anemia, unspecified ICD- 9: 285.9 ICD-10: D64.9 Active 09/16/2016 Unknown Angina pectoris, uns pecified ICD-9: 413.9 ICD-10: I20.9 Active 10/10/2016 Unknown Chronic obstructive pulmonary disease, unspecified ICD-9: 496 ICD-10: J44.9 Active 08/30/2015 Unknown Cough ICD-9: 786.2 ICD-10: R05 Active 08/30/2015 Unknown Wheezing ICD-9: 786.07 ICD-10: R06.2 Active 08/30/2015 Unknown Acute bronchitis, un specified ICD-9: 466.0 ICD-10: J20.9 Active 08/28/2015 Unknown Encounter for genera l adult medical examination without abnormal findings ICD-9: V70.0 ICD-10: Z00.00 Active 08/04/2014 Unknown Other instability, r ight knee ICD-9: 718.86 ICD-10: M25.361 Active 07/23/2015 Unknown Unspecified osteoart hritis, unspecified site ICD-9: 716.90 ICD-10: M19.90 Active 07/23/2015 Unknown Pain in leg, unspeci fied ICD-9: 729.5 ICD-10: M79.606 Active 05/08/2015 Unknown RENAL INSUFFICIENCY - ACUTE ICD-9: 593.9 Active 01/04 Unknown ANEMIA NOS ICD-9: 285.9 Active 01/16/2015 Unknow n MALAISE AND FATIGUE ICD- 9: 780.79 Active 04/28/2013 Unknown Skin lesion ICD-9: 709.9 Active 09/29/2014 Unknow n CAD ICD-9: 414.00 Active 08/04/2014 Unknow n 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I, UNCONTROLLED ICD-9: 250.02 Active 08/04/2014 Unknown HYPERLIPIDEMIA NEC/NOS ICD-9: 272.4 Active 08/04/2014 Unknown HYPERTENSION ICD-9: 401.9 Active 08/04/2014 Unknown Medical non-compliance ICD-9: V15.81 Active 08/04/2014 Unknown ROUTINE MEDICAL EXAM ICD-9: V70.0 Active 08/04/2014 Unknown GASTROENTERITIS ICD-9: 558.9 Active 02/18/2014 Unknown GERD ICD-9: 530.81 Active 02/18/2014 Unknow n FLU VACCINE ICD-9: V04.81 Active 07/22/2013 Unknown 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 ICD-9: 250.01 Active 12/2012 Unknown Hypertension Unknown Active 03/11/2013 Unknow n Neuropathy ICD-9: 355.9 Active 03/11/2013 Unknow n RESTLESS LEGS SYNDROME ICD-9: 333.94 Active 03/11/2013 Unknown Problems Condition Codes Effectiv e Dates Condition Status Acute sinusitis, uns pecified ICD-9: 461.9 ICD-10: J01.90 11/19/2018 Active Cervicalgia ICD-9: 723.1 ICD-10: M54.2 11/19/2018 Active Myalgia, unspecified site ICD-9: 729.1 ICD-10: M79.10 11/19/2018 Active 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, UNCONTROLLED ICD-9: 250.03 ICD-10: E10.9 01/16/2015 Active Essential (primary) hypertension ICD-9: 401.9 ICD-10: I10 08/04/2014 Active Low back pain ICD-9: 724.2 ICD-10: M54.5 07/22/2018 Active Paroxysmal atrial fi brillation ICD-9: 427.31 ICD-10: I48.0 07/22/2018 Active Benign prostatic hyp erplasia with lower urinary tract symptoms ICD-9: 600.21 ICD-10: N40.1 04/21/2018 Active Chronic kidney disea se, stage 1 ICD-9: 585.1 ICD-10: N18.1 04/21/2018 Active FLU VACCINE ICD-9: V04.81 ICD-10: Z23 04/22/2017 Active Hyperlipidemia, unsp ecified ICD-9: 272.4 ICD-10: E78.5 08/04/2014 Active Type 2 diabetes herve itus with diabetic neuropathy, unspecified ICD-9: 250.60 ICD-10: E11.40 07/25/2015 Active Mixed hyperlipidemia ICD-9: 272.2 ICD-10: E78.2 01/06/2018 Active Other fatigue ICD-9: 780.79 ICD-10: R53.83 09/16/2016 Active Type 2 diabetes herve itus with hyperglycemia ICD-9: 250.02 ICD-10: E11.65 08/04/2014 Active Actinic keratosis ICD-9: 702.0 ICD-10: L57.0 10/22/2017 Active Localized swelling, mass and lump, left lower limb ICD-9: 782.2 ICD-10: R22.42 04/22/2017 Active OSTEOARTHRISIS MULTI SITES ICD-9: 715.98 ICD-10: M19.90 04/22/2017 Active Pain in left leg ICD-9: 729.5 ICD-10: M79.605 04/22/2017 Active Pain in right thigh ICD- 9: 729.5 ICD-10: M79.651 04/22/2017 Active Anemia, unspecified ICD- 9: 285.9 ICD-10: D64.9 09/16/2016 Active Angina pectoris, uns pecified ICD-9: 413.9 ICD-10: I20.9 10/10/2016 Active Chronic obstructive pulmonary disease, unspecified ICD-9: 496 ICD-10: J44.9 08/30/2015 Active Cough ICD-9: 786.2 ICD-10: R05 08/30/2015 Active Wheezing ICD-9: 786.07 ICD-10: R06.2 08/30/2015 Active Acute bronchitis, un specified ICD-9: 466.0 ICD-10: J20.9 08/28/2015 Active Encounter for genera l adult medical examination without abnormal findings ICD-9: V70.0 ICD-10: Z00.00 08/04/2014 Active Other instability, r ight knee ICD-9: 718.86 ICD-10: M25.361 07/23/2015 Active Unspecified osteoart hritis, unspecified site ICD-9: 716.90 ICD-10: M19.90 07/23/2015 Active Pain in leg, unspeci fied ICD-9: 729.5 ICD-10: M79.606 05/08/2015 Active RENAL INSUFFICIENCY - ACUTE ICD-9: 593.9 01/18/2015 Active ANEMIA NOS ICD-9: 285.9 01/16/2015 Active MALAISE AND FATIGUE ICD- 9: 780.79 04/28/2013 Active Skin lesion ICD-9: 709.9 09/29/2014 Active CAD ICD-9: 414.00 08/04/2014 Active 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I, UNCONTROLLED ICD-9: 250.02 08/04/2014 Active HYPERLIPIDEMIA NEC/NOS ICD-9: 272.4 08/04/2014 Active HYPERTENSION ICD-9: 401.9 08/04/2014 Active Medical non-compliance ICD-9: V15.81 08/04/2014 Active ROUTINE MEDICAL EXAM ICD-9: V70.0 08/04/2014 Active GASTROENTERITIS ICD-9: 558.9 02/18/2014 Active GERD ICD-9: 530.81 02/18/2014 Active FLU VACCINE ICD-9: V04.81 07/22/2013 Active 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 ICD-9: 250.01 03/12/2013 Active Hypertension Unknown 03/11/2013 Active Neuropathy ICD-9: 355.9 03/11/2013 Active RESTLESS LEGS SYNDROME ICD-9: 333.94 03/11/2013 Active Medications Medication Codes Instruc tions Start Date Stop Date Sta tus Fill Instructions Flomax 0.4 mg capsule RxNorm: 530138 TAKE TWO CAPSULES BY MOUTH EVERY EVENING 03/19/2019 11/13/2019 Ac tive Augmentin 500 mg-125 mg tablet RxNorm: 660033 1 Tablet(s) PO BID 02/22/2019 03/03/2019 Inactive baclofen 10 mg tablet RxNorm: 407724 TAKE ONE TABLET BY MOUTH EVERY NIGHT AT BEDTIME FOR PAIN OR SPASMS 01/14/2019 03/14/2019 Inactive Flomax 0.4 mg capsule RxNorm: 277654 TAKE TWO CAPSULES BY MOUTH EVERY EVENING 01/12/2019 03/18/2019 In active gabapentin 400 mg ca psule RxNorm: 977100 1 Capsule(s) PO QPM 12/30/2018 06/27/2019 Active baclofen 10 mg tablet RxNorm: 894208 1 Tablet(s) PO QHS for pain/spasm 12/15/2018 01/13/2019 In active simvastatin 20 mg ta blet RxNorm: 770874 TAKE ONE TABLET BY MO UTH DAILY 12/11/2018 06/08/2019 Ac tive OneTouch Ultra Blue Test Strip RxNorm: Use 1 test strip three time s daily to check blood sugar (Dx:E11.65) 12/07/2018 No Stop Date Active gabapentin 400 mg ca psule RxNorm: 891767 TAKE ONE CAPSULE BY M OUTH EVERY EVENING 12/04/2018 12/29/2018 In active baclofen 10 mg tablet RxNorm: 555494 1 Tablet(s) PO QHS for pain/spasm 11/19/2018 12/15/2018 In active Flomax 0.4 mg capsule RxNorm: 335211 2 Capsule(s) PO QPM 09/15/2018 12/13/2018 Inactive WOULD LIKE 90DS!!! gabapentin 400 mg ca psule RxNorm: 258478 TAKE ONE CAPSULE BY M OUTH EVERY EVENING 07/21/2018 10/18/2018 In active simvastatin 20 mg ta blet RxNorm: 528846 1 Tablet(s) PO QD 06/15/2018 12/10/2018 Inactive Flomax 0.4 mg capsule RxNorm: 370952 TAKE TWO CAPSULES BY MOUTH EVERY EVENING 06/02/2018 09/15/2018 In active WOULD LIKE 90DS!!! Flomax 0.4 mg capsule RxNorm: 114642 2 Capsule(s) PO QPM 04/21/2018 05/20/2018 Inactive simvastatin 20 mg ta blet RxNorm: 892890 1 Tablet(s) PO QD Anil e 1 tablet by mouth daily. Patient due for labwork before further refill. 04/06/2018 04/12/2018 Inactive simvastatin 20 mg ta blet RxNorm: 989162 Tablet(s) TAKE ONE TA BLET BY MOUTH DAILY 03/25/2018 06/15/2018 In active simvastatin 20 mg ta blet RxNorm: 273947 Tablet(s) TAKE ONE TA BLET BY MOUTH DAILY due for appt 12/29/2017 03/25/2018 Inactive simvastatin 20 mg ta blet RxNorm: 944723 TAKE ONE TABLET BY MO UTH DAILY 09/03/2017 12/29/2017 In active simvastatin 20 mg ta blet RxNorm: 051066 1 Tablet(s) PO QD 10/22/2016 11/18/2018 Inactive isosorbide mononitra te ER 60 mg tablet,extended release 24 hr RxNorm: 355279 1 Tablet(s) PO QD 10/22/2016 04/21/2017 Inactive isosorbide mononitra te ER 60 mg tablet,extended release 24 hr RxNorm: 243973 1 Tablet(s) PO QD 10/10/2016 10/21/2016 Inactive simvastatin 20 mg ta blet RxNorm: 563948 1 Tablet(s) PO QD 10/10/2016 10/21/2016 Inactive gabapentin 400 mg ca psule RxNorm: 310713 1 Capsule(s) PO QPM 07/23/2016 09/20/2016 Inactive Toujeo SoloStar 300 unit/mL (1.5 mL) subcutaneous insulin pen RxNorm: 4226667 35 Unit(s) SQ QAM 07/23/2016 07/22/2016 Inactive Toujeo SoloStar 300 unit/mL (1.5 mL) subcutaneous insulin pen RxNorm: 6751847 40 Unit(s) SQ QAM 09/01/2015 No Stop Date Active Symbicort 160 mcg-4. 5 mcg/actuation HFA aerosol inhaler RxNorm: 8199678 2 Puff(s) INH BID 08/31/2015 09/09/2015 Inactive prednisone 20 mg tablet RxNorm: 313579 1 Tablet(s) PO BID 08/29/2015 09/02/2015 Inactive albuterol sulfate 2. 5 mg/3 mL (0.083 %) solution for nebulization RxNorm: 648897 1 Unit(s) INH Q4H as needed 08/29/2015 10/09/2016 Inactive levothyroxine 75 mcg tablet RxNorm: 772827 1 Tablet(s) PO QD 07/28/2015 07/27/2015 Inactive levothyroxine 75 mcg tablet RxNorm: 068010 1 Tablet(s) PO QD 07/28/2015 11/18/2018 Inactive levothyroxine 75 mcg tablet RxNorm: 025931 1 Tablet(s) PO QD 07/28/2015 07/27/2015 Inactive lisinopril 20 mg-hyd rochlorothiazide 25 mg tablet RxNorm: 743729 TAKE ONE TABLET BY MOUTH EVERY MORNING. REPLACES PLAIN LISINOPRIL 03/06/2015 04/21/2017 Inactive lisinopril 20 mg-hyd rochlorothiazide 25 mg tablet RxNorm: 009002 TAKE ONE TABLET BY MOUTH EVERY MORNING. REPLACES PLAIN LISINOPRIL 09/08/2014 03/05/2015 Inactive allopurinol 100 mg t ablet RxNorm: 813660 1 Tablet(s) PO BID 08/11/2014 10/09/2016 Inactive [SAVINGS FOR NON-COVERED DRUGS -- BIN:00 7974, PCN: [id number], Group: [id number], ID# [id number], Questions: . THIS IS NOT INSURANCE.] levothyroxine 50 mcg tablet RxNorm: 827082 1 Tablet(s) PO QD 08/11/2014 07/26/2015 Inactive [AttnRPh: Saving apply/adjudicate RxGRP: SG20 RxBIN:[id number] RxPCN: ID#:[id number]] Zegerid 40 mg-1.1 gr am capsule RxNorm: 088425 1 Capsule(s) PO QD 02/18/2014 03/03/2014 Inactive [AttnRPh: Saving apply/adjudicate RxGRP: SG20 RxBIN:[id number] RxPCN:HT ID#:[id number]] ondansetron 8 mg dis integrating tablet RxNorm: 167472 1 Tablet(s) PO Q8H as needed for nausea 02/18/2014 08/03/2014 Inactive lisinopril 20 mg-hyd rochlorothiazide 25 mg tablet RxNorm: 512342 1 Tablet(s) PO QAM replaces plain lisinopril 08/23/2013 02/18/2014 Inactive lisinopril 20 mg-hyd rochlorothiazide 25 mg tablet RxNorm: 219350 1 Tablet(s) PO QAM replaces plain lisinopril 08/05/2013 08/22/2013 Inactive lisinopril 20 mg-hyd rochlorothiazide 25 mg tablet RxNorm: 831283 1 Tablet(s) PO QAM replaces plain lisinopril 07/29/2013 08/04/2013 Inactive lisinopril 20 mg-hyd rochlorothiazide 25 mg tablet RxNorm: 600509 1 Tablet(s) PO QAM replaces plain lisinopril 07/26/2013 07/28/2013 Inactive gabapentin 400 mg ca psule RxNorm: 699889 1 Capsule(s) PO QPM 07/01/2013 07/28/2013 Inactive gabapentin 400 mg ca psule RxNorm: 792918 1 Capsule(s) PO QPM 04/28/2013 06/26/2013 Inactive lisinopril 20 mg-hyd rochlorothiazide 25 mg tablet RxNorm: 453812 1 Tablet(s) PO QAM replaces plain lisinopril 04/28/2013 07/29/2013 Inactive gabapentin 400 mg ca psule RxNorm: 224259 1 Capsule(s) PO QPM 03/15/2013 04/27/2013 Inactive gabapentin 400 mg ca psule RxNorm: 798886 1 Capsule(s) PO QPM 03/11/2013 03/10/2013 Inactive gabapentin 400 mg ca psule RxNorm: 553325 1 Capsule(s) PO QPM 03/11/2013 03/14/2013 Inactive Lantus Solostar 100 unit/mL (3 mL) Sub-Q Insulin Pen RxNorm: 114117 20 Unit(s) SQ QPM 03/11/2013 03/15/2013 Inactive Toujeo SoloStar 300 unit/mL (1.5 mL) subcutaneous insulin pen RxNorm: 3720424 35 Unit(s) SQ QAM No Start Date Active omeprazole 20 mg cap roman,delayed release RxNorm: 340279 1 Capsule(s) PO QD No Start Date Active isosorbide mononitra te ER 60 mg tablet,extended release 24 hr RxNorm: 360409 1 Tablet(s) PO QD No Start Date Active lisinopril 20 mg tablet RxNorm: 177210 1 Tablet(s) PO QD No Start Date Active Chlortab-4 oral RxNorm: 074233 oral No Start Date Active Eliquis 5 mg tablet RxNorm: 6669432 1 Tablet(s) PO BID No Start Date Active oxymetazoline-mentho l 0.05 % nasal spray RxNorm: 0447735 [place] NASAL No Start Date Active Patient states he takes every 10 hours metformin 500 mg tablet RxNorm: 422652 1 Tablet(s) PO BID No Start Date Active levothyroxine 50 mcg tablet RxNorm: 044949 1 Tablet(s) PO QD No Start Date Active Plavix 75 mg tablet RxNorm: 928928 1 Tablet(s) PO QD No Start Date Active Norvasc 10 mg tablet RxNorm: 347121 1 Tablet(s) PO QHS No Start Date Active Zantac 150 mg tablet RxNorm: 904768 1 Tablet(s) PO QHS No Start Date Active Toujeo SoloStar 300 unit/mL (1.5 mL) subcutaneous insulin pen RxNorm: 0170347 30 Unit(s) SQ QAM No Start Date Active glimepiride 4 mg tablet RxNorm: 605610 1 Tablet(s) PO QHS No Start Date 07/26/2015 Inactive allopurinol 100 mg t ablet RxNorm: 350952 1 Tablet(s) PO BID No Start Date 08/10/2014 Inactive Lantus Solostar 100 unit/mL (3 mL) subcutaneous insulin pen RxNorm: 644503 30 Unit(s) SQ QD No Start Date 08/03/2014 Inactive Levemir FlexTouch 10 0 unit/mL (3 mL) subcutaneous insulin pen RxNorm: 309478 25 Unit(s) SQ QAM No Start Date 07/23/2015 Inactive Lantus 100 unit/mL S ub-Q RxNorm: 689832 30 Unit(s) SQ QHS No Start Date 05/25/2013 Inactive Lantus Solostar 100 unit/mL (3 mL) Sub-Q Insulin Pen RxNorm: 050461 20 Unit(s) SQ QPM No Start Date 03/10/2013 Inactive OneTouch Ultra Blue Test Strip RxNorm: Use 1 test strip three time s daily to check blood sugar (Dx:E11.65) No Start Date 12/06/2018 Inactive Levemir FlexTouch 10 0 unit/mL (3 mL) subcutaneous insulin pen RxNorm: 905953 30-35 Unit(s) SQ QAM No Start Date 07/23/2015 Inactive Levemir Flexpen 100 unit/mL (3 mL) solution subcutaneous insulin pen RxNorm: 333921 20-25 Unit(s) SQ QD No Start Date 07/28/2013 Inactive indomethacin ER 75 m g capsule,extended release RxNorm: 530515 1 Capsule(s) PO QAM No Start Date 04/27/2013 Inactive indomethacin ER 75 m g capsule,extended release RxNorm: 549776 1 Capsule(s) PO QD No Start Date 01/16/2015 Inactive Vitamin D3 5,000 uni t tablet RxNorm: 051692 1 Tablet(s) PO QD No Start Date 08/03/2014 Inactive Levemir Flexpen 100 unit/mL (3 mL) solution subcutaneous insulin Pen RxNorm: 005989 20 Unit(s) SQ QHS No Start Date 03/10/2013 Inactive Vytorin 10 mg-40 mg tablet RxNorm: 2122790 1/2 Tablet(s) PO QD No Start Date 04/20/2018 Inactive Tomariel SoloStar 300 unit/mL (1.5 mL) subcutaneous insulin pen RxNorm: 6780563 35 Unit(s) SQ QAM No Start Date 07/22/2016 Inactive Lantus Solostar 100 unit/mL (3 mL) subcutaneous insulin pen RxNorm: 084101 20 Unit(s) SQ QD No Start Date 08/03/2014 Inactive aspirin 81 mg tablet RxNorm: 058042 1 Tablet(s) PO QD No Start Date 08/03/2014 Inactive metformin 500 mg tablet RxNorm: 550527 1 Tablet(s) PO BID No Start Date 07/28/2013 Inactive glimepiride 4 mg tablet RxNorm: 526274 1 Tablet(s) PO BID No Start Date 01/16/2015 Inactive glimepiride 4 mg tablet RxNorm: 493058 1 Tablet(s) PO QD No Start Date 08/03/2014 Inactive levothyroxine 25 mcg tablet RxNorm: 772220 1 Tablet(s) PO QD No Start Date 08/10/2014 Inactive aspirin 81 mg tablet RxNorm: 115406 1 Tablet(s) PO QD No Start Date 07/21/2018 Inactive isosorbide mononitra te ER 60 mg tablet,extended release 24 hr RxNorm: 037864 1 Tablet(s) PO BID No Start Date 01/16/2015 Inactive metformin 500 mg tablet RxNorm: 922131 1 Tablet(s) PO BID No Start Date 04/27/2013 Inactive glimepiride 4 mg tablet RxNorm: 192478 1 Tablet(s) PO QPM No Start Date 02/21/2019 Inactive Vytorin 10-40 10 mg- 40 mg tablet RxNorm: 0817884 1 Tablet(s) PO QHS No Start Date 08/03/2014 Inactive indomethacin 50 mg c apsule RxNorm: 103412 1 Capsule(s) PO QHS No Start Date 01/16/2015 Inactive glimepiride 4 mg tablet RxNorm: 623644 1 Tablet(s) PO BID No Start Date 07/28/2013 Inactive Levemir FlexTouch 10 0 unit/mL (3 mL) subcutaneous insulin pen RxNorm: 538891 20 Unit(s) SQ QD No Start Date 04/30/2015 Inactive lisinopril 20 mg tablet RxNorm: 620684 1 Tablet(s) PO BID No Start Date 04/27/2013 Inactive Lantus Solostar SubQ RxNorm: Subcutaneous No Start Date 03/15/2013 Inactive allopurinol 300 mg t ablet RxNorm: 424550 1 Tablet(s) PO QD No Start Date 08/03/2014 Inactive Fish Oil 1,000 mg ca psule RxNorm: 1 Capsule(s) PO QD No Start Date 02/21/2019 Inactive indomethacin 50 mg c apsule RxNorm: 972555 1 Capsule(s) PO BID No Start Date 04/20/2018 Inactive levothyroxine 50 mcg tablet RxNorm: 980757 1 Tablet(s) PO QD No Start Date 08/10/2014 Inactive glimepiride 4 mg tablet RxNorm: 333691 1 Tablet(s) PO BID No Start Date 03/15/2013 Inactive indomethacin 50 mg c apsule RxNorm: 035551 1 Capsule(s) PO QHS No Start Date 04/27/2013 Inactive Medication Administered No Medication Administered data Immunizations Vaccine Codes Date Status Influenza CVX: 135 04/21 completed Influenza CVX: 135 04/22 completed Assessments Condition Codes Effectiv e Dates Acute sinusitis, unspecified ICD-10: J01.90 ICD-9: 461.9 02/22/2019 Cervicalgia ICD-10: M54.2 ICD-9: 723.1 11/25/2018 Myalgia, unspecified site ICD-10: M7 9.10 ICD-9: 729.1 11/19/2018 Paroxysmal atrial fibrillation ICD-1 0: I48.0 ICD-9: 427.31 07/22/2018 Low back pain ICD-10: M54.5 ICD-9: 724.2 07/22/2018 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, UNCONTROLLED ICD-10: E10.9 ICD-9: 250.03 07/22/2018 Essential (primary) hypertension ICD -10: I10 ICD-9: 401.9 07/22/2018 FLU VACCINE ICD-10: Z23 ICD-9: V04.81 04/21/2018 Type 2 diabetes mellitus with diabetic n europathy, unspecified ICD-10: E11.40 ICD-9: 250.60 04/21/2018 Benign prostatic hyperplasia with lower urinary tract symptoms ICD-10: N40.1 ICD-9: 600.21 04/21/2018 Chronic kidney disease, stage 1 ICD- 10: N18.1 ICD-9: 585.1 04/21/2018 Hyperlipidemia, unspecified ICD-10: E78.5 ICD-9: 272.4 04/21/2018 Other fatigue ICD-10: R53.83 ICD-9: 780.79 01/06/2018 Type 2 diabetes mellitus with hyperglycemia ICD-10: E11.65 ICD-9: 250.02 01/06/2018 Mixed hyperlipidemia ICD-10: E78.2 ICD-9: 272.2 01/06/2018 Actinic keratosis ICD-10: L57.0 ICD-9: 702.0 10/22/2017 OSTEOARTHRISIS MULTI SITES ICD-10: M 19.90 ICD-9: 715.98 04/22/2017 Pain in left leg ICD-10: M79.605 ICD-9: 729.5 04/22/2017 Localized swelling, mass and lump, left lower limb ICD-10: R22.42 ICD-9: 782.2 04/22/2017 Pain in right thigh ICD-10: M79.651 ICD-9: 729.5 04/22/2017 Anemia, unspecified ICD-10: D64.9 ICD-9: 285.9 04/16/2017 Angina pectoris, unspecified ICD-10: I20.9 ICD-9: 413.9 10/10/2016 Chronic obstructive pulmonary disease, unspecified ICD-10: J44.9 ICD-9: 496 08/31/2015 Wheezing ICD-10: R06.2 ICD-9: 786.07 08/31/2015 Cough ICD-10: R05 ICD-9: 786.2 08/31/2015 Acute bronchitis, unspecified ICD-10 : J20.9 ICD-9: 466.0 08/29/2015 Encounter for general adult medical exam ination without abnormal findings ICD-10: Z00.00 ICD-9: V70.0 07/26/2015 Other instability, right knee ICD-10 : M25.361 ICD-9: 718.86 07/24/2015 Unspecified osteoarthritis, unspecified site ICD-10: M19.90 ICD-9: 716.90 07/24/2015 Pain in leg, unspecified ICD-10: M79 .606 ICD-9: 729.5 05/09/2015 RENAL INSUFFICIENCY - ACUTE ICD-9: 593.9 01/19/2015 MALAISE AND FATIGUE ICD-9: 780.79 01/17/2015 ANEMIA NOS ICD-9: 285.9 01/17/2015 CAD ICD-9: 414.00 2014 Skin lesion ICD-9: 709.9 09/29/2014 HYPERLIPIDEMIA NEC/NOS ICD-9: 272.4 08/04/2014 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I, UNCONTROLLED ICD-9: 250.02 08/04/2014 Medical non-compliance ICD-9: V15.81 08/04/2014 HYPERTENSION ICD-9: 401.9 08/04/2014 ROUTINE MEDICAL EXAM ICD-9: V70.0 08/04/2014 GERD ICD-9: 530.81 02/18 GASTROENTERITIS ICD-9: 558.9 02/18/2014 FLU VACCINE ICD-9: V04.81 07/22/2013 MONONEURITIS ICD-9: 355.9 04/28/2013 RESTLESS LEGS SYNDROME ICD-9: 333.94 04/28/2013 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 ICD-9: 250.01 03/12/2013 Reason For Visit Reason For Visit Effective Dates Notes sinus congestion 02/22/2019 follow up 11/25/2018 neck pain 11/19/2018 Elle carballo recently treated by urgent care with jarrod follow up 07/22/2018 follow up 04/21/2018 follow up 01/06/2018 Elle carballo states has been more fatigued and breaks out in a sweat with the heat. He used to be able to work in it throughout the day, but now it is impossible to stay out longer than 30 minutes. skin lesion 10/22/2017 follow up 04/22/2017 follow up 10/10/2016 Elle carballo not consistently taking medications and when he does it [...] up 04/28/2013 lab draw 03/12/2013 ~generic 03/11/2013 [facility] Results Observation Observation Code Item Item Code Result Date LIPID GROUP 60589 Choles terol 209 mg/dL 09/17/2016 [facility] 62649 Trigly ceride 111 mg/dL 09/17/2016 [facility] 55847 HDL CH OLESTEROL 50 mg/dL 09/17/2016 [facility] 80650 Chol/H DL Ratio 4.18 ratio 09/17/2016 [facility] 54415 NON-HD L Chol 159 mg/dL 09/17/2016 [facility] 80604 LDL Ch olesterol 137 mg/dL 09/17/2016 ME[facility] [id number] Calc M ina Gluc 151 mg/dL 09/17/2016 COMPREHENSIVE METABOL[facility] 63666 AST 23 U/L 09/17/2016 COMPREHENSIVE METABOLIC 48055 ALT 19 U/L 09/17/2016 COMPREHENS[facility] 72977 BUN 15 mg/dL 09/17/2016 COMPREHENS[facility]OL[facility] 28330 ALBUMIN 4.3 g/dL 09/17/2016 COMPREHENSIVE MET[facility]OL[facility] 77461 CHLORIDE 103 mmol/L 09/17/2016 COMPREHENS[facility] MET[facility] 59719 Bili Total 0.6 mg/dL 09/17/2016 COMPREHENS[facility] 72734 ALK PHOS 60 U/L 09/17/2016 COMPREHENS[facility] 51857 SODIUM 140 mmol/L 09/17/2016 COMPREHENSIVE METABOL[facility] 59898 CREATININE 1.03 mg/dL 09/17/2016 COMPREHENSIVE METABOLIC 29757 CALCIUM 9.5 mg/dL 09/17/2016 COMPREHENSIVE METABOLIC 97756 POTASSIUM 3.9 mmol/L 09/17/2016 COMPREHENSIVE METABOLIC 46487 Total Protein 6.9 g/dL 09/17/2016 COMPREHENSIVE METABOLIC 81332 Glucose 94 mg/dL 09/17/2016 COMPREHENSIVE METABOLIC 58234 Bicarbonate 28 mmol/L 09/17/2016 COMPREHENSIVE METABOLIC 82261 AGAP 9 mmol/L 09/17/2016 GFR CALC 6247905 GFR Afr Amr >60 mL/min 09/17/2016 GFR CALC 2333487 GFR Non Afr Amr >60 mL/min 09/17/2016 THYROID STIMULATING HORMONE 75684 TSH 4.260 uIU/mL 7 GLYCOSYLATED HEMOGLOBIN TEST 95875 Hgb A1c 74246-6 6.9 % 09/17/2016 FREE T4 06262 T4 Free 1.02 ng/dL 09/17/2016 COMPLETE BLOOD COUNT [id number] WBC 8.6 10e9/L 07/26/2015 COMPLETE BLOOD COUNT [id number] RBC 4.86 10e12/L 6 COMPLETE BLOOD COUNT 9183987 HGB 14.6 g/dL 07/26/2015 COMPLETE BLOOD COUNT [id number] HCT DET 43.1 % 07/26/2015 COMPLETE BLOOD COUNT [id number] MCV 88.7 fL 07/26/2015 COMPLETE BLOOD COUNT [id number] MCH 30.0 pg 07/26/2015 COMPLETE BLOOD COUNT [id number] MCHC 33.9 g/dL 07/26/2015 COMPLETE BLOOD COUNT [id number] PLT 267 10e9/L 07/26/2015 COMPLETE BLOOD COUNT [id number] MPV 11.5 fL 07/26/2015 COMPLETE BLOOD COUNT [id number] SAM % 64.8 % 07/26/2015 COMPLETE BLOOD COUNT [id number] LY % 16.8 % 07/26/2015 COMPLETE BLOOD COUNT [id number] MON % 12.5 % 07/26/2015 COMPLETE BLOOD COUNT [id number] EOS % 5.6 % 07/26/2015 COMPLETE BLOOD COUNT [id number] BASO % 0.3 % 07/26/2015 COMPLETE BLOOD COUNT [id number] RDW 13.4 % 07/26/2015 COMPLETE BLOOD COUNT [id number] ABS SAM 5.57 10e9/L 07/26/2015 COMPLETE BLOOD COUNT [id number] ABS LYMPH 1.44 10e9/L 07/26/2015 COMPLETE BLOOD COUNT [id number] ABS MONO 1.08 10e9/L 07/26/2015 COMPLETE BLOOD COUNT [id number] ABS EOS 0.48 10e9/L 07/26/2015 COMPLETE BLOOD COUNT [id number] ABS BASO 0.03 10e9/L 07/26/2015 COMPLETE BLOOD COUNT [id number] RDW-SD 42.9 fL 07/26/2015 PSA EQUIMOLAR MATT 75871 PSA EQ 0.78 NG/ML 07/26/2015 THYROID STIMULATING HORMONE 90527 TSH 5.292 uIU/ML 6 GLYCOSYLATED HEMOGLOBIN TEST 38453 A1C HPLC 12646-0 7.0 % 07/26/2015 GFR CALC 7621370 GFR AA >60 ML/MIN 07/26/2015 GFR CALC 8167660 GFR NON -AA >60 ML/MIN 07/26/2015 LIPID GROUP [address] 64 MG/DL 07/26/2015 LIPID GROUP 05748 TRIG 58 MG/DL 07/26/2015 LIPID GROUP 73139 TEST L DL 49 MG/DL 07/26/2015 LIPID GROUP 79052 CHOL 125 MG/DL 07/26/2015 LIPID GROUP 74519 RCHOL/ HDL 1.95 RATIO 07/26/2015 LIPID GROUP 43502 NON-HD L CH 61 MG/DL 07/26/2015 COMPREHENSIVE METABOLIC 57846 AST 25 U/L 07/26/2015 COMPREHENSIVE METABOLIC 66952 ALT 23 IU/L 07/26/2015 COMPREHENSIVE METABOLIC 91307 BUN 18 MG/DL 07/26/2015 COMPREHENSIVE METABOLIC 64999 ALBUMIN 4.6 GM/DL 07/26/2015 COMPREHENSIVE METABOLIC 45402 CHLORIDE 100 MMOL/L 07/26/2015 COMPREHENSIVE METABOLIC 03660 BILI TOT 0.5 MG/DL 07/26/2015 COMPREHENSIVE METABOLIC 51382 ALK PHOS 49 U/L 07/26/2015 COMPREHENSIVE METABOLIC 65961 SODIUM 137 MMOL/L 07/26/2015 COMPREHENSIVE METABOLIC 49472 CREATININE 1.06 MG/DL 07/26/2015 COMPREHENSIVE METABOLIC 59723 CALCIUM 9.5 MG/DL 07/26/2015 COMPREHENSIVE METABOLIC 02579 POTASSIUM 4.5 MMOL/L 07/26/2015 COMPREHENSIVE METABOLIC 11135 PROT TOT 6.5 GM/DL 07/26/2015 COMPREHENSIVE METABOLIC 89099 Glucose 109 MG/DL 07/26/2015 COMPREHENSIVE METABOLIC 81823 BICARB 29 MMOL/L 07/26/2015 COMPREHENSIVE METABOLIC 80166 ANION GAP 8 MEQ/L 07/26/2015 FREE T4 24383 FREE T4 1.11 NG/DL 07/26/2015 CULTURE & SENSITIVITY 83111 PROTEIN UR NEG 01/24/2015 CULTURE & SENSITIVITY 32517 HEMGLBN UR TR 01/24/2015 CULTURE & SENSITIVITY 91858 GLUCOSE UR NEG 01/24/2015 CULTURE & SENSITIVITY 83763 KETONES UR NEG 01/24/2015 CULTURE & SENSITIVITY 52308 PH U 6.5 01/24/2015 CULTURE & SENSITIVITY 45378 SP GR U 1.013 01/24/2015 CULTURE & SENSITIVITY 35796 BILRUBN UR NEG 01/24/2015 CULTURE & SENSITIVITY 66422 LEUKO UR NEG 01/24/2015 CULTURE & SENSITIVITY 32620 NITRITE UR NEG 01/24/2015 MICR CUL? [id number] SP TO JOHANA? NO 01/24/2015 MICR CUL? [id number] APPEAR UR NORMAL 01/24/2015 MICR CUL? [id number] RBC/uL 2.2 01/24/2015 MICR CUL? 3640465 WBC/uL 2.8 01/24/2015 MICR CUL? 5416428 SQ EPI /uL 1.0 01/24/2015 MICR CUL? [id number] HYALCS T/uL 0.25 01/24/2015 MICR CUL? 0726842 WBC /H PF 1 01/24/2015 MICR CUL? [id number] RBC /H PF 0 01/24/2015 GLYCOSYLATED HEMOGLOBIN TEST 82243 A1C HPLC 59599-7 6.6 % 01/17/2015 COMPLETE BLOOD COUNT 5609657 WBC 10.1 10e9/L 01/17/2015 COMPLETE BLOOD COUNT 5141324 RBC 4.60 10e12/L 5 COMPLETE BLOOD COUNT 9529540 HGB 14.0 g/dL 01/17/2015 COMPLETE BLOOD COUNT 4240472 HCT DET 39.9 % 01/17/2015 COMPLETE BLOOD COUNT 0852877 MCV 86.7 fL 01/17/2015 COMPLETE BLOOD COUNT 7154564 MCH 30.4 pg 01/17/2015 COMPLETE BLOOD COUNT 1740765 MCHC 35.1 g/dL 01/17/2015 COMPLETE BLOOD COUNT 3032577 PLT 252 10e9/L 01/17/2015 COMPLETE BLOOD COUNT 6073475 MPV 11.4 fL 01/17/2015 COMPLETE BLOOD COUNT 4774789 SAM % 72.9 % 01/17/2015 COMPLETE BLOOD COUNT [id number] LY % 13.6 % 01/17/2015 COMPLETE BLOOD COUNT 4469098 MON % 10.2 % 01/17/2015 COMPLETE BLOOD COUNT 0454629 EOS % 3.1 % 01/17/2015 COMPLETE BLOOD COUNT 2779069 BASO % 0.2 % 01/17/2015 COMPLETE BLOOD COUNT 5872698 RDW 13.6 % 01/17/2015 COMPLETE BLOOD COUNT 3898031 ABS SAM 7.36 10e9/L 01/17/2015 COMPLETE BLOOD COUNT 2159870 ABS LYMPH 1.37 10e9/L 01/17/2015 COMPLETE BLOOD COUNT 3386646 ABS MONO 1.03 10e9/L 01/17/2015 COMPLETE BLOOD COUNT 4233089 ABS EOS 0.31 10e9/L 01/17/2015 COMPLETE BLOOD COUNT 0335635 ABS BASO 0.02 10e9/L 01/17/2015 COMPLETE BLOOD COUNT 9873373 RDW-SD 42.4 fL 01/17/2015 GFR CALC 2062234 GFR AA 51.0L ML/MIN 01/17/2015 GFR CALC 8661631 GFR NON -AA 42.0L ML/MIN 5 FREE T4 39367 FREE T4 1.30 NG/DL 01/17/2015 THYROID STIMULATING HORMONE 82925 TSH 4.029 uIU/ML 5 COMPREHENSIVE METABOLIC 35044 AST 28 U/L 01/17/2015 COMPREHENSIVE METABOLIC 63253 ALT 25 IU/L 01/17/2015 COMPREHENSIVE METABOLIC 13753 BUN 21 MG/DL 01/17/2015 COMPREHENSIVE METABOLIC 25308 ALBUMIN 4.7 GM/DL 01/17/2015 COMPREHENSIVE METABOLIC 75055 CHLORIDE 102 MMOL/L 01/17/2015 COMPREHENSIVE METABOLIC 26080 BILI TOT 0.6 MG/DL 01/17/2015 COMPREHENSIVE METABOLIC 23236 ALK PHOS 44 U/L 01/17/2015 COMPREHENSIVE METABOLIC 01698 SODIUM 137 MMOL/L 01/17/2015 COMPREHENSIVE METABOLIC 72009 CREATININE 1.62 MG/DL 01/17/2015 COMPREHENSIVE METABOLIC 10516 CALCIUM 9.7 MG/DL 01/17/2015 COMPREHENSIVE METABOLIC 93642 POTASSIUM 4.5 MMOL/L 01/17/2015 COMPREHENSIVE METABOLIC 19028 PROT TOT 6.5 GM/DL 01/17/2015 COMPREHENSIVE METABOLIC 83752 Glucose 136 MG/DL 01/17/2015 COMPREHENSIVE METABOLIC 35218 BICARB 24 MMOL/L 01/17/2015 COMPREHENSIVE METABOLIC 89076 ANION GAP 11 MEQ/L 01/17/2015 VITAMIN B 12 19139 VIT B 12 482 PG/ML 01/17/2015 URIC ACID 98703 URIC ACID 8.5 MG/DL 08/09/2014 COMPREHENSIVE METABOLIC 93131 AST 27 U/L 08/09/2014 COMPREHENSIVE METABOLIC 92937 ALT 26 IU/L 08/09/2014 COMPREHENSIVE METABOLIC 63665 BUN 17 MG/DL 08/09/2014 COMPREHENSIVE METABOLIC 87449 ALBUMIN 5.0 GM/DL 08/09/2014 COMPREHENSIVE METABOLIC 01448 CHLORIDE 101 MMOL/L 08/09/2014 COMPREHENSIVE METABOLIC 34326 BILI TOT 0.7 MG/DL 08/09/2014 COMPREHENSIVE METABOLIC 05723 ALK PHOS 53 U/L 08/09/2014 COMPREHENSIVE METABOLIC 67543 SODIUM 136 MMOL/L 08/09/2014 COMPREHENSIVE METABOLIC 22067 CREATININE 1.14 MG/DL 08/09/2014 COMPREHENSIVE METABOLIC 36503 CALCIUM 9.8 MG/DL 08/09/2014 COMPREHENSIVE METABOLIC 02498 POTASSIUM 4.1 MMOL/L 08/09/2014 COMPREHENSIVE METABOLIC 50281 PROT TOT 7.5 GM/DL 08/09/2014 COMPREHENSIVE METABOLIC 70669 Glucose 110 MG/DL 08/09/2014 COMPREHENSIVE METABOLIC 81941 BICARB 30 MMOL/L 08/09/2014 COMPREHENSIVE METABOLIC 61921 ANION GAP 5 MEQ/L 08/09/2014 GFR CALC 2962473 GFR AA >60 ML/MIN 08/09/2014 GFR CALC 0514712 GFR NON -AA >60 ML/MIN 08/09/2014 FREE T4 82418 FREE T4 1.14 NG/DL 08/09/2014 GLYCOSYLATED HEMOGLOBIN TEST 69331 A1C HPLC 04369-1 6.8 % 08/09/2014 COMPLETE BLOOD COUNT 1791274 WBC 5.9 10e9/L 08/09/2014 COMPLETE BLOOD COUNT 0249910 RBC 5.04 10e12/L 5 COMPLETE BLOOD COUNT 8706728 HGB 15.2 g/dL 08/09/2014 COMPLETE BLOOD COUNT 5034765 HCT DET 44.3 % 08/09/2014 COMPLETE BLOOD COUNT 9375863 MCV 87.9 fL 08/09/2014 COMPLETE BLOOD COUNT 0594303 MCH 30.2 pg 08/09/2014 COMPLETE BLOOD COUNT 0053166 MCHC 34.3 g/dL 08/09/2014 COMPLETE BLOOD COUNT 6951240 PLT 262 10e9/L 08/09/2014 COMPLETE BLOOD COUNT 0464079 MPV 10.9 fL 08/09/2014 COMPLETE BLOOD COUNT 1959265 SAM % 58.7 % 08/09/2014 COMPLETE BLOOD COUNT 0385283 LY % 21.5 % 08/09/2014 COMPLETE BLOOD COUNT 9932879 MON % 14.0 % 08/09/2014 COMPLETE BLOOD COUNT 5386951 EOS % 5.3 % 08/09/2014 COMPLETE BLOOD COUNT 0949607 BASO % 0.5 % 08/09/2014 COMPLETE BLOOD COUNT 1995952 RDW 13.1 % 08/09/2014 COMPLETE BLOOD COUNT 9121320 ABS SAM 3.46 10e9/L 08/09/2014 COMPLETE BLOOD COUNT 6785369 ABS LYMPH 1.27 10e9/L 08/09/2014 COMPLETE BLOOD COUNT 5292695 ABS MONO 0.83 10e9/L 08/09/2014 COMPLETE BLOOD COUNT 4467665 ABS EOS 0.31 10e9/L 08/09/2014 COMPLETE BLOOD COUNT 9374918 ABS BASO 0.03 10e9/L 08/09/2014 COMPLETE BLOOD COUNT 4228787 RDW-SD 41.2 fL 08/09/2014 THYROID STIMULATING HORMONE 46101 TSH 5.395 uIU/ML 5 LIPID GROUP [address] 52 MG/DL 08/09/2014 LIPID GROUP 13789 TRIG 113 MG/DL 08/09/2014 LIPID GROUP 98616 TEST L DL 158 MG/DL 08/09/2014 LIPID GROUP 77737 CHOL 233 MG/DL 08/09/2014 LIPID GROUP 01207 RCHOL/ HDL 4.48 RATIO 08/09/2014 LIPID GROUP 91330 NON-HD L CH 181 MG/DL 08/09/2014 COMPLETE BLOOD COUNT 1540401 WBC 6.8 10e9/L 09/08/2013 COMPLETE BLOOD COUNT 0072649 RBC 5.18 10e12/L 4 COMPLETE BLOOD COUNT 6379734 HGB 15.2 g/dL 09/08/2013 COMPLETE BLOOD COUNT 6043567 HCT DET 44.7 % 09/08/2013 COMPLETE BLOOD COUNT 2160483 MCV 86.3 fL 09/08/2013 COMPLETE BLOOD COUNT 8373620 MCH 29.3 pg 09/08/2013 COMPLETE BLOOD COUNT 5382222 MCHC 34.0 g/dL 09/08/2013 COMPLETE BLOOD COUNT 4319108 PLT 236 10e9/L 09/08/2013 COMPLETE BLOOD COUNT 5528745 MPV 11.0 fL 09/08/2013 COMPLETE BLOOD COUNT 7408974 SAM % 58.2 % 09/08/2013 COMPLETE BLOOD COUNT 3098710 LY % 21.9 % 09/08/2013 COMPLETE BLOOD COUNT 9563969 MON % 12.5 % 09/08/2013 COMPLETE BLOOD COUNT 4734352 EOS % 7.3 % 09/08/2013 COMPLETE BLOOD COUNT 4097161 BASO % 0.1 % 09/08/2013 COMPLETE BLOOD COUNT 4495790 RDW 13.6 % 09/08/2013 COMPLETE BLOOD COUNT 1198909 ABS SAM 3.96 10e9/L 09/08/2013 COMPLETE BLOOD COUNT 1552904 ABS LYMPH 1.49 10e9/L 09/08/2013 COMPLETE BLOOD COUNT 4632302 ABS MONO 0.85 10e9/L 09/08/2013 COMPLETE BLOOD COUNT 8535237 ABS EOS 0.50 10e9/L 09/08/2013 COMPLETE BLOOD COUNT 3336279 ABS BASO 0.01 10e9/L 09/08/2013 COMPLETE BLOOD COUNT 7887917 RDW-SD 42.3 fL 09/08/2013 COMPREHENSIVE METABOLIC 41593 AST 27 U/L 09/08/2013 COMPREHENSIVE METABOLIC 67107 ALT 30 IU/L 09/08/2013 COMPREHENSIVE METABOLIC 58684 BUN 16 MG/DL 09/08/2013 COMPREHENSIVE METABOLIC 33502 ALBUMIN 4.9 GM/DL 09/08/2013 COMPREHENSIVE METABOLIC 96412 CHLORIDE 99 MMOL/L 09/08/2013 COMPREHENSIVE METABOLIC 05143 BILI TOT 0.7 MG/DL 09/08/2013 COMPREHENSIVE METABOLIC 00176 ALK PHOS 53 U/L 09/08/2013 COMPREHENSIVE METABOLIC 36103 SODIUM 137 MMOL/L 09/08/2013 COMPREHENSIVE METABOLIC 07171 CREATININE 1.01 MG/DL 09/08/2013 COMPREHENSIVE METABOLIC 65735 CALCIUM 10.0 MG/DL 09/08/2013 COMPREHENSIVE METABOLIC 47471 POTASSIUM 4.4 MMOL/L 09/08/2013 COMPREHENSIVE METABOLIC 39587 PROT TOT 7.1 GM/DL 09/08/2013 COMPREHENSIVE METABOLIC 00551 Glucose 148 MG/DL 09/08/2013 COMPREHENSIVE METABOLIC 11922 BICARB 30 MMOL/L 09/08/2013 COMPREHENSIVE METABOLIC 62005 ANION GAP 8 MEQ/L 09/08/2013 GFR CALC 0030092 GFR AA >60 ML/MIN 09/08/2013 GFR CALC 5899192 GFR NON -AA >60 ML/MIN 09/08/2013 FREE T4 18214 FREE T4 1.08 NG/DL 09/08/2013 GLYCOSYLATED HEMOGLOBIN TEST 84607 A1C HPLC 58822-2 7.3 % 09/08/2013 THYROID STIMULATING HORMONE 13310 TSH 5.454 uIU/ML 4 LIPID GROUP [address] 59 MG/DL 09/08/2013 LIPID GROUP 90851 TRIG 92 MG/DL 09/08/2013 LIPID GROUP 92773 TEST L DL 83 MG/DL 09/08/2013 LIPID GROUP 52934 CHOL 160 MG/DL 09/08/2013 LIPID GROUP 77002 RCHOL/ HDL 2.71 RATIO 09/08/2013 VITAMIN B 12 FOLIC ACID 69443|43076 VIT B 12 467 PG/ML 03/12/2013 VITAMIN B 12 FOLIC ACID 41037|38196 FOLIC ACID 12.2 NG/ML 03/12/2013 VITAMIN B 12 FOLIC ACID 33479|63945 VIT B 12 467 PG/ML 03/12/2013 THYROID STIMULATING HORMONE 76900 TSH 4.557 uIU/ML 3 HEMOGLOBIN A1C (GLYCOSYLATED) 0198356 A1C HPLC 74414-6 7.6 % 03/12/2013 VITAMIN D TOTAL (25 HYDROXY) 18317 VIT D TOTL 17 NG/ML 03/12/2013 FREE T4 64304 FREE T4 1.07 NG/DL 03/12/2013 URIC ACID 24233 URIC ACID 5.2 MG/DL 03/12/2013 Review of Systems System Result Effective Dates Constitutional fatigue 0 02/22/2019 Constitutional No fever 02/22/2019 Constitutional No chills 02/22/2019 Ears/Nose/Throat/Neck No sore throat 02/22/2019 Ears/Nose/Throat/Neck sinus congestion 02/22/2019 Ears/Nose/Throat/Neck sinusitis 02/22/2019 Ears/Nose/Throat/Neck No otalgia 02/22/2019 Ears/Nose/Throat/Neck postnasal drip 02/22/2019 Ears/Nose/Throat/Neck nasal discharge 02/22/2019 Respiratory No cough Respiratory No dyspnea 0 02/22/2019 Respiratory No chest tightness 02/22/2019 Neurologic headache 02/04 Gastrointestinal No abdominal pain 02/22/2019 Gastrointestinal No constipation 02/22/2019 Gastrointestinal No diarrhea 02/22/2019 Gastrointestinal No nausea 02/22/2019 Musculoskeletal neck pain 11/25/2018 Neurologic headache 11/04 Respiratory No wheezing 11/19/2018 Respiratory No productive sputum 11/19/2018 Respiratory No pleuritic pain 11/19/2018 Respiratory No dyspnea 0 11/19/2018 Respiratory No cough Respiratory No asthma Ears/Nose/Throat/Neck sinusitis 11/19/2018 Ears/Nose/Throat/Neck sinus congestion 11/19/2018 Constitutional fatigue 0 11/19/2018 Musculoskeletal myalgias 11/19/2018 Musculoskeletal neck pain 11/19/2018 Cardiovascular arrhythmia 07/22/2018 Cardiovascular No chest pain/pressure 07/22/2018 Cardiovascular No edema 07/22/2018 Cardiovascular No exercise intolerance 07/22/2018 Cardiovascular No orthopnea 07/22/2018 Cardiovascular No palpitations 07/22/2018 Cardiovascular hypertension 07/22/2018 Endocrine No goiter 07/07 Endocrine No hyperglycemia 07/22/2018 Endocrine No hypoglycemia 07/22/2018 Musculoskeletal back pain 07/22/2018 Respiratory No asthma Respiratory No cough Respiratory No dyspnea 0 07/22/2018 Respiratory No pleuritic pain 07/22/2018 Respiratory No productive sputum 07/22/2018 Respiratory No wheezing 07/22/2018 Gastrointestinal No hemorrhoids 07/22/2018 Gastrointestinal No hepatitis 07/22/2018 Gastrointestinal No abdominal pain 07/22/2018 Gastrointestinal No constipation 07/22/2018 Gastrointestinal No diarrhea 07/22/2018 Gastrointestinal No gastroesophageal reflu x 07/22/2018 Gastrointestinal No melena 07/22/2018 Gastrointestinal No nausea 07/22/2018 Gastrointestinal No vomiting 07/22/2018 Genitourinary/Nephrology No dysuria 07/22/2018 Genitourinary/Nephrology No nocturia 07/22/2018 Genitourinary/Nephrology No urinary incontinence 07/22/2018 Dermatologic No rash Dermatologic No scar Neurologic No dizziness 07/22/2018 Neurologic No headache 0 07/22/2018 Neurologic No neck pain 07/22/2018 Neurologic No syncope Psychiatric No anxiety 0 07/22/2018 Psychiatric No depression 07/22/2018 Constitutional fatigue 0 07/22/2018 Eyes eye pain 04/21/2018 Eyes eye tearing 018 Cardiovascular hypertension 04/21/2018 Respiratory No asthma Respiratory No cough Respiratory No dyspnea 1 Respiratory No pleuritic pain 04/21/2018 Respiratory No productive sputum 04/21/2018 Respiratory No wheezing 04/21/2018 Gastrointestinal No hemorrhoids 04/21/2018 Gastrointestinal No hepatitis 04/21/2018 Gastrointestinal No abdominal pain 04/21/2018 Gastrointestinal No constipation 04/21/2018 Gastrointestinal No diarrhea 04/21/2018 Gastrointestinal No gastroesophageal reflu x 04/21/2018 Gastrointestinal No melena 04/21/2018 Gastrointestinal No nausea 04/21/2018 Gastrointestinal No vomiting 04/21/2018 Genitourinary/Nephrology No dysuria 04/21/2018 Genitourinary/Nephrology No nocturia 04/21/2018 Genitourinary/Nephrology No urinary incontinence 04/21/2018 Musculoskeletal No muscle weakness 04/21/2018 Musculoskeletal No myalgias 04/21/2018 Musculoskeletal No stiffness 04/21/2018 Musculoskeletal No swelling 04/21/2018 Dermatologic No rash Dermatologic No scar Neurologic No dizziness 04/21/2018 Neurologic No headache 1 Neurologic No neck pain 04/21/2018 Neurologic No syncope Psychiatric No anxiety 1 Psychiatric No depression 04/21/2018 Endocrine No goiter 04/06 Endocrine No hyperglycemia 04/21/2018 Endocrine No hypoglycemia 04/21/2018 Endocrine diabetes mellitus type 2 04/21/2018 Endocrine hyperlipidemia 04/21/2018 Musculoskeletal joint complaint 04/21/2018 Musculoskeletal back pain 04/21/2018 Constitutional No fever 01/06/2018 Constitutional fatigue 0 01/06/2018 Respiratory No cough 09/2017 Endocrine diabetes mellitus type 2 01/06/2018 Endocrine hyperlipidemia 01/06/2018 Musculoskeletal No myalgias 01/06/2018 Dermatologic No rash 09/2017 Gastrointestinal No abdominal pain 01/06/2018 Gastrointestinal No constipation 01/06/2018 Gastrointestinal No diarrhea 01/06/2018 Gastrointestinal No nausea 01/06/2018 Cardiovascular No arrhythmia 01/06/2018 Cardiovascular No chest pain/pressure 01/06/2018 Cardiovascular No edema 01/06/2018 Cardiovascular No exercise intolerance 01/06/2018 Cardiovascular No orthopnea 01/06/2018 Cardiovascular No palpitations 01/06/2018 Cardiovascular hypertension 01/06/2018 Neurologic No dizziness 01/06/2018 Neurologic No headache 0 01/06/2018 Neurologic No neck pain 01/06/2018 Neurologic No syncope Psychiatric No anxiety 0 01/06/2018 Psychiatric No depression 01/06/2018 Dermatologic skin lesion 10/22/2017 Constitutional No night sweats 04/22/2017 Constitutional fatigue 1 Constitutional No fever 04/22/2017 Constitutional No insomnia 04/22/2017 Constitutional No weight loss 04/22/2017 Eyes No eye pain 017 Eyes No photophobia 04/06 Eyes No vision change Eyes No visual disturbance 04/22/2017 Ears/Nose/Throat/Neck No hearing loss 04/22/2017 Ears/Nose/Throat/Neck No nasal discharge 04/22/2017 Ears/Nose/Throat/Neck No sinus congestion 04/22/2017 Ears/Nose/Throat/Neck No sore throat 04/22/2017 Cardiovascular No arrhythmia 04/22/2017 Cardiovascular No chest pain/pressure 04/22/2017 Cardiovascular No edema 04/22/2017 Cardiovascular No exercise intolerance 04/22/2017 Cardiovascular No orthopnea 04/22/2017 Cardiovascular No palpitations 04/22/2017 Respiratory No asthma Respiratory No cough Respiratory No dyspnea 1 Respiratory No pleuritic pain 04/22/2017 Respiratory No productive sputum 04/22/2017 Respiratory No wheezing 04/22/2017 Gastrointestinal No hemorrhoids 04/22/2017 Gastrointestinal No hepatitis 04/22/2017 Gastrointestinal No abdominal pain 04/22/2017 Gastrointestinal No constipation 04/22/2017 Gastrointestinal No diarrhea 04/22/2017 Gastrointestinal No gastroesophageal reflu x 04/22/2017 Gastrointestinal No melena 04/22/2017 Gastrointestinal No nausea 04/22/2017 Gastrointestinal No vomiting 04/22/2017 Genitourinary/Nephrology No dysuria 04/22/2017 Genitourinary/Nephrology No nocturia 04/22/2017 Genitourinary/Nephrology No urinary incontinence 04/22/2017 Musculoskeletal No muscle weakness 04/22/2017 Musculoskeletal No myalgias 04/22/2017 Musculoskeletal No stiffness 04/22/2017 Musculoskeletal No swelling 04/22/2017 Dermatologic No rash Dermatologic No scar Neurologic No dizziness 04/22/2017 Neurologic No headache 1 Neurologic No neck pain 04/22/2017 Neurologic No syncope Psychiatric No anxiety 1 Psychiatric No depression 04/22/2017 Endocrine No goiter 04/06 Endocrine No hyperglycemia 04/22/2017 Endocrine No hypoglycemia 04/22/2017 Hematologic/Lymphatic No abnormal ec chymoses 04/22/2017 Hematologic/Lymphatic No petechiae 04/22/2017 Hematologic/Lymphatic No abnormal bl eeding and bruising 04/22/2017 Hematologic/Lymphatic No anemia 04/22/2017 Hematologic/Lymphatic No lymph node enlargement/mass 04/22/2017 Allergy/Immunology No food allergy 04/22/2017 Neurologic weakness 04/06 Cardiovascular No arrhythmia 10/10/2016 Cardiovascular chest pain/pressure 10/10/2016 Cardiovascular No edema 10/10/2016 Cardiovascular No exercise intolerance 10/10/2016 Cardiovascular No orthopnea 10/10/2016 Cardiovascular No palpitations 10/10/2016 Cardiovascular hypertension 10/10/2016 Endocrine diabetes mellitus type 2 10/10/2016 Endocrine hyperglycemia 10/10/2016 Endocrine hyperlipidemia 10/10/2016 Respiratory No asthma Respiratory No cough 12/2016 Respiratory No dyspnea 0 10/10/2016 Respiratory No pleuritic pain 10/10/2016 Respiratory No productive sputum 10/10/2016 Respiratory No wheezing 10/10/2016 Constitutional No night sweats 08/31/2015 Constitutional No diaphoresis 08/31/2015 Constitutional No chills 08/31/2015 Constitutional No fatigue 08/31/2015 Constitutional No fever 08/31/2015 Eyes No eye tearing 08/08 Eyes No eye trauma 08/31 Ears/Nose/Throat/Neck No eustachian tube dysfunction 08/31/2015 Ears/Nose/Throat/Neck No facial pain 08/31/2015 Ears/Nose/Throat/Neck No nasal discharge 08/31/2015 Ears/Nose/Throat/Neck No otalgia 08/31/2015 Ears/Nose/Throat/Neck No otorrhea 08/31/2015 Cardiovascular No cardiac murmur 08/31/2015 Cardiovascular No chest pain/pressure 08/31/2015 Cardiovascular No dyspnea 08/31/2015 Cardiovascular No fatigue 08/31/2015 Respiratory chest congestion 08/31/2015 Respiratory chest tightness 08/31/2015 Respiratory cough 2015 Respiratory dyspnea 08/08 Respiratory wheezing Hematologic/Lymphatic No abnormal bl eeding and bruising 08/31/2015 Respiratory cough 2015 Respiratory wheezing Constitutional No fever 08/29/2015 Respiratory chest congestion 08/29/2015 Musculoskeletal joint complaint 07/24/2015 Endocrine diabetes mellitus type 2 07/24/2015 Endocrine hyperglycemia 07/24/2015 Endocrine obesity 2015 Neurologic pain, limb Neurologic weakness 04/07 Musculoskeletal back pain 05/01/2015 Neurologic paresthesia 1 Constitutional fatigue 0 01/17/2015 Cardiovascular No arrhythmia 01/17/2015 Cardiovascular chest pain/pressure 01/17/2015 Cardiovascular No edema 01/17/2015 Cardiovascular No exercise intolerance 01/17/2015 Cardiovascular No orthopnea 01/17/2015 Cardiovascular No palpitations 01/17/2015 Respiratory dyspnea 01/04 Musculoskeletal arthralgia(s) 01/17/2015 Endocrine diabetes mellitus type 1 01/17/2015 Dermatologic skin lesion 09/29/2014 Musculoskeletal joint complaint 08/04/2014 Cardiovascular hypertension 08/04/2014 Respiratory No asthma Respiratory No cough Respiratory No dyspnea 0 08/04/2014 Respiratory No pleuritic pain 08/04/2014 Respiratory No productive sputum 08/04/2014 Respiratory No wheezing 08/04/2014 Gastrointestinal No hemorrhoids 08/04/2014 Gastrointestinal No hepatitis 08/04/2014 Gastrointestinal No abdominal pain 08/04/2014 Gastrointestinal No constipation 08/04/2014 Gastrointestinal No diarrhea 08/04/2014 Gastrointestinal No gastroesophageal reflu x 08/04/2014 Gastrointestinal No melena 08/04/2014 Gastrointestinal No nausea 08/04/2014 Gastrointestinal No vomiting 08/04/2014 Genitourinary/Nephrology No dysuria 08/04/2014 Genitourinary/Nephrology No nocturia 08/04/2014 Genitourinary/Nephrology No urinary incontinence 08/04/2014 Dermatologic No rash Dermatologic No scar Neurologic No dizziness 08/04/2014 Neurologic No headache 0 08/04/2014 Neurologic No neck pain 08/04/2014 Neurologic No syncope Psychiatric No anxiety 0 08/04/2014 Psychiatric No depression 08/04/2014 Endocrine diabetes mellitus type 2 08/04/2014 Endocrine hyperlipidemia 08/04/2014 Ears/Nose/Throat/Neck No hearing loss 08/04/2014 Ears/Nose/Throat/Neck No nasal discharge 08/04/2014 Ears/Nose/Throat/Neck No sinus congestion 08/04/2014 Ears/Nose/Throat/Neck No sore throat 08/04/2014 Constitutional fatigue 0 08/04/2014 Gastrointestinal No constipation 02/18/2014 Gastrointestinal No diarrhea 02/18/2014 Gastrointestinal gastroesophageal reflux 02/18/2014 Gastrointestinal gas and bloating 02/18/2014 Gastrointestinal dyspepsia 02/18/2014 Gastrointestinal nausea 02/18/2014 Constitutional No fever 02/18/2014 Ears/Nose/Throat/Neck gastroesophage al reflux 02/18/2014 Cardiovascular hypertension 05/26/2013 Endocrine diabetes mellitus type 2 05/26/2013 Endocrine hyperglycemia 05/26/2013 Constitutional fatigue 1 07/26/2012 Cardiovascular chest pain/pressure 04/28/2013 Constitutional fatigue 1 Constitutional fatigue 0 03/11/2013 Cardiovascular hypertension 03/11/2013 Cardiovascular cardiac murmur 03/11/2013 Cardiovascular No chest pain/pressure 03/11/2013 Cardiovascular edema 11/2012 Respiratory No asthma Respiratory No cough 11/2012 Respiratory No dyspnea 0 03/11/2013 Respiratory No pleuritic pain 03/11/2013 Respiratory No productive sputum 03/11/2013 Respiratory No wheezing 03/11/2013 Gastrointestinal No hemorrhoids 03/11/2013 Gastrointestinal No hepatitis 03/11/2013 Gastrointestinal No abdominal pain 03/11/2013 Gastrointestinal No constipation 03/11/2013 Gastrointestinal No diarrhea 03/11/2013 Gastrointestinal No gastroesophageal reflu x 03/11/2013 Gastrointestinal No melena 03/11/2013 Gastrointestinal No nausea 03/11/2013 Gastrointestinal No vomiting 03/11/2013 Genitourinary/Nephrology No dysuria 03/11/2013 Genitourinary/Nephrology No nocturia 03/11/2013 Genitourinary/Nephrology No urinary incontinence 03/11/2013 Musculoskeletal arthralgia(s) 03/11/2013 Musculoskeletal myalgias 03/11/2013 Dermatologic No rash 11/2012 Dermatologic No scar 11/2012 Neurologic No dizziness 03/11/2013 Neurologic No headache 0 03/11/2013 Neurologic No neck pain 03/11/2013 Neurologic No syncope Psychiatric No anxiety 0 03/11/2013 Psychiatric No depression 03/11/2013 Endocrine diabetes mellitus type 2 03/11/2013 Endocrine hyperlipidemia 03/11/2013 Hematologic/Lymphatic No abnormal ec chymoses 03/11/2013 Hematologic/Lymphatic No petechiae 03/11/2013 Hematologic/Lymphatic No abnormal bl eeding and bruising 03/11/2013 Hematologic/Lymphatic No anemia 03/11/2013 Hematologic/Lymphatic No lymph node enlargement/mass 03/11/2013 Ears/Nose/Throat/Neck No hearing loss 03/11/2013 Ears/Nose/Throat/Neck No nasal discharge 03/11/2013 Ears/Nose/Throat/Neck No sinus congestion 03/11/2013 Ears/Nose/Throat/Neck No sore throat 03/11/2013 Neurologic ataxia 2012 Neurologic weakness 11/2012 Physical Exam Exam Name System Name It em Name Status Result Effective Dates Notes Full Exam - General Constitutional general appearance Overall: well nourished 02/22/2019 None Full Exam - General Constitutional general appearance Overall: in no acute distress 02/22/2019 None Full Exam - General Respiratory respiratory effort/rhythm Overall: no retractions 02/22/2019 None Full Exam - General Respiratory respiratory effort/rhythm Overall: normal rate 02/22/2019 None Full Exam - General Respiratory auscultation Overall: breath sounds clear bilater ally 02/22/2019 None Full Exam - General Cardiovascular auscultation of heart Overall: regular rate 02/22/2019 None Full Exam - General Cardiovascular auscultation of heart Murmur: previously known murmur unchanged 02/22/2019 None Full Exam - General Ears/Nose/Throat oral cavity/pharynx/larynx Oropharynx: postnasal drainage 02/22/2019 None Full Exam - General Ears/Nose/Throat internal nose Sinus tenderness: left maxillary 02/22/2019 None Full Exam - General Ears/Nose/Throat internal nose Sinus tenderness: right maxillary 02/22/2019 None Full Exam - General Lymphatic neck nodes Overall: anterior cervical chain halle ign 02/22/2019 None Full Exam - General Lymphatic neck nodes Overall: posterior cervical chain be nign 02/22/2019 None Full Exam - General Neurologic mental status Overall: alert 9 None Full Exam - General Neurologic mental status Overall: oriented 02/22/2019 None Full Exam - General Constitutional general appearance Overall: well nourished 11/25/2018 None Full Exam - General Constitutional general appearance Overall: well developed 11/25/2018 None Full Exam - General Constitutional general appearance Overall: in no acute distress 11/25/2018 None Full Exam - General Neurologic mental status Overall: alert 9 None Full Exam - General Neurologic mental status Overall: oriented 11/25/2018 None Full Exam - General Psychiatric mood and affect Overall: normal mood and affect 11/25/2018 None Full Exam - General Musculoskeletal spine, ribs and pelvis Spine: tender @ cervical spine 11/25/2018 None Full Exam - General Musculoskeletal gait and station Station: kyphosis 11/25/2018 None Full Exam - General Psychiatric mood and affect Overall: normal mood and affect 11/19/2018 None Full Exam - General Neurologic mental status Overall: oriented 11/19/2018 None Full Exam - General Neurologic mental status Overall: alert 9 None Full Exam - General Lymphatic neck nodes Right anterior cervical chain: tende r 11/19/2018 None Full Exam - General Lymphatic neck nodes Right anterior cervical chain: shott y 11/19/2018 None Full Exam - General Lymphatic neck nodes Left anterior cervical chain: tender 11/19/2018 None Full Exam - General Lymphatic neck nodes Left anterior cervical chain: shotty 11/19/2018 None Full Exam - General Cardiovascular auscultation of heart Overall: no murmurs 11/19/2018 None Full Exam - General Cardiovascular auscultation of heart Overall: normal heart sounds 11/19/2018 None Full Exam - General Cardiovascular auscultation of heart Overall: regular rate 11/19/2018 None Full Exam - General Respiratory auscultation Overall: breath sounds clear bilater ally 11/19/2018 None Full Exam - General Neck inspection of neck Overall: no masses 11/19/2018 None Full Exam - General Neck inspection of neck Overall: normal size 11/19/2018 None Full Exam - General Ears/Nose/Throat oral cavity/pharynx/larynx Oropharynx: postnasal drainage 11/19/2018 None Full Exam - General Ears/Nose/Throat internal nose Drainage: cloudy 11/19/2018 None Full Exam - General Ears/Nose/Throat internal nose Turbinates: hypertrophy 11/19/2018 None Full Exam - General Ears/Nose/Throat internal nose Turbinates: erythema 11/19/2018 None Full Exam - General Ears/Nose/Throat otoscopic exam Right tympanic membrane: air- fluid level 11/19/2018 None Full Exam - General Ears/Nose/Throat otoscopic exam Left tympanic membrane: air- fluid level 11/19/2018 None Full Exam - General Ears/Nose/Throat otoscopic exam Overall: external auditory canals clear 11/19/2018 None Full Exam - General Constitutional general appearance Overall: in no acute distress 11/19/2018 None Full Exam - General Constitutional general appearance Overall: well developed 11/19/2018 None Full Exam - General Constitutional general appearance Overall: well nourished 11/19/2018 None Full Exam - General Constitutional general appearance Overall: well nourished 07/22/2018 None Full Exam - General Constitutional general appearance Overall: well developed 07/22/2018 None Full Exam - General Constitutional general appearance Overall: in no acute distress 07/22/2018 None Full Exam - General Neurologic mental status Overall: alert 9 None Full Exam - General Neurologic mental status Overall: oriented 07/22/2018 None Full Exam - General Psychiatric mood and affect Overall: normal mood and affect 07/22/2018 None Full Exam - General Respiratory auscultation Overall: breath sounds clear bilater ally 07/22/2018 None Full Exam - General Cardiovascular auscultation of heart Overall: regular rate 07/22/2018 None Full Exam - General Cardiovascular auscultation of heart Overall: normal heart sounds 07/22/2018 None Full Exam - General Cardiovascular auscultation of heart S4 (atrial gallop): present 07/22/2018 None Full Exam - General Cardiovascular auscultation of heart Murmur: previously known murmur unchanged 07/22/2018 None Full Exam - General Cardiovascular extremities Overall: no clubbing 07/22/2018 None Full Exam - General Cardiovascular extremities Overall: No cyanosis 07/22/2018 None Full Exam - General Constitutional general appearance Overall: well nourished 04/21/2018 None Full Exam - General Constitutional general appearance Overall: well developed 04/21/2018 None Full Exam - General Constitutional general appearance Overall: in no acute distress 04/21/2018 None Full Exam - General Neurologic mental status Overall: alert 8 None Full Exam - General Neurologic mental status Overall: oriented 04/21/2018 None Full Exam - General Psychiatric mood and affect Overall: normal mood and affect 04/21/2018 None Full Exam - General Respiratory auscultation Overall: breath sounds clear bilater ally 04/21/2018 None Full Exam - General Cardiovascular auscultation of heart Overall: regular rate 04/21/2018 None Full Exam - General Cardiovascular auscultation of heart Overall: normal heart sounds 04/21/2018 None Full Exam - General Cardiovascular auscultation of heart S4 (atrial gallop): present 04/21/2018 None Full Exam - General Cardiovascular auscultation of heart Murmur: previously known murmur unchanged 04/21/2018 None Full Exam - General Cardiovascular extremities Overall: no clubbing 04/21/2018 None Full Exam - General Cardiovascular extremities Overall: No edema 04/21/2018 None Full Exam - General Cardiovascular extremities Overall: No cyanosis 04/21/2018 None Full Exam - General Neck inspection of neck Overall: normal size 04/21/2018 None Full Exam - General Neck inspection of neck Overall: no masses 04/21/2018 None Full Exam - General Abdomen abdominal exam Overall: no masses 04/21/2018 None Full Exam - General Abdomen abdominal exam Overall: no tenderness 04/21/2018 None Full Exam - General Abdomen abdominal exam Overall: normal bowel sounds 04/21/2018 None Full Exam - General Abdomen abdominal exam Overall: soft 04/21/2018 None Full Exam - General Constitutional general appearance Overall: well nourished 01/06/2018 None Full Exam - General Constitutional general appearance Overall: in no acute distress 01/06/2018 None Full Exam - General Cardiovascular auscultation of heart Overall: regular rate 01/06/2018 None Full Exam - General Cardiovascular auscultation of heart Overall: no murmurs 01/06/2018 None Full Exam - General Cardiovascular extremities Overall: no clubbing 01/06/2018 None Full Exam - General Respiratory respiratory effort/rhythm Overall: no retractions 01/06/2018 None Full Exam - General Respiratory respiratory effort/rhythm Overall: normal rate 01/06/2018 None Full Exam - General Respiratory auscultation Overall: breath sounds clear bilater ally 01/06/2018 None Full Exam - General Cardiovascular inspection of pedal pulses Overall: strong, equal bilaterally 01/06/2018 None Full Exam - General Neurologic mental status Overall: alert 8 None Full Exam - General Neurologic mental status Overall: oriented 01/06/2018 None Full Exam - General Constitutional general appearance Overall: well nourished 10/22/2017 None Full Exam - General Constitutional general appearance Overall: well developed 10/22/2017 None Full Exam - General Constitutional general appearance Overall: in no acute distress 10/22/2017 None Full Exam - General Integument inspection of skin Location: face 10/22/2017 left methodist, left lower jaw, left nasal bridge, right methodist, right middle cheek, right helix Full Exam - General Neurologic mental status Overall: alert 8 None Full Exam - General Neurologic mental status Overall: oriented 10/22/2017 None Full Exam - General Psychiatric mood and affect Overall: normal mood and affect 10/22/2017 None Full Exam - General Constitutional general appearance Overall: well nourished 04/22/2017 None Full Exam - General Constitutional general appearance Overall: well developed 04/22/2017 None Full Exam - General Constitutional general appearance Overall: in no acute distress 04/22/2017 None Full Exam - General Neurologic mental status Overall: alert 7 None Full Exam - General Neurologic mental status Overall: oriented 04/22/2017 None Full Exam - General Psychiatric mood and affect Overall: normal mood and affect 04/22/2017 None Full Exam - General Respiratory auscultation Overall: breath sounds clear bilater ally 04/22/2017 None Full Exam - General Cardiovascular auscultation of heart Overall: regular rate 04/22/2017 None Full Exam - General Cardiovascular auscultation of heart Overall: normal heart sounds 04/22/2017 None Full Exam - General Cardiovascular auscultation of heart Murmur: previously known murmur unchanged 04/22/2017 None Full Exam - General Cardiovascular auscultation of heart S4 (atrial gallop): present 04/22/2017 None Full Exam - General Cardiovascular extremities Overall: no clubbing 04/22/2017 None Full Exam - General Cardiovascular extremities Overall: No cyanosis 04/22/2017 None Full Exam - General Cardiovascular extremities Edema present: pitting 04/22/2017 trace to 1 plus on left Full Exam - General Abdomen abdominal exam Overall: no masses 04/22/2017 None Full Exam - General Abdomen abdominal exam Overall: no tenderness 04/22/2017 None Full Exam - General Abdomen abdominal exam Overall: normal bowel sounds 04/22/2017 None Full Exam - General Abdomen abdominal exam Overall: soft 04/22/2017 None Full Exam - General Neck inspection of neck Overall: normal size 04/22/2017 None Full Exam - General Neck inspection of neck Overall: no masses 04/22/2017 None Full Exam - General Musculoskeletal left lower extremity Inspection - left knee: swelling 04/22/2017 None Full Exam - General Musculoskeletal left lower extremity Inspection - left knee: redness 04/22/2017 None Full Exam - General Musculoskeletal left lower extremity Palpation - left knee: warm 04/22/2017 with some mild redness ex tending down solis Full Exam - General Musculoskeletal gait and station Gait: antalgic 04/22/2017 None Full Exam - General Musculoskeletal gait and station Gait: using cane 04/22/2017 None Full Exam - General Musculoskeletal gait and station Gait: asymmetric 04/22/2017 None Full Exam - General Constitutional general appearance Overall: well nourished 10/10/2016 None Full Exam - General Constitutional general appearance Overall: well developed 10/10/2016 None Full Exam - General Constitutional general appearance Overall: in no acute distress 10/10/2016 None Full Exam - General Neurologic mental status Overall: alert 7 None Full Exam - General Neurologic mental status Overall: oriented 10/10/2016 None Full Exam - General Psychiatric mood and affect Overall: normal mood and affect 10/10/2016 None Full Exam - General Respiratory auscultation Overall: breath sounds clear bilater ally 10/10/2016 None Full Exam - General Cardiovascular auscultation of heart Overall: regular rate 10/10/2016 None Full Exam - General Cardiovascular auscultation of heart Overall: normal heart sounds 10/10/2016 None Full Exam - General Cardiovascular auscultation of heart S4 (atrial gallop): present 10/10/2016 None Full Exam - General Cardiovascular auscultation of heart Murmur: previously known murmur unchanged 10/10/2016 None Full Exam - General Cardiovascular extremities Overall: no clubbing 10/10/2016 None Full Exam - General Cardiovascular extremities Overall: No edema 10/10/2016 None Full Exam - General Cardiovascular extremities Overall: No cyanosis 10/10/2016 None Full Exam - General Neck inspection of neck Overall: normal size 10/10/2016 None Full Exam - General Neck inspection of neck Overall: no masses 10/10/2016 None Full Exam - General Cardiovascular inspection of carotid pulses Right carotid pulse: bruit 10/10/2016 None Full Exam - General Cardiovascular inspection of carotid pulses Left carotid pulse: a normal exam 10/10/2016 None Full Exam - General Constitutional general appearance Overall: well nourished 08/31/2015 None Full Exam - General Constitutional general appearance Overall: well developed 08/31/2015 None Full Exam - General Constitutional general appearance Overall: in no acute distress 08/31/2015 None Full Exam - General Ears/Nose/Throat external ear Overall: normal appearance 08/31/2015 None Full Exam - General Ears/Nose/Throat external nose Overall: benign appearance 08/31/2015 None Full Exam - General Ears/Nose/Throat internal nose Overall: bilateral nasal cavities clear 08/31/2015 None Full Exam - General Ears/Nose/Throat lips/teeth/gingiva Overall: benign lips 08/31/2015 None Full Exam - General Ears/Nose/Throat oral cavity/pharynx/larynx Overall: oral mucosa clear 08/31/2015 None Full Exam - General Ears/Nose/Throat oral cavity/pharynx/larynx Overall: oropharyngeal mucosa clear 08/31/2015 None Full Exam - General Respiratory auscultation Diffuse: rhonchi 08/31/2015 None Full Exam - General Respiratory auscultation Diffuse: expiratory wheezes 08/31/2015 None Full Exam - General Respiratory auscultation Diffuse: inspiratory wheezes 08/31/2015 None Full Exam - General Cardiovascular auscultation of heart Overall: regular rate 08/31/2015 None Full Exam - General Cardiovascular auscultation of heart Overall: normal heart sounds 08/31/2015 None Full Exam - General Lymphatic neck nodes Overall: anterior cervical chain halle ign 08/31/2015 None Full Exam - General Lymphatic neck nodes Overall: posterior cervical chain be nign 08/31/2015 None Full Exam - General Integument inspection of skin Overall: no rash, lesions 08/31/2015 None Full Exam - General Neurologic mental status Overall: alert 6 None Full Exam - General Neurologic mental status Overall: oriented 08/31/2015 None Full Exam - General Constitutional general appearance Overall: well nourished 08/29/2015 None Full Exam - General Constitutional general appearance Overall: well developed 08/29/2015 None Full Exam - General Constitutional general appearance Overall: in no acute distress 08/29/2015 None Full Exam - General Respiratory auscultation Left lower lung field: inspiratory w heezes 08/29/2015 None Full Exam - General Respiratory auscultation Left lower lung field: expiratory wh eezes 08/29/2015 None Full Exam - General Respiratory auscultation Left upper lung field: expiratory wh eezes 08/29/2015 None Full Exam - General Respiratory auscultation Right upper lung field: expiratory w heezes 08/29/2015 None Full Exam - General Respiratory auscultation Right middle lung field: expiratory wheezes 08/29/2015 None Full Exam - General Respiratory auscultation Right lower lung field: expiratory w heezes 08/29/2015 None Full Exam - General Cardiovascular auscultation of heart Overall: regular rate 08/29/2015 None Full Exam - General Cardiovascular auscultation of heart Overall: normal heart sounds 08/29/2015 None Full Exam - General Cardiovascular auscultation of heart Overall: no murmurs 08/29/2015 None Full Exam - General Psychiatric mood and affect Overall: normal mood and affect 08/29/2015 None Full Exam - General Ears/Nose/Throat oral cavity/pharynx/larynx Overall: oral mucosa clear 08/29/2015 None Full Exam - General Ears/Nose/Throat otoscopic exam Left tympanic membrane: air- fluid level 08/29/2015 None Full Exam - General Ears/Nose/Throat otoscopic exam Right tympanic membrane: a normal exam 08/29/2015 None Full Exam - General Constitutional general appearance Overall: well developed 07/24/2015 None Full Exam - General Constitutional general appearance Overall: well nourished 07/24/2015 None Full Exam - General Constitutional general appearance Overall: in no acute distress 07/24/2015 None Full Exam - General Respiratory auscultation Overall: breath sounds clear bilater ally 07/24/2015 None Full Exam - General Cardiovascular auscultation of heart Murmur: previously known murmur unchanged 07/24/2015 None Full Exam - General Cardiovascular auscultation of heart Rhythm: regular rhythm 07/24/2015 None Full Exam - General Cardiovascular auscultation of heart Rate: regular rate 07/24/2015 None Full Exam - General Musculoskeletal right lower extremity Palpation - right knee: crepitus 07/24/2015 None Full Exam - General Musculoskeletal right lower extremity Muscle Strength/Tone - right knee: quadriceps 07/24/2015 No ne Full Exam - General Musculoskeletal right lower extremity Muscle Strength/Tone - right knee: weak 07/24/2015 None Full Exam - General Musculoskeletal right lower extremity ROM - right knee: crepitus 07/24/2015 None Full Exam - General Musculoskeletal left lower extremity Palpation - left knee: crepitus 07/24/2015 None Full Exam - General Musculoskeletal left lower extremity ROM - left knee: crepitus 07/24/2015 None Full Exam - General Musculoskeletal right lower extremity Inspection - right knee: varus deformity 07/24/2015 None Full Exam - General Musculoskeletal left lower extremity Muscle Strength/Tone - left knee: quadriceps 07/24/2015 No ne Full Exam - General Musculoskeletal left lower extremity Muscle Strength/Tone - left knee: weak 07/24/2015 None Full Exam - General Psychiatric mood and affect Overall: normal mood and affect 07/24/2015 None Full Exam - General Ears/Nose/Throat oral cavity/pharynx/larynx Overall: oral mucosa clear 07/24/2015 None Full Exam - General Ears/Nose/Throat oral cavity/pharynx/larynx Posterior Pharynx: a normal exam 07/24/2015 None Full Exam - General Ears/Nose/Throat otoscopic exam Overall: external auditory canals clear 07/24/2015 None Full Exam - General Ears/Nose/Throat otoscopic exam Overall: tympanic membranes clear 07/24/2015 None Full Exam - General Ears/Nose/Throat lips/teeth/gingiva Teeth: wears dentures 07/24/2015 None Full Exam - General Constitutional general appearance Overall: well nourished 05/01/2015 None Full Exam - General Constitutional general appearance Overall: well developed 05/01/2015 None Full Exam - General Constitutional general appearance Overall: in no acute distress 05/01/2015 None Full Exam - General Neurologic mental status Overall: alert 5 None Full Exam - General Neurologic mental status Overall: oriented 05/01/2015 None Full Exam - General Psychiatric mood and affect Overall: normal mood and affect 05/01/2015 None Full Exam - General Musculoskeletal gait and station Gait: antalgic 05/01/2015 None Full Exam - General Cardiovascular extremities Overall: no clubbing 05/01/2015 None Full Exam - General Cardiovascular extremities Overall: No cyanosis 05/01/2015 None Full Exam - General Cardiovascular extremities Edema present: severity 1+ - 4+: trace 05/01/2015 None Full Exam - General Cardiovascular inspection of pedal pulses Overall: strong, equal bilaterally 05/01/2015 None Full Exam - General Constitutional general appearance Overall: well nourished 01/17/2015 None Full Exam - General Constitutional general appearance Overall: well developed 01/17/2015 None Full Exam - General Constitutional general appearance Overall: in no acute distress 01/17/2015 None Full Exam - General Neurologic mental status Overall: alert 5 None Full Exam - General Neurologic mental status Overall: oriented 01/17/2015 None Full Exam - General Psychiatric mood and affect Overall: normal mood and affect 01/17/2015 None Full Exam - General Respiratory auscultation Overall: breath sounds clear bilater ally 01/17/2015 None Full Exam - General Cardiovascular auscultation of heart Overall: regular rate 01/17/2015 None Full Exam - General Cardiovascular auscultation of heart Overall: normal heart sounds 01/17/2015 None Full Exam - General Cardiovascular auscultation of heart S3 (ventricular gallop): present 01/17/2015 None Full Exam - General Cardiovascular auscultation of heart Murmur: previously known murmur unchanged 01/17/2015 None Full Exam - General Cardiovascular extremities Overall: no clubbing 01/17/2015 None Full Exam - General Cardiovascular extremities Overall: No edema 01/17/2015 None Full Exam - General Cardiovascular extremities Overall: No cyanosis 01/17/2015 None Full Exam - General Cardiovascular auscultation of heart Rhythm: irregular rhythm 01/17/2015 frequent skipped beats Full Exam - General Constitutional general appearance Overall: well nourished 09/29/2014 None Full Exam - General Constitutional general appearance Overall: well developed 09/29/2014 None Full Exam - General Constitutional general appearance Overall: in no acute distress 09/29/2014 None Full Exam - General Neurologic mental status Overall: alert 5 None Full Exam - General Neurologic mental status Overall: oriented 09/29/2014 None Full Exam - General Psychiatric mood and affect Overall: normal mood and affect 09/29/2014 None Full Exam - General Integument inspection of skin Location: neck 09/29/2014 left lateral neck/jawline with 8mm eryth emic papule with scaling Full Exam - General Constitutional general appearance Overall: well nourished 08/04/2014 None Full Exam - General Constitutional general appearance Overall: well developed 08/04/2014 None Full Exam - General Constitutional general appearance Overall: in no acute distress 08/04/2014 None Full Exam - General Constitutional general appearance Assistive Device: crutches 08/04/2014 None Full Exam - General Neurologic mental status Overall: alert 201 5 None Full Exam - General Neurologic mental status Overall: oriented 08/04/2014 None Full Exam - General Psychiatric mood and affect Overall: normal mood and affect 08/04/2014 None Full Exam - General Respiratory auscultation Overall: breath sounds clear bilater ally 08/04/2014 None Full Exam - General Cardiovascular auscultation of heart Overall: regular rate 08/04/2014 None Full Exam - General Cardiovascular auscultation of heart Overall: normal heart sounds 08/04/2014 None Full Exam - General Cardiovascular auscultation of heart S3 (ventricular gallop): present 08/04/2014 None Full Exam - General Cardiovascular auscultation of heart Murmur: previously known murmur unchanged 08/04/2014 None Full Exam - General Cardiovascular extremities Overall: no clubbing 08/04/2014 None Full Exam - General Cardiovascular extremities Overall: No edema 08/04/2014 None Full Exam - General Cardiovascular extremities Overall: No cyanosis 08/04/2014 None Full Exam - General Neck inspection of neck Overall: normal size 08/04/2014 None Full Exam - General Neck inspection of neck Overall: no masses 08/04/2014 None Full Exam - General Abdomen abdominal exam Overall: no masses 08/04/2014 None Full Exam - General Abdomen abdominal exam Overall: no tenderness 08/04/2014 None Full Exam - General Abdomen abdominal exam Overall: normal bowel sounds 08/04/2014 None Full Exam - General Abdomen abdominal exam Overall: soft 08/04/2014 None Full Exam - General Musculoskeletal gait and station Gait: antalgic 08/04/2014 None Full Exam - General Musculoskeletal right lower extremity ROM - right knee: crepitus 08/04/2014 None Full Exam - General Ears/Nose/Throat otoscopic exam Overall: external auditory canals clear 08/04/2014 None Full Exam - General Ears/Nose/Throat otoscopic exam Overall: tympanic membranes clear 08/04/2014 None Full Exam - General Ears/Nose/Throat internal nose Overall: bilateral nasal cavities clear 08/04/2014 None Full Exam - General Ears/Nose/Throat oral cavity/pharynx/larynx Overall: oral mucosa clear 08/04/2014 None Full Exam - General Constitutional general appearance Overall: well nourished 02/18/2014 None Full Exam - General Constitutional general appearance Overall: well developed 02/18/2014 None Full Exam - General Constitutional general appearance Overall: in no acute distress 02/18/2014 None Full Exam - General Ears/Nose/Throat external ear Overall: normal appearance 02/18/2014 None Full Exam - General Cardiovascular auscultation of heart Overall: regular rate 02/18/2014 None Full Exam - General Cardiovascular auscultation of heart Overall: normal heart sounds 02/18/2014 None Full Exam - General Cardiovascular auscultation of heart Murmur: previously known murmur unchanged 02/18/2014 None Full Exam - General Ears/Nose/Throat oral cavity/pharynx/larynx Overall: oral mucosa clear 02/18/2014 None Full Exam - General Respiratory auscultation Overall: breath sounds clear bilater ally 02/18/2014 None Full Exam - General Abdomen abdominal exam Epigastric: tender to palpation 02/18/2014 None Full Exam - General Psychiatric orientation/consciousness Overall: oriented to person, place and time 02/18/2014 None Full Exam - General Constitutional general appearance Overall: well nourished 07/29/2013 None Full Exam - General Constitutional general appearance Overall: well developed 07/29/2013 None Full Exam - General Constitutional general appearance Overall: in no acute distress 07/29/2013 None Full Exam - General Neurologic mental status Overall: alert 4 None Full Exam - General Neurologic mental status Overall: oriented 07/29/2013 None Full Exam - General Psychiatric mood and affect Overall: normal mood and affect 07/29/2013 None Full Exam - General Constitutional general appearance Overall: well nourished 05/26/2013 None Full Exam - General Constitutional general appearance Overall: well developed 05/26/2013 None Full Exam - General Constitutional general appearance Overall: in no acute distress 05/26/2013 None Full Exam - General Neurologic mental status Overall: alert 3 None Full Exam - General Neurologic mental status Overall: oriented 05/26/2013 None Full Exam - General Psychiatric mood and affect Overall: normal mood and affect 05/26/2013 None Full Exam - General Respiratory auscultation Overall: breath sounds clear bilater ally 05/26/2013 None Full Exam - General Cardiovascular auscultation of heart Overall: regular rate 05/26/2013 None Full Exam - General Cardiovascular auscultation of heart Overall: normal heart sounds 05/26/2013 None Full Exam - General Cardiovascular auscultation of heart S3 (ventricular gallop): present 05/26/2013 None Full Exam - General Cardiovascular auscultation of heart Murmur: previously known murmur unchanged 05/26/2013 None Full Exam - General Constitutional general appearance Overall: well nourished 04/28/2013 None Full Exam - General Constitutional general appearance Overall: well developed 04/28/2013 None Full Exam - General Constitutional general appearance Overall: in no acute distress 04/28/2013 None Full Exam - General Neurologic mental status Overall: alert 3 None Full Exam - General Neurologic mental status Overall: oriented 04/28/2013 None Full Exam - General Psychiatric mood and affect Overall: normal mood and affect 04/28/2013 None Full Exam - General Respiratory auscultation Overall: breath sounds clear bilater ally 04/28/2013 None Full Exam - General Cardiovascular auscultation of heart Overall: regular rate 04/28/2013 None Full Exam - General Cardiovascular auscultation of heart Overall: normal heart sounds 04/28/2013 None Full Exam - General Cardiovascular auscultation of heart S3 (ventricular gallop): present 04/28/2013 None Full Exam - General Constitutional general appearance Overall: well nourished 03/11/2013 None Full Exam - General Constitutional general appearance Overall: well developed 03/11/2013 None Full Exam - General Constitutional general appearance Overall: in no acute distress 03/11/2013 None Full Exam - General Neurologic mental status Overall: alert 3 None Full Exam - General Neurologic mental status Overall: oriented 03/11/2013 None Full Exam - General Psychiatric mood and affect Overall: normal mood and affect 03/11/2013 None Full Exam - General Neck inspection of neck Overall: normal size 03/11/2013 None Full Exam - General Neck inspection of neck Overall: no masses 03/11/2013 None Full Exam - General Ears/Nose/Throat otoscopic exam Overall: external auditory canals clear 03/11/2013 None Full Exam - General Ears/Nose/Throat otoscopic exam Overall: tympanic membranes clear 03/11/2013 None Full Exam - General Ears/Nose/Throat internal nose Overall: bilateral nasal cavities clear 03/11/2013 None Full Exam - General Ears/Nose/Throat oral cavity/pharynx/larynx Overall: oral mucosa clear 03/11/2013 None Full Exam - General Respiratory auscultation Overall: breath sounds clear bilater ally 03/11/2013 None Full Exam - General Cardiovascular auscultation of heart Overall: regular rate 03/11/2013 None Full Exam - General Cardiovascular auscultation of heart Overall: normal heart sounds 03/11/2013 None Full Exam - General Cardiovascular auscultation of heart S3 (ventricular gallop): present 03/11/2013 None Full Exam - General Cardiovascular extremities Overall: no clubbing 03/11/2013 None Full Exam - General Cardiovascular extremities Overall: No cyanosis 03/11/2013 None Full Exam - General Abdomen abdominal exam Overall: no masses 03/11/2013 None Full Exam - General Abdomen abdominal exam Overall: no tenderness 03/11/2013 None Full Exam - General Abdomen abdominal exam Overall: normal bowel sounds 03/11/2013 None Full Exam - General Abdomen abdominal exam Overall: soft 03/11/2013 None Full Exam - General Musculoskeletal spine, ribs and pelvis Overall: good posture 03/11/2013 None Full Exam - General Musculoskeletal spine, ribs and pelvis Overall: ribs benign 03/11/2013 None Full Exam - General Musculoskeletal spine, ribs and pelvis Overall: spine benign 03/11/2013 None Full Exam - General Musculoskeletal gait and station Overall: normal gait 03/11/2013 None Full Exam - General Musculoskeletal gait and station Overall: normal station 03/11/2013 None Procedures Procedure Codes Date THER/PROPH/DIAG INJ SC/IM CPT-4: 89112 02/22/2019 TRIAMCINOLONE ACET I [place] NOS CPT-4: J3301 02/22/2019 FLU VACC PRSV FREE I NC ANTIG 65 AND OLDER CPT-4: 13172 04/21/2018 ADMIN INFLUENZA VIRU S VAC CPT-4: G0008 04/21/2018 PRESCRIP TRANSMIT A ERX SY CPT-4: G8553 04/21/2018 DESTRUCT PREMALG LES ION (Cryosurgery) CPT-4: 64996 10/22/2017 FLU VACC PRSV FREE I NC ANTIG 65 AND OLDER CPT-4: 28365 04/22/2017 ADMIN INFLUENZA VIRU S VAC CPT-4: G0008 04/22/2017 PRESCRIP TRANSMIT A ERX SY CPT-4: G8553 10/10/2016 PRESCRIP TRANSMIT A ERX SY CPT-4: G8553 08/29/2015 ROUTINE VENIPUNCTURE CPT-4: 67879 07/26/2015 ASSAY OF FREE THYROXINE CPT-4: 29529 07/26/2015 ASSAY THYROID STIM H ORMONE CPT-4: 28917 07/26/2015 COMPREHEN METABOLIC PANEL CPT-4: 35374 07/26/2015 COMPLETE CBC W/AUTO DIFF WBC CPT-4: 72528 07/26/2015 LIPID PANEL CPT-4: 13576 07/26/2015 ASSAY OF PSA TOTAL CPT- 4: 60403 07/26/2015 A1C HPLC CPT-4: 96281 07/26/2015 ROUTINE VENIPUNCTURE CPT-4: 85739 01/17/2015 ASSAY OF FREE THYROXINE CPT-4: 05882 01/17/2015 ASSAY THYROID STIM H ORMONE CPT-4: 74898 01/17/2015 COMPREHEN METABOLIC PANEL CPT-4: 91011 01/17/2015 COMPLETE CBC W/AUTO DIFF WBC CPT-4: 65712 01/17/2015 A1C HPLC CPT-4: 48626 01/17/2015 VITAMIN B-12 CPT-4: 35840 01/17/2015 PPPS, subseq visit CPT- 4: G0439 08/04/2014 PRESCRIP TRANSMIT A ERX SY CPT-4: G8553 02/18/2014 FLUZONE, 5ML (Medicare) CPT-4: Q2038 07/22/2013 ADMIN INFLUENZA VIRU S VAC CPT-4: G0008 07/22/2013 PRESCRIP TRANSMIT A ERX SY CPT-4: G8553 04/28/2013 ROUTINE VENIPUNCTURE CPT-4: 54164 03/12/2013 VITAMIN D TOTAL (25 HYDROXY) CPT-4: 23094 03/12/2013 VITAMIN B 12 FOLIC ACID CPT-4: 96911|98542 03/12/2013 A1C GLYCOSYLATED HEM OGLOBIN TEST CPT-4: 60919 03/12/2013 ASSAY OF BLOOD/URIC ACID CPT-4: 57547 03/12/2013 ASSAY OF FREE THYROXINE CPT-4: 23877 03/12/2013 ASSAY THYROID STIM H ORMONE CPT-4: 08013 03/12/2013 CUR TOBACCO NON-USER CPT-4: G8457 03/11/2013 PRESCRIP TRANSMIT A ERX SY CPT-4: G8553 03/11/2013 Vital Signs Date Vital 02/22/2019 Blood Pressure 1: 132/80 Code: 8480-6 Heart Rate 1: 84 bpm SpO2: 97% Temperature: 35.9 (C ) / 96.6 (F) Weight: 236 lbs 11/25/2018 Blood Pressure 1: 126/70 Code: 8480-6 Heart Rate 1: 68 bpm Respiratory Rate: 18 bpm SpO2: 96% Temperature: 36.6 (C ) / 97.8 (F) 11/19/2018 Blood Pressure 1: 106/62 Code: 8480-6 Heart Rate 1: 92 bpm Respiratory Rate: 20 bpm SpO2: 96% Temperature: 36.8 (C ) / 98.2 (F) Weight: 235 lbs 07/22/2018 Blood Pressure 1: 156/70 Code: 8480-6 BMI: 35.0 Code: 04474-1 Heart Rate 1: 68 bpm Height: 5'10" Respiratory Rate: 20 bpm SpO2: 95% Temperature: 36.5 (C ) / 97.7 (F) Weight: 244 lbs 04/21/2018 Blood Pressure 1: 124/80 Code: 8480-6 BMI: 34.4 Code: 62992-1 Heart Rate 1: 80 bpm Height: 5'10" Respiratory Rate: 20 bpm SpO2: 96% Temperature: 37.0 (C ) / 98.6 (F) Weight: 240 lbs 01/06/2018 Blood Pressure 1: 138/82 Code: 8480-6 BMI: 33.9 Code: 83264-3 Heart Rate 1: 96 bpm Height: 5'10" Respiratory Rate: 24 bpm SpO2: 98% Temperature: 35.9 (C ) / 96.6 (F) Weight: 236 lbs 10/22/2017 Blood Pressure 1: 144/70 Code: 8480-6 BMI: 34.7 Code: 38317-7 Heart Rate 1: 72 bpm Height: 5'10" Respiratory Rate: 20 bpm SpO2: 96% Temperature: 36.9 (C ) / 98.4 (F) Weight: 242 lbs 04/22/2017 Blood Pressure 1: 146/82 Code: 8480-6 BMI: 32.9 Code: 02281-5 Heart Rate 1: 104 bpm Height: 5'10" Respiratory Rate: 20 bpm SpO2: 95% Temperature: 36.9 (C ) / 98.5 (F) Weight: 229 lbs 10/10/2016 Blood Pressure 1: 124/64 Code: 8480-6 BMI: 32.9 Code: 05516-3 Heart Rate 1: 64 bpm Height: 5'10" Respiratory Rate: 20 bpm SpO2: 96% Temperature: 36.8 (C ) / 98.3 (F) Weight: 229 lbs 08/31/2015 Blood Pressure 1: 144/74 Code: 8480-6 Heart Rate 1: 92 bpm Respiratory Rate: 24 bpm SpO2: 95% Temperature: 36.6 (C ) / 97.8 (F) Weight: 238 lbs 08/29/2015 Blood Pressure 1: 168/92 Code: 8480-6 Heart Rate 1: 86 bpm Height: Respiratory Rate: 22 bpm SpO2: 97% Temperature: 36.2 (C ) / 97.1 (F) Weight: 07/24/2015 Blood Pressure 1: 124/78 Code: 8480-6 Heart Rate 1: 88 bpm Respiratory Rate: 20 bpm Temperature: 36.2 (C) / 97.1 (F) Weight: 236 lbs 05/01/2015 Blood Pressure 1: 146/90 Code: 8480-6 BMI: 34.1 Code: 82759-3 Heart Rate 1: 80 bpm Height: 5'10" Respiratory Rate: 20 bpm Temperature: 36.8 (C ) / 98.2 (F) Weight: 238 lbs 01/17/2015 Blood Pressure 1: 116/60 Code: 8480-6 BMI: 32.7 Code: 13842-2 Heart Rate 1: 84 bpm Height: 5'10" Respiratory Rate: 20 bpm Temperature: 36.7 (C ) / 98.0 (F) Weight: 228 lbs 09/29/2014 Blood Pressure 1: 136/78 Code: 8480-6 BMI: 33.9 Code: 02974-9 Heart Rate 1: 80 bpm Height: 5'10" Respiratory Rate: 20 bpm Temperature: 36.6 (C ) / 97.9 (F) Weight: 236 lbs 08/04/2014 Blood Pressure 1: 132/70 Code: 8480-6 BMI: 32.9 Code: 34020-7 Heart Rate 1: 72 bpm Height: 5'10" Respiratory Rate: 20 bpm Temperature: 36.7 (C ) / 98.0 (F) Weight: 229 lbs 02/18/2014 Blood Pressure 1: 124/82 Code: 8480-6 Heart Rate 1: 82 bpm Respiratory Rate: 18 bpm Temperature: 36.4 (C) / 97.5 (F) Weight: 232 lbs 07/29/2013 Blood Pressure 1: 146/80 Code: 8480-6 BMI: 34.1 Code: 42102-3 Heart Rate 1: 64 bpm Height: 5'10" Respiratory Rate: 20 bpm Temperature: 36.9 (C ) / 98.5 (F) Weight: 238 lbs 05/26/2013 Blood Pressure 1: 142/90 Code: 8480-6 BMI: 34.0 Code: 36034-3 Heart Rate 1: 84 bpm Height: 5'10" Respiratory Rate: 20 bpm Temperature: 36.7 (C ) / 98.0 (F) Weight: 237 lbs 04/28/2013 Blood Pressure 1: 118/78 Code: 8480-6 BMI: 32.9 Code: 84820-9 Heart Rate 1: 74 bpm Height: 5'10" Respiratory Rate: 20 bpm Temperature: 36.1 (C ) / 97.0 (F) Weight: 229 lbs 03/11/2013 Blood Pressure 1: 146/80 Code: 8480-6 BMI: 31.5 Code: 67214-2 Heart Rate 1: 80 bpm Height: 6' Respiratory Rate: 20 bpm Temperature: 36.8 (C ) / 98.2 (F) Weight: 232 lbs Functional Status No Functional Status data History of Present Illness Symptom Name Status Resu lt Effective Date Notes Location on the left 02/22/2019 None Quality acute 02/22/2019 None Onset and Resolution g radual in onset 02/22/2019 None Location on both sides 11/25/2018 None Location in the direct care provider ior area 11/25/2018 None Onset and Resolution o ngoing 11/25/2018 Patient is taking baclofe n at bedtime. He is hesitant about chiropractor treatment and requests x-ray Quality dull 11/25/2018 None Quality chronic 11/25/2018 None Location in the direct care provider ior area 11/19/2018 None Onset and Resolution w orse during the night 11/19/2018 None Location on both sides 11/19/2018 None Quality fullness 11/19/2018 None Quality breathlessness 11/19/2018 None Quality shortness of b reath 11/19/2018 None Quality aching 11/19/2018 None Location on both sides 11/19/2018 None Quality sharp 11/19/2018 None Onset and Resolution w orse during the night. 11/19/2018 He has been turning oxyge n up at night and also has increased weakness in the morning Quality acute 11/19/2018 None Location diffusely 11/19/2018 None Quality pressure 11/19/2018 None Quality acute 11/19/2018 None Quality chronic 07/22/2018 None Glucose monitoring fas ting 07/22/2018 None Blood glucose levels 1 00-140's 07/22/2018 None Quality chronic 07/22/2018 None Location lumbar-sacral spine 07/22/2018 None Quality chronic 07/22/2018 None Quality discomfort 07/22/2018 None Quality constant 07/22/2018 None Quality acute 07/22/2018 irritated yesterday spasms/spasticity Location on both legs 04/21/2018 None spasms/spasticity Quality rhythmic. 04/21/2018 Patient has been using OT C "restful legs" supplement spasms/spasticity Quality worsening 04/21/2018 None spasms/spasticity Onset and Resolution ongoing 04/21/2018 None hypertension Quality chr onic 04/21/2018 None diabetes mellitus Quality chronic 04/21/2018 None hypothyroid Quality chrome plater roscoe 04/21/2018 None hyperlipidemia Quality c hronic 04/21/2018 None hyperlipidemia Labs TOTA L CHOL;175 04/21/2018 None hyperlipidemia Labs TG;87 04/21/2018 None hyperlipidemia Labs LDL; 95 04/21/2018 None hyperlipidemia Labs HDL: 63 04/21/2018 None hyperlipidemia Labs RATI O: 2.8 04/21/2018 None diabetes mellitus Test results HgbA1c level 6.8 04/21/2018 None diabetes mellitus Glucose monitoring fasting 04/21/2018 None diabetes mellitus Blood glucose levels 110- 150's 04/21/2018 None diaphoresis Quality inte rmittent 01/06/2018 None diaphoresis Quality wors ening 01/06/2018 None diaphoresis Onset and Resolution ongoing 01/06/2018 None hyperlipidemia Quality s table 01/06/2018 None hypertension Quality sta ble 01/06/2018 None diabetes mellitus Severity moderate 01/06/2018 None skin lesion Location on the face 10/22/2017 None skin lesion Location on the back 10/22/2017 None skin lesion Onset and Resolution ongoing 10/22/2017 None hyperlipidemia Labs TOTA L CHOL;143 04/22/2017 None hyperlipidemia Labs TG;87 04/22/2017 None hyperlipidemia Labs LDL; 82 04/22/2017 None hyperlipidemia Labs HDL: 44 04/22/2017 None hyperlipidemia Labs RATI O; 3.3 04/22/2017 None hyperlipidemia Quality c hronic 04/22/2017 None hyperlipidemia Quality s table 04/22/2017 None diabetes mellitus Test results HgbA1c level 6.8 04/22/2017 None diabetes mellitus Quality chronic 04/22/2017 None hypertension Quality chr onic 04/22/2017 None hypertension Quality zain recinos hypertension 04/22/2017 None pain, limb Location on t he right leg 04/22/2017 None pain, limb Quality sharp 04/22/2017 Patient has had single episode but has c oncerns of being heart related issue again pain, limb Quality stabb ing 04/22/2017 None arrhythmia Quality tachy cardia 04/22/2017 None muscle weakness Quality lower extremities 04/22/2017 None muscle weakness Quality fatigue 04/22/2017 None muscle weakness Onset and Resolution ongoing 04/22/2017 None diabetes mellitus Test results HgbA1c level 6.9 10/10/2016 None diabetes mellitus Quality chronic. 10/10/2016 Patient self monitors ins ulin hypertension Quality chr onic 10/10/2016 None hypertension Quality zain recinos hypertension 10/10/2016 None hyperlipidemia Labs TOTA L CHOL;209 10/10/2016 None hyperlipidemia Labs TG;1 11 10/10/2016 None hyperlipidemia Labs LDL; 137 10/10/2016 None hyperlipidemia Labs HDL: 50 10/10/2016 None hyperlipidemia Labs C/HD L RATIO; 4.18 10/10/2016 None hyperlipidemia Quality c hronic 10/10/2016 None diabetes mellitus Glucose monitoring fasting 10/10/2016 None chest pain/pressure Location in the substernal area 10/10/2016 None chest pain/pressure Radiating the left shoulder 10/10/2016 None chest pain/pressure Radiating the jaw 10/10/2016 None chest pain/pressure Quality aching 10/10/2016 Patient taking isosorbide as needed chest pain/pressure Quality intermittent 10/10/2016 None chest pain/pressure Onset of Symptom 4 days ago 10/10/2016 None cough Quality hacking 08/31/2015 None cough Onset and Resolution ongoing 08/31/2015 None cough Location in the ilya ng 08/31/2015 None chest tightness Location on both sides 08/31/2015 None chest tightness Quality dull 08/31/2015 None chest tightness Onset and Resolution ongoing 08/31/2015 None dyspnea Quality breathle ssness 08/31/2015 None dyspnea Quality shortnes s of breath 08/31/2015 None dyspnea Onset and Resolution ongoing 08/31/2015 None cough Onset of Symptom 3 weeks ago 08/31/2015 None cough Location in the th roat 08/29/2015 None cough Quality acute 08/29/2015 None cough Quality dry 08/29/2015 None cough Quality hacking 08/29/2015 None cough Quality worsening 08/29/2015 None cough Quality productive 08/29/2015 None cough Onset and Resolution ongoing 08/29/2015 None cough Onset of Symptom 3 weeks ago 08/29/2015 None chest pain/pressure Location diffusely 08/29/2015 None chest pain/pressure Quality acute 08/29/2015 None chest pain/pressure Quality heavy 08/29/2015 None chest pain/pressure Quality pressure 08/29/2015 None chest pain/pressure Onset of Symptom 3 weeks ago 08/29/2015 None chest tightness Location diffusely 08/29/2015 None chest tightness Quality acute 08/29/2015 None chest tightness Quality worsening 08/29/2015 None chest tightness Onset of Symptom 3 weeks ago 08/29/2015 None chest congestion Quality acute 08/29/2015 None chest congestion Quality thick secretions 08/29/2015 None chest congestion Quality painful 08/29/2015 None chest congestion Onset of Symptom 3 weeks ago 08/29/2015 None hyperglycemia Quality ac [place] 07/24/2015 None knee pain Location on th e left 07/24/2015 None knee pain Location on th e right 07/24/2015 None knee pain Quality dull p ain 07/24/2015 None knee pain Quality tender ness 07/24/2015 None knee pain Quality throbb ing 07/24/2015 None knee pain Onset and Resolution gradual in onset 07/24/2015 None diabetes mellitus Quality insulin dependent 07/24/2015 None diabetes mellitus Severity mild 07/24/2015 None pain, limb Location on b oth legs 05/01/2015 None pain, limb Quality aching 05/01/2015 None pain, limb Quality weakn ess 05/01/2015 None pain, limb Quality givin g out 05/01/2015 None pain, limb Quality worse padmaja 05/01/2015 None diabetes mellitus Quality chronic 05/01/2015 Patient restarted amaryl 4mg at bedtime due to hyperglycemia diabetes mellitus Quality worsening 01/17/2015 Patient increased levemir himself to 25units in morning diabetes mellitus Blood glucose levels 100- 200's 01/17/2015 None muscle weakness Location diffusely 01/17/2015 None muscle weakness Quality lower extremities 01/17/2015 None muscle weakness Onset and Resolution ongoing 01/17/2015 None skin lesion Location on the left cheeck 09/29/2014 None skin lesion Onset and Resolution ongoing 09/29/2014 None skin lesion Onset of Symptom 6 months ago 09/29/2014 None skin lesion Quality eryt hematous 09/29/2014 None skin lesion Quality rais ed 09/29/2014 None skin lesion Quality tend er 09/29/2014 None diabetes mellitus Glucose monitoring twice daily 08/04/2014 None diabetes mellitus Blood glucose levels 100- 130's 08/04/2014 None hyperlipidemia Quality c hronic 08/04/2014 None hypertension Quality sta ble 08/04/2014 None hypertension Quality chr onic 08/04/2014 None nausea Quality acute 02/18/2014 None nausea Onset of Symptom 3 days ago 02/18/2014 None abdominal pain Location diffusely 02/18/2014 None abdominal pain Quality c ramping 02/18/2014 None abdominal pain Onset of Symptom 3 days ago 02/18/2014 None diabetes mellitus Glucose monitoring twice daily and as needed 07/29/2013 None diabetes mellitus Blood glucose levels 100- 160's 07/29/2013 Only taking the lantus--- no amaryl or metformin diabetes mellitus Blood glucose levels 100- 200's 05/26/2013 None diabetes mellitus Quality worsening 05/26/2013 Patient was self adjustin g medications--stopped lantus due to cost so restarted metformin/glimepiride and the later added back levemir hypertension Onset and Resolution ongoing 05/26/2013 None hypertension Onset of Symptom during adulthood 05/26/2013 None paresthesia Location cherise aterally 04/28/2013 None paresthesia Location on both legs 04/28/2013 DC gabapentin paresthesia Onset and Resolution ongoing 04/28/2013 None knee pain Location on th e right 03/11/2013 None diabetes mellitus Glucose monitoring daily to three times daily 03/11/2013 None diabetes mellitus Blood glucose levels between 60 and 120 03/11/2013 None gait abnormality Quality ataxia 03/11/2013 None gait abnormality Quality unsteady 03/11/2013 None hypertension Onset and Resolution ongoing 03/11/2013 None hypertension Quality chr onic 03/11/2013 None hypertension Quality con stant 03/11/2013 None hypertension Quality sta ble 03/11/2013 None gait abnormality Onset and Resolution ongoing 03/11/2013 None weakness Quality muscle weakness 03/11/2013 None weakness Onset and Resolution ongoing 03/11/2013 None weakness Onset of Symptom during adulthood 03/11/2013 None weakness Onset of Symptom 3 months ago 03/11/2013 None arthralgia(s) Location d iffusely 03/11/2013 None Advance Directives No Advance Directive data Encounters Encounter Performer Loca tion Codes Date ([id number]) OFFICE/OUTPA TIENT VISIT EST Diagnosis: Acute sinusitis, unspecified[ICD10: J01.90] Pennie ROSENBAUM Ensyn CPT-4: 56110 02/22/2019 ([id number]) OFFICE/OUTPA TIENT VISIT EST Diagnosis: Cervicalgia[ICD10: M54.2] Xiomara HANLINE DelphineEdvin REED Ens[facility] CPT-4: 73196 11/25/2018 ([id number]) OFFICE/OUTPA TIENT VISIT EST Diagnosis: Acute sinusitis, unspecified[ICD10: J01.90] Diagnosis: Myalgia, unspecified site[ICD10: M79.10] Diagnosis: Cervicalgia[ICD10: M54.2] Xiomara HANLINE DelphineEdvin KODAK [employer] CPT-4: 23706 11/19/2018 ([id number]) OFFICE/OUTPA TIENT VISIT EST Diagnosis: Low back pain[ICD10: M54.5] Diagnosis: Essential (primary) hypertension[ICD10: I10] Diagnosis: 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, 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] Diagnosis: Paroxysmal atrial fibrillation[ICD10: I48.0] Xiomara HANLINE DelphineEdvin RENO MAGALLON [facility] CPT-4: 51054 07/22/2018 ([id number]) OFFICE/OUTPA TIENT VISIT EST Diagnosis: Type 2 diabetes mellitus with diabetic neuropathy, unspecified[ICD10: E11.40] Diagnosis: Hyperlipidemia, unspecified[ICD10: E78.5] Diagnosis: Essential (primary) hypertension[ICD10: I10] Diagnosis: Chronic kidney disease, stage 1[ICD10: N18.1] Diagnosis: Benign prostatic hyperplasia with lower urinary tract symptoms[ICD10: N40.1] Diagnosis: FLU VACCINE[ICD10: Z23] Xiomara BETTENCOURT E-Sign [facility] CPT-4: 42673 04/21/2018 OFFICE/OUTPATIENT SIT EST Diagnosis: Type 2 diabetes mellitus with hyperglycemia[ICD10: E11.65] Diagnosis: Essential (primary) hypertension[ICD10: I10] Diagnosis: Mixed hyperlipidemia[ICD10: E78.2] Diagnosis: Other fatigue[ICD10: R53.83] Pennie [facility]LINE [facility] CPT-[facility]: 41179 01/06/2018 ([id number]) OFFICE/OUTPA TIENT VISIT EST Diagnosis: Type 2 diabetes mellitus with diabetic neuropathy, unspecified[ICD10: E11.40] Diagnosis: Essential (primary) hypertension[ICD10: I10] Diagnosis: Pain in right thigh[ICD10: M79.651] Diagnosis: Pain in left leg[ICD10: M79.605] Diagnosis: Localized swelling, mass and lump, left lower limb[ICD10: R22.42] Diagnosis: OSTEOARTHRISIS MULTI SITES[ICD10: M19.90] Diagnosis: FLU VACCINE[ICD10: Z23] Xiomara MCBRIDE E-Sign [facility] CPT-4: 88038 04/22/2017 ([id number]) OFFICE/OUTPA TIENT VISIT EST Diagnosis: Essential (primary) hypertension[ICD10: I10] Diagnosis: Type 2 diabetes mellitus with hyperglycemia[ICD10: E11.65] Diagnosis: Angina pectoris, unspecified[ICD10: I20.9] Xiomara Renovondakendrick XIOMARA DelphineEdvin RENO MAGALLON [facility] CPT-4: 01339 10/10/2016 ([id number]) OFFICE/OUTPA TIENT VISIT EST Diagnosis: Cough[ICD10: R05] Diagnosis: Wheezing[ICD10: R06.2] Diagnosis: Chronic obstructive pulmonary disease, unspecified[ICD10: J44.9] Shannan LARA DelphineEdvin KODAK [employer] [facility] CPT-4: 43105 08/31/2015 OFFICE/OUTPATIENT SIT EST Diagnosis: Acute bronchitis, unspecified[ICD10: J20.9] Diagnosis: Wheezing[ICD10: R06.2] Kelsie RENAEQUELINE DelphineEdvin REED [facility] CPT-4: 07841 08/29/2015 ([id number]) OFFICE/OUTPA TIENT VISIT EST Diagnosis: Type 2 diabetes mellitus with diabetic neuropathy, unspecified[ICD10: E11.40] Diagnosis: Hyperlipidemia, unspecified[ICD10: E78.5] Diagnosis: Essential (primary) hypertension[ICD10: I10] Diagnosis: Encounter for general adult medical examination without abnormal findings[ICD10: Z00.00] Xiomara BETTENCOURT DO [facility] CPT-4: 71277 07/26/2015 OFFICE/OUTPATIENT SIT EST Diagnosis: Type 2 diabetes mellitus with hyperglycemia[ICD10: E11.65] Diagnosis: Unspecified osteoarthritis, unspecified site[ICD10: M19.90] Diagnosis: Other instability, right knee[ICD10: M25.361] Kelsie Fowler PAUL [facility] CPT-4: 42274 07/24/2015 ([id number]) OFFICE/OUTPA TIENT VISIT EST Diagnosis: Pain in leg, unspecified[ICD10: M79.606] Diagnosis: Type 2 diabetes mellitus with diabetic neuropathy, unspecified[ICD10: E11.40] Xiomara BETTENCOURT [facility] CPT-4: 27359 05/01/2015 ([id number]) OFFICE/OUTPA TIENT VISIT EST Diagnosis: MALAISE AND FATIGUE[ICD9: 780.79] Diagnosis: 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, 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] Diagnosis: CAD[ICD9: 414.00] Diagnosis: ANEMIA NOS[ICD9: 285.9] Xiomara BETTENCOURT DO [facility] CPT-4: 31369 01/17/2015 ([id number]) OFFICE/OUTPA TIENT VISIT EST Diagnosis: Skin lesion[ICD9: 709.9] Xiomara BETTENCOURT DO [facility] CPT-4: 34346 09/29/2014 OFFICE/OUTPATIENT SIT EST Diagnosis: GASTROENTERITIS[ICD9: 558.9] Diagnosis: GERD[ICD9: 530.81] Kelsie BETTENCOURT DO [facility] CPT-4: 61569 02/18/2014 ([id number]) OFFICE/OUTPA TIENT VISIT EST Diagnosis: 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I, UNCONTROLLED[ICD9: 250.02] Xiomara MAGALLON [facility] CPT-4: 08887 07/29/2013 ([id number]) OFFICE/OUTPA TIENT VISIT EST Diagnosis: FLU VACCINE[ICD9: V04.81] Xiomara BETTENCOURT [facility] CPT-4: 29107 07/22/2013 ([id number]) OFFICE/OUTPA TIENT VISIT EST Diagnosis: 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I, UNCONTROLLED[ICD9: 250.02] Diagnosis: HYPERTENSION[ICD9: 401.9] Xiomara BETTENCOURT [facility] CPT-4: 29201 05/26/2013 ([id number]) OFFICE/OUTPA TIENT VISIT EST Diagnosis: MONONEURITIS[ICD9: 355.9] Diagnosis: RESTLESS LEGS SYNDROME[ICD9: 333.94] Diagnosis: HYPERTENSION[ICD9: 401.9] Diagnosis: CAD[ICD9: 414.00] Diagnosis: Weakness[ICD9: 780.79] Xiomara BETTENCOURT [facility] CPT-4: 11029 04/28/2013 ([id number]) OFFICE/OUTPA TIENT VISIT EST Diagnosis: 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[ICD9: 250.01] Diagnosis: MONONEURITIS[ICD9: 355.9] Diagnosis: HYPERLIPIDEMIA NEC/NOS[ICD9: 272.4] Diagnosis: CAD[ICD9: 414.00] Xiomara BETTENCOURT [facility] CPT-4: 27502 03/12/2013 OFFICE/OUTPATIENT SIT NEW Diagnosis: CAD[ICD9: 414.00] Diagnosis: HYPERLIPIDEMIA NEC/NOS[ICD9: 272.4] Diagnosis: HYPERTENSION[ICD9: 401.9] Diagnosis: Neuropathy[ICD9: 355.9] Diagnosis: RESTLESS LEGS SYNDROME[ICD9: 333.94] Xiomara MAGALLON [facility] CPT-4: 18611 03/11/2013 Plan of Care Planned Activity Notes C odes Status Date Visit Diagnosis Plan: Acute sinusitis, unspecified Discussion: 40 mg kenalog given in office. educated patient that injection may increase blood sugar so to call office with any concerns. augmentin bid for 10 days. instructed to call office after antibiotics complete and if no improvement, will need ct of sinuses. ok to continue with flonase. call with any worsening symptoms too. ICD-9 : 461.9 ICD-10 : J01.90 02/22/2019 Appointment: Pennie Pizarro [address] [place] [address] ACUTE ILLNESS 02/22/2019 Patient Education: prednisone- [employer] Coupon [id number] [email or web address] Completed 02/22/2019 Visit Diagnosis Plan: Cervicalgia Di scussion: Check Cervical Spine X-ray Will likely need PT ICD-9 : 723.1 ICD-10 : M54.2 11/25/2018 Appointment: Xiomara Bettencourt WPtel: [address] [place] [address] ACUTE ILLNESS 11/25/2018 Visit Plan: Saline nasal flushes pr n. Tylenol/Motrin prn headache. Notify if persists/symptoms worsening. 11/19/2018 Visit Diagnosis Plan: Acute sinusitis, unspecified Discussion: Improved ICD-9 : 461.9 ICD-10 : J01.90 11/19/2018 Visit Diagnosis Plan: Myalgia, unspecified site Discussion: May be due to levaquin Hold simvastatin Add Vitamin D3 2000u daily Baclofen 10mg po q HS Follow Up: 1 weeks ICD-9 : 729.1 ICD-10 : M79.10 11/19/2018 Visit Diagnosis Plan: Cervicalgia Di scussion: May be due to levaquin or from strain of neck from coughing ICD-9 : 723.1 ICD-10 : M54.2 11/19/2018 Visit NOS Plan: Plan Notes: Saline nasal flushes prn. Tyle... 11/19/2018 Appointment: Xiomara Bettencourt WPtel: [address] [place] [address] ACUTE ILLNESS 11/19/2018 Patient Education: baclofen- [employer] Coupon [id number] [email or web address] Completed 11/19/2018 Visit Diagnosis Plan: Paroxysmal atrial fibrillation Discussion: In NSR today Discussed risk of bleeding with both plavix and eliquis Sees cardiology in 3 mos ICD-9 : 427.31 ICD-10 : I48.0 07/22/2018 Visit Diagnosis Plan: Low back pain Discussion: Topical muscle rub Tylenol prn No NSAIDs ICD-9 : 724.2 ICD-10 : M54.5 07/22/2018 Visit Diagnosis Plan: DM W/O COMPLICATIO N TYPE I, UNCONTROLLED Discussion: Check lab and fwup in 3mos ICD-9 : 250.03 ICD-10 : E10.9 07/22/2018 Visit Diagnosis Plan: Essential (primary) hypertension Discussion: Stable ICD-9 : 401.9 ICD-10 : I10 07/22/2018 Appointment: Xiomara Bettencourt [facility]el[facility] [phone] [facility] [facility] 07/22/2018 Visit Diagnosis Plan: Chronic [...] E11.40 04/21/2018 Visit Diagnosis Plan: Hyperlipidemia, unspecified Discussion: Stable Lab discussed ICD-9 : 272.4 ICD-10 : E78.5 04/21/2018 Visit Diagnosis Plan: Essential (primary) hypertension Discussion: Stable ICD-9 : 401.9 ICD-10 : I10 04/21/2018 Visit Diagnosis Plan: Benign prostatic h yperplasia with lower urinary tract symptoms Discussion: Trial of flomax Call in 1 mo [facility] on how doing Follow Up: 4 months ICD-9 : 600.21 ICD-10 : N40.1 04/21/2018 Appointment: Xiomara Bettencourt WPtel: [address] [place], [place] [phone] [place] FOLLOW UP 04/21/2018 Patient Education: Patient Medication Summary Completed 04/21/2018 Visit Diagnosis Plan: Essential (primary) hypertension Discussion: stable, continue current medications. ICD-9 : 401.9 ICD-10 : I10 01/06/2018 Visit Diagnosis Plan: Other fatigue Discussion: discussed with patient that symptoms could be r/t diabetes and glucose not well controlled, will order/review blood work. instructed to increase water intake to cover dehydration. ICD-9 : 780.79 ICD-10 : R53.83 01/06/2018 Visit Diagnosis Plan: Type 2 diabetes me llitus with hyperglycemia Discussion: will call mag lab for recent [...] ICD-10 : E78.2 01/06/2018 Appointment: Pennie Pizarro [address] [place], [place] [phone] [place] MEDICATION REVIEW 01/06/2018 Patient Education: Patient Medication Summary Completed 01/06/2018 Appointment: Xiomara Bettencourt WPtel: [address] [place], [place] [phone] [place] NO SHOW 01/05/2018 Appointment: Xiomara Bettencourt WPtel: [address] [place], [place] [phone] [place] CANCELED 12/31/2017 Visit Diagnosis Plan: Actinic keratosis Discussion: Cryotherapy as above but will see derm if lesions do not resolve ICD-9 : 702.0 ICD-10 : L57.0 10/22/2017 Appointment: Xiomara Bettencourt WPtel: [address] [place] [id number] ACUTE ILLNESS 10/22/2017 Patient Education: Patient Medication [...] 04/22/2017 Visit Diagnosis Plan: OSTEOARTHRISIS MULTI SITES Discussion: Once again discussed that taking indomethacin with plavix and aspirin is not recommended and makes him high risk for bleeding ICD-9 : 715.98 ICD-10 : M19.90 04/22/2017 Visit Diagnosis Plan: Essential (primary) hypertension Discussion: Slightly elevated today but is anxious about episode had last night ICD-9 : 401.9 ICD-10 : I10 04/22/2017 Visit Diagnosis Plan: Pain in left leg Discussion: Check stat venous doppler due to redness and warmth and recent left TKR--if negative needs to observe left leg for worsening redness and notify surgeon immediately of change ICD-9 : 729.5 ICD-10 : M79.605 04/22/2017 Appointment: Xiomara Bettencourt [facility]el[facility] [phone] [facility] [facility] 04/22/2017 Patient Education: Patient Medication Summary Completed 04/22/2017 Patient Education: Patient Medication Summary Completed 04/16/2017 Care Plan: COMPREHEN METABOLIC PANEL LOINC : 48666-2 Pending 04/16/2017 Care Plan: LIPID PANEL LOINC : 27745-6 Pending 04/16/2017 Care Plan: CBC Pending 04/16/2017 Care Plan: A1C HPLC LO INC : 40460-2 Pending 04/16/2017 Referral: Inocencio Goodson WPtel: [phone] [facility] [id number] [place] Referral Appointment Confirmed 10/14/2016 Visit Diagnosis Plan: Angina pectoris, unspecified Discussion: Continue imdur and see cardiology To ER if chest pain returns ICD-9 : 413.9 ICD-10 : I20.9 10/10/2016 Visit Diagnosis Plan: Type 2 diabetes me llitus with hyperglycemia Discussion: Continue carolinemariel Jones ID Follow Up: 4 months ICD-9 : 250.02 ICD-10 : E11.65 10/10/2016 Appointment: Xiomara Bettencourt WPtel: [phone] [facility] FO[facility] 10/10/2016 Patient Education: Patient Medication Summary Completed 10/10/2016 Patient Education: Patient Medication Summary Completed 09/16/2016 Care Plan: COMPREHEN METABOLIC PANEL LOINC : 60023-6 Pending 09/16/2016 Care Plan: ASSAY THYROID STIM HORMONE Pending 09/16/2016 Care Plan: ASSAY OF FREE THYROXINE Pending 09/16/2016 Care Plan: LIPID PANEL LOINC : 55875-9 Pending 09/16/2016 Care Plan: CBC Pending 09/16/2016 Care Plan: A1C HPLC LO INC : 70493-9 Pending 09/16/2016 Visit Plan: CXR now to further eval uate symptoms Suspect viral since he has been on 2 rounds of antibiotics If chronic lung disease evident, will consider keeping on [employer] long term care Sample inhaler given today with instructions on use Continue oral prednisone, would like to avoid injection if possible considering his DM status and he is stable right now Continue albuterol PRN Will call with CXR results 08/31/2015 Visit Plan: CXR now to further eval uate symptoms Suspect viral since he has been on 2 rounds of antibiotics If chronic lung disease evident, will consider keeping on [employer] long term care Sample inhaler given today with instructions on use Continue oral prednisone, would like to avoid injection if possible considering his DM status and he is stable right now Continue albuterol PRN Will call with CXR results 08/31/2015 Visit Plan: CXR now to further eval uate symptoms Suspect viral since he has been on 2 rounds of antibiotics If chronic lung disease evident, will consider keeping on [employer] long term care Sample inhaler given today with instructions on use Continue oral prednisone, would like to avoid injection if possible considering his DM status and he is stable right now Continue albuterol PRN Will call with CXR results 08/31/2015 Appointment: [facility]an [facility]imes [phone] [facility] 08/31 confirmed- SP ACUTE ILLNESS 08/31/2015 Patient Education: Patient Medication Summary Completed 08/31/2015 Visit Plan: Albuterol INH via SVN e very 4 hours Prednisone 20 mg PO BID Notify for worsening symptoms 08/29/2015 Visit Plan: Albuterol INH via SVN e very 4 hours Prednisone 20 mg PO BID Notify for worsening symptoms 08/29/2015 Appointment: Kelsie Grubbs WPtel: [address] [place], [place] [phone] ACUTE ILLNESS 08/29/2015 Patient Education: Patient Medication Summary Completed 08/29/2015 Appointment: Xiomara Bettencourt WPtel: [address] [place], [place] [phone] 07/26/2015 Patient Education: Patient Medication Summary Completed 07/26/2015 Visit Plan: Return in am for fastin g labs - CBC, CMP, TSH, Free T4, HgbA1C Change Levemir to Toujeo - Continue 35 Units q am - sample given Start physical Therapy for increased quadriceps strengthening and decreased pain in knees, bilaterally. 07/24/2015 Visit Plan: Return in am for fastin g labs - CBC, CMP, TSH, Free T4, HgbA1C Change Levemir to Toujeo - Continue 35 Units q am - sample given Start physical Therapy for increased quadriceps strengthening and decreased pain in knees, bilaterally. 07/24/2015 Appointment: Kelsie Grubbs WPtel: [address] [place], [place] [phone] 07/21 appt confirmed cn FOLLOW UP 07/24/2015 Appointment: Kelsie Grubbs WPtel: [address] [place], [place] [phone] [place] FOLLOW UP 07/24/2015 Patient Education: Patient Medication Summary Completed 07/24/2015 Patient Education: Patient Medication Summary Completed 05/09/2015 Visit Plan: Retry gabapentin at 300 mg q HS Discussed needs testing for PAD--will start with ABIs Discussed spinal stenosis and lumbar deg disc disease as contributing to lower extremity weakness Patient has been ru nning out of insulin due to cost so restarted glimepiride--once again discussed risk of using this medicine with insulin 05/01/2015 Appointment: Xiomara Bettencourt WPtel: [address] [place] [address] 04/28 confirmed~sl ACUTE ILLNESS 05/01/2015 Patient Education: Patient Medication Summary Completed 05/01/2015 Patient Education: Patient Medication Summary Completed 01/19/2015 Care Plan: URINALYSIS AUTO W/O SCOPE LOINC : 79983-1 Pending 01/19/2015 Visit Plan: I have went through his medications in past and stopped meds but he adjusts his meds on his own and has restarted some Stop Amaryl Once again discussed not using indomethacin routinely due to taking leticia vix and aspirin daily and correction use is dangerous Check CBC, CMP, TSH, free T4, B12 and HbA1C Patient has seen Cardiology recently but no cardiac cath done--had chemical stress test 01/17/2015 Visit Plan: I have went through his medications in past and stopped meds but he adjusts his meds on his own and has restarted some Stop Amaryl Once again discussed not using indomethacin routinely due to taking leticia vix and aspirin daily and correction use is dangerous Check CBC, CMP, TSH, free T4, B12 and HbA1C Patient has seen Cardiology recently but no cardiac cath done--had chemical stress test 01/17/2015 Appointment: Xiomara Bettencourt WPtel: [address] [place] [address] 01/16 vm cn ACUTE ILLNESS 01/17/2015 Patient Education: Patient Medication Summary Completed 01/17/2015 Visit Plan: See Dr. Garvin for remov al 09/29/2014 Appointment: Xiomara Bettencourt WPtel: [address] [place] [address] ACUTE ILLNESS 09/29/2014 Referral: Colt Garvin WPtel: [phone] Referral Initiated 09/29/2014 Patient Education: Patient Medication Summary Completed 09/29/2014 Visit Plan: Check CBC, CMP, TSH, fr ee T4, HbA1C, Lipids Accuchecks daily alternating times Patient has been adjusting own meds and has not taken any cholesterol meds for sometime Will check into surgery on right knee at [facility] Check carotid dopplers 08/04/2014 Appointment: Xiomara Bettencourt WPtel: [address] [place], [place] [phone] Annual Well Visit 08/04/2014 Patient Education: Patient Medication Summary Completed 08/04/2014 Visit Plan: Stop Omeprazole 20 mg a nd start Zegerid 40mg PO daily x 14 days then resume previous dose of Omeprazole. May take Zofran 8 mg SL as needed every 8 hours for nausea Rupert diet 02/18/2014 Appointment: Kelsie Grubbs WPtel: [address] [place] [address] ACUTE ILLNESS 02/18/2014 Patient Education: Patient Medication Summary Completed 02/18/2014 Patient Education: [facility] - Saving AutoInj - 18+ - Dynamic Portal ID Completed 02/18/2014 Appointment: Xiomara Bettencourt WPtel: [address] [place], [place] [phone] 09/08/2013 Visit Plan: Check fasting lab in 1m o Continue Lantus and accuchecks at least BID 07/29/2013 Appointment: Xiomara Bettencourt WPtel: [address] [place], [place] [phone] FOLLOW UP 07/29/2013 Patient Education: Patient Medication Summary Completed 07/29/2013 Appointment: Xiomara Bettencourt WPtel: [address] [place], [place] [phone] [place] INJECTION 07/22/2013 Patient Education: Patient Medication Summary Completed 07/22/2013 Visit Plan: Pt has been self-adjust ing meds Stop metformin and amaryl Use Levemir 25u sc BID and call in 1wk with BS readings 05/26/2013 Appointment: Xiomara Bettencourt WPtel: [address] [place], [place] [phone] [place] FOLLOW UP 05/26/2013 Patient Education: Patient Medication Summary Completed 05/26/2013 Visit Plan: DC Metformin Increase L antus to 30u sc daily Change lisinopril to lisinopril HCT 20/25mg q AM Continue Gabapentin at current dose 04/28/2013 Appointment: Xiomara Bettencourt WPtel: [phone] [facility] FO[facility] 04/28/2013 Patient Education: Patient Medication Summary Completed 04/28/2013 Appointment: Xiomara Bettencourt WPtel: [phone] [facility] [place] LAB 03/12/2013 Patient Education: Patient Medication Summary Completed 03/12/2013 Visit Plan: Trial of neurontin 400m g q HS Obtain most recent lab results Change levemir to lantus per pt request Pt goes for sleep study tonite 03/11/2013 Appointment: Xiomara Bettencourt WPtel: [phone] [facility] 02/01paperwork mailed 03/10 confirmed with spouse NEW PATIENT 03/11/2013 Patient Education: Patient Medication Summary Completed 03/11/2013 Instructions Comment . I have went throug h his medications in past and stopped meds but he adjusts his meds on his own and has restarted some Stop Amaryl Once again discussed not using indomethacin routinely due to taking plavix and aspirin daily and correction use is dangerous Check CBC, CMP, TSH, free T4, B12 and HbA1C Patient has seen Cardiology recently but no cardiac cath done--had chemical stress test . I have went throug h his medications in past and stopped meds but he adjusts his meds on his own and has restarted some Stop Amaryl Once again discussed not using indomethacin routinely due to taking plavix and aspirin daily and correction use is dangerous Check CBC, CMP, TSH, free T4, B12 and HbA1C Patient has seen Cardiology recently but no cardiac cath done--had chemical stress test . 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 CXR now to further evaluate symptoms [...] albuterol PRN Will call with CXR results . 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 DC Metformin Increase Lantus to 30u sc daily Change lisinopril to lisinopril HCT 20/25mg q AM Continue Gabapentin at current dose . Saline nasal flush es prn. Tylenol/Motrin prn headache. Notify if persists/symptoms worsening. . Trial of neurontin 400mg q HS Obtain most recent lab results Change levemir to lantus per pt request Pt goes for sleep study tonite . See Dr. Garvin for removal Has previously compl eted 10 days of Keflex and 5 days of Azithromycin . Albuterol INH via SVN every 4 hours Prednisone 20 mg PO BID Notify for worsening symptoms Has previously compl eted 10 days of Keflex and 5 days of Azithromycin . Albuterol INH via SVN every 4 hours Prednisone 20 mg PO BID Notify for worsening symptoms . Check CBC, CMP, TS H, free T4, HbA1C, Lipids Accuchecks daily alternating times Patient has been adjusting own meds and has not taken any cholesterol meds for sometime Will check into surgery on right knee at [facility] Check carotid dopplers . Pt has been self-a djusting meds Stop metformin and amaryl Use Levemir 25u sc BID and call in 1wk with BS readings . Retry gabapentin a t 300mg q HS Discussed needs testing for PAD--will start with ABIs Discussed spinal stenosis and lumbar deg disc disease as contributing to lower extremity weakness Patient has been running out of insulin due to cost so restarted glimepiride--once again discussed risk of using this medicine with insulin . Return in am for f asting labs - CBC, CMP, TSH, Free T4, HgbA1C Change Levemir to Toujeo - Continue 35 Units q am - sample given Start physical Therapy for increased quadriceps strengthening and decreased pain in knees, bilaterally. . Return in am for f asting labs - CBC, CMP, TSH, Free T4, HgbA1C Change Levemir to Toujeo - Continue 35 Units q am - sample given Start physical Therapy for increased quadriceps strengthening and decreased pain in knees, bilaterally. . Stop Omeprazole 20 mg and start Zegerid 40mg PO daily x 14 days then resume previous dose of Omeprazole. May take Zofran 8 mg SL as needed every 8 hours for nausea Rupert diet . Check fasting lab in 1mo Continue Lantus and accuchecks at least BID
--- OUTSIDE RECORDS SUMMARY | 2020-02-02 21:49 | XMS REPORT | CCD ---
Author Author Sheng Bettencourt D.O. Organization [facility] Address [address] [place] [address] Phone Care Team Providers Care Therapist Name Role Phone PP Unavailable CCM Unavailable Summary Purpose Interface Exchange Insurance Providers Payer name Policy type / Coverage type Covered alliance party ID Effective Begin Date Effective End Date WPS MEDICARE PART B [place] Medicare Part B [id number] 2018 Unknown [facility] Medicare Part B [id number] Unknown Family history Mother Diagnosis Age At Onset Diabetes mellitus Type 2 Unknown Hypercholesterolemia Unknown Father Diagnosis Age At Onset No Family Disease Entered N/A Social History Social History Element Codes Description Effective Dates Marital status Unknown M arried 03/11/2013 Number of children Unknown 4 03/11/2013 Employment Unknown Retir ed 03/11/[address]: 3561015 Former smoker 03/11/[address]: 909484 Currently drinks alcohol Socially 03/11/2013 Has the [...] Date Stop Date Sta tus Fill Instructions Augmentin 500 mg-125 mg tablet RxNorm: 600190 1 Tablet(s) PO BID 02/22/2019 03/03/2019 Active baclofen 10 mg tablet RxNorm: 435695 TAKE ONE TABLET BY MOUTH EVERY NIGHT AT BEDTIME FOR PAIN OR SPASMS 01/14/2019 03/14/2019 Active Flomax 0.4 mg capsule RxNorm: 379392 TAKE TWO CAPSULES BY MOUTH EVERY EVENING 01/12/2019 07/10/2019 Ac tive gabapentin 400 mg ca psule RxNorm: 990458 1 Capsule(s) PO QPM 12/30/2018 06/27/2019 Active baclofen 10 mg tablet RxNorm: 880440 1 Tablet(s) PO QHS for pain/spasm 12/15/2018 01/13/2019 In active simvastatin 20 mg ta blet RxNorm: 537206 TAKE ONE TABLET BY MO UTH DAILY 12/11/2018 06/08/2019 Ac tive OneTouch Ultra Blue Test Strip RxNorm: Use 1 test strip three time s daily to check blood sugar (Dx:E11.65) 12/07/2018 No Stop Date Active gabapentin 400 mg ca psule RxNorm: 771125 TAKE ONE CAPSULE BY M OUTH EVERY EVENING 12/04/2018 12/29/2018 In active baclofen 10 mg tablet RxNorm: 851290 1 Tablet(s) PO QHS for pain/spasm 11/19/2018 12/15/2018 In active Flomax 0.4 mg capsule RxNorm: 538151 2 Capsule(s) PO QPM 09/15/2018 12/13/2018 Inactive WOULD LIKE 90DS!!! gabapentin 400 mg ca psule RxNorm: 539890 TAKE ONE CAPSULE BY M OUTH EVERY EVENING 07/21/2018 10/18/2018 In active simvastatin 20 mg ta blet RxNorm: 424314 1 Tablet(s) PO QD 06/15/2018 12/10/2018 Inactive Flomax 0.4 mg capsule RxNorm: 713059 TAKE TWO CAPSULES BY MOUTH EVERY EVENING 06/02/2018 09/15/2018 In active WOULD LIKE 90DS!!! Flomax 0.4 mg capsule RxNorm: 115559 2 Capsule(s) PO QPM 04/21/2018 05/20/2018 Inactive simvastatin 20 mg ta blet RxNorm: 050953 1 Tablet(s) PO QD Anil e 1 tablet by mouth daily. Patient due for labwork before further refill. 04/06/2018 04/12/2018 Inactive simvastatin 20 mg ta blet RxNorm: 623140 Tablet(s) TAKE ONE TA BLET BY MOUTH DAILY 03/25/2018 06/15/2018 In active simvastatin 20 mg ta blet RxNorm: 732970 Tablet(s) TAKE ONE TA BLET BY MOUTH DAILY due for appt 12/29/2017 03/25/2018 Inactive simvastatin 20 mg ta blet RxNorm: 547071 TAKE ONE TABLET BY MO UTH DAILY 09/03/2017 12/29/2017 In active simvastatin 20 mg ta blet RxNorm: 963567 1 Tablet(s) PO QD 10/22/2016 11/18/2018 Inactive isosorbide mononitra te ER 60 mg tablet,extended release 24 hr RxNorm: 446069 1 Tablet(s) PO QD 10/22/2016 04/21/2017 Inactive isosorbide mononitra te ER 60 mg tablet,extended release 24 hr RxNorm: 668936 1 Tablet(s) PO QD 10/10/2016 10/21/2016 Inactive simvastatin 20 mg ta blet RxNorm: 672770 1 Tablet(s) PO QD 10/10/2016 10/21/2016 Inactive gabapentin 400 mg ca psule RxNorm: 254422 1 Capsule(s) PO QPM 07/23/2016 09/20/2016 Inactive Tomariel SoloStar 300 unit/mL (1.5 mL) subcutaneous insulin pen RxNorm: 7446360 35 Unit(s) SQ QAM 07/23/2016 07/22/2016 Inactive Tamia SoloStar 300 unit/mL (1.5 mL) subcutaneous insulin pen RxNorm: 6450099 40 Unit(s) SQ QAM 09/01/2015 No Stop Date Active Symbicort 160 mcg-4. 5 mcg/actuation HFA aerosol inhaler RxNorm: 8955115 2 Puff(s) INH BID 08/31/2015 09/09/2015 Inactive prednisone 20 mg tablet RxNorm: 425703 1 Tablet(s) PO BID 08/29/2015 09/02/2015 Inactive albuterol sulfate 2. 5 mg/3 mL (0.083 %) solution for nebulization RxNorm: 072253 1 Unit(s) INH Q4H as needed 08/29/2015 10/09/2016 Inactive levothyroxine 75 mcg tablet RxNorm: 550034 1 Tablet(s) PO QD 07/28/2015 07/27/2015 Inactive levothyroxine 75 mcg tablet RxNorm: 778230 1 Tablet(s) PO QD 07/28/2015 11/18/2018 Inactive levothyroxine 75 mcg tablet RxNorm: 481247 1 Tablet(s) PO QD 07/28/2015 07/27/2015 Inactive lisinopril 20 mg-hyd rochlorothiazide 25 mg tablet RxNorm: 505511 TAKE ONE TABLET BY MOUTH EVERY MORNING. REPLACES PLAIN LISINOPRIL 03/06/2015 04/21/2017 Inactive lisinopril 20 mg-hyd rochlorothiazide 25 mg tablet RxNorm: 211885 TAKE ONE TABLET BY MOUTH EVERY MORNING. REPLACES PLAIN LISINOPRIL 09/08/2014 03/05/2015 Inactive allopurinol 100 mg t ablet RxNorm: 245492 1 Tablet(s) PO BID 08/11/2014 10/09/2016 Inactive [SAVINGS FOR NON-COVERED DRUGS -- BIN:00 1488, PCN: [id number], Group: [id number], ID# [id number], Questions: . THIS IS NOT INSURANCE.] levothyroxine 50 mcg tablet RxNorm: 912637 1 Tablet(s) PO QD 08/11/2014 07/26/2015 Inactive [AttnRPh: Saving apply/adjudicate RxGRP: [id number] RxBIN:[id number] RxPCN:HT ID#:[id number]] Zegerid 40 mg-1.1 gr am capsule RxNorm: 149636 1 Capsule(s) PO QD 02/18/2014 03/03/2014 Inactive [AttnRPh: Saving apply/adjudicate RxGRP: [id number] RxBIN:[id number] RxPCN:HT ID#:[id number]] ondansetron 8 mg dis integrating tablet RxNorm: 708289 1 Tablet(s) PO Q8H as needed for nausea 02/18/2014 08/03/2014 Inactive lisinopril 20 mg-hyd rochlorothiazide 25 mg tablet RxNorm: 175623 1 Tablet(s) PO QAM replaces plain lisinopril 08/23/2013 02/18/2014 Inactive lisinopril 20 mg-hyd rochlorothiazide 25 mg tablet RxNorm: 912103 1 Tablet(s) PO QAM replaces plain lisinopril 08/05/2013 08/22/2013 Inactive lisinopril 20 mg-hyd rochlorothiazide 25 mg tablet RxNorm: 827050 1 Tablet(s) PO QAM replaces plain lisinopril 07/29/2013 08/04/2013 Inactive lisinopril 20 mg-hyd rochlorothiazide 25 mg tablet RxNorm: 288766 1 Tablet(s) PO QAM replaces plain lisinopril 07/26/2013 07/28/2013 Inactive gabapentin 400 mg ca psule RxNorm: 797051 1 Capsule(s) PO QPM 07/01/2013 07/28/2013 Inactive gabapentin 400 mg ca psule RxNorm: 235041 1 Capsule(s) PO QPM 04/28/2013 06/26/2013 Inactive lisinopril 20 mg-hyd rochlorothiazide 25 mg tablet RxNorm: 859566 1 Tablet(s) PO QAM replaces plain lisinopril 04/28/2013 07/29/2013 Inactive gabapentin 400 mg ca psule RxNorm: 366747 1 Capsule(s) PO QPM 03/15/2013 04/27/2013 Inactive gabapentin 400 mg ca psule RxNorm: 497719 1 Capsule(s) PO QPM 03/11/2013 03/10/2013 Inactive gabapentin 400 mg ca psule RxNorm: 144347 1 Capsule(s) PO QPM 03/11/2013 03/14/2013 Inactive Lantus Solostar 100 unit/mL (3 mL) Sub-Q Insulin Pen RxNorm: 825010 20 Unit(s) SQ QPM 03/11/2013 03/15/2013 Inactive Toujeo SoloStar 300 unit/mL (1.5 mL) subcutaneous insulin pen RxNorm: 4803926 35 Unit(s) SQ QAM No Start Date Active omeprazole 20 mg cap roman,delayed release RxNorm: 503341 1 Capsule(s) PO QD No Start Date Active isosorbide mononitra te ER 60 mg tablet,extended release 24 hr RxNorm: 868908 1 Tablet(s) PO QD No Start Date Active lisinopril 20 mg tablet RxNorm: 455583 1 Tablet(s) PO QD No Start Date Active Chlortab-4 oral RxNorm: 540389 oral No Start Date Active Eliquis 5 mg tablet RxNorm: 1596646 1 Tablet(s) PO BID No Start Date Active oxymetazoline-mentho l 0.05 % nasal spray RxNorm: 8578650 [place] NASAL No Start Date Active Patient states he takes every 10 hours metformin 500 mg tablet RxNorm: 538626 1 Tablet(s) PO BID No Start Date Active levothyroxine 50 mcg tablet RxNorm: 759806 1 Tablet(s) PO QD No Start Date Active Plavix 75 mg tablet RxNorm: 240760 1 Tablet(s) PO QD No Start Date Active Norvasc 10 mg tablet RxNorm: 136338 1 Tablet(s) PO QHS No Start Date Active Zantac 150 mg tablet RxNorm: 063892 1 Tablet(s) PO QHS No Start Date Active Toujeo SoloStar 300 unit/mL (1.5 mL) subcutaneous insulin pen RxNorm: 3956540 30 Unit(s) SQ QAM No Start Date Active glimepiride 4 mg tablet RxNorm: 382351 1 Tablet(s) PO QHS No Start Date 07/26/2015 Inactive allopurinol 100 mg t ablet RxNorm: 164261 1 Tablet(s) PO BID No Start Date 08/10/2014 Inactive Lantus Solostar 100 unit/mL (3 mL) subcutaneous insulin pen RxNorm: 778581 30 Unit(s) SQ QD No Start Date 08/03/2014 Inactive Levemir FlexTouch 10 0 unit/mL (3 mL) subcutaneous insulin pen RxNorm: 296145 25 Unit(s) SQ QAM No Start Date 07/23/2015 Inactive Lantus 100 unit/mL S ub-Q RxNorm: 732245 30 Unit(s) SQ QHS No Start Date 05/25/2013 Inactive Lantus Solostar 100 unit/mL (3 mL) Sub-Q Insulin Pen RxNorm: 938686 20 Unit(s) SQ QPM No Start Date 03/10/2013 Inactive OneTouch Ultra Blue Test Strip RxNorm: Use 1 test strip three time s daily to check blood sugar (Dx:E11.65) No Start Date 12/06/2018 Inactive Levemir FlexTouch 10 0 unit/mL (3 mL) subcutaneous insulin pen RxNorm: 070840 30-35 Unit(s) SQ QAM No Start Date 07/23/2015 Inactive Levemir Flexpen 100 unit/mL (3 mL) solution subcutaneous insulin pen RxNorm: 248498 20-25 Unit(s) SQ QD No Start Date 07/28/2013 Inactive indomethacin ER 75 m g capsule,extended release RxNorm: 877047 1 Capsule(s) PO QAM No Start Date 04/27/2013 Inactive indomethacin ER 75 m g capsule,extended release RxNorm: 111564 1 Capsule(s) PO QD No Start Date 01/16/2015 Inactive Vitamin D3 5,000 uni t tablet RxNorm: 136238 1 Tablet(s) PO QD No Start Date 08/03/2014 Inactive Levemir Flexpen 100 unit/mL (3 mL) solution subcutaneous insulin Pen RxNorm: 113618 20 Unit(s) SQ QHS No Start Date 03/10/2013 Inactive Vytorin 10 mg-40 mg tablet RxNorm: 1171738 1/2 Tablet(s) PO QD No Start Date 04/20/2018 Inactive Toujeo SoloStar 300 unit/mL (1.5 mL) subcutaneous insulin pen RxNorm: 0709252 35 Unit(s) SQ QAM No Start Date 07/22/2016 Inactive Lantus Solostar 100 unit/mL (3 mL) subcutaneous insulin pen RxNorm: 113216 20 Unit(s) SQ QD No Start Date 08/03/2014 Inactive aspirin 81 mg tablet RxNorm: 247586 1 Tablet(s) PO QD No Start Date 08/03/2014 Inactive metformin 500 mg tablet RxNorm: 071433 1 Tablet(s) PO BID No Start Date 07/28/2013 Inactive glimepiride 4 mg tablet RxNorm: 704482 1 Tablet(s) PO BID No Start Date 01/16/2015 Inactive glimepiride 4 mg tablet RxNorm: 028175 1 Tablet(s) PO QD No Start Date 08/03/2014 Inactive levothyroxine 25 mcg tablet RxNorm: 481158 1 Tablet(s) PO QD No Start Date 08/10/2014 Inactive aspirin 81 mg tablet RxNorm: 306821 1 Tablet(s) PO QD No Start Date 07/21/2018 Inactive isosorbide mononitra te ER 60 mg tablet,extended release 24 hr RxNorm: 868295 1 Tablet(s) PO BID No Start Date 01/16/2015 Inactive metformin 500 mg tablet RxNorm: 547919 1 Tablet(s) PO BID No Start Date 04/27/2013 Inactive glimepiride 4 mg tablet RxNorm: 699650 1 Tablet(s) PO QPM No Start Date 02/21/2019 Inactive Vytorin 10-40 10 mg- 40 mg tablet RxNorm: 3132853 1 Tablet(s) PO QHS No Start Date 08/03/2014 Inactive indomethacin 50 mg c apsule RxNorm: 567649 1 Capsule(s) PO QHS No Start Date 01/16/2015 Inactive glimepiride 4 mg tablet RxNorm: 649439 1 Tablet(s) PO BID No Start Date 07/28/2013 Inactive Levemir FlexTouch 10 0 unit/mL (3 mL) subcutaneous insulin pen RxNorm: 508567 20 Unit(s) SQ QD No Start Date 04/30/2015 Inactive lisinopril 20 mg tablet RxNorm: 271240 1 Tablet(s) PO BID No Start Date 04/27/2013 Inactive Lantus Solostar SubQ RxNorm: Subcutaneous No Start Date 03/15/2013 Inactive allopurinol 300 mg t ablet RxNorm: 726753 1 Tablet(s) PO QD No Start Date 08/03/2014 Inactive Fish Oil 1,000 mg ca psule RxNorm: 1 Capsule(s) PO QD No Start Date 02/21/2019 Inactive indomethacin 50 mg c apsule RxNorm: 887709 1 Capsule(s) PO BID No Start Date 04/20/2018 Inactive levothyroxine 50 mcg tablet RxNorm: 297197 1 Tablet(s) PO QD No Start Date 08/10/2014 Inactive glimepiride 4 mg tablet RxNorm: 429317 1 Tablet(s) PO BID No Start Date 03/15/2013 Inactive indomethacin 50 mg c apsule RxNorm: 860515 1 Capsule(s) PO QHS No Start Date [...] Item Item Code Result Date [facility] 67682 Choles terol 209 mg/dL 09/17/2016 [facility] 15786 Trigly ceride 111 mg/dL 09/17/2016 [facility] 83865 HDL CH OLESTEROL 50 mg/dL 09/17/2016 [facility] 44455 Chol/H DL Ratio 4.18 ratio 09/17/2016 [facility] 35847 NON-HD L Chol 159 mg/dL 09/17/2016 [facility] GROUP 11055 LDL Ch olesterol 137 mg/dL 09/17/2016 MEAN GLUC 1450909 Calc M ina Gluc 151 mg/dL 09/17/2016 COMPREHENSIVE METABOLIC 72160 AST 23 U/L 09/17/2016 COMPREHENSIVE METABOLIC 59882 ALT 19 U/L 09/17/2016 COMPREHENSIVE METABOLIC 62119 BUN 15 mg/dL 09/17/2016 COMPREHENSIVE METABOLIC 25355 ALBUMIN 4.3 g/dL 09/17/2016 COMPREHENSIVE METABOLIC 12329 CHLORIDE 103 mmol/L 09/17/2016 COMPREHENSIVE METABOLIC 69250 Bili Total 0.6 mg/dL 09/17/2016 COMPREHENSIVE METABOLIC 06345 ALK PHOS 60 U/L 09/17/2016 COMPREHENSIVE METABOLIC 96351 SODIUM 140 mmol/L 09/17/2016 COMPREHENSIVE METABOLIC 01444 CREATININE 1.03 mg/dL 09/17/2016 COMPREHENSIVE METABOLIC 61335 CALCIUM 9.5 mg/dL 09/17/2016 COMPREHENSIVE METABOLIC 26754 POTASSIUM 3.9 mmol/L 09/17/2016 COMPREHENSIVE METABOLIC 67021 Total Protein 6.9 g/dL 09/17/2016 COMPREHENSIVE METABOLIC 98745 Glucose 94 mg/dL 09/17/2016 COMPREHENSIVE METABOLIC 83070 Bicarbonate 28 mmol/L 09/17/2016 COMPREHENSIVE METABOLIC 70521 AGAP 9 mmol/L 09/17/2016 GFR CALC 4510664 GFR Non Afr Amr >60 mL/min 09/17/2016 GFR CALC 2212958 GFR Afr Amr >60 mL/min 09/17/2016 THYROID STIMULATING HORMONE 80588 TSH 4.260 uIU/mL 09/17/201 7 GLYCOSYLATED HEMOGLOBIN TEST 92932 Hgb A1c 49037-8 6.9 % 09/17/2016 FREE T4 56393 T4 Free 1.02 ng/dL 09/17/2016 COMPLETE BLOOD COUNT 8118373 WBC 8.6 10e9/L 07/26/2015 COMPLETE BLOOD COUNT 4267851 RBC 4.86 10e12/L 6 COMPLETE BLOOD COUNT 9223163 HGB 14.6 g/dL 07/26/2015 COMPLETE BLOOD COUNT 1877279 HCT DET 43.1 % 07/26/2015 COMPLETE BLOOD COUNT 9959523 MCV 88.7 fL 07/26/2015 COMPLETE BLOOD COUNT 9780404 MCH 30.0 pg 07/26/2015 COMPLETE BLOOD COUNT 6800765 MCHC 33.9 g/dL 07/26/2015 COMPLETE BLOOD COUNT 6288150 PLT 267 10e9/L 07/26/2015 COMPLETE BLOOD COUNT 9429237 MPV 11.5 fL 07/26/2015 COMPLETE BLOOD COUNT 8087753 SAM % 64.8 % 07/26/2015 COMPLETE BLOOD COUNT 8768832 LY % 16.8 % 07/26/2015 COMPLETE BLOOD COUNT 9929631 MON % 12.5 % 07/26/2015 COMPLETE BLOOD COUNT 3534766 EOS % 5.6 % 07/26/2015 COMPLETE BLOOD COUNT 5935164 BASO % 0.3 % 07/26/2015 COMPLETE BLOOD COUNT 0468127 RDW 13.4 % 07/26/2015 COMPLETE BLOOD COUNT 4843972 ABS SAM 5.57 10e9/L 07/26/2015 COMPLETE BLOOD COUNT 5823251 ABS LYMPH 1.44 10e9/L 07/26/2015 COMPLETE BLOOD COUNT 1737596 ABS MONO 1.08 10e9/L 07/26/2015 COMPLETE BLOOD COUNT 5439477 ABS EOS 0.48 10e9/L 07/26/2015 COMPLETE BLOOD COUNT 7708245 ABS BASO 0.03 10e9/L 07/26/2015 COMPLETE BLOOD COUNT 7607339 RDW-SD 42.9 fL 07/26/2015 PSA EQUIMOLAR MATT 81546 PSA EQ 0.78 NG/ML 07/26/2015 THYROID STIMULATING HORMONE 10776 TSH 5.292 uIU/ML 6 GLYCOSYLATED HEMOGLOBIN TEST 33530 A1C HPLC 61175-6 7.0 % 07/26/2015 GFR CALC 0189416 GFR AA >60 ML/MIN 07/26/2015 GFR CALC 1311361 GFR NON -AA >60 ML/MIN 07/26/2015 LIPID GROUP [address] 64 MG/DL 07/26/2015 LIPID GROUP 68659 TRIG 58 MG/DL 07/26/2015 LIPID GROUP 53010 TEST L DL 49 MG/DL 07/26/2015 LIPID GROUP 84187 CHOL 125 MG/DL 07/26/2015 LIPID GROUP 41618 RCHOL/ HDL 1.95 RATIO 07/26/2015 LIPID GROUP 51469 NON-HD L CH 61 MG/DL 07/26/2015 COMPREHENSIVE METABOLIC 65123 AST 25 U/L 07/26/2015 COMPREHENSIVE METABOLIC 30828 ALT 23 IU/L 07/26/2015 COMPREHENSIVE METABOLIC 69619 BUN 18 MG/DL 07/26/2015 COMPREHENSIVE METABOLIC 97524 ALBUMIN 4.6 GM/DL 07/26/2015 COMPREHENSIVE METABOLIC 24911 CHLORIDE 100 MMOL/L 07/26/2015 COMPREHENSIVE METABOLIC 55711 BILI TOT 0.5 MG/DL 07/26/2015 COMPREHENSIVE METABOLIC 12948 ALK PHOS 49 U/L 07/26/2015 COMPREHENSIVE METABOLIC 26268 SODIUM 137 MMOL/L 07/26/2015 COMPREHENSIVE METABOLIC 38482 CREATININE 1.06 MG/DL 07/26/2015 COMPREHENSIVE METABOLIC 00324 CALCIUM 9.5 MG/DL 07/26/2015 COMPREHENSIVE METABOLIC 47020 POTASSIUM 4.5 MMOL/L 07/26/2015 COMPREHENSIVE METABOLIC 13855 PROT TOT 6.5 GM/DL 07/26/2015 COMPREHENSIVE METABOLIC 17609 Glucose 109 MG/DL 07/26/2015 COMPREHENSIVE METABOLIC 52391 BICARB 29 MMOL/L 07/26/2015 COMPREHENSIVE METABOLIC 92656 ANION GAP 8 MEQ/L 07/26/2015 FREE T4 96762 FREE T4 1.11 NG/DL 07/26/2015 CULTURE & SENSITIVITY 43504 PROTEIN UR NEG 01/24/2015 CULTURE & SENSITIVITY 67479 HEMGLBN UR TR 01/24/2015 CULTURE & SENSITIVITY 36649 GLUCOSE UR NEG 01/24/2015 CULTURE & SENSITIVITY 28578 KETONES UR NEG 01/24/2015 CULTURE & SENSITIVITY 40795 PH U 6.5 01/24/2015 CULTURE & SENSITIVITY 24196 SP GR U 1.013 01/24/2015 CULTURE & SENSITIVITY 10855 BILRUBN UR NEG 01/24/2015 CULTURE & SENSITIVITY 80558 LEUKO UR NEG 01/24/2015 CULTURE & SENSITIVITY 02010 NITRITE UR NEG 01/24/2015 MICR CUL? 0510003 SP TO JOHANA? NO 01/24/2015 MICR CUL? 3568663 APPEAR UR NORMAL 01/24/2015 MICR CUL? 1991963 RBC/uL 2.2 01/24/2015 MICR CUL? 7133925 WBC/uL 2.8 01/24/2015 MICR CUL? 1383380 SQ EPI /uL 1.0 01/24/2015 MICR CUL? 1475512 HYALCS T/uL 0.25 01/24/2015 MICR CUL? 0342790 WBC /H PF 1 01/24/2015 MICR CUL? 6178472 RBC /H PF 0 01/24/2015 GLYCOSYLATED HEMOGLOBIN TEST 66397 A1C HPLC 98242-6 6.6 % 01/17/2015 COMPLETE BLOOD COUNT 4186650 WBC 10.1 10e9/L 01/17/2015 COMPLETE BLOOD COUNT 5054162 RBC 4.60 10e12/L 5 COMPLETE BLOOD COUNT 2404116 HGB 14.0 g/dL 01/17/2015 COMPLETE BLOOD COUNT 8352142 HCT DET 39.9 % 01/17/2015 COMPLETE BLOOD COUNT 8946162 MCV 86.7 fL 01/17/2015 COMPLETE BLOOD COUNT 1147002 MCH 30.4 pg 01/17/2015 COMPLETE BLOOD COUNT 8546863 MCHC 35.1 g/dL 01/17/2015 COMPLETE BLOOD COUNT 5003119 PLT 252 10e9/L 01/17/2015 COMPLETE BLOOD COUNT 3293857 MPV 11.4 fL 01/17/2015 COMPLETE BLOOD COUNT 0781248 SAM % 72.9 % 01/17/2015 COMPLETE BLOOD COUNT 5652347 LY % 13.6 % 01/17/2015 COMPLETE BLOOD COUNT 3082073 MON % 10.2 % 01/17/2015 COMPLETE BLOOD COUNT 6696617 EOS % 3.1 % 01/17/2015 COMPLETE BLOOD COUNT 7473714 BASO % 0.2 % 01/17/2015 COMPLETE BLOOD COUNT 1448112 RDW 13.6 % 01/17/2015 COMPLETE BLOOD COUNT 2873004 ABS SAM 7.36 10e9/L 01/17/2015 COMPLETE BLOOD COUNT 8473516 ABS LYMPH 1.37 10e9/L 01/17/2015 COMPLETE BLOOD COUNT 4162308 ABS MONO 1.03 10e9/L 01/17/2015 COMPLETE BLOOD COUNT 3910856 ABS EOS 0.31 10e9/L 01/17/2015 COMPLETE BLOOD COUNT 3894819 ABS BASO 0.02 10e9/L 01/17/2015 COMPLETE BLOOD COUNT 8293708 RDW-SD 42.4 fL 01/17/2015 GFR CALC 8338687 GFR AA 51.0L ML/MIN 01/17/2015 GFR CALC 6770539 GFR NON -AA 42.0L ML/MIN 5 FREE T4 33524 FREE T4 1.30 NG/DL 01/17/2015 THYROID STIMULATING HORMONE 14857 TSH 4.029 uIU/ML 5 COMPREHENSIVE METABOLIC 76510 AST 28 U/L 01/17/2015 COMPREHENSIVE METABOLIC 97323 ALT 25 IU/L 01/17/2015 COMPREHENSIVE METABOLIC 64834 BUN 21 MG/DL 01/17/2015 COMPREHENSIVE METABOLIC 52252 ALBUMIN 4.7 GM/DL 01/17/2015 COMPREHENSIVE METABOLIC 86707 CHLORIDE 102 MMOL/L 01/17/2015 COMPREHENSIVE METABOLIC 84635 BILI TOT 0.6 MG/DL 01/17/2015 COMPREHENSIVE METABOLIC 13417 ALK PHOS 44 U/L 01/17/2015 COMPREHENSIVE METABOLIC 25054 SODIUM 137 MMOL/L 01/17/2015 COMPREHENSIVE METABOLIC 22014 CREATININE 1.62 MG/DL 01/17/2015 COMPREHENSIVE METABOLIC 68627 CALCIUM 9.7 MG/DL 01/17/2015 COMPREHENSIVE METABOLIC 99775 POTASSIUM 4.5 MMOL/L 01/17/2015 COMPREHENSIVE METABOLIC 37883 PROT TOT 6.5 GM/DL 01/17/2015 COMPREHENSIVE METABOLIC 84737 Glucose 136 MG/DL 01/17/2015 COMPREHENSIVE METABOLIC 18505 BICARB 24 MMOL/L 01/17/2015 COMPREHENSIVE METABOLIC 89480 ANION GAP 11 MEQ/L 01/17/2015 VITAMIN B 12 15231 VIT B 12 482 PG/ML 01/17/2015 URIC ACID 92869 URIC ACID 8.5 MG/DL 08/09/2014 COMPREHENSIVE METABOLIC 52850 AST 27 U/L 08/09/2014 COMPREHENSIVE METABOLIC 92301 ALT 26 IU/L 08/09/2014 COMPREHENSIVE METABOLIC 12615 BUN 17 MG/DL 08/09/2014 COMPREHENSIVE METABOLIC 82422 ALBUMIN 5.0 GM/DL 08/09/2014 COMPREHENSIVE METABOLIC 85523 CHLORIDE 101 MMOL/L 08/09/2014 COMPREHENSIVE METABOLIC 89404 BILI TOT 0.7 MG/DL 08/09/2014 COMPREHENSIVE METABOLIC 45145 ALK PHOS 53 U/L 08/09/2014 COMPREHENSIVE METABOLIC 07205 SODIUM 136 MMOL/L 08/09/2014 COMPREHENSIVE METABOLIC 92738 CREATININE 1.14 MG/DL 08/09/2014 COMPREHENSIVE METABOLIC 66755 CALCIUM 9.8 MG/DL 08/09/2014 COMPREHENSIVE METABOLIC 28651 POTASSIUM 4.1 MMOL/L 08/09/2014 COMPREHENSIVE METABOLIC 37430 PROT TOT 7.5 GM/DL 08/09/2014 COMPREHENSIVE METABOLIC 39100 Glucose 110 MG/DL 08/09/2014 COMPREHENSIVE METABOLIC 48039 BICARB 30 MMOL/L 08/09/2014 COMPREHENSIVE METABOLIC 97912 ANION GAP 5 MEQ/L 08/09/2014 GFR CALC 0065245 GFR AA >60 ML/MIN 08/09/2014 GFR CALC 1567164 GFR NON -AA >60 ML/MIN 08/09/2014 FREE T4 91334 FREE T4 1.14 NG/DL 08/09/2014 GLYCOSYLATED HEMOGLOBIN TEST 50371 A1C [facility] 17479-6 6.8 % 08/09/2014 COMPLETE BLOOD COUNT 2205064 WBC 5.9 10e9/L 08/09/2014 COMPLETE BLOOD COUNT 1904406 RBC 5.04 10e12/L 5 COMPLETE BLOOD COUNT 7353898 HGB 15.2 g/dL 08/09/2014 COMPLETE BLOOD COUNT 0556149 HCT DET 44.3 % 08/09/2014 COMPLETE BLOOD COUNT 2289249 MCV 87.9 fL 08/09/2014 COMPLETE BLOOD COUNT 5313271 MCH 30.2 pg 08/09/2014 COMPLETE BLOOD COUNT 8784231 MCHC 34.3 g/dL 08/09/2014 COMPLETE BLOOD COUNT 5482311 PLT 262 10e9/L 08/09/2014 COMPLETE BLOOD COUNT 1173704 MPV 10.9 fL 08/09/2014 COMPLETE BLOOD COUNT 4470135 SAM % 58.7 % 08/09/2014 COMPLETE BLOOD COUNT 8545826 LY % 21.5 % 08/09/2014 COMPLETE BLOOD COUNT 1586528 MON % 14.0 % 08/09/2014 COMPLETE BLOOD COUNT 8324170 EOS % 5.3 % 08/09/2014 COMPLETE BLOOD COUNT 1385321 BASO % 0.5 % 08/09/2014 COMPLETE BLOOD COUNT 6733502 RDW 13.1 % 08/09/2014 COMPLETE BLOOD COUNT 5672586 ABS SAM 3.46 10e9/L 08/09/2014 COMPLETE BLOOD COUNT 6999768 ABS LYMPH 1.27 10e9/L 08/09/2014 COMPLETE BLOOD COUNT [id number] ABS MONO 0.83 10e9/L 08/09/2014 COMPLETE BLOOD COUNT [id number] ABS EOS 0.31 10e9/L 08/09/2014 COMPLETE BLOOD COUNT [id number] ABS BASO 0.03 10e9/L 08/09/2014 COMPLETE BLOOD COUNT [id number] RDW-SD 41.2 fL 08/09/2014 THYROID STIMULATING HORMONE 87174 TSH 5.395 uIU/ML 5 LIPID GROUP [address] 52 MG/DL 08/09/2014 LIPID GROUP 79268 TRIG 113 MG/DL 08/09/2014 LIPID GROUP 88453 TEST L DL 158 MG/DL 08/09/2014 LIPID GROUP 76948 CHOL 233 MG/DL 08/09/2014 LIPID GROUP 72363 RCHOL/ HDL 4.48 RATIO 08/09/2014 LIPID GROUP 22643 NON-HD L CH 181 MG/DL 08/09/2014 COMPLETE BLOOD COUNT [id number] WBC 6.8 10e9/L 09/08/2013 COMPLETE BLOOD COUNT [id number] RBC 5.18 10e12/L 4 COMPLETE BLOOD COUNT 1188585 HGB 15.2 g/dL 09/08/2013 COMPLETE BLOOD COUNT 7489234 HCT DET 44.7 % 09/08/2013 COMPLETE BLOOD COUNT 8580003 MCV 86.3 fL 09/08/2013 COMPLETE BLOOD COUNT 8119275 MCH 29.3 pg 09/08/2013 COMPLETE BLOOD COUNT 5180512 MCHC 34.0 g/dL 09/08/2013 COMPLETE BLOOD COUNT 1404185 PLT 236 10e9/L 09/08/2013 COMPLETE BLOOD COUNT 8472345 MPV 11.0 fL 09/08/2013 COMPLETE BLOOD COUNT 4931656 SAM % 58.2 % 09/08/2013 COMPLETE BLOOD COUNT 2111129 LY % 21.9 % 09/08/2013 COMPLETE BLOOD COUNT 3950082 MON % 12.5 % 09/08/2013 COMPLETE BLOOD COUNT [id number] EOS % 7.3 % 09/08/2013 COMPLETE BLOOD COUNT 7599269 BASO % 0.1 % 09/08/2013 COMPLETE BLOOD COUNT 9654498 RDW 13.6 % 09/08/2013 COMPLETE BLOOD COUNT 1588191 ABS SAM 3.96 10e9/L 09/08/2013 COMPLETE BLOOD COUNT [id number] ABS LYMPH 1.49 10e9/L 09/08/2013 COMPLETE BLOOD COUNT 5199217 ABS MONO 0.85 10e9/L 09/08/2013 COMPLETE BLOOD COUNT 0866315 ABS EOS 0.50 10e9/L 09/08/2013 COMPLETE BLOOD COUNT 9269842 ABS BASO 0.01 10e9/L 09/08/2013 COMPLETE BLOOD COUNT 7025375 RDW-SD 42.3 fL 09/08/2013 COMPREHENSIVE METABOLIC 93948 AST 27 U/L 09/08/2013 COMPREHENSIVE METABOLIC 41160 ALT 30 IU/L 09/08/2013 COMPREHENSIVE METABOLIC 61995 BUN 16 MG/DL 09/08/2013 COMPREHENSIVE METABOLIC 40290 ALBUMIN 4.9 GM/DL 09/08/2013 COMPREHENSIVE METABOLIC 23146 CHLORIDE 99 MMOL/L 09/08/2013 COMPREHENSIVE METABOLIC 27035 BILI TOT 0.7 MG/DL 09/08/2013 COMPREHENSIVE METABOLIC 21582 ALK PHOS 53 U/L 09/08/2013 COMPREHENSIVE METABOLIC 31133 SODIUM 137 MMOL/L 09/08/2013 COMPREHENSIVE METABOLIC 35055 CREATININE 1.01 MG/DL 09/08/2013 COMPREHENSIVE METABOLIC 56383 CALCIUM 10.0 MG/DL 09/08/2013 COMPREHENSIVE METABOLIC 72024 POTASSIUM 4.4 MMOL/L 09/08/2013 COMPREHENSIVE METABOLIC 53461 PROT TOT 7.1 GM/DL 09/08/2013 COMPREHENSIVE METABOLIC 64749 Glucose 148 MG/DL 09/08/2013 COMPREHENSIVE METABOLIC 03206 BICARB 30 MMOL/L 09/08/2013 COMPREHENSIVE METABOLIC 68470 ANION GAP 8 MEQ/L 09/08/2013 GFR CALC [id number] GFR AA >60 ML/MIN 09/08/2013 GFR CALC 8011661 GFR NON -AA >60 ML/MIN 09/08/2013 FREE T4 45785 FREE T4 1.08 NG/DL 09/08/2013 GLYCOSYLATED HEMOGLOBIN TEST 90775 A1C HPLC 36964-6 7.3 % 09/08/2013 THYROID STIMULATING HORMONE 59746 TSH 5.454 uIU/ML 4 LIPID GROUP [address] 59 MG/DL 09/08/2013 LIPID GROUP 89064 TRIG 92 MG/DL 09/08/2013 LIPID GROUP 47978 TEST L DL 83 MG/DL 09/08/2013 LIPID GROUP 18959 CHOL 160 MG/DL 09/08/2013 LIPID GROUP 33662 RCHOL/ HDL 2.71 RATIO 09/08/2013 VITAMIN B 12 FOLIC ACID 15383|38098 VIT B 12 467 PG/ML 03/12/2013 VITAMIN B 12 FOLIC ACID 30368|31682 FOLIC ACID 12.2 NG/ML 03/12/2013 VITAMIN B 12 FOLIC ACID 05041|92726 VIT B 12 467 PG/ML 03/12/2013 THYROID STIMULATING HORMONE 42730 TSH 4.557 uIU/ML 3 HEMOGLOBIN A1C (GLYCOSYLATED) 6569383 A1C HPLC 98917-4 7.6 % 03/12/2013 VITAMIN D TOTAL (25 HYDROXY) 61702 VIT D TOTL 17 NG/ML 03/12/2013 FREE T4 16718 FREE T4 1.07 NG/DL 03/12/2013 URIC ACID 48465 URIC ACID 5.2 MG/DL 03/12/2013 Review of [...] inspection of skin Location: face 10/22/2017 left holiness, left lower jaw, left nasal bridge, right holiness, right middle cheek, right helix Full Exam [...] Procedure Codes Date THER/PROPH/DIAG INJ SC/IM CPT-4: 20841 02/22/2019 TRIAMCINOLONE ACET I [place] NOS CPT-4: J3301 02/22/2019 FLU VACC PRSV FREE I NC ANTIG 65 AND OLDER CPT-4: 92091 04/21/2018 ADMIN INFLUENZA VIRU S VAC CPT-4: G0008 04/21/2018 PRESCRIP TRANSMIT A ERX SY CPT-4: G8553 04/21/2018 DESTRUCT PREMALG LES ION (Cryosurgery) CPT-4: 49313 10/22/2017 FLU VACC PRSV FREE I NC ANTIG 65 AND OLDER CPT-4: 76618 04/22/2017 ADMIN INFLUENZA VIRU S VAC CPT-4: G0008 04/22/2017 PRESCRIP TRANSMIT A ERX SY CPT-4: G8553 10/10/2016 PRESCRIP TRANSMIT A ERX SY CPT-4: G8553 08/29/2015 ROUTINE VENIPUNCTURE CPT-4: 20252 07/26/2015 ASSAY OF FREE THYROXINE CPT-4: 97818 07/26/2015 ASSAY THYROID STIM H ORMONE CPT-4: 29807 07/26/2015 COMPREHEN METABOLIC PANEL CPT-4: 97450 07/26/2015 COMPLETE CBC W/AUTO DIFF WBC CPT-4: 16423 07/26/2015 LIPID PANEL CPT-4: 11618 07/26/2015 ASSAY OF PSA TOTAL CPT- 4: 61712 07/26/2015 A1C HPLC CPT-4: 82802 07/26/2015 ROUTINE VENIPUNCTURE CPT-4: 48420 01/17/2015 ASSAY OF FREE THYROXINE CPT-4: 54629 01/17/2015 ASSAY THYROID STIM H ORMONE CPT-4: 83387 01/17/2015 COMPREHEN METABOLIC PANEL CPT-4: 85918 01/17/2015 COMPLETE CBC W/AUTO DIFF WBC CPT-4: 00579 01/17/2015 A1C HPLC CPT-4: 71151 01/17/2015 VITAMIN B-12 CPT-4: 21288 01/17/2015 PPPS, subseq visit CPT- 4: G0439 08/04/2014 PRESCRIP TRANSMIT A ERX SY CPT-4: G8553 02/18/2014 FLUZONE, 5ML (Medicare) CPT-4: Q2038 07/22/2013 ADMIN INFLUENZA VIRU S VAC CPT-4: G0008 07/22/2013 PRESCRIP TRANSMIT A ERX SY CPT-4: G8553 04/28/2013 ROUTINE VENIPUNCTURE CPT-4: 24032 03/12/2013 VITAMIN D TOTAL (25 HYDROXY) CPT-4: 83447 03/12/2013 VITAMIN B 12 FOLIC ACID CPT-4: 32021|30226 03/12/2013 A1C GLYCOSYLATED HEM OGLOBIN TEST CPT-4: 96908 03/12/2013 ASSAY OF BLOOD/URIC ACID CPT-4: 46916 03/12/2013 ASSAY OF FREE THYROXINE CPT-4: 45552 03/12/2013 ASSAY THYROID STIM H ORMONE CPT-4: 41903 03/12/2013 CUR TOBACCO NON-USER CPT-4: G8457 03/11/2013 [...] 1: 156/70 Code: 8480-6 BMI: 35.0 Code: 74552-7 Heart Rate 1: 68 bpm Height: 5'10" Respiratory Rate: 20 bpm SpO2: 95% Temperature: 36.5 (C ) / 97.7 (F) Weight: 244 lbs 04/21/2018 Blood Pressure 1: 124/80 Code: 8480-6 BMI: 34.4 Code: 85283-0 Heart Rate 1: 80 bpm Height: 5'10" Respiratory Rate: 20 bpm SpO2: 96% Temperature: 37.0 (C ) / 98.6 (F) Weight: 240 lbs 01/06/2018 Blood Pressure 1: 138/82 Code: 8480-6 BMI: 33.9 Code: 40446-9 Heart Rate 1: 96 bpm Height: 5'10" Respiratory Rate: 24 bpm SpO2: 98% Temperature: 35.9 (C ) / 96.6 (F) Weight: 236 lbs 10/22/2017 Blood Pressure 1: 144/70 Code: 8480-6 BMI: 34.7 Code: 88058-7 Heart Rate 1: 72 bpm Height: 5'10" Respiratory Rate: 20 bpm SpO2: 96% Temperature: 36.9 (C ) / 98.4 (F) Weight: 242 lbs 04/22/2017 Blood Pressure 1: 146/82 Code: 8480-6 BMI: 32.9 Code: 80686-0 Heart Rate 1: 104 bpm Height: 5'10" Respiratory Rate: 20 bpm SpO2: 95% Temperature: 36.9 (C ) / 98.5 (F) Weight: 229 lbs 10/10/2016 Blood Pressure 1: 124/64 Code: 8480-6 BMI: 32.9 Code: 17640-1 Heart Rate 1: 64 bpm Height: 5'10" [...] 1: 146/90 Code: 8480-6 BMI: 34.1 Code: 13357-2 Heart Rate 1: 80 bpm Height: 5'10" Respiratory Rate: 20 bpm Temperature: 36.8 (C ) / 98.2 (F) Weight: 238 lbs 01/17/2015 Blood Pressure 1: 116/60 Code: 8480-6 BMI: 32.7 Code: 49491-4 Heart Rate 1: 84 bpm Height: 5'10" Respiratory Rate: 20 bpm Temperature: 36.7 (C ) / 98.0 (F) Weight: 228 lbs 09/29/2014 Blood Pressure 1: 136/78 Code: 8480-6 BMI: 33.9 Code: 68558-0 Heart Rate 1: 80 bpm Height: 5'10" Respiratory Rate: 20 bpm Temperature: 36.6 (C ) / 97.9 (F) Weight: 236 lbs 08/04/2014 Blood Pressure 1: 132/70 Code: 8480-6 BMI: 32.9 Code: 15995-7 Heart Rate 1: 72 bpm Height: 5'10" Respiratory Rate: 20 bpm Temperature: 36.7 (C ) / 98.0 (F) Weight: 229 lbs 02/18/2014 Blood Pressure 1: 124/82 Code: 8480-6 Heart Rate 1: 82 bpm Respiratory Rate: 18 bpm Temperature: 36.4 (C) / 97.5 (F) Weight: 232 lbs 07/29/2013 Blood Pressure 1: 146/80 Code: 8480-6 BMI: 34.1 Code: 35379-7 Heart Rate 1: 64 bpm Height: 5'10" Respiratory Rate: 20 bpm Temperature: 36.9 (C ) / 98.5 (F) Weight: 238 lbs 05/26/2013 Blood Pressure 1: 142/90 Code: 8480-6 BMI: 34.0 Code: 47605-1 Heart Rate 1: 84 bpm Height: 5'10" Respiratory Rate: 20 bpm Temperature: 36.7 (C ) / 98.0 (F) Weight: 237 lbs 04/28/2013 Blood Pressure 1: 118/78 Code: 8480-6 BMI: 32.9 Code: 42732-0 Heart Rate 1: 74 bpm Height: 5'10" Respiratory Rate: 20 bpm Temperature: 36.1 (C ) / 97.0 (F) Weight: 229 lbs 03/11/2013 Blood Pressure 1: 146/80 Code: 8480-6 BMI: 31.5 Code: 97750-7 Heart Rate 1: 80 bpm Height: 6' [...] both sides 11/25/2018 None Location in the thread tw[place] ior area 11/25/2018 None Onset and Resolution o ngoing 11/25/2018 Patient is taking baclofe n at bedtime. He is hesitant about chiropractor treatment and requests x-ray Quality dull 11/25/2018 None Quality chronic 11/25/2018 None Location in the [place] area 11/19/2018 None Onset and Resolution [...] mellitus Quality chronic 04/21/2018 None hypothyroid Quality no experience roscoe 04/21/2018 None hyperlipidemia Quality c hronic [...] weeks ago 08/29/2015 None hyperglycemia Quality ac igiugig 07/24/2015 None knee pain Location on th [...] Encounters Encounter Performer Loca tion Codes Date ([id number]) OFFICE/OUTPA TIENT VISIT EST Diagnosis: Acute sinusitis, unspecified[ICD10: J01.90] Pennie Pizarro XIOMARA DelphineEdvin REED [email or web address] CPT-4: 00032 02/22/2019 ([id number]) OFFICE/OUTPA TIENT VISIT EST Diagnosis: Cervicalgia[ICD10: M54.2] Xiomara Renovondakendrick RENAEXIOMARA DelphineEdvin REED [facility] CPT-4: 71491 11/25/2018 ([id number]) OFFICE/OUTPA TIENT VISIT EST Diagnosis: Acute sinusitis, unspecified[ICD10: J01.90] Diagnosis: Myalgia, unspecified site[ICD10: M79.10] Diagnosis: Cervicalgia[ICD10: M54.2] Xiomara Renonelson XIOMARA DelphineEdvin REED [email or web address] CPT-4: 14367 11/19/2018 ([id number]) OFFICE/OUTPA TIENT VISIT EST Diagnosis: Low back pain[ICD10: M54.5] Diagnosis: Essential (primary) hypertension[ICD10: I10] Diagnosis: 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, 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] Diagnosis: Paroxysmal atrial fibrillation[ICD10: I48.0] Xiomara LARA DelphineEdvin RENO MAGALLON [email or web address] CPT-4: 80175 07/22/2018 ([id number]) OFFICE/OUTPA TIENT VISIT EST Diagnosis: Type 2 diabetes mellitus with diabetic neuropathy, unspecified[ICD10: E11.40] Diagnosis: Hyperlipidemia, unspecified[ICD10: E78.5] Diagnosis: Essential (primary) hypertension[ICD10: I10] Diagnosis: Chronic kidney disease, stage 1[ICD10: N18.1] Diagnosis: Benign prostatic hyperplasia with lower urinary tract symptoms[ICD10: N40.1] Diagnosis: FLU VACCINE[ICD10: Z23] Xiomara LARA DelphineEdvin REED [email or web address] CPT-4: 49398 04/21/2018 OFFICE/OUTPATIENT SIT EST Diagnosis: Type 2 diabetes mellitus with hyperglycemia[ICD10: E11.65] Diagnosis: Essential (primary) hypertension[ICD10: I10] Diagnosis: Mixed hyperlipidemia[ICD10: E78.2] Diagnosis: Other fatigue[ICD10: R53.83] Pennie HANLINE DelphineEdvin KODAK [email or web address] CPT-4: 30770 01/06/2018 ([id number]) OFFICE/OUTPA TIENT VISIT EST Diagnosis: Type 2 diabetes mellitus with diabetic neuropathy, unspecified[ICD10: E11.40] Diagnosis: Essential (primary) hypertension[ICD10: I10] Diagnosis: Pain in right thigh[ICD10: M79.651] Diagnosis: Pain in left leg[ICD10: M79.605] Diagnosis: Localized swelling, mass and lump, left lower limb[ICD10: R22.42] Diagnosis: OSTEOARTHRISIS MULTI SITES[ICD10: M19.90] Diagnosis: FLU VACCINE[ICD10: Z23] Xiomara Renovondakendrick HANXIOMARA DelphineEdvin RENODanforth P[email or web address] CPT-4: 79031 04/22/2017 ([id number]) OFFICE/OUTPA TIENT VISIT EST Diagnosis: Essential (primary) hypertension[ICD10: I10] Diagnosis: Type 2 diabetes mellitus with hyperglycemia[ICD10: E11.65] Diagnosis: Angina pectoris, unspecified[ICD10: I20.9] Xiomara Renovondakendrick XIOMARA DelphineEdvin RENO BROWN [email or web address] CPT-4: 31044 10/10/2016 ([id number]) OFFICE/OUTPA TIENT VISIT EST Diagnosis: Cough[ICD10: R05] Diagnosis: Wheezing[ICD10: R06.2] Diagnosis: Chronic obstructive pulmonary disease, unspecified[ICD10: J44.9] Shannan Cornelio XIOMARA DelphineEdvin REED [email or web address] CPT-4: 51753 08/31/2015 OFFICE/OUTPATIENT SIT EST Diagnosis: Acute bronchitis, unspecified[ICD10: J20.9] Diagnosis: Wheezing[ICD10: R06.2] Kelsie LARA DelphineEdvin [email or web address] CPT-4: 59276 08/29/2015 ([id number]) OFFICE/OUTPA TIENT VISIT EST Diagnosis: Type 2 diabetes mellitus with diabetic neuropathy, unspecified[ICD10: E11.40] Diagnosis: Hyperlipidemia, unspecified[ICD10: E78.5] Diagnosis: Essential (primary) hypertension[ICD10: I10] Diagnosis: Encounter for general adult medical examination without abnormal findings[ICD10: Z00.00] Xiomara BETTENCOURT [facility] CPT-4: 87925 07/26/2015 OFFICE/OUTPATIENT SIT EST Diagnosis: Type 2 diabetes mellitus with hyperglycemia[ICD10: E11.65] Diagnosis: Unspecified osteoarthritis, unspecified site[ICD10: M19.90] Diagnosis: Other instability, right knee[ICD10: M25.361] Kelsie RobersonChloekarena HANLINE Elvia Fowler PAUL [facility] CPT-4: 38798 07/24/2015 ([id number]) OFFICE/OUTPA TIENT VISIT EST Diagnosis: Pain in leg, unspecified[ICD10: M79.606] Diagnosis: Type 2 diabetes mellitus with diabetic neuropathy, unspecified[ICD10: E11.40] Xiomara BETTENCOURT [facility] CPT-4: 60092 05/01/2015 ([id number]) OFFICE/OUTPA TIENT VISIT EST Diagnosis: MALAISE AND FATIGUE[ICD9: 780.79] Diagnosis: 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, 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] Diagnosis: CAD[ICD9: 414.00] Diagnosis: ANEMIA NOS[ICD9: 285.9] Xiomara MCBRIDE [facility] CPT-4: 06035 01/17/2015 ([id number]) OFFICE/OUTPA TIENT VISIT EST Diagnosis: Skin lesion[ICD9: 709.9] Xiomara BETTENCOURT [facility] CPT-4: 89987 09/29/2014 OFFICE/OUTPATIENT SIT EST Diagnosis: GASTROENTERITIS[ICD9: 558.9] Diagnosis: GERD[ICD9: 530.81] Kelsie RobersonChloekarena BETTENCOURT [facility] CPT-4: 22323 02/18/2014 ([id number]) OFFICE/OUTPA TIENT VISIT EST Diagnosis: 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I, UNCONTROLLED[ICD9: 250.02] Xiomara Renonder XIOMARA MAGALLON [facility] CPT-4: 37104 07/29/2013 ([id number]) OFFICE/OUTPA TIENT VISIT EST Diagnosis: FLU VACCINE[ICD9: V04.81] Xiomara BETTENCOURT [facility] CPT-4: 90224 07/22/2013 ([id number]) OFFICE/OUTPA TIENT VISIT EST Diagnosis: 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I, UNCONTROLLED[ICD9: 250.02] Diagnosis: HYPERTENSION[ICD9: 401.9] [facility] CPT-[facility]: 15985 05/26/2013 ([id number]) OFFICE/OUTPA TIENT VISIT EST Diagnosis: MONONEURITIS[ICD9: 355.9] Diagnosis: RESTLESS LEGS SYNDROME[ICD9: 333.94] Diagnosis: HYPERTENSION[ICD9: 401.9] Diagnosis: CAD[ICD9: 414.00] Diagnosis: Weakness[ICD9: 780.79] [facility] CPT-4: 13841 04/28/2013 ([id number]) OFFICE/OUTPA TIENT VISIT EST Diagnosis: 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[ICD9: 250.01] Diagnosis: MONONEURITIS[ICD9: 355.9] Diagnosis: HYPERLIPIDEMIA NEC/NOS[ICD9: 272.4] Diagnosis: CAD[ICD9: 414.00] [facility] CPT-4: 28923 03/12/2013 OFFICE/OUTPATIENT SIT NEW Diagnosis: CAD[ICD9: 414.00] Diagnosis: HYPERLIPIDEMIA NEC/NOS[ICD9: 272.4] Diagnosis: HYPERTENSION[ICD9: 401.9] Diagnosis: Neuropathy[ICD9: 355.9] Diagnosis: RESTLESS LEGS SYNDROME[ICD9: 333.94] [facility]: 15765 03/11/2013 Plan of Care Planned Activity Notes [...] : J01.90 02/22/2019 Appointment: Pennie Pizarro [address] [place] [address] ACUTE ILLNESS 02/22/2019 Patient Education: prednisone- OptimizeRX Coupon [id number] [email or web address] Completed 02/22/2019 Visit Diagnosis Plan: Cervicalgia Di scussion: Check Cervical Spine X-ray Will likely need PT ICD-9 : 723.1 ICD-10 : M54.2 11/25/2018 Appointment: Xiomara Bettencourt WPtel: [address] [place] [address] ACUTE ILLNESS 11/25/2018 Visit Plan: Saline nasal [...] prn. Tyle... 11/19/2018 Appointment: Xiomara Bettencourt WPtel: [facility] [address] ACUTE ILLNESS 11/19/2018 Patient Education: baclofen- Opt[employer] Coupon [id number] [email or web address]/[email or web address] Completed 11/19/2018 Visit Diagnosis Plan: Paroxysmal atrial [...] I10 07/22/2018 Appointment: Xiomara Bettencourt [facility]el[facility] [phone] [id number] FO[facility] 07/22/2018 Visit Diagnosis Plan: Hyperlipidemia, unspecified Discussion: Stable Lab discussed ICD-9 : 272.4 ICD-10 : E78.5 04/21/2018 Visit Diagnosis Plan: Chronic kidney disease, stage 1 Discussion: DC NSAIDs May use tylenol ICD-9 : 585.1 ICD-10 : N18.1 04/21/2018 Visit Diagnosis Plan: Type 2 diabetes me llitus with diabetic neuropathy, unspecified Discussion: Stable Lab discussed Accuche cks daily Flu shot given Discussion: Stable Lab discussed Accuchecks daily ICD-9 : 250.60 ICD-10 : E11.40 04/21/2018 Visit Diagnosis Plan: Essential (primary) hypertension Discussion: Stable ICD-9 : 401.9 ICD-10 : I10 04/21/2018 Visit Diagnosis Plan: Benign prostatic h yperplasia with lower urinary tract symptoms Discussion: Trial of flomax Call in 1 mo [facility] on how doing Follow Up: 4 months ICD-9 : 600.21 ICD-10 : N40.1 04/21/2018 Appointment: Xiomara Bettencourt [facility]Ptel[facility] [phone] [facility] FOLLOW [facility] 04/21/2018 Patient Education: Patient [...] ICD-10 : E78.2 01/06/2018 Appointment: Pennie Pizarro [address] [place] [address] MEDICATION REVIEW 01/06/2018 Patient Education: Patient Medication Summary Completed 01/06/2018 Appointment: Xiomara Bettencourt WPtel: [address] [place], [place] [phone] [place] NO SHOW 01/05/2018 Appointment: Xiomara Bettencourt WPtel: [address] [place], [place] [phone] [place] CANCELED 12/31/2017 Visit Diagnosis Plan: Actinic keratosis Discussion: Cryotherapy as above but will see derm if lesions do not resolve ICD-9 : 702.0 ICD-10 : L57.0 10/22/2017 Appointment: Xiomara Bettencourt WPtel: [address] [place], [place] [phone] [place] ACUTE ILLNESS 10/22/2017 Patient Education: Patient Medication [...] M79.605 04/22/2017 Appointment: Xiomara Bettencourt [facility]Ptel[facility] [phone] [facility] FOLLOW [facility] 04/22/2017 Patient Education: Patient Medication Summary Completed 04/22/2017 Patient Education: Patient Medication Summary Completed 04/16/2017 Care Plan: COMPREHEN METABOLIC PANEL LOINC : 77268-3 Pending 04/16/2017 Care Plan: LIPID PANEL LOINC : 01091-4 Pending 04/16/2017 Care Plan: CBC Pending 04/16/2017 Care Plan: A1C HPLC LO INC : 51478-9 Pending 04/16/2017 Referral: Inocencio Goodson WPtel: [facility] [id number] [place] Referral Appointment Confirmed 10/14/2016 Visit Diagnosis Plan: Type 2 diabetes me llitus with hyperglycemia Discussion: Continue toujeo Accuchecks B ID Follow Up: 4 months ICD-9 : 250.02 ICD-10 : E11.65 10/10/2016 Visit Diagnosis Plan: Angina pectoris, unspecified Discussion: Continue imdur and see cardiology To ER if chest pain returns ICD-9 : 413.9 ICD-10 : I20.9 10/10/2016 Appointment: Xiomara Bettencourt [facility]Ptel[facility] [phone] [facility] FOLLOW [facility] 10/10/2016 Patient Education: Patient Medication Summary Completed 10/10/2016 Patient Education: Patient Medication Summary Completed 09/16/2016 Care Plan: COMPREHEN METABOLIC PANEL LOINC : 23289-5 Pending 09/16/2016 Care Plan: ASSAY THYROID STIM HORMONE Pending 09/16/2016 Care Plan: ASSAY OF FREE THYROXINE Pending 09/16/2016 Care Plan: LIPID PANEL LOINC : 49262-9 Pending 09/16/2016 Care Plan: CBC Pending 09/16/2016 Care Plan: A1C HPLC LO INC : 38338-8 Pending 09/16/2016 Visit Plan: CXR now to further eval uate symptoms Suspect viral since he has been on 2 rounds of antibiotics If chronic lung disease evident, 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 today with instructions on [...] disease evident, 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 today with instructions on [...] with CXR results 08/31/2015 Appointment: [facility] [facility] 08/31 confirmed- SP ACUTE ILLNESS 08/31/2015 Patient Education: Patient Medication Summary Completed 08/31/2015 Visit Plan: Albuterol INH via SVN e very 4 hours Prednisone 20 mg PO BID Notify for worsening symptoms 08/29/2015 Visit Plan: Albuterol INH via SVN e very 4 hours Prednisone 20 mg PO BID Notify for worsening symptoms 08/29/2015 Appointment: Kelsie Grubbs WPtel: [address] [place], [place] [phone] ACUTE ILLNESS 08/29/2015 Patient Education: Patient Medication Summary Completed 08/29/2015 Appointment: Xiomara Bettencourt WPtel: [address] [place], [place] [phone] LAB 07/26/2015 Patient Education: Patient Medication Summary [...] knees, bilaterally. 07/24/2015 Appointment: Kelsie Grubbs WPtel: [address] [place], [place] [phone] 07/21 appt confirmed cn FOLLOW UP 07/24/2015 Appointment: Kelsie Grubbs WPtel: [address] [place], [place] [phone] FOLLOW UP 07/24/2015 Patient Education: Patient Medication [...] insulin 05/01/2015 Appointment: Xiomara Bettencourt WPtel: [address] [place] [address] 04/28 confirmed~sl ACUTE ILLNESS 05/01/2015 Patient Education: Patient Medication Summary Completed 05/01/2015 Patient Education: Patient Medication Summary Completed 01/19/2015 Care Plan: URINALYSIS AUTO W/O SCOPE LOINC : 16950-0 Pending 01/19/2015 Visit Plan: I have went through his medications in past and stopped meds but he adjusts his meds on his own and has restarted some Stop Amaryl Once again discussed not using indomethacin routinely due to taking leticia vix and aspirin daily and mcfp use is dangerous Check CBC, CMP, TSH, [...] taking leticia vix and aspirin daily and mcfp use is dangerous Check CBC, CMP, TSH, free T4, B12 and HbA1C Patient has seen Cardiology recently but no cardiac cath done--had chemical stress test 01/17/2015 Appointment: Xiomara Bettencourt WPtel: [address] [place] [address] 01/16 vm cn ACUTE ILLNESS 01/17/2015 Patient Education: Patient Medication Summary Completed 01/17/2015 Visit Plan: See Dr. Garvin for remov al 09/29/2014 Appointment: Xiomara Bettencourt WPtel: [address] [place] [address] ACUTE ILLNESS 09/29/2014 Referral: Colt Garvin WPtel: [address] Referral Initiated 09/29/2014 Patient Education: Patient Medication Summary Completed 09/29/2014 Visit Plan: Check CBC, CMP, TSH, fr ee T4, HbA1C, Lipids Accuchecks daily alternating times Patient has been adjusting own meds and has not taken any cholesterol meds for sometime Will check into surgery on right knee at [facility] Check carotid dopplers 08/04/2014 Appointment: Xiomara Bettencourt WPtel: [address] [place], [place] [address] Annual Well Visit 08/04/2014 Patient Education: Patient Medication Summary Completed 08/04/2014 Visit Plan: Stop Omeprazole 20 mg a nd start Zegerid 40mg PO daily x 14 days then resume previous dose of Omeprazole. May take Zofran 8 mg SL as needed every 8 hours for nausea [place] diet 02/18/2014 Appointment: Kelsie Grubbs WPtel: [address] [place] [address] ACUTE ILLNESS 02/18/2014 Patient Education: Patient Medication Summary Completed 02/18/2014 Patient Education: [facility] - Saving AutoInj - 18+ - Dynamic Portal ID Completed 02/18/2014 Appointment: Xiomara Bettencourt WPtel: [address] [place] [address] LAB 09/08/2013 Visit Plan: Check fasting lab in 1m o Continue Lantus and accuchecks at least BID 07/29/2013 Appointment: Xiomara Bettencourt WPtel: [address] [place], [place] [address] FOLLOW UP 07/29/2013 Patient Education: Patient Medication Summary Completed 07/29/2013 Appointment: Xiomara Bettencourt WPtel: [address] [place], [place] [phone] INJECTION 07/22/2013 Patient Education: Patient Medication Summary Completed 07/22/2013 Visit Plan: Pt has been self-adjust ing meds Stop metformin and amaryl Use Levemir 25u sc BID and call in 1wk with BS readings 05/26/2013 Appointment: Xiomara Bettencourt WPtel: [address] [place], [place] [address] FOLLOW UP 05/26/2013 Patient Education: Patient Medication Summary Completed 05/26/2013 Visit Plan: DC Metformin Increase L antus to 30u sc daily Change lisinopril to lisinopril HCT 20/25mg q AM Continue Gabapentin at current dose 04/28/2013 Appointment: Xiomara Bettencourt WPtel: [phone] [facility] FOLLOW UP 04/28/2013 Patient Education: Patient Medication Summary Completed 04/28/2013 Appointment: Xiomara Bettencourt [facility]Ptel[facility] [phone] [facility] [place] LAB 03/12/2013 Patient Education: Patient Medication Summary Completed 03/12/2013 Visit Plan: Trial of neurontin 400m g q HS Obtain most recent lab results Change levemir to lantus per pt request Pt goes for sleep study tonite 03/11/2013 Appointment: Xiomara Bettencourt WPtel: [phone] [facility] 02/01paperwork mailed 03/10 confirmed with spouse NEW PATIENT 03/11/2013 Patient Education: Patient Medication Summary Completed 03/11/2013 Instructions Comment . Saline nasal flush es prn. Tylenol/Motrin prn headache. Notify if persists/symptoms worsening. . 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 I have went throug h his medications in past and stopped meds but he adjusts his meds on his own and has restarted some Stop Amaryl Once again discussed not using indomethacin routinely due to taking plavix and aspirin daily and mcfp use is dangerous Check CBC, CMP, TSH, [...] to taking plavix and aspirin daily and mcfp use is dangerous Check CBC, CMP, TSH, free T4, B12 and HbA1C Patient has seen Cardiology recently but no cardiac cath done--had chemical stress test . Pt has been self-a djusting meds Stop metformin and amaryl Use Levemir 25u sc BID and call in 1wk with BS readings . Check CBC, CMP, TS H, free T4, HbA1C, Lipids Accuchecks daily alternating times Patient has been adjusting own meds and has not taken any cholesterol meds for sometime Will check into surgery on right knee at [facility] Check carotid dopplers Has previously compl eted 10 days of Keflex and 5 days of Azithromycin . Albuterol INH via SVN every 4 hours Prednisone 20 mg PO BID Notify for worsening symptoms Has previously compl eted 10 days of Keflex and 5 days of Azithromycin . Albuterol INH via SVN every 4 hours Prednisone 20 mg PO BID Notify for worsening symptoms . See Dr. Garvin for removal . Trial of neurontin 400mg q HS Obtain most recent lab results Change levemir to lantus per pt request Pt goes for sleep study tonite . Retry gabapentin a t 300mg q [...] and decreased pain in knees, bilaterally. . DC Metformin Increase Lantus to 30u sc daily Change lisinopril to lisinopril HCT 20/25mg q AM Continue Gabapentin at current dose . Stop Omeprazole 20 mg and start Zegerid 40mg PO daily x 14 days then resume previous dose of Omeprazole. May take Zofran 8 mg SL as needed every 8 hours for nausea [place] diet . Check fasting lab in 1mo Continue Lantus and accuchecks at least BID
--- NOTE | 2020-02-02 21:50 | Diagnostic Imaging Report ---
PROCEDURE: CT head and CT cervical spine without contrast. TECHNIQUE: Multiple contiguous axial images were obtained through the brain and cervical spine without the use of intravenous contrast. Sagittal and coronal reformations through the cervical spine were then performed. Auto Exposure Controls were utilized during the CT exam to meet ALARA standards for radiation dose reduction. Examination is limited due to motion. INDICATION: Fall with head and cervical region pain. FINDINGS: CT head: Ventricles and sulci are within normal limits for size. There is no intracranial hemorrhage identified. There is no abnormal mass effect or shift of midline structures. There is atherosclerotic calcification within distal internal carotid and vertebral arteries, bilaterally. IMPRESSION: Unremarkable CT of the head. CT cervical spine: There is loss of normal cervical lordosis. Vertebral body heights and disc spaces are maintained. Prevertebral soft tissues are unremarkable and there is no evidence of paraspinous hematoma. There is mild diffuse degenerative disc and facet disease. IMPRESSION: Loss of normal cervical lordosis which may be due to positioning or muscle spasm. There is, otherwise, no CT evidence of acute cervical spinal abnormality. Dictated by: Dictated on workstation # [id number]
--- OUTSIDE RECORDS SUMMARY | 2020-02-02 21:51 | XMS REPORT | CCD ---
Author Author Sheng Bettencourt D.O. Organization [facility] S[facility] BETTENCOURT DO [facility] Address [address] [place] [address] Phone Care Team Providers Care Insulation Manager Name Role Phone PP Unavailable CCM Unavailable Summary Purpose Interface Exchange Insurance Providers Payer name Policy type / Coverage type Covered green party ID Effective Begin Date Effective End Date WPS MEDICARE PART B [place] Medicare Part B [id number] 2018 Unknown [facility] Medicare Part B [id number] Unknown Family history Mother Diagnosis Age At Onset Diabetes mellitus Type 2 Unknown Hypercholesterolemia Unknown Father Diagnosis Age At Onset No Family Disease Entered N/A Social History Social History Element Codes Description Effective Dates Marital status Unknown M arried 03/11/2013 Number of children Unknown 4 03/11/2013 Employment Unknown Retir ed 03/11/[address]: 2247039 Former smoker 03/11/[address]: 792973 Currently drinks alcohol Socially 03/11/2013 Has the [...] Instructions Augmentin 500 mg-125 mg tablet RxNorm: 129722 1 Tablet(s) PO BID 02/22/2019 03/03/2019 Active baclofen 10 mg tablet RxNorm: 681323 TAKE ONE TABLET BY MOUTH EVERY NIGHT AT BEDTIME FOR PAIN OR SPASMS 01/14/2019 03/14/2019 Active Flomax 0.4 mg capsule RxNorm: 676338 TAKE TWO CAPSULES BY MOUTH EVERY EVENING 01/12/2019 07/10/2019 Ac tive gabapentin 400 mg ca psule RxNorm: 236156 1 Capsule(s) PO QPM 12/30/2018 06/27/2019 Active baclofen 10 mg tablet RxNorm: 174863 1 Tablet(s) PO QHS for pain/spasm 12/15/2018 01/13/2019 In active simvastatin 20 mg ta blet RxNorm: 778286 TAKE ONE TABLET BY MO UTH DAILY 12/11/2018 06/08/2019 Ac tive OneTouch Ultra Blue Test Strip RxNorm: Use 1 test strip three time s daily to check blood sugar (Dx:E11.65) 12/07/2018 No Stop Date Active gabapentin 400 mg ca psule RxNorm: 097655 TAKE ONE CAPSULE BY M OUTH EVERY EVENING 12/04/2018 12/29/2018 In active baclofen 10 mg tablet RxNorm: 722320 1 Tablet(s) PO QHS for pain/spasm 11/19/2018 12/15/2018 In active Flomax 0.4 mg capsule RxNorm: 931917 2 Capsule(s) PO QPM 09/15/2018 12/13/2018 Inactive WOULD LIKE 90DS!!! gabapentin 400 mg ca psule RxNorm: 635893 TAKE ONE CAPSULE BY M OUTH EVERY EVENING 07/21/2018 10/18/2018 In active simvastatin 20 mg ta blet RxNorm: 815134 1 Tablet(s) PO QD 06/15/2018 12/10/2018 Inactive Flomax 0.4 mg capsule RxNorm: 766993 TAKE TWO CAPSULES BY MOUTH EVERY EVENING 06/02/2018 09/15/2018 In active WOULD LIKE 90DS!!! Flomax 0.4 mg capsule RxNorm: 115629 2 Capsule(s) PO QPM 04/21/2018 05/20/2018 Inactive simvastatin 20 mg ta blet RxNorm: 905058 1 Tablet(s) PO QD Anil e 1 tablet by mouth daily. Patient due for labwork before further refill. 04/06/2018 04/12/2018 Inactive simvastatin 20 mg ta blet RxNorm: 684310 Tablet(s) TAKE ONE TA BLET BY MOUTH DAILY 03/25/2018 06/15/2018 In active simvastatin 20 mg ta blet RxNorm: 612993 Tablet(s) TAKE ONE TA BLET BY MOUTH DAILY due for appt 12/29/2017 03/25/2018 Inactive simvastatin 20 mg ta blet RxNorm: 175179 TAKE ONE TABLET BY MO UTH DAILY 09/03/2017 12/29/2017 In active simvastatin 20 mg ta blet RxNorm: 105401 1 Tablet(s) PO QD 10/22/2016 11/18/2018 Inactive isosorbide mononitra te ER 60 mg tablet,extended release 24 hr RxNorm: 645563 1 Tablet(s) PO QD 10/22/2016 04/21/2017 Inactive isosorbide mononitra te ER 60 mg tablet,extended release 24 hr RxNorm: 219456 1 Tablet(s) PO QD 10/10/2016 10/21/2016 Inactive simvastatin 20 mg ta blet RxNorm: 345342 1 Tablet(s) PO QD 10/10/2016 10/21/2016 Inactive gabapentin 400 mg ca psule RxNorm: 925201 1 Capsule(s) PO QPM 07/23/2016 09/20/2016 Inactive Tomariel SoloStar 300 unit/mL (1.5 mL) subcutaneous insulin pen RxNorm: 2443347 35 Unit(s) SQ QAM 07/23/2016 07/22/2016 Inactive Tamia SoloStar 300 unit/mL (1.5 mL) subcutaneous insulin pen RxNorm: 8157621 40 Unit(s) SQ QAM 09/01/2015 No Stop Date Active Symbicort 160 mcg-4. 5 mcg/actuation HFA aerosol inhaler RxNorm: 6463222 2 Puff(s) INH BID 08/31/2015 09/09/2015 Inactive prednisone 20 mg tablet RxNorm: 803955 1 Tablet(s) PO BID 08/29/2015 09/02/2015 Inactive albuterol sulfate 2. 5 mg/3 mL (0.083 %) solution for nebulization RxNorm: 267788 1 Unit(s) INH Q4H as needed 08/29/2015 10/09/2016 Inactive levothyroxine 75 mcg tablet RxNorm: 350882 1 Tablet(s) PO QD 07/28/2015 07/27/2015 Inactive levothyroxine 75 mcg tablet RxNorm: 043640 1 Tablet(s) PO QD 07/28/2015 11/18/2018 Inactive levothyroxine 75 mcg tablet RxNorm: 184515 1 Tablet(s) PO QD 07/28/2015 07/27/2015 Inactive lisinopril 20 mg-hyd rochlorothiazide 25 mg tablet RxNorm: 164772 TAKE ONE TABLET BY MOUTH EVERY MORNING. REPLACES PLAIN LISINOPRIL 03/06/2015 04/21/2017 Inactive lisinopril 20 mg-hyd rochlorothiazide 25 mg tablet RxNorm: 321175 TAKE ONE TABLET BY MOUTH EVERY MORNING. REPLACES PLAIN LISINOPRIL 09/08/2014 03/05/2015 Inactive allopurinol 100 mg t ablet RxNorm: 196622 1 Tablet(s) PO BID 08/11/2014 10/09/2016 Inactive [SAVINGS FOR NON-COVERED DRUGS -- BIN:00 0900, PCN: [id number], Group: [id number], ID# [id number], Questions: . THIS IS NOT INSURANCE.] levothyroxine 50 mcg tablet RxNorm: 730302 1 Tablet(s) PO QD 08/11/2014 07/26/2015 Inactive [AttnRPh: Saving apply/adjudicate RxGRP: [id number] RxBIN:[id number] RxPCN:HT ID#:[id number]] Zegerid 40 mg-1.1 gr am capsule RxNorm: 092340 1 Capsule(s) PO QD 02/18/2014 03/03/2014 Inactive [AttnRPh: Saving apply/adjudicate RxGRP: [id number] RxBIN:[id number] RxPCN:HT ID#:[id number]] ondansetron 8 mg dis integrating tablet RxNorm: 012285 1 Tablet(s) PO Q8H as needed for nausea 02/18/2014 08/03/2014 Inactive lisinopril 20 mg-hyd rochlorothiazide 25 mg tablet RxNorm: 616929 1 Tablet(s) PO QAM replaces plain lisinopril 08/23/2013 02/18/2014 Inactive lisinopril 20 mg-hyd rochlorothiazide 25 mg tablet RxNorm: 490157 1 Tablet(s) PO QAM replaces plain lisinopril 08/05/2013 08/22/2013 Inactive lisinopril 20 mg-hyd rochlorothiazide 25 mg tablet RxNorm: 571740 1 Tablet(s) PO QAM replaces plain lisinopril 07/29/2013 08/04/2013 Inactive lisinopril 20 mg-hyd rochlorothiazide 25 mg tablet RxNorm: 595547 1 Tablet(s) PO QAM replaces plain lisinopril 07/26/2013 07/28/2013 Inactive gabapentin 400 mg ca psule RxNorm: 037691 1 Capsule(s) PO QPM 07/01/2013 07/28/2013 Inactive gabapentin 400 mg ca psule RxNorm: 637708 1 Capsule(s) PO QPM 04/28/2013 06/26/2013 Inactive lisinopril 20 mg-hyd rochlorothiazide 25 mg tablet RxNorm: 908006 1 Tablet(s) PO QAM replaces plain lisinopril 04/28/2013 07/29/2013 Inactive gabapentin 400 mg ca psule RxNorm: 868597 1 Capsule(s) PO QPM 03/15/2013 04/27/2013 Inactive gabapentin 400 mg ca psule RxNorm: 414889 1 Capsule(s) PO QPM 03/11/2013 03/10/2013 Inactive gabapentin 400 mg ca psule RxNorm: 571000 1 Capsule(s) PO QPM 03/11/2013 03/14/2013 Inactive Lantus Solostar 100 unit/mL (3 mL) Sub-Q Insulin Pen RxNorm: 426846 20 Unit(s) SQ QPM 03/11/2013 03/15/2013 Inactive Toujeo SoloStar 300 unit/mL (1.5 mL) subcutaneous insulin pen RxNorm: 7522725 35 Unit(s) SQ QAM No Start Date Active omeprazole 20 mg cap roman,delayed release RxNorm: 851646 1 Capsule(s) PO QD No Start Date Active isosorbide mononitra te ER 60 mg tablet,extended release 24 hr RxNorm: 183208 1 Tablet(s) PO QD No Start Date Active lisinopril 20 mg tablet RxNorm: 706364 1 Tablet(s) PO QD No Start Date Active Chlortab-4 oral RxNorm: 465510 oral No Start Date Active Eliquis 5 mg tablet RxNorm: 9706888 1 Tablet(s) PO BID No Start Date Active oxymetazoline-mentho l 0.05 % nasal spray RxNorm: 5513527 [place] NASAL No Start Date Active Patient states he takes every 10 hours metformin 500 mg tablet RxNorm: 012300 1 Tablet(s) PO BID No Start Date Active levothyroxine 50 mcg tablet RxNorm: 855225 1 Tablet(s) PO QD No Start Date Active Plavix 75 mg tablet RxNorm: 043983 1 Tablet(s) PO QD No Start Date Active Norvasc 10 mg tablet RxNorm: 318541 1 Tablet(s) PO QHS No Start Date Active Zantac 150 mg tablet RxNorm: 578196 1 Tablet(s) PO QHS No Start Date Active Toujeo SoloStar 300 unit/mL (1.5 mL) subcutaneous insulin pen RxNorm: 4365246 30 Unit(s) SQ QAM No Start Date Active glimepiride 4 mg tablet RxNorm: 426060 1 Tablet(s) PO QHS No Start Date 07/26/2015 Inactive allopurinol 100 mg t ablet RxNorm: 067334 1 Tablet(s) PO BID No Start Date 08/10/2014 Inactive Lantus Solostar 100 unit/mL (3 mL) subcutaneous insulin pen RxNorm: 817720 30 Unit(s) SQ QD No Start Date 08/03/2014 Inactive Levemir FlexTouch 10 0 unit/mL (3 mL) subcutaneous insulin pen RxNorm: 039967 25 Unit(s) SQ QAM No Start Date 07/23/2015 Inactive Lantus 100 unit/mL S ub-Q RxNorm: 450869 30 Unit(s) SQ QHS No Start Date 05/25/2013 Inactive Lantus Solostar 100 unit/mL (3 mL) Sub-Q Insulin Pen RxNorm: 360078 20 Unit(s) SQ QPM No Start Date 03/10/2013 Inactive OneTouch Ultra Blue Test Strip RxNorm: Use 1 test strip three time s daily to check blood sugar (Dx:E11.65) No Start Date 12/06/2018 Inactive Levemir FlexTouch 10 0 unit/mL (3 mL) subcutaneous insulin pen RxNorm: 117245 30-35 Unit(s) SQ QAM No Start Date 07/23/2015 Inactive Levemir Flexpen 100 unit/mL (3 mL) solution subcutaneous insulin pen RxNorm: 123268 20-25 Unit(s) SQ QD No Start Date 07/28/2013 Inactive indomethacin ER 75 m g capsule,extended release RxNorm: 384001 1 Capsule(s) PO QAM No Start Date 04/27/2013 Inactive indomethacin ER 75 m g capsule,extended release RxNorm: 352220 1 Capsule(s) PO QD No Start Date 01/16/2015 Inactive Vitamin D3 5,000 uni t tablet RxNorm: 560132 1 Tablet(s) PO QD No Start Date 08/03/2014 Inactive Levemir Flexpen 100 unit/mL (3 mL) solution subcutaneous insulin Pen RxNorm: 217606 20 Unit(s) SQ QHS No Start Date 03/10/2013 Inactive Vytorin 10 mg-40 mg tablet RxNorm: 2088473 1/2 Tablet(s) PO QD No Start Date 04/20/2018 Inactive Toujeo SoloStar 300 unit/mL (1.5 mL) subcutaneous insulin pen RxNorm: 9082429 35 Unit(s) SQ QAM No Start Date 07/22/2016 Inactive Lantus Solostar 100 unit/mL (3 mL) subcutaneous insulin pen RxNorm: 512562 20 Unit(s) SQ QD No Start Date 08/03/2014 Inactive aspirin 81 mg tablet RxNorm: 181675 1 Tablet(s) PO QD No Start Date 08/03/2014 Inactive metformin 500 mg tablet RxNorm: 596915 1 Tablet(s) PO BID No Start Date 07/28/2013 Inactive glimepiride 4 mg tablet RxNorm: 608880 1 Tablet(s) PO BID No Start Date 01/16/2015 Inactive glimepiride 4 mg tablet RxNorm: 934423 1 Tablet(s) PO QD No Start Date 08/03/2014 Inactive levothyroxine 25 mcg tablet RxNorm: 890961 1 Tablet(s) PO QD No Start Date 08/10/2014 Inactive aspirin 81 mg tablet RxNorm: 395749 1 Tablet(s) PO QD No Start Date 07/21/2018 Inactive isosorbide mononitra te ER 60 mg tablet,extended release 24 hr RxNorm: 795256 1 Tablet(s) PO BID No Start Date 01/16/2015 Inactive metformin 500 mg tablet RxNorm: 223387 1 Tablet(s) PO BID No Start Date 04/27/2013 Inactive glimepiride 4 mg tablet RxNorm: 264446 1 Tablet(s) PO QPM No Start Date 02/21/2019 Inactive Vytorin 10-40 10 mg- 40 mg tablet RxNorm: 1505376 1 Tablet(s) PO QHS No Start Date 08/03/2014 Inactive indomethacin 50 mg c apsule RxNorm: 457573 1 Capsule(s) PO QHS No Start Date 01/16/2015 Inactive glimepiride 4 mg tablet RxNorm: 781817 1 Tablet(s) PO BID No Start Date 07/28/2013 Inactive Levemir FlexTouch 10 0 unit/mL (3 mL) subcutaneous insulin pen RxNorm: 297953 20 Unit(s) SQ QD No Start Date 04/30/2015 Inactive lisinopril 20 mg tablet RxNorm: 690697 1 Tablet(s) PO BID No Start Date 04/27/2013 Inactive Lantus Solostar SubQ RxNorm: Subcutaneous No Start Date 03/15/2013 Inactive allopurinol 300 mg t ablet RxNorm: 585697 1 Tablet(s) PO QD No Start Date 08/03/2014 Inactive Fish Oil 1,000 mg ca psule RxNorm: 1 Capsule(s) PO QD No Start Date 02/21/2019 Inactive indomethacin 50 mg c apsule RxNorm: 930700 1 Capsule(s) PO BID No Start Date 04/20/2018 Inactive levothyroxine 50 mcg tablet RxNorm: 947758 1 Tablet(s) PO QD No Start Date 08/10/2014 Inactive glimepiride 4 mg tablet RxNorm: 926995 1 Tablet(s) PO BID No Start Date 03/15/2013 Inactive indomethacin 50 mg c apsule RxNorm: 860862 1 Capsule(s) PO QHS No Start Date [...] Item Item Code Result Date [facility] 72348 Choles terol 209 mg/dL 09/17/2016 [facility] 63413 Trigly ceride 111 mg/dL 09/17/2016 [facility] 42876 HDL CH OLESTEROL 50 mg/dL 09/17/2016 [facility] 75917 Chol/H DL Ratio 4.18 ratio 09/17/2016 [facility] 78056 NON-HD L Chol 159 mg/dL 09/17/2016 [facility]IP[facility] GROUP 98515 LDL Ch olesterol 137 mg/dL 09/17/2016 MEAN GLUC 1435395 Calc M ina Gluc 151 mg/dL 09/17/2016 COMPREHENSIVE METABOLIC 50054 AST 23 U/L 09/17/2016 COMPREHENSIVE METABOLIC 14059 ALT 19 U/L 09/17/2016 COMPREHENSIVE METABOLIC 79264 BUN 15 mg/dL 09/17/2016 COMPREHENSIVE METABOLIC 20904 ALBUMIN 4.3 g/dL 09/17/2016 COMPREHENSIVE METABOLIC 61412 CHLORIDE 103 mmol/L 09/17/2016 COMPREHENSIVE METABOLIC 02315 Bili Total 0.6 mg/dL 09/17/2016 COMPREHENSIVE METABOLIC 47732 ALK PHOS 60 U/L 09/17/2016 COMPREHENSIVE METABOLIC 95259 SODIUM 140 mmol/L 09/17/2016 COMPREHENSIVE METABOLIC 27158 CREATININE 1.03 mg/dL 09/17/2016 COMPREHENSIVE METABOLIC 67689 CALCIUM 9.5 mg/dL 09/17/2016 COMPREHENSIVE METABOLIC 68019 POTASSIUM 3.9 mmol/L 09/17/2016 COMPREHENSIVE METABOLIC 17048 Total Protein 6.9 g/dL 09/17/2016 COMPREHENSIVE METABOLIC 85104 Glucose 94 mg/dL 09/17/2016 COMPREHENSIVE METABOLIC 65172 Bicarbonate 28 mmol/L 09/17/2016 COMPREHENSIVE METABOLIC 03131 AGAP 9 mmol/L 09/17/2016 GFR CALC 1897944 GFR Non Afr Amr >60 mL/min 09/17/2016 GFR CALC 6022736 GFR Afr Amr >60 mL/min 09/17/2016 THYROID STIMULATING HORMONE 40768 TSH 4.260 uIU/mL 09/17/201 7 GLYCOSYLATED HEMOGLOBIN TEST 76051 Hgb A1c 68757-2 6.9 % 09/17/2016 FREE T4 46628 T4 Free 1.02 ng/dL 09/17/2016 COMPLETE BLOOD COUNT 3667496 WBC 8.6 10e9/L 07/26/2015 COMPLETE BLOOD COUNT 6654297 RBC 4.86 10e12/L 6 COMPLETE BLOOD COUNT 1560876 HGB 14.6 g/dL 07/26/2015 COMPLETE BLOOD COUNT 1554921 HCT DET 43.1 % 07/26/2015 COMPLETE BLOOD COUNT 4314789 MCV 88.7 fL 07/26/2015 COMPLETE BLOOD COUNT 9079102 MCH 30.0 pg 07/26/2015 COMPLETE BLOOD COUNT 6075481 MCHC 33.9 g/dL 07/26/2015 COMPLETE BLOOD COUNT 3952427 PLT 267 10e9/L 07/26/2015 COMPLETE BLOOD COUNT 4385612 MPV 11.5 fL 07/26/2015 COMPLETE BLOOD COUNT 0112060 SAM % 64.8 % 07/26/2015 COMPLETE BLOOD COUNT 6827376 LY % 16.8 % 07/26/2015 COMPLETE BLOOD COUNT 0405667 MON % 12.5 % 07/26/2015 COMPLETE BLOOD COUNT 2484161 EOS % 5.6 % 07/26/2015 COMPLETE BLOOD COUNT 9345507 BASO % 0.3 % 07/26/2015 COMPLETE BLOOD COUNT 6439411 RDW 13.4 % 07/26/2015 COMPLETE BLOOD COUNT 7264228 ABS SAM 5.57 10e9/L 07/26/2015 COMPLETE BLOOD COUNT 1774719 ABS LYMPH 1.44 10e9/L 07/26/2015 COMPLETE BLOOD COUNT 4713829 ABS MONO 1.08 10e9/L 07/26/2015 COMPLETE BLOOD COUNT 0404682 ABS EOS 0.48 10e9/L 07/26/2015 COMPLETE BLOOD COUNT 0381264 ABS BASO 0.03 10e9/L 07/26/2015 COMPLETE BLOOD COUNT 9002679 RDW-SD 42.9 fL 07/26/2015 PSA EQUIMOLAR MATT 83816 PSA EQ 0.78 NG/ML 07/26/2015 THYROID STIMULATING HORMONE 31719 TSH 5.292 uIU/ML 6 GLYCOSYLATED HEMOGLOBIN TEST 13219 A1C HPLC 40754-4 7.0 % 07/26/2015 GFR CALC 6636849 GFR AA >60 ML/MIN 07/26/2015 GFR CALC 1669104 GFR NON -AA >60 ML/MIN 07/26/2015 LIPID GROUP [address] 64 MG/DL 07/26/2015 LIPID GROUP 73489 TRIG 58 MG/DL 07/26/2015 LIPID GROUP 66652 TEST L DL 49 MG/DL 07/26/2015 LIPID GROUP 94745 CHOL 125 MG/DL 07/26/2015 LIPID GROUP 09121 RCHOL/ HDL 1.95 RATIO 07/26/2015 LIPID GROUP 84857 NON-HD L CH 61 MG/DL 07/26/2015 COMPREHENSIVE METABOLIC 08707 AST 25 U/L 07/26/2015 COMPREHENSIVE METABOLIC 59781 ALT 23 IU/L 07/26/2015 COMPREHENSIVE METABOLIC 39081 BUN 18 MG/DL 07/26/2015 COMPREHENSIVE METABOLIC 24751 ALBUMIN 4.6 GM/DL 07/26/2015 COMPREHENSIVE METABOLIC 01224 CHLORIDE 100 MMOL/L 07/26/2015 COMPREHENSIVE METABOLIC 70595 BILI TOT 0.5 MG/DL 07/26/2015 COMPREHENSIVE METABOLIC 75756 ALK PHOS 49 U/L 07/26/2015 COMPREHENSIVE METABOLIC 96761 SODIUM 137 MMOL/L 07/26/2015 COMPREHENSIVE METABOLIC 47574 CREATININE 1.06 MG/DL 07/26/2015 COMPREHENSIVE METABOLIC 71217 CALCIUM 9.5 MG/DL 07/26/2015 COMPREHENSIVE METABOLIC 38920 POTASSIUM 4.5 MMOL/L 07/26/2015 COMPREHENSIVE METABOLIC 30021 PROT TOT 6.5 GM/DL 07/26/2015 COMPREHENSIVE METABOLIC 33283 Glucose 109 MG/DL 07/26/2015 COMPREHENSIVE METABOLIC 36288 BICARB 29 MMOL/L 07/26/2015 COMPREHENSIVE METABOLIC 39108 ANION GAP 8 MEQ/L 07/26/2015 FREE T4 32022 FREE T4 1.11 NG/DL 07/26/2015 CULTURE & SENSITIVITY 53195 PROTEIN UR NEG 01/24/2015 CULTURE & SENSITIVITY 88849 HEMGLBN UR TR 01/24/2015 CULTURE & SENSITIVITY 03672 GLUCOSE UR NEG 01/24/2015 CULTURE & SENSITIVITY 74238 KETONES UR NEG 01/24/2015 CULTURE & SENSITIVITY 17529 PH U 6.5 01/24/2015 CULTURE & SENSITIVITY 57087 SP GR U 1.013 01/24/2015 CULTURE & SENSITIVITY 57124 BILRUBN UR NEG 01/24/2015 CULTURE & SENSITIVITY 94627 LEUKO UR NEG 01/24/2015 CULTURE & SENSITIVITY 34392 NITRITE UR NEG 01/24/2015 MICR CUL? 7980614 SP TO JOHANA? NO 01/24/2015 MICR CUL? 9133422 APPEAR UR NORMAL 01/24/2015 MICR CUL? 8111347 RBC/uL 2.2 01/24/2015 MICR CUL? 6217365 WBC/uL 2.8 01/24/2015 MICR CUL? 1423169 SQ EPI /uL 1.0 01/24/2015 MICR CUL? 7959894 HYALCS T/uL 0.25 01/24/2015 MICR CUL? 3118154 WBC /H PF 1 01/24/2015 MICR CUL? 3376177 RBC /H PF 0 01/24/2015 GLYCOSYLATED HEMOGLOBIN TEST 58564 A1C HPLC 86509-1 6.6 % 01/17/2015 COMPLETE BLOOD COUNT 9262009 WBC 10.1 10e9/L 01/17/2015 COMPLETE BLOOD COUNT 3005679 RBC 4.60 10e12/L 5 COMPLETE BLOOD COUNT 0524743 HGB 14.0 g/dL 01/17/2015 COMPLETE BLOOD COUNT 8043782 HCT DET 39.9 % 01/17/2015 COMPLETE BLOOD COUNT 3359759 MCV 86.7 fL 01/17/2015 COMPLETE BLOOD COUNT 8738641 MCH 30.4 pg 01/17/2015 COMPLETE BLOOD COUNT 1070311 MCHC 35.1 g/dL 01/17/2015 COMPLETE BLOOD COUNT 5733762 PLT 252 10e9/L 01/17/2015 COMPLETE BLOOD COUNT 3873808 MPV 11.4 fL 01/17/2015 COMPLETE BLOOD COUNT 8034790 SAM % 72.9 % 01/17/2015 COMPLETE BLOOD COUNT 7100846 LY % 13.6 % 01/17/2015 COMPLETE BLOOD COUNT 1577696 MON % 10.2 % 01/17/2015 COMPLETE BLOOD COUNT 4743117 EOS % 3.1 % 01/17/2015 COMPLETE BLOOD COUNT 7817273 BASO % 0.2 % 01/17/2015 COMPLETE BLOOD COUNT 9283364 RDW 13.6 % 01/17/2015 COMPLETE BLOOD COUNT 7318131 ABS SAM 7.36 10e9/L 01/17/2015 COMPLETE BLOOD COUNT 9144537 ABS LYMPH 1.37 10e9/L 01/17/2015 COMPLETE BLOOD COUNT 5245495 ABS MONO 1.03 10e9/L 01/17/2015 COMPLETE BLOOD COUNT 1034429 ABS EOS 0.31 10e9/L 01/17/2015 COMPLETE BLOOD COUNT 8334098 ABS BASO 0.02 10e9/L 01/17/2015 COMPLETE BLOOD COUNT 4094775 RDW-SD 42.4 fL 01/17/2015 GFR CALC 4709757 GFR AA 51.0L ML/MIN 01/17/2015 GFR CALC 9422444 GFR NON -AA 42.0L ML/MIN 5 FREE T4 51756 FREE T4 1.30 NG/DL 01/17/2015 THYROID STIMULATING HORMONE 78796 TSH 4.029 uIU/ML 5 COMPREHENSIVE METABOLIC 76917 AST 28 U/L 01/17/2015 COMPREHENSIVE METABOLIC 15031 ALT 25 IU/L 01/17/2015 COMPREHENSIVE METABOLIC 10206 BUN 21 MG/DL 01/17/2015 COMPREHENSIVE METABOLIC 41467 ALBUMIN 4.7 GM/DL 01/17/2015 COMPREHENSIVE METABOLIC 26693 CHLORIDE 102 MMOL/L 01/17/2015 COMPREHENSIVE METABOLIC 88683 BILI TOT 0.6 MG/DL 01/17/2015 COMPREHENSIVE METABOLIC 92724 ALK PHOS 44 U/L 01/17/2015 COMPREHENSIVE METABOLIC 72585 SODIUM 137 MMOL/L 01/17/2015 COMPREHENSIVE METABOLIC 63719 CREATININE 1.62 MG/DL 01/17/2015 COMPREHENSIVE METABOLIC 68791 CALCIUM 9.7 MG/DL 01/17/2015 COMPREHENSIVE METABOLIC 76313 POTASSIUM 4.5 MMOL/L 01/17/2015 COMPREHENSIVE METABOLIC 45206 PROT TOT 6.5 GM/DL 01/17/2015 COMPREHENSIVE METABOLIC 17306 Glucose 136 MG/DL 01/17/2015 COMPREHENSIVE METABOLIC 19444 BICARB 24 MMOL/L 01/17/2015 COMPREHENSIVE METABOLIC 76416 ANION GAP 11 MEQ/L 01/17/2015 VITAMIN B 12 23035 VIT B 12 482 PG/ML 01/17/2015 URIC ACID 03206 URIC ACID 8.5 MG/DL 08/09/2014 COMPREHENSIVE METABOLIC 96762 AST 27 U/L 08/09/2014 COMPREHENSIVE METABOLIC 66646 ALT 26 IU/L 08/09/2014 COMPREHENSIVE METABOLIC 02752 BUN 17 MG/DL 08/09/2014 COMPREHENSIVE METABOLIC 86838 ALBUMIN 5.0 GM/DL 08/09/2014 COMPREHENSIVE METABOLIC 66109 CHLORIDE 101 MMOL/L 08/09/2014 COMPREHENSIVE METABOLIC 31984 BILI TOT 0.7 MG/DL 08/09/2014 COMPREHENSIVE METABOLIC 77452 ALK PHOS 53 U/L 08/09/2014 COMPREHENSIVE METABOLIC 93255 SODIUM 136 MMOL/L 08/09/2014 COMPREHENSIVE METABOLIC 70596 CREATININE 1.14 MG/DL 08/09/2014 COMPREHENSIVE METABOLIC 44486 CALCIUM 9.8 MG/DL 08/09/2014 COMPREHENSIVE METABOLIC 93095 POTASSIUM 4.1 MMOL/L 08/09/2014 COMPREHENSIVE METABOLIC 56895 PROT TOT 7.5 GM/DL 08/09/2014 COMPREHENSIVE METABOLIC 25895 Glucose 110 MG/DL 08/09/2014 COMPREHENSIVE METABOLIC 08244 BICARB 30 MMOL/L 08/09/2014 COMPREHENSIVE METABOLIC 38322 ANION GAP 5 MEQ/L 08/09/2014 GFR CALC 2441921 GFR AA >60 ML/MIN 08/09/2014 GFR CALC 6495886 GFR NON -AA >60 ML/MIN 08/09/2014 FREE T4 40773 FREE T4 1.14 NG/DL 08/09/2014 GLYCOSYLATED HEMOGLOBIN TEST 45107 A1C [facility] 00848-5 6.8 % 08/09/2014 COMPLETE BLOOD COUNT 8415094 WBC 5.9 10e9/L 08/09/2014 COMPLETE BLOOD COUNT 5464766 RBC 5.04 10e12/L 5 COMPLETE BLOOD COUNT 9681342 HGB 15.2 g/dL 08/09/2014 COMPLETE BLOOD COUNT 3284237 HCT DET 44.3 % 08/09/2014 COMPLETE BLOOD COUNT 7784638 MCV 87.9 fL 08/09/2014 COMPLETE BLOOD COUNT 0514813 MCH 30.2 pg 08/09/2014 COMPLETE BLOOD COUNT 0190459 MCHC 34.3 g/dL 08/09/2014 COMPLETE BLOOD COUNT 7818090 PLT 262 10e9/L 08/09/2014 COMPLETE BLOOD COUNT 9073775 MPV 10.9 fL 08/09/2014 COMPLETE BLOOD COUNT 2563971 SAM % 58.7 % 08/09/2014 COMPLETE BLOOD COUNT 9793499 LY % 21.5 % 08/09/2014 COMPLETE BLOOD COUNT 8729694 MON % 14.0 % 08/09/2014 COMPLETE BLOOD COUNT 1428609 EOS % 5.3 % 08/09/2014 COMPLETE BLOOD COUNT 6837896 BASO % 0.5 % 08/09/2014 COMPLETE BLOOD COUNT 9714941 RDW 13.1 % 08/09/2014 COMPLETE BLOOD COUNT 4102201 ABS SAM 3.46 10e9/L 08/09/2014 COMPLETE BLOOD COUNT 3294961 ABS LYMPH 1.27 10e9/L 08/09/2014 COMPLETE BLOOD COUNT [id number] ABS MONO 0.83 10e9/L 08/09/2014 COMPLETE BLOOD COUNT [id number] ABS EOS 0.31 10e9/L 08/09/2014 COMPLETE BLOOD COUNT [id number] ABS BASO 0.03 10e9/L 08/09/2014 COMPLETE BLOOD COUNT [id number] RDW-SD 41.2 fL 08/09/2014 THYROID STIMULATING HORMONE 80936 TSH 5.395 uIU/ML 5 LIPID GROUP [address] 52 MG/DL 08/09/2014 LIPID GROUP 14331 TRIG 113 MG/DL 08/09/2014 LIPID GROUP 04900 TEST L DL 158 MG/DL 08/09/2014 LIPID GROUP 04574 CHOL 233 MG/DL 08/09/2014 LIPID GROUP 74270 RCHOL/ HDL 4.48 RATIO 08/09/2014 LIPID GROUP 84946 NON-HD L CH 181 MG/DL 08/09/2014 COMPLETE BLOOD COUNT [id number] WBC 6.8 10e9/L 09/08/2013 COMPLETE BLOOD COUNT [id number] RBC 5.18 10e12/L 4 COMPLETE BLOOD COUNT 1697660 HGB 15.2 g/dL 09/08/2013 COMPLETE BLOOD COUNT [id number] HCT DET 44.7 % 09/08/2013 COMPLETE BLOOD COUNT [id number] MCV 86.3 fL 09/08/2013 COMPLETE BLOOD COUNT [id number] MCH 29.3 pg 09/08/2013 COMPLETE BLOOD COUNT 6427443 MCHC 34.0 g/dL 09/08/2013 COMPLETE BLOOD COUNT 2160903 PLT 236 10e9/L 09/08/2013 COMPLETE BLOOD COUNT 3432694 MPV 11.0 fL 09/08/2013 COMPLETE BLOOD COUNT 5740398 SAM % 58.2 % 09/08/2013 COMPLETE BLOOD COUNT 6342588 LY % 21.9 % 09/08/2013 COMPLETE BLOOD COUNT [id number] MON % 12.5 % 09/08/2013 COMPLETE BLOOD COUNT 1188187 EOS % 7.3 % 09/08/2013 COMPLETE BLOOD COUNT [id number] BASO % 0.1 % 09/08/2013 COMPLETE BLOOD COUNT 8308983 RDW 13.6 % 09/08/2013 COMPLETE BLOOD COUNT 8224806 ABS SAM 3.96 10e9/L 09/08/2013 COMPLETE BLOOD COUNT [id number] ABS LYMPH 1.49 10e9/L 09/08/2013 COMPLETE BLOOD COUNT 3361928 ABS MONO 0.85 10e9/L 09/08/2013 COMPLETE BLOOD COUNT [id number] ABS EOS 0.50 10e9/L 09/08/2013 COMPLETE BLOOD COUNT [id number] ABS BASO 0.01 10e9/L 09/08/2013 COMPLETE BLOOD COUNT [id number] RDW-SD 42.3 fL 09/08/2013 COMPREHENSIVE METABOLIC 22675 AST 27 U/L 09/08/2013 COMPREHENSIVE METABOLIC 04577 ALT 30 IU/L 09/08/2013 COMPREHENSIVE METABOLIC 03918 BUN 16 MG/DL 09/08/2013 COMPREHENSIVE METABOLIC 19082 ALBUMIN 4.9 GM/DL 09/08/2013 COMPREHENSIVE METABOLIC 03697 CHLORIDE 99 MMOL/L 09/08/2013 COMPREHENSIVE METABOLIC 97280 BILI TOT 0.7 MG/DL 09/08/2013 COMPREHENSIVE METABOLIC 98288 ALK PHOS 53 U/L 09/08/2013 COMPREHENSIVE METABOLIC 63668 SODIUM 137 MMOL/L 09/08/2013 COMPREHENSIVE METABOLIC 85713 CREATININE 1.01 MG/DL 09/08/2013 COMPREHENSIVE METABOLIC 91771 CALCIUM 10.0 MG/DL 09/08/2013 COMPREHENSIVE METABOLIC 71275 POTASSIUM 4.4 MMOL/L 09/08/2013 COMPREHENSIVE METABOLIC 41811 PROT TOT 7.1 GM/DL 09/08/2013 COMPREHENSIVE METABOLIC 43819 Glucose 148 MG/DL 09/08/2013 COMPREHENSIVE METABOLIC 04286 BICARB 30 MMOL/L 09/08/2013 COMPREHENSIVE METABOLIC 19693 ANION GAP 8 MEQ/L 09/08/2013 GFR CALC [id number] GFR AA >60 ML/MIN 09/08/2013 GFR CALC [id number] GFR NON -AA >60 ML/MIN 09/08/2013 FREE T4 36878 FREE T4 1.08 NG/DL 09/08/2013 GLYCOSYLATED HEMOGLOBIN TEST 96178 A1C HPLC 29471-4 7.3 % 09/08/2013 THYROID STIMULATING HORMONE 15963 TSH 5.454 uIU/ML 4 LIPID GROUP [address] 59 MG/DL 09/08/2013 LIPID GROUP 20031 TRIG 92 MG/DL 09/08/2013 LIPID GROUP 55443 TEST L DL 83 MG/DL 09/08/2013 LIPID GROUP 23477 CHOL 160 MG/DL 09/08/2013 LIPID GROUP 56772 RCHOL/ HDL 2.71 RATIO 09/08/2013 VITAMIN B 12 FOLIC ACID 28702|52549 VIT B 12 467 PG/ML 03/12/2013 VITAMIN B 12 FOLIC ACID 14518|27290 FOLIC ACID 12.2 NG/ML 03/12/2013 VITAMIN B 12 FOLIC ACID 05360|64589 VIT B 12 467 PG/ML 03/12/2013 THYROID STIMULATING HORMONE 23392 TSH 4.557 uIU/ML 3 HEMOGLOBIN A1C (GLYCOSYLATED) 7202435 A1C HPLC 68786-9 7.6 % 03/12/2013 VITAMIN D TOTAL (25 HYDROXY) 72488 VIT D TOTL 17 NG/ML 03/12/2013 FREE T4 07705 FREE T4 1.07 NG/DL 03/12/2013 URIC ACID 18941 URIC ACID 5.2 MG/DL 03/12/2013 Review of [...] nign 02/22/2019 None Full Exam - General Constitutional [...] inspection of skin Location: face 10/22/2017 left zoroastrianism, left lower jaw, left nasal bridge, right zoroastrianism, right middle cheek, right helix Full Exam [...] Procedure Codes Date THER/PROPH/DIAG INJ SC/IM CPT-4: 23794 02/22/2019 TRIAMCINOLONE ACET I [place] NOS CPT-4: J3301 02/22/2019 FLU VACC PRSV FREE I NC ANTIG 65 AND OLDER CPT-4: 87425 04/21/2018 ADMIN INFLUENZA VIRU S VAC CPT-4: G0008 04/21/2018 PRESCRIP TRANSMIT A ERX SY CPT-4: G8553 04/21/2018 DESTRUCT PREMALG LES ION (Cryosurgery) CPT-4: 43089 10/22/2017 FLU VACC PRSV FREE I NC ANTIG 65 AND OLDER CPT-4: 65428 04/22/2017 ADMIN INFLUENZA VIRU S VAC CPT-4: G0008 04/22/2017 PRESCRIP TRANSMIT A ERX SY CPT-4: G8553 10/10/2016 PRESCRIP TRANSMIT A ERX SY CPT-4: G8553 08/29/2015 ROUTINE VENIPUNCTURE CPT-4: 42146 07/26/2015 ASSAY OF FREE THYROXINE CPT-4: 64910 07/26/2015 ASSAY THYROID STIM H ORMONE CPT-4: 19549 07/26/2015 COMPREHEN METABOLIC PANEL CPT-4: 25083 07/26/2015 COMPLETE CBC W/AUTO DIFF WBC CPT-4: 94938 07/26/2015 LIPID PANEL CPT-4: 47609 07/26/2015 ASSAY OF PSA TOTAL CPT- 4: 78266 07/26/2015 A1C HPLC CPT-4: 97796 07/26/2015 ROUTINE VENIPUNCTURE CPT-4: 05738 01/17/2015 ASSAY OF FREE THYROXINE CPT-4: 14451 01/17/2015 ASSAY THYROID STIM H ORMONE CPT-4: 12666 01/17/2015 COMPREHEN METABOLIC PANEL CPT-4: 29692 01/17/2015 COMPLETE CBC W/AUTO DIFF WBC CPT-4: 88580 01/17/2015 A1C HPLC CPT-4: 83008 01/17/2015 VITAMIN B-12 CPT-4: 51239 01/17/2015 PPPS, subseq visit CPT- 4: G0439 08/04/2014 PRESCRIP TRANSMIT A ERX SY CPT-4: G8553 02/18/2014 FLUZONE, 5ML (Medicare) CPT-4: Q2038 07/22/2013 ADMIN INFLUENZA VIRU S VAC CPT-4: G0008 07/22/2013 PRESCRIP TRANSMIT A ERX SY CPT-4: G8553 04/28/2013 ROUTINE VENIPUNCTURE CPT-4: 99730 03/12/2013 VITAMIN D TOTAL (25 HYDROXY) CPT-4: 87756 03/12/2013 VITAMIN B 12 FOLIC ACID CPT-4: 43874|91454 03/12/2013 A1C GLYCOSYLATED HEM OGLOBIN TEST CPT-4: 36007 03/12/2013 ASSAY OF BLOOD/URIC ACID CPT-4: 27406 03/12/2013 ASSAY OF FREE THYROXINE CPT-4: 84869 03/12/2013 ASSAY THYROID STIM H ORMONE CPT-4: 65649 03/12/2013 CUR TOBACCO NON-USER CPT-4: G8457 03/11/2013 [...] 1: 156/70 Code: 8480-6 BMI: 35.0 Code: 34380-4 Heart Rate 1: 68 bpm Height: 5'10" Respiratory Rate: 20 bpm SpO2: 95% Temperature: 36.5 (C ) / 97.7 (F) Weight: 244 lbs 04/21/2018 Blood Pressure 1: 124/80 Code: 8480-6 BMI: 34.4 Code: 56178-4 Heart Rate 1: 80 bpm Height: 5'10" Respiratory Rate: 20 bpm SpO2: 96% Temperature: 37.0 (C ) / 98.6 (F) Weight: 240 lbs 01/06/2018 Blood Pressure 1: 138/82 Code: 8480-6 BMI: 33.9 Code: 34712-1 Heart Rate 1: 96 bpm Height: 5'10" Respiratory Rate: 24 bpm SpO2: 98% Temperature: 35.9 (C ) / 96.6 (F) Weight: 236 lbs 10/22/2017 Blood Pressure 1: 144/70 Code: 8480-6 BMI: 34.7 Code: 41092-9 Heart Rate 1: 72 bpm Height: 5'10" Respiratory Rate: 20 bpm SpO2: 96% Temperature: 36.9 (C ) / 98.4 (F) Weight: 242 lbs 04/22/2017 Blood Pressure 1: 146/82 Code: 8480-6 BMI: 32.9 Code: 78459-9 Heart Rate 1: 104 bpm Height: 5'10" Respiratory Rate: 20 bpm SpO2: 95% Temperature: 36.9 (C ) / 98.5 (F) Weight: 229 lbs 10/10/2016 Blood Pressure 1: 124/64 Code: 8480-6 BMI: 32.9 Code: 98950-6 Heart Rate 1: 64 bpm Height: 5'10" [...] 1: 146/90 Code: 8480-6 BMI: 34.1 Code: 70556-4 Heart Rate 1: 80 bpm Height: 5'10" Respiratory Rate: 20 bpm Temperature: 36.8 (C ) / 98.2 (F) Weight: 238 lbs 01/17/2015 Blood Pressure 1: 116/60 Code: 8480-6 BMI: 32.7 Code: 61704-8 Heart Rate 1: 84 bpm Height: 5'10" Respiratory Rate: 20 bpm Temperature: 36.7 (C ) / 98.0 (F) Weight: 228 lbs 09/29/2014 Blood Pressure 1: 136/78 Code: 8480-6 BMI: 33.9 Code: 74352-6 Heart Rate 1: 80 bpm Height: 5'10" Respiratory Rate: 20 bpm Temperature: 36.6 (C ) / 97.9 (F) Weight: 236 lbs 08/04/2014 Blood Pressure 1: 132/70 Code: 8480-6 BMI: 32.9 Code: 46290-7 Heart Rate 1: 72 bpm Height: 5'10" Respiratory Rate: 20 bpm Temperature: 36.7 (C ) / 98.0 (F) Weight: 229 lbs 02/18/2014 Blood Pressure 1: 124/82 Code: 8480-6 Heart Rate 1: 82 bpm Respiratory Rate: 18 bpm Temperature: 36.4 (C) / 97.5 (F) Weight: 232 lbs 07/29/2013 Blood Pressure 1: 146/80 Code: 8480-6 BMI: 34.1 Code: 83057-4 Heart Rate 1: 64 bpm Height: 5'10" Respiratory Rate: 20 bpm Temperature: 36.9 (C ) / 98.5 (F) Weight: 238 lbs 05/26/2013 Blood Pressure 1: 142/90 Code: 8480-6 BMI: 34.0 Code: 15352-5 Heart Rate 1: 84 bpm Height: 5'10" Respiratory Rate: 20 bpm Temperature: 36.7 (C ) / 98.0 (F) Weight: 237 lbs 04/28/2013 Blood Pressure 1: 118/78 Code: 8480-6 BMI: 32.9 Code: 88429-7 Heart Rate 1: 74 bpm Height: 5'10" Respiratory Rate: 20 bpm Temperature: 36.1 (C ) / 97.0 (F) Weight: 229 lbs 03/11/2013 Blood Pressure 1: 146/80 Code: 8480-6 BMI: 31.5 Code: 19289-7 Heart Rate 1: 80 bpm Height: 6' [...] both sides 11/25/2018 None Location in the coffee weigher ior area 11/25/2018 None Onset and Resolution o ngoing 11/25/2018 Patient is taking baclofe n at bedtime. 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 04/21/2018 None hyperlipidemia Quality c hronic [...] chr onic 04/22/2017 None hypertension Quality zain grisel hypertension 04/22/2017 None pain, limb Location on [...] chr onic 10/10/2016 None hypertension Quality zain grisel hypertension 10/10/2016 None hyperlipidemia Labs TOTA L [...] weeks ago 08/29/2015 None hyperglycemia Quality ac telida 07/24/2015 None knee pain Location on th [...] Encounters Encounter Performer Loca tion Codes Date ([id number]) OFFICE/OUTPA TIENT VISIT EST Diagnosis: Acute sinusitis, unspecified[ICD10: J01.90] Pennie ROSENBAUM Saber Hacer [facility] CPT-4: 66415 02/22/2019 ([id number]) OFFICE/OUTPA TIENT VISIT EST Diagnosis: Cervicalgia[ICD10: M54.2] Xiomara BETTENCOURT DO [facility] CPT-4: 31610 11/25/2018 ([id number]) OFFICE/OUTPA TIENT VISIT EST Diagnosis: Acute sinusitis, unspecified[ICD10: J01.90] Diagnosis: Myalgia, unspecified site[ICD10: M79.10] Diagnosis: Cervicalgia[ICD10: M54.2] Xiomara BETTENCOURT Saber Hacer [facility] CPT-4: 03886 11/19/2018 ([id number]) OFFICE/OUTPA TIENT VISIT EST Diagnosis: Low back pain[ICD10: M54.5] Diagnosis: Essential (primary) hypertension[ICD10: I10] Diagnosis: 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, 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] Diagnosis: Paroxysmal atrial fibrillation[ICD10: I48.0] Xiomara MAGALLON Saber Hacer [facility] CPT-4: 69570 07/22/2018 ([id number]) OFFICE/OUTPA TIENT VISIT EST Diagnosis: Type 2 diabetes mellitus with diabetic neuropathy, unspecified[ICD10: E11.40] Diagnosis: Hyperlipidemia, unspecified[ICD10: E78.5] Diagnosis: Essential (primary) hypertension[ICD10: I10] Diagnosis: Chronic kidney disease, stage 1[ICD10: N18.1] Diagnosis: Benign prostatic hyperplasia with lower urinary tract symptoms[ICD10: N40.1] Diagnosis: FLU VACCINE[ICD10: Z23] Xiomara BETTENCOURT S[facility] CPT-4: 96837 04/21/2018 OFFICE/OUTPATIENT SIT EST Diagnosis: Type 2 diabetes mellitus with hyperglycemia[ICD10: E11.65] Diagnosis: Essential (primary) hypertension[ICD10: I10] Diagnosis: Mixed hyperlipidemia[ICD10: E78.2] Diagnosis: Other fatigue[ICD10: R53.83] Pennie MCBRIDE Saber Hacer [facility] CPT-4: 15991 01/06/2018 ([id number]) OFFICE/OUTPA TIENT VISIT EST Diagnosis: Type 2 diabetes mellitus with diabetic neuropathy, unspecified[ICD10: E11.40] Diagnosis: Essential (primary) hypertension[ICD10: I10] Diagnosis: Pain in right thigh[ICD10: M79.651] Diagnosis: Pain in left leg[ICD10: M79.605] Diagnosis: Localized swelling, mass and lump, left lower limb[ICD10: R22.42] Diagnosis: OSTEOARTHRISIS MULTI SITES[ICD10: M19.90] Diagnosis: FLU VACCINE[ICD10: Z23] Xiomara Rut RENAEQUELINE Elvia MCBRIDE Saber Hacer [facility] CPT-4: 60706 04/22/2017 ([id number]) OFFICE/OUTPA TIENT VISIT EST Diagnosis: Essential (primary) hypertension[ICD10: I10] Diagnosis: Type 2 diabetes mellitus with hyperglycemia[ICD10: E11.65] Diagnosis: Angina pectoris, unspecified[ICD10: I20.9] Xiomara Bettencourt XIOMARA Elvia [facility] Saber Hacer [facility] CPT-4: 96980 10/10/2016 ([id number]) OFFICE/OUTPA TIENT VISIT EST Diagnosis: Cough[ICD10: R05] Diagnosis: Wheezing[ICD10: R06.2] Diagnosis: Chronic obstructive pulmonary disease, unspecified[ICD10: J44.9] Shannan LARA DelphineEdvin REED Saber Hacer [facility] CPT-4: 58301 08/31/2015 OFFICE/OUTPATIENT SIT EST Diagnosis: Acute bronchitis, unspecified[ICD10: J20.9] Diagnosis: Wheezing[ICD10: R06.2] Kelsie RENAEQUELINE DelphineEdvin REED Saber Hacer [facility] CPT-4: 56444 08/29/2015 ([id number]) OFFICE/OUTPA TIENT VISIT EST Diagnosis: Type 2 diabetes mellitus with diabetic neuropathy, unspecified[ICD10: E11.40] Diagnosis: Hyperlipidemia, unspecified[ICD10: E78.5] Diagnosis: Essential (primary) hypertension[ICD10: I10] Diagnosis: Encounter for general adult medical examination without abnormal findings[ICD10: Z00.00] Xiomara BETTENCOURT [facility] CPT-4: 90334 07/26/2015 OFFICE/OUTPATIENT SIT EST Diagnosis: Type 2 diabetes mellitus with hyperglycemia[ICD10: E11.65] Diagnosis: Unspecified osteoarthritis, unspecified site[ICD10: M19.90] Diagnosis: Other instability, right knee[ICD10: M25.361] Kelsie MILLER DO [facility] CPT-4: 06610 07/24/2015 ([id number]) OFFICE/OUTPA TIENT VISIT EST Diagnosis: Pain in leg, unspecified[ICD10: M79.606] Diagnosis: Type 2 diabetes mellitus with diabetic neuropathy, unspecified[ICD10: E11.40] Xiomara BETTENCOURT [facility] CPT-4: 35219 05/01/2015 ([id number]) OFFICE/OUTPA TIENT VISIT EST Diagnosis: MALAISE AND FATIGUE[ICD9: 780.79] Diagnosis: 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, 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] Diagnosis: CAD[ICD9: 414.00] Diagnosis: ANEMIA NOS[ICD9: 285.9] Xiomara BETTENCOURT [facility] CPT-4: 20580 01/17/2015 ([id number]) OFFICE/OUTPA TIENT VISIT EST Diagnosis: Skin lesion[ICD9: 709.9] Xiomara BETTENCOURT [facility] CPT-4: 71561 09/29/2014 OFFICE/OUTPATIENT SIT EST Diagnosis: GASTROENTERITIS[ICD9: 558.9] Diagnosis: GERD[ICD9: 530.81] Kelsie BETTENCOURT DO [facility] CPT-4: 43613 02/18/2014 ([id number]) OFFICE/OUTPA TIENT VISIT EST Diagnosis: 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I, UNCONTROLLED[ICD9: 250.02] Xiomara MAGALLON Saber Hacer [facility] CPT-4: 59943 07/29/2013 ([id number]) OFFICE/OUTPA TIENT VISIT EST Diagnosis: FLU VACCINE[ICD9: V04.81] Xiomara MCBRIDE Saber Hacer [facility] CPT-4: 54991 07/22/2013 ([id number]) OFFICE/OUTPA TIENT VISIT EST Diagnosis: 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I, UNCONTROLLED[ICD9: 250.02] Diagnosis: HYPERTENSION[ICD9: 401.9] Xiomara MCBRIDE Saber Hacer [facility] CPT-4: 81352 05/26/2013 ([id number]) OFFICE/OUTPA TIENT VISIT EST Diagnosis: MONONEURITIS[ICD9: 355.9] Diagnosis: RESTLESS LEGS SYNDROME[ICD9: 333.94] Diagnosis: HYPERTENSION[ICD9: 401.9] Diagnosis: CAD[ICD9: 414.00] Diagnosis: Weakness[ICD9: 780.79] Xiomara MCBRIDE Saber Hacer [facility] CPT-4: 20346 04/28/2013 ([id number]) OFFICE/OUTPA TIENT VISIT EST Diagnosis: 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[ICD9: 250.01] Diagnosis: MONONEURITIS[ICD9: 355.9] Diagnosis: HYPERLIPIDEMIA NEC/NOS[ICD9: 272.4] Diagnosis: CAD[ICD9: 414.00] Xiomara [employer] Saber Hacer [facility] CPT-4: 36940 03/12/2013 OFFICE/OUTPATIENT SIT NEW Diagnosis: CAD[ICD9: 414.00] Diagnosis: HYPERLIPIDEMIA NEC/NOS[ICD9: 272.4] Diagnosis: HYPERTENSION[ICD9: 401.9] Diagnosis: Neuropathy[ICD9: 355.9] Diagnosis: RESTLESS LEGS SYNDROME[ICD9: 333.94] Xiomara BROWN Saber Hacer [facility] CPT-4: 61014 03/11/2013 Plan of Care Planned Activity Notes [...] ICD-10 : J01.90 02/22/2019 Appointment: Pennie Pizarro Parvez [address] [place], [place] [id number] 02/22/2019 Patient Education: prednisone- OptimizeRX Coupon [phone] [email or web address] Completed 02/22/2019 Visit Diagnosis Plan: Cervicalgia Di scussion: Check Cervical Spine X-ray Will likely need PT ICD-9 : 723.1 ICD-10 : M54.2 11/25/2018 Appointment: Xiomara Bettencourt WPtel: [facility] [address] ACUTE ILLNESS 11/25/2018 Visit Plan: Saline [...] nasal flushes prn. Tyle... 11/19/2018 Appointment: Xiomara Betetncourt WPtel: [phone] ACUTE ILLNESS 11/19/2018 Patient Education: baclofen- [employer] Coupon [phone] [email or web address]/resources/getResource/[email or web address] Completed 11/19/2018 Visit Diagnosis Plan: Paroxysmal atrial [...] I10 07/22/2018 Appointment: Xiomara Bettencourt WPtel: [phone] [facility] [place] FOLLOW UP 07/22/2018 Visit Diagnosis Plan: Hyperlipidemia, [...] Trial of flomax Call in 1 mo [facility] on how doing Follow Up: 4 months ICD-9 : 600.21 ICD-10 : N40.1 04/21/2018 Appointment: Xiomara Bettencourt WPtel: [phone] [facility] [place] FOLLOW UP 04/21/2018 Patient Education: Patient [...] ICD-10 : E78.2 01/06/2018 Appointment: Pennie Pizarro [address] [place] [address] MEDICATION REVIEW 01/06/2018 Patient Education: Patient Medication Summary Completed 01/06/2018 Appointment: Xiomara Bettencourt WPtel: [address] [place] [address] NO SHOW 01/05/2018 Appointment: Xiomara Bettencourt WPtel: [address] [place] [address] [place] CANCELED 12/31/2017 Visit Diagnosis Plan: Actinic keratosis Discussion: Cryotherapy as above but will see derm if lesions do not resolve ICD-9 : 702.0 ICD-10 : L57.0 10/22/2017 Appointment: Xiomara Bettencourt WPtel: [address] [place] [address] ACUTE ILLNESS 10/22/2017 Patient Education: Patient Medication Summary Completed 10/22/2017 Visit Diagnosis Plan: Type 2 diabetes me llitus with diabetic neuropathy, unspecified Discussion: Lab discussed Continue curre meds Asked to bring in updated med [...] M79.605 04/22/2017 Appointment: Xiomara Bettencourt [facility]Ptel: [phone] [facility] [facility] 04/22/2017 Patient Education: Patient Medication Summary Completed 04/22/2017 Patient Education: Patient Medication Summary Completed 04/16/2017 Care Plan: COMPREHEN METABOLIC PANEL LOINC : 78591-7 Pending 04/16/2017 Care Plan: LIPID PANEL LOINC : 66821-2 Pending 04/16/2017 Care Plan: CBC Pending 04/16/2017 Care Plan: A1C HPLC LO INC : 96015-5 Pending 04/16/2017 Referral: Inocencio Goodson WPtel: [phone] [facility] [id number] [place] Referral Appointment Confirmed 10/14/2016 Visit Diagnosis Plan: Type 2 diabetes me llitus with hyperglycemia Discussion: Continue touanneo Accharshals B ID Follow Up: 4 months ICD-9 : 250.02 ICD-10 : E11.65 10/10/2016 Visit Diagnosis Plan: Angina pectoris, unspecified Discussion: Continue imdur and see cardiology To ER if chest pain returns ICD-9 : 413.9 ICD-10 : I20.9 10/10/2016 Appointment: Xiomara Bettencourt WPtel: [phone] [facility] FOLLOW [facility] 10/10/2016 Patient Education: Patient Medication Summary Completed 10/10/2016 Patient Education: Patient Medication Summary Completed 09/16/2016 Care Plan: COMPREHEN METABOLIC PANEL LOINC : 51693-3 Pending 09/16/2016 Care Plan: ASSAY THYROID STIM HORMONE Pending 09/16/2016 Care Plan: ASSAY OF FREE THYROXINE Pending 09/16/2016 Care Plan: LIPID PANEL LOINC : 52924-1 Pending 09/16/2016 Care Plan: CBC Pending 09/16/2016 Care Plan: A1C HPLC LO INC : 57471-3 Pending 09/16/2016 Visit Plan: CXR now to further eval uate symptoms Suspect viral since he has been on 2 rounds of antibiotics If chronic lung disease evident, will consider keeping on symbicort long term care phlebotomist Sample inhaler given today with instructions on [...] disease evident, will consider keeping on symbicort retirement Sample inhaler given today with instructions on [...] disease evident, will consider keeping on symbicort retirement Sample inhaler given today with instructions on use Continue oral prednisone, would like to avoid injection if possible considering his DM status and he is stable right now Continue albuterol PRN Will call with CXR results 08/31/2015 Appointment: [facility]an [facility] [facility] 08/31 confirmed- SP ACUTE ILLNESS 08/31/2015 Patient Education: Patient Medication Summary Completed 08/31/2015 Visit Plan: Albuterol INH via SVN e very 4 hours Prednisone 20 mg PO BID Notify for worsening symptoms 08/29/2015 Visit Plan: Albuterol INH via SVN e very 4 hours Prednisone 20 mg PO BID Notify for worsening symptoms 08/29/2015 Appointment: Kelsie Grubbs WPtel: [address] [place], [place] [phone] AC[facility] 08/29/2015 Patient Education: Patient Medication Summary Completed 08/29/2015 Appointment: Xiomara Bettencourt WPtel: [address] [place], [place] [phone] LAB 07/26/2015 Patient Education: Patient Medication [...] bilaterally. 07/24/2015 Appointment: Kelsie Grubbs WPtel: [address] [place], [place] [phone] 07/21 appt confirmed cn FOLLOW UP 07/24/2015 Appointment: Kelsie Grubbs WPtel: [address] [place], [place] [phone] FOLLOW UP 07/24/2015 Patient Education: Patient Medication [...] with insulin 05/01/2015 Appointment: Xiomara Bettencourt WPtel: [address] [place], [place] [phone] 04/28 confirmed~sl ACUTE ILLNESS 05/01/2015 Patient Education: Patient Medication Summary Completed 05/01/2015 Patient Education: Patient Medication Summary Completed 01/19/2015 Care Plan: URINALYSIS AUTO W/O SCOPE LOINC : 71489-9 Pending 01/19/2015 Visit Plan: I have went through his medications in past and stopped meds but he adjusts his meds on his own and has restarted some Stop Amaryl Once again discussed not using indomethacin routinely due to taking leticia vix and aspirin daily and detention use is dangerous Check CBC, CMP, TSH, [...] taking leticia vix and aspirin daily and detention use is dangerous Check CBC, CMP, TSH, free T4, B12 and HbA1C Patient has seen Cardiology recently but no cardiac cath done--had chemical stress test 01/17/2015 Appointment: Xiomara Bettencourt WPtel: [phone] [place] [address] 01/16 vm cn ACUTE ILLNESS 01/17/2015 Patient Education: Patient Medication Summary Completed 01/17/2015 Visit Plan: See Dr. Garvin for remov al 09/29/2014 Appointment: Xiomara Bettencourt WPtel: [phone] ACUTE ILLNESS 09/29/2014 Referral: Colt Garvin WPtel: [address] Referral Initiated 09/29/2014 Patient Education: Patient Medication Summary Completed 09/29/2014 Visit Plan: Check CBC, CMP, TSH, fr ee T4, HbA1C, Lipids Accuchecks daily alternating times Patient has been adjusting own meds and has not taken any cholesterol meds for sometime Will check into surgery on right knee at [place] Check carotid dopplers 08/04/2014 Appointment: Xiomara Bettencourt WPtel: [address] [place], [place] [phone] Annual Well Visit 08/04/2014 Patient Education: Patient Medication Summary Completed 08/04/2014 Visit Plan: Stop Omeprazole 20 mg a nd start Zegerid 40mg PO daily x 14 days then resume previous dose of Omeprazole. May take Zofran 8 mg SL as needed every 8 hours for nausea [place] diet 02/18/2014 Appointment: Kelsie Grubbs WPtel: [address] [place], [place] [phone] ACUTE ILLNESS 02/18/2014 Patient Education: Patient Medication Summary Completed 02/18/2014 Patient Education: [facility] - Saving AutoInj - 18+ - Dynamic Portal ID Completed 02/18/2014 Appointment: Xiomara Bettencourt WPtel: [address] [place], [place] [phone] 09/08/2013 Visit Plan: Check fasting lab in 1m o Continue Lantus and accuchecks at least BID 07/29/2013 Appointment: Xiomara Bettencourt WPtel: [address] [place] [address] FOLLOW UP 07/29/2013 Patient Education: Patient Medication Summary Completed 07/29/2013 Appointment: Xiomara Bettencourt WPtel: [address] [place], [place] [phone] INJECTION 07/22/2013 Patient Education: Patient Medication Summary Completed 07/22/2013 Visit Plan: Pt has been self-adjust ing meds Stop metformin and amaryl Use Levemir 25u sc BID and call in 1wk with BS readings 05/26/2013 Appointment: Xiomara Bettencourt WPtel: [address] [place] [address] FOLLOW UP 05/26/2013 Patient Education: Patient Medication Summary Completed 05/26/2013 Visit Plan: DC Metformin Increase L antus to 30u sc daily Change lisinopril to lisinopril HCT 20/25mg q AM Continue Gabapentin at current dose 04/28/2013 Appointment: Xiomara Bettencourt WPtel: [phone] [facility] FO[facility] 04/28/2013 Patient Education: Patient Medication Summary Completed 04/28/2013 Appointment: Xiomara Bettencourt WPtel: [phone] [facility] [place] LAB 03/12/2013 Patient Education: Patient Medication Summary Completed 03/12/2013 Visit Plan: Trial of neurontin 400m g q HS Obtain most recent lab results Change levemir to lantus per pt request Pt goes for sleep study tonite 03/11/2013 Appointment: Xiomara Bettencourt WPtel: [phone] [facility] 02/01paperwork mailed 03/10 confirmed with spouse NEW PATIENT 03/11/2013 Patient Education: Patient Medication Summary Completed 03/11/2013 Instructions Comment . Saline nasal flush es prn. Tylenol/Motrin prn headache. Notify if persists/symptoms worsening. . CXR now to further evaluate symptoms Suspect viral since he has been on 2 rounds of antibiotics If chronic lung disease evident, will consider keeping on symbicort retirement Sample inhaler given today with instructions on [...] disease evident, will consider keeping on symbicort retirement Sample inhaler given today with instructions on [...] disease evident, will consider keeping on symbicort retirement Sample inhaler given today with instructions on [...] to taking plavix and aspirin daily and detention use is dangerous Check CBC, CMP, TSH, [...] to taking plavix and aspirin daily and detention use is dangerous Check CBC, CMP, TSH, [...] check into surgery on right knee at [place] Check carotid dopplers Has previously compl eted [...] as needed every 8 hours for nausea [place] diet . Check fasting lab in 1mo Continue Lantus and accuchecks at least BID
--- OUTSIDE RECORDS SUMMARY | 2020-02-02 21:52 | XMS REPORT | CCD ---
Author Author Sheng Bettencourt D.O. Organization [facility] Address [address] [place] [address] Phone Care Team Providers Care Manager Maritime Name Role Phone PP Unavailable CCM Unavailable Summary Purpose Interface Exchange Insurance Providers Payer name Policy type / Coverage type Covered libertarian ID Effective Begin Date Effective End Date WPS MEDICARE PART B [place] Medicare Part B [id number] 2018 Unknown [facility] Medicare Part B [id number] Unknown Family history Mother Diagnosis Age At Onset Diabetes mellitus Type 2 Unknown Hypercholesterolemia Unknown Father Diagnosis Age At Onset No Family Disease Entered N/A Social History Social History Element Codes Description Effective Dates Marital status Unknown M arried 03/11/2013 Number of children Unknown 4 03/11/2013 Employment Unknown Retir ed 03/11/[address]: 8332852 Former smoker 03/11/[address]: 412043 Currently drinks alcohol Socially 03/11/2013 Has the [...] Instructions Augmentin 500 mg-125 mg tablet RxNorm: 241318 1 Tablet(s) PO BID 02/22/2019 03/03/2019 Active baclofen 10 mg tablet RxNorm: 578705 TAKE ONE TABLET BY MOUTH EVERY NIGHT AT BEDTIME FOR PAIN OR SPASMS 01/14/2019 03/14/2019 Active Flomax 0.4 mg capsule RxNorm: 146242 TAKE TWO CAPSULES BY MOUTH EVERY EVENING 01/12/2019 07/10/2019 Ac tive gabapentin 400 mg ca psule RxNorm: 134826 1 Capsule(s) PO QPM 12/30/2018 06/27/2019 Active baclofen 10 mg tablet RxNorm: 782074 1 Tablet(s) PO QHS for pain/spasm 12/15/2018 01/13/2019 In active simvastatin 20 mg ta blet RxNorm: 553798 TAKE ONE TABLET BY MO UTH DAILY 12/11/2018 06/08/2019 Ac tive OneTouch Ultra Blue Test Strip RxNorm: Use 1 test strip three time s daily to check blood sugar (Dx:E11.65) 12/07/2018 No Stop Date Active gabapentin 400 mg ca psule RxNorm: 136781 TAKE ONE CAPSULE BY M OUTH EVERY EVENING 12/04/2018 12/29/2018 In active baclofen 10 mg tablet RxNorm: 605182 1 Tablet(s) PO QHS for pain/spasm 11/19/2018 12/15/2018 In active Flomax 0.4 mg capsule RxNorm: 667259 2 Capsule(s) PO QPM 09/15/2018 12/13/2018 Inactive WOULD LIKE 90DS!!! gabapentin 400 mg ca psule RxNorm: 242822 TAKE ONE CAPSULE BY M OUTH EVERY EVENING 07/21/2018 10/18/2018 In active simvastatin 20 mg ta blet RxNorm: 724344 1 Tablet(s) PO QD 06/15/2018 12/10/2018 Inactive Flomax 0.4 mg capsule RxNorm: 297359 TAKE TWO CAPSULES BY MOUTH EVERY EVENING 06/02/2018 09/15/2018 In active WOULD LIKE 90DS!!! Flomax 0.4 mg capsule RxNorm: 404937 2 Capsule(s) PO QPM 04/21/2018 05/20/2018 Inactive simvastatin 20 mg ta blet RxNorm: 511168 1 Tablet(s) PO QD Anil e 1 tablet by mouth daily. Patient due for labwork before further refill. 04/06/2018 04/12/2018 Inactive simvastatin 20 mg ta blet RxNorm: 071793 Tablet(s) TAKE ONE TA BLET BY MOUTH DAILY 03/25/2018 06/15/2018 In active simvastatin 20 mg ta blet RxNorm: 047578 Tablet(s) TAKE ONE TA BLET BY MOUTH DAILY due for appt 12/29/2017 03/25/2018 Inactive simvastatin 20 mg ta blet RxNorm: 153903 TAKE ONE TABLET BY MO UTH DAILY 09/03/2017 12/29/2017 In active simvastatin 20 mg ta blet RxNorm: 326371 1 Tablet(s) PO QD 10/22/2016 11/18/2018 Inactive isosorbide mononitra te ER 60 mg tablet,extended release 24 hr RxNorm: 628039 1 Tablet(s) PO QD 10/22/2016 04/21/2017 Inactive isosorbide mononitra te ER 60 mg tablet,extended release 24 hr RxNorm: 637456 1 Tablet(s) PO QD 10/10/2016 10/21/2016 Inactive simvastatin 20 mg ta blet RxNorm: 099800 1 Tablet(s) PO QD 10/10/2016 10/21/2016 Inactive gabapentin 400 mg ca psule RxNorm: 661291 1 Capsule(s) PO QPM 07/23/2016 09/20/2016 Inactive Tomariel SoloStar 300 unit/mL (1.5 mL) subcutaneous insulin pen RxNorm: 9230311 35 Unit(s) SQ QAM 07/23/2016 07/22/2016 Inactive Tamia SoloStar 300 unit/mL (1.5 mL) subcutaneous insulin pen RxNorm: 9901473 40 Unit(s) SQ QAM 09/01/2015 No Stop Date Active Symbicort 160 mcg-4. 5 mcg/actuation HFA aerosol inhaler RxNorm: 4257029 2 Puff(s) INH BID 08/31/2015 09/09/2015 Inactive prednisone 20 mg tablet RxNorm: 657495 1 Tablet(s) PO BID 08/29/2015 09/02/2015 Inactive albuterol sulfate 2. 5 mg/3 mL (0.083 %) solution for nebulization RxNorm: 641877 1 Unit(s) INH Q4H as needed 08/29/2015 10/09/2016 Inactive levothyroxine 75 mcg tablet RxNorm: 210286 1 Tablet(s) PO QD 07/28/2015 07/27/2015 Inactive levothyroxine 75 mcg tablet RxNorm: 987228 1 Tablet(s) PO QD 07/28/2015 11/18/2018 Inactive levothyroxine 75 mcg tablet RxNorm: 602632 1 Tablet(s) PO QD 07/28/2015 07/27/2015 Inactive lisinopril 20 mg-hyd rochlorothiazide 25 mg tablet RxNorm: 702442 TAKE ONE TABLET BY MOUTH EVERY MORNING. REPLACES PLAIN LISINOPRIL 03/06/2015 04/21/2017 Inactive lisinopril 20 mg-hyd rochlorothiazide 25 mg tablet RxNorm: 139776 TAKE ONE TABLET BY MOUTH EVERY MORNING. REPLACES PLAIN LISINOPRIL 09/08/2014 03/05/2015 Inactive allopurinol 100 mg t ablet RxNorm: 336419 1 Tablet(s) PO BID 08/11/2014 10/09/2016 Inactive [SAVINGS FOR NON-COVERED DRUGS -- BIN:00 0568, PCN: [id number], Group: [id number], ID# [id number], Questions: . THIS IS NOT INSURANCE.] levothyroxine 50 mcg tablet RxNorm: 380867 1 Tablet(s) PO QD 08/11/2014 07/26/2015 Inactive [AttnRPh: Saving apply/adjudicate RxGRP: SG20 RxBIN:[id number] RxPCN:HT ID#:[id number]] Zegerid 40 mg-1.1 gr am capsule RxNorm: 188328 1 Capsule(s) PO QD 02/18/2014 03/03/2014 Inactive [AttnRPh: Saving apply/adjudicate RxGRP: SG20 RxBIN:[id number] RxPCN:HT ID#:[id number]] ondansetron 8 mg dis integrating tablet RxNorm: 585332 1 Tablet(s) PO Q8H as needed for nausea 02/18/2014 08/03/2014 Inactive lisinopril 20 mg-hyd rochlorothiazide 25 mg tablet RxNorm: 006440 1 Tablet(s) PO QAM replaces plain lisinopril 08/23/2013 02/18/2014 Inactive lisinopril 20 mg-hyd rochlorothiazide 25 mg tablet RxNorm: 178820 1 Tablet(s) PO QAM replaces plain lisinopril 08/05/2013 08/22/2013 Inactive lisinopril 20 mg-hyd rochlorothiazide 25 mg tablet RxNorm: 631469 1 Tablet(s) PO QAM replaces plain lisinopril 07/29/2013 08/04/2013 Inactive lisinopril 20 mg-hyd rochlorothiazide 25 mg tablet RxNorm: 349441 1 Tablet(s) PO QAM replaces plain lisinopril 07/26/2013 07/28/2013 Inactive gabapentin 400 mg ca psule RxNorm: 499339 1 Capsule(s) PO QPM 07/01/2013 07/28/2013 Inactive gabapentin 400 mg ca psule RxNorm: 499570 1 Capsule(s) PO QPM 04/28/2013 06/26/2013 Inactive lisinopril 20 mg-hyd rochlorothiazide 25 mg tablet RxNorm: 571663 1 Tablet(s) PO QAM replaces plain lisinopril 04/28/2013 07/29/2013 Inactive gabapentin 400 mg ca psule RxNorm: 721827 1 Capsule(s) PO QPM 03/15/2013 04/27/2013 Inactive gabapentin 400 mg ca psule RxNorm: 931837 1 Capsule(s) PO QPM 03/11/2013 03/10/2013 Inactive gabapentin 400 mg ca psule RxNorm: 276273 1 Capsule(s) PO QPM 03/11/2013 03/14/2013 Inactive Lantus Solostar 100 unit/mL (3 mL) Sub-Q Insulin Pen RxNorm: 745375 20 Unit(s) SQ QPM 03/11/2013 03/15/2013 Inactive Toujeo SoloStar 300 unit/mL (1.5 mL) subcutaneous insulin pen RxNorm: 4757715 35 Unit(s) SQ QAM No Start Date Active omeprazole 20 mg cap roman,delayed release RxNorm: 362855 1 Capsule(s) PO QD No Start Date Active isosorbide mononitra te ER 60 mg tablet,extended release 24 hr RxNorm: 935817 1 Tablet(s) PO QD No Start Date Active lisinopril 20 mg tablet RxNorm: 365516 1 Tablet(s) PO QD No Start Date Active Chlortab-4 oral RxNorm: 907174 oral No Start Date Active Eliquis 5 mg tablet RxNorm: 7123796 1 Tablet(s) PO BID No Start Date Active oxymetazoline-mentho l 0.05 % nasal spray RxNorm: 6075639 [place] NASAL No Start Date Active Patient states he takes every 10 hours metformin 500 mg tablet RxNorm: 623709 1 Tablet(s) PO BID No Start Date Active levothyroxine 50 mcg tablet RxNorm: 788102 1 Tablet(s) PO QD No Start Date Active Plavix 75 mg tablet RxNorm: 684514 1 Tablet(s) PO QD No Start Date Active Norvasc 10 mg tablet RxNorm: 208522 1 Tablet(s) PO QHS No Start Date Active Zantac 150 mg tablet RxNorm: 225237 1 Tablet(s) PO QHS No Start Date Active Toujeo SoloStar 300 unit/mL (1.5 mL) subcutaneous insulin pen RxNorm: 1002716 30 Unit(s) SQ QAM No Start Date Active glimepiride 4 mg tablet RxNorm: 557524 1 Tablet(s) PO QHS No Start Date 07/26/2015 Inactive allopurinol 100 mg t ablet RxNorm: 684519 1 Tablet(s) PO BID No Start Date 08/10/2014 Inactive Lantus Solostar 100 unit/mL (3 mL) subcutaneous insulin pen RxNorm: 803031 30 Unit(s) SQ QD No Start Date 08/03/2014 Inactive Levemir FlexTouch 10 0 unit/mL (3 mL) subcutaneous insulin pen RxNorm: 729552 25 Unit(s) SQ QAM No Start Date 07/23/2015 Inactive Lantus 100 unit/mL S ub-Q RxNorm: 516167 30 Unit(s) SQ QHS No Start Date 05/25/2013 Inactive Lantus Solostar 100 unit/mL (3 mL) Sub-Q Insulin Pen RxNorm: 131644 20 Unit(s) SQ QPM No Start Date 03/10/2013 Inactive OneTouch Ultra Blue Test Strip RxNorm: Use 1 test strip three time s daily to check blood sugar (Dx:E11.65) No Start Date 12/06/2018 Inactive Levemir FlexTouch 10 0 unit/mL (3 mL) subcutaneous insulin pen RxNorm: 526979 30-35 Unit(s) SQ QAM No Start Date 07/23/2015 Inactive Levemir Flexpen 100 unit/mL (3 mL) solution subcutaneous insulin pen RxNorm: 981246 20-25 Unit(s) SQ QD No Start Date 07/28/2013 Inactive indomethacin ER 75 m g capsule,extended release RxNorm: 158863 1 Capsule(s) PO QAM No Start Date 04/27/2013 Inactive indomethacin ER 75 m g capsule,extended release RxNorm: 641869 1 Capsule(s) PO QD No Start Date 01/16/2015 Inactive Vitamin D3 5,000 uni t tablet RxNorm: 087454 1 Tablet(s) PO QD No Start Date 08/03/2014 Inactive Levemir Flexpen 100 unit/mL (3 mL) solution subcutaneous insulin Pen RxNorm: 750825 20 Unit(s) SQ QHS No Start Date 03/10/2013 Inactive Vytorin 10 mg-40 mg tablet RxNorm: 9278973 1/2 Tablet(s) PO QD No Start Date 04/20/2018 Inactive Toujeo SoloStar 300 unit/mL (1.5 mL) subcutaneous insulin pen RxNorm: 8558327 35 Unit(s) SQ QAM No Start Date 07/22/2016 Inactive Lantus Solostar 100 unit/mL (3 mL) subcutaneous insulin pen RxNorm: 062507 20 Unit(s) SQ QD No Start Date 08/03/2014 Inactive aspirin 81 mg tablet RxNorm: 300217 1 Tablet(s) PO QD No Start Date 08/03/2014 Inactive metformin 500 mg tablet RxNorm: 578533 1 Tablet(s) PO BID No Start Date 07/28/2013 Inactive glimepiride 4 mg tablet RxNorm: 060248 1 Tablet(s) PO BID No Start Date 01/16/2015 Inactive glimepiride 4 mg tablet RxNorm: 664120 1 Tablet(s) PO QD No Start Date 08/03/2014 Inactive levothyroxine 25 mcg tablet RxNorm: 025514 1 Tablet(s) PO QD No Start Date 08/10/2014 Inactive aspirin 81 mg tablet RxNorm: 711577 1 Tablet(s) PO QD No Start Date 07/21/2018 Inactive isosorbide mononitra te ER 60 mg tablet,extended release 24 hr RxNorm: 417693 1 Tablet(s) PO BID No Start Date 01/16/2015 Inactive metformin 500 mg tablet RxNorm: 334339 1 Tablet(s) PO BID No Start Date 04/27/2013 Inactive glimepiride 4 mg tablet RxNorm: 718008 1 Tablet(s) PO QPM No Start Date 02/21/2019 Inactive Vytorin 10-40 10 mg- 40 mg tablet RxNorm: 3342228 1 Tablet(s) PO QHS No Start Date 08/03/2014 Inactive indomethacin 50 mg c apsule RxNorm: 936588 1 Capsule(s) PO QHS No Start Date 01/16/2015 Inactive glimepiride 4 mg tablet RxNorm: 168635 1 Tablet(s) PO BID No Start Date 07/28/2013 Inactive Levemir FlexTouch 10 0 unit/mL (3 mL) subcutaneous insulin pen RxNorm: 380804 20 Unit(s) SQ QD No Start Date 04/30/2015 Inactive lisinopril 20 mg tablet RxNorm: 613632 1 Tablet(s) PO BID No Start Date 04/27/2013 Inactive Lantus Solostar SubQ RxNorm: Subcutaneous No Start Date 03/15/2013 Inactive allopurinol 300 mg t ablet RxNorm: 211509 1 Tablet(s) PO QD No Start Date 08/03/2014 Inactive Fish Oil 1,000 mg ca psule RxNorm: 1 Capsule(s) PO QD No Start Date 02/21/2019 Inactive indomethacin 50 mg c apsule RxNorm: 700963 1 Capsule(s) PO BID No Start Date 04/20/2018 Inactive levothyroxine 50 mcg tablet RxNorm: 709428 1 Tablet(s) PO QD No Start Date 08/10/2014 Inactive glimepiride 4 mg tablet RxNorm: 850221 1 Tablet(s) PO BID No Start Date 03/15/2013 Inactive indomethacin 50 mg c apsule RxNorm: 197856 1 Capsule(s) PO QHS No Start Date [...] Item Item Code Result Date [facility] 35918 Choles terol 209 mg/dL 09/17/2016 [facility] 72968 Trigly ceride 111 mg/dL 09/17/2016 [facility] 34523 HDL CH OLESTEROL 50 mg/dL 09/17/2016 [facility] 22913 Chol/H DL Ratio 4.18 ratio 09/17/2016 [facility] 47736 NON-HD L Chol 159 mg/dL 09/17/2016 [facility] GROUP 38076 LDL Ch olesterol 137 mg/dL 09/17/2016 MEAN GLUC 8815879 Calc M ina Gluc 151 mg/dL 09/17/2016 COMPREHENSIVE METABOLIC 57945 AST 23 U/L 09/17/2016 COMPREHENSIVE METABOLIC 88942 ALT 19 U/L 09/17/2016 COMPREHENSIVE METABOLIC 53316 BUN 15 mg/dL 09/17/2016 COMPREHENSIVE METABOLIC 33427 ALBUMIN 4.3 g/dL 09/17/2016 COMPREHENSIVE METABOLIC 59378 CHLORIDE 103 mmol/L 09/17/2016 COMPREHENSIVE METABOLIC 96544 Bili Total 0.6 mg/dL 09/17/2016 COMPREHENSIVE METABOLIC 66638 ALK PHOS 60 U/L 09/17/2016 COMPREHENSIVE METABOLIC 37098 SODIUM 140 mmol/L 09/17/2016 COMPREHENSIVE METABOLIC 42983 CREATININE 1.03 mg/dL 09/17/2016 COMPREHENSIVE METABOLIC 89675 CALCIUM 9.5 mg/dL 09/17/2016 COMPREHENSIVE METABOLIC 65153 POTASSIUM 3.9 mmol/L 09/17/2016 COMPREHENSIVE METABOLIC 59420 Total Protein 6.9 g/dL 09/17/2016 COMPREHENSIVE METABOLIC 74694 Glucose 94 mg/dL 09/17/2016 COMPREHENSIVE METABOLIC 24844 Bicarbonate 28 mmol/L 09/17/2016 COMPREHENSIVE METABOLIC 14633 AGAP 9 mmol/L 09/17/2016 GFR CALC 1123480 GFR Non Afr Amr >60 mL/min 09/17/2016 GFR CALC 5011138 GFR Afr Amr >60 mL/min 09/17/2016 THYROID STIMULATING HORMONE 67694 TSH 4.260 uIU/mL 09/17/201 7 GLYCOSYLATED HEMOGLOBIN TEST 47748 Hgb A1c 63745-6 6.9 % 09/17/2016 FREE T4 94430 T4 Free 1.02 ng/dL 09/17/2016 COMPLETE BLOOD COUNT 8727274 WBC 8.6 10e9/L 07/26/2015 COMPLETE BLOOD COUNT 3309523 RBC 4.86 10e12/L 6 COMPLETE BLOOD COUNT 6544437 HGB 14.6 g/dL 07/26/2015 COMPLETE BLOOD COUNT 3414472 HCT DET 43.1 % 07/26/2015 COMPLETE BLOOD COUNT 8588178 MCV 88.7 fL 07/26/2015 COMPLETE BLOOD COUNT 4605611 MCH 30.0 pg 07/26/2015 COMPLETE BLOOD COUNT 8144966 MCHC 33.9 g/dL 07/26/2015 COMPLETE BLOOD COUNT 7532145 PLT 267 10e9/L 07/26/2015 COMPLETE BLOOD COUNT 6712220 MPV 11.5 fL 07/26/2015 COMPLETE BLOOD COUNT 3572942 SAM % 64.8 % 07/26/2015 COMPLETE BLOOD COUNT 4237852 LY % 16.8 % 07/26/2015 COMPLETE BLOOD COUNT 4615278 MON % 12.5 % 07/26/2015 COMPLETE BLOOD COUNT 4164746 EOS % 5.6 % 07/26/2015 COMPLETE BLOOD COUNT 3535286 BASO % 0.3 % 07/26/2015 COMPLETE BLOOD COUNT 9183457 RDW 13.4 % 07/26/2015 COMPLETE BLOOD COUNT 3226121 ABS SAM 5.57 10e9/L 07/26/2015 COMPLETE BLOOD COUNT 7430716 ABS LYMPH 1.44 10e9/L 07/26/2015 COMPLETE BLOOD COUNT 7753501 ABS MONO 1.08 10e9/L 07/26/2015 COMPLETE BLOOD COUNT 1437242 ABS EOS 0.48 10e9/L 07/26/2015 COMPLETE BLOOD COUNT 7867667 ABS BASO 0.03 10e9/L 07/26/2015 COMPLETE BLOOD COUNT 9613116 RDW-SD 42.9 fL 07/26/2015 PSA EQUIMOLAR MATT 27395 PSA EQ 0.78 NG/ML 07/26/2015 THYROID STIMULATING HORMONE 19035 TSH 5.292 uIU/ML 6 GLYCOSYLATED HEMOGLOBIN TEST 32732 A1C HPLC 73381-9 7.0 % 07/26/2015 GFR CALC 4373806 GFR AA >60 ML/MIN 07/26/2015 GFR CALC 5848486 GFR NON -AA >60 ML/MIN 07/26/2015 LIPID GROUP [address] 64 MG/DL 07/26/2015 [facility]IP[facility] GROUP 52411 TRIG 58 MG/DL 07/26/2015 LIPID GROUP 65974 TEST L DL 49 MG/DL 07/26/2015 LIPID GROUP 41186 CHOL 125 MG/DL 07/26/2015 LIP[facility] GROUP 53168 RCHOL/ HDL 1.95 RATIO 07/26/2015 LIPID GROUP 98316 NON-HD L CH 61 MG/DL 07/26/2015 COMPREHENSIVE METABOLIC 48225 AST 25 U/L 07/26/2015 COMPREHENSIVE METABOLIC 95522 ALT 23 IU/L 07/26/2015 COMPREHENSIVE METABOLIC 60767 BUN 18 MG/DL 07/26/2015 COMPREHENSIVE METABOLIC 88494 ALBUMIN 4.6 GM/DL 07/26/2015 COMPREHENSIVE METABOLIC 55771 CHLORIDE 100 MMOL/L 07/26/2015 COMPREHENSIVE METABOLIC 59034 BILI TOT 0.5 MG/DL 07/26/2015 COMPREHENSIVE METABOLIC 76706 ALK PHOS 49 U/L 07/26/2015 COMPREHENSIVE METABOLIC 25852 SODIUM 137 MMOL/L 07/26/2015 COMPREHENSIVE METABOLIC 73305 CREATININE 1.06 MG/DL 07/26/2015 COMPREHENSIVE METABOLIC 27694 CALCIUM 9.5 MG/DL 07/26/2015 COMPREHENSIVE METABOLIC 96628 POTASSIUM 4.5 MMOL/L 07/26/2015 COMPREHENSIVE METABOLIC 80251 PROT TOT 6.5 GM/DL 07/26/2015 COMPREHENSIVE METABOLIC 83744 Glucose 109 MG/DL 07/26/2015 COMPREHENSIVE METABOLIC 17662 BICARB 29 MMOL/L 07/26/2015 COMPREHENSIVE METABOLIC 60359 ANION GAP 8 MEQ/L 07/26/2015 FREE T4 11286 FREE T4 1.11 NG/DL 07/26/2015 CULTURE & SENSITIVITY 85469 PROTEIN UR NEG 01/24/2015 CULTURE & SENSITIVITY 16159 HEMGLBN UR TR 01/24/2015 CULTURE [facility] SENSITIVITY 80940 GLUCOSE UR NEG 01/24/2015 [facility]ULTURE [facility] SENSITIVITY 48917 KETONES UR NEG 01/24/2015 CULTURE & SENSITIVITY 04574 PH U 6.5 01/24/2015 CULTURE & SENSITIVITY 53930 SP GR U 1.013 01/24/2015 CULTURE & SENSITIVITY 82614 BILRUBN UR NEG 01/24/2015 CULTURE & SENSITIVITY 40210 LEUKO UR NEG 01/24/2015 CULTURE & SENSITIVITY 57480 NITRITE UR NEG 01/24/2015 MICR CUL? 1761224 SP TO JOHANA? NO 01/24/2015 MICR CUL? 0254504 APPEAR UR NORMAL 01/24/2015 MICR CUL? 0176665 RBC/uL 2.2 01/24/2015 MICR CUL? 1210655 WBC/uL 2.8 01/24/2015 MICR CUL? 6282600 SQ EPI /uL 1.0 01/24/2015 MICR CUL? 3369225 HYALCS T/uL 0.25 01/24/2015 MICR CUL? 2396374 WBC /H PF 1 01/24/2015 MICR CUL? 5990792 RBC /H PF 0 01/24/2015 GLYCOSYLATED HEMOGLOBIN TEST 81862 A1C HPLC 36761-6 6.6 % 01/17/2015 COMPLETE BLOOD COUNT 3624455 WBC 10.1 10e9/L 01/17/2015 COMPLETE BLOOD COUNT 4492449 RBC 4.60 10e12/L 5 COMPLETE BLOOD COUNT 0220519 HGB 14.0 g/dL 01/17/2015 COMPLETE BLOOD COUNT 9456402 HCT DET 39.9 % 01/17/2015 COMPLETE BLOOD COUNT 4234972 MCV 86.7 fL 01/17/2015 COMPLETE BLOOD COUNT 1633424 MCH 30.4 pg 01/17/2015 COMPLETE BLOOD COUNT 5629353 MCHC 35.1 g/dL 01/17/2015 COMPLETE BLOOD COUNT 1900654 PLT 252 10e9/L 01/17/2015 COMPLETE BLOOD COUNT 2524674 MPV 11.4 fL 01/17/2015 COMPLETE BLOOD COUNT 9914372 SAM % 72.9 % 01/17/2015 COMPLETE BLOOD COUNT 5704753 LY % 13.6 % 01/17/2015 COMPLETE BLOOD COUNT 1340440 MON % 10.2 % 01/17/2015 COMPLETE BLOOD COUNT 6955846 EOS % 3.1 % 01/17/2015 COMPLETE BLOOD COUNT 9234832 BASO % 0.2 % 01/17/2015 COMPLETE BLOOD COUNT 3855353 RDW 13.6 % 01/17/2015 COMPLETE BLOOD COUNT 8424098 ABS SAM 7.36 10e9/L 01/17/2015 COMPLETE BLOOD COUNT 4436406 ABS LYMPH 1.37 10e9/L 01/17/2015 COMPLETE BLOOD COUNT 2792162 ABS MONO 1.03 10e9/L 01/17/2015 COMPLETE BLOOD COUNT 6363810 ABS EOS 0.31 10e9/L 01/17/2015 COMPLETE BLOOD COUNT 0879861 ABS BASO 0.02 10e9/L 01/17/2015 COMPLETE BLOOD COUNT 8404290 RDW-SD 42.4 fL 01/17/2015 GFR CALC 5038414 GFR AA 51.0L ML/MIN 01/17/2015 GFR CALC 9132153 GFR NON -AA 42.0L ML/MIN 5 FREE T4 83034 FREE T4 1.30 NG/DL 01/17/2015 THYROID STIMULATING HORMONE 14505 TSH 4.029 uIU/ML 5 COMPREHENSIVE METABOLIC 33897 AST 28 U/L 01/17/2015 COMPREHENSIVE METABOLIC 90580 ALT 25 IU/L 01/17/2015 COMPREHENSIVE METABOLIC 36330 BUN 21 MG/DL 01/17/2015 COMPREHENSIVE METABOLIC 86474 ALBUMIN 4.7 GM/DL 01/17/2015 COMPREHENSIVE METABOLIC 47061 CHLORIDE 102 MMOL/L 01/17/2015 COMPREHENSIVE METABOLIC 31229 BILI TOT 0.6 MG/DL 01/17/2015 COMPREHENSIVE METABOLIC 54261 ALK PHOS 44 U/L 01/17/2015 COMPREHENSIVE METABOLIC 61296 SODIUM 137 MMOL/L 01/17/2015 COMPREHENSIVE METABOLIC 50632 CREATININE 1.62 MG/DL 01/17/2015 COMPREHENSIVE METABOLIC 46468 CALCIUM 9.7 MG/DL 01/17/2015 COMPREHENSIVE METABOLIC 58014 POTASSIUM 4.5 MMOL/L 01/17/2015 COMPREHENSIVE METABOLIC 45561 PROT TOT 6.5 GM/DL 01/17/2015 COMPREHENSIVE METABOLIC 86796 Glucose 136 MG/DL 01/17/2015 COMPREHENSIVE METABOLIC 05778 BICARB 24 MMOL/L 01/17/2015 COMPREHENSIVE METABOLIC 09803 ANION GAP 11 MEQ/L 01/17/2015 VITAMIN B 12 86208 VIT B 12 482 PG/ML 01/17/2015 URIC ACID 22502 URIC ACID 8.5 MG/DL 08/09/2014 COMPREHENSIVE METABOLIC 78037 AST 27 U/L 08/09/2014 COMPREHENSIVE METABOLIC 21968 ALT 26 IU/L 08/09/2014 COMPREHENSIVE METABOLIC 56776 BUN 17 MG/DL 08/09/2014 COMPREHENSIVE METABOLIC 31270 ALBUMIN 5.0 GM/DL 08/09/2014 COMPREHENSIVE METABOLIC 56421 CHLORIDE 101 MMOL/L 08/09/2014 COMPREHENSIVE METABOLIC 13839 BILI TOT 0.7 MG/DL 08/09/2014 COMPREHENSIVE METABOLIC 34777 ALK PHOS 53 U/L 08/09/2014 COMPREHENSIVE METABOLIC 32054 SODIUM 136 MMOL/L 08/09/2014 COMPREHENSIVE METABOLIC 47344 CREATININE 1.14 MG/DL 08/09/2014 COMPREHENSIVE METABOLIC 34617 CALCIUM 9.8 MG/DL 08/09/2014 COMPREHENSIVE METABOLIC 50698 POTASSIUM 4.1 MMOL/L 08/09/2014 COMPREHENSIVE METABOLIC 96223 PROT TOT 7.5 GM/DL 08/09/2014 COMPREHENSIVE METABOLIC 84805 Glucose 110 MG/DL 08/09/2014 COMPREHENSIVE METABOLIC 94441 BICARB 30 MMOL/L 08/09/2014 COMPREHENSIVE METABOLIC 10095 ANION GAP 5 MEQ/L 08/09/2014 GFR CALC 3829950 GFR AA >60 ML/MIN 08/09/2014 GFR CALC 6508881 GFR NON -AA >60 ML/MIN 08/09/2014 FREE T4 26964 FREE T4 1.14 NG/DL 08/09/2014 GLYCOSYLATED HEMOGLOBIN TEST 88128 A1C [facility] 82010-9 6.8 % 08/09/2014 COMPLETE BLOOD COUNT 5086977 WBC 5.9 10e9/L 08/09/2014 COMPLETE BLOOD COUNT 7232619 RBC 5.04 10e12/L 5 COMPLETE BLOOD COUNT 7628578 HGB 15.2 g/dL 08/09/2014 COMPLETE BLOOD COUNT 0174274 HCT DET 44.3 % 08/09/2014 COMPLETE BLOOD COUNT 4879938 MCV 87.9 fL 08/09/2014 COMPLETE BLOOD COUNT 9680382 MCH 30.2 pg 08/09/2014 COMPLETE BLOOD COUNT 4219092 MCHC 34.3 g/dL 08/09/2014 COMPLETE BLOOD COUNT 1573130 PLT 262 10e9/L 08/09/2014 COMPLETE BLOOD COUNT 0694795 MPV 10.9 fL 08/09/2014 COMPLETE BLOOD COUNT 8257729 SAM % 58.7 % 08/09/2014 COMPLETE BLOOD COUNT 5000337 LY % 21.5 % 08/09/2014 COMPLETE BLOOD COUNT 7944610 MON % 14.0 % 08/09/2014 COMPLETE BLOOD COUNT 5142169 EOS % 5.3 % 08/09/2014 COMPLETE BLOOD COUNT 0005683 BASO % 0.5 % 08/09/2014 COMPLETE BLOOD COUNT 8971300 RDW 13.1 % 08/09/2014 COMPLETE BLOOD COUNT 7654485 ABS SAM 3.46 10e9/L 08/09/2014 COMPLETE BLOOD COUNT 6670698 ABS LYMPH 1.27 10e9/L 08/09/2014 COMPLETE BLOOD COUNT 7492004 ABS MONO 0.83 10e9/L 08/09/2014 COMPLETE BLOOD COUNT [id number] ABS EOS 0.31 10e9/L 08/09/2014 COMPLETE BLOOD COUNT [id number] ABS BASO 0.03 10e9/L 08/09/2014 COMPLETE BLOOD COUNT [id number] RDW-SD 41.2 fL 08/09/2014 THYROID STIMULATING HORMONE 95755 TSH 5.395 uIU/ML 5 LIPID GROUP [address] 52 MG/DL 08/09/2014 LIPID GROUP 28586 TRIG 113 MG/DL 08/09/2014 LIPID GROUP 65349 TEST L DL 158 MG/DL 08/09/2014 LIPID GROUP 24703 CHOL 233 MG/DL 08/09/2014 LIPID GROUP 51461 RCHOL/ HDL 4.48 RATIO 08/09/2014 LIPID GROUP 88601 NON-HD L CH 181 MG/DL 08/09/2014 COMPLETE BLOOD COUNT [id number] WBC 6.8 10e9/L 09/08/2013 COMPLETE BLOOD COUNT [id number] RBC 5.18 10e12/L 4 COMPLETE BLOOD COUNT 0934409 HGB 15.2 g/dL 09/08/2013 COMPLETE BLOOD COUNT [id number] HCT DET 44.7 % 09/08/2013 COMPLETE BLOOD COUNT 4546790 MCV 86.3 fL 09/08/2013 COMPLETE BLOOD COUNT 7275731 MCH 29.3 pg 09/08/2013 COMPLETE BLOOD COUNT 2254593 MCHC 34.0 g/dL 09/08/2013 COMPLETE BLOOD COUNT 6984404 PLT 236 10e9/L 09/08/2013 COMPLETE BLOOD COUNT 8967186 MPV 11.0 fL 09/08/2013 COMPLETE BLOOD COUNT 6239127 SAM % 58.2 % 09/08/2013 COMPLETE BLOOD COUNT 6008958 LY % 21.9 % 09/08/2013 COMPLETE BLOOD COUNT 1774325 MON % 12.5 % 09/08/2013 COMPLETE BLOOD COUNT 3432169 EOS % 7.3 % 09/08/2013 COMPLETE BLOOD COUNT 6733684 BASO % 0.1 % 09/08/2013 COMPLETE BLOOD COUNT 2030528 RDW 13.6 % 09/08/2013 COMPLETE BLOOD COUNT 9778456 ABS SAM 3.96 10e9/L 09/08/2013 COMPLETE BLOOD COUNT 2259659 ABS LYMPH 1.49 10e9/L 09/08/2013 COMPLETE BLOOD COUNT 2889349 ABS MONO 0.85 10e9/L 09/08/2013 COMPLETE BLOOD COUNT 9334998 ABS EOS 0.50 10e9/L 09/08/2013 COMPLETE BLOOD COUNT [id number] ABS BASO 0.01 10e9/L 09/08/2013 COMPLETE BLOOD COUNT [id number] RDW-SD 42.3 fL 09/08/2013 COMPREHENSIVE METABOLIC 61154 AST 27 U/L 09/08/2013 COMPREHENSIVE METABOLIC 51665 ALT 30 IU/L 09/08/2013 COMPREHENSIVE METABOLIC 09670 BUN 16 MG/DL 09/08/2013 COMPREHENSIVE METABOLIC 16725 ALBUMIN 4.9 GM/DL 09/08/2013 COMPREHENSIVE METABOLIC 77337 CHLORIDE 99 MMOL/L 09/08/2013 COMPREHENSIVE METABOLIC 60343 BILI TOT 0.7 MG/DL 09/08/2013 COMPREHENSIVE METABOLIC 89101 ALK PHOS 53 U/L 09/08/2013 COMPREHENSIVE METABOLIC 65489 SODIUM 137 MMOL/L 09/08/2013 COMPREHENSIVE METABOLIC 33405 CREATININE 1.01 MG/DL 09/08/2013 COMPREHENSIVE METABOLIC 01404 CALCIUM 10.0 MG/DL 09/08/2013 COMPREHENSIVE METABOLIC 81463 POTASSIUM 4.4 MMOL/L 09/08/2013 COMPREHENSIVE METABOLIC 57754 PROT TOT 7.1 GM/DL 09/08/2013 COMPREHENSIVE METABOLIC 94563 Glucose 148 MG/DL 09/08/2013 COMPREHENSIVE METABOLIC 00076 BICARB 30 MMOL/L 09/08/2013 COMPREHENSIVE METABOLIC 53679 ANION GAP 8 MEQ/L 09/08/2013 GFR CALC [id number] GFR AA >60 ML/MIN 09/08/2013 GFR CALC [id number] GFR NON -AA >60 ML/MIN 09/08/2013 FREE T4 61855 FREE T4 1.08 NG/DL 09/08/2013 GLYCOSYLATED HEMOGLOBIN TEST 25327 A1C HPLC 73787-2 7.3 % 09/08/2013 THYROID STIMULATING HORMONE 90856 TSH 5.454 uIU/ML 4 LIPID GROUP [address] 59 MG/DL 09/08/2013 LIPID GROUP 17345 TRIG 92 MG/DL 09/08/2013 LIPID GROUP 91713 TEST L DL 83 MG/DL 09/08/2013 LIPID GROUP 60426 CHOL 160 MG/DL 09/08/2013 LIPID GROUP 30021 RCHOL/ HDL 2.71 RATIO 09/08/2013 VITAMIN B 12 FOLIC ACID 15045|50247 VIT B 12 467 PG/ML 03/12/2013 VITAMIN B 12 FOLIC ACID 61777|77472 FOLIC ACID 12.2 NG/ML 03/12/2013 VITAMIN B 12 FOLIC ACID 84606|60701 VIT B 12 467 PG/ML 03/12/2013 THYROID STIMULATING HORMONE 80097 TSH 4.557 uIU/ML 3 HEMOGLOBIN A1C (GLYCOSYLATED) 6942941 A1C HPLC 54238-8 7.6 % 03/12/2013 VITAMIN D TOTAL (25 HYDROXY) 32440 VIT D TOTL 17 NG/ML 03/12/2013 FREE T4 90133 FREE T4 1.07 NG/DL 03/12/2013 URIC ACID 68741 URIC ACID 5.2 MG/DL 03/12/2013 Review of [...] inspection of skin Location: face 10/22/2017 left spiritism, left lower jaw, left nasal bridge, right spiritism, right middle cheek, right helix Full Exam [...] Procedure Codes Date THER/PROPH/DIAG INJ SC/IM CPT-4: 37551 02/22/2019 TRIAMCINOLONE ACET I [place] NOS CPT-4: J3301 02/22/2019 FLU VACC PRSV FREE I NC ANTIG 65 AND OLDER CPT-4: 98538 04/21/2018 ADMIN INFLUENZA VIRU S VAC CPT-4: G0008 04/21/2018 PRESCRIP TRANSMIT A ERX SY CPT-4: G8553 04/21/2018 DESTRUCT PREMALG LES ION (Cryosurgery) CPT-4: 32244 10/22/2017 FLU VACC PRSV FREE I NC ANTIG 65 AND OLDER CPT-4: 49139 04/22/2017 ADMIN INFLUENZA VIRU S VAC CPT-4: G0008 04/22/2017 PRESCRIP TRANSMIT A ERX SY CPT-4: G8553 10/10/2016 PRESCRIP TRANSMIT A ERX SY CPT-4: G8553 08/29/2015 ROUTINE VENIPUNCTURE CPT-4: 38669 07/26/2015 ASSAY OF FREE THYROXINE CPT-4: 89390 07/26/2015 ASSAY THYROID STIM H ORMONE CPT-4: 36536 07/26/2015 COMPREHEN METABOLIC PANEL CPT-4: 28738 07/26/2015 COMPLETE CBC W/AUTO DIFF WBC CPT-4: 88118 07/26/2015 LIPID PANEL CPT-4: 91857 07/26/2015 ASSAY OF PSA TOTAL CPT- 4: 93085 07/26/2015 A1C HPLC CPT-4: 54403 07/26/2015 ROUTINE VENIPUNCTURE CPT-4: 84748 01/17/2015 ASSAY OF FREE THYROXINE CPT-4: 23327 01/17/2015 ASSAY THYROID STIM H ORMONE CPT-4: 57830 01/17/2015 COMPREHEN METABOLIC PANEL CPT-4: 35026 01/17/2015 COMPLETE CBC W/AUTO DIFF WBC CPT-4: 03469 01/17/2015 A1C HPLC CPT-4: 59911 01/17/2015 VITAMIN B-12 CPT-4: 15792 01/17/2015 PPPS, subseq visit CPT- 4: G0439 08/04/2014 PRESCRIP TRANSMIT A ERX SY CPT-4: G8553 02/18/2014 FLUZONE, 5ML (Medicare) CPT-4: Q2038 07/22/2013 ADMIN INFLUENZA VIRU S VAC CPT-4: G0008 07/22/2013 PRESCRIP TRANSMIT A ERX SY CPT-4: G8553 04/28/2013 ROUTINE VENIPUNCTURE CPT-4: 26513 03/12/2013 VITAMIN D TOTAL (25 HYDROXY) CPT-4: 11676 03/12/2013 VITAMIN B 12 FOLIC ACID CPT-4: 91171|12124 03/12/2013 A1C GLYCOSYLATED HEM OGLOBIN TEST CPT-4: 75178 03/12/2013 ASSAY OF BLOOD/URIC ACID CPT-4: 90837 03/12/2013 ASSAY OF FREE THYROXINE CPT-4: 69239 03/12/2013 ASSAY THYROID STIM H ORMONE CPT-4: 91278 03/12/2013 CUR TOBACCO NON-USER CPT-4: G8457 03/11/2013 [...] 1: 156/70 Code: 8480-6 BMI: 35.0 Code: 43751-3 Heart Rate 1: 68 bpm Height: 5'10" Respiratory Rate: 20 bpm SpO2: 95% Temperature: 36.5 (C ) / 97.7 (F) Weight: 244 lbs 04/21/2018 Blood Pressure 1: 124/80 Code: 8480-6 BMI: 34.4 Code: 05144-1 Heart Rate 1: 80 bpm Height: 5'10" Respiratory Rate: 20 bpm SpO2: 96% Temperature: 37.0 (C ) / 98.6 (F) Weight: 240 lbs 01/06/2018 Blood Pressure 1: 138/82 Code: 8480-6 BMI: 33.9 Code: 66332-0 Heart Rate 1: 96 bpm Height: 5'10" Respiratory Rate: 24 bpm SpO2: 98% Temperature: 35.9 (C ) / 96.6 (F) Weight: 236 lbs 10/22/2017 Blood Pressure 1: 144/70 Code: 8480-6 BMI: 34.7 Code: 58362-3 Heart Rate 1: 72 bpm Height: 5'10" Respiratory Rate: 20 bpm SpO2: 96% Temperature: 36.9 (C ) / 98.4 (F) Weight: 242 lbs 04/22/2017 Blood Pressure 1: 146/82 Code: 8480-6 BMI: 32.9 Code: 16801-9 Heart Rate 1: 104 bpm Height: 5'10" Respiratory Rate: 20 bpm SpO2: 95% Temperature: 36.9 (C ) / 98.5 (F) Weight: 229 lbs 10/10/2016 Blood Pressure 1: 124/64 Code: 8480-6 BMI: 32.9 Code: 16476-9 Heart Rate 1: 64 bpm Height: 5'10" [...] 1: 146/90 Code: 8480-6 BMI: 34.1 Code: 69241-5 Heart Rate 1: 80 bpm Height: 5'10" Respiratory Rate: 20 bpm Temperature: 36.8 (C ) / 98.2 (F) Weight: 238 lbs 01/17/2015 Blood Pressure 1: 116/60 Code: 8480-6 BMI: 32.7 Code: 41393-6 Heart Rate 1: 84 bpm Height: 5'10" Respiratory Rate: 20 bpm Temperature: 36.7 (C ) / 98.0 (F) Weight: 228 lbs 09/29/2014 Blood Pressure 1: 136/78 Code: 8480-6 BMI: 33.9 Code: 63251-3 Heart Rate 1: 80 bpm Height: 5'10" Respiratory Rate: 20 bpm Temperature: 36.6 (C ) / 97.9 (F) Weight: 236 lbs 08/04/2014 Blood Pressure 1: 132/70 Code: 8480-6 BMI: 32.9 Code: 11982-1 Heart Rate 1: 72 bpm Height: 5'10" Respiratory Rate: 20 bpm Temperature: 36.7 (C ) / 98.0 (F) Weight: 229 lbs 02/18/2014 Blood Pressure 1: 124/82 Code: 8480-6 Heart Rate 1: 82 bpm Respiratory Rate: 18 bpm Temperature: 36.4 (C) / 97.5 (F) Weight: 232 lbs 07/29/2013 Blood Pressure 1: 146/80 Code: 8480-6 BMI: 34.1 Code: 70077-6 Heart Rate 1: 64 bpm Height: 5'10" Respiratory Rate: 20 bpm Temperature: 36.9 (C ) / 98.5 (F) Weight: 238 lbs 05/26/2013 Blood Pressure 1: 142/90 Code: 8480-6 BMI: 34.0 Code: 93685-0 Heart Rate 1: 84 bpm Height: 5'10" Respiratory Rate: 20 bpm Temperature: 36.7 (C ) / 98.0 (F) Weight: 237 lbs 04/28/2013 Blood Pressure 1: 118/78 Code: 8480-6 BMI: 32.9 Code: 45303-1 Heart Rate 1: 74 bpm Height: 5'10" Respiratory Rate: 20 bpm Temperature: 36.1 (C ) / 97.0 (F) Weight: 229 lbs 03/11/2013 Blood Pressure 1: 146/80 Code: 8480-6 BMI: 31.5 Code: 92042-3 Heart Rate 1: 80 bpm Height: 6' [...] both sides 11/25/2018 None Location in the vehicle care specialist ior area 11/25/2018 None Onset and Resolution o ngoing 11/25/2018 Patient is taking baclofe n at bedtime. 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 04/21/2018 None hyperlipidemia Quality c hronic [...] weeks ago 08/29/2015 None hyperglycemia Quality ac [place] 07/24/2015 None knee pain Location on th [...] Encounters Encounter Performer Loca tion Codes Date ([id number]) OFFICE/OUTPA TIENT VISIT EST Diagnosis: Acute sinusitis, unspecified[ICD10: J01.90] Pennie ROSENBAUM Baoku [facility] CPT-4: 66174 02/22/2019 ([id number]) OFFICE/OUTPA TIENT VISIT EST Diagnosis: Cervicalgia[ICD10: M54.2] Xiomara BETTENCOURT DO [facility] CPT-4: 47451 11/25/2018 ([id number]) OFFICE/OUTPA TIENT VISIT EST Diagnosis: Acute sinusitis, unspecified[ICD10: J01.90] Diagnosis: Myalgia, unspecified site[ICD10: M79.10] Diagnosis: Cervicalgia[ICD10: M54.2] Xiomara BETTENCOURT [facility] CPT-4: 29853 11/19/2018 ([id number]) OFFICE/OUTPA TIENT VISIT EST Diagnosis: Low back pain[ICD10: M54.5] Diagnosis: Essential (primary) hypertension[ICD10: I10] Diagnosis: 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, 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] Diagnosis: Paroxysmal atrial fibrillation[ICD10: I48.0] Xiomara MAGALLON [facility] CPT-4: 59637 07/22/2018 ([id number]) OFFICE/OUTPA TIENT VISIT EST Diagnosis: Type 2 diabetes mellitus with diabetic neuropathy, unspecified[ICD10: E11.40] Diagnosis: Hyperlipidemia, unspecified[ICD10: E78.5] Diagnosis: Essential (primary) hypertension[ICD10: I10] Diagnosis: Chronic kidney disease, stage 1[ICD10: N18.1] Diagnosis: Benign prostatic hyperplasia with lower urinary tract symptoms[ICD10: N40.1] Diagnosis: FLU VACCINE[ICD10: Z23] Xiomara BETTENCOURT [facility] CPT-4: 87146 04/21/2018 OFFICE/OUTPATIENT SIT EST Diagnosis: Type 2 diabetes mellitus with hyperglycemia[ICD10: E11.65] Diagnosis: Essential (primary) hypertension[ICD10: I10] Diagnosis: Mixed hyperlipidemia[ICD10: E78.2] Diagnosis: Other fatigue[ICD10: R53.83] Pennie MCBRIDE [facility] CPT-4: 67672 01/06/2018 ([id number]) OFFICE/OUTPA TIENT VISIT EST Diagnosis: Type 2 diabetes mellitus with diabetic neuropathy, unspecified[ICD10: E11.40] Diagnosis: Essential (primary) hypertension[ICD10: I10] Diagnosis: Pain in right thigh[ICD10: M79.651] Diagnosis: Pain in left leg[ICD10: M79.605] Diagnosis: Localized swelling, mass and lump, left lower limb[ICD10: R22.42] Diagnosis: OSTEOARTHRISIS MULTI SITES[ICD10: M19.90] Diagnosis: FLU VACCINE[ICD10: Z23] Xiomara Rut RENAEQUELINE Elvia MCBRIDE [facility] CPT-4: 24927 04/22/2017 ([id number]) OFFICE/OUTPA TIENT VISIT EST Diagnosis: Essential (primary) hypertension[ICD10: I10] Diagnosis: Type 2 diabetes mellitus with hyperglycemia[ICD10: E11.65] Diagnosis: Angina pectoris, unspecified[ICD10: I20.9] Xiomara Bettencourt XIOMARA Elvia [facility] CPT-4: 22964 10/10/2016 ([id number]) OFFICE/OUTPA TIENT VISIT EST Diagnosis: Cough[ICD10: R05] Diagnosis: Wheezing[ICD10: R06.2] Diagnosis: Chronic obstructive pulmonary disease, unspecified[ICD10: J44.9] Shannan LARA DelphineEdvin REED [facility] CPT-4: 33303 08/31/2015 OFFICE/OUTPATIENT SIT EST Diagnosis: Acute bronchitis, unspecified[ICD10: J20.9] Diagnosis: Wheezing[ICD10: R06.2] Kelsie RENAEQUELINE DelphineEdvin REED [facility] CPT-4: 92217 08/29/2015 ([id number]) OFFICE/OUTPA TIENT VISIT EST Diagnosis: Type 2 diabetes mellitus with diabetic neuropathy, unspecified[ICD10: E11.40] Diagnosis: Hyperlipidemia, unspecified[ICD10: E78.5] Diagnosis: Essential (primary) hypertension[ICD10: I10] Diagnosis: Encounter for general adult medical examination without abnormal findings[ICD10: Z00.00] Xiomara BETTENCOURT [facility] CPT-4: 90882 07/26/2015 OFFICE/OUTPATIENT SIT EST Diagnosis: Type 2 diabetes mellitus with hyperglycemia[ICD10: E11.65] Diagnosis: Unspecified osteoarthritis, unspecified site[ICD10: M19.90] Diagnosis: Other instability, right knee[ICD10: M25.361] Kelsie MILLER DO [facility] CPT-4: 04396 07/24/2015 ([id number]) OFFICE/OUTPA TIENT VISIT EST Diagnosis: Pain in leg, unspecified[ICD10: M79.606] Diagnosis: Type 2 diabetes mellitus with diabetic neuropathy, unspecified[ICD10: E11.40] Xiomara BETTENCOURT [facility] CPT-4: 94030 05/01/2015 ([id number]) OFFICE/OUTPA TIENT VISIT EST Diagnosis: MALAISE AND FATIGUE[ICD9: 780.79] Diagnosis: 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, 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] Diagnosis: CAD[ICD9: 414.00] Diagnosis: ANEMIA NOS[ICD9: 285.9] Xiomara BETTENCOURT [facility] CPT-4: 62976 01/17/2015 ([id number]) OFFICE/OUTPA TIENT VISIT EST Diagnosis: Skin lesion[ICD9: 709.9] Xiomara BETTENCOURT [facility] CPT-4: 48896 09/29/2014 OFFICE/OUTPATIENT SIT EST Diagnosis: GASTROENTERITIS[ICD9: 558.9] Diagnosis: GERD[ICD9: 530.81] Kelsie BETTENCOURT DO [facility] CPT-4: 01449 02/18/2014 ([id number]) OFFICE/OUTPA TIENT VISIT EST Diagnosis: 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I, UNCONTROLLED[ICD9: 250.02] Xiomara MAGALLON [facility] CPT-4: 83462 07/29/2013 ([id number]) OFFICE/OUTPA TIENT VISIT EST Diagnosis: FLU VACCINE[ICD9: V04.81] Xiomara MCBRIDE [facility] CPT-4: 73968 07/22/2013 ([id number]) OFFICE/OUTPA TIENT VISIT EST Diagnosis: 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I, UNCONTROLLED[ICD9: 250.02] Diagnosis: HYPERTENSION[ICD9: 401.9] Xiomara MCBRIDE [facility] CPT-4: 17287 05/26/2013 ([id number]) OFFICE/OUTPA TIENT VISIT EST Diagnosis: MONONEURITIS[ICD9: 355.9] Diagnosis: RESTLESS LEGS SYNDROME[ICD9: 333.94] Diagnosis: HYPERTENSION[ICD9: 401.9] Diagnosis: CAD[ICD9: 414.00] Diagnosis: Weakness[ICD9: 780.79] Xiomara MCBRIDE [facility] CPT-4: 14993 04/28/2013 ([id number]) OFFICE/OUTPA TIENT VISIT EST Diagnosis: 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[ICD9: 250.01] Diagnosis: MONONEURITIS[ICD9: 355.9] Diagnosis: HYPERLIPIDEMIA NEC/NOS[ICD9: 272.4] Diagnosis: CAD[ICD9: 414.00] Xiomara MCGEEwatAgame Baoku [facility] CPT-4: 57677 03/12/2013 OFFICE/OUTPATIENT SIT NEW Diagnosis: CAD[ICD9: 414.00] Diagnosis: HYPERLIPIDEMIA NEC/NOS[ICD9: 272.4] Diagnosis: HYPERTENSION[ICD9: 401.9] Diagnosis: Neuropathy[ICD9: 355.9] Diagnosis: RESTLESS LEGS SYNDROME[ICD9: 333.94] Xiomara BROWN [facility] CPT-4: 02408 03/11/2013 Plan of Care Planned Activity Notes [...] : J01.90 02/22/2019 Appointment: Pennie Pizarro Parvez [address] [place], [place] [id number] ACUTE ILLNESS 02/22/2019 Patient Education: prednisone- OptimizeRX Coupon [phone] [email or web address] Completed 02/22/2019 Visit Diagnosis Plan: Cervicalgia Di scussion: Check Cervical Spine X-ray Will likely need PT ICD-9 : 723.1 ICD-10 : M54.2 11/25/2018 Appointment: Xiomara Bettencourt WPtel: [facility] ACUTE ILLNESS 11/25/2018 Visit Plan: Saline [...] Tyle... 11/19/2018 Appointment: Xiomara Bettencourt WPtel: [phone] ACUTE ILLNESS 11/19/2018 Patient Education: baclofen- Optimize[employer] Coupon [phone] [id number] [email or web address]/[email or web address] Completed 11/19/2018 Visit Diagnosis Plan: Paroxysmal atrial [...] I10 07/22/2018 Appointment: Xiomara Bettencourt WPtel: [phone] [facility] [place] FOLLOW UP 07/22/2018 Visit Diagnosis [...] Trial of flomax Call in 1 mo [facility] on how doing Follow Up: 4 months ICD-9 : 600.21 ICD-10 : N40.1 04/21/2018 Appointment: Xiomara Bettencourt WPtel: [phone] [facility] [place] FOLLOW UP 04/21/2018 Patient Education: [...] ICD-10 : E78.2 01/06/2018 Appointment: Pennie Pizarro [address] [place] [address] MEDICATION REVIEW 01/06/2018 Patient Education: Patient Medication Summary Completed 01/06/2018 Appointment: Xiomara Bettencourt WPtel: [address] [place] [address] NO SHOW 01/05/2018 Appointment: Xiomara Bettencourt WPtel: [address] [place] [address] [place] CANCELED 12/31/2017 Visit Diagnosis Plan: Actinic keratosis Discussion: Cryotherapy as above but will see derm if lesions do not resolve ICD-9 : 702.0 ICD-10 : L57.0 10/22/2017 Appointment: Xiomara Bettencourt WPtel: [address] [place] [address] ACUTE ILLNESS 10/22/2017 Patient Education: Patient Medication [...] M79.605 04/22/2017 Appointment: [facility] Bettencourt [phone] [facility] [facility] 04/22/2017 Patient Education: Patient Medication Summary Completed 04/22/2017 Patient Education: Patient Medication Summary Completed 04/16/2017 Care Plan: COMPREHEN METABOLIC PANEL LOINC : 90687-6 Pending 04/16/2017 Care Plan: LIPID PANEL LOINC : 56568-1 Pending 04/16/2017 Care Plan: CBC Pending 04/16/2017 Care Plan: A1C HPLC LO INC : 48338-0 Pending 04/16/2017 Referral: Inocencio Goodson WPtel: [phone] [facility] [id number] [place] Referral Appointment Confirmed 10/14/2016 Visit Diagnosis Plan: Type 2 diabetes me llitus with hyperglycemia Discussion: Continue touanneo Accharshals B ID Follow Up: 4 months ICD-9 : 250.02 ICD-10 : E11.65 10/10/2016 Visit Diagnosis Plan: Angina pectoris, unspecified Discussion: Continue imdur and see cardiology To ER if chest pain returns ICD-9 : 413.9 ICD-10 : I20.9 10/10/2016 Appointment: Xiomara Bettencourt [facility]Ptel[facility] [phone] [facility] FO[facility] 10/10/2016 Patient Education: Patient Medication Summary Completed 10/10/2016 Patient Education: Patient Medication Summary Completed 09/16/2016 Care Plan: COMPREHEN METABOLIC PANEL LOINC : 69416-0 Pending 09/16/2016 Care Plan: ASSAY THYROID STIM HORMONE Pending 09/16/2016 Care Plan: ASSAY OF FREE THYROXINE Pending 09/16/2016 Care Plan: LIPID PANEL LOINC : 04137-6 Pending 09/16/2016 Care Plan: CBC Pending 09/16/2016 Care Plan: A1C HPLC LO INC : 84899-1 Pending 09/16/2016 Visit Plan: CXR now to further eval uate symptoms Suspect viral since he has been on 2 rounds of antibiotics If chronic lung disease evident, 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 Sample 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 given today with instructions [...] disease evident, will consider keeping on symbicort group home Sample inhaler given today with instructions [...] disease evident, will consider keeping on symbicort group home Sample inhaler given today with instructions on use Continue oral prednisone, would like to avoid injection if possible considering his DM status and he is stable right now Continue albuterol PRN Will call with CXR results 08/31/2015 Appointment: [facility] [facility] 08/31 confirmed- SP ACUTE ILLNESS 08/31/2015 Patient Education: Patient Medication Summary Completed 08/31/2015 Visit Plan: Albuterol INH via SVN e very 4 hours Prednisone 20 mg PO BID Notify for worsening symptoms 08/29/2015 Visit Plan: Albuterol INH via SVN e very 4 hours Prednisone 20 mg PO BID Notify for worsening symptoms 08/29/2015 Appointment: Kelsie Grubbs WPtel: [address] [place], [place] [id number] ACUTE ILLNESS 08/29/2015 Patient Education: Patient Medication Summary Completed 08/29/2015 Appointment: Xiomara Bettencourt WPtel: [address] [place], [place] [phone] LAB 07/26/2015 [...] knees, bilaterally. 07/24/2015 Appointment: Kelsie Grubbs WPtel: [address] [place], [place] [id number] 07/21 appt confirmed cn FOLLOW UP 07/24/2015 Appointment: Kelsie Grubbs WPtel: [address] [place], [place] [phone] FOLLOW UP 07/24/2015 Patient Education: Patient Medication [...] with insulin 05/01/2015 Appointment: Xiomara Bettencourt WPtel: [address] [place], [place] [phone] 04/28 confirmed~sl ACUTE ILLNESS 05/01/2015 Patient Education: Patient Medication Summary Completed 05/01/2015 Patient Education: Patient Medication Summary Completed 01/19/2015 Care Plan: URINALYSIS AUTO W/O SCOPE LOINC : 25805-2 Pending 01/19/2015 Visit Plan: I have went through his medications in past and stopped meds but he adjusts his meds on his own and has restarted some Stop Amaryl Once again discussed not using indomethacin routinely due to taking leticia vix and aspirin daily and skilled nursing use [...] taking leticia vix and aspirin daily and skilled nursing use is dangerous Check CBC, CMP, TSH, free T4, B12 and HbA1C Patient has seen Cardiology recently but no cardiac cath done--had chemical stress test 01/17/2015 Appointment: Xiomara Bettencourt WPtel: [phone] [place] [address] 01/16 vm cn ACUTE ILLNESS 01/17/2015 Patient Education: Patient Medication Summary Completed 01/17/2015 Visit Plan: See Dr. Garvin for remov al 09/29/2014 Appointment: Xiomara Bettencourt WPtel: [phone] ACUTE ILLNESS 09/29/2014 Referral: Colt Garvin WPtel: [address] [place] [address] Referral Initiated 09/29/2014 Patient Education: Patient Medication Summary Completed 09/29/2014 Visit Plan: Check CBC, CMP, TSH, fr ee T4, HbA1C, Lipids Accuchecks daily alternating times Patient has been adjusting own meds and has not taken any cholesterol meds for sometime Will check into surgery on right knee at [place] Check carotid dopplers 08/04/2014 Appointment: Xiomara Bettencourt WPtel: [address] [place], [place] [phone] Annual Well Visit 08/04/2014 Patient Education: Patient Medication Summary Completed 08/04/2014 Visit Plan: Stop Omeprazole 20 mg a nd start Zegerid 40mg PO daily x 14 days then resume previous dose of Omeprazole. May take Zofran 8 mg SL as needed every 8 hours for nausea [place] diet 02/18/2014 Appointment: Kelsie Grubbs WPtel: [address] [place], [place] [phone] ACUTE ILLNESS 02/18/2014 Patient Education: Patient Medication Summary Completed 02/18/2014 Patient Education: [facility] - Saving AutoInj - 18+ - Dynamic Portal ID Completed 02/18/2014 Appointment: Xiomara Bettencourt WPtel: [address] [place], [place] [phone] LAB 09/08/2013 Visit Plan: Check fasting lab in 1m o Continue Lantus and accuchecks at least BID 07/29/2013 Appointment: Xiomara Bettencourt WPtel: [address] [place] [address] FOLLOW UP 07/29/2013 Patient Education: Patient Medication Summary Completed 07/29/2013 Appointment: Xiomara Bettencourt WPtel: [address] [place], [place] [phone] INJECTION 07/22/2013 Patient Education: Patient Medication Summary Completed 07/22/2013 Visit Plan: Pt has been self-adjust ing meds Stop metformin and amaryl Use Levemir 25u sc BID and call in 1wk with BS readings 05/26/2013 Appointment: Xiomara Bettencourt WPtel: [address] [place] [address] FOLLOW UP 05/26/2013 Patient Education: Patient Medication Summary Completed 05/26/2013 Visit Plan: DC Metformin Increase L antus to 30u sc daily Change lisinopril to lisinopril HCT 20/25mg q AM Continue Gabapentin at current dose 04/28/2013 Appointment: Xiomara Bettencourt [facility]el: [phone] [facility] [facility] FOLLOW [facility] 04/28/2013 Patient Education: Patient Medication Summary Completed 04/28/2013 Appointment: Xiomara Bettencourt WPtel: [phone] [facility] [facility] LAB 03/12/2013 Patient Education: Patient Medication Summary Completed 03/12/2013 Visit Plan: Trial of neurontin 400m g q HS Obtain most recent lab results Change levemir to lantus per pt request Pt goes for sleep study tonite 03/11/2013 Appointment: Xiomara Bettencourt WPtel: [phone] [facility] 02/01paperwork mailed 03/10 confirmed with spouse NEW PATIENT 03/11/2013 Patient Education: Patient Medication Summary Completed 03/11/2013 Instructions Comment Has previously compl eted 10 days of [...] right knee at [place] Check carotid dopplers . Pt has been self-a djusting meds Stop metformin and amaryl Use Levemir 25u sc BID and call in 1wk with BS readings . 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 Saline nasal flush es prn. Tylenol/Motrin prn headache. Notify if persists/symptoms worsening. . See Dr. Garvin for removal . Trial of neurontin 400mg q HS Obtain most recent lab results Change levemir to lantus per pt request Pt goes for sleep study nat Has previously compl eted 10 days of Keflex and 5 days of Azithromycin . Albuterol INH via SVN every 4 hours Prednisone 20 mg PO BID Notify for worsening symptoms . Retry gabapentin a t 300mg q [...] AM Continue Gabapentin at current dose . Return in am for f asting [...] as needed every 8 hours for nausea [place] diet . Check fasting lab in 1mo Continue Lantus and accuchecks at least BID
--- OUTSIDE RECORDS SUMMARY | 2020-02-02 21:53 | XMS REPORT | Continuity of Care Document ---
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 01/01/2013 PAUL PHAN DO Ot 250.00 DIAB STEVEN WO COMPL, TYPE II OR UNSPEC TY 01/01/2013 PAUL PHAN DO Ot 257.2 TESTICULAR HYPOFUNC NEC 01/01/2013 PAUL PHAN DO Ot 268.9 VITAMIN D DEFICIENCY NOS 01/01/2013 PAUL PHAN DO Ot 272.4 HYPERLIPIDEMIA NEC/NOS 01/01/2013 PAUL PHAN DO Ot 274.9 GOUT NOS 01/01/2013 APUL PHAN DO Ot 401.9 HYPERTENSION NOS 01/01/2013 [...] DO, Ot V57.1 PHYSICAL THERAPY NEC 09/20/2013 DHRUV PINTO MD Ot 787.01 NAUSEA WITH VOMITING 09/20/2013 DHRUV PINTO MD Ot 787.91 DIARRHEA 11/22/2013 PAUL PHAN DO [...] OF INSULIN 06/13/2014 DARIEN RODRIGEZ MD Ot 413 .9 06/13/2014 DARIEN RODRIGEZ MD Ot V57.89 06/15/2014 DARIEN RODRIGEZ MD Ot 413 .9 ANGINA PECTORIS NEC/NOS 06/15/2014 DARIEN RODRIGEZ MD Ot V57.89 REHABILITATION PROC NEC 07/25/2014 DORI AGRAWAL GUIDE TOUR Ot 882 .0 OPEN WOUND OF HAND 07/25/2014 DORI AGRAWAL GUIDE TOUR Ot E000.8 OTHER EXTERNAL CAUSE STATUS 07/25/2014 DORI AGRAWAL GUIDE TOUR Ot E906.3 ANIMAL BITE NEC 07/25/2014 DORI AGRAWAL GUIDE TOUR Ot V01 .5 RABIES CONTACT 07/25/2014 DORI AGRAWAL GUIDE TOUR Ot V04 .5 VACCIN FOR RABIES 08/12/2014 XIOMARA BETTENCOURT DO Ot 433.30 12/03/2014 XIOMARA BETTENCOURT DO Ot 433.30 05/08/2015 XIOMARA BETTENCOURT DO Ot I73.9 05/12/2015 Ot 428.0 05/12/2015 Ot 440.0 05/12/2015 Ot 443.9 05/12/2015 Ot 440.0 05/12/2015 Ot 414.00 05/12/2015 Ot 530.89 05/12/2015 Ot 793.1 05/12/2015 Ot 729.5 05/12/2015 Ot 782.3 05/12/2015 Ot 564.00 05/12/2015 Ot V72.84 05/12/2015 PAUL PHAN DO Ot 327.23 05/12/2015 PAUL PHAN DO Ot 327.51 05/12/2015 EMILIE DACOSTA PAUL Fabrizio Ot 414.00 05/12/2015 EMILIE DACOSTA PAUL Fabrizio Ot 794.30 05/12/2015 JANEL HU, LUCILLE Dinh Ot 724.0 2 05/12/2015 RENONDER DO, XIOMARA S Ot 433.30 05/12/2015 ORENDER DO, XIOMARA S Ot I73.9 05/29/2015 ORENDER DO, XIOMARA S Ot I73.9 05/29/2015 ORENDER DO, XIOMARA S Ot I70.203 05/29/2015 ORENDER DO, XIOMARA S Ot M79.609 06/06/2015 ORENDER DO, XIOMARA S Ot I73.9 07/27/2015 Ot 428.0 07/27/2015 Ot 440.0 07/27/2015 Ot 443.9 07/27/2015 Ot 440.0 07/27/2015 Ot 414.00 07/27/2015 Ot 530.89 07/27/2015 Ot 793.1 07/27/2015 Ot 729.5 07/27/2015 Ot 782.3 07/27/2015 Ot 564.00 07/27/2015 Ot V72.84 07/27/2015 PAUL PHAN DO Ot 327.23 07/27/2015 PAUL PHAN DO Ot 327.51 07/27/2015 EMILIE DACOSTA PAUL Fabrizio Ot 414.00 07/27/2015 EMILIE DACOSTA PAUL Fabrizio Ot 794.30 07/27/2015 LUCILLE ISLAS MD Ot 724.0 2 07/27/2015 RENONDER DO, XIOMARA S Ot 433.30 07/27/2015 RENONDER DO, XIOMARA S Ot I73.9 07/27/2015 ORENDER DO, XIOMARA S Ot I70.213 08/31/2015 Ot 428.0 08/31/2015 [...] Ot 794.30 08/31/2015 LUCILLE ISLAS MD Ot 724.0 2 08/31/2015 ORENDER DO, XIOMARA S Ot 433.30 08/31/2015 ORENDER DO, XIOMARA S Ot I73.9 08/31/2015 ORENDER DO, XIOMARA S Ot I70.213 08/31/2015 ORENDER DO, XIOMARA S Ot M25.561 08/31/2015 ORENDER DO, XIOMARA S Ot M25.562 09/01/2015 ORENDER DO, XIOMARA S Ot M25.561 09/01/2015 ORENDER DO, XIOMARA S Ot M25.562 09/04/2015 ORENDER DO, XIOMARA S Ot M25.561 PAIN IN RIGHT KNEE 09/04/2015 ORENDER DO, XIOMARA S Ot M25.562 PAIN IN LEFT KNEE 09/20/2015 EARNEST LO GUIDE TOUR Ot J44.9 10/02/2015 EARNEST LO GUIDE TOUR Ot J44.9 10/25/2015 ORENDER DO, XIOMARA S Ot I70.213 ATHSCL [place] ARTERIES OF EXTRM W INTRMT 12/29/2015 ARAM VASQUEZ MD Ot Z47.1 AFTERCARE FOLLOWING JOINT REPLACEMENT IRENE 12/29/2015 ARAM VASQUEZ MD Ot 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 01/11/2016 ARAM VASQUEZ MD Ot Z47.1 AFTERCARE FOLLOWING JOINT REPLACEMENT IRENE 01/11/2016 ARAM VASQUEZ MD Ot 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 01/23/2016 ARAM VASQUEZ MD Ot Z47.1 AFTERCARE FOLLOWING JOINT REPLACEMENT IRENE 01/23/2016 ARAM VASQUEZ MD Ot 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 02/11/2016 BRANDEN MEDINA Ot S81.852A OPEN BITE, LEFT LOWER LEG, INITIAL ENCOU 02/11/2016 RON TORRESBRANDEN Ot W54.0XXA BITTEN BY DOG, INITIAL ENCOUNTER 02/11/2016 RON MELISSABRANDEN Ot Y99.8 OTHER EXTERNAL CAUSE STATUS 02/11/2016 RON TORRESBRANDEN Ot Z 23 ENCOUNTER FOR IMMUNIZATION 02/13/2016 RON MELISSABRANDEN Ot S81.852A OPEN BITE, LEFT LOWER LEG, INITIAL ENCOU 02/13/2016 RON MELISSABRANDEN Ot W54.0XXA BITTEN BY DOG, INITIAL ENCOUNTER 02/13/2016 RON MELISSABRANDEN Ot Y99.8 OTHER EXTERNAL CAUSE STATUS 02/13/2016 RON MELISSABRANDEN Ot Z 23 ENCOUNTER FOR IMMUNIZATION 04/22/2017 XIOMARA BETTENCOURT DO Ot R22.42 LOCALIZED SWELLING, MASS AND LUMP, LEFT 04/22/2017 Ot 729.5 PAIN IN LIMB 04/22/2017 Ot 782.3 EDEMA 04/22/2017 Ot 564.00 UNS PEC CONSTIPATION 04/22/2017 Ot V72.84 EXA M PRE- OPERATIVE NOS 04/22/2017 PAUL PHAN DO Ot 327.23 OBSTRUCTIVE SLEEP APNEA (ADULT) (PEDIATR 04/22/2017 PAUL PHAN DO Ot 327.51 PERIODIC LIMB MOVEMENT DISORDER 04/22/2017 PAUL PHAN DO Ot 414.00 CORON ATHEROSCLER NOS TYPE VESSEL, NATIV 04/22/2017 PAUL PHAN DO Ot 794.30 ABN CARDIOVASC STUDY NOS 04/22/2017 LUCILLE ISLAS MD Ot 724.0 2 SPINAL STENOSIS, LUMBAR REG, W/OUT NEURO 04/22/2017 XIOMARA BETTENCOURT DO S Ot 433.30 MULT BILTRAL ARTERY OCCLUSION WO CEREBRA 04/22/2017 XIOMARA BETTENCOURT DO S Ot I73.9 PERIPHERAL VASCULAR DISEASE, UNSPECIFIED 04/22/2017 XIOMARA BETTENCOURT DO S Ot I70.213 ATHSCL [place] ARTERIES OF EXTRM W INTRMT 04/22/2017 EARNEST LO APRN Ot J44.9 CHRONIC OBSTRUCTIVE PULMONARY DISEASE, U 04/22/2017 XIOMARA BETTENCOURT DO Ot R22.42 LOCALIZED SWELLING, MASS AND LUMP, LEFT 05/14/2017 ORENDER DO, XIOMARA S Ot M79.661 PAIN IN RIGHT LOWER LEG 05/14/2017 ORENDER DO, XIOMARA S Ot M79.662 PAIN IN LEFT LOWER LEG 05/28/2017 ORENDER DO, XIOMARA S Ot M79.661 PAIN IN RIGHT LOWER LEG 05/28/2017 ORENDER DO, XIOMARA S Ot M79.662 PAIN IN LEFT LOWER LEG 06/24/2017 IVAN AMIN APRN Ot M79.89 OTHER SPECIFIED SOFT TISSUE DISORDERS 06/24/2017 IVAN AMIN APRN Ot M79.89 OTHER SPECIFIED SOFT TISSUE DISORDERS 06/24/2017 Ot 729.5 PAIN IN LIMB 06/24/2017 Ot 782.3 EDEMA 06/24/2017 Ot 564.00 UNS PEC CONSTIPATION 06/24/2017 Ot V72.84 EXA M PRE- OPERATIVE NOS 06/24/2017 PAUL PHAN DO Ot 327.23 OBSTRUCTIVE SLEEP APNEA (ADULT) (PEDIATR 06/24/2017 PAUL PHAN DO Ot 327.51 PERIODIC LIMB MOVEMENT DISORDER 06/24/2017 PAUL PHAN DO Ot 414.00 CORON ATHEROSCLER NOS TYPE VESSEL, NATIV 06/24/2017 PAUL PHAN DO Ot 794.30 ABN CARDIOVASC STUDY NOS 06/24/2017 JANEL HU, LUCILLE Dinh Ot 724.0 2 SPINAL STENOSIS, LUMBAR REG, W/OUT NEURO 06/24/2017 OC BETTENCOURT DOQUELINE S Ot 433.30 MULT BILTRAL ARTERY OCCLUSION WO CEREBRA 06/24/2017 OC BETTENCOURT DOQUELINE S Ot I73.9 PERIPHERAL VASCULAR DISEASE, UNSPECIFIED 06/24/2017 KODAK DACOSTA, XIOMARA S Ot I70.213 ATHSCL [place] ARTERIES OF EXTRM W INTRMT 06/24/2017 EARNEST LO APRN Ot J44.9 CHRONIC OBSTRUCTIVE PULMONARY DISEASE, U 06/24/2017 REEDER DO, XIOMARA S Ot M79.661 PAIN IN RIGHT LOWER LEG 06/24/2017 KODAK DOOCXIOMARA S Ot M79.662 PAIN IN LEFT LOWER LEG 06/24/2017 IVAN AMIN APRN Ot M79.89 OTHER SPECIFIED SOFT TISSUE DISORDERS 06/25/2017 IVAN AMIN APRN Ot J44.9 CHRONIC OBSTRUCTIVE PULMONARY DISEASE, U 06/25/2017 IVAN AMIN E GUIDE TOUR Ot M79.89 OTHER SPECIFIED SOFT TISSUE DISORDERS 07/24/2017 IVAN AMIN E GUIDE TOUR Ot J44.9 CHRONIC OBSTRUCTIVE PULMONARY DISEASE, U 07/24/2017 IVAN AMIN E GUIDE TOUR Ot M79.89 OTHER SPECIFIED SOFT TISSUE DISORDERS 07/30/2017 IVAN AMIN E GUIDE TOUR Ot J44.9 CHRONIC OBSTRUCTIVE PULMONARY DISEASE, U 07/30/2017 IVAN AMIN E GUIDE TOUR Ot M79.89 OTHER SPECIFIED SOFT TISSUE DISORDERS 02/24/2018 JAYESH WOOD DO Ot E11.9 TYPE 2 DIABETES MELLITUS WITHOUT COMPLIC 02/24/2018 JAYESH WOOD DO Ot I10 ESSENTIAL (PRIMARY) HYPERTENSION 02/24/2018 JAYESH WOOD DO Ot I25.10 ATHSCL HEART DISEASE OF [place] CORONARY 02/24/2018 JAYESH WOOD DO Ot J44.9 CHRONIC OBSTRUCTIVE PULMONARY DISEASE, U 02/24/2018 JAYESH WOOD DO Ot K21.9 GASTRO-ESOPHAGEAL REFLUX DISEASE WITHOUT 02/24/2018 JAYESH WOOD DO Ot M25.512 PAIN IN LEFT SHOULDER 02/24/2018 JAYESH WOOD DO Ot Z79.82 LINE CONTROLLER (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 OF ASPIRIN 02/24/2018 JAYSEH WOOD DO Ot Z79.84 USP (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 OF ORAL HYPOGLYC 02/24/2018 JAYESH [...] TYPE 2 DIABETES MELLITUS WITHOUT COMPLIC 02/25/2018 JAYESH WOOD DO Ot I10 ESSENTIAL (PRIMARY) HYPERTENSION 02/25/2018 JAYESH WOOD DO Ot I25.10 ATHSCL HEART DISEASE OF [place] CORONARY 02/25/2018 JAYESH WOOD DO Ot J44.9 CHRONIC OBSTRUCTIVE PULMONARY DISEASE, U 02/25/2018 JAYESH WOOD DO Ot K21.9 GASTRO-ESOPHAGEAL REFLUX DISEASE WITHOUT 02/25/2018 JAYESH WOOD DO Ot M25.512 PAIN IN LEFT SHOULDER 02/25/2018 NINA DACOSTA JAYESH Vaishali Ot Z79.82 LINE CONTROLLER (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 OF ASPIRIN 02/25/2018 NINA JAYESH Vaishali Ot Z79.84 USP (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 OF ORAL HYPOGLYC 02/25/2018 NINA JAYESH K Ot Z85.51 PERSONAL HISTORY OF MALIGNANT NEOPLASM O 02/25/2018 NINA DACOSTA JAYESH K Ot Z85.828 PERSONAL HISTORY OF OTHER MALIGNANT NEOP 02/25/2018 NINA JAYESH K Ot Z87.891 PERSONAL HISTORY OF NICOTINE DEPENDENCE 02/25/2018 NINA DACOSTA JAYESH Vaishali Ot Z88.8 ALLERGY STATUS TO OTH DRUG/MEDS/BIOL SUB 02/25/2018 NINA DACOSTA JAYESH Tom Ot Z95.1 PRESENCE OF AORTOCORONARY BYPASS GRAFT 03/21/2018 NINA DACOSTA JAYESH Tom Ot E11.9 TYPE 2 DIABETES MELLITUS WITHOUT COMPLIC 03/21/2018 NINA DACOSTA JAYESH Vaishali Ot I10 ESSENTIAL (PRIMARY) HYPERTENSION 03/21/2018 NINA DCAOSTA JAYESH Tom Ot I25.10 ATHSCL HEART DISEASE OF [place] CORONARY 03/21/2018 JAYESH WOOD DO Ot J44.9 CHRONIC OBSTRUCTIVE PULMONARY DISEASE, U 03/21/2018 JAYESH WOOD DO Ot K21.9 GASTRO-ESOPHAGEAL REFLUX DISEASE WITHOUT 03/21/2018 NINA DACOSTA JAYESH Tom Ot M25.512 PAIN IN LEFT SHOULDER 03/21/2018 NINA DACOSTA JAYESH Vaishali Ot Z79.82 LINE CONTROLLER (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 OF ASPIRIN 03/21/2018 NINA JAYESH K Ot Z79.84 LINE CONTROLLER (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 OF ORAL HYPOGLYC 03/21/2018 NINA JAYESH K Ot Z85.51 PERSONAL HISTORY OF MALIGNANT NEOPLASM O 03/21/2018 NINA TATOA Vaishali Ot Z85.828 PERSONAL HISTORY OF OTHER MALIGNANT NEOP 03/21/2018 JAYESH WOOD DO Ot Z87.891 PERSONAL HISTORY OF NICOTINE DEPENDENCE 03/21/2018 JAYESH WOOD DO Ot Z88.8 ALLERGY STATUS TO OT DRUG/MEDS/BIOL SUB 03/21/2018 JAYESH WOOD DO Ot Z95.1 PRESENCE OF AORTOCORONARY BYPASS GRAFT 04/24/2018 Pushpa CHAVARRIA MD Ot E11.649 TYPE 2 DIABETES MELLITUS WITH HYPOGLYCEM 04/24/2018 Pushpa CHAVARRIA MD Ot E78.00 PURE HYPERCHOLESTEROLEMIA, UNSPECIFIED 04/24/2018 Pushpa CHAVARRIA MD, Ot E87 .6 HYPOKALEMIA 04/24/2018 Pushpa CHAVARRIA MD, Ot G47.30 SLEEP APNEA, UNSPECIFIED 04/24/2018 Pushpa CHAVARRIA MD Ot I10 ESSENTIAL (PRIMARY) HYPERTENSION 04/24/2018 Pushpa CHAVARRIA MD Ot 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 04/24/2018 Pushpa CHAVARRIA MD Ot I25.10 ATHSCL HEART DISEASE OF [place] CORONARY 04/24/2018 Pushpa CHAVARRIA MD, Ot 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 04/24/2018 Pushpa CHAVARRIA MD Ot I48.91 UNSPECIFIED ATRIAL FIBRILLATION 04/24/2018 Pushpa CHAVARRIA MD, Ot J44 .9 CHRONIC OBSTRUCTIVE PULMONARY DISEASE, U 04/24/2018 Pushpa CHAVARRIA MD, Ot K21 .9 GASTRO-ESOPHAGEAL REFLUX DISEASE WITHOUT 04/24/2018 Pushpa CHAVARRIA MD Ot K29.70 GASTRITIS, UNSPECIFIED, WITHOUT BLEEDING 04/24/2018 Pushpa CHAVARRIA MD Ot N40 .0 BENIGN PROSTATIC HYPERPLASIA WITHOUT LOW 04/24/2018 Pushpa CHAVARRIA MD, Ot R57 .0 CARDIOGENIC SHOCK 04/24/2018 Pushpa CHAVARRIA MD, Ot Z79 .4 USP (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 OF INSULIN 04/24/2018 Pushpa CHAVARRIA MD, Ot Z85.51 PERSONAL HISTORY OF MALIGNANT NEOPLASM O 04/24/2018 Pushpa CHAVARRIA MD, Ot Z85.828 PERSONAL HISTORY OF OTHER MALIGNANT NEOP 04/24/2018 Pushpa CHAVARRIA MD Ot Z87.11 PERSONAL HISTORY OF PEPTIC ULCER DISEASE 04/24/2018 Pushpa CHAVARRIA MD, Ot Z87.891 PERSONAL HISTORY OF NICOTINE DEPENDENCE 04/24/2018 Pushpa CHAVARRIA MD, Ot Z95 .1 PRESENCE OF AORTOCORONARY BYPASS GRAFT 04/24/2018 Pushpa CHAVARRIA MD Ot Z95 .5 PRESENCE OF CORONARY ANGIOPLASTY IMPLANT 04/24/2018 Pushpa CHAVARRIA MD Ot Z99.81 DEPENDENCE ON SUPPLEMENTAL OXYGEN 07/03/2018 Pushpa CHAVARRIA MD Ot 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 07/10/2018 Pushpa CHAVARRIA MD, Ot 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 07/27/2018 MANUEL CHAVARRIA MD Ot E11 .9 TYPE 2 DIABETES MELLITUS WITHOUT COMPLIC 07/27/2018 MANUEL CHAVARRIA MD Ot I25.10 ATHSCL HEART DISEASE OF [place] CORONARY 07/27/2018 MANUEL CHAVARRIA MD R Ot I35 .0 NONRHEUMATIC AORTIC (VALVE) STENOSIS 07/27/2018 MANUEL CHAVARRIA MD R Ot I42 .9 CARDIOMYOPATHY, UNSPECIFIED 07/27/2018 MANUEL CHAVARRIA MD R Ot I51 .7 CARDIOMEGALY 08/17/2018 MANUEL CHAVARRIA MD Ot E11 .9 TYPE 2 DIABETES MELLITUS WITHOUT COMPLIC 08/17/2018 MANUEL CHAVARRIA MD Ot I25.10 ATHSCL HEART DISEASE OF [place] CORONARY 08/17/2018 MANUEL CHAVARRIA MD R Ot I35 .0 NONRHEUMATIC AORTIC (VALVE) STENOSIS 08/17/2018 MANUEL CHAVARRIA MD R Ot I42 .9 CARDIOMYOPATHY, UNSPECIFIED 08/17/2018 MANUEL CHAVARRIA MD R Ot I51 .7 CARDIOMEGALY 08/19/2018 MANUEL CHAVARRIA MD R Ot E11 .9 TYPE 2 DIABETES MELLITUS WITHOUT COMPLIC 08/19/2018 MANUEL CHAAVRRIA MD R Ot I25.10 ATHSCL HEART DISEASE OF [place] CORONARY 08/19/2018 MANUEL CHAVARRIA MD R Ot I35 .0 NONRHEUMATIC AORTIC (VALVE) STENOSIS 08/19/2018 DEON HU, MANUEL Dolan Ot I42 .9 CARDIOMYOPATHY, UNSPECIFIED 08/19/2018 DEON HU, MANUEL Dolan Ot I51 .7 CARDIOMEGALY 08/23/2018 DEON HU, Pushpa MAKI Ot 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 08/24/2018 DEON HU, Pushpa MAKI Ot 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 09/09/2018 DEON HU, Pushpa MAKI Ot 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 09/25/2018 DEON HU, Pushpa MAKI Ot 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 09/25/2018 DEON HU, M SHANTHI Ot Z09 ENCNTR FOR F/U EXAM AFT TRTMT FOR COND O 11/22/2018 DEON HU, Pushpa MAKI Ot 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 11/22/2018 DEON HU, Pushpa MAKI Ot Z09 ENCNTR FOR F/U EXAM AFT TRTMT FOR COND O 11/25/2018 DEON HU, Pushpa MAKI Ot 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 11/25/2018 DEON HU, Pushpa MAKI Ot Z09 ENCNTR FOR F/U EXAM AFT TRTMT FOR COND O 12/15/2018 XIOMARA BETTENCOURT DO Ot M47.812 SPONDYLOSIS W/O MYELOPATHY OR RADICULOPA 12/23/2018 ARAM MARX DO Ot E16 .2 HYPOGLYCEMIA, UNSPECIFIED 12/24/2018 PAUL PHAN DO Ot 414.00 CORON ATHEROSCLER NOS TYPE VESSEL, NATIV 12/24/2018 PAUL PHAN DO Ot 794.30 ABN CARDIOVASC STUDY NOS 12/24/2018 LUCILLE ISLAS MD Ot 724.0 2 SPINAL STENOSIS, LUMBAR REG, W/OUT NEURO 12/24/2018 XIOMARA BETTENCOURT DO Ot 433.30 MULT BILTRAL ARTERY OCCLUSION WO CEREBRA 12/24/2018 XIOMARA BETTENCOURT DO Ot I73.9 PERIPHERAL VASCULAR DISEASE, UNSPECIFIED 12/24/2018 XIOMARA BETTENCOURT DO Ot I70.213 ATHSCL [place] ARTERIES OF EXTRM W INTRMT 12/24/2018 EARNEST LO APRN Ot J44.9 CHRONIC OBSTRUCTIVE PULMONARY DISEASE, U 12/24/2018 XIOMARA BETTENCOURT DO Ot M79.661 PAIN IN RIGHT LOWER LEG 12/24/2018 XIOMARA BETTENCOURT DO Ot M79.662 PAIN IN LEFT LOWER LEG 12/24/2018 IVAN AMIN APRN Ot J44.9 CHRONIC OBSTRUCTIVE PULMONARY DISEASE, U 12/24/2018 IVAN AMIN APRN Ot M79.89 OTHER SPECIFIED SOFT TISSUE DISORDERS 12/24/2018 MANUEL CHAVARRIA MD Ot E11 .9 TYPE 2 DIABETES MELLITUS WITHOUT COMPLIC 12/24/2018 MANUEL CHAVARRIA MD, Ot I25.10 ATHSCL HEART DISEASE OF [place] CORONARY 12/24/2018 MANUEL CHAVARRIA MD, Ot I35 .0 NONRHEUMATIC AORTIC (VALVE) STENOSIS 12/24/2018 MANUEL CHAVARRIA MD, Ot I42 .9 CARDIOMYOPATHY, UNSPECIFIED 12/24/2018 MANUEL CHAVARRIA MD, Ot I51 .7 CARDIOMEGALY 12/24/2018 PAUL PHAN DO, Ot S46.002A UNSP INJ MUSC/TEND THE ROTATOR CUFF OF L 12/24/2018 PAUL PHAN DO, Ot Z53.8 PROCEDURE AND TREATMENT NOT CARRIED OUT 12/24/2018 DEON HU, Pushpa MAKI Ot 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 12/24/2018 DEON HU, Pushpa MAKI Ot Z09 ENCNTR FOR F/U EXAM AFT TRTMT FOR COND O 12/24/2018 XIOMARA BETTENCOURT DO, Ot M47.812 SPONDYLOSIS W/O MYELOPATHY OR RADICULOPA 12/24/2018 XIOMARA BETTENCOURT DO, Ot M47.812 SPONDYLOSIS W/O MYELOPATHY OR RADICULOPA 01/14/2019 ARAM MARX DO Ot E16 .2 HYPOGLYCEMIA, UNSPECIFIED 02/02/2019 PAUL PHAN DO, Ot M16.12 UNILATERAL PRIMARY OSTEOARTHRITIS, LEFT 02/02/2019 PAUL PHAN DO, Ot S70.02XA CONTUSION OF LEFT HIP, INITIAL ENCOUNTER 03/15/2019 PAUL PHAN DO, Ot R42 DIZZINESS AND GIDDINESS 03/18/2019 PAUL PHAN DO J Ot R42 DIZZINESS AND GIDDINESS 03/18/2019 PHAN DO, PAUL Dinh Ot R42 DIZZINESS AND GIDDINESS 04/08/2019 PHAN DOPAUL Ot R42 DIZZINESS AND GIDDINESS 04/15/2019 PHAN DO, PAUL Dinh Ot R42 DIZZINESS AND GIDDINESS 05/13/2019 PHAN DOPAUL Ot J18.9 PNEUMONIA, UNSPECIFIED ORGANISM 06/01/2019 PAUL PHAN DO, Ot J18.9 PNEUMONIA, UNSPECIFIED ORGANISM 08/04/2019 JANEL HU, LUCILLE Dinh Ot 724.0 2 SPINAL STENOSIS, LUMBAR REG, W/OUT NEURO 08/04/2019 ORENDER DO, XIOMARA S Ot 433.30 MULT BILTRAL ARTERY OCCLUSION WO CEREBRA 08/04/2019 ORENDER DO, XIOMARA S Ot I73.9 PERIPHERAL VASCULAR DISEASE, UNSPECIFIED 08/04/2019 ORENDER DO, XIOMARA S Ot I70.213 ATHSCL [place] ARTERIES OF EXTRM W INTRMT 08/04/2019 EARNEST LO GUIDE TOUR Ot J44.9 CHRONIC OBSTRUCTIVE PULMONARY DISEASE, U 08/04/2019 ORENDER DO, XIOMARA S Ot M79.661 PAIN IN RIGHT LOWER LEG 08/04/2019 RENONDER DO, XIOMARA S Ot M79.662 PAIN IN LEFT LOWER LEG 08/04/2019 IVAN AMIN APRN Ot J44.9 CHRONIC OBSTRUCTIVE PULMONARY DISEASE, U 08/04/2019 IVAN AMIN APRN Ot M79.89 OTHER SPECIFIED SOFT TISSUE DISORDERS 08/04/2019 MANUEL CHAVARRIA MD Ot E11 .9 TYPE 2 DIABETES MELLITUS WITHOUT COMPLIC 08/04/2019 MANUEL CHAVARRIA MD Ot I25.10 ATHSCL HEART DISEASE OF [place] CORONARY 08/04/2019 MANUEL CHAVARRIA MD Ot I35 .0 NONRHEUMATIC AORTIC (VALVE) STENOSIS 08/04/2019 MANUEL CHAVARRIA MD Ot I42 .9 CARDIOMYOPATHY, UNSPECIFIED 08/04/2019 MANUEL CHAVARRIA MD Ot I51 .7 CARDIOMEGALY 08/04/2019 PAUL PHAN DO Ot S46.002A UNSP INJ MUSC/TEND THE ROTATOR CUFF OF L 08/04/2019 PAUL PHAN DO Ot Z53.8 PROCEDURE AND TREATMENT NOT CARRIED OUT 08/04/2019 DEON HU, Pushpa MAKI Ot 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 08/04/2019 DEON HU, M SHANTHI Noble Z09 ENCNTR FOR F/U EXAM AFT TRTMT FOR COND O 08/04/2019 XIOMARA BETTENCOURT DO Ot M47.812 SPONDYLOSIS W/O MYELOPATHY OR RADICULOPA 08/04/2019 PAUL PHAN DO Ot M16.12 UNILATERAL PRIMARY OSTEOARTHRITIS, LEFT 08/04/2019 PAUL PHAN DO Ot S70.02XA CONTUSION OF LEFT HIP, INITIAL ENCOUNTER 08/04/2019 PAUL PHAN DO Ot R42 DIZZINESS AND GIDDINESS 08/04/2019 PAUL PHAN DO, Ot J18.9 PNEUMONIA, UNSPECIFIED ORGANISM 08/05/2019 IVAN AMIN APRN Ot G47.33 OBSTRUCTIVE SLEEP APNEA (ADULT) (PEDIATR 08/05/2019 IVAN AMIN APRN Ot I51.7 CARDIOMEGALY 08/05/2019 IVAN AMIN APRN Ot 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 08/05/2019 IVAN AMIN APRN Ot J18.8 OTHER PNEUMONIA, UNSPECIFIED ORGANISM 08/05/2019 IVAN AMIN APRN Ot J30.9 ALLERGIC RHINITIS, UNSPECIFIED 08/05/2019 IVAN AMIN APRN Ot J98.4 OTHER DISORDERS OF LUNG 08/05/2019 IVAN AMIN APRN Ot K76.0 FATTY (CHANGE OF) LIVER, NOT ELSEWHERE C 08/05/2019 IVAN AMIN APRN Ot M19.90 UNSPECIFIED OSTEOARTHRITIS, UNSPECIFIED 08/05/2019 IVAN AMIN APRN Ot N28.1 CYST OF KIDNEY, ACQUIRED 08/05/2019 IVAN AMIN APRN Ot R91.1 SOLITARY PULMONARY NODULE 08/05/2019 IVAN AMIN APRN Ot Z95.1 PRESENCE OF AORTOCORONARY BYPASS GRAFT 08/20/2019 IVAN AMIN APRN Ot G47.33 OBSTRUCTIVE SLEEP APNEA (ADULT) (PEDIATR 08/21/2019 JANEL HU, LUCILLE Dinh Ot 724.0 2 SPINAL STENOSIS, LUMBAR REG, W/OUT NEURO 08/21/2019 [facility] XIOMARA S Ot 433.30 MULT BILTRAL ARTERY OCCLUSION WO CEREBRA 08/21/2019 OREND DO, XIOMARA S Ot I73.9 PERIPHERAL VASCULAR DISEASE, UNSPECIFIED 08/21/2019 [facility], XIOMARA S Ot I70.213 ATHSCL [place] ARTERIES OF EXTRM W INTRMT 08/21/2019 EARNEST LO APRN Ot J44.9 CHRONIC OBSTRUCTIVE PULMONARY DISEASE, U 08/21/2019 [facility], XIOM[facility] S Ot M79.661 PAIN IN RIGHT LOWER LEG 08/21/2019 [facility], XIOMARA S Ot M79.662 PAIN IN LEFT LOWER LEG 08/21/2019 IVAN AMIN APRN Ot J44.9 CHRONIC OBSTRUCTIVE PULMONARY DISEASE, U 08/21/2019 IVAN AMIN APRN Ot M79.89 OTHER SPECIFIED SOFT TISSUE DISORDERS 08/21/2019 MANUEL CHAVARRIA MD Ot E11 .9 TYPE 2 DIABETES MELLITUS WITHOUT COMPLIC 08/21/2019 MANUEL CHAVARRIA MD, Ot I25.10 ATHSCL HEART DISEASE OF [place] CORONARY 08/21/2019 MANUEL CHAVARRIA MD, Ot I35 .0 NONRHEUMATIC AORTIC (VALVE) STENOSIS 08/21/2019 MANUEL CHAVARRIA MD, Ot I42 .9 CARDIOMYOPATHY, UNSPECIFIED 08/21/2019 MANUEL CHAVARRIA MD, Ot I51 .7 CARDIOMEGALY 08/21/2019 PAUL PHAN DO, Ot S46.002A UNSP INJ MUSC/TEND THE ROTATOR CUFF OF L 08/21/2019 PAUL PHAN DO, Ot Z53.8 PROCEDURE AND TREATMENT NOT CARRIED OUT 08/21/2019 Pushpa CHAVARRIA MD, Ot 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 08/21/2019 Pushpa CHAVARRIA MD, Ot Z09 ENCNTR FOR F/U EXAM AFT TRTMT FOR COND O 08/21/2019 [facility], XI[facility] S Ot M47.812 SPONDYLOSIS W/O MYELOPATHY OR RADICULOPA 08/21/2019 PAUL PHAN DO, Ot M16.12 UNILATERAL PRIMARY OSTEOARTHRITIS, LEFT 08/21/2019 PAUL PHAN DO Ot S70.02XA CONTUSION OF LEFT HIP, INITIAL ENCOUNTER 08/21/2019 PAUL PHAN DO Ot R42 DIZZINESS AND GIDDINESS 08/21/2019 PAUL PHAN DO Ot J18.9 PNEUMONIA, UNSPECIFIED ORGANISM 08/21/2019 IVAN AMIN APRN Ot G47.33 OBSTRUCTIVE SLEEP APNEA (ADULT) (PEDIATR 08/21/2019 IVAN AMIN APRN Ot I51.7 CARDIOMEGALY 08/21/2019 IVAN AMIN APRN Ot 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 08/21/2019 IVAN AMIN APRN Ot J18.8 OTHER PNEUMONIA, UNSPECIFIED ORGANISM 08/21/2019 IVAN AMIN APRN Ot J30.9 ALLERGIC RHINITIS, UNSPECIFIED 08/21/2019 IVAN AMIN APRN Ot J98.4 OTHER DISORDERS OF LUNG 08/21/2019 IVAN AMIN APRN Ot K76.0 FATTY (CHANGE OF) LIVER, NOT ELSEWHERE C 08/21/2019 IVAN AMIN APRN Ot M19.90 UNSPECIFIED OSTEOARTHRITIS, UNSPECIFIED 08/21/2019 IVAN AMIN APRN Ot N28.1 CYST OF KIDNEY, ACQUIRED 08/21/2019 IVAN AMIN APRN Ot R91.1 SOLITARY PULMONARY NODULE 08/21/2019 IVAN AMIN APRN Ot Z95.1 PRESENCE OF AORTOCORONARY BYPASS GRAFT 08/21/2019 IVAN AMIN APRN Ot G47.33 OBSTRUCTIVE SLEEP APNEA (ADULT) (PEDIATR 08/21/2019 JANEL HU, LUCILLE Dinh Ot 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 SPINAL STENOSIS, LUMBAR REG, W/OUT NEURO 08/21/2019 GUILLE BETTENCOURT DOLINE S Ot 433.30 MULT BILTRAL ARTERY OCCLUSION WO CEREBRA 08/21/2019 XIOMARA BETTENCOURT DO S Ot I73.9 PERIPHERAL VASCULAR DISEASE, UNSPECIFIED 08/21/2019 GUILLE BETTENCOURT DOLINE S Ot I70.213 ATHSCL [place] ARTERIES OF EXTRM W INTRMT 08/21/2019 EARNEST LO APRN Ot J44.9 CHRONIC OBSTRUCTIVE PULMONARY DISEASE, U 08/21/2019 XIOMARA BETTENCOURT DO Ot M79.661 PAIN IN RIGHT LOWER LEG 08/21/2019 XIOMRAA BETTENCOURT DO Ot M79.662 PAIN IN LEFT LOWER LEG 08/21/2019 IVAN AMIN APRN Ot J44.9 CHRONIC OBSTRUCTIVE PULMONARY DISEASE, U 08/21/2019 IVAN AMIN APRN Ot M79.89 OTHER SPECIFIED SOFT TISSUE DISORDERS 08/21/2019 MANUEL CHAVARRIA MD Ot E11 .9 TYPE 2 DIABETES MELLITUS WITHOUT COMPLIC 08/21/2019 MANUEL CHAVARRIA MD, Ot I25.10 ATHSCL HEART DISEASE OF [place] CORONARY 08/21/2019 MANUEL CHAVARRIA MD, Ot I35 .0 NONRHEUMATIC AORTIC (VALVE) STENOSIS 08/21/2019 MANUEL CHAVARRIA MD, Ot I42 .9 CARDIOMYOPATHY, UNSPECIFIED 08/21/2019 MANUEL CHAVARRIA MD, Ot I51 .7 CARDIOMEGALY 08/21/2019 PAUL PHAN DO, Ot S46.002A UNSP INJ MUSC/TEND THE ROTATOR CUFF OF L 08/21/2019 PAUL PHAN DO, Ot Z53.8 PROCEDURE AND TREATMENT NOT CARRIED OUT 08/21/2019 DEON HU, Pushpa MAKI Ot 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 08/21/2019 DEON HU, Pushpa MAKI Ot Z09 ENCNTR FOR F/U EXAM AFT TRTMT FOR COND O 08/21/2019 XIOMARA BETTENCOURT DO Ot M47.812 SPONDYLOSIS W/O MYELOPATHY OR RADICULOPA 08/21/2019 PAUL PHAN DO, Ot M16.12 UNILATERAL PRIMARY OSTEOARTHRITIS, LEFT 08/21/2019 PAUL PHAN DO, Ot S70.02XA CONTUSION OF LEFT HIP, INITIAL ENCOUNTER 08/21/2019 PAUL PHAN DO, Ot R42 DIZZINESS AND GIDDINESS 08/21/2019 PAUL PHAN DO, Ot J18.9 PNEUMONIA, UNSPECIFIED ORGANISM 08/21/2019 IVAN AMIN APRN Ot G47.33 OBSTRUCTIVE SLEEP APNEA (ADULT) (PEDIATR 08/21/2019 IVAN AMIN APRN Ot I51.7 CARDIOMEGALY 08/21/2019 BRENNAN, IVAN E GUIDE TOUR Ot 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 08/21/2019 IVAN AMIN GUIDE TOUR Ot J18.8 OTHER PNEUMONIA, UNSPECIFIED ORGANISM 08/21/2019 IVAN AMIN GUIDE TOUR Ot J30.9 ALLERGIC RHINITIS, UNSPECIFIED 08/21/2019 IVAN AMIN E GUIDE TOUR Ot J98.4 OTHER DISORDERS OF LUNG 08/21/2019 IVAN AMIN GUIDE TOUR Ot K76.0 FATTY (CHANGE OF) LIVER, NOT ELSEWHERE C 08/21/2019 IVAN AMIN GUIDE TOUR Ot M19.90 UNSPECIFIED OSTEOARTHRITIS, UNSPECIFIED 08/21/2019 IVAN AMIN E GUIDE TOUR Ot N28.1 CYST OF KIDNEY, ACQUIRED 08/21/2019 IVAN AMIN GUIDE TOUR Ot R91.1 SOLITARY PULMONARY NODULE 08/21/2019 IVAN AMIN GUIDE TOUR Ot Z95.1 PRESENCE OF AORTOCORONARY BYPASS GRAFT 08/21/2019 IVAN AMIN GUIDE TOUR Ot G47.33 OBSTRUCTIVE SLEEP APNEA (ADULT) (PEDIATR 08/22/2019 IVAN AMIN E GUIDE TOUR Ot G47.10 HYPERSOMNIA, UNSPECIFIED 08/22/2019 IVAN AMIN E GUIDE TOUR Ot G47.33 OBSTRUCTIVE SLEEP APNEA (ADULT) (PEDIATR 08/22/2019 IVAN AMIN E GUIDE TOUR Ot G47.36 SLEEP RELATED HYPOVENTILATION IN CONDITI 08/22/2019 IVAN AMIN E GUIDE TOUR Ot G47.50 PARASOMNIA, UNSPECIFIED 08/24/2019 IVAN AMIN E GUIDE TOUR Ot G47.10 HYPERSOMNIA, UNSPECIFIED 08/24/2019 IVAN AMIN E GUIDE TOUR Ot G47.33 OBSTRUCTIVE SLEEP APNEA (ADULT) (PEDIATR 08/24/2019 IVAN AMIN E GUIDE TOUR Ot G47.36 SLEEP RELATED HYPOVENTILATION IN CONDITI 08/24/2019 IVAN AMIN E GUIDE TOUR Ot G47.50 PARASOMNIA, UNSPECIFIED 08/31/2019 KAMILLE AIMNINE E GUIDE TOUR Ot G47.33 OBSTRUCTIVE SLEEP APNEA (ADULT) (PEDIATR 08/31/2019 IVAN AMIN E GUIDE TOUR Ot I51.7 CARDIOMEGALY 08/31/2019 IVAN AMIN GUIDE TOUR Ot 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 08/31/2019 IVAN AMIN GUIDE TOUR Ot J18.8 OTHER PNEUMONIA, UNSPECIFIED ORGANISM 08/31/2019 IVAN AMIN GUIDE TOUR Ot J30.9 ALLERGIC RHINITIS, UNSPECIFIED 08/31/2019 IVAN AMIN GUIDE TOUR Ot J98.4 OTHER DISORDERS OF LUNG 08/31/2019 IVAN AMIN GUIDE TOUR Ot K76.0 FATTY (CHANGE OF) LIVER, NOT ELSEWHERE C 08/31/2019 IVAN AMIN GUIDE TOUR Ot M19.90 UNSPECIFIED OSTEOARTHRITIS, UNSPECIFIED 08/31/2019 IVAN AMIN E GUIDE TOUR Ot N28.1 CYST OF KIDNEY, ACQUIRED 08/31/2019 IVAN AMIN GUIDE TOUR Ot R91.1 SOLITARY PULMONARY NODULE 08/31/2019 IVAN AMIN GUIDE TOUR Ot Z95.1 PRESENCE OF AORTOCORONARY BYPASS GRAFT 09/02/2019 IVAN AMIN GUIDE TOUR Ot G47.33 OBSTRUCTIVE SLEEP APNEA (ADULT) (PEDIATR 09/02/2019 IVAN AMIN GUIDE TOUR Ot I51.7 CARDIOMEGALY 09/02/2019 IVAN AMIN GUIDE TOUR Ot 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 09/02/2019 IVAN AMIN GUIDE TOUR Ot J18.8 OTHER PNEUMONIA, UNSPECIFIED ORGANISM 09/02/2019 IVAN AMIN GUIDE TOUR Ot J30.9 ALLERGIC RHINITIS, UNSPECIFIED 09/02/2019 IVAN AMIN GUIDE TOUR Ot J98.4 OTHER DISORDERS OF LUNG 09/02/2019 IVAN AMIN GUIDE TOUR Ot K76.0 FATTY (CHANGE OF) LIVER, NOT ELSEWHERE C 09/02/2019 IVAN AMIN GUIDE TOUR Ot M19.90 UNSPECIFIED OSTEOARTHRITIS, UNSPECIFIED 09/02/2019 IVAN AMIN GUIDE TOUR Ot N28.1 CYST OF KIDNEY, ACQUIRED 09/02/2019 IVAN AMIN GUIDE TOUR Ot R91.1 SOLITARY PULMONARY NODULE 09/02/2019 IVAN AMIN GUIDE TOUR Ot Z95.1 PRESENCE OF AORTOCORONARY BYPASS GRAFT 09/08/2019 XIOMARA BETTENCOURT DO Ot 433.30 MULT BILTRAL ARTERY OCCLUSION WO CEREBRA 09/08/2019 XIOMARA BETTENCOURT DO S Ot I73.9 PERIPHERAL VASCULAR DISEASE, UNSPECIFIED 09/08/2019 [facility], XIOMARA Akers Ot I70.213 ATHSCL [place] ARTERIES OF EXTRM W INTRMT 09/08/2019 EARNEST LO ROBERT Ot J44.9 CHRONIC OBSTRUCTIVE PULMONARY DISEASE, U 09/08/2019 [facility], XIOMARA Akers Ot M79.661 PAIN IN RIGHT LOWER LEG 09/08/2019 [facility] Akers Ot M79.662 PAIN IN LEFT LOWER LEG 09/08/2019 IVAN AMIN APRN Ot J44.9 CHRONIC OBSTRUCTIVE PULMONARY DISEASE, U 09/08/2019 IVAN AMIN APRN Ot M79.89 OTHER SPECIFIED SOFT TISSUE DISORDERS 09/08/2019 MANUEL CHAVARRIA MD, Ot E11 .9 TYPE 2 DIABETES MELLITUS WITHOUT COMPLIC 09/08/2019 MANUEL CHAVARRIA MD, Ot I25.10 ATHSCL HEART DISEASE OF [place] CORONARY 09/08/2019 MANUEL CHAVARRIA MD, Ot I35 .0 NONRHEUMATIC AORTIC (VALVE) STENOSIS 09/08/2019 MANUEL CHAVARRIA MD, Ot I42 .9 CARDIOMYOPATHY, UNSPECIFIED 09/08/2019 MANUEL CHAVARRIA MD, Ot I51 .7 CARDIOMEGALY 09/08/2019 PAUL PHAN DO, Ot S46.002A UNSP INJ MUSC/TEND THE ROTATOR CUFF OF L 09/08/2019 PAUL PHAN DO, Ot Z53.8 PROCEDURE AND TREATMENT NOT CARRIED OUT 09/08/2019 Pushpa CHAVARRIA MD, Ot 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 09/08/2019 DEON HU, Pushpa MAKI Ot Z09 ENCNTR FOR F/U EXAM AFT TRTMT FOR COND O 09/08/2019 REED XIOMARA DACOSTA Ot M47.812 SPONDYLOSIS W/O MYELOPATHY OR RADICULOPA 09/08/2019 PAUL PHAN DO, Ot M16.12 UNILATERAL PRIMARY OSTEOARTHRITIS, LEFT 09/08/2019 PAUL PHAN DO, Ot S70.02XA CONTUSION OF LEFT HIP, INITIAL ENCOUNTER 09/08/2019 PAUL PHAN DO, Ot R42 DIZZINESS AND GIDDINESS 09/08/2019 PAUL PHAN DO, Ot J18.9 PNEUMONIA, UNSPECIFIED ORGANISM 09/08/2019 IVAN AMIN APRN Ot G47.33 OBSTRUCTIVE SLEEP APNEA (ADULT) (PEDIATR 09/08/2019 IVAN AMIN APRN Ot I51.7 CARDIOMEGALY 09/08/2019 IVAN AMIN APRN Ot 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 09/08/2019 IVAN AMIN APRN Ot J18.8 OTHER PNEUMONIA, UNSPECIFIED ORGANISM 09/08/2019 IVAN AMIN APRN Ot J30.9 ALLERGIC RHINITIS, UNSPECIFIED 09/08/2019 IVAN AMIN APRN Ot J98.4 OTHER DISORDERS OF LUNG 09/08/2019 IVAN AMIN APRN Ot K76.0 FATTY (CHANGE OF) LIVER, NOT ELSEWHERE C 09/08/2019 IVAN AMIN APRN Ot M19.90 UNSPECIFIED OSTEOARTHRITIS, UNSPECIFIED 09/08/2019 IVAN AMIN GUIDE TOUR Ot N28.1 CYST OF KIDNEY, ACQUIRED 09/08/2019 IVAN AMIN APRN Ot R91.1 SOLITARY PULMONARY NODULE 09/08/2019 IVAN AMIN APRN Ot Z95.1 PRESENCE OF AORTOCORONARY BYPASS GRAFT 09/21/2019 W E11.65 Typ e 2 diabetes mellitus with hyperglycemia Xiomara Bettencourt S. 09/21/2019 W E78.5 Hype rlipidemia, unspecified Renondkendrick, Xiomara S. 09/21/2019 W I10 Essent ial (primary) hypertension Xiomara Bettencourt S. 09/21/2019 W I48.0 Paro xysmal atrial fibrillation Guille Bettencourtline S. 09/21/2019 W J44.9 Apartment Property Manager roscoe obstructive pulmonary disease, unspecified Renonder Xiomara S. 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 09/30/2019 PAUL PHAN DO Ot I25.10 ATHSCL HEART DISEASE OF [place] CORONARY 09/30/2019 PAUL PHAN DO, Ot I25.2 OLD MYOCARDIAL INFARCTION 09/30/2019 PAUL PHAN DO, Ot I51.7 CARDIOMEGALY 09/30/2019 PHAN DO, PAUL J Ot J44.9 CHRONIC OBSTRUCTIVE PULMONARY DISEASE, U 10/12/2019 W G47.33 Obs tructive sleep apnea Orender, Xiomara S. 10/12/2019 W I95.9 Hypo tension Orender, Xiomara S. 10/12/2019 W R06.09 Oth er dyspnea and respiratory abnormality Orender, Xiomara S. 10/12/2019 W G47.33 Obs tructive sleep apnea Orender, Xiomara S. 10/12/2019 W I95.9 Hypo tension Orender, Xiomara S. 10/12/2019 W R06.09 Oth er dyspnea and respiratory abnormality Orender, Xiomara S. 10/20/2019 W E11.65 DM w/o complication type II, uncontrolled Orender, Xiomara S. 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 10/20/2019 W R60.9 Edema Orender, Xiomara S. 10/20/2019 W E11.65 DM w/o complication type II, uncontrolled Orender, Xiomara S. 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 10/20/2019 W R60.9 Edema Orender, Xiomara S. 10/27/2019 W E11.65 DM w/o complication type II, uncontrolled Orender, Xiomara S. 10/27/2019 W R06.09 Oth er dyspnea and respiratory abnormality Orender, Xiomara S. 10/27/2019 W E11.65 DM w/o complication type II, uncontrolled Orender, Xiomara S. 10/27/2019 W R06.09 Oth er dyspnea and respiratory abnormality Orender, Xiomara S. 12/07/2019 W K21.9 Esop hageal reflux Orender, Xiomara S. 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 12/07/2019 W K21.9 Esop hageal reflux Orender, Xiomara S. 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 12/08/2019 W N28.1 Mckenna l cyst, left Orender, Xiomara S. 12/16/2019 ORENDER DO, XIOMARA S Ot N28.1 CYST OF KIDNEY, ACQUIRED 01/05/2020 ORENDER DO, XIOMARA S Ot N28.1 CYST OF KIDNEY, ACQUIRED 01/12/2020 W E10.9 Diab etes mellitus type 1, controlled, insulin dependent Orender, Xiomara S. 01/12/2020 W G47.33 Obs tructive sleep apnea (adult) (pediatric) Orender, Xiomara S. 01/12/2020 W J30.9 Jf rgic rhinitis Orender, Xiomara S. 01/12/2020 W K21.9 Esop hageal reflux Orender, Xiomara S. 01/12/2020 W Z00.00 Enc ounter for general adult medical examination without abnormal findings Renonder, Xiomara S. 01/12/2020 W E10.9 Diab etes mellitus type 1, controlled, insulin dependent Orender, Xiomara S. 01/12/2020 W G47.33 Obs tructive sleep apnea (adult) (pediatric) Orender, Xiomara S. 01/12/2020 W J30.9 Jf rgic rhinitis Orender, Xiomara S. 01/12/2020 W K21.9 Esop hageal reflux Orender, Xiomara S. 01/12/2020 W Z00.00 Enc ounter for general adult medical examination without abnormal findings Guille Bettencourtline S. 01/18/2020 ORENDER DO, XIOMARA S Ot N28.1 CYST OF KIDNEY, ACQUIRED Procedures Code Description Performed By Per [facility] On [id number] ME ASURE OF CARDIAC SAMPL PRESSURE, L H 04/22/2018 [id number] FL UOROSCOPY OF MULT COR ART USING L OSM 04/22/2018 [id number] FL UOROSCOPY OF MULT COR A GRAFT USING L 04/22/2018 [id number] FL UOROSCOPY OF LEFT HEART USING LOW OSMO 04/22/2018 [id number] FL UOROSCOPY OF THORACIC AORTA USING LOW 04/22/2018 Results Test Result Range Capillary blood glucose measurement by g lucometer (mass/volume) - 04/22/18 08:09 Capillary blood glucose measurement by glucometer (mas s/volume) 43 mg/dL 70-110 Complete blood count (CBC) with automate d white blood cell (WBC) differential - 04/22/18 08:41 Blood leukocytes automated count (number/volume) 11.9 10*3/uL 4.3-11.0 Blood erythrocytes automated count (number/volume) 4.88 10*6/uL 4.35-5.85 Venous blood hemoglobin measurement (mass/volume) 14.0 g/dL 13.3-17.7 Blood hematocrit (volume fraction) 40 % 40-54 Automated erythrocyte mean corpuscular volume 82 [ foz_us] 80-99 Automated erythrocyte mean corpuscular h emoglobin (mass per erythrocyte) 29 pg 25-34 Automated erythrocyte mean corpuscular h emoglobin concentration measurement (mass/volume) 35 g/dL 32-36 Automated erythrocyte distribution width ratio 15. 5 % 10.0- 14.5 Automated blood platelet count [...] 10*3 1.0-4.0 Blood monocytes automated count (number/volume) 1. 2 10*3 0.0-1.0 Automated eosinophil count 0.5 10*3/uL 0 .0-0.3 Automated blood basophil count (count/volume) 0.0 10*3/uL 0.0-0.1 Magnesium - 04/22/18 08:41 Magnesium 2.0 mg/dL 1.8-2.4 PT panel in platelet poor plasma by coag ulation assay - 04/22/18 08:41 Prothrombin time (PT) in platelet poor plasma by coagu lation assay 13.6 s 12.2-14.7 INR in platelet poor plasma or blood by coagulation as say 1.0 0.8-1.4 Activated partial thromboplastin time (a PTT) in platelet poor plasma bycoagulation assay - 04/22/18 08:41 Activated partial thromboplastin time (a PTT) in platelet poor plasma bycoagulation assay 29 s 24-35 Comprehensive metabolic panel - 04/22/18 08:41 Serum or plasma sodium measurement (moles/volume) 139 mmol/L 135-145 Serum or plasma potassium measurement (moles/volume) 3.0 mmol/L 3.6-5.0 Serum or plasma chloride measurement (moles/volume) 104 mmol/L 98-107 Carbon dioxide 20 mmol/L 21-32 Serum or plasma anion gap determination (moles/volume) 15 mmol/L 5-14 Serum or plasma urea nitrogen measurement (mass/volume ) 19 mg/dL 7-18 Serum or plasma creatinine measurement (mass/volume) 1.17 mg/dL 0.60-1.30 Serum or plasma urea nitrogen/creatinine mass ratio 16 NRG Serum or plasma creatinine measurement w ith calculation of estimated glomerular filtration rate > NRG Serum or plasma glucose measurement (mass/volume) 105 mg/dL 70-105 Serum or plasma calcium measurement (mass/volume) 9.3 mg/dL 8.5-10.1 Serum or plasma total bilirubin measurement (mass/volu me) 0.5 mg/dL 0.1-1.0 Serum or plasma alkaline phosphatase lizbeth surement (enzymatic activity/volume) 50 U/L 40-136 Serum or plasma aspartate aminotransfera se measurement (enzymatic activity/volume) 26 U/L 5-34 Serum or plasma alanine aminotransferase measurement (enzymatic activity/volume) 27 U/L 0-55 Serum or plasma protein measurement (mass/volume) 7.2 g/dL 6.4-8.2 Serum or plasma albumin measurement (mass/volume) 4.5 g/dL 3.2-4.5 CALCIUM CORRECTED 8.9 mg/dL 8.5-10.1 Myoglobin, serum - 04/22/18 08:41 Myoglobin, serum 205.8 ng/mL 10.0-92.0 Serum or plasma troponin i.cardiac measu rement (mass/volume) - 04/22/18 08:41 Serum or plasma troponin i.cardiac measurement (mass/v olume) < ng/mL <0.30 Methicillin resistant Staphylococcus aur eus (MRSA) screening culture - 04/22/18 10:50 Methicillin resistant Staphylococcus aureus (MRSA) scr eening culture NEG NRG Capillary blood glucose measurement by g lucometer (mass/volume) - 04/22/18 16:16 Capillary blood glucose measurement by glucometer (mas s/volume) 213 mg/dL 70-110 Comprehensive metabolic panel - 04/22/18 21:33 Serum or plasma sodium measurement (moles/volume) 136 mmol/L 135-145 Serum or plasma potassium measurement (moles/volume) 4.0 mmol/L 3.6-5.0 Serum or plasma chloride measurement (moles/volume) 107 mmol/L 98-107 Carbon dioxide 19 mmol/L 21-32 Serum or plasma anion gap determination (moles/volume) 10 mmol/L 5-14 Serum or plasma urea nitrogen measurement (mass/volume ) 16 mg/dL 7-18 Serum or plasma creatinine measurement (mass/volume) 1.01 mg/dL 0.60-1.30 Serum or plasma urea nitrogen/creatinine mass ratio 16 NRG Serum or plasma creatinine measurement w ith calculation of estimated glomerular filtration rate > NRG Serum or plasma glucose measurement (mass/volume) 206 mg/dL 70-105 Serum or plasma calcium measurement (mass/volume) 8.4 mg/dL 8.5-10.1 Serum or plasma total bilirubin measurement (mass/volu me) 0.4 mg/dL 0.1-1.0 Serum or plasma alkaline phosphatase lizbeth surement (enzymatic activity/volume) 44 U/L 40-136 Serum or plasma aspartate aminotransfera se measurement (enzymatic activity/volume) 64 U/L 5-34 Serum or plasma alanine aminotransferase measurement (enzymatic activity/volume) 27 U/L 0-55 Serum or plasma protein measurement (mass/volume) 6.1 g/dL 6.4-8.2 Serum or plasma albumin measurement (mass/volume) 3.9 g/dL 3.2-4.5 CALCIUM CORRECTED 8.5 mg/dL 8.5-10.1 Serum or plasma lithium measurement (mol es/volume) - 04/22/18 21:33 BNP level 188.6 pg/mL <100.0 Serum or plasma troponin i.cardiac measu rement (mass/volume) - 04/22/18 21:33 Serum or plasma troponin i.cardiac measurement (mass/v olume) 9.07 ng/mL <0.30 Capillary blood glucose measurement by g lucometer (mass/volume) - 04/22/18 21:39 Capillary blood glucose measurement by glucometer (mas s/volume) 183 mg/dL 70-110 Capillary blood glucose measurement by g lucometer (mass/volume) - 04/23/18 01:46 Capillary blood glucose measurement by glucometer (mas s/volume) 49 mg/dL 70-110 Capillary blood glucose measurement by g lucometer (mass/volume) - 04/23/18 02:07 Capillary blood glucose measurement by glucometer (mas s/volume) 76 mg/dL 70-110 Capillary blood glucose measurement by g lucometer (mass/volume) - 04/23/18 02:29 Capillary blood glucose measurement by glucometer (mas s/volume) 132 mg/dL 70-110 Automated blood complete blood count (he mogram) panel - 04/23/18 02:57 Blood leukocytes automated count (number/volume) 7.2 10*3/uL 4.3-11.0 Blood erythrocytes automated count (number/volume) 4.79 10*6/uL 4.35-5.85 Venous blood hemoglobin measurement (mass/volume) 13.3 g/dL 13.3-17.7 Blood hematocrit (volume fraction) 40 % 40-54 Automated erythrocyte mean corpuscular volume 83 [ foz_us] 80-99 Automated erythrocyte mean corpuscular h emoglobin (mass per erythrocyte) 28 pg 25-34 Automated erythrocyte mean corpuscular h emoglobin concentration measurement (mass/volume) 34 g/dL 32-36 Automated erythrocyte distribution width ratio 16. 3 % 10.0- 14.5 Automated blood platelet count (count/volume) 198 10*3/uL 130-400 Automated blood platelet mean volume measurement 11.1 [foz_us] 7.4-10.4 Whole blood basic metabolic panel - 04/06 02/21 02:57 Serum or plasma sodium measurement (moles/volume) 138 mmol/L 135-145 Serum or plasma potassium measurement (moles/volume) 4.0 mmol/L 3.6-5.0 Serum or plasma chloride measurement (moles/volume) 108 mmol/L 98-107 Carbon dioxide 18 mmol/L 21-32 Serum or plasma anion gap determination (moles/volume) 12 mmol/L 5-14 Serum or plasma urea nitrogen measurement (mass/volume ) 14 mg/dL 7-18 Serum or plasma creatinine measurement (mass/volume) 1.01 mg/dL 0.60-1.30 Serum or plasma urea nitrogen/creatinine mass ratio 14 NRG Serum or plasma creatinine measurement w ith calculation of estimated glomerular filtration rate > [...] Serum or plasma cholesterol in HDL measurement (mass/v olume) 50 mg/dL 40-60 Cholesterol in LDL [mass/volume] in serum or plasma by direct assay 73 mg/dL 1-129 Serum or plasma cholesterol in VLDL measurement (mass/ volume) 22 mg/dL 5-40 Serum or plasma troponin i.cardiac measu rement (mass/volume) - 04/23/18 02:57 Serum or plasma troponin i.cardiac measurement (mass/v olume) 8.11 ng/mL <0.30 Capillary blood glucose measurement by g lucometer (mass/volume) - 04/23/18 06:23 Capillary blood glucose measurement by glucometer (mas s/volume) 144 mg/dL 70-110 Capillary blood glucose measurement by g lucometer (mass/volume) - 04/23/18 11:09 Capillary blood glucose measurement by glucometer (mas s/volume) 242 mg/dL 70-110 Capillary blood glucose measurement by g lucometer (mass/volume) - 04/23/18 16:17 Capillary blood glucose measurement by glucometer (mas s/volume) 95 mg/dL 70-110 Capillary blood glucose measurement by g lucometer (mass/volume) - 04/23/18 20:37 Capillary blood glucose measurement by glucometer (mas s/volume) 131 mg/dL 70-110 Capillary blood glucose measurement by g lucometer (mass/volume) - 04/24/18 05:07 Capillary blood glucose measurement by glucometer (mas s/volume) 104 mg/dL 70-110 Capillary blood glucose measurement by g lucometer (mass/volume) - 04/24/18 10:51 Capillary blood glucose measurement by glucometer (mas s/volume) 237 mg/dL 70-110 [id number] - 08/04/19 07:50 Serum or plasma urea nitrogen measurement (mass/volume ) 14 mg/dL 7-18 Serum or plasma creatinine measurement (mass/volume) 1.33 mg/dL 0.60-1.30 Serum or plasma urea nitrogen/creatinine mass ratio 11 NRG Serum or plasma creatinine measurement w ith calculation of estimated glomerular filtration rate 52 NRG Encounters ACCT No. Visit Date/Time Discharge Status Pt. Type Provider Facility Loc./Unit Complaint [id number] 04/11/2017 12:25:00 04/11/2017 23:59: 59 CLS Outpatient PAUL PHAN DO [facility] [id number] 12/13/2019 11:33:00 23:59:59 CLS Outpatient XIOMARA BETTENCOURT DO [facility] RAD LEFT RENAL CYST [id number] 12/08/2019 11:51:00 23:59:59 CLS Outpatient XIOMARA BETTENCOURT DO [facility] RAD HX OF BLADDER C ANCER [id number] 09/08/2019 15:53:00 23:59:59 CLS Outpatient PAUL PHAN DO [facility] RAD [id number] 08/21/2019 19:28:00 04:45:00 DIS Outpatient IVAN AMIN APRN [facility] SLEEP TORRIE [id number] 08/04/2019 07:35:00 23:59:59 CLS Outpatient IVAN AMIN APRN [facility] RT DISORDERS OF LUNG,PNEUMONIA,COUGH,ALLERGIC RHINITI [id number] 05/11/2019 13:52:00 019 23:59:59 CLS Outpatient PAUL PHAN DO [facility] RAD PNEUMONIA [id number] 03/19/2019 12:06:00 23:59:59 CLS Outpatient PAUL PHAN DO [facility] RAD DIZZINESS AND G IDDINESS [id number] 01/11/2019 14:35:00 23:59:59 CLS Outpatient PAUL PHAN DO [facility] RAD CONTUSION TO LE FT HIP [id number] 12/23/2018 09:40:00 10:54:00 DIS Emergency ARAM MARX DO [facility] ER FS HYPOGLYCEMIA [id number] 11/25/2018 12:14:00 23:59:59 CLS Outpatient XIOMARA BETTENCOURT DO [facility] RAD CERVICALGIA [id number] 11/23/2018 09:00:00 23:59:59 CLS Preadmit Pushpa CHAVARRIA MD [facility] CR AMI [id number] 08/24/2018 09:00:00 00:01:00 DIS Outpatient Pushpa CHAVARRIA MD [facility] CR AMI [id number] 08/19/2018 09:24:00 00:01:00 DIS Outpatient Pushpa CHAVARRIA MD [facility] CR AMI [id number] 07/24/2018 11:56:00 23:59:59 CLS Outpatient MANUEL CHAVARRIA MD [facility] RAD CARDIOMYOPATHY, CAD [id number] 06/25/2018 10:05:00 23:59:59 CLS Outpatient PAUL PHAN DO [facility] RAD ROTATOR CUFF IN JURY LT SHOULDER [id number] 06/16/2018 13:24:00 23:59:59 CLS Preadmit Pushpa CHAVARRIA MD [facility] RAD CAD,DM [id number] 06/16/2018 11:22:00 23:59:59 CLS Preadmit Pushpa CHAVARRIA MD [facility] RAD CAD,CAROTID STENOSIS [id number] 04/23/2018 07:37:00 15:40:00 DIS Inpatient Pushpa CHAVARRIA MD [facility] 4TH CHEST PAIN,MD [id number] 02/23/2018 23:17:00 02:38:00 DIS Emergency NINA JAYESH Tom [facility] ER CP [id number] 07/02/2017 14:15:00 23:59:59 CLS Preadmit IVAN AMIN GUIDE TOUR [facility] RT J44.9 COPD [id number] 06/24/2017 09:57:00 23:59:59 CLS Outpatient IVAN AMIN GUIDE TOUR [facility] RAD J44.9 COPD [id number] 06/24/2017 09:39:00 017 23:59:59 CLS Preadmit IVAN AMIN GUIDE TOUR [facility] RAD M79.89 LEG SWEL LING [id number] 04/22/2017 15:45:00 23:59:59 CLS Outpatient XIOMARA BETTENCOURT DO [facility] RAD R UPPER THIGH P AIN, L LOWER LEG REDNESS [id number] 02/11/2016 16:55:00 18:26:00 DIS Emergency BRANDEN MEDINA [facility] ER DOG BITE [id number] 01/15/2016 10:19:00 15:58:00 DIS Outpatient ARAM VASQUEZ MD [facility] REHAB S/P R TKR [id number] 08/08/2015 08:52:00 09:38:00 DIS Outpatient XIOMARA BETTENCOURT DO [facility] REHAB BILATERAL KNEE PAIN; INSTABILITY IN R KNEE [id number] 08/31/2015 12:03:00 02/25/2 016 23:59:59 CLS Outpatient EARNEST LO GUIDE TOUR [facility] RAD COUGH,WHEEZING, COPD [id number] 05/12/2015 11:58:00 015 23:59:59 CLS Outpatient XIOMARA BETTENCOURT DO [facility] RAD LEG PAIN WITH D ECREASED JOON [id number] 05/04/2015 15:11:00 23:59:59 CLS Outpatient XIOMARA BETTENCOURT DO [facility] RAD CLAUDICATION [id number] 08/11/2014 09:59:00 23:59:59 CLS Outpatient XIOMARA BETTENCOURT DO [facility] RAD CAROTID ARTERY STENOSIS [id number] 07/25/2014 17:02:00 015 18:25:00 DIS Emergency DORI AGRAWAL GUIDE TOUR [facility] ER ANIMAL BITE RT INDEX FI NGER [id number] 06/15/2014 08:32:00 014 12:06:00 DIS Outpatient RODRIGEZ MD, DARIEN Mayes [facility] CR STABLE ANGINA [id number] 03/18/2014 09:37:00 014 23:59:59 CLS Outpatient LUCILLE ISLAS MD [facility] RAD LUMBAR STENOSIS [id number] 11/21/2013 07:48:00 014 12:15:00 DIS Inpatient PAUL PHAN DO [facility] ICU CHEST PAIN [id number] 11/15/2013 06:29:00 014 23:59:59 CLS Outpatient PAUL PHAN DO [facility] CARD CAD [id number] 09/20/2013 14:47:00 014 17:58:00 DIS Emergency DHRUV PINTO MD [facility] ER VOMITING [id number] 08/11/2013 09:00:00 014 14:05:00 DIS Outpatient HIEU HARKINS DO [facility] REHAB DJD R KNEE [id number] 03/11/2013 20:00:00 013 23:59:59 CLS Outpatient PAUL PHAN DO [facility] SLEEP TORRIE [id number] 12/31/2012 13:17:00 013 12:05:00 DIS Inpatient PAUL PHAN DO [facility] CSD CHEST PAIN [id number] 02/02/2020 21:22:[address] Emergency DORI AGRAWAL GUIDE TOUR [facility] ER FALL [id number] 05/12/2015 11:56:00 Document Registration [id number] 07/21/2012 06:49:00 Document Registration [id number] 07/16/2012 07:20:00 Document Registration [id number] 06/22/2012 16:51:00 Document Registration [id number] 03/11/2012 20:10:00 Document Registration [id number] 02/26/2012 11:53:00 Document Registration [id number] 01/18/2011 08:01:00 Document Registration [id number] 12/31/2010 09:35:00 Document Registration [id number] 12/31/2010 08:53:00 Document Registration [id number] 12/05/2010 08:08:00 Document Registration [id number] 11/21/2010 11:23:00 Document Registration [id number] 10/26/2010 10:55:00 Document Registration [id number] 05/13/2019 10:03:09 05/13/2019 23:59:5 9 CLS Outpatient
--- NOTE | 2020-02-02 21:57 | Diagnostic Imaging Report ---
INDICATION: Fall with left shoulder pain. EXAMINATION: AP, oblique and transscapular views of the left shoulder were obtained. FINDINGS: There are degenerative findings at the left acromioclavicular joint. Surgical findings are present in the mediastinum. No acute fracture or dislocation is identified. No abnormal lytic or sclerotic focus is seen, and there is no radiopaque foreign body. IMPRESSION: No acute abnormality. Dictated by: Dictated on workstation # [id number]
--- NOTE | 2020-02-02 21:58 | Diagnostic Imaging Report ---
INDICATION: Fall with right leg pain. EXAMINATION: AP and lateral views of the right lower leg were obtained. FINDINGS: Total right knee arthroplasty. There does appear to be contusion in the tissues of the proximal leg; however, no fracture or malalignment is identified. There is no abnormal lytic or sclerotic focus. IMPRESSION: No acute osseous abnormality is detected. Dictated by: Dictated on workstation # [id number]
[2020-02-02] MEDS ORDERED: RX-HYDROCODONE/APAP 5/325 MG #4 TAB PK PO PRN (22:00)
[2020-02-02 22:10] VITALS: BP 159/89
== END 2020-02-02 22:12 | disposition home or self-care (01) ==
LOC: EDUNIT# 21:13 → ER 21:22
DX: S80.11XA Contusion of right lower leg, initial encounter (principal); S43.401A Unspecified sprain of right shoulder joint, initial encounter; I48.91 Unspecified atrial fibrillation; I10 Essential (primary) hypertension; I25.2 Old myocardial infarction; I25.10 Atherosclerotic heart disease of native coronary artery without angina pectoris; E78.00 Pure hypercholesterolemia, unspecified; K21.9 Gastro-esophageal reflux disease without esophagitis; N40.0 Benign prostatic hyperplasia without lower urinary tract symptoms; E11.9 Type 2 diabetes mellitus without complications; M10.9 Gout, unspecified; Z85.51 Personal history of malignant neoplasm of bladder; Z79.01 Long term (current) use of anticoagulants; Z88.8 Allergy status to other drugs, medicaments and biological substances; Z95.5 Presence of coronary angioplasty implant and graft; Z95.1 Presence of aortocoronary bypass graft; Z79.02 Long term (current) use of antithrombotics/antiplatelets; Z79.4 Long term (current) use of insulin; Z87.891 Personal history of nicotine dependence; Z85.828 Personal history of other malignant neoplasm of skin; W10.9XXA Fall (on) (from) unspecified stairs and steps, initial encounter; Y92.009 Unspecified place in unspecified non-institutional (private) residence as the place of occurrence of the external cause
CPT/HCPCS: 70450; 72125; 73030; 73590

== ENCOUNTER → 2020-02-04 | Outpatient (CLI) | payer MEDICARE ==
--- NOTE | 2020-02-04 13:19 | Diagnostic Imaging Report ---
PROCEDURE: US right lower extremity venous. TECHNIQUE: Multiple real-time grayscale images were obtained over the right lower extremity in various projections. Additional spectral analysis and color Doppler duplex images were also obtained. INDICATION: Right leg pain and swelling. FINDINGS: Color Doppler imaging shows normal flow throughout the right common femoral vein throughout the right lower extremity to the ankle. Calf compression shows normal augmentation of flow at the popliteal level. No evidence of popliteal cyst. IMPRESSION: No evidence of venous thrombosis in right lower extremity. Dictated by: Dictated on workstation # [id number]
== END ==
LOC: RAD 12:18
PROVIDERS: ATTEND Nurse Practitioner Family
DX: M79.604 Pain in right leg (principal)

== ENCOUNTER → 2020-04-10 | Outpatient (CLI) | payer MEDICARE ==
[~2020-04-10] MED LIST changes: +ASPI-1238 PO; -ASPI-983 PO; +CHLO4TAB PO; +CLIN300C3 PO; +DOXY100C2 PO; +FLUT9.9S NS; +MONT10TA26 PO; +MUPI22OI2 TP; +OXYC-471 PO; +OXYM15SP42 NS; +RT-ALBUINH INH; +SUCR1TAB36 PO; +TMSL.4C PO
--- NOTE | 2020-04-10 15:15 | Diagnostic Imaging Report ---
PROCEDURE: CT left upper extremity without contrast. TECHNIQUE: Multiple contiguous axial images were obtained through the left upper extremity without the use of intravenous contrast. Auto Exposure Controls were utilized during the CT exam to meet ALARA standards for radiation dose reduction. INDICATION: Left shoulder pain, recent falls. FINDINGS: There are degenerative changes at the acromioclavicular joint. There is some narrowing of the acromiohumeral space with slight superior position of the humeral head in relation to the glenoid. This is typically seen with chronic rotator cuff arthropathy. No fractures are identified. The proximal humerus appears intact. The scapula as well as the visualized clavicle appears intact. IMPRESSION: No acute bony abnormality is identified. There are findings of AC joint degenerative change and rotator cuff arthropathy. Dictated by: Dictated on workstation # [id number]
== END ==
LOC: RAD 14:15
PROVIDERS: ATTEND Internal Medicine
DX: S46.012A Strain of muscle(s) and tendon(s) of the rotator cuff of left shoulder, initial encounter (principal); M19.012 Primary osteoarthritis, left shoulder
CPT/HCPCS: 73200

== ENCOUNTER 2020-05-09 05:38 | Outpatient (RCR) | payer MEDICARE ==
[~2020-05-09] VITALS: Ht 182.9 cm; Wt 121.8 kg
[~2020-05-09 05:38] MED LIST changes: +AMLO-251 PO; -AMLO10TA7 PO
== END 2020-05-09 12:30 | disposition home or self-care (01) ==
LOC: PREOP 05:38
PROVIDERS: ATTEND Internal Medicine
DX: Z01.812 Encounter for preprocedural laboratory examination (principal); Z20.828 Contact with and (suspected) exposure to other viral communicable diseases
CPT/HCPCS: 87635

== ENCOUNTER 2020-05-12 09:50 | Day surgery (SDC) | payer MEDICARE ==
--- NOTE | 2020-05-08 21:00 | HISTORY AND PHYSICAL ---
DATE OF SERVICE: EGD HISTORY AND PHYSICAL HISTORY: The patient is a 80-year-old white male referred by Dr. Andrew for EGD evaluation for epigastric pain. He reports 3-month history of nonradiating epigastric pain, will last for at least 20 to 30 minutes. He is already on proton pump inhibitor therapy, but in addition to this, he is on baby aspirin and Eliquis for atrial fibrillation. He had been on Plavix, but this was stopped 2 to 3 months ago and for arthritic aches and pains, he has been on indomethacin 50 mg q.8 p.r.n. He reports relief of this pain utilizing Carafate and heavy cream. He is status post cholecystectomy in the past. PAST MEDICAL HISTORY: Significant for obesity, hypertension, type 2 diabetes, sleep apnea and coronary artery disease. He denies past stent placement. He did have recent admission for cellulitis in 02/2020. Past medical history is also significant for bladder cancer and several skin cancers, nonmelanoma. He did not require cystectomy. He does have a history of atrial fibrillation. FAMILY HISTORY: His father of stroke in his 60s and mother as well as a son with type 2 diabetes mellitus. PAST SURGICAL HISTORY: Pertinent for cholecystectomy and the believes the hernia repair as well as bilateral total knee replacements a number of years ago. SOCIAL HISTORY: He is retired, 30 plus pack year smoking history, but quit in 1972. Reports moderate alcohol intake. REVIEW OF SYSTEMS: CONSTITUTIONAL: He reports a 40-pound weight gain without night sweats, chills, fever. CARDIOVASCULAR: He denies any recent angina, orthopnea, PND with stable pedal edema. PULMONARY: The patient reports sleep apnea with no cough, wheezing and stable dyspnea on exertion. GASTROINTESTINAL: As noted in the HPI. PHYSICAL EXAMINATION: GENERAL: Reveals pleasant overweight white male weighing 268 pounds and 6 feet tall. VITAL SIGNS: Blood pressure 130/80. HEENT: Reveals a Mallampati 3 to 4 oropharyngeal configuration. NECK: Reveals no JVD, adenopathy or bruits. CHEST: Clear. CARDIOVASCULAR: Reveals a regular rate and rhythm with a soft 1-2/6 systolic ejection murmur heard best at the left lower sternal border. There is no evidence for pulsus, parvus or tardus. No S3 or S4 appreciated. ABDOMEN: Obese, soft, mild epigastric discomfort to palpation is present without rebound or guarding. No mass or organomegaly is noted, although obesity decreases the sensitivity of examination in this regard. No bruits are noted. EXTREMITIES: Reveal no cyanosis or clubbing. There is trace pretibial edema. ASSESSMENT AND PLAN: The patient is being set up for EGD evaluation due to history of epigastric pain suspicious for peptic ulser desease with a past history of bleeding peptic ulcer when he was 41 years of age. He is being set up for this Friday and is deemed to be too high risk with an ASA of III, obesity and a Mallampati 3 to 4 pharyngeal configuration to be done at [facility] by staff. For this reason procedure will be performed at [facility] with Diprivan based anesthesia. The patient was advised to hold aspirin. He had stopped Plavix several months ago he was told to hold Eliquis as well as indomethacin, continuing his other regular medications. Thank you for the referral of this pleasant gentleman. Job ID: [id number] DocumentID: [id number] Dictated Date: 05/08/2020 20:37:26 Golf Course Assistant Date: 05/08/2020 20:59:13 Dictated By: LALO LOPEZ MD [facility]
[~2020-05-12] VITALS: Ht 182.9 cm; Wt 121.8 kg
[2020-05-12] MEDS ORDERED: LACTATED RINGERS 1,000 ML IV STA (09:52)
[2020-05-12] MEDS ORDERED: LACTATED RINGERS 1,000 ML IV ONE (09:54)
[2020-05-12 10:00] VITALS: BP 143/91
[2020-05-12] MEDS ORDERED: LIDOCAINE JELLY 2% 6 ML SYRINGE MM PRN (10:00)
[2020-05-12] MEDS ORDERED: HURRICAINE EXT TUBE (BENZOCAINE) XX PRN (10:00)
[2020-05-12] MEDS ORDERED: PROPOFOL INJECTION 50 ML IV ONE (10:19)
--- NOTE | 2020-05-12 10:29 | Pre-Op Note & Conscious Sedat ---
Pre-Operative Progress Note H&P Reviewed The H&P was reviewed, patient examined and no changes noted. Date H&P Reviewed: May 12, 2020 Time H&P Reviewed: 10:00 Conscious Sedation Pre-Proced ASA Score 2 For ASA 3 and 4: Consider anesthesia and medical clearance. Also, for patients with a history of failed moderate sedation consider anesthesia. Airway Lungs Heart ASA score ASA 1: a normal healthy patient ASA 2: a patient with a mild systemic disease (mid diabetes, controlled hypertension, obesity ASA 3: a patient with a severe systemic disease that limits activity (angina, COPD, prior Myocardial infarction) ASA 4: a patient with an incapacitating disease that is a constant threat to life (CHF, renal failure) ASA 5: a moribund patient not expected to survive 24 hrs. (ruptured aneurysm) ASA 6: a declared brain- patient whose organs are being harvested. For emergent operations, add the letter E after the classification Mallampati Classification Grade 2 Sedation Plan Analgesia, Amnesia, Plan communicated to team members, Discussed options with patient/fam, Discussed risks with patient/fam The patient is an appropriate candidate to undergo the planned procedure, sedation, and anesthesia. The patient immediately re-assessed prior to indication. LALO LOPEZ MD May 12, 2020 10:29
[2020-05-12 10:45] VITALS: BP 142/64
[2020-05-12 10:50] VITALS: BP 138/71
[2020-05-12 11:00] VITALS: BP 138/71
[2020-05-12 11:22] VITALS: BP 125/69
--- NOTE | 2020-05-12 21:36 | OPERATIVE REPORT ---
DATE OF SERVICE: 05/12/2020 EGD SUMMARY INDICATION FOR THE PROCEDURE: Epigastric pain and weight gain. DESCRIPTION OF PROCEDURE: The patient was placed in the left lateral decubitus position. The endoscope was inserted into the oral cavity and under direct visualization, the esophagus was intubated. The endoscope was passed down the esophagus through the stomach and second portion of the duodenum. A careful inspection was made as the endoscope was withdrawn. The patient tolerated the procedure well. FINDINGS: The posterior pharynx, epiglottis, arytenoid aperture and true and false vocal folds were unremarkable to visual inspection. The proximal, mid and distal esophagus were unremarkable. There is no evidence for hiatal hernia formation. No evidence for erosive esophagitis, rings, webs or strictures. The cardia and fundus of the stomach were unremarkable. There is some mild antral erythema and prepyloric erythema noted without evidence for ulceration. One small 5 mm fundal polyp was noted along the greater curvature of the fundus. The pylorus, pyloric channel, duodenal bulb and second portion of the duodenum were unremarkable with no evidence for duodenitis or peptic ulcer disease. ASSESSMENT: Mild antral erythema was noted with an otherwise normal EGD. Biopsy for Helicobacter was obtained. The patient admitted that he had been drinking more bourbon. He has had no alcohol in the past week and the symptoms of epigastric pain have significantly improved. He was advised to continue to abstain from alcohol use. This inactivity due to some orthopedic issues in addition to the heavy cream that he had been using in addition to Carafate for treatment of his epigastric symptoms are the likely cause of his weight gain. Due to his ASA III classification, procedure was performed at [facility]. I thank you for the referral. Job ID: [id number] DocumentID: [id number] Dictated Date: 05/12/2020 11:37:19 Chicken Cutter Date: 05/12/2020 21:34:10 Dictated By: LALO LOPEZ MD [facility]
== END 2020-05-12 11:28 | disposition home or self-care (01) ==
LOC: ENDO 09:50
PROVIDERS: ATTEND Internal Medicine
DX: R10.13 Epigastric pain (principal); R63.5 Abnormal weight gain; K31.7 Polyp of stomach and duodenum; I48.91 Unspecified atrial fibrillation; G47.33 Obstructive sleep apnea (adult) (pediatric); J44.9 Chronic obstructive pulmonary disease, unspecified; K21.9 Gastro-esophageal reflux disease without esophagitis; E11.9 Type 2 diabetes mellitus without complications; I25.10 Atherosclerotic heart disease of native coronary artery without angina pectoris; M06.9 Rheumatoid arthritis, unspecified; Z79.51 Long term (current) use of inhaled steroids; Z79.84 Long term (current) use of oral hypoglycemic drugs; Z79.899 Other long term (current) drug therapy; Z79.82 Long term (current) use of aspirin; Z79.01 Long term (current) use of anticoagulants; Z88.8 Allergy status to other drugs, medicaments and biological substances; Z95.5 Presence of coronary angioplasty implant and graft; Z85.51 Personal history of malignant neoplasm of bladder; Z85.828 Personal history of other malignant neoplasm of skin; Z87.891 Personal history of nicotine dependence
CPT/HCPCS: 88305

== ENCOUNTER → 2020-06-27 | Outpatient (CLI) | payer MEDICARE ==
[~2020-06-27] VITALS: Ht 180 cm; Wt 118.0 kg
[~2020-06-27] MED LIST changes: +CATHETER FLUSH 10 ML SYR IV PRN; -MONT10TA26 PO; +MONT10TA97 PO; +REGADENOSON 0.4 MG/5 ML SYR (LEXISCAN) IV ONE
[2020-06-27 09:21] VITALS: BP 150/88
--- NOTE | 2020-06-28 10:30 | STRESS TEST ---
DATE OF SERVICE: 06/27/2020 RESTING AND POST REGADENOSON TECHNETIUM-99M TETROFOSMIN SPECT CT IMAGING ORDERING PHYSICIAN: Dr. Schmidt. PRIMARY PHYSICIAN: Dr. Andrew. CLINICAL DIAGNOSIS: Coronary artery disease. Baseline images were carried out after injection of 10.93 mCi of technetium-99m Tetrofosmin. This was followed by 0.4 mg regadenoson and technetium-99m Tetrofosmin for stress imaging. The electrocardiogram showed sinus rhythm with evidence of old inferior wall myocardial infarction. The electrocardiogram did not change significantly with regadenoson infusion. The patient did not report any symptoms. Review of images at rest and following stress indicates a small basal inferior perfusion defect that is partially transient. Gated images show normal global left ventricular systolic function. There is basal inferior akinesis. Left ventricular ejection fraction is calculated to be 53%. Left ventricular end diastolic volume is 114 mL. TID is absent (1.02). CONCLUSIONS: 1. Basal inferior infarction with a small amount of nakul-infarct ischemia. 2. Small segment of basal inferior akinesis. 3. Left ventricular ejection fraction is calculated to be 53%. Job ID: [id number] DocumentID: [id number] Dictated Date: 06/28/2020 09:43:41 Tubing Mill Setter Date: 06/28/2020 10:29:52 Dictated By: DRAKE SCHMIDT MD, MA, FACP, FACC, MTDD
== END ==
LOC: CARD 08:15
PROVIDERS: ATTEND Internal Medicine Cardiovascular Disease
DX: I25.10 Atherosclerotic heart disease of native coronary artery without angina pectoris (principal)
CPT/HCPCS: 78452; 93017; A9502

== ENCOUNTER → 2020-07-14 | Outpatient (CLI) | payer MEDICARE ==
[~2020-07-14] MED LIST changes: -CATHETER FLUSH 10 ML SYR IV PRN; -REGADENOSON 0.4 MG/5 ML SYR (LEXISCAN) IV ONE
--- NOTE | 2020-07-14 15:32 | Diagnostic Imaging Report ---
PROCEDURE: US carotid duplex, bilateral. TECHNIQUE: Multiple real-time grayscale images were obtained over the carotid arteries in various projections, bilaterally. Additional spectral analysis and color Doppler duplex images were also obtained. INDICATION: Carotid atherosclerotic disease. FINDINGS: This mild plaquing in both common carotid arteries and carotid bulbs with plaque extending into the proximal internal and external carotid arteries. Velocities are normal bilaterally. No velocity elevation or stenosis is identified. IMPRESSION: Mild bilateral carotid plaque. There is no evidence of a hemodynamically significant stenosis. Parameters based on the consensus panel Bird-Scale and Doppler ultrasound criteria published May 2003, Radiology, Volume 229. DOPPLER (peak systolic velocity M/S Right Left CCA .79 .66 ICA Proximal .48 .45 ICA Mid .62 .61 ICA Distal .67 .57 RATIO .84 .92 ECA 1.82 1.00 VERT .37 .78 Dictated by: Dictated on workstation # [id number]
== END ==
LOC: CARD 13:48
PROVIDERS: ATTEND Internal Medicine Cardiovascular Disease
DX: I65.23 Occlusion and stenosis of bilateral carotid arteries (principal); I25.5 Ischemic cardiomyopathy
CPT/HCPCS: 93306; 93880

== ENCOUNTER → 2020-11-08 | Outpatient (CLI) | payer MEDICARE ==
[~2020-11-08] MED LIST changes: +ISOS60TA63 PO; -LISI-552 PO; +LISI20TA26 PO; +MONT10TA32 PO; -MONT10TA97 PO; -OXYC-471 PO; +OXYC1TAB11 PO
== END ==
LOC: CARD 09:54
PROVIDERS: ATTEND Family Medicine
DX: R00.0 Tachycardia, unspecified (principal); Z86.79 Personal history of other diseases of the circulatory system
CPT/HCPCS: 93005

== ENCOUNTER → 2020-11-16 | Outpatient (CLI) | payer MEDICARE ==
--- NOTE | 2020-11-16 12:56 | Diagnostic Imaging Report ---
Indication: Dyspnea. Time of exam 11:56 AM Comparison is made with prior chest from 09/08/2019. Heart is enlarged but stable. There are changes of median sternotomy and CABG. Lungs are clear of acute infiltrates. There is no failure. No effusion or pneumothorax is detected. IMPRESSION: Stable chest. No acute abnormality is detected. Dictated by: Dictated on workstation # [id number]
== END ==
LOC: RAD 11:34
PROVIDERS: ATTEND Family Medicine
DX: R06.00 Dyspnea, unspecified (principal); Z95.1 Presence of aortocoronary bypass graft; Z98.890 Other specified postprocedural states
CPT/HCPCS: 71046

== ENCOUNTER 2021-02-14 18:20 | Emergency (ER) | payer MEDICARE ==
[~2021-02-14] VITALS: Ht 180.3 cm; Wt 104.5 kg
[2021-02-14] MEDS ORDERED: ACETAMINOPHEN 500 MG TAB (TYLENOL) PO ONE (19:15)
--- NOTE | 2021-02-14 19:16 | ED Headache ---
General Chief Complaint: Head/Cervical Problems Stated Complaint: NECK PAIN Nursing Triage Note: AMB TO ROOM REPORTS PARLIAMENTARY COUNSEL WAS EATNG AND HAD PAIN BEHINDE L EAR AND NECK . PAIN BETTER ON ADMIT TO ROOM. Source: patient Exam Limitations: no limitations History of Present Illness Date Seen by Provider: Feb 14, 2021 Time Seen by Provider: 18:50 Initial Comments To ER with reports of a brief sharp pain behind the left ear that radiated up into the top of his head and down to the left side of his neck and shoulder. That pain is still there but much better. It began very suddenly while sitting at home. He is concerned he may have had a stroke or heart attack. Timing/Duration: 1 week Allergies and Home Medications Allergies Coded Allergies: carvedilol (Verified Allergy, Unknown, 04/22/18) Home Medications Albuterol Sulfate 1 Puff Puff, 2 PUFF INH Q4H PRN for SHORTNESS OF BREATH, (Reported) Amlodipine Besylate 10 Mg Tablet, 10 MG PO HS, (Reported) Apixaban 5 Mg Tablet, 5 MG PO BID, (Reported) Aspirin 81 Mg Tablet.dr, 81 MG PO DAILY, (Reported) Chlordiazepoxide HCl 10 Mg Capsule, 10 MG PO BID PRN for ANXIETY, (Reported) Chlorpheniramine Maleate 4 Mg Tablet, 4 MG PO HS PRN for CONGESTION, (Reported) Fluticasone Propionate 9.9 Ml [place].susp, 2 SPRAY NS DAILY PRN for CONGESTION, (Reported) Gabapentin 400 Mg Capsule, 400 MG PO HS, (Reported) Glimepiride 4 Mg Tablet, 4 MG PO DAILY, (Reported) Insulin Glargine,Hum.rec.anlog 300 Unit/1 Ml Insuln.pen, 30-40 UNIT SQ DAILY, (Reported) TAKES 30-40 UNITS DEPENDING ON CARBS CONSUMNED Isosorbide Mononitrate 60 Mg Tab, 60 MG PO DAILY, (Reported) Levothyroxine Sodium 50 Mcg Tablet, 50 MCG PO DAILY, (Reported) Lisinopril 20 Mg Tablet, 20 MG PO DAILY, (Reported) Metformin HCl 500 Mg Tablet, 500 MG PO BID, (Reported) Montelukast Sodium 10 Mg Tablet, 10 MG PO DAILY, (Reported) Omeprazole 20 Mg Capsule.dr, 20 MG PO DAILY, (Reported) Oxycodone HCl/Acetaminophen 1 Each Tablet, 1 EACH PO Q6H PRN for PAIN-MODERATE (5-7), (Reported) Oxymetazoline HCl 15 Ml [place], 1 SPRAY NS DAILY PRN for CONGESTION, (Reported) Simvastatin 20 Mg Tablet, 20 MG PO HS, (Reported) Tamsulosin HCl 0.4 Mg Cap, 0.8 MG PO 1900, (Reported) TAKES 2 (0.4MG) DAILY Past Itgtvmf-Perdvg-Ghkvai Hx Patient Social History Tobacco Use?: No Substance use?: No Alcohol Use?: Yes Alcohol Frequency: Rarely Immunizations Up To Date Tetanus Booster (TDap): Unknown PED Vaccines UTD: No First/Initial COVID19 Vaccinat: 07/27 Second COVID19 Vaccination Andrew: 08/[address] Commissioner: BRUNO Seasonal Allergies Seasonal Allergies: Yes Past Medical History Surgeries: Yes (bilat TKR, TURBT) Abdominal, Cardiac, CABG, Gallbladder Respiratory: Yes Sleep Apnea, COPD Currently Using CPAP: No Currently Using BIPAP: No Cardiac: Yes (quad bypass) Atrial Fibrillation, Heart Attack Neurological: No Reproductive Disorders: No Genitourinary: Yes (hx bladder ca) Benign Prostatic Hyperpl Gastrointestinal: Yes (wt gain) Gastroesophageal Reflux Musculoskeletal: Yes Arthritis Endocrine: No Diabetes, Insulin dep HEENT: No Cancer: Yes Bladder, Skin Did You Recieve Any Treatments: Yes What Type of Treatment Did You: Chemotherapy, Surgical Intervention Psychosocial: No Integumentary: Yes Pruritis Blood Disorders: No Adverse Reaction/Blood Tranf: No Family Medical History Completed stroke 19 FATHER Diabetes mellitus 19 MOTHER SON No Pertinent Family Hx Physical Exam Vital Signs Vital Signs - First Documented 02/14/21 18:23 Temp 36.8 Pulse 87 Resp 18 B/P (MAP) 96/ Pulse Ox 94 O2 Delivery Room Air O2 Flow Rate 150.00 Capillary Refill : Height, Weight, BMI Height: 5'10.00" Weight: 235lbs. 3.0oz. 106.923677el; 32.00 BMI Method:Stated Progress/Results/Core Measures Results/Orders Lab Results Laboratory Tests Test 02/14/21 19:18 Range/Units White Blood Count 6.8 4.3-11.0 10^3/uL Red Blood Count 4.62 4.30-5.52 10^6/uL Hemoglobin 13.5 13.3-17.7 g/dL Hematocrit 40 40-54 % Mean Corpuscular Volume 87 80-99 fL Mean Corpuscular Hemoglobin 29 25-34 pg Mean Corpuscular Hemoglobin Concent 34 32-36 g/dL Red Cell Distribution Width 14.2 10.0-14.5 % Platelet Count 224 130-400 10^3/uL Mean Platelet Volume 10.9 9.0-12.2 fL Immature Granulocyte % (Auto) 0 % Neutrophils (%) (Auto) 60 42-75 % Lymphocytes (%) (Auto) 21 12-44 % Monocytes (%) (Auto) 11 0-12 % Eosinophils (%) (Auto) 7 0-10 % Basophils (%) (Auto) 1 0-10 % Neutrophils # (Auto) 4.1 1.8-7.8 10^3/uL Lymphocytes # (Auto) 1.4 1.0-4.0 10^3/uL Monocytes # (Auto) 0.8 0.0-1.0 10^3/uL Eosinophils # (Auto) 0.5 H 0.0-0.3 10^3/uL Basophils # (Auto) 0.1 0.0-0.1 10^3/uL Immature Granulocyte # (Auto) 0.0 0.0-0.1 10^3/uL My Orders Orders - DORI AGRAWAL APRN Ct Head/Cervical Spine Wo (02/14/21 18:55) Ekg Tracing (02/14/21 18:55) Cbc With Automated Diff (02/14/21 18:55) Basic Metabolic Panel (02/14/21 18:55) Vital Signs/I&O 02/14/21 18:23 Temp 36.8 Pulse 87 Resp 18 B/P (MAP) 96/ Pulse Ox 94 O2 Delivery Room Air O2 Flow Rate 150.00 Departure Departure-Patient Inst. Referrals: MARCO CANDELARIO DO (PCP/Family) Primary Care Physician DORI AGRAWAL APRN Feb 14, 2021 19:16
--- NOTE | 2021-02-14 19:18 | ED General ---
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 PAIN BETTER ON ADMIT TO ROOM. Source of Information: Patient Exam Limitations: No Limitations History of Present Illness Date Seen by Provider: Feb 14, 2021 Time Seen by Provider: 19:00 Initial Comments Patient is a 80-year-old male who presents to the emergency department today with a chief complaint of pain behind his left ear, just above his left ear radiating up into his head, down into the left side of his neck and a little bit in his shoulder blade. Patient states that he had just made himself a sandwich and was walking back to his recliner chair when he had an onset of the pain. He describes it as sharp in nature. He states it is a little bit reproducible with palpation just above the left ear. He has a pending appointment with Dr. Garvin regarding his ears as he has impacted cerumen in the left ear and states that he has had some decreased hearing. He states he became concerned when he had pain into the left shoulder blade as it is reminiscent of having cardiac pain in the past. He denies new onset nausea, diaphoresis or shortness of breath. He was not exerting himself at the onset of symptoms. He did not take any Tylenol, aspirin or ibuprofen at the onset of pain. He denies any unilateral numbness, weakness or tingling. No visual changes or speech difficulty. He has a significant cardiac history with previous IA and for bypass. He was diagnosed with atrial fibrillation about 2 years ago and is on Eliquis. He denies recent fevers, chills, congestion or cough. He is Covid vaccinated. No GI or complaints. Onset of left ear pain was approximately an hour to an hour and half prior to arrival. All other review of systems reviewed and negative except as stated. Severity: Mild Associated Systoms: Other (Left shoulder pain) Allergies and Home Medications Allergies Coded Allergies: carvedilol (Verified Allergy, Unknown, 04/22/18) Home Medications Albuterol Sulfate 1 Puff Puff, 2 PUFF INH Q4H PRN for SHORTNESS OF BREATH, (Reported) Amlodipine Besylate 10 Mg Tablet, 10 MG PO HS, (Reported) Apixaban 5 Mg Tablet, 5 MG PO BID, (Reported) Aspirin 81 Mg Tablet.dr, 81 MG PO DAILY, (Reported) Chlordiazepoxide HCl 10 Mg Capsule, 10 MG PO BID PRN for ANXIETY, (Reported) Chlorpheniramine Maleate 4 Mg Tablet, 4 MG PO HS PRN for CONGESTION, (Reported) Fluticasone Propionate 9.9 Ml [place].susp, 2 SPRAY NS DAILY PRN for CONGESTION, (Reported) Gabapentin 400 Mg Capsule, 400 MG PO HS, (Reported) Glimepiride 4 Mg Tablet, 4 MG PO DAILY, (Reported) Insulin Glargine,Hum.rec.anlog 300 Unit/1 Ml Insuln.pen, 30-40 UNIT SQ DAILY, (Reported) TAKES 30-40 UNITS DEPENDING ON CARBS CONSUMNED Isosorbide Mononitrate 60 Mg Tab, 60 MG PO DAILY, (Reported) Levothyroxine Sodium 50 Mcg Tablet, 50 MCG PO DAILY, (Reported) Lisinopril 20 Mg Tablet, 20 MG PO DAILY, (Reported) Metformin HCl 500 Mg Tablet, 500 MG PO BID, (Reported) Montelukast Sodium 10 Mg Tablet, 10 MG PO DAILY, (Reported) Omeprazole 20 Mg Capsule.dr, 20 MG PO DAILY, (Reported) Oxycodone HCl/Acetaminophen 1 Each Tablet, 1 EACH PO Q6H PRN for PAIN-MODERATE (5-7), (Reported) Oxymetazoline HCl 15 Ml [place], 1 SPRAY NS DAILY PRN for CONGESTION, (Reported) Simvastatin 20 Mg Tablet, 20 MG PO HS, (Reported) Tamsulosin HCl 0.4 Mg Cap, 0.8 MG PO 1900, (Reported) TAKES 2 (0.4MG) DAILY Patient Home Medication List Home Medication List Reviewed: Yes Review of Systems Review of Systems Constitutional: see HPI EENTM: other (Decreased hearing left ear, pain behind the left ear radiating up to above the left ear and into his head, mild) Respiratory: other (Chronically little short of breath since pneumonia about a year ago) Cardiovascular: no symptoms reported Gastrointestinal: no symptoms reported Genitourinary: no symptoms reported Musculoskeletal: no symptoms reported Skin: no symptoms reported Psychiatric/Neurological: Headache All Other Systems Reviewed Negative Unless Noted: Yes Past Amdxmkk-Nagqsc-Jvjejf Hx Patient Social History Tobacco Use?: No Substance use?: No Alcohol Use?: Yes Alcohol Frequency: Rarely Immunizations Up To Date Tetanus Booster (TDap): Unknown PED Vaccines UTD: No First/Initial COVID19 Vaccinat: 07/27 Second COVID19 Vaccination Andrew: 08/26 COVID19 Vaccine 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 Seasonal Allergies Seasonal Allergies: Yes Past Medical History Surgeries: Yes (bilat TKR, TURBT) Abdominal, Cardiac, CABG, Gallbladder Respiratory: Yes Sleep Apnea, COPD Currently Using CPAP: No Currently Using BIPAP: No Cardiac: Yes (quad bypass) Atrial Fibrillation, Heart Attack Neurological: No Reproductive Disorders: No Genitourinary: Yes (hx bladder ca) Benign Prostatic Hyperpl Gastrointestinal: Yes (wt gain) Gastroesophageal Reflux Musculoskeletal: Yes Arthritis Endocrine: No Diabetes, Insulin dep HEENT: No Cancer: Yes Bladder, Skin Did You Recieve Any Treatments: Yes What Type of Treatment Did You: Chemotherapy, Surgical Intervention Psychosocial: No Integumentary: Yes Pruritis Blood Disorders: No Adverse Reaction/Blood Tranf: No Family Medical History Completed stroke 19 FATHER Diabetes mellitus 19 MOTHER SON No Pertinent Family Hx Physical Exam Vital Signs Vital Signs - First Documented 02/14/21 18:23 Temp 36.8 Pulse 87 Resp 18 B/P (MAP) 96/ Pulse Ox 94 O2 Delivery Room Air O2 Flow Rate 150.00 Capillary Refill : Height, Weight, BMI Height: 5'10.00" Weight: 235lbs. 3.0oz. 106.459859wk; 32.00 BMI Method:Stated General Appearance: No Apparent Distress, WD/WN Eyes: Bilateral Eye Normal Inspection, Bilateral Eye PERRL, Bilateral Eye EOMI HEENT: Other (Left TM completely occluded by cerumen impaction; patient has a little tenderness to palpation just above the left ear. 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 Norm as Tested Skin: Normal Color, Warm/Dry Progress/Results/Core Measures Suspected Sepsis SIRS Temperature: Pulse: 87 Respiratory Rate: 18 Laboratory Tests 02/14/21 19:18: White Blood Count 6.8 Blood Pressure 96 / Mean: Laboratory Tests 02/14/21 19:18: Creatinine 1.16, Platelet Count 224 Results/Orders Lab Results Laboratory Tests Test 02/14/21 19:18 02/14/21 21:11 Range/Units White Blood Count 6.8 4.3-11.0 10^3/uL Red Blood Count 4.62 4.30-5.52 10^6/uL Hemoglobin 13.5 13.3-17.7 g/dL Hematocrit 40 40-54 % Mean Corpuscular Volume 87 80-99 fL Mean Corpuscular Hemoglobin 29 25-34 pg Mean Corpuscular Hemoglobin Concent 34 32-36 g/dL Red Cell Distribution Width 14.2 10.0-14.5 % Platelet Count 224 130-400 10^3/uL Mean Platelet Volume 10.9 9.0-12.2 fL Immature Granulocyte % (Auto) 0 % Neutrophils (%) (Auto) 60 42-75 % Lymphocytes (%) (Auto) 21 12-44 % Monocytes (%) (Auto) 11 0-12 % Eosinophils (%) (Auto) 7 0-10 % Basophils (%) (Auto) 1 0-10 % Neutrophils # (Auto) 4.1 1.8-7.8 10^3/uL Lymphocytes # (Auto) 1.4 1.0-4.0 10^3/uL Monocytes # (Auto) 0.8 0.0-1.0 10^3/uL Eosinophils # (Auto) 0.5 H 0.0-0.3 10^3/uL Basophils # (Auto) 0.1 0.0-0.1 10^3/uL Immature Granulocyte # (Auto) 0.0 0.0-0.1 10^3/uL Sodium Level 139 135-145 MMOL/L Potassium Level 3.8 3.6-5.0 MMOL/L Chloride Level 102 98-107 MMOL/L Carbon Dioxide Level 23 21-32 MMOL/L Anion Gap 14 5-14 MMOL/L Blood Urea Nitrogen 13 7-18 MG/DL Creatinine 1.16 0.60-1.30 MG/DL Estimat Glomerular Filtration Rate 61 BUN/Creatinine Ratio 11 Glucose Level 111 H 70-105 MG/DL Calcium Level 9.3 8.5-10.1 MG/DL Total Creatine Kinase 141 30-200 U/L Troponin I < 0.028 < 0.028 <0.028 NG/ML My Orders Orders - KOLTON JAMES MD Creatine Kinase (02/14/21 19:10) Troponin I (02/14/21 19:10) Chest 1 View, Ap/Pa Only (02/14/21 19:11) Acetaminophen Tablet (Tylenol Tablet) (02/14/21 19:15) Ekg Tracing (02/14/21 19:11) Troponin I (02/14/21 20:57) Medications Given in ED Current Medications Medications Dose Ordered Sig/Alexis Route Start Time Stop Time Status Last Admin Dose Admin Acetaminophen 1,000 mg ONCE ONCE PO 02/14/21 19:15 02/14/21 19:16 DC 02/14/21 19:41 1,000 MG Vital Signs/I&O 02/14/21 18:23 Temp 36.8 Pulse 87 Resp 18 B/P (MAP) 96/ Pulse Ox 94 O2 Delivery Room Air O2 Flow Rate 150.00 Capillary Refill : Progress Note : Time: 21:18 Progress Note Patient is feeling much better after tylenol. no pain. second troponin is pending ECG Initial ECG Impression Date: Feb 14, 2021 Initial ECG Impression Time: 19:08 Initial ECG Rate: 77 Initial ECG Rhythm: A Fib/Flutter Initial ECG Intervals CA(patient is in A. fib) QRS 118 QTC 434 Comment Patient has nonspecific ST-T wave changes throughout the precordium and inferiorly. Diagnostic Imaging Diagonstic Imaging: Xray Plain Films/CT/US/NM/MRI: chest Comments NAME: [facility] REC#: [id number] PT STATUS: REG ER : 1940 PHYSICIAN: KOLTON JAMES MD ADMIT DATE: 02/14/21/ER Draft Date of Exam:02/14/21 CHEST 1 VIEW, AP/PA ONLY INDICATION: Left ear pain. EXAMINATION: Frontal chest was obtained at 8:15 p.m. COMPARISON: 11/16/2020. FINDINGS: There is marked cardiomegaly. Patient has had previous sternotomy and coronary bypass. There is opacity in the left lung base which may be due to poor inspiration and lordotic technique. There is no definitive consolidation, pneumothorax or pleural fluid. IMPRESSION: Prominent cardiomegaly with post sternotomy change. Opacity in the left lung base may be technical. Would consider correlation with PA and lateral views when the patient is able. Dictated on workstation # [id number] Dict: 02/14/212047 Trans: 02/14/212053 [id number] Interpreted by: HIEU ROMERO MD Electronically signed by: Departure Impression Primary Impression: Headache Qualified Codes: R51.9 - Headache, unspecified Additional Impression: History of coronary artery disease Disposition: HOME, SELF-CARE Condition: Stable Departure-Patient Inst. Decision time for Depature: 21:43 Referrals: MARCO CANDELARIO DO (PCP/Family) Primary Care Physician Patient Instructions: Headache, Adult (DC) Add. Discharge Instructions: Please take [id number]-jnxplbt extra strength Tylenol 2 pills every 6 hours as needed for headache if it should recur. If you have any additional symptoms of neck pain, chest pain shoulder pain especially with shortness of breath, nausea or sweating please come back to the emergency room for reevaluation. 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 Continue taking your normal routine daily medications. KOLTON JAMES MD Feb 14, 2021 19:17
[2021-02-14 19:27] LABS: BASOPHILS # (AUTO) 0.1 10^3/uL (0.0-0.1); BASOPHILS % (AUTO) 1 % (0-10); EOSINOPHILS # (AUTO) 0.5 10^3/uL (0.0-0.3); EOSINOPHILS % (AUTO) 7 % (0-10); HEMATOCRIT 40 % (40-54); HEMOGLOBIN 13.5 g/dL (13.3-17.7); LYMPHOCYTES # (AUTO) 1.4 10^3/uL (1.0-4.0); LYMPHOCYTES % (AUTO) 21 % (12-44); MEAN CORPUSCULAR HEMOGLOBIN 29 pg (25-34); MEAN CORPUSCULAR HGB CONC 34 g/dL (32-36); MEAN CORPUSCULAR VOLUME 87 fL (80-99); MEAN PLATELET VOLUME 10.9 fL (9.0-12.2); MONOCYTES # (AUTO) 0.8 10^3/uL (0.0-1.0); MONOCYTES % (AUTO) 11 % (0-12); NEUTROPHILS # (AUTO) 4.1 10^3/uL (1.8-7.8); NEUTROPHILS % (AUTO) 60 % (42-75); PLATELET COUNT 224 10^3/uL (130-400); WHITE BLOOD COUNT 6.8 10^3/uL (4.3-11.0)
[2021-02-14 19:40] LABS: CHLORIDE 102 MMOL/L (98-107); POTASSIUM 3.8 MMOL/L (3.6-5.0); SODIUM 139 MMOL/L (135-145)
[2021-02-14 19:41] LABS: CALCIUM 9.3 MG/DL (8.5-10.1); GLUCOSE 111 MG/DL (70-105)
[2021-02-14 19:43] LABS: CARBON DIOXIDE 23 MMOL/L (21-32)
[2021-02-14 19:48] LABS: CREATINE KINASE 141 U/L (30-200)
--- NOTE | 2021-02-14 20:55 | Diagnostic Imaging Report ---
INDICATION: Left ear pain. EXAMINATION: Frontal chest was obtained at 8:15 p.m. COMPARISON: 11/16/2020. FINDINGS: There is marked cardiomegaly. Patient has had previous sternotomy and coronary bypass. There is opacity in the left lung base which may be due to poor inspiration and lordotic technique. There is no definitive consolidation, pneumothorax or pleural fluid. IMPRESSION: Prominent cardiomegaly with post sternotomy change. Opacity in the left lung base may be technical. Would consider correlation with PA and lateral views when the patient is able. Dictated by: Dictated on workstation # [id number]
[2021-02-14 20:59] LABS: BUN/CREATININE RATIO 11; CREATININE SERUM 1.16 MG/DL (0.60-1.30); GFR ESTIMATED 61
[2021-02-14 21:51] VITALS: BP 123/95
== END 2021-02-14 21:55 | disposition home or self-care (01) ==
LOC: EDUNIT# 18:20 → ER 18:21
DX: R51.9 Headache, unspecified (principal); I48.91 Unspecified atrial fibrillation; I25.2 Old myocardial infarction; I25.10 Atherosclerotic heart disease of native coronary artery without angina pectoris; J44.9 Chronic obstructive pulmonary disease, unspecified; K21.9 Gastro-esophageal reflux disease without esophagitis; N40.0 Benign prostatic hyperplasia without lower urinary tract symptoms; Z95.1 Presence of aortocoronary bypass graft; Z79.82 Long term (current) use of aspirin; Z79.01 Long term (current) use of anticoagulants; Z79.51 Long term (current) use of inhaled steroids; Z79.899 Other long term (current) drug therapy
CPT/HCPCS: 36415; 71045; 80048; 82550; 84484; 85025; 93005

== ENCOUNTER 2022-11-08 06:56 | Day surgery (SDC) | payer MEDICARE ==
[~2022-11-08] VITALS: Ht 180.3 cm; Wt 104.1 kg
[2022-11-08] VITALS (7 sets, daily range): BP systolic 123–150; BP diastolic 98–113
[~2022-11-08 06:56] MED LIST changes: -DOXY100C2 PO; +DOXY100C5 PO; +INDO75CA10 PO; -INDO75CA3 PO; +MONT-40 PO; -MONT10TA32 PO; -POTA99TA21 PO; +POTA99TA26 PO
[2022-11-08] MEDS ORDERED: NS IV 1000 ML 1,000 ML IV SCH ×2 (07:00→09:15)
[2022-11-08] MEDS ORDERED: NS IV 1000 ML 1,000 ML ONE (07:04)
[2022-11-08] MEDS ORDERED: LIDOCAINE 1% INJ 20 ML VIAL ONE (07:04)
[2022-11-08] MEDS ORDERED: HEParin (CATH LAB) 2,000 ML IV ONE (07:04)
[2022-11-08 07:24] LABS: HEMATOCRIT 44 % (40-54); HEMOGLOBIN 14.5 g/dL (13.3-17.7); MEAN CORPUSCULAR HEMOGLOBIN 29 pg (25-34); MEAN CORPUSCULAR HGB CONC 33 g/dL (32-36); MEAN CORPUSCULAR VOLUME 89 fL (80-99); MEAN PLATELET VOLUME 10.7 fL (9.0-12.2); PLATELET COUNT 270 10^3/uL (130-400); WHITE BLOOD COUNT 8.3 10^3/uL (4.3-11.0)
[2022-11-08] MEDS ORDERED: OMEP20CA18 PO (07:32)
[2022-11-08] MEDS ORDERED: RIVA20TA PO (07:32)
[2022-11-08] MEDS ORDERED: MTP25TSR PO (07:32)
[2022-11-08] MEDS ORDERED: GLIM2TAB4 PO (07:32)
[2022-11-08] MEDS ORDERED: SIMV40TA25 PO (07:32)
[2022-11-08] MEDS ORDERED: FURO40TA4 PO (07:32)
--- NOTE | 2022-11-08 07:36 | Diagnostic Imaging Report ---
EXAMINATION: Chest 1 view HISTORY: Abnormal stress test. Dyspnea on exertion. COMPARISON: 02/14/2021. FINDINGS: There is cardiomegaly with prominence of the central pulmonary vasculature. Post-CABG changes are noted. Hazy opacities are seen in the mid and lower lungs. Small left-sided pleural effusion. No pneumothorax. IMPRESSION: 1. Cardiomegaly with central pulmonary vascular congestion and interstitial edema. Dictated by: Dictated on workstation # [id number]
[2022-11-08] MEDS ORDERED: fentaNYL INJ 100 MCG/2 ML AMP ONE (07:37)
[2022-11-08] MEDS ORDERED: MIDAZOLAM 5 MG/5 ML (VERSED) VIAL ONE (07:37)
[2022-11-08 07:44] LABS: INR 1.1 (0.8-1.4); PROTHROMBIN TIME PATIENT 14.8 SEC (12.2-14.7)
[2022-11-08 07:51] LABS: ALANINE AMINOTRANSFERASE 17 U/L (0-55); ALBUMIN 4.7 GM/DL (3.2-4.5); ALKALINE PHOSPHATASE 34 U/L (40-136); BILIRUBIN,TOTAL 0.8 MG/DL (0.1-1.0); BUN/CREATININE RATIO 15; CARBON DIOXIDE 26 MMOL/L (21-32); CHLORIDE 102 MMOL/L (98-107); CHOLESTEROL 177 MG/DL (< 200); CREATININE SERUM 1.43 MG/DL (0.60-1.30); GFR ESTIMATED 49; GLUCOSE 161 MG/DL (70-105); HDL CHOLESTEROL 61 MG/DL (40-60); POTASSIUM 4.1 MMOL/L (3.6-5.0); SODIUM 141 MMOL/L (135-145); TRIGLYCERIDES 84 MG/DL (<150); VLDL CHOLESTEROL 17 MG/DL (5-40)
--- NOTE | 2022-11-08 09:08 | Cardiac Procedure Note-CS/ASA ---
Pre-Procedure Note Pre-Op Procedure Note Date of Available H&P: Oct 30, 2022 Date H&P Reviewed: November 08, 2022 Time H&P Reviewed: 08:10 History & Physical: H&P Reviewed, No changes noted Moderate Sedation PreProcedure ASA Score 3 Airway Lungs Heart ASA score ASA 1: a normal healthy patient ASA 2: a patient with a mild systemic disease (mid diabetes, controlled hypertension, obesity ASA 3: a patient with a severe systemic disease that limits activity (angina, COPD, prior Myocardial infarction) ASA 4: a patient with an incapacitating disease that is a constant threat to life (CHF, renal failure) ASA 5: a moribund patient not expected to survive 24 hrs. (ruptured aneurysm) ASA 6: a declared brain- patient whose organs are being harvested. For emergent operations, add the letter E after the classification Mallampati Classification Grade 2 Sedation Plan Analgesia, Amnesia, Plan communicated to team members The patient is an appropriate candidate to undergo the planned procedure, sedation, and anesthesia. The patient immediately re-assessed prior to indication. DRAKE ORTIZ MD FACP FAC CCDS November 08, 2022 09:08
[2022-11-08] MEDS ORDERED: ASPI-999 PO (09:14)
--- NOTE | 2022-11-08 09:14 | Discharge Inst-Cardiology ---
Discharge Inst-Cardiac Discharge Medications New Medications: Aspirin (Aspirin) 81 Mg Tab.chew 81 MG PO DAILY, #90 TAB 3 Refills Continued Medications: Albuterol Sulfate (Ventolin Hfa) 1 Puff Puff 2 PUFF INH Q4H PRN for SHORTNESS OF BREATH, PUFF Fluticasone Propionate (Flonase Allergy Relief) 9.9 Ml [place].susp 2 SPRAY NS DAILY PRN for CONGESTION, EACH Furosemide (Furosemide) 40 Mg Tablet 40 MG PO DAILY PRN for EDEMA, TAB Glimepiride (Glimepiride) 2 Mg Tablet 2 MG PO DAILY, TAB Insulin Glargine,Hum.rec.anlog (Toujeo Solostar) 300 Unit/1 Ml Insuln.pen 30-40 UNIT SQ DAILY, EA TAKES 30-40 UNITS DEPENDING ON CARBS CONSUMNED Isosorbide Mononitrate (Isosorbide Mononitrate ER) 60 Mg Tab 60 MG PO DAILY, TAB Levothyroxine Sodium (Levothyroxine Sodium) 50 Mcg Tablet 50 MCG PO DAILY, TAB Lisinopril (Lisinopril) 20 Mg Tablet 20 MG PO BID, TAB Metoprolol Succinate (Metoprolol Succinate) 25 Mg Tab.er.24h 37.5 MG PO BID, TAB Omeprazole (Omeprazole) 20 Mg Capsule.dr 20 MG PO BID, CAP Oxycodone HCl/Acetaminophen (Oxycodone-Acetaminophen 5-325) 1 Each Tablet 1 EACH PO Q6H PRN for PAIN-MODERATE (5-7) MDD 6, TAB Rivaroxaban (Xarelto) 20 Mg Tablet 20 MG PO DAILY, TAB Simvastatin (Simvastatin) 40 Mg Tablet 40 MG PO DAILY, TAB Discontinued Medications: Metformin HCl (Metformin HCl) 500 Mg Tablet 500 MG PO BID, TAB Patient Instructions Patient Instructions: Hold METFORMIN unitl the morning of 11/11/22, then resume previous home dose DRAKE ORTIZ MD [facility] CCDS November 08, 2022 09:14
[2022-11-08] MEDS ORDERED: PATIENT MAY USE OWN MEDS, ALL PO SCH (09:15)
--- NOTE | 2022-11-08 09:15 | Discharge Inst-Post CATH ---
Discharge Inst-CATH/EP Post Cardiac Cath/EP D/C Inst Follow Up/Plan F/u with Dr Schmidt in 1 week ACTIVITY * Go Home directly and rest. * Limit activity of the leg (or wrist if it was used) for 7 days including aerobics, swimming, jogging, bicycling, etc. * Restrict stair-climbing for 7 days if possible, if not, climb up with your non -cath leg, then bring together on the same step. * Avoid lifting, pushing, pulling or excessive movement of the affected extr emity for 7 days. * Customary sexual activity may be resumed after 2 days-use caution not to use a position that strains or causes pain to the affected extremity. * No driving for 24 hours. * NO SMOKING. * Avoid straining for bowel movements for 7 days. * Gentle walking on level ground is allowed. * Returning to work will depend on the type of procedure and the results. Your doctor will discuss this with you. CALL YOUR DOCTOR FOR ANY OF THE FOLLOWING: *If bleeding from the puncture site occurs- Apply gentle pressure to site with clean cloth and call your doctor or EMS. * If a knot or lump forms under the skin, increases in size, or causes pain. * If bruising appears to be worsening or moving further down your leg instead of disappearing. * Temperature above 101 F. CARE OF YOUR GROIN INCISION; * Bruising or purple discoloration of the skin near the puncture site is common. * You may shower only, no bathtub bathing for 5 days. Be careful to avoid slipping as your leg may feel stiff. * If a closure device was used on your femoral artery, please see the attached guide regarding care of the device and your leg. * Leave dressing on FOR 24 hours. CARE OF YOUR WRIST INCISION; * Bruising or purple discoloration of the skin near the puncture site is common. * You may shower. * DO NOT submerge wrist. * Leave dressing on FOR 24 hours. DRAKE SCHMIDT MD [facility] November 08, 2022 09:15
--- NOTE | 2022-11-08 11:17 | Cardiac Cath Report ---
CARDIAC CATHETERIZATION DATE OF PROCEDURE: 11/08/22 INDICATION: Shortness of breath and chest discomfort HISTORY: The patient is a 82 year old male with a h/o CABG who is having exertional chest discomfort and shortness of breath PROCEDURES PERFORMED: 1. []. PROCEDURE DESCRIPTION: After informed consent and in the fasting state, left heart catheterization was performed through the R femoral artery utilizing a 5 Hebrew system by percutaneous approach. Standard [place] catheters were utilized for the diagnostic portion of the procedure. MARCELINO catheter for IM angiography. JR4 cath for angiography of all SVGs. Aortic valve not crossed CORONARY ANGIOGRAPHY: Left main coronary artery: Known to be chronically occluded RCA: mod to mod severe disease in the prox and mid portions, distally occluded, dominant vessel RUVALCABA: patent and free of significant disease; distal to the graft, the LAD has upto 70% stenoses SVG to Diag: patent and free of significant disease and good distal run off SVG to OM: patent and free of significant disease and good distal run off SVG to RCA: patent and free of significant disease and good distal run off IMPRESSION: 1. Ione CAD consisting of occluded LMCA and distal occlusion of RCA 2. Patent RUVALCABA to LAD with distal moderately severe to sever disease in the LAD 3. Patent SVGs to a diag, and OM, and PDA (RCA) PLAN: Medical therapy If symptoms persistent, then consider complex intervention to distal LAD through a tortuous RUVALCABA Discussed in detail with patient and family DRAKE ORTIZ MD [facility] CCDS November 08, 2022 11:17
[2022-11-08] MEDS ORDERED: amLODIPine 2.5MG (NORVASC) TAB ONE (14:06)
[2022-11-08] MEDS ORDERED: amLODIPine 2.5MG (NORVASC) TAB PO NR (15:00)
== END 2022-11-08 14:00 | disposition home or self-care (01) ==
LOC: CATH 06:56 → ICU 09:25 → CATH 14:00 → ICU 15:09
PROVIDERS: ATTEND Internal Medicine Cardiovascular Disease
DX: I25.10 Atherosclerotic heart disease of native coronary artery without angina pectoris (principal); R06.02 Shortness of breath; R07.89 Other chest pain; I35.0 Nonrheumatic aortic (valve) stenosis; I11.0 Hypertensive heart disease with heart failure; R94.31 Abnormal electrocardiogram [ECG] [EKG]; I50.22 Chronic systolic (congestive) heart failure; I48.0 Paroxysmal atrial fibrillation; I77.9 Disorder of arteries and arterioles, unspecified; I65.23 Occlusion and stenosis of bilateral carotid arteries; I25.5 Ischemic cardiomyopathy; E11.9 Type 2 diabetes mellitus without complications; Z79.01 Long term (current) use of anticoagulants; Z79.899 Other long term (current) drug therapy; Z87.891 Personal history of nicotine dependence; Z95.1 Presence of aortocoronary bypass graft
CPT/HCPCS: 71045; 80053; 80061; 85027; 85610; 85730; 87081; 93005; 93455; C1760; C1894; 36415

== ENCOUNTER → 2022-11-15 | Outpatient (CLI) | payer MEDICARE ==
[~2022-11-15] MED LIST changes: +ASPI-999 PO; +FURO40TA4 PO; +GLIM2TAB4 PO; +MTP25TSR PO; +RIVA20TA PO
== END ==
LOC: CARD 13:20
PROVIDERS: ATTEND Nurse Practitioner Family
DX: I08.3 Combined rheumatic disorders of mitral, aortic and tricuspid valves (principal); I25.5 Ischemic cardiomyopathy
CPT/HCPCS: 93306

== ENCOUNTER → 2023-01-20 | Outpatient (CLI) | payer MEDICARE | LOC: CARD 09:57 | PROVIDERS: ATTEND Nurse Practitioner | DX: I10 Essential (primary) hypertension (principal); Z95.3 Presence of xenogenic heart valve | CPT/HCPCS: 93306 ==

== ENCOUNTER → 2023-02-03 | Outpatient (RCR) | payer MEDICARE | END | disposition home or self-care (01) | LOC: CR 01-13 08:43 | PROVIDERS: ATTEND Thoracic Surgery (Cardiothoracic Vascular Surgery) | DX: Z29.8 Encounter for other specified prophylactic measures (principal); I35.0 Nonrheumatic aortic (valve) stenosis | CPT/HCPCS: 93798 ==

== ENCOUNTER 2023-05-10 15:02 | Emergency (ER) | payer MEDICARE ==
[~2023-05-10] VITALS: Ht 180 cm; Wt 102.0 kg
[~2023-05-10 15:02] MED LIST changes: -GABA-490 PO; +GABA-491 PO
--- NOTE | 2023-05-10 16:14 | Diagnostic Imaging Report ---
PROCEDURE: CT chest without contrast. TECHNIQUE: Multiple contiguous axial images were obtained through the chest without the use of intravenous contrast. Auto Exposure Controls were utilized during the CT exam to meet ALARA standards for radiation dose reduction. INDICATION: Fall. Now with left chest pain. COMPARISON: Chest CT of 08/04/2019. FINDINGS: There are nondisplaced fractures of the anterior/distal aspects of the left 4th and 5th ribs. No chest wall hematoma. No pneumothorax. No lung contusion or pulmonary laceration. There is trace dependent basilar atelectasis, greater left. No hemothorax. Aortic stent graft device and andreafski coronary atherosclerosis with previous sternotomy and CABG present. No sternal dehiscence. The right ribs are intact. No retrosternal hematoma. No lung mass. No thoracic adenopathy. No findings of edema or pneumonia. IMPRESSION: 1. Left 4th and 5th rib fractures anteriorly are nondisplaced. No pulmonary parenchymal or pleural injury. Slight basilar atelectasis. Prior sternotomy without dehiscence. No effusion or pneumothorax. 2. Not mentioned above, the visible upper abdomen shows renal cysts with no acute appearing abnormality. Dictated by: Dictated on workstation # [id number]
--- NOTE | 2023-05-10 16:21 | Diagnostic Imaging Report ---
PROCEDURE: CT head without contrast. TECHNIQUE: Multiple contiguous axial images were obtained through the brain without the use of intravenous contrast. Auto Exposure Controls were utilized during the CT exam to meet ALARA standards for radiation dose reduction. INDICATION: Fall. Head injury. FINDINGS: There is advanced age-related volume loss. There are no CT findings of acute hemorrhage. There is no evidence of an abnormal extra-axial collection. There is no intracranial mass effect or shift. There is no hydrocephalus. There is no territorial loss of dasilva-white differentiation or evidence of vasogenic edema. There is no identified calvarial fracture. The mastoids are clear. There is no fluid level in the paranasal sinuses. IMPRESSION: Age-related global volume loss. No findings of hemorrhage or of an acute intracranial abnormality. Dictated by: Dictated on workstation # [id number]
--- NOTE | 2023-05-10 16:24 | Diagnostic Imaging Report ---
INDICATION: Left shoulder pain. Fall. FINDINGS: There are no findings of glenohumeral dislocation or AC joint separation. The humeral head is high riding, suggesting underlying rotator cuff tear. There is no acute fracture or suspicious bone lesion. There is no fracture of the clavicle or scapula. 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 No findings of dislocation or acute fracture. Dictated by: Dictated on workstation # [id number]
--- NOTE | 2023-05-10 16:25 | Diagnostic Imaging Report ---
INDICATION: Fall. Left-sided chest soreness. FINDINGS: The patient is status post sternotomy and bypass grafting. Enlargement of the cardiac silhouette is unchanged from prior examinations. The right lung is clear. The left lung demonstrates hazy density at the left base with obscuration of the left hemidiaphragm. Left-sided pleural fluid or blood could not be excluded. There is no pneumothorax. There also appear to likely be a couple of left lateral rib fractures inferiorly. IMPRESSION: There are probable left lateral and inferior rib fractures with a small degree of obscuration of the left hemidiaphragm and blunting of the costophrenic angle which may reflect a small effusion or minimal blood. There is no identified pneumothorax. The right lung is clear. Dictated by: Dictated on workstation # [id number]
--- NOTE | 2023-05-10 16:27 | Diagnostic Imaging Report ---
INDICATION: Left wrist pain. Fall. FINDINGS: The bones are of low bone mineral density. There is no cortical disruption demonstrated of the distal radius or the ulna. There is no acute carpal fracture. There is widening of the scapholunate interval, suggesting a prior scapholunate ligament tear. There is radiocarpal joint space narrowing. There is no identified acute carpal fracture. Arthritic changes are present at the base of the thumb. There are advanced atherosclerotic calcifications. 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 There is no acute fracture or malalignment. Dictated by: Dictated on workstation # [id number]
[2023-05-10] MEDS ORDERED: LIDOCAINE 2% VISCOUS 15 ML UDC PO ONE (16:30)
[2023-05-10] MEDS ORDERED: ANTACID SUSPENSION 30 ML UDC PO ONE (16:30)
[2023-05-10 16:50] LABS: BASOPHILS % (AUTO) 1 % (0-10); EOSINOPHILS # (AUTO) 0.3 10^3/uL (0.0-0.3); EOSINOPHILS % (AUTO) 3 % (0-10); HEMATOCRIT 48 % (40-54); HEMOGLOBIN 15.7 g/dL (13.3-17.7); LYMPHOCYTES % (AUTO) 13 % (12-44); MEAN CORPUSCULAR HEMOGLOBIN 31 pg (25-34); MEAN CORPUSCULAR HGB CONC 33 g/dL (32-36); MEAN CORPUSCULAR VOLUME 94 fL (80-99); MEAN PLATELET VOLUME 10.4 fL (9.0-12.2); MONOCYTES # (AUTO) 0.9 10^3/uL (0.0-1.0); MONOCYTES % (AUTO) 11 % (0-12); NEUTROPHILS # (AUTO) 5.9 10^3/uL (1.8-7.8); NEUTROPHILS % (AUTO) 72 % (42-75); PLATELET COUNT 223 10^3/uL (130-400); WHITE BLOOD COUNT 8.2 10^3/uL (4.3-11.0)
[2023-05-10 16:57] LABS: ALBUMIN 4.5 GM/DL (3.2-4.5)
[2023-05-10 16:58] LABS: CHLORIDE 99 MMOL/L (98-107); POTASSIUM 4.5 MMOL/L (3.6-5.0); SODIUM 137 MMOL/L (135-145)
[2023-05-10 16:59] LABS: CALCIUM 9.7 MG/DL (8.5-10.1); INR 1.1 (0.8-1.4); PROTHROMBIN TIME PATIENT 14.7 SEC (12.2-14.7)
[2023-05-10 17:00] LABS: GLUCOSE 220 MG/DL (70-105); TOTAL PROTEIN 7.6 GM/DL (6.4-8.2)
[2023-05-10 17:01] LABS: CARBON DIOXIDE 23 MMOL/L (21-32)
[2023-05-10] MEDS ORDERED: fentaNYL INJECTION 100 MCG/2 ML VIAL IVP STA (17:01)
[2023-05-10 17:02] LABS: BILIRUBIN,TOTAL 0.5 MG/DL (0.1-1.0)
[2023-05-10 17:04] LABS: ALKALINE PHOSPHATASE 60 U/L (40-136); CREATININE SERUM 1.54 MG/DL (0.60-1.30); GFR ESTIMATED 45
[2023-05-10 17:05] LABS: BUN/CREATININE RATIO 16
[2023-05-10 17:07] LABS: ALANINE AMINOTRANSFERASE 24 U/L (0-55); MAGNESIUM 2.8 MG/DL (1.6-2.4)
[2023-05-10] MEDS ORDERED: HYDROcodone/ACETAMINOPHEN 7.5 MG/325 MG TABLET PO STA (17:23)
--- NOTE | 2023-05-10 17:40 | ED Fall/Injury ---
General Chief Complaint: Trauma-Non Activation Stated Complaint: CHEST INJ Nursing Triage Note: PT TO ROOM 10 VIA WHEELCHAIR. PT STATES FELL AT [facility] OVER [facility] IN PARKING LOT. Source: patient Exam Limitations: no limitations (DHRUV PINTO MD) History of Present Illness Date Seen by Provider: May 10, 2023 Time Seen by Provider: 15:30 Initial Comments [place] walking and tripped over a piece of elevated concrete and landed on his left shoulder and left chest and is having some chest pain as well as left shoulder pain. It was initially quite extreme but is a little better now. Reports that he believes he is on a blood thinner. 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 He is complaining of left wrist, left shoulder, left anterior chest and mild left-sided head pain. Denies neck pain, hip or pelvic pain or leg pain. He is on blood pressure medicine. He does take aspirin daily and did take it this morning. Occasionally has chest pain requiring nitro and did have an episode of the pain with the event but did not take nitro. Denies nausea or vomiting but does have some stomach upset. Occurred: just prior to arrival (Approximately 30 to 45 minutes ago) Severity: moderate Injuries/Pain Location: head, upper extremity, chest Context: tripped Loss of Consciousness: no loss of consciousness Modifying Factors: Improves With Immobilization; Worse With Movement Associated Symptoms (Fall): No Abdominal Pain; Chest Pain; No Confusion, No Headache, No Nausea/Vomiting, No Neck Pain, No Shortness of Air, No Slurred Speech (DHRUV PINTO MD) Allergies and Home Medications Allergies Coded Allergies: carvedilol (Verified Allergy, Unknown, 04/22/18) Patient Home Medication List Home Medication List Reviewed: Yes (DHRUV PINTO MD) Albuterol Sulfate (Ventolin Hfa) 1 Puff Puff, 2 PUFF INH Q4H PRN for SHORTNESS OF BREATH, (Reported) Entered as Reported by: THAD JIMENEZ on 02/11/20 1112 Aspirin (Aspirin) 81 Mg Tab.chew, 81 MG PO DAILY Prescribed by: DRAKE ORTIZ on 11/08/22 0914 Fluticasone Propionate (Flonase Allergy Relief) 9.9 Ml [place].susp, 2 SPRAY NS DAILY PRN for CONGESTION, (Reported) Entered as Reported by: THAD JIMENEZ on 02/11/20 1046 Furosemide (Furosemide) 40 Mg Tablet, 40 MG PO DAILY PRN for EDEMA, (Reported) Entered as Reported by: CHIP FORRESTER on 11/08/22731 Glimepiride (Glimepiride) 2 Mg Tablet, 2 MG PO DAILY, (Reported) Entered as Reported by: CHIP FORRESTER on 11/08/22731 Insulin Glargine,Hum.rec.anlog (Toujeo Solostar) 300 Unit/1 Ml Insuln.pen, 30-40 UNIT SQ DAILY, (Reported) Entered as Reported by: HEIKE DAILEY on 04/22/18 1507 Isosorbide Mononitrate (Isosorbide Mononitrate ER) 60 Mg Tab, 60 MG PO DAILY, (Reported) Entered as Reported by: HEIKE DAILEY on 04/22/18 1558 Levothyroxine Sodium (Levothyroxine Sodium) 50 Mcg Tablet, 50 MCG PO DAILY, (Reported) Entered as Reported by: HEIKE DAILEY on 04/22/18 155 Lisinopril (Lisinopril) 20 Mg Tablet, 20 MG PO BID, (Reported) Entered as Reported by: HEIKE DAILEY on 04/22/18 150 Metoprolol Succinate (Metoprolol Succinate) 25 Mg Tab.er.24h, 37.5 MG PO BID, (Reported) Entered as Reported by: CHIP FORRESTER on 11/08/22731 Omeprazole (Omeprazole) 20 Mg Capsule.dr, 20 MG PO BID, (Reported) Entered as Reported by: CHIP FORRESTER on 11/08/22731 Oxycodone HCl/Acetaminophen (Oxycodone-Acetaminophen 5-325) 1 Each Tablet, 1 EACH PO Q6H PRN for PAIN-MODERATE (5-7), (Reported) Entered as Reported by: THAD JIMENEZ on 02/11/20 1030 Rivaroxaban (Xarelto) 20 Mg Tablet, 20 MG PO DAILY, (Reported) Entered as Reported by: CHIP FORRESTER on 11/08/22731 Simvastatin (Simvastatin) 40 Mg Tablet, 40 MG PO DAILY, (Reported) Entered as Reported by: CHIP FORRESTER on 11/08/22 0732 Review of Systems Review of Systems Constitutional: see HPI; No chills, No fever Eyes: No Symptoms Reported Ears, Nose, Mouth, Throat: no symptoms reported Respiratory: No cough, No short of breath Cardiovascular: chest pain; No edema; Hx of Intervention Gastrointestinal: heartburn; No nausea, No vomiting Genitourinary: no symptoms reported Musculoskeletal: joint pain, muscle pain Skin: No change in color, No lesions Psychiatric/Neurological: Denies Headache, Denies Weakness (DHRUV PINTO MD) Past Btuhpxl-Attsyn-Bvceib Hx Patient Social History Tobacco Use?: No Use of E-Cig and/or Vaping dev: No Substance use?: No Alcohol Use?: Yes Alcohol type: Wine Alcohol Frequency: Once in a while Pt feels they are or have been: No (DHRUV PINTO MD) Immunizations Up To Date Tetanus Booster (TDap): Unknown PED Vaccines UTD: No (DHRUV PINTO MD) Seasonal Allergies Seasonal Allergies: Yes (DHRUV PINTO MD) Past Medical History Surgery/Hospitalization HX: AORTIC REPAIR, HTN, DM Surgeries: Yes (bilat TKR, TURBT) Abdominal, Cardiac, CABG, Gallbladder Respiratory: Yes Sleep Apnea, COPD Currently Using CPAP: No Currently Using BIPAP: No Cardiac: Yes (quad bypass) Atrial Fibrillation, Heart Attack Neurological: No Reproductive Disorders: No Genitourinary: Yes (hx bladder ca) Benign Prostatic Hyperpl Gastrointestinal: Yes (wt gain) Gastroesophageal Reflux Musculoskeletal: Yes Arthritis Endocrine: No Diabetes, Insulin dep HEENT: No Cancer: Yes Bladder, Skin Did You Recieve Any Treatments: Yes What Type of Treatment Did You: Chemotherapy, Surgical Intervention Psychosocial: No Integumentary: Yes Pruritis Blood Disorders: No Adverse Reaction/Blood Tranf: No (DHRUV PINTO MD) Family Medical History Reviewed Nursing Family Hx (DHRUV PINTO MD) Completed stroke 19 FATHER Diabetes mellitus 19 MOTHER SON No Pertinent Family Hx (DHRUV PINTO MD) Physical Exam Vital Signs Vital Signs - First Documented 05/10/23 05/10/23 15:16 18:07 Temp 36.4 Pulse 100 B/P (MAP) 144/92 (109) Pulse Ox 96 O2 Delivery Room Air O2 Flow Rate 0 FiO2 21 (NINA,JAYESH K DO) Vital Signs Capillary Refill : Less Than 3 Seconds (DHRUV PINTO MD) Height, Weight, BMI Height: 5'10.00" Weight: 235lbs. 3.0oz. 106.545600nf; 31.00 BMI Method:Stated General Appearance: WD/WN, no apparent distress HEENT: PERRL/EOMI, pharynx normal Neck: non-tender, full range of motion, supple, normal inspection Cardiovascular: regular rate, rhythm, no murmur, other (Tenderness to palpation left anterior upper chest wall and left shoulder) Respiratory: lungs clear, normal breath sounds Gastrointestinal: non tender, soft Back: normal inspection, no CVA tenderness, no vertebral tenderness Extremities: pelvis stable, other (Tenderness at the area of the left wrist but retains near full range of motion. No significant pain proximal humerus but does have some pain in the shoulder joint. 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.) Neurologic/Psychiatric: alert, oriented x 3 Skin: normal color, warm/dry (DHRUV PINTO MD) [place] Coma Score Best Eye Response: (4) Open Spontaneously Best Verbal Response: (5) Oriented Best Motor Response: (6) Obeys Commands (DHRUV PINTO MD) Progress/Results/Core Measures Results/Orders Lab Results Laboratory Tests Test 05/10/23 16:38 05/10/23 18:35 Range/Units White Blood Count 8.2 4.3-11.0 10^3/uL Red Blood Count 5.14 4.30-5.52 10^6/uL Hemoglobin 15.7 13.3-17.7 g/dL Hematocrit 48 40-54 % Mean Corpuscular Volume 94 80-99 fL Mean Corpuscular Hemoglobin 31 25-34 pg Mean Corpuscular Hemoglobin Concent 33 32-36 g/dL Red Cell Distribution Width 14.2 10.0-14.5 % Platelet Count 223 130-400 10^3/uL Mean Platelet Volume 10.4 9.0-12.2 fL Immature Granulocyte % (Auto) 1 % Neutrophils (%) (Auto) 72 42-75 % Lymphocytes (%) (Auto) 13 12-44 % Monocytes (%) (Auto) 11 0-12 % Eosinophils (%) (Auto) 3 0-10 % Basophils (%) (Auto) 1 0-10 % Neutrophils # (Auto) 5.9 1.8-7.8 10^3/uL Lymphocytes # (Auto) 1.0 1.0-4.0 10^3/uL Monocytes # (Auto) 0.9 0.0-1.0 10^3/uL Eosinophils # (Auto) 0.3 0.0-0.3 10^3/uL Basophils # (Auto) 0.0 0.0-0.1 10^3/uL Immature Granulocyte # (Auto) 0.0 0.0-0.1 10^3/uL Prothrombin Time 14.7 12.2-14.7 SEC INR Comment 1.1 0.8-1.4 Activated Partial Thromboplast Time 30 24-35 SEC Sodium Level 137 135-145 MMOL/L Potassium Level 4.5 3.6-5.0 MMOL/L Chloride Level 99 98-107 MMOL/L Carbon Dioxide Level 23 21-32 MMOL/L Anion Gap 15 H 5-14 MMOL/L Blood Urea Nitrogen 24 H 7-18 MG/DL Creatinine 1.54 H 0.60-1.30 MG/DL Estimat Glomerular Filtration Rate 45 BUN/Creatinine Ratio 16 Glucose Level 220 H 70-105 MG/DL Calcium Level 9.7 8.5-10.1 MG/DL Corrected Calcium 9.3 8.5-10.1 MG/DL Magnesium Level 2.8 H 1.6-2.4 MG/DL Total Bilirubin 0.5 0.1-1.0 MG/DL Aspartate Amino Transf (AST/SGOT) 26 5-34 U/L Alanine Aminotransferase (ALT/SGPT) 24 0-55 U/L Alkaline Phosphatase 60 40-136 U/L Myoglobin 157.4 H 10.0-92.0 NG/ML Troponin I < 0.028 < 0.028 <0.028 NG/ML Total Protein 7.6 6.4-8.2 GM/DL Albumin 4.5 3.2-4.5 GM/DL (NINA,JAYESH K DO) My Orders Orders - NINA,JAYESH K DO Troponin I [place] (05/10/23 18:30) Ekg Tracing (05/10/23 18:05) (NINA,JAYESH K DO) Medications Given in ED Current Medications Medications Dose Ordered Sig/Alexis Route Start Time Stop Time Status Last Admin Dose Admin Al Hydrox/Mg Hydrox/Simethicone 30 ml ONCE ONCE PO 05/10/23 16:30 05/10/23 16:31 DC 05/10/23 16:33 30 ML Lidocaine HCl 15 ml ONCE ONCE PO 05/10/23 16:30 05/10/23 16:31 DC 05/10/23 16:33 15 ML (JAYESH JI DO) Vital Signs/I&O 05/10/23 05/10/23 15:16 18:07 Temp 36.4 Pulse 100 B/P (MAP) 144/92 (109) Pulse Ox 96 O2 Delivery Room Air O2 Flow Rate 0 FiO2 21 (NINAJAYESH Tom DO) Blood Pressure Mean: 109 Progress Progress Note : Progress Note Seen and evaluated. Given patient's cardiac history and report of chest pain, we will initiate chest pain protocol including IV, labs including CBC, CMP, magnesium, troponin, myoglobin, coags as well as chest x-ray. We will get CT of the head due to report of history of anticoagulation use but also due to fall and hitting his head. We will get x-ray of the left shoulder and left wrist as well as CT of the chest due to the chest pain after fall. Monitor patient. No aspirin given as patient has already had aspirin today and also there is concern about intracranial hemorrhage. Differential diagnosis includes intracranial hemorrhage, shoulder fracture, rib fractures, lung injury, wrist fracture, cardiac event including CT 1627: I have added GI cocktail due to upset stomach with reflux that he has history of. 1702: Fentanyl 25 mcg IV ordered for pain. CBC reviewed and is grossly normal. Coags are negative. CMP reviewed and shows slightly elevated serum creatinine and elevated glucose of 220 with normal but slightly high magnesium and normal LFTs. Myoglobin slightly elevated at 157 but troponin is negative. He will need repeat troponin at 2-hour vaibhav which would be [birth year]19[birth year]. 1723: I have added hydrocodone/APAP 7.5/325 1 tab p.o. now for pain and he normally takes these at home. CT of the head shows no acute intracranial hemorrhage on my interpretation. Left shoulder x-ray shows no obvious fracture on my interpretation. Left wrist x-ray shows no obvious fracture on my interpretation. CT of the chest shows concern for anterior fourth and fifth nondisplaced rib fractures on my interpretation without lung injury. Chest x- ray shows no obvious infiltrate but there is question of left pleural effusion on my interpretation. Radiology report reviewed and compared and consistent. 1758: Care transferred to Dr. Ji pending troponin at 1830 and discharged home after if troponin remains normal. This was discussed with the patient as well who agrees. Monitor patient. RT for incentive spirometer teaching ordered. (DHRUV PINTO MD) Progress Note : Progress Note 1800--ASSUMED CARE FROM DR. PINTO, REPEAT EKG AND TROPONIN TO BE DONE AT 1830, PT IS RESTING AT THIS TIME. VITALS STABLE. INCENTIVE SPIROMETRY WITH TEACHING HAS BEEN ORDERED REPEAT EKG IS UNCHANGED, WITH CHRONIC ATRIAL FIBRILLATION REPEAT TROPONIN IS NEGATIVE VITALS ARE STABLE PT IS VERY ANXIOUS TO GO HOME, AND IS GETTING VERY VERBALLY AGGRESSIVE--YELLING, WON'T STAY IN ROOM, DEMANDING TO LEAVE. DISCUSSED TEST RESULTS, ANTICIPATED COURSE, SYMPTOMATIC TREATMENT, MEDICATIONS, INCENTIVE SPIROMETRY, NEED FOR FOLLOW UP AND RETURN PRECAUTIONS (JAYESH JI DO) Initial ECG Impression Date: May 10, 2023 Initial ECG Impression Time: 16:23 Initial ECG Rate: 99 Initial ECG Rhythm: A Fib/Flutter Comment Atrial fibrillation with rate of 99 and normal axis. No evidence of ST elevation CT. Interpreted by me. (DHRUV PINTO MD) EKG : EKG Time: 18:21 Rate: 89 Rhythm: A Fib/Flutter Intervals PA --N/A QRS 106 QT/QTC 358/405 ECG Comparisson: Unchanged ECG Impression: Atrial Fibrillation Comment INTERPRETED BY ME (JAYESH JI DO) Diagnostic Imaging Diagonstic Imaging: CT Plain Films/CT/US/NM/MRI: head Comments [facility], [place] NAME: TROY SH[facility] REC#: [id number] PT STATUS: REG ER : 1940 PHYSICIAN: DHRUV PINTO MD ADMIT DATE: 05/10/23/ER Signed Date of Exam:05/10/23 CT HEAD WO PROCEDURE: CT head without contrast. TECHNIQUE: Multiple contiguous axial images were obtained through the brain without the use of intravenous contrast. Auto Exposure Controls were utilized during the CT exam to meet ALARA standards for radiation dose reduction. INDICATION: Fall. Head injury. FINDINGS: There is advanced age-related volume loss. There are no CT findings of acute hemorrhage. There is no evidence of an abnormal extra-axial collection. There is no intracranial mass effect or shift. There is no hydrocephalus. There is no territorial loss of dasilva-white differentiation or evidence of vasogenic edema. There is no identified calvarial fracture. The mastoids are clear. There is no fluid level in the paranasal sinuses. IMPRESSION: Age-related global volume loss. No findings of hemorrhage or of an acute intracranial abnormality. Dictated by: Dictated on workstation # [id number] Dict: 05/10/23 1605 Trans: 05/10/23 1643 [id number] Interpreted by: INDU PATINO MD Electronically signed by: INDU PATINO MD 05/10/233 Reviewed: Reviewed by Me Diagonstic Imaging: CT Plain Films/CT/US/NM/MRI: chest Comments [facility], [place] NAME: TROY SH[facility] REC#: [id number] PT STATUS: REG ER : 1940 PHYSICIAN: DHRUV PINTO MD ADMIT DATE: 05/10/23/ER Signed Date of Exam:05/10/23 CT CHEST WO PROCEDURE: CT chest without contrast. TECHNIQUE: Multiple contiguous axial images were obtained through the chest without the use of intravenous contrast. Auto Exposure Controls were utilized during the CT exam to meet ALARA standards for radiation dose reduction. INDICATION: Fall. Now with left chest pain. COMPARISON: Chest CT of 08/04/2019. FINDINGS: There are nondisplaced fractures of the anterior/distal aspects of the left 4th and 5th ribs. No chest wall hematoma. No pneumothorax. No lung contusion or pulmonary laceration. There is trace dependent basilar atelectasis, greater left. No hemothorax. Aortic stent graft device and match-e-be-nash-she-wish band coronary atherosclerosis with previous sternotomy and CABG present. No sternal dehiscence. The right ribs are intact. No retrosternal hematoma. No lung mass. No thoracic adenopathy. No findings of edema or pneumonia. IMPRESSION: 1. Left 4th and 5th rib fractures anteriorly are nondisplaced. No pulmonary parenchymal or pleural injury. Slight basilar atelectasis. Prior sternotomy without dehiscence. No effusion or pneumothorax. 2. Not mentioned above, the visible upper abdomen shows renal cysts with no acute appearing abnormality. Dictated by: Dictated on workstation # [id number] Dict: 05/10/23 1602 Trans: 05/10/231615 UMU [id number] Interpreted by: LEE ANN GUAMAN Electronically signed by: LEE ANN GUAMAN 05/10/231615 Reviewed: Reviewed by Ut Diagonstic Imaging: Xray Plain Films/CT/US/NM/MRI: chest [facility] [place] [place] NAME: [facility] SH[facility] REC#: [id number] PT STATUS: REG ER : 1940 PHYSICIAN: DHRUV PINTO MD ADMIT DATE: 05/10/23/ER Signed Date of Exam:05/10/23 CHEST 1 VIEW, AP/PA ONLY INDICATION: Fall. Left-sided chest soreness. FINDINGS: The patient is status post sternotomy and bypass grafting. Enlargement of the cardiac silhouette is unchanged from prior examinations. The right lung is clear. The left lung demonstrates hazy density at the left base with obscuration of the left hemidiaphragm. Left-sided pleural fluid or blood could not be excluded. There is no pneumothorax. There also appear to likely be a couple of left lateral rib fractures inferiorly. IMPRESSION: There are probable left lateral and inferior rib fractures with a small degree of obscuration of the left hemidiaphragm and blunting of the costophrenic angle which may reflect a small effusion or minimal blood. There is no identified pneumothorax. The right lung is clear. Dictated by: Dictated on workstation # [id number] Dict: 05/10/23 161 Trans: 05/10/231642 UMU [id number] Interpreted by: INDU PATINO MD Electronically signed by: INDU PATINO MD 05/10/231642 Reviewed: Reviewed by Ut Diagonstic Imaging: Xray Plain Films/CT/US/NM/MRI: other Comments [facility], [place] NAME: TROY SHAH [facility] REC#: [id number] PT STATUS: REG ER : 1940 PHYSICIAN: DHRUV PINTO MD ADMIT DATE: 05/10/23/ER Signed Date of Exam:05/10/23 SHOULDER, LEFT, 3 VIEWS INDICATION: Left shoulder pain. Fall. FINDINGS: There are no findings of glenohumeral dislocation or AC joint separation. The humeral head is high riding, suggesting underlying rotator cuff tear. There is no acute fracture or suspicious bone lesion. There is no fracture of the clavicle or scapula. 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 No findings of dislocation or acute fracture. Dictated by: Dictated on workstation # [id number] Dict: 05/10/23 1613 Trans: 05/10/23 1643 [id number] Interpreted by: INDU PATINO MD Electronically signed by: INDU PATINO MD 05/10/23 1643 Reviewed: Reviewed by Ut Diagonstic Imaging: Xray Plain Films/CT/US/NM/MRI: other Comments [facility], [place] NAME: TROY SH[facility] REC#: [id number] PT STATUS: REG ER : 1940 PHYSICIAN: DHRUV PINTO MD ADMIT DATE: 05/10/23/ER Signed Date of Exam:05/10/23 WRIST, LEFT, 3 VIEWS OR MORE INDICATION: Left wrist pain. Fall. FINDINGS: The bones are of low bone mineral density. There is no cortical disruption demonstrated of the distal radius or the ulna. There is no acute carpal fracture. There is widening of the scapholunate interval, suggesting a prior scapholunate ligament tear. There is radiocarpal joint space narrowing. There is no identified acute carpal fracture. Arthritic changes are present at the base of the thumb. There are advanced atherosclerotic calcifications. 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 There is no acute fracture or malalignment. Dictated by: Dictated on workstation # [id number] Dict: 05/10/23 1616 Trans: 05/10/23 1643 [id number] Interpreted by: INDU PATINO MD Electronically signed by: INDU PATINO MD 05/10/231642 Reviewed: Reviewed by Me (DHRUV PINTO MD) Departure Impression Primary Impression: Rib fractures Qualified Codes: S22.42XA - Multiple fractures of ribs, left side, initial encounter for closed fracture Additional Impressions: Shoulder contusion Qualified Codes: S40.012A - Contusion of left shoulder, initial encounter Wrist contusion Qualified Codes: S60.212A - Contusion of left wrist, initial encounter Chest pain Qualified Codes: R07.9 - Chest pain, unspecified Disposition: 01 HOME, SELF-CARE Condition: Stable Departure-Patient Inst. Decision time for Depature: 19:12 (JAYESH JI DO) Referrals: PAUL PHAN DO (PCP/Family) Primary Care Physician Patient Instructions: Rib Fracture (DC), General Trauma (DC) Add. Discharge Instructions: USE INCENTIVE SPIROMETER EVERY 1-2 HOURS WHILE AWAKE TAKE YOUR HYDROCODONE FOR PAIN FOLLOW UP WITH YOUR DR THIS WEEK FOR FURTHER CARE, RETURN TO ER IF SYMPTOMS WORSEN All discharge instructions reviewed with patient and/or family. Voiced understanding. Copy Copies To 1: PAUL PHAN TIMOTHY D MD May 10, 2023 17:40 JAYESH JI DO May 10, 2023 18:21
[2023-05-10 19:14] VITALS: BP 125/87
== END 2023-05-10 19:16 | disposition home or self-care (01) ==
LOC: EDUNIT# 15:02 → ER 15:04
DX: S22.42XA Multiple fractures of ribs, left side, initial encounter for closed fracture (principal); S40.012A Contusion of left shoulder, initial encounter; S60.212A Contusion of left wrist, initial encounter; Z79.82 Long term (current) use of aspirin; W01.0XXA Fall on same level from slipping, tripping and stumbling without subsequent striking against object, initial encounter; Y93.01 Activity, walking, marching and hiking; Y92.59 Other trade areas as the place of occurrence of the external cause
CPT/HCPCS: 36415; 70450; 71045; 71250; 73030; 73110; 80053; 83735; 83874; 84484; 85025; 85610; 85730; 93005; 93041; 94664; 96374